=== PATIENT | female | born 1965 | race Caucasian/White ===

== ENCOUNTER 2020-02-20 14:29 | Outpatient (REF) | payer OTHER, SELFPAY ==
[2020-02-20 16:18] LABS: Free T4 (Free Thyroxine) 0.83 ng/dL (0.71-1.85); Vitamin D 25-OH Total 19.6 ng/mL (>30)
== END 2020-02-20 14:30 | disposition home or self-care (01) ==
LOC: HO.LAB 14:29
PROVIDERS: PCP Internal Medicine; Visit Provider Internal Medicine
DX: E04.2 Nontoxic multinodular goiter (principal); E03.9 Hypothyroidism, unspecified; E55.9 Vitamin D deficiency, unspecified
CPT/HCPCS: 36415; 82306; 84439; 84443

== ENCOUNTER 2020-09-22 08:19 | Outpatient (REF) | payer OTHER, SELFPAY | END 2020-09-22 08:20 | disposition home or self-care (01) | LOC: HO.HOSX 08:19 | PROVIDERS: Visit Provider Orthopaedic Surgery | DX: Z13.89 Encounter for screening for other disorder (principal) ==

== ENCOUNTER 2020-10-06 13:52 | Outpatient (REF) | payer OTHER, SELFPAY ==
--- NOTE | ~2020-10-06 | XR_ITS ---
EXAMINATION: XR SHOULDER, RIGHT CLINICAL INFORMATION: Right shoulder pain. COMPARISON: Right shoulder radiographs dated 04/10/2007. TECHNIQUE: AP, Grashey, and axillary views of the right shoulder. FINDINGS: No acute fracture or dislocation. Tiny acromioclavicular and glenohumeral marginal osteophytes. No osseous erosion. No abnormal soft tissue calcification. XR/XR shoulder RT min 2V IMPRESSION: Minimal acromioclavicular and glenohumeral osteoarthritis, new when compared to the prior examination.
== END 2020-10-06 13:53 | disposition home or self-care (01) ==
LOC: HO.HOSX 13:52
PROVIDERS: PCP Internal Medicine; Visit Provider Orthopaedic Surgery
DX: M75.101 Unspecified rotator cuff tear or rupture of right shoulder, not specified as traumatic (principal)
CPT/HCPCS: 20610; 73030; 99202; J1100

== ENCOUNTER 2020-12-03 13:56 | Outpatient (REF) | payer OTHER, SELFPAY ==
--- NOTE | ~2020-12-03 | MM_ITS ---
EXAMINATION: MM SCREENING DIGITAL BREAST TOMOSYNTHESIS, BILATERAL CLINICAL INFORMATION: Screening. Asymptomatic. The lifetime risk of breast cancer based on the Tyrer-Cuzick Model is 8%. COMPARISON: Mammography: 07/25/2018, 07/15/2017, 07/12/2016 TECHNIQUE: Digital breast tomosynthesis is performed in both the craniocaudal and mediolateral oblique views along with computer-aided detection (CAD). Synthesized 2D images are generated from the tomosynthesis. FINDINGS: The breasts are heterogeneously dense, which may obscure small masses (ACR BI-RADS breast composition Category c). There are no significant masses, abnormal calcifications, or other abnormalities. Parenchymal pattern is similar to prior exam. No developing density. There are some scattered punctate and vascular calcifications. Grouped incidental dermal calcifications are again noted overlying 9:00 left breast. MM/MM tomosynthesis screening BI IMPRESSION: No mammographic evidence of malignancy. ASSESSMENT: BI-RADS 2: Benign RECOMMENDATION: Routine annual mammography screening. This patient's information was entered into a reminder system with a target due date for their next mammogram.
== END 2020-12-03 13:57 | disposition home or self-care (01) ==
LOC: HO.MAMMO 13:56
PROVIDERS: PCP Internal Medicine; Visit Provider Internal Medicine
DX: Z12.31 Encounter for screening mammogram for malignant neoplasm of breast (principal)
CPT/HCPCS: 77063; 77067

== ENCOUNTER → 2020-12-22 08:41 | Outpatient (BNVA) | payer OTHER, SELFPAY | PROVIDERS: PCP Internal Medicine; Visit Provider Internal Medicine | DX: E04.2 Nontoxic multinodular goiter (principal); E03.9 Hypothyroidism, unspecified; E55.9 Vitamin D deficiency, unspecified | CPT/HCPCS: Q3014 ==

== ENCOUNTER 2020-12-23 09:12 | Outpatient (REF) | payer OTHER, SELFPAY ==
[2020-12-23 11:48] LABS: Free T4 (Free Thyroxine) 1.06 ng/dL (0.71-1.85); Vitamin D 25-OH Total 19.8 ng/mL (>30)
== END 2020-12-23 09:13 | disposition home or self-care (01) ==
LOC: HO.LAB 09:12
PROVIDERS: PCP Internal Medicine; Visit Provider Internal Medicine
DX: E03.9 Hypothyroidism, unspecified (principal); E04.2 Nontoxic multinodular goiter; E55.9 Vitamin D deficiency, unspecified
CPT/HCPCS: 36415; 82306; 84439; 84443

== ENCOUNTER 2021-02-02 09:53 | Outpatient (REF) | payer OTHER, SELFPAY ==
[2021-02-02 14:17] LABS: CT PCR NOT DETECTED (Not Detect.); NG PCR NOT DETECTED (Not Detect.)
== END 2021-02-02 09:54 | disposition home or self-care (01) ==
LOC: HO.LAB 09:53
PROVIDERS: PCP Internal Medicine; Visit Provider Obstetrics & Gynecology
DX: R10.2 Pelvic and perineal pain (principal); N84.1 Polyp of cervix uteri; N39.0 Urinary tract infection, site not specified; R31.29 Other microscopic hematuria; N95.0 Postmenopausal bleeding
CPT/HCPCS: 57500; 87086; 87491; 87591; 88305; 99212

== ENCOUNTER 2021-02-04 13:57 | Outpatient (REF) | payer OTHER, SELFPAY ==
--- NOTE | ~2021-02-04 | US_ITS ---
EXAMINATION: US THYROID CLINICAL INFORMATION: Nontoxic multinodular goiter. COMPARISON: Ultrasound thyroid 08/09/2019 and 12/16/2017. TECHNIQUE: Linear transducer grayscale and color Doppler examination with attention to the region of the thyroid. FINDINGS: SIZE: Measurements of the solitary left thyroid lobe and nodules are given in sagittal, anteroposterior and transverse dimensions respectively. Right Thyroid Lobe: Surgically absent. Left Thyroid Lobe: 3.9 x 1.7 x 2.3 cm, volume 7.8 mL. Previously 4.3 x 1.9 x 2.2 cm, volume 9.1 mL. Parenchyma: The gland echotexture is heterogeneous. Thyroid vascularity is increased. Isthmus: Surgically absent. Estimated total number of nodules greater than or equal to 1 cm: 2. Education Program Coordinator nodules are described as follows: 1. Location: Left upper. Size: 1.7 x 1.2 x 1.4 cm, volume 1.5 mL. Previously: Not documented on the prior study. Nodule characteristics: Composition: Solid (2). Echogenicity: Isoechoic (1). Shape: Not taller than wide (0). Margins: Smooth (0). Echogenic Foci: None (0). ACR TI-RADS total points: 3 ACR TI-RADS category: 3 2. Location: Left lower pole. Size: 1.5 x 1.3 x 1.4 cm, volume 1.4 mL. Previously: Not documented on the prior study. Nodule characteristics: Composition: Solid/almost completely solid (2). Echogenicity: Isoechoic (1). Shape: Not taller than wide (0). Margins: Ill-defined (0). Echogenic Foci: Macrocalcifications (1). ACR TI-RADS total points: 4 ACR TI-RADS category: 4 NODES: No lymphadenopathy is seen in the tissue surrounding the thyroid gland. US/US thyroid IMPRESSION: 1. Significantly heterogeneous appearance of the thyroid gland. 2. 2 nodules are identified, however evaluation is limited secondary to significant heterogeneity. Recommend continued annual surveillance. ACR TI-RADS RECOMMENDATION REFERENCE: Ultrasound-guided fine-needle aspiration, followup ultrasound, no further follow up. * TR1 (0 point) and TR 2 (2 points): No FNA or follow up * TR3 (3 points): FNA if more than or equal to 2.5 cm in maximum dimension, followup ultrasound in 1, 3 and 5 years if 1.5 to 2.4 cm in maximum dimension. * TR4 (4-6 points): FNA if more than or equal to 1.5 cm in maximum dimension, followup ultrasound in 1, 2, 3 and 5 years if 1 to 1.4 cm in maximum dimension. * TR5 (more than or equal to 7 points): FNA if more than or equal to 1 cm in maximum dimension, followup ultrasound every year for 5 years if 0.5 to 0.9 cm in maximum dimension. * TR3, TR4 or TR5 nodules that are below the size threshold for follow up receive no follow up.
== END 2021-02-04 13:58 | disposition home or self-care (01) ==
LOC: HO.US 13:57
PROVIDERS: Visit Provider Internal Medicine
DX: E04.2 Nontoxic multinodular goiter (principal)
CPT/HCPCS: 76536

== ENCOUNTER 2021-02-18 07:45 | Outpatient (REF) | payer OTHER, SELFPAY ==
[2021-02-18 17:08] LABS: Free T4 (Free Thyroxine) 0.87 ng/dL (0.71-1.85); Vitamin D 25-OH Total 24.9 ng/mL (>30)
== END 2021-02-18 07:46 | disposition home or self-care (01) ==
LOC: HO.LAB 07:45
PROVIDERS: PCP Internal Medicine; Visit Provider Internal Medicine
DX: E03.9 Hypothyroidism, unspecified (principal); E04.2 Nontoxic multinodular goiter; E55.9 Vitamin D deficiency, unspecified
CPT/HCPCS: 36415; 82306; 84439; 84443; Q3014

== ENCOUNTER → 2021-02-19 12:52 | Outpatient (BNVA) | payer OTHER, SELFPAY | PROVIDERS: Visit Provider Obstetrics & Gynecology | DX: N84.1 Polyp of cervix uteri (principal); R31.29 Other microscopic hematuria; N95.0 Postmenopausal bleeding; R10.2 Pelvic and perineal pain | CPT/HCPCS: 99212 ==

== ENCOUNTER 2021-02-23 14:29 | Outpatient (REF) | payer OTHER, SELFPAY ==
--- NOTE | ~2021-02-23 | US_ITS ---
EXAMINATION: US PELVIS CLINICAL INFORMATION: Postmenopausal bleeding COMPARISON: Previous pelvic ultrasound most recent May 2018 TECHNIQUE: Ultrasound of the pelvis is performed using both transabdominal and transvaginal transducers along with Doppler. Transvaginal imaging is performed due to inadequate visualization transabdominally. FINDINGS: The uterus is anteverted and measures 6.9 x 3 x 3.4 cm. No focal uterine lesion is seen. Endometrial thickness is upper normal in size for a postmenopausal patient measuring 0.6 cm. The ovaries are normal-appearing. The right ovary measures 1.8 x 1.3 x 1.3 cm and the left ovary measures 2.1 x 1.3 x 1 cm. There is no fluid in the pelvis. US/US pelvic and transvaginal IMPRESSION: Upper normal thickness endometrium for a postmenopausal patient measuring 0.6 cm. Otherwise unremarkable exam.
== END 2021-02-23 14:30 | disposition home or self-care (01) ==
LOC: HO.US 14:29
PROVIDERS: PCP Internal Medicine; Visit Provider Obstetrics & Gynecology
DX: N95.0 Postmenopausal bleeding (principal)
CPT/HCPCS: 76830; 76856

== ENCOUNTER → 2021-03-09 14:47 | Outpatient (BNVA) | payer OTHER, SELFPAY | PROVIDERS: Visit Provider Obstetrics & Gynecology | DX: N95.0 Postmenopausal bleeding (principal) | CPT/HCPCS: Q3014 ==

== ENCOUNTER 2021-08-04 10:11 | Outpatient (REF) | payer OTHER, SELFPAY ==
--- NOTE | ~2021-08-04 | US_ITS ---
EXAMINATION: US ABDOMEN COMPLETE CLINICAL INFORMATION: Elevated alkaline phosphatase. COMPARISON: CT abdomen and pelvis without contrast every 20 09/26/2017. Ultrasound abdomen complete 06/13/2013. TECHNIQUE: Real-time imaging of the abdominal viscera. FINDINGS: PANCREAS: Normal. ABDOMINAL AORTA: The proximal, mid, and distal segments are normal in caliber. INFERIOR VENA CAVA: Visualized portions are normal. LIVER: The liver is normal in size. The liver contour is normal. Liver echotexture is increased. No focal hepatic lesion. There is no intrahepatic biliary duct dilatation seen. GALLBLADDER: Surgically absent. COMMON BILE DUCT: Normal in caliber measuring 0.4 cm in diameter. RIGHT KIDNEY: There is fullness of the right renal pelvis versus extrarenal pelvis. There are small stones measuring 4 mm in the upper pole and 3 mm in the midpole. No hydronephrosis or focal parenchymal lesions. The kidney measures 9.3 cm in maximum dimension. LEFT KIDNEY: There is a 4 mm stone in the midpole. There is a 7 mm cyst in the lower pole. No hydronephrosis. The kidney measures 9.2 cm in maximum dimension. SPLEEN: Normal. The spleen measures 11.1 cm in maximum dimension. FREE FLUID: None. US/US abdomen complete IMPRESSION: Small bilateral renal stones. Small left renal cyst. Mild fullness of the right renal pelvis versus extrarenal pelvis. Echogenic liver. Differential would include fatty infiltration and hepatocellular disease.
== END 2021-08-04 10:12 | disposition home or self-care (01) ==
LOC: HO.US 10:11
PROVIDERS: PCP Internal Medicine; Visit Provider Internal Medicine
DX: R74.8 Abnormal levels of other serum enzymes (principal)
CPT/HCPCS: 76700

== ENCOUNTER 2021-08-27 09:31 | Outpatient (REF) | payer OTHER, SELFPAY ==
--- NOTE | 2021-08-27 10:22 | PM.OP ---
Brief Operative Note Date of Service: 08/27/21 Pre-op diagnosis: Multinodular Thyroid Procedure: This is doctor Le Sanchez. This is an ultrasound-guided fine-needle aspiration report. Date of Examination: 08/27/2021 Indication: Multinodular Thyroid Porcedure: Procedure was explained to the patient. Alternatives, the risk and benefits were discussed. Written consent was obtained. A time-out was also obtained. After sterile preparation, fine-needle aspiration of a left lower pole 3.5 cm thyroid nodule was performed using direct ultrasound guidance to confirm accurate needle placement. Four aspirations were made using 27 gauge needles. Samples were submitted for cytology. One pass was dedicated for [employer] sequencing applicator sprayer testing. Our attention was then turned to the left upper pole. Fine-needle aspiration of a left upper pole 1.5 cm thyroid nodule was performed using direct ultrasound guidance to confirm accurate needle placement. Four aspirations were made using 27 gauge needles. Samples were submitted for cytology. One pass was dedicated for [employer] Gene sequencing applicator sprayer testing. The patient tolerated the procedure well. Aftercare instructions were provided. Impression: Uncomplicated fine needle aspiration biopsy of a left lower pole 3.5 cm and a left upper pole 1.5 cm thyroid nodule under ultrasound guidance. Of note the L lobe nodule has significant enlarged and we did discuss a left lobectomy today. Surgeon: eL Sanchez, DO Was an Hammersmith Helper used for this Procedure?: No Estimated blood loss (mL): 0
[2021-08-27] MEDS: Lidocaine HCl 1 % MPF 5 ML VIAL SUBCUT (10:44)
[2021-08-27 11:57] LABS: Albumin Level 4.1 g/dL (3.5-5.0); Calcium 9.1 mg/dL (8.4-10.2); Estimated Glomerular Filt Rate 59; Phosphorus 3.3 mg/dL (2.7-4.5)
[2021-08-27 12:17] LABS: Vitamin D 25-OH Total 20.5 ng/mL (>30)
[2021-08-28 11:17] LABS: Calcium (PTHI) 9.3 mg/dL (8.6-10.4); PTHI 60 pg/mL (16-77)
== END 2021-08-27 09:32 | disposition home or self-care (01) ==
LOC: HO.US 09:31
PROVIDERS: Visit Provider Internal Medicine
DX: E04.2 Nontoxic multinodular goiter (principal); E03.9 Hypothyroidism, unspecified; E55.9 Vitamin D deficiency, unspecified
CPT/HCPCS: 10005; 36415; 82040; 82306; 82310; 82565; 83970; 84100; 84439; 84443; 88172; 88173; 88177

== ENCOUNTER 2022-04-05 14:15 | Outpatient (REF) | payer OTHER, SELFPAY ==
[2022-04-05 14:24] LABS: MANUAL DIFF FLAG NO
[2022-04-05 16:02] LABS: Basophils Percent Auto 0.5 % (0-2); Eosinophils Absolute Auto 0.2 X10*3/uL (0.0-0.4); Eosinophils Percent Auto 2.3 % (0-4); Hematocrit 46.7 % (37.0-47.0); Hemoglobin 15.3 g/dl (12.0-16.0); Imm Gran Abs Auto 0.04 X10*3/uL (0.00-0.03); Imm Gran Pct Auto 0.6 % (0.0-0.4); Lymphocytes Absolute Auto 1.9 X10*3/uL (1.2-4.9); Lymphocytes Percent Auto 28.4 % (20-40); Mean Corpuscular HGB Conc 32.8 g/dl (31.0-35.0); Mean Corpuscular Hemoglobin 29.5 pg (27.0-33.0); Mean Platelet Volume 10.3 fL (9.4-12.3); Monocytes Absolute Auto 0.6 X10*3/uL (0.1-1.2); Monocytes Percent Auto 8.6 % (2-11); Neutrophils Absolute Auto 3.9 x10*3/uL (2.0-8.3); Neutrophils Percent Auto 59.6 % (45-73); Platelet Count 227 X10*3/uL (160-400); Red Blood Count 5.19 X10*6/uL (4.20-5.50); Red Cell Distribution Width 13.1 % (11.0-16.0); White Blood Count 6.6 X10*3/uL (4.8-10.8)
[2022-04-05 16:47] LABS: Free T4 (Free Thyroxine) 1.03 ng/dL (0.71-1.85)
[2022-04-05 16:57] LABS: Alanine Aminotransferase 36 U/L (0-31); Albumin Level 4.1 g/dL (3.5-5.0); Alkaline Phosphatase 141 U/L (39-117); Anion Gap 14 (12-20); Aspartate Amino Transferase 24 U/L (5-31); Bilirubin Total 0.4 mg/dL (0.0-1.0); Blood Urea Nitrogen 13 mg/dL (9-16); Calcium 9.4 mg/dL (8.4-10.2); Carbon Dioxide 28 mmol/L (22-29); Chloride 105 mmol/L (96-108); Estimated Glomerular Filt Rate > 60; Ferritin 45 ng/mL (10-250); Glucose Random 90 mg/dL (60-115); Sodium 143 mmol/L (135-145); Thyroid Stimulating Hormone 4.89 uIU/mL (0.32-4.0); Total Protein 6.6 g/dL (6.5-8.0)
== END 2022-04-05 14:16 | disposition home or self-care (01) ==
LOC: HO.LAB 14:15
PROVIDERS: Internal Medicine Medical Oncology; PCP Internal Medicine; Visit Provider Internal Medicine
DX: D50.9 Iron deficiency anemia, unspecified (principal); E03.9 Hypothyroidism, unspecified
CPT/HCPCS: 36415; 80053; 82728; 84439; 84443; 85025

== ENCOUNTER 2022-04-21 20:11 | Emergency (ER) | payer OTHER, SELFPAY ==
--- NOTE | ~2022-04-21 | CT_ITS ---
EXAMINATION: CT CERVICAL SPINE WITHOUT CONTRAST CLINICAL INFORMATION: Fall downstairs. COMPARISON: MR cervical spine 06/30/2017. TECHNIQUE: Contiguous axial imaging was performed of the cervical spine without intravenous administration of contrast. Coronal and sagittal reformats were obtained at the acquisition workstation. This CT examination was performed using dose optimization techniques as appropriate, variously including the following: *Automated exposure control *Adjustment of mA and/or kV according to patient size (this includes techniques or standardized protocols for targeted exams where dose is matched to indication/reason for exam; i.e. extremities or head) *Use of iterative reconstruction technique DLP: 323 mGy-cm FINDINGS: The atlantooccipital and atlantoaxial articulations remain well aligned. Straightening of the normal cervical lordosis. Otherwise, there is anatomic alignment of the vertebral bodies and posterior elements. No evidence of acute fracture or subluxation. Mild multilevel cervical spondylosis. There is no prevertebral soft tissue swelling. Asymmetric enlargement of the left lobe of the thyroid, possibly prior right partial thyroidectomy. The left lobe of the thyroid is heterogeneous with scattered calcifications. Bilateral multilevel prominent cervical lymph nodes measuring up to 0.8 cm in short axis. The lung apices demonstrate no abnormalities. CT/CT cervical spine wo IV con IMPRESSION: 1. No acute cervical spinal fractures or malalignment. 2. Asymmetric enlargement of the left lobe of the thyroid with scattered calcifications. Recommend correlation with an elective targeted ultrasound. 3. Scattered prominent bilateral cervical lymph nodes, nonspecific and possibly reactive.
--- NOTE | ~2022-04-21 | XR_ITS ---
EXAMINATION: XR SHOULDER, LEFT CLINICAL INFORMATION: Left-sided shoulder pain COMPARISON: None available. TECHNIQUE: Two views of the left shoulder. FINDINGS: The bones and soft tissues are normal. No fracture. Glenohumeral and acromioclavicular alignment is anatomic with normal joint space. No abnormal soft tissue calcifications. XR/XR shoulder LT min 2V IMPRESSION: Normal left shoulder.
--- NOTE | ~2022-04-21 | XR_ITS ---
EXAMINATION: XR LUMBOSACRAL SPINE CLINICAL INFORMATION: Midline tenderness to palpation COMPARISON: None available. TECHNIQUE: Three views of the lumbosacral spine. FINDINGS: Mild left convex curvature of the lumbar spine. Vertebral body and disc height is maintained. No significant degenerative changes. No visible spondylolysis or spondylolisthesis. Sacroiliac joints are unremarkable. XR/XR lumbar spine 2-3V IMPRESSION: Mild curvature of the lumbar spine. No acute findings are seen.
--- NOTE | 2022-04-21 20:32 | ED_ITS ---
HPI - Fall General Chief Complaint: Back Pain/Injury <ERICA Vargas - Last Filed: 04/21/22 20:57> Stated Complaint: neck pain from fall <ERICA Vargas - Last Filed: 04/21/22 20:57> Time Seen by Provider: 04/21/22 21:36 <ERICA Vargas - Last Filed: 04/21/22 20:57> Source: patient <Gautam Alcaraz MD - Last Filed: 04/21/22 21:39> Mode of arrival: ambulatory <Gautam Alcaraz MD - Last Filed: 04/21/22 21:39> Limitations: no limitations <ERICA Mulligan - Last Filed: 04/21/22 22:34> History of Present Illness HPI Narrative: This is a 56-year-old female history of iron deficiency anemia hypothyroidism presenting to the emergency department for evaluation of left- sided neck pain, lower back pain status post falling off a small ladder at home. Patient tells me she fell onto her side, she did not hit her head or neck however when she went to get up she moved quickly and since then has been having left-sided neck pain that radiates to around her left shoulder blade. Denies head strike, loss of consciousness. Not on blood thinners. Also reporting lower back pain tells me it is worse with movement better at rest. She also tells me it is worse if she presses on the area. Patient denies IV drug abuse, history of malignancy, numbness, tingling, saddle paresthesias, weakness, changes in ambulation, urinary/bowel incontinence/retention, fevers, chills, chest pain, shortness of breath, headache, vision changes, dizziness. GCS of 15 on arrival. NIH stroke scale 0 <ERCIA Mulligan - Last Filed: 04/21/22 22:34> Related Data Home Medications: Home Medications Medication Instructions Recorded Confirmed acetaminophen 650 mg 650 mg PO Q12H PRN Pain 12/20/19 02/18/21 tablet,extended release loratadine 10 mg tablet 10 mg PO DAILY 12/20/19 02/18/21 mirtazapine 45 mg tablet 45 mg PO DAILY 12/20/19 02/18/21 nortriptyline 50 mg capsule 50 mg PO DAILY 12/20/19 02/18/21 quetiapine 100 mg tablet 100 mg PO DAILY 12/20/19 02/18/21 sumatriptan succinate 100 mg tablet 100 mg PO Q2-4H PRN Headache 12/20/19 02/18/21 sertraline 100 mg tablet 150 mg PO QAM 10/06/20 02/18/21 Previous Rx's Medication Instructions Recorded naproxen 500 mg tablet,delayed 500 mg PO BID PRN for pain #60 tabs 12/22/20 release nitrofurantoin 100 mg PO BID 5 days #10 caps 02/02/21 monohydrate/macrocrystals 100 mg capsule (Macrobid) levothyroxine 50 mcg tablet 50 mcg PO DAILY 30 days #30 tabs 08/27/21 lidocaine 5 % topical patch 1 patch topical DAILY PRN pain #15 04/21/22 ea morphine 15 mg immediate release 15 mg PO Q6H PRN pain 5 days #10 04/21/22 tablet tabs prednisone 20 mg tablet 40 mg PO DAILY 5 days #10 tabs 04/21/22 <ERICA Vargas - Last Filed: 04/21/22 20:57> Allergies/Adverse Reactions: Allergies Allergy/AdvReac Type Severity Reaction Status Date / Time acetaminophen [Vicodin] Allergy Unknown unk Verified 04/21/22 20:36 Penicillins AdvReac Mild HYPERTENSIO Verified 04/21/22 20:36 N hydrocodone [From VICODIN] AdvReac Unknown HIGH BP Verified 04/21/22 20:36 <ERICA Vargas Last Filed: 04/21/22 20:57> Review of Systems Review of Systems: Constitutional : No Weight loss, No Fever, No Chills, ENT/Mouth : No Hearing loss, No Ear Pain, No Nasal Congestion, No Sinus Pain, No Hoarseness, No sore throat, No Rhinorrhea, No Swallowing Difficulty Cardiovascular : No Chest Pain, No SOB Respiratory : No Cough, No Dyspnea Gastrointestinal : No Nausea, No Vomiting, No Diarrhea, No abdominal Pain, No Hematochezia, No Melena Genitourinary : No Dysuria, No Urinary Frequency, No Hematuria, No Urinary Incontinence, Musculoskeletal : positive back pain, + neck pain Skin : No Skin Lesions, No rash Neuro : No Weakness, No Numbness, No Paresthesias, no loss of bowel or bladder incontinence, no saddle anesthesia <ERICA Mulligan - Last Filed: 04/21/22 22:34> Yes all other systems are reviewed and are negative <ERICA Mulligan - Last Filed: 04/21/22 22:34> FORMERLY [facility] Past Medical History Attestation statement: The following information was validated with the patient. <ERICA Mulligan - Last Filed: 04/21/22 22:34> Source: old records reviewed and nursing notes reviewed <ERICA Mulligan - Last Filed: 04/21/22 22:34> Medical History: Medical History Hypothyroidism Multinodular thyroid Vitamin D deficiency <ERICA Vargas - Last Filed: 04/21/22 20:57> Surgical History: Surgical History Hx of appendectomy Hx of cholecystectomy Hx of epicondylectomy Hx of foot surgery Hx of thyroidectomy Tubal ligation status <ERICA Vargas - Last Filed: 04/21/22 20:57> Family History Family History: Family History Father No problems noted. Mother Breast cancer Hypertension <EIRCA Vargas - Last Filed: 04/21/22 20:57> Social History Social History: Social History Alcohol intake: never Patient Tobacco Use Status: Never used Tobacco Advance Directives: No Advance Directives Information Provided: No <ERICA Vargas - Last Filed: 04/21/22 20:57> Physical Exam Vital Signs: Vital Signs: Last Vital Signs Temp 98.2 F 04/21/22 20:49 Pulse 82 04/21/22 20:49 Resp 16 04/21/22 20:49 BP 155/81 H 04/21/22 20:49 Pulse Ox 99 04/21/22 20:49 O2 Del Method 04/21/22 20:49 BMI result Body Mass Index 21.2 <ERICA Vargas - Last Filed: 04/21/22 20:57> Vital Signs: Last Vital Signs Temp 98.2 F 04/21/22 20:49 Pulse 82 04/21/22 20:49 Resp 16 04/21/22 20:49 BP 155/81 H 04/21/22 20:49 Pulse Ox 99 04/21/22 20:49 O2 Del Method 04/21/22 20:49 BMI result Body Mass Index 21.2 <Gautam Alcaraz MD - Last Filed: 04/21/22 21:39> Vital Signs: Last Vital Signs Temp 98.2 F 04/21/22 20:49 Pulse 82 04/21/22 20:49 Resp 16 04/21/22 20:49 BP 155/81 H 04/21/22 20:49 Pulse Ox 99 04/21/22 20:49 O2 Del Method 04/21/22 20:49 BMI result Body Mass Index 21.2 Vital signs stable <ERICA Mulligan - Last Filed: 04/21/22 22:34> Appearance: Alert.? Oriented X3.? No acute distress.? Head: Normocephalic, atraumatic, no step-offs or deformities Eyes: Pupils equal, round and reactive to light.? Extraocular movements intact and pain-free. Neck: Normal inspection.? No midline tenderness to cervical spine. Pain with palpation to left-sided paraspinous muscles in the cervical region down into the left trapezius region. CVS: Normal heart rate and rhythm.? Pulses normal.? Respiratory: No respiratory distress.? Breath sounds normal.? Abdomen: Soft and nontender.? Skin: Skin warm and dry.? Normal skin color.? Normal skin turgor.? Extremities: No lower extremity edema.? No calf ttp. 5/5 strength to bilateral upper and lower extremities Back: No midline tenderness, no C-spine tenderness, full range of motion, no CVA tenderness bilaterally + discomfort with palpation of bilateral lower lumbar paraspinous muscles. I was unable to appreciate any midline tenderness or step- offs or deformities. Neuro: Oriented X 3.? No motor deficit.? No sensory deficit. CN 2-12 intact patient ambulating with steady gait normal coordination. No saddle paresthesias. 2+ patellar reflexes equal bilateral. Normal [id number]-[id number], vlsi-me-bfjm. Negative Romberg and pronator drift. <ERICA Mulligan - Last Filed: 04/21/22 22:34> Course Course Course Narrative: SHARON--56yo F w/PMHx hypothyroid c/o L sided neck pain & low back pain s/p falling down 4-5 stairs last night. Reports assoc neck stiffness. Denies head trauma or LOC. Denies abd pain, N/V, incontinence or retention + lumbar midline tenderness noted and left trapezius/MSK tenderness. No focal deficits. No red flag symptoms Cervical spine CT, lumbar x-ray ordered. Patient will need pain control <ERICA Vargas - Last Filed: 04/21/22 20:57> Reevaluation(s) Reevaluation #1: X-ray of the lumbar spine with mild curvature of the lumbar spine, no acute fractures or dislocations seen. Again based off of my exam I do not suspect fracture, dislocation, compression fracture, cauda equina. No need for further imaging of lumbar region. CT of cervical spine with no acute cervical fractures or malalignment. Asymmetric enlargement of the left lobe of the thyroid with calcifications. Scattered prominent bilateral cervical lymph nodes. Educated patient on finding. She will follow-up with her PCP. Medications will be given for pain control. Will give her a phone number for [facility]. Educated patient on diagnosis and treatment plan, answered all question, patient verbalizes understanding. At this time patient will be discharged home, advised to return with new or worsening symptoms. Educated on worrisome signs and symptoms and when to return. At this time I feel comfortable discharge home. <ERICA Mulligan - Last Filed: 04/21/22 22:34> Time: 21:49 <ERICA Mulligan - Last Filed: 04/21/22 22:34> Reevaluation #2: Normal left shoulder. <ERICA Mulligan - Last Filed: 04/21/22 22:34> Medical Decision Making Medical Decision Making [facility] Narrative: 9 56-year-old female presents status post falling off ladder with complaints of left-sided neck pain and bilateral lower paraspinous tenderness in the lumbar region. Patient's fall cardia stir day. No head strike, loss of consciousness, not on blood thinners. No red flag symptoms for back pain. Physical exam significant for Pain with palpation to left-sided paraspinous muscles in the cervical region down into the left trapezius region. There is also bilateral lumbar paraspinous tenderness however no midline tenderness to lumbar region. No saddle paresthesias. Ambulatory with steady gait. I suspect cervical sprain/strain. Also concerns for lumbar paraspinous spasms. I do not suspect fracture, dislocation, compression fracture, cord compression, epidural abscess, cauda equina. No head strike, headache, vision changes or dizziness no signs of stroke, posterior stroke or intracranial hemorrhage. Patient denies injuries elsewhere, low suspicion for injuries chest, abdomen and pelvis. Plan at this time, imaging. <ERICA Mulligan Last Filed: 04/21/22 22:34> Differential Diagnosis Differential Diagnoses: The differential diagnosis associated with the presentation includes <ERICA Mulligan Last Filed: 04/21/22 22:34> I suspect cervical sprain/strain. Also concerns for lumbar paraspinous spasms. I do not suspect fracture, dislocation, compression fracture, cord compression, epidural abscess, cauda equina. No head strike, headache, vision changes or dizziness no signs of stroke, posterior stroke or intracranial hemorrhage. Patient denies injuries elsewhere, low suspicion for injuries chest, abdomen and pelvis. <ERICA Mulligan Last Filed: 04/21/22 22:34> Admission/Observation Consideration of admission/observation: Escalation of care including admission/observation considered <ERICA Mulligan Last Filed: 04/21/22 22:34> Not indicated <ERICA Mulligan Last Filed: 04/21/22 22:34> Independent Interpretation I performed an independent interpretation of an: Plain X-Ray (XR/XR lumbar spine 2-3V IMPRESSION: Mild curvature of the lumbar spine. No acute findings are seen.) and CT Scan (CT/CT cervical spine wo IV con IMPRESSION: 1. No acute cervical spinal fractures or malalignment. 2. Asymmetric enlargement of the left lobe of the thyroid with scattered calcifications. Recommend correlation with an elective targeted ultrasound. 3. Scattered prominent bilateral cervical lymph no) <ERICA Mulligan Last Filed: 04/21/22 22:34> Radiology Impression Discussion of test interpretation with radiology: I have reviewed the radiologist's reading. <ERICA Mulligan - Last Filed: 04/21/22 22:34> Core Measures AMI core measures followed: Yes <ERICA Mulligan - Last Filed: 04/21/22 22:34> Measure exclusions: not indicated <ERICA Mulligan - Last Filed: 04/21/22 22:34> Critical Care Time Critical Care Time Critical Care Time: No <ERICA Mulligan - Last Filed: 04/21/22 22:34> Discharge Plan Discharge Clinical Impression: Cervical strain, Lumbar paraspinal muscle spasm <ERICA Vargas Last Filed: 04/21/22 20:57> Patient Disposition: Home, Self-Care <ERICA Vargas Last Filed: 04/21/22 20:57> Instructions: Cervical Strain (ED), Muscle Spasm (ED) <ERICA Vargas - Last Filed: 04/21/22 20:57> Additional Instructions: Take your medications as prescribed. If you were prescribed antibiotics today, it is important that you take your medication to their entirety, do not skip any doses, do not finish them early. Follow-up with your primary care provider this week. Return to the emergency department with new or worsening symptoms. Such as fevers, chills, chest pain, shortness of breath, nausea, vomiting, dizziness, headache, vision changes, lethargy In case of emergency call 911 A narcotic has been sent to your pharmacy please take this as prescribed. Do not take more than the prescribed dose. Narcotic medications can cause addiction. Please do not mix them with alcohol. Do not take them while driving or operating machinery. Do not take them with any other narcotics. Do not s hare them with friends or family. They can cause constipation. Take them only for severe pain. You can take ibuprofen for ccsv-sb-kejlcktx pain. Only take narcotic for severe pain [place] ender medicamentos seg?n lo prescrito. Si le recetaron antibi?ticjori delong, es importante que tome davis medicamento en davis totalidad, no se salte ninguna dosis, no los termine antes de tiempo. Seguimiento con davis proveedor de atenci?n primaria esta semana. Regrese al departamento de emergencias con s?ntomas nuevos o que empeoran. Meseret fiebre, escalofr?os, dolor de pecho, dificultad para respirar, n?useas, v?mitos, mareos, dolor de waylon, cambios en la visi?n, letargo En tanner de emergencia llama al 911 [place] enviado un narc?kwaku a davis farmacia, t?contreras seg?n lo prescrito. No tome m?s de la dosis prescrita. Los medicamentos narc?ticos pueden causar adicci?n. Por favor, no los mezcle con alcohol. No los tome mientras conduce u opera maquinaria. No los tome con gino?n otro narc?kwaku. No los comparta con amigos o familiares. Pueden causar estre?imiento. T?melos s?lo para el dolor intenso. Puede ne ibuprofeno para el dolor leve a moderado. Solo tome narc?ticos para el dolor alicia CT/CT cervical spine wo IV con IMPRESSION: 1.? No acute cervical spinal fractures or malalignment. 2.? Asymmetric enlargement of the left lobe of the thyroid with scattered calcifications. Recommend correlation with an elective targeted ultrasound. 3.? Scattered prominent bilateral cervical lymph nodes, nonspecific and possibly reactive. ?XR/XR lumbar spine 2-3V IMPRESSION: Mild curvature of the lumbar spine. No acute findings are seen. <ERICA Vargas - Last Filed: 04/21/22 20:57> Prescriptions: New morphine 15 mg tablet 15 mg PO Q6H PRN (Reason: pain) 5 Days Qty: 10 0RF Rx Instructions: Partial Fill upon patient request. prednisone 20 mg tablet 40 mg PO DAILY 5 Days Qty: 10 0RF lidocaine 5 % adhesive patch,medicated 1 patch topical DAILY PRN (Reason: pain) Qty: 15 0RF Rx Instructions: leave on most painful area for up to 12 hrs No Action naproxen 500 mg tablet,delayed release (DR/EC) 500 mg PO BID PRN (Reason: for pain) Qty: 60 1RF levothyroxine 50 mcg tablet 50 mcg PO DAILY 30 Days Qty: 30 3RF quetiapine 100 mg tablet 100 mg PO DAILY sumatriptan succinate 100 mg tablet 100 mg PO Q2-4H PRN (Reason: Headache) Rx Instructions: do not exceed 2 doses per 24 hrs mirtazapine 45 mg tablet 45 mg PO DAILY nortriptyline 50 mg capsule 50 mg PO DAILY loratadine 10 mg tablet 10 mg PO DAILY acetaminophen 650 mg tablet extended release 650 mg PO Q12H PRN (Reason: Pain) sertraline 100 mg tablet 150 mg PO QAM nitrofurantoin monohyd/m-cryst [Macrobid] 100 mg capsule 100 mg PO BID 5 Days Qty: 10 0RF <ERICA Vargas - Last Filed: 04/21/22 20:57> Referrals: [facility] [Provider Group] - 1 day Giana Isbell MD [Primary Care Provider] - 2 days <ERICA Vargas - Last Filed: 04/21/22 20:57> Interventions: ED Discharge Assessment Last Done: 04/21/22 22:09 <ERICA Vargas - Last Filed: 04/21/22 20:57> Discharge Date/Time: 04/21/22 22:10 <ERICA Vargas - Last Filed: 04/21/22 20:57>
[2022-04-21 20:49] VITALS: BP 155/81; PULSE 82; RESP 16; TEMP 36.8; O2SAT 99; BMI 21.2
== END 2022-04-21 22:10 | disposition home or self-care (01) ==
PROVIDERS: Emergency Provider Emergency Medicine; PCP Internal Medicine
DX: M54.2 Cervicalgia (principal); M54.50 Low back pain, unspecified; M25.512 Pain in left shoulder; Z79.899 Other long term (current) drug therapy
CPT/HCPCS: 72100; 72125; 73030; 99282; 99284

== ENCOUNTER 2022-04-26 14:44 | Outpatient (REF) | payer OTHER, SELFPAY ==
--- NOTE | ~2022-04-26 | US_ITS ---
EXAMINATION: US THYROID CLINICAL INFORMATION: Nontoxic multinodular goiter. COMPARISON: Ultrasound thyroid 02/04/2021. US-guided thyroid biopsy 08/27/2021. TECHNIQUE: Linear transducer grayscale and color Doppler examination with attention to the region of the thyroid. FINDINGS: SIZE: Measurements of the solitary left thyroid lobe and nodules are given in sagittal, anteroposterior and transverse dimensions respectively. Right Thyroid Lobe: Surgically absent. Left Thyroid Lobe: 3.7 x 1.5 x 1.7 cm, volume 4.8 mL. Previously 3.9 x 1.7 x 2.3 cm, volume 7.8 mL. Parenchyma: The gland echotexture is heterogeneous. Thyroid vascularity is increased. Isthmus: 0.7 cm in maximum AP dimension. Previously not measured. Estimated total number of nodules greater than or equal to 1 cm: 2. [employer] nodules are described as follows: 1. Location: Left superior. Size: 1.4 x 0.9 x 1.0 cm, volume 0.6 mL. Previously: 1.7 x 1.2 x 1.4 cm, volume 1.5 mL. Nodule characteristics: Composition: Solid (2). Echogenicity: Hypoechoic (2). Shape: As tall as wide (0). Margins: Smooth (0). Echogenic Foci: None (0). ACR TI-RADS total points: 4 Previous: 3 ACR TI-RADS category: 4 Previous: 3 Significant change in size (>/= 20% in 2 dimensions and minimal increase of 2 mm or 50% or greater increase in volume): No Change in features: Yes Change in ACR TI-RADS risk category: Yes 2. Location: Left inferior. Size: 1.6 x 1.1 x 1.6 cm, volume 1.5 mL. Previously: 1.5 x 1.3 x 1.4 cm, volume 1.4 mL. Nodule characteristics: Composition: Mixed cystic and solid (1). Echogenicity: Isoechoic (1). Shape: Not taller than wide (0). Margins: Smooth (0). Echogenic Foci: Macrocalcifications (1). ACR TI-RADS total points: 3 Previous: 4 ACR TI-RADS category: 3 Previous: 4 Significant change in size (>/= 20% in 2 dimensions and minimal increase of 2 mm or 50% or greater increase in volume): No Change in features: Yes Change in ACR TI-RADS risk category: Yes 3. Location: Isthmus. Size: 0.6 x 0.7 x 0.7 cm, volume 0.2 mL. Previously: Not seen on the previous study. Nodule characteristics: Composition: Solid (2). Echogenicity: Isoechoic (1). Shape: Not taller than wide (0). Margins: Smooth (0). Echogenic Foci: None (0). ACR TI-RADS total points: 3 ACR TI-RADS category: 3 NODES: No lymphadenopathy is seen in the tissue surrounding the thyroid gland. US/US thyroid IMPRESSION: A 1.4 cm TR 4 left superior thyroid nodule is increased in size. Recommend one-year follow-up thyroid ultrasound. A 1.6 TR 3 thyroid nodule is decreased in size, attention on follow-up imaging. A 0.7 cm TR 3 left thyroid nodule is new from prior, and does not meet criteria for follow-up given size less than 1.5 cm.. ACR TI-RADS RECOMMENDATION REFERENCE: Ultrasound-guided fine-needle aspiration, followup ultrasound, no further follow up. * TR1 (0 point) and TR2 (2 points): No FNA or follow up. * TR3 (3 points): FNA if more than or equal to 2.5 cm in maximum dimension, followup ultrasound in 1, 3 and 5 years if 1.5 to 2.4 cm in maximum dimension. * TR4 (4-6 points): FNA if more than or equal to 1.5 cm in maximum dimension, followup ultrasound in 1, 2, 3 and 5 years if 1 to 1.4 cm in maximum dimension. * TR5 (more than or equal to 7 points): FNA if more than or equal to 1 cm in maximum dimension, followup ultrasound every year for 5 years if 0.5 to 0.9 cm in maximum dimension. * TR3, TR4 or TR5 nodules that are below the size threshold for followup receive no follow up.
== END 2022-04-26 14:45 | disposition home or self-care (01) ==
LOC: HO.US 14:44
PROVIDERS: PCP Internal Medicine; Visit Provider Internal Medicine
DX: E04.2 Nontoxic multinodular goiter (principal)
CPT/HCPCS: 76536

== ENCOUNTER 2022-06-30 10:40 | Outpatient (REF) | payer OTHER, SELFPAY ==
[2022-06-30 13:37] LABS: Albumin Level 4.1 g/dL (3.5-5.0); Calcium 9.5 mg/dL (8.4-10.2)
[2022-06-30 13:59] LABS: Free T4 (Free Thyroxine) 0.97 ng/dL (0.71-1.85); Thyroid Stimulating Hormone 2.51 uIU/mL (0.32-4.0); Vitamin D 25-OH Total 25.2 ng/mL (>30)
[2022-07-01 15:44] LABS: Calcium (PTHI) 9.3 mg/dL (8.6-10.4); PTHI 67 pg/mL (16-77)
== END 2022-06-30 10:41 | disposition home or self-care (01) ==
LOC: HO.LAB 10:40
PROVIDERS: PCP Internal Medicine; Visit Provider Internal Medicine
DX: E04.2 Nontoxic multinodular goiter (principal); E03.9 Hypothyroidism, unspecified; E55.9 Vitamin D deficiency, unspecified
CPT/HCPCS: 36415; 82040; 82306; 82310; 83970; 84439; 84443; 99212

== ENCOUNTER 2022-07-17 12:36 | Inpatient (IN) | payer OTHER, SELFPAY ==
--- NOTE | ~2022-07-17 | XR_ITS ---
EXAMINATION: XR CHEST CLINICAL INFORMATION: Shortness of breath COMPARISON: Previous chest x-ray August 2017 TECHNIQUE: 2 views of the chest were obtained. FINDINGS: No significant abnormality is noted involving the heart, lungs, mediastinum, bony thorax or soft tissues. XR/XR chest 2V IMPRESSION: Unremarkable examination.
--- NOTE | ~2022-07-17 | US_ITS ---
EXAMINATION: US ABDOMEN LIMITED CLINICAL INFORMATION: Abnormal liver infarction tests with pain.. COMPARISON: Abdominal ultrasound of 08/04/2021 and selected images of the abdomen and pelvic CT scan of 04/06/2017 TECHNIQUE: Real-time imaging of the right upper quadrant abdominal viscera. The examination is somewhat technically limited by presence of shadowing from the bowel gas. FINDINGS: PANCREAS: Obscured from visualization by overlying bowel gas. LIVER: The liver is normal in size and contour. There is increased echogenicity of the liver parenchyma consistent with steatosis. Evaluation for focal hepatic lesion in the setting of underlying steatosis is limited however no obvious focal liver lesion is noted. No intrahepatic biliary ductal dilatation. GALLBLADDER: Surgically absent. COMMON BILE DUCT: Normal in caliber measuring 0.7 cm in diameter. No filling defect is noted in the visualized common bile duct. RIGHT KIDNEY: Normal. No hydronephrosis. No renal calculi or focal parenchymal lesions. Stable mildly prominent right extrarenal pelvis. The kidney measures 9.8 cm in maximum dimension. FREE FLUID: None. US/US abdomen limited IMPRESSION: Hepatic steatosis. Status post cholecystectomy. No biliary ductal dilatation.
--- NOTE | ~2022-07-17 | MR_ITS ---
EXAMINATION: MR ABDOMEN WITHOUT CONTRAST CLINICAL INFORMATION: Acute hepatitis. Abdominal pain. COMPARISON: Previous ultrasound of the abdomen and CT of the abdomen and pelvis from yesterday TECHNIQUE: MR abdomen is performed without gadolinium contrast. MRCP sequences were performed. FINDINGS: LUNG BASES: The visualized lung bases are unremarkable. LIVER, GALLBLADDER, AND BILIARY TREE: The liver is normal in size and contour. There is mild fatty infiltration of the liver. No focal liver lesion. No intrahepatic biliary duct dilatation. No focal hepatic lesion or biliary ductal dilatation is present. The gallbladder has been removed. No fluid collection in the gallbladder fossa. Intra and extrahepatic bile ducts are normal in caliber with the CBD measuring 4 mm. No common bile duct stone seen. PANCREAS: Unremarkable. SPLEEN: Unremarkable. ADRENAL GLANDS: Unremarkable. KIDNEYS AND URETERS: The kidneys are normal in size and shape. No hydronephrosis. No perinephric stranding. Small 1 cm cyst in the lower pole of the left kidney. No imaging follow-up recommended. GASTROINTESTINAL TRACT: No bowel obstruction. No ascites or fluid collection. ABDOMINAL WALL: No significant hernia is appreciated. LYMPH NODES: No lymphadenopathy. VASCULAR: Unremarkable. OSSEOUS STRUCTURES: Marrow signal normal. MR/MR MRCP IMPRESSION: Mild fatty infiltration of the liver. Normal caliber intrahepatic extrahepatic bile ducts. No common bile duct stone
--- NOTE | ~2022-07-17 | CT_ITS ---
EXAMINATION: CT ABDOMEN AND PELVIS WITHOUT CONTRAST CLINICAL INFORMATION: Elevated LFTs and abdominal pain. COMPARISON: Abdominal ultrasound 07/17/2022. CT abdomen and pelvis . TECHNIQUE: Multidetector volumetric imaging was performed from the superior aspect of the liver through the pubic symphysis. Sagittal and coronal reformatted images were obtained on the technologist's workstation. This CT examination was performed using dose optimization techniques as appropriate, variously including the following: *Automated exposure control *Adjustment of mA and/or kV according to patient size (this includes techniques or standardized protocols for targeted exams where dose is matched to indication/reason for exam; i.e. extremities or head) *Use of iterative reconstruction technique DLP: 461 mGy-cm FINDINGS: LUNG BASES: The visualized lung bases are unremarkable. LIVER, GALLBLADDER, AND BILIARY TREE: Fatty liver. No morphologic cirrhosis. No ductal dilatation. Cholecystectomy. PANCREAS: No discrete mass. No ductal dilatation. No surrounding inflammatory changes. SPLEEN: Unremarkable. ADRENAL GLANDS: No adrenal mass. KIDNEYS AND URETERS: Punctate nonobstructing calculus in the upper right kidney. No discrete renal mass. No hydroureteronephrosis. BLADDER: Unremarkable. GASTROINTESTINAL TRACT: The small bowel is normal in caliber. Mild sigmoid diverticulosis. ABDOMINAL WALL: Small fat-containing umbilical hernia. LYMPH NODES: Normal. VASCULAR: No aortic aneurysm. PELVIC VISCERA: The uterus and adnexa are unremarkable. No suspicious osseous lesions. OSSEOUS STRUCTURES: Unremarkable. CT/CT abdomen pelvis wo IV con IMPRESSION: Fatty liver. No biliary ductal dilatation. Punctate nonobstructing calculus right upper kidney. Mild sigmoid diverticulosis. Fleischner guidelines were followed.
--- NOTE | 2022-07-17 12:38 | ECG_ITS ---
Test Reason : chest pain Blood Pressure : / mmHG Vent. Rate : 083 BPM Atrial Rate : 083 BPM P-R Int : 152 ms QRS Dur : 082 ms QT Int : 382 ms P-R-T Axes : 050 038 056 degrees QTc Int : 448 ms Normal sinus rhythm Normal ECG When compared with ECG of 02-SEP-2017 22:37, No significant change was found Referred By: Generic ED Physician Electronically Signed By:Chucky Hughes
--- NOTE | 2022-07-17 12:57 | ED_ITS ---
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 Yesterday epigastric pain now it has moved into her chest, worse after drinking gingerale. The pain is still bad, upper abdomen and lower chest. Patient states that her gallbladder was removed. Epigastric pain and chest pain Related Data Home Medications Medication Instructions Recorded Confirmed acetaminophen 650 mg 650 mg PO Q12H PRN Pain 12/20/19 06/30/22 tablet,extended release loratadine 10 mg tablet 10 mg PO DAILY 12/20/19 06/30/22 mirtazapine 45 mg tablet 45 mg PO DAILY 12/20/19 06/30/22 nortriptyline 50 mg capsule 50 mg PO DAILY 12/20/19 06/30/22 quetiapine 100 mg tablet 100 mg PO DAILY 12/20/19 06/30/22 sumatriptan succinate 100 mg tablet 100 mg PO Q2-4H PRN Headache 12/20/19 06/30/22 sertraline 100 mg tablet 150 mg PO QAM 10/06/20 06/30/22 levothyroxine 50 mcg tablet 100 mcg PO DAILY 06/30/22 06/30/22 Previous Rx's Medication Instructions Recorded naproxen 500 mg tablet,delayed 500 mg PO BID PRN for pain #60 tabs 12/22/20 release nitrofurantoin 100 mg PO BID 5 days #10 caps 02/02/21 monohydrate/macrocrystals 100 mg capsule (Macrobid) lidocaine 5 % topical patch 1 patch topical DAILY PRN pain #15 04/21/22 ea morphine 15 mg immediate release 15 mg PO Q6H PRN pain 5 days #10 04/21/22 tablet tabs prednisone 20 mg tablet 40 mg PO DAILY 5 days #10 tabs 04/21/22 Allergies Allergy/AdvReac Type Severity Reaction Status Date / Time acetaminophen [Vicodin] Allergy Unknown unk Verified 07/17/22 12:58 Penicillins AdvReac Mild HYPERTENSIO Verified 07/17/22 12:58 N hydrocodone [From VICODIN] AdvReac Unknown HIGH BP Verified 07/17/22 12:58 Review of Systems Review of Systems: Yes all other systems are reviewed and are negative Gastrointestinal: Comments: epigastric pain and chest pain not eating PMFSH Past Medical History Medical History Hypothyroidism Multinodular thyroid Vitamin D deficiency Surgical History Hx of appendectomy Hx of cholecystectomy Hx of epicondylectomy Hx of foot surgery Hx of thyroidectomy Tubal ligation status Family History Family History Father No problems noted. Mother Breast cancer Hypertension Social History Social History Alcohol intake: never Patient Tobacco Use Status: Never used Tobacco Advance Directives: No Advance Directives Information Provided: Yes Physical Exam Vital Signs: Vital Signs: Last Vital Signs Temp 98.5 F 07/17/22 14:44 Pulse 82 07/17/22 14:44 Resp 20 07/17/22 14:44 BP 175/94 H 07/17/22 14:44 Pulse Ox 100 07/17/22 14:44 O2 Del Method Room Air 07/17/22 14:44 BMI result Body Mass Index 28.3 Course Course Course Narrative: RME - 57 yo Estonian speaking female with history of anemia, hypothyroidism who presents to the ER for evaluation of constant 10/10 pain in her lower chest, below her ribs that started yesterday after drinking soda. pain is associated with SOB. worse with palpation. Plan: EKG, labs, CXR Medications Administered Generic Name Dose Route Start Last Admin Trade Name Freq PRN Reason Stop Dose Admin Sodium Chloride 1,000 mls @ 125 mls/hr 07/17/22 15:15 07/17/22 15:23 Ns IVCONT 125 mls/hr .Q8H JACOB Administration Discontinued Medications Generic Name Dose Route Start Last Admin Trade Name Freq PRN Reason Stop Dose Admin Morphine Sulfate 4 mg 07/17/22 15:04 07/17/22 15:33 Morphine Sulfate 4 Mg/Ml Cartridge IVPUSH 07/17/22 15:05 4 mg ONCE ONE Administration Protocol Ondansetron HCl 4 mg 07/17/22 15:04 07/17/22 15:32 Ondansetron Hcl 4 Mg/2 Ml Vial IVPUSH 07/17/22 15:05 4 mg ONCE ONE Administration Pantoprazole Sodium 40 mg 07/17/22 15:04 07/17/22 15:32 Pantoprazole Sodium 40 Mg/10 Ml Vial IVPUSH 07/17/22 15:05 40 mg ONCE ONE Administration Medical Decision Making Differential Diagnosis Differential Diagnoses: The differential diagnosis associated with the presentation includes (bilary colic, chest pain, hepatitis, CBD stone were all considered) Admission/Observation Consideration of admission/observation: Escalation of care including admission/observation considered (In a 57 yo with chest pain and severe epigastric pain admission was considered) Consult Healthcare Provider Management of the patient was discussed with: Hospitalist Lab Data MDM Lab Attestation statement: I reviewed the patient's lab results. 07/17/22 13:15 07/17/22 13:15 Labs: Lab Results 07/17/22 07/17/22 07/17/22 Range/Units 13:15 13:15 13:15 WBC 7.0 (4.8-10.8) X10*3/uL RBC 5.43 (4.20-5.50) X10*6/uL Hgb 16.4 H (12.0-16.0) g/dl Hct 48.9 H (37.0-47.0) % MCV 90.1 (80.0-98.0) fL MCH 30.2 (27.0-33.0) pg MCHC 33.5 (31.0-35.0) g/dl RDW 13.2 (11.0-16.0) % Plt Count 227 (160-400) X10*3/uL MPV 9.4 (9.4-12.3) fL Immature Gran % (Auto) 0.4 (0.0-0.4) % Neut % (Auto) 80.7 H (45-73) % Lymph % (Auto) 11.3 L (20-40) % [place] % (Auto) 7.0 (2-11) % Eos % (Auto) 0.3 (0-4) % Baso % (Auto) 0.3 (0-2) % Lymph # (Auto) 0.8 L (1.2-4.9) X10*3/uL [place] # (Auto) 0.5 (0.1-1.2) X10*3/uL Eos # (Auto) 0.0 (0.0-0.4) X10*3/uL Baso # (Auto) 0.0 (0.0-0.2) X10*3/uL Abs Immat Gran (auto) 0.03 (0.00-0.03) X10*3/uL Absolute Neuts (auto) 5.6 (2.0-8.3) x10*3/uL Absolute Nucleated RBC 0.000 (0.0-0.012) X10*3/uL Nucleated RBC % (auto) 0.0 (0.0-0.2) /100WBC Sodium 143 (135-145) mmol/L Potassium 4.0 (3.3-5.1) mmol/L Chloride 106 (96-108) mmol/L Carbon Dioxide 27 (22-29) mmol/L Anion Gap 14 (12-20) BUN 12 (9-16) mg/dL Creatinine 0.87 (0.5-1.4) mg/dL Estim Creat Clear Calc 60.4 Estimated GFR > 60 Random Glucose 138 H (60-115) mg/dL Calcium 9.6 (8.4-10.2) mg/dL Magnesium 2.0 (1.6-2.6) mg/dL Total Bilirubin 2.7 H (0.0-1.0) mg/dL Direct Bilirubin 1.6 H (0.0-0.5) mg/dL AST 847 H (5-31) U/L ALT 608 H (0-31) U/L Alkaline Phosphatase 220 H (39-117) U/L Troponin I High Sens < 2.7 (<3.5-17.0) ng/L Total Protein 7.2 (6.5-8.0) g/dL Albumin 4.4 (3.5-5.0) g/dL Lipase 37 (8-78) U/L Urine Color Urine Appearance Urine pH (5.0-9.0) Ur Specific [place] (1.005-1.025) Urine Protein (Neg-Trace) mg/dL Urine Glucose (UA) (Negative) mg/dL Urine Ketones (Negative) mg/dL Urine Blood (Negative) Urine Nitrite (Negative) Ur Leukocyte Esterase (Negative) Urine RBC (0-2) /HPF Urine WBC (0-5) /HPF Ur Squamous Epith Cells (0-2) /HPF Urine Bacteria (None Seen) Hyaline Casts (0-2) /LPF 07/17/22 Range/Units 15:34 WBC (4.8-10.8) X10*3/uL RBC (4.20-5.50) X10*6/uL Hgb (12.0-16.0) g/dl Hct (37.0-47.0) % MCV (80.0-98.0) fL MCH (27.0-33.0) pg MCHC (31.0-35.0) g/dl RDW (11.0-16.0) % Plt Count (160-400) X10*3/uL MPV (9.4-12.3) fL Immature Gran % (Auto) (0.0-0.4) % Neut % (Auto) (45-73) % Lymph % (Auto) (20-40) % [place] % (Auto) (2-11) % Eos % (Auto) (0-4) % Baso % (Auto) (0-2) % Lymph # (Auto) (1.2-4.9) X10*3/uL [place] # (Auto) (0.1-1.2) X10*3/uL Eos # (Auto) (0.0-0.4) X10*3/uL Baso # (Auto) (0.0-0.2) X10*3/uL Abs Immat Gran (auto) (0.00-0.03) X10*3/uL Absolute Neuts (auto) (2.0-8.3) x10*3/uL Absolute Nucleated RBC (0.0-0.012) X10*3/uL Nucleated RBC % (auto) (0.0-0.2) /100WBC Sodium (135-145) mmol/L Potassium (3.3-5.1) mmol/L Chloride (96-108) mmol/L Carbon Dioxide (22-29) mmol/L Anion Gap (12-20) BUN (9-16) mg/dL Creatinine (0.5-1.4) mg/dL Estim Creat Clear Calc Estimated GFR Random Glucose (60-115) mg/dL Calcium (8.4-10.2) mg/dL Magnesium (1.6-2.6) mg/dL Total Bilirubin (0.0-1.0) mg/dL Direct Bilirubin (0.0-0.5) mg/dL AST (5-31) U/L ALT (0-31) U/L Alkaline Phosphatase (39-117) U/L Troponin I High Sens (<3.5-17.0) ng/L Total Protein (6.5-8.0) g/dL Albumin (3.5-5.0) g/dL Lipase (8-78) U/L Urine Color Dark Yellow Urine Appearance Clear Urine pH 7.0 (5.0-9.0) Ur Specific [place] 1.015 (1.005-1.025) Urine Protein Negative (Neg-Trace) mg/dL Urine Glucose (UA) Negative (Negative) mg/dL Urine Ketones Negative (Negative) mg/dL Urine Blood Negative (Negative) Urine Nitrite Negative (Negative) Ur Leukocyte Esterase Negative (Negative) Urine RBC 3-5 H (0-2) /HPF Urine WBC 0-5 (0-5) /HPF Ur Squamous Epith Cells 0-2 (0-2) /HPF Urine Bacteria None Seen (None Seen) Hyaline Casts 0-2 (0-2) /LPF Independent Interpretation I performed an independent interpretation of an: EKG (sinus [address] or twave changes) and Plain X-Ray (no infiltrate) Radiology Impression Discussion of test interpretation with radiology: I have reviewed the radiologist's reading. (abdominal US reviewed) Tests considered The following testing was considered but not selected: I considered a CT of the abdomen but patient with a transaminitis and so opted not to get the CT Discharge Plan Discharge Clinical Impression: Hepatitis, Transaminitis Patient Disposition: Admitted As Inpatient
[2022-07-17 12:59] VITALS: BP 147/90; PULSE 94; RESP 18; TEMP 36.6; O2SAT 98; BMI 28.3
[2022-07-17 13:19] LABS: MANUAL DIFF FLAG NO
[2022-07-17 13:20] LABS: Basophils Percent Auto 0.3 % (0-2); Eosinophils Percent Auto 0.3 % (0-4); Hematocrit 48.9 % (37.0-47.0); Hemoglobin 16.4 g/dl (12.0-16.0); Imm Gran Abs Auto 0.03 X10*3/uL (0.00-0.03); Imm Gran Pct Auto 0.4 % (0.0-0.4); Lymphocytes Absolute Auto 0.8 X10*3/uL (1.2-4.9); Lymphocytes Percent Auto 11.3 % (20-40); Mean Corpuscular HGB Conc 33.5 g/dl (31.0-35.0); Mean Corpuscular Hemoglobin 30.2 pg (27.0-33.0); Mean Corpuscular Volume 90.1 fL (80.0-98.0); Mean Platelet Volume 9.4 fL (9.4-12.3); Monocytes Absolute Auto 0.5 X10*3/uL (0.1-1.2); Neutrophils Absolute Auto 5.6 x10*3/uL (2.0-8.3); Neutrophils Percent Auto 80.7 % (45-73); Platelet Count 227 X10*3/uL (160-400); Red Blood Count 5.43 X10*6/uL (4.20-5.50); Red Cell Distribution Width 13.2 % (11.0-16.0)
[2022-07-17 13:36] LABS: Alanine Aminotransferase 608 U/L (0-31); Albumin Level 4.4 g/dL (3.5-5.0); Alkaline Phosphatase 220 U/L (39-117); Anion Gap 14 (12-20); Aspartate Amino Transferase 847 U/L (5-31); Bilirubin Direct 1.6 mg/dL (0.0-0.5); Bilirubin Total 2.7 mg/dL (0.0-1.0); Blood Urea Nitrogen 12 mg/dL (9-16); Calcium 9.6 mg/dL (8.4-10.2); Carbon Dioxide 27 mmol/L (22-29); Chloride 106 mmol/L (96-108); Creatinine Clr Calc Pharmacy 60.4; Estimated Glomerular Filt Rate > 60; Glucose Random 138 mg/dL (60-115); Lipase 37 U/L (8-78); Sodium 143 mmol/L (135-145); Total Protein 7.2 g/dL (6.5-8.0)
[2022-07-17 13:43] LABS: Troponin-I High Sensitivity < 2.7 ng/L (<3.5-17.0)
[2022-07-17 14:44] VITALS: BP 175/94; PULSE 82; RESP 20; TEMP 36.9; O2SAT 100
[2022-07-17] MEDS: 0.9 % Sodium Chloride 1,000 ML 125 ML IVCONT (15:23)
--- NOTE | 2022-07-17 15:23 | PC.NURSE ---
ultrasound at bedside
[2022-07-17] MEDS: ondansetron HCL 4 MG/2 ML VIAL IVPUSH (15:32)
[2022-07-17] MEDS: Pantoprazole Sodium 40 MG/10 ML VIAL IVPUSH (15:32)
[2022-07-17] MEDS: Morphine Sulfate 4 MG/ML CARTRIDGE IVPUSH (15:33)
[2022-07-17 15:41] LABS: Appearance Urine Clear; Color Urine Dark Yellow; Glucose Urine UA Negative (Negative); Leukocyte Esterase Urine Negative (Negative); Nitrite Urine Negative (Negative); Specific Gravity - Urine 1.015 (1.005-1.025); Urine Blood Negative (Negative); Urine Ketones Negative (Negative); Urine Protein Negative (Neg-Trace)
[2022-07-17 15:43] LABS: Bacteria Urine None Seen (None Seen); Hyaline Casts Urine 0-2 /LPF (0-2); Squamous Epithelial Cell Urine 0-2 /HPF (0-2); WBC Urine 0-5 /HPF (0-5)
--- NOTE | 2022-07-17 16:28 | P.HPHOSP_ITS ---
History of Present Illness Date of Service: 07/17/22 Attending physician on admission: Terry Schaeffer Chief Complaint: abd pain/chest pain 57 year old female with history of hypothyroidism, multinodular goiter, and vitamin D deficiency presented to the ED for evaluation of abdominal pain. Re ports symptoms started yesterday in the epigastric area which persists but now radiates into the lower chest, worse after consuming gingerale. The pain also radiates across the upper abdomen, but not to the back. There is nausea but no vomiting. She states she has chronic issues with constipation, last BM unknown. No fevers, chills, diarrhea, melena, hematachezia, urinary issues, sob, lightheadedness, palpitations. She states she has had similar symptoms before, about 4 months ago, but never this severe. Currently pain rated 3/10 after IV morphine, was 3/10. She denies any NSAID use. Does take tylenol but not regularly. No etoh use, cigarette smoking, or illicit drug use. On arrival, patient hypertensive to 175/94, vitals otherwise WNL. No leukocytosis. Renal function and electrolyte levels normal. AST 847, ALT 608, Total bili 2.7, direct bili 1.6, Alk phos 220. Trop undetectable. Lipase 37. UA unremarkable. Hepatitis panel pending. Abd CT negative for any stones or CBD dilitation. She is s/p cholecystectomy. CXR negative. CT abd/pelvis pending. In the ED, treated with IV pantoprazole, 4mg IV morphiine, ondansetron, and 1 L NS. Review of Systems Review of Systems: General: No fevers, malaise, unintentional weight loss HEENT: No blurred vision, diplopia. No sore throat, nasal congestion, rhinorrhea, sinus pain, ear pain Cardiovascular: +chest pain. No palpitations, or leg edema Respiratory: No shortness of breath, wheezing, cough GI: +abd pain, +nausea, +constipation. No vomiting, diarrhea, melena, hematochezia : No dysuria, hematuria, increased urinary frequency, decreased urinary output MSK: No myalgia, back pain Neuro: No headaches, weakness, paresthesias Skin: No rashes or lesions [facility] Medical History Hypothyroidism Multinodular thyroid Vitamin D deficiency Family History Father No problems noted. Mother Breast cancer Hypertension Surgical History Hx of appendectomy Hx of cholecystectomy Hx of epicondylectomy Hx of foot surgery Hx of thyroidectomy Tubal ligation status Social History Alcohol intake: never Patient Tobacco Use Status: Never used Tobacco Advance Directives: No Advance Directives Information Provided: Yes Meds Allergies Allergy/AdvReac Type Severity Reaction Status Date / Time acetaminophen [Vicodin] Allergy Unknown unk Verified 07/17/22 12:58 Penicillins AdvReac Mild HYPERTENSIO Verified 07/17/22 12:58 N hydrocodone [From VICODIN] AdvReac Unknown HIGH BP Verified 07/17/22 12:58 Active Medications: Current Medications Sodium Chloride (Ns) 1,000 mls @ 125 mls/hr IVCONT .Q8H JACOB Last Admin: 07/17/22 15:23 Dose: 125 mls/hr Home Medications Medication Instructions Recorded Confirmed Last Taken Type acetaminophen 650 mg 650 mg PO Q12H PRN Pain 12/20/19 06/30/22 Unknown History tablet,extended release loratadine 10 mg tablet 10 mg PO DAILY 12/20/19 06/30/22 Unknown History mirtazapine 45 mg tablet 45 mg PO DAILY 12/20/19 06/30/22 Unknown History nortriptyline 50 mg capsule 50 mg PO DAILY 12/20/19 06/30/22 Unknown History quetiapine 100 mg tablet 100 mg PO DAILY 12/20/19 06/30/22 Unknown History sumatriptan succinate 100 mg tablet 100 mg PO Q2-4H PRN Headache 12/20/19 06/30/22 Unknown History sertraline 100 mg tablet 150 mg PO QAM 10/06/20 06/30/22 Unknown History levothyroxine 50 mcg tablet 100 mcg PO DAILY 06/30/22 06/30/22 Unknown History Physical Exam Vital Signs and Narrative: Vital Signs: Last Vital Signs Temp 98.5 F 07/17/22 14:44 Pulse 82 07/17/22 14:44 Resp 20 07/17/22 14:44 BP 175/94 H 07/17/22 14:44 Pulse Ox 100 07/17/22 14:44 O2 Del Method Room Air 07/17/22 14:44 BMI result Body Mass Index 28.3 Constitutional - Awake and Alert, No apparent distress, nontoxic appearing Eyes - PERRLA, EOMI Cardiovascular - S1S2, RRR, No edema Respiratory - Normal lung expansion, Normal respiratory effort, No respiratory distress, CTA bilaterally Gastrointestinal - RUQ, epigastric ttp with voluntary guarding, no rebound tenderness. Negative cassidy sign. ND; +BS Extremities - no calf tenderness bilaterally, no swelling Skin - Warm/Dry Neurological - Alert & oriented x3, 5/5 strength BUE and BLE Psychological - Appropriate affect Results Labs 07/17/22 13:15 07/17/22 13:15 Labs: Laboratory Results - last 24 hr 07/17/22 07/17/22 07/17/22 13:15 13:15 13:15 MCV 90.1 MCH 30.2 MCHC 33.5 RDW 13.2 Plt Count 227 MPV 9.4 Immature Gran % (Auto) 0.4 Neut % (Auto) 80.7 H Lymph % (Auto) 11.3 L [place] % (Auto) 7.0 Eos % (Auto) 0.3 Baso % (Auto) 0.3 Lymph # (Auto) 0.8 L [place] # (Auto) 0.5 Eos # (Auto) 0.0 Baso # (Auto) 0.0 Abs Immat Gran (auto) 0.03 Absolute Neuts (auto) 5.6 Absolute Nucleated RBC 0.000 Nucleated RBC % (auto) 0.0 Anion Gap 14 Estim Creat Clear Calc 60.4 Estimated GFR > 60 Random Glucose 138 H Calcium 9.6 Magnesium 2.0 Total Bilirubin 2.7 H Direct Bilirubin 1.6 H AST 847 H ALT 608 H Alkaline Phosphatase 220 H Troponin I High Sens < 2.7 Total Protein 7.2 Albumin 4.4 Lipase 37 Urine Color Urine Appearance Urine pH Ur Specific [place] Urine Protein Urine Glucose (UA) Urine Ketones Urine Blood Urine Nitrite Ur Leukocyte Esterase Urine RBC Urine WBC Ur Squamous Epith Cells Urine Bacteria Hyaline Casts 07/17/22 15:34 MCV MCH MCHC RDW Plt Count MPV Immature Gran % (Auto) Neut % (Auto) Lymph % (Auto) [place] % (Auto) Eos % (Auto) Baso % (Auto) Lymph # (Auto) [place] # (Auto) Eos # (Auto) Baso # (Auto) Abs Immat Gran (auto) Absolute Neuts (auto) Absolute Nucleated RBC Nucleated RBC % (auto) Anion Gap Estim Creat Clear Calc Estimated GFR Random Glucose Calcium Magnesium Total Bilirubin Direct Bilirubin AST ALT Alkaline Phosphatase Troponin I High Sens Total Protein Albumin Lipase Urine Color Dark Yellow Urine Appearance Clear Urine pH 7.0 Ur Specific [place] 1.015 Urine Protein Negative Urine Glucose (UA) Negative Urine Ketones Negative Urine Blood Negative Urine Nitrite Negative Ur Leukocyte Esterase Negative Urine RBC 3-5 H Urine WBC 0-5 Ur Squamous Epith Cells 0-2 Urine Bacteria None Seen Hyaline Casts 0-2 Imaging Radiologist's Impressions: Impressions Chest X-Ray 07/17/22 13:09 IMPRESSION: Unremarkable examination. Abdomen Ultrasound 07/17/22 15:22 IMPRESSION: Hepatic steatosis. Status post cholecystectomy. No biliary ductal dilatation. Assessment and Plan (1) Hepatitis: Status: Acute Plan 57 year old female with history of hypothyroidism, multinodular goiter, and vitamin D deficiency admitted for acute hepatitis. #Acute hepatitis with abdominal pain -etiology unclear at this time. U/S without any stones or biliary obstruction. CT abd/pelvis pending. Hepatitis panel pending. No excessive tylenol use, not taking any hepatotoxins -total bilirubin 2.7, direct bilirubin 1.6, AST 847, ALT 608, alkaline phosphatase 220 (baseline within normal limits) -Urine drug screen, acetaminophen level pending. Denies etoh or illicit drug use -MRCP ordered -ondansetron prn -hydromorphone for severe pain -Clear liquid diet, advance as tolerated -GI consult #Hypothyroidism -pt euthyroid on last labs -continue levothyroxine #Chronic constipation -jacob docusate and miralax #Mood disorder/migraines -continue home meds DVT prophylaxis- lovenox Full code Pt requires inpt stay at least 2 midnights for management of acute hepatitis of unclear etiology requiring further investigation [facility] MRCP and expert consultation and close monitoring of hepatic function. Time Spent With Patient Time: Total time managing care of this patient today ____ minutes. Quality Stroke Does the patient have a stroke diagnosis?: No VTE Prior VTE?: No VTE Risk Level:: Medical - moderate - high VTE Device Contraindication: Treatment Not Indicated VTE Drug Contraindication: N/A - Med Ordered
--- NOTE | 2022-07-17 17:12 | PC.NURSE ---
pt reporting improvement in pain, fluids infusing. awaiting ct scan results
[2022-07-17 18:09] LABS: Amphetamine Screen Urine Not Detected (Not Detect); Barbiturates, Urine Not Detected (Not Detect); Benzodiazepines Screen Urine Not Detected (Not Detect); Cannabinoid Screen Urine Not Detected (Not Detect); Cocaine Screen Urine Not Detected (Not Detect); Fentanyl, urine Not Detected (Not Detect); Opiate Screen Urine Not Detected (Not Detect); Phencyclidine Screen Urine Not Detected (Not Detect)
[2022-07-17 18:09] LABS: Acetaminophen LAB < 17 mcg/mL (<30)
[2022-07-17] MEDS: HYDROmorphone HCl 0.5 MG/0.5 ML SYRINGE 0.25 MG IVPUSH (18:46)
[2022-07-17] MEDS: Enoxaparin Sodium 40 MG/0.4 ML SYRINGE SUBCUT (18:46)
[2022-07-17] MEDS: polyethylene glycoL 3350 17 GM POWD.PACK PO (18:46)
--- NOTE | 2022-07-17 19:49 | PC.NURSE ---
Assumed care of pt. Pt lying on stretcher, endorsing mild pain 3/10 in upper epigastric area. Sts pain is tolerable at this time. REenforced plan of care. LINDENS, HAL.
[2022-07-17 19:50] VITALS: BP 116/56; PULSE 94; RESP 18; O2SAT 98
--- NOTE | 2022-07-17 19:56 | PHA.MEDREC ---
med rec complete, spoke to patient via medical biller. Patient dose of levothyroxine has been increased to 100 mcg, patient has been on both sertraline and venlafaxine, per patient the venlafaxine is to help with hot flashes Pharmacy Consult ? Medication Reconciliation Pharmacy has completed the medication reconciliation.
[2022-07-17] MEDS: Docusate Sodium 100 MG CAPSULE PO (20:28)
--- NOTE | 2022-07-17 21:57 | PC.NURSE ---
Pt being treansferred to Overflow, report to JESSICA Price
--- NOTE | 2022-07-17 23:22 | MHC.EDTECH ---
Pt. transferred back to Overflow room 1 at approximately 22:45 pm. Patient given call renae is resting comfortably.
[2022-07-18] MEDS: 0.9 % Sodium Chloride Flush 3 ML SYRINGE IVFLUSH ×2 (00:45→17:31)
[2022-07-18] MEDS: 0.9 % Sodium Chloride 1,000 ML 125 ML IVCONT ×3 (00:46→19:47)
--- NOTE | 2022-07-18 05:38 | PC.NURSE ---
Assumed care at approximately 2245, patient on phone, reports minimal pain at this time; ambulated to bathroom. NS running see APR. 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
[2022-07-18 05:39] VITALS: BP 130/60; PULSE 85; RESP 16; TEMP 36.8; O2SAT 95
[2022-07-18 06:54] LABS: MANUAL DIFF FLAG NO
[2022-07-18 06:56] LABS: Basophils Percent Auto 0.2 % (0-2); Eosinophils Percent Auto 0.2 % (0-4); Hematocrit 42.2 % (37.0-47.0); Imm Gran Abs Auto 0.03 X10*3/uL (0.00-0.03); Imm Gran Pct Auto 0.5 % (0.0-0.4); Lymphocytes Absolute Auto 1.2 X10*3/uL (1.2-4.9); Mean Corpuscular HGB Conc 33.2 g/dl (31.0-35.0); Mean Corpuscular Hemoglobin 30.1 pg (27.0-33.0); Mean Corpuscular Volume 90.8 fL (80.0-98.0); Mean Platelet Volume 9.5 fL (9.4-12.3); Monocytes Absolute Auto 0.4 X10*3/uL (0.1-1.2); Monocytes Percent Auto 6.8 % (2-11); Neutrophils Absolute Auto 4.5 x10*3/uL (2.0-8.3); Neutrophils Percent Auto 73.3 % (45-73); Platelet Count 187 X10*3/uL (160-400); Red Blood Count 4.65 X10*6/uL (4.20-5.50); Red Cell Distribution Width 13.2 % (11.0-16.0); White Blood Count 6.2 X10*3/uL (4.8-10.8)
[2022-07-18 07:22] LABS: Alanine Aminotransferase 485 U/L (0-31); Albumin Level 3.6 g/dL (3.5-5.0); Alkaline Phosphatase 227 U/L (39-117); Anion Gap 13 (12-20); Aspartate Amino Transferase 360 U/L (5-31); Bilirubin Direct 3.6 mg/dL (0.0-0.5); Blood Urea Nitrogen 7 mg/dL (9-16); Calcium 8.7 mg/dL (8.4-10.2); Carbon Dioxide 26 mmol/L (22-29); Chloride 109 mmol/L (96-108); Creatinine Clr Calc Pharmacy 67.3; Estimated Glomerular Filt Rate > 60; Glucose Random 107 mg/dL (60-115); Potassium 4.2 mmol/L (3.3-5.1); Sodium 144 mmol/L (135-145); Total Protein 5.9 g/dL (6.5-8.0)
[2022-07-18 07:33] VITALS: BP 125/65; PULSE 83; RESP 18; TEMP 36.8; O2SAT 98
[2022-07-18] MEDS: Docusate Sodium 100 MG CAPSULE PO ×2 (10:02→19:46)
[2022-07-18] MEDS: polyethylene glycoL 3350 17 GM POWD.PACK PO (10:03)
[2022-07-18] MEDS: HYDROmorphone HCl 0.5 MG/0.5 ML SYRINGE 0.25 MG IVPUSH (10:05)
--- NOTE | 2022-07-18 10:17 | P.CNGI_ITS ---
History of Present Illness Data of Consult Service Date: 07/18/22 Requesting physician: Terry Schaeffer Primary Care Provider: Giana Isbell MD HPI Reason for consult: abn LFT 57 year old female with history of hypothyroidism, multinodular goiter, cholecystectomy, and vitamin D deficiency who I am seeing for assessment for abn LFT PAtient initially presented with 10/10 epigastric pain, sudden onset, radiating into the back without relieiving or exacerbating factors. Now this is gone and she has an uncomfortable feeling around her mouth and chest area. There is nausea but no vomiting, she has chronic constipation. she had simialr atack few months back. she denies eating any undercooked foods, no sick contacts. No fevers, chills, diarrhea, melena, hematachezia, urinary issues, sob, lightheadedness, palpitations. She denies any NSAID use. Does take tylenol but not regularly. No etoh use, cigarette smoking, or illicit drug use. LABS: AST 847, ALT 608, Total bili 2.7, direct bili 1.6, Alk phos 220. Trop undetectable. Lipase 37. UA unremarkable. Hepatitis panel pending. u tox and acetaminophen level were neg IMAGING: Abd CT negative for any stones or CBD dilitation. US with hepatic steatosis otherwise no CBD stones seen Review of Systems Review of Systems: Constitutional : No Weight loss, No Fever, No Chills ENT/Mouth : No sore throat, No Rhinorrhea Eyes: No Swelling, No Redness Cardiovascular : No SOB, No Edema Respiratory : No Cough, No Sputum, No Wheezing Gastrointestinal : see HPI Genitourinary : NO Dysuria, No Urinary Frequency, No Hematuria, No Urgency Musculoskeletal : No joint pain, No Myalgias, No Joint Swelling Skin : No Skin Lesions, No rash Neuro : No Weakness, No Numbness, No Dizziness, No Headache Psych : No Anxiety/Panic, No Depression Heme/Lymph: No Bruising, No Lymphadenopathy Endocrine : No Polyuria, No Polydipsia All other systems reviewed and are negative. [facility] Past Medical History Medical History Hypothyroidism Multinodular thyroid Vitamin D deficiency Family History Family History Father No problems noted. Mother Breast cancer Hypertension Surgical History Surgical History Hx of appendectomy Hx of cholecystectomy Hx of epicondylectomy Hx of foot surgery Hx of thyroidectomy Tubal ligation status Social History Social History Alcohol intake: never Patient Tobacco Use Status: Never used Tobacco Advance Directives: No Advance Directives Information Provided: Yes Meds Allergies Allergy/AdvReac Type Severity Reaction Status Date / Time acetaminophen [Vicodin] Allergy Unknown unk Verified 07/17/22 12:58 Penicillins AdvReac Mild HYPERTENSIO Verified 07/17/22 12:58 N hydrocodone [From VICODIN] AdvReac Unknown HIGH BP Verified 07/17/22 12:58 Active Medications: Current Medications Docusate Sodium (Docusate Sodium 100 Mg Capsule) 100 mg PO BID [facility] Last Admin: 07/18/22 10:02 Dose: 100 mg Enoxaparin Sodium (Enoxaparin Sodium 40 Mg/0.4 Ml Syringe) 40 mg SUBCUT Q24H [facility] Last Admin: 07/17/22 18:46 Dose: 40 mg Hydromorphone HCl (Hydromorphone Hcl 0.5 Mg/0.5 Ml Syringe) 0.25 mg IVPUSH Q4H PRN; Protocol PRN Reason: Pain, Severe (Pain Scale 7-10) Last Admin: 07/18/22 10:05 Dose: 0.25 mg Sodium Chloride (Ns) 1,000 mls @ 125 mls/hr IVCONT .Q8H [facility] Last Admin: 07/18/22 08:53 Dose: 125 mls/hr Levothyroxine Sodium (Levothyroxine Sodium 100 Mcg Tablet) 100 mcg PO DAILY@0600 [facility] Loratadine (Loratadine 10 Mg Tablet) 10 mg PO DAILY PRN PRN Reason: allergies Nortriptyline HCl (Nortriptyline Hcl 25 Mg Capsule) 100 mg PO BEDTIME [facility] Ondansetron HCl (Ondansetron Hcl 4 Mg/2 Ml Vial) 4 mg IVPUSH Q8H PRN PRN Reason: Nausea and Vomiting Pharmacy Consult (Consult Rx Perform Med Rec) 1 each MISCELLANE ONCE PRN PRN Reason: Consult order Polyethylene Glycol (Polyethylene Glycol 3350 17 Gm Powd.Pack) 17 gm PO DAILY [facility] Last Admin: 07/18/22 10:03 Dose: 17 gm Quetiapine Fumarate (Quetiapine Fumarate 100 Mg Tablet) 100 mg PO BEDTIME [facility] Sertraline HCl (Sertraline Hcl 50 Mg Tablet) 150 mg PO DAILY [facility] Last Admin: 07/18/22 10:02 Dose: Not Given Sodium Chloride (0.9 % Sodium Chloride Flush 3 Ml Syringe) 3 ml IVFLUSH QSHIFT [facility] Last Admin: 07/18/22 08:01 Dose: Not Given Sumatriptan Succinate (Sumatriptan Succinate 100 Mg Tablet) 100 mg PO Q2H PRN PRN Reason: Headache Venlafaxine HCl (Venlafaxine Hcl 25 Mg Tablet) 37.5 mg PO BID [facility] Vitamin D (Cholecalciferol (Vitamin D3) 25 Mcg Tablet) 50 mcg PO DAILY [facility] Home Medications Medication Instructions Recorded Confirmed Last Taken Type acetaminophen 650 mg 650 mg PO Q12H PRN Pain 12/20/19 07/17/22 Unknown History tablet,extended release loratadine 10 mg tablet 10 mg PO DAILY PRN allergies 12/20/19 07/17/22 Unknown History nortriptyline 50 mg capsule 100 mg PO BEDTIME 12/20/19 07/17/22 07/16/22 History quetiapine 100 mg tablet 100 mg PO BEDTIME 12/20/19 07/17/22 07/16/22 History sumatriptan succinate 100 mg tablet 100 mg PO Q2-4H PRN Headache 12/20/19 07/17/22 Unknown History sertraline 100 mg tablet 150 mg PO DAILY 10/06/20 07/17/22 07/16/22 History levothyroxine 50 mcg tablet 100 mcg PO DAILY 06/30/22 07/17/22 07/17/22 History cholecalciferol (vitamin D3) 50 50 mcg PO DAILY 07/17/22 07/17/22 07/16/22 History mcg (2,000 unit) tablet docusate sodium 100 mg capsule 100 mg PO DAILY PRN Constipation 07/17/22 0 07/17/22 Unknown History venlafaxine 37.5 mg tablet 37.5 mg PO BID 07/17/22 07/17/22 07/16/22 History Physical Exam Vital Signs: Vital Signs: Last Vital Signs Temp 98.3 F 07/18/22 07:33 Pulse 83 07/18/22 07:33 Resp 18 07/18/22 07:33 BP 125/65 07/18/22 07:33 Pulse Ox 98 07/18/22 07:33 O2 Del Method Room Air 07/18/22 07:33 BMI result Body Mass Index 28.3 EXAM: GENERAL: The patient is well developed and nontoxic. VITAL SIGNS:see workflow HEENT: Nonicteric sclerae, PERRLA, EOMI. Oropharynx clear. Moist mucous membranes. Conjunctivae appear well perfused. No thyroid mass. CHEST: Chest wall is nontender. HEART: Regular rate and rhythm without murmurs. LUNGS: Clear to auscultation bilaterally. ABDOMEN: Soft, positive bowel sounds, mildly tender epigastrium, no organomegaly.no flank tenderness SKIN: No rash, no excessive bruising, petechiae, or purpura. NEUROLOGIC: Cranial nerves II-XII intact without motor/sensory deficit. Psych: Appearance: grossly normal Results Labs 07/18/22 06:50 07/18/22 06:50 Labs: Short CBC 07/17/22 07/18/22 Range/Units 13:15 06:50 WBC 7.0 6.2 (4.8-10.8) X10*3/uL Hgb 16.4 H 14.0 (12.0-16.0) g/dl Hct 48.9 H 42.2 (37.0-47.0) % Plt Count 227 187 (160-400) X10*3/uL BMP 07/17/22 07/18/22 13:15 06:50 Sodium 143 144 Potassium 4.0 4.2 Chloride 106 109 H Carbon Dioxide 27 26 BUN 12 7 L Creatinine 0.87 0.78 Calcium 9.6 8.7 D Liver Function 07/17/22 07/18/22 Range/Units 13:15 06:50 Total Bilirubin 2.7 H 5.0 H (0.0-1.0) mg/dL Direct Bilirubin 1.6 H 3.6 H (0.0-0.5) mg/dL AST 847 H 360 H (5-31) U/L ALT 608 H 485 H (0-31) U/L Alkaline Phosphatase 220 H 227 H (39-117) U/L Albumin 4.4 3.6 (3.5-5.0) g/dL Urine 07/17/22 Range/Units 15:34 Urine Color Dark Yellow Urine Appearance Clear Urine pH 7.0 (5.0-9.0) Ur Specific [place] 1.015 (1.005-1.025) Urine Protein Negative (Neg-Trace) mg/dL Urine Glucose (UA) Negative (Negative) mg/dL Imaging CT scan - abdomen: My impression: fecal loading of colon, bile duct maybe slightly dilated on coronal view, clips seen Assessment and Plan (1) Transaminitis: Status: Acute Plan 1/ abn LFT, mixed pattern with cholestatic and obstructive pattern, abdominal discomfort, ddx: infectious, retained bile stones, SOD type 1 or 2, autoimmune hepatitis, drug induced liver injury, or budd chiari PLAN: 1/ MRCP 2/ await hep serologies 3/ check MARION< SMA, celiac panel 4/ doppler IVC and portal vein 5/ if any diarrhea then send stools for GI stool panel Time Spent With Patient Time: Total time managing care of this patient today ____ minutes. Procedures Date of Service Date of Service: 07/18/22
[2022-07-18 11:33] VITALS: BP 111/55; PULSE 85; RESP 20; TEMP 36.2; O2SAT 97
--- NOTE | 2022-07-18 12:31 | HO.PM.IMPN ---
Subjective Subjective Date of Service: 07/18/22 Interval History: No acute issues overnight. Comfortable; no complaints of pain Review of Systems Denies chest pain Denies shortness of breath Denies nausea vomiting diarrhea Denies fever chills Physical Exam Vital Signs: Vital Signs: Last Vital Signs Temp 97.2 F 07/18/22 11:33 Pulse 85 07/18/22 11:33 Resp 20 07/18/22 11:33 BP 111/55 L 07/18/22 11:33 Pulse Ox 97 07/18/22 11:33 O2 Del Method Room Air 07/18/22 11:33 BMI result Body Mass Index 28.3 Const: Other: Awake alert no acute distress Resp: Other: Clear to auscultation bilaterally no rales rhonchi or wheezes Cardio: Other: No S4; positive S1-S2; no S3 murmurs rubs or gallops GI: Other: Soft nontender nondistended normoactive bowel sounds Extrem: Other: No edema bilaterally Psych: Appearance: grossly normal Objective Data Active Medications Docusate Sodium (Docusate Sodium 100 Mg Capsule) 100 mg PO BID [facility] Last Admin: 07/18/22 10:02 Dose: 100 mg Documented By: CRISTINO Enoxaparin Sodium (Enoxaparin Sodium 40 Mg/0.4 Ml Syringe) 40 mg SUBCUT Q24H [facility] Last Admin: 07/17/22 18:46 Dose: 40 mg Documented By: CONNER Hydromorphone HCl (Hydromorphone Hcl 0.5 Mg/0.5 Ml Syringe) 0.25 mg IVPUSH Q4H PRN; Protocol PRN Reason: Pain, Severe (Pain Scale 7-10) Last Admin: 07/18/22 10:05 Dose: 0.25 mg Documented By: CRISTINO Sodium Chloride (Ns) 1,000 mls @ 125 mls/hr IVCONT .Q8H [facility] Last Admin: 07/18/22 08:53 Dose: 125 mls/hr Documented By: DOBROB Levothyroxine Sodium (Levothyroxine Sodium 100 Mcg Tablet) 100 mcg PO DAILY@0600 [facility] Loratadine (Loratadine 10 Mg Tablet) 10 mg PO DAILY PRN PRN Reason: allergies Nortriptyline HCl (Nortriptyline Hcl 25 Mg Capsule) 100 mg PO BEDTIME [facility] Ondansetron HCl (Ondansetron Hcl 4 Mg/2 Ml Vial) 4 mg IVPUSH Q8H PRN PRN Reason: Nausea and Vomiting Pharmacy Consult (Consult Rx Perform Med Rec) 1 each MISCELLANE ONCE PRN PRN Reason: Consult order Polyethylene Glycol (Polyethylene Glycol 3350 17 Gm Powd.Pack) 17 gm PO DAILY [facility] Last Admin: 07/18/22 10:03 Dose: 17 gm Documented By: CRISTINO Quetiapine Fumarate (Quetiapine Fumarate 100 Mg Tablet) 100 mg PO BEDTIME [facility] Sertraline HCl (Sertraline Hcl 50 Mg Tablet) 150 mg PO DAILY [facility] Last Admin: 07/18/22 10:02 Dose: Not Given Documented By: CRISTINO Non-Admin Reason: Patient Refused Sodium Chloride (0.9 % Sodium Chloride Flush 3 Ml Syringe) 3 ml IVFLUSH QSHIFT [facility] Last Admin: 07/18/22 08:01 Dose: Not Given Documented By: JUSTYNA Non-Admin Reason: IV Running Sumatriptan Succinate (Sumatriptan Succinate 100 Mg Tablet) 100 mg PO Q2H PRN PRN Reason: Headache Venlafaxine HCl (Venlafaxine Hcl 25 Mg Tablet) 37.5 mg PO BID [facility] Vitamin D (Cholecalciferol (Vitamin D3) 25 Mcg Tablet) 50 mcg PO DAILY [facility] Last Admin: 07/18/22 11:09 Dose: Not Given Documented By: CRISTINO Non-Admin Reason: Given in ED? Labs 07/18/22 06:50 07/18/22 06:50 Labs: Laboratory Results - last 24 hr 07/17/22 07/17/22 07/17/22 13:15 13:15 13:15 MCV 90.1 MCH 30.2 MCHC 33.5 RDW 13.2 Plt Count 227 MPV 9.4 Immature Gran % (Auto) 0.4 Neut % (Auto) 80.7 H Lymph % (Auto) 11.3 L [place] % (Auto) 7.0 Eos % (Auto) 0.3 Baso % (Auto) 0.3 Lymph # (Auto) 0.8 L [place] # (Auto) 0.5 Eos # (Auto) 0.0 Baso # (Auto) 0.0 Abs Immat Gran (auto) 0.03 Absolute Neuts (auto) 5.6 Absolute Nucleated RBC 0.000 Nucleated RBC % (auto) 0.0 Anion Gap 14 Estim Creat Clear Calc 60.4 Estimated GFR > 60 Random Glucose 138 H Calcium 9.6 Magnesium 2.0 Total Bilirubin 2.7 H Direct Bilirubin 1.6 H AST 847 H ALT 608 H Alkaline Phosphatase 220 H Troponin I High Sens < 2.7 Total Protein 7.2 Albumin 4.4 Lipase 37 Urine Color Urine Appearance Urine pH Ur Specific [place] Urine Protein Urine Glucose (UA) Urine Ketones Urine Blood Urine Nitrite Ur Leukocyte Esterase Urine RBC Urine WBC Ur Squamous Epith Cells Urine Bacteria Hyaline Casts Urine Opiates Screen Urine Fentanyl Screen Acetaminophen < 17 Ur Barbiturates Screen Ur Phencyclidine Scrn Ur Amphetamines Screen U Benzodiazepines Scrn Urine Cocaine Screen U Marijuana (THC) Screen 07/17/22 07/17/22 07/18/22 15:34 15:34 06:50 MCV 90.8 MCH 30.1 MCHC 33.2 RDW 13.2 Plt Count 187 MPV 9.5 Immature Gran % (Auto) 0.5 H Neut % (Auto) 73.3 H Lymph % (Auto) 19.0 L [place] % (Auto) 6.8 Eos % (Auto) 0.2 Baso % (Auto) 0.2 Lymph # (Auto) 1.2 [place] # (Auto) 0.4 Eos # (Auto) 0.0 Baso # (Auto) 0.0 Abs Immat Gran (auto) 0.03 Absolute Neuts (auto) 4.5 Absolute Nucleated RBC 0.000 Nucleated RBC % (auto) 0.0 Anion Gap Estim Creat Clear Calc Estimated GFR Random Glucose Calcium Magnesium Total Bilirubin Direct Bilirubin AST ALT Alkaline Phosphatase Troponin I High Sens Total Protein Albumin Lipase Urine Color Dark Yellow Urine Appearance Clear Urine pH 7.0 Ur Specific [place] 1.015 Urine Protein Negative Urine Glucose (UA) Negative Urine Ketones Negative Urine Blood Negative Urine Nitrite Negative Ur Leukocyte Esterase Negative Urine RBC 3-5 H Urine WBC 0-5 Ur Squamous Epith Cells 0-2 Urine Bacteria None Seen Hyaline Casts 0-2 Urine Opiates Screen Not Detected Urine Fentanyl Screen Not Detected Acetaminophen Ur Barbiturates Screen Not Detected Ur Phencyclidine Scrn Not Detected Ur Amphetamines Screen Not Detected U Benzodiazepines Scrn Not Detected Urine Cocaine Screen Not Detected U Marijuana (THC) Screen Not Detected 07/18/22 06:50 MCV MCH MCHC RDW Plt Count MPV Immature Gran % (Auto) Neut % (Auto) Lymph % (Auto) [place] % (Auto) Eos % (Auto) Baso % (Auto) Lymph # (Auto) [place] # (Auto) Eos # (Auto) Baso # (Auto) Abs Immat Gran (auto) Absolute Neuts (auto) Absolute Nucleated RBC Nucleated RBC % (auto) Anion Gap 13 Estim Creat Clear Calc 67.3 Estimated GFR > 60 Random Glucose 107 Calcium 8.7 D Magnesium Total Bilirubin 5.0 H Direct Bilirubin 3.6 H AST 360 H ALT 485 H Alkaline Phosphatase 227 H Troponin I High Sens Total Protein 5.9 L Albumin 3.6 Lipase Urine Color Urine Appearance Urine pH Ur Specific [place] Urine Protein Urine Glucose (UA) Urine Ketones Urine Blood Urine Nitrite Ur Leukocyte Esterase Urine RBC Urine WBC Ur Squamous Epith Cells Urine Bacteria Hyaline Casts Urine Opiates Screen Urine Fentanyl Screen Acetaminophen Ur Barbiturates Screen Ur Phencyclidine Scrn Ur Amphetamines Screen U Benzodiazepines Scrn Urine Cocaine Screen U Marijuana (THC) Screen Assessment and Plan (1) Transaminitis: Status: Acute (2) Hypothyroidism: Status: Acute Plan 57 year old female with history of hypothyroidism, multinodular goiter, and vitamin D deficiency admitted for acute hepatitis. MRCP P/CT abdomen pelvis unremarkable. 1.Acute hepatitis with abdominal pain -will schedule ultrasound of portal vein to rule out thrombosis in a.m. -IgG/MARION added to panel -GI following 2.Hypothyroidism -euthyroid on last labs -continue levothyroxine 3Mood disorder/migraines -continue home meds lovenox Full code Patient requires ongoing hospitalization to complete workup for transaminitis Time Spent With Patient Time: Total time managing care of this patient today ____ minutes. Quality Stroke Does the patient have a stroke diagnosis?: No VTE Prior VTE?: No VTE Risk Level:: Medical - moderate - high VTE Device Contraindication: Treatment Not Indicated VTE Drug Contraindication: N/A - Med Ordered
[2022-07-18 15:05] VITALS: BP 109/60; PULSE 71; RESP 17; TEMP 36.2; O2SAT 95
--- NOTE | 2022-07-18 16:03 | MHC.CM.PN ---
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 COPY REQUESTED PCP: KATIE HALLMAN DELIVERED CURRENT DCP: HOME RESUME RAILRO[employer]CH[employer]ING [employer] [facility]
[2022-07-18] MEDS: Enoxaparin Sodium 40 MG/0.4 ML SYRINGE SUBCUT (17:31)
[2022-07-18 19:29] VITALS: BP 125/63; PULSE 73; RESP 17; TEMP 36.4; O2SAT 100
[2022-07-18] MEDS: Venlafaxine HCL 25 MG TABLET 37.5 MG PO (19:44)
[2022-07-18] MEDS: Nortriptyline HCl 25 MG CAPSULE 100 MG PO (19:45)
[2022-07-18] MEDS: QUEtiapine Fumarate 100 MG TABLET PO (19:46)
[2022-07-18 23:14] VITALS: BP 123/64; PULSE 83; RESP 16; TEMP 36.9; O2SAT 92
[2022-07-19 03:27] VITALS: BP 110/55; PULSE 78; RESP 18; TEMP 36.8; O2SAT 95
[2022-07-19] MEDS: 0.9 % Sodium Chloride 1,000 ML 125 ML IVCONT ×3 (03:58→18:13)
[2022-07-19] MEDS: Levothyroxine Sodium 100 MCG TABLET PO (05:29)
[2022-07-19 07:13] VITALS: BP 129/74; PULSE 74; RESP 20; TEMP 36.3; O2SAT 98
[2022-07-19 08:47] LABS: Alanine Aminotransferase 386 U/L (0-31); Albumin Level 3.6 g/dL (3.5-5.0); Alkaline Phosphatase 247 U/L (39-117); Anion Gap 13 (12-20); Aspartate Amino Transferase 174 U/L (5-31); Bilirubin Total 1.9 mg/dL (0.0-1.0); Blood Urea Nitrogen 6 mg/dL (9-16); Calcium 8.9 mg/dL (8.4-10.2); Carbon Dioxide 28 mmol/L (22-29); Chloride 108 mmol/L (96-108); Creatinine Clr Calc Pharmacy 69.1; Estimated Glomerular Filt Rate > 60; Gamma Glutamyl Transpeptidase 558 U/L (7-33); Glucose Random 107 mg/dL (60-115); Potassium 3.8 mmol/L (3.3-5.1); Sodium 145 mmol/L (135-145)
[2022-07-19 09:04] LABS: HIV AB/AG Nonreactive (Nonreactive); HIV Num 1 0.09 S/CO (0.00-0.99)
[2022-07-19 09:11] LABS: HBS Num1 4.32 mIU/mL (0-7.99); HBc Num1 0.23 S/CO (0.00-0.79); HBsAGNum1 0.47 S/CO (0.00-0.99); Hepatitis A Antibody IgM 0.22 Index (0-0.79); Hepatitis B Core Antibody Nonreactive (Nonreactive); Hepatitis B Surface Antigen Negative (Negative); ~HepC Num1 0.09 S/CO (0.00-0.79); ~Hepatitis A Antibody IgM Nonreactive (Nonreactive); ~Hepatitis B Surface Antibody NONREACTIVE (Nonreactive); ~Hepatitis C Antibody Nonreactive (Nonreactive)
[2022-07-19] MEDS: polyethylene glycoL 3350 17 GM POWD.PACK PO (09:42)
[2022-07-19] MEDS: Cholecalciferol (Vitamin D3) 25 MCG TABLET 50 MCG PO (09:42)
[2022-07-19] MEDS: Docusate Sodium 100 MG CAPSULE PO ×2 (09:42→22:00)
[2022-07-19 10:10] VITALS: BMI 28.3
[2022-07-19 11:07] VITALS: BP 129/78; PULSE 79; RESP 20; TEMP 36.6; O2SAT 99
--- NOTE | 2022-07-19 12:20 | P.PNIM_ITS ---
Subjective Subjective Date of Service: 07/19/22 Interval History: This history was taken in Occ[place] from the patient. No abd pain, nausea or vomiting Diarrhea resolved Review of Systems Review of Systems: Yes all other systems are reviewed and are negative Physical Exam Vital Signs: Vital Signs: Last Vital Signs Temp 97.9 F 07/19/22 11:07 Pulse 79 07/19/22 11:07 Resp 20 07/19/22 11:07 BP 129/78 07/19/22 11:07 Pulse Ox 99 07/19/22 11:07 O2 Del Method Room Air 07/19/22 11:07 BMI result Body Mass Index 28.3 Gen: in no acute distress HEENT: sclera anicteric, moist mucus membranes Neck: supple Lungs: clear to auscultation bilaterally Heart: regular rate and rhythm, no murmurs Abd: soft, non-tender, non-distended Ext: no edema Skin: warm/well-perfused Neuro: alert and oriented x3, no focal findings Psych: appropriate affect Objective Data Active Medications Docusate Sodium (Docusate Sodium 100 Mg Capsule) 100 mg PO BID [facility] Last Admin: 07/19/22 09:42 Dose: 100 mg Documented By: GLORIA Enoxaparin Sodium (Enoxaparin Sodium 40 Mg/0.4 Ml Syringe) 40 mg SUBCUT Q24H [facility] Last Admin: 07/18/22 17:31 Dose: 40 mg Documented By: CRISTINO Hydromorphone HCl (Hydromorphone Hcl 0.5 Mg/0.5 Ml Syringe) 0.25 mg IVPUSH Q4H PRN; Protocol PRN Reason: Pain, Severe (Pain Scale 7-10) Last Admin: 07/18/22 10:05 Dose: 0.25 mg Documented By: CRISTINO Sodium Chloride (Ns) 1,000 mls @ 125 mls/hr IVCONT .Q8H [facility] Last Admin: 07/19/22 11:20 Dose: 125 mls/hr Documented By: BRYCE Levothyroxine Sodium (Levothyroxine Sodium 100 Mcg Tablet) 100 mcg PO DAILY@0600 [facility] Last Admin: 07/19/22 05:29 Dose: 100 mcg Documented By: ARLEY Loratadine (Loratadine 10 Mg Tablet) 10 mg PO DAILY PRN PRN Reason: allergies Nortriptyline HCl (Nortriptyline Hcl 25 Mg Capsule) 100 mg PO BEDTIME [facility] Last Admin: 07/18/22 19:45 Dose: 100 mg Documented By: ARLEY Ondansetron HCl (Ondansetron Hcl 4 Mg/2 Ml Vial) 4 mg IVPUSH Q8H PRN PRN Reason: Nausea and Vomiting Pharmacy Consult (Consult Rx Perform Med Rec) 1 each MISCELLANE ONCE PRN PRN Reason: Consult order Polyethylene Glycol (Polyethylene Glycol 3350 17 Gm Powd.Pack) 17 gm PO DAILY [facility] Last Admin: 07/19/22 09:42 Dose: 17 gm Documented By: GLORIA Quetiapine Fumarate (Quetiapine Fumarate 100 Mg Tablet) 100 mg PO BEDTIME [facility] Last Admin: 07/18/22 19:46 Dose: 100 mg Documented By: ARLEY Sertraline HCl (Sertraline Hcl 50 Mg Tablet) 150 mg PO DAILY [facility] Last Admin: 07/19/22 09:44 Dose: Not Given Documented By: GLORIA Non-Admin Reason: Patient Refused Sodium Chloride (0.9 % Sodium Chloride Flush 3 Ml Syringe) 3 ml IVFLUSH QSHIFT [facility] Last Admin: 07/19/22 09:21 Dose: Not Given Documented By: GLORIA Non-Admin Reason: IV Running Sumatriptan Succinate (Sumatriptan Succinate 100 Mg Tablet) 100 mg PO Q2H PRN PRN Reason: Headache Venlafaxine HCl (Venlafaxine Hcl 25 Mg Tablet) 37.5 mg PO BID [facility] Last Admin: 07/19/22 09:44 Dose: Not Given Documented By: GLORIA Non-Admin Reason: Patient Refused Vitamin D (Cholecalciferol (Vitamin D3) 25 Mcg Tablet) 50 mcg PO DAILY [facility] Last Admin: 07/19/22 09:42 Dose: 50 mcg Documented By: GLORIA Labs 07/18/22 06:50 07/19/22 08:18 Labs: Laboratory Results - last 24 hr 07/17/22 07/19/22 07/19/22 15:14 08:18 08:18 Anion Gap 13 Estim Creat Clear Calc 69.1 Estimated GFR > 60 Random Glucose 107 Calcium 8.9 Total Bilirubin 1.9 H GGT 558 H AST 174 H ALT 386 H Alkaline Phosphatase 247 H Total Protein 6.0 L Albumin 3.6 Hepatitis A IgM Ab Nonreactive Hep Bs Antigen Negative Hep Bs Antibody NONREACTIVE Hep B Core Total Ab Nonreactive Hepatitis C Ab (EIA) Nonreactive HIV 1&2 Ab/P24 Ag 4thGn Nonreactive ITS Impressions Chest X-Ray 07/17/22 13:09 IMPRESSION: Unremarkable examination. Abdomen Ultrasound 07/17/22 15:22 IMPRESSION: Hepatic steatosis. Status post cholecystectomy. No biliary ductal dilatation. Abdomen/Pelvis CT 07/17/22 16:36 IMPRESSION: Fatty liver. No biliary ductal dilatation. Punctate nonobstructing calculus right upper kidney. Mild sigmoid diverticulosis. Fleischner guidelines were followed. Cholangiopancreatography MRI 07/18/22 11:35 IMPRESSION: Mild fatty infiltration of the liver. Normal caliber intrahepatic extrahepatic bile ducts. No common bile duct stone Assessment and Plan (1) Transaminitis: Status: Acute (2) Hypothyroidism: Status: Acute Plan d#3 57yo F with hypothyroidism, multinodular goiter, vitamin D deficiency admitted for acute hepatitis MRCP + CT unremarkable besides fatty liver # acute hepatitis - viral workup negative - serologic workup pending - no portal vein thrombosis on US - GI following - LFTs improving, advance diet # hypothyroidism - LT4 # mood disorder - quetiapine, sertraline, venlafaxine # migraines - nortriptyline, prn sumatriptan # VTE ppx: LMWH # dispo: anticipate eventually home In my clinical judgment, the patient requires continued inpatient hospitalization for the following reasons: hepatic monitoring Time Spent With Patient Time: Total time managing care of this patient today _35___ minutes. Quality Stroke Does the patient have a stroke diagnosis?: No VTE Prior VTE?: No VTE Risk Level:: Medical - moderate - high VTE Device Contraindication: Treatment Not Indicated VTE Drug Contraindication: N/A - Med Ordered
[2022-07-19 15:23] VITALS: BP 111/59; PULSE 75; RESP 20; TEMP 36.1; O2SAT 94
[2022-07-19] MEDS: Enoxaparin Sodium 40 MG/0.4 ML SYRINGE SUBCUT (18:10)
[2022-07-19 18:59] VITALS: BP 134/60; PULSE 86; RESP 20; TEMP 36.6; O2SAT 97
[2022-07-19] MEDS: QUEtiapine Fumarate 100 MG TABLET PO (22:02)
[2022-07-19] MEDS: Nortriptyline HCl 25 MG CAPSULE 100 MG PO (22:02)
[2022-07-19 23:14] VITALS: BP 112/55; PULSE 85; RESP 18; TEMP 36.9; O2SAT 95
[2022-07-20 03:22] VITALS: BP 125/71; PULSE 86; RESP 18; TEMP 37.5; O2SAT 97
[2022-07-20] MEDS: Levothyroxine Sodium 100 MCG TABLET PO (05:54)
[2022-07-20] MEDS: 0.9 % Sodium Chloride 1,000 ML 125 ML IVCONT (05:55)
[2022-07-20 06:02] LABS: Alanine Aminotransferase 259 U/L (0-31); Albumin Level 3.6 g/dL (3.5-5.0); Alkaline Phosphatase 222 U/L (39-117); Anion Gap 13 (12-20); Aspartate Amino Transferase 76 U/L (5-31); Bilirubin Total 1.1 mg/dL (0.0-1.0); Blood Urea Nitrogen 7 mg/dL (9-16); Calcium 8.9 mg/dL (8.4-10.2); Carbon Dioxide 26 mmol/L (22-29); Chloride 108 mmol/L (96-108); Creatinine Clr Calc Pharmacy 66.5; Estimated Glomerular Filt Rate > 60; Glucose Random 93 mg/dL (60-115); Potassium 3.9 mmol/L (3.3-5.1); Sodium 143 mmol/L (135-145); Total Protein 5.9 g/dL (6.5-8.0)
[2022-07-20 07:12] VITALS: BP 134/73; PULSE 81; RESP 20; TEMP 36.2; O2SAT 98
[2022-07-20] MEDS: polyethylene glycoL 3350 17 GM POWD.PACK PO (08:27)
[2022-07-20] MEDS: Docusate Sodium 100 MG CAPSULE PO (08:27)
[2022-07-20] MEDS: Cholecalciferol (Vitamin D3) 25 MCG TABLET 50 MCG PO (08:27)
[2022-07-20] MEDS: Sertraline HCL 50 MG TABLET 150 MG PO (08:27)
--- NOTE | 2022-07-20 09:21 | P.DS_ITS ---
DS: Providers Provider Date of Service: 07/20/22 Date of admission: 07/17/22 17:45 Date of discharge: 07/20/22 Primary care physician: Giana Isbell MD Consults: 07/17/22 17:45 Consult to Gastroenterology Routine Consulting Provider: Jf Howard Reason for consultation: acute hepatitis DS: Diagnosis Discharge Diagnosis (1) Transaminitis: Status: Acute (2) Acute hepatitis: Status: Acute (3) Abdominal pain: Status: Acute DS: Summary Hospital Course Hospital Course: from admission H+P by hospitalist ERICA Lyons, 07/17/22: 57 year old female with history of hypothyroidism, multinodular goiter, and vitamin D deficiency presented to the ED for evaluation of abdominal pain. Reports symptoms started yesterday in the epigastric area which persists but now radiates into the lower chest, worse after consuming gingerale. The pain also radiates across the upper abdomen, but not to the back. There is nausea but no vomiting. She states she has chronic issues with constipation, last BM unknown. No fevers, chills, diarrhea, melena, hematachezia, urinary issues, sob, lightheadedness, palpitations. She states she has had similar symptoms before, about 4 months ago, but never this severe. Currently pain rated 3/10 after IV morphine, was 3/10. She denies any NSAID use. Does take tylenol but not regularly. No etoh use, cigarette smoking, or illicit drug use. On arrival, patient hypertensive to 175/94, vitals otherwise WNL. No leukocytosis. Renal function and electrolyte levels normal. AST 847, ALT 608, Total bili 2.7, direct bili 1.6, Alk phos 220. Trop undetectable. Lipase 37. UA unremarkable. Hepatitis panel pending. Abd CT negative for any stones or CBD dilitation. She is s/p cholecystectomy. CXR negative. CT abd/pelvis pending. In the ED, treated with IV pantoprazole, 4mg IV morphiine, ondansetron, and 1 L NS. 57yo F with hypothyroidism, multinodular goiter, vitamin D deficiency admitted for acute hepatitis. GI consulted. MRCP + CT unremarkable besides fatty liver. Viral workup negative including HAV, HBV, HCV, and HIV. No portal vein thrombosis on US. Serologic workup sent and pending at the time of discharge [see below]. LFTs improved and diet was advanced. Abdominal pain resolved completely. Possibly due to gastroenteritis. Repeat CMP in week then follow up with PCP and GI in 1-2 weeks for results of pending tests. Time Spent with Patient Time attestation: Total time managing care of this patient today __35__ minutes. Discharge coordination time: Greater than 30 minutes Quality: Safe Use of Opioids Does Pt have an Active Cancer Diagnosis on the Problem List?: No Quality: Stroke Does the patient have a stroke diagnosis?: No Physical Exam Vital Signs: Vital Signs: Last Vital Signs Temp 97.2 F 07/20/22 07:12 Pulse 81 07/20/22 07:12 Resp 20 07/20/22 07:12 BP 134/73 07/20/22 07:12 Pulse Ox 98 07/20/22 07:12 O2 Del Method Room Air 07/20/22 07:12 BMI result Body Mass Index 28.3 Gen: in no acute distress HEENT: sclera anicteric, moist mucus membranes Neck: supple Lungs: clear to auscultation bilaterally Heart: regular rate and rhythm, no murmurs Abd: soft, non-tender, non-distended Ext: no edema Skin: warm/well-perfused Neuro: alert and oriented x3, no focal findings Psych: appropriate affect DS: Data Data Completed and Pending Completed studies during hospitalization [Text1]: Laboratory Results WBC 6.2 X10*3/uL (4.8-10.8) 07/18/22 06:50 RBC 4.65 X10*6/uL (4.20-5.50) 07/18/22 06:50 Hgb 14.0 g/dl (12.0-16.0) 07/18/22 06:50 Hct 42.2 % (37.0-47.0) 07/18/22 06:50 MCV 90.8 fL (80.0-98.0) 07/18/22 06:50 MCH 30.1 pg (27.0-33.0) 07/18/22 06:50 MCHC 33.2 g/dl (31.0-35.0) 07/18/22 06:50 RDW 13.2 % (11.0-16.0) 07/18/22 06:50 Plt Count 187 X10*3/uL (160-400) 07/18/22 06:50 MPV 9.5 fL (9.4-12.3) 07/18/22 06:50 Immature Gran % (Auto) 0.5 % (0.0-0.4) H 07/18/22 06:50 Neut % (Auto) 73.3 % (45-73) H 07/18/22 06:50 Lymph % (Auto) 19.0 % (20-40) L 07/18/22 06:50 [place] % (Auto) 6.8 % (2-11) 07/18/22 06:50 Eos % (Auto) 0.2 % (0-4) 07/18/22 06:50 Baso % (Auto) 0.2 % (0-2) 07/18/22 06:50 Lymph # (Auto) 1.2 X10*3/uL (1.2-4.9) 07/18/22 06:50 [place] # (Auto) 0.4 X10*3/uL (0.1-1.2) 07/18/22 06:50 Eos # (Auto) 0.0 X10*3/uL (0.0-0.4) 07/18/22 06:50 Baso # (Auto) 0.0 X10*3/uL (0.0-0.2) 07/18/22 06:50 Abs Immat Gran (auto) 0.03 X10*3/uL (0.00-0.03) 07/18/22 06:50 Absolute Neuts (auto) 4.5 x10*3/uL (2.0-8.3) 07/18/22 06:50 Absolute Nucleated RBC 0.000 X10*3/uL (0.0-0.012) 07/18/22 06:50 Nucleated RBC % (auto) 0.0 /100WBC (0.0-0.2) 07/18/22 06:50 Sodium 143 mmol/L (135-145) 07/20/22 05:17 Potassium 3.9 mmol/L (3.3-5.1) 07/20/22 05:17 Chloride 108 mmol/L (96-108) 07/20/22 05:17 Carbon Dioxide 26 mmol/L (22-29) 07/20/22 05:17 Anion Gap 13 (12-20) 07/20/22 05:17 BUN 7 mg/dL (9-16) L 07/20/22 05:17 Creatinine 0.79 mg/dL (0.5-1.4) 07/20/22 05:17 Estim Creat Clear Calc 66.5 07/20/22 05:17 Estimated GFR > 60 07/20/22 05:17 Random Glucose 93 mg/dL (60-115) 07/20/22 05:17 Calcium 8.9 mg/dL (8.4-10.2) 07/20/22 05:17 Magnesium 2.0 mg/dL (1.6-2.6) 07/17/22 13:15 Total Bilirubin 1.1 mg/dL (0.0-1.0) H 07/20/22 05:17 Direct Bilirubin 3.6 mg/dL (0.0-0.5) H 07/18/22 06:50 GGT 558 U/L (7-33) H 07/19/22 08:18 AST 76 U/L (5-31) H 07/20/22 05:17 ALT 259 U/L (0-31) H 07/20/22 05:17 Alkaline Phosphatase 222 U/L (39-117) H 07/20/22 05:17 Troponin I High Sens < 2.7 ng/L (<3.5-17.0) 07/17/22 13:15 Total Protein 5.9 g/dL (6.5-8.0) L 07/20/22 05:17 Albumin 3.6 g/dL (3.5-5.0) 07/20/22 05:17 Lipase 37 U/L (8-78) 07/17/22 13:15 Urine Color Dark Yellow 07/17/22 15:34 Urine Appearance Clear 07/17/22 15:34 Urine pH 7.0 (5.0-9.0) 07/17/22 15:34 Ur Specific [place] 1.015 (1.005-1.025) 07/17/22 15:34 Urine Protein Negative mg/dL (Neg-Trace) 07/17/22 15:34 Urine Glucose (UA) Negative mg/dL (Negative) 07/17/22 15:34 Urine Ketones Negative mg/dL (Negative) 07/17/22 15:34 Urine Blood Negative (Negative) 07/17/22 15:34 Urine Nitrite Negative (Negative) 07/17/22 15:34 Ur Leukocyte Esterase Negative (Negative) 07/17/22 15:34 Urine RBC 3-5 /HPF (0-2) H 07/17/22 15:34 Urine WBC 0-5 /HPF (0-5) 07/17/22 15:34 Ur Squamous Epith Cells 0-2 /HPF (0-2) 07/17/22 15:34 Urine Bacteria None Seen (None Seen) 07/17/22 15:34 Hyaline Casts 0-2 /LPF (0-2) 07/17/22 15:34 Urine Opiates Screen Not Detected (Not Detect) 07/17/22 15:34 Urine Fentanyl Screen Not Detected (Not Detect) 07/17/22 15:34 Acetaminophen < 17 mcg/mL (<30) 07/17/22 13:15 Ur Barbiturates Screen Not Detected (Not Detect) 07/17/22 15:34 Ur Phencyclidine Scrn Not Detected (Not Detect) 07/17/22 15:34 Ur Amphetamines Screen Not Detected (Not Detect) 07/17/22 15:34 U Benzodiazepines Scrn Not Detected (Not Detect) 07/17/22 15:34 Urine Cocaine Screen Not Detected (Not Detect) 07/17/22 15:34 U Marijuana (THC) Screen Not Detected (Not Detect) 07/17/22 15:34 Hepatitis A IgM Ab Nonreactive (Nonreactive) 07/17/22 15:14 Hep Bs Antigen Negative (Negative) 07/17/22 15:14 Hep Bs Antibody NONREACTIVE (Nonreactive) 07/17/22 15:14 Hep B Core Total Ab Nonreactive (Nonreactive) 07/17/22 15:14 Hepatitis C Ab (EIA) Nonreactive (Nonreactive) 07/17/22 15:14 HIV 1&2 Ab/P24 Ag 4thGn Nonreactive (Nonreactive) 07/19/22 08:18 Impressions Chest X-Ray 07/17/22 13:09 IMPRESSION: Unremarkable examination. Abdomen Ultrasound 07/17/22 15:22 IMPRESSION: Hepatic steatosis. Status post cholecystectomy. No biliary ductal dilatation. Abdomen/Pelvis CT 07/17/22 16:36 IMPRESSION: Fatty liver. No biliary ductal dilatation. Punctate nonobstructing calculus right upper kidney. Mild sigmoid diverticulosis. Fleischner guidelines were followed. Cholangiopancreatography MRI 07/18/22 11:35 IMPRESSION: Mild fatty infiltration of the liver. Normal caliber intrahepatic extrahepatic bile ducts. No common bile duct stone Pending studies at discharge: anti-TTG IgG/IgA MAR[place] ASMA AMA anti-LKM Discharge Plan Discharge Anticipated Discharge Date/Time: 07/20/22 09:16 Patient Disposition: Home, Self-Care Discharge Diagnosis: Elevated liver enzymes Acute hepatitis, resolving Referrals: Giana Isbell MD [Primary Care Provider] - 1 Week Jf Howard MD [Physician] - 2 Weeks Discharge Medications: Continued naproxen 500 mg tablet,delayed release (DR/EC) 500 mg PO BID PRN (Reason: for pain) Qty: 60 1RF venlafaxine 37.5 mg Tablet 37.5 mg PO BID cholecalciferol (vitamin D3) 50 mcg (2,000 unit) Tablet 50 mcg PO DAILY docusate sodium 100 mg Capsule 100 mg PO DAILY PRN (Reason: Constipation) quetiapine 100 mg tablet 100 mg PO BEDTIME sumatriptan succinate 100 mg tablet 100 mg PO Q2-4H PRN (Reason: Headache) Rx Instructions: do not exceed 2 doses per 24 hrs nortriptyline 50 mg capsule 100 mg PO BEDTIME loratadine 10 mg tablet 10 mg PO DAILY PRN (Reason: allergies) acetaminophen 650 mg tablet extended release 650 mg PO Q12H PRN (Reason: Pain) sertraline 100 mg tablet 150 mg PO DAILY levothyroxine 50 mcg tablet 100 mcg PO DAILY Discharge Orders: Discharge Order (Routine); Ordered 07/20/22 Ordered By: Anjana Ortega Diet: Advance to usual diet Activity on Discharge: As tolerated Stand Alone Forms: Patient Portal Discharge page Other Ambulatory Orders: Comprehensive Met. Panel (Routine) Timeframe: 1 Week Facility: [facility] - Location: Laboratory Ordered By: Anjana Ortega Care Plan Goals: Liver health Health Concerns: Elevated liver enzymes Acute hepatitis, resolving Plan of Treatment: Repeat labs [CMP] in 1 week Follow up with Dr Howard in 2 weeks for results of pending liver tests Please follow up with your primary care doctor within 1 week. Return to the hospital if you experience recurrent or worsening symptoms. Assessment: See Discharge Summary.
--- NOTE | 2022-07-20 09:48 | MHC.CM.PN ---
Patient has been medically cleared for dc to home today, self care. Last IMM addressed on 07/18/2022.
[2022-07-21 17:13] LABS: Immunoglobulin A 138 mg/dL (47-310)
[2022-07-21 17:13] LABS: Immunoglobulin G 872 mg/dL (600-1640)
[2022-07-22 09:19] LABS: Transglutaminase Ab IgG <1.0 U/mL; Transglutaminase IgA <1.0 U/mL
[2022-07-23 07:39] LABS: Anti Nuclear Antibody Screen NEGATIVE (NEGATIVE)
[2022-07-25 14:29] LABS: Smooth Muscle Antibody <20 U (<20)
[2022-07-26 14:53] LABS: Liver Kidney Microsomal Ab <=20.0 U (<=20.0)
== END 2022-07-20 11:45 | disposition home or self-care (01) | DRG 392 ==
LOC: HO.ED 16:19 → HO.EDOVER 17:53 → HO.IMC 07-18 05:53
PROVIDERS: Hospitalist; Physician Assistant; Admitting Provider Physician Assistant; Emergency Provider Emergency Medicine; PCP Internal Medicine; Visit Provider Family Medicine
DX: K52.9 Noninfective gastroenteritis and colitis, unspecified (principal); K76.0 Fatty (change of) liver, not elsewhere classified; E03.9 Hypothyroidism, unspecified; F39 Unspecified mood [affective] disorder; G43.909 Migraine, unspecified, not intractable, without status migrainosus; K59.09 Other constipation; Z88.0 Allergy status to penicillin; Z88.5 Allergy status to narcotic agent; Z88.6 Allergy status to analgesic agent; Z79.890 Hormone replacement therapy; Z79.899 Other long term (current) drug therapy
CPT/HCPCS: 36415; 71046; 74176; 74181; 76705; 80048; 80053; 80076; 80143; 80307; 81001; 82784; 82977; 83690; 83735; 84484; 85025; 86015; 86038; 86364; 86376; 86704; 86706; 86709; 86803; 87340; 87389; 93005; 99285; J1170; J1650; J2270; J2405

== ENCOUNTER 2022-08-07 01:53 | Emergency (ER) | payer OTHER, SELFPAY ==
[2022-08-07 02:41] VITALS: BP 146/72; PULSE 68; RESP 18; TEMP 36.1; O2SAT 99; BMI 26.6
--- NOTE | 2022-08-07 05:50 | ED.ANIMALBIT ---
HPI - Animal Bite General Chief Complaint: Animal Bite Stated Complaint: left hand and back of head swelling Time Seen by Provider: 08/07/22 05:20 Source: patient Mode of arrival: ambulatory Limitations: no limitations History of Present Illness HPI narrative: Patient comes to the emergency room complaining of a wasp sting to the dorsum of the left hand and to the scalp. Patient states it is very itchy, has been present for 2 days now. Patient denies any allergic reaction, denies urticaria, denies respiratory difficulty or swelling. Related Data Home Medications Medication Instructions Recorded Confirmed acetaminophen 650 mg 650 mg PO Q12H PRN Pain 12/20/19 07/17/22 tablet,extended release loratadine 10 mg tablet 10 mg PO DAILY PRN allergies 12/20/19 07/17/22 nortriptyline 50 mg capsule 100 mg PO BEDTIME 12/20/19 07/17/22 quetiapine 100 mg tablet 100 mg PO BEDTIME 12/20/19 07/17/22 sumatriptan succinate 100 mg tablet 100 mg PO Q2-4H PRN Headache 12/20/19 07/17/22 sertraline 100 mg tablet 150 mg PO DAILY 10/06/20 07/17/22 levothyroxine 50 mcg tablet 100 mcg PO DAILY 06/30/22 07/17/22 cholecalciferol (vitamin D3) 50 50 mcg PO DAILY 07/17/22 07/17/22 mcg (2,000 unit) tablet docusate sodium 100 mg capsule 100 mg PO DAILY PRN Constipation 07/17/22 07/17/22 venlafaxine 37.5 mg tablet 37.5 mg PO BID 07/17/22 07/17/22 Previous Rx's Medication Instructions Recorded naproxen 500 mg tablet,delayed 500 mg PO BID PRN for pain #60 tabs 12/22/20 release diphenhydramine HCl 25 mg tablet 25 mg PO TID PRN itching #10 tabs 08/07/22 (Benadryl Allergy) hydrocortisone 2.5 % topical cream 1 appl topical TID PRN itching #28 08/07/22 grams Allergies Allergy/AdvReac Type Severity Reaction Status Date / Time acetaminophen [Vicodin] Allergy Unknown unk Verified 07/17/22 12:58 Penicillins AdvReac Mild HYPERTENSIO Verified 07/17/22 12:58 N hydrocodone [From VICODIN] AdvReac Unknown HIGH BP Verified 07/17/22 12:58 Review of Systems Review of Systems: Constitutional : No Weight loss, No Fever, No Chills, No Night Sweats, No Fatigue, No Malaise ENT/Mouth : No Hearing loss, No Ear Pain, No Nasal Congestion, No Sinus Pain, No Hoarseness, No sore throat, No Rhinorrhea, No Swallowing Difficulty Eyes: No Eye Pain, No Swelling, No Redness, No Foreign Body, No Discharge, No Vision Changes Cardiovascular : No Chest Pain, No SOB, No Dyspnea on Exertion, No Orthopnea, No Edema, No Palpitations Respiratory : No Cough, No Sputum, No Wheezing, No Smoke Exposure, No Dyspnea Gastrointestinal : No Nausea, No Vomiting, No Diarrhea, No Constipation, No abdominal Pain, No Hematochezia, No Melena Genitourinary : no irregular bleeding, No Dysuria, No Urinary Frequency, No Hematuria, No Urinary Incontinence, No Urgency, No Flank Pain, No Urinary Flow Changes, No Hesitancy Musculoskeletal : No joint pain, No Myalgias, No Joint Swelling Skin : Complaining of a was put sting to the hand and scalp Neuro : No Weakness, No Numbness, No Paresthesias, No Loss of Consciousness, No Dizziness, No Headache Psych : No Anxiety/Panic, No Depression, No SI/HI/AH/VH, No Social Issues, Heme/Lymph: No Bruising, No Bleeding,No Lymphadenopathy Endocrine : No Polyuria, No Polydipsia, No Temperature Intolerance PMFSH Past Medical History Medical History Hypothyroidism Multinodular thyroid Vitamin D deficiency Surgical History Hx of appendectomy Hx of cholecystectomy Hx of epicondylectomy Hx of foot surgery Hx of thyroidectomy Tubal ligation status Family History Family History Father No problems noted. Mother Breast cancer Hypertension Social History Social History Household Members: Family Household Members Other:: 2 grand kids Housing: House Alcohol intake: never Patient Tobacco Use Status: Never used Tobacco Advance Directives: No Advance Directives Information Provided: Yes service: No Current occupational status: unemployed Physical Exam ED Vital Signs: Vital Signs - 24 hr 08/07/22 02:41 Temperature 97 F Pulse Rate 68 Respiratory Rate 18 Blood Pressure 146/72 H Pulse Oximetry 99 Oxygen Delivery Method Room Air BMI result Body Mass Index 26.6 Const Other: Appearance: Alert. Oriented X3. No acute distress. Eyes: Pupils equal, round and reactive to light. ENT: Pharynx normal. Neck: Normal inspection. Neck supple. No lymph nodes noted. No crepitus CVS: Normal heart rate and rhythm. Pulses normal. Normal S1 and S2 Respiratory: No respiratory distress. Breath sounds normal. No Wheezing. No rales Abdomen: Soft and nontender. No rigidity. No distention. Skin: Skin warm and dry. Erythema to the dorsum of the left hand between the 4th and 5th digits, also erythema to a 1 x 1 cm area to the scalp posteriorly Extremities: No lower extremity edema. No Lacerations. No Rash Neuro: Oriented X 3. No motor deficit. No sensory deficit. Moving all extremities. No slurred speech. CN 2 through 12 grossly intact Psych: calm, cooperative, normal affect Medical Decision Making Medical Decision Making MDM Narrative: -I discussed the physical exam with the patient, no cellulitis, consistent with a bug bite -patient was given a prescription for home. Differential Diagnosis Differential Diagnoses: The differential diagnosis associated with the presentation includes (Was sting, bee sting, insect bite) Discharge Plan Discharge Clinical Impression: Sting, wasp Patient Disposition: Home, Self-Care Instructions: Insect Bite or Sting (ED) Additional Instructions: Please follow-up with your primary care physician tomorrow. If you have any worsening or new symptoms, please return to the emergency room or call 911 Prescriptions: New hydrocortisone 2.5 % cream 1 appl topical TID PRN (Reason: itching) Qty: 28 0RF diphenhydramine HCl [Benadryl Allergy] 25 mg tablet 25 mg PO TID PRN (Reason: itching) Qty: 10 0RF No Action naproxen 500 mg tablet,delayed release (DR/EC) 500 mg PO BID PRN (Reason: for pain) Qty: 60 1RF venlafaxine 37.5 mg Tablet 37.5 mg PO BID cholecalciferol (vitamin D3) 50 mcg (2,000 unit) Tablet 50 mcg PO DAILY docusate sodium 100 mg Capsule 100 mg PO DAILY PRN (Reason: Constipation) quetiapine 100 mg tablet 100 mg PO BEDTIME sumatriptan succinate 100 mg tablet 100 mg PO Q2-4H PRN (Reason: Headache) Rx Instructions: do not exceed 2 doses per 24 hrs nortriptyline 50 mg capsule 100 mg PO BEDTIME loratadine 10 mg tablet 10 mg PO DAILY PRN (Reason: allergies) acetaminophen 650 mg tablet extended release 650 mg PO Q12H PRN (Reason: Pain) sertraline 100 mg tablet 150 mg PO DAILY levothyroxine 50 mcg tablet 100 mcg PO DAILY
== END 2022-08-07 05:57 | disposition home or self-care (01) ==
PROVIDERS: Emergency Provider Emergency Medicine; PCP Internal Medicine
DX: L29.9 Pruritus, unspecified (principal); T63.461A Toxic effect of venom of wasps, accidental (unintentional), initial encounter; Y92.9 Unspecified place or not applicable
CPT/HCPCS: 99282; 99283

== ENCOUNTER 2022-09-08 08:42 | Outpatient (AMB) | payer OTHER, SELFPAY ==
--- NOTE | 2022-09-08 08:52 | MHC.OFFVIS ---
Intake Vital Signs 09/08/22 08:58 Height 5 ft 5 in Weight 145 lb BMI 24.1 BP 109/55 L Blood Pressure Location Lt brachial Position Sitting Pulse 85 Intake Visit Reasons: acute hepatitis Intake Note: Patient new consult for acute hepatitis. Patient cc: abdominal bloating, GERD, and Constipation, denies any other problems with GI. Signal Intelligence/Electronic War[employer] Required: Yes Signal Intelligence/Electronic War[employer] Name: Lou [place] interpeter. Accompanied by: Self / Same As Patient Allergies acetaminophen [Vicodin] Allergy (Unknown, Verified 09/08/22 08:52) unk Penicillins Adverse Reaction (Mild, Verified 09/08/22 08:52) HYPERTENSION hydrocodone [From VICODIN] Adverse Reaction (Unknown, Verified 09/08/22 08:52) HIGH BP Medication List - Last Reconciled 09/08/22 by Anna Zamudio PA-C cholecalciferol (vitamin D3) 50 mcg PO DAILY docusate sodium 100 mg PO DAILY PRN hydrocortisone 2.5% 1 appl topical TID PRN levothyroxine 100 mcg PO DAILY loratadine 10 mg PO DAILY PRN nortriptyline 100 mg PO BEDTIME quetiapine 100 mg PO BEDTIME sertraline 150 mg PO DAILY sumatriptan succinate 100 mg PO Q2-4H PRN venlafaxine 37.5 mg PO BID HPI HPI Comments History of Present Illness Details 57-year-old female seen by Dr. Howard inpatient for acute hepatitis in [id number] presents today she has completed by a traffic sign supervisor, she says she feeling well as completely resolved abdominal pain She was admitted for acute hepatitis- viral serologies were negative levothyroxine had been increased that week to 100mcg - started feeling bad she then reduced back to 50 mcg- but went to ED with abdominal pain at which time she was admitted Ultrasound, CT as well as MRI-GI consult by Dr. Howard Patient states she began to improve, her diet was increased abdominal pain has resolved Currently taking levothyroxine mcg with no issues-followed up with her PCP Appetite is fairly good, she does not eat a lot avoid certain foods intentionally Bowels are normal She has not had jaundice, nausea, vomiting, hematemesis, hematochezia fever or chills Discharge Patient Disposition: Home, Self-Care Discharge Diagnosis: Elevated liver enzymes Acute hepatitis, resolving Referrals: Giana Isbell MD [Primary Care Provider] - 1 Week Jf Howard MD [Physician] - 2 Weeks COUNTS INCLUDE 234 BEDS AT THE [facility] Medical History Hypothyroidism Multinodular thyroid Vitamin D deficiency Surgical History Hx of appendectomy Hx of cholecystectomy Hx of epicondylectomy Hx of foot surgery Hx of thyroidectomy Tubal ligation status Family History Father No problems noted. Mother Breast cancer Hypertension Social History Household Members: Family Household Members Other:: 2 grand kids Housing: House Alcohol intake: never Patient Tobacco Use Status: Never used Tobacco service: No Current occupational status: unemployed Female Reproductive History Menstrual Age of Menarche: 10 Review of Systems Const All systems reviewed & are unremarkable except as noted in HPI and below Denies body aches, Denies chills, Reports fatigue and Denies fever(s) Card Denies chest pain and Denies dyspnea Resp Denies cough and Denies dyspnea GI Denies abdominal pain, Denies hematochezia, Denies change in bowel habits, Denies heartburn, Denies nausea and Denies vomiting Musc Denies arthralgias Skin/Breast Denies change in pigmentation and Denies rash Psych Reports anxiety Endo Reports fatigue Physical Exam Vital Signs: Last Vital Signs Pulse 85 09/08/22 08:58 BP 109/55 L 09/08/22 08:58 BMI result Body Mass Index 24.1 Const General: cooperative, healthy appearing, comfortable and no acute distress Orientation/consciousness: patient oriented x3 Limitations: language barrier Eyes Sclerae: sclerae normal Resp Effort & Inspection: normal respiratory effort and able to speak in complete sentences Auscultation: clear to auscultation bilaterally, no rales, no rhonchi and no wheezes Cardio Rate: regular rate Rhythm: regular rhythm Heart sounds: S1 normal heart sound present and S2 normal heart sound present GI Inspection: Yes normal to inspection Palpation (GI): Soft to palpation and nontender Percussion: Yes normal to percussion Auscultation: normal bowel sounds Skin General skin exam: no rashes or lesions noted and no jaundice Neuro General: patient oriented x3 Extrem General: Yes full ROM Psych Appearance: grossly normal and well kempt Mental Status: mental status grossly normal Speech and movement: Normal speech and movement present and Clear speech present Affect: normal affect Attitude: cooperative Thought process: Normal thought process present Thought content: Normal thought content present Insight: Good insight present (Psych) Judgement: Good judgement present (Psych) Results Reviewed Results Reviewed: MRI- In pt MR/MR MRCP IMPRESSION: Mild fatty infiltration of the liver. Normal caliber intrahepatic extrahepatic bile ducts. No common bile duct stone? CT Inpt CT/CT abdomen pelvis wo IV con IMPRESSION: Fatty liver. No biliary ductal dilatation. ? Punctate nonobstructing calculus right upper kidney. ? Mild sigmoid diverticulosis. ? Fleischner guidelines were followed. US/US abdomen limited IMPRESSION: Hepatic steatosis. ? Status post cholecystectomy. No biliary ductal dilatation. U/S- Inpt Assessment & Plan Assessment & Plan (1) Acute hepatitis: Comment: Reviewed previous labs, ED no, hospitalist's note GI consult note Code(s): B17.9 - Acute viral hepatitis, unspecified Plan: Update lab (2) Transaminitis: Code(s): R74.01 - Elevation of levels of liver transaminase levels Plan: Update lab (3) Abdominal pain: Comment: Resolved Code(s): R10.9 - Unspecified abdominal pain Plan: No GI complaints (4) Hospital discharge follow-up: Comment: She feels well, she has recovered no GI or general complaints other than mild fatigue Code(s): Z09 - Encounter for follow-up examination after completed treatment for conditions other than malignant neoplasm Plan: Advance diet Call with any questions or concerns Orders: Orders Comprehensive Met. Panel 09/08/22 B17.9 - Acute viral hepatitis, unspecified, R74.01 - Elevation of levels of liver transaminase levels Thyroid Stimulating Hormone 09/08/22 B17.9 - Acute viral hepatitis, unspecified, R10.9 - Unspecified abdominal pain, R74.01 - Elevation of levels of liver transaminase levels Patient Instructions: Very pleasant 57-year-old female follows up after hospital admission for acute hepatitis she is accompanied by an [facility] watchguard She will update blood work Advance diet as tolerated Encouraged her to call with questions or concerns-change symptoms eat We will see her back in a couple weeks for progress Coding Level of Care Code New Pt Level 4 (15577) Diagnoses Acute hepatitis B17.9 Transaminitis R74.01 Abdominal pain R10.9 Hospital discharge follow-up Z09 Time Spent (min) 40 Comment Signal Intelligence/Electronic Warfare
[2022-09-08 08:58] VITALS: BP 109/55; PULSE 85; BMI 24.1
== END 2022-09-08 09:20 | disposition home or self-care (01) ==
PROVIDERS: PCP Internal Medicine; Visit Provider Physician Assistant
DX: B17.9 Acute viral hepatitis, unspecified (principal); R74.01 Elevation of levels of liver transaminase levels; R10.9 Unspecified abdominal pain; Z09 Encounter for follow-up examination after completed treatment for conditions other than malignant neoplasm
CPT/HCPCS: 99204

== ENCOUNTER → 2022-09-08 08:42 | Outpatient (BNVA) | payer OTHER, SELFPAY | PROVIDERS: PCP Internal Medicine; Visit Provider Physician Assistant | DX: Z09 Encounter for follow-up examination after completed treatment for conditions other than malignant neoplasm (principal); B17.9 Acute viral hepatitis, unspecified; R74.01 Elevation of levels of liver transaminase levels; R10.9 Unspecified abdominal pain | CPT/HCPCS: 99202 ==

== ENCOUNTER 2022-09-27 07:39 | Outpatient (REF) | payer OTHER, SELFPAY ==
[2022-09-27 08:49] LABS: Alanine Aminotransferase 112 U/L (0-31); Albumin Level 3.9 g/dL (3.5-5.0); Alkaline Phosphatase 166 U/L (39-117); Anion Gap 9 (12-20); Aspartate Amino Transferase 63 U/L (5-31); Bilirubin Total 0.4 mg/dL (0.0-1.0); Blood Urea Nitrogen 15 mg/dL (9-16); Calcium 9.6 mg/dL (8.4-10.2); Carbon Dioxide 29 mmol/L (22-29); Chloride 108 mmol/L (96-108); Estimated Glomerular Filt Rate 58; Glucose Random 101 mg/dL (60-115); Potassium 3.8 mmol/L (3.3-5.1); Sodium 142 mmol/L (135-145)
[2022-09-27 09:07] LABS: Thyroid Stimulating Hormone 3.97 uIU/mL (0.32-4.0)
== END 2022-09-27 07:40 | disposition home or self-care (01) ==
LOC: HO.LAB 07:39
PROVIDERS: PCP Internal Medicine; Visit Provider Physician Assistant
DX: B17.9 Acute viral hepatitis, unspecified (principal); R74.01 Elevation of levels of liver transaminase levels; R10.9 Unspecified abdominal pain; E03.9 Hypothyroidism, unspecified
CPT/HCPCS: 36415; 80053; 84443; 99212

== ENCOUNTER 2022-09-27 07:58 | Outpatient (AMB) | payer OTHER, SELFPAY ==
--- NOTE | 2022-09-27 08:08 | A.OFFVIS_ITS ---
Intake Vital Signs 09/27/22 08:09 Height 5 ft 5 in Weight 138 lb BMI 23.0 BP 113/74 Blood Pressure Location Lt brachial Position Sitting Intake Visit Reasons: Follow up Intake Note: Patient follow up for abdominal pain. Patient cc: abdominal pain on and off, Nauseas, Constipation, acid reflex with burning sensation come and go, and some Dysphagia. Medical Services Coordinator Required: Yes Medical Services Coordinator Name: Rip [id number] Accompanied by: Self / Same As Patient Allergies acetaminophen [Vicodin] Allergy (Unknown, Verified 09/27/22 08:08) unk Penicillins Adverse Reaction (Mild, Verified 09/27/22 08:08) HYPERTENSION hydrocodone [From VICODIN] Adverse Reaction (Unknown, Verified 09/27/22 08:08) HIGH BP Medication List - Last Reconciled 09/27/22 by ERICA Lee-C cholecalciferol (vitamin D3) 50 mcg PO DAILY docusate sodium 100 mg PO DAILY PRN hydrocortisone 2.5% 1 appl topical TID PRN levothyroxine 100 mcg PO DAILY loratadine 10 mg PO DAILY PRN nortriptyline 100 mg PO BEDTIME quetiapine 100 mg PO BEDTIME sertraline 150 mg PO DAILY sumatriptan succinate 100 mg PO Q2-4H PRN venlafaxine 37.5 mg PO BID HPI HPI Comments History of Present Illness Details A 57 y/o F- f/u for lab results after seen for hospital f/u for acute hepatitis-she did blood work this a.m just before appointment-no results available for review She c/o pain upper part of her stomach- intermittent- certain kinds of things, certain food- unable to detail-discomfort comes and goes resolved on its own Acid reflux- seems to come and go unable to identify anything specific, appetite is fairly good Mild fatigue- Her bowels are normal She has no nausea, vomiting, hematemesis, hematochezia no fever or chills-no jaundice recap 09/08/22 Results Reviewed: MRI- In pt MR/MR MRCP IMPRESSION: Mild fatty infiltration of the liver. Normal caliber intrahepatic extrahepatic bile ducts. No common bile duct stone? CT Inpt CT/CT abdomen pelvis wo IV con IMPRESSION: Fatty liver. No biliary ductal dilatation. ? Punctate nonobstructing calculus right upper kidney. ? Mild sigmoid diverticulosis. ? Fleischner guidelines were followed. US/US abdomen limited IMPRESSION: Hepatic steatosis. ? Status post cholecystectomy. No biliary ductal dilatation. U/S- Inpt Assessment & Plan Assessment & Plan (1) Acute hepatitis: ?Comment: Reviewed previous labs, ED no, hospitalist's note GI consult note ?Code(s): B17.9 - Acute viral hepatitis, unspecified ?Plan: Update lab (2) Transaminitis: ?Code(s): R74.01 - Elevation of levels of liver transaminase levels ?Plan: Update lab (3) Abdominal pain: ?Comment: Resolved ?Code(s): R10.9 - Unspecified abdominal pain ?Plan: No GI complaints (4) Hospital discharge follow-up: ?Comment: She feels well, she has recovered no GI or general complaints other than mild fatigue ?Code(s): Z09 - Encounter for follow-up examination after completed treatment for conditions other than malignant neoplasm ?Plan: Advance diet Call with any questions or concerns ? ? ? Orders: Orders Comprehensive Met. Panel 09/08/22 B17.9 - Acute sinai l hepatitis, unspe cified, R74.01 - E levation of levels of liver transami nase levels ? Thyroid Stimulatin g Hormone 09/08/22 B17.9 - Acute sinai l hepatitis, unspe cified, R10.9 - Un specified abdomina l pain, R74.01 - E levation of levels of liver transami nase levels ?Patient Instructions: Very pleasant 57-year-old female follows up after hospital admission for acute hepatitis she is accompanied by an [facility] loss control technician She will update blood work Advance diet as tolerated [facility] Medical History Hypothyroidism Multinodular thyroid Vitamin D deficiency Surgical History Hx of appendectomy Hx of cholecystectomy Hx of epicondylectomy Hx of foot surgery Hx of thyroidectomy Tubal ligation status Family History Father No problems noted. Mother Breast cancer Hypertension Social History Household Members: Family Household Members Other:: 2 grand kids Housing: House Alcohol intake: never Patient Tobacco Use Status: Never used Tobacco service: No Current occupational status: unemployed Female Reproductive History Menstrual Age of Menarche: 10 Review of Systems Const All systems reviewed & are unremarkable except as noted in HPI and below Denies chills, Reports fatigue, Denies fever(s) and Denies poor appetite Card Denies chest pain and Denies dyspnea Resp Denies dyspnea GI Reports abdominal pain, Denies hematochezia, Denies change in bowel habits and Reports heartburn Psych Reports depression, Denies hallucinations, Denies homicidal ideation and Denies suicidal ideation Endo Reports fatigue Physical Exam Vital Signs: Last Vital Signs BP 113/74 09/27/22 08:09 BMI result Body Mass Index 23.0 Const General: cooperative, healthy appearing, comfortable and no acute distress Orientation/consciousness: patient oriented x3 Limitations: language barrier Eyes Sclerae: sclerae normal Resp Effort & Inspection: normal respiratory effort and able to speak in complete sentences Auscultation: clear to auscultation bilaterally Cardio Rate: regular rate Rhythm: regular rhythm Heart sounds: S1 normal heart sound present and S2 normal heart sound present GI Palpation (GI): Soft to palpation, nontender and no guarding Auscultation: normal bowel sounds Skin General skin exam: no rashes or lesions noted and no jaundice Neuro General: patient oriented x3 Extrem General: Yes full ROM Psych Appearance: grossly normal Mental Status: mental status grossly normal Speech and movement: Normal speech and movement present Affect: Labile affect present Attitude: cooperative Thought process: Normal thought process present Thought content: Normal thought content present Insight: Good insight present (Psych) Judgement: Good judgement present (Psych) Assessment & Plan Assessment & Plan (1) Acute hepatitis: Comment: Much improved, no abdominal pain, Again-Reviewed previous labs, ED note, hospitalist's note GI consult note MRCP + CT unremarkable besides fatty liver. Viral workup negative including HAV, HBV, HCV, and HIV. No portal vein thrombosis on US. Abdominal pain resolved completely. Possibly due to gastroenteritis. Code(s): B17.9 - Acute viral hepatitis, unspecified (2) Hospital discharge follow-up: Comment: She feels well, she has recovered no GI or general complaints Acid relfux- Code(s): Z09 - Encounter for follow-up examination after completed treatment for conditions other than malignant neoplasm Plan: Labs pending Medications: New famotidine 20 mg PO DAILY 30 tabs 3RF Patient Instructions: she will await labs- Ill ask SP to call her Reflux precautions- Famotodine F/u 4 wks progress if labs ik- call with any concerns Coding Level of Care Code Est Pt Level 3 (24381) Diagnoses Acute hepatitis B17.9 Hospital discharge follow-up Z09 Time Spent (min) 30 Comment [id number]
[2022-09-27 08:09] VITALS: BP 113/74; BMI 23.0
== END 2022-09-27 08:59 | disposition home or self-care (01) ==
PROVIDERS: PCP Internal Medicine; Visit Provider Physician Assistant
DX: B17.9 Acute viral hepatitis, unspecified (principal); Z09 Encounter for follow-up examination after completed treatment for conditions other than malignant neoplasm
CPT/HCPCS: 99213

== ENCOUNTER 2022-10-07 18:32 | Outpatient (REF) | payer OTHER, SELFPAY | END 2022-10-07 18:33 | disposition home or self-care (01) | LOC: HO.HHCLNP 18:32 | PROVIDERS: Visit Provider Family Medicine | DX: R30.0 Dysuria (principal) | CPT/HCPCS: 87086; 87088; 87147; 87186 ==

== ENCOUNTER 2022-11-08 12:04 | Outpatient (REF) | payer OTHER, SELFPAY ==
[2022-11-08 14:15] LABS: Alanine Aminotransferase 47 U/L (0-31); Albumin Level 3.9 g/dL (3.5-5.0); Alkaline Phosphatase 135 U/L (39-117); Anion Gap 12 (12-20); Aspartate Amino Transferase 35 U/L (5-31); Bilirubin Total 0.4 mg/dL (0.0-1.0); Blood Urea Nitrogen 12 mg/dL (9-16); Calcium 9.1 mg/dL (8.4-10.2); Carbon Dioxide 28 mmol/L (22-29); Chloride 105 mmol/L (96-108); Estimated Glomerular Filt Rate > 60; Glucose Random 127 mg/dL (60-115); Potassium 3.5 mmol/L (3.3-5.1); Sodium 141 mmol/L (135-145); Total Protein 7.3 g/dL (6.5-8.0)
== END 2022-11-08 12:05 | disposition home or self-care (01) ==
LOC: HO.LAB 12:04
PROVIDERS: PCP Internal Medicine; Visit Provider Physician Assistant
DX: R74.01 Elevation of levels of liver transaminase levels (principal); K75.9 Inflammatory liver disease, unspecified
CPT/HCPCS: 36415; 80053; 99212

== ENCOUNTER 2022-11-08 12:04 | Outpatient (AMB) | payer OTHER, SELFPAY ==
--- NOTE | 2022-11-08 12:09 | MHC.OFFVIS ---
Intake Vital Signs 11/08/22 12:10 Height 5 ft Weight 137 lb BMI 26.8 BP 103/51 L Blood Pressure Location Lt brachial Position Sitting Pulse 91 Intake Visit Reasons: 4 week fu Intake Note: Patient follow up for Acute Hepatitis. Patient cc: some swallowing problems on and off. Community Reinvestment Act Officer Required: Yes Community Reinvestment Act Officer Name: Vitor [id number] Accompanied by: Self / Same As Patient Allergies acetaminophen [Vicodin] Allergy (Unknown, Verified 11/08/22 12:08) unk Penicillins Adverse Reaction (Mild, Verified 11/08/22 12:08) HYPERTENSION hydrocodone [From VICODIN] Adverse Reaction (Unknown, Verified 11/08/22 12:08) HIGH BP HPI HPI Comments History of Present Illness Details A 57 y/o female f/u for progress after admission for acute hepatitis- she saw us in september- enzymes trending down Here today-has URI tested neg for covid per her report Appetite not great due to sinus issues- otherwise is fine Bowels normal Colonoscopy 2015 normal No nausea, vomiting, hematemesis, hematochezia fever or chills No jaundice PFSH Medical History Hypothyroidism Multinodular thyroid Vitamin D deficiency Surgical History Tubal ligation status Hx of foot surgery Hx of epicondylectomy Hx of cholecystectomy Hx of thyroidectomy Hx of appendectomy Family History Father No problems noted. Mother Breast cancer Hypertension Social History Household Members: Family Household Members Other:: 2 grand kids Housing: House Alcohol intake: never Patient Tobacco Use Status: Never used Tobacco service: No Current occupational status: unemployed Female Reproductive History Menstrual Age of Menarche: 10 Review of Systems Const All systems reviewed & are unremarkable except as noted in HPI and below ENT Reports hoarseness and Reports nasal discharge Card Denies chest pain Resp Reports cough GI Denies abdominal pain, Denies heartburn, Denies nausea and Denies vomiting Physical Exam Vital Signs: Last Vital Signs Pulse 91 11/08/22 12:10 BP 103/51 L 11/08/22 12:10 BMI result Body Mass Index 26.8 Const General: cooperative, healthy appearing, comfortable and no acute distress Orientation/consciousness: patient oriented x3 Limitations: no limitations Eyes Sclerae: sclerae normal Resp Effort & Inspection: normal respiratory effort and able to speak in complete sentences Auscultation: clear to auscultation bilaterally and no wheezes Cardio Rate: regular rate Rhythm: regular rhythm Heart sounds: S1 normal heart sound present and S2 normal heart sound present GI Palpation (GI): Soft to palpation and nontender Auscultation: normal bowel sounds Skin General skin exam: no rashes or lesions noted Neuro General: patient oriented x3 Extrem General: Yes full ROM Psych Appearance: grossly normal and well kempt Speech and movement: Normal speech and movement present and Clear speech present Affect: normal affect Attitude: cooperative Thought process: Normal thought process present Thought content: Normal thought content present Insight: Good insight present (Psych) Judgement: Good judgement present (Psych) Results Reviewed Results Reviewed: Results Reviewed: MRI- In pt MR/MR MRCP IMPRESSION: Mild fatty infiltration of the liver. Normal caliber intrahepatic extrahepatic bile ducts. No common bile duct stone? CT Inpt CT/CT abdomen pelvis wo IV con IMPRESSION: Fatty liver. No biliary ductal dilatation. ? Punctate nonobstructing calculus right upper kidney. ? Mild sigmoid diverticulosis. ? Fleischner guidelines were followed. US/US abdomen limited IMPRESSION: Hepatic steatosis. ? Status post cholecystectomy. No biliary ductal dilatation. 2016- Colonoscopy- repeat 10 years- Assessment & Plan Assessment & Plan (1) Transaminitis: Comment: trending down Code(s): R74.01 - Elevation of levels of liver transaminase levels Plan: Repeat enzymes Orders: Orders Comprehensive Met. Panel 11/08/22 R74.01 - Elevation of levels of liver transaminase levels Patient Instructions: reviewed labs, course of events repeat enzymes F/u pcp for URI Coding Level of Care Code Est Pt Level 3 (37204) Diagnoses Transaminitis R74.01 Time Spent (min) 30 Comment [id number]
[2022-11-08 12:10] VITALS: BP 103/51; PULSE 91; BMI 26.8
== END 2022-11-08 13:38 | disposition home or self-care (01) ==
PROVIDERS: PCP Internal Medicine; Visit Provider Physician Assistant
DX: R74.01 Elevation of levels of liver transaminase levels (principal)
CPT/HCPCS: 99213

== ENCOUNTER 2022-12-08 13:50 | Outpatient (REF) | payer OTHER, SELFPAY ==
--- NOTE | ~2022-12-08 | MM_ITS ---
EXAMINATION: MM SCREENING DIGITAL BREAST TOMOSYNTHESIS, BILATERAL CLINICAL INFORMATION: Screening. Asymptomatic. COMPARISON: Mammography: This study is compared with prior exams dating back to 2017. TECHNIQUE: Digital breast tomosynthesis is performed in both the craniocaudal and mediolateral oblique views along with computer-aided detection (CAD). Synthesized 2D images are generated from the tomosynthesis. FINDINGS: The breasts are heterogeneously dense, which may obscure small masses (ACR BI-RADS breast composition Category c). There are no significant masses, abnormal calcifications, or other abnormalities. MM/MM tomosynthesis screening BI IMPRESSION: No mammographic evidence of malignancy. ASSESSMENT: BI-RADS BI-RADS 1 - Negative RECOMMENDATION: Routine annual mammography screening. 1 year F/U This examination should not preclude the clinical evaluation of a suspicious palpable abnormality. This patient's information was entered into a reminder system with a target due date for their next mammogram.
== END 2022-12-08 13:51 | disposition home or self-care (01) ==
LOC: HO.MAMMO 13:50
PROVIDERS: PCP Internal Medicine; Visit Provider Internal Medicine
DX: Z12.31 Encounter for screening mammogram for malignant neoplasm of breast (principal)
CPT/HCPCS: 77063; 77067

== ENCOUNTER → 2022-12-08 14:15 | Outpatient (BNV) | payer OTHER, SELFPAY | PROVIDERS: PCP Internal Medicine; Visit Provider Radiology Diagnostic Radiology | DX: Z12.31 Encounter for screening mammogram for malignant neoplasm of breast (principal) | CPT/HCPCS: 77063; 77067 ==

== ENCOUNTER 2022-12-29 14:27 | Outpatient (REF) | payer OTHER, SELFPAY ==
[2022-12-29 18:07] LABS: TSH reflex Free T4 3.25 uIU/mL (0.32-4.0)
== END 2022-12-29 14:28 | disposition home or self-care (01) ==
LOC: CF 14:27
PROVIDERS: Visit Provider Internal Medicine
DX: E03.9 Hypothyroidism, unspecified (principal)
CPT/HCPCS: 36415; 84443

== ENCOUNTER 2023-01-13 06:35 | Inpatient (IN) | payer OTHER, SELFPAY ==
[2023-01-13] VITALS (7 sets, daily range): BP systolic 106–158; BP diastolic 54–88; PULSE 77–83; RESP 17–20; TEMP 36.1–36.7; O2SAT 92–100; BMI 27.9
--- NOTE | ~2023-01-13 | FL_ITS ---
EXAMINATION: XR FLUOROSCOPY WITH IMAGES CLINICAL INFORMATION: ERCP. COMPARISON: None available. TECHNIQUE: Fluoroscopy Supervised By: Dr. Jf Howard. Fluoroscopy Time: 0.9 minutes. Cumulative Dose: 14.9 mGy. DAP: 4.06 Gycm2. Images: 8. FINDINGS: There is no intrahepatic biliary duct dilatation. There may be mild extrahepatic biliary duct dilatation. There is a balloon dilatation of the common bile duct. Final images demonstrate decompression of the biliary system and passage of contrast into the duodenum. FL/FL guidance in OR IMPRESSION: Fluoroscopy guidance for ERCP
--- NOTE | ~2023-01-13 | MR_ITS ---
EXAMINATION: MR ABDOMEN WITHOUT CONTRAST CLINICAL INFORMATION: Abnormal liver function tests. Rule out common bile duct stone COMPARISON: Previous abdominal ultrasound July 2022, MR with MRCP July [address] of the abdomen and pelvis from yesterday TECHNIQUE: MR abdomen is performed without gadolinium contrast. MRCP sequences were also performed. FINDINGS: LUNG BASES: The visualized lung bases are unremarkable. LIVER, GALLBLADDER, AND BILIARY TREE: The liver loses signal on out of phase sequences suggestive of fatty infiltration. No focal liver lesion. The gallbladder has been removed. There is no intra or extrahepatic biliary duct dilatation. The common bile duct measures 6 mm. No common bile duct stone is seen. PANCREAS: Unremarkable. SPLEEN: Unremarkable. ADRENAL GLANDS: Unremarkable. KIDNEYS AND URETERS: The kidneys are normal in size and shape. Small left renal cyst. No imaging follow-up recommended. No hydronephrosis. No perinephric stranding. GASTROINTESTINAL TRACT: No bowel obstruction. No ascites or fluid collection. ABDOMINAL WALL: Small umbilical and supraumbilical hernias containing fat. LYMPH NODES: No lymphadenopathy. VASCULAR: Unremarkable. OSSEOUS STRUCTURES: Marrow signal normal. MR/MR MRCP IMPRESSION: Fatty infiltration of the liver. No intra or extrahepatic biliary duct dilatation or common bile duct filling defect/stone seen.
--- NOTE | ~2023-01-13 | CT_ITS ---
EXAMINATION: CT ABDOMEN AND PELVIS WITH CONTRAST CLINICAL INFORMATION: Upper abdominal pain. Elevated LFTs. COMPARISON: 07/18/2022 and 07/17/2022 TECHNIQUE: Multidetector volumetric images were obtained from the superior aspect of the liver through the pubic symphysis following administration 85 mL of Omnipaque 350 intravenous contrast. Sagittal and coronal reformatted images were obtained on the technologist's workstation. Oral contrast: No This CT examination was performed using dose optimization techniques as appropriate, variously including the following: *Automated exposure control *Adjustment of mA and/or kV according to patient size (this includes techniques or standardized protocols for targeted exams where dose is matched to indication/reason for exam; i.e. extremities or head) *Use of iterative reconstruction technique DLP: 522 mGy-cm FINDINGS: LUNG BASES: The visualized lung bases are unremarkable. LIVER, GALLBLADDER, AND BILIARY TREE: The liver is decreased in attenuation. No focal hepatic lesion. Postcholecystectomy changes of the biliary ductal system. The gallbladder is surgically absent. PANCREAS: Unremarkable. SPLEEN: Unremarkable. ADRENAL GLANDS: Unremarkable. KIDNEYS AND URETERS: The kidneys are symmetric in size and enhancement. 8 mm midpole left renal hypodensity too small to characterize. No hydronephrosis or perinephric stranding. BLADDER: Unremarkable. GASTROINTESTINAL TRACT: Small and large bowel loops are of normal caliber. No small bowel obstruction. ABDOMINAL WALL: Small fat-containing umbilical hernia. LYMPH NODES: Few subcentimeter right lower quadrant mesenteric lymph nodes are nonspecific and unchanged from prior. VASCULAR: Normal caliber abdominal aorta. PELVIC VISCERA: Unremarkable. OSSEOUS STRUCTURES: No destructive bone lesions. CT/CT abdomen pelvis w IV con IMPRESSION: Hepatic steatosis.
[2023-01-13 07:18] LABS: Bacteria Urine None Seen (None Seen); Hyaline Casts Urine 0-2 /LPF (0-2); RBC Urine 0-2 /HPF (0-2); WBC Urine 0-5 /HPF (0-5)
[2023-01-13 07:26] LABS: Appearance Urine Clear; Color Urine Yellow; Glucose Urine UA 100 mg/dL (Negative); Leukocyte Esterase Urine Negative (Negative); Nitrite Urine Negative (Negative); PH 7.5 (5.0-9.0); Urine Blood Negative (Negative); Urine Ketones Negative (Negative); Urine Protein Negative (Neg-Trace)
[2023-01-13 07:29] LABS: Alanine Aminotransferase 420 U/L (0-31); Albumin Level 4.2 g/dL (3.5-5.0); Alkaline Phosphatase 363 U/L (39-117); Anion Gap 11 (12-20); Aspartate Amino Transferase 550 U/L (5-31); Bilirubin Total 1.4 mg/dL (0.0-1.0); Blood Urea Nitrogen 11 mg/dL (9-16); Calcium 9.5 mg/dL (8.4-10.2); Carbon Dioxide 29 mmol/L (22-29); Chloride 106 mmol/L (96-108); Creatinine Clr Calc Pharmacy 53.7; Estimated Glomerular Filt Rate 59; Glucose Random 152 mg/dL (60-115); Lipase 30 U/L (8-78); Potassium 3.9 mmol/L (3.3-5.1); Sodium 142 mmol/L (135-145); Total Protein 7.4 g/dL (6.5-8.0)
--- NOTE | 2023-01-13 07:38 | ED_ITS ---
HPI - Abdominal Pain General Chief Complaint: Abdominal Pain Stated Complaint: Abd pain Time Seen by Provider: 01/13/23 07:37 Source: patient Limitations: language barrier (Urdu speaking only, certified court/medical interpreter used) History of Present Illness HPI narrative: 57-year-old female with a history hypothyroidism, cholecystectomy, thyroidectomy, appendectomy, acute hepatitis 07/2022 (suspected nonspecific viral etiology) which patient LFTs trending down, hepatic steatosis who presents emergency department for evaluation of upper abdominal pain x3 days. Patient states the pain feels similar to the pain that she had in July of 2022 when she had acute hepatitis. She states the pain is a constant, sharp pain which is greater than 10/10. She had associated nausea with no vomiting or diarrhea. She denied fever or chills. She has noted urinary frequency but no dysuria. She did take Tylenol at home for the pain without any relief. Related Data Home Medications Medication Instructions Recorded Confirmed loratadine 10 mg tablet 10 mg PO DAILY PRN allergies 12/20/19 07/17/22 nortriptyline 50 mg capsule 100 mg PO BEDTIME 12/20/19 07/17/22 quetiapine 100 mg tablet 100 mg PO BEDTIME 12/20/19 07/17/22 sumatriptan succinate 100 mg tablet 100 mg PO Q2-4H PRN Headache 12/20/19 07/17/22 sertraline 100 mg tablet 150 mg PO DAILY 10/06/20 07/17/22 levothyroxine 50 mcg tablet 100 mcg PO DAILY 06/30/22 07/17/22 cholecalciferol (vitamin D3) 50 50 mcg PO DAILY 07/17/22 07/17/22 mcg (2,000 unit) tablet docusate sodium 100 mg capsule 100 mg PO DAILY PRN Constipation 07/17/22 07/17/22 venlafaxine 37.5 mg tablet 37.5 mg PO BID 07/17/22 07/17/22 Previous Rx's Medication Instructions Recorded hydrocortisone 2.5 % topical cream 1 appl topical TID PRN itching #28 08/07/22 grams famotidine 20 mg tablet 20 mg PO DAILY #30 tabs 09/27/22 Allergies Allergy/AdvReac Type Severity Reaction Status Date / Time acetaminophen [Vicodin] Allergy Unknown unk Verified 11/08/22 12:08 Penicillins AdvReac Mild HYPERTENSIO Verified 11/08/22 12:08 N hydrocodone [From VICODIN] AdvReac Unknown HIGH BP Verified 11/08/22 12:08 Review of Systems Review of Systems Yes all other systems are reviewed and are negative [facility] Past Medical History [facility] Narrative: Social history: She denies tobacco, alcohol and drug use Medical History Vitamin D deficiency Multinodular thyroid Hypothyroidism Surgical History Tubal ligation status Hx of foot surgery Hx of epicondylectomy Hx of cholecystectomy Hx of thyroidectomy Hx of appendectomy Family History Family History Father No problems noted. Mother Breast cancer Hypertension Social History Social History Household Members: Family Household Members Other:: 2 grand kids Housing: House Alcohol intake: never Patient Tobacco Use Status: Never used Tobacco Smoked in Last 30 Days: No Use of substances other than those prescribed or required for medical reasons: No Advance Directives: No Advance Directives Information Provided: Yes Patient : No service: No Current occupational status: unemployed Physical Exam ED Vital Signs: Vital Signs - 24 hr 01/13/23 06:51 01/13/23 08:07 01/13/23 10:00 Temperature 97.0 F 98.1 F 98.1 F Pulse Rate 83 79 82 Respiratory Rate 20 18 18 Blood Pressure 151/88 H 158/86 H 130/80 Pulse Oximetry 100 100 98 Oxygen Delivery Method Room Air Room Air Room Air BMI result Body Mass Index 27.9 Vital signs did reveal an elevated blood pressure of 151/88 Exam General: Awake, alert in no distress Head: Normocephalic, atraumatic EENT: PERRL, Lids normal, sclera normal, conjunctiva normal, nose normal , ears normal, throat without erythema or exudates Neck: Supple, no adenopathy, no trachea midline or C-spine tenderness Lung: breath sounds symmetric, no wheezing, rales or rhonchi Chest: symmetric movement, nontender Heart: regular rate and rhythm, normal S1, S2 no murmurs or rubs Abdomen: soft, mild diffuse tenderness, moderate epigastric and right upper quadrant tenderness, no rebound, no voluntary or involuntary guarding Back: no vertebral tenderness, no CVAT Extremities: no deformities, moves all extremities symmetrically Neuro: Awake, alert, oriented, normal speech, moves all extremities symmetrically Psych: Pleasant, cooperative Medical Decision Making Medical Decision Making [facility] Narrative: 57-year-old female with a history hypothyroidism, cholecystectomy, thyroidectomy, appendectomy, acute hepatitis 07/2022 (suspected nonspecific viral etiology) which patient LFTs trending down, hepatic steatosis who presents emergency department for evaluation of upper abdominal pain x3 days with associated nausea, no vomiting or diarrhea and urinary frequency. Patient reports that her pain feels similar to the pain that she had when she was diagnosed with acute hepatitis in July of 2022. Vital signs did reveal an elevated blood pressure. Patient has mild to moderate diffuse abdominal tenderness with increased tenderness in the right upper quadrant and epigastric area. Following evaluation was ordered: CBC, CMP, lipase, urinalysis, CT scan of the abdomen pelvis with IV contrast Patient was treated with morphine 4 mg IV and Zofran 4 mg IV for her pain. She was also given normal saline IV x1 L. 08:15 Patient's laboratory evaluation revealed a normal WBC. Patient's AST, ALT, alk- phos and bilirubin are elevated similar to when she was diagnosed with acute hepatitis July 2022. Lipase was normal. I added hepatitis A, B and C profile and direct bilirubin to the patient's labs. 11:44 Patient's pain improved after 2nd dose of morphine 4 mg IV. Patient's abdominal tenderness has resolved Given the elevation in her LFTs especially elevated alk-phos and direct bili, I will discuss further management disposition with the covering seismograph chief. 12:13 I did discuss the patient's presentation with Dr. Snow and she recommended the following: Admit for evaluation of possible biliary stone with MRCP Add Tylenol level, CMV and EBV testing. I did discuss admission over tiger text with the covering hospitalist, Dr. Ortega Differential Diagnosis Differential Diagnoses: The differential diagnosis associated with the presentation includes Differential diagnosis includes was not limited to acute hepatitis, pancreatitis, retained biliary stone, gastritis, viral syndrome, ischemic bowel Admission/Observation Consideration of admission/observation: Escalation of care including admission/observation considered Lab Data [facility] Lab Attestation statement: I reviewed the patient's lab results. My interpretation patient's laboratory evaluation is as follows: CBC was normal. Glucose elevated 152. Bilirubin elevated 1.4. AST ALT and alk-phos were elevated 550, 420 and 363-these are similar to the elevations that she had in July 2022 and her LFTs had been trending down with her last LFTs being on 11/08/2022 with an AST, ALT and alk-phos of 35, 47 and 135. Lipase was normal pain. 01/13/23 07:06 01/13/23 07:06 Labs: Lab Results 01/13/23 01/13/23 01/13/23 Range/Units 07:03 07:06 09:50 WBC 5.2 (4.8-10.8) X10*3/uL RBC 4.93 (4.20-5.50) X10*6/uL Hgb 15.0 (12.0-16.0) g/dl Hct 45.2 (37.0-47.0) % MCV 91.7 (80.0-98.0) fL MCH 30.4 (27.0-33.0) pg MCHC 33.2 (31.0-35.0) g/dl RDW 13.4 (11.0-16.0) % Plt Count 216 (160-400) X10*3/uL MPV 9.9 (9.4-12.3) fL Absolute Nucleated RBC 0.000 (0.0-0.012) X10*3/uL Nucleated RBC % (auto) 0.0 (0.0-0.2) /100WBC Sodium 142 (135-145) mmol/L Potassium 3.9 (3.3-5.1) mmol/L Chloride 106 (96-108) mmol/L Carbon Dioxide 29 (22-29) mmol/L Anion Gap 11 L (12-20) BUN 11 (9-16) mg/dL Creatinine 0.97 (0.5-1.4) mg/dL Estim Creat Clear Calc 53.7 Estimated GFR 59 Random Glucose 152 H (60-115) mg/dL Calcium 9.5 (8.4-10.2) mg/dL Total Bilirubin 1.4 H (0.0-1.0) mg/dL Direct Bilirubin 1.1 H (0.0-0.5) mg/dL AST 550 H (5-31) U/L ALT 420 H (0-31) U/L Alkaline Phosphatase 363 H (39-117) U/L Total Protein 7.4 (6.5-8.0) g/dL Albumin 4.2 (3.5-5.0) g/dL Lipase 30 (8-78) U/L Urine Color Yellow Urine Appearance Clear Urine pH 7.5 (5.0-9.0) Ur Specific [place] 1.020 (1.005-1.025) Urine Protein Negative (Neg-Trace) mg/dL Urine Glucose (UA) 100 H (Negative) mg/dL Urine Ketones Negative (Negative) mg/dL Urine Blood Negative (Negative) Urine Nitrite Negative (Negative) Ur Leukocyte Esterase Negative (Negative) Urine RBC 0-2 (0-2) /HPF Urine WBC 0-5 (0-5) /HPF Ur Squamous Epith Cells 6-10 (0-2) /HPF Urine Bacteria None Seen (None Seen) Hyaline Casts 0-2 (0-2) /LPF Hepatitis A IgM Ab Nonreactive (Nonreactive) Hep Bs Antigen Negative (Negative) Hep Bs Antibody NONREACTIVE (Nonreactive) Hep B Core Total Ab Nonreactive (Nonreactive) Hepatitis C Ab (EIA) Nonreactive (Nonreactive) Radiology Impression Discussion of test interpretation with radiology: I have reviewed the radiologist's reading. Radiologist Impression: EXAMINATION: CT ABDOMEN AND PELVIS WITH CONTRAST CLINICAL INFORMATION: Upper abdominal pain. Elevated LFTs. COMPARISON: 07/18/2022 and 07/17/2022 FINDINGS: LUNG BASES: The visualized lung bases are unremarkable. LIVER, GALLBLADDER, AND BILIARY TREE: The liver is decreased in attenuation. No focal hepatic lesion. Postcholecystectomy changes of the biliary ductal system. The gallbladder is surgically absent. PANCREAS: Unremarkable. SPLEEN: Unremarkable. ADRENAL GLANDS: Unremarkable. KIDNEYS AND URETERS: The kidneys are symmetric in size and enhancement. 8 mm midpole left renal hypodensity too small to characterize. No hydronephrosis or perinephric stranding. BLADDER: Unremarkable. GASTROINTESTINAL TRACT: Small and large bowel loops are of normal caliber. No small bowel obstruction. ABDOMINAL WALL: Small fat-containing umbilical hernia. LYMPH NODES: Few subcentimeter right lower quadrant mesenteric lymph nodes are nonspecific and unchanged from prior. VASCULAR: Normal caliber abdominal aorta. PELVIC VISCERA: Unremarkable. OSSEOUS STRUCTURES: No destructive bone lesions. CT/CT abdomen pelvis w IV con IMPRESSION: Hepatic steatosis. Dictated By: Mariluz Gardner MD Signed By: <Electronically signed by Mariluz Gardner MD in [place]> Medications Administered Discontinued Medications Generic Name Dose Route Start Last Admin Trade Name Freq PRN Reason Stop Dose Admin Sodium Chloride 1,000 mls @ 999 mls/hr 01/13/23 08:02 01/13/23 11:55 Ns IV 01/13/23 09:02 Infused .Q1H1M STA Infusion Iohexol 85 ml 01/13/23 10:04 01/13/23 10:05 Iohexol 350 Mg/Ml 100 Ml Infus..Btl IV 01/13/23 10:05 85 ml ONCE ONE Administration Morphine Sulfate 4 mg 01/13/23 08:02 01/13/23 08:19 Morphine Sulfate 4 Mg/Ml Cartridge IVPUSH 01/13/23 08:03 4 mg ONCE STA Administration Protocol Morphine Sulfate 4 mg 01/13/23 10:25 01/13/23 10:42 Morphine Sulfate 4 Mg/Ml Cartridge IVPUSH 01/13/23 10:26 4 mg ONCE STA Administration Protocol Ondansetron HCl 4 mg 01/13/23 08:02 01/13/23 08:19 Ondansetron Hcl 4 Mg/2 Ml Vial IVPUSH 01/13/23 08:03 4 mg ONCE ONE Administration Discharge Plan Discharge Patient Disposition: Admitted As Inpatient Prescriptions: No Action venlafaxine 37.5 mg Tablet 37.5 mg PO BID cholecalciferol (vitamin D3) 50 mcg (2,000 unit) Tablet 50 mcg PO DAILY docusate sodium 100 mg Capsule 100 mg PO DAILY PRN (Reason: Constipation) hydrocortisone 2.5 % cream 1 appl topical TID PRN (Reason: itching) Qty: 28 0RF quetiapine 100 mg tablet 100 mg PO BEDTIME sumatriptan succinate 100 mg tablet 100 mg PO Q2-4H PRN (Reason: Headache) Rx Instructions: do not exceed 2 doses per 24 hrs nortriptyline 50 mg capsule 100 mg PO BEDTIME loratadine 10 mg tablet 10 mg PO DAILY PRN (Reason: allergies) sertraline 100 mg tablet 150 mg PO DAILY levothyroxine 50 mcg tablet 100 mcg PO DAILY famotidine 20 mg tablet 20 mg PO DAILY Qty: 30 3RF
[2023-01-13 07:43] LABS: Hematocrit 45.2 % (37.0-47.0); Mean Corpuscular HGB Conc 33.2 g/dl (31.0-35.0); Mean Corpuscular Hemoglobin 30.4 pg (27.0-33.0); Mean Corpuscular Volume 91.7 fL (80.0-98.0); Mean Platelet Volume 9.9 fL (9.4-12.3); Platelet Count 216 X10*3/uL (160-400); Red Blood Count 4.93 X10*6/uL (4.20-5.50); Red Cell Distribution Width 13.4 % (11.0-16.0); White Blood Count 5.2 X10*3/uL (4.8-10.8)
[2023-01-13] MEDS: Morphine Sulfate 4 MG/ML CARTRIDGE IVPUSH ×2 (08:19→10:42)
[2023-01-13] MEDS: 0.9 % Sodium Chloride 1,000 ML 999 ML IV (08:19)
[2023-01-13] MEDS: ondansetron HCL 4 MG/2 ML VIAL IVPUSH (08:19)
--- NOTE | 2023-01-13 08:37 | PC.NURSE ---
Pt is a&ox4 coming in for 10/10 upper abd pain that radiates to upper back x3 days. +nausea. Denies Fevers/chills. +bowel sounds. Pt resting in stretcher with call light within reach. +22 right hand.
[2023-01-13 08:43] LABS: Bilirubin Direct 1.1 mg/dL (0.0-0.5)
[2023-01-13] MEDS: iohexoL 350 MG/ML 100 ML INFUS..BTL 85 ML IV (10:05)
[2023-01-13 10:35] LABS: HBS Num1 3.37 mIU/mL (0-7.99); HBc Num1 0.11 S/CO (0.00-0.79); HBsAGNum1 0.25 S/CO (0.00-0.99); Hepatitis A Antibody IgM 0.22 Index (0-0.79); Hepatitis B Core Antibody Nonreactive (Nonreactive); Hepatitis B Surface Antigen Negative (Negative); ~HepC Num1 0.12 S/CO (0.00-0.79); ~Hepatitis A Antibody IgM Nonreactive (Nonreactive); ~Hepatitis B Surface Antibody NONREACTIVE (Nonreactive); ~Hepatitis C Antibody Nonreactive (Nonreactive)
[2023-01-13 12:38] LABS: Acetaminophen LAB < 3 mcg/mL (<30)
--- NOTE | 2023-01-13 13:23 | PHA.MEDREC ---
Pharmacy Consult ? Medication Reconciliation Pharmacy has completed the medication reconciliation. [employer] services used. Unsure of meds on her own but was able to tell me yes or no based on her claim history list. Patient states it has been a few days since she last took meds due to her pain. She also noted she does not like taking the venlafaxine because of how it makes her feel. Provider at bedside
--- NOTE | 2023-01-13 14:20 | PM.IMHP ---
History of Present Illness Date of Service: 01/13/23 Chief Complaint: abdominal pain The patient is a 57 year old female with a PMH of hypothyroidism, multinodular goiter, vit D deficiency, s/p CCK who presents to the ED with a 3 to 4 day history of upper abdominal pain with associated nause and vomting. The patient reports the pain is constant and progressive, crampy in nature. She endorses associated nausea without vomiting. She does endorse constipation. She denies any bleeding. No fevers or chills. No sick contacts. She reports a decreased appetite and an inability to tolerate even water. She denies any cardiopulmonary symptoms. She reports intermittent tylenol use (but none recently). She denies NSAID. No EtOH, tobacco or illicit substance use. In the ED, her work up including blood work and imaging studies revealed: elevated T. Bili 1.4, AST/ALT/Alk Phos - 550/420/363 respectively, lipase 30; CT abd/pelvis showing hepatic steatosis without other acute findings; Her case was d/w gastroenterology and now will be admitted for further work up. Of note -- the patient had a very similar presentation in July 2022. She was evaluated with MRCP which was negative. Her viral hepatitis serologies were negative at that time. Since then, her LFTs have improved dramatically and her most recently labs from November show normal bili with mild AST/ALT/ALP elevation (35/47/135, respectively). Review of Systems Review of Systems: Negative except HPI/interval history. [facility] Medical History Vitamin D deficiency Multinodular thyroid Hypothyroidism Family History Father No problems noted. Mother Breast cancer Hypertension Surgical History Tubal ligation status Hx of foot surgery Hx of epicondylectomy Hx of cholecystectomy Hx of thyroidectomy Hx of appendectomy Social History Household Members: Family Household Members Other:: 2 grand kids Housing: House Alcohol intake: never Patient Tobacco Use Status: Never used Tobacco Smoked in Last 30 Days: No Use of substances other than those prescribed or required for medical reasons: No Advance Directives: No Advance Directives Information Provided: Yes Patient : No service: No Current occupational status: unemployed Meds Allergies Allergy/AdvReac Type Severity Reaction Status Date / Time acetaminophen [Vicodin] Allergy Unknown unk Verified 11/08/22 12:08 Penicillins AdvReac Mild HYPERTENSIO Verified 11/08/22 12:08 N hydrocodone [From VICODIN] AdvReac Unknown HIGH BP Verified 11/08/22 12:08 Active Medications: Current Medications Enoxaparin Sodium (Enoxaparin Sodium 40 Mg/0.4 Ml Syringe) 40 mg SUBCUT Q24H JACOB Morphine Sulfate (Morphine Sulfate 4 Mg/Ml Cartridge) 4 mg IVPUSH Q4H PRN; Protocol PRN Reason: Pain, Severe (Pain Scale 7-10) Sodium Chloride (0.9 % Sodium Chloride Flush 3 Ml Syringe) 3 ml IVFLUSH QSHIFT [facility] Home Medications Medication Instructions Recorded Confirmed Last Taken Type loratadine 10 mg tablet 10 mg PO DAILY PRN allergies 12/20/19 01/13/23 Unknown History nortriptyline 50 mg capsule 100 mg PO BEDTIME 12/20/19 01/13/23 07/16/22 History quetiapine 100 mg tablet 100 mg PO BEDTIME PRN Sleep 12/20/19 01/13/23 07/16/22 History sumatriptan succinate 100 mg tablet 100 mg PO Q2-4H PRN Headache 12/20/19 01/13/23 Unknown History sertraline 100 mg tablet 150 mg PO DAILY 10/06/20 01/13/23 07/16/22 History levothyroxine 50 mcg tablet 100 mcg PO DAILY 06/30/22 01/13/23 07/17/22 History cholecalciferol (vitamin D3) 50 50 mcg PO DAILY 07/17/22 01/13/23 07/16/22 History mcg (2,000 unit) tablet docusate sodium 100 mg capsule 100 mg PO DAILY PRN Constipation 07/17/22 01/13/23 Unknown History acetaminophen 325 mg tablet 650 mg PO Q6H PRN Pain 01/13/23 01/13/23 Unknown History (Tylenol) fluticasone propionate 50 1 - 2 spray intranasal DAILY PRN 01/13/23 01/13/23 Unknown History mcg/actuation nasal Allergic Symptoms spray,suspension naproxen 250 mg tablet 250 mg PO BID PRN Pain 01/13/23 01/13/23 Unknown History Physical Exam Vital Signs and Narrative: Vital Signs: Last Vital Signs Temp 97.9 F 01/13/23 14:00 Pulse 82 01/13/23 14:00 Resp 17 01/13/23 14:00 BP 122/69 01/13/23 14:00 Pulse Ox 97 01/13/23 14:00 O2 Del Method Room Air 01/13/23 14:00 BMI result Body Mass Index 27.9 Const: Other: Constitutional - Awake and Alert, No apparent distress Eyes - PERRLA, EOMI Cardiovascular - S1S2, RRR, No edema Respiratory - Normal lung expansion, Normal respiratory effort, No respiratory distress, CTA bilaterally Gastrointestinal - +TTP RUQ > else where; no rebound or guarding - No CVA tenderness Extremities - no calf tenderness bilaterally, no swelling Musculoskeletal - Normal inspection, normal ROM Skin - Warm/Dry Neurological - Alert & oriented x3, No focal deficit Psychological - Appropriate affect Results Labs 01/13/23 07:06 01/13/23 07:06 Labs: Laboratory Results - last 24 hr 01/13/23 01/13/23 01/13/23 07:03 07:06 09:50 MCV 91.7 MCH 30.4 MCHC 33.2 RDW 13.4 Plt Count 216 MPV 9.9 Absolute Nucleated RBC 0.000 Nucleated RBC % (auto) 0.0 Anion Gap 11 L Estim Creat Clear Calc 53.7 Estimated GFR 59 Random Glucose 152 H Calcium 9.5 Total Bilirubin 1.4 H Direct Bilirubin 1.1 H AST 550 H ALT 420 H Alkaline Phosphatase 363 H Total Protein 7.4 Albumin 4.2 Lipase 30 Urine Color Yellow Urine Appearance Clear Urine pH 7.5 Ur Specific [place] 1.020 Urine Protein Negative Urine Glucose (UA) 100 H Urine Ketones Negative Urine Blood Negative Urine Nitrite Negative Ur Leukocyte Esterase Negative Urine RBC 0-2 Urine WBC 0-5 Ur Squamous Epith Cells 6-10 Urine Bacteria None Seen Hyaline Casts 0-2 Acetaminophen < 3 Hepatitis A IgM Ab Nonreactive Hep Bs Antigen Negative Hep Bs Antibody NONREACTIVE Hep B Core Total Ab Nonreactive Hepatitis C Ab (EIA) Nonreactive Imaging Radiologist's Impressions: Impressions Abdomen/Pelvis CT 01/13/23 09:55 IMPRESSION: Hepatic steatosis. Assessment and Plan (1) Acute hepatitis: Status: Acute Plan 57 yo F with a medical history as listed above and prior admission for acute hepatitis who now presents with a 2-3 day history of abodminal pain. Her work up in the ED has revealed acute hepatitis, without a definitive cause. She will be admitted for further work up. 1. Acute Hepatitis CT imaging negative, but given her LFT pattern, will check MRCP Viral Hep serologies ordered per GI -- to check for EBV and CMV (ordered in the ED) will ask for formal GI evaluation NPO for the time being IV analgesics for pain control maintanence fluids hold hepatotoxic meds 2. hypothyroidism synthroid 3. Mood continue home meds Patient with acute hepatitis and abdominal pain of unclear etiology, which will require further work up with testing and imaging studies + expert consult with gastroenterology + close monitoring + increased risk for progression to hepatic failure. Therefore, admission expected to span 2 midnights and hence will be admitted as inpatient. Quality Stroke Does the patient have a stroke diagnosis?: No VTE Prior VTE?: No VTE Risk Level:: Medical - moderate - high VTE Device Contraindication: N/A - Device Ordered VTE Drug Contraindication: N/A - Med Ordered
[2023-01-13] MEDS: Enoxaparin Sodium 40 MG/0.4 ML SYRINGE SUBCUT (14:55)
--- NOTE | 2023-01-13 15:07 | P.CNGI_ITS ---
History of Present Illness Data of Consult Service Date: 01/13/23 Requesting physician: Loy Perales Primary Care Provider: Giana Isbell MD HPI Reason for consult: Acute hepatitis 57 YF with hypothyroidism, MNG, vit D deficiency, s/p CCK who presents to the ED with a 3 to 4 day history of upper abdominal pain with associated nausea and vomting. The patient reports pain started on 01/09/23 and became worse on 01/12/23. She describes the pain as 10/10 in intensity, is constant and progressive, cramping and radiated to the back. Pt complained of nausea without vomiting. Pt denied constipation or rectal bleeding, fevers or chills. No sick contacts. She reports a decreased appetite and an inability to tolerate even water. Pt denied any cardiopulmonary symptoms. She reports intermittent tylenol use (but none recently). She denies NSAID. No EtOH, tobacco or illicit substance use. In the ED, her work up including blood work and imaging studies revealed: elevated T. Bili 1.4, AST/ALT/Alk Phos - 550/420/363 respectively, lipase 30; 01/13/[address] SCAN SHOWED: LIVER, GALLBLADDER, AND BILIARY TREE: The liver is decreased in attenuation. No focal hepatic lesion. Postcholecystectomy changes of the biliary ductal system. The gallbladder is surgically absent. PANCREAS: Unremarkable. SPLEEN: Unremarkable. Of note -- the patient had a very similar presentation in July 2022. She was evaluated with MRCP which was negative. Her viral hepatitis serologies were negative at that time. Since then, her LFTs have improved dramatically and her most recently labs from November show normal bili with mild AST/ALT/ALP elevation (35/47/135, respectively). Review of Systems 2 Review of Systems: Negative except HPI/interval history. [facility] Past Medical History Medical History Vitamin D deficiency Multinodular thyroid Hypothyroidism Family History Family History Father No problems noted. 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) Alcohol intake: never Patient Tobacco Use Status: Never used Tobacco service: No Current occupational status: unemployed Meds Allergies Allergy/AdvReac Type Severity Reaction Status Date / Time acetaminophen [Vicodin] Allergy Unknown unk Verified 11/08/22 12:08 Penicillins AdvReac Mild HYPERTENSIO Verified 11/08/22 12:08 N hydrocodone [From VICODIN] AdvReac Unknown HIGH BP Verified 11/08/22 12:08 Active Medications: Current Medications Enoxaparin Sodium (Enoxaparin Sodium 40 Mg/0.4 Ml Syringe) 40 mg SUBCUT Q24H JACOB Last Admin: 01/13/23 14:55 Dose: 40 mg Dextrose/Sodium Chloride (D5ns) 1,000 mls @ 80 mls/hr IVCONT .[id number] JACOB Levothyroxine Sodium (Levothyroxine Sodium 100 Mcg Tablet) 100 mcg PO DAILY@0600 [facility] Morphine Sulfate (Morphine Sulfate 4 Mg/Ml Cartridge) 4 mg IVPUSH Q4H PRN; Protocol PRN Reason: Pain, Severe (Pain Scale 7-10) Nortriptyline HCl (Nortriptyline Hcl 25 Mg Capsule) 100 mg PO BEDTIME JACOB Quetiapine Fumarate (Quetiapine Fumarate 100 Mg Tablet) 100 mg PO BEDTIME PRN PRN Reason: Sleep Sertraline HCl (Sertraline Hcl 50 Mg Tablet) 150 mg PO DAILY [facility] Sodium Chloride (0.9 % Sodium Chloride Flush 3 Ml Syringe) 3 ml IVFLUSH QSHIFT [facility] Vitamin D (Cholecalciferol (Vitamin D3) 25 Mcg Tablet) 50 mcg PO DAILY [facility] Home Medications Medication Instructions Recorded Confirmed Last Taken Type loratadine 10 mg tablet 10 mg PO DAILY PRN allergies 12/20/19 01/13/23 Unknown History nortriptyline 50 mg capsule 100 mg PO BEDTIME 12/20/19 01/13/23 07/16/22 History quetiapine 100 mg tablet 100 mg PO BEDTIME PRN Sleep 12/20/19 01/13/23 07/16/22 History sumatriptan succinate 100 mg tablet 100 mg PO Q2-4H PRN Headache 12/20/19 01/13/23 Unknown History sertraline 100 mg tablet 150 mg PO DAILY 10/06/20 01/13/23 07/16/22 History levothyroxine 50 mcg tablet 100 mcg PO DAILY 06/30/22 01/13/23 07/17/22 History cholecalciferol (vitamin D3) 50 50 mcg PO DAILY 07/17/22 01/13/23 07/16/22 History mcg (2,000 unit) tablet docusate sodium 100 mg capsule 100 mg PO DAILY PRN Constipation 07/17/22 01/13/23 Unknown History acetaminophen 325 mg tablet 650 mg PO Q6H PRN Pain 01/13/23 01/13/23 Unknown History (Tylenol) fluticasone propionate 50 1 - 2 spray intranasal DAILY PRN 01/13/23 01/13/23 Unknown History mcg/actuation nasal Allergic Symptoms spray,suspension naproxen 250 mg tablet 250 mg PO BID PRN Pain 01/13/23 01/13/23 Unknown History Physical Exam 2 Vital Signs: Vital Signs: Last Vital Signs Temp 97.9 F 01/13/23 14:00 Pulse 82 01/13/23 14:00 Resp 17 01/13/23 14:00 BP 122/69 01/13/23 14:00 Pulse Ox 97 01/13/23 14:00 O2 Del Method Room Air 01/13/23 14:00 BMI result Body Mass Index 27.9 Const: General: healthy appearing and no acute distress Nutritional Appearance: overweight Orientation/consciousness: patient oriented x3 L imitations: language barrier HEENT: Head: Yes normal to inspection Ears: hearing grossly normal bilaterally Eyes: Sclerae: sclerae normal Pupils: Equal, round and reactive pupils present Neck: Neck: Yes normal visual inspection Chest: Chest palpation & inspection: normal inspection of the chest Resp: Effort & Inspection: normal respiratory effort Auscultation: clear to auscultation bilaterally Cardio: Palpation: normal PMI Rate: regular rate Rhythm: regular rhythm Heart sounds: S1 normal heart sound present, S2 normal heart sound present and no murmurs GI: Palpation (GI): Soft to palpation, nontender and No hepatosplenomegaly present Auscultation: normal bowel sounds Rectal Exam - Female: deferred Skin: General skin exam: no rashes or lesions noted Neuro: General: patient oriented x3, gait normal and moves all extremities Cranial nerves: Yes Equal, round and reactive pupils present Psych: Appearance: grossly normal Mental Status: mental status grossly normal Results Labs 01/13/23 07:06 01/14/23 06:38 Labs: Short CBC 01/13/23 Range/Units 07:06 WBC 5.2 (4.8-10.8) X10*3/uL Hgb 15.0 (12.0-16.0) g/dl Hct 45.2 (37.0-47.0) % Plt Count 216 (160-400) X10*3/uL BMP 01/13/23 07:06 Sodium 142 Potassium 3.9 Chloride 106 Carbon Dioxide 29 BUN 11 Creatinine 0.97 Calcium 9.5 Liver Function 01/13/23 Range/Units 07:06 Total Bilirubin 1.4 H (0.0-1.0) mg/dL Direct Bilirubin 1.1 H (0.0-0.5) mg/dL AST 550 H (5-31) U/L ALT 420 H (0-31) U/L Alkaline Phosphatase 363 H (39-117) U/L Albumin 4.2 (3.5-5.0) g/dL Urine 01/13/23 Range/Units 07:03 Urine Color Yellow Urine Appearance Clear Urine pH 7.5 (5.0-9.0) Ur Specific [place] 1.020 (1.005-1.025) Urine Protein Negative (Neg-Trace) mg/dL Urine Glucose (UA) 100 H (Negative) mg/dL Assessment and Plan (1) Acute hepatitis: Status: Acute (2) Abdominal pain: Status: Acute Plan 57 YF with hypothyroidism, MNG, vit D deficiency, s/p CCK admitted to [facility] on 01/13/23 with upper abdominal pain, nausea and vomting. In the ED, her work up including blood work and imaging studies revealed: elevated T. Bili 1.4, AST/ALT/Alk Phos - 550/420/363 respectively, lipase 30; Hepatitis a B and C serologies were negative. Patient reports resolution of her abdominal pain. Abdominal pain with elevated LFTs is suggestive of biliary pain likely due to CBD stone/sludge or sphincter of Oddi spasm. Of note -- the patient had a very similar presentation in July 2022. She was evaluated with MRCP which was negative. Her viral hepatitis serologies were negative at that time. RECOMMENDATIONS: 1. Agree with IV antiemetics and pain medication prn in case of recurrent pain 2. Check CMV and EBV serologies 3. MRCP to rule out CBD stone/sludge 01/14/23 MRCP SHOWED: Fatty infiltration of the liver. No intra or extrahepatic biliary duct dilatation or common bile duct filling defect/stone seen. If LFTs continue to improve, pt can be discahrged home in the am Pt was discussed with Dr Howard who advised to schedule her for an ERCP as an outpatient. ERCP procedure and potential complications were reviewed with the patient with the help of an [facility] [place] foreign language stenographer. Patient is in agreement to be scheduled for an ERCP. Procedures Date of Service Date of Service: 01/14/23
[2023-01-13] MEDS: Dextrose 5 % and 0.9 % NaCl 1,000 ML 80 ML IVCONT (15:34)
[2023-01-13] MEDS: 0.9 % Sodium Chloride Flush 3 ML SYRINGE IVFLUSH (15:34)
[2023-01-13] MEDS: QUEtiapine Fumarate 100 MG TABLET PO (20:14)
[2023-01-13] MEDS: Nortriptyline HCl 25 MG CAPSULE 100 MG PO (20:14)
[2023-01-14 04:00] VITALS: BP 108/60; PULSE 78; RESP 18; TEMP 36.3; O2SAT 92
[2023-01-14] MEDS: Dextrose 5 % and 0.9 % NaCl 1,000 ML 80 ML IVCONT (05:22)
[2023-01-14] MEDS: Levothyroxine Sodium 100 MCG TABLET PO (05:24)
[2023-01-14 07:56] LABS: Alanine Aminotransferase 385 U/L (0-31); Albumin Level 3.6 g/dL (3.5-5.0); Alkaline Phosphatase 359 U/L (39-117); Anion Gap 11 (12-20); Aspartate Amino Transferase 262 U/L (5-31); Bilirubin Total 1.2 mg/dL (0.0-1.0); Blood Urea Nitrogen 7 mg/dL (9-16); Carbon Dioxide 28 mmol/L (22-29); Chloride 108 mmol/L (96-108); Creatinine Clr Calc Pharmacy 60.6; Estimated Glomerular Filt Rate > 60; Glucose Random 102 mg/dL (60-115); Potassium 3.9 mmol/L (3.3-5.1); Sodium 143 mmol/L (135-145); Total Protein 6.4 g/dL (6.5-8.0)
[2023-01-14 08:00] VITALS: BP 96/62; PULSE 92; RESP 16; TEMP 37.4; O2SAT 93
[2023-01-14 08:31] LABS: Gamma Glutamyl Transpeptidase 1742 U/L (7-33)
--- NOTE | 2023-01-14 08:38 | MHC.CM.PN ---
CM met with Patient at bedside and addressed IMM with her, providing Patient with the original and a copy has been placed on the chart. Patient lives in a house with her Adult Grandson and his 2 children and she uses a cane to assist with mobility. Patient receives 2 hours/day of [employer] services and home/resume said services is the goal. CM has initiated and will follow for dc planning. PCP is Dr. Giana Isbell.
--- NOTE | 2023-01-14 11:06 | P.PNIM_ITS ---
Subjective Subjective Date of Service: 01/14/23 Interval History: This history was taken in Setswana from the patient. Some nausea but abd pain improved LFTs coming down Review of Systems Review of Systems: Yes all other systems are reviewed and are negative Physical Exam 2 Vital Signs: Vital Signs: Last Vital Signs Temp 99.3 F 01/14/23 08:00 Pulse 92 01/14/23 08:00 Resp 16 01/14/23 08:00 BP 96/62 01/14/23 08:00 Pulse Ox 93 01/14/23 08:00 O2 Del Method Room Air 01/14/23 08:00 BMI result Body Mass Index 27.9 Gen: in no acute distress HEENT: sclera anicteric, moist mucus membranes Neck: supple Lungs: clear to auscultation bilaterally Heart: regular rate and rhythm, no murmurs Abd: soft, minimal RUQ tenderness, non-distended Ext: no edema Skin: warm/well-perfused Neuro: alert and oriented x3, no focal findings Psych: appropriate affect Objective Data Active Medications Enoxaparin Sodium (Enoxaparin Sodium 40 Mg/0.4 Ml Syringe) 40 mg SUBCUT Q24H [facility] Last Admin: 01/13/23 14:55 Dose: 40 mg Documented By: MANSOOR Dextrose/Sodium Chloride (D5ns) 1,000 mls @ 80 mls/hr IVCONT .[id number] [facility] Last Infusion: 01/14/23 08:50 Dose: 0 mls/hr Documented By: CINTHIA Levothyroxine Sodium (Levothyroxine Sodium 100 Mcg Tablet) 100 mcg PO DAILY@0600 [facility] Last Admin: 01/14/23 05:24 Dose: 100 mcg Documented By: KRYSTLE Morphine Sulfate (Morphine Sulfate 4 Mg/Ml Cartridge) 4 mg IVPUSH Q4H PRN; Protocol PRN Reason: Pain, Severe (Pain Scale 7-10) Nortriptyline HCl (Nortriptyline Hcl 25 Mg Capsule) 100 mg PO BEDTIME [facility] Last Admin: 01/13/23 20:14 Dose: 100 mg Documented By: ERLINDA Quetiapine Fumarate (Quetiapine Fumarate 100 Mg Tablet) 100 mg PO BEDTIME PRN PRN Reason: Sleep Last Admin: 01/13/23 20:14 Dose: 100 mg Documented By: ERLINDA Sertraline HCl (Sertraline Hcl 50 Mg Tablet) 150 mg PO DAILY [facility] Last Admin: 01/14/23 10:30 Dose: Not Given Documented By: CINTHIA Non-Admin Reason: Patient Refused Sodium Chloride (0.9 % Sodium Chloride Flush 3 Ml Syringe) 3 ml IVFLUSH QSHIFT [facility] Last Admin: 01/14/23 00:56 Dose: Not Given Documented By: KRYSTLE Non-Admin Reason: IV Running Vitamin D (Cholecalciferol (Vitamin D3) 25 Mcg Tablet) 50 mcg PO DAILY [facility] Last Admin: 01/14/23 10:30 Dose: Not Given Documented By: CINTHIA Non-Admin Reason: Patient Refused Labs 01/13/23 07:06 01/14/23 06:38 Labs: Laboratory Results - last 24 hr 01/13/23 01/14/23 09:50 06:38 Hold Purple Top SEE NOTE Anion Gap 11 L Estim Creat Clear Calc 60.6 Estimated GFR > 60 Random Glucose 102 Calcium 9.0 Total Bilirubin 1.2 H GGT 1742 H AST 262 H ALT 385 H Alkaline Phosphatase 359 H Total Protein 6.4 L Albumin 3.6 Acetaminophen < 3 Hepatitis A IgM Ab Nonreactive Hep Bs Antigen Negative Hep Bs Antibody NONREACTIVE Hep B Core Total Ab Nonreactive Hepatitis C Ab (EIA) Nonreactive Impressions Cholangiopancreatography MRI 01/14/23 09:40 IMPRESSION: Fatty infiltration of the liver. No intra or extrahepatic biliary duct dilatation or common bile duct filling defect/stone seen. Assessment and Plan (1) Elevated liver transaminase level: Status: Acute (2) Elevated alkaline phosphatase level: Status: Acute Plan d2 57yo F with hypothyroidism, MNG, vit D def, hx cholecystectomy p/w 3-4d of RUQ pain/N/V, found to have elevated LFTs acute hepatitis, mixed hepatocellular/cholestatic - unclear cause, HBV/HCV serologies negative, MRCP showing only fatty liver disease. EBV/CMV PCR pending. GI consult pending. LFTs improving. Drug- induced liver injury? Quetiapine held. Sertraline and nortriptyline continued. Recheck LFTs in am hypothyroidism - LT4 mood disorder - meds as above VTE ppx - LMWH dispo - eventual home In my clinical judgment, the patient requires continued inpatient hospitalization for the following reasons: acute hepatic injury Total time managing care of this patient today: 35 minutes. Quality Stroke Does the patient have a stroke diagnosis?: No VTE Prior VTE?: No VTE Risk Level:: Medical - moderate - high VTE Device Contraindication: N/A - Device Ordered VTE Drug Contraindication: N/A - Med Ordered
[2023-01-14 11:25] VITALS: BP 109/65; PULSE 71; RESP 16; TEMP 37.2; O2SAT 94
[2023-01-14] MEDS: ondansetron HCL 4 MG/2 ML VIAL IVPUSH (13:29)
[2023-01-14] MEDS: Enoxaparin Sodium 40 MG/0.4 ML SYRINGE SUBCUT (13:29)
[2023-01-14] MEDS: Sennosides/Docusate Sodium TABLET 2 TAB PO ×2 (14:44→19:36)
[2023-01-14] MEDS: polyethylene glycoL 3350 17 GM POWD.PACK PO (14:44)
[2023-01-14 15:48] VITALS: BP 124/65; PULSE 89; RESP 20; TEMP 36.1; O2SAT 98
[2023-01-14] MEDS: Nortriptyline HCl 25 MG CAPSULE 100 MG PO (19:36)
[2023-01-14] MEDS: 0.9 % Sodium Chloride Flush 3 ML SYRINGE IVFLUSH (19:37)
[2023-01-14 19:38] VITALS: BP 119/63; PULSE 80; RESP 16; TEMP 37.3; O2SAT 98
[2023-01-14] MEDS: QUEtiapine Fumarate 100 MG TABLET PO (19:40)
[2023-01-15] VITALS: BP 109/60; PULSE 79; RESP 18; TEMP 37; O2SAT 96
[2023-01-15 03:26] VITALS: BP 119/61; PULSE 71; RESP 18; TEMP 37.2; O2SAT 97
[2023-01-15] MEDS: Levothyroxine Sodium 100 MCG TABLET PO (06:05)
[2023-01-15 07:04] LABS: Alanine Aminotransferase 264 U/L (0-31); Albumin Level 3.6 g/dL (3.5-5.0); Alkaline Phosphatase 324 U/L (39-117); Anion Gap 10 (12-20); Aspartate Amino Transferase 107 U/L (5-31); Bilirubin Total 0.5 mg/dL (0.0-1.0); Blood Urea Nitrogen 16 mg/dL (9-16); Calcium 9.7 mg/dL (8.4-10.2); Carbon Dioxide 28 mmol/L (22-29); Chloride 108 mmol/L (96-108); Creatinine Clr Calc Pharmacy 56.1; Estimated Glomerular Filt Rate > 60; Gamma Glutamyl Transpeptidase 1582 U/L (7-33); Glucose Random 140 mg/dL (60-115); Potassium 3.8 mmol/L (3.3-5.1); Sodium 142 mmol/L (135-145); Total Protein 6.5 g/dL (6.5-8.0)
[2023-01-15 07:09] LABS: INTERNATIONAL NORM RATIO 0.9 (0.9-1.1); Prothrombin Time 10.8 SEC (11.1-13.3)
[2023-01-15 07:11] LABS: Hematocrit 44.1 % (37.0-47.0); Hemoglobin 14.4 g/dl (12.0-16.0); Mean Corpuscular HGB Conc 32.7 g/dl (31.0-35.0); Mean Corpuscular Hemoglobin 30.6 pg (27.0-33.0); Mean Corpuscular Volume 93.8 fL (80.0-98.0); Mean Platelet Volume 10.5 fL (9.4-12.3); Platelet Count 209 X10*3/uL (160-400); Red Cell Distribution Width 13.5 % (11.0-16.0); White Blood Count 4.9 X10*3/uL (4.8-10.8)
[2023-01-15 07:33] VITALS: BP 109/52; PULSE 72; RESP 20; TEMP 36.8; O2SAT 96
[2023-01-15] MEDS: Sennosides/Docusate Sodium TABLET 2 TAB PO ×2 (08:35→19:58)
[2023-01-15] MEDS: polyethylene glycoL 3350 17 GM POWD.PACK PO (08:35)
[2023-01-15] MEDS: Cholecalciferol (Vitamin D3) 25 MCG TABLET 50 MCG PO (08:35)
[2023-01-15] MEDS: 0.9 % Sodium Chloride Flush 3 ML SYRINGE IVFLUSH ×2 (08:36→19:58)
[2023-01-15 10:54] VITALS: BP 141/76; PULSE 84; RESP 20; TEMP 36.7; O2SAT 100
--- NOTE | 2023-01-15 11:02 | PM.DS ---
DS: Providers Provider Date of Service: 01/15/23 Date of admission: 01/13/23 14:09 Primary care physician: Giana Isbell MD Consults: 01/13/23 12:15 Consult to Gastroenterology Stat Consulting Provider: William Snow Reason for consultation: Upper ABD pain, elevated LFTs Has provider been notified: Yes 01/13/23 14:15 Consult to Gastroenterology Routine Consulting Provider: William Snow Reason for consultation: acute hepatitis, prior CCK DS: Diagnosis Discharge Diagnosis (1) Acute hepatitis: Status: Acute (2) Abdominal pain: Status: Acute (3) Sphincter of Oddi spasm: Status: Acute (4) Constipation: Status: Acute DS: Summary Hospital Course Hospital Course: From the history and physical by the admitting hospitalist, Loy Perales MD, 01/13/23: The patient is a 57 year old female with a PMH of hypothyroidism, multinodular goiter, vit D deficiency, s/p CCK who presents to the ED with a 3 to 4 day history of upper abdominal pain with associated nause and vomting. The patient reports the pain is constant and progressive, crampy in nature. She endorses associated nausea without vomiting. She does endorse constipation. She denies any bleeding. No fevers or chills. No sick contacts. She reports a decreased appetite and an inability to tolerate even water. She denies any cardiopulmonary symptoms. She reports intermittent tylenol use (but none recently). She denies NSAID. No EtOH, tobacco or illicit substance use. In the ED, her work up including blood work and imaging studies revealed: elevated T. Bili 1.4, AST/ALT/Alk Phos - 550/420/363 respectively, lipase 30; CT abd/pelvis showing hepatic steatosis without other acute findings; Her case was d/w gastroenterology and now will be admitted for further work up. Of note -- the patient had a very similar presentation in July 2022. She was evaluated with MRCP which was negative. Her viral hepatitis serologies were negative at that time. Since then, her LFTs have improved dramatically and her most recently labs from November show normal bili with mild AST/ALT/ALP elevation (35/47/135, respectively). 57yo F with hypothyroidism, MNG, vit D def, and hx cholecystectomy who presented with 3-4d of RUQ pain/N/V and was found to have elevated LFTs in a mixed hepatocellular/cholestatic pattern. HBV/HCV serologies negative, EBV/CMV PCR pending. MRCP showed only fatty liver disease. GI was consulted. Likely diagnosis given recurrence is Sphincter of Oddi spasm. LFTs improved along with pain and N/V. The patient will follow up with Dr Snow in 1-2 weeks and outpatient ERCP/sphincterotomy. She will repeat LFTs + GGT in 1 week. She was given bowel regimen for constipation. Time Attestation Discharge coordination time: Greater than 30 minutes Quality: Safe Use of Opioids Does Pt have an Active Cancer Diagnosis on the Problem List?: No Quality: Stroke Does the patient have a stroke diagnosis?: No Physical Exam Vital Signs: Vital Signs: Last Vital Signs Temp 98.1 F 01/15/23 10:54 Pulse 84 01/15/23 10:54 Resp 20 01/15/23 10:54 BP 141/76 H 01/15/23 10:54 Pulse Ox 100 01/15/23 10:54 O2 Del Method Room Air 01/15/23 10:54 BMI result Body Mass Index 27.9 Gen: in no acute distress HEENT: sclera anicteric, moist mucus membranes Neck: supple Lungs: clear to auscultation bilaterally Heart: regular rate and rhythm, no murmurs Abd: soft, non-tender, non-distended Ext: no edema Skin: warm/well-perfused Neuro: alert and oriented x3, no focal findings Psych: appropriate affect DS: Data Data Completed and Pending Completed studies during hospitalization [Text1]: Laboratory Results WBC 4.9 X10*3/uL (4.8-10.8) 01/15/23 05:54 RBC 4.70 X10*6/uL (4.20-5.50) 01/15/23 05:54 Hgb 14.4 g/dl (12.0-16.0) 01/15/23 05:54 Hct 44.1 % (37.0-47.0) 01/15/23 05:54 MCV 93.8 fL (80.0-98.0) 01/15/23 05:54 MCH 30.6 pg (27.0-33.0) 01/15/23 05:54 MCHC 32.7 g/dl (31.0-35.0) 01/15/23 05:54 RDW 13.5 % (11.0-16.0) 01/15/23 05:54 Plt Count 209 X10*3/uL (160-400) 01/15/23 05:54 MPV 10.5 fL (9.4-12.3) 01/15/23 05:54 Absolute Nucleated RBC 0.000 X10*3/uL (0.0-0.012) 01/15/23 05:54 Nucleated RBC % (auto) 0.0 /100WBC (0.0-0.2) 01/15/23 05:54 Hold Purple Top SEE NOTE 01/14/23 06:38 PT 10.8 SEC (11.1-13.3) L 01/15/23 05:54 INR 0.9 (0.9-1.1) 01/15/23 05:54 Sodium 142 mmol/L (135-145) 01/15/23 05:54 Potassium 3.8 mmol/L (3.3-5.1) 01/15/23 05:54 Chloride 108 mmol/L (96-108) 01/15/23 05:54 Carbon Dioxide 28 mmol/L (22-29) 01/15/23 05:54 Anion Gap 10 (12-20) L 01/15/23 05:54 BUN 16 mg/dL (9-16) 01/15/23 05:54 Creatinine 0.93 mg/dL (0.5-1.4) 01/15/23 05:54 Estim Creat Clear Calc 56.1 01/15/23 05:54 Estimated GFR > 60 01/15/23 05:54 Random Glucose 140 mg/dL (60-115) H 01/15/23 05:54 Calcium 9.7 mg/dL (8.4-10.2) D 01/15/23 05:54 Total Bilirubin 0.5 mg/dL (0.0-1.0) 01/15/23 05:54 Direct Bilirubin 1.1 mg/dL (0.0-0.5) H 01/13/23 07:06 GGT 1582 U/L (7-33) H 01/15/23 05:54 AST 107 U/L (5-31) H 01/15/23 05:54 ALT 264 U/L (0-31) H 01/15/23 05:54 Alkaline Phosphatase 324 U/L (39-117) H 01/15/23 05:54 Total Protein 6.5 g/dL (6.5-8.0) 01/15/23 05:54 Albumin 3.6 g/dL (3.5-5.0) 01/15/23 05:54 Lipase 30 U/L (8-78) 01/13/23 07:06 Urine Color Yellow 01/13/23 07:03 Urine Appearance Clear 01/13/23 07:03 Urine pH 7.5 (5.0-9.0) 01/13/23 07:03 Ur Specific [place] 1.020 (1.005-1.025) 01/13/23 07:03 Urine Protein Negative mg/dL (Neg-Trace) 01/13/23 07:03 Urine Glucose (UA) 100 mg/dL (Negative) H 01/13/23 07:03 Urine Ketones Negative mg/dL (Negative) 01/13/23 07:03 Urine Blood Negative (Negative) 01/13/23 07:03 Urine Nitrite Negative (Negative) 01/13/23 07:03 Ur Leukocyte Esterase Negative (Negative) 01/13/23 07:03 Urine RBC 0-2 /HPF (0-2) 01/13/23 07:03 Urine WBC 0-5 /HPF (0-5) 01/13/23 07:03 Ur Squamous Epith Cells 6-10 /HPF (0-2) 01/13/23 07:03 Urine Bacteria None Seen (None Seen) 01/13/23 07:03 Hyaline Casts 0-2 /LPF (0-2) 01/13/23 07:03 Acetaminophen < 3 mcg/mL (<30) 01/13/23 09:50 Hepatitis A IgM Ab Nonreactive (Nonreactive) 01/13/23 09:50 Hep Bs Antigen Negative (Negative) 01/13/23 09:50 Hep Bs Antibody NONREACTIVE (Nonreactive) 01/13/23 09:50 Hep B Core Total Ab Nonreactive (Nonreactive) 01/13/23 09:50 Hepatitis C Ab (EIA) Nonreactive (Nonreactive) 01/13/23 09:50 Impressions Abdomen/Pelvis CT 01/13/23 09:55 IMPRESSION: Hepatic steatosis. Cholangiopancreatography MRI 01/14/23 09:40 IMPRESSION: Fatty infiltration of the liver. No intra or extrahepatic biliary duct dilatation or common bile duct filling defect/stone seen. Discharge Plan Discharge Anticipated Discharge Date/Time: 01/15/23 10:45 Patient Disposition: Home, Self-Care Discharge Diagnosis: hepatocellular/cholestatic liver injury likely due to Sphincter of Oddi spasm constipation Referrals: Giana Isbell MD [Primary Care Provider] - 1 Week William Snow MD [Physician] - 2 Weeks Discharge Medications: New sennosides-docusate sodium [Senna Plus] 8.6-50 mg Tablet 2 tab PO BID Qty: 120 0RF polyethylene glycol 3350 17 gram Powder In Packet 17 g PO DAILY Qty: 30 0RF ondansetron 4 mg tablet,disintegrating 4 mg PO Q8H PRN (Reason: nausea and vomiting) Qty: 14 0RF oxycodone 5 mg tablet 5 mg PO Q8H PRN (Reason: severe pain (scale score 7-10)) Qty: 9 0RF Rx Instructions: Partial Fill upon patient request. Continued cholecalciferol (vitamin D3) 50 mcg (2,000 unit) Tablet 50 mcg PO DAILY docusate sodium 100 mg Capsule 100 mg PO DAILY PRN (Reason: Constipation) fluticasone propionate 50 mcg/actuation spray,suspension 1 - 2 spray intranasal DAILY PRN (Reason: Allergic Symptoms) acetaminophen [Tylenol] 325 mg Tablet 650 mg PO Q6H PRN (Reason: Pain) naproxen 250 mg Tablet 250 mg PO BID PRN (Reason: Pain) quetiapine 100 mg tablet 100 mg PO BEDTIME PRN (Reason: Sleep) sumatriptan succinate 100 mg tablet 100 mg PO Q2-4H PRN (Reason: Headache) Rx Instructions: do not exceed 2 doses per 24 hrs nortriptyline 50 mg capsule 100 mg PO BEDTIME loratadine 10 mg tablet 10 mg PO DAILY PRN (Reason: allergies) sertraline 100 mg tablet 150 mg PO DAILY levothyroxine 50 mcg tablet 100 mcg PO DAILY famotidine 20 mg tablet 20 mg PO DAILY Qty: 30 3RF Discharge Orders: Discharge Order (Routine); Ordered 01/15/23 Ordered By: Anjana Ortega Diet: Advance to usual diet Activity on Discharge: As tolerated Stand Alone Forms: Patient Portal Discharge page Other Ambulatory Orders: Gamma Glutamyl Transpeptidase (Routine) Timeframe: 1 Week Facility: [facility] - Location: Laboratory Ordered By: Anjana Ortega Liver Panel (Routine) Timeframe: 1 Week Facility: [facility] - Location: Laboratory Ordered By: Anjana Ortega Care Plan Goals: diagnosis and management of hepatobiliary condition Health Concerns: hepatocellular/cholestatic liver injury likely due to Sphincter of Oddi spasm - repeat labs in 1 week [LFTs, GGT] - see Dr Snow from [facility] Gastroenterology in 2 weeks; to arrange ERCP/sphincterotomy - ondansetron for nausea/vomiting, oxycodone for severe pain - low-fat diet constipation - increase fiber and fluids, take Miralax and docusate/senna Plan of Treatment: as above Assessment: See Discharge Summary.
--- NOTE | 2023-01-15 11:16 | P.PNIM_ITS ---
Subjective Subjective Date of Service: 01/15/23 Interval History: This history was taken in Indonesian from the patient. Pt was going to be discharged but developed severe RUQ pain again so stopped discharge. Review of Systems Review of Systems: Yes all other systems are reviewed and are negative Physical Exam 2 Vital Signs: Vital Signs: Last Vital Signs Temp 98.1 F 01/15/23 10:54 Pulse 84 01/15/23 10:54 Resp 20 01/15/23 10:54 BP 141/76 H 01/15/23 10:54 Pulse Ox 100 01/15/23 10:54 O2 Del Method Room Air 01/15/23 10:54 BMI result Body Mass Index 27.9 Gen: in no acute distress HEENT: sclera anicteric, moist mucus membranes Neck: supple Lungs: clear to auscultation bilaterally Heart: regular rate and rhythm, no murmurs Abd: soft, RUQ tender, non-distended Ext: no edema Skin: warm/well-perfused Neuro: alert and oriented x3, no focal findings Psych: appropriate affect Objective Data Active Medications Enoxaparin Sodium (Enoxaparin Sodium 40 Mg/0.4 Ml Syringe) 40 mg SUBCUT Q24H [facility] Last Admin: 01/14/23 13:29 Dose: 40 mg Documented By: CINTHIA Levothyroxine Sodium (Levothyroxine Sodium 100 Mcg Tablet) 100 mcg PO DAILY@0600 [facility] Last Admin: 01/15/23 06:05 Dose: 100 mcg Documented By: HENRY Morphine Sulfate (Morphine Sulfate 4 Mg/Ml Cartridge) 4 mg IVPUSH Q4H PRN; Protocol PRN Reason: Pain, Severe (Pain Scale 7-10) Nortriptyline HCl (Nortriptyline Hcl 25 Mg Capsule) 100 mg PO BEDTIME [facility] Last Admin: 01/14/23 19:36 Dose: 100 mg Documented By: HENRY Ondansetron HCl (Ondansetron Hcl 4 Mg/2 Ml Vial) 4 mg IVPUSH Q4H PRN PRN Reason: nausea/vomiting Last Admin: 01/14/23 13:29 Dose: 4 mg Documented By: CINTHIA Polyethylene Glycol (Polyethylene Glycol 3350 17 Gm Powd.Pack) 17 gm PO DAILY [facility] Last Admin: 01/15/23 08:35 Dose: 17 gm Documented By: MARTITA Quetiapine Fumarate (Quetiapine Fumarate 100 Mg Tablet) 100 mg PO BEDTIME PRN PRN Reason: Sleep Last Admin: 01/14/23 19:40 Dose: 100 mg Documented By: HENRY Senna/Docusate Sodium (Sennosides/Docusate Sodium Tablet) 2 tab PO BID [facility] Last Admin: 01/15/23 08:35 Dose: 2 tab Documented By: MARTITA Sertraline HCl (Sertraline Hcl 50 Mg Tablet) 150 mg PO DAILY [facility] Last Admin: 01/15/23 08:37 Dose: Not Given Documented By: MARTITA Non-Admin Reason: Patient Refused Sodium Chloride (0.9 % Sodium Chloride Flush 3 Ml Syringe) 3 ml IVFLUSH QSHIFT [facility] Last Admin: 01/15/23 08:36 Dose: 3 ml Documented By: MARTITA Vitamin D (Cholecalciferol (Vitamin D3) 25 Mcg Tablet) 50 mcg PO DAILY [facility] Last Admin: 01/15/23 08:35 Dose: 50 mcg Documented By: MARTITA Labs 01/15/23 05:54 01/15/23 05:54 Labs: Laboratory Results - last 24 hr 01/15/23 05:54 MCV 93.8 MCH 30.6 MCHC 32.7 RDW 13.5 Plt Count 209 MPV 10.5 Absolute Nucleated RBC 0.000 Nucleated RBC % (auto) 0.0 PT 10.8 L INR 0.9 Anion Gap 10 L Estim Creat Clear Calc 56.1 Estimated GFR > 60 Random Glucose 140 H Calcium 9.7 D Total Bilirubin 0.5 GGT 1582 H AST 107 H ALT 264 H Alkaline Phosphatase 324 H Total Protein 6.5 Albumin 3.6 Assessment and Plan (1) Elevated liver transaminase level: Status: Acute (2) Elevated alkaline phosphatase level: Status: Acute Plan d3 57yo F with hypothyroidism, MNG, vit D def, hx cholecystectomy p/w 3-4d of RUQ pain/N/V, found to have elevated LFTs acute hepatitis, mixed hepatocellular/cholestatic - HBV/HCV serologies negative, MRCP showing only fatty liver disease. EBV/CMV PCR pending. 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- will get outpt ERCP/sphinecterotomy. Recheck LFTs/GGT tomorrow and in 1 wk. - ondansetron for nausea/vomiting, morphine/APAP for pain hypothyroidism - LT4 mood disorder - continue home meds VTE ppx - LMWH dispo - eventual home In my clinical judgment, the patient requires continued inpatient hospitalization for the following reasons: acute hepatic injury Total time managing care of this patient today: 35 minutes. Quality Stroke Does the patient have a stroke diagnosis?: No VTE Prior VTE?: No VTE Risk Level:: Medical - moderate - high VTE Device Contraindication: N/A - Device Ordered VTE Drug Contraindication: N/A - Med Ordered
[2023-01-15] MEDS: Morphine Sulfate 4 MG/ML CARTRIDGE IVPUSH (11:19)
[2023-01-15 15:25] VITALS: BP 125/73; PULSE 81; RESP 16; TEMP 36.4; O2SAT 95
[2023-01-15] MEDS: ondansetron HCL 4 MG/2 ML VIAL IVPUSH (15:56)
[2023-01-15] MEDS: Enoxaparin Sodium 40 MG/0.4 ML SYRINGE SUBCUT (15:56)
[2023-01-15 18:43] VITALS: BP 116/59; PULSE 84; RESP 20; TEMP 36.6; O2SAT 97
[2023-01-15] MEDS: QUEtiapine Fumarate 100 MG TABLET PO (19:58)
[2023-01-15] MEDS: Nortriptyline HCl 25 MG CAPSULE 100 MG PO (19:58)
[2023-01-16] VITALS (7 sets, daily range): BP systolic 101–135; BP diastolic 56–70; PULSE 71–89; RESP 16–20; TEMP 36.1–37.1; O2SAT 95–98
[2023-01-16] MEDS: Levothyroxine Sodium 100 MCG TABLET PO (05:35)
[2023-01-16 07:18] LABS: Alanine Aminotransferase 371 U/L (0-31); Albumin Level 3.8 g/dL (3.5-5.0); Alkaline Phosphatase 386 U/L (39-117); Aspartate Amino Transferase 189 U/L (5-31); Bilirubin Direct 0.4 mg/dL (0.0-0.5); Bilirubin Total 0.8 mg/dL (0.0-1.0); Total Protein 6.8 g/dL (6.5-8.0)
[2023-01-16 07:29] LABS: Gamma Glutamyl Transpeptidase 1810 U/L (7-33)
[2023-01-16] MEDS: Cholecalciferol (Vitamin D3) 25 MCG TABLET 50 MCG PO (08:21)
[2023-01-16] MEDS: polyethylene glycoL 3350 17 GM POWD.PACK PO (08:21)
[2023-01-16] MEDS: Sennosides/Docusate Sodium TABLET 2 TAB PO (08:21)
[2023-01-16] MEDS: 0.9 % Sodium Chloride Flush 3 ML SYRINGE IVFLUSH ×2 (08:23→20:35)
[2023-01-16 08:35] LABS: Lipase 20 U/L (8-78)
--- NOTE | 2023-01-16 09:55 | HO.PM.IMPN ---
Subjective Subjective Date of Service: 01/16/23 Interval History: This history was taken in Sinhala from the patient. RUQ pain improved, LFTs worse Review of Systems Review of Systems: Yes all other systems are reviewed and are negative Physical Exam Vital Signs: Vital Signs: Last Vital Signs Temp 97.9 F 01/16/23 07:12 Pulse 71 01/16/23 07:12 Resp 18 01/16/23 07:12 BP 116/58 L 01/16/23 07:12 Pulse Ox 97 01/16/23 07:12 O2 Del Method Room Air 01/16/23 07:12 BMI result Body Mass Index 27.9 Gen: in no acute distress HEENT: sclera anicteric, moist mucus membranes Neck: supple Lungs: clear to auscultation bilaterally Heart: regular rate and rhythm, no murmurs Abd: soft, non-tender, non-distended Ext: no edema Skin: warm/well-perfused Neuro: alert and oriented x3, no focal findings Psych: appropriate affect Objective Data Active Medications Enoxaparin Sodium (Enoxaparin Sodium 40 Mg/0.4 Ml Syringe) 40 mg SUBCUT Q24H REPLACED BY [facility] Last Admin: 01/15/23 15:56 Dose: 40 mg Documented By: MARTITA Levothyroxine Sodium (Levothyroxine Sodium 100 Mcg Tablet) 100 mcg PO DAILY@0600 REPLACED BY [facility] Last Admin: 01/16/23 05:35 Dose: 100 mcg Documented By: RAMY Morphine Sulfate (Morphine Sulfate 4 Mg/Ml Cartridge) 4 mg IVPUSH Q4H PRN; Protocol PRN Reason: Pain, Severe (Pain Scale 7-10) Last Admin: 01/15/23 11:19 Dose: 4 mg Documented By: MARTITA Nortriptyline HCl (Nortriptyline Hcl 25 Mg Capsule) 100 mg PO BEDTIME REPLACED BY [facility] Last Admin: 01/15/23 19:58 Dose: 100 mg Documented By: HENRY Ondansetron HCl (Ondansetron Hcl 4 Mg/2 Ml Vial) 4 mg IVPUSH Q4H PRN PRN Reason: nausea/vomiting Last Admin: 01/15/23 15:56 Dose: 4 mg Documented By: MARTITA Polyethylene Glycol (Polyethylene Glycol 3350 17 Gm Powd.Pack) 17 gm PO DAILY REPLACED BY [facility] Last Admin: 01/16/23 08:21 Dose: 17 gm Documented By: MARTITA Quetiapine Fumarate (Quetiapine Fumarate 100 Mg Tablet) 100 mg PO BEDTIME PRN PRN Reason: Sleep Last Admin: 01/15/23 19:58 Dose: 100 mg Documented By: HENRY Senna/Docusate Sodium (Sennosides/Docusate Sodium Tablet) 2 tab PO BID REPLACED BY [facility] Last Admin: 01/16/23 08:21 Dose: 2 tab Documented By: MARTITA Sertraline HCl (Sertraline Hcl 50 Mg Tablet) 150 mg PO DAILY REPLACED BY [facility] Last Admin: 01/16/23 08:23 Dose: Not Given Documented By: MARTITA Non-Admin Reason: Patient Refused Sodium Chloride (0.9 % Sodium Chloride Flush 3 Ml Syringe) 3 ml IVFLUSH QSHIFT REPLACED BY [facility] Last Admin: 01/16/23 08:23 Dose: 3 ml Documented By: MARTITA Vitamin D (Cholecalciferol (Vitamin D3) 25 Mcg Tablet) 50 mcg PO DAILY REPLACED BY [facility] Last Admin: 01/16/23 08:21 Dose: 50 mcg Documented By: MARTITA Labs 01/15/23 05:54 01/15/23 05:54 Labs: Laboratory Results - last 24 hr 01/16/23 01/16/23 05:22 05:52 Hold Purple Top SEE NOTE Total Bilirubin 0.8 Direct Bilirubin 0.4 GGT 1810 H AST 189 H ALT 371 H Alkaline Phosphatase 386 H Total Protein 6.8 Albumin 3.8 Lipase 20 Assessment and Plan (1) Elevated liver transaminase level: Status: Acute (2) Elevated alkaline phosphatase level: Status: Acute Plan d4 57yo F with hypothyroidism, MNG, vit D def, hx cholecystectomy p/w 3-4d of RUQ pain/N/V, found to have elevated LFTs acute hepatitis, mixed hepatocellular/cholestatic - HBV/HCV serologies negative, MRCP showing only fatty liver disease. EBV/CMV PCR pending. 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. Given symptom recurrence + worsening LFTs keep inpatient to consider ERCP/sphincterotomy while in-house. Recheck LFTs in AM. - ondansetron for nausea/vomiting, morphine/APAP for pain hypothyroidism - LT4 mood disorder - continue home meds VTE ppx - LMWH dispo - eventual home In my clinical judgment, the patient requires continued inpatient hospitalization for the following reasons: hepatitis, inpt ERCP Total time managing care of this patient today: 35 minutes. Quality Stroke Does the patient have a stroke diagnosis?: No VTE Prior VTE?: No VTE Risk Level:: Medical - moderate - high VTE Device Contraindication: N/A - Device Ordered VTE Drug Contraindication: N/A - Med Ordered
[2023-01-16] MEDS: Nortriptyline HCl 25 MG CAPSULE 100 MG PO (20:31)
[2023-01-16] MEDS: QUEtiapine Fumarate 100 MG TABLET PO (20:34)
[2023-01-17 03:37] VITALS: BP 110/51; PULSE 72; RESP 17; TEMP 37; O2SAT 97
[2023-01-17 07:16] VITALS: BP 121/63; PULSE 88; RESP 18; TEMP 37; O2SAT 98
[2023-01-17 07:17] LABS: Alanine Aminotransferase 281 U/L (0-31); Albumin Level 3.7 g/dL (3.5-5.0); Alkaline Phosphatase 346 U/L (39-117); Aspartate Amino Transferase 107 U/L (5-31); Bilirubin Direct 0.3 mg/dL (0.0-0.5); Bilirubin Total 0.6 mg/dL (0.0-1.0); Gamma Glutamyl Transpeptidase 1589 U/L (7-33); Total Protein 6.7 g/dL (6.5-8.0)
[2023-01-17] MEDS: 0.9 % Sodium Chloride Flush 3 ML SYRINGE IVFLUSH ×3 (08:29→21:26)
[2023-01-17] MEDS: polyethylene glycoL 3350 17 GM POWD.PACK PO (08:29)
[2023-01-17] MEDS: Cholecalciferol (Vitamin D3) 25 MCG TABLET 50 MCG PO (08:29)
[2023-01-17] MEDS: Sennosides/Docusate Sodium TABLET 2 TAB PO ×2 (08:29→21:26)
--- NOTE | 2023-01-17 09:53 | HO.PM.IMPN ---
Subjective Subjective Date of Service: 01/17/23 Interval History: This history was taken in Faroese from the patient. N/V improved, abd pain resolved LFTs improving again Review of Systems Review of Systems: Yes all other systems are reviewed and are negative Physical Exam Vital Signs: Vital Signs: Last Vital Signs Temp 98.6 F 01/17/23 07:16 Pulse 88 01/17/23 07:16 Resp 18 01/17/23 07:16 BP 121/63 01/17/23 07:16 Pulse Ox 98 01/17/23 07:16 O2 Del Method Room Air 01/17/23 07:16 BMI result Body Mass Index 27.9 Gen: in no acute distress HEENT: sclera anicteric, moist mucus membranes Neck: supple Lungs: clear to auscultation bilaterally Heart: regular rate and rhythm, no murmurs Abd: soft, mild RUQ tenderness without rebound, non-distended Ext: no edema Skin: warm/well-perfused Neuro: alert and oriented x3, no focal findings Psych: appropriate affect Objective Data Active Medications Enoxaparin Sodium (Enoxaparin Sodium 40 Mg/0.4 Ml Syringe) 40 mg SUBCUT Q24H [facility] Last Admin: 01/16/23 15:31 Dose: Not Given Documented By: MARTITA Non-Admin Reason: Physician Held Med Levothyroxine Sodium (Levothyroxine Sodium 100 Mcg Tablet) 100 mcg PO DAILY@0600 [facility] Last Admin: 01/17/23 05:08 Dose: Not Given Documented By: CARRIE Non-Admin Reason: NPO Morphine Sulfate (Morphine Sulfate 4 Mg/Ml Cartridge) 4 mg IVPUSH Q4H PRN; Protocol PRN Reason: Pain, Severe (Pain Scale 7-10) Last Admin: 01/15/23 11:19 Dose: 4 mg Documented By: MARTITA Nortriptyline HCl (Nortriptyline Hcl 25 Mg Capsule) 100 mg PO BEDTIME [facility] Last Admin: 01/16/23 20:31 Dose: 100 mg Documented By: CARRIE Ondansetron HCl (Ondansetron Hcl 4 Mg/2 Ml Vial) 4 mg IVPUSH Q4H PRN PRN Reason: nausea/vomiting Last Admin: 01/15/23 15:56 Dose: 4 mg Documented By: MARTITA Polyethylene Glycol (Polyethylene Glycol 3350 17 Gm Powd.Pack) 17 gm PO DAILY [facility] Last Admin: 01/17/23 08:29 Dose: 17 gm Documented By: YURIY Quetiapine Fumarate (Quetiapine Fumarate 100 Mg Tablet) 100 mg PO BEDTIME PRN PRN Reason: Sleep Last Admin: 01/16/23 20:34 Dose: 100 mg Documented By: CARRIE Senna/Docusate Sodium (Sennosides/Docusate Sodium Tablet) 2 tab PO BID [facility] Last Admin: 01/17/23 08:29 Dose: 2 tab Documented By: YURIY Sertraline HCl (Sertraline Hcl 50 Mg Tablet) 150 mg PO DAILY [facility] Last Admin: 01/17/23 08:34 Dose: Not Given Documented By: YURIY Non-Admin Reason: Patient Refused Sodium Chloride (0.9 % Sodium Chloride Flush 3 Ml Syringe) 3 ml IVFLUSH QSHIFT [facility] Last Admin: 01/17/23 08:29 Dose: 3 ml Documented By: YURIY Vitamin D (Cholecalciferol (Vitamin D3) 25 Mcg Tablet) 50 mcg PO DAILY [facility] Last Admin: 01/17/23 08:29 Dose: 50 mcg Documented By: YURIY Labs 01/15/23 05:54 01/15/23 05:54 Labs: Laboratory Results - last 24 hr 01/17/23 05:57 Hold Purple Top SEE NOTE Total Bilirubin 0.6 Direct Bilirubin 0.3 GGT 1589 H AST 107 H ALT 281 H Alkaline Phosphatase 346 H Total Protein 6.7 Albumin 3.7 Assessment and Plan (1) Elevated liver transaminase level: Status: Acute (2) Elevated alkaline phosphatase level: Status: Acute Plan d5 57yo F with hypothyroidism, MNG, vit D def, hx cholecystectomy p/w 3-4d of RUQ pain/N/V, found to have elevated LFTs acute hepatitis, mixed hepatocellular/cholestatic - HBV/HCV serologies negative, MRCP showing only fatty liver disease. EBV/CMV PCR pending. 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 - pt was to be discharged home 01/15/23 with plans for outpt ERCP/sphincterotomy but had recurrence of severe pain with worsening LFTs, so plan for inpt ERCP/sphincterotomy with Dr Howard tomorrow; NPO after midnight and hold LMWH - recheck LFTs in AM - ondansetron for nausea/vomiting, morphine/APAP for pain constipation - bowel regimen ] hypothyroidism - LT4 mood disorder - continue home meds VTE ppx - LMWH dispo - eventual home In my clinical judgment, the patient requires continued inpatient hospitalization for the following reasons: hepatitis, inpt ERCP Total time managing care of this patient today: 35 minutes. Quality Stroke Does the patient have a stroke diagnosis?: No VTE Prior VTE?: No VTE Risk Level:: Medical - moderate - high VTE Device Contraindication: N/A - Device Ordered VTE Drug Contraindication: N/A - Med Ordered
--- NOTE | 2023-01-17 10:12 | MHC.CM.PN ---
Patient is not yet medically cleared for dc (inpatient ERCP); home/resume services is the goal and CM will continue to follow.
[2023-01-17 11:29] VITALS: BP 141/71; PULSE 89; RESP 20; TEMP 36.7; O2SAT 99
[2023-01-17 13:49] LABS: CMV DNA PCR Qn Source BLOOD; CMV DNA Qn PCR NOT DETECTED Log IU/mL (NOT DETECTED); CMV DNA Qn Real Time PCR NOT DETECTED (NOT DETECTED)
[2023-01-17 15:07] VITALS: BP 113/56; PULSE 80; RESP 20; TEMP 36.6; O2SAT 95
[2023-01-17] MEDS: Morphine Sulfate 4 MG/ML CARTRIDGE IVPUSH (19:15)
[2023-01-17 20:00] VITALS: BP 113/55; PULSE 98; RESP 18; TEMP 36.4; O2SAT 96
[2023-01-17] MEDS: Nortriptyline HCl 25 MG CAPSULE 100 MG PO (21:26)
[2023-01-17] MEDS: QUEtiapine Fumarate 100 MG TABLET PO (21:29)
[2023-01-17 23:22] VITALS: BP 115/55; PULSE 79; RESP 18; TEMP 36.6; O2SAT 96
[2023-01-18] VITALS (13 sets, daily range): BP systolic 98–133; BP diastolic 53–78; PULSE 60–93; RESP 15–20; TEMP 36.1–36.7; O2SAT 94–100
[2023-01-18 00:19] LABS: EBV Source Whole Blood
[2023-01-18 08:00] LABS: Alanine Aminotransferase 272 U/L (0-31); Albumin Level 3.8 g/dL (3.5-5.0); Alkaline Phosphatase 454 U/L (39-117); Aspartate Amino Transferase 128 U/L (5-31); Bilirubin Direct 0.3 mg/dL (0.0-0.5); Bilirubin Total 0.6 mg/dL (0.0-1.0); Gamma Glutamyl Transpeptidase 1874 U/L (7-33); Total Protein 6.9 g/dL (6.5-8.0)
[2023-01-18] MEDS: Cholecalciferol (Vitamin D3) 25 MCG TABLET 50 MCG PO (08:13)
[2023-01-18] MEDS: 0.9 % Sodium Chloride Flush 3 ML SYRINGE IVFLUSH ×3 (08:14→21:09)
--- NOTE | 2023-01-18 14:53 | MHC.SHP ---
Pre-Procedural Eval Section A Date of Service: 01/18/23 The patient is an INPATIENT: Yes The History & Physical has been completed within 30 days and I have reviewed it.: Yes Section B Chief Complaint: Abdominal Pain Nausea Allergies: Allergies Allergy/AdvReac Type Severity Reaction Status Date / Time acetaminophen [Vicodin] Allergy Unknown unk Verified 11/08/22 12:08 Penicillins AdvReac Mild HYPERTENSIO Verified 11/08/22 12:08 N hydrocodone [From VICODIN] AdvReac Unknown HIGH BP Verified 11/08/22 12:08 Plan Diagnosis/Plan: Unchanged I have reviewed the history and physical and performed a pertinent physical examination on my patient. No changes have occurred unless specified. Abn LFT, abdominal pain, concern for SOD or retained stones, sludge in CBD--plan for ERCP Time Spent With Patient Time: Total time managing care of this patient today ____ minutes.
--- NOTE | 2023-01-18 14:54 | W.PM.OPN ---
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 DESCRIPTION OF PROCEDURE: After informed consent and appropriate sedation, the duodenoscope was inserted into the oropharynx, down the esophagus, and into the stomach. The scope was then advanced through the pylorus to the ampulla. The ampulla appeared stenosed, The tome was angled and the CBD was immediately accessed. Initial cholangiogram revealed a slightly dilated duct with possible filling defects in the mid CBD> A generous sphincterotomy was performed and then an extraction balloon was exchanged over the wire. The balloon was sweeped several times with good biliary flow but no sludge or stone debris was noted. An occlusion cholangiogram was then performed and no filling defects were noted. There was some minor oozing which had ceased by the end of the procedure. The stomach was then decompressed and the endoscope was withdrawn. Mild patchy gastritis was noted on withdrawal. FINDINGS: 1. Suspected sphincter of Oddi dysfunction 2. gastritis RECOMMENDATIONS: 1. NPO except ice chips for next 4-6 hrs then clears as tolerated, can advance diet tomorrow if feels well 2. Trend LFT, might transiently go up before trending down.
--- NOTE | 2023-01-18 15:06 | P.CONAN_ITS ---
HPI - Anesthesia Eval Consult details Narrative: Increased LFT's PMFSH Active Problems Active Problems: All Active Problems (Updated 01/15/23 @ 11:05 by Anjana Ortega MD) Constipation (Acute) Sphincter of Oddi spasm (Acute) Elevated liver transaminase level (Acute) Elevated alkaline phosphatase level (Acute) Biliary colic (Acute) Hospital discharge follow-up (Acute) Abdominal pain (Acute) Acute hepatitis (Acute) Transaminitis (Acute) Hepatitis (Acute) UTI (urinary tract infection) (Acute) Microscopic hematuria (Acute) Endocervical polyp (Acute) Postmenopausal bleeding (Acute) Female pelvic pain (Acute) Iron deficiency anemia (Acute) Painful arc syndrome of right shoulder (Acute) Vitamin D deficiency (Acute) Multinodular thyroid (Acute) Past Medical History Medical History Vitamin D deficiency Multinodular thyroid Hypothyroidism Family History Family History Father No problems noted. 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) Alcohol intake: never Patient Tobacco Use Status: Never used Tobacco service: No Current occupational status: unemployed Meds Allergies Allergy/AdvReac Type Severity Reaction Status Date / Time acetaminophen [Vicodin] Allergy Unknown unk Verified 11/08/22 12:08 Penicillins AdvReac Mild HYPERTENSIO Verified 11/08/22 12:08 N hydrocodone [From VICODIN] AdvReac Unknown HIGH BP Verified 11/08/22 12:08 Active Medications: Current Medications Enoxaparin Sodium (Enoxaparin Sodium 40 Mg/0.4 Ml Syringe) 40 mg SUBCUT Q24H [facility] Last Admin: 01/16/23 15:31 Dose: Not Given Cefazolin Sodium 1 gm/ Sodium (Chloride) 50 mls @ 100 mls/hr IV PREOP ONE Stop: 01/18/23 15:23 Levothyroxine Sodium (Levothyroxine Sodium 100 Mcg Tablet) 100 mcg PO D AILY@0600 [facility] Last Admin: 01/18/23 05:22 Dose: Not Given Nortriptyline HCl (Nortriptyline Hcl 25 Mg Capsule) 100 mg PO BEDTIME [facility] Last Admin: 01/17/23 21:26 Dose: 100 mg Ondansetron HCl (Ondansetron Hcl 4 Mg/2 Ml Vial) 4 mg IVPUSH Q4H PRN PRN Reason: nausea/vomiting Last Admin: 01/15/23 15:56 Dose: 4 mg Polyethylene Glycol (Polyethylene Glycol 3350 17 Gm Powd.Pack) 17 gm PO DAILY [facility] Last Admin: 01/18/23 08:18 Dose: Not Given Quetiapine Fumarate (Quetiapine Fumarate 100 Mg Tablet) 100 mg PO BEDTIME PRN PRN Reason: Sleep Last Admin: 01/17/23 21:29 Dose: 100 mg Senna/Docusate Sodium (Sennosides/Docusate Sodium Tablet) 2 tab PO BID [facility] Last Admin: 01/18/23 08:18 Dose: Not Given Sertraline HCl (Sertraline Hcl 50 Mg Tablet) 150 mg PO DAILY [facility] Last Admin: 01/18/23 08:18 Dose: Not Given Sodium Chloride (0.9 % Sodium Chloride Flush 3 Ml Syringe) 3 ml IVFLUSH QSHIFT [facility] Last Admin: 01/18/23 08:14 Dose: 3 ml Vitamin D (Cholecalciferol (Vitamin D3) 25 Mcg Tablet) 50 mcg PO DAILY [facility] Last Admin: 01/18/23 08:13 Dose: 50 mcg Home Medications Medication Instructions Recorded Confirmed Last Taken Type loratadine 10 mg tablet 10 mg PO DAILY PRN allergies 12/20/19 01/13/23 Unknown History nortriptyline 50 mg capsule 100 mg PO BEDTIME 12/20/19 01/13/23 07/16/22 History quetiapine 100 mg tablet 100 mg PO BEDTIME PRN Sleep 12/20/19 01/13/23 07/16/22 History sumatriptan succinate 100 mg tablet 100 mg PO Q2-4H PRN Headache 12/20/19 01/13/23 Unknown History sertraline 100 mg tablet 150 mg PO DAILY 10/06/20 01/13/23 07/16/22 History levothyroxine 50 mcg tablet 100 mcg PO DAILY 06/30/22 01/13/23 07/17/22 History cholecalciferol (vitamin D3) 50 50 mcg PO DAILY 07/17/22 01/13/23 07/16/22 History mcg (2,000 unit) tablet docusate sodium 100 mg capsule 100 mg PO DAILY PRN Constipation 07/17/22 01/13/23 Unknown History acetaminophen 325 mg tablet 650 mg PO Q6H PRN Pain 01/13/23 01/13/23 Unknown History (Tylenol) fluticasone propionate 50 1 - 2 spray intranasal DAILY PRN 01/13/23 01/13/23 Unknown History mcg/actuation nasal Allergic Symptoms spray,suspension naproxen 250 mg tablet 250 mg PO BID PRN Pain 01/13/23 01/13/23 Unknown History Exam Height,Weight and Vital Signs: Height 5 ft Weight 64.864 kg Last Vital Signs Temp 97.5 F 01/18/23 14:15 Pulse 82 01/18/23 14:15 Resp 15 01/18/23 14:15 BP 133/72 01/18/23 14:15 Pulse Ox 98 01/18/23 14:15 O2 Del Method Room Air 01/18/23 14:15 Pertinent Lab Results Pertinent Lab Results: Laboratory Tests 01/13/23 01/13/23 01/13/23 07:03 07:06 09:50 WBC 5.2 RBC 4.93 Hgb 15.0 Hct 45.2 MCV 91.7 MCH 30.4 MCHC 33.2 RDW 13.4 Plt Count 216 MPV 9.9 Absolute Nucleated RBC 0.000 Nucleated RBC % (auto) 0.0 Hold Purple Top PT INR Sodium 142 Potassium 3.9 Chloride 106 Carbon Dioxide 29 Anion Gap 11 L BUN 11 Creatinine 0.97 Estim Creat Clear Calc 53.7 Estimated GFR 59 Random Glucose 152 H Calcium 9.5 Total Bilirubin 1.4 H Direct Bilirubin 1.1 H GGT AST 550 H ALT 420 H Alkaline Phosphatase 363 H Total Protein 7.4 Albumin 4.2 Lipase 30 Urine Color Yellow Urine Appearance Clear Urine pH 7.5 Ur Specific [place] 1.020 Urine Protein Negative Urine Glucose (UA) 100 H Urine Ketones Negative Urine Blood Negative Urine Nitrite Negative Ur Leukocyte Esterase Negative Urine RBC 0-2 Urine WBC 0-5 Ur Squamous Epith Cells 6-10 Urine Bacteria None Seen Hyaline Casts 0-2 Acetaminophen < 3 CMV Specimen Source CMV Qnt PCR IU/mL CMV Qnt PCR log IU/mL EBV Source EBV DNA (PCR) Hepatitis A IgM Ab Nonreactive Hep Bs Antigen Negative Hep Bs Antibody NONREACTIVE Hep B Core Total Ab Nonreactive Hepatitis C Ab (EIA) Nonreactive 01/13/23 01/14/23 01/15/23 13:36 06:38 05:54 WBC 4.9 RBC 4.70 Hgb 14.4 Hct 44.1 MCV 93.8 MCH 30.6 MCHC 32.7 RDW 13.5 Plt Count 209 MPV 10.5 Absolute Nucleated RBC 0.000 Nucleated RBC % (auto) 0.0 Hold Purple Top SEE NOTE PT 10.8 L INR 0.9 Sodium 143 142 Potassium 3.9 3.8 Chloride 108 108 Carbon Dioxide 28 28 Anion Gap 11 L 10 L BUN 7 L 16 Creatinine 0.86 0.93 Estim Creat Clear Calc 60.6 56.1 Estimated GFR > 60 > 60 Random Glucose 102 140 H Calcium 9.0 9.7 D Total Bilirubin 1.2 H 0.5 Direct Bilirubin GGT 1742 H 1582 H AST 262 H 107 H ALT 385 H 264 H Alkaline Phosphatase 359 H 324 H Total Protein 6.4 L 6.5 Albumin 3.6 3.6 Lipase Urine Color Urine Appearance Urine pH Ur Specific [place] Urine Protein Urine Glucose (UA) Urine Ketones Urine Blood Urine Nitrite Ur Leukocyte Esterase Urine RBC Urine WBC Ur Squamous Epith Cells Urine Bacteria Hyaline Casts Acetaminophen CMV Specimen Source BLOOD CMV Qnt PCR IU/mL NOT DETECTED CMV Qnt PCR log IU/mL NOT DETECTED EBV Source Whole Blood EBV DNA (PCR) DETECTED (Abnormal) Hepatitis A IgM Ab Hep Bs Antigen Hep Bs Antibody Hep B Core Total Ab Hepatitis C Ab (EIA) 01/16/23 01/16/23 01/17/23 05:22 05:52 05:57 WBC RBC Hgb Hct MCV MCH MCHC RDW Plt Count MPV Absolute Nucleated RBC Nucleated RBC % (auto) Hold Purple Top SEE NOTE SEE NOTE PT INR Sodium Potassium Chloride Carbon Dioxide Anion Gap BUN Creatinine Estim Creat Clear Calc Estimated GFR Random Glucose Calcium Total Bilirubin 0.8 0.6 Direct Bilirubin 0.4 0.3 GGT 1810 H 1589 H AST 189 H 107 H ALT 371 H 281 H Alkaline Phosphatase 386 H 346 H Total Protein 6.8 6.7 Albumin 3.8 3.7 Lipase 20 Urine Color Urine Appearance Urine pH Ur Specific [place] Urine Protein Urine Glucose (UA) Urine Ketones Urine Blood Urine Nitrite Ur Leukocyte Esterase Urine RBC Urine WBC Ur Squamous Epith Cells Urine Bacteria Hyaline Casts Acetaminophen CMV Specimen Source CMV Qnt PCR IU/mL CMV Qnt PCR log IU/mL EBV Source EBV DNA (PCR) Hepatitis A IgM Ab Hep Bs Antigen Hep Bs Antibody Hep B Core Total Ab Hepatitis C Ab (EIA) 01/18/23 06:39 WBC RBC Hgb Hct MCV MCH MCHC RDW Plt Count MPV Absolute Nucleated RBC Nucleated RBC % (auto) Hold Purple Top SEE NOTE PT INR Sodium Potassium Chloride Carbon Dioxide Anion Gap BUN Creatinine Estim Creat Clear Calc Estimated GFR Random Glucose Calcium Total Bilirubin 0.6 Direct Bilirubin 0.3 GGT 1874 H AST 128 H ALT 272 H Alkaline Phosphatase 454 H Total Protein 6.9 Albumin 3.8 Lipase Urine Color Urine Appearance Urine pH Ur Specific [place] Urine Protein Urine Glucose (UA) Urine Ketones Urine Blood Urine Nitrite Ur Leukocyte Esterase Urine RBC Urine WBC Ur Squamous Epith Cells Urine Bacteria Hyaline Casts Acetaminophen CMV Specimen Source CMV Qnt PCR IU/mL CMV Qnt PCR log IU/mL EBV Source EBV DNA (PCR) Hepatitis A IgM Ab Hep Bs Antigen Hep Bs Antibody Hep B Core Total Ab Hepatitis C Ab (EIA) Airway Mallampati Class: II TM Dist: >3cm Neck ROM: Full Loose/Missing/Broken Teeth: No Heart: [id number] Lungs: cta b/l Assessment and Plan Assessment Anesthesia Assessment: Anesthesia Plan Discussed and Chart Reviewed Final Anesthetic Review Family History of Problems with Anesthesia: No History of Problems with Anesthesia: No NPO: Yes ASA Class: III Final Preanesthetic Review: No Changes in Pt Med Stat, Meds/Allgs Chart Reviewed, Consent Obtained/Reviewed and Anes Risks/Benef Reviewed Patient Risk: Intermediate Procedure Risk: Intermediate Assessment/Block/Sedation in SS: Assess/Block/Sedation-SS Anesthetic Plan Anesthetic Plan: GA and Agree w/ Assess. and Plan Disposition: Standard PACU
--- NOTE | 2023-01-18 17:07 | HO.PM.IMPN ---
Subjective Subjective Date of Service: 01/18/23 Interval History: elevated Lft's Review of Systems Patient has some mild abdominal discomfort in right upper quadrant area, denies any fever or chills or nausea vomiting. Physical Exam Vital Signs: Vital Signs: Last Vital Signs Temp 97.0 F 01/18/23 16:55 Pulse 91 01/18/23 17:02 Resp 18 01/18/23 17:02 BP 100/66 01/18/23 17:02 Pulse Ox 97 01/18/23 17:02 O2 Del Method Room Air 01/18/23 17:02 O2 Flow Rate 6 01/18/23 16:45 BMI result Body Mass Index 27.9 Gen: in no acute distress HEENT: sclera anicteric, moist mucus membranes Lungs: clear to auscultation bilaterally Heart: regular rate and rhythm, no murmurs Abd: soft, mild RUQ tenderness without rebound, non-distended Ext: no edema Skin: warm/well-perfused Neuro: alert and oriented x3, no focal findings Psych: appropriate affect Objective Data Active Medications Enoxaparin Sodium (Enoxaparin Sodium 40 Mg/0.4 Ml Syringe) 40 mg SUBCUT Q24H [facility] Last Admin: 01/16/23 15:31 Dose: Not Given Documented By: MARTITA Non-Admin Reason: Physician Held Med Levothyroxine Sodium (Levothyroxine Sodium 100 Mcg Tablet) 100 mcg PO DAILY@0600 [facility] Last Admin: 01/18/23 05:22 Dose: Not Given Documented By: NISHANT Non-Admin Reason: NPO Nortriptyline HCl (Nortriptyline Hcl 25 Mg Capsule) 100 mg PO BEDTIME [facility] Last Admin: 01/17/23 21:26 Dose: 100 mg Documented By: NISHANT Ondansetron HCl (Ondansetron Hcl 4 Mg/2 Ml Vial) 4 mg IVPUSH Q4H PRN PRN Reason: nausea/vomiting Last Admin: 01/15/23 15:56 Dose: 4 mg Documented By: MARTITA Polyethylene Glycol (Polyethylene Glycol 3350 17 Gm Powd.Pack) 17 gm PO DAILY [facility] Last Admin: 01/18/23 08:18 Dose: Not Given Documented By: BEENA Non-Admin Reason: NPO Quetiapine Fumarate (Quetiapine Fumarate 100 Mg Tablet) 100 mg PO BEDTIME PRN PRN Reason: Sleep Last Admin: 01/17/23 21:29 Dose: 100 mg Documented By: NISHANT Senna/Docusate Sodium (Sennosides/Docusate Sodium Tablet) 2 tab PO BID [facility] Last Admin: 01/18/23 08:18 Dose: Not Given Documented By: BEENA Non-Admin Reason: Patient Refused Sertraline HCl (Sertraline Hcl 50 Mg Tablet) 150 mg PO DAILY [facility] Last Admin: 01/18/23 08:18 Dose: Not Given Documented By: BEENA Non-Admin Reason: Patient Refused Sodium Chloride (0.9 % Sodium Chloride Flush 3 Ml Syringe) 3 ml IVFLUSH QSHIFT [facility] Last Admin: 01/18/23 08:14 Dose: 3 ml Documented By: BEENA Vitamin D (Cholecalciferol (Vitamin D3) 25 Mcg Tablet) 50 mcg PO DAILY [facility] Last Admin: 01/18/23 08:13 Dose: 50 mcg Documented By: BEENA Labs 01/15/23 05:54 01/15/23 05:54 Labs: Laboratory Results - last 24 hr 01/13/23 01/18/23 13:36 06:39 Hold Purple Top SEE NOTE Total Bilirubin 0.6 Direct Bilirubin 0.3 GGT 1874 H AST 128 H ALT 272 H Alkaline Phosphatase 454 H Total Protein 6.9 Albumin 3.8 EBV Source Whole Blood EBV DNA (PCR) DETECTED (Abnormal) Assessment and Plan (1) Sphincter of Oddi spasm: Status: Acute Plan day 6 57yo F with hypothyroidism, MNG, vit D def, hx cholecystectomy p/w 3-4d of RUQ pain/N/V, found to have elevated LFTs acute hepatitis, mixed hepatocellular/cholestatic - HBV/HCV serologies negative, MRCP showing only fatty liver disease. EBV/CMV PCR pending. 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 - pt was to be discharged home 01/15/23 with plans for outpt ERCP/sphincterotomy but had recurrence of severe pain with worsening LFTs, so plan for inpt ERCP/sphincterotomy with Dr Howard tomorrow; NPO after midnight and hold LMWH LFTs treding up-going for ercp today - ondansetron for nausea/vomiting, morphine/APAP for pain constipation - bowel regimen hypothyroidism - LT4 mood disorder - continue home meds VTE ppx - LMWH dispo - eventual home In my clinical judgment, the patient requires continued inpatient hospitalization for the following reasons: hepatitis, inpt ERCP, monitering for liver enzymes,gI follow up. Quality Stroke Does the patient have a stroke diagnosis?: No VTE Prior VTE?: No VTE Risk Level:: Medical - moderate - high VTE Device Contraindication: N/A - Device Ordered VTE Drug Contraindication: N/A - Med Ordered
[2023-01-18] MEDS: QUEtiapine Fumarate 100 MG TABLET PO (21:08)
[2023-01-18] MEDS: Sennosides/Docusate Sodium TABLET 2 TAB PO (21:08)
[2023-01-18] MEDS: Nortriptyline HCl 25 MG CAPSULE 100 MG PO (21:08)
[2023-01-19 03:08] VITALS: BP 104/59; PULSE 72; RESP 18; TEMP 36.9; O2SAT 97
[2023-01-19] MEDS: Levothyroxine Sodium 100 MCG TABLET PO (05:47)
[2023-01-19 07:03] VITALS: BP 98/58; PULSE 69; RESP 18; TEMP 36.6; O2SAT 97
[2023-01-19 08:26] LABS: Alanine Aminotransferase 227 U/L (0-31); Albumin Level 3.8 g/dL (3.5-5.0); Alkaline Phosphatase 397 U/L (39-117); Anion Gap 12 (12-20); Aspartate Amino Transferase 94 U/L (5-31); Bilirubin Total 0.6 mg/dL (0.0-1.0); Blood Urea Nitrogen 19 mg/dL (9-16); Calcium 9.3 mg/dL (8.4-10.2); Carbon Dioxide 27 mmol/L (22-29); Chloride 105 mmol/L (96-108); Creatinine Clr Calc Pharmacy 61.4; Estimated Glomerular Filt Rate > 60; Glucose Random 111 mg/dL (60-115); Sodium 140 mmol/L (135-145); Total Protein 6.9 g/dL (6.5-8.0)
[2023-01-19] MEDS: Cholecalciferol (Vitamin D3) 25 MCG TABLET 50 MCG PO (09:11)
[2023-01-19] MEDS: Omeprazole 20 MG CAPSULE.DR PO (09:11)
[2023-01-19] MEDS: 0.9 % Sodium Chloride Flush 3 ML SYRINGE IVFLUSH (09:12)
[2023-01-19] MEDS: polyethylene glycoL 3350 17 GM POWD.PACK PO (09:12)
[2023-01-19 10:08] LABS: Gamma Glutamyl Transpeptidase 1655 U/L (7-33)
[2023-01-19 11:21] VITALS: BP 135/80; PULSE 71; RESP 18; TEMP 36.3; O2SAT 98
--- NOTE | 2023-01-19 11:34 | P.DS_ITS ---
DS: Providers Provider Date of Service: 01/19/23 Date of admission: 01/13/23 14:09 Date of discharge: 01/19/23 Primary care physician: Giana Isbell MD Consults: 01/13/23 12:15 Consult to Gastroenterology Stat Consulting Provider: William Snow Reason for consultation: Upper ABD pain, elevated LFTs Has provider been notified: Yes 01/13/23 14:15 Consult to Gastroenterology Routine Consulting Provider: William Snow Reason for consultation: acute hepatitis, prior CCK Attending physician on discharge: Juni Parker Discharging clinician: Juni Parker DS: Diagnosis Discharge Diagnosis (1) Sphincter of Oddi spasm: Status: Acute DS: Summary Hospital Course Hospital Course: From the history and physical by the admitting hospitalist, Loy Perales MD, 01/13/23: The patient is a 57 year old female with a PMH of hypothyroidism, multinodular goiter, vit D deficiency, s/p CCK who presents to the ED with a 3 to 4 day history of upper abdominal pain with associated nause and vomting. The patient reports the pain is constant and progressive, crampy in nature. She endorses associated nausea without vomiting. She does endorse constipation. She denies any bleeding. No fevers or chills. No sick contacts. She reports a decreased appetite and an inability to tolerate even water. She denies any cardiopulmonary symptoms. She reports intermittent tylenol use (but none recently). She denies NSAID. No EtOH, tobacco or illicit substance use. In the ED, her work up including blood work and imaging studies revealed: elevated T. Bili 1.4, AST/ALT/Alk Phos - 550/420/363 respectively, lipase 30; CT abd/pelvis showing hepatic steatosis without other acute findings; Her case was d/w gastroenterology and now will be admitted for further work up. Of note -- the patient had a very similar presentation in July 2022. She was evaluated with MRCP which was negative. Her viral hepatitis serologies were negative at that time. Since then, her LFTs have improved dramatically and her most recently labs from November show normal bili with mild AST/ALT/ALP elevation (35/47/135, respectively). Hospital course: 57yo F with hypothyroidism, MNG, vit D def, and hx cholecystectomy who presented with 3-4d of RUQ pain/N/V and was found to have elevated LFTs in a mixed hepatocellular/cholestatic pattern. seen by GI -added hepatitis serologies and CMV/EBV PCR and MRCP showed only fatty liver disease, EBV(DNA) positive,hepatitis A,B,C serologies negative and also patient had ercp: suspected Sphincter of Oddi spasm and gastritis . LFTs improving , abdominal pain improved as well as [place] and vomiting . The patient will follow up with Dr nSow in 1-2 weeks and outpatient. moniter LFTs + GGT in 1 week. She was given bowel regimen for constipation and also avoid hepatotoxic medications . plan: follow up with Dr Snow in 1-2 weeks and outpatient. moniter LFTs + GGT in 1 week.avoid hepatotoxic medications . Follow-up outpatient with PCP. Above management discussed with the patient detail length she understand and in agreement with the plan, time spent 50 minute. Time Attestation Discharge coordination time: Greater than 30 minutes Quality: Safe Use of Opioids Does Pt have an Active Cancer Diagnosis on the Problem List?: No Quality: Stroke Does the patient have a stroke diagnosis?: No Physical Exam Vital Signs: Vital Signs: Last Vital Signs Temp 97.3 F 01/19/23 11:21 Pulse 71 01/19/23 11:21 Resp 18 01/19/23 11:21 BP 135/80 01/19/23 11:21 Pulse Ox 98 01/19/23 11:21 O2 Del Method Room Air 01/19/23 11:21 O2 Flow Rate 6 01/18/23 16:45 BMI result Body Mass Index 27.9 DS: Data Data Completed and Pending Labs on day of discharge: Laboratory Results - last 24 hr 01/13/23 01/19/23 13:36 06:54 Hold Purple Top SEE NOTE Sodium 140 Potassium 4.0 Chloride 105 Carbon Dioxide 27 Anion Gap 12 BUN 19 H Creatinine 0.85 Estim Creat Clear Calc 61.4 Estimated GFR > 60 Random Glucose 111 Calcium 9.3 Total Bilirubin 0.6 GGT 1655 H AST 94 H ALT 227 H Alkaline Phosphatase 397 H Total Protein 6.9 Albumin 3.8 EBV DNA (PCR) DETECTED (Abnormal) Discharge Plan Discharge Anticipated Discharge Date/Time: 01/15/23 10:45 Patient Disposition: Home, Self-Care Discharge Diagnosis: hepatocellular/cholestatic liver injury likely due to Sphincter of Oddi spasm constipation Referrals: Giana Isbell MD [Primary Care Provider] - 1 Week William Snow MD [Physician] - 2 Weeks Discharge Medications: New sennosides-docusate sodium [Senna Plus] 8.6-50 mg Tablet 2 tab PO BID Qty: 120 0RF polyethylene glycol 3350 17 gram Powder In Packet 17 g PO DAILY Qty: 30 0RF ondansetron 4 mg tablet,disintegrating 4 mg PO Q8H PRN (Reason: nausea and vomiting) Qty: 14 0RF oxycodone 5 mg tablet 5 mg PO Q8H PRN (Reason: severe pain (scale score 7-10)) Qty: 9 0RF Rx Instructions: Partial Fill upon patient request. Continued cholecalciferol (vitamin D3) 50 mcg (2,000 unit) Tablet 50 mcg PO DAILY docusate sodium 100 mg Capsule 100 mg PO DAILY PRN (Reason: Constipation) fluticasone propionate 50 mcg/actuation spray,suspension 1 - 2 spray intranasal DAILY PRN (Reason: Allergic Symptoms) quetiapine 100 mg tablet 100 mg PO BEDTIME PRN (Reason: Sleep) sumatriptan succinate 100 mg tablet 100 mg PO Q2-4H PRN (Reason: Headache) Rx Instructions: do not exceed 2 doses per 24 hrs nortriptyline 50 mg capsule 100 mg PO BEDTIME loratadine 10 mg tablet 10 mg PO DAILY PRN (Reason: allergies) sertraline 100 mg tablet 150 mg PO DAILY levothyroxine 50 mcg tablet 100 mcg PO DAILY famotidine 20 mg tablet 20 mg PO DAILY Qty: 30 3RF Discontinued acetaminophen [Tylenol] 325 mg Tablet 650 mg PO Q6H PRN (Reason: Pain) naproxen 250 mg Tablet 250 mg PO BID PRN (Reason: Pain) Discharge Orders: Discharge Order (Routine); Ordered 01/19/23 Ordered By: Juni Parker Diet: Advance to usual diet Activity on Discharge: As tolerated Stand Alone Forms: Patient Portal Discharge page Other Ambulatory Orders: Gamma Glutamyl Transpeptidase (Routine) Timeframe: 1 Week Facility: [facility] - Location: Laboratory Ordered By: Anjana Ortega Liver Panel (Routine) Timeframe: 1 Week Facility: [facility] - Location: Laboratory Ordered By: Anjana Ortega Care Plan Goals: diagnosis and management of hepatobiliary condition- Moniter Lft's and follow up with GI. avoid hepatotoxic medications. Health Concerns: hepatocellular/cholestatic liver injury likely due to Sphincter of Oddi spasm - repeat labs in 1 week [LFTs, GGT] - see Dr Snow from [facility] in 2 weeks; to arrange ERCP/sphinct erotomy - ondansetron for nausea/vomiting, oxycodone for severe pain - low-fat diet constipation - increase fiber and fluids, take Miralax and docusate/senna Plan of Treatment: as above Assessment: See Discharge Summary. Discharge Date/Time: 01/19/23 13:08
--- NOTE | 2023-01-19 11:46 | MHC.CM.PN ---
Patient has been medically cleared for dc to home today, no skilled services ordered; [facility] will transport home. CM met with Patient at bedside and addressed IMM with her, providing Patient with the original and a copy has been placed on the chart.
--- NOTE | 2023-01-19 12:17 | HO.POSTANES ---
Post Anesthesia Evaluation Post Anesthesia Evaluation Date of Service: 01/19/23 Vital Signs: Vital Signs Temp Pulse Resp BP Pulse Ox O2 Del Method 01/19/23 11:21 97.3 F 71 18 135/80 98 Room Air 01/19/23 07:03 97.8 F 69 18 98/58 L 97 Room Air 01/19/23 03:08 98.4 F 72 18 104/59 L 97 Room Air Anesthesia: General Endotracheal-GETA Mental Status: Awake Pain Control: Satisfactory Nausea/Vomiting: None Hydration: Adequate Anesthesia-Related Issues: No Anes. Related Issues
== END 2023-01-19 13:08 | disposition home or self-care (01) | DRG 446 ==
LOC: HO.ED 12:17 → HO.EDOVER 14:21 → HO.IMC 15:54
PROVIDERS: Family Medicine; Internal Medicine Gastroenterology; Admitting Provider Family Medicine; Emergency Provider Emergency Medicine Emergency Medical Services; PCP Internal Medicine; Visit Provider Internal Medicine
PROC: 0F798ZZ Dilation of Common Bile Duct, Via Natural or Artificial Opening Endoscopic (ICD-10-PCS; CPT 43260; principal; 2023-01-18 15:50)
DX: K83.4 Spasm of sphincter of Oddi (principal); K75.89 Other specified inflammatory liver diseases; K59.00 Constipation, unspecified; F39 Unspecified mood [affective] disorder; K76.0 Fatty (change of) liver, not elsewhere classified; E89.0 Postprocedural hypothyroidism; Z20.822 Contact with and (suspected) exposure to COVID-19; Z79.51 Long term (current) use of inhaled steroids; Z79.890 Hormone replacement therapy; Z79.899 Other long term (current) drug therapy
CPT/HCPCS: 36415; 74177; 74181; 80053; 80076; 80143; 81001; 82248; 82977; 83690; 85027; 85610; 86704; 86706; 86709; 86803; 87340; 87497; 87798; 99285; C1769; J1610; J1650; J2250; J2270; J2405; J2704; J3010; Q9967

== ENCOUNTER → 2023-01-13 14:09 | Outpatient (BNV) | payer OTHER, SELFPAY | PROVIDERS: Admitting Provider Family Medicine; Emergency Provider Emergency Medicine Emergency Medical Services; PCP Internal Medicine; Visit Provider Family Medicine | DX: K83.4 Spasm of sphincter of Oddi (principal) | CPT/HCPCS: 99222; 99231; 99232; 99239 ==

== ENCOUNTER → 2023-01-13 14:09 | Outpatient (BNV) | payer OTHER, SELFPAY | PROVIDERS: Admitting Provider Family Medicine; Emergency Provider Emergency Medicine Emergency Medical Services; PCP Internal Medicine; Visit Provider Internal Medicine Gastroenterology | DX: B17.9 Acute viral hepatitis, unspecified (principal); R10.9 Unspecified abdominal pain | CPT/HCPCS: 99222 ==

== ENCOUNTER → 2023-01-13 14:09 | Outpatient (BNV) | payer OTHER, SELFPAY | PROVIDERS: Admitting Provider Family Medicine; Emergency Provider Emergency Medicine Emergency Medical Services; PCP Internal Medicine; Visit Provider Internal Medicine Gastroenterology | DX: K29.70 Gastritis, unspecified, without bleeding (principal) | CPT/HCPCS: 43277 ==

== ENCOUNTER 2023-02-09 11:15 | Outpatient (AMB) | payer OTHER, SELFPAY ==
--- NOTE | 2023-02-09 11:19 | MHC.OFFVIS ---
Intake Vital Signs 02/09/23 11:22 Height 5 ft Weight 137 lb 9.095 oz BMI 26.9 BP 104/70 Blood Pressure Location Lt brachial Position Sitting Pulse 91 Pulse Source Pulse Oximeter Intake Visit Reasons: F/ Up NTMNG Intake Note: Patient present today for NTMNG follow up visit. 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 Name: [facility] medical staff Information Interpreted: non-clinical & clinical Accompanied by: Self / Same As Patient Allergies acetaminophen [Vicodin] Allergy (Unknown, Verified 02/09/23 11:26) unk Penicillins Adverse Reaction (Mild, Verified 02/09/23 11:26) HYPERTENSION hydrocodone [From VICODIN] Adverse Reaction (Unknown, Verified 02/09/23 11:26) HIGH BP Medication List - Last Reconciled 02/09/23 by Leonardo Padgett MD cholecalciferol (vitamin D3) 50 mcg PO DAILY docusate sodium 100 mg PO DAILY PRN famotidine 20 mg PO DAILY levothyroxine 100 mcg PO DAILY loratadine 10 mg PO DAILY PRN nortriptyline 100 mg PO BEDTIME ondansetron 4 mg PO Q8H PRN polyethylene glycol 3350 17 grams PO DAILY quetiapine 100 mg PO BEDTIME PRN sennosides-docusate sodium 8.6-50 mg (Senna Plus) 2 tabs PO BID sertraline 150 mg PO DAILY sumatriptan succinate 100 mg PO Q2-4H PRN HPI HPI Comments History of Present Illness Details 57 YO F with PMHx multinodular thyroid S/P R lobectomy many years ago who is seen in F/U for a thyroid nodule. She was previously followed by [facility] Ricketts. Patient last saw Dr. Robert on 06/30/2022 ?She had the R lobe of her thyroid removed due to a nodule over 25 years ago. She denies any cancer was present. She has a subcentimeter nodule within the L lobe of the thyroid that she has been followed for. ?She also had TGAB and TPO antibodies positive in October of 2017. ?She has been poorly compliant with F/U. 08/27/2021 she underwent FNA biopsy of her left lower pole 3.5 cm and left upper pole 1.5 cm thyroid nodules, both with benign cytology. Repeat thyroid US reveals no significant change. She does continue to complain of dysphagia. Last labs revealed hypothyroidism. Her levothyroxine was increased to 100 mcg PO daily at that time, but she has not yet repeated labs. ?Thyroid US: ?04/26/2022 Right Thyroid Lobe: Surgically absent. Left Thyroid Lobe: 3.7 x 1.5 x 1.7 cm, volume 4.8 mL. Previously 3.9 x 1.7 x 2.3 cm, volume 7.8 mL. Parenchyma: The gland echotexture is heterogeneous. Thyroid vascularity is increased. Isthmus: 0.7 cm in maximum AP dimension. Previously not measured. Estimated total number of nodules greater than or equal to 1 cm: 2. [employer] Supervisor nodules are described as follows: 1.? Location: Left superior. ?? ? Size: 1.4 x 0.9 x 1.0 cm, volume 0.6 mL. ?? ? Previously: 1.7 x 1.2 x 1.4 cm, volume 1.5 mL. ?? ? Nodule characteristics: ?? ? Composition: Solid (2). ?? ? Echogenicity: Hypoechoic (2). ?? ? Shape: As tall as wide (0). ?? ? Margins: Smooth (0). ?? ? Echogenic Foci: None (0).? ACR TI-RADS total points: 4 Previous: 3 ?? ? ACR TI-RADS category: 4 Previous: 3 ? Significant change in size (>/= 20% in 2 dimensions and minimal increase of 2 mm or 50% or greater increase in volume): No ?? ? Change in features: Yes ?? ? Change in ACR TI-RADS risk category: Yes 2.? Location: Left inferior. ?? ? Size: 1.6 x 1.1 x 1.6 cm, volume 1.5 mL. ?? ? Previously: 1.5 x 1.3 x 1.4 cm, volume 1.4 mL. ?? ? Nodule characteristics: ?? ? Composition: Mixed cystic and solid (1). ?? ? Echogenicity: Isoechoic (1). ?? ? Shape: Not taller than wide (0). ?? ? Margins: Smooth (0). ?? ? Echogenic Foci: Macrocalcifications (1).? ACR TI-RADS total points: 3 Previous: 4 ?? ? ACR TI-RADS category: 3 Previous: 4 ? Significant change in size (>/= 20% in 2 dimensions and minimal increase of 2 mm or 50% or greater increase in volume): No ?? ? Change in features: Yes ?? ? Change in ACR TI-RADS risk category: Yes 3.? Location: Isthmus. ?? ? Size: 0.6 x 0.7 x 0.7 cm, volume 0.2 mL. ?? ? Previously: Not seen on the previous study. ?? ? Nodule characteristics: ?? ? Composition: Solid (2). ?? ? Echogenicity: Isoechoic (1). ?? ? Shape: Not taller than wide (0). ?? ? Margins: Smooth (0). ?? ? Echogenic Foci: None (0).? ACR TI-RADS total points: 3 ?? ? ACR TI-RADS category: 3 NODES: No lymphadenopathy is seen in the tissue surrounding the thyroid gland. ?Labs: Laboratory Tests 04/05/22 04/05/22 14:23 14:23 TSH 4.89 H Free T4 1.03 she was considering completion thyroidectomy as was recommended by Dr. Robert which is scheduled on 02/28/2023 PCP reduced levothyroxine since 08/2021 to 50 ug . Complains of weight loss unintentional PFSH Medical History Vitamin D deficiency Multinodular thyroid Hypothyroidism Surgical History History of carpal tunnel surgery of left wrist Tubal ligation status Hx of foot surgery Hx of epicondylectomy Hx of cholecystectomy Hx of thyroidectomy Hx of appendectomy Family History Father No problems noted. 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 Left lobe was out the presence of any palpable nodules Assessment & Plan Assessment & Plan (1) Multinodular thyroid: Code(s): E04.2 - Nontoxic multinodular goiter Plan: This is a 57-year-old female with a history of multinodular goiter status post right lobectomy with hypothyroidism. She also has left-sided thyroid nodule with 08/27/2021 she underwent FNA biopsy of her left lower pole 3.5 cm and left upper pole 1.5 cm thyroid nodules, both with benign cytology. She is scheduled for completion thyroidectomy. She appears to be clinically biochemically euthyroid. Plan is to proceed with completion thyroidectomy. Patient will follow-up afterwards. Told patient to follow-up with primary care provider regarding weight loss Coding Level of Care Code Est Pt Level 3 (81567) Diagnoses Multinodular thyroid E04.2
[2023-02-09 11:22] VITALS: BP 104/70; PULSE 91; BMI 26.9
== END 2023-02-09 11:47 | disposition home or self-care (01) ==
PROVIDERS: PCP Internal Medicine; Visit Provider Internal Medicine Endocrinology, Diabetes & Metabolism
DX: E04.2 Nontoxic multinodular goiter (principal)
CPT/HCPCS: 99213

== ENCOUNTER → 2023-02-09 11:15 | Outpatient (BNVA) | payer OTHER, SELFPAY | PROVIDERS: Visit Provider Internal Medicine Endocrinology, Diabetes & Metabolism | DX: E04.2 Nontoxic multinodular goiter (principal) | CPT/HCPCS: 99212 ==

== ENCOUNTER 2023-02-17 11:50 | Outpatient (REF) | payer OTHER, SELFPAY ==
[2023-02-17 12:59] LABS: MANUAL DIFF FLAG NO
[2023-02-17 13:13] LABS: Basophils Absolute Auto 0.1 X10*3/uL (0.0-0.2); Basophils Percent Auto 0.8 % (0-2); Eosinophils Absolute Auto 0.1 X10*3/uL (0.0-0.4); Eosinophils Percent Auto 2.1 % (0-4); Hemoglobin 14.5 g/dl (12.0-16.0); Imm Gran Abs Auto 0.07 X10*3/uL (0.00-0.03); Imm Gran Pct Auto 1.1 % (0.0-0.4); Lymphocytes Absolute Auto 1.7 X10*3/uL (1.2-4.9); Lymphocytes Percent Auto 27.7 % (20-40); Mean Corpuscular Hemoglobin 30.4 pg (27.0-33.0); Mean Corpuscular Volume 92.2 fL (80.0-98.0); Mean Platelet Volume 9.6 fL (9.4-12.3); Monocytes Absolute Auto 0.6 X10*3/uL (0.1-1.2); Neutrophils Absolute Auto 3.7 x10*3/uL (2.0-8.3); Neutrophils Percent Auto 59.3 % (45-73); Platelet Count 212 X10*3/uL (160-400); Red Blood Count 4.77 X10*6/uL (4.20-5.50); Red Cell Distribution Width 13.5 % (11.0-16.0); White Blood Count 6.2 X10*3/uL (4.8-10.8)
[2023-02-17 13:17] LABS: Amylase 51 U/L (28-100)
[2023-02-17 13:26] LABS: Alanine Aminotransferase 28 U/L (0-31); Albumin Level 3.9 g/dL (3.5-5.0); Alkaline Phosphatase 154 U/L (39-117); Aspartate Amino Transferase 21 U/L (5-31); Bilirubin Direct 0.1 mg/dL (0.0-0.5); Bilirubin Total 0.3 mg/dL (0.0-1.0); Gamma Glutamyl Transpeptidase 190 U/L (7-33); Lipase 18 U/L (8-78); Total Protein 6.9 g/dL (6.5-8.0)
== END 2023-02-17 11:51 | disposition home or self-care (01) ==
LOC: HO.HHCL 11:50
PROVIDERS: Referring Provider Family Medicine; Visit Provider Internal Medicine
DX: R74.01 Elevation of levels of liver transaminase levels (principal); R74.8 Abnormal levels of other serum enzymes; R10.12 Left upper quadrant pain
CPT/HCPCS: 36415; 80076; 82150; 82977; 83690; 85025

== ENCOUNTER 2023-02-23 15:05 | Outpatient (REF) | payer OTHER, SELFPAY ==
--- NOTE | ~2023-02-23 | XR_ITS ---
EXAMINATION: XR ABDOMEN KUB CLINICAL INDICATION: Left upper quadrant abdominal pain COMPARISON: None available. TECHNIQUE: Supine views of the abdomen. FINDINGS: The bowel gas pattern is normal with no evidence of ileus or obstruction. There is a large amount of stool within the ascending, transverse and descending colon suggestive of constipation. Several calcifications in the pelvis likely represent phleboliths.. The bones are unremarkable. Surgical clips in the right upper quadrant are consistent with prior cholecystectomy. XR/XR KUB IMPRESSION: 1. No evidence of obstruction. 2. Findings suggestive of constipation.
== END 2023-02-23 15:06 | disposition home or self-care (01) ==
LOC: HO.XRAY 15:05
PROVIDERS: PCP Internal Medicine; Visit Provider Internal Medicine
DX: R10.12 Left upper quadrant pain (principal)
CPT/HCPCS: 74018

== ENCOUNTER 2023-03-21 09:07 | Outpatient (REF) | payer OTHER, SELFPAY ==
--- NOTE | ~2023-03-21 | US_ITS ---
EXAMINATION: US ABDOMEN COMPLETE CLINICAL INFORMATION: Elevated alkaline level. COMPARISON: X-ray abdomen KUB 02/23/2023. MR abdomen without contrast 01/14/2023. CT abdomen and pelvis 01/13/2023. Ultrasound abdomen limited 07/17/2022. Ultrasound abdomen complete 08/04/2021. TECHNIQUE: Real-time imaging of the abdominal viscera. Limited visualization due to bowel gas. FINDINGS: PANCREAS: Limited visualization of pancreatic tail and head. Imaged portion of pancreatic body is unremarkable. ABDOMINAL AORTA: Limited visualization. INFERIOR VENA CAVA: Visualized portions are normal. LIVER: Hepatomegaly, 17.0 cm. Increased hepatic parenchymal heterogeneity and echogenicity could be associated with hepatocellular disease/hepatic steatosis and substantially limits visualization. Correlation with liver function tests and clinical exam recommended to determine further management. GALLBLADDER: Surgically absent. COMMON BILE DUCT: Normal in caliber measuring 0.9 cm in diameter. RIGHT KIDNEY: Limited visualization. No renal calculi. Mildly dilated right renal pelvis versus extrarenal pelvis redemonstrated. The kidney measures 9.6 cm in maximum dimension. LEFT KIDNEY: Left lower pole 1.0 cm cyst redemonstrated. There is no indication for follow-up imaging. No hydronephrosis or renal calculi. The kidney measures 9.2 cm in maximum dimension. SPLEEN: Normal. The spleen measures 10.3 cm in maximum dimension. FREE FLUID: None. US/US abdomen complete IMPRESSION: 1. Hepatomegaly, 17.0 cm. Increased hepatic parenchymal heterogeneity and echogenicity could be associated with hepatocellular disease/hepatic steatosis and substantially limits visualization. Correlation with liver function tests and clinical exam recommended to determine further management. 2. Gallbladder surgically absent. 3. Mildly dilated right renal pelvis versus extrarenal pelvis redemonstrated. No renal calculi.
== END 2023-03-21 09:08 | disposition home or self-care (01) ==
LOC: HO.US 09:07
PROVIDERS: PCP Internal Medicine; Visit Provider Internal Medicine
DX: R74.8 Abnormal levels of other serum enzymes (principal)
CPT/HCPCS: 76700

== ENCOUNTER 2023-04-25 04:23 | Emergency (ER) | payer OTHER, SELFPAY ==
--- NOTE | ~2023-04-25 | XR_ITS ---
EXAMINATION: XR CHEST CLINICAL INFORMATION: Pain. COMPARISON: 07/17/2022. TECHNIQUE: Frontal view of the chest was obtained. FINDINGS: The lung volumes are low. The cardiomediastinal silhouette is within normal limits for level of inspiration. There is lower lung field increased markings. There is no focal lung consolidation or pleural effusion. The bony structures and soft tissues are unremarkable. XR/XR chest 1V IMPRESSION: Low lung volumes. No focal lung consolidation. Lower lung field increased markings likely represent bronchovascular crowding secondary to low lung volumes.
[2023-04-25 04:26] VITALS: RESP 16; TEMP 36.6; O2SAT 94; BMI 27.1
--- NOTE | 2023-04-25 04:26 | ECG_ITS ---
Test Reason : CP Blood Pressure : / mmHG Vent. Rate : 077 BPM Atrial Rate : 077 BPM P-R Int : 128 ms QRS Dur : 082 ms QT Int : 384 ms P-R-T Axes : 009 028 036 degrees QTc Int : 434 ms Normal sinus rhythm Nonspecific ST and T wave abnormality Borderline ECG When compared with ECG of 17-JUL-2022 12:48, No significant change was found Referred By: Generic ED Physician Electronically Signed By:SATINDER NEWSOME
[2023-04-25 04:39] LABS: Basophils Percent Auto 0.5 % (0-2); Eosinophils Absolute Auto 0.2 X10*3/uL (0.0-0.4); Eosinophils Percent Auto 1.9 % (0-4); Hematocrit 41.9 % (37.0-47.0); Hemoglobin 14.4 g/dl (12.0-16.0); Imm Gran Abs Auto 0.05 X10*3/uL (0.00-0.03); Imm Gran Pct Auto 0.6 % (0.0-0.4); Lymphocytes Absolute Auto 2.3 X10*3/uL (1.2-4.9); Lymphocytes Percent Auto 27.4 % (20-40); MANUAL DIFF FLAG NO; Mean Corpuscular HGB Conc 34.4 g/dl (31.0-35.0); Mean Corpuscular Hemoglobin 30.8 pg (27.0-33.0); Mean Corpuscular Volume 89.7 fL (80.0-98.0); Mean Platelet Volume 9.1 fL (9.4-12.3); Monocytes Absolute Auto 0.6 X10*3/uL (0.1-1.2); Monocytes Percent Auto 7.4 % (2-11); Neutrophils Absolute Auto 5.2 x10*3/uL (2.0-8.3); Neutrophils Percent Auto 62.2 % (45-73); Platelet Count 213 X10*3/uL (160-400); Red Blood Count 4.67 X10*6/uL (4.20-5.50); Red Cell Distribution Width 13.6 % (11.0-16.0); White Blood Count 8.4 X10*3/uL (4.8-10.8)
--- NOTE | 2023-04-25 04:50 | ED_ITS ---
HPI - Chest Pain General Chief Complaint: Chest Pain Stated Complaint: chest pain Time Seen by Provider: 04/25/23 04:44 Source: patient Mode of arrival: ambulatory Limitations: no limitations History of Present Illness HPI narrative: Emergency room complaining of left-sided chest pain that started approximately 2 hours ago. Patient states that if she moves certain ways or if she touches the left side of her chest with pressure it hurts. Denies shortness of breath, no nausea vomiting diarrhea. Patient states that she has chronic abdominal discomfort, patient states that she is known to have elevated liver enzymes and also hepatomegaly. Patient sees a insurance special agent. Related Data Home Medications Medication Instructions Recorded Confirmed loratadine 10 mg tablet 10 mg PO DAILY PRN allergies 12/20/19 01/13/23 nortriptyline 50 mg capsule 100 mg PO BEDTIME 12/20/19 01/13/23 quetiapine 100 mg tablet 100 mg PO BEDTIME PRN Sleep 12/20/19 01/13/23 sumatriptan succinate 100 mg tablet 100 mg PO Q2-4H PRN Headache 12/20/19 01/13/23 sertraline 100 mg tablet 150 mg PO DAILY 10/06/20 01/13/23 levothyroxine 50 mcg tablet 100 mcg PO DAILY 06/30/22 01/13/23 cholecalciferol (vitamin D3) 50 50 mcg PO DAILY 07/17/22 01/13/23 mcg (2,000 unit) tablet docusate sodium 100 mg capsule 100 mg PO DAILY PRN Constipation 07/17/22 01/13/23 Previous Rx's Medication Instructions Recorded famotidine 20 mg tablet 20 mg PO DAILY #30 tabs 09/27/22 ondansetron 4 mg disintegrating 4 mg PO Q8H PRN nausea and 01/15/23 tablet vomiting #14 tabs polyethylene glycol 3350 17 gram 17 g PO DAILY #30 ea 01/15/23 oral powder packet sennosides 8.6 mg-docusate sodium 2 tab PO BID #120 tabs 01/15/23 50 mg tablet (Senna Plus) tramadol 50 mg tablet 50 mg PO BID PRN pain #6 tabs 04/25/23 Allergies Allergy/AdvReac Type Severity Reaction Status Date / Time acetaminophen [Vicodin] Allergy Unknown unk Verified 04/25/23 04:37 Penicillins AdvReac Mild HYPERTENSIO Verified 04/25/23 04:37 N hydrocodone [From VICODIN] AdvReac Unknown HIGH BP Verified 04/25/23 04:37 Review of Systems 2 Review of Systems: Constitutional : No Weight loss, No Fever, No Chills, No Night Sweats, No Fatigue, No Malaise ENT/Mouth : No Hearing loss, No Ear Pain, No Nasal Congestion, No Sinus Pain, No Hoarseness, No sore throat, No Rhinorrhea, No Swallowing Difficulty Eyes: No Eye Pain, No Swelling, No Redness, No Foreign Body, No Discharge, No Vision Changes Cardiovascular : Complaining of 2 hours of chest pain, No SOB, No Dyspnea on Exertion, No Orthopnea, No Edema, No Palpitations Respiratory : No Cough, No Sputum, No Wheezing, No Smoke Exposure, No Dyspnea Gastrointestinal : No Nausea, No Vomiting, No Diarrhea, No Constipation, No abdominal Pain, No Hematochezia, No Melena Genitourinary : no irregular bleeding, No Dysuria, No Urinary Frequency, No Hematuria, No Urinary Incontinence, No Urgency, No Flank Pain, No Urinary Flow Changes, No Hesitancy Musculoskeletal : No joint pain, No Myalgias, No Joint Swelling Skin : No Skin Lesions, No rash Neuro : No Weakness, No Numbness, No Paresthesias, No Loss of Consciousness, No Dizziness, No Headache Psych : No Anxiety/Panic, No Depression, No SI/HI/AH/VH, No Social Issues, Heme/Lymph: No Bruising, No Bleeding,No Lymphadenopathy Endocrine : No Polyuria, No Polydipsia, No Temperature Intolerance [facility] Past Medical History Medical History Vitamin D deficiency Multinodular thyroid Hypothyroidism Surgical History History of carpal tunnel surgery of left wrist Tubal ligation status Hx of foot surgery Hx of epicondylectomy Hx of cholecystectomy Hx of thyroidectomy Hx of appendectomy Family History Family History Father No problems noted. 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 Oriented X3. No acute distress. Eyes: Pupils equal, round and reactive to light. ENT: Pharynx normal. Neck: Normal inspection. Neck supple. No lymph nodes noted. No crepitus CVS: Normal heart rate and rhythm. Pulses normal. Normal S1 and S2 reproducible pain to palpation. Patient very tender with mild palpation over the left side of the chest. Respiratory: No respiratory distress. Breath sounds normal. No Wheezing. No rales Abdomen: Soft and nontender. No rigidity. No distention. Skin: Skin warm and dry. Normal skin color. Normal skin turgor. Extremities: No lower extremity edema. No Lacerations. No Rash Neuro: Oriented X 3. No motor deficit. No sensory deficit. Moving all extremities. No slurred speech. CN 2 through 12 grossly intact Psych: calm, cooperative, normal affect Course Course Course Narrative: -when the patient's labs and imaging and chest x-ray pending. -given patient's physical exam, patient likely has musculoskeletal pain Medical Decision Making Medical Decision Making [facility] Narrative: -my interpretation of EKG: Sinus rhythm, heart rate 77, no ST segment depression or elevation, no T-wave inversion, QTC 434 -troponin x2 negative Differential Diagnosis Differential Diagnoses: The differential diagnosis associated with the presentation includes (ACS, musculoskeletal chest pain, anxiety) Admission/Observation Consideration of admission/observation: Escalation of care including admission/observation considered (Given patient's symptoms, Ericson considered) Lab Data [facility] Lab Attestation statement: I reviewed the patient's lab results. 04/25/23 04:35 04/25/23 04:35 Labs: Lab Results 04/25/23 04/25/23 Range/Units 04:35 05:52 WBC 8.4 (4.8-10.8) X10*3/uL RBC 4.67 (4.20-5.50) X10*6/uL Hgb 14.4 (12.0-16.0) g/dl Hct 41.9 (37.0-47.0) % MCV 89.7 (80.0-98.0) fL MCH 30.8 (27.0-33.0) pg MCHC 34.4 (31.0-35.0) g/dl RDW 13.6 (11.0-16.0) % Plt Count 213 (160-400) X10*3/uL MPV 9.1 L (9.4-12.3) fL Immature Gran % (Auto) 0.6 H (0.0-0.4) % Neut % (Auto) 62.2 (45-73) % Lymph % (Auto) 27.4 (20-40) % Mcpherson % (Auto) 7.4 (2-11) % Eos % (Auto) 1.9 (0-4) % Baso % (Auto) 0.5 (0-2) % Lymph # (Auto) 2.3 (1.2-4.9) X10*3/uL Mcpherson # (Auto) 0.6 (0.1-1.2) X10*3/uL Eos # (Auto) 0.2 (0.0-0.4) X10*3/uL Baso # (Auto) 0.0 (0.0-0.2) X10*3/uL Abs Immat Gran (auto) 0.05 H (0.00-0.03) X10*3/uL Absolute Neuts (auto) 5.2 (2.0-8.3) x10*3/uL Absolute Nucleated RBC 0.000 (0.0-0.012) X10*3/uL Nucleated RBC % (auto) 0.0 (0.0-0.2) /100WBC Sodium 141 (135-145) mmol/L Potassium 3.7 (3.3-5.1) mmol/L Chloride 108 (96-108) mmol/L Carbon Dioxide 24 (22-29) mmol/L Anion Gap 13 (12-20) BUN 16 (9-16) mg/dL Creatinine 1.00 (0.5-1.4) mg/dL Estim Creat Clear Calc 57.9 Estimated GFR 57 Random Glucose 128 H (60-115) mg/dL Calcium 8.7 D (8.4-10.2) mg/dL Total Bilirubin 0.2 (0.0-1.0) mg/dL Direct Bilirubin < 0.2 (0.0-0.5) mg/dL AST 23 (5-31) U/L ALT 27 (0-31) U/L Alkaline Phosphatase 156 H (39-117) U/L Troponin I High Sens < 2.7 < 2.7 (<3.5-17.0) ng/L Total Protein 7.4 (6.5-8.0) g/dL Albumin 4.2 (3.5-5.0) g/dL Lipase 32 (8-78) U/L Independent Interpretation I performed an independent interpretation of an: EKG and Plain X-Ray (My interpretation of chest x-ray: No infiltrates, no fracture rib) Radiology Impression Discussion of test interpretation with radiology: I have reviewed the radiologist's reading. Radiologist Impression: The lung volumes are low. The cardiomediastinal silhouette is within normal limits for level of inspiration. There is lower lung field increased markings. There is no focal lung consolidation or pleural effusion. The bony structures and soft tissues are unremarkable. XR/XR chest 1V IMPRESSION: Low lung volumes. No focal lung consolidation. Lower lung field increased markings likely represent bronchovascular crowding secondary to low lung volumes. Critical Care Time Critical Care Time Critical Care Time: Yes Total Critical Care Time: 30 Attestation: I have personally provided critical care time. Time includes review of lab data, radiology results, discussion with consultants, and monitoring for potential decompensation. Intervention performed as documented. Discharge Plan Discharge Clinical Impression: Atypical chest pain Patient Disposition: Home, Self-Care Instructions: Chest Pain (ED), Chest Wall Pain (ED) Additional Instructions: Please follow-up with your primary care physician tomorrow. If you have any worsening or new symptoms, please return to the emergency room or call 911 Prescriptions: New tramadol 50 mg tablet 50 mg PO BID PRN (Reason: pain) Qty: 6 0RF No Action cholecalciferol (vitamin D3) 50 mcg (2,000 unit) Tablet 50 mcg PO DAILY docusate sodium 100 mg Capsule 100 mg PO DAILY PRN (Reason: Constipation) sennosides-docusate sodium [Senna Plus] 8.6-50 mg Tablet 2 tab PO BID Qty: 120 0RF polyethylene glycol 3350 17 gram Powder In Packet 17 g PO DAILY Qty: 30 0RF ondansetron 4 mg tablet,disintegrating 4 mg PO Q8H PRN (Reason: nausea and vomiting) Qty: 14 0RF quetiapine 100 mg tablet 100 mg PO BEDTIME PRN (Reason: Sleep) sumatriptan succinate 100 mg tablet 100 mg PO Q2-4H PRN (Reason: Headache) Rx Instructions: do not exceed 2 doses per 24 hrs nortriptyline 50 mg capsule 100 mg PO BEDTIME loratadine 10 mg tablet 10 mg PO DAILY PRN (Reason: allergies) sertraline 100 mg tablet 150 mg PO DAILY levothyroxine 50 mcg tablet 100 mcg PO DAILY famotidine 20 mg tablet 20 mg PO DAILY Qty: 30 3RF
[2023-04-25 05:02] LABS: Alanine Aminotransferase 27 U/L (0-31); Albumin Level 4.2 g/dL (3.5-5.0); Alkaline Phosphatase 156 U/L (39-117); Anion Gap 13 (12-20); Aspartate Amino Transferase 23 U/L (5-31); Bilirubin Direct < 0.2 mg/dL (0.0-0.5); Bilirubin Total 0.2 mg/dL (0.0-1.0); Blood Urea Nitrogen 16 mg/dL (9-16); Calcium 8.7 mg/dL (8.4-10.2); Carbon Dioxide 24 mmol/L (22-29); Chloride 108 mmol/L (96-108); Creatinine Clr Calc Pharmacy 57.9; Estimated Glomerular Filt Rate 57; Glucose Random 128 mg/dL (60-115); Lipase 32 U/L (8-78); Potassium 3.7 mmol/L (3.3-5.1); Sodium 141 mmol/L (135-145); Total Protein 7.4 g/dL (6.5-8.0)
[2023-04-25 05:08] LABS: Troponin-I High Sensitivity < 2.7 ng/L (<3.5-17.0)
[2023-04-25 05:53] VITALS: BP 145/81; PULSE 76; RESP 20; TEMP 36.7; O2SAT 98
--- NOTE | 2023-04-25 05:53 | MHC.EDTECH ---
Labs obtained and sent to lab,hourly rounds and vitals completed. Patient ambulated to the bathroom with a steady gait.
[2023-04-25 06:23] LABS: Troponin-I High Sensitivity < 2.7 ng/L (<3.5-17.0)
[2023-04-25 06:55] VITALS: BP 140/87; PULSE 71; RESP 15; TEMP 36.6; O2SAT 96
== END 2023-04-25 07:12 | disposition home or self-care (01) ==
PROVIDERS: Emergency Provider Emergency Medicine; PCP Internal Medicine
DX: R07.89 Other chest pain (principal)
CPT/HCPCS: 36415; 71045; 80048; 80076; 83690; 84484; 85025; 93005; 99284

== ENCOUNTER → 2023-04-25 04:26 | Outpatient (BNV) | payer OTHER, SELFPAY | PROVIDERS: Emergency Provider Emergency Medicine; PCP Internal Medicine; Visit Provider Internal Medicine | DX: R07.9 Chest pain, unspecified (principal) | CPT/HCPCS: 93010 ==

== ENCOUNTER 2023-05-05 10:35 | Outpatient (REF) | payer OTHER, SELFPAY ==
[2023-05-05 15:34] LABS: TSH reflex Free T4 57.71 uIU/mL (0.32-4.0)
[2023-05-05 16:15] LABS: Free T4 (Free Thyroxine) 0.47 ng/dL (0.71-1.85)
== END 2023-05-05 10:36 | disposition home or self-care (01) ==
LOC: HO.CHCLDS 10:35
PROVIDERS: Visit Provider Internal Medicine
DX: R53.83 Other fatigue (principal)
CPT/HCPCS: 36415; 84439; 84443

== ENCOUNTER 2023-05-12 11:33 | Outpatient (AMB) | payer OTHER, SELFPAY ==
--- NOTE | 2023-05-12 11:36 | A.OFFVIS_ITS ---
Intake Vital Signs 05/12/23 11:38 Height 5 ft 3 in Weight 147 lb 11.355 oz BMI 26.2 BP 134/80 Blood Pressure Location Lt brachial Position Sitting Pulse 86 Intake Visit Reasons: colo results Intake Note: Tory presents in the office as a follow up colonoscopy. CC: here for results - gets pains in her stomach. Constipation at times. Allergies acetaminophen [Vicodin] Allergy (Unknown, Verified 05/12/23 11:39) unk Penicillins Adverse Reaction (Mild, Verified 05/12/23 11:39) HYPERTENSION hydrocodone [From VICODIN] Adverse Reaction (Unknown, Verified 05/12/23 11:39) HIGH BP Medication List - Last Reconciled 05/12/23 by Anna Zamudio PA-C capsaicin 0.025% 1 appl topical BID cholecalciferol (vitamin D3) (Vitamin D3) 50 mcg PO DAILY docusate sodium 100 mg PO DAILY PRN famotidine 20 mg PO DAILY fluticasone propionate 50 mcg/actuation sprays intranasal levothyroxine 100 mcg PO DAILY loratadine 10 mg PO DAILY PRN nortriptyline 100 mg PO BEDTIME ondansetron 4 mg PO Q8H PRN polyethylene glycol 3350 17 grams PO DAILY quetiapine 100 mg PO BEDTIME PRN sertraline 150 mg PO DAILY sumatriptan succinate 100 mg PO Q2-4H PRN tramadol 50 mg PO BID PRN venlafaxine 37.5 mg PO BID HPI HPI Comments History of Present Illness Details A57 y/o female= does not know why she is here - 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 Dayron holman for thyroid- ERCP 01/2023- [place] FINDINGS: 1. Suspected sphincter of Oddi dysfuncti on 2. gastritis RECOMMENDATIONS: 1. NPO except ice chips for next 4-6 hrs then clears as tolerated, can advance diet tomorrow if feels well 2. Trend LFT, might transiently go up be fore trending down. [facility] Medical History (Updated 05/16/23 @ 12:46 by Anna Zamudio PA-C) Vitamin D deficiency Multinodular thyroid Hypothyroidism Surgical History (Updated 05/12/23 @ 11:40 by ORLANDO Gaitan) Hx of colonoscopy History of esophagogastroduodenoscopy (EGD) History of carpal tunnel surgery of left wrist Tubal ligation status Hx of foot surgery Hx of epicondylectomy Hx of cholecystectomy Hx of thyroidectomy Hx of appendectomy Family History Father No problems noted. 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) Alcohol intake: never Patient Tobacco Use Status: Never used Tobacco service: No Current occupational status: unemployed Female Reproductive History Menstrual Age of Menarche: 10 Review of Systems Const All systems reviewed & are unremarkable except as noted in HPI and below Card Denies chest pain and Denies dyspnea Resp Denies dyspnea GI Reports abdominal pain (Postprandial intermittent) and Reports nausea Physical Exam Vital Signs: Last Vital Signs Pulse 86 05/12/23 11:38 BP 134/80 05/12/23 11:38 BMI result Body Mass Index 26.2 Const General: cooperative Orientation/consciousness: patient oriented x3 Limitations: language barrier Eyes Sclerae: sclerae normal Resp Effort & Inspection: normal respiratory effort and able to speak in complete sentences Auscultation: clear to auscultation bilaterally Cardio Rate: regular rate Rhythm: regular rhythm Heart sounds: S1 normal heart sound present and S2 normal heart sound present GI Palpation (GI): Soft to palpation and nontender Auscultation: normal bowel sounds Skin General skin exam: no rashes or lesions noted Neuro General: patient oriented x3 Extrem General: Yes full ROM Psych Mental Status: mental status grossly normal Speech and movement: Clear speech present Affect: Labile affect present Attitude: cooperative Thought process: Normal thought process present Thought content: Normal thought content present Assessment & Plan Assessment & Plan (1) Sphincter of Oddi dysfunction: Comment: Most likely cause SOD-symptoms vague Code(s): K83.4 - Spasm of sphincter of Oddi Plan: Review plan of care Medications: New pantoprazole 20 mg PO QAM PRN 30 tabs 6RF acid reflux 30 days Patient Instructions: Reviewed procedure report, pathology recommendation She agrees symptoms somewhat vague she will monitor She will keep food diary Avoid etoh, spicy food, eat small prtions , more frequently-lowfat diet- high fiber - good wt/chol control Agrees to notify us with any worsening sx - ED-if concerning Encouraged to call with any questions or concerns Coding Level of Care Code Est Pt Level 3 (34591) Diagnoses Sphincter of Oddi dysfunction K83.4 Time Spent (min) 30 Comment # [id number] disconnected after 2 min #[id number]
[2023-05-12 11:38] VITALS: BP 134/80; PULSE 86; BMI 26.2
== END 2023-05-12 13:23 | disposition home or self-care (01) ==
PROVIDERS: PCP Internal Medicine; Visit Provider Physician Assistant
DX: K83.4 Spasm of sphincter of Oddi (principal)
CPT/HCPCS: 99213

== ENCOUNTER → 2023-05-12 11:33 | Outpatient (BNVA) | payer OTHER, SELFPAY | PROVIDERS: PCP Internal Medicine; Visit Provider Physician Assistant | DX: K83.4 Spasm of sphincter of Oddi (principal) | CPT/HCPCS: 99212 ==

== ENCOUNTER 2023-06-07 10:54 | Outpatient (AMB) | payer OTHER, SELFPAY ==
--- NOTE | 2023-06-07 11:28 | MHC.OFFVIS ---
Vital Signs 06/07/23 11:30 Height 5 ft 3 in Weight 148 lb 2.41 oz BMI 26.2 BP 130/84 Blood Pressure Location Lt brachial Position Sitting Pulse 82 Pulse Source Pulse Oximeter Intake Visit Reasons: f/u post-surgical hypothyroidism Intake Note: Patient presents today for post-surgical hypothyroidism follow up. Group Insurance Specialist Required: Yes Group Insurance Specialist Language: Belgian Information Interpreted: non-clinical & clinical Accompanied by: Self / Same As Patient Allergies acetaminophen [Vicodin] Allergy (Unknown, Verified 06/07/23 11:31) unk Penicillins Adverse Reaction (Mild, Verified 06/07/23 11:31) HYPERTENSION hydrocodone [From VICODIN] Adverse Reaction (Unknown, Verified 06/07/23 11:31) HIGH BP Medication List - Last Reconciled 06/07/23 by Leonardo Padgett MD capsaicin 0.025% 1 appl topical BID cholecalciferol (vitamin D3) (Vitamin D3) 50 mcg PO DAILY docusate sodium 100 mg PO DAILY PRN famotidine 20 mg PO DAILY fluticasone propionate 50 mcg/actuation sprays intranasal levothyroxine 100 mcg PO DAILY loratadine 10 mg PO DAILY PRN nortriptyline 100 mg PO BEDTIME ondansetron 4 mg PO Q8H PRN pantoprazole 20 mg PO QAM PRN 30 days polyethylene glycol 3350 17 grams PO DAILY quetiapine 100 mg PO BEDTIME PRN sertraline 150 mg PO DAILY sumatriptan succinate 100 mg PO Q2-4H PRN tramadol 50 mg PO BID PRN venlafaxine 37.5 mg PO BID HPI Comments Details: 57 YO F with PMHx multinodular thyroid S/P R lobectomy many years ago who is seen in F/U for a thyroid nodule. She was previously followed by Ros Ricketts. ?She had the R lobe of her thyroid removed due to a nodule over 25 years ago. She denies any cancer was present. She has a subcentimeter nodule within the L lobe of the thyroid that she has been followed for. ?She also had TGAB and TPO antibodies positive in October of 2017. ?She has been poorly compliant with F/U. 08/27/2021 she underwent FNA biopsy of her left lower pole 3.5 cm and left upper pole 1.5 cm thyroid nodules, both with benign cytology. Repeat thyroid US reveals no significant change. She does continue to complain of dysphagia. Last labs revealed hypothyroidism. Her levothyroxine was increased to 100 mcg PO daily at that time, but she has not yet repeated labs. ?Thyroid US: ?04/26/2022 Right Thyroid Lobe: Surgically absent. Left Thyroid Lobe: 3.7 x 1.5 x 1.7 cm, volume 4.8 mL. Previously 3.9 x 1.7 x 2.3 cm, volume 7.8 mL. Parenchyma: The gland echotexture is heterogeneous. Thyroid vascularity is increased. Isthmus: 0.7 cm in maximum AP dimension. Previously not measured. Estimated total number of nodules greater than or equal to 1 cm: 2. 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 Location: Left superior. ?? ? Size: 1.4 x 0.9 x 1.0 cm, volume 0.6 mL. ?? ? Previously: 1.7 x 1.2 x 1.4 cm, volume 1.5 mL. ?? ? Nodule characteristics: ?? ? Composition: Solid (2). ?? ? Echogenicity: Hypoechoic (2). ?? ? Shape: As tall as wide (0). ?? ? Margins: Smooth (0). ?? ? Echogenic Foci: None (0).? ACR TI-RADS total points: 4 Previous: 3 ?? ? ACR TI-RADS category: 4 Previous: 3 ? Significant change in size (>/= 20% in 2 dimensions and minimal increase of 2 mm or 50% or greater increase in volume): No ?? ? Change in features: Yes ?? ? Change in ACR TI-RADS risk category: Yes 2.? Location: Left inferior. ?? ? Size: 1.6 x 1.1 x 1.6 cm, volume 1.5 mL. ?? ? Previously: 1.5 x 1.3 x 1.4 cm, volume 1.4 mL. ?? ? Nodule characteristics: ?? ? Composition: Mixed cystic and solid (1). ?? ? Echogenicity: Isoechoic (1). ?? ? Shape: Not taller than wide (0). ?? ? Margins: Smooth (0). ?? ? Echogenic Foci: Macrocalcifications (1).? ACR TI-RADS total points: 3 Previous: 4 ?? ? ACR TI-RADS category: 3 Previous: 4 ? Significant change in size (>/= 20% in 2 dimensions and minimal increase of 2 mm or 50% or greater increase in volume): No ?? ? Change in features: Yes ?? ? Change in ACR TI-RADS risk category: Yes 3.? Location: Isthmus. ?? ? Size: 0.6 x 0.7 x 0.7 cm, volume 0.2 mL. ?? ? Previously: Not seen on the previous study. ?? ? Nodule characteristics: ?? ? Composition: Solid (2). ?? ? Echogenicity: Isoechoic (1). ?? ? Shape: Not taller than wide (0). ?? ? Margins: Smooth (0). ?? ? Echogenic Foci: None (0).? ACR TI-RADS total points: 3 ?? ? ACR TI-RADS category: 3 NODES: No lymphadenopathy is seen in the tissue surrounding the thyroid gland. ?Labs: Laboratory Tests 04/05/22 04/05/22 14:23 14:23 TSH 4.89 H Free T4 1.03 S/P completion thyroidectomy 03/03/23 with benign pathology. On levothyroxine 100 ug PFSH Medical History (Updated 06/07/23 @ 11:54 by Leonardo Padgett MD) Hypothyroidism Vitamin D deficiency Multinodular thyroid Surgical History (Updated 05/30/23 @ 09:36 by ORLANDO Alonzo) History of lobectomy of thyroid Hx of colonoscopy History of esophagogastroduodenoscopy (EGD) History of carpal tunnel surgery of left wrist Tubal ligation status Hx of foot surgery Hx of epicondylectomy Hx of cholecystectomy Hx of thyroidectomy Hx of appendectomy Family History Father No problems noted. 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) Alcohol intake: never Patient Tobacco Use Status: Never used Tobacco service: No Current occupational status: unemployed Female Reproductive History Menstrual Age of Menarche: 10 Physical Exam Vital Signs: Last Vital Signs Pulse 82 06/07/23 11:30 BP 130/84 06/07/23 11:30 BMI result Body Mass Index 26.2 Const Other: Healing scar status post completion thyroidectomy Assessment & Plan Assessment & Plan (1) Hypothyroidism: Code(s): E03.9 - Hypothyroidism, unspecified Category: Medical Qualifiers: Hypothyroidism type: unspecified Qualified Code(s): E03.9 - Hypothyroidism, unspecified Plan This 58-year-old female with a history of post-operative hypothyroidism status post completion thyroidectomy was supposed to be taking 100 mcg levothyroxine but was taking 75ug prescribed by primary care provider. She is clinically and biochemically hypothyroid Plan is to increase levothyroxine to 100 mcg and recheck TSH and free T4 in 6 weeks time Orders: Orders Thyroid Stimulating Hormone 6 Weeks E03.9 - Hypothyroidism, unspecified Free T4 (Free Thyroxine) 6 Weeks E03.9 - Hypothyroidism, unspecified Medications: New levothyroxine 100 mcg PO DAILY 30 tabs 5RF Coding Level of Care Code Est Pt Level 3 (84770) Diagnoses Hypothyroidism, unspecified type E03.9 Hypothyroidism type: unspecified
[2023-06-07 11:30] VITALS: BP 130/84; PULSE 82; BMI 26.2
== END 2023-06-07 11:58 | disposition home or self-care (01) ==
PROVIDERS: PCP Internal Medicine; Visit Provider Internal Medicine Endocrinology, Diabetes & Metabolism
DX: E03.9 Hypothyroidism, unspecified (principal)
CPT/HCPCS: 99213

== ENCOUNTER → 2023-06-07 10:54 | Outpatient (BNVA) | payer OTHER, SELFPAY | PROVIDERS: PCP Internal Medicine; Visit Provider Internal Medicine Endocrinology, Diabetes & Metabolism | DX: E03.9 Hypothyroidism, unspecified (principal) | CPT/HCPCS: 99212 ==

== ENCOUNTER 2023-10-06 14:48 | Outpatient (REF) | payer OTHER, SELFPAY ==
[2023-10-06 16:08] LABS: Free T4 (Free Thyroxine) 1.01 ng/dL (0.71-1.85); Thyroid Stimulating Hormone 4.54 uIU/mL (0.32-4.0)
== END 2023-10-06 14:49 | disposition home or self-care (01) ==
LOC: HO.LAB 14:48
PROVIDERS: PCP Internal Medicine; Visit Provider Internal Medicine Endocrinology, Diabetes & Metabolism
DX: E03.9 Hypothyroidism, unspecified (principal)
CPT/HCPCS: 36415; 84439; 84443

== ENCOUNTER 2023-10-11 10:15 | Outpatient (AMB) | payer OTHER, SELFPAY ==
[2023-10-11 10:18] VITALS: BP 114/80; PULSE 72; BMI 26.1
--- NOTE | 2023-10-11 10:18 | A.OFFVIS_ITS ---
Vital Signs 3 10/11/23 10:18 Height 5 ft 3 in Weight 147 lb 4.301 oz BMI 26.1 BP 114/80 Blood Pressure Location Lt brachial Position Sitting Pulse 72 Pulse Source Pulse Oximeter Intake Visit Reasons: f/u post-surgical hypothyroidism Intake Note: Patient present today for post-surgical hypothyroidism follow up visit. Christian Counselor Required: Yes Christian Counselor Language: Rail Car Loader Services: Christian Counselor Present Christian Counselor Name: [id number] Del Castillo Information Interpreted: non-clinical & clinical Accompanied by: Self / Same As Patient Allergies acetaminophen [Vicodin] Allergy (Unknown, Verified 10/11/23 10:22) unk Penicillins Adverse Reaction (Mild, Verified 10/11/23 10:22) HYPERTENSION hydrocodone [From VICODIN] Adverse Reaction (Unknown, Verified 10/11/23 10:22) HIGH BP Medication List - Last Reconciled 10/11/23 by Cherelle Valentine MD capsaicin 0.025% 1 appl topical BID cholecalciferol (vitamin D3) (Vitamin D3) 50 mcg PO DAILY docusate sodium 100 mg PO DAILY PRN famotidine 20 mg PO DAILY fluticasone propionate 50 mcg/actuation sprays intranasal levothyroxine 100 mcg PO DAILY loratadine 10 mg PO DAILY PRN nortriptyline 100 mg PO BEDTIME ondansetron 4 mg PO Q8H PRN pantoprazole 20 mg PO QAM PRN 30 days polyethylene glycol 3350 17 grams PO DAILY quetiapine 100 mg PO BEDTIME PRN sertraline 150 mg PO DAILY sumatriptan succinate 100 mg PO Q2-4H PRN tramadol 50 mg PO BID PRN venlafaxine 37.5 mg PO BID HPI Comments Details: 58-year-old female coming in today for follow up of post surgical hypothyroidism. She was previously seeing Dr. Padgett, last visit was May 2023. Prior to that she was seeing Dr. Robert. HPI from prior visit She has a history of right thyroid lobectomy many years ago due to multinodular thyroid, about 25 years ago per the chart, with benign pathology per patient. Subsequently in October 2017 she was found to have thyroglobulin and TPO antibodies. She was lost to follow up in the middle for some time. Subsequently she was found to have left sided nodules in her thyroid. She underwent FNA biopsy of the left lower pole (documented as 3.5 cm in the chart but 1.7 cm on US) left-sided nodule and the left upper pole 1.5 cm nodule in August 2021 with benign cytology. Most recent ultrasound from April 2022, showed stable size of the nodules. She was continuing to have progressively worsening dysphagia on hence was referred to Dr. Nilsa Perdue for completion thyroidectomy, status post completion thyroidectomy in February 2023. Pathology was benign, I reviewed these results. She reports swallowing improved after the surgery. She is currently on levothyroxine 100 mcg daily. Taking it appropriately. Says she will a dose once a week or once in 2 weeks. Most recent blood work from 10/06/2023 showed elevated TSH of 4.54, free T4 normal of 1.01. Endorses constipation. Denies palpitations, tremors. Denies heat or cold intolerance. Does endorse some tiredness. Weight is stable. Denies hair or skin changes. Patient denies any history of childhood neck radiation. Denies having ever used lithium, amiodarone or biotin supplements. Patient denies any family history of thyroid cancer or thyroid disease. Review of systems Constitutional: no fevers, chills HEENT: no changes in vision Cardiac: No chest pain, discomfort or palpitations. Pulmonary: No SOB GI:No abdominal pain, no nausea or vomiting, no anorexia, no blood in stool : no burning micturition, dysuria or increase in urinary frequency Neurologic: No dizziness, no weakness in extremities MSK: no back pain or joint stiffness Physical exam General: sitting comfortably in no acute distress HEENT: normocephalic/atraumatic, EOM intact, moist oral mucosa Neck: supple, symmetrical, well healed scar Cardiac: normal heart sounds Pulm: normal breath sounds B/L, no added breath sounds Abd: not distended, no tenderness Extremities: no edema, no signs of myxedema Neuro: AAO x3, Speech: normal, no facial droop, moving all 4 extremities [facility] Medical History (Updated 10/11/23 @ 10:29 by Cherelle Valentine MD) Type 2 diabetes mellitus Hypothyroidism Vitamin D deficiency Multinodular thyroid Surgical History History of lobectomy of thyroid Hx of colonoscopy History of esophagogastroduodenoscopy (EGD) History of carpal tunnel surgery of left wrist Tubal ligation status Hx of foot surgery Hx of epicondylectomy Hx of cholecystectomy Hx of thyroidectomy Hx of appendectomy Family History Father No problems noted. 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 COMPARISON: Ultrasound thyroid 02/04/2021. US-guided thyroid biopsy 08/27/2021. TECHNIQUE: Linear transducer grayscale and color Doppler examination with attention to the region of the thyroid. FINDINGS: SIZE: Measurements of the solitary left thyroid lobe and nodules are given in sagittal, anteroposterior and transverse dimensions respectively. Right Thyroid Lobe: Surgically absent. Left Thyroid Lobe: 3.7 x 1.5 x 1.7 cm, volume 4.8 mL. Previously 3.9 x 1.7 x 2.3 cm, volume 7.8 mL. Parenchyma: The gland echotexture is heterogeneous. Thyroid vascularity is increased. Isthmus: 0.7 cm in maximum AP dimension. Previously not measured. Estimated total number of nodules greater than or equal to 1 cm: 2. Domestic Housekeeper nodules are described as follows: 1. Location: Left superior. Size: 1.4 x 0.9 x 1.0 cm, volume 0.6 mL. Previously: 1.7 x 1.2 x 1.4 cm, volume 1.5 mL. Nodule characteristics: Composition: Solid (2). Echogenicity: Hypoechoic (2). Shape: As tall as wide (0). Margins: Smooth (0). Echogenic Foci: None (0). ACR TI-RADS total points: 4 Previous: 3 ACR TI-RADS category: 4 Previous: 3 Significant change in size (>/= 20% in 2 dimensions and minimal increase of 2 mm or 50% or greater increase in volume): No Change in features: Yes Change in ACR TI-RADS risk category: Yes 2. Location: Left inferior. Size: 1.6 x 1.1 x 1.6 cm, volume 1.5 mL. Previously: 1.5 x 1.3 x 1.4 cm, volume 1.4 mL. Nodule characteristics: Composition: Mixed cystic and solid (1). Echogenicity: Isoechoic (1). Shape: Not taller than wide (0). Margins: Smooth (0). Echogenic Foci: Macrocalcifications (1). ACR TI-RADS total points: 3 Previous: 4 ACR TI-RADS category: 3 Previous: 4 Significant change in size (>/= 20% in 2 dimensions and minimal increase of 2 mm or 50% or greater increase in volume): No Change in features: Yes Change in ACR TI-RADS risk category: Yes 3. Location: Isthmus. Size: 0.6 x 0.7 x 0.7 cm, volume 0.2 mL. Previously: Not seen on the previous study. Nodule characteristics: Composition: Solid (2). Echogenicity: Isoechoic (1). Shape: Not taller than wide (0). Margins: Smooth (0). Echogenic Foci: None (0). ACR TI-RADS total points: 3 ACR TI-RADS category: 3 NODES: No lymphadenopathy is seen in the tissue surrounding the thyroid gland. US/US thyroid IMPRESSION: A 1.4 cm TR 4 left superior thyroid nodule is increased in size. Recommend one-year follow-up thyroid ultrasound. A 1.6 TR 3 thyroid nodule is decreased in size, attention on follow-up imaging. A 0.7 cm TR 3 left thyroid nodule is new from prior, and does not meet criteria for follow-up given size less than 1.5 cm.. ACR TI-RADS RECOMMENDATION REFERENCE: Ultrasound-guided fine-needle aspiration, followup ultrasound, no further follow up. * TR1 (0 point) and TR2 (2 points): No FNA or follow up. * TR3 (3 points): FNA if more than or equal to 2.5 cm in maximum dimension, followup ultrasound in 1, 3 and 5 years if 1.5 to 2.4 cm in maximum dimension. * TR4 (4-6 points): FNA if more than or equal to 1.5 cm in maximum dimension, followup ultrasound in 1, 2, 3 and 5 years if 1 to 1.4 cm in maximum dimension. * TR5 (more than or equal to 7 points): FNA if more than or equal to 1 cm in maximum dimension, followup ultrasound every year for 5 years if 0.5 to 0.9 cm in maximum dimension. * TR3, TR4 or TR5 nodules that are below the size threshold for followup receive no follow up. Assessment & Plan Assessment & Plan (1) Hypothyroidism: Code(s): E03.9 - Hypothyroidism, unspecified Category: Medical Qualifiers: Hypothyroidism type: postoperative Qualified Code(s): E89.0 - Postprocedural hypothyroidism Plan: Patient with history of multinodular goiter status post right lobectomy about 25 years ago, with left-sided thyroid lobe nodules resulting in dysphagia, status post completion thyroidectomy in February [address] Nilsa Perdue for worsening compressive symptoms, with benign pathology, now on levothyroxine 100 mcg daily. She does have some symptoms of hypothyroidism including constipation, worsening tiredness. Labs from 10/06/2023 showed elevated TSH of 4.54, especially given her symptoms, we will increase the dose of levothyroxine to 112 mcg daily. We will plan to repeat labs in 6 weeks. Plan: -increase levothyroxine to 112 mcg daily -ordered TSH and free T4 to be done in 6 weeks , we will have the office reach out with the results with any need for further adjustment for levothyroxine dose -follow up in 6 months Plan I spent 30 minutes in reviewing the record, seeing the patient and documenting in the medical record. Orders: Orders 2 Thyroid Stimulating Hormone 6 Weeks E89.0 - Postprocedural hypothyroidism Free T4 (Free Thyroxine) 6 Weeks E89.0 - Postprocedural hypothyroidism Medications: New 2 levothyroxine Take 1 tablet daily on empty stomach 112 mcg PO DAILY 30 caps 7RF Discontinued 2 levothyroxine Discontinued Reason: Doctor's Order 100 mcg PO DAILY 30 tabs 5RF Patient Instructions: increase levothyroxine to 112 mcg daily , new prescription sent Repeat blood work in 6 weeks Follow up in 6 months call the office 2-3 weeks before your appointment to ask for new lab ordered as well aumentar levotiroxina a 112 mcg diarios, se envi? nueva receta Repetir an?lisis de george en 6 semanas. Seguimiento en 6 meses. Llame al consultorio 2 o 3 semanas antes de davis priscilla para solicitar que tambi?n soliciten un nuevo laboratorio Coding Level of Care Code Est Pt Level 4 (85787) Diagnoses Postoperative hypothyroidism E89.0 Hypothyroidism type: postoperative Time Spent (min) 30
== END 2023-10-11 10:51 | disposition home or self-care (01) ==
PROVIDERS: PCP Internal Medicine; Visit Provider Student in an Organized Health Care Education/Training Program
DX: E89.0 Postprocedural hypothyroidism (principal)
CPT/HCPCS: 99214

== ENCOUNTER → 2023-10-11 10:15 | Outpatient (BNVA) | payer OTHER, SELFPAY | PROVIDERS: PCP Internal Medicine; Visit Provider Student in an Organized Health Care Education/Training Program | DX: E89.0 Postprocedural hypothyroidism (principal) | CPT/HCPCS: 99212 ==

== ENCOUNTER 2023-10-20 10:39 | Outpatient (REF) | payer OTHER, SELFPAY ==
[2023-10-20 14:33] LABS: Estimated Average Glucose 128 mg/dL; Hemoglobin A1c % 6.1 % (<6.0)
[2023-10-20 14:40] LABS: Glucose Random 107 mg/dL (60-115)
== END 2023-10-20 10:40 | disposition home or self-care (01) ==
LOC: HO.CHCLDS 10:39
PROVIDERS: Visit Provider Emergency Medicine
DX: Z13.1 Encounter for screening for diabetes mellitus (principal); H60.501 Unspecified acute noninfective otitis externa, right ear
CPT/HCPCS: 36415; 82947; 83036

== ENCOUNTER 2023-10-25 14:23 | Outpatient (REF) | payer OTHER, SELFPAY ==
[2023-10-27 17:28] LABS: HPV mRNA E6/E7 Not Detected (Not Detected)
== END 2023-10-25 14:24 | disposition home or self-care (01) ==
LOC: HO.CHCLNP 14:23
PROVIDERS: Visit Provider Family Medicine
DX: Z01.419 Encounter for gynecological examination (general) (routine) without abnormal findings (principal)
CPT/HCPCS: 36415; 87624; 88175

== ENCOUNTER 2023-11-08 15:23 | Outpatient (REF) | payer OTHER, SELFPAY ==
--- NOTE | ~2023-11-08 | XR_ITS ---
EXAMINATION: XR HIP, LEFT CLINICAL INFORMATION: [Left hip pain, 5 months, status post fall COMPARISON: None available. TECHNIQUE: Two views of the left hip. FINDINGS: No fracture. Alignment is anatomic. Hip joint space is maintained. Soft tissues are unremarkable. Visualized portion of the pelvis appears intact. XR/XR hip LT min 2V IMPRESSION: No radiographic evidence of acute osseous abnormality. Electronically signed by: Louie Sorenson MD 11/08/2023 05:03 PM EDT
== END 2023-11-08 15:24 | disposition home or self-care (01) ==
LOC: HO.HHCX 15:23
PROVIDERS: Visit Provider Registered Nurse
DX: M25.552 Pain in left hip (principal)
CPT/HCPCS: 73502

== ENCOUNTER → 2023-12-19 08:38 | Outpatient (REF) | payer OTHER, SELFPAY ==
--- NOTE | 2023-12-19 08:41 | CA_ITS ---
Transthoracic Echocardiogram Patient (Last, First, Middle): Tory Bush, Gender: Female Date of : 1965 Age: 58 Procedure Date: 12/19/2023 Procedure Type: Transthoracic Echocardiogram Location: OP Height: 152.4 cm Weight: 61.24 kg BSA: 1.58 m2 Heart Rate: bpm BP: 122 / 78 mmHg Criminal Legal Assistant: GARCÍA Referring MD: Giana Isbell MD Symptoms: R06.02 SOB Study Quality: Adequate ECG Rhythm: Sinus Conclusions: - The left ventricular systolic function is normal. The calculated ejection fraction is 61% by biplane method. - Possible basal anteroseptal hypokinesis. - No obvious valvular pathology seen on this study. Findings Left Ventricle Normal left ventricular cavity size. There is normal left ventricular wall thickness. The left ventricular systolic function is normal. The calculated ejection fraction is 61% by biplane method. Diastolic function is normal for age. Possible basal anteroseptal hypokinesis. Right Ventricle Normal right ventricular cavity size and systolic function. Atria Both atria are normal in size. Aortic Valve There is a normal trileaflet aortic valve. There is no aortic valve stenosis. There is no aortic valve regurgitation. Mitral Valve The mitral valve appears normal. There is no mitral valve regurgitation. There is no mitral valve stenosis. Pulmonic Valve The pulmonic valve is likely normal. Tricuspid Valve There is trace tricuspid valve regurgitation. There is no evidence of pulmonary hypertension. Great Vessels The asc aorta and aortic arch are normal in size. Venous The inferior vena cava is normal in size and collapses greater than 50% with inspiration. Pericardium/Pleural There is no evidence of pericardial effusion. Prior Study Comparison No prior study available for comparison. Recommendations, Care & Conclusions No obvious valvular pathology seen on this study. Measurements 2D Linear Measurements IVSd: 0.86 0.6-0.9/0.6-1.0 cm LVIDd: 4.21 3.9-5.3/4.2-5.9 cm LVIDd Index: 2.66 2.4-3.2/2.2-3.1 cm/m2 LVIDs: 2.40 2.0-3.6 cm LVPWd: 0.91 0.7-1.1 cm LA Diam: 2.70 2.7-3.8/3.0-4.0 cm LAIDs Index: 1.71 1.5-2.3 cm/m2 LV Mass: 145.13 67-162/88-224 g LV Mass Index: 91.86 43-95/49-115 g/m2 LVOT Diam: 1.80 3.0+(-)1.3 cm 2D Systolic Function EF 4C: 56.80 >55% EF 2C: 65.10 >55% EF BiP: 60.70 >55% Mitral Valve MV Pk E: 0.62 MV PK A: 0.97 MV Decel Time: 173.00 E/A: 0.60 E'Lateral: 7.83 E'Medial: 5.22 E/E' Med: 11.90 E/E' Lat: 7.90 PHT: 51.00 MVA PHT: 4.31 Decel Ziebach: 3.59 Aortic Valve AoV Pk Josh: 1.51 AoV Mn Josh: 1.01 AoV VTI: 0.31 AoV Pk Grad: 9.00 Aov Mn Grad: 5.00 ALBERT Cont.VTI: 1.83 LVOT LVOT Pk Josh: 1.21 LVOT Mn Josh: 0.73 LVOT VTI: 0.23 LVOT Pk Grad: 6.00 LVOT Mn Grad: 2.00 LVOT Diam: 1.80 LVOT Area: 2.54 Diastolic Function MV Pk E: 0.62 MV Pk A: 0.97 E/A: 0.60 E'Medial: 5.22 E/E' Med: 11.90 E' Laterial: 7.83 E/E' Lat: 7.90 Right Ventricle TAPSE (mm): 20.70 TVS' Josh: 11.00 Tricuspid Valve TR Pk Josh: 1.86 TR Pk Grad: 14.00 RA Press: 3.00 RVSP: 17.00 Great Vessels Aorta Sinus of Valsalva: 2.92 2.0-3.[address] Ridge: 1.60 1.7-3.4 cm Ao Asc: 2.50 2.1-3.4 cm Ao Arch: 2.10 Updated in Other Vendor System with Status of Final Emmanuel Keys MD electronically signed on 12/19/2023 4:04:03 PM with status of Final
== END ==
LOC: HO.CARD 08:38
PROVIDERS: PCP Internal Medicine; Visit Provider Internal Medicine
DX: R06.02 Shortness of breath (principal)
CPT/HCPCS: 93306

== ENCOUNTER → 2023-12-19 08:41 | Outpatient (BNV) | payer OTHER, SELFPAY | PROVIDERS: PCP Internal Medicine; Visit Provider Internal Medicine | DX: R06.02 Shortness of breath (principal); I51.89 Other ill-defined heart diseases | CPT/HCPCS: 93306 ==

== ENCOUNTER 2024-01-04 12:19 | Outpatient (REF) | payer OTHER, SELFPAY ==
--- NOTE | ~2024-01-04 | MM_ITS ---
EXAMINATION: MM DIAGNOSTIC DIGITAL BREAST TOMOSYNTHESIS, BILATERAL CLINICAL INFORMATION: Right breast palpable lump. family history of breast cancer including the patient's mother. COMPARISON: Mammography: Comparison is made with relevant prior exams. TECHNIQUE: Digital breast mammography with tomosynthesis is performed in both the craniocaudal and mediolateral oblique views along with computer-aided detection (CAD). Limited right breast ultrasound. FINDINGS: The breasts are heterogeneously dense, which may obscure small masses (ACR BI-RADS breast composition Category c). Left: There are no significant masses, abnormal calcifications, or other abnormalities. Right: There is a focal asymmetry in the central outer breast posterior depth with associated pleomorphic calcifications which correlates to the patient's palpable lump indicated by the BB marker. No other suspicious abnormal findings. Targeted color Doppler ultrasound scanning in the area of the patient's palpable lump and irregular focal asymmetry with irregular calcifications demonstrates a solid irregular mass at 9:00 8 cm from the nipple measuring 16 x 20 x 11 mm with associated internal calcifications. Results are discussed with the patient at time of visit. MM/MM tomosynthesis diagnostic BI IMPRESSION: Left: Negative. Right: Solid irregular mass at 9:00 on ultrasound. Recommend histology with ultrasound-guided core needle biopsy at this time. The findings and recommendations were discussed with the patient the procedure will be scheduled. ASSESSMENT: BI-RADS BI-RADS 4 - Suspicious finding RECOMMENDATION: 1 year F/U (accession [id number]), Biopsy recommended (accession [id number]) This patient's information was entered into a reminder system with a target due date for their next mammogram. Electronically signed by: Carissa Raza DO 01/04/2024 01:35 PM LILI
== END 2024-01-04 12:20 | disposition home or self-care (01) ==
LOC: HO.MAMMO 12:19
PROVIDERS: PCP Family Medicine; Visit Provider Family Medicine
DX: N63.15 Unspecified lump in the right breast, overlapping quadrants (principal)
CPT/HCPCS: 76642; 77062; 77066

== ENCOUNTER → 2024-01-04 12:30 | Outpatient (BNV) | payer OTHER, SELFPAY | PROVIDERS: PCP Family Medicine; Visit Provider Internal Medicine | DX: N63.15 Unspecified lump in the right breast, overlapping quadrants (principal) | CPT/HCPCS: 76642; 77066; G0279 ==

== ENCOUNTER 2024-01-10 08:34 | Outpatient (AMB) | payer OTHER, SELFPAY ==
[2024-01-10 08:35] VITALS: BP 122/66; PULSE 99; BMI 25.9
--- NOTE | 2024-01-10 08:35 | A.OFFVIS_ITS ---
Vital Signs 3 01/10/24 08:35 Height 5 ft 3 in Weight 146 lb BMI 25.9 BP 122/66 Blood Pressure Location Rt brachial Position Standing Pulse 99 Intake Visit Reasons: (R) breast US Bx 9:00 mass Intake Note: This patient presents for Ultrasound guided biopsy consult for right breast 0900 o'clock mass. Pt c/o; reports mass right breast. Continuous Process Coffee Roaster Required: Yes Continuous Process Coffee Roaster Language: Pump Servicer Name: Swathi Information Interpreted: non-clinical & clinical Accompanied by: Sister Allergies acetaminophen [Vicodin] Allergy (Unknown, Verified 01/10/24 08:43) unk Penicillins Adverse Reaction (Mild, Verified 01/10/24 08:43) HYPERTENSION hydrocodone [From VICODIN] Adverse Reaction (Unknown, Verified 01/10/24 08:43) HIGH BP Medication List - Last Reconciled 01/10/24 by Pardeep Marcos MD capsaicin 0.025% 1 appl topical BID cholecalciferol (vitamin D3) (Vitamin D3) 50 mcg PO DAILY docusate sodium 100 mg PO DAILY PRN famotidine 20 mg PO DAILY fluticasone propionate 50 mcg/actuation sprays intranasal levothyroxine 112 mcg PO DAILY loratadine 10 mg PO DAILY PRN nortriptyline 100 mg PO BEDTIME ondansetron 4 mg PO Q8H PRN pantoprazole 20 mg PO QAM PRN polyethylene glycol 3350 17 grams PO DAILY quetiapine 100 mg PO BEDTIME PRN sertraline 150 mg PO DAILY sumatriptan succinate 100 mg PO Q2-4H PRN tramadol 50 mg PO BID PRN venlafaxine 37.5 mg PO BID HPI Comments Details: 58-year-old female patient presenting with a palpable breast mass in the right breast in the 9 o'clock position noted on self examination 2 months ago. Since this time the lump has increased in size but is not associated with any skin change or pain. She denies a previous history of breast problems or breast surgery. She has a strong family history of breast cancer including her mother who developed breast cancer at the age of 52. She subsequently succumbed to the disease of the age of 57. She also has a sister with ovarian cancer. Neither she nor her family have undergone genetic testing. She is 3 para 2 and breastfed both her children. Workup with mammogram and ultrasound revealed a suspicious density measuring 16 x 20 by 11 mm with calcifications felt to be suspicious for malignancy. She is scheduled for an ultrasound-guided core [facility] Medical History Type 2 diabetes mellitus Hypothyroidism Vitamin D deficiency Multinodular thyroid Surgical History History of lobectomy of thyroid Hx of colonoscopy History of esophagogastroduodenoscopy (EGD) History of carpal tunnel surgery of left wrist Tubal ligation status Hx of foot surgery Hx of epicondylectomy Hx of cholecystectomy Hx of thyroidectomy Hx of appendectomy Family History Father No problems noted. 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) Alcohol intake: never Patient Tobacco Use Status: Never used Tobacco service: No Current occupational status: unemployed Female Reproductive History Menstrual Age of Menarche: 15 Total pregnancies: 3 Number of Living Children: 2 Review of Systems Const All systems reviewed & are unremarkable except as noted in HPI and below Denies chills, Denies fever(s), Denies headache(s), Denies poor appetite and Denies weakness ENT Denies headache(s) Card Denies chest pain, Denies irregular heart rhythm, Denies palpitations and Denies dyspnea Resp Denies cough, Denies excessive phlegm production and Denies dyspnea GI Denies abdominal pain, Denies bloating, Denies change in bowel habits, Denies constipation, Denies heartburn, Denies diarrhea, Denies nausea and Denies vomiting Denies urinary frequency Musc Denies back pain, Denies muscle weakness and Denies numbness Skin/Breast Denies changing lesions and Denies unusual bruising Neuro Denies headache(s), Denies numbness, Denies paresthesias and Denies weakness Psych Denies anxiety and Denies depression Endo Denies palpitations Bulmaro/Lymph Denies lymphadenopathy Physical Exam Vital Signs: Last Vital Signs Pulse 99 01/10/24 08:35 BP 122/66 01/10/24 08:35 BMI result Body Mass Index 25.9 Const General: cooperative and no acute distress Nutritional Appearance: well nourished Orientation/consciousness: patient oriented x3 Limitations: no limitations HEENT Head: Yes normocephalic and Yes atraumatic Ears: hearing grossly normal bilaterally Chest Other: Right breast: Palpable mass in the 9 o'clock position approximately 8 cm from the nipple measuring at least 2 cm in diameter with no overlying skin changes and no fixation to the chest wall. No palpable lymph nodes noted in the right axilla. No nipple discharge and no other palpable mass appreciated. Left breast: No skin change, nipple discharge, palpable mass or enlarged lymph nodes appreciated. Chest/axillae images: 2 1. Palpable mass 09:00 o'clock right breast Resp Effort & Inspection: normal respiratory effort, no audible wheezes, no cough and no respiratory distress Cardio Jugular venous distension: no JVD GI Inspection: Yes normal to inspection Skin Other: Warm, dry, no rash Neuro General: patient oriented x3 Extrem General: Yes no clubbing, cyanosis or edema Assessment & Plan Assessment & Plan (1) Breast mass, right: Code(s): N63.10 - Unspecified lump in the right breast, unspecified quadrant Category: Medical Qualifiers: Breast mass location: upper outer quadrant Qualified Code(s): N63.11 - Unspecified lump in the right breast, upper outer quadrant (2) Family history of breast cancer in first degree relative: Code(s): Z80.3 - Family history of malignant neoplasm of breast Category: Medical Plan 58-year-old female patient with a 2 month history of a palpable mass in the right breast at the 9 o'clock position, 8 cm from the nipple measuring approximately 2 cm in diameter. Findings are suspicious for malignancy on examination as well as on mammogram/ultrasound. She is scheduled for an ultrasound-guided core biopsy at the [facility] on 01/18/2024. We discussed genetic testing given her strong family history of breast cancer and she is agreeable to this. This will be performed today. I also suggested obtaining a MRI of the breast because of the large size of the lesion. She expressed understanding and agrees with the plan. She will return 1 week following the biopsy to review the results and discuss treatment options. Orders: Orders 2 US breast ndl core biopsy RT Today N63.10 - Unspecified lump in the right breast, unspecified quadrant, R92.8 - Other abnormal and inconclusive findings on diagnostic imaging of breast, Z80.3 - Family history of malignant neoplasm of breast MR breast BI wo/w con Today N63.10 - Unspecified lump in the right breast, unspecified quadrant, Z80.3 - Family history of malignant neoplasm of breast Coding Level of Care Code New Pt Level 4 (73200) Diagnoses Mass of upper outer quadrant of right breast N63.11 Breast mass location: upper outer quadrant Family history of breast cancer in first degree relative Z80.3
== END 2024-01-10 09:05 | disposition home or self-care (01) ==
PROVIDERS: PCP Internal Medicine; Visit Provider Surgery
DX: N63.11 Unspecified lump in the right breast, upper outer quadrant (principal); Z80.3 Family history of malignant neoplasm of breast
CPT/HCPCS: 99204

== ENCOUNTER → 2024-01-10 08:34 | Outpatient (BNVA) | payer OTHER, SELFPAY | PROVIDERS: PCP Internal Medicine; Visit Provider Surgery | DX: N63.11 Unspecified lump in the right breast, upper outer quadrant (principal); R92.8 Other abnormal and inconclusive findings on diagnostic imaging of breast; Z80.3 Family history of malignant neoplasm of breast | CPT/HCPCS: 99202 ==

== ENCOUNTER 2024-01-18 07:28 | Outpatient (REF) | payer OTHER, SELFPAY ==
--- NOTE | ~2024-01-18 | MM_ITS ---
PROCEDURE: ULTRASOUND-GUIDED RIGHT BREAST BIOPSY CLINICAL INFORMATION: Irregular right breast solid mass. COMPARISON: Comparison is made with available prior examinations. TECHNIQUE: The details of the procedure, as well as the risks, benefits, and alternatives to the procedure were explained to the patient in detail and all of her questions were answered, after which, written informed consent was obtained. PROCEDURE: Prior to the procedure, sonography revealed a solid irregular mass at 9:00 8 cm from the nipple in the right breast. A time-out was performed, the lesion intended for biopsy was targeted and the skin of the right breast was then prepped and draped in the usual sterile fashion. Using sonographic guidance, sterile technique, and 1% lidocaine without epinephrine for local anesthesia, a total of 4 cores were obtained through the targeted area with a 14-gauge biopsy device. At the completion of tissue sampling, a single butterfly clip was deposited at the biopsy site. An appropriate sample was obtained. The postprocedure 2-view digital mammogram reveals satisfactory positioning of the biopsy clip. The patient tolerated the procedure well and, after assuring adequate hemostasis, was discharged in good condition after reviewing postbiopsy breast care instructions. Final pathology results are pending. MM/MM tomosynthesis diagnostic RT IMPRESSION: 1. Uncomplicated sonographically-guided core biopsy of the right breast. The 2-view digital postprocedure mammogram reveals satisfactory positioning of the biopsy clip. 2. Final pathology results are pending. A separate report with final recommendations will be issued once these results are made available. Electronically signed by: Carissa Raza DO 01/18/2024 09:37 AM [facility]
[2024-01-18] MEDS: Sodium Bicarbonate 8.4% 50 MEQ/50 ML VIAL SUBCUT (08:40)
[2024-01-18] MEDS: Lidocaine HCl 1 % 20 ML VIAL 18 ML SUBCUT (08:41)
== END 2024-01-18 07:29 | disposition home or self-care (01) ==
LOC: HO.MAMMO 07:28
PROVIDERS: Absent Provider Family Medicine; PCP Internal Medicine; Visit Provider Surgery
DX: C50.811 Malignant neoplasm of overlapping sites of right female breast (principal); Z17.0 Estrogen receptor positive status [ER+]; Z17.21 Progesterone receptor positive status; N63.10 Unspecified lump in the right breast, unspecified quadrant; R92.8 Other abnormal and inconclusive findings on diagnostic imaging of breast; Z80.3 Family history of malignant neoplasm of breast
CPT/HCPCS: 19083; 77061; 77065; 88305; 88342; 88360; A4648; C1894; J2003

== ENCOUNTER → 2024-01-18 08:00 | Outpatient (BNV) | payer OTHER, SELFPAY | PROVIDERS: Absent Provider Family Medicine; PCP Internal Medicine; Visit Provider Internal Medicine | DX: N63.15 Unspecified lump in the right breast, overlapping quadrants (principal) | CPT/HCPCS: 19083; 77065 ==

== ENCOUNTER 2024-01-20 10:29 | Outpatient (AMB) | payer OTHER, SELFPAY ==
--- NOTE | 2024-01-20 10:34 | A.OFFVIS_ITS ---
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 States her pain started after she fell at home about 5 months ago. States she fell down the stairs injuring her left hip. No groin pain. Pain is localized on her lateral aspect of hip an is constant. Pain is worsen from sit to stand, better when she is laying. Hx of hyperthyroid. Allergies acetaminophen [Vicodin] Allergy (Unknown, Verified 01/10/24 08:43) unk Penicillins Adverse Reaction (Mild, Verified 01/10/24 08:43) HYPERTENSION hydrocodone [From VICODIN] Adverse Reaction (Unknown, Verified 01/10/24 08:43) HIGH BP HPI Comments Details: Left hip pain after a fall. Fell down on left side, and bruised that area. Past medical history of diabetes and breast mass. Left hip x-ray essentially normal. Points to lateral hip left, not going to the groin. No numbness on the foot/leg. Denies back pain. Has been prescribed tramadol. Patient avoid too many medications due to issue with liver. [facility] Medical History Type 2 diabetes mellitus Hypothyroidism Vitamin D deficiency Multinodular thyroid Surgical History History of lobectomy of thyroid Hx of colonoscopy History of esophagogastroduodenoscopy (EGD) History of carpal tunnel surgery of left wrist Tubal ligation status Hx of foot surgery Hx of epicondylectomy Hx of cholecystectomy Hx of thyroidectomy Hx of appendectomy Family History Father No problems noted. 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 Patient was appropriately conversant and oriented. Good historian. MSK: No specific abnormalities found on inspection of the spine and all extremities. No pain with palpation over the lumbar area. Nontender SI joint. Tender on left GT. Slightly tender along ITB. Lumbar ROM was full. Bilateral hip, knee and ankle ROM WNL. No ligamentous laxity or crepitance. No increased effusion. Slump sit negative. FABERE test negative. Strength is 5/5 in all muscle groups tested. No increased tone noted. Neurological: Neurologic examination of the upper and lower extremities was nonfocal with intact sensation, muscle stretch reflexes and without focal motor deficits . Babinski was down going bilaterally. Clonus was negative. Gait is non-antalgic without loss of balance. Results Reviewed Results Reviewed: I independently reviewed the results of the following: Unremarkable left hip x-ray. Ordering Physician: Yvette Lisa Date of Service: 11/08/23 Procedure(s): XR hip LT min 2V Accession Number(s): [id number] cc: Yvette Lisa~ EXAMINATION: XR HIP, LEFT CLINICAL INFORMATION: [Left hip pain, 5 months, status post fall COMPARISON: None available. TECHNIQUE: Two views of the left hip. FINDINGS: No fracture. Alignment is anatomic. Hip joint space is maintained. Soft tissues are unremarkable. Visualized portion of the pelvis appears intact. XR/XR hip LT min 2V IMPRESSION: No radiographic evidence of acute osseous abnormality. I reviewed records from the following: PCP Assessment & Plan Assessment & Plan (1) Trochanteric bursitis, left hip: Code(s): M70.62 - Trochanteric bursitis, left hip Category: Medical (2) Iliotibial band syndrome, left leg: Code(s): M76.32 - Iliotibial band syndrome, left leg Category: Medical Plan Suspect left trochanteric bursitis and ITB syndrome after fall. No signs of DJD on left hip on x-ray. Would recommend topical anti-inflammatories such as diclofenac. Prescription sent and instructions given. Patient has already been referred to PT by primary care. Recommended to continue with that. Re- evaluate in 4-6 weeks, if not better may consider trochanteric injection. Assessment and plan discussed with patient, and patient was agreeable. All questions were answered thoroughly. Joy Lira MD, KHANH Board Certified, [place] [employer] and Rehabilitation (ABPMR) Board Certified, [place] Board [employer] Electrodiagnostic [employer] (ABEM) Medications: New diclofenac sodium 1% apply to left hip area, up to 4 times a day as needed 4 grams topical QID 100 grams 0RF Coding Level of Care Code New Pt Level 4 (11804) Diagnoses Trochanteric bursitis, left hip M70.62 Iliotibial band syndrome, left leg M76.32
[2024-01-20 10:35] VITALS: BMI 25.9
== END 2024-01-20 10:55 | disposition home or self-care (01) ==
PROVIDERS: PCP Internal Medicine; Visit Provider Physical Medicine & Rehabilitation
DX: M70.62 Trochanteric bursitis, left hip (principal); M76.32 Iliotibial band syndrome, left leg
CPT/HCPCS: 99203

== ENCOUNTER → 2024-01-20 10:29 | Outpatient (BNVA) | payer OTHER, SELFPAY | PROVIDERS: PCP Internal Medicine; Visit Provider Physical Medicine & Rehabilitation | DX: M70.62 Trochanteric bursitis, left hip (principal); M76.32 Iliotibial band syndrome, left leg | CPT/HCPCS: 99202 ==

== ENCOUNTER 2024-01-24 10:02 | Outpatient (AMB) | payer OTHER, SELFPAY ==
--- NOTE | 2024-01-24 10:11 | A.OFFVIS_ITS ---
Vital Signs 01/24/24 10:22 Height 5 ft 3 in Weight 146 lb 7 oz BMI 25.9 BP 132/72 Blood Pressure Location Lt brachial Position Sitting Pulse 102 H Intake Visit Reasons: breast biopsy results Intake Note: Patient is seen in office for ultrasound guided biopsy results, following right breast 9 o'clock mass. Pt c/o: denies any concerns at the time of visit, here for results Hog Driver Required: Yes Hog Driver Language: Business Intelligence Etl Developer Services: Hog Driver Present Hog Driver Name: Dee PERRY Information Interpreted: non-clinical & clinical Garment Parts Cutter Hand: Garment Parts Cutter Hand Present Accompanied by: Self / Same As Patient Allergies acetaminophen [Vicodin] Allergy (Unknown, Verified 01/24/24 10:23) unk Penicillins Adverse Reaction (Mild, Verified 01/24/24 10:23) HYPERTENSION hydrocodone [From VICODIN] Adverse Reaction (Unknown, Verified 01/24/24 10:23) HIGH BP Medication List - Last Reconciled 01/24/24 by Pardeep Marcos MD capsaicin 0.025% 1 appl topical BID cholecalciferol (vitamin D3) (Vitamin D3) 50 mcg PO DAILY diclofenac sodium 1% 4 grams topical QID docusate sodium 100 mg PO DAILY PRN famotidine 20 mg PO DAILY fluticasone propionate 50 mcg/actuation sprays intranasal levothyroxine 112 mcg PO DAILY loratadine 10 mg PO DAILY PRN nortriptyline 100 mg PO BEDTIME ondansetron 4 mg PO Q8H PRN pantoprazole 20 mg PO QAM PRN polyethylene glycol 3350 17 grams PO DAILY quetiapine 100 mg PO BEDTIME PRN sertraline 150 mg PO DAILY sumatriptan succinate 100 mg PO Q2-4H PRN tramadol 50 mg PO BID PRN venlafaxine 37.5 mg PO BID HPI Comments Details: 58-year-old female patient presenting with a palpable breast mass in the right breast in the 9 o'clock position noted on self examination 2 months ago. Since this time the lump has increased in size but is not associated with any skin change or pain. She denies a previous history of breast problems or breast surgery. She has a strong family history of breast cancer including her mother who developed breast cancer at the age of 52. She subsequently succumbed to the disease of the age of 57. She also has a sister with ovarian cancer. Neither she nor her family have undergone genetic testing. She is 3 para 2 and breastfed both her children. Workup with mammogram and ultrasound revealed a suspicious density measuring 16 x 20 by 11 mm with calcifications felt to be davis spicious for malignancy. She underwent an ultrasound-guided core biopsy on 01/18/2024 at the [facility]. Subsequent pathology revealed invasive ductal carcinoma, MS NH grade 3, estrogen receptor positive, progesterone receptor positive, HER2 Janki receptor positive, proliferation index Ki-67 30% (high). She returns today to review the pathology results. [facility] Medical History Invasive ductal carcinoma of right breast Type 2 diabetes mellitus Hypothyroidism Vitamin D deficiency Multinodular thyroid Surgical History History of lobectomy of thyroid Hx of colonoscopy History of esophagogastroduodenoscopy (EGD) History of carpal tunnel surgery of left wrist Tubal ligation status Hx of foot surgery Hx of epicondylectomy Hx of cholecystectomy Hx of thyroidectomy Hx of appendectomy Family History Father No problems noted. 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 Female Reproductive History Menstrual Age of Menarche: 15 Review of Systems Const All systems reviewed & are unremarkable except as noted in HPI and below Denies chills, Denies fever(s), Denies headache(s), Denies poor appetite and Denies weakness ENT Denies headache(s) Card Denies chest pain, Denies irregular heart rhythm, Denies palpitations and Denies dyspnea Resp Denies cough, Denies excessive phlegm production and Denies dyspnea GI Denies abdominal pain, Denies bloating, Denies change in bowel habits, Denies constipation, Denies heartburn, Denies diarrhea, Denies nausea and Denies vomiting Denies urinary frequency Musc Denies back pain, Denies muscle weakness and Denies numbness Skin/Breast Denies changing lesions and Denies unusual bruising Neuro Denies headache(s), Denies numbness, Denies paresthesias and Denies weakness Psych Denies anxiety and Denies depression Endo Denies palpitations Bulmaro/Lymph Denies lymphadenopathy Physical Exam Vital Signs: Last Vital Signs Pulse 102 H 01/24/24 10:22 BP 132/72 01/24/24 10:22 BMI result Body Mass Index 25.9 Const General: cooperative and no acute distress Nutritional Appearance: well nourished Orientation/consciousness: patient oriented x3 Limitations: no limitations HEENT Head: Yes normocephalic and Yes atraumatic Ears: hearing grossly normal bilaterally Chest Other: Right breast: Palpable mass in the 9 o'clock position approximately 8 cm from the nipple measuring at least 2 cm in diameter with no overlying skin changes and no fixation to the chest wall. No palpable lymph nodes noted in the right axilla. No nipple discharge and no other palpable mass appreciated. Left breast: No skin change, nipple discharge, palpable mass or enlarged lymph nodes appreciated. Resp Effort & Inspection: normal respiratory effort, no audible wheezes, no cough and no respiratory distress Cardio Jugular venous distension: no JVD GI Inspection: Yes normal to inspection Skin Other: Warm, dry, no rash Neuro General: patient oriented x3 Extrem General: Yes no clubbing, cyanosis or edema Assessment & Plan Assessment & Plan (1) Invasive ductal carcinoma of right breast: Code(s): C50.911 - Malignant neoplasm of unspecified site of right female breast Category: Medical Plan 58-year-old female patient with a palpable mass in the right breast status post ultrasound-guided core biopsy on 01/18/2024. Pathology revealed invasive ductal carcinoma, grade 3, positive for estrogen/progesterone and HER2 Janki and with a high Ki-67 proliferation index. Pathology results were discussed in detail with the patient and her questions answered to her apparent satisfaction. I recommended evaluation by Medical Oncology prior to surgical treatment for possible neoadjuvant chemotherapy. She expressed understanding and agrees with the plan. Follow-up will be based on oncology evaluation. Orders: Referrals Hematology & Oncology Referral C50.911 - Malignant neoplasm of unspecified site of right female breast Coding Level of Care Code Est Pt Level 3 (51094) Diagnoses Invasive ductal carcinoma of right breast C50.911
[2024-01-24 10:22] VITALS: BP 132/72; PULSE 102; BMI 25.9
== END 2024-01-24 10:47 | disposition home or self-care (01) ==
PROVIDERS: PCP Internal Medicine; Visit Provider Surgery
DX: C50.911 Malignant neoplasm of unspecified site of right female breast (principal)
CPT/HCPCS: 99213

== ENCOUNTER → 2024-01-24 10:02 | Outpatient (BNVA) | payer OTHER, SELFPAY | PROVIDERS: PCP Internal Medicine; Visit Provider Surgery | DX: C50.811 Malignant neoplasm of overlapping sites of right female breast (principal) | CPT/HCPCS: 99212 ==

== ENCOUNTER → 2024-01-25 13:34 | Outpatient (BNV) | payer OTHER, SELFPAY | PROVIDERS: PCP Internal Medicine; Referring Provider Surgery; Visit Provider Internal Medicine | DX: C50.412 Malignant neoplasm of upper-outer quadrant of left female breast (principal); Z80.3 Family history of malignant neoplasm of breast; Z80.41 Family history of malignant neoplasm of ovary | CPT/HCPCS: 99205; G2211 ==

== ENCOUNTER → 2024-02-06 09:33 | Outpatient (BNV) | payer OTHER, SELFPAY | PROVIDERS: Absent Provider Student in an Organized Health Care Education/Training Program; PCP Internal Medicine; Visit Provider Internal Medicine | DX: D05.11 Intraductal carcinoma in situ of right breast (principal) | CPT/HCPCS: 77049 ==

== ENCOUNTER 2024-02-06 09:34 | Outpatient (REF) | payer OTHER, SELFPAY ==
--- NOTE | ~2024-02-06 | MR_ITS ---
EXAMINATION: MR BREAST WITHOUT AND WITH CONTRAST, BILATERAL CLINICAL INFORMATION: Recently diagnosed biopsy-proven right breast invasive ductal carcinoma December 2023. Patient is under the care of oncology and breast surgeon for excision and further treatment. COMPARISON: Mammography and ultrasound January 18, 2024, January 04, 2024. Mammography December 08, 2022 TECHNIQUE: Imaging of the breast was performed using T1, T2 and fat saturated techniques. Dynamic multiphase imaging was also performed after the administration of intravenous gadolinium contrast agent. Computer generated 3-D reconstruction was utilized by the radiologist in the interpretation of this examination. FINDINGS: There is heterogeneous fibroglandular breast tissue with moderate background enhancement with scattered enhancing foci. LEFT BREAST: Within the lower outer breast anterior depth series 1032 image 86/126 there is an oval enhancing mass/area with nonenhancing internal septations measuring 9 mm anterior to posterior by 4 mm transverse by 5 mm superior to inferior. No other suspicious enhancing masses or areas of nonmass enhancement. No internal mammary or axillary adenopathy. RIGHT BREAST: Within the central outer breast far posterior depth at 9:00 8 cm from nipple there is a solid irregular mass measuring 48 mm anterior to posterior by 26 mm transverse by 27 mm superior to inferior there is internal susceptibility artifact from marker clip this is the site of pathology proven recent biopsy of invasive ductal carcinoma. Series 1032 image 79/126. Upper outer quadrant intramammary normal-appearing lymph node series 1032 image 64/126. No other suspicious enhancing masses or areas of nonmass enhancement. No internal mammary adenopathy or axillary adenopathy. Limited views of the chest and abdomen are unremarkable. MR/MR breast BI wo/w con IMPRESSION: Right: Biopsy-proven malignancy in the central outer right breast measuring up to 48 mm patient is under the care of a breast surgeon and oncology for excision and further management. Left: Oval enhancing mass/area in the lower outer left breast anterior depth measuring up to 9 mm. Second Look MRI directed ultrasound was performed January 18, 2024 and demonstrated only ectatic ducts and normal tissue. No sonographic correlate was seen. 6 month follow-up MRI is recommended for further evaluation of stability. ASSESSMENT: LEFT BREAST: BI-RADS 3 probably benign. Recommend 6 month follow-up MRI for further evaluation of stability. RIGHT BREAST: BI-RADS 6 biopsy proven known malignancy. The patient is under the care of a breast surgeon and oncology for excision and further management. RECOMMENDATIONS: Recommend 6 month follow-up MRI for further evaluation of stability left breast enhancing area. Recommend clinical follow-up for excision and management of known biopsy-proven right breast cancer. Electronically signed by: Carissa Raza DO 02/10/2024 03:36 PM EST
[2024-02-06] MEDS: gadobutroL 7.5 ML VIAL 6 ML IVPUSH (10:28)
[2024-02-06 11:53] LABS: TSH reflex Free T4 10.06 uIU/mL (0.32-4.0)
[2024-02-06 11:54] LABS: Free T4 (Free Thyroxine) 0.68 ng/dL (0.71-1.85)
== END 2024-02-06 09:35 | disposition home or self-care (01) ==
LOC: HO.MRI 09:34
PROVIDERS: Absent Provider Student in an Organized Health Care Education/Training Program; PCP Internal Medicine; Visit Provider Surgery
DX: N63.10 Unspecified lump in the right breast, unspecified quadrant (principal); E89.0 Postprocedural hypothyroidism; Z80.3 Family history of malignant neoplasm of breast
CPT/HCPCS: 36415; 77049; 84439; 84443; A9585

== ENCOUNTER 2024-02-10 11:39 | Outpatient (REF) | payer OTHER, SELFPAY ==
--- NOTE | ~2024-02-10 | US_ITS ---
EXAMINATION: US DIAGNOSTIC ULTRASOUND BREAST, LEFT CLINICAL INFORMATION: Biopsy-proven right breast invasive ductal carcinoma. Recent MRI demonstrated a 9 mm enhancing mass in the lower outer left breast anterior depth. Second Look MRI directed ultrasound is recommended for further evaluation. COMPARISON: Comparison is made with relevant prior imaging. TECHNIQUE: Ultrasound of the breast is performed with real-time hugo scale imaging and color Doppler. FINDINGS: Targeted color Doppler ultrasound scanning in the retroareolar region lower central breast at 6:00 and lower outer quadrant demonstrates multiple ectatic ducts. There is no suspicious sonographic abnormality. There is no sonographic correlate for the 9 mm enhancing oval mass seen on MRI. Results are provided to the patient at time of visit by the technologist. US/US breast LT limited mamm only IMPRESSION: Multiple ectatic ducts without sonographic abnormality. No MRI correlate seen sonographically. Recommend 6 month follow-up MRI for further evaluation of stability. Recommend excision and further management with breast surgeon and oncology for known right breast malignancy. ASSESSMENT: BI-RADS 2: Benign RECOMMENDATION: Recommend clinical management and follow-up for known right breast biopsy-proven malignancy. Recommend 6 month follow-up MRI for further evaluation of stability left breast enhancing mass. This patient's information was entered into a reminder system with a target due date for their next mammogram. Electronically signed by: Carissa Raza DO 02/10/2024 03:39 PM [facility]
== END 2024-02-10 11:40 | disposition home or self-care (01) ==
LOC: HO.MAMMO 11:39
PROVIDERS: PCP Internal Medicine; Visit Provider Internal Medicine
DX: C50.911 Malignant neoplasm of unspecified site of right female breast (principal)
CPT/HCPCS: 76642

== ENCOUNTER → 2024-02-10 12:15 | Outpatient (BNV) | payer OTHER, SELFPAY | PROVIDERS: PCP Internal Medicine; Visit Provider Internal Medicine | DX: C50.512 Malignant neoplasm of lower-outer quadrant of left female breast (principal) | CPT/HCPCS: 76642 ==

== ENCOUNTER 2024-02-15 13:40 | Outpatient (REF) | payer OTHER, SELFPAY ==
[2024-02-15 14:05] LABS: MANUAL DIFF FLAG NO
[2024-02-15 14:13] LABS: Basophils Percent Auto 0.6 % (0-2); Eosinophils Absolute Auto 0.1 X10*3/uL (0.0-0.4); Eosinophils Percent Auto 1.7 % (0-4); Hematocrit 43.6 % (37.0-47.0); Hemoglobin 14.7 g/dl (12.0-16.0); Imm Gran Abs Auto 0.01 X10*3/uL (0.00-0.03); Imm Gran Pct Auto 0.2 % (0.0-0.4); Lymphocytes Absolute Auto 1.7 X10*3/uL (1.2-4.9); Lymphocytes Percent Auto 31.5 % (20-40); Mean Corpuscular HGB Conc 33.7 g/dl (31.0-35.0); Mean Corpuscular Hemoglobin 30.2 pg (27.0-33.0); Mean Corpuscular Volume 89.5 fL (80.0-98.0); Mean Platelet Volume 9.5 fL (9.4-12.3); Monocytes Absolute Auto 0.5 X10*3/uL (0.1-1.2); Neutrophils Absolute Auto 3.1 x10*3/uL (2.0-8.3); Platelet Count 221 X10*3/uL (160-400); Red Blood Count 4.87 X10*6/uL (4.20-5.50); Red Cell Distribution Width 13.5 % (11.0-16.0); White Blood Count 5.3 X10*3/uL (4.8-10.8)
[2024-02-15 14:27] LABS: Alanine Aminotransferase 33 U/L (0-31); Albumin Level 4.2 g/dL (3.5-5.0); Alkaline Phosphatase 122 U/L (39-117); Anion Gap 12 (12-20); Aspartate Amino Transferase 36 U/L (5-31); Bilirubin Total 0.4 mg/dL (0.0-1.0); Blood Urea Nitrogen 14 mg/dL (9-16); Calcium 8.9 mg/dL (8.4-10.2); Carbon Dioxide 28 mmol/L (22-29); Chloride 109 mmol/L (96-108); Estimated Glomerular Filt Rate > 60; Glucose Random 94 mg/dL (60-115); Magnesium 2.2 mg/dL (1.6-2.6); Potassium 4.2 mmol/L (3.3-5.1); Sodium 145 mmol/L (135-145); Total Protein 7.1 g/dL (6.5-8.0)
== END 2024-02-15 13:41 | disposition home or self-care (01) ==
LOC: HO.LAB 13:40
PROVIDERS: PCP Internal Medicine; Visit Provider Internal Medicine
DX: C50.911 Malignant neoplasm of unspecified site of right female breast (principal)
CPT/HCPCS: 36415; 80053; 83735; 85025

== ENCOUNTER → 2024-02-16 06:06 | Day surgery (SDC) | payer OTHER, SELFPAY ==
[2024-02-16] VITALS (14 sets, daily range): BP systolic 112–132; BP diastolic 62–72; PULSE 83–96; RESP 15–20; TEMP 36.1–36.2; O2SAT 95–99; BMI 27.3
--- NOTE | ~2024-02-16 | IR_ITS ---
CLINICAL HISTORY: Right breast cancer. The patient presents to interventional radiology for placement of a port for chemotherapy. PROCEDURES: 1. Real-time ultrasound-guided access into the left internal jugular vein after documentation of selected vessel patency, and permanent image storing in the patient records. 2. Placement of a 6.6 Chinese single-lumen power port. CLINICIAN: Fortino Muniz PA-C MEDICATIONS: - Versed 1.5 mg, Fentanyl 75 mcg, Lidocaine 1% 10 mL SQ -Antibiotics: Ancef 2g -For additional details, please see nursing flowsheet. Complications: None. Estimated blood loss: <5 ml Specimens: None. Contrast: None. Fluoroscopy time: 1.5 min MODERATE SEDATION TIME: 40 min PROCEDURE NOTE: The procedure, risks, benefits, and alternatives were carefully explained to the patient and written informed consent was obtained. The patient was placed supine on the fluoroscopy table. A timeout was performed. The left neck and chest was prepped and draped in usual sterile fashion. Maximum barrier technique was utilized. Local anesthesia was administered to the access site with 1% lidocaine. Under ultrasound guidance, the left internal jugular vein was accessed with a 5 fr micropuncture set. A 0.035 in wire was advanced into the IVC. A peel-away sheath was advanced over the wire and into the SVC, and the wire was removed. Next, subcutaneous lidocaine was administered to the chest. The port pocket was created after the skin incision, utilizing blunt dissection. Using blunt dissection, a subcutaneous tunnel was created that connects from the port pocket to the venotomy site. Through the peel-away sheath, the 6.6 Chinese port catheter was placed. The catheter position was verified with fluoroscopy to be at the superior vena cava/right atrial junction. The port was connected to the catheter and was placed in the pocket. The venotomy site was closed with a 3-0 Vicryl subcutaneous suture. The port incision site was closed with interrupted 3-0 Vicryl subcutaneous sutures and surgical glue. Prior to closing the skin, 1 g of Ancef solution was placed in the pocket. The port was tested, flushed, and packed with heparin per routine protocol. The patient tolerated the procedure well. The patient was stable after the procedure and was transferred to the PACU. The procedure was performed under moderate sedation and with a dedicated nurse with continuous monitoring of vital signs. A permanent image of the ultrasound the neck and fluoroscopic image of the chest was saved and sent to PACS. FINDINGS: 1. Patent left internal jugular vein 2. Placement of a 6.6 Chinese single lumen power port. 3. Port flushes and aspirates very well with a 10 mL syringe. No pneumothorax. IR/IR cvc insert tunnel w prt/spine surgeon IMPRESSION: Placement of a 6.6 Chinese single-lumen power port. PLAN: - The patient will be discharged home when stable by sedation protocol. - Port may be used immediately. This procedure was performed by Fortino Muniz PA-C, and directly supervised by Dr. Pan Electronically signed by: Jose R Pan MD 02/24/2024 02:18 PM [facility]
[2024-02-16 07:11] LABS: Glucose, Whole Blood 142 mg/dL (60-115)
[2024-02-16] MEDS: ceFAZolin Sodium/Dextrose,Iso 2 GM/50 ML PIGGYBACK IV (08:02)
--- NOTE | 2024-02-16 08:03 | MHC.SHP ---
Pre-Procedural Eval Section A - 24 Hr Update-Section A only Date of Service: 02/16/24 Section B - Complete if H&P > 30 days Chief Complaint: MALIGNANT NEOPLASM OF RT BREAST Details of Present Illness: 58 y/o female with right breast cancer and poor iv access Relevant Family History (Specify if Yes): Yes Relevant Social History: None Present Medications: see Short Stay Collaborative assessment Medical History: Significant History History of Previous Operations: Relevant previous surgery/procedure and date(s) Allergies: Allergies Allergy/AdvReac Type Severity Reaction Status Date / Time acetaminophen [Vicodin] Allergy Unknown unk Verified 01/24/24 10:23 Penicillins AdvReac Mild HYPERTENSIO Verified 01/24/24 10:23 N hydrocodone [From VICODIN] AdvReac Unknown HIGH BP Verified 01/24/24 10:23 Review of Systems Sugical H&P ROS: Negative: Constitution, Cardiovascular and Respiratory Exam Surgical H&P Exam: Normal: Heart, Normal: Lungs, Normal: Skin and Normal: Neurological Exam Comment: 58 y/o female with right breast cancer and poor iv access -Left Port Plan I have reviewed the history and physical and performed a pertinent physical examination on my patient. No changes have occurred unless specified. Time Spent With Patient Time: Total time managing care of this patient today ____ minutes.
[2024-02-16] MEDS: Acetaminophen 1,000 MG/100 ML PIGGYBACK 400 MG IV (08:33)
[2024-02-16] MEDS: fentaNYL citrate/PF 100 MCG/2 ML VIAL 50 MCG IVPUSH (08:35)
[2024-02-16] MEDS: Midazolam HCl 5 MG/ML VIAL 1 MG IVPUSH (08:35)
--- NOTE | 2024-02-16 09:28 | PM.PROC ---
Brief Operative Note Date of procedure: 02/16/24 Pre-op diagnosis: Right breast cancer Post-op diagnosis: same Procedure: Port placement Left IJ SL slim power port placed using US an FL. Tip at cavoatrial junction. Ok for use.
== END | disposition home or self-care (01) ==
PROVIDERS: Physician Assistant Surgical; PCP Internal Medicine; Visit Provider Internal Medicine
DX: Z45.2 Encounter for adjustment and management of vascular access device (principal); C50.911 Malignant neoplasm of unspecified site of right female breast; Z17.0 Estrogen receptor positive status [ER+]; Z17.21 Progesterone receptor positive status; Z17.31 Human epidermal growth factor receptor 2 positive status; Z80.3 Family history of malignant neoplasm of breast; Z80.0 Family history of malignant neoplasm of digestive organs; E11.9 Type 2 diabetes mellitus without complications; Z79.899 Other long term (current) drug therapy; Z88.5 Allergy status to narcotic agent; Z98.890 Other specified postprocedural states; Z56.0 Unemployment, unspecified
CPT/HCPCS: 36561; 76937; 82947; 99152; 99153; J0690; J1642; J1644; J2003; J2250; J2310; J3010

== ENCOUNTER → 2024-02-16 06:06 | Outpatient (BNV) | payer OTHER, SELFPAY | PROVIDERS: PCP Internal Medicine; Visit Provider Physician Assistant Surgical | DX: C50.911 Malignant neoplasm of unspecified site of right female breast (principal) | CPT/HCPCS: 36561; 76937; 77001; 99152 ==

== ENCOUNTER 2024-02-22 11:14 | Outpatient (REF) | payer OTHER, SELFPAY ==
--- NOTE | ~2024-02-22 | MR_ITS ---
EXAMINATION: MR GUIDED VACUUM-ASSISTED CORE BIOPSY BREAST, LEFT MM DIGITAL MAMMOGRAPHY POST BIOPSY, LEFT CLINICAL INFORMATION: Recently diagnosed right breast cancer. Enhancing mass in the left breast on prior MRI for which biopsy was recommended.. COMPARISON: Comparison is made with available prior examinations. TECHNIQUE/PROCEDURE: Informed consent was obtained from the patient after discussion of the benefits, risks, and alternatives to biopsy today. Patient appeared to understand. Gave opportunity for questions. Patient signed consent form. Biopsy is performed under MRI guidance using breast surface coil. Imaging is performed without and with use of gadolinium contrast. [employer] introducer localization system is used with grid. LESION: Left retroareolar lower outer breast anterior depth.. LOCAL ANESTHESIA: 6 mL 1% lidocaine; 4 mL 1% lidocaine with epinephrine. NEEDLE: [employer] 9-gauge vacuum assisted core biopsy device. APPROACH: Lateral. CORES: 8. CLIP: cylinder shaped. POSTPROCEDURE UNILATERAL DIGITAL MAMMOGRAM: Mammography is performed using digital mammography in CC and ML views. There are scattered areas of fibroglandular density (ACR BI-RADS breast composition Category b). The clip marker is in position. No gross hematoma. The patient tolerated the procedure well. No immediate complications. Home instructions reviewed with the patient. Final pathology results are pending. MR/MR guided breast biopsy LT IMPRESSION: 1. Status post MRI guided vacuum-assisted core biopsy left breast with clip placement. 2. Final pathology results pending. An addendum report will be issued. Electronically signed by: Carissa Raza DO 02/23/2024 09:47 AM LILI
--- NOTE | ~2024-02-22 | MM_ITS ---
EXAMINATION: MR GUIDED VACUUM-ASSISTED CORE BIOPSY BREAST, LEFT MM DIGITAL MAMMOGRAPHY POST BIOPSY, LEFT CLINICAL INFORMATION: Recently diagnosed right breast cancer. Enhancing mass in the left breast on prior MRI for which biopsy was recommended.. COMPARISON: Comparison is made with available prior examinations. TECHNIQUE/PROCEDURE: Informed consent was obtained from the patient after discussion of the benefits, risks, and alternatives to biopsy today. Patient appeared to understand. Gave opportunity for questions. Patient signed consent form. Biopsy is performed under MRI guidance using breast surface coil. Imaging is performed without and with use of gadolinium contrast. [employer] introducer localization system is used with grid. LESION: Left retroareolar lower outer breast anterior depth.. LOCAL ANESTHESIA: 6 mL 1% lidocaine; 4 mL 1% lidocaine with epinephrine. NEEDLE: [employer] 9-gauge vacuum assisted core biopsy device. APPROACH: Lateral. CORES: 8. CLIP: cylinder shaped. POSTPROCEDURE UNILATERAL DIGITAL MAMMOGRAM: Mammography is performed using digital mammography in CC and ML views. There are scattered areas of fibroglandular density (ACR BI-RADS breast composition Category b). The clip marker is in position. No gross hematoma. The patient tolerated the procedure well. No immediate complications. Home instructions reviewed with the patient. Final pathology results are pending. MM/MM tomosynthesis diagnostic LT IMPRESSION: 1. Status post MRI guided vacuum-assisted core biopsy left breast with clip placement. 2. Final pathology results pending. An addendum report will be issued. Electronically signed by: Carissa Raza DO 02/23/2024 09:47 AM LILI
[2024-02-22] MEDS: gadobutroL 7.5 ML VIAL IVPUSH (13:40)
[2024-02-22] MEDS: Lidocaine HCl 1 % MPF 30 ML VIAL SUBCUT (13:42)
[2024-02-22] MEDS: Lidocaine HCl 1%/Epi 1:100,000 10 ML VIAL SUBCUT (13:43)
== END 2024-02-22 11:15 | disposition home or self-care (01) ==
LOC: HO.MRI 11:14
PROVIDERS: PCP Internal Medicine; Visit Provider Internal Medicine
DX: N63.25 Unspecified lump in the left breast, overlapping quadrants (principal); Z85.3 Personal history of malignant neoplasm of breast
CPT/HCPCS: 19085; 77061; 77065; 88305; A4648; A9585; J2003; J2004

== ENCOUNTER → 2024-02-22 11:14 | Outpatient (BNV) | payer OTHER, SELFPAY | PROVIDERS: PCP Internal Medicine; Visit Provider Internal Medicine | DX: N63.20 Unspecified lump in the left breast, unspecified quadrant (principal); C50.911 Malignant neoplasm of unspecified site of right female breast | CPT/HCPCS: 19085; 77065 ==

== ENCOUNTER 2024-03-13 13:55 | Inpatient (IN) | payer OTHER, SELFPAY ==
[2024-03-13] VITALS (9 sets, daily range): BP systolic 85–120; BP diastolic 45–68; PULSE 89–112; RESP 16–26; TEMP 36.8–36.9; O2SAT 96–99; BMI 23.0
--- NOTE | ~2024-03-13 | CT_ITS ---
EXAMINATION: CT ANGIOGRAM CHEST CLINICAL INFORMATION: Chest pain and dyspnea tachycardia. Elevated d-dimer. COMPARISON: 09/03/2017. TECHNIQUE: Multiple axial images were obtained through the chest after the administration of 50 mL of Omnipaque 350 intravenous contrast. Extensive vascular post-processing including two-dimensional and three-dimensional reformatted images were created and reviewed on an independent workstation. This CT examination was performed using dose optimization techniques as appropriate, variously including the following: *Automated exposure control *Adjustment of mA and/or kV according to patient size (this includes techniques or standardized protocols for targeted exams where dose is matched to indication/reason for exam; i.e. extremities or head) *Use of iterative reconstruction technique FINDINGS: Left chest port in place, tip extending into the cavoatrial junction. LUNGS: -Lungs are clear bilaterally. No consolidations or abnormal groundglass opacities. -Mild mosaic attenuation of the left lower lobe lobes present, most likely secondary to mild air trapping. -There is endobronchial mucous plugging and small airway thickening in the left lower lobe suggestive of possible focal bronchopneumonia. There are associated left lower lobe groundglass changes. -No pleural effusion or pneumothorax. -Central airways are patent. PLEURA: There is no pleural effusion. No pleural mass or thickening. MEDIASTINUM: -Heart size is normal. No right heart strain. No pericardial effusion. -Thyroid is diminutive. -No adenopathy in the mediastinum or hilum. -Mildly patulous esophagus present with a small type I hiatus hernia. VASCULAR: -There is no pulmonary embolus. -The main pulmonary artery is normal in size. -There is no evidence of contrast reflux into the IVC. -The aorta is normal in caliber and course. No evidence of acute aortic syndrome. AXILLA/CHEST WALL: -No lymphadenopathy. UPPER ABDOMEN: -Cholecystectomy. OSSEOUS STRUCTURES: -No suspicious lytic or blastic bone lesions. CT/CT angio chest PE protocol IMPRESSION: 1. No evidence of pulmonary embolus. Normal caliber pulmonary arteries. 2. No evidence of acute aortic syndrome. 3. Small airway thickening, endobronchial mucous plugging, and subtle groundglass changes left lower lobe suspicious for a subtle bronchopneumonia. Associated mild air trapping. Lungs otherwise clear. 4. No lymphadenopathy. 5. Small type I hiatus hernia. 6. Left chest port in good position. Electronically signed by: Ant Cole MD 03/13/2024 05:00 PM EST RP
--- NOTE | ~2024-03-13 | XR_ITS ---
EXAMINATION: XR CHEST 1 VIEW HISTORY: cp/sob COMPARISON: Comparison is made with the prior examination dated 04/25/2023. FINDINGS: A single AP portable view of the chest performed at 3:22 PM is submitted. A left-sided port is noted with its tip in the right atrium. The lungs are expanded and clear. There is no pleural effusion, pneumothorax, or pulmonary vascular congestion. The heart is normal in size. The bones are intact. XR/XR chest 1V IMPRESSION: No acute cardiopulmonary abnormality. Electronically signed by: Leonardo Larose MD 03/13/2024 03:49 PM EST
--- NOTE | 2024-03-13 13:58 | ECG_ITS ---
Test Reason : CP Blood Pressure : */* mmHG Vent. Rate : 103 BPM Atrial Rate : 103 BPM P-R Int : 132 ms QRS Dur : 76 ms QT Int : 326 ms P-R-T Axes : 24 44 44 degrees QTcB Int : 427 ms Sinus tachycardia Nonspecific T wave abnormality Abnormal ECG When compared with ECG of 25-Apr-2023 04:49, No significant change was found Referred By: Generic ED Physician Electronically Signed By: Chucky Hughes
[2024-03-13] MEDS: 0.9 % Sodium Chloride 1,000 ML 999 ML IV ×2 (14:54→15:59)
--- NOTE | 2024-03-13 15:00 | ED_ITS ---
HPI - Chest Pain General Chief Complaint: Chest Pain Stated Complaint: Chest pain Time Seen by Provider: 03/13/24 14:08 Source: patient, family, RN notes reviewed and old records reviewed Mode of arrival: wheelchair History of Present Illness ED Provider: Kristi Bazan PA-C HPI narrative: 58-year-old female with a past medical history of anemia, GERD, hypothyroid, DM, invasive ductal carcinoma of the right breast currently on chemotherapy followed by Dr. Badillo presenting to the ED s/p rapid response called in oncology suite [facility] due to patient having hypotension and chest pain. Patient went to Oncology office today due to right lower lid swelling and discomfort. Reports blurry vision and right eye tearing. Reports chest pain which is new, and dizziness. Reports acute on chronic SOB, worsening. Admits to chronic nausea since initiating chemo, generalized fatigue/weakness and LE edema since initiating chemo. Denies abdominal pain, vomiting, fever Related Data Home Medications ?Medication ?Instructions ?Recorded ?Confirmed loratadine 10 mg tablet 10 mg PO DAILY PRN allergies 12/20/19 03/13/24 nortriptyline 50 mg capsule 100 mg PO BEDTIME 12/20/19 03/13/24 quetiapine 100 mg tablet 100 mg PO BEDTIME PRN Sleep 12/20/19 03/13/24 sumatriptan succinate 100 mg tablet 100 mg PO Q2-4H PRN Headache 12/20/19 03/13/24 sertraline 100 mg tablet 150 mg PO DAILY 10/06/20 03/13/24 docusate sodium 100 mg capsule 100 mg PO DAILY PRN Constipation 07/17/22 03/13/24 capsaicin 0.025 % topical cream 1 appl topical BID 05/12/23 03/13/24 cholecalciferol (vitamin D3) 50 50 mcg PO DAILY 05/12/23 03/13/24 mcg (2,000 unit) capsule (Vitamin D3) fluticasone propionate 50 50 spray intranasal DAILY 05/12/23 03/13/24 mcg/actuation nasal spray,suspension venlafaxine 37.5 mg tablet 37.5 mg PO BID 05/12/23 03/13/24 Previous Rx's ?Medication ?Instructions ?Recorded famotidine 20 mg tablet 20 mg PO DAILY #30 tabs 09/27/22 ondansetron 4 mg disintegrating 4 mg PO Q8H PRN nausea and 01/15/23 tablet vomiting #14 tabs tramadol 50 mg tablet 50 mg PO BID PRN pain #6 tabs 04/25/23 pantoprazole 20 mg tablet,delayed 20 mg PO QAM PRN for heartburn #30 12/26/23 release tabs diclofenac sodium 1 % topical gel 4 g topical QID #100 grams 01/20/24 Synthroid 112 mcg tablet 112 mcg PO DAILY #30 tabs 02/03/24 (levothyroxine) dexamethasone 2 mg tablet 2 mg PO BID #30 tabs 02/10/24 ondansetron 8 mg disintegrating 8 mg PO Q8H PRN Nausea And 02/10/24 tablet Vomiting #30 tabs Magic Mouthwash 10 ml PO TID #240 mL 03/08/24 Diphen/Nystat/Antacid 1:1:1 240 mL suspension polyethylene glycol 3350 17 gram 17 g PO DAILY #30 ea 03/08/24 oral powder packet nystatin-triamcinolone 100,000 1 appl topical TID #120 grams 03/09/24 unit/g-0.1 % topical cream erythromycin 5 mg/gram (0.5 %) eye 0.5 inch ophthalmic (eye) TID #60 03/13/24 ointment grams Allergies Allergy/AdvReac Type Severity Reaction Status Date / Time acetaminophen [Vicodin] Allergy Unknown unk Verified 03/13/24 14:09 Penicillins AdvReac Mild HYPERTENSIO Verified 03/13/24 14:09 N hydrocodone [From VICODIN] AdvReac Unknown HIGH BP Verified 03/13/24 14:09 Review of Systems 2 Review of Systems: Yes all other systems are reviewed and are negative Constitutional: Constitutional: Reports as per HPI Neurologic: Denies Abnormal speech present [facility] Past Medical History Attestation statement: The following information was validated with the patient. Source: old records reviewed Medical History Anemia GERD (gastroesophageal reflux disease) Fatty liver Invasive ductal carcinoma of right breast Type 2 diabetes mellitus Vitamin D deficiency Multinodular thyroid Hypothyroidism Surgical History History of lobectomy of thyroid Hx of colonoscopy History of esophagogastroduodenoscopy (EGD) History of carpal tunnel surgery of left wrist Tubal ligation status Hx of foot surgery Hx of epicondylectomy Hx of cholecystectomy Hx of thyroidectomy Hx of appendectomy Family History Family History Father No problems noted. 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) Alcohol intake: never Patient Tobacco Use Status: Never used Tobacco Smoked in Last 30 Days: No Use of substances other than those prescribed or required for medical reasons: No Advance Directives: No Advance Directives Information Provided: Yes Do you have a plan to hurt others: No Plan service: No Current occupational status: unemployed 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 Gender identity: Female Physical Exam 2 Vital Signs: Vital Signs: Last Vital Signs Temp 98.4 F 03/13/24 19:17 Pulse 89 03/13/24 19:17 Resp 17 03/13/24 19:17 BP 103/56 L 03/13/24 19:17 Pulse Ox 98 03/13/24 19:17 O2 Del Method Room Air 03/13/24 19:17 BMI result Body Mass Index 23.0 Const: General: cooperative, no acute distress and ill appearing chronically Orientation/consciousness: patient oriented x3 Limitations: no limitations HEENT: Head: Yes normal to inspection and Yes atraumatic Ears: hearing grossly normal bilaterally General nose exam: Normal external nose present Face and sinus: Yes normal facial exam Throat: Yes posterior oropharynx normal Eyes: Other: Right eye with lower lid erythema and crusting with appreciable hordeolum. EOMs intact without entrapment or pain. No conjunctival injection. General: appearance normal, both eyes and all related structures C onjunctivae: conjunctivae normal Pupils: Equal, round and reactive pupils present EOM: EOMs intact bilaterally Neck: Neck: Yes normal visual inspection and Yes no meningeal signs Resp: Effort & Inspection: normal respiratory effort and no respiratory distress Auscultation: clear to auscultation bilaterally, no crackles and no wheezes Cardio: Rate: regular rate Heart sounds: S1 normal heart sound present and S2 normal heart sound present GI: Inspection: Yes normal to inspection Palpation (GI): Soft to palpation, nontender, no guarding and not rigid : General: Yes no CVA tenderness Back/Spine/Pelvis: Back: no CVA tenderness Skin: Rashes: no rashes Wounds: no wounds Neuro: General: patient oriented x3, tone normal, moves all extremities, no meningeal signs, no focal motor deficits and CN's II-XI intact bilaterally C ranial nerves: Yes CN's II-XII intact bilaterally, Yes Equal, round and reactive pupils present and Yes Bilaterally intact EOM present Cognition (Neuro): n ormal cognition Speech: No Abnormal speech present Gait exam (Neuro): N ormal gait present Motor exam (neuro): 5/5 motor strength present throughout Extrem: General: Yes normal to inspection Course Course Course Narrative: -1546--no leukocytosis. H/H stable. D-dimer elevated > will obtain CTA to rule out PE -initial troponin 6.2 > will obtain repeat -Viral studies negative >1548--BP soft. Additional IVF ordered. -1630--ED care transferred to ERICA Serrano pending repeat troponin, CXR, CTA to rule out PE, and anticipated admission Reevaluation(s) Reevaluation #1: Patient received in sign-out at change of shift pending CT angiography report, repeat troponin. The patient's troponin has remained flat and negative. CT angiography shows no evidence of PE but does show bronchopneumonia. Given that the patient is receiving active chemotherapy, her last course was 5 days ago I ordered cefepime for coverage of pneumonia. We will discuss with the hospitalist for admission. Most recent blood pressure is 95/47. The patient meets sepsis criteria given that she has a suspected infection with pneumonia, 3 different abnormal vital signs. However she does not meet severe sepsis as she would not have to systolic blood pressures less than 90 and she had a lactate of 1.0. She did receive IV fluids, 2 L as an IV bolus from the previous provider. This was over 30 cc per kg as her weight is 58.9 kg and would be less than 1800 cc. Time: 18:35 Medications Administered Discontinued Medications Generic Name Dose Route Start Last Admin Trade Name Freq PRN Reason Stop Dose Admin Sodium Chloride 1,000 mls @ 999 mls/hr 03/13/24 14:45 03/13/24 18:17 Ns IV 03/13/24 15:45 Infused .Q1H1M JACOB Infusion Sodium Chloride 1,000 mls @ 999 mls/hr 03/13/24 15:45 03/13/24 18:17 Ns IV 03/13/24 16:45 Infused .Q1H1M JACOB Infusion Cefepime HCl 2 gm in 50 mls @ 100 mls/hr 03/13/24 18:21 03/13/24 18:50 Maxipime IV 03/13/24 18:50 100 mls/hr ONCE ONE Administration Iohexol 100 ml 03/13/24 16:27 03/13/24 16:27 Iohexol 350 Mg/Ml 100 Ml Infus..Btl IV 03/13/24 16:28 65 ml ONCE ONE Administration Meclizine HCl 25 mg 03/13/24 15:04 03/13/24 15:59 Meclizine Hcl 25 Mg Tablet PO 03/13/24 15:05 25 mg ONCE ONE Administration Medical Decision Making Medical Decision Making MDM Narrative: 58-year-old female with a past medical history of anemia, GERD, hypothyroid, DM, invasive ductal carcinoma of the right breast currently on chemotherapy followed by Dr. Badillo presenting to the ED s/p rapid response called in oncology suite [facility] due to patient having hypotension and chest pain. On exam tachycardic, tachypneic, nontoxic appearing, physical exam as noted above. Right lower eyelid erythema/hordeolum and crusting appreciated. States she was prescribed eye ointment and antibiotics by Oncology. Concern for acute ACS vs PE vs chemo reaction vs viral illness vs metabolic abnormalities. Rule out infectious etiology. Low suspicion for severe sepsis at this time. Lower suspicion for CVA/TIA or ICH. No evidence of preseptal or septal cellulitis Plan: EKG, labs, UA, CXR, viral testing, IVF, meclizine, re-evaluate Please refer to course for remaining clinical decision making, interpretation of labs/imaging results, and discussions with consultants and/or family members. Differential Diagnosis Differential Diagnoses: The differential diagnosis associated with the presentation includes As above Admission/Observation Consideration of admission/observation: Escalation of care including admission/observation considered Consult Healthcare Provider Management of the patient was discussed with: Research Physicist (Oncology) Lab Data [facility] Lab Attestation statement: I reviewed the patient's lab results. 03/13/24 14:52 03/13/24 14:52 Labs: Lab Results 03/13/24 03/13/24 03/13/24 Range/Units 14:52 16:05 18:39 WBC 7.5 (4.8-10.8) X10*3/uL RBC 4.75 (4.20-5.50) X10*6/uL Hgb 14.2 (12.0-16.0) g/dl Hct 41.9 (37.0-47.0) % MCV 88.2 (80.0-98.0) fL MCH 29.9 (27.0-33.0) pg MCHC 33.9 (31.0-35.0) g/dl RDW 14.5 (11.0-16.0) % Plt Count 148 L D (160-400) X10*3/uL MPV 9.7 (9.4-12.3) fL Immature Gran % (Auto) Cancelled Neut % (Auto) Cancelled Lymph % (Auto) Cancelled Ada % (Auto) Cancelled Eos % (Auto) Cancelled Baso % (Auto) Cancelled Lymph # (Auto) Cancelled Ada # (Auto) Cancelled Eos # (Auto) Cancelled Baso # (Auto) Cancelled Abs Immat Gran (auto) Cancelled Absolute Neuts (auto) Cancelled Absolute Nucleated RBC 0.000 (0.0-0.012) X10*3/uL Nucleated RBC % (auto) 0.0 (0.0-0.2) /100WBC Neutrophils % (Manual) 70 (45-73) % Band Neutrophils % 2 L (3-5) % Lymphocytes % (Manual) 26 (20-40) % Monocytes % (Manual) 1 L (2-11) % Eosinophils % (Manual) 1 (0-4) % Abs Neuts (Manual) 5.4 (2.0-8.3) X10*3/uL Lymphocytes # (Manual) 2.0 (1.2-4.9) X10*3/uL Monocytes # (Manual) 0.1 (0.1-1.2) X10*3/uL Eosinophils # (Manual) 0.1 (0.0-0.4) X10*3/uL Toxic Granulation PRESENT Toxic Vacuolation PRESENT Dohle Bodies PRESENT Platelet Estimate NORMAL (NORMAL) Plt Morphology Comment NORMAL RBC Morphology NORMAL PT 11.1 (10.9-12.4) SEC INR 1.0 (0.9-1.1) D-Dimer High Sensitivty 349 NG/ML Sodium 140 (135-145) mmol/L Potassium 4.0 (3.3-5.1) mmol/L Chloride 109 H (96-108) mmol/L Carbon Dioxide 22 (22-29) mmol/L Anion Gap 13 (12-20) BUN 20 H (9-16) mg/dL Creatinine 0.93 (0.5-1.4) mg/dL Estim Creat Clear Calc 54.5 Estimated GFR > 60 Random Glucose 123 H (60-115) mg/dL Lactic Acid 1.0 (0.5-2.0) mmol/L Calcium 9.0 (8.4-10.2) mg/dL Magnesium 1.9 (1.6-2.6) mg/dL Total Bilirubin 0.5 (0.0-1.0) mg/dL Direct Bilirubin 0.1 (0.0-0.5) mg/dL AST 33 H (5-31) U/L ALT 38 H (0-31) U/L Alkaline Phosphatase 161 H (39-117) U/L Troponin I High Sens 6.2 D 5.8 (<3.5-17.0) ng/L B-Natriuretic Peptide < 10 (<100) pg/mL Total Protein 6.7 (6.5-8.0) g/dL Albumin 3.7 (3.5-5.0) g/dL Influenza Type A (PCR) NEGATIVE (Negative) Influenza Type B (PCR) NEGATIVE (Negative) RSV RNA Qual (PCR) NEGATIVE (Negative) SARS-CoV-2 RNA (RT-PCR) NEGATIVE (Negative) Independent Interpretation I performed an independent interpretation of an: EKG (My interpretation EKG sinus tachycardia rate of 103. DC interval 132. QTC 427. No STEMI. ) and Plain X-Ray Radiology Impression Discussion of test interpretation with radiology: I have reviewed the radiologist's reading. Independent Historian Clinical information obtained from an independent historian. History obtained from or confirmed by: Spouse External Record Review External record reviewed: Inpatient record, Office record, Outpatient record, Prior outpatient labs, Prior outpatient radiology, Primary care record and Outside ED record Tests considered The following testing was considered but not selected: As above Prescription Management I considered prescription management with: Other Chronic Conditions Patient?s care impacted by: Cancer and Other Social Determinants Patient?s care significantly limited by Social Determinants of Health including: Inadequate housing, Low income, Problems related to primary support group and Other Social Determinant of Health Critical Care Time Critical Care Time Critical Care Time: Yes Total Critical Care Time: 45 Attestation: I have personally provided critical care time exclusive of time spent on separately billable procedures. Time includes review of lab data, radiology results, discussion with consultants, and monitoring for potential decompensation. Intervention performed as documented. Discharge Plan Discharge Clinical Impression: Hypotension, Pneumonia Patient Disposition: Admitted As Inpatient Print Language: Icelandic
[2024-03-13 15:02] LABS: Hematocrit 41.9 % (37.0-47.0); Hemoglobin 14.2 g/dl (12.0-16.0); Mean Corpuscular HGB Conc 33.9 g/dl (31.0-35.0); Mean Corpuscular Hemoglobin 29.9 pg (27.0-33.0); Mean Corpuscular Volume 88.2 fL (80.0-98.0); Mean Platelet Volume 9.7 fL (9.4-12.3); Platelet Count 148 X10*3/uL (160-400); Red Blood Count 4.75 X10*6/uL (4.20-5.50); Red Cell Distribution Width 14.5 % (11.0-16.0)
[2024-03-13 15:09] LABS: WBC ABN SCTR FOR CBC 1; White Blood Count 7.5 X10*3/uL (4.8-10.8)
[2024-03-13 15:13] LABS: Prothrombin Time 11.1 SEC (10.9-12.4)
[2024-03-13 15:15] LABS: D Dimer High Sensitivity 349 NG/ML
[2024-03-13 15:25] LABS: Band Neutrophils Percent 2 % (3-5); Eosinophils Absolute Manual 0.1 X10*3/uL (0.0-0.4); Eosinophils Percent Manual 1 % (0-4); Lymphocytes Percent Manual 26 % (20-40); Monocytes Absolute Manual 0.1 X10*3/uL (0.1-1.2); Monocytes Percent Manual 1 % (2-11); Neutrophils Absolute Manual 5.4 X10*3/uL (2.0-8.3); Neutrophils Percent Manual 70 % (45-73)
[2024-03-13 15:26] LABS: B Type Natriuretic Peptide < 10 pg/mL (<100)
[2024-03-13 15:27] LABS: Dohle Bodies PRESENT; Platelet Estimate NORMAL (NORMAL); Platelet Morphology Comment NORMAL; RBC Morphology NORMAL; Toxic Granulation PRESENT; Toxic Vacuolation PRESENT; Troponin-I High Sensitivity 6.2 ng/L (<3.5-17.0)
[2024-03-13 15:39] LABS: Influenza A PCR NEGATIVE (Negative); Influenza B PCR NEGATIVE (Negative); Resp Syncy Virus RNA Qual PCR NEGATIVE (Negative); SARS COV2 PCR INHOUSE NEGATIVE (Negative)
[2024-03-13 15:42] LABS: Alanine Aminotransferase 38 U/L (0-31); Albumin Level 3.7 g/dL (3.5-5.0); Anion Gap 13 (12-20); Aspartate Amino Transferase 33 U/L (5-31); Bilirubin Direct 0.1 mg/dL (0.0-0.5); Bilirubin Total 0.5 mg/dL (0.0-1.0); Blood Urea Nitrogen 20 mg/dL (9-16); Carbon Dioxide 22 mmol/L (22-29); Chloride 109 mmol/L (96-108); Creatinine Clr Calc Pharmacy 54.5; Estimated Glomerular Filt Rate > 60; Glucose Random 123 mg/dL (60-115); Magnesium 1.9 mg/dL (1.6-2.6); Sodium 140 mmol/L (135-145); Total Protein 6.7 g/dL (6.5-8.0)
--- OUTSIDE RECORDS SUMMARY | 2024-03-13 15:46 | XMS_ITS | Clinical Summary ---
Author Organization [email or web address] Address [address] [place] [address] Care Team Providers Care Production Expert Name Role Phone Giana Isbell MD Primary Care Provider Allergies Active Allergy Reactions Criticality Noted Date Comments Acetaminophen Unknown 07/17/2022 Hydrocodone Other,Hives 12/13/2011 Other reaction(s): Altered Heart Rate Outside Source Comment: Other reaction(s): Altered Heart Rate Hydrocodone-Acetaminophe n 10/25/2023 Penicillin G Rash Low 04/12/2022 Penicillins Rash,Unknown,Hives Low 02/19/2010 Medications docusate sodium (Colace) 100 MG capsuleIndications :Other constipation TAKE 1 CAPSULE BY MOUTH AT BEDTIME NEEDED 30 capsule 5 3 Active lidocaine (Lidoderm) 5 % patchIndications:N david pain Remove & discard patch within 12 hours or as directed by MD. 30 patch 3 3 Active nortriptyline (Pamelor) 50 MG capsule Take 100 mg by mouth in the morning. 3 Active QUEtiapine (SEROquel) 100 MG tablet Take 100 mg by mouth if needed at bedtime. 3 Active sertraline (Zoloft) 100 MG tablet TAKE 1 AND 1/2 TABLETS BY MOUTH EVERY MORNING 3 Active SUMAtriptan (Imitrex) 100 MG tabletIndications: Migraine without aura and without status migrainosus, not intractable TAKE 1 TABLET BY MOUTH AT ONSET OF MIGRAINE. MAY REPEAT ONCE AFTER 2 HOURS IF NEEDED. DO NOT EXCEED 2 TABLETS IN 24 HOURS 8 tablet 5 3 Active Stool Softener/Laxative 50-8.6 MG tablet Take 2 tablets by mouth 2 times daily. 3 Active famotidine (Pepcid) 20 MG tabletIndications: Epigastric pain Take 1 tablet (20 mg) by mouth 2 times daily. 60 tablet 11 4 025 Active Ketotifen Fumarate (Zaditor) 0.035 % solution Administer 1 drop into affected eye(s) if needed in the morning and at bedtime (itching). 10 mL 4 Active venlafaxine (Effexor) 37.5 MG tabletIndications: Depressive disorder TAKE 1 TABLET BY MOUTH TWICE DAILY 60 tablet 5 4 Active pantoprazole (ProtoNix) 20 MG EC tablet TAKE 1 TABLET BY MOUTH EVERY MORNING NEEDED FOR HEARTBURN 4 Active fluticasone (Flonase) 50 MCG/ACT nasal sprayIndications:S easonal allergies INSTILL 1-2 SPRAYS IN EACH NOSTRIL ONCE DAILY NEEDED 16 g 5 4 Active D3 Super Strength 50 MCG (2000 UT) capsuleIndications :Vitamin D deficiency TAKE 1 CAPSULE BY MOUTH EVERY DAY 30 capsule 5 4 Active tiZANidine (Zanaflex) 2 MG tabletIndications: Muscle tension pain Take 1-2 tablets (2-4 mg) by mouth if needed at bedtime for muscle spasms. 30 tablet 4 025 Active capsaicin (Zostrix) 0.025 % creamIndications:C hronic pain of left knee APPLY 1 GRAM TOPICALLY TO AFFECTED AREA(S) TWICE DAILY 60 g 3 4 Active Elastic Bandages & Supports (Knee Support) miscIndications:Le ft hip pain H/o knee instability. 2 each 4 Active ibuprofen 600 MG tablet Take 1 tablet (600 mg) by mouth every 6 (six) hours if needed for mild pain for up to 20 doses. 20 tablet 4 Active chlorhexidine (Peridex) 0.12 % solution Swish 15 mL morning and night for 1 minute. Spit, do not swallow. Do not eat or drink for 30 minutes following use. 473 mL 4 Active hydrocortisone 0.5 % cream APPLY 1 GRAM TOPICALLY TO AFFECTED AREA(S) TWICE DAILY DIRECTED 56.8 g 1 4 Active Levoxyl 112 MCG tabletIndications: Acquired hypothyroidism Take 1 tablet (112 mcg) by mouth before breakfast. 30 tablet 3 4 Active Active Problems Problem Noted Date Diagnosed Date Ductal carcinoma of breast 02/22/2024 Closed fracture of tooth 12/16/2023 Pre-diabetes 12/06/2023 Fractured dental latter day without loss of mat erial 12/06/2023 Transaminitis 10/25/2023 Painful arc syndrome of right shoulder Multinodular thyroid 10/25/2023 Microscopic hematuria 10/25/2023 Iron deficiency anemia 10/25/2023 Female pelvic pain 10/25/2023 Endocervical polyp 10/25/2023 Hepatitis 10/25/2023 Acute hepatitis 10/25/2023 Abdominal pain 10/25/2023 Mass overlapping multiple quadrants of right evelyn ast 10/25/2023 Assessment & Plan (10/25/2023 10:59 AM EDT): R sided mass 2.5 cm x 2.0 cm @ 9 o'clock, following CRICO needs diagnostic mammo and breast US, [place] [facility] [place]ical cancer screening 10/25/2023 Assessment & Plan (10/25/2023 11:08 AM EDT): 58 y.o. here for cervical cancer screening. Will continue monitoring following ASCCP guidelines. Hordeolum externum left lower eyelid 08/02/2023 Assessment & Plan (08/02/2023 1:58 PM EDT): -apply warm compress multiple times per day -instill 1-2 gtts ketotifen BID prn itching -wash eyelids with baby shampoo -avoid make-up and eye liners -monitor and RTC with increase size, visual changes, eye drainage Otitis externa of left ear 10/07/2022 Cyst of ovary 03/31/2022 Depressive disorder 03/31/2022 Hypertension 03/31/2022 Menorrhagia with irregular cycle 03/31/2022 Acquired hypothyroidism 03/31/2022 Dysphagia 12/21/2017 Pain in wrist 10/03/2017 Recurrent major depression 06/15/2017 Asthenia 03/18/2017 Contact dermatitis 10/12/2016 Arthritis 11/28/2015 Generalized anxiety disorder 07/21/2015 Migraine 07/21/2015 Resolved Problems Problem Noted Date Diagnosed Date Resolved Date Dysuria 10/07/2022 10/25/2023 Assessment & Plan (10/13/2022 8:59 AM EDT): Will send out UCx, given patient symptomatic will send antibiotics. F/up Cx Irregular menstrual cycle 03/31/2022 Neck pain 12/21/2017 11/03/2023 Acute cystitis 12/16/2016 11/03/2023 Encounters Date Type Department Care Team Description 03/13/2024 Orders Only GENERIC EXTERNAL DATA DEPARTMENT Provider, Generic External Data 02/24/2024 Telephone [facility] [address] [place] [phone] Lou Gonzalez MD 02/23/2024 Telephone [facility] [employer] [facility] [address], [place] [phone] Giana Isbell MD 02/22/2024 3:30 PM EST Office Visit [facility] [address], [place] [phone] Giana Isbell MD Functional urinary incontinence (Primary Dx); Infiltrating ductal carcinoma of right breast ([facility]) 02/22/2024 Orders Only [facility] External Provider, [facility] 02/22/2024 Travel 02/21/2024 Telephone [facility] [address] [place] [address] Giana Isbell MD Chart Prep 02/17/2024 Orders Only [facility] [address], [place] [phone] Kathi Rollins MD 02/16/2024 Telephone [facility] [address], [place] [phone] Giana Isbell MD Transition Of Care (Tcm) 02/16/2024 Orders Only GENERIC EXTERNAL DATA DEPARTMENT Provider, Generic External Data 02/15/2024 Orders Only GENERIC EXTERNAL DATA DEPARTMENT Provider, Generic External Data 02/10/2024 Orders Only [facility] External Provider, [facility] 02/10/2024 Telephone [facility] [address] [place] [address] Nicole Paz, RN Results 02/06/2024 Orders Only [facility] [address] [place] [address] Giana Isbell MD Acquired hypothyroidism (Primary Dx) 02/06/2024 Orders Only GENERIC EXTERNAL DATA DEPARTMENT Provider, Generic External Data 02/02/2024 Refill [facility] [address] [place] [phone] Giana Isbell MD 01/18/2024 Orders Only GENERIC EXTERNAL DATA DEPARTMENT Provider, Generic External Data 12/20/2023 Telephone [facility] [address] [place] [address] Giana Isbell MD Results 12/19/2023 Orders Only [facility] [address] [place] [address] Giana Isbell MD SOB (shortness of breath) (Primary Dx) 12/16/2023 10:30 AM EST Office Visit [facility] [address] [place] [address] Elliott Johnson DDS Fractured dental latter day without loss of material (Primary Dx); Closed fracture of tooth, initial encounter from Last 3 Months Immunizations Name Administration Dates Next Due Hep B, adult 08/09/2007,04/06/2007,03/07/2007 Christelle SARS-CoV-2 Vaccination 04/30/2020 TD (adult), 2 Lf tetanus tox oid, preservative free, adsorbed 09/23/2006 Tdap 09/21/2021 Family History Medical History Relation Name Comments Coronary artery disease Maternal Grandmother Breast cancer Mother Diabetes Sister Ovarian cancer Sister Relation Name Status Comments Maternal Grandmother Mother Sister Social History Tobacco Use Types Packs/Day Years Used Date Smoking Tobacco: Never Passive Smoke Exposure: Never Smokeless Tobacco: Never Tobacco Cessation:Counseling Given: Not Answered Depression Answer Date Recorded Patient Health Questionnaire-9 Score 7 07/29/2022 Housing Stability Answer Date Recorded What is your housing situation today? I have rob alexander 11/22/[address] you li ve. Do you have problems with any of the following? None of the above 11/22/2022 Food Insecurity Answer Date Recorded Within the past 12 months, y ou worried that your food would run out before you got money to buy more: Never True 11/22/2022 Within the past 12 months,th e food you bought just didn't last and you didn't have enough money to get more: Never True Transportation Answer Date Recorded In the past 12 months, has l ack of transportation kept you from medical appts, meetings, work or from getting things needed for daily living? No 11/22/2022 Utilities Answer Date Recorded In the past 12 months, has t he electric, gas, oil or water company threatened to shut off services in your home? No 11/22/2022 Depression Answer Date Recorded Patient Health Questionnaire-2 Score 4 07/29/2022 Comments Unknown Sex and Gender Information Value Date Recorded Sex Assigned at Female 12/07/2021 10:16 AM EDT Legal Sex Female 10:16 AM EDT Gender Identity Female 12/07/2021 10:16 AM EDT Sexual Orientation Straight 12/07/2021 10 :16 AM EDT Last Filed Vital Signs Vital Sign Reading Time Taken Comments Blood Pressure 117/73 02/22/2024 3:26 PM EST Pulse 76 02/22/2024 3:26 PM EST Temperature 36.6 ??C (97.9 ??F) 02/22/2024 3:26 PM ES T Respiratory Rate 20 02/22/2024 3:26 PM EST Oxygen Saturation 94% 02/22/2024 3:26 PM EST Inhaled Oxygen Concentration - - Weight 63 kg (139 lb) 02/22/2024 3:26 PM EST Height 152.4 cm (5') 02/22/2024 3:26 PM EST Body Mass Index 27.15 02/22/2024 3:26 PM EST Plan of Treatment Upcoming Encounters Date Type Department Care Team (Late st Contact Info) Description 06/11/2024 9:00 AM EDT Office Visit [facility] [address] [place] [address], [place] [address] Dawna Pro, OD [address] [place] [address] Health Maintenance Due Date Last Done Comments CT Colonography 1965 FIT DNA/Cologuard 1965 FIT 1965 FOBT 1965 HIV Screening 1965 Sigmoidoscopy 1965 Alcohol/Substance Use Screening 1977 Hepatitis A Vaccines (1 of 2 - Risk 2-dose series) 1984 Pneumococcal Vaccine: 50+ Years (1 of 1 - PCV) 06/02/2015 Zoster Vaccines (1 of 2) 06/02/2015 Dental Oral Exam 06/05/2022 12/04/2021, 09/2020, 08/28/2013 Dental Prophylaxis 06/05/2022 12/04/2021, 1 , 02/16/2019, Additional history exists Dental X-Ray: Bitewings 12/05/2022 12/05/19 22, 01/05/2021, 11/13/2020, Additional history exists SDOH Screening 07/21/2023 07/20/2022 Depression Screening 07/30/2023 07/29/2022, 07/30/19 23 COVID-19 Vaccine ( season) 2023 11/30/2021, 08/24/2021, 02/03/2021, Additional history exists Influenza Vaccine (#1) 2024 Postp oned from 10/09/2023 (Patient Refused) Diabetes: Hemoglobin A1C 12/05/2024 024, 10/20/2023, 08/27/2021, Additional history exists Tobacco Screening 02/21/2025 02/22/2024 Colonoscopy 12/01/2025 12/02/2015 Colorectal Cancer Screening 12/01/2025 Lipid Panel 08/04/2026 08/04/2021, 12/08, 10/31/2020 Dental X-Ray: Full Mouth 12/06/2026 12/06/2023, 1008/2020 Cervical Cancer Screening 10/24/2028 HPV/Cotest 10/24/2028 10/25/2023 Pap Smear 10/24/2028 10/25/2023 DTaP/Tdap/Td Vaccines (2 - Td or Tdap) 09/22/2031 09/21/2021, 09/23/2006 RSV Patients and Patients Aged 60 years or older (1 - 1-dose 75+ series) 2040 Hepatitis B Vaccines Completed 08/09/2007, 04/06/2007, 03/07/2007 Hepatitis C Screening Completed 01/13/2023 , 08/04/2021, 12/24/2020 HIB Vaccines Aged Out No longer eligi ble based on patient's age to complete this topic HPV Vaccines Aged Out No longer eligi ble based on patient's age to complete this topic IPV Vaccines Aged Out No longer eligi ble based on patient's age to complete this topic Meningococcal Vaccine Aged Out No christine roxanne eligible based on patient's age to complete this topic RSV under 20 months Aged Out No longe r eligible based on patient's age to complete this topic Rotavirus Vaccines Aged Out No longer eligible based on patient's age to complete this topic Procedures Procedure Name Priority Date/Time Associated Diagnosis Comments MAGNESIUM Routine 03/13/2024 2:52 PM EST BASIC METABOLIC PANEL Routine 03/13/2024 2:52 PM EST HEPATIC FUNCTION PANEL Routine 2:52 PM EST HIGH SENSITIVITY TROPONIN I Routine 03/13/2024 2:52 PM EST B TYPE NATRIURETIC PEPTIDE (BNP) Routine 03/13/2024 2:52 PM EST D DIMER HIGH SENSITIVITY Routine 03/13/2024 2:52 PM EST PROTHROMBIN TIME-INR Routine 03/13/2024 2:52 PM EST COMPLETE BLOOD COUNT MAN DIF Routine 03/13/2024 2:52 PM EST CBC WITH AUTO DIFFERENTIAL Routine 03/13/2024 2:52 PM EST SARS COV2/INFLUENZA A/B AND RSV RNA QL NAAT Routine 03/13/2024 2:52 PM EST POCT URINALYSIS DIPSTICK Routine 02/22/2024 4:33 PM EST Functional urinary incontinence BI MAMMOGRAM DIAGNOSTIC TOMOSYNTHESIS LEFT Routine 02/22/2024 12:55 PM EST HEMATOXYLIN AND EOSIN STAIN Routine 02/22/2024 12:27 PM EST BI MR GUIDED BREAST BIOPSY LEFT Routine 02/22/2024 11:14 AM EST IR CVC INSERT TUNNEL W PRT/WHARF TALLY CLERK Routine 02/16/2024 7:46 AM EST GLUCOSE, WHOLE BLOOD Routine 02/16/2024 7:06 AM EST MAGNESIUM Routine 02/15/2024 2:03 PM EST COMPREHENSIVE METABOLIC PANEL Routine 02/15/2024 2:03 PM EST CBC WITH AUTO DIFFERENTIAL Routine 02/15/2024 2:03 PM EST BI US BREAST LIMITED LEFT Routine 02/10/2024 12:15 PM EST T4, FREE Routine 02/06/2024 10:45 AM EST TSH W/REFLEX TO FT4 Routine 02/06/2024 1 0:45 AM EST Acquired hypothyroidism BI MR BREAST W AND WO CONTRAST BILATERAL Routine 02/06/2024 9:33 AM EST SURGICAL PATHOLOGY Routine 01/18/2024 9: 43 AM EST HEMATOXYLIN AND EOSIN STAIN Routine 01/18/2024 8:20 AM EST US BREAST NDL CORE BIOPSY RT Routine 01/18/2024 8:00 AM EST BI MAMMOGRAM DIAGNOSTIC TOMOSYNTHESIS RIGHT Routine 01/18/2024 8:00 AM EST BI US BREAST LIMITED RIGHT Routine 01/04/2024 1:00 PM EST BI MAMMOGRAM DIAGNOSTIC TOMOSYNTHESIS BILATERAL Routine 01/04/2024 12:30 PM EST 17 INTRAORAL - PERIAPICAL FIRST RADIOGRAPHIC IMAGE Routine 12/16/2023 10:30 AM EST ADJUNCTIVE GENERAL SERVICES - PROFESSIONAL VISITS - CASE PRESENTATION, SUBSEQUENT TO DETAILED AND EXTENSIVE TREATMENT PLANNING Routine 12/16/2023 10:30 AM EST 17 EXTRACTION, ERUPTED TOOTH REQUIRING REMOVAL OF BONE AND/OR SECTIONING OF TOOTH, AND INCLUDING ELEVATION OF MUCOPERIOSTEAL FLAP IF INDICATED Routine 12/16/2023 10:30 AM EST PANORAMIC RADIOGRAPHIC IMAGE Routine 12/06/2023 1:00 PM EDT POCT GLYCATED HEMOGLOBIN, TOTAL Routine 12/06/2023 11:41 AM EDT Pre-diabetes THINPREP IMAGING PAP AND HPV MRNA E6/E7 Routine 10/25/2023 12:00 AM EDT HEPATITIS PANEL, GENERAL Routine 01/13/2023 9:50 AM EST PROPHYLAXIS - ADULT Routine 12/04/2021 1 2:00 AM EDT BITEWINGS - 4 RADIOGRAPHIC IMAGES Routine 12/04/2021 12:00 AM EDT PERIODIC ORAL EVALUATION - ESTABLISHED PATIENT Routine 12/04/2021 12:00 AM EDT LIPID PANEL, STANDARD Routine 08/04/2021 9:06 AM EDT HM COLONOSCOPY Routine 12/02/2015 from Last 3 Months or Most Recently Relevant to Health Maintenance Results * D Dimer High Sensitivity (03/13/2024 2:52 PM EST) D Dimer High Sensitivity 349 NG/ML [facility] Comment:D-DIMER HS REFERENCE RANGENote: Our assay reports D-Dimer Units (D- DU).The cut-off value for venous thromboembolic (VTE) disease is230 ng/mL. This value has a very high negative predictivevalue when the patient has a low to moderate clinicalprobability of VTE.The upper limit of normal is 243 ng/mL. 03/13/2024 2:52 PM EST 03/13/2024 3:00 PM EST Generic External Data Provider LAB BLOOD ORDERAB LES Final Result Performing Organization Address [facility] de Phone Number [facility] [address] [place] [phone] * High Sensitivity Troponin I (03/13/2024 2:52 PM EST) Pathologist [facility] TROPONIN I HIGH SENSITIVITY 6.2 <3.5 - 17.0 ng/L [facility] Comment:The Dinh high sens itivity Troponin-I results should beused in conjunction with other diagnostic information suchas ECG, clinical observations and information, and patientsymptoms to aid in the diagnosis of AK. 03/13/2024 2:52 PM EST 03/13/2024 3:00 PM EST [employer] External Data Provider LAB BLOOD ORDERAB LES Final Result Performing Organization Address [facility] Phone Number [facility] [address] [place] [phone] * (ABNORMAL) Complete Blood Count Manual Diff (03/13/2024 2:52 PM EST) White Blood Count 7.5 4.8 - 10.8 X10*3/uL [facility] Red Blood Count 4.75 4.20 - 5.50 X10*6/uL [facility] Hemoglobin 14.2 12.0 - 16.0 g/dl [facility] Hematocrit 41.9 37.0 - 47.0 % [facility] Mean Corpuscular Volume 88.2 80.0 - 98.0 fL [facility] Mean Corpuscular Hemoglobin 29.9 27.0 - 33.0 pg [facility] Mean Corpuscular HGB Conc 33.9 31.0 - 35.0 g/dl [facility] Red Cell Distribution Width 14.5 11.0 - 16.0 % [facility] Platelet Count 148(L) 160 - 400 X10*3/uL [facility] Mean Platelet Volume 9.7 9.4 - 12.3 fL [facility] NRBC Pct Auto 0.0 0.0 - 0.2 /100WBC [facility] NRBC Abs Auto 0.000 0.0 - 0.012 X10*3/uL [facility] Neutrophils % Manual 70 45 - 73 % [facility] Band Neutrophils Percent 2(L) 3 - 5 % [facility] Lymphocytes Percent Manual 26 20 - 40 % [facility] Monocytes Percent Manual 1(L) 2 - 11 % [facility] EOSINOPHILS % MANUAL 1 0 - 4 % [facility] NEUTROPHILS ABSOLUTE MANUAL 5.4 2.0 - 8.3 X10*3/uL [facility] LYMPHOCYTES ABSOLUTE MANUAL 2.0 1.2 - 4.9 X10*3/uL [facility] MONOCYTES ABSOLUTE MANUAL 0.1 0.1 - 1.2 X10*3/uL [facility] EOSINOPHILS ABSOLUTE MANUAL 0.1 0.0 - 0.4 X10*3/uL [facility] Platelet Estimate NORMAL NORMAL [facility] Platelet Morphology Comment NORMAL [facility] RBC Morphology NORMAL [facility] Toxic Granulation PRESENT [facility] Toxic Vacuolation [facility]ENT [facility] Dohle Bodies PRESENT [facility] 03/13/2024 2:52 PM EST 03/13/2024 3:00 PM EST us Generic External Data Provider LAB BLOOD ORDERAB LES Final Result [facility] [address] [place] [phone] * SARS-CoV-2 RNA, Influenza A/B, and RSV RNA, Ql NAAT (03/13/2024 2:52 PM EST) Influenza A PCR NEGATIVE Negative [facility] Influenza B PCR NEGATIVE Negative [facility] Resp Syncy Virus RNA Qual PCR NEGATIVE Negative [facility] SARS COV2 PCR NEGATIVE Negative [facility] Comment:All test results mus t be correlated with clinical findings.Negative results do not preclude SARS-CoV2, influenza Avirus, influenza B virus and/or RSV infectionand should not be used as the sole basis for treatment orother patient management decisions. Negative results must becombined with clinical observations, patient history, andepidemiological information.This test has not been evaluated for monitoring treatment ofinfection.This test has been authorized by the FDA under an EmergencyUse Authorization (EUA) for use by authorized laboratories.Testing performed on the [employer] GeneXpert utilizingreal-time RT-PCR.All SARS CoV2 and positive influenza A/B results arereported to [facility]. 03/13/2024 2:52 PM EST 03/13/2024 3:00 PM EST Generic External Data Provider LAB MICROBIOLOGY - GENERAL ORDERABLES Final Result [facility] [address] [place] [address] [phone] * (ABNORMAL) CBC auto differential (03/13/2024 2:52 PM EST) Only the most recent of2 resultswithin the time period is included. White Blood Count 7.5 4.8 - 10.8 X10*3/uL [facility] Red Blood Count 4.75 4.20 - 5.50 X10*6/uL [facility] Hemoglobin 14.2 12.0 - 16.0 g/dl [facility] Hematocrit 41.9 37.0 - 47.0 % [facility] Mean Corpuscular Volume 88.2 80.0 - 98.0 fL [facility] Mean Corpuscular Hemoglobin 29.9 27.0 - 33.0 pg [facility] Mean Corpuscular HGB Conc 33.9 31.0 - 35.0 g/dl [facility] Red Cell Distribution Width 14.5 11.0 - 16.0 % [facility] Platelet Count 148(L) 160 - 400 X10*3/uL [facility] Mean Platelet Volume 9.7 9.4 - 12.3 fL [facility] Neutrophils Percent Auto 76.3(H) 45 - 73 % [facility] Imm Gran Pct Auto 0.3 0.0 - 0.4 % [facility] Lymphocytes Percent Auto 17.8(L) 20 - 40 % [facility] Monocytes Percent Auto 3.3 2 - 11 % [facility] Eosinophils Percent Auto 1.9 0 - 4 % [facility] Basophils Percent Auto 0.4 0 - 2 % [facility] NRBC Pct Auto 0.0 0.0 - 0.2 /100WBC [facility] Neutrophils Absolute Auto 5.8 2.0 - 8.3 x10*3/uL [facility] Imm Gran Abs Auto 0.02 0.00 - 0.03 X10*3/uL [facility] Lymphocytes Absolute Auto 1.3 1.2 - 4.9 X10*3/uL [facility] Monocytes Absolute Auto 0.3 0.1 - 1.2 X10*3/uL [facility] Eosinophils Absolute Auto 0.1 0.0 - 0.4 X10*3/uL [facility] Basophils Absolute Auto 0.0 0.0 - 0.2 X10*3/uL [facility] NRBC Abs Auto 0.000 0.0 - 0.012 X10*3/uL [facility] 03/13/2024 2:52 PM EST 03/13/2024 3:00 PM EST us Generic External Data Provider LAB BLOOD ORDERAB LES Edited Result - Final [facility] [address] [place] [phone] * Prothrombin Time-INR (03/13/2024 2:52 PM EST) Prothrombin Time 11.1 10.9 - 12.4 SEC [facility] INTERNATIONAL NORM RATIO 1.0 0.9 - 1.1 [facility] Comment:INTERNATIONAL NORMAL IZED RATIO (INR) REFERENCE RANGES Reference RangeFor patients not on anticoagulant therapy: 0.9 - 1.1INR ranges for oral anticoagulanttherapy:For prevention and treatment of venous thrombosis and pulmonary embolism: 2.0 - 3.0For acute myocardial infarction with aspirin therapy: 2.0 - 3.0For acute myocardial infarction without aspirin therapy: 3.0 - 4.0For patients with mechanical prosthetic heart valves: 2.5 - 3.5 03/13/2024 2:52 PM EST 03/13/2024 3:00 PM EST Generic External Data Provider LAB BLOOD ORDERAB LES Final Result Performing Organization Address [facility] de Phone Number [facility] [address] [place] [phone] * B Type Natriuretic Peptide (BNP) (03/13/2024 2:52 PM EST) Pathologist [facility] B Type Natriuretic Peptide <10 <100 pg/mL [facility] Comment:For those patients w ho are being treated with Natrecor(nesiritide, recombinant BNP), BNP testing should beperformed at least two hours post treatment in order toensure that only endogenous levels of BNP are detected. 03/13/2024 2:52 PM EST 03/13/2024 3:00 PM EST [employer] External Data Provider LAB BLOOD ORDERAB LES Final Result Performing Organization Address [facility] de Phone Number [facility] [address] [place] [phone] * (ABNORMAL) POCT Urinalysis (02/22/2024 4:33 PM EST) Color, UA Dark Kylie Clarity, UA Hazy Glucose, UA 2+ 125++ Bilirubin, UA Few 15 Ketones, UA Positive Spec Grav, UA 1.030 Blood, UA Positive(A) Negative, None Detected pH, UA 6.0 Protein, UA 1+ 70+ Urobilinogen, UA 0.2 Leukocytes, UA Negative Negative, Rare, Trace Nitrite, UA Negative Negative, None Detected Appearance, UA other QC Media Lot # [id number] Lot# Expiration Date ,120 Urine 02/22/2024 4:33 PM EST us Giana Isbell MD POINT OF CARE TEST ENTER/ED IT ORDERABLES Final Result * BI Mammogram Diagnostic Tomosynthesis Left (02/22/2024 12:55 PM EST) Anatomical Region Laterality Modality Breast Left Mammography 02/22/2024 12:5 5 PM EST Narrative 02/23/2024 9:49 AM EST ? [facility] ?[address] ?[place] [address] ? Mammography Report ? Signed with Addenda ? Patient: Tory Bush ?MR#: [id number] ?? [id number] ? : 1965 ?Acct:[id number] ? Age/Sex: 58 / F ?ADM Date: /15/25 ? Loc: HO.MRI ? Attending Dr: Rhona Badillo MD ? Ordering Physician: Rhona Badillo MD ?Results: 1Negati ?? ve ? Date of Service: 02/21/ ?Follow Up: 1 Year From Orig ?? inal Mammogram ? Procedure(s): MM tomosynthesis diagnostic LT ?? Accession Number(s): [id number] ? cc: Giana Isbell MD; Rhona Badillo MD ?ADDENDUM ? ADDENDUM #1 ? ADDENDUM: ?? Left breast MRI core needle biopsy: Small intraductal papilloma ?? formation. No atypia or malignancy identified. ? Intraductal papilloma is high risk and concordant. Recommend breast ?? surgical consultation for possible excision and further management. ? Results and recommendations communicated to Dr. Schreiber patients breast ?? surgeon and Dr Badillo. ? Electronically signed by: ??Carissa Raza DO ??03/02/2024 04:34 PM EST ? Addendum Dictated By: ?Craissa Raza, DO ? Addendum Signed By: ? <Electronically signed by Carissa Raza, DO in OV> ? 03/02/24 1634 ?? Addendum Cosigned By: ? DD/ ? TD/TT: 02/22/24 ? EXAMINATION: ?? MR GUIDED VACUUM-ASSISTED CORE BIOPSY BREAST, LEFT ?? MM DIGITAL MAMMOGRAPHY POST BIOPSY, LEFT ? CLINICAL INFORMATION: ?? Recently diagnosed right breast cancer. Enhancing mass in the left ?? breast on prior MRI for which biopsy was recommended.. ? COMPARISON: ?? Comparison is made with available prior examinations. ? TECHNIQUE/PROCEDURE: ?? Informed consent was obtained from the patient after discussion of the ?? benefits, risks, and alternatives to biopsy today. Patient appeared to ?? understand. Gave opportunity for questions. Patient signed consent form. ? Biopsy is performed under MRI guidance using breast surface coil. ? Imaging is performed without and with use of gadolinium contrast. Atec ?? introducer localization system is used with grid. ? LESION: ?? Left retroareolar lower outer breast anterior depth.. ? LOCAL ANESTHESIA: ?? 6 mL 1% lidocaine; ??4 mL 1% lidocaine with epinephrine. ? NEEDLE: ?? Suros Atec 9-gauge vacuum assisted core biopsy device. ? APPROACH: ?? Lateral. ? CORES: ?? 8. ? CLIP: ?? cylinder shaped. ? POSTPROCEDURE UNILATERAL DIGITAL MAMMOGRAM: ?? Mammography is performed using digital mammography in CC and ML views. ?? There are scattered areas of fibroglandular density (ACR BI-RADS breast ?? composition Category b). The clip marker is in position. No gross ?? hematoma. ? The patient tolerated the procedure well. No immediate complications. ?? Home instructions reviewed with the patient. Final pathology results ?? are pending. ? MM/MM tomosynthesis diagnostic LT ?? IMPRESSION: ?? 1. Status post MRI guided vacuum-assisted core biopsy left breast with ?? clip placement. ?? 2. Final pathology results pending. An addendum report will be issued. ? Electronically signed by: ??Carissa Raza DO ??02/23/2024 09:47 AM EST ? Dictated By: ?Carissa Raza DO ? Signed By: ?<Electronically signed by Carissa Raza DO in OV> ? 02/23/24 0947 ? DD/ 1255 ? TD/TT: 02/22/24 1305 ? Cytotechnologist/Histotechnologist: ? Procedure Note Donmichelle, Image - 03/02/2024 [place] [address] Mammography Report Signed with Fani Patient: Pat Bush#: [id number] : 1965Acct:[id number] Age/Sex: 58 / FADM Date: 02/22/24 Loc: .MRI Attending Dr: Rhona Badillo MD Ordering Physician: Rhona Badillo MDResults: 1Negati ve Date of Service: 02/22/24Follow Up: 1 Year From [facility] ina Mammogram Procedure(s): MM tomosynthesis diagnostic LT Accession Number(s): [id number] cc: Giana Isbell MD; Rhona Badillo MD ADDENDUM ADDENDUM #1 ADDENDUM: Left breast MRI core needle biopsy: Small intraductal papilloma formation. No atypia or malignancy identified. Intraductal papilloma is high risk and concordant. Recommend breast surgical consultation for possible excision and further management. Results and recommendations communicated to Dr. Schreiber patients breast surgeon and Dr Badillo. Electronically signed by: Carissa Raza DO 03/02/2024 04:34 PM EST RP Addendum Dictated By: Carissa Raza DO Addendum Signed By: <Electronically signed by DO Shira in OV> 03/02/24 1634 Addendum Cosigned By: DD/ TD/TT: 02/22/24 EXAMINATION: MR GUIDED VACUUM-ASSISTED CORE BIOPSY BREAST, LEFT MM DIGITAL MAMMOGRAPHY POST BIOPSY, LEFT CLINICAL INFORMATION: Recently diagnosed right breast cancer. Enhancing mass in the left breast on prior MRI for which biopsy was recommended.. COMPARISON: Comparison is made with available prior examinations. TECHNIQUE/PROCEDURE: Informed consent was obtained from the patient after discussion of the benefits, risks, and alternatives to biopsy today. Patient appeared to understand. Gave opportunity for questions. Patient signed consent form. Biopsy is performed under MRI guidance using breast surface coil. Imaging is performed without and with use of gadolinium contrast. [employer] introducer localization system is used with grid. LESION: Left retroareolar lower outer breast anterior depth.. LOCAL ANESTHESIA: 6 mL 1% lidocaine; 4 mL 1% lidocaine with epinephrine. NEEDLE: [employer] 9-gauge vacuum assisted core biopsy device. APPROACH: Lateral. CORES: 8. CLIP: cylinder shaped. POSTPROCEDURE UNILATERAL DIGITAL MAMMOGRAM: Mammography is performed using digital mammography in CC and ML views. There are scattered areas of fibroglandular density (ACR BI-RADS breast composition Category b). The clip marker is in position. No gross hematoma. The patient tolerated the procedure well. No immediate complications. Home instructions reviewed with the patient. Final pathology results are pending. MM/MM tomosynthesis diagnostic LT IMPRESSION: 1. Status post MRI guided vacuum-assisted core biopsy left breast with clip placement. 2. Final pathology results pending. An addendum report will be issued. Electronically signed by: Carissa Raza DO 02/23/2024 09:47 AM EST RP Dictated By: Carissa Raza DO Signed By: <Electronically signed by Carissa Raza DO in OV> 02/23/24 0947 DD/ 125 TD/TT: 02/22/24 130 Cytotechnologist/Histotechnologist: us [facility] External Provider IMG BI PROCEDURES Edited Result - Final * Hematoxylin and Eosin Stain (02/22/2024 12:27 PM EST) Only the most recent of2 resultswithin the time period is included. 02/22/2024 12:2 7 PM EST 02/22/2024 1:32 PM EST [facility] - 02/24/2024 2:51 PM EST ----- ------- Name: Tory Bush ?Age/Sex: 58/F ? : 1965 Unit#: [id number] ?? Attend Dr: Rhona Badillo MD ?Re02/22/24 ?Status: DEP REF ? Location: HO.MRI ?Disch: ? ----- ------- SPEC : [id number] ?RECD: 02/22/24-1331 ? STATUS: ??SOUT ? REQ NUM: [id number] ? TEQUILA: 02/22/24-1227 ? SUBM DR: Carissa Raza DO ? ENTERED: ??02/22/241 ?SP TYPE: Surgical ? OTHR DR: Giana Isbell MD ?Rhona Badillo MD ORDERED: ??HE Stain/2, Gross Micro L4 ? COMMENTS: As per the specimen requisition slip the specimen is ?collected at 1227 and placed in formalin at 1240. ? Diagnosis ?? Breast, left lesion, biopsy: ??Benign breast tissue with fibrocystic changes, apocrine ?? metaplasia and small intraductal papilloma formation; no atypia or malignancy identified. ?Clinical History Left breast lesion ?Microscopic Description Microscopic sections reviewed. ? Material Received ?? Left breast MRI guided biopsy ? Gross Description Received in formalin labeled ?left breast tissue? are multiple irregular and cylindrical portions of washburn-white and peterson-yellow lobular fibrofatty breast tissue ranging from 0.3- 3.0 cm in greatest dimension and aggregating 3.0 x 2.5 x 0.45 cm, submitted in toto in cassettes A1 and A2. ??CEDS This case was reviewed intradepartmentally. Copies To: ?? Giana Isbell MD ?? [facility] ?? [address] ?? [place] [address] ?? [phone] ?? Rhona Badillo MD ?? [facility] [place] [address] ?? [place] [address] ?? [phone] ? CONTINUED ON NEXT PAGE ----- ------- Name: Tory Bush ?Age/Sex: 58/F ? : 1965 Unit#: [id number] ?? Attend Dr: Rhona Badillo MD ?Re02/22/24 ?Status: DEP REF ? Location: HO.MRI ?Disch: ? ----- ------- SPEC : [id number] ?RECD: 02/22/24-2 ? STATUS: ??SOUT ? REQ NUM: [id number] ? TEQUILA: 02/22/24-1227 ? SUBM DR: Carissa Raza DO ? ENTERED: ??02/22/24-1341 ?SP TYPE: Surgical ? OTHR DR: Giana Isbell MD ?Rhona Badillo MD ORDERED: ??HE Stain/2, Gross Micro L4 ? COMMENTS: As per the specimen requisition slip the specimen is ?collected at 1227 and placed in formalin at 1240. Copies To: ??(Continued) ?? Carissa Raza DO ?? [address] ?? [place] [address] ?? [phone] ----- ------- Signed (signature on file) Osman Ríos MD 02/24/24 8254 ? ----- ------- ? END OF REPORT ? us Generic External Data Provider LAB BLOOD ORDERAB LES Final Result [facility] [address] [place] [address] [phone] * BI MR Guided Breast Biopsy Left (02/22/2024 11:14 AM EST) Anatomical Region Laterality Modality Breast Left Magnetic Resonan ce 02/22/2024 11:1 4 AM EST Narrative 02/23/2024 9:50 AM EST ? [facility] ?[address] ?[place] [address] ? Magnetic Resonance Report ? Signed with Addenda ? Patient: Tory Bush ?MR#: [id number] ?? [id number] ? : 1965 ?Acct:[id number] ? Age/Sex: 58 / F ?ADM Date: 02/22/24 ? Loc: HO.MRI ? Attending Dr: Rhona Badillo MD ? Ordering Physician: Rhona Badillo MD ?? Date of Service: 02/22/24 ?? Procedure(s): MR guided breast biopsy LT ?? Accession Number(s): [id number] ? cc: Giana Isbell MD; Rhona Badillo MD ?ADDENDUM ? ADDENDUM #1 ? ADDENDUM: ?? Left breast MRI core needle biopsy: Small intraductal papilloma ?? formation. No atypia or malignancy identified. ? Intraductal papilloma is high risk and concordant. Recommend breast ?? surgical consultation for possible excision and further management. ? Results and recommendations communicated to Dr. Schreiber patients breast ?? surgeon and Dr Badillo. ? Electronically signed by: ??Carissa Raza DO ??03/02/2024 04:34 PM EST ?? RP ? Addendum Dictated By: ?Carissa Raza, DO ? Addendum Signed By: ? <Electronically signed by Carissa Raza, DO in OV> ? 03/02/24 1634 ?? Addendum Cosigned By: ? DD/ ? TD/TT: 02/22/24 ? EXAMINATION: ?? MR GUIDED VACUUM-ASSISTED CORE BIOPSY BREAST, LEFT ?? MM DIGITAL MAMMOGRAPHY POST BIOPSY, LEFT ? CLINICAL INFORMATION: ?? Recently diagnosed right breast cancer. Enhancing mass in the left ?? breast on prior MRI for which biopsy was recommended.. ? COMPARISON: ?? Comparison is made with available prior examinations. ? TECHNIQUE/PROCEDURE: ?? Informed consent was obtained from the patient after discussion of the ?? benefits, risks, and alternatives to biopsy today. Patient appeared to ?? understand. Gave opportunity for questions. Patient signed consent form. ? Biopsy is performed under MRI guidance using breast surface coil. ? Imaging is performed without and with use of gadolinium contrast. Atec ?? introducer localization system is used with grid. ? LESION: ?? Left retroareolar lower outer breast anterior depth.. ? LOCAL ANESTHESIA: ?? 6 mL 1% lidocaine; ??4 mL 1% lidocaine with epinephrine. ? NEEDLE: ?? Suros Atec 9-gauge vacuum assisted core biopsy device. ? APPROACH: ?? Lateral. ? CORES: ?? 8. ? CLIP: ?? cylinder shaped. ? POSTPROCEDURE UNILATERAL DIGITAL MAMMOGRAM: ?? Mammography is performed using digital mammography in CC and ML views. ?? There are scattered areas of fibroglandular density (ACR BI-RADS breast ?? composition Category b). The clip marker is in position. No gross ?? hematoma. ? The patient tolerated the procedure well. No immediate complications. ?? Home instructions reviewed with the patient. Final pathology results ?? are pending. ? MR/MR guided breast biopsy LT ?? IMPRESSION: ?? 1. Status post MRI guided vacuum-assisted core biopsy left breast with ?? clip placement. ?? 2. Final pathology results pending. An addendum report will be issued. ? Electronically signed by: ??Carissa Raza DO ??02/23/2024 09:47 AM EST ?? RP ? Dictated By: ?Carissa Raza DO ? Signed By: ?<Electronically signed by Carissa Raza, DO in OV> ? 02/23/24 0947 ? DD/ 1114 ? TD/TT: 02/22/24 1230 ? Cytotechnologist/Histotechnologist: ? Procedure Note Donotuseinterpreter, Image - 03/02/[address] [address] Magnetic Resonance Report Signed with Addcordell Patient: Pat Bush#: [id number] : 1965Acct:[id number] Age/Sex: 58 / FADM Date: 02/22/24 Loc: HO.MRI Attending Dr: Rhona Badillo MD Ordering Physician: Rhona Badillo MD Date of Service: 02/22/24 Procedure(s): MR guided breast biopsy LT Accession Number(s): [id number] cc: Giana Isbell MD; Rhona Badillo MD ADDENDUM ADDENDUM #1 ADDENDUM: Left breast MRI core needle biopsy: Small intraductal papilloma formation. No atypia or malignancy identified. Intraductal papilloma is high risk and concordant. Recommend breast surgical consultation for possible excision and further management. Results and recommendations communicated to Dr. Schreiber patients breast surgeon and Dr Badillo. Electronically signed by: Carissa Raza DO 03/02/2024 04:34 PM EST Addendum Dictated By: Carissa Raza DO Addendum Signed By: <Electronically signed by DO Shira in OV> 03/02/24 1634 Addendum Cosigned By: DD/ TD/TT: 02/22/24 EXAMINATION: MR GUIDED VACUUM-ASSISTED CORE BIOPSY BREAST, LEFT MM DIGITAL MAMMOGRAPHY POST BIOPSY, LEFT CLINICAL INFORMATION: Recently diagnosed right breast cancer. Enhancing mass in the left breast on prior MRI for which biopsy was recommended.. COMPARISON: Comparison is made with available prior examinations. TECHNIQUE/PROCEDURE: Informed consent was obtained from the patient after discussion of the benefits, risks, and alternatives to biopsy today. Patient appeared to understand. Gave opportunity for questions. Patient signed consent form. Biopsy is performed under MRI guidance using breast surface coil. Imaging is performed without and with use of gadolinium contrast. [facility] introducer localization system is used with grid. LESION: Left retroareolar lower outer breast anterior depth.. LOCAL ANESTHESIA: 6 mL 1% lidocaine; 4 mL 1% lidocaine with epinephrine. NEEDLE: [employer] 9-gauge vacuum assisted core biopsy device. APPROACH: Lateral. CORES: 8. CLIP: cylinder shaped. POSTPROCEDURE UNILATERAL DIGITAL MAMMOGRAM: Mammography is performed using digital mammography in CC and ML views. There are scattered areas of fibroglandular density (ACR BI-RADS breast composition Category b). The clip marker is in position. No gross hematoma. The patient tolerated the procedure well. No immediate complications. Home instructions reviewed with the patient. Final pathology results are pending. MR/MR guided breast biopsy LT IMPRESSION: 1. Status post MRI guided vacuum-assisted core biopsy left breast with clip placement. 2. Final pathology results pending. An addendum report will be issued. Electronically signed by: Carissa Raza DO 02/23/2024 09:47 AM EST Dictated By: Carissa Raza DO Signed By: <Electronically signed by Carissa Raza DO in OV> 02/23/24 0947 DD/ 1114 TD/TT: 02/22/24 1230 Cytotechnologist/Histotechnologist: [facility] External Provider IMG MRI PROCEDURES Edited Result - Final * IR cvc insert tunnel w prt/cathead worker (02/16/2024 7:46 AM EST) Anatomical Region Laterality Modality X-Ray Angiograph y 02/16/2024 7:46 AM EST Narrative 02/24/2024 2:22 PM EST ? [facility] ?[address] ?[place] [address] ?Interventional Radiology Rpt ? Signed ? Patient: Tory Bush ?MR#: [id number] ?? [id number] ? : 1965 ?Acct:[id number] ? Age/Sex: 58 / F ?ADM Date: 01/09/25 ? Loc: HO.SSS ? Attending Dr: Rhona Badillo MD ? Ordering Physician: Rhona Badillo MD ?? Date of Service: 02/16/24 ?? Procedure(s): IR cvc insert tunnel w prt/cathead worker ?? Accession Number(s): [id number] ? cc: Giana Isbell MD; Rhona Badillo MD ? CLINICAL HISTORY: ?? Right breast cancer. The patient presents to interventional radiology ?? for placement of a port for chemotherapy. ? PROCEDURES: ?? 1. Real-time ultrasound-guided access into the left internal jugular ?? vein after documentation of selected vessel patency, and permanent ?? image storing in the patient records. ?? 2. Placement of a 6.6 Italian single-lumen power port. ? CLINICIAN: ?? Fortino Muniz PA-C ? MEDICATIONS: ?? - Versed 1.5 mg, Fentanyl 75 mcg, Lidocaine 1% 10 mL SQ ?? -Antibiotics: Ancef 2g ?? -For additional details, please see nursing flowsheet. ? Complications: None. ?? Estimated blood loss: <5 ml ?? Specimens: None. ?? Contrast: None. ? Fluoroscopy time: 1.5 min ?? MODERATE SEDATION TIME: 40 min ? PROCEDURE NOTE: ?? The procedure, risks, benefits, and alternatives were carefully ?? explained to the patient and written informed consent was obtained. The ?? patient was placed supine on the fluoroscopy table. A timeout was ?? performed. The left neck and chest was prepped and draped in usual ?? sterile fashion. Maximum barrier technique was utilized. ? Local anesthesia was administered to the access site with 1% lidocaine. ?? Under ultrasound guidance, the left internal jugular vein was accessed ?? with a 5 fr micropuncture set. ??A 0.035 in wire was advanced into the ?? IVC. A peel-away sheath was advanced over the wire and into the SVC, ?? and the wire was removed. Next, subcutaneous lidocaine was administered ?? to the chest. The port pocket was created after the skin incision, ?? utilizing blunt dissection. Using blunt dissection, a subcutaneous ?? tunnel was created that connects from the port pocket to the venotomy ?? site. Through the peel-away sheath, the 6.6 Italian port catheter was ?? placed. The catheter position was verified with fluoroscopy to be at ?? the superior vena cava/right atrial junction. The port was connected to ?? the catheter and was placed in the pocket. The venotomy site was closed ?? with a 3-0 Vicryl subcutaneous suture. The port incision site was ?? closed with interrupted 3-0 Vicryl subcutaneous sutures and surgical ?? glue. Prior to closing the skin, 1 g of Ancef solution was placed in ?? the pocket. ??The port was tested, flushed, and packed with heparin per ?? routine protocol. The patient tolerated the procedure well. ? The patient was stable after the procedure and was transferred to the ?? PACU. ? The procedure was performed under moderate sedation and with a ?? dedicated nurse with continuous monitoring of vital signs. ? A permanent image of the ultrasound the neck and fluoroscopic image of ?? the chest was saved and sent to PACS. ? FINDINGS: ?? 1. Patent left internal jugular vein ?? 2. Placement of a 6.6 Italian single lumen power port. ?? 3. Port flushes and aspirates very well with a 10 mL syringe. No ?? pneumothorax. ? IR/IR cvc insert tunnel w prt/cathead worker ?? IMPRESSION: ?? Placement of a 6.6 Italian single-lumen power port. ? PLAN: ?? - The patient will be discharged home when stable by sedation protocol. ?? - Port may be used immediately. ? This procedure was performed by Fortino Muniz PA-C, and directly ?? supervised by Dr. Pan ? Electronically signed by: ??Jose R Pan MD ??02/24/2024 02:18 PM EST RP ? Dictated By: ?Fortino Muniz ? Signed By: ?<Electronically signed by Fortino Muniz in OV> ? 02/24/24 1418 ?<Electronically signed by Jose R Pan MD in OV> ? 02/24/24 1421 ? DD/ 0746 ? TD/TT: 02/16/24 0934 ? Cytotechnologist/Histotechnologist: ? Procedure Note Eliud Chambers - 02/24/[address] [address] Interventional Radiology Rpt Signed Patient: Sammy BushBertha#: [id number] : 1965Acct:[id number] Age/Sex: 58 / FADM Date: 02/16/24 Loc: HO.SSS Attending Dr: Rhona Badillo MD Ordering Physician: Rhona Badillo MD Date of Service: 02/16/24 Procedure(s): IR cvc insert tunnel w prt/cathead worker Accession Number(s): [id number] cc: Giana Isbell MD; Rhona Badillo MD CLINICAL HISTORY: Right breast cancer. The patient presents to interventional radiology for placement of a port for chemotherapy. PROCEDURES: 1. Real-time ultrasound-guided access into the left internal jugular vein after documentation of selected vessel patency, and permanent image storing in the patient records. 2. Placement of a 6.6 Italian single-lumen power port. CLINICIAN: Fortino Muniz PA-C MEDICATIONS: - Versed 1.5 mg, Fentanyl 75 mcg, Lidocaine 1% 10 mL SQ -Antibiotics: Ancef 2g -For additional details, please see nursing flowsheet. Complications: None. Estimated blood loss: <5 ml Specimens: None. Contrast: None. Fluoroscopy time: 1.5 min MODERATE SEDATION TIME: 40 min PROCEDURE NOTE: The procedure, risks, benefits, and alternatives were carefully explained to the patient and written informed consent was obtained. The patient was placed supine on the fluoroscopy table. A timeout was performed. The left neck and chest was prepped and draped in usual sterile fashion. Maximum barrier technique was utilized. Local anesthesia was administered to the access site with 1% lidocaine. Under ultrasound guidance, the left internal jugular vein was accessed with a 5 fr micropuncture set. A 0.035 in wire was advanced into the IVC. A peel-away sheath was advanced over the wire and into the SVC, and the wire was removed. Next, subcutaneous lidocaine was administered to the chest. The port pocket was created after the skin incision, utilizing blunt dissection. Using blunt dissection, a subcutaneous tunnel was created that connects from the port pocket to the venotomy site. Through the peel-away sheath, the 6.6 Italian port catheter was placed. The catheter position was verified with fluoroscopy to be at the superior vena cava/right atrial junction. The port was connected to the catheter and was placed in the pocket. The venotomy site was closed with a 3-0 Vicryl subcutaneous suture. The port incision site was closed with interrupted 3-0 Vicryl subcutaneous sutures and surgical glue. Prior to closing the skin, 1 g of Ancef solution was placed in the pocket. The port was tested, flushed, and packed with heparin per routine protocol. The patient tolerated the procedure well. The patient was stable after the procedure and was transferred to the PACU. The procedure was performed under moderate sedation and with a dedicated nurse with continuous monitoring of vital signs. A permanent image of the ultrasound the neck and fluoroscopic image of the chest was saved and sent to PACS. FINDINGS: 1. Patent left internal jugular vein 2. Placement of a 6.6 Italian single lumen power port. 3. Port flushes and aspirates very well with a 10 mL syringe. No pneumothorax. IR/IR cvc insert tunnel w prt/cathead worker IMPRESSION: Placement of a 6.6 Italian single-lumen power port. PLAN: - The patient will be discharged home when stable by sedation protocol. - Port may be used immediately. This procedure was performed by Fortino Muniz PA-C, and directly supervised by Dr. Pan Electronically signed by: Jose R Pan MD 02/24/2024 02:18 PM EST Dictated By: Fortino Muniz Signed By: <Electronically signed by Fortino Muniz in OV> 02/24/24 1418 <Electronically signed by Jose R aPn MD in OV> 02/24/24 1421 DD/ 0746 TD/TT: 02/16/24 0934 Cytotechnologist/Histotechnologist: [facility] External Provider IMG IR PROCEDURES Edited Result - Final * (ABNORMAL) Glucose, Whole Blood (02/16/2024 7:06 AM EST) Glucose, Whole Blood 142(H) 60 - 115 mg/dL [facility] Comment:METER #: [id number] 02/16/2024 7:06 AM EST 02/16/2024 7:11 AM EST Generic External Data Provider LAB BLOOD ORDERAB LES Final Result [facility] [address] [place] [phone] * Magnesium (02/15/2024 2:03 PM EST) Magnesium 2.2 1.6 - 2.6 mg/dL [facility] 02/15/2024 2:03 PM EST 02/15/2024 2:03 PM EST us Generic External Data Provider LAB BLOOD ORDERAB LES Final Result [facility] [address] [place] [address] [phone] * (ABNORMAL) Comprehensive Metabolic Panel (02/15/2024 2:03 PM EST) Path[place] [facility] Sodium 145 135 - 145 mmol/L [facility] Potassium 4.2 3.3 - 5.1 mmol/L [facility] Chloride 109(H) 96 - 108 mmol/L [facility] Carbon Dioxide 28 22 - 29 mmol/L [facility] Anion Gap 12 12 - 20 [facility] Urea Nitrogen (BUN) 14 9 - 16 mg/dL [facility] Creatinine, Serum 0.89 0.5 - 1.4 mg/dL [facility] Estimated Glomerular Filt Rate >60 [facility] Comment:Chronic Kidney Disea se: Estimated GFR < 60 mL/min/[id number] Kidney Disease: Estimated GFR < 15 mL/min/1.73m2 Glucose 94 60 - 115 mg/dL [facility] Calcium 8.9 8.4 - 10.2 mg/dL [facility] Bilirubin, Total 0.4 0.0 - 1.0 mg/dL [facility] Aspartate Amino Transferase 36(H) 5 - 31 U/L [facility] Alanine Aminotransferase 33(H) 0 - 31 U/L [facility] Total Protein 7.1 6.5 - 8.0 g/dL [facility] Albumin Level 4.2 3.5 - 5.0 g/dL [facility] Alkaline Phosphatase 122(H) 39 - 117 U/L [facility] 02/15/2024 2:03 PM EST 02/15/2024 2:03 PM EST us Generic External Data Provider LAB BLOOD ORDERAB LES Final Result [facility] [address] [facility] [place] [address] [phone] * BI US Breast Limited Left (02/10/2024 12:15 PM EST) Anatomical Region Laterality Modality Breast Left Ultrasound 02/10/2024 12:1 5 PM EST Narrative 02/10/2024 3:42 PM EST ? [facility] [place] ? [address] ?[place] [address] ? Ultrasound Report ? Signed ? Patient: Tory Bush ?MR#: [id number] ?? [id number] ? : 1965 ?Acct:[id number] ? Age/Sex: 58 / F ?ADM Date: 02/10/24 ? Loc: HO.MAMMO ? Attending Dr: Rhona Badillo MD ? Ordering Physician: Rhona Badillo MD ?? Date of Service: 02/10/24 ?? Procedure(s): US breast LT limited mamm only ?? Accession Number(s): [id number] ? cc: Giana Isbell MD; Rhona Badillo MD ? EXAMINATION: ?? US DIAGNOSTIC ULTRASOUND BREAST, LEFT ? CLINICAL INFORMATION: ? Biopsy-proven right breast invasive ductal carcinoma. ?? Recent MRI demonstrated a 9 mm enhancing mass in the lower outer left ?? breast anterior depth. Second Look MRI directed ultrasound is ?? recommended for further evaluation. ? COMPARISON: ?? Comparison is made with relevant prior imaging. ? TECHNIQUE: ?? Ultrasound of the breast is performed with real-time hugo scale imaging ?? and color Doppler. ? FINDINGS: ?? Targeted color Doppler ultrasound scanning in the retroareolar region ?? lower central breast at 6:00 and lower outer quadrant demonstrates ?? multiple ectatic ducts. There is no suspicious sonographic abnormality. ?? There is no sonographic correlate for the 9 mm enhancing oval mass seen ?? on MRI. ? Results are provided to the patient at time of visit by the ?? technologist. ? US/US breast LT limited mamm only ?? IMPRESSION: ?? Multiple ectatic ducts without sonographic abnormality. No MRI ?? correlate seen sonographically. ?? Recommend 6 month follow-up MRI for further evaluation of stability. ? Recommend excision and further management with breast surgeon and ?? oncology for known right breast malignancy. ? ASSESSMENT: ? BI-RADS 2: Benign ? RECOMMENDATION: ?? Recommend clinical management and follow-up for known right breast ?? biopsy-proven malignancy. ? Recommend 6 month follow-up MRI for further evaluation of stability ?? left breast enhancing mass. ? This patient's information was entered into a reminder system with a ?? target due date for their next mammogram. ? Electronically signed by: ??Carissa Raza DO ??02/10/2024 03:39 PM EST ?? RP ? Dictated By: ?Carissa Raza DO ? Signed By: ?<Electronically signed by Carissa Raza DO in OV> ? 02/10/24 1539 ? DD/ 1215 ? TD/TT: 02/10/24 1231 ? Cytotechnologist/Histotechnologist: ? Procedure Note Donmichelle, Image - 02/10/2024 [place] [facility] [address] [place] [address] Ultrasound Report Signed Patient: Pta Bush#: [id number] : 1965Acct:[id number] Age/Sex: 58 / FADM Date: 02/10/24 Loc: HO.MAMMO Attending Dr: Rhona Badillo MD Ordering Physician: Rhona Badillo MD Date of Service: 02/10/24 Procedure(s): US breast LT limited mamm only Accession Number(s): [id number] cc: Giana Isbell MD; Rhona Badillo MD EXAMINATION: US DIAGNOSTIC ULTRASOUND BREAST, LEFT CLINICAL INFORMATION: Biopsy-proven right breast invasive ductal carcinoma. Recent MRI demonstrated a 9 mm enhancing mass in the lower outer left breast anterior depth. Second Look MRI directed ultrasound is recommended for further evaluation. COMPARISON: Comparison is made with relevant prior imaging. TECHNIQUE: Ultrasound of the breast is performed with real-time hugo scale imaging and color Doppler. FINDINGS: Targeted color Doppler ultrasound scanning in the retroareolar region lower central breast at 6:00 and lower outer quadrant demonstrates multiple ectatic ducts. There is no suspicious sonographic abnormality. There is no sonographic correlate for the 9 mm enhancing oval mass seen on MRI. Results are provided to the patient at time of visit by the technologist. US/US breast LT limited mamm only IMPRESSION: Multiple ectatic ducts without sonographic abnormality. No MRI correlate seen sonographically. Recommend 6 month follow-up MRI for further evaluation of stability. Recommend excision and further management with breast surgeon and oncology for known right breast malignancy. ASSESSMENT: BI-RADS 2: Benign RECOMMENDATION: Recommend clinical management and follow-up for known right breast biopsy-proven malignancy. Recommend 6 month follow-up MRI for further evaluation of stability left breast enhancing mass. This patient's information was entered into a reminder system with a target due date for their next mammogram. Electronically signed by: Carissa Raza DO 02/10/2024 03:39 PM EST Dictated By: Carissa Raza DO Signed By: <Electronically signed by Carissa Raza DO in OV> 02/10/24 1539 DD/ 1215 TD/TT: 02/10/24 1231 Cytotechnologist/Histotechnologist: [facility] External Provider IMG US PROCEDURES Edited Result - Final * (ABNORMAL) TSH W/Reflex to FT4 (02/06/2024 10:45 AM EST) TSH reflex Free T4 10.06(H) 0.32 - 4.0 uIU/mL [facility] Blood Venous blood specimen / Unknown 02/06/2024 10:45 AM EST 02/06/2024 10:45 AM EST Giana Isbell MD LAB BLOOD ORDERABLES Final Result [facility] [address] [place] [phone] * (ABNORMAL) T4, Free (02/06/2024 10:45 AM EST) Free T4 (Free Thyroxine) 0.68(L) 0.71 - 1.85 ng/dL [facility] 02/06/2024 10:4 5 AM EST 02/06/2024 10:45 AM EST us Generic External Data Provider LAB BLOOD ORDERAB LES Final Result [facility] [address] [place] [address] [phone] * BI MR Breast w and w/o Contrast Bilateral (02/06/2024 9:33 AM EST) Anatomical Region Laterality Modality Breast Bilateral Magnetic Resonan ce 02/06/2024 9:33 AM EST Narrative 02/10/2024 3:39 PM EST ? [facility] ?[address] ?[place] [address] ? Magnetic Resonance Report ? Signed with Addenda ? Patient: Tory Bush ?MR#: [id number] ?? [id number] ? : 1965 ?Acct:[id number] ? Age/Sex: 58 / F ?ADM Date: 02/06/24 ? Loc: HO.MRI ? Attending Dr: Pardeep Marcos MD ? Ordering Physician: Pardeep Marcos MD ?? Date of Service: 02/06/24 ?? Procedure(s): MR breast BI wo/w con ?? Accession Number(s): [id number] ? cc: Giana Isbell MD; Pardeep Marcos MD ?ADDENDUM ? ADDENDUM #1 ? IMPRESSION: ?? Right: ?? Biopsy-proven malignancy in the central outer right breast measuring up ?? to 48 mm patient is under the care of a breast surgeon and oncology for ?? excision and further management. ? Left: ?? Oval enhancing mass/area in the lower outer left breast anterior depth ?? measuring up to 9 mm. Second Look MRI directed ultrasound was performed ?? January 18, 2024 and demonstrated only ectatic ducts and normal ?? tissue. No sonographic correlate was seen. ? ASSESSMENT: ?? LEFT BREAST: BI-RADS 4 suspicious biopsy recommended. Recommend MRI ?? biopsy for confirmation. ? RIGHT BREAST: BI-RADS 6 biopsy proven known malignancy. The patient is ?? under the care of a breast surgeon and oncology for excision and ?? further management. ? RECOMMENDATIONS: ?? Recommend MRI biopsy left breast enhancing mass for confirmation. ?? Recommend clinical follow-up for excision and management of known ?? biopsy-proven right breast cancer. ? These findings and recommendations were discussed with the patient's ?? breast surgeon and oncology team. ? Electronically signed by: ??Carissa Raza DO ??02/13/2024 10:35 AM EST ? Addendum Dictated By: ?Carissa Raza, DO ? Addendum Signed By: ? <Electronically signed by Carissa Raza, DO in OV> ? 01/06/25 1035 ?? Addendum Cosigned By: ? DD/ ? TD/TT: 02/06/24 ? EXAMINATION: ?? MR BREAST WITHOUT AND WITH CONTRAST, BILATERAL ? CLINICAL INFORMATION: ?? Recently diagnosed biopsy-proven right breast invasive ductal carcinoma ?? December 2023. Patient is under the care of oncology and breast surgeon ?? for excision and further treatment. ? COMPARISON: ?? Mammography and ultrasound January 18, 2024, January 04, 2024. ?? Mammography December 08, 2022 ? TECHNIQUE: ?? Imaging of the breast was performed using T1, T2 and fat saturated ?? techniques. Dynamic multiphase imaging was also performed after the ?? administration of intravenous gadolinium contrast agent. Computer ?? generated 3-D reconstruction was utilized by the radiologist in the ?? interpretation of this examination. ? FINDINGS: ?? There is heterogeneous fibroglandular breast tissue with moderate ?? background enhancement with scattered enhancing foci. ? LEFT BREAST: ?? Within the lower outer breast anterior depth series 1032 image 86/126 ?? there is an oval enhancing mass/area with nonenhancing internal ?? septations measuring 9 mm anterior to posterior by 4 mm transverse by 5 ?? mm superior to inferior. ?? No other suspicious enhancing masses or areas of nonmass enhancement. ?? No internal mammary or axillary adenopathy. ? RIGHT BREAST: ?? Within the central outer breast far posterior depth at 9:00 8 cm from ?? nipple there is a solid irregular mass measuring 48 mm anterior to ?? posterior by 26 mm transverse by 27 mm superior to inferior there is ?? internal susceptibility artifact from marker clip this is the site of ?? pathology proven recent biopsy of invasive ductal carcinoma. Series ?? 1032 image 79/126. ?? Upper outer quadrant intramammary normal-appearing lymph node series ?? 1032 image 64/126. ?? No other suspicious enhancing masses or areas of nonmass enhancement. ?? No internal mammary adenopathy or axillary adenopathy. ? Limited views of the chest and abdomen are unremarkable. ? MR/MR breast BI wo/w con ?? IMPRESSION: ?? Right: ?? Biopsy-proven malignancy in the central outer right breast measuring up ?? to 48 mm patient is under the care of a breast surgeon and oncology for ?? excision and further management. ? Left: ?? Oval enhancing mass/area in the lower outer left breast anterior depth ?? measuring up to 9 mm. Second Look MRI directed ultrasound was performed ?? January 18, 2024 and demonstrated only ectatic ducts and normal ?? tissue. No sonographic correlate was seen. ?? 6 month follow-up MRI is recommended for further evaluation of ?? stability. ? ASSESSMENT: ?? LEFT BREAST: BI-RADS 3 probably benign. Recommend 6 month follow-up MRI ?? for further evaluation of stability. ? RIGHT BREAST: BI-RADS 6 biopsy proven known malignancy. The patient is ?? under the care of a breast surgeon and oncology for excision and ?? further management. ? RECOMMENDATIONS: ?? Recommend 6 month follow-up MRI for further evaluation of stability ?? left breast enhancing area. ?? Recommend clinical follow-up for excision and management of known ?? biopsy-proven right breast cancer. ? Electronically signed by: ??Carissa Raza DO ??02/10/2024 03:36 PM EST ?? RP ? Dictated By: ?Carissa Raza DO ? Signed By: ?<Electronically signed by Carissa Raza, DO in OV> ? 02/10/24 1536 ? DD/ 0933 ? TD/TT: 02/06/24 1016 ? Cytotechnologist/Histotechnologist: ? Procedure Note Eliud Chambers - 02/13/[address] [place] [address] Magnetic Resonance Report Signed with Addenda Patient: Pat Bush#: [id number] : 1965Acct:[id number] Age/Sex: 58 / FADM Date: 02/06/24 Loc: HO.MRI Attending Dr: Pardeep Marcos MD Ordering Physician: Pardeep Marcos MD Date of Service: 02/06/24 Procedure(s): MR breast BI wo/w con Accession Number(s): [id number] cc: Giana Isbell MD; Pardeep Marcos MD ADDENDUM ADDENDUM #1 IMPRESSION: Right: Biopsy-proven malignancy in the central outer right breast measuring up to 48 mm patient is under the care of a breast surgeon and oncology for excision and further management. Left: Oval enhancing mass/area in the lower outer left breast anterior depth measuring up to 9 mm. Second Look MRI directed ultrasound was performed January 18, 2024 and demonstrated only ectatic ducts and normal tissue. No sonographic correlate was seen. ASSESSMENT: LEFT BREAST: BI-RADS 4 suspicious biopsy recommended. Recommend MRI biopsy for confirmation. RIGHT BREAST: BI-RADS 6 biopsy proven known malignancy. The patient is under the care of a breast surgeon and oncology for excision and further management. RECOMMENDATIONS: Recommend MRI biopsy left breast enhancing mass for confirmation. Recommend clinical follow-up for excision and management of known biopsy-proven right breast cancer. These findings and recommendations were discussed with the patient's breast surgeon and oncology team. Electronically signed by: Carissa Raza DO 02/13/2024 10:35 AM EST Addendum Dictated By: Carissa Raza DO Addendum Signed By: <Electronically signed by DO Shira in OV> 02/13/24 1035 Addendum Cosigned By: DD/ TD/TT: 02/06/24 EXAMINATION: MR BREAST WITHOUT AND WITH CONTRAST, BILATERAL CLINICAL INFORMATION: Recently diagnosed biopsy-proven right breast invasive ductal carcinoma December 2023. Patient is under the care of oncology and breast surgeon for excision and further treatment. COMPARISON: Mammography and ultrasound January 18, 2024, January 04, 2024. Mammography December 08, 2022 TECHNIQUE: Imaging of the breast was performed using T1, T2 and fat saturated techniques. Dynamic multiphase imaging was also performed after the administration of intravenous gadolinium contrast agent. Computer generated 3-D reconstruction was utilized by the radiologist in the interpretation of this examination. FINDINGS: There is heterogeneous fibroglandular breast tissue with moderate background enhancement with scattered enhancing foci. LEFT BREAST: Within the lower outer breast anterior depth series 1032 image 86/126 there is an oval enhancing mass/area with nonenhancing internal septations measuring 9 mm anterior to posterior by 4 mm transverse by 5 mm superior to inferior. No other suspicious enhancing masses or areas of nonmass enhancement. No internal mammary or axillary adenopathy. RIGHT BREAST: Within the central outer breast far posterior depth at 9:00 8 cm from nipple there is a solid irregular mass measuring 48 mm anterior to posterior by 26 mm transverse by 27 mm superior to inferior there is internal susceptibility artifact from marker clip this is the site of pathology proven recent biopsy of invasive ductal carcinoma. Series 1032 image 79/126. Upper outer quadrant intramammary normal-appearing lymph node series 1032 image 64/126. No other suspicious enhancing masses or areas of nonmass enhancement. No internal mammary adenopathy or axillary adenopathy. Limited views of the chest and abdomen are unremarkable. MR/MR breast BI wo/w con IMPRESSION: Right: Biopsy-proven malignancy in the central outer right breast measuring up to 48 mm patient is under the care of a breast surgeon and oncology for excision and further management. Left: Oval enhancing mass/area in the lower outer left breast anterior depth measuring up to 9 mm. Second Look MRI directed ultrasound was performed January 18, 2024 and demonstrated only ectatic ducts and normal tissue. No sonographic correlate was seen. 6 month follow-up MRI is recommended for further evaluation of stability. ASSESSMENT: LEFT BREAST: BI-RADS 3 probably benign. Recommend 6 month follow-up MRI for further evaluation of stability. RIGHT BREAST: BI-RADS 6 biopsy proven known malignancy. The patient is under the care of a breast surgeon and oncology for excision and further management. RECOMMENDATIONS: Recommend 6 month follow-up MRI for further evaluation of stability left breast enhancing area. Recommend clinical follow-up for excision and management of known biopsy-proven right breast cancer. Electronically signed by: Carissa Raza DO 02/10/2024 03:36 PM EST RP Dictated By: Carissa Raza DO Signed By: <Electronically signed by Carissa Raza DO in OV> 02/10/24 1536 DD/ 0933 TD/TT: 02/06/24 1016 Cytotechnologist/Histotechnologist: [facility] External Provider IMG MRI PROCEDURES Edited Result - Final * Surgical Pathology (01/18/2024 9:43 AM EST) us Historical Provider MD LAB PATHOLOGY ORDERABLES Final Result * US BREAST NDL CORE BIOPSY RT (01/18/2024 8:00 AM EST) Anatomical Region Laterality Modality Abdomen Ultrasound 01/18/2024 8:00 AM EST Narrative 01/18/2024 9:40 AM EST ? [facility] ? [address] ?[place] [address] ? Ultrasound Report ? Signed with Addenda ? Patient: Tory Bush ?MR#: [id number] ?? [id number] ? : 1965 ?Acct:[id number] ? Age/Sex: 58 / F ?ADM Date: 01/18/24 ? Loc: HO.MAMMO ? Attending Dr: Pardeep Marcos MD ? Ordering Physician: Pardeep Marcos MD ?? Date of Service: 01/18/24 ?? Procedure(s): US breast ndl core biopsy RT ?? Accession Number(s): [id number] ? cc: Giana Isbell MD; Pardeep Marcos MD ?ADDENDUM ? ADDENDUM #1 ? ADDENDUM: ?? Right breast biopsy at 9:00 results invasive ductal carcinoma. ?? Results are malignant and concordant. ?? Recommend breast surgical consultation for excision and further ?? management. The patient is under the care of a breast surgeon for ?? further management. ? OVERALL ASSESSMENT: ?? BI-RADS 6 - Known biopsy proven malignancy ? RECOMMENDATION: ?? Surgical Consult ? Electronically signed by: ??Carissa Raza DO ??01/25/2024 08:54 AM EST ?? RP ? Addendum Dictated By: ?Carissa Raza, DO ? Addendum Signed By: ? <Electronically signed by Carissa Raza, DO in OV> ? 01/25/24 0854 ?? Addendum Cosigned By: ? DD/ /01/800 ? TD/TT: 01/18/2412/31/834 ? PROCEDURE: ?? ULTRASOUND-GUIDED RIGHT BREAST BIOPSY ? CLINICAL INFORMATION: ?? Irregular right breast solid mass. ? COMPARISON: ?? Comparison is made with available prior examinations. ? TECHNIQUE: ?? The details of the procedure, as well as the risks, benefits, and ?? alternatives to the procedure were explained to the patient in detail ?? and all of her questions were answered, after which, written informed ?? consent was obtained. ? PROCEDURE: ?? Prior to the procedure, sonography revealed a solid irregular mass at ?? 9:00 8 cm from the nipple in the right breast. A time-out was ?? performed, the lesion intended for biopsy was targeted and the skin of ?? the right breast was then prepped and draped in the usual sterile ?? fashion. ? Using sonographic guidance, sterile technique, and 1% lidocaine without ?? epinephrine for local anesthesia, a total of 4 cores were obtained ?? through the targeted area with a 14-gauge biopsy device. At the ?? completion of tissue sampling, a single butterfly clip was deposited at ?? the biopsy site. ? An appropriate sample was obtained. ? The postprocedure 2-view digital mammogram reveals satisfactory ?? positioning of the biopsy clip. ? The patient tolerated the procedure well and, after assuring adequate ?? hemostasis, was discharged in good condition after reviewing postbiopsy ?? breast care instructions. Final pathology results are pending. ? US/US breast ndl core biopsy RT ?? IMPRESSION: ?? 1. Uncomplicated sonographically-guided core biopsy of the right ?? breast. The 2-view digital postprocedure mammogram reveals satisfactory ?? positioning of the biopsy clip. ?? 2. Final pathology results are pending. A separate report with final ?? recommendations will be issued once these results are made available. ? Electronically signed by: ??Carissa Raza DO ??01/18/2024 09:37 AM EST ?? RP ? Dictated By: ?Carissa Raza DO ? Signed By: ?<Electronically signed by Carissa Raza, DO in OV> ? 01/18/24 0937 ? DD/ 0800 ? TD/TT: 01/18/24 0835 ? Cytotechnologist/Histotechnologist: ? Procedure Note Trish Image - 01/25/2024 [place] [facility] [address] [place] [address] Ultrasound Report Signed with Addenda Patient: Pat Bush#: [id number] : 1965Acct:[id number] Age/Sex: 58 / FADM Date: 01/18/24 Loc: HO.MAMMO Attending Dr: Pardeep Marcos MD Ordering Physician: Pardeep Marcos MD Date of Service: 01/18/24 Procedure(s): US breast ndl core biopsy RT Accession Number(s): [id number] cc: Giana Isbell MD; Pardeep Marcos MD ADDENDUM ADDENDUM #1 ADDENDUM: Right breast biopsy at 9:00 results invasive ductal carcinoma. Results are malignant and concordant. Recommend breast surgical consultation for excision and further management. The patient is under the care of a breast surgeon for further management. OVERALL ASSESSMENT: BI-RADS 6 - Known biopsy proven malignancy RECOMMENDATION: Surgical Consult Electronically signed by: Carissa Raza DO 01/25/2024 08:54 AM EST Addendum Dictated By: Carissa Raza DO Addendum Signed By: <Electronically signed by DO Shira in OV> 01/25/24 0854 Addendum Cosigned By: DD/ /01/800 TD/TT: 01/18/2412/31/834 PROCEDURE: ULTRASOUND-GUIDED RIGHT BREAST BIOPSY CLINICAL INFORMATION: Irregular right breast solid mass. COMPARISON: Comparison is made with available prior examinations. TECHNIQUE: The details of the procedure, as well as the risks, benefits, and alternatives to the procedure were explained to the patient in detail and all of her questions were answered, after which, written informed consent was obtained. PROCEDURE: Prior to the procedure, sonography revealed a solid irregular mass at 9:00 8 cm from the nipple in the right breast. A time-out was performed, the lesion intended for biopsy was targeted and the skin of the right breast was then prepped and draped in the usual sterile fashion. Using sonographic guidance, sterile technique, and 1% lidocaine without epinephrine for local anesthesia, a total of 4 cores were obtained through the targeted area with a 14-gauge biopsy device. At the completion of tissue sampling, a single butterfly clip was deposited at the biopsy site. An appropriate sample was obtained. The postprocedure 2-view digital mammogram reveals satisfactory positioning of the biopsy clip. The patient tolerated the procedure well and, after assuring adequate hemostasis, was discharged in good condition after reviewing postbiopsy breast care instructions. Final pathology results are pending. US/US breast ndl core biopsy RT IMPRESSION: 1. Uncomplicated sonographically-guided core biopsy of the right breast. The 2-view digital postprocedure mammogram reveals satisfactory positioning of the biopsy clip. 2. Final pathology results are pending. A separate report with final recommendations will be issued once these results are made available. Electronically signed by: Carissa Raza DO 01/18/2024 09:37 AM EST Dictated By: Carissa Raza DO Signed By: <Electronically signed by Carissa Raza DO in OV> 01/18/2437 DD/ 0800 TD/TT: 01/18/24 0835 Cytotechnologist/Histotechnologist: [facility] External Provider IMG US PROCEDURES Edited Result - Final * BI Mammogram Diagnostic Tomosynthesis Right (01/18/2024 8:00 AM EST) Anatomical Region Laterality Modality Breast Right Mammography 01/18/2024 8:00 AM EST Narrative 01/18/2024 9:40 AM EST ? [facility] ? [address] ?[place] [address] ? Mammography Report ? Signed with Addenda ? Patient: Tory Bush ?MR#: [id number] ?? [id number] ? : 1965 ?Acct:[id number] ? Age/Sex: 58 / F ?ADM Date: 12/11/24 ? Loc: HO.MAMMO ? Attending Dr: Pardeep Marcos MD ? Ordering Physician: Pardeep Marcos MD ?Results: ? Date of Service: 01/18/24 ?Follow Up: ? Procedure(s): MM tomosynthesis diagnostic RT ?? Accession Number(s): [id number] ? cc: Giana Isbell MD; Pardeep Marcos MD ?ADDENDUM ? ADDENDUM #1 ? ADDENDUM: ?? Right breast biopsy at 9:00 results invasive ductal carcinoma. ?? Results are malignant and concordant. ?? Recommend breast surgical consultation for excision and further ?? management. The patient is under the care of a breast surgeon for ?? further management. ? OVERALL ASSESSMENT: ?? BI-RADS 6 - Known biopsy proven malignancy ? RECOMMENDATION: ?? Surgical Consult ? Electronically signed by: ??Carissa Raza DO ??01/25/2024 08:54 AM EST ?? RP ? Addendum Dictated By: ?Carissa Raza, DO ? Addendum Signed By: ? <Electronically signed by Carissa Raza, DO in OV> ? 01/25/24 0854 ?? Addendum Cosigned By: ? DD/ /01/800 ? TD/TT: 01/18/2412/31/834 ? PROCEDURE: ?? ULTRASOUND-GUIDED RIGHT BREAST BIOPSY ? CLINICAL INFORMATION: ?? Irregular right breast solid mass. ? COMPARISON: ?? Comparison is made with available prior examinations. ? TECHNIQUE: ?? The details of the procedure, as well as the risks, benefits, and ?? alternatives to the procedure were explained to the patient in detail ?? and all of her questions were answered, after which, written informed ?? consent was obtained. ? PROCEDURE: ?? Prior to the procedure, sonography revealed a solid irregular mass at ?? 9:00 8 cm from the nipple in the right breast. A time-out was ?? performed, the lesion intended for biopsy was targeted and the skin of ?? the right breast was then prepped and draped in the usual sterile ?? fashion. ? Using sonographic guidance, sterile technique, and 1% lidocaine without ?? epinephrine for local anesthesia, a total of 4 cores were obtained ?? through the targeted area with a 14-gauge biopsy device. At the ?? completion of tissue sampling, a single butterfly clip was deposited at ?? the biopsy site. ? An appropriate sample was obtained. ? The postprocedure 2-view digital mammogram reveals satisfactory ?? positioning of the biopsy clip. ? The patient tolerated the procedure well and, after assuring adequate ?? hemostasis, was discharged in good condition after reviewing postbiopsy ?? breast care instructions. Final pathology results are pending. ? MM/MM tomosynthesis diagnostic RT ?? IMPRESSION: ?? 1. Uncomplicated sonographically-guided core biopsy of the right ?? breast. The 2-view digital postprocedure mammogram reveals satisfactory ?? positioning of the biopsy clip. ?? 2. Final pathology results are pending. A separate report with final ?? recommendations will be issued once these results are made available. ? Electronically signed by: ??Carissa Raza DO ??01/18/2024 09:37 AM EST ?? RP ? Dictated By: ?Carissa Raza DO ? Signed By: ?<Electronically signed by Carissa Raza DO in OV> ? 01/18/24 0937 ? DD/ 0800 ? TD/TT: 01/18/24 0835 ? Cytotechnologist/Histotechnologist: ? Procedure Note Trish, Image - 01/25/2024 [facility] [address] [place] [address] Dr. [place], [place] [address] Mammography Report Signed with Fani Patient: aPt uBsh#: [id number] : 1965Acct:[id number] Age/Sex: 58 / FADM Date: 01/18/24 Loc: HO.MAMMO Attending Dr: Pardeep Marcos MD Ordering Physician: Pardeep Marcos MDResults: Date of Service: 01/18/24Follow Up: Procedure(s): MM tomosynthesis diagnostic RT Accession Number(s): [id number] cc: Giana Isbell MD; Pardeep Marcos MD ADDENDUM ADDENDUM #1 ADDENDUM: Right breast biopsy at 9:00 results invasive ductal carcinoma. Results are malignant and concordant. Recommend breast surgical consultation for excision and further management. The patient is under the care of a breast surgeon for further management. OVERALL ASSESSMENT: BI-RADS 6 - Known biopsy proven malignancy RECOMMENDATION: Surgical Consult Electronically signed by: Carissa Raza DO 01/25/2024 08:54 AM EST RP Addendum Dictated By: Carissa Raza DO Addendum Signed By: <Electronically signed by DO Shira in OV> 01/25/24 0854 Addendum Cosigned By: DD/ /01/800 TD/TT: 01/18/2412/31/834 PROCEDURE: ULTRASOUND-GUIDED RIGHT BREAST BIOPSY CLINICAL INFORMATION: Irregular right breast solid mass. COMPARISON: Comparison is made with available prior examinations. TECHNIQUE: The details of the procedure, as well as the risks, benefits, and alternatives to the procedure were explained to the patient in detail and all of her questions were answered, after which, written informed consent was obtained. PROCEDURE: Prior to the procedure, sonography revealed a solid irregular mass at 9:00 8 cm from the nipple in the right breast. A time-out was performed, the lesion intended for biopsy was targeted and the skin of the right breast was then prepped and draped in the usual sterile fashion. Using sonographic guidance, sterile technique, and 1% lidocaine without epinephrine for local anesthesia, a total of 4 cores were obtained through the targeted area with a 14-gauge biopsy device. At the completion of tissue sampling, a single butterfly clip was deposited at the biopsy site. An appropriate sample was obtained. The postprocedure 2-view digital mammogram reveals satisfactory positioning of the biopsy clip. The patient tolerated the procedure well and, after assuring adequate hemostasis, was discharged in good condition after reviewing postbiopsy breast care instructions. Final pathology results are pending. MM/MM tomosynthesis diagnostic RT IMPRESSION: 1. Uncomplicated sonographically-guided core biopsy of the right breast. The 2-view digital postprocedure mammogram reveals satisfactory positioning of the biopsy clip. 2. Final pathology results are pending. A separate report with final recommendations will be issued once these results are made available. Electronically signed by: Carissa Raza DO 01/18/2024 09:37 AM EST RP Dictated By: Carissa Raza DO Signed By: <Electronically signed by Carissa Raza DO in OV> 01/18/24936 DD/ 9 TD/TT: 01/18/24834 Cytotechnologist/Histotechnologist: [facility] External Provider IMG BI PROCEDURES Edited Result - Final * BI US Breast Limited Right (01/04/2024 1:00 PM EST) Anatomical Region Laterality Modality Breast Right Ultrasound 01/04/2024 1:00 PM EST Narrative 01/04/2024 1:38 PM EST ? [facility] ? [address] ?[place] [address] ? Ultrasound Report ? Signed ? Patient: Tory Bush ?MR#: [id number] ?? [id number] ? : 1965 ?Acct:[id number] ? Age/Sex: 58 / F ?ADM Date: 01/04/24 ? Loc: HO.MAMMO ? Attending Dr: Lou Gonzalez MD ? Ordering Physician: Lou Gonzalez MD ?? Date of Service: 01/04/24 ?? Procedure(s): US breast RT limited mamm only ?? Accession Number(s): [id number] ? cc: Lou Gonzalez MD ? EXAMINATION: ?? MM DIAGNOSTIC DIGITAL BREAST TOMOSYNTHESIS, BILATERAL ? CLINICAL INFORMATION: ? Right breast palpable lump. ??family history of breast cancer including ?? the patient's mother. ? COMPARISON: ?? Mammography: Comparison is made with relevant prior exams. ? TECHNIQUE: ?? Digital breast mammography with tomosynthesis is performed in both the ?? craniocaudal and mediolateral oblique views along with computer-aided ?? detection (CAD). ? Limited right breast ultrasound. ? FINDINGS: ?? The breasts are heterogeneously dense, which may obscure small masses ?? (ACR BI-RADS breast composition Category c). ?? Left: ?? There are no significant masses, abnormal calcifications, or other ?? abnormalities. ? Right: ?? There is a focal asymmetry in the central outer breast posterior depth ?? with associated pleomorphic calcifications which correlates to the ?? patient's palpable lump indicated by the BB marker. ?? No other suspicious abnormal findings. ? Targeted color Doppler ultrasound scanning in the area of the patient's ?? palpable lump and irregular focal asymmetry with irregular ?? calcifications demonstrates a solid irregular mass at 9:00 8 cm from ?? the nipple measuring 16 x 20 x 11 mm with associated internal ?? calcifications. ? Results are discussed with the patient at time of visit. ? US/US breast RT limited mamm only ?? IMPRESSION: ?? Left: Negative. ? Right: Solid irregular mass at 9:00 on ultrasound. Recommend histology ?? with ultrasound-guided core needle biopsy at this time. The findings ?? and recommendations were discussed with the patient the procedure will ?? be scheduled. ? ASSESSMENT: ? BI-RADS BI-RADS 4 - Suspicious finding ? RECOMMENDATION: ?? 1 year F/U (accession [id number]), Biopsy recommended (accession ?? [id number]) ? This patient's information was entered into a reminder system with a ?? target due date for their next mammogram. ? Electronically signed by: ??Carissa Raza DO ??01/04/2024 01:35 PM EST ?? RP ? Dictated By: ?Carissa Raza DO ? Signed By: ?<Electronically signed by Carissa Raza, DO in OV> ? 01/04/24 1335 ? DD/ 1300 ? TD/TT: 01/04/24 1315 ? Cytotechnologist/Histotechnologist: ? Procedure Note Trish, Image - 01/08/2024 [facility] [address] [place] [address] [place] [address] Ultrasound Report Signed Patient: Pat Bush#: [id number] : 1965Acct:[id number] Age/Sex: 58 / FADM Date: 01/04/24 Loc: HO.MAMMO Attending Dr: Lou Gonzalez MD Ordering Physician: Lou Gonzalez MD Date of Service: 01/04/24 Procedure(s): US breast RT limited mamm only Accession Number(s): [id number] cc: Lou Gonzalez MD EXAMINATION: MM DIAGNOSTIC DIGITAL BREAST TOMOSYNTHESIS, BILATERAL CLINICAL INFORMATION: Right breast palpable lump. family history of breast cancer including the patient's mother. COMPARISON: Mammography: Comparison is made with relevant prior exams. TECHNIQUE: Digital breast mammography with tomosynthesis is performed in both the craniocaudal and mediolateral oblique views along with computer-aided detection (CAD). Limited right breast ultrasound. FINDINGS: The breasts are heterogeneously dense, which may obscure small masses (ACR BI-RADS breast composition Category c). Left: There are no significant masses, abnormal calcifications, or other abnormalities. Right: There is a focal asymmetry in the central outer breast posterior depth with associated pleomorphic calcifications which correlates to the patient's palpable lump indicated by the BB marker. No other suspicious abnormal findings. Targeted color Doppler ultrasound scanning in the area of the patient's palpable lump and irregular focal asymmetry with irregular calcifications demonstrates a solid irregular mass at 9:00 8 cm from the nipple measuring 16 x 20 x 11 mm with associated internal calcifications. Results are discussed with the patient at time of visit. US/US breast RT limited mamm only IMPRESSION: Left: Negative. Right: Solid irregular mass at 9:00 on ultrasound. Recommend histology with ultrasound-guided core needle biopsy at this time. The findings and recommendations were discussed with the patient the procedure will be scheduled. ASSESSMENT: BI-RADS BI-RADS 4 - Suspicious finding RECOMMENDATION: 1 year F/U (accession [id number]), Biopsy recommended (accession [id number]) This patient's information was entered into a reminder system with a target due date for their next mammogram. Electronically signed by: Carissa Raza DO 01/04/2024 01:35 PM EST RP Dictated By: Carissa Raza DO Signed By: <Electronically signed by Carissa Raza DO in OV> 01/04/24 1335 DD/ 1300 TD/TT: 01/04/24 1315 Cytotechnologist/Histotechnologist: us Lou Gonzalez MD IMG US PROCEDURES Edited Resu lt - Final * BI Mammogram Diagnostic Tomosynthesis Bilateral (01/04/2024 12:30 PM EST) Anatomical Region Laterality Modality Breast Bilateral Mammography 01/04/2024 12:3 0 PM EST Narrative 01/04/2024 1:38 PM EST ? [facility] ? [address] ?[place] [address] ? Mammography Report ? Signed ? Patient: Tory Bush ?MR#: [id number] ?? [id number] ? : 1965 ?Acct:[id number] ? Age/Sex: 58 / F ?ADM Date: //24 ? Loc: HO.MAMMO ? Attending Dr: Lou Gonzalez MD ? Ordering Physician: Lou Gonzalez MD ?Results: 4Susp ?? icious Finding ? Date of Service: 01/03/24 ?Follow Up: 1 Year From Orig ?? inal Mammogram ? Procedure(s): MM tomosynthesis diagnostic BI ?? Accession Number(s): [id number] ? cc: Lou Gonzalez MD ? EXAMINATION: ?? MM DIAGNOSTIC DIGITAL BREAST TOMOSYNTHESIS, BILATERAL ? CLINICAL INFORMATION: ? Right breast palpable lump. ??family history of breast cancer including ?? the patient's mother. ? COMPARISON: ?? Mammography: Comparison is made with relevant prior exams. ? TECHNIQUE: ?? Digital breast mammography with tomosynthesis is performed in both the ?? craniocaudal and mediolateral oblique views along with computer-aided ?? detection (CAD). ? Limited right breast ultrasound. ? FINDINGS: ?? The breasts are heterogeneously dense, which may obscure small masses ?? (ACR BI-RADS breast composition Category c). ?? Left: ?? There are no significant masses, abnormal calcifications, or other ?? abnormalities. ? Right: ?? There is a focal asymmetry in the central outer breast posterior depth ?? with associated pleomorphic calcifications which correlates to the ?? patient's palpable lump indicated by the BB marker. ?? No other suspicious abnormal findings. ? Targeted color Doppler ultrasound scanning in the area of the patient's ?? palpable lump and irregular focal asymmetry with irregular ?? calcifications demonstrates a solid irregular mass at 9:00 8 cm from ?? the nipple measuring 16 x 20 x 11 mm with associated internal ?? calcifications. ? Results are discussed with the patient at time of visit. ? MM/MM tomosynthesis diagnostic BI ?? IMPRESSION: ?? Left: Negative. ? Right: Solid irregular mass at 9:00 on ultrasound. Recommend histology ?? with ultrasound-guided core needle biopsy at this time. The findings ?? and recommendations were discussed with the patient the procedure will ?? be scheduled. ? ASSESSMENT: ? BI-RADS BI-RADS 4 - Suspicious finding ? RECOMMENDATION: ?? 1 year F/U (accession [id number]), Biopsy recommended (accession ?? [id number]) ? This patient's information was entered into a reminder system with a ?? target due date for their next mammogram. ? Electronically signed by: ??Carissa Raza DO ??01/04/2024 01:35 PM EST ? Dictated By: ?Carissa Raza DO ? Signed By: ?<Electronically signed by Carissa Raza, DO in OV> ? 01/04/24 1335 ? DD/ 1230 ? TD/TT: 01/04/24 1249 ? Cytotechnologist/Histotechnologist: ? Procedure Note Donotuseinterpreter, Image - 01/04/2024 [facility] [address] [place] [address] Mammography Report Signed Patient: Pat Bush#: [id number] : 1965Acct:[id number] Age/Sex: 58 / FADM Date: 01/04/24 Loc: HO.MAMMO Attending Dr: Lou Gonzalez MD Ordering Physician: Lou Gonzalez MDResults: 4Susp icious Finding Date of Service: 01/04/24Follow Up: 1 Year From Orig ina Mammogram Procedure(s): MM tomosynthesis diagnostic BI Accession Number(s): [id number] cc: Lou Gonzalez MD EXAMINATION: MM DIAGNOSTIC DIGITAL BREAST TOMOSYNTHESIS, BILATERAL CLINICAL INFORMATION: Right breast palpable lump. family history of breast cancer including the patient's mother. COMPARISON: Mammography: Comparison is made with relevant prior exams. TECHNIQUE: Digital breast mammography with tomosynthesis is performed in both the craniocaudal and mediolateral oblique views along with computer-aided detection (CAD). Limited right breast ultrasound. FINDINGS: The breasts are heterogeneously dense, which may obscure small masses (ACR BI-RADS breast composition Category c). Left: There are no significant masses, abnormal calcifications, or other abnormalities. Right: There is a focal asymmetry in the central outer breast posterior depth with associated pleomorphic calcifications which correlates to the patient's palpable lump indicated by the BB marker. No other suspicious abnormal findings. Targeted color Doppler ultrasound scanning in the area of the patient's palpable lump and irregular focal asymmetry with irregular calcifications demonstrates a solid irregular mass at 9:00 8 cm from the nipple measuring 16 x 20 x 11 mm with associated internal calcifications. Results are discussed with the patient at time of visit. MM/MM tomosynthesis diagnostic BI IMPRESSION: Left: Negative. Right: Solid irregular mass at 9:00 on ultrasound. Recommend histology with ultrasound-guided core needle biopsy at this time. The findings and recommendations were discussed with the patient the procedure will be scheduled. ASSESSMENT: BI-RADS BI-RADS 4 - Suspicious finding RECOMMENDATION: 1 year F/U (accession [id number]), Biopsy recommended (accession [id number]) This patient's information was entered into a reminder system with a target due date for their next mammogram. Electronically signed by: Carissa Raza DO 01/04/2024 01:35 PM [facility] Dictated By: Carissa Raza DO Signed By: <Electronically signed by Carissa Raza DO in OV> 01/04/24 1335 DD/ 1230 TD/TT: 01/04/24 1249 Cytotechnologist/Histotechnologist: Lou Gonzalez MD IMG BI PROCEDURES Edited Resu lt - Final * (ABNORMAL) POCT HGB A1C (12/06/2023 11:41 AM EDT) Hemoglobin A1C 6.2(A) 4.0 - 6.0 % QC Media Lot # [id number] Lot# Expiration Date Blood 12/06/2023 11:4 1 AM EDT Giana Isbell MD POINT OF CARE TEST ENTER/ED IT ORDERABLES Final Result * [facility] Pap and HPV mRNA E6/E7 (10/25/2023 12:00 AM EDT) HPV nRNA E6/E7 Not Detected Not Detected [facility] Comment:Methodology: Transcr iption-Mediated AmplificationThis assay detects E6/E7 viral messenger RNA (mRNA) from 14high-risk HPV types (16,18,31,33,35,39,45,51,52,56,58,59,66,68).Cervical sources are required for HPV testing.If a vaginal source from a patient who has had atotal hysterectomy with removal of cervix wassubmitted, please contact the testing laboratoryfor alternative testing options.For additional information, please refer tohttp://education.[employer]/faq/YBL295x7(This link if provided for information/educational purposes only.)THIS TEST WAS PERFORMED AT:[facility] [address] [id number] FISCHER MD SOURCE: SEE NOTE [facility] Comment:None given Report Status: [facility] Clinical Information: SEE NOTE [facility] Comment:None given LMP: SEE NOTE [facility] Comment:NONE GIVEN Prev. PAP: SEE NOTE [facility] Comment:NONE GIVEN Prev. BX: SEE NOTE [facility] Comment:NONE GIVEN Statement Of Adequacy: SEE NOTE [facility] Comment:Satisfactory for tiffany luation.Endocervical/transformation zone componentpresent. General Categorization: [facility] Interpretation/Result: SEE NOTE [facility] Comment:Cytology Results: Ne gative for intraepitheliallesion or malignancy. Cytology Comment SEE NOTE [facility] Comment:This Pap test has be en evaluated with computerassisted technology. Video Game Repair Technician: SEE NOTE [facility] Comment:YP, CT(ASCP)CT scree gino location: [address] [address] Review Video Game Repair Technician: [facility] Pathologist [facility] PAP Infection [facility] See Note SEE NOTE [facility] Comment:EXPLANATORY NOTE:The Pap is a screening test for cervical cancer. It isnot a diagnostic test and is subject to false negativeand false positive results. It is most reliable when asatisfactory sample, regularly obtained, is submittedwith relevant clinical findings and history, and whenthe Pap result is evaluated along with historic andcurrent clinical information. 10/25/2023 10/25/2023 Narrative [facility] - 11/01/2023 12:30 PM EDT SEE SCANNED RESULTS IN EMR us Lou Gonzalez MD LAB PATHOLOGY ORDERABLES Ashlyn l Result [facility] [address] [place] [address] [phone] * Hepatitis Panel, General (01/13/2023 9:50 AM EST) Hepatitis A IgM Nonreactive Nonreactive [facility] Comment:IgM antibodies to RUELAS V not detected; does not exclude earlyacute or recovered HAV infection. ~Hepatitis B Surface Antibody NONREACTIVE Nonreactive [facility] Comment:Nonreactive: < 8.00 mIU/mL Hepatitis B Core Antibody Nonreactive Nonreactive [facility] Hepatitis C Antibody Nonreactive Nonreactive [facility] Comment:Antibodies to HCV no t detected; does not exclude early acuteHCV infection. Hepatitis B Surface Ag Negative Negative [facility] 01/13/2023 9:50 AM EST 01/13/2023 9:52 AM EST us Generic External Data Provider LAB BLOOD ORDERAB LES Final Result [facility] [address] [place] [phone] * (ABNORMAL) LIPID PANEL, STANDARD (08/04/2021 9:06 AM EDT) Chol/HDLC Ratio 4.9 <5.0 (calc) [facility] Cholesterol, Total 236(H) <200 mg/dL [facility] HDL Cholesterol 48(L) > OR = 50 mg/dL [facility] LDL Cholesterol 155(H) mg/dL (calc) [facility] Comment: Reference range: <100 ?? Desirable range <100 mg/dL for primary prevention; ?? <70 mg/dL for patients with CHD or diabetic patients ?? with > or = 2 CHD risk factors. ?? LDL-C is now calculated using the Esteban-Randall ?? calculation, which is a validated novel method providing ?? better accuracy than the Friedewald equation in the ?? estimation of LDL-C. ?? Esteban SS et al. NIC. 2013;310(19): 0112-2625 ?? (http://education.[employer]/faq/OZO994) Non-HDL Cholesterol 188(H) <130 mg/dL (calc) [facility] Comment: For patients with diabetes plus 1 major ASCVD risk ?? factor, treating to a non-HDL-C goal of <100 mg/dL ?? (LDL-C of <70 mg/dL) is considered a therapeutic ?? option. Triglycerides 189(H) <150 mg/dL [facility] 08/04/2021 9:06 AM EDT Giana Isbell MD LAB BLOOD ORDERABLES Final Result [facility] [address] * Colonoscopy (12/02/2015) Colonoscopy Normal Normal Narrative Lily Sanchez - 12/02/2015 Recommended 10 year follow up Historical Provider HEALTH MAINTENANCE Final Result from Last 3 Months or Most Recently Relevant to Health Maintenance Insurance - [facility] Care Teams Production Expert Relationship Specialty Start Date End Date Giana Isbell MD [address] [place] [address] PCP - General Internal Medicine 09/07/18
--- OUTSIDE RECORDS SUMMARY | 2024-03-13 15:46 | XMS_ITS | Encounter Summary ---
Author Organization [employer] Address [address] [place] [address] 7 [place] [address] Care Team Providers Care Tunnel Kiln Firer Name Role Phone Giana Isbell MD Primary Care Provider Reason for Referral * Imaging (Urgent) - Closed Specialty Diagnoses / Procedures Referred By Ervin chávez Referred To Contact Radiology Diagnoses Elevated alkaline phosphatase level Procedures US Abdomen Complete Giana Isbell MD [address] [place] [address] Phone: tel: fax: [address] Phone: tel: fax: Referral ID Status Reason Start Date Expiration Date Visits Re quested Visits Authorized [id number] Closed 02/17/2023 02/17/2024 1 1 Encounter Details Date Type Department Care Team (Late st Contact Info) Description 02/17/2023 Orders Only [facility] MED & PEDS [address] [place], [place] [phone] Giana Isbell MD [address] [place], [place] [phone] Elevated alkaline phosphatase level (Primary Dx); Left upper quadrant abdominal pain Social History Tobacco Use Types Packs/Day Years Used Date Smoking Tobacco: Never Smokeless Tobacco: Never Depression Answer Date Recorded Patient Health Questionnaire-9 Score 7 07/29/2022 Housing Stability Answer Date Recorded What is your housing situation today? I have robmary jo alexander 11/22/[address] you [...] Orientation Straight 12/07/2021 10 :16 AM EDT documented as of this encounter Plan of Treatment Upcoming Encounters Date Type Department Care Team (Late st Contact Info) Description 06/11/2024 9:00 AM EDT Office Visit [facility] OPTOMETRY [address] [place] [address] Morteza, Dawna, OD [address] [place] [address] documented as of this encounter Procedures Procedure Name Priority Date/Time Associated Diagnosis Comments US ABDOMEN COMPLETE Urgent 03/21/2023 9 :29 AM EST Elevated alkaline phosphatase level documented in this encounter Results * US Abdomen Complete (03/21/2023 9:29 AM EST) Anatomical Region Laterality Modality Abdomen Ultrasound 03/21/2023 9:29 AM EST Narrative 03/22/2023 9:16 AM EST ? [facility] ?[address] ?[place] [address] ? Ultrasound Report ? Signed ? Patient: Tamia Sánchez,Tory ?MR#: [id number] ? : 1965 ?Acct:[id number] ? Age/Sex: 57 / F ?ADM Date: 03/21/23 ? Loc: HO.US ? Attending Dr: Giana Isbell MD ? Ordering Physician: Giana Isbell MD ?? Date of Service: 03/21/23 ?? Procedure(s): US abdomen complete ?? Accession Number(s): [id number] ? cc: Giana Isbell MD ? EXAMINATION: ?? US ABDOMEN COMPLETE ? CLINICAL INFORMATION: ?? Elevated alkaline level. ? COMPARISON: ?? X-ray abdomen KUB 02/23/2023. MR abdomen without contrast 01/14/2023. ?? CT abdomen and pelvis 01/13/2023. Ultrasound abdomen limited ?? 07/17/2022. Ultrasound abdomen complete 08/04/2021. ? TECHNIQUE: ?? Real-time imaging of the abdominal viscera. Limited visualization due ?? to bowel gas. ? FINDINGS: ? PANCREAS: Limited visualization of pancreatic tail and head. Imaged ?? portion of pancreatic body is unremarkable. ? ABDOMINAL AORTA: Limited visualization. ? INFERIOR VENA CAVA: Visualized portions are normal. ? LIVER: Hepatomegaly, 17.0 cm. Increased hepatic parenchymal ?? heterogeneity and echogenicity could be associated with hepatocellular ?? disease/hepatic steatosis and substantially limits visualization. ?? Correlation with liver function tests and clinical exam recommended to ?? determine further management. ? GALLBLADDER: Surgically absent. ? COMMON BILE DUCT: Normal in caliber measuring 0.9 cm in diameter. ? RIGHT KIDNEY: Limited visualization. No renal calculi. Mildly dilated ?? right renal pelvis versus extrarenal pelvis redemonstrated. The kidney ?? measures 9.6 cm in maximum dimension. ? LEFT KIDNEY: Left lower pole 1.0 cm cyst redemonstrated. There is no ?? indication for follow-up imaging. No hydronephrosis or renal calculi. ?? The kidney measures 9.2 cm in maximum dimension. ? SPLEEN: Normal. The spleen measures 10.3 cm in maximum dimension. ? FREE FLUID: None. ? US/US abdomen complete ?? IMPRESSION: ? 1. Hepatomegaly, 17.0 cm. Increased hepatic parenchymal heterogeneity ?? and echogenicity could be associated with hepatocellular ?? disease/hepatic steatosis and substantially limits visualization. ?? Correlation with liver function tests and clinical exam recommended to ?? determine further management. ? 2. Gallbladder surgically absent. ? 3. Mildly dilated right renal pelvis versus extrarenal pelvis ?? redemonstrated. No renal calculi. ? Dictated By: ?Denise Ambrosio MD ? Signed By: ?<Electronically signed by Denise Ambrosio MD in OV> ? 03/22/23911 ? DD/ 0929 ? TD/TT: ? Edge Cutting Machine Operator: ? Procedure Note Trish, Image - 03/22/2023 [place] [id number] Ultrasound Report Signed Patient: Pat Bush#: [id number] : 1965Acct:[id number] Age/Sex: 57 / FADM Date: 03/21/23 Loc: HO.US Attending Dr: Giana Isbell MD Ordering Physician: Giana Isbell MD Date of Service: 03/21/23 Procedure(s): US abdomen complete Accession Number(s): [id number] cc: Giana Isbell MD EXAMINATION: US ABDOMEN COMPLETE CLINICAL INFORMATION: Elevated alkaline level. COMPARISON: X-ray abdomen KUB 02/23/2023. MR abdomen without contrast 01/14/2023. CT abdomen and pelvis 01/13/2023. Ultrasound abdomen limited 07/17/2022. Ultrasound abdomen complete 08/04/2021. TECHNIQUE: Real-time imaging of the abdominal viscera. Limited visualization due to bowel gas. FINDINGS: PANCREAS: Limited visualization of pancreatic tail and head. Imaged portion of pancreatic body is unremarkable. ABDOMINAL AORTA: Limited visualization. INFERIOR VENA CAVA: Visualized portions are normal. LIVER: Hepatomegaly, 17.0 cm. Increased hepatic parenchymal heterogeneity and echogenicity could be associated with hepatocellular disease/hepatic steatosis and substantially limits visualization. Correlation with liver function tests and clinical exam recommended to determine further management. GALLBLADDER: Surgically absent. COMMON BILE DUCT: Normal in caliber measuring 0.9 cm in diameter. RIGHT KIDNEY: Limited visualization. No renal calculi. Mildly dilated right renal pelvis versus extrarenal pelvis redemonstrated. The kidney measures 9.6 cm in maximum dimension. LEFT KIDNEY: Left lower pole 1.0 cm cyst redemonstrated. There is no indication for follow-up imaging. No hydronephrosis or renal calculi. The kidney measures 9.2 cm in maximum dimension. SPLEEN: Normal. The spleen measures 10.3 cm in maximum dimension. FREE FLUID: None. US/US abdomen complete IMPRESSION: 1. Hepatomegaly, 17.0 cm. Increased hepatic parenchymal heterogeneity and echogenicity could be associated with hepatocellular disease/hepatic steatosis and substantially limits visualization. Correlation with liver function tests and clinical exam recommended to determine further management. 2. Gallbladder surgically absent. 3. Mildly dilated right renal pelvis versus extrarenal pelvis redemonstrated. No renal calculi. Dictated By: Denise Ambrosio MD Signed By: <Electronically signed by Denise Ambrosio MD in OV> 03/22/23 09 DD/ 8 TD/TT: Edge Cutting Machine Operator: us Giana Isbell MD IMG US PROCEDURES Final Res ult documented in this encounter Visit Diagnoses Diagnosis Elevated alkaline phosphatase level- Primary Left upper quadrant abdominal pain documented in this encounter Additional Health Concerns Assessment Noted Time PHQ-9 Depression Total Score: 7 07/30/19 23 10:13 AM EDT documented as of this encounter Care Teams Tunnel Kiln Firer Relationship Specialty Start Date End Date Giana Isbell MD [address] [place] [phone] PCP - General Internal Medicine 09/07/18 documented as of this encounter
--- OUTSIDE RECORDS SUMMARY | 2024-03-13 15:46 | XMS_ITS | Encounter Summary ---
Author Organization [employer] Address [address] [facility] 7t [place] [address] Care Team Providers Care Solar Electric/Photovoltaic Installer Name Role Phone Giana Isbell MD Primary Care Provider [phone] Encounter Details Date Type Department Care Team ([facility] Contact Info) Description 03/13/2024 Orders Only GENERIC EXTERNAL DATA DEPARTMENT Provider, Generic External Data Social History Tobacco Use Types Packs/Day Years Used Date Smoking Tobacco: Never Passive Smoke Exposure: Never Smokeless Tobacco: Never Depression Answer Date [...] Office Visit [facility] OPTOMETRY [address] [place] [address] Morteza, Dawna, OD [address] [place] [address] Pending Results Name Type Priority Associated Diagnoses Date /Time Hepatic Function Panel Lab Routine 2:52 PM EST Basic Metabolic Panel Lab Routine 05/2024 2:52 PM EST Magnesium Lab Routine 03/13/2024 2:5 2 PM EST documented as of this encounter Procedures Procedure Name Priority Date/Time Associated Diagnosis Comments D DIMER HIGH SENSITIVITY Routine 03/13/2024 2:52 PM EST HIGH SENSITIVITY TROPONIN I Routine 03/13/2024 2:52 PM EST COMPLETE BLOOD COUNT MAN DIF Routine 03/13/2024 2:52 PM EST SARS COV2/INFLUENZA A/B AND RSV RNA QL NAAT Routine 03/13/2024 2:52 PM EST CBC WITH AUTO DIFFERENTIAL Routine 03/13/2024 2:52 PM EST PROTHROMBIN TIME-INR Routine 03/13/2024 2:52 PM EST B TYPE NATRIURETIC PEPTIDE (BNP) Routine 03/13/2024 2:52 PM EST MAGNESIUM Routine 03/13/2024 2:52 PM EST HEPATIC FUNCTION PANEL Routine 03/13/2024 2:52 PM EST BASIC METABOLIC PANEL Routine 03/13/2024 2:52 PM EST documented in this encounter Results * SARS-CoV-2 RNA, Influenza A/B, and RSV RNA, Ql NAAT (03/13/2024 2:52 PM EST) Influenza A PCR NEGATIVE Negative [facility] Influenza B PCR NEGATIVE Negative [facility] Resp Syncy Virus RNA Qual PCR NEGATIVE Negative [facility] SARS COV2 PCR NEGATIVE Negative [facility] Comment:All test results mus t [...] use by authorized laboratories.Testing performed on the iversity GeneXpert utilizingreal-time RT-PCR.All SARS CoV2 and positive influenza A/B results arereported to [facility]. 03/13/2024 2:52 PM EST 03/13/2024 3:00 PM EST Generic External Data Provider LAB MICROBIOLOGY - GENERAL ORDERABLES Final Result Performing Organization Address [facility]/ZIP Co de Phone Number [facility] [address] [place] [phone] * High Sensitivity Troponin I (03/13/2024 2:52 PM EST) Pathologist [facility] TROPONIN I HIGH SENSITIVITY 6.2 <3.5 - 17.0 ng/L [facility] Comment:The Dinh high sens itivity Troponin-I results should beused in conjunction with other diagnostic information suchas ECG, clinical observations and information, and patientsymptoms to aid in the diagnosis of NE. 03/13/2024 2:52 PM EST 03/13/2024 3:00 PM EST Generic External Data Provider LAB BLOOD ORDERAB LES Final Result Performing Organization Address [facility]/ZIP Co de Phone Number [facility] [address] [place] [phone] * B Type Natriuretic Peptide (BNP) (03/13/2024 2:52 PM EST) [facility] B Type Natriuretic Peptide <10 <100 pg/mL [facility] Comment:For those patients w ho are being treated with Natrecor(nesiritide, recombinant BNP), BNP testing should beperformed at least two hours post treatment in order toensure that only endogenous levels of BNP are detected. 03/13/2024 2:52 PM EST 03/13/2024 3:00 PM EST [employer] External Data Provider LAB BLOOD ORDERAB LES Final Result Performing Organization Address [facility] de Phone Number [facility] [address] [place] [phone] * D Dimer High Sensitivity (03/13/2024 2:52 PM EST) [facility] D Dimer High Sensitivity 349 NG/ML [facility] Comment:D-DIMER HS REFERENCE RANGENote: Our assay reports D-Dimer Units (D- DU).The cut-off value for venous thromboembolic (VTE) disease is230 ng/mL. This value has a very high negative predictivevalue when the patient has a low to moderate clinicalprobability of VTE.The upper limit of normal is 243 ng/mL. 03/13/2024 2:52 PM EST 03/13/2024 3:00 PM EST [employer] External Data Provider LAB BLOOD ORDERAB LES Final Result Performing Organization Address [facility] Co de Phone Number [facility] [address] [place] [phone] * Prothrombin Time-INR (03/13/2024 2:52 PM EST) [facility] Prothrombin Time 11.1 10.9 - 12.4 SEC [facility] INTERNATIONAL NORM RATIO 1.0 0.9 - 1.1 [facility] Comment:INTERNATIONAL NORMAL IZED RATIO (INR) REFERENCE [...] Provider LAB BLOOD ORDERAB LES Final Result [facility] [address] [place] [address] [phone] * (ABNORMAL) Complete Blood Count Manual Diff (03/13/2024 2:52 PM EST) White Blood Count 7.5 4.8 - 10.8 X10*3/uL [facility] Red Blood Count 4.75 4.20 - 5.50 X10*6/uL [facility] Hemoglobin 14.2 12.0 - 16.0 g/dl [facility] Hematocrit 41.9 37.0 - 47.0 % [facility] Mean Corpuscular Volume 88.2 80.0 - 98.0 fL [facility] Mean Corpuscular Hemoglobin 29.9 27.0 - 33.0 pg [facility] Mean Corpuscular HGB Conc 33.9 31.0 - 35.0 g/dl [facility] Red Cell Distribution Width 14.5 11.0 - 16.0 % [facility] Platelet Count 148(L) 160 - 400 X10*3/uL [facility] Mean Platelet Volume 9.7 9.4 - 12.3 fL [facility] NRBC Pct Auto 0.0 0.0 - 0.2 /100WBC [facility] NRBC Abs Auto 0.000 0.0 - 0.012 X10*3/uL [facility] Neutrophils % Manual 70 45 - 73 % [facility] Band Neutrophils Percent 2(L) 3 - 5 % [facility] Lymphocytes Percent Manual 26 20 - 40 % [facility] Monocytes Percent Manual 1(L) 2 - 11 % [facility] EOSINOPHILS % MANUAL 1 0 - 4 % [facility] NEUTROPHILS ABSOLUTE MANUAL 5.4 2.0 - 8.3 X10*3/uL [facility] LYMPHOCYTES ABSOLUTE MANUAL 2.0 1.2 - 4.9 X10*3/uL [facility] MONOCYTES ABSOLUTE MANUAL 0.1 0.1 - 1.2 X10*3/uL [facility] EOSINOPHILS ABSOLUTE MANUAL 0.1 0.0 - 0.4 X10*3/uL [facility] Platelet Estimate NORMAL [facility] Platelet Morphology Comment NORMAL [facility] RBC Morphology [facility] Toxic Granulation [facility] Toxic Vacuolation [facility] Dohle Bodies PRESENT [facility] 03/13/2024 2:52 PM EST 03/13/2024 3:00 PM EST us Generic External Data Provider LAB BLOOD ORDERAB LES Final Result Performing Organization Address City/State/[facility] Co de Phone Number [facility] [address] [place] [phone] * (ABNORMAL) CBC auto differential (03/13/2024 2:52 PM EST) White Blood Count 7.5 4.8 - 10.8 X10*3/uL [facility] Red Blood Count 4.75 4.20 - 5.50 X10*6/uL [facility] Hemoglobin 14.2 12.0 - 16.0 g/dl [facility] Hematocrit 41.9 37.0 - 47.0 % [facility] Mean Corpuscular Volume 88.2 80.0 - 98.0 fL [facility] Mean Corpuscular Hemoglobin 29.9 27.0 - 33.0 pg [facility] Mean Corpuscular HGB Conc 33.9 31.0 - 35.0 g/dl [facility] Red Cell Distribution Width 14.5 11.0 - 16.0 % [facility] Platelet Count 148(L) 160 - 400 X10*3/uL [facility] Mean Platelet Volume 9.7 9.4 - 12.3 fL [facility] Neutrophils Percent Auto 76.3(H) 45 - 73 % [facility] Imm Gran Pct Auto 0.3 0.0 - 0.4 % [facility] Lymphocytes Percent Auto 17.8(L) 20 - 40 % [facility] Monocytes Percent Auto 3.3 2 - 11 % [facility] Eosinophils Percent Auto 1.9 0 - 4 % [facility] Basophils Percent Auto 0.4 0 - 2 % [facility] NRBC Pct Auto 0.0 0.0 - 0.2 /100WBC [facility] Neutrophils Absolute Auto 5.8 2.0 - 8.3 x10*3/uL [facility] Imm Gran Abs Auto 0.02 0.00 - 0.03 X10*3/uL [facility] Lymphocytes Absolute Auto 1.3 1.2 - 4.9 X10*3/uL [facility] Monocytes Absolute Auto 0.3 0.1 - 1.2 X10*3/uL [facility] Eosinophils Absolute Auto 0.1 0.0 - 0.4 X10*3/uL [facility] Basophils Absolute Auto 0.0 0.0 - 0.2 X10*3/uL [facility] NRBC Abs Auto 0.000 0.0 - 0.012 X10*3/uL [facility] 03/13/2024 2:52 PM EST 03/13/2024 3:00 PM EST us Generic External Data Provider LAB BLOOD ORDERAB LES Edited Result - Final [facility] [address] [place] [phone] documented in this encounter Visit Diagnoses Not on filedocumented in this encounter Additional Health Concerns Assessment Noted Time PHQ-9 Depression Total Score: 7 07/30/19 23 10:13 AM EDT documented as of this encounter Care Teams Solar Electric/Photovoltaic Installer Relationship Specialty Start Date End Date Giana Isbell MD [address] [place] [phone] PCP - General Internal Medicine 09/07/18 documented as of this encounter
--- OUTSIDE RECORDS SUMMARY | 2024-03-13 15:46 | XMS_ITS | Encounter Summary ---
Author Organization [employer] Address [address] [facility] [address] [place] [address] Care Team Providers Care Seam Feller Name Role Phone Giana Isbell MD Primary Care Provider [phone] Encounter Details Date Type Department Care Team ([facility] st Contact Info) Description 04/05/2023 Telephone [facility] [address] [place] [address] Giana Isbell MD [address] [place] [address] Social History Tobacco Use Types Packs/Day Years [...] Description 06/11/2024 9:00 AM EDT Office Visit [facility] OPT[facility] [address] [place] [address] Morteza, Dawna, OD [address] [place] [address] documented as of this encounter Visit Diagnoses Not on filedocumented in this encounter Additional Health Concerns Assessment Noted Time PHQ-9 Depression Total Score: 7 07/30/19 23 10:13 AM EDT documented as of this encounter Care Teams Seam Feller Relationship Specialty Start Date End Date Giana Isbell MD [address] [place] [phone] PCP - General Internal Medicine 09/07/18 documented as of this encounter
--- OUTSIDE RECORDS SUMMARY | 2024-03-13 15:46 | XMS_ITS | Encounter Summary ---
Author Organization [employer] Address [address] [facility] [address] [place] [address] Care Team Providers Care Manager Nursing Name Role Phone Giana Isbell MD Primary Care Provider [phone] Encounter Details Date Type Department Care Team ([facility] Contact Info) Description 02/17/2024 Orders Only [facility] Management [address] [place] [address] Provider, MD Kathi Social History Tobacco Use Types Packs/Day Years [...] Description 06/11/2024 9:00 AM EDT Office Visit [facility] OPTOMETRY [address] [place] [address] Morteza, Dawna, OD [address] [place] [address] documented as of this encounter Procedures Procedure Name Priority Date/Time Associated Diagnosis Comments SURGICAL PATHOLOGY Routine 01/18/2024 9:43 AM EST documented in this encounter Results * Surgical Pathology (01/18/2024 9:43 AM EST) Historical Provider LAB PATHOLOGY ORDERABLES Final Result documented in this encounter Visit Diagnoses Not on filedocumented in this encounter Additional Health Concerns Assessment Noted Time PHQ-9 Depression Total Score: 7 07/30/19 23 10:13 AM EDT documented as of this encounter Care Teams Manager Nursing Relationship Specialty Start Date End Date Giana Isbell MD [address] [place] [phone] PCP - General Internal Medicine 09/07/18 documented as of this encounter
--- OUTSIDE RECORDS SUMMARY | 2024-03-13 15:46 | XMS_ITS | Encounter Summary ---
Author Organization [employer] Address [address] [facility] [address] [place] [address] Care Team Providers Care Quantitative Consultant Name Role Phone Giana Isbell MD Primary Care Provider [phone] Encounter Details Date Type Department Care Team (Latest Contact Info) Description 02/15/2018 Abstract [facility] Dental, Provider, DDS Social History Tobacco Use Types Packs/Day Years Used Date Smoking Tobacco: Never Assessed Comments Unknown Sex and Gender Information Value [...] Description 06/11/2024 9:00 AM EDT Office Visit [facility] OPTOMETRY [address] [place] [address] Dawna Pro, OD [address] [place] [address] documented as of this encounter Visit Diagnoses Not on filedocumented in this encounter Care Teams Quantitative Consultant Relationship Specialty Start Date End Date Giana Isbell MD [address] [place] [address] PCP - General Internal Medicine 09/07/18 documented as of this encounter
--- OUTSIDE RECORDS SUMMARY | 2024-03-13 15:46 | XMS_ITS | Encounter Summary ---
Author Organization [employer] Address [address] [facility] [address] [place] [address] Care Team Providers Care Feed Adviser Name Role Phone Giana Isbell MD Primary Care Provider [phone] Encounter Details Date Type Department Care Team ([facility] Contact Info) Description 02/23/2024 Telephone [employer] Information Management [address] [place] [address] Giana Isbell MD [address] [place] [address] Social History Tobacco Use Types Packs/Day Years [...] AM EDT documented as of this encounter Miscellaneous Notes * Telephone Encounter - Nel May - 02/23/2024 10:27 AM EST TC Spoke to patients that the RMV form is 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 material handlers at [facility] documented in this encounter Plan of Treatment Upcoming Encounters Date Type Department Care Team (Late st Contact Info) Description 06/11/2024 9:00 AM EDT Office Visit [facility] OPTOMETRY [address] [place] [address] Morteza, Dawna, OD [address] [place] [address] documented as of this encounter Visit Diagnoses Not on filedocumented in this encounter Additional Health Concerns Assessment Noted Time PHQ-9 Depression Total Score: 7 07/30/19 23 10:13 AM EDT documented as of this encounter Care Teams Feed Adviser Relationship Specialty Start Date End Date Giana Isbell MD [address] [place] [address] PCP - General Internal Medicine 09/07/18 documented as of this encounter
--- OUTSIDE RECORDS SUMMARY | 2024-03-13 15:46 | XMS_ITS | Encounter Summary ---
Author Organization [employer] Address [address] [facility] 7[facility] [place] [address] Care Team Providers Care Mba Intern Name Role Phone Giana Isbell MD Primary Care Provider [phone] Reason for Referral * Consultation (Routine) - Authorized Specialty Diagnoses / Procedures Referred By Contharman t Referred To Contact Cardiology Diagnoses SOB (shortness of breath) Giana Isbell MD [address] [place] [address] Phone: tel: fax: Kavon Berumen MD [address] [facility] Floor 1 [place] [address] Phone: tel: fax: Referral ID Status Reason Start Date Expiration Date Visits Requested Visits Authorized [id number] Authorized Specialty Services Required 12/18/2024 1 1 Encounter Details Date Type Department Care Team (Late st Contact Info) Description 12/19/2023 Orders Only [facility] CHC MED & PEDS [address] [place] [address] Giana Isbell MD [address] [place] [address] SOB (shortness of breath) (Primary Dx) Social History Tobacco Use Types Packs/Day Years [...] Description 06/11/2024 9:00 AM EDT Office Visit [facility] OPTOMETRY [address] [place] [address] Morteza, Dawna, OD [address] [place] [address] Scheduled Referrals Name Type Priority Associated Diagnoses Order Schedule Referral to Cardiology Outpatient Referral Routine SOB (shortness of breath) Expected: 12/19/2023 (Approximate), Expires: 12/18/2024 documented as of this encounter Procedures Procedure Name Priority Date/Time Associated Diagnosis Comments US BREAST NDL CORE BIOPSY RT Routine 01/18/2024 8:00 AM EST BI MAMMOGRAM DIAGNOSTIC TOMOSYNTHESIS RIGHT Routine 01/18/2024 8:00 AM EST documented in this encounter Results * US BREAST NDL CORE BIOPSY RT (01/18/2024 8:00 AM EST) Anatomical Region Laterality Modality Abdomen Ultrasound 01/18/2024 8:00 AM EST Narrative 01/18/2024 9:40 AM EST ? [facility] ? [address] ?[place] [address] ? Ultrasound Report ? Signed with Addenda ? Patient: Tamia SánchezTory ?MR#: [id number] ?? [id number] ? : 1965 ?Acct:[id number] ? Age/Sex: 58 / F ?ADM Date: 01/18/24 ? Loc: HO.MAMMO ? Attending Dr: Pardeep Marcos MD ? Ordering Physician: Pardeep Marcos MD ?? Date of Service: 01/18/24 ?? Procedure(s): US breast ndl core biopsy RT ?? Accession Number(s): [id number] ? cc: Giana Isbell MD; Pardeep Marcos [...] instructions. Final pathology results are pending. ? / breast ndl core biopsy RT ?? IMPRESSION: [...] ??Carissa Raza DO ??01/18/2024 09:37 AM EST ? Dictated By: ?Carissa Raza DO ? Signed By: ?<Electronically signed by Carissa Raza, DO in OV> ? 01/18/24 0937 ? DD/ 0800 ? TD/TT: 01/18/24 0835 ? Traffic Police Officer: ? Procedure Note Trish, Image - 01/25/2024 [facility] [address] [place] [address] Dr. [place], [place] [address] Ultrasound Report Signed with Fani Patient: Joshua BushZina#: [id number] : 1965Acct:[id number] Age/Sex: 58 / FADM Date: 01/18/24 Loc: J CARLOS.LETI Attending Dr: Pardeep Marcos MD Ordering Physician: Pardeep Marcos MD Date of Service: 01/18/24 Procedure(s): US breast ndl core biopsy RT Accession Number(s): [id number] cc: Giana Isbell MD; Pardeep Marcos MD [...] Carissa Raza DO in OV> 01/18/249[address] DD/ 08 TD/TT: 01/18/24 0835 Traffic Police Officer: [facility] External Provider IMG US PROCEDURES Edited Result - Final * BI Mammogram Diagnostic Tomosynthesis Right (01/18/2024 8:00 AM EST) Anatomical Region Laterality Modality Breast Right Mammography 01/18/2024 8:00 AM EST Narrative 01/18/2024 9:40 AM EST ? [facility] ? [address] ?[place] [address] ? Mammography Report ? Signed with Addenda ? Patient: Tory Bush ?MR#: [id number] ?? [id number] ? : 1965 ?Acct:[id number] ? Age/Sex: 58 / F ?ADM Date: 12/11/24 ? Loc: HO.MAMMO ? Attending Dr: Pardeep Marcos MD ? Ordering Physician: Pardeep Marcos MD ?Results: ? Date of Service: 01/18/24 ?Follow Up: ? Procedure(s): MM tomosynthesis diagnostic RT ?? Accession Number(s): [id number] ? cc: Giana Isbell MD; Pardeep Marcos [...] ??Carissa Raza DO ??01/18/2024 09:37 AM EST ? Dictated By: ?Carissa Raza DO ? Signed By: ?<Electronically signed by Carissa Raza, DO in OV> ? 01/18/24 0937 ? DD/ 0800 ? TD/TT: 01/18/24 0835 ? Traffic Police Officer: ? Procedure Note Trish, Image - 01/25/2024 [facility] [address] [place] [address] Mammography Report Signed with Fani Patient: Pat Bush#: [id number] : 1965Acct:[id number] Age/Sex: 58 / FADM Date: 01/18/24 Loc: JOEO Attending Dr: Pardeep Marcos MD Ordering Physician: Pardeep Marcosesults: Date of Service: 01/18/24Follow Up: Procedure(s): MM tomosynthesis diagnostic RT Accession Number(s): [id number] cc: Giana Isbell MD; Pardeep Marcos MD [...] signed by Carissa Raza DO in OV> 01/18/24 0937 DD/ 0800 TD/TT: 01/18/24 0835 Traffic Police Officer: [facility] External Provider IMG BI PROCEDURES Edited Result - Final documented in this encounter Visit Diagnoses Diagnosis SOB (shortness of breath)- Primary Shortness of breath documented in this encounter Additional Health Concerns Assessment Noted Time PHQ-9 Depression Total Score: 7 07/30/19 23 10:13 AM EDT documented as of this encounter Care Teams Mba Intern Relationship Specialty Start Date End Date Giana Isbell MD [address] [place] [address] PCP - General Internal Medicine 09/07/18 documented as of this encounter
--- OUTSIDE RECORDS SUMMARY | 2024-03-13 15:46 | XMS_ITS | Encounter Summary ---
Author Organization [employer] Address 75 [facility] 7t [place] [address] Care Team Providers Care Sales And Support Center Agent Name Role Phone Giana Isbell MD Primary Care Provider [phone] Reason for Visit * Reason Onset Date Comments Nurse Triage 03/01/2023 Encounter Details Date Type Department Care Team ([facility] Contact Info) Description 03/01/2023 Telephone [facility] MEDICINE [address] [place] [address] Giana Isbell MD [address] [place] [address] Nurse Triage Social History Tobacco Use Types Packs/Day Years [...] encounter Miscellaneous Notes * Telephone Encounter - Amaris Freedman RN - 03/01/2023 12:46 PM EST Triage call with [employer] [place] [id number] Pt reports having surgery and not having any pain medication. Pt had a partial left thyroidectomy 02/28/23 @ [facility] and oxycodone 5mg po was ordered . Prescription was sent to [facility] pharmacy. Pt was not aware of that and will call pharmacy to obtain this pain medication. Pt will call again if further questions. Protocol Used: Medication Question Call (Adult) Protocol-Based Disposition: Home Care Positive Triage Question: * Caller has medicine question only, adult not sick, and triager answers question * All higher-acuity triage questions were negative Care Advice Discussed: * Reasons To Call Back - You have any more questions - You become worse * Telephone Encounter - Sander Everett - 03/01/2023 11:21 AM EST Tc from patient requesting pain medication due to surgery in glands stated was not given any medication to help with pain documented in this encounter Plan of Treatment Upcoming Encounters Date Type Department Care Team (Late st Contact Info) Description 06/11/2024 9:00 AM EDT Office Visit [facility] OPTOMETRY [address] [place], [place] [phone] Dawna Pro, OD [address] [place] [address] documented as of this encounter Visit Diagnoses Not on filedocumented in this encounter Additional Health Concerns Assessment Noted Time PHQ-9 Depression Total Score: 7 07/30/19 23 10:13 AM EDT documented as of this encounter Care Teams Sales And Support Center Agent Relationship Specialty Start Date End Date Giana Isbell MD [address] [place] [address] PCP - General Internal Medicine 09/07/18 documented as of this encounter
--- OUTSIDE RECORDS SUMMARY | 2024-03-13 15:46 | XMS_ITS | Encounter Summary ---
Author Organization [employer] Address 75 [facility] 7t [place] [address] Care Team Providers Care Curriculum Counselor Name Role Phone Giana Isbell MD Primary Care Provider [phone] Reason for Visit * Reason Comments Follow-up Encounter Details Date Type Department [facility] Description 02/22/2024 3:30 PM EST Office Visit [facility] MED & PEDS [address] [place] [address] Giana Isbell MD [address] [place] [address] Functional urinary incontinence (Primary Dx); Infiltrating ductal carcinoma of right breast (CMS/HCC) Social History Tobacco Use Types Packs/Day Years [...] AM EDT documented as of this encounter Last Filed Vital Signs Vital Sign Reading [...] Mass Index 27.15 02/22/2024 3:26 PM EST documented in this encounter Progress Notes * Giana Isbell MD - 02/22/2024 3:30 PM EST Subjective Patient ID: Tory Cantrell is a 58 y.o. female who presents for Follow-up. HPI Here for follow-up. History of right breast cancer diagnosed in January 2024. Patient presented herself with a palpable lump that she noticed herself for several months. Had an ultrasound-guided core biopsy on January 18, 2024 which revealed an invasive ductal carcinoma, LPS be grade 3, ER positive, SD positive H ER 2 positive 3+. Had a recent MRI prior to receivingchemotherapy. A transthoracic echocardiogram done in January 05, 2024 was normal with an ejection fraction of 61%. Mediport was already placed and patient has started chemotherapy. First dose received February 15. Ms Tory Cantrell is here requesting a commode, standard size rollator and pull- ups because she feels dizzy especially after her treatment and does not have enough time to go to the bathroom to urinate. She reports leakage of urine. Patient Active Problem List Diagnosis Asthenia Cyst of ovary Depressive disorder Dysphagia Generalized anxiety disorder Hypertension Menorrhagia with irregular cycle Migraine Acquired hypothyroidism Recurrent major depression (CMS/HCC) Otitis externa of left ear Hordeolum externum left lower eyelid Transaminitis Painful arc syndrome of right shoulder Pain in wrist Multinodular thyroid Microscopic hematuria Iron deficiency anemia Female pelvic pain Endocervical polyp Contact dermatitis Hepatitis Arthritis Acute hepatitis Abdominal pain Mass overlapping multiple quadrants of right breast Cervical cancer screening Pre-diabetes Fractured dental tenriism without loss of material Closed fracture of tooth Current Outpatient Medications on File Prior to Visit Medication Sig Dispense Refill capsaicin (Zostrix) 0.025 % cream APPLY 1 GRAM TOPICALLY TO AFFECTED AREA(S) TWICE DAILY 60 g 3 chlorhexidine (Peridex) 0.12 % solution Swish 15 mL morning and night for 1 minute. Spit, do not swallow. Do not eat or drink for 30 minutes following use. 473 mL 0 D3 Super Strength 50 MCG (2000 UT) capsule TAKE 1 CAPSULE BY MOUTH EVERY DAY 30 capsule 5 docusate sodium (Colace) 100 MG capsule TAKE 1 CAPSULE BY MOUTH AT BEDTIME NEEDED 30 capsule 5 Elastic Bandages & Supports (Knee Support) [facility] H/o knee instability. 2 each 0 famotidine (Pepcid) 20 MG tablet Take 1 tablet (20 mg) by mouth 2 times daily. 60 tablet 11 fluticasone (Flonase) 50 MCG/ACT nasal spray INSTILL 1-2 SPRAYS IN EACH NOSTRIL ONCE DAILY NEEDED 16 g 5 hydrocortisone 0.5 % cream APPLY 1 GRAM TOPICALLY TO AFFECTED AREA(S) TWICE DAILY DIRECTED 56.8 g 1 ibuprofen 600 MG tablet Take 1 tablet (600 mg) by mouth every 6 (six) hours if needed for mild painfor up to 20 doses. 20 tablet 0 Ketotifen Fumarate (Zaditor) 0.035 % solution Administer 1 drop into affected eye(s) if needed in the morning and at bedtime (itching). 10 mL 0 Levoxyl 112 MCG tablet Take 1 tablet (112 mcg) by mouth before breakfast. 30 tablet 3 lidocaine (Lidoderm) 5 % patch Remove & discard patch within 12 hours or as directed by . 30 patch 3 nortriptyline (Pamelor) 50 MG capsule Take 100 mg by mouth in the morning. pantoprazole (ProtoNix) 20 MG EC tablet TAKE 1 TABLET BY MOUTH EVERY MORNING NEEDED FOR HEARTBURN QUEtiapine (SEROquel) 100 MG tablet Take 100 mg by mouth if needed at bedtime. sertraline (Zoloft) 100 MG tablet TAKE 1 AND 1/2 TABLETS BY MOUTH EVERY MORNING Stool Softener/Laxative 50-8.6 MG tablet Take 2 tablets by mouth 2 times daily. SUMAtriptan (Imitrex) 100 MG tablet TAKE 1 TABLET BY MOUTH AT ONSET OF MIGRAINE. MAY REPEAT ONCE AFTER 2 HOURS IF NEEDED. DO NOT EXCEED 2 TABLETS IN 24 HOURS 8 tablet 5 tiZANidine (Zanaflex) 2 MG tablet Take 1-2 tablets (2-4 mg) by mouth if needed at bedtime for muscle spasms. 30 tablet 0 venlafaxine (Effexor) 37.5 MG tablet TAKE 1 TABLET BY MOUTH TWICE DAILY 60 tablet 5 No current facility-administered medications on file prior to visit. Allergies Allergen Reactions Acetaminophen Unknown Hydrocodone Other and Hives Other reaction(s): Altered Heart Rate Outside Source Comment: Other reaction(s): Altered Heart Rate Hydrocodone-Acetaminophen Penicillin G Rash Penicillins Rash, Unknown and Hives Review of Systems Constitutional: Positive for activity change, appetite change and fatigue. Negative for diaphoresisand fever. Respiratory: Negative for shortness of breath. Gastrointestinal: Positive for nausea. Objective BP 117/73 (BP Location: Left arm, Patient Position: Sitting, BP Cuff Size: Adult long) Pulse 76 Temp 97.9 ??F (36.6 ??C) (Oral) Resp 20 Ht 5' (1.524 m) Wt 139 lb (63 kg) SpO2 94% BMI 27.15 kg/m?? Physical Exam Constitutional: General: She is not in acute distress. Appearance: Normal appearance. She is not ill-appearing, toxic-appearing or diaphoretic. Cardiovascular: Rate and Rhythm: Normal rate. Pulses: Normal pulses. Skin: Comments: Port in place on the left anterior chest. NO redness/swelling. Neurological: Mental Status: She is alert. Assessment/Plan Diagnoses and all orders for this visit: Functional urinary incontinence Comments: Ua ordered pt will be contacted w/ results. The commode, Rollator, Pull ups will be prescribed. Infiltrating ductal carcinoma of right breast (CMS/HCC) Comments: Follow up w/ oncology as scheduled. Ms Tory Cantrell was very emotional during the encounter. Emotional support provided. Aware to contact the office if further help is needed in that regard. documented in this encounter Plan of Treatment Upcoming Encounters Date Type Department Care Team (Late st Contact Info) Description 06/11/2024 9:00 AM EDT Office Visit [facility] OPTOMETRY [address] [place], [place] [address] Morteza, Dawna, OD [address] [place] [address] documented as of this encounter Procedures Procedure Name Priority Date/Time Associated Diagnosis Comments POCT URINALYSIS DIPSTICK Routine 02/22/2024 4:33 PM EST Functional urinary incontinence documented in this encounter Results * (ABNORMAL) POCT Urinalysis (02/22/2024 4:33 PM [...] Media Lot # [id number] Lot# Expiration Date , Urine 02/22/2024 4:33 PM EST us Giana Isbell MD POINT OF CARE TEST ENTER/ED IT ORDERABLES Final Result documented in this encounter Visit Diagnoses Diagnosis Functional urinary incontinence- Primary Infiltrating ductal carcinoma of right breast (CMS/HCC) documented in this encounter Additional Health Concerns Assessment Noted Time PHQ-9 Depression Total Score: 7 07/29/ 23 10:13 AM EDT documented as of this encounter Care Teams Curriculum Counselor Relationship Specialty Start Date End Date Giana Isbell MD [address] [place] [address] PCP - General Internal Medicine 09/07/18 documented as of this encounter
--- OUTSIDE RECORDS SUMMARY | 2024-03-13 15:46 | XMS_ITS | Encounter Summary ---
Author Organization [employer] Address [address] [facility] [address] 7t [place] [address] Care Team Providers Care Biomass Power Plant Manager Name Role Phone Giana Isbell MD Primary Care Provider [phone] Encounter Details Date Type Department Care Team ([facility] st Contact Info) Description 05/06/[address] [facility] CHC MED & PEDS [address] [place] [address] Giana Isbell MD [address] [place] [address] Acquired hypothyroidism (Primary Dx) Social History Tobacco Use Types [...] Description 06/11/2024 9:00 AM EDT Office Visit [facility] OPTOMETRY [address] [place], [place] [phone] Morteza, Dawna, OD [address] [place] [address] documented as of this encounter Procedures Procedure Name Priority Date/Time Associated Diagnosis Comments TSH W/REFLEX TO FT4 Routine 02/06/2024 10:45 AM EST Acquired hypothyroidism documented in this encounter Results * (ABNORMAL) TSH W/Reflex to FT4 (02/06/2024 10:45 AM EST) TSH reflex Free T4 10.06(H) 0.32 - 4.0 uIU/mL [facility] Blood Venous blood specimen / Unknown 02/06/2024 10:45 AM EST 02/06/2024 10:45 AM EST Giana Isbell MD LAB BLOOD ORDERABLES Final Result [facility] [address] [place] [address] [phone] documented in this encounter Visit Diagnoses Diagnosis Acquired hypothyroidism- Primary Unspecified hypothyroidism documented in this encounter Additional Health Concerns Assessment Noted Time PHQ-9 Depression Total Score: 7 07/30/19 23 10:13 AM EDT documented as of this encounter Care Teams Biomass Power Plant Manager Relationship Specialty Start Date End Date Giana Isbell MD [address] [place] [address] PCP - General Internal Medicine 09/07/18 documented as of this encounter
--- OUTSIDE RECORDS SUMMARY | 2024-03-13 15:46 | XMS_ITS | Encounter Summary ---
Author Organization [employer] Address 75 [facility] 7t [place] [address] Care Team Providers Care Associate Application Developer Name Role Phone Giana Isbell MD Primary Care Provider [phone] Reason for Visit * Reason Comments Med Refill Encounter Details Date Type Department Care Team ([facility] Contact Info) Description 03/31/2022 Refill [facility] CHC MED & PEDS [address] [place] [address] Giana Isbell MD [address] [place] [address] Acquired hypothyroidism (Primary Dx); Other constipation; Depressive disorder; Seasonal allergies; Migraine without aura and without status migrainosus, not intractable Social History Tobacco Use Types Packs/Day Years [...] Upcoming Encounters Date Type Department Care Team ([facility] Contact Info) Description 06/11/2024 9:00 AM EDT Office Visit [facility] OPTOMETRY [address] [place], [place] [phone] Morteza, Dawna, OD [address] [place] [address] documented as of this encounter Visit Diagnoses Diagnosis Acquired hypothyroidism- Primary Unspecified hypothyroidism Other constipation Depressive disorder Depressive disorder, not elsewhere classified Seasonal allergies Allergic rhinitis, cause unspecified Migraine without aura and without status migrainosus, not intractable documented in this encounter Care Teams Associate Application Developer Relationship Specialty Start Date End Date Giana Isbell MD [address] [place] [address] PCP - General Internal Medicine 09/07/18 documented as of this encounter
--- OUTSIDE RECORDS SUMMARY | 2024-03-13 15:46 | XMS_ITS | Encounter Summary ---
Author Organization [employer] Address 75 [facility] 7t [place] [address] Care Team Providers Care Die Try Out Worker Stamping Name Role Phone Giana Isbell MD Primary Care Provider [phone] Reason for Visit * Reason Onset Date Comments Transition Of Care (Tcm) 02/16/2024 Encounter Details Date Type Department Care Team ([facility] Contact Info) Description 02/16/2024 Telephone [facility] CHC MED & PEDS [address] [place] [address] Giana Isbell MD [address] [place] [address] Transition Of Care (Tcm) Social History Tobacco Use Types Packs/Day Years [...] encounter Miscellaneous Notes * Telephone Encounter - Mary Davis MA - 02/16/2024 11:57 AM EST Pt got dx with breast CA, stating Chemo tomorrow. Wants more hours for [employer]; also a Rx for diapers and under pads because they may need it. Moved appt from 03/05 to 02/[address] Isbell to go over this. Also informed to call their [employer] agency and request an evaluation to increase hours services. Agreed with plan. documented in this encounter Plan of Treatment Upcoming Encounters Date Type Department Care Team (Late st Contact Info) Description 06/11/2024 9:00 AM EDT Office Visit [facility] OPTOMETRY [address] [place] [address] Morteza, Dawna, OD [address] [place] [address] documented as of this encounter Visit Diagnoses Not on filedocumented in this encounter Additional Health Concerns Assessment Noted Time PHQ-9 Depression Total Score: 7 07/30/19 23 10:13 AM EDT documented as of this encounter Care Teams Die Try Out Worker Stamping Relationship Specialty Start Date End Date Giana Isbell MD [address] [place] [address] PCP - General Internal Medicine 09/07/18 documented as of this encounter
--- OUTSIDE RECORDS SUMMARY | 2024-03-13 15:46 | XMS_ITS | Encounter Summary ---
Author Organization [employer] Address 75 [facility] 7t [place] [address] Care Team Providers Care Laborer Wrecking And Salvaging Name Role Phone Giana Isbell MD Primary Care Provider [phone] Reason for Visit * Reason Onset Date Comments Triage 06/03/2022 Encounter Details Date Type Department Care Team ([facility] Contact Info) Description 06/03/2022 Telephone [facility] MEDICINE [address] [place] [address] Giana Isbell MD [address] [place] [address] Triage Social History Tobacco Use Types Packs/Day Years Used Date Smoking Tobacco: Never Assessed Depression Answer Date Recorded Patient Health Questionnaire-9 [...] Orientation Straight 12/07/2021 10 :16 AM EDT COVID-19 Exposure Response Date Recorded In the last 10 days, have yo u been in contact with someone who was confirmed or suspected to have Coronavirus/COVID-19? No / Unsure 07/29/2022 9:47 AM EDT documented as of this encounter Miscellaneous Notes * Telephone Encounter - Elle Anderson - 06/03/2022 1:19 PM EDT Symptom: Hip Pain - Not From Injury Outcome: Schedule an urgent appointment (within 1 hour) or talk to a nurse or provider soon Reason: Severe pain now The caller accepted this outcome Please contact at [phone] Kyrgyz documented in this encounter Plan of Treatment Upcoming Encounters Date Type Department Care Team (Late st Contact Info) Description 06/11/2024 9:00 AM EDT Office Visit [facility] OPTOMETRY [address] [place] [address] MortezaDawna priest, OD [address] [facility] [place] [address] documented as of this encounter Visit Diagnoses Not on filedocumented in this encounter Care Teams Laborer Wrecking And Salvaging Relationship Specialty Start Date End Date Giana Isbell MD [address] [place] [address] PCP - General Internal Medicine 09/07/18 documented as of this encounter
--- OUTSIDE RECORDS SUMMARY | 2024-03-13 15:46 | XMS_ITS | Encounter Summary ---
Author Organization [employer] Address 75 [facility] 7t [place] [address] Care Team Providers Care Public Address Systems Mechanic Name Role Phone Giana Isbell MD Primary Care Provider [phone] Reason for Visit * Reason Onset Date Comments Nurse Triage 08/02/2023 Encounter Details Date Type Department Care Team ([facility] Contact Info) Description 08/02/2023 Telephone [facility] CHC MED & PEDS [address] [place] [address] Giana Isbell MD [address] [place] [address] Nurse Triage Social History Tobacco Use Types [...] Telephone Encounter - Amaris Freedman RN - 08/02/2023 10:38 AM EDT Triage call with [employer] Bench [employer]er [employer] ID [id number] Pt reports a small lump in the corner of lower left eye lid. Pt reports it is red, itchy, painful. This doesn't effect vision and Pt has never had this before. Pt has had this for more than a week and it is increasing in size. No available apts ion [facility] . Pt is advised to come to [facility] to be seen by provider and Pt agrees. Hours given open till 8pm today. Insurance is verified as active. Protocol Used: Eye Pain and Other Symptoms (Adult) Protocol-Based Disposition: See in Office or Video Visit Today Video visit not offered Positive Triage Questions: * Eye pain present > 24 hours * Patient wants to be seen * All higher-acuity triage questions were negative Care Advice Discussed: * Reassurance and Education - Mild Eye Pain * Reasons To Call Back - Pain increases - Pain lasts over 24 hours - Pus or yellow/green discharge occurs - Blurred vision occurs - You become worse * Telephone Encounter - Phoebe Cantrell - 08/02/2023 10:18 AM EDT Symptom: Skin Lump eye lid area Outcome: Schedule an appointment to be seen within 3 days Reason: Caller denied all higher acuity questions The caller accepted this outcome documented in this encounter Plan of Treatment Upcoming Encounters Date Type Department Care Team (Late st Contact Info) Description 06/11/2024 9:00 AM EDT Office Visit [facility] OPTOMETRY [address] [place] [address] MortezaDawna priest, OD [address] [place] [address] documented as of this encounter Visit Diagnoses Not on filedocumented in this encounter Additional Health Concerns Assessment Noted Time PHQ-9 Depression Total Score: 7 07/30/19 23 10:13 AM EDT documented as of this encounter Care Teams Public Address Systems Mechanic Relationship Specialty Start Date End Date Giana Isbell MD [address] [place] [address] PCP - General Internal Medicine 09/07/18 documented as of this encounter
--- OUTSIDE RECORDS SUMMARY | 2024-03-13 15:46 | XMS_ITS | Encounter Summary ---
Author Organization [employer] Address 75 [facility] 7t [place] [address] Care Team Providers Care Pin Chaser Name Role Phone Giana Isbell MD Primary Care Provider [phone] Reason for Visit * Reason Onset Date Comments Chart Prep 02/21/2024 Encounter Details Date Type Department Care Team ([facility] Contact Info) Description 02/21/2024 Telephone [facility] CHC MED & PEDS [address] [place] [address] Giana Isbell MD [address] [place] [address] Chart Prep Social History Tobacco Use Types Packs/Day Years [...] encounter Miscellaneous Notes * Telephone Encounter - Caitie Morales [place] - 02/21/2024 1:59 PM EST Chart Prep Labs: done Images: done Vaccines due: yes Referrals: pending appt Screenings: STI screening Overdue care gaps: Sbirt, SDOH, PHQ-9 documented in this encounter Plan of Treatment Upcoming Encounters Date Type Department Care Team (Late st Contact Info) Description 06/11/2024 9:00 AM EDT Office Visit [facility] OPTOMETRY [address] [place] [address] Morteza, Dawna, OD [address] [place] [address] documented as of this encounter Visit Diagnoses Not on filedocumented in this encounter Additional Health Concerns Assessment Noted Time PHQ-9 Depression Total Score: 7 07/30/19 23 10:13 AM EDT documented as of this encounter Care Teams Pin Chaser Relationship Specialty Start Date End Date Giana Isbell MD [address] [place] [address] PCP - General Internal Medicine 09/07/18 documented as of this encounter
--- OUTSIDE RECORDS SUMMARY | 2024-03-13 15:46 | XMS_ITS | Encounter Summary ---
Author Organization [employer] Address [address] [facility] [address] 7t [place] [address] Care Team Providers Care Machine Chocolate Molder Name Role Phone Giana Isbell MD Primary Care Provider [phone] Encounter Details Date Type Department Care Team ([facility] st Contact Info) Description 02/06/2024 Orders Only [facility] CHC MED & PEDS [address] [place] [address] Giana Isbell MD [address] [place] [address] Acquired hypothyroidism (Primary Dx) Social History Tobacco [...] Description 06/11/2024 9:00 AM EDT Office Visit [facility] OPTOMETRY [address] [place] [address] Morteza, Dawna, OD [address] [place] [address] Scheduled Orders Name Type Priority Associated Diagnoses Orde r Schedule TSH W/Reflex to FT4 Lab Routine Acquired hypothyroidism Expected: 02/06/2024 (Approximate), Expires: 02/05/2025 documented as of this encounter Procedures Procedure Name Priority Date/Time Associated Diagnosis Comments BI MR BREAST W AND WO CONTRAST BILATERAL Routine 02/06/2024 9:33 AM EST documented in this encounter Results * BI MR Breast w and w/o Contrast Bilateral (02/06/2024 9:33 AM EST) Anatomical Region Laterality Modality Breast Bilateral Magnetic Resonan ce 02/06/2024 9:33 AM EST Narrative 02/10/2024 3:39 PM EST ? [facility] ?[address] ?[place] [address] ? Magnetic Resonance Report ? Signed with Addenda ? Patient: Tamia Sánchez,Tory ?MR#: [id number] ?? [id number] ? : 1965 ?Acct:[id number] ? Age/Sex: 58 / F ?ADM Date: 12/30/24 ? Loc: HO.MRI ? Attending Dr: Pardeep Marcos MD ? Ordering Physician: Pardeep Marcos MD ?? Date of Service: 02/06/24 ?? Procedure(s): MR breast BI wo/w con ?? Accession Number(s): [id number] ? cc: Giana Isbell MD; Pardeep Marcos [...] Signed By: ? <Electronically signed by Carissa Raaz, DO in OV> ? 02/13/24 1035 ?? Addendum Cosigned By: ? DD/ [...] by Carissa Raza, DO in OV> ? 02/10/241535 ? DD/ ? TD/TT: 02/06/24 1016 ? Radar Air Traffic Controller: ? Procedure Note Donotuseinterpreter, Image - 02/13/[address] [address] Magnetic Resonance Report Signed with Fani Patient: Pat Bush#: [id number] : 1965Acct:[id number] Age/Sex: 58 / FADM Date: 02/06/24 Loc: HO.MRI Attending Dr: Pardeep Marcos MD Ordering Physician: Pardeep Marcos MD Date of Service: 02/06/24 Procedure(s): MR breast BI wo/w con Accession Number(s): [id number] cc: Giana Isbell MD; Pardeep Marcos MD [...] by: Carissa Raza DO 02/10/2024 03:36 PM [facility] Dictated By: Carissa Raza DO Signed By: <Electronically signed by Carissa Raza DO in OV> 02/10/24 1536 DD/ 0933 TD/TT: 02/06/24 1016 Radar Air Traffic Controller: [facility] External Provider IMG MRI PROCEDURES Edited Result - Final documented in this encounter Visit Diagnoses Diagnosis Acquired hypothyroidism- Primary Unspecified hypothyroidism documented in this encounter Additional Health Concerns Assessment Noted Time PHQ-9 Depression Total Score: 7 07/30/19 23 10:13 AM EDT documented as of this encounter Care Teams Machine Chocolate Molder Relationship Specialty Start Date End Date Giana Isbell MD [address] [place] [address] PCP - General Internal Medicine 09/07/18 documented as of this encounter
--- OUTSIDE RECORDS SUMMARY | 2024-03-13 15:46 | XMS_ITS | Encounter Summary ---
Author Organization [employer] Address 75 [facility] 7t [place] [address] Care Team Providers Care Appliquer Zigzag Name Role Phone Giana Isbell MD Primary Care Provider [phone] Encounter Details Date Type Department Care Team (Latest Contact Info) Description 11/13/2020 Abstract [facility] CONVERSIONS Dental, Provider, DDS Social History [...] Description 06/11/2024 9:00 AM EDT Office Visit [facility] OPTOMETRY [address] [place] [address] Dawna Pro, OD [address] [place] [address] documented as of this encounter Visit Diagnoses Not on filedocumented in this encounter Care Teams Appliquer Zigzag Relationship Specialty Start Date End Date Giana Isbell MD [address] [place] [address] PCP - General Internal Medicine 09/07/18 documented as of this encounter
--- OUTSIDE RECORDS SUMMARY | 2024-03-13 15:46 | XMS_ITS | Encounter Summary ---
Author Organization [employer] Address 75 [facility] 7t [place] [address] Care Team Providers Care Regional Account Director Name Role Phone Giana Isbell MD Primary Care Provider [phone] Encounter Details Date Type Department Care Team ([facility] Contact Info) Description 02/22/2024 Orders Only [facility] External Provider, [facility] Social History Tobacco Use Types Packs/Day Years [...] Description 06/11/2024 9:00 AM EDT Office Visit [facility] OPTOMETRY [address] [place] [address] Morteza, Dawna, OD [address] [place] [address] documented as of this encounter Procedures Procedure Name Priority Date/Time Associated Diagnosis Comments BI MAMMOGRAM DIAGNOSTIC TOMOSYNTHESIS LEFT Routine 02/22/2024 12:55 PM EST HEMATOXYLIN AND EOSIN STAIN Routine 02/22/2024 12:27 PM EST BI MR GUIDED BREAST BIOPSY LEFT Routine 02/22/2024 11:14 AM EST documented in this encounter Results * BI Mammogram Diagnostic Tomosynthesis Left (02/22/2024 12:55 PM EST) Anatomical Region Laterality Modality Breast Left Mammography 02/22/2024 12:5 5 PM EST Narrative 02/23/2024 9:49 AM EST ? [facility] ?[address] ?[place] [address] ? Mammography Report ? Signed with Addenda ? Patient: Tamia Sánchez,Tory ?MR#: [id number] ?? [id number] ? : 1965 ?Acct:[id number] ? Age/Sex: 58 / F ?ADM Date: 01/15/25 ? Loc: HO.MRI ? Attending Dr: Rhona Badillo MD ? Ordering Physician: Rhona Badillo MD ?Results: 1Negati ?? ve ? Date of Service: 02/22/24 ?Follow Up: 1 Year From Orig ?? inal Mammogram ? Procedure(s): MM tomosynthesis diagnostic LT ?? Accession Number(s): [id number] ? cc: Giana Isbell MD; Rhona Badillo [...] 1% lidocaine with epinephrine. ? NEEDLE: ?? Fluxc 9-gauge vacuum assisted core biopsy device. ? [...] will be issued. ? Electronically signed by: ??Carsisa Raza DO ??02/23/2024 09:47 AM EST ? Dictated By: ?Carissa Raza DO ? Signed By: ?<Electronically signed by Carissa Raza, DO in OV> ? 02/23/24 0947 ? DD/ 1255 ? TD/TT: 02/22/24 1305 ? Antenna Installer: ? Procedure Note Trish, Image - 03/02/[address] [address] Mammography Report Signed with Fani Patient: Pat Bush#: [id number] : 1965Acct:[id number] Age/Sex: 58 / FADM Date: 02/22/24 Loc: HO.MRI Attending Dr: Rhona Badillo MD Ordering Physician: Rhona Badilloesults: 1Negati ve Date of Service: 02/22/24Follow Up: 1 Year From Orig inal Mammogram Procedure(s): MM tomosynthesis diagnostic LT Accession Number(s): [id number] cc: Giana Isbell MD; Rhona Badillo MD [...] without and with use of gadolinium contrast. AteEasel introducer localization system is used with grid. LESION: Left retroareolar lower outer breast anterior depth.. LOCAL ANESTHESIA: 6 mL 1% lidocaine; 4 mL 1% lidocaine with epinephrine. NEEDLE: [employer] 9-gauge vacuum assisted core biopsy device. APPROACH: [...] Raza DO in OV> 02/23/24 0947 DD/ 1255 TD/TT: 02/22/24 1305 Antenna Installer: [facility] External Provider IMG BI PROCEDURES Edited Result - Final * Hematoxylin and Eosin Stain (02/22/2024 12:27 PM EST) 02/22/2024 12:2 7 PM EST 02/22/2024 1:32 PM EST [facility] - 02/24/2024 2:51 PM EST ----- ------- Name: Tory Bush ?Age/Sex: 58/F ? : 1965 Unit#: [id number] ?? Attend Dr: Rhona Badillo MD ?Re02/22/24 ?Status: DEP REF ? Location: HO.MRI ?Disch: ? ----- ------- SPEC : [id number] ?RECD: 02/22/24 ? STATUS: ??SOUT ? REQ NUM: [id number] ? TEQUILA: 02/22/24-7 ? SUBM DR: Carissa Raza DO ? ENTERED: ??02/22/24 ?SP TYPE: Surgical ? OTHR DR: Giana [...] Copies To: ?? Giana Isbell MD ?? [facility] ?? [address] ?? [place] [address] ?? [phone] ?? Rhona Badillo MD ?? [facility] ?? [address] ?? [place] [address] ?? [phone] ? CONTINUED ON NEXT PAGE ----- ------- Name: Tory Bush ?Age/Sex: 58/F ? : 1965 Unit#: [id number] ?? Attend Dr: Rhona Badillo MD ?Re02/22/24 ?Status: DEP REF ? Location: HO.MRI ?Disch: ? ----- ------- SPEC : [id number] ?RECD: 02/22/24 ? STATUS: ??SOUT ? REQ NUM: [id number] ? TEQUILA: 02/22/24 ? SUBM DR: Carissa Raza DO ? ENTERED: ??02/22/24 ?SP TYPE: Surgical ? OTHR DR: Giana Isbell MD ?Rhona Badillo MD ORDERED: ??HE Stain/2, Gross Micro L4 ? COMMENTS: As per the specimen requisition slip the specimen is ?collected at 1227 and placed in formalin at 1240. Copies To: ??(Continued) ?? Carissa Raza DO ?? [address] ?? [place] [address] ?? [phone] ----- ------- Signed (signature on file) Osman Ríos MD 02/24/24 1451 ? ----- ------- ? END OF REPORT ? us Generic External Data Provider LAB BLOOD ORDERAB LES Final Result [facility] [address] [place] [address] [phone] * BI MR Guided Breast Biopsy Left (02/22/2024 11:14 AM EST) Anatomical Region Laterality Modality Breast Left Magnetic Resonan ce 02/22/2024 11:1 4 AM EST Narrative 02/23/2024 9:50 AM EST ? [facility] ?[address] ?[place] [address] ? Magnetic Resonance Report ? Signed with Addenda ? Patient: Tamia Princess,Tory ?MR#: [id number] ?? [id number] ? : 1965 ?Acct:[id number] ? Age/Sex: 58 / F ?ADM Date: 01/15/25 ? Loc: HO.MRI ? Attending Dr: Rhona Badillo MD ? Ordering Physician: Rhona Badillo MD ?? Date of Service: 02/22/24 ?? Procedure(s): MR guided breast biopsy LT ?? Accession Number(s): [id number] ? cc: Giana Isbell MD; Rhona Badillo [...] 04:34 PM EST ? Addendum Dictated By: ?Carissa Raza, [...] DD/ 1114 ? TD/TT: 02/22/24 1230 ? Antenna Installer: ? Procedure Note Donotshirleneinterpreter, Image - 03/02/2024 [place] [address] Magnetic Resonance Report Signed with Fani Patient: Pat Bush#: [id number] : 1965Acct:[id number] Age/Sex: 58 / FADM Date: 02/22/24 Loc: HO.MRI Attending Dr: Rhona Badillo MD Ordering Physician: Rhona Badillo MD Date of Service: 02/22/24 Procedure(s): MR guided breast biopsy LT Accession Number(s): [id number] cc: Giana Isbell MD; Rhona Badillo MD [...] without and with use of gadolinium contrast. Birdback introducer localization system is used with grid. LESION: Left retroareolar lower outer breast anterior depth.. LOCAL ANESTHESIA: 6 mL 1% lidocaine; 4 mL 1% lidocaine with epinephrine. NEEDLE: [employer] 9-gauge vacuum assisted core biopsy device. APPROACH: [...] by: Carissa Raza DO 02/23/2024 09:47 AM [facility] Dictated By: Carissa Raza DO Signed By: <Electronically signed by Carissa Raza DO in OV> 02/23/24 0947 DD/ 1114 TD/TT: 02/22/24 1230 Antenna Installer: [facility] External Provider IMG MRI PROCEDURES Edited Result - Final documented in this encounter Visit Diagnoses Not on filedocumented in this encounter Additional Health Concerns Assessment Noted Time PHQ-9 Depression Total Score: 7 07/30/19 23 10:13 AM EDT documented as of this encounter Care Teams Regional Account Director Relationship Specialty Start Date End Date Giana Isbell MD [address] [place] [address] PCP - General Internal Medicine 09/07/18 documented as of this encounter
--- OUTSIDE RECORDS SUMMARY | 2024-03-13 15:46 | XMS_ITS | Encounter Summary ---
Author Organization [employer] Address 75 [facility] 7t [place] [address] Care Team Providers Care Alternative Energy Engineer Name Role Phone Giana Isbell MD Primary Care Provider [phone] Reason for Visit * Reason Onset Date Comments Hospital Follow-up 07/22/2022 Encounter Details Date Type Department Care Team ([facility] Contact Info) Description 07/22/2022 Telephone [facility] MEDICINE [address] [place] [address] Giana Isbell MD [address] [place] [address] Hospital Follow-up Social History Tobacco Use Types Packs/Day Years [...] t he electric, gas, oil or water [employer] threatened to shut off services in your [...] encounter Miscellaneous Notes * Telephone Encounter - Hang Boyd RN - 07/22/2022 2:59 PM EDT FYI: Call placed to pt. Agrees to HDF on 07/29/22 @10:00am with PCP. * Telephone Encounter - Elle Anderson - 07/22/2022 2:47 PM EDT Tc from pt requesting to r/s HDF appt scheduled for 07/22/22 @ 2:45pm with PCP. Please contact at [phone] Somali documented in this encounter Plan of Treatment Upcoming Encounters Date Type Department Care Team (Late st Contact Info) Description 06/11/2024 9:00 AM EDT Office Visit [facility] OPTOMETRY [address] [place] [address] Dawna Pro, OD [address] [place] [address] documented as of this encounter Visit Diagnoses Not on filedocumented in this encounter Care Teams Alternative Energy Engineer Relationship Specialty Start Date End Date Giana Isbell MD [address] [place] [address] PCP - General Internal Medicine 09/07/18 documented as of this encounter
--- OUTSIDE RECORDS SUMMARY | 2024-03-13 15:46 | XMS_ITS | Encounter Summary ---
Author Organization [employer] Address [address] [facility] 7t [place] [address] Care Team Providers Care Project Administrative Assistant Name Role Phone Giana Isbell MD Primary Care Provider [phone] Encounter Details Date Type Department Care Team (Latest Contact Info) Description 02/22/2024 Travel Social History Tobacco Use Types Packs/Day Years [...] 9:00 AM EDT Office Visit [facility] OPTOMETRY [address] [place] [address] Morteza, Dawna, OD [address] [place] [address] documented as of this encounter Visit Diagnoses Not on filedocumented in this encounter Additional Health Concerns Assessment Noted Time PHQ-9 Depression Total Score: 7 07/30/19 23 10:13 AM EDT documented as of this encounter Care Teams Project Administrative Assistant Relationship Specialty Start Date End Date Giana Isbell MD [address] [place] [address] PCP - General Internal Medicine 09/07/18 documented as of this encounter
--- OUTSIDE RECORDS SUMMARY | 2024-03-13 15:46 | XMS_ITS | Encounter Summary ---
Author Organization [employer] Address 75 [facility] 7t [place] [address] Care Team Providers Care Information Security Systems Instructor Name Role Phone Giana Isbell MD Primary Care Provider [phone] Encounter Details Date Type Department Care Team (Latest Contact Info) Description 12/04/2021 Abstract [facility] CONVERSIONS Dental, Provider, DDS Social History Tobacco [...] Description 06/11/2024 9:00 AM EDT Office Visit [facility] OPTOMETRY [address] [place] [address] Dawna Pro, OD [address] [place] [address] documented as of this encounter Visit Diagnoses Not on filedocumented in this encounter Care Teams Information Security Systems Instructor Relationship Specialty Start Date End Date Giana Isbell MD [address] [place] [address] PCP - General Internal Medicine 09/07/18 documented as of this encounter
--- OUTSIDE RECORDS SUMMARY | 2024-03-13 15:46 | XMS_ITS | Encounter Summary ---
Author Organization [employer] Address 75 [facility] 7t [place] [address] Care Team Providers Care Hand Packer/Packager Name Role Phone Giana Isbell MD Primary Care Provider [phone] Encounter Details Date Type Department Care Team (Latest Contact Info) Description 02/16/2019 Abstract [facility] CONVERSIONS Dental, Provider, DDS Social History [...] Description 06/11/2024 9:00 AM EDT Office Visit [facility] OPTOMETRY [address] [place] [address] Dawna Pro, OD [address] [place] [address] documented as of this encounter Visit Diagnoses Not on filedocumented in this encounter Care Teams Hand Packer/Packager Relationship Specialty Start Date End Date Giana Isbell MD [address] [place] [address] PCP - General Internal Medicine 09/07/18 documented as of this encounter
--- OUTSIDE RECORDS SUMMARY | 2024-03-13 15:46 | XMS_ITS | Encounter Summary ---
Author Organization [employer] Address [address] [place] [address] Care Team Providers Care Vice President Quality Name Role Phone Giana Isbell MD Primary Care Provider [phone] Encounter Details Date Type Department Care Team ([facility] Contact Info) Description 02/24/2024 Telephone [facility] CHC MED & PEDS [address] [place] [address] Lou Gonzalez MD [address] [place] [address] Social History Tobacco Use Types Packs/Day Years [...] Description 06/11/2024 9:00 AM EDT Office Visit [facility] OPTOMETRY [address] [place] [address] Morteza, Dawna, OD [address] [place] [address] documented as of this encounter Visit Diagnoses Not on filedocumented in this encounter Additional Health Concerns Assessment Noted Time PHQ-9 Depression Total Score: 7 07/30/19 23 10:13 AM EDT documented as of this encounter Care Teams Vice President Quality Relationship Specialty Start Date End Date Giana Isbell MD [address] [place] [address] PCP - General Internal Medicine 09/07/18 documented as of this encounter
--- OUTSIDE RECORDS SUMMARY | 2024-03-13 15:46 | XMS_ITS | Encounter Summary ---
Author Organization [employer] Address 75 [facility] [address]t [place] [address] Care Team Providers Care Pipe Coremaker Name Role Phone Giana Isbell MD Primary Care Provider [phone] Reason for Visit * Reason Onset Date Comments Hospital Follow-up 07/20/2022 Encounter Details Date Type Department Care Team ([facility] Contact Info) Description 07/20/[address] [facility] CHC MED & PEDS [address] [place] [address] Giana Isbell MD [address] [place] [address] Hospital Follow-up Social History Tobacco Use Types Packs/Day Years Used Date Smoking Tobacco: Never Smokeless Tobacco: Never Comments Unknown Sex and Gender Information Value Date Recorded Sex Assigned at Female 12/07/2021 10:16 AM EDT Legal Sex Female 10:16 AM EDT Gender Identity Female 12/07/2021 10:16 AM EDT Sexual Orientation Straight 12/07/2021 10 :16 AM EDT documented as of this encounter Miscellaneous Notes * Telephone Encounter - Michaela Sands - 07/20/2022 2:19 PM EDT Tc from pt requesting a HDF appt. Pt was admitted at [facility] on 07/17/22 and discharged on 07/20/22 due to abdominal pain. documented in this encounter Plan of Treatment Upcoming Encounters Date Type Department Care Team ([facility] Contact Info) Description 06/11/2024 9:00 AM EDT Office Visit [facility] OPTOMETRY [address] [place] [address] Dawna Pro, OD [address] [place] [address] documented as of this encounter Visit Diagnoses Not on filedocumented in this encounter Care Teams Pipe Coremaker Relationship Specialty Start Date End Date Giana Isbell MD [address] [place] [address] PCP - General Internal Medicine 09/07/18 documented as of this encounter
--- OUTSIDE RECORDS SUMMARY | 2024-03-13 15:47 | XMS_ITS | Encounter Summary ---
Author Organization [employer] Address [address] [facility] [address] [place] [address] Care Team Providers Care Copy Supervisor Name Role Phone Giana Isbell MD Primary Care Provider [phone] Encounter Details Date Type Department Care Team ([facility] Contact Info) Description 02/16/2024 Orders Only GENERIC EXTERNAL DATA DEPARTMENT [...] Description 06/11/2024 9:00 AM EDT Office Visit [facility] [address] [place] [address] Morteza, Dawna, OD [address] [place] [address] documented as of this encounter Procedures Procedure Name Priority Date/Time Associated Diagnosis Comments IR CVC INSERT TUNNEL W PRT/DOMINATRIX Routine 02/16/2024 7:46 AM EST GLUCOSE, WHOLE BLOOD Routine 02/16/2024 7:06 AM EST documented in this encounter Results * IR cvc insert tunnel w prt/legger press operator (02/16/2024 7:46 AM EST) Anatomical Region Laterality Modality X-Ray Angiograph y 02/16/2024 7:46 AM EST Narrative 02/24/2024 2:22 PM EST ? [facility] ?[address] ?[place] [id number] ?Interventional Radiology Rpt ? Signed ? Patient: Tory Bush ?MR#: [id number] ?? [id number] ? : 1965 ?Acct:[id number] ? Age/Sex: 58 / F ?ADM Date: 02/16/24 ? Loc: HO.SSS ? Attending Dr: Rhona Badillo MD ? Ordering Physician: Rhona Badillo MD ?? Date of Service: 02/16/24 ?? Procedure(s): IR cvc insert tunnel w prt/legger press operator ?? Accession Number(s): [id number] ? cc: Giana Isbell MD; Rhona Badillo [...] records. ?? 2. Placement of a 6.6 Nigerien single-lumen power port. ? CLINICIAN: ?? Fortino [...] site. Through the peel-away sheath, the 6.6 Nigerien port catheter was ?? placed. The catheter [...] vein ?? 2. Placement of a 6.6 Nigerien single lumen power port. ?? 3. Port flushes and aspirates very well with a 10 mL syringe. No ?? pneumothorax. ? IR/IR cvc insert tunnel w prt/legger press operator ?? IMPRESSION: ?? Placement of a 6.6 Nigerien single-lumen power port. ? PLAN: ?? - [...] DD/ 0746 ? TD/TT: 02/16/24 0934 ? Tool Carrier: ? Procedure Note Donmichelle, Image - 02/24/2024 [place] [id number] Interventional Radiology Rpt Signed Patient: Pat Bush#: [id number] : 1965Acct:[id number] Age/Sex: 58 / FADM Date: 02/16/24 Loc: HO.SSS Attending Dr: Rhona Badillo MD Ordering Physician: Rhona Badillo MD Date of Service: 02/16/24 Procedure(s): IR cvc insert tunnel w prt/legger press operator Accession Number(s): [id number] cc: Giana Isbell MD; Rhona Badillo MD CLINICAL HISTORY: Right breast cancer. The patient presents to interventional radiology for placement of a port for chemotherapy. PROCEDURES: 1. Real-time ultrasound-guided access into the left internal jugular vein after documentation of selected vessel patency, and permanent image storing in the patient records. 2. Placement of a 6.6 Nigerien single-lumen power port. CLINICIAN: Fortino Muniz PA-C [...] site. Through the peel-away sheath, the 6.6 Nigerien port catheter was placed. The catheter position [...] jugular vein 2. Placement of a 6.6 Nigerien single lumen power port. 3. Port flushes and aspirates very well with a 10 mL syringe. No pneumothorax. IR/IR cvc insert tunnel w prt/legger press operator IMPRESSION: Placement of a 6.6 Nigerien single-lumen power port. PLAN: - The patient will be discharged home when stable by sedation protocol. - Port may be used immediately. This procedure was performed by Fortino Muniz PA-C, and directly supervised by Dr. Pan Electronically signed by: Jose R Pan MD 02/24/2024 02:18 PM EST RP Dictated By: Fortino Muniz Signed By: <Electronically signed by Fortino Muniz in OV> 02/24/24 1418 <Electronically signed by Jose R Pan MD in OV> 02/24/24 1421 DD/ 0746 TD/TT: 02/16/24 0934 Tool Carrier: [facility] External Provider IMG IR PROCEDURES Edited Result - Final * (ABNORMAL) Glucose, Whole Blood (02/16/2024 7:06 AM EST) Glucose, Whole Blood 142(H) 60 - 115 mg/dL [facility] Comment:METER #: [id number] 02/16/2024 7:06 AM EST 02/16/2024 7:11 AM EST Generic External Data Provider LAB BLOOD ORDERAB LES Final Result [facility] [address] [place] [phone] documented in this encounter Visit Diagnoses Not on filedocumented in this encounter Additional Health Concerns Assessment Noted Time PHQ-9 Depression Total Score: 7 07/30/19 23 10:13 AM EDT documented as of this encounter Care Teams Copy Supervisor Relationship Specialty Start Date End Date Giana Isbell MD [address], [place] [phone] PCP - General Internal Medicine 09/07/18 documented as of this encounter
--- OUTSIDE RECORDS SUMMARY | 2024-03-13 15:47 | XMS_ITS | Encounter Summary ---
Author Organization [employer] Address [address] [facility] [address] [place] [address] Care Team Providers Care Census Enumerator Name Role Phone Giana Isbell MD Primary Care Provider [phone] Encounter Details Date Type Department Care Team ([facility] Contact Info) Description 02/15/2024 Orders Only GENERIC EXTERNAL DATA DEPARTMENT [...] Description 06/11/2024 9:00 AM EDT Office Visit [facility] [address] [place] [address] Morteza, Dawna, OD [address] [place] [address] documented as of this encounter Procedures Procedure Name Priority Date/Time Associated Diagnosis Comments CBC WITH AUTO DIFFERENTIAL Routine 02/15/2024 2:03 PM EST MAGNESIUM Routine 02/15/2024 2:03 PM EST COMPREHENSIVE METABOLIC PANEL Routine 02/15/2024 2:03 PM EST documented in this encounter Results * Magnesium (02/15/2024 2:03 PM EST) Magnesium 2.2 1.6 - 2.6 mg/dL [facility] 02/15/2024 2:03 PM EST 02/15/2024 2:03 PM EST us Generic External Data Provider LAB BLOOD ORDERAB LES Final Result [facility] [address] [place] [address] [phone] * (ABNORMAL) Comprehensive Metabolic Panel (02/15/2024 2:03 PM EST) Sodium 145 135 - 145 mmol/L [facility] Potassium 4.2 3.3 - 5.1 mmol/L [facility] Chloride 109(H) 96 - 108 mmol/L [facility] Carbon Dioxide 28 22 - 29 mmol/L [facility] Anion Gap 12 12 - 20 [facility] Urea Nitrogen (BUN) 14 9 - 16 mg/dL [facility] Creatinine, Serum 0.89 0.5 - 1.4 mg/dL [facility] Estimated Glomerular Filt Rate >60 [facility] Comment:Chronic Kidney Disea se: Estimated GFR < 60 mL/min/1.11c5Reptyc Kidney Disease: Estimated GFR < 15 mL/min/1.73m2 Glucose 94 60 - 115 mg/dL [facility] Calcium 8.9 8.4 - 10.2 mg/dL [facility] Bilirubin, Total 0.4 0.0 - 1.0 mg/dL [facility] Aspartate Amino Transferase 36(H) 5 - 31 U/L [facility] Alanine Aminotransferase 33(H) 0 - 31 U/L [facility] Total Protein 7.1 6.5 - 8.0 g/dL [facility] Albumin Level 4.2 3.5 - 5.0 g/dL [facility] Alkaline Phosphatase 122(H) 39 - 117 U/L [facility] 02/15/2024 2:03 PM EST 02/15/2024 2:03 PM EST us Generic External Data Provider LAB BLOOD ORDERAB LES Final Result [facility] [address] [place] [phone] * CBC auto differential (02/15/2024 2:03 PM EST) White Blood Count 5.3 4.8 - 10.8 X10*3/uL [facility] Red Blood Count 4.87 4.20 - 5.50 X10*6/uL [facility] Hemoglobin 14.7 12.0 - 16.0 g/dl [facility] Hematocrit 43.6 37.0 - 47.0 % [facility] Mean Corpuscular Volume 89.5 80.0 - 98.0 fL [facility] Mean Corpuscular Hemoglobin 30.2 27.0 - 33.0 pg [facility] Mean Corpuscular HGB Conc 33.7 31.0 - 35.0 g/dl [facility] Red Cell Distribution Width 13.5 11.0 - 16.0 % [facility] Platelet Count 221 160 - 400 X10*3/uL [facility] Mean Platelet Volume 9.5 9.4 - 12.3 fL [facility] Neutrophils Percent Auto 57.0 45 - 73 % [facility] Imm Gran Pct Auto 0.2 0.0 - 0.4 % [facility] Lymphocytes Percent Auto 31.5 20 - 40 % [facility] Monocytes Percent Auto 9.0 2 - 11 % [facility] Eosinophils Percent Auto 1.7 0 - 4 % [facility] Basophils Percent Auto 0.6 0 - 2 % [facility] NRBC Pct Auto 0.0 0.0 - 0.2 /100WBC [facility] Neutrophils Absolute Auto 3.1 2.0 - 8.3 x10*3/uL [facility] Imm Gran Abs Auto 0.01 0.00 - 0.03 X10*3/uL [facility] Lymphocytes Absolute Auto 1.7 1.2 - 4.9 X10*3/uL [facility] Monocytes Absolute Auto 0.5 0.1 - 1.2 X10*3/uL [facility] Eosinophils Absolute Auto 0.1 0.0 - 0.4 X10*3/uL [facility] Basophils Absolute Auto 0.0 0.0 - 0.2 X10*3/uL [facility] NRBC Abs Auto 0.000 0.0 - 0.012 X10*3/uL [facility] 02/15/2024 2:03 PM EST 02/15/2024 2:03 PM EST us Generic External Data Provider LAB BLOOD ORDERAB LES Final Result [facility] [address] [place] [address] [phone] documented in this encounter Visit Diagnoses Not on filedocumented in this encounter Additional Health Concerns Assessment Noted Time PHQ-9 Depression Total Score: 7 07/30/19 23 10:13 AM EDT documented as of this encounter Care Teams Census Enumerator Relationship Specialty Start Date End Date Giana Isbell MD [address] [place] [id number] PCP - General Internal Medicine 09/07/18 documented as of this encounter
[2024-03-13] MEDS: Meclizine HCl 25 MG TABLET PO (15:59)
[2024-03-13 16:06] LABS: Alkaline Phosphatase 161 U/L (39-117)
[2024-03-13] MEDS: iohexoL 350 MG/ML 100 ML INFUS..BTL IV (16:27)
[2024-03-13 16:39] LABS: Troponin-I High Sensitivity 5.8 ng/L (<3.5-17.0)
[2024-03-13] MEDS: cefEPime HCl/D5W 2 GM/50 ML PIGGYBACK IV (18:50)
--- NOTE | 2024-03-13 21:40 | PHA.MEDREC ---
Pharmacy Consult ? Medication Reconciliation Pharmacy has completed the medication reconciliation. Spoke to patient and family at bedside to confirm medication list. Patient said she is not taking flonase nasal spray, loratadine, miralax, sertraline, tramadol nor venlafaxine. She has chemotherapy on every 2 weeks (last chemo was on 03/08/24)and takes {dexamethasone on tuesday, chemo on , dexamethasone on tuesday and tuesday}. She was adamant that she is still using the erythromycin eye ointment, she swishes and swallows the magic mouthwash once to twice a day prn. She said she can take the generic levothyroxine. She cannot confirm the dose of ondansetron. Last dose of medications was yesterday, except she did take levothyroxine today 03/13/24.
--- NOTE | 2024-03-13 22:19 | PM.IMHP ---
History of Present Illness Date of Service: 03/13/24 Attending physician on admission: Kei Chavez Chief Complaint: SOB, fatigue Patient is a 58-year-old female with a past medical invasive ductal right breast cancer current P undergoing chemotherapy with Dr. Badillo, last chemotherapy session was 4 days ago, anemia, GERD, hypothyroid, who presented to the ED today after rapid response was called during her oncology appointment due to chest pain, shortness of breath and fatigue. She reports a dry cough for few days as well as chronic nausea and diarrhea. No fever, chills, vomiting. She denies a headache, runny nose or congestion. Also denies any lower extremity edema. Chest pain has resolved. Review of Systems Constitutional: Constitutional: Denies body ache(s), Denies chills, Denies fatigue, Denies fever(s) and Denies headache(s) Eyes: Eyes: Denies change in vision and Denies photophobia Comments: Swelling right upper eyelid ENT: Denies headache(s), Denies nasal congestion, Denies nasal discharge, Denies neck pain and Denies sore throat Cardiovascular: Cardiovascular: Denies chest pain, Denies rapid heart rate, Denies lightheadedness and Reports dyspnea on exertion Respiratory: Respiratory: Denies chest congestion, Reports cough, Reports dyspnea on exertion and Denies wheezing Gastrointestinal: Gastrointestinal: Denies constipation, Reports diarrhea, Reports nausea and Denies vomiting Genitourinary: Genitourinary: Denies hematuria, Denies dysuria and Denies urinary urgency Musculoskeletal: Musculoskeletal: Denies myalgias and Denies neck pain Integumentary/Breasts: Skin/Breast: Denies rash Neurologic: Denies confusion and Denies headache(s) Psychiatric: Psychiatric: Denies confusion Endocrine: Endocrine: Denies fatigue Hematologic/Lymphatic: Hematologic/Lymphatic: Denies easy bleeding and Denies easy bruising Allergic/Immunologic: Allergic/Immunologic: Denies wheezing [facility] Medical History Anemia GERD (gastroesophageal reflux disease) Fatty liver Invasive ductal carcinoma of right breast Type 2 diabetes mellitus Vitamin D deficiency Multinodular thyroid Hypothyroidism Functional capacity: independent ambulation Family History Father No problems noted. Mother Colon cancer Breast cancer Hypertension Sister Colon cancer Other Stomach cancer Surgical History History of lobectomy of thyroid Hx of colonoscopy History of esophagogastroduodenoscopy (EGD) History of carpal tunnel surgery of left wrist Tubal ligation status Hx of foot surgery Hx of epicondylectomy Hx of cholecystectomy Hx of thyroidectomy Hx of appendectomy Social History Household Members: Family Household Members Other:: 2 grand kids Housing: House Do you presently have visiting nurse or other home services: Yes (site leasing agent) Alcohol intake: never Patient Tobacco Use Status: Never used Tobacco Smoked in Last 30 Days: No Use of substances other than those prescribed or required for medical reasons: No Advance Directives: No Advance Directives Information Provided: Yes Do you have a plan to hurt others: No Plan service: No Current occupational status: unemployed 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 Gender identity: Female Narrative: No smoking, alcohol or drug use Meds Allergies Allergy/AdvReac Type Severity Reaction Status Date / Time acetaminophen [Vicodin] Allergy Unknown unk Verified 03/13/24 14:09 Penicillins AdvReac Mild HYPERTENSIO Verified 03/13/24 14:09 N hydrocodone [From VICODIN] AdvReac Unknown HIGH BP Verified 03/13/24 14:09 Active Medications: Current Medications Benzonatate (Benzonatate 100 Mg Capsule) 100 mg PO TID PRN PRN Reason: Cough Calcium Carbonate (Calcium Carbonate 750 Mg Tab.Chew) 750 mg PO Q4H PRN PRN Reason: Heartburn Enoxaparin Sodium (Enoxaparin Sodium 40 Mg/0.4 Ml Syringe) 40 mg SUBCUT Q24H JACOB Cefepime HCl (Maxipime) 2 gm in 50 mls @ 100 mls/hr IV Q8H JACOB Azithromycin 500 mg/ Sodium (Chloride) 250 mls @ 125 mls/hr IV Q24H JACOB Lactated Ringer's (Lr) 1,000 mls @ 80 mls/hr IVCONT .[id number] JACOB Magnesium Hydroxide (Milk Of Magnesia 30 Ml Oral.Susp) 30 ml PO DAILY PRN PRN Reason: Constipation Melatonin (Melatonin 3 Mg Tablet) 6 mg PO BEDTIME PRN PRN Reason: Insomnia Ondansetron HCl (Ondansetron Hcl 4 Mg/2 Ml Vial) 4 mg IVPUSH Q8H PRN PRN Reason: Nausea and Vomiting Polyethylene Glycol (Polyethylene Glycol 3350 17 Gm Powd.Pack) 17 gm PO DAILY PRN PRN Reason: Constipation Sodium Chloride (0.9 % Sodium Chloride Flush 3 Ml Syringe) 3 [facility] ?Medication ?Instructions ?Recorded ?Confirmed ?Last Taken ?Type nortriptyline 50 mg capsule 100 mg PO BEDTIME 12/20/19 03/13/24 03/12/24 History quetiapine 100 mg tablet 100 mg PO BEDTIME PRN Sleep 12/20/19 03/13/24 03/12/24 History sumatriptan succinate 100 mg tablet 50 mg PO DAILY PRN Headache 12/20/19 03/13/24 Unknown History docusate sodium 100 mg capsule 100 mg PO DAILY PRN Constipation 07/17/22 03/13/24 03/12/24 History capsaicin 0.025 % topical cream 1 appl topical BEDTIME 05/12/23 03/13/24 03/12/24 History cholecalciferol (vitamin D3) 50 50 mcg PO DAILY 05/12/23 03/13/24 03/12/24 History mcg (2,000 unit) capsule (Vitamin D3) Magic Mouthwash 10 ml PO BID PRN Mouth Pain 03/13/24 03/13/24 Unknown History Diphen/Nystat/Antacid 1:1:1 240 mL suspension diclofenac sodium 1 % topical gel 4 g topical DAILY PRN Pain 03/13/24 03/13/24 03/12/24 History nystatin-triamcinolone 100,000 1 appl topical DAILY 03/13/24 03/13/24 03/12/24 History unit/g-0.1 % topical cream Physical Exam Vital Signs and Narrative: Vital Signs: Last Vital Signs Temp 98.2 F 03/13/24 21:52 Pulse 95 03/13/24 21:52 Resp 16 03/13/24 21:52 BP 103/57 L 03/13/24 21:52 Pulse Ox 98 03/13/24 21:52 O2 Del Method Room Air 03/13/24 21:52 BMI result Body Mass Index 23.0 General: AOx3, no acute distress Resp: diminished throughout, no wheezing or rhonchi CVS: S1, S2, tachycardic, normal rhythm GI: +BS, NT, no distention Skin: Warm, dry Neuro: Cranial nerves II-XII grossly intact bilaterally. Motor grossly intact bilaterally Extremities: No LE edema Psych: Appropriate affect Const: General: No confusion Orientation/consciousness: No confusion Eyes: Direct Ophthalmoscopy: No photophobia Neuro: General: No confusion Results Labs 03/13/24 14:52 03/13/24 14:52 Labs: Laboratory Results - last 24 hr 03/13/24 03/13/24 03/13/24 14:52 16:05 18:39 MCV 88.2 MCH 29.9 MCHC 33.9 RDW 14.5 Plt Count 148 L D MPV 9.7 Immature Gran % (Auto) Cancelled Neut % (Auto) Cancelled Lymph % (Auto) Cancelled Floyd % (Auto) Cancelled Eos % (Auto) Cancelled Baso % (Auto) Cancelled Lymph # (Auto) Cancelled Floyd # (Auto) Cancelled Eos # (Auto) Cancelled Baso # (Auto) Cancelled Abs Immat Gran (auto) Cancelled Absolute Neuts (auto) Cancelled Absolute Nucleated RBC 0.000 Nucleated RBC % (auto) 0.0 Neutrophils % (Manual) 70 Band Neutrophils % 2 L Lymphocytes % (Manual) 26 Monocytes % (Manual) 1 L Eosinophils % (Manual) 1 Abs Neuts (Manual) 5.4 Lymphocytes # (Manual) 2.0 Monocytes # (Manual) 0.1 Eosinophils # (Manual) 0.1 Toxic Granulation PRESENT Toxic Vacuolation PRESENT Dohle Bodies PRESENT Platelet Estimate NORMAL Plt Morphology Comment NORMAL RBC Morphology NORMAL PT 11.1 INR 1.0 D-Dimer High Sensitivty 349 Anion Gap 13 Estim Creat Clear Calc 54.5 Estimated GFR > 60 Random Glucose 123 H Lactic Acid 1.0 Calcium 9.0 Magnesium 1.9 Total Bilirubin 0.5 Direct Bilirubin 0.1 AST 33 H ALT 38 H Alkaline Phosphatase 161 H Troponin I High Sens 6.2 D 5.8 B-Natriuretic Peptide < 10 Total Protein 6.7 Albumin 3.7 Influenza Type A (PCR) NEGATIVE Influenza Type B (PCR) NEGATIVE RSV RNA Qual (PCR) NEGATIVE SARS-CoV-2 RNA (RT-PCR) NEGATIVE Imaging Radiologist's Impressions: Impressions Chest X-Ray 03/13/24 14:39 IMPRESSION: No acute cardiopulmonary abnormality. Electronically signed by: Leonardo Larose MD 03/13/2024 03:49 PM EST RP Chest CTA 03/13/24 16:24 IMPRESSION: 1. No evidence of pulmonary embolus. Normal caliber pulmonary arteries. 2. No evidence of acute aortic syndrome. 3. Small airway thickening, endobronchial mucous plugging, and subtle groundglass changes left lower lobe suspicious for a subtle bronchopneumonia. Associated mild air trapping. Lungs otherwise clear. 4. No lymphadenopathy. 5. Small type I hiatus hernia. 6. Left chest port in good position. Electronically signed by: Ant Cole MD 03/13/2024 05:00 PM EST RP Assessment and Plan (1) Sepsis: Status: Acute (2) Bronchopneumonia: Status: Acute Plan Patient is a 58-year-old female with a past medical invasive ductal right breast cancer currently undergoing chemotherapy with Dr. Badillo, last chemotherapy session was 4 days ago, anemia, GERD, hypothyroid, who presented to the ED today after rapid response was called during her oncology appointment due to chest pain, shortness of breath and fatigue. Sepsis secondary to bronchopneumonia - WBC 7.5, tachycardic and tachypneic, lactic acid normal, blood cultures x2 pending, not severe sepsis - chest x-ray normal - CTA with bronchopneumonia, no pulmonary embolus - COVID/flu/RSV negative - blood pressures soft, given 2 L NS in ED, continue LR 80 mL/HR - given cefepime in ED, continue and add azithromycin - follow CBC and BMP Breast cancer - followed by Dr. Badillo Anemia - H&H normal GERD - continue home meds Hypothyroid - continue home meds Med reconciliation now complete upon admission Patient would like intubation but no CPR, DNR VTE prophylaxis: Lovenox Patient with sepsis secondary to bronchopneumonia requiring admission for at least 2 midnights stay for IV antibiotics. Quality Stroke Does the patient have a stroke diagnosis?: No VTE Prior VTE?: No VTE Risk Level:: Medical - moderate - high VTE Device Contraindication: Treatment Not Indicated VTE Drug Contraindication: N/A - Med Ordered
[2024-03-13] MEDS: Enoxaparin Sodium 40 MG/0.4 ML SYRINGE SUBCUT (22:51)
[2024-03-13] MEDS: Azithromycin 500 MG in 0.9 % Sodium Chloride 250 ML 125 MG IV (22:51)
[2024-03-13] MEDS: Lactated Ringers 1,000 ML 80 ML IVCONT (22:51)
[2024-03-14] VITALS (9 sets, daily range): BP systolic 87–119; BP diastolic 45–65; PULSE 83–100; RESP 14–21; TEMP 36.7–37.3; O2SAT 92–99; BMI 24.4; BMI 24.3
[2024-03-14] MEDS: SUMAtriptan succinate 50 MG TABLET PO (00:50)
[2024-03-14] MEDS: Melatonin 3 MG TABLET 6 MG PO (00:50)
[2024-03-14] MEDS: cefEPime HCl/D5W 2 GM/50 ML PIGGYBACK IV ×3 (02:52→20:33)
[2024-03-14 04:57] LABS: Hematocrit 36.1 % (37.0-47.0); Hemoglobin 11.9 g/dl (12.0-16.0); Mean Corpuscular Volume 90.9 fL (80.0-98.0); Mean Platelet Volume 10.3 fL (9.4-12.3); Platelet Count 140 X10*3/uL (160-400); Red Blood Count 3.97 X10*6/uL (4.20-5.50); Red Cell Distribution Width 14.6 % (11.0-16.0); WBC ABN SCTR FOR CBC 1
[2024-03-14 04:58] LABS: White Blood Count 6.1 X10*3/uL (4.8-10.8)
[2024-03-14 05:13] LABS: Anion Gap 10 (12-20); Blood Urea Nitrogen 11 mg/dL (9-16); Calcium 8.4 mg/dL (8.4-10.2); Carbon Dioxide 22 mmol/L (22-29); Chloride 112 mmol/L (96-108); Creatinine Clr Calc Pharmacy 68.5; Estimated Glomerular Filt Rate > 60; Glucose Random 109 mg/dL (60-115); Potassium 4.3 mmol/L (3.3-5.1); Sodium 140 mmol/L (135-145)
[2024-03-14 05:18] LABS: Band Neutrophils Percent 3 % (3-5); Lymphocytes Absolute Manual 0.7 X10*3/uL (1.2-4.9); Lymphocytes Percent Manual 12 % (20-40); Monocytes Absolute Manual 0.4 X10*3/uL (0.1-1.2); Monocytes Percent Manual 7 % (2-11); Neutrophils Absolute Manual 4.9 X10*3/uL (2.0-8.3); Neutrophils Percent Manual 78 % (45-73)
[2024-03-14 05:22] LABS: Dohle Bodies PRESENT; Platelet Estimate NORMAL (NORMAL); Platelet Morphology Comment NORMAL; RBC Morphology NORMAL; Toxic Granulation PRESENT
[2024-03-14] MEDS: Levothyroxine Sodium 112 MCG TABLET PO (06:52)
[2024-03-14] MEDS: ondansetron HCL 4 MG/2 ML VIAL IVPUSH (09:25)
[2024-03-14] MEDS: Cholecalciferol (Vitamin D3) 25 MCG TABLET 50 MCG PO (09:25)
[2024-03-14] MEDS: Famotidine 20 MG TABLET PO (09:26)
--- NOTE | 2024-03-14 09:50 | MHC.CM.PN ---
IMM 03/14/24, EMR REVIEWED, PT ADMTTED W/SEPSIS/PNA, CM MET W/PT VIA TRANSPORTATION PLANNER, PT REPORTS SHE LIVES W/S.O. DIANE WHO IS PT'S COLLEGE SPECIALIST AND PT'S GSON, PT HAS A CANE/WALKER/BEDSIDE COMMODE AND SHOWER CHAIR FOR DME, [facility] CM AND [employer] COLLEGE SPECIALIST 20HRS/WK, PT'S GOAL FOR DC IS HOME. PT VERIFIES PCP ON FILE, [facility] FOR ONCOLOGY FOR BREAST CA, PT WAS AT APPT AND SENT TO ED D/T CHEST PAIN. AND HAS BEEN EDUCATED ON AND COMPLETED A HCP NAMING HHER SISTER SHAHANA GUPTA [phone] HER [facility] AND HER SON NETO CHURCH [phone] HER ALTERNATE, COPY UPLOADED TO [facility] AND PLACED IN CHART.
[2024-03-14] MEDS: Erythromycin Base 0.5% Oph Oin 1 GM TUBE 1 CM EYE-BOTH ×2 (11:54→17:17)
[2024-03-14] MEDS: Lactated Ringers 1,000 ML 80 ML IVCONT (17:12)
--- NOTE | 2024-03-14 17:34 | HO.PM.IMPN ---
Subjective Subjective Date of Service: 03/14/24 Interval History: sepsis sec to pneumonia Review of Systems sob seems somewhat improving denies any chest pain or fevers Physical Exam Vital Signs: Vital Signs: Last Vital Signs Temp 98.0 F 03/14/24 15:15 Pulse 97 03/14/24 15:15 Resp 21 H 03/14/24 15:15 BP 100/60 03/14/24 17:10 Pulse Ox 99 03/14/24 15:15 O2 Del Method Room Air 03/14/24 15:15 BMI result Body Mass Index 24.3 General: AOx3, no acute distress Resp: diminished throughout, no wheezing or rhonchi CVS: S1, S2, normal rhythm GI: +BS, NT, no distention Skin: Warm, dry Neuro: Cranial nerves II-XII grossly intact bilaterally. Motor grossly intact bilaterally Extremities: No LE edema Psych: Appropriate affect Objective Data Active Medications Benzonatate (Benzonatate 100 Mg Capsule) 100 mg PO TID PRN PRN Reason: Cough Calcium Carbonate (Calcium Carbonate 750 Mg Tab.Chew) 750 mg PO Q4H PRN PRN Reason: Heartburn Docusate Sodium (Docusate Sodium 100 Mg Capsule) 100 mg PO DAILY PRN PRN Reason: Constipation Enoxaparin Sodium (Enoxaparin Sodium 40 Mg/0.4 Ml Syringe) 40 mg SUBCUT Q24H [facility] Last Admin: 03/13/24 22:51 Dose: 40 mg Documented By: DIMITRY Erythromycin (Erythromycin Base 0.5% Oph Oin 1 Gm Tube) 1 cm EYE-BOTH TID [facility] Last Admin: 03/14/24 17:17 Dose: 1 cm Documented By: LELAND Famotidine (Famotidine 20 Mg Tablet) 20 mg PO DAILY [facility] Last Admin: 03/14/24 09:26 Dose: 20 mg Documented By: LELAND Cefepime HCl (Maxipime) 2 gm in 50 mls @ 100 mls/hr IV Q8H [facility] Last Infusion: 03/14/24 12:20 Dose: Infused Documented By: LELAND Azithromycin 500 mg/ Sodium (Chloride) 250 mls @ 125 mls/hr IV Q24H [facility] Last Infusion: 03/14/24 01:53 Dose: Infused Documented By: VIKTORIYA Lactated Ringer's (Lr) 1,000 mls @ 80 mls/hr IVCONT .[id number] [facility] Last Admin: 03/14/24 17:12 Dose: 80 mls/hr Documented By: LELAND Levothyroxine Sodium (Levothyroxine Sodium 112 Mcg Tablet) 112 mcg PO DAILY@0600 [facility] Last Admin: 03/14/24 06:52 Dose: 112 mcg Documented By: VIKTORIYA Lidocaine/Diphenhydr/Alum/Mg/Simeth (Mag&Al/Sim/Diphenhyd/Lidocaine 10 Ml Oral.Susp) 10 ml PO BID PRN PRN Reason: Mouth Pain Magnesium Hydroxide (Milk Of Magnesia 30 Ml Oral.Susp) 30 ml PO DAILY PRN PRN Reason: Constipation Melatonin (Melatonin 3 Mg Tablet) 6 mg PO BEDTIME PRN PRN Reason: Insomnia Last Admin: 03/14/24 00:50 Dose: 6 mg Documented By: GOPI Nortriptyline HCl (Nortriptyline Hcl 25 Mg Capsule) 100 mg PO BEDTIME [facility] Nystatin/Triamcinolone Acetonide (Nystatin/Triamcinolone Cream 15 Gm Tube) 1 appl TOPICAL DAILY [facility]; Protocol Last Admin: 03/14/24 10:08 Dose: Not Given Documented By: LELAND Non-Admin Reason: Medication Discontinued Omeprazole (Omeprazole 20 Mg Capsule.Dr) 20 mg PO DAILY PRN PRN Reason: for heartburn Ondansetron HCl (Ondansetron Hcl 4 Mg/2 Ml Vial) 4 mg IVPUSH Q8H PRN PRN Reason: Nausea and Vomiting Last Admin: 03/14/24 09:25 Dose: 4 mg Documented By: LELAND Polyethylene Glycol (Polyethylene Glycol 3350 17 Gm Powd.Pack) 17 gm PO DAILY PRN PRN Reason: Constipation Quetiapine Fumarate (Quetiapine Fumarate 100 Mg Tablet) 100 mg PO BEDTIME PRN PRN Reason: Sleep Sodium Chloride (0.9 % Sodium Chloride Flush 3 Ml Syringe) 3 ml IVFLUSH QSHIFT [facility] Last Admin: 03/14/24 17:05 Dose: Not Given Documented By: LELAND Non-Admin Reason: IV Running Sumatriptan Succinate (Sumatriptan Succinate 50 Mg Tablet) 50 mg PO DAILY PRN PRN Reason: Headache Last Admin: 03/14/24 00:50 Dose: 50 mg Documented By: GOPI Vitamin D (Cholecalciferol (Vitamin D3) 25 Mcg Tablet) 50 mcg PO DAILY [facility] Last Admin: 03/14/24 09:25 Dose: 50 mcg Documented By: LELAND Labs 03/14/24 04:19 03/14/24 04:19 Labs: Laboratory Results - last 24 hr 03/13/24 03/14/24 18:39 04:19 MCV 90.9 MCH 30.0 MCHC 33.0 RDW 14.6 Plt Count 140 L MPV 10.3 Immature Gran % (Auto) Cancelled Neut % (Auto) Cancelled Lymph % (Auto) Cancelled Holmes % (Auto) Cancelled Eos % (Auto) Cancelled Baso % (Auto) Cancelled Lymph # (Auto) Cancelled Holmes # (Auto) Cancelled Eos # (Auto) Cancelled Baso # (Auto) Cancelled Abs Immat Gran (auto) Cancelled Absolute Neuts (auto) Cancelled Absolute Nucleated RBC 0.000 Nucleated RBC % (auto) 0.0 Neutrophils % (Manual) 78 H Band Neutrophils % 3 Lymphocytes % (Manual) 12 L Monocytes % (Manual) 7 Abs Neuts (Manual) 4.9 Lymphocytes # (Manual) 0.7 L Monocytes # (Manual) 0.4 Toxic Granulation PRESENT Dohle Bodies PRESENT Platelet Estimate NORMAL Plt Morphology Comment NORMAL RBC Morphology NORMAL Anion Gap 10 L Estim Creat Clear Calc 68.5 Estimated GFR > 60 Random Glucose 109 Lactic Acid 1.0 Calcium 8.4 D Assessment and Plan (1) Bronchopneumonia: Status: Acute (2) Sepsis: Status: Acute Assessment and Plan: 58-year-old female with a past medical invasive ductal right breast cancer currently undergoing chemotherapy with Dr. Badillo, last chemotherapy session was 4 days ago, anemia, GERD, hypothyroid, who presented to the ED today after rapid response was called during her oncology appointment due to chest pain, shortness of breath and fatigue. Sepsis secondary to bronchopneumonia WBC 7.5, tachycardic improving , tachypneic, lactic acid normal, blood cultures x2 pending, not severe sepsis bp reading x1 low (mechine reading) when checked mannually bp seems fine 100/60 and also patient says she run bp lower side at baseline (so low bp reading was erronous) chest x-ray normal, CTA with bronchopneumonia, no pulmonary embolus COVID/flu/RSV negative plan: continue cefepime and add azithromycin follow CBC and BMP Breast cancer - followed by Dr. Badillo Anemia - H&H normal GERD - continue home meds Hypothyroid - continue home meds Med reconciliation now complete upon admission Patient would like intubation but no CPR, DNR VTE prophylaxis: Lovenox Patient with sepsis secondary to bronchopneumonia stay for IV antibiotics. Quality Stroke Does the patient have a stroke diagnosis?: No VTE Prior VTE?: No VTE Risk Level:: Medical - moderate - high VTE Device Contraindication: Treatment Not Indicated VTE Drug Contraindication: N/A - Med Ordered
[2024-03-14] MEDS: Azithromycin 500 MG in 0.9 % Sodium Chloride 250 ML 125 MG IV (20:32)
[2024-03-14] MEDS: Benzonatate 100 MG CAPSULE PO (20:35)
[2024-03-14] MEDS: Enoxaparin Sodium 40 MG/0.4 ML SYRINGE SUBCUT (20:36)
[2024-03-14] MEDS: Nortriptyline HCl 25 MG CAPSULE 100 MG PO (20:37)
[2024-03-14] MEDS: 0.9 % Sodium Chloride Flush 3 ML SYRINGE IVFLUSH (20:38)
[2024-03-15 04:00] VITALS: BP 97/51; PULSE 98; RESP 16; TEMP 37.1; O2SAT 98
[2024-03-15] MEDS: Levothyroxine Sodium 112 MCG TABLET PO (05:40)
[2024-03-15 07:06] VITALS: BP 100/55; PULSE 100; RESP 18; TEMP 36.9; O2SAT 94
[2024-03-15 07:32] LABS: Anion Gap 7 (12-20); Blood Urea Nitrogen 8 mg/dL (9-16); Calcium 8.8 mg/dL (8.4-10.2); Carbon Dioxide 24 mmol/L (22-29); Chloride 109 mmol/L (96-108); Creatinine Clr Calc Pharmacy 69.4; Estimated Glomerular Filt Rate > 60; Glucose Random 119 mg/dL (60-115); Sodium 136 mmol/L (135-145)
[2024-03-15] MEDS: Lactated Ringers 1,000 ML 80 ML IVCONT (09:01)
[2024-03-15] MEDS: Cholecalciferol (Vitamin D3) 25 MCG TABLET 50 MCG PO (09:02)
[2024-03-15] MEDS: Nystatin/Triamcinolone Cream 15 GM TUBE 1 APPL TOPICAL (09:02)
[2024-03-15] MEDS: Famotidine 20 MG TABLET PO (09:02)
[2024-03-15] MEDS: Erythromycin Base 0.5% Oph Oin 1 GM TUBE 1 CM EYE-BOTH ×3 (09:03→21:51)
[2024-03-15] MEDS: 0.9 % Sodium Chloride Flush 3 ML SYRINGE IVFLUSH ×2 (09:03→16:21)
[2024-03-15] MEDS: cefEPime HCl/D5W 2 GM/50 ML PIGGYBACK IV ×2 (11:31→18:27)
[2024-03-15 15:30] VITALS: BP 104/59; PULSE 102; RESP 18; TEMP 36.7; O2SAT 94
--- NOTE | 2024-03-15 18:12 | HO.PM.IMPN ---
Subjective Subjective Date of Service: 03/15/24 Interval History: pneumonia Review of Systems sob seems improving has cough Physical Exam Vital Signs: Vital Signs: Last Vital Signs Temp 98.0 F 03/15/24 15:30 Pulse 102 H 03/15/24 15:30 Resp 18 03/15/24 15:30 BP 104/59 L 03/15/24 15:30 Pulse Ox 94 03/15/24 15:30 O2 Del Method Room Air 03/15/24 15:30 BMI result Body Mass Index 24.3 General: AOx3, no acute distress Resp: diminished , no wheezing or rhonchi CVS: S1, S2, normal rhythm GI: +BS, NT, no distention Skin: Warm, dry Neuro: Cranial nerves II-XII grossly intact bilaterally. Motor grossly intact bilaterally Extremities: No LE edema Objective Data Active Medications Benzonatate (Benzonatate 100 Mg Capsule) 100 mg PO TID PRN PRN Reason: Cough Last Admin: 03/14/24 20:35 Dose: 100 mg Documented By: GONZALEZ Calcium Carbonate (Calcium Carbonate 750 Mg Tab.Chew) 750 mg PO Q4H PRN PRN Reason: Heartburn Docusate Sodium (Docusate Sodium 100 Mg Capsule) 100 mg PO DAILY PRN PRN Reason: Constipation Enoxaparin Sodium (Enoxaparin Sodium 40 Mg/0.4 Ml Syringe) 40 mg SUBCUT Q24H [facility] Last Admin: 03/14/24 20:36 Dose: 40 mg Documented By: GONZALEZ Erythromycin (Erythromycin Base 0.5% Oph Oin 1 Gm Tube) 1 cm EYE-BOTH TID [facility] Last Admin: 03/15/24 16:21 Dose: 1 cm Documented By: AZRA Famotidine (Famotidine 20 Mg Tablet) 20 mg PO DAILY [facility] Last Admin: 03/15/24 09:02 Dose: 20 mg Documented By: AZRA Cefepime HCl (Maxipime) 2 gm in 50 mls @ 100 mls/hr IV Q8H [facility] Last Infusion: 03/15/24 12:38 Dose: Infused Documented By: AZRA Azithromycin 500 mg/ Sodium (Chloride) 250 mls @ 125 mls/hr IV Q24H [facility] Last Infusion: 03/14/24 22:32 Dose: Infused Documented By: GONZALEZ Levothyroxine Sodium (Levothyroxine Sodium 112 Mcg Tablet) 112 mcg PO DAILY@0600 [facility] Last Admin: 03/15/24 05:40 Dose: 112 mcg Documented By: GONZALEZ Lidocaine/Diphenhydr/Alum/Mg/Simeth (Mag&Al/Sim/Diphenhyd/Lidocaine 10 Ml Oral.Susp) 10 ml PO BID PRN PRN Reason: Mouth Pain Magnesium Hydroxide (Milk Of Magnesia 30 Ml Oral.Susp) 30 ml PO DAILY PRN PRN Reason: Constipation Melatonin (Melatonin 3 Mg Tablet) 6 mg PO BEDTIME PRN PRN Reason: Insomnia Last Admin: 03/14/24 00:50 Dose: 6 mg Documented By: GOPI Nortriptyline HCl (Nortriptyline Hcl 25 Mg Capsule) 100 mg PO BEDTIME [facility] Last Admin: 03/14/24 20:37 Dose: 100 mg Documented By: GONZALEZ Nystatin/Triamcinolone Acetonide (Nystatin/Triamcinolone Cream 15 Gm Tube) 1 appl TOPICAL DAILY [facility]; Protocol Last Admin: 03/15/24 09:02 Dose: 1 appl Documented By: AZRA Omeprazole (Omeprazole 20 Mg Capsule.Dr) 20 mg PO DAILY PRN PRN Reason: for heartburn Ondansetron HCl (Ondansetron Hcl 4 Mg/2 Ml Vial) 4 mg IVPUSH Q8H PRN PRN Reason: Nausea and Vomiting Last Admin: 03/14/24 09:25 Dose: 4 mg Documented By: LELAND Polyethylene Glycol (Polyethylene Glycol 3350 17 Gm Powd.Pack) 17 gm PO DAILY PRN PRN Reason: Constipation Quetiapine Fumarate (Quetiapine Fumarate 100 Mg Tablet) 100 mg PO BEDTIME PRN PRN Reason: Sleep Sodium Chloride (0.9 % Sodium Chloride Flush 3 Ml Syringe) 3 ml IVFLUSH QSHIFT [facility] Last Admin: 03/15/24 16:21 Dose: 3 ml Documented By: AZRA Sumatriptan Succinate (Sumatriptan Succinate 50 Mg Tablet) 50 mg PO DAILY PRN PRN Reason: Headache Last Admin: 03/14/24 00:50 Dose: 50 mg Documented By: GOPI Vitamin D (Cholecalciferol (Vitamin D3) 25 Mcg Tablet) 50 mcg PO DAILY [facility] Last Admin: 03/15/24 09:02 Dose: 50 mcg Documented By: AZRA Labs 03/14/24 04:19 03/15/24 06:47 Labs: Laboratory Results - last 24 hr 03/14/24 03/15/24 04:19 06:47 Smear Path Review Anion Gap 7 L Estim Creat Clear Calc 69.4 Estimated GFR > 60 Random Glucose 119 H Calcium 8.8 Microbiology Microbiology Results: Microbiology 03/13/24 16:00 Blood Culture - Preliminary Blood - Subclavian No growth after 48 hours. 03/13/24 16:05 Blood Culture - Preliminary Blood - Subclavian No growth after 48 hours. Assessment and Plan (1) Bronchopneumonia: Status: Acute (2) Sepsis: Status: Acute Assessment and Plan: 58-year-old female with a past medical invasive ductal right breast cancer currently undergoing chemotherapy with Dr. Badillo, last chemotherapy session was 4 days ago, anemia, GERD, hypothyroid, who presented to the ED today after rapid response was called during her oncology appointment due to chest pain, shortness of breath and fatigue. Sepsis secondary to bronchopneumonia WBC 7.5, tachycardic improving , tachypneic, lactic acid normal, blood cultures x2 pending, not severe sepsis bp reading x1 low (mechine reading) when checked mannually bp seems fine 100/60 and also patient says she run bp lower side at baseline (so low bp reading was erronous) chest x-ray normal, CTA with bronchopneumonia, no pulmonary embolus COVID/flu/RSV negative plan: continue cefepime and add azithromycin follow CBC and BMP Breast cancer - followed by Dr. Badillo Anemia - H&H normal GERD - continue home meds Hypothyroid - continue home meds Med reconciliation now complete upon admission Patient would like intubation but no CPR, DNR VTE prophylaxis: Lovenox Patient with sepsis secondary to bronchopneumonia stay for IV antibiotics. Quality Stroke Does the patient have a stroke diagnosis?: No VTE Prior VTE?: No VTE Risk Level:: Medical - moderate - high VTE Device Contraindication: Treatment Not Indicated VTE Drug Contraindication: N/A - Med Ordered
[2024-03-15 20:00] VITALS: BP 101/57; PULSE 109; RESP 18; TEMP 37.3; O2SAT 96
[2024-03-15] MEDS: Azithromycin 500 MG in 0.9 % Sodium Chloride 250 ML 125 MG IV (21:51)
[2024-03-15] MEDS: Enoxaparin Sodium 40 MG/0.4 ML SYRINGE SUBCUT (21:51)
[2024-03-15] MEDS: Nortriptyline HCl 25 MG CAPSULE 100 MG PO (21:51)
[2024-03-15] MEDS: Melatonin 3 MG TABLET 6 MG PO (22:53)
[2024-03-15] MEDS: Mag&Al/Sim/Diphenhyd/Lidocaine 10 ML ORAL.SUSP PO (22:53)
[2024-03-15 23:19] VITALS: BP 101/57; PULSE 114; RESP 20; TEMP 37.4; O2SAT 97
[2024-03-16] VITALS (7 sets, daily range): BP systolic 85–100; BP diastolic 48–57; PULSE 96–113; RESP 18–20; TEMP 36.8–37.7; O2SAT 93–95
[2024-03-16] MEDS: 0.9 % Sodium Chloride Flush 3 ML SYRINGE IVFLUSH ×2 (04:08→09:35)
[2024-03-16] MEDS: cefEPime HCl/D5W 2 GM/50 ML PIGGYBACK IV ×2 (04:08→12:25)
[2024-03-16] MEDS: 0.9 % Sodium Chloride 1,000 ML 999 ML IV (04:44)
[2024-03-16] MEDS: Levothyroxine Sodium 112 MCG TABLET PO (06:19)
[2024-03-16 07:44] LABS: Anion Gap 9 (12-20); Blood Urea Nitrogen 6 mg/dL (9-16); Calcium 8.2 mg/dL (8.4-10.2); Carbon Dioxide 21 mmol/L (22-29); Chloride 110 mmol/L (96-108); Creatinine Clr Calc Pharmacy 65.9; Estimated Glomerular Filt Rate > 60; Glucose Random 117 mg/dL (60-115); Potassium 3.9 mmol/L (3.3-5.1); Sodium 136 mmol/L (135-145)
[2024-03-16] MEDS: Cholecalciferol (Vitamin D3) 25 MCG TABLET 50 MCG PO (09:35)
[2024-03-16] MEDS: Erythromycin Base 0.5% Oph Oin 1 GM TUBE 1 CM EYE-BOTH (09:35)
[2024-03-16] MEDS: Famotidine 20 MG TABLET PO (09:35)
[2024-03-16 11:24] LABS: Thyroid Stimulating Hormone 17.14 uIU/mL (0.32-4.0)
[2024-03-16] MEDS: Mag&Al/Sim/Diphenhyd/Lidocaine 10 ML ORAL.SUSP PO (12:25)
[2024-03-16 13:22] LABS: Free T4 (Free Thyroxine) 0.88 ng/dL (0.71-1.85)
--- NOTE | 2024-03-16 13:27 | P.DS_ITS ---
DS: Providers Provider Date of Service: 03/16/24 Date of admission: 03/13/24 22:14 Date of discharge: 03/16/24 Primary care physician: Giana Isbell MD Attending physician on discharge: Juni Parker Discharging clinician: Juni Parker DS: Diagnosis Discharge Diagnosis (1) Bronchopneumonia: Status: Acute (2) Sepsis: Status: Acute DS: Summary Hospital Course Hospital Course: HPI: 58-year-old female with a past medical invasive ductal right breast cancer current P undergoing chemotherapy with Dr. Badillo, last chemotherapy session was 4 days ago, anemia, GERD, hypothyroid, who presented to the ED today after rapid response was called during her oncology appointment due to chest pain, shortness of breath and fatigue. She reports a dry cough for few days as well as chronic nausea and diarrhea. No fever, chills, vomiting. She denies a headache, runny nose or congestion. Also denies any lower extremity edema. Chest pain has resolved. Hospital course: 58-year-old female with a past medical invasive ductal right breast cancer currently undergoing chemotherapy with Dr. Badillo, last chemotherapy session was 4 days ago, anemia, GERD, hypothyroid, who presented to the ED today after rapid response was called during her oncology appointment due to chest pain, shortness of breath and fatigue: Workup with CTA negative for pulmonary embolism, showed possible pneumonia: Patient was admitted Sepsis secondary to bronchopneumonia: Started on IV antibiotics, blood cultures sent, patient also had borderline blood pressure for which she received fluids. With above management patient seems to be improved significantly-denies any respiratory symptoms, blood culture negative, no fever,sepsis resolved: Patient is switched to p.o. antibiotics upon discharge. Patient with history of hypothyroidism: On thyroid replacement, her TSH is in the 17 range,but free t4 normal, likely not taking her medication. Advised to be compliant with her Synthroid. Check TSH and free T4 out patiently with PCP. In addition patient says she runs borderline blood pressure softer side at baseline. Seems asymptomatic. Her CTA negative, echo ef:61%. Asymptomatic. plan: Complete Ceftin 500 mg p.o. b.i.dx7 days .azithromycin 500 mg qd x3 daily. Please repeat chest imaging in 3-4 weeks to see resolution pneumonia, follow-up outpatient with PCP and Oncology Dr. Badillo's office. Check TSH and free T4 out patiently with PCP. Assessment plan coordination time spent 40 minute. Above management discussed with the patient and her family at bedside with the help of beauty operator apprentice, they understand and agree with above management. Time Attestation Total time managing care of this patient today: 40 mintues. Discharge Coordination Time (in mins): 40 min Quality: Safe Use of Opioids Does Pt have an Active Cancer Diagnosis on the Problem List?: No Quality: Stroke Does the patient have a stroke diagnosis?: No Physical Exam Vital Signs: Vital Signs: Last Vital Signs Temp 98.2 F 03/16/24 07:55 Pulse 113 H 03/16/24 10:15 Resp 20 03/16/24 07:55 BP 99/57 L 03/16/24 10:15 Pulse Ox 95 03/16/24 07:55 O2 Del Method Room Air 03/16/24 07:55 BMI result Body Mass Index 24.3 General: AOx3, no acute distress Resp: air entry improved/fair , no rales or wheezing CVS: S1, S2, normal rhythm GI: +BS, NT, no distention Skin: Warm, dry Neuro: Cranial nerves II-XII grossly intact bilaterally. Motor grossly intact bilaterally Extremities: No LE edema Psych: Appropriate affect DS: Data Data Completed and Pending Completed studies during hospitalization [Text1]: Procedures Dilation of Common Bile Duct, Via Natural or Artificial Opening Endoscopic (01/13/23) Labs on day of discharge: Laboratory Results - last 24 hr 03/16/24 07:00 Sodium 136 Potassium 3.9 Chloride 110 H Carbon Dioxide 21 L Anion Gap 9 L BUN 6 L Creatinine 0.77 Estim Creat Clear Calc 65.9 Estimated GFR > 60 Random Glucose 117 H Calcium 8.2 L D TSH 17.14 H Free T4 0.88 Preliminary micro results at discharge 03/13/24 16:00 Blood Culture - Preliminary Blood - Subclavian No growth after 48 hours. 03/13/24 16:05 Blood Culture - Preliminary Blood - Subclavian No growth after 48 hours. Imaging Chest x-ray: Radiologist's impression: ITS Impressions Chest X-Ray 03/13/24 14:39 IMPRESSION: No acute cardiopulmonary abnormality. Electronically signed by: Leonardo Larose MD 03/13/2024 03:49 PM [facility] [place], [place] Chest CTA 03/13/24 16:24 IMPRESSION: 1. No evidence of pulmonary embolus. Normal caliber pulmonary arteries. 2. No evidence of acute aortic syndrome. 3. Small airway thickening, endobronchial mucous plugging, and subtle groundglass changes left lower lobe suspicious for a subtle bronchopneumonia. Associated mild air trapping. Lungs otherwise clear. 4. No lymphadenopathy. 5. Small type I hiatus hernia. 6. Left chest port in good position. Electronically signed by: Ant Cole MD 03/13/2024 05:00 PM [facility] [place] [place] Discharge Plan Discharge Anticipated Discharge Date/Time: 03/16/24 13:00 Patient Disposition: Home, Self-Care Discharge Diagnosis: pneumonia Referrals: Giana Isbell MD [Primary Care Provider] - 1 Week Discharge Medications: New cefuroxime axetil 500 mg Tablet 500 mg PO Q12H Qty: 14 0RF azithromycin 500 mg Tablet 500 mg PO Q24H Qty: 3 0RF Continued pantoprazole 20 mg tablet,delayed release (DR/EC) 20 mg PO QAM PRN (Reason: for heartburn) Qty: 30 6RF levothyroxine [Synthroid] 112 mcg tablet 112 mcg PO DAILY Qty: 30 5RF Rx Instructions: PATIENT SAID SHE IS OK WITH TAKING GENERIC docusate sodium 100 mg Capsule 100 mg PO DAILY PRN (Reason: Constipation) ondansetron 8 mg Tablet,Disintegrating 8 mg PO Q8H PRN (Reason: Nausea And Vomiting) Qty: 30 3RF dexamethasone 2 mg Tablet 2 mg PO BID Qty: 30 2RF Rx Instructions: Start night before chemotherapy and take for 2 days after chemotherapy, last chemotherapy ([id number]) was on 03/08/24 erythromycin 5 mg/gram (0.5 %) Ointment 0.5 inch OPHTHALMIC (EYE) TID Qty: 60 0RF ondansetron 4 mg tablet,disintegrating 4 mg PO Q8H PRN (Reason: nausea and vomiting) Qty: 14 0RF nystatin-triamcinolone 100,000-0.1 unit/g-% cream 1 appl TOPICAL DAILY diclofenac sodium 1 % gel 4 g topical DAILY PRN (Reason: Pain) Rx Instructions: apply to left hip area, up to 4 times a day as needed Magic Mouthwash Diphen/Nystat/Antacid 1:1:1 240 mL suspension 10 ml PO BID PRN (Reason: Mouth Pain) Rx Instructions: nystatin 100,000 unit/mL oral suspension 80 mL; diphenhydramine 12.5 mg/5 mL oral liquid 80 mL; aluminum-mag hydroxide-simethicone 400 mg-400 mg-40 mg/5 mL oral susp 80 mL; Per 240 mL quetiapine 100 mg tablet 100 mg PO BEDTIME PRN (Reason: Sleep) sumatriptan succinate 100 mg tablet 50 mg PO DAILY PRN (Reason: Headache) Rx Instructions: do not exceed 2 doses per 24 hrs nortriptyline 50 mg capsule 100 mg PO BEDTIME famotidine 20 mg tablet 20 mg PO DAILY Qty: 30 3RF cholecalciferol (vitamin D3) [Vitamin D3] 50 mcg (2,000 unit) capsule 50 mcg PO DAILY capsaicin 0.025 % cream 1 appl topical BEDTIME Discharge Orders: Discharge Order (Routine); Ordered 03/16/24 Ordered By: Juni Parker Diet: Advance to usual diet Activity on Discharge: As tolerated Stand Alone Forms: Patient Portal Discharge page Print Language: Kyrgyz Other Ambulatory Orders: TSH reflex Free T4 (Routine) Timeframe: 1 Week Facility: [facility] - Location: Laboratory Ordered By: Juni Parker Care Plan Goals: 58-year-old female with a past medical invasive ductal right breast cancer currently undergoing chemotherapy with Dr. Badillo, last chemotherapy session was 4 days ago, anemia, GERD, hypothyroid, who presented to the ED today after rapid response was called during her oncology appointment due to chest pain, shortness of breath and fatigue: Workup with CTA negative for pulmonary embolism, showed possible pneumonia: Patient was admitted Sepsis secondary to bronchopneumonia: Started on IV antibiotics, blood cultures sent, patient also had borderline blood pressure for which she received fluids. With above management patient seems to be improved significantly-denies any respiratory symptoms, blood culture negative, no fever,sepsis resolved: Patient is switched to p.o. antibiotics upon discharge. Patient with history of hypothyroidism: On thyroid replacement, her TSH is in the 17 range,but free t4 normal, likely not taking her medication. Advised to be compliant with her Synthroid. Check TSH and free T4 out patiently with PCP. In addition patient says she runs borderline blood pressure softer side at baseline. Seems asymptomatic. Her CTA negative, echo ef:61%. Asymptomatic. plan: Complete Ceftin 500 mg p.o. b.i.dx7 days .azithromycin 500 mg qd x3 daily. Please repeat chest imaging in 3-4 weeks to see resolution pneumonia, follow-up outpatient with PCP and Oncology Dr. Badillo's office. Check TSH and free T4 out patiently with PCP. Health Concerns: As above. Plan of Treatment: Complete Ceftin 500 mg p.o. b.i.dx7 days .azithromycin 500 mg qd x3 daily. Please repeat chest imaging in 3-4 weeks to see resolution pneumonia, follow-up outpatient with PCP and Oncology Dr. Badillo's office. Check TSH and free T4 out patiently with PCP. Assessment: As above. Patient Instructions: Pneumonia (DC)
--- NOTE | 2024-03-16 14:08 | MHC.CM.PN ---
Pt is medically cleared for discharge home self-care, pts family to transport her home.
[2024-03-16] MEDS: cefuroxime axetiL 500 MG TABLET PO (14:26)
[2024-03-16] MEDS: Azithromycin 500 MG TABLET PO (14:26)
== END 2024-03-16 16:00 | disposition home or self-care (01) | DRG 871 ==
LOC: HO.ED 18:36 → HO.EDOVER 22:23 → HO.IMC 03-14 07:20
PROVIDERS: Physician Assistant; Admitting Provider Physician Assistant; Emergency Provider Emergency Medicine; PCP Internal Medicine; Visit Provider Internal Medicine
DX: A41.9 Sepsis, unspecified organism (principal); J18.0 Bronchopneumonia, unspecified organism; C50.911 Malignant neoplasm of unspecified site of right female breast; E89.0 Postprocedural hypothyroidism; D63.0 Anemia in neoplastic disease; K21.9 Gastro-esophageal reflux disease without esophagitis; Z20.822 Contact with and (suspected) exposure to COVID-19; Z91.148 Patient's other noncompliance with medication regimen for other reason; Z79.890 Hormone replacement therapy; Z79.899 Other long term (current) drug therapy
CPT/HCPCS: 0241U; 36415; 71045; 71275; 80048; 80076; 83605; 83735; 83880; 84439; 84443; 84484; 85007; 85027; 85379; 85610; 87040; 93005; 99285; J0456; J0692; J1650; J2405; J7120; Q9967

== ENCOUNTER → 2024-03-13 14:39 | Outpatient (BNV) | payer OTHER, SELFPAY | PROVIDERS: Emergency Provider Emergency Medicine; PCP Internal Medicine; Visit Provider Radiology Diagnostic Radiology | DX: R07.9 Chest pain, unspecified (principal); R06.02 Shortness of breath; J18.0 Bronchopneumonia, unspecified organism | CPT/HCPCS: 71045; 71275 ==

== ENCOUNTER → 2024-03-13 22:14 | Outpatient (BNV) | payer OTHER, SELFPAY | PROVIDERS: Admitting Provider Physician Assistant; Emergency Provider Emergency Medicine; PCP Internal Medicine; Visit Provider Physician Assistant | DX: A41.9 Sepsis, unspecified organism (principal); J18.0 Bronchopneumonia, unspecified organism | CPT/HCPCS: 99223; 99231; 99232; 99239 ==

== ENCOUNTER 2024-03-27 14:56 | Outpatient (AMB) | payer OTHER, SELFPAY ==
--- NOTE | 2024-03-27 14:59 | A.OFFVIS_ITS ---
Vital Signs 03/27/24 15:08 Height 5 ft Weight 130 lb BMI 25.4 Intake Visit Reasons: genetic testing results *Here* Intake Note: Patient is seen in office for genetic testing results. Pt c/o: here for results Data Processing Supervisor Required: Yes Data Processing Supervisor Language: Hand Cigar Making Supervisor Services: Data Processing Supervisor Present Data Processing Supervisor Name: Dee PERRY Information Interpreted: non-clinical & clinical Accompanied by: Family/Other Allergies acetaminophen [Vicodin] Allergy (Unknown, Verified 03/27/24 15:01) unk Penicillins Adverse Reaction (Mild, Verified 03/27/24 15:01) HYPERTENSION hydrocodone [From VICODIN] Adverse Reaction (Unknown, Verified 03/27/24 15:01) HIGH BP HPI Comments Details: 58-year-old female patient presenting with a palpable breast mass in the right breast in the 9 o'clock position noted on self examination 2 months ago. Since this time the lump has increased in size but is not associated with any skin change or pain. She denies a previous history of breast problems or breast surgery. She has a strong family history of breast cancer including her mother who developed breast cancer at the age of 52. She subsequently succumbed to the disease of the age of 57. She also has a sister with ovarian cancer. Neither she nor her family have undergone genetic testing. She is 3 para 2 and breastfed both her children. Workup with mammogram and ultrasound revealed a suspicious density measuring 16 x 20 by 11 mm with calcifications felt to be suspicious for malignancy. She underwent an ultrasound-guided core biopsy on at the [facility]. Subsequent pathology revealed invasive ductal carcinoma, MS CT grade 3, estrogen receptor positive, progesterone receptor positive, HER2 Janki receptor positive, proliferation index Ki-67 30% (high). She was seen by Dr. Badillo and has started neoadjuvant chemotherapy. She will be receiving her 3rd cycle later this week. After the 3rd cycles she will be restaged to determine if she needs 6 more cycles. She returns today to review genetic testing performed on 01/10/2024. The testing revealed no clinically significant mutations. A variant of uncertain significance was identified in the MSH2 gene. A copy of the report was provided to the patient. [facility] Medical History Anemia GERD (gastroesophageal reflux disease) Fatty liver Invasive ductal carcinoma of right breast Type 2 diabetes mellitus Vitamin D deficiency Multinodular thyroid Hypothyroidism Surgical History History of lobectomy of thyroid Hx of colonoscopy History of esophagogastroduodenoscopy (EGD) History of carpal tunnel surgery of left wrist Tubal ligation status Hx of foot surgery Hx of epicondylectomy Hx of cholecystectomy Hx of thyroidectomy Hx of appendectomy Family History Father No problems noted. 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 Pathology revealed invasive ductal carcinoma, grade 3, positive for estrogen/progesterone and HER2 Janki and with a high Ki-67 proliferation index. Patient is currently undergoing neoadjuvant chemotherapy and will be restaged soon. She will follow-up after completion of the neoadjuvant treatment to discuss surgical options. She is welcome to return sooner for any new concerns. Coding Level of Care Code Est Pt Level 3 (64421) Diagnoses Invasive ductal carcinoma of right breast C50.911
[2024-03-27 15:08] VITALS: BMI 25.4
--- OUTSIDE RECORDS SUMMARY | 2024-03-27 15:55 | XMS_ITS | Encounter Summary ---
Author Organization [employer] Address [address] [facility] 7t [place] [address] Care Team Providers Care Operational Risk Consultant Name Role Phone Giana Isbell MD Primary Care Provider [phone] Reason for Visit * Reason Onset Date Comments Hospital Follow-up 07/20/2022 Encounter Details Date Type Department Care Team ([facility] Contact Info) Description 07/20/2022 Telephone [facility] CHC MED & PEDS [address] [place] [address] Giana Isbell MD [address] [place] [address] Hospital Follow-up Social History Tobacco Use Types [...] a HDF appt. Pt was admitted at [facility] on 07/17/22 and discharged on 07/20/22 due to abdominal pain. documented in this encounter Plan of Treatment Upcoming Encounters Date Type Department Care Team ([facility] Contact Info) Description 03/28/2024 9:15 AM EST Office Visit [facility] CHC MED & PEDS [address] [place] [address] Giana Isbell MD 505 [place] [address] 06/11/2024 9:00 AM EDT Office Visit [facility] OPTOMETRY [address] [place] [address] Dawna Pro, OD [address] [place] [address] documented as of this encounter Visit Diagnoses Not on filedocumented in this encounter Care Teams Operational Risk Consultant Relationship Specialty Start Date End Date Giana Isbell MD [address] [place] [address] PCP - General Internal Medicine 09/07/18 documented as of this encounter
--- OUTSIDE RECORDS SUMMARY | 2024-03-27 15:55 | XMS_ITS | Encounter Summary ---
Author Organization [employer] Address [address] [facility] 7t [place] [address] Care Team Providers Care Orthotic/Prosthetic Clinician Name Role Phone Giana Isbell MD Primary Care Provider [phone] Encounter Details Date Type Department Care Team (Latest Contact Info) Description 12/04/2021 [address] [facility] CONVERSIONS Dental, Provider, DDS Social [...] Care Team (Late st Contact Info) Description 03/28/2024 9:15 AM EST Office Visit [facility] CHC MED & PEDS [address] [place] [address] Giana Isbell MD 505 [place] [address] 06/11/2024 9:00 AM EDT Office Visit [facility] OPTOMETRY [address] [place] [address] Dawna Pro, OD [address] [place] [address] documented as of this encounter Visit Diagnoses Not on filedocumented in this encounter Care Teams Orthotic/Prosthetic Clinician Relationship Specialty Start Date End Date Giana Isbell MD [address] [place] [address] PCP - General Internal Medicine 09/07/18 documented as of this encounter
--- OUTSIDE RECORDS SUMMARY | 2024-03-27 15:55 | XMS_ITS | Encounter Summary ---
Author Organization [employer] Address [address] [facility] 7t [place] [address] Care Team Providers Care Safety Engineer Pressure Vessels Name Role Phone Giana Isbell MD Primary Care Provider [phone] Reason for Visit * Reason Onset Date Comments Nurse Triage 08/02/2023 Encounter Details Date Type Department Care Team ([facility] Contact Info) Description 08/02/2023 Telephone [facility] CHC MED & PEDS [address] [place] [address] Giana Isbell MD [address] [place] [address] Nurse Triage Social History Tobacco Use Types [...] 08/02/2023 10:38 AM EDT Triage call with [employer] [place] [id number] Pt reports a small lump in the corner of lower left eye lid. Pt reports it is red, itchy, painful. This doesn't effect vision and Pt has never had this before. Pt has had this for more than a week and it is increasing in size. No available apts [facility] . Pt is advised to come to [facility] to be seen by provider and Pt [...] Description 03/28/2024 9:15 AM EST Office Visit [facility] CHC MED & PEDS [address] [place] [address] Giana Isbell MD 505 [place], [place] [id number] 06/11/2024 9:00 AM EDT Office Visit [facility] OPTOMETRY [address] [place], [place] [address] Dawna Pro, OD [address] [place] [address] documented as of this encounter Visit Diagnoses Not on filedocumented in this encounter Additional Health Concerns Assessment Noted Time PHQ-9 Depression Total Score: 7 07/30/19 23 10:13 AM EDT documented as of this encounter Care Teams Safety Engineer Pressure Vessels Relationship Specialty Start Date End Date Giana Isbell MD [address] [place] [address] PCP - General Internal Medicine 09/07/18 documented as of this encounter
--- OUTSIDE RECORDS SUMMARY | 2024-03-27 15:55 | XMS_ITS | Encounter Summary ---
Author Organization [employer] Address [address] [facility] 7t [place] [address] Care Team Providers Care Furniture Restorer Name Role Phone Giana Isbell MD Primary Care Provider [phone] Reason for Visit * Reason Onset Date Comments Hospital Follow-up 03/19/2024 Encounter Details Date Type Department Care Team ([facility] Contact Info) Description 03/19/2024 Telephone [facility] MEDICINE [address] [place] [address] Giana Isbell MD [address] [place] [address] Hospital Follow-up Social History Tobacco Use Types Packs/Day Years Used Date Smoking Tobacco: Never Passive Smoke Exposure: Never Smokeless Tobacco: Never Depression Answer Date Recorded Patient Health Questionnaire-9 Score 7 07/29/2022 Housing Stability Answer Date Recorded What is your housing situation today? I have rob alexander 03/20/[address] you li ve. Do you have problems with any of the following? None of the above 03/20/2024 Food Insecurity Answer Date Recorded Within the past 12 months, y ou worried that your food would run out before you got money to buy more: Never True 03/20/2024 Within the past 12 months,th e food you bought just didn't last and you didn't have enough money to get more: Never True 12/2024 Transportation Answer Date Recorded In the past 12 months, has l ack of transportation kept you from medical appts, meetings, work or from getting things needed for daily living? No 03/20/2024 Utilities Answer Date Recorded In the past 12 months, has t he electric, gas, oil or water company threatened to shut off services in your home? No 03/20/2024 Depression Answer Date Recorded Patient Health Questionnaire-2 Score 4 07/29/2022 Internet Access Answer Date Recorded Internet Access Q1 Yes 03/20/2024 Internet Access Q2 Not on file 03/20/2024 Comments Unknown Sex and Gender Information Value Date Recorded Sex Assigned at Female 12/07/2021 10:16 AM EDT Legal Sex Female 10:16 AM EDT Gender Identity Female 12/07/2021 10:16 AM EDT Sexual Orientation Straight 12/07/2021 10 :16 AM EDT documented as of this encounter Miscellaneous Notes * Telephone Encounter - Lars Phillips - 03/19/2024 1:58 PM EST Tc from pt requesting a HDF appt. Hospital: [facility] Date of admission: 03/13/24 Discharge date: 03/16/24 Diagnosed: Pneumonia *Send message to [place] Clinical Care Coordinators Contact Pt FURNITURE SHAMPOOER at [phone] documented in this encounter Plan of Treatment Upcoming Encounters Date Type Department Care Team (Late st Contact Info) Description 03/28/2024 9:15 AM EST Office Visit [facility] CHC MED & PEDS [address] [place] [address] Giana Isbell MD [address] [place] [address] 06/11/2024 9:00 AM EDT Office Visit [facility] OPTOMETRY [address] [place] [address] Morteza, Dawna, OD [address] [place] [address] documented as of this encounter Visit Diagnoses Not on filedocumented in this encounter Additional Health Concerns Assessment Noted Time PHQ-9 Depression Total Score: 7 07/30/19 23 10:13 AM EDT documented as of this encounter Care Teams Furniture Restorer Relationship Specialty Start Date End Date Giana Isbell MD [address] [place] [address] PCP - General Internal Medicine 09/07/18 documented as of this encounter
--- OUTSIDE RECORDS SUMMARY | 2024-03-27 15:55 | XMS_ITS | Encounter Summary ---
Author Organization [employer] Address [address] [facility] [address] 7[address] [place] [address] Care Team Providers Care Licensed Customs Broker Name Role Phone Giana Isbell MD Primary Care Provider [phone] Encounter Details Date Type Department Care Team ([facility] st Contact Info) Description 02/06/2024 Orders Only [facility] CHC MED & PEDS [address] [place] [address] Giana Isbell MD [address] [place] [address] Acquired hypothyroidism (Primary Dx) Social History Tobacco [...] Description 03/28/2024 9:15 AM EST Office Visit [facility] CHC MED & PEDS [address] [place] [address] Giana Isbell MD [address] [place] [address] 06/11/2024 9:00 AM EDT Office Visit [facility] OPTOMETRY [address] [place] [address] Morteza, Dawna, OD [address] [place] [address] Scheduled Orders Name Type Priority Associated Diagnoses [...] EST Narrative 02/10/2024 3:39 PM EST ? [facility] ?[address] ?[place] [address] ? Magnetic Resonance Report ? Signed with Addenda ? Patient: Tamia Sánchez,Tory ?MR#: [id number] ?? [id number] ? : 1965 ?Acct:[id number] ? Age/Sex: 58 / F ?ADM Date: 12/30/24 ? Loc: HO.MRI ? Attending Dr: Pardeep Marcos MD ? Ordering Physician: Pardeep Marcos MD ?? Date of Service: 02/06/24 ?? Procedure(s): MR breast BI wo/w con ?? Accession Number(s): [id number] ? cc: Giana Isbell MD; Pardeep Marcos [...] ??Carissa Raza DO ??02/13/2024 10:35 AM EST ?? RP ? Addendum Dictated By: ?Carissa Raza, DO ? Addendum Signed By: ? <Electronically signed by Carissa Raza, DO in OV> ? 02/13/245 ?? Addendum Cosigned By: ? DD/ ? [...] ??Carissa Raza DO ??02/10/2024 03:36 PM EST ? Dictated By: ?Carissa Raza DO ? Signed By: ?<Electronically signed by Carissa Raza, DO in OV> ? 02/10/24 1536 ? DD/ 0933 ? TD/TT: 02/06/24 1016 ? Classification Clerk: ? Procedure Note Donmichelle, Image - 02/13/2024 [place] [address] Magnetic Resonance Report Signed with Addenda Patient: Pat Bush#: [id number] : 1965Acct:[id number] Age/Sex: 58 / FADM Date: 02/06/24 Loc: HO.MRI Attending Dr: Pardeep Marcos MD Ordering Physician: Pardeep Marcos MD Date of Service: 02/06/24 Procedure(s): MR breast BI wo/w con Accession Number(s): [id number] cc: Giana Isbell MD; Pardeep Marcos MD [...] <Electronically signed by DO Shira in OV> 02/13/241034 Addendum Cosigned By: DD/ TD/TT: 02/06/24 EXAMINATION: [...] by: Carissa Raza DO 02/10/2024 03:36 PM [facility] Dictated By: Carissa Raza DO Signed By: <Electronically signed by Carissa Raza DO in OV> 02/10/24 1536 DD/ 0933 TD/TT: 02/06/24 1016 Classification Clerk: [facility] External Provider IMG MRI PROCEDURES Edited Result - Final documented in this encounter Visit Diagnoses Diagnosis Acquired hypothyroidism- Primary Unspecified hypothyroidism documented in this encounter Additional Health Concerns Assessment Noted Time PHQ-9 Depression Total Score: 7 07/30/19 23 10:13 AM EDT documented as of this encounter Care Teams Licensed Customs Broker Relationship Specialty Start Date End Date Giana Isbell MD [address] [place] [address] PCP - General Internal Medicine 09/07/18 documented as of this encounter
--- OUTSIDE RECORDS SUMMARY | 2024-03-27 15:55 | XMS_ITS | Encounter Summary ---
Author Organization [employer] Address [address] [facility] 7t [place] [address] Care Team Providers Care Conductor Freight Name Role Phone Giana Isbell MD Primary Care Provider [phone] Reason for Visit * Reason Onset Date Comments Hospital Follow-up 07/22/2022 Encounter Details Date Type Department Care Team ([facility] Contact Info) Description 07/22/2022 Telephone [facility] MEDICINE [address] [place] [address] Giana Isbell MD [address] [place] [address] Hospital Follow-up Social History Tobacco Use Types [...] t he electric, gas, oil or water [employer] threatened to shut off services in your [...] @ 2:45pm with PCP. Please contact at [phone] Albanian documented in this encounter Plan of Treatment Upcoming Encounters Date Type Department Care Team (Late st Contact Info) Description 03/28/2024 9:15 AM EST Office Visit [facility] CHC MED & PEDS [address] [place] [address] Giana Isbell MD [address] [place] [address] 06/11/2024 9:00 AM EDT Office Visit [facility] OPTOMETRY [address] [place] [address] Dawna Pro, OD [address] [place] [address] documented as of this encounter Visit Diagnoses Not on filedocumented in this encounter Care Teams Conductor Freight Relationship Specialty Start Date End Date Giana Isbell MD 505 [place] [address] PCP - General Internal Medicine 09/07/18 documented as of this encounter
--- OUTSIDE RECORDS SUMMARY | 2024-03-27 15:55 | XMS_ITS | Encounter Summary ---
Author Organization [employer] Address [address] [facility] [address] [address] [place] [address] Care Team Providers Care Gas Burner Operator Name Role Phone Giana Isbell MD Primary Care Provider [phone] Encounter Details Date Type Department Care Team ([facility] st Contact Info) Description 04/05/2023 Telephone [facility] MEDICINE [address] [place] [address] Giana Isbell MD [address] [place] [address] Social History Tobacco Use Types Packs/Day Years [...] Description 03/28/2024 9:15 AM EST Office Visit [facility] CHC MED & PEDS [address] [place] [address] Giana Isbell MD [address] [place] [address] 06/11/2024 9:00 AM EDT Office Visit [facility] OPTOMETRY [address] [place] [address] Morteza, Dawna, OD [address] [place] [address] documented as of this encounter Visit Diagnoses Not on filedocumented in this encounter Additional Health Concerns Assessment Noted Time PHQ-9 Depression Total Score: 7 07/30/19 23 10:13 AM EDT documented as of this encounter Care Teams Gas Burner Operator Relationship Specialty Start Date End Date Giana Isbell MD [address] [place] [address] PCP - General Internal Medicine 09/07/18 documented as of this encounter
--- OUTSIDE RECORDS SUMMARY | 2024-03-27 15:55 | XMS_ITS | Encounter Summary ---
Author Organization [employer] Address [address] [facility] [address]t [place] [address] Care Team Providers Care Rn Disease Management Name Role Phone Giana Isbell MD Primary Care Provider [phone] Encounter Details Date Type Department Care Team (Latest Contact Info) Description 02/15/2018 Abstract [facility] CONVERSIONS Dental, Provider, DDS Social [...] Description 03/28/2024 9:15 AM EST Office Visit [facility] CHC MED & PEDS [address] [place] [address] Giana Isbell MD [address] [place] [address] 06/11/2024 9:00 AM EDT Office Visit [facility] OPTOMETRY [address] [place] [address] Dawna Pro, OD [address] [place] [address] documented as of this encounter Visit Diagnoses Not on filedocumented in this encounter Care Teams Rn Disease Management Relationship Specialty Start Date End Date Giana Isbell MD [address] [place] [address] PCP - General Internal Medicine 09/07/18 documented as of this encounter
--- OUTSIDE RECORDS SUMMARY | 2024-03-27 15:55 | XMS_ITS | Encounter Summary ---
Author Organization [employer] Address [address] [facility] [address] [place] [address] Care Team Providers Care Corporate Quality Engineer Name Role Phone Giana Isbell MD Primary Care Provider [phone] Reason for Visit * Reason Onset Date Comments Nurse Triage 03/01/2023 Encounter Details Date Type Department Care Team ([facility] Contact Info) Description 03/01/2023 Telephone [facility] MEDICINE [address] [place] [address] Giana Isbell MD [address] [place] [address] Nurse Triage Social History Tobacco Use Types [...] 03/01/2023 12:46 PM EST Triage call with [employer] Radial Arm Saw Operator [place] [id number] Pt reports having surgery and not having any pain medication. Pt had a partial left thyroidectomy 02/28/23 @ [facility] and oxycodone 5mg po was ordered . Prescription was sent to [facility] pharmacy. Pt was not aware of that [...] 9:15 AM EST Office Visit [facility] CHC MED & PEDS [address] [place], [place] [phone] Giana Isbell MD [address] [place] [address] 06/11/2024 9:00 AM EDT Office Visit [facility] OPTOMETRY [address] [place] [address] Morteza, Dawna, OD [address] [place] [address] documented as of this encounter Visit Diagnoses Not on filedocumented in this encounter Additional Health Concerns Assessment Noted Time PHQ-9 Depression Total Score: 7 07/30/19 23 10:13 AM EDT documented as of this encounter Care Teams Corporate Quality Engineer Relationship Specialty Start Date End Date Giana Isbell MD [address] [place] [address] PCP - General Internal Medicine 09/07/18 documented as of this encounter
--- OUTSIDE RECORDS SUMMARY | 2024-03-27 15:55 | XMS_ITS | Encounter Summary ---
Author Organization [employer] Address [address] [place] [address] 7 [place] [address] Care Team Providers Care Medication Coordinator Name Role Phone Giana Isbell MD Primary Care Provider Reason for Referral * Imaging (Urgent) - Closed Specialty Diagnoses / Procedures Referred By Ervin chávez Referred To Contact Radiology Diagnoses Elevated alkaline phosphatase level Procedures US Abdomen Complete Giana Isbell MD [address] [place] [address] Phone: tel: fax: [address] Phone: tel: fax: Referral ID Status Reason Start Date Expiration Date Visits Re quested Visits Authorized [id number] Closed 02/17/2023 02/17/2024 1 1 Encounter Details Date Type Department Care Team (Late st Contact Info) Description 02/17/2023 Orders Only [facility] [address] [place], [place] [phone] Giana Isbell MD [address] [place], [place] [phone] Elevated alkaline phosphatase level (Primary Dx); Left [...] Description 03/28/2024 9:15 AM EST Office Visit [facility] [address] [place] [address] Giana Isbell MD [address] [place] [address] 06/11/2024 9:00 AM EDT Office Visit [facility] OPTOMETRY [address] [place] [address] Dawna Pro, OD [address] [place] [address] documented as of this encounter Procedures Procedure Name Priority Date/Time Associated Diagnosis Comments US ABDOMEN COMPLETE Urgent 03/21/2023 9 :29 AM EST Elevated alkaline phosphatase level documented in this encounter Results * US Abdomen Complete (03/21/2023 9:29 AM EST) Anatomical Region Laterality Modality Abdomen Ultrasound 03/21/2023 9:29 AM EST Narrative 03/22/2023 9:16 AM EST ? [facility] ?[address] ?[place] [address] ? Ultrasound Report ? Signed ? Patient: Tory Bush ?MR#: [id number] ?? [id number] ? : 1965 ?Acct:[id number] ? Age/Sex: 57 / F ?ADM Date: 03/21/23 ? Loc: HO.US ? Attending Dr: Giana Isbell MD ? Ordering Physician: Giana Isbell MD ?? Date of Service: 03/21/23 ?? Procedure(s): US abdomen complete ?? Accession Number(s): [id number] ? cc: Giana Isbell MD ? EXAMINATION: [...] 03/22/23911 ? DD/ 0929 ? TD/TT: ? Unstacker: ? Procedure Note Trish, Image - 03/22/2023 [place] [address] Ultrasound Report Signed Patient: Pat Bush#: [id number] : 1965Acct:[id number] Age/Sex: 57 / FADM Date: 03/21/23 Loc: HO.US Attending Dr: Giana Isbell MD Ordering Physician: Giana Isbell MD Date of Service: 03/21/23 Procedure(s): US abdomen complete Accession Number(s): [id number] cc: Giana Isbell MD EXAMINATION: US ABDOMEN [...] signed by Denise Ambrosio MD in OV> 03/22/23911 DD/ 8 TD/TT: Unstacker: us Giana Isbell MD IMG US PROCEDURES Final Res ult documented in this encounter Visit Diagnoses Diagnosis Elevated alkaline phosphatase level- Primary Left upper quadrant abdominal pain documented in this encounter Additional Health Concerns Assessment Noted Time PHQ-9 Depression Total Score: 7 07/30/19 23 10:13 AM EDT documented as of this encounter Care Teams Medication Coordinator Relationship Specialty Start Date End Date Giana Isbell MD [address] [place] [address] PCP - General Internal Medicine 09/07/18 documented as of this encounter
--- OUTSIDE RECORDS SUMMARY | 2024-03-27 15:55 | XMS_ITS | Encounter Summary ---
Author Organization [employer] Address [address] [facility] 7t [place] [address] Care Team Providers Care Letter Sorting Machine Operator Name Role Phone Giana Isbell MD Primary Care Provider [phone] Encounter Details Date Type Department Care Team (Latest Contact Info) Description 02/16/2019 Abstract [facility] CONVERSION[facility] Dental, Provider, DDS Social History [...] Description 03/28/2024 9:15 AM EST Office Visit [facility] MED [facility] PEDS [address] [place] [address] Giana Isbell MD [address] [place] [address] 06/11/2024 9:00 AM EDT Office Visit [facility] OPTOMETRY [address] [place] [address] Dawna Pro, OD [address] [place] [address] documented as of this encounter Visit Diagnoses Not on filedocumented in this encounter Care Teams Letter Sorting Machine Operator Relationship Specialty Start Date End Date Giana Isbell MD [address] [place] [address] PCP - General Internal Medicine 09/07/18 documented as of this encounter
--- OUTSIDE RECORDS SUMMARY | 2024-03-27 15:55 | XMS_ITS | Data Portability ---
Author Organization [employer] Address [address] [place] [address] Care Team Providers Care Transmission Technician Name Role Phone [facility] Referring Provider [facility] Referring Provider Assessment Encounter Date Assessment Date Assessment LastModified by Organization Details LastModified Time 10/02/2021 10/02/2021 I have reviewed and agree with the Assessment and Plan as documented by the Beveling And Edging Machine Operator. I provided real -time medical direction via phone for this encounter, and was available for additional phone based assistance as needed. Patient given the opportunity to ask questions. [email or web address] Not available 10/02/2021 19:13:58 04/13/2023 04/13/2023 Ms. Tory Cantrell is a 57yoF who is seen today for further evaluation of right eye irritation. Ms. Cantrell reports three days of right eye itching and watering. She denies any fevers but reports that her left eye is starting to also itch and she has some minimal right ear discomfort. Otherwise has been feeling well. VSS. Beveling And Edging Machine Operator site uploads picture of minimally injected and tearing right eye. Exam is c/w viral conjunctivitis . Recommended ongoing OTC therapies and cool compress/hand hygeine. Red flags to be reviewed by band instrument repairer. Not available 04/13/2023 10:45:55 Plan of Treatment Reminders Order Date Submit Date Provider Last Modified By Organization Details Last Modified Time Details Appointments None recorded. Lab None recorded. Referral None recorded. Procedures None recorded. Surgeries None recorded. Imaging None recorded. Medication Orders ketorolac 30 mg/mL (1 mL) injection solution 2021 022 [email or web address] Not available 17:32:17 Patient TargetsNo targets recorded. Patient InstructionsNo instructions recorded. Reason for Referral None Reported. Medical Equipment None Reported. Allergies Allergen ID Allergen Name Allergen Category Reaction Reaction Severity Criticality Documentation Date Start Date Code Code System Note Provider Name and Address Organization Details Recorded Time 8333 acetamino phen medicatio n Not available Not available Not available 12/06/2023 161 RxNorm Not Available [employer] [facility] [employer] 03:43:36 889 Product containin g penicilli n (product) medicatio n Not available Not available Not available 10/02/2021 77299 8001 SNOMED Not Available [employer] [facility] 03:43:36 890 hydrocodo ne Not available Not available Not available Not available 10/02/2021 5489 RxNorm Cynthia Maguire MD [address] [facility],[address], [place], [address] , [facility] [employer] 18:39:23 Medications Name Sig Start Date Stop Date Status Note LastModified by Organization Details LastModified Time celecoxib 200 mg capsule TAKE 1 CAPSULE BY MOUTH TWICE DAILY FOR MODERATE PAIN active Not Available Not Available No t Available ibuprofen 800 mg tablet TAKE 1 TABLET BY MOUTH TWICE DAILY AFTER MEALS active Not Available Not Available No t Available sumatriptan 100 mg tablet TAKE 1 TABLET BY MOUTH AT ONSET OF MIGRAINE. MAY REPEAT ONCE AFTER 2 HOURS IF NEEDED. DO NOT EXCEED 2 TABLETS IN 24 HOURS active Not Available Not Available No t Available meloxicam 15 mg tablet TAKE 1 TABLET BY MOUTH EVERY DAY active Not Available Not Available No t Available prednisone 20 mg tablet TAKE 2 TABLETS BY MOUTH ONCE DAILY FOR 5 DAYS active Not Available Not Available No t Available sertraline 100 mg tablet TAKE 1 AND 1/2 TABLETS BY MOUTH DAILY active Not Available Not Available No t Available metronidazole 500 mg tablet TAKE 1 TABLET BY MOUTH EVERY TWELVE HOURS active Not Available Not Available No t Available quetiapine 100 mg tablet TAKE 1 TABLET BY MOUTH DAILY AT BEDTIME NEEDED active Not Available Not Available No t Available ketorolac 30 mg/mL (1 mL) injection solution 15 mg x 1 for pain 2021 active Not Available Not Available Not Avai lable levothyroxine 50 mcg tablet TAKE 1 TABLET BY MOUTH EVERY DAY active Not Available Not Available No t Available venlafaxine 37.5 mg tablet TAKE 1 TABLET BY MOUTH TWICE DAILY active Not Available Not Available No t Available Banophen 25 mg tablet TAKE 1 TABLET BY MOUTH THREE TIMES A DAY NEEDED FOR ITCHING active Not Available Not Available No t Available docusate sodium 100 mg capsule TAKE 1 CAPSULE BY MOUTH AT BEDTIME NEEDED active Not Available Not Available No t Available hydrocortison e 2.5 % topical cream USE 1 APPL TOPICALLY 3 TIMES A DAY NEEDED FOR ITCHING active Not Available Not Available No t Available morphine 15 mg immediate release tablet TAKE 1 TABLET BY MOUTH EVERY 6 HOURS NEEDED FOR PAIN active Not Available Not Available No t Available fluticasone propionate 50 mcg/actuation nasal spray,suspens ion USE 1-2 SPRAYS IN EACH NOSTRIL EVERY DAY NEEDED active Not Available Not Available No t Available doxycycline hyclate 100 mg tablet TAKE 1 AND 1/2 TABLETS BY MOUTH TWICE DAILY active Not Available Not Available No t Available nortriptyline 50 mg capsule TAKE 2 CAPSULES BY MOUTH EVERY DAY active Not Available Not Available No t Available diclofenac 1 % topical gel APPLY 2 GRAMS TOPICALLY TO AFFECTED AREA(S) THREE TIMES DAILY active Not Available Not Available No t Available Vitamin D3 50 mcg (2,000 unit) capsule TAKE 1 CAPSULE BY MOUTH EVERY DAY active Not Available Not Available No t Available Vitals Date Recorded Oxygen saturation Oxygen saturation in Arterial blood by Pulse oximetry Heart rate Respiratory rate Body weight Body temperature Systolic blood pressure Diastolic blood pressure Provider Name and Address Organization Details Last Updated DateTime 4 98 % 98 % 88 /min 18 /min 34373.8 8 g 97.6 [degF] 124 mm[Hg] 76 mm[Hg] Not Available [facility] [employer] 10:39:50 Date Recorded Body temperature Heart rate Oxygen saturation Oxygen saturation in Arterial blood by Pulse oximetry Respiratory rate Oxygen saturation Oxygen saturation in Arterial blood by Pulse oximetry Body temperature Heart rate Respiratory rate Systolic blood pressure Diastolic blood pressure Systolic blood pressure Diastolic blood pressure Provider Name and Address Organization Details Last Updated DateTime 2 98.5 [degF] 72 /min 98 % 98 % 12 /min 98 % 98 % 98.5 [degF] 72 /min 12 /min 120 mm[Hg] 70 mm[Hg] 120 mm[Hg] 70 mm[Hg] Not Available [facility] [employer] [facility] 17:37:54 Date Recorded Body weight Provider Name an d Address Organization Details Last Updated DateTime 10/02/2021 733[address].01 g Shravan Mallory [address] [place] [address],[address], [place], [address], [facility] [employer] [facility] 10/02/2021 18:45:32 Social History None recorded. Functional Status None recorded. Mental Status None recorded. Family History Nothing Reported. Medical History No medical history recorded. Gynecological HistoryNo gynecological history recorded. Obstetrics History GPAL:G 0 P 0 0 0 0 Past Encounters Encounter ID Performer Location Encounter Start Date Encounter Closed Date Diagnosis/Indication Diagnosis SNOMED-CT Code Diagnosis ICD10 Code Diagnosis Note [id number] Cynthia Maguire MD [facility] - [address] [address] 10/02/2021 16:58:56 10/21/2021 11:37:50 Pain in right heel 1443402207 311794 M79.671 possible plantar fasciitis- vs talar tendonitis advised to elevate/ apply ice wrapped in a towel- apply for 15- 20 min q 3-4 H w/a. Avoid WB- needs to see ortho- may need injection- to keep appt w/ ortho next Tue. will cover w/ ketorolac for tonight/ Advised may have Tylenol 650 mg q 6 h prn pain as well- continue Naprosyn in am Delilah Hope MD [facility] - [address] [phone] 04/13/2023 10:39:45 04/14/2023 09:54:22 Viral conjunctivitis 38373598 B30.9 Health Concerns Section Related Observation LastModified by Organization Detai ls LastModified Time None Recorded Concern Status LastModified by Organization Details LastModified Time None Recorded Advance Directives Directive None Recorded Payers Encounter Date Sequence Insurance Name Policy Number Policy Pastor Covered Member ID Pastor Member ID Guarantor Name 10/02/2021 1 [facility] [place] - DOS PRIOR TO 2022 - DUAL ELIGIBLE (MEDICARE REPLACEMENT/ADV ANTAGE - HMO) Tory Cantrell [id number] Tory Cantrell 04/13/2023 1 [facility] [place] - DOS ON OR AFTER 2022 - DUAL ELIGIBLE - [employer] AND ONE CARE (MEDICARE REPLACEMENT/ADV ANTAGE - HMO) Tory Cantrell [id number] Tory Cantrell Notes Date Note Type Note Provider Name and Address Organization Details Recorded Time 10/02/2021 text/html HPI: History of Migraines. Arthritis and heel spur on left side. Allergic to Hydrocodone Bitartrate .................. .................. .................. .................. .................. .................. .................. ............... CRC Nursing Assessment: Comments: CRC RN did not require any additional information to process this visit. .................. .................. .................. .................. .................. .................. .................. ............... Beveling And Edging Machine Operator Note: Eval for right heel pain. pt stated she has had right heel pain for about 1 month, getting worse lately. Pt states she has appointment with ortho on Tuesday- pt has HX of tendon surgeries and chronic pain. pt states pain is bottom of heel, with discomfort generalized around ankle. no other new pain. pt denied fever/chills, denied sob/cp. [facility] recommended ice, elevate and we gave 15mg toradol for temp relief of pain. pt to follow up with pcp .................. .................. .................. .................. .................. .................. .................. ............... Disposition: FulfilledSEGMD: As above- hx chronic pain- On Naprosyn 500 mg q AM- denies hx CKD- not on anticoagulants- denies numbness/ tingling- worse w/ palpation/ ambulation/ WB Cynthia Maguire MD [address] [place] [address],[address], [place], [address], [employer] 10/03/2021 17:32:32 04/13/2023 text/html HPI: HX Depression,migrain es. Three day history of eye irritation redness with drainage. No fever.slight ear discomfort. .................. .................. .................. .................. .................. .................. .................. ............... CRC Nurse Triage Notes (Yvetet Guerra): Comments: HPI reviewed. No further information reviewed to process visit. .................. .................. .................. .................. .................. .................. .................. ............... Beveling And Edging Machine Operator Note From Devan Brown: Pt co irrigation and itching in right eye now starting in left, symptoms for 3 days. Pt denies fever NVD cough headaches. Baseline vitals assessed. Eye assessment, eye slight watering mild redness. Left eye slightly watery no redness. C contacted and advised OTC visine ointment. Pt advised to monitor symptoms and if worsening or not better in 7-10 days to contact pcp. Pt education on signs indicating the ER. Beveling And Edging Machine Operator Allergies: Acetaminophen, Penicillin .................. .................. .................. .................. .................. .................. .................. ............... Disposition: Fulfilled Delilah Hope MD [address] [facility],[address], [place], [address], [employer] 04/13/2023 16:03:59 OBGyn Episode No OBEpisode recorded.
--- OUTSIDE RECORDS SUMMARY | 2024-03-27 15:55 | XMS_ITS | Encounter Summary ---
Author Organization [employer] Address [address] [facility] [address]t [place] [address] Care Team Providers Care Adhesive Primer Name Role Phone Giana Isbell MD Primary Care Provider [phone] Encounter Details Date Type Department Care Team ([facility] st Contact Info) Description 05/06/2023 Orders Only [facility] MED & PEDS [address] [place] [address] Giana Isbell MD 505 [place] [address] Acquired hypothyroidism (Primary Dx) Social History Tobacco [...] Description 03/28/2024 9:15 AM EST Office Visit [facility] MED & PEDS [address] [place] [address] Giana Isbell MD [address] [place] [address] 06/11/2024 9:00 AM EDT Office Visit [facility] OPTOMETRY [address] [place] [address] MortezaDawna, OD [address] [place] [address] documented as of this encounter Procedures Procedure Name Priority Date/Time Associated Diagnosis Comments TSH W/REFLEX TO FT4 Routine 02/06/2024 10:45 AM EST Acquired hypothyroidism documented in this encounter Results * (ABNORMAL) TSH W/Reflex to FT4 (02/06/2024 10:45 AM EST) TSH reflex Free T4 10.06(H) 0.32 - 4.0 uIU/mL [facility] Blood Venous blood specimen / Unknown 02/06/2024 10:45 AM EST 02/06/2024 10:45 AM EST Giana Isbell MD LAB BLOOD ORDERABLES Final Result [facility] [address] [place] [address] [phone] documented in this encounter Visit Diagnoses Diagnosis Acquired hypothyroidism- Primary Unspecified hypothyroidism documented in this encounter Additional Health Concerns Assessment Noted Time PHQ-9 Depression Total Score: 7 07/30/19 23 10:13 AM EDT documented as of this encounter Care Teams Adhesive Primer Relationship Specialty Start Date End Date Giana Isbell MD [address] [place] [address] PCP - General Internal Medicine 09/07/18 documented as of this encounter
--- OUTSIDE RECORDS SUMMARY | 2024-03-27 15:55 | XMS_ITS | Encounter Summary ---
Author Organization [employer] Address [address] [facility] [address] [place] [address] Care Team Providers Care Wine And Spirits Clerk Name Role Phone Giana Isbell MD Primary Care Provider [phone] Reason for Visit * Reason Onset Date Comments Triage 06/03/2022 Encounter Details Date Type Department Care Team ([facility] Contact Info) Description 06/03/2022 Telephone [facility] [address] [place] [address] Giana Isbell MD [address] [place] [address] Triage Social History Tobacco Use Types Packs/Day [...] caller accepted this outcome Please contact at [phone] Guyanese documented in this encounter Plan of Treatment Upcoming Encounters Date Type Department Care Team (Late st Contact Info) Description 03/28/2024 9:15 AM EST Office Visit [facility] MED [facility] PEDS [address] [place] [address] Giana Isbell MD [address] [place] [address] 06/11/2024 9:00 AM EDT Office Visit [facility] OPTOMETRY [address] [place] [address] Dawna Pro, OD [address] [place] [address] documented as of this encounter Visit Diagnoses Not on filedocumented in this encounter Care Teams Wine And Spirits Clerk Relationship Specialty Start Date End Date Giana Isbell MD [address] [place] [address] PCP - General Internal Medicine 09/07/18 documented as of this encounter
--- OUTSIDE RECORDS SUMMARY | 2024-03-27 15:55 | XMS_ITS | Encounter Summary ---
Author Organization [employer] Address [address] [facility] [address]t [place] [address] Care Team Providers Care Bioinformatics Engineer Name Role Phone Giana Isbell MD Primary Care Provider [phone] Reason for Visit * Reason Comments Transition Of Care (Tcm) HDF scheduled a nd SDOH screening negative and Tobacco screening negative Encounter Details Date Type Department Care Team (Late st Contact Info) Description 03/20/[address] [facility] MEDICINE [address] [place] [address] Giana Isbell MD [address] [place] [address] Transition Of Care (Tcm) (HDF scheduled and SDOH screening negative and Tobacco screening negative) Social History Tobacco Use Types Packs/Day Years [...] as of this encounter Miscellaneous Notes * Significant Event - Elle Anderson - 03/20/2024 8:37 AM EST 03/20/24 0836 [facility] Type of Visit Hospital Admission Date of Admission/Visit 03/13/24 Date of Discharge 03/16/24 [facility] Diagnosis Pneumonia Disposition Discharged Home Follow-Up Actions Follow-Up Needed Provider appointment Follow-Up Outcome Spoke to Patient;Booked Appointment Initial Contact Date 03/20/24 IWONA Cheney placed second outbound call to patient for HDF outreach. Patient's name and were confirmed. Patient educated on the importance of follow up with provider following inpatient admission. Patient offered an HDF appt. Patient is agreeable to an appointment and has been scheduled for 03/28/2024 at 9:15am with Dr. Isbell. Insurance verified prior to scheduling. Patient also notified that a [facility] pharmacist will be reaching out to them via telephone prior to their scheduled appointment in order to review their medications in preparation for their appointment. Patient advised to bring to appointment a photo id and insurance card. Patient provided with education on contacting the Health Center with any questions or concerns prior to the scheduled appointment. Patient educated on extended clinic hours on Mondays and Wednesdays, and Walk-In Urgent Care Located in [place] [facility]. Patient provided with after-hours line for [facility], , which offer night time triage ser vice and option to transfer to computer applications developer provider if needed. CC scanned discharge summary into patient's chart. Biggest concern for appointment at this time is no concerns. Appropriate screenings completed in anticipation of appointment. documented in this encounter Plan of Treatment Upcoming Encounters Date Type Department Care Team (Late st Contact Info) Description 03/28/2024 9:15 AM EST Office Visit [facility] CH[facility] MED & PEDS [address] [place] [address] Giana Isbell MD [address] [place], [place] [phone] 06/11/2024 9:00 AM EDT Office Visit [facility] OPTOMETRY [address] [place] [address] Morteza, Dawna, OD [address] [place] [address] documented as of this encounter Visit Diagnoses Not on filedocumented in this encounter Additional Health Concerns Assessment Noted Time PHQ-9 Depression Total Score: 7 07/30/19 23 10:13 AM EDT documented as of this encounter Care Teams Bioinformatics Engineer Relationship Specialty Start Date End Date Giana Isbell MD [address] [place] [address] PCP - General Internal Medicine 09/07/18 documented as of this encounter
--- OUTSIDE RECORDS SUMMARY | 2024-03-27 15:55 | XMS_ITS | Encounter Summary ---
Author Organization [employer] Address [address] [place] [address] 7[address] [place] [address] Care Team Providers Care Booster Plant Operator Name Role Phone Giana Isbell MD Primary Care Provider [phone] Reason for Visit * Reason Comments Med Refill Encounter Details Date Type Department Care Team ([facility] Contact Info) Description 03/31/2022 Refill [facility] MED & PEDS [address] [place] [address] Giana Isbell MD [address] [place] [address] Acquired hypothyroidism (Primary Dx); Other constipation; Depressive [...] Upcoming Encounters Date Type Department Care Team ([facility] Contact Info) Description 03/28/2024 9:15 AM EST Office Visit [facility] MED & PEDS [address] [place] [address] Giana Isbell MD [address] [place] [address] 06/11/2024 9:00 AM EDT Office Visit [facility] OPTOMETRY [address] [place] [address] Morteza, Dawna, OD [address] [place] [address] documented as of this encounter Visit Diagnoses Diagnosis Acquired hypothyroidism- Primary Unspecified hypothyroidism Other constipation Depressive disorder Depressive disorder, not elsewhere classified Seasonal allergies Allergic rhinitis, cause unspecified Migraine without aura and without status migrainosus, not intractable documented in this encounter Care Teams Booster Plant Operator Relationship Specialty Start Date End Date Giana Isbell MD [address] [place] [address] PCP - General Internal Medicine 09/07/18 documented as of this encounter
--- OUTSIDE RECORDS SUMMARY | 2024-03-27 15:55 | XMS_ITS | Encounter Summary ---
Author Organization [employer] Address [address] [facility] [place] [address] Care Team Providers Care Neuro Psych Sales Specialist Name Role Phone Giana Isbell MD Primary Care Provider [phone] Reason for Referral * Consultation (Routine) - Authorized Specialty Diagnoses / Procedures Referred By Contharman t Referred To Contact Cardiology Diagnoses SOB (shortness of breath) Giana Isbell MD [address] [place] [address] Phone: tel: fax: Kavon Berumen MD [address] [facility] Floor [address] [place] [address] Phone: tel: fax: Referral ID Status Reason Start Date Expiration Date Visits Requested Visits Authorized [id number] Authorized Specialty Services Required 12/18/2024 1 1 Encounter Details Date Type Department Care Team (Late st Contact Info) Description 12/19/2023 Orders Only [facility] CH[facility] MED & PEDS [address] [place] [address] Giana Isbell MD [address] [place] [address] SOB (shortness of breath) (Primary Dx) Social [...] 9:15 AM EST Office Visit [facility] CHC MED & PEDS [address] [place] [address] Giana Isbell MD [address] [place] [address] 06/11/2024 9:00 AM EDT Office Visit [facility] OPTOMETRY [address] [place], [place] [id number] Dawna Pro, OD [address] [facility] [address] Scheduled Referrals Name Type Priority Associated Diagnoses [...] EST Narrative 01/18/2024 9:40 AM EST ? [facility] [place] ? [address] ?[place] [address] ? Ultrasound Report ? Signed with Addenda ? Patient: Tory Bush ?MR#: [id number] ?? [id number] ? : 1965 ?Acct:[id number] ? Age/Sex: 58 / F ?ADM Date: 01/18/24 ? Loc: HO.MAMMO ? Attending Dr: Pardeep Marcos MD ? Ordering Physician: Pardeep Marcos MD ?? Date of Service: 01/18/24 ?? Procedure(s): US breast ndl core biopsy RT ?? Accession Number(s): [id number] ? cc: Giana Isbell MD; Pardeep Marcos [...] DD/ 0800 ? TD/TT: 01/18/24 0835 ? Filling Operator: ? Procedure Note Trish, Image - 01/25/2024 [facility] [address] [place] [address] Ultrasound Report Signed with Addenda Patient: Pat Bush#: [id number] : 1965Acct:[id number] Age/Sex: 58 / FADM Date: 01/18/24 Loc: HO.MAMMO Attending Dr: Pardeep Marcos MD Ordering Physician: Pardeep Marcos MD Date of Service: 01/18/24 Procedure(s): US breast ndl core biopsy RT Accession Number(s): [id number] cc: Giana Isbell MD; Pardeep Marcos MD [...] OV> 01/18/2437 DD/ 0800 TD/TT: 01/18/24 0835 Filling Operator: [facility] External Provider IMG US PROCEDURES Edited Result - Final * BI Mammogram Diagnostic Tomosynthesis Right (01/18/2024 8:00 AM EST) Anatomical Region Laterality Modality Breast Right Mammography 01/18/2024 8:00 AM EST Narrative 01/18/2024 9:40 AM EST ? [facility] ? [address] ?[place] [address] ? Mammography Report ? Signed with Addenda ? Patient: Tamia SánchezTory ?MR#: [id number] ?? [id number] ? : 1965 ?Acct:[id number] ? Age/Sex: 58 / F ?ADM Date: 12/11/24 ? Loc: HO.MAMMO ? Attending Dr: Pardeep Marcos MD ? Ordering Physician: Pardeep Marcos MD ?Results: ? Date of Service: 01/18/24 ?Follow Up: ? Procedure(s): MM tomosynthesis diagnostic RT ?? Accession Number(s): [id number] ? cc: Giana Isbell MD; Pardeep Marcos [...] ??Carissa Raza DO ??01/25/2024 08:54 AM EST ? Addendum Dictated By: ?Carissa [...] DD/ 0800 ? TD/TT: 01/18/24 0835 ? Filling Operator: ? Procedure Note Trish, Image - 01/25/2024 [facility] [address] [place] [address] Mammography Report Signed with Fani Patient: Pat Bush#: [id number] : 1965Acct:[id number] Age/Sex: 58 / FADM Date: 01/18/24 Loc: [facility] Attending Dr: Pardeep Marcos MD Ordering Physician: Pardeep Marcosults: Date of Service: 01/18/24Follow Up: Procedure(s): MM tomosynthesis diagnostic RT Accession Number(s): [id number] cc: Giana Isbell MD; Pardeep Marcos MD [...] <Electronically signed by DO Shira in OV> 01/25/2454 Addendum Cosigned By: DD/ /01/800 TD/TT: 01/18/2412/31/834 [...] Carissa Raza DO in OV> 01/18/2437 DD/ 9 TD/TT: 01/18/24 0835 Filling Operator: [facility] External Provider IMG BI PROCEDURES Edited Result - Final documented in this encounter Visit Diagnoses Diagnosis SOB (shortness of breath)- Primary Shortness of breath documented in this encounter Additional Health Concerns Assessment Noted Time PHQ-9 Depression Total Score: 7 07/30/19 23 10:13 AM EDT documented as of this encounter Care Teams Neuro Psych Sales Specialist Relationship Specialty Start Date End Date Giana Isbell MD [address] [place] [address] PCP - General Internal Medicine 09/07/18 documented as of this encounter
--- OUTSIDE RECORDS SUMMARY | 2024-03-27 15:55 | XMS_ITS | Encounter Summary ---
Author Organization [employer] Address [address] [facility] 7 [place] [address] Care Team Providers Care Coding Coordinator Name Role Phone Giana Isbell MD Primary Care Provider [phone] Reason for Visit * Reason Comments Transition Of Care (Tcm) HDF unscheduled LVM Encounter Details Date Type Department Care Team ([facility] st Contact Info) Description 03/19/2024 Patient Outreach [facility] MEDICINE [address] [place] [address] Giana Isbell MD [address] [place] [address] Transition Of Care (Tcm) (HDF unscheduled LVM ) Social History Tobacco Use Types Packs/Day Years [...] * Significant Event - Elle Anderson - 03/19/2024 2:25 PM EST 03/19/24 1421 Hospital Discharges and Admission for PCM Type of Visit Hospital Admission Date of Admission/Visit 03/13/24 Date of Discharge 03/16/24 Facility [facility] Diagnosis pneumonia Disposition Discharged Home Follow-Up Actions Follow-Up Needed Provider appointment Follow-Up Outcome Left Voicemail Initial Contact Date 03/19/24 CC Elle Marroquin placed outbound call to patient for HDF outreach. CC placing call to offer patient with an HDF appointment with provider. No answer at this time. Patient's name and were not confirmed. CC left detailed message educating patient on importance of following up with provider following an inpatient admission. Provided contact information requesting a call back in order to schedule theHDF appointment. Patient educated via voicemail on extended clinic hours on Mondays and Wednesdays,and Walk-In Urgent Care Located in [facility]. Patient provided with after-hours line for [facility], , which offer night time triage service and option to transfer to alliance consultant provider if needed. CC scanned discharge summary into patient's chart. CC will place additional outreach call within2-5 business days. documented in this encounter Plan of Treatment Upcoming Encounters Date Type Department Care Team (Late st Contact Info) Description 03/28/2024 9:15 AM EST Office Visit [facility] CHC MED & PEDS [address] [place], [place] [phone] Giana Isbell MD [address] [place] [address] 06/11/2024 9:00 AM EDT Office Visit [facility] OPTOMETRY [address] [place], [place] [phone] Dawna Pro, OD [address] [place] [address] documented as of this encounter Visit Diagnoses Not on filedocumented in this encounter Additional Health Concerns Assessment Noted Time PHQ-9 Depression Total Score: 7 07/30/19 23 10:13 AM EDT documented as of this encounter Care Teams Coding Coordinator Relationship Specialty Start Date End Date Giana Isbell MD [address] [place] [address] PCP - General Internal Medicine 09/07/18 documented as of this encounter
--- OUTSIDE RECORDS SUMMARY | 2024-03-27 15:55 | XMS_ITS | Encounter Summary ---
Author Organization [employer] Address [address] [facility] 7t [place] [address] Care Team Providers Care Special Procedure Technologist Name Role Phone Giana Isbell MD Primary Care Provider [phone] Encounter Details Date Type Department Care Team (Latest Contact Info) Description 11/13/2020 Abstract [facility] CONVERSIONS Dental, Provider, DDS Social History [...] Description 03/28/2024 9:15 AM EST Office Visit [facility] CHC MED & PEDS [address] [place] [address] Giana Isbell MD [address] [place] [address] 06/11/2024 9:00 AM EDT Office Visit [facility] OPTOMETRY [address] [place] [address] Dawna Pro, OD [address] [place] [address] documented as of this encounter Visit Diagnoses Not on filedocumented in this encounter Care Teams Special Procedure Technologist Relationship Specialty Start Date End Date Giana Isbell MD [address] [place] [address] PCP - General Internal Medicine 09/07/18 documented as of this encounter
--- OUTSIDE RECORDS SUMMARY | 2024-03-27 15:56 | XMS_ITS | Encounter Summary ---
Author Organization [employer] Address [address] [facility] [address] [place] [address] Care Team Providers Care Strip Presser Name Role Phone Giana Isbell MD Primary Care Provider [phone] Encounter Details Date Type Department Care Team ([facility] Contact Info) Description 03/13/2024 Orders Only GENERIC [...] 03/28/2024 9:15 AM EST Office Visit [facility] [address] [place], [place] [phone] Giana Isbell MD [address] [place], [place] [phone] 06/11/2024 9:00 AM EDT Office Visit [facility] [address] [place] [address] MortezaDawna priest, OD [address] [place] [address] documented as of this encounter Procedures Procedure Name Priority Date/Time Associated Diagnosis Comments LACTIC ACID Routine 03/13/2024 6:39 PM EST CTA CHEST PE PROTOCAL Routine 03/13/2024 4:24 PM EST HIGH SENSITIVITY TROPONIN I Routine 03/13/2024 4:05 PM EST D DIMER HIGH SENSITIVITY Routine [...] METABOLIC PANEL Routine 03/13/2024 2:52 PM EST XR CHEST 1 VIEW Routine 03/13/2024 2:39 PM EST documented in this encounter Results * Lactic Acid (03/13/2024 6:39 PM EST) Lactic Acid 1.0 0.5 - 2.0 mmol/L [facility] 03/13/2024 6:39 PM EST 03/13/2024 6:41 PM EST us Generic External Data Provider LAB BLOOD ORDERAB LES Final Result Performing Organization Address City/State/[facility] Co de Phone Number [facility] [address] [place] [address] [phone] * CTA Chest PE Protocal (03/13/2024 4:24 PM EST) Anatomical Region Laterality Modality Body, Chest Computed Tomogra phy 03/13/2024 4:24 PM EST Narrative 03/13/2024 5:03 PM EST ? [facility] ?[address] ?[place] [address] ? CT Scan Report ? Signed ? Patient: Tamia Sánchez,Tory ?MR#: [id number] ?? [id number] ? : 1965 ?Acct:[id number] ? Age/Sex: 58 / F ?ADM Date: 02/04/25 ? Loc: HO.ED ? Attending Dr: ? Ordering Physician: Kristi Bazan ?? Date of Service: 03/13/24 ?? Procedure(s): CT angio chest PE protocol ?? Accession Number(s): [id number] ? cc: Giana Isbell MD; Kristi Bazan ? Report Number: ?? [id number]: Total DLP = ??202.00 mGy-cm ?? EXAMINATION: ?? CT ANGIOGRAM CHEST ? CLINICAL INFORMATION: ?? Chest pain and dyspnea tachycardia. Elevated d-dimer. ? COMPARISON: ?? 09/03/2017. ? TECHNIQUE: ?? Multiple axial images were obtained through the chest after the ?? administration of 50 mL of Omnipaque 350 intravenous contrast. ?? Extensive vascular post-processing including two-dimensional and ?? three-dimensional reformatted images were created and reviewed on an ?? independent workstation. ? This CT examination was performed using dose optimization techniques as ?? appropriate, variously including the following: ?? *Automated exposure control ?? *Adjustment of mA and/or kV according to patient size (this includes ?? techniques or standardized protocols for targeted exams where dose is ?? matched to indication/reason for exam; i.e. extremities or head) ?? *Use of iterative reconstruction technique ? FINDINGS: ?? Left chest port in place, tip extending into the cavoatrial junction. ? LUNGS: ?? -Lungs are clear bilaterally. No consolidations or abnormal groundglass ?? opacities. ?? -Mild mosaic attenuation of the left lower lobe lobes present, most ?? likely secondary to mild air trapping. ?? -There is endobronchial mucous plugging and small airway thickening in ?? the left lower lobe suggestive of possible focal bronchopneumonia. ? There are associated left lower lobe groundglass changes. ?? -No pleural effusion or pneumothorax. ?? -Central airways are patent. ? PLEURA: There is no pleural effusion. No pleural mass or thickening. ? MEDIASTINUM: ?? -Heart size is normal. No right heart strain. No pericardial effusion. ?? -Thyroid is diminutive. ?? -No adenopathy in the mediastinum or hilum. ?? -Mildly patulous esophagus present with a small type I hiatus hernia. ? VASCULAR: ?? -There is no pulmonary embolus. ?? -The main pulmonary artery is normal in size. ?? -There is no evidence of contrast reflux into the IVC. ?? -The aorta is normal in caliber and course. No evidence of acute aortic ?? syndrome. ? AXILLA/CHEST WALL: ?? -No lymphadenopathy. ? UPPER ABDOMEN: ?? -Cholecystectomy. ? OSSEOUS STRUCTURES: ?? -No suspicious lytic or blastic bone lesions. ? CT/CT angio chest PE protocol ?? IMPRESSION: ?? 1. No evidence of pulmonary embolus. Normal caliber pulmonary arteries. ?? 2. No evidence of acute aortic syndrome. ?? 3. Small airway thickening, endobronchial mucous plugging, and subtle ?? groundglass changes left lower lobe suspicious for a subtle ?? bronchopneumonia. Associated mild air trapping. Lungs otherwise clear. ?? 4. No lymphadenopathy. ?? 5. Small type I hiatus hernia. ?? 6. Left chest port in good position. ? Electronically signed by: ??Ant Cole MD ??03/13/2024 05:00 PM EST RP ? Dictated By: ?Ant Cole MD ? Signed By: ?<Electronically signed by Ant Cole MD in OV> ?03/13/24 1700 ? DD/ 1624 ? TD/TT: 03/13/24 1642 ? Customer Account Manager: ? Procedure Note Trish, Image - 03/13/[address] [place] [address] [address] Scan Report Signed Patient: Pat Bush#: [id number] : 1965Acct:[id number] Age/Sex: 58 / FADM Date: 03/13/24 Loc: HO.ED Attending Dr: Ordering Physician: Kristi Bazan Date of Service: 03/13/24 Procedure(s): CT angio chest PE protocol Accession Number(s): [id number] cc: Giana Isbell MD; Kristi Bazan Report Number: [id number]: Total DLP = 202.00 mGy-cm EXAMINATION: CT ANGIOGRAM CHEST CLINICAL INFORMATION: Chest pain and dyspnea tachycardia. Elevated d-dimer. COMPARISON: 09/03/2017. TECHNIQUE: Multiple axial images were obtained through the chest after the administration of 50 mL of Omnipaque 350 intravenous contrast. Extensive vascular post-processing including two-dimensional and three-dimensional reformatted images were created and reviewed on an independent workstation. This CT examination was performed using dose optimization techniques as appropriate, variously including the following: *Automated exposure control *Adjustment of mA and/or kV according to patient size (this includes techniques or standardized protocols for targeted exams where dose is matched to indication/reason for exam; i.e. extremities or head) *Use of iterative reconstruction technique FINDINGS: Left chest port in place, tip extending into the cavoatrial junction. LUNGS: -Lungs are clear bilaterally. No consolidations or abnormal groundglass opacities. -Mild mosaic attenuation of the left lower lobe lobes present, most likely secondary to mild air trapping. -There is endobronchial mucous plugging and small airway thickening in the left lower lobe suggestive of possible focal bronchopneumonia. There are associated left lower lobe groundglass changes. -No pleural effusion or pneumothorax. -Central airways are patent. PLEURA: There is no pleural effusion. No pleural mass or thickening. MEDIASTINUM: -Heart size is normal. No right heart strain. No pericardial effusion. -Thyroid is diminutive. -No adenopathy in the mediastinum or hilum. -Mildly patulous esophagus present with a small type I hiatus hernia. VASCULAR: -There is no pulmonary embolus. -The main pulmonary artery is normal in size. -There is no evidence of contrast reflux into the IVC. -The aorta is normal in caliber and course. No evidence of acute aortic syndrome. AXILLA/CHEST WALL: -No lymphadenopathy. UPPER ABDOMEN: -Cholecystectomy. OSSEOUS STRUCTURES: -No suspicious lytic or blastic bone lesions. CT/CT angio chest PE protocol IMPRESSION: 1. No evidence of pulmonary embolus. Normal caliber pulmonary arteries. 2. No evidence of acute aortic syndrome. 3. Small airway thickening, endobronchial mucous plugging, and subtle groundglass changes left lower lobe suspicious for a subtle bronchopneumonia. Associated mild air trapping. Lungs otherwise clear. 4. No lymphadenopathy. 5. Small type I hiatus hernia. 6. Left chest port in good position. Electronically signed by: Ant Cole MD 03/13/2024 05:00 PM [facility] Dictated By: Ant Cole MD Signed By: <Electronically signed by Ant Cole MD in OV> 03/13/24 1700 DD/ 1624 TD/TT: 03/13/24 1642 Customer Account Manager: [facility] External Provider IMG CT PROCEDURES Final Result * High Sensitivity Troponin I (03/13/2024 4:05 PM EST) [facility] TROPONIN I HIGH SENSITIVITY 5.8 <3.5 - 17.0 ng/L [facility] Comment:The Dinh high sens itivity Troponin-I results should beused in conjunction with other diagnostic information suchas ECG, clinical observations and information, and patientsymptoms to aid in the diagnosis of NE. 03/13/2024 4:05 PM EST 03/13/2024 4:09 PM EST Generic External Data Provider LAB BLOOD ORDERAB LES Final Result Performing Organization Address [facility] de Phone Number [facility] [address] [place] [phone] * Magnesium (03/13/2024 2:52 PM EST) [facility] Magnesium 1.9 1.6 - 2.6 mg/dL [facility] 03/13/2024 2:52 PM EST 03/13/2024 3:00 PM EST Generic External Data Provider LAB BLOOD ORDERAB LES Final Result Performing Organization Address [facility] de Phone Number [facility] [address] [place] [phone] * (ABNORMAL) Basic Metabolic Panel (03/13/2024 2:52 PM EST) [facility] Sodium 140 135 - 145 mmol/L [facility] Potassium 4.0 3.3 - 5.1 mmol/L [facility] Comment:Slight Hemolysis.Int erpret result with caution. Chloride 109(H) 96 - 108 mmol/L [facility] Carbon Dioxide 22 22 - 29 mmol/L [facility] Anion Gap 13 12 - 20 [facility] Urea Nitrogen (BUN) 20(H) 9 - 16 mg/dL [facility] Creatinine, Serum 0.93 0.5 - 1.4 mg/dL [facility] Creatinine Clr Calc Pharmacy 54.5 [facility] Comment:Provided height and weight: 160.02 cm,58.967 kg.eGFR (calculated from the MDRD study equation) and eCrCl(calculated from the Cockcroft-Gault equation) are based ondifferent parameters and may not yield comparable results.If eCrCl result is absurd, please check patient'sheight/weight. Estimated Glomerular Filt Rate >60 [facility] Comment:Chronic Kidney Disea se: Estimated GFR < 60 mL/min/1.14g7Mznzit Kidney Disease: Estimated GFR < 15 mL/min/1.73m2 Glucose 123(H) 60 - 115 mg/dL [facility] Calcium 9.0 8.4 - 10.2 mg/dL [facility] 03/13/2024 2:52 PM EST 03/13/2024 3:00 PM EST us Generic External Data Provider LAB BLOOD ORDERAB LES Final Result [facility] [address] [place] [phone] * (ABNORMAL) Hepatic Function Panel (03/13/2024 2:52 PM EST) Bilirubin, Total 0.5 0.0 - 1.0 mg/dL [facility] Bilirubin, Direct 0.1 0.0 - 0.5 mg/dL [facility] Aspartate Amino Transferase 33(H) 5 - 31 U/L [facility] Comment:Slight Hemolysis.Int erpret result with caution. Alanine Aminotransferase 38(H) 0 - 31 U/L [facility] Total Protein 6.7 6.5 - 8.0 g/dL [facility] Albumin Level 3.7 3.5 - 5.0 g/dL [facility] Alkaline Phosphatase 161(H) 39 - 117 U/L [facility] 03/13/2024 2:52 PM EST 03/13/2024 3:00 PM EST Generic External Data Provider LAB BLOOD ORDERAB LES Final Result Performing Organization Address [facility] Co de Phone Number [facility] [address] [place] [phone] * SARS-CoV-2 RNA, Influenza A/B, and RSV RNA, Ql NAAT (03/13/2024 2:52 PM EST) [facility] Influenza A PCR NEGATIVE Negative [facility] Influenza B PCR NEGATIVE Negative [facility] Resp Syncy Virus RNA Qual PCR NEGATIVE Negative [facility] SARS COV2 PCR NEGATIVE Negative [facility] Comment:All test results mus t be [...] use by authorized laboratories.Testing performed on the [employer] GeneXpert utilizingreal-time RT-PCR.All SARS CoV2 and positive influenza A/B results arereported to [facility]. 03/13/2024 2:52 PM EST 03/13/2024 3:00 PM EST Generic External Data Provider LAB MICROBIOLOGY - GENERAL ORDERABLES Final Result Performing Organization Address [facility] Co de Phone Number [facility] [address] [place] [phone] * High Sensitivity Troponin I (03/13/2024 2:52 PM EST) [facility] TROPONIN I HIGH SENSITIVITY 6.2 <3.5 - 17.0 ng/L [facility] Comment:The Dinh high sens itivity Troponin-I results should beused in conjunction with other diagnostic information suchas ECG, clinical observations and information, and patientsymptoms to aid in the diagnosis of NE. 03/13/2024 2:52 PM EST 03/13/2024 3:00 PM EST Generic External Data Provider LAB BLOOD ORDERAB LES Final Result Performing Organization Address [facility] Phone Number [facility] [address] [place] [phone] * B Type Natriuretic Peptide (BNP) (03/13/2024 2:52 PM EST) [facility] B Type Natriuretic Peptide <10 <100 pg/mL [facility] Comment:For those patients w ho are being treated with Natrecor(nesiritide, recombinant BNP), BNP testing should beperformed at least two hours post treatment in order toensure that only endogenous levels of BNP are detected. 03/13/2024 2:52 PM EST 03/13/2024 3:00 PM EST Generic External Data Provider LAB BLOOD ORDERAB LES Final Result Performing Organization Address [facility] [address] [place] [phone] * D Dimer High Sensitivity (03/13/2024 2:52 PM EST) [facility] D Dimer High Sensitivity 349 NG/ML [facility] Comment:D-DIMER HS REFERENCE RANGENote: Our [...] ORDERAB LES Final Result Performing Organization Address [facility] Co de Phone Number [facility] [address] [place] [phone] * Prothrombin Time-INR (03/13/2024 2:52 PM EST) [facility] Prothrombin Time 11.1 10.9 - 12.4 SEC [facility] INTERNATIONAL NORM RATIO 1.0 0.9 - 1.1 [facility] Comment:INTERNATIONAL NORMAL IZED RATIO (INR) [...] 2:52 PM EST 03/13/2024 3:00 PM EST [employer] External Data Provider LAB BLOOD ORDERAB LES Final Result Performing Organization Address [facility] de Phone Number [facility] [address] [place] [phone] * (ABNORMAL) Complete Blood Count Manual Diff (03/13/2024 2:52 PM EST) [facility] White Blood Count 7.5 4.8 - 10.8 X10*3/uL [facility] Red Blood Count 4.75 4.20 - 5.50 X10*6/uL [facility] Hemoglobin 14.2 12.0 - 16.0 g/dl [facility] Hematocrit 41.9 37.0 - 47.0 % [facility] Mean Corpuscular Volume 88.2 80.0 - 98.0 fL [facility] Mean Corpuscular Hemoglobin 29.9 27.0 - 33.0 pg [facility] Mean Corpuscular HGB Conc 33.9 31.0 - 35.0 g/dl [facility] Red Cell Distribution Width 14.5 11.0 - 16.0 % [facility] Platelet Count 148(L) 160 - 400 X10*3/uL [facility] Mean Platelet Volume 9.7 9.4 - 12.3 fL [facility] NRBC Pct Auto 0.0 0.0 - 0.2 /100WBC [facility] NRBC Abs Auto 0.000 0.0 - 0.012 X10*3/uL [facility] Neutrophils % Manual 70 45 - 73 % [facility] Band Neutrophils Percent 2(L) 3 - 5 % [facility] Lymphocytes Percent Manual 26 20 - 40 % [facility] Monocytes Percent Manual 1(L) 2 - 11 % [facility] EOSINOPHILS % MANUAL 1 0 - 4 % [facility] NEUTROPHILS ABSOLUTE MANUAL 5.4 2.0 - 8.3 X10*3/uL [facility] LYMPHOCYTES ABSOLUTE MANUAL 2.0 1.2 - 4.9 X10*3/uL [facility] MONOCYTES ABSOLUTE MANUAL 0.1 0.1 - 1.2 X10*3/uL [facility] EOSINOPHILS ABSOLUTE MANUAL 0.1 0.0 - 0.4 X10*3/uL [facility] Platelet Estimate NORMAL [facility] Platelet Morphology Comment NORMAL [facility] RBC Morphology [facility] Toxic Granulation [facility] Toxic Vacuolation [facility] Dohle Bodies PRESENT [facility] 03/13/2024 2:52 PM EST 03/13/2024 3:00 PM EST us Generic External Data Provider LAB BLOOD ORDERAB LES Final Result [facility] [address] [place] [phone] * (ABNORMAL) CBC auto differential (03/13/2024 2:52 PM EST) White Blood Count 7.5 4.8 - 10.8 X10*3/uL [facility] Red Blood Count 4.75 4.20 - 5.50 X10*6/uL [facility] Hemoglobin 14.2 12.0 - 16.0 g/dl [facility] Hematocrit 41.9 37.0 - 47.0 % [facility] Mean Corpuscular Volume 88.2 80.0 - 98.0 fL [facility] Mean Corpuscular Hemoglobin 29.9 27.0 - 33.0 pg [facility] Mean Corpuscular HGB Conc 33.9 31.0 - 35.0 g/dl [facility] Red Cell Distribution Width 14.5 11.0 - 16.0 % [facility] Platelet Count 148(L) 160 - 400 X10*3/uL [facility] Mean Platelet Volume 9.7 9.4 - 12.3 fL [facility] Neutrophils Percent Auto 76.3(H) 45 - 73 % [facility] Imm Gran Pct Auto 0.3 0.0 - 0.4 % [facility] Lymphocytes Percent Auto 17.8(L) 20 - 40 % [facility] Monocytes Percent Auto 3.3 2 - 11 % [facility] Eosinophils Percent Auto 1.9 0 - 4 % [facility] Basophils Percent Auto 0.4 0 - 2 % [facility] NRBC Pct Auto 0.0 0.0 - 0.2 /100WBC [facility] Neutrophils Absolute Auto 5.8 2.0 - 8.3 x10*3/uL [facility] Imm Gran Abs Auto 0.02 0.00 - 0.03 X10*3/uL [facility] Lymphocytes Absolute Auto 1.3 1.2 - 4.9 X10*3/uL [facility] Monocytes Absolute Auto 0.3 0.1 - 1.2 X10*3/uL [facility] Eosinophils Absolute Auto 0.1 0.0 - 0.4 X10*3/uL [facility] Basophils Absolute Auto 0.0 0.0 - 0.2 X10*3/uL [facility] NRBC Abs Auto 0.000 0.0 - 0.012 X10*3/uL [facility] 03/13/2024 2:52 PM EST 03/13/2024 3:00 PM EST us Generic External Data Provider LAB BLOOD ORDERAB LES Edited Result - Final [facility] [address] [place] [phone] * XR Chest 1 View (03/13/2024 2:39 PM EST) Anatomical Region Laterality Modality Chest Radiographic Laura ging 03/13/2024 2:39 PM EST Narrative 03/13/2024 3:51 PM EST ? [facility] ?[address] ?[place] [address] ?XRay Report ? Signed ? Patient: Tory Bush ?MR#: [id number] ?? [id number] ? : 1965 ?Acct:[id number] ? Age/Sex: 58 / F ?ADM Date: 03/13/24 ? Loc: HO.ED ? Attending Dr: ? Ordering Physician: Kristi Bazan ?? Date of Service: 03/13/24 ?? Procedure(s): XR chest 1V ?? Accession Number(s): [id number] ? cc: Giana Isbell MD; Kristi Bazan ? EXAMINATION: ??XR CHEST 1 VIEW ? HISTORY: cp/sob ? COMPARISON: Comparison is made with the prior examination dated ?? 04/25/2023. ? FINDINGS: ??A single AP portable view of the chest performed at 3:22 PM ?? is submitted. A left-sided port is noted with its tip in the right ?? atrium. The lungs are expanded and clear. ??There is no pleural ?? effusion, pneumothorax, or pulmonary vascular congestion. ??The heart is ?? normal in size. ??The bones are intact. ? XR/XR chest 1V ?? IMPRESSION: ?? No acute cardiopulmonary abnormality. ? Electronically signed by: ??Leonardo Larose MD ??03/13/2024 03:49 PM EST ?? RP ? Dictated By: ?Leonardo Larose MD ? Signed By: ?<Electronically signed by Leonardo Larose MD in OV> ?03/13/24 1549 ? DD/ 1439 ? TD/TT: 03/13/24 1525 ? Customer Account Manager: ? Procedure Note Donotuseinterpreter, Image - 03/13/[address] [address] XRay Report Signed Patient: Pat Bush#: [id number] : 1965Acct:[id number] Age/Sex: 58 / FADM Date: 03/13/24 Loc: HO.ED Attending Dr: Ordering Physician: Kristi Bazan Date of Service: 03/13/24 Procedure(s): XR chest 1V Accession Number(s): [id number] cc: Giana Isbell MD; Kristi Bazan EXAMINATION: XR CHEST 1 VIEW HISTORY: cp/sob COMPARISON: Comparison is made with the prior examination dated 04/25/2023. FINDINGS: A single AP portable view of the chest performed at 3:22 PM is submitted. A left-sided port is noted with its tip in the right atrium. The lungs are expanded and clear. There is no pleural effusion, pneumothorax, or pulmonary vascular congestion. The heart is normal in size. The bones are intact. XR/XR chest 1V IMPRESSION: No acute cardiopulmonary abnormality. Electronically signed by: Leonardo Larose MD 03/13/2024 03:49 PM EST Dictated By: Leonardo Larose MD Signed By: <Electronically signed by Leonardo Larose MD in OV> 03/13/24 1549 DD/ 1439 TD/TT: 03/13/24 1525 Customer Account Manager: [facility] External Provider IMG XR PROCEDURES Final Result documented in this encounter Visit Diagnoses Not on filedocumented in this encounter Additional Health Concerns Assessment Noted Time PHQ-9 Depression Total Score: 7 07/30/19 23 10:13 AM EDT documented as of this encounter Care Teams Strip Presser Relationship Specialty Start Date End Date Giana Isbell MD [address] [place] [phone] PCP - General Internal Medicine 09/07/18 documented as of this encounter
--- OUTSIDE RECORDS SUMMARY | 2024-03-27 15:56 | XMS_ITS | Encounter Summary ---
Author Organization [employer] Address [address] [facility] [address] [place] [address] Care Team Providers Care Wallpaperer Name Role Phone Giana Isbell MD Primary Care Provider [phone] Encounter Details Date Type Department Care Team ([facility] Contact Info) Description 02/17/2024 Orders Only [facility] [address] [place] [address] Provider, MD Kathi Social History Tobacco Use [...] Description 03/28/2024 9:15 AM EST Office Visit [facility] [address] [place] [address] Giana Isbell MD [address] [place] [address] 06/11/2024 9:00 AM EDT Office Visit [facility] [address] [place] [address] Morteza, Dawna, OD [address] [place] [address] documented as of this encounter Procedures Procedure Name Priority Date/Time Associated Diagnosis Comments SURGICAL PATHOLOGY Routine 01/18/2024 9:43 AM EST documented in this encounter Results * Surgical Pathology (01/18/2024 9:43 AM EST) us Historical Provider LAB PATHOLOGY ORDERABLES Final Result documented in this encounter Visit Diagnoses Not on filedocumented in this encounter Additional Health Concerns Assessment Noted Time PHQ-9 Depression Total Score: 7 07/30/19 23 10:13 AM EDT documented as of this encounter Care Teams Wallpaperer Relationship Specialty Start Date End Date Giana Isbell MD [address] [place] [address] PCP - General Internal Medicine 09/07/18 documented as of this encounter
--- OUTSIDE RECORDS SUMMARY | 2024-03-27 15:56 | XMS_ITS | Clinical Summary ---
Author Organization [employer] Address [address] [facility] [address] [place] [address] Care Team Providers Care Vitreo Retinal Surgeon Name Role Phone Giana Isbell MD Primary Care Provider Allergies Active Allergy Reactions Criticality Noted Date Comments Acetaminophen Unknown 07/17/2022 Hydrocodone Other,Hives 12/13/2011 Other reaction(s): Altered Heart Rate Outside Source Comment: Other reaction(s): Altered Heart Rate Hydrocodone-Acetaminophe n 10/25/2023 Penicillin G Rash Low 04/12/2022 Penicillins Rash,Unknown,Hives Low 02/19/2010 Medications docusate sodium (Colace) 100 MG capsuleIndication s:Other constipation TAKE 1 CAPSULE BY MOUTH AT BEDTIME NEEDED 30 capsule 5 023 Active nortriptyline (Pamelor) 50 MG capsule Take 100 mg by mouth in the morning. 023 Active QUEtiapine (SEROquel) 100 MG tablet Take 100 mg by mouth if needed at bedtime. 023 Active sertraline (Zoloft) 100 MG tablet TAKE 1 AND 1/2 TABLETS BY MOUTH EVERY MORNING 023 Active famotidine (Pepcid) 20 MG tabletIndications :Epigastric pain Take 1 tablet (20 mg) by mouth 2 times daily. 60 tablet 11 024 2024 Active Ketotifen Fumarate (Zaditor) 0.035 % solution Administer 1 drop into affected eye(s) if needed in the morning and at bedtime (itching). 10 mL 024 Active venlafaxine (Effexor) 37.5 MG tabletIndications :Depressive disorder TAKE 1 TABLET BY MOUTH TWICE DAILY 60 tablet 5 024 Active pantoprazole (ProtoNix) 20 MG EC tablet TAKE 1 TABLET BY MOUTH EVERY MORNING NEEDED FOR HEARTBURN Active fluticasone (Flonase) 50 MCG/ACT nasal sprayIndications: Seasonal allergies INSTILL 1-2 SPRAYS IN EACH NOSTRIL ONCE DAILY NEEDED 16 g 5 024 Active D3 Super Strength 50 MCG (2000 UT) capsuleIndication s:Vitamin D deficiency TAKE 1 CAPSULE BY MOUTH EVERY DAY 30 capsule 5 024 Active capsaicin (Zostrix) 0.025 % creamIndications: Chronic pain of left knee APPLY 1 GRAM TOPICALLY TO AFFECTED AREA(S) TWICE DAILY 60 g 3 024 Active Elastic Bandages & Supports (Knee Support) miscIndications:L eft hip pain H/o knee instability. 2 each 024 Active chlorhexidine (Peridex) 0.12 % solution Swish 15 mL morning and night for 1 minute. Spit, do not swallow. Do not eat or drink for 30 minutes following use. 473 mL 024 Active hydrocortisone 0.5 % cream APPLY 1 GRAM TOPICALLY TO AFFECTED AREA(S) TWICE DAILY DIRECTED 56.8 g 1 Active Levoxyl 112 MCG tabletIndications :Acquired hypothyroidism Take 1 tablet (112 mcg) by mouth before breakfast. 30 tablet 3 024 Active dexAMETHasone (Decadron) 2 MG tablet TAKE 1 TABLET BY MOUTH TWICE DAILY START NIGHT BEFORE CHEMOTHERAPY AND 2 DAYS AFTER Active Diclofenac Sodium 1 % gel Apply 4 g topically if needed in the morning, at noon, in the evening, and at bedtime. Left hip 024 Active nystatin-triamcin olone (Mycolog II) cream APPLY TO THE AFFECTED AREA(S) TOPICALLY THREE TIMES DAILY Active ondansetron ODT (Zofran-ODT) 8 MG disintegrating tablet Take 1 tablet by mouth every 8 (eight) hours if needed for vomiting or nausea. Active polyethylene glycol, PEG, 3350 (Miralax) 17 g packet Take 17 g by mouth Once per day. Active SUMAtriptan (Imitrex) 50 MG tablet Take 1 tablet by mouth if needed each day for migraine. Active Albuterol-Budeson trell (Airsupra) 90-80 MCG/ACT aerosol Inhale 3 Inhalations Once per day. Active calcium carbonate (Os-Norberto) 1250 (500 Ca) MG chewable tablet Chew 1 tablet if needed each day for heartburn. Active lidocaine (Lidoderm) 5 % patchIndications: Neck pain Remove & discard patch within 12 hours or as directed by MD. 30 patch 3 023 2024 Discontinued(M ed list cleanup (will not trigger notification to Pharmacy)) SUMAtriptan (Imitrex) 100 MG tabletIndications :Migraine without aura and without status migrainosus, not intractable TAKE 1 TABLET BY MOUTH AT ONSET OF MIGRAINE. MAY REPEAT ONCE AFTER 2 HOURS IF NEEDED. DO NOT EXCEED 2 TABLETS IN 24 HOURS 8 tablet 5 023 2024 Discontinued(M ed list cleanup (will not trigger notification to Pharmacy)) Stool Softener/Laxative 50-8.6 MG tablet Take 2 tablets by mouth 2 times daily. 023 2024 Discontinued(M ed list cleanup (will not trigger notification to Pharmacy)) tiZANidine (Zanaflex) 2 MG tabletIndications :Muscle tension pain Take 1-2 tablets (2-4 mg) by mouth if needed at bedtime for muscle spasms. 30 tablet 024 2024 Discontinued(M ed list cleanup (will not trigger notification to Pharmacy)) ibuprofen 600 MG tablet Take 1 tablet (600 mg) by mouth every 6 (six) hours if needed for mild pain for up to 20 doses. 20 tablet 024 2024 Discontinued(M ed list cleanup (will not trigger notification to Pharmacy)) cefuroxime (Ceftin) 500 MG tablet Take 1 tablet by mouth 2 times daily. 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 Closed fracture of tooth 12/16/2023 Pre-diabetes 12/06/2023 Fractured dental jewish without loss of mat erial 12/06/2023 Transaminitis [...] diagnostic mammo and breast US, send to [facility] Cervical cancer screening 10/25/2023 Assessment & Plan [...] Encounters Date Type Department Care Team Description 03/20/2024 Patient Outreach [facility] MEDICINE [address] [place] [phone] Giana Isbell MD Transition Of Care (Tcm) (HDF scheduled and SDOH screening negative and Tobacco screening negative) 03/19/2024 Patient Outreach [address] [phone] Giana Isbell MD Transition Of Care (Tcm) (HDF unscheduled LVM ) 03/19/[address] [address] Giana Isbell MD Hospital Follow-up 03/13/2024 Orders Only GENERIC EXTERNAL DATA DEPARTMENT Provider, Generic External Data 02/24/2024 Telephone [facility] MED & PEDS [address] [place], [place] [phone] Lou Gonzalez MD 02/23/2024 Telephone [facility] [address] [place] [address] [phone] Giana Isbell MD 02/22/2024 3:30 PM EST Office Visit [facility] MED & PEDS [address] [place], [place] [phone] Giana Isbell MD Functional urinary incontinence (Primary Dx); Infiltrating ductal carcinoma of right breast (CMS/HCC) 02/22/2024 Orders Only [facility] External Provider, [facility] 02/22/2024 Travel 02/21/2024 Telephone [facility] MED & PEDS [address] [place] [address] Giana Isbell MD Chart Prep 02/17/2024 Orders Only [facility] [address] [place] [phone] ProviderKathi MD 02/16/2024 Telephone [facility] MED & PEDS [address] [place] [address] Giana Isbell MD Transition Of Care (Tcm) 02/16/2024 Orders Only GENERIC EXTERNAL DATA DEPARTMENT Provider, Generic External Data 02/15/2024 Orders Only GENERIC EXTERNAL DATA DEPARTMENT Provider, Generic External Data 02/10/2024 Orders Only [facility] External Provider, [facility] 02/10/2024 Telephone [facility] MED & PEDS [address] [place] [address] Nicole Paz, RN Results 02/06/2024 Orders Only [facility] MED & PEDS [address] [facility] [address] Giana Isbell MD Acquired hypothyroidism (Primary Dx) 02/06/2024 Orders Only GENERIC EXTERNAL DATA DEPARTMENT Provider, Generic External Data 02/02/2024 Refill [facility] MED & PEDS [address] [facility] [place] [address] Giana Isbell MD 01/18/2024 Orders Only GENERIC EXTERNAL DATA DEPARTMENT Provider, Generic External Data from Last 3 Months Immunizations Name Administration [...] Description 03/28/2024 9:15 AM EST Office Visit [facility] PEDS [address] [place], [place] [phone] Giana Isbell MD [address] [place] [address] 06/11/2024 9:00 AM EDT Office Visit [facility] OPTOMETRY [address] [place] [address] Dawna Pro, OD [address] [place] [address] Health Maintenance Due Date Last Done Comments [...] 12/05/19 22, 01/05/2021, 11/13/2020, Additional history exists Depression Screening 07/30/2023 07/29/2022, 07/30/19 23 COVID-19 Vaccine ( season) 2023 11/30/2021, 08/24/2021, 02/03/2021, Additional history exists Influenza Vaccine (#1) 2024 Postp oned from 10/09/2023 (Patient Refused) Diabetes: Hemoglobin A1C 12/05/2024 024, 10/20/2023, 08/27/2021, Additional history exists Tobacco Screening 02/21/2025 02/22/2024 SDOH Screening 03/20/2025 03/20/2024 Colonoscopy 12/01/2025 12/02/2015 Colorectal Cancer Screening 12/01/2025 Lipid Panel 08/04/2026 08/04/2021, 12/08, 10/31/2020 Dental X-Ray: Full Mouth 12/06/2026 12/06/2023, 08/2020 Cervical Cancer Screening 10/24/2028 HPV/Cotest 10/24/2028 10/25/2023 [...] TROPONIN I Routine 03/13/2024 4:05 PM EST MAGNESIUM Routine 03/13/2024 2:52 PM EST BASIC METABOLIC PANEL Routine 03/13/2024 2:52 PM EST HEPATIC FUNCTION PANEL Routine 03/13/2024 2:52 PM EST HIGH SENSITIVITY [...] QL NAAT Routine 03/13/2024 2:52 PM EST XR CHEST 1 VIEW Routine 03/13/2024 2:39 PM EST POCT URINALYSIS DIPSTICK Routine 02/22/2024 4:33 PM EST Functional urinary incontinence BI MAMMOGRAM DIAGNOSTIC TOMOSYNTHESIS LEFT Routine 02/22/2024 12:55 PM EST HEMATOXYLIN AND EOSIN STAIN Routine 02/22/2024 12:27 PM EST BI MR GUIDED BREAST BIOPSY LEFT Routine 02/22/2024 11:14 AM EST IR CVC INSERT TUNNEL W PRT/UPLANDS DIVISION DIRECTOR Routine 02/16/2024 7:46 AM EST GLUCOSE, WHOLE [...] TOMOSYNTHESIS BILATERAL Routine 01/04/2024 12:30 PM EST PANORAMIC RADIOGRAPHIC IMAGE Routine 12/06/2023 1:00 [...] Recently Relevant to Health Maintenance Results * Lactic Acid (03/13/2024 6:39 PM EST) Lactic Acid 1.0 0.5 - 2.0 mmol/L [facility] 03/13/2024 6:39 PM EST 03/13/2024 6:41 PM EST us Generic External Data Provider LAB BLOOD ORDERAB LES Final Result Performing Organization Address [facility]/State/ZIP Co de Phone Number [facility] [address] [facility] [place] [phone] * CTA Chest PE Protocal (03/13/2024 4:24 PM EST) Anatomical Region Laterality Modality Body, Chest Computed Tomogra phy 03/13/2024 4:24 PM EST Narrative 03/13/2024 5:03 PM EST ? [facility] ?[address] ?[place] [address] ? CT Scan Report ? Signed ? Patient: Tamia SánchezTory ?MR#: [id number] ?? [id number] ? : 1965 ?Acct:[id number] ? Age/Sex: 58 / F ?ADM Date: 03/13/24 ? Loc: HO.ED ? Attending Dr: ? Ordering Physician: Kristi Bazan ?? Date of Service: 03/13/24 ?? Procedure(s): CT angio chest PE protocol ?? Accession Number(s): [id number] ? cc: Giana Isbell MD; Kristi Bazan ? Report Number: ?? [id number]: Total DLP = ??202.00 mGy-cm ?? EXAMINATION: [...] DD/ 1624 ? TD/TT: 03/13/24 1642 ? Paperhanger: ? Procedure Note Donotuseinterpreter, Image - 03/13/[address] [address] [place] Scan Report Signed Patient: Pat Bush#: [id number] : 1965Acct:[id number] Age/Sex: 58 / FADM Date: 03/13/24 Loc: HO.ED Attending Dr: Ordering Physician: Kristi Bazan Date of Service: 03/13/24 Procedure(s): CT angio chest PE protocol Accession Number(s): [id number] cc: Giana Isbell MD; Kristi Bazan Report Number: [id number]: Total DLP = 202.00 mGy-cm EXAMINATION: CT [...] by: Ant Cole MD 03/13/2024 05:00 PM EST Dictated By: Ant Cole MD Signed By: <Electronically signed by Ant Cole MD in OV> 03/13/24 1700 DD/ 1624 TD/TT: 03/13/24 1642 Paperhanger: [facility] External Provider IMG CT PROCEDURES Final Result * High Sensitivity Troponin I (03/13/2024 4:05 PM EST) Only the most recent of2 resultswithin the time period is included. TROPONIN I HIGH SENSITIVITY 5.8 <3.5 - 17.0 ng/L [facility] Comment:The Dinh high sens itivity Troponin-I results should beused in conjunction with other diagnostic information suchas ECG, clinical observations and information, and patientsymptoms to aid in the diagnosis of ND. 03/13/2024 4:05 PM EST 03/13/2024 4:09 PM EST Generic External Data Provider LAB BLOOD ORDERAB LES Final Result Performing Organization Address [facility] Co de Phone Number [facility] [address] [place] [phone] * D Dimer High Sensitivity (03/13/2024 2:52 PM EST) Pathologist [facility] D Dimer High Sensitivity 349 NG/ML [facility] Comment:D-DIMER HS REFERENCE RANGENote: Our assay reports D-Dimer Units (D- DU).The cut-off value for venous thromboembolic (VTE) disease is230 ng/mL. This value has a very high negative predictivevalue when the patient has a low to moderate clinicalprobability of VTE.The upper limit of normal is 243 ng/mL. 03/13/2024 2:52 PM EST 03/13/2024 3:00 PM EST [employer] External Data Provider LAB BLOOD ORDERAB LES Final Result Performing Organization Address [facility]/ZIP Co de Phone Number [facility] [address] [place] [phone] * (ABNORMAL) Complete Blood Count Manual Diff (03/13/2024 2:52 PM EST) Pathologist [facility] White Blood Count 7.5 4.8 - 10.8 X10*3/uL [facility] Red Blood Count 4.75 4.20 - 5.50 X10*6/uL [facility] Hemoglobin 14.2 12.0 - 16.0 g/dl [facility] Hematocrit 41.9 37.0 - 47.0 % [facility] Mean Corpuscular Volume 88.2 80.0 - 98.0 fL [facility] Mean Corpuscular Hemoglobin 29.9 27.0 - 33.0 pg [facility] Mean Corpuscular HGB Conc 33.9 31.0 - 35.0 g/dl [facility] Red Cell Distribution Width 14.5 11.0 - 16.0 % [facility] Platelet Count 148(L) 160 - 400 X10*3/uL [facility] Mean Platelet Volume 9.7 9.4 - 12.3 fL [facility] NRBC Pct Auto 0.0 0.0 - 0.2 /100WBC [facility] NRBC Abs Auto 0.000 0.0 - 0.012 X10*3/uL [facility] Neutrophils % Manual 70 45 - 73 % [facility] Band Neutrophils Percent 2(L) 3 - 5 % [facility] Lymphocytes Percent Manual 26 20 - 40 % [facility] Monocytes Percent Manual 1(L) 2 - 11 % [facility] EOSINOPHILS % MANUAL 1 0 - 4 % [facility] NEUTROPHILS ABSOLUTE MANUAL 5.4 2.0 - 8.3 X10*3/uL [facility] LYMPHOCYTES ABSOLUTE MANUAL 2.0 1.2 - 4.9 X10*3/uL [facility] MONOCYTES ABSOLUTE MANUAL 0.1 0.1 - 1.2 X10*3/uL [facility] EOSINOPHILS ABSOLUTE MANUAL 0.1 0.0 - 0.4 X10*3/uL [facility] Platelet Estimate NORMAL [facility] Platelet Morphology Comment NORMAL [facility] RBC Morphology NORMAL [facility] Toxic Granulation [facility] Toxic Vacuolation [facility] Dohle Bodies PRESENT [facility] 03/13/2024 2:52 PM EST 03/13/2024 3:00 PM EST us Generic External Data Provider LAB BLOOD ORDERAB LES Final Result [facility] [address] [place] [phone] [phone] * SARS-CoV-2 RNA, Influenza A/B, and RSV RNA, Ql NAAT (03/13/2024 2:52 PM EST) Influenza A PCR NEGATIVE Negative [facility] Influenza B PCR NEGATIVE Negative [facility] Resp Syncy Virus RNA Qual PCR NEGATIVE Negative [facility] SARS COV2 PCR NEGATIVE Negative [facility] Comment:All test results mus t [...] use by authorized laboratories.Testing performed on the [employer] GeneXpert utilizingreal-time RT-PCR.All SARS CoV2 and positive influenza A/B results arereported to [facility]. 03/13/2024 2:52 PM EST 03/13/2024 3:00 PM EST us Generic External Data Provider LAB MICROBIOLOGY - GENERAL ORDERABLES Final Result [facility] [address] [place] [phone] * (ABNORMAL) CBC auto differential (03/13/2024 2:52 PM EST) Only the most recent of2 resultswithin the time period is included. White Blood Count 7.5 4.8 - 10.8 X10*3/uL [facility] Red Blood Count 4.75 4.20 - 5.50 X10*6/uL [facility] Hemoglobin 14.2 12.0 - 16.0 g/dl [facility] Hematocrit 41.9 37.0 - 47.0 % [facility] Mean Corpuscular Volume 88.2 80.0 - 98.0 fL [facility] Mean Corpuscular Hemoglobin 29.9 27.0 - 33.0 pg [facility] Mean Corpuscular HGB Conc 33.9 31.0 - 35.0 g/dl [facility] Red Cell Distribution Width 14.5 11.0 - 16.0 % [facility] Platelet Count 148(L) 160 - 400 X10*3/uL [facility] Mean Platelet Volume 9.7 9.4 - 12.3 fL [facility] Neutrophils Percent Auto 76.3(H) 45 - 73 % [facility] Imm Gran Pct Auto 0.3 0.0 - 0.4 % [facility] Lymphocytes Percent Auto 17.8(L) 20 - 40 % [facility] Monocytes Percent Auto 3.3 2 - 11 % [facility] Eosinophils Percent Auto 1.9 0 - 4 % [facility] Basophils Percent Auto 0.4 0 - 2 % [facility] NRBC Pct Auto 0.0 0.0 - 0.2 /100WBC [facility] Neutrophils Absolute Auto 5.8 2.0 - 8.3 x10*3/uL [facility] Imm Gran Abs Auto 0.02 0.00 - 0.03 X10*3/uL [facility] Lymphocytes Absolute Auto 1.3 1.2 - 4.9 X10*3/uL [facility] Monocytes Absolute Auto 0.3 0.1 - 1.2 X10*3/uL [facility] Eosinophils Absolute Auto 0.1 0.0 - 0.4 X10*3/uL [facility] Basophils Absolute Auto 0.0 0.0 - 0.2 X10*3/uL [facility] NRBC Abs Auto 0.000 0.0 - 0.012 X10*3/uL [facility] 03/13/2024 2:52 PM EST 03/13/2024 3:00 PM EST us Generic External Data Provider LAB BLOOD ORDERAB LES Edited Result - Final [facility] [address] [place] [phone] * Prothrombin Time-INR (03/13/2024 2:52 PM EST) Prothrombin Time 11.1 10.9 - 12.4 SEC [facility] INTERNATIONAL NORM RATIO 1.0 0.9 - 1.1 [facility] Comment:INTERNATIONAL NORMAL IZED RATIO (INR) REFERENCE [...] ORDERAB LES Final Result Performing Organization Address [facility] de Phone Number [facility] [address] [place] [phone] * B Type Natriuretic Peptide (BNP) (03/13/2024 2:52 PM EST) B Type Natriuretic Peptide <10 <100 pg/mL [facility] Comment:For those patients w ho are being treated with Natrecor(nesiritide, recombinant BNP), BNP testing should beperformed at least two hours post treatment in order toensure that only endogenous levels of BNP are detected. 03/13/2024 2:52 PM EST 03/13/2024 3:00 PM EST Generic External Data Provider LAB BLOOD ORDERAB LES Final Result Performing Organization Address [facility] de Phone Number [facility] [address] [place] [phone] * Magnesium (03/13/2024 2:52 PM EST) Only the most recent of2 resultswithin the time period is included. Magnesium 1.9 1.6 - 2.6 mg/dL [facility] 03/13/2024 2:52 PM EST 03/13/2024 3:00 PM EST us Generic External Data Provider LAB BLOOD ORDERAB LES Final Result Performing Organization Address [facility] Co de Phone Number [facility] [address] [place] [phone] * (ABNORMAL) Hepatic Function Panel (03/13/2024 2:52 PM EST) Bilirubin, Total 0.5 0.0 - 1.0 mg/dL [facility] Bilirubin, Direct 0.1 0.0 - 0.5 mg/dL [facility] Aspartate Amino Transferase 33(H) 5 - 31 U/L [facility] Comment:Slight Hemolysis.Int erpret result with caution. Alanine Aminotransferase 38(H) 0 - 31 U/L [facility] Total Protein 6.7 6.5 - 8.0 g/dL [facility] Albumin Level 3.7 3.5 - 5.0 g/dL [facility] Alkaline Phosphatase 161(H) 39 - 117 U/L [facility] 03/13/2024 2:52 PM EST 03/13/2024 3:00 PM EST us Generic External Data Provider LAB BLOOD ORDERAB LES Final Result Performing Organization Address [facility] de Phone Number [facility] [address] [place] [phone] * (ABNORMAL) Basic Metabolic Panel (03/13/2024 2:52 PM EST) Sodium 140 135 - 145 mmol/L [facility] Potassium 4.0 3.3 - 5.1 mmol/L [facility] Comment:Slight Hemolysis.Int erpret result with caution. Chloride 109(H) 96 - 108 mmol/L [facility] Carbon Dioxide 22 22 - 29 mmol/L [facility] Anion Gap 13 12 - 20 [facility] Urea Nitrogen (BUN) 20(H) 9 - 16 mg/dL [facility] Creatinine, Serum 0.93 0.5 - 1.4 mg/dL [facility] Creatinine Clr Calc Pharmacy 54.5 [facility] Comment:Provided height and weight: 160.02 cm,58.967 kg.eGFR (calculated from the MDRD study equation) and eCrCl(calculated from the Cockcroft-Gault equation) are based ondifferent parameters and may not yield comparable results.If eCrCl result is absurd, please check patient'sheight/weight. Estimated Glomerular Filt Rate >60 [facility] Comment:Chronic Kidney Disea se: Estimated GFR < 60 mL/min/[id number] Kidney Disease: Estimated GFR < 15 mL/min/1.73m2 Glucose 123(H) 60 - 115 mg/dL [facility] Calcium 9.0 8.4 - 10.2 mg/dL [facility] 03/13/2024 2:52 PM EST 03/13/2024 3:00 PM EST us Generic External Data Provider LAB BLOOD ORDERAB LES Final Result [facility] [address] [place] [phone] * XR Chest 1 View (03/13/2024 2:39 PM EST) Anatomical Region Laterality Modality Chest Radiographic Laura ging 03/13/2024 2:3 9 PM EST Narrative 03/13/2024 3:51 PM EST ? [facility] ?[address] ?[place] [address] ?XRay Report ? Signed ? Patient: Tory Bush ?MR#: [id number] ?? [id number] ? : 1965 ?Acct:[id number] ? Age/Sex: 58 / F ?ADM Date: 02/04/25 ? Loc: HO.ED ? Attending Dr: ? Ordering Physician: Kristi Bazan ?? Date of Service: 03/13/24 ?? Procedure(s): XR chest 1V ?? Accession Number(s): [id number] ? cc: Giana Isbell MD; Kristi Bazan [...] ??Leonardo Larose MD ??03/13/2024 03:49 PM EST ? Dictated By: ?Leonardo Larose MD ? Signed By: ?<Electronically signed by Leonardo Larose MD in OV> ?03/13/24 1549 ? DD/ 1439 ? TD/TT: 03/13/24 1525 ? Paperhanger: ? Procedure Note Trish, Image - 03/13/2024 [place] [address] XRay Report Signed Patient: Pat Bush#: [id number] : 1965Acct:[id number] Age/Sex: 58 / FADM Date: 03/13/24 Loc: HO.ED Attending Dr: Ordering Physician: Kristi Bazan Date of Service: 03/13/24 Procedure(s): XR chest 1V Accession Number(s): [id number] cc: Giana Isbell MD; Kristi Bazan EXAMINATION: [...] Leonardo Larose MD 03/13/2024 03:49 PM EST RP Dictated By: Leonardo Larose MD Signed By: <Electronically signed by Leonardo Larose MD in OV> 03/13/24 1549 DD/ 1439 TD/TT: 03/13/24 1525 Paperhanger: [facility] External Provider IMG XR PROCEDURES Final Result * (ABNORMAL) POCT Urinalysis (02/22/2024 4:33 PM [...] Media Lot # [id number] Lot# Expiration Date 3,025 Urine 02/22/2024 4:33 PM EST Giana Isbell MD POINT OF CARE TEST ENTER/ED IT ORDERABLES Final Result * BI Mammogram Diagnostic Tomosynthesis Left (02/22/2024 12:55 PM EST) Anatomical Region Laterality Modality Breast Left Mammography 02/22/2024 12:5 5 PM EST Narrative 02/23/2024 9:49 AM EST ? [facility] ?[address] ?[place] [address] ? Mammography Report ? Signed with Addenda ? Patient: Tamia Sánchez,Tory ?MR#: [id number] ?? [id number] ? : 1965 ?Acct:[id number] ? Age/Sex: 58 / F ?ADM Date: 01/15/25 ? Loc: HO.MRI ? Attending Dr: Rhona Badillo MD ? Ordering Physician: Rhona Badillo MD ?Results: 1Negati ?? ve ? Date of Service: 02/22/24 ?Follow Up: 1 Year From Orig ?? inal Mammogram ? Procedure(s): MM tomosynthesis diagnostic LT ?? Accession Number(s): [id number] ? cc: Giana Isbell MD; Rhona Badillo [...] 1% lidocaine with epinephrine. ? NEEDLE: ?? Sipera Systemsc 9-gauge vacuum assisted core biopsy device. ? [...] DD/ 1255 ? TD/TT: 02/22/24 1305 ? Paperhanger: ? Procedure Note Eliud Chambers - 03/02/2024 [address] [place] [address] Mammography Report Signed with Addenda Patient: Pat Bush#: [id number] : 1965Acct:[id number] Age/Sex: 58 / FADM Date: 02/22/24 Loc: HO.MRI Attending Dr: Rhona Badillo MD Ordering Physician: Rhona Badillo MDResults: 1Negati ve Date of Service: 02/22/24Follow Up: 1 Year From Orig ina Mammogram Procedure(s): MM tomosynthesis diagnostic LT Accession Number(s): [id number] cc: Giana Isbell MD; Rhona Badillo MD [...] without and with use of gadolinium contrast. AquarisPLUS Int introducer localization system is used with grid. LESION: Left retroareolar lower outer breast anterior depth.. LOCAL ANESTHESIA: 6 mL 1% lidocaine; 4 mL 1% lidocaine with epinephrine. NEEDLE: IPLocks 9-gauge vacuum assisted core biopsy device. APPROACH: [...] 02/23/24 0947 DD/ 1255 TD/TT: 02/22/24 1305 Paperhanger: [facility] External Provider IMG BI PROCEDURES Edited Result - Final * Hematoxylin and Eosin Stain (02/22/2024 12:27 PM EST) Only the most recent of2 resultswithin the time period is included. 02/22/2024 12:2 7 PM EST 02/22/2024 1:32 PM EST [facility] - 02/24/2024 2:51 PM EST ----- ------- Name: Tory Bush ?Age/Sex: 58/F ? : 1965 Unit#: [id number] ?? Attend Dr: Rhona Badillo MD ?Re02/22/24 ?Status: DEP REF ? Location: HO.MRI ?Disch: ? ----- ------- SPEC : [id number] ?RECD: 02/22/24-1331 ? STATUS: ??SOUT ? REQ NUM: [id number] ? TEQUILA: 02/22/24-1227 ? SUBM DR: Carissa [...] Copies To: ?? Giana Isbell MD ?? [facility] ?? [address] ?? [place] [address] ?? [phone] ?? Rhona Badillo MD ?? [facility] ?? [address] ?? [place] [address] ?? [phone] ? CONTINUED ON NEXT PAGE ----- ------- Name: Tory Bush ?Age/Sex: 58/F ? : 1965 Unit#: [id number] ?? Attend Dr: Rhona Badillo MD ?Re02/22/24 ?Status: DEP REF ? Location: HO.MRI ?Disch: ? ----- ------- SPEC : [id number] ?RECD: 02/22/24-1331 ? STATUS: ??SOUT ? REQ NUM: [id number] ? TEQUILA: 02/22/24-7 ? SUBM DR: Carissa Raza DO ? ENTERED: ??02/22/24-1 ?SP TYPE: Surgical ? OTHR DR: Giana Isbell MD ?Rhona Badillo MD ORDERED: ??HE Stain/2, Gross Micro L4 ? COMMENTS: As per the specimen requisition slip the specimen is ?collected at 1227 and placed in formalin at 1240. Copies To: ??(Continued) ?? Carissa Raza DO ?? [address] ?? [place] [address] ?? [phone] ----- ------- Signed (signature on file) Osman Ríos MD 02/24/24 1451 ? ----- ------- ? END OF REPORT ? us Generic External Data Provider LAB BLOOD ORDERAB LES Final Result [facility] [address] [place] [address] [phone] * BI MR Guided Breast Biopsy Left (02/22/2024 11:14 AM EST) Anatomical Region Laterality Modality Breast Left Magnetic Resonan ce 02/22/2024 11:1 4 AM EST Narrative 02/23/2024 9:50 AM EST ? [facility] ?[address] ?[place] [address] ? Magnetic Resonance Report ? Signed with Addenda ? Patient: Tamia Sánchez,Tory ?MR#: [id number] ?? [id number] ? : 1965 ?Acct:[id number] ? Age/Sex: 58 / F ?ADM Date: 01/15/25 ? Loc: HO.MRI ? Attending Dr: Rhona Badillo MD ? Ordering Physician: Rhona Badillo MD ?? Date of Service: 02/22/24 ?? Procedure(s): MR guided breast biopsy LT ?? Accession Number(s): [id number] ? cc: Giana Isbell MD; Rhona Badillo [...] 1% lidocaine with epinephrine. ? NEEDLE: ?? SurCompuPayc 9-gauge vacuum assisted core biopsy device. ? [...] DD/ 1114 ? TD/TT: 02/22/24 1230 ? Paperhanger: ? Procedure Note Trish, Eliud - 03/02/2024 [address] [address] Magnetic Resonance Report Signed with Fani Patient: Pat Bush#: [id number] : 1965Acct:[id number] Age/Sex: 58 / FADM Date: 02/22/24 Loc: .MRI Attending Dr: Rhona Badillo MD Ordering Physician: Rhona Badillo MD Date of Service: 02/22/24 Procedure(s): MR guided breast biopsy LT Accession Number(s): [id number] cc: Giana Isbell MD; Rhona Badillo MD ADDENDUM ADDENDUM #1 ADDENDUM: Left breast MRI core needle biopsy: Small intraductal papilloma formation. No atypia or malignancy identified. Intraductal papilloma is high risk and concordant. Recommend breast surgical consultation for possible excision and further management. Results and recommendations communicated to Dr. Schreiber patients breast surgeon and Dr Baidllo. Electronically signed by: Carissa Raza DO 03/02/2024 [...] without and with use of gadolinium contrast. AquarisPLUS Int introducer localization system is used with grid. LESION: Left retroareolar lower outer breast anterior depth.. LOCAL ANESTHESIA: 6 mL 1% lidocaine; 4 mL 1% lidocaine with epinephrine. NEEDLE: Sipera Systemsc 9-gauge vacuum assisted core biopsy device. APPROACH: [...] Raza DO in OV> 02/23/24 0947 DD/ 111 TD/TT: 02/22/24 1230 Paperhanger: us [facility] External Provider IMG MRI PROCEDURES Edited Result - Final * IR cvc insert tunnel w prt/yarn sorter (02/16/2024 7:46 AM EST) Anatomical Region Laterality Modality X-Ray Angiograph y 02/16/2024 7:46 AM EST Narrative 02/24/2024 2:22 PM EST ? [facility] ?[address] ?[place] [address] ?Interventional Radiology Rpt ? Signed ? Patient: Tamia Coyneca,Tory ?MR#: [id number] ?? [id number] ? : 1965 ?Acct:[id number] ? Age/Sex: 58 / F ?ADM Date: 02/16/24 ? Loc: HO.SSS ? Attending Dr: Rhona Badillo MD ? Ordering Physician: Rhona Badillo MD ?? Date of Service: 02/16/24 ?? Procedure(s): IR cvc insert tunnel w prt/yarn sorter ?? Accession Number(s): [id number] ? cc: Giana Isbell MD; Rhona Badillo [...] records. ?? 2. Placement of a 6.6 Kuwaiti single-lumen power port. ? CLINICIAN: ?? Fortino [...] site. Through the peel-away sheath, the 6.6 Kuwaiti port catheter was ?? placed. The catheter [...] vein ?? 2. Placement of a 6.6 Kuwaiti single lumen power port. ?? 3. Port flushes and aspirates very well with a 10 mL syringe. No ?? pneumothorax. ? IR/IR cvc insert tunnel w prt/yarn sorter ?? IMPRESSION: ?? Placement of a 6.6 Kuwaiti single-lumen power port. ? PLAN: ?? - The patient will be discharged home when stable by sedation protocol. ?? - Port may be used immediately. ? This procedure was performed by Fortino Muniz PA-C, and directly ?? supervised by Dr. Pan ? Electronically signed by: ??Jose R Pan MD ??02/24/2024 02:18 PM EST RP ? Dictated By: ?Flavio,Fortino MALDONADO ? Signed By: ?<Electronically signed by Fortino Muniz in OV> ? 02/24/24 1418 ?<Electronically signed by Jose R Pan MD in OV> ? 02/24/24 1421 ? DD/ 0746 ? TD/TT: 02/16/24 0934 ? Paperhanger: ? Procedure Note Donhernanter, Image - 02/24/2024 [address] [address] Interventional Radiology Rpt Signed Patient: Pat Bush#: [id number] : 1965Acct:[id number] Age/Sex: 58 / FADM Date: 02/16/24 Loc: HO.[facility] Attending Dr: Rhona Badillo MD Ordering Physician: Rhona Badillo MD Date of Service: 02/16/24 Procedure(s): IR cvc insert tunnel w prt/yarn sorter Accession Number(s): [id number] cc: Giana Isbell MD; Rhona Badillo MD CLINICAL HISTORY: Right breast cancer. The patient presents to interventional radiology for placement of a port for chemotherapy. PROCEDURES: 1. Real-time ultrasound-guided access into the left internal jugular vein after documentation of selected vessel patency, and permanent image storing in the patient records. 2. Placement of a 6.6 Kuwaiti single-lumen power port. CLINICIAN: Fortino Muniz PA-C [...] site. Through the peel-away sheath, the 6.6 Kuwaiti port catheter was placed. The catheter position [...] jugular vein 2. Placement of a 6.6 Kuwaiti single lumen power port. 3. Port flushes and aspirates very well with a 10 mL syringe. No pneumothorax. IR/IR cvc insert tunnel w prt/yarn sorter IMPRESSION: Placement of a 6.6 Kuwaiti single-lumen power port. PLAN: - The patient will be discharged home when stable by sedation protocol. - Port may be used immediately. This procedure was performed by Fortino Muniz PA-C, and directly supervised by Dr. Pan Electronically signed by: Jose R Pan MD 02/24/2024 02:18 PM [facility] Dictated By: Fortino Muniz Signed By: <Electronically signed by Fortino Muniz in OV> 02/24/24 1418 <Electronically signed by Jose R Pan MD in OV> 02/24/24 1421 DD/ 0746 TD/TT: 02/16/24 0934 Paperhanger: us [facility] External Provider IMG IR PROCEDURES Edited Result - Final * (ABNORMAL) Glucose, Whole Blood (02/16/2024 7:06 AM EST) Glucose, Whole Blood 142(H) 60 - 115 mg/dL [facility] Comment:METER #: [id number] 02/16/2024 7:06 AM EST 02/16/2024 7:11 AM EST Generic External Data Provider LAB BLOOD ORDERAB LES Final Result [facility] [address] [place] [phone] * (ABNORMAL) Comprehensive Metabolic Panel (02/15/2024 2:03 PM EST) Sodium 145 135 - 145 mmol/L [facility] Potassium 4.2 3.3 - 5.1 mmol/L [facility] Chloride 109(H) 96 - 108 mmol/L [facility] Carbon Dioxide 28 22 - 29 mmol/L [facility] Anion Gap 12 12 - 20 [facility] Urea Nitrogen (BUN) 14 9 - 16 mg/dL [facility] Creatinine, Serum 0.89 0.5 - 1.4 mg/dL [facility] Estimated Glomerular Filt Rate >60 [facility] Comment:Chronic Kidney Disea se: Estimated GFR < 60 mL/min/1.38w4Kvycpc Kidney Disease: Estimated GFR < 15 mL/min/1.73m2 Glucose 94 60 - 115 mg/dL [facility] Calcium 8.9 8.4 - 10.2 mg/dL [facility] Bilirubin, Total 0.4 0.0 - 1.0 mg/dL [facility] Aspartate Amino Transferase 36(H) 5 - 31 U/L [facility] Alanine Aminotransferase 33(H) 0 - 31 U/L [facility] Total Protein 7.1 6.5 - 8.0 g/dL [facility] Albumin Level 4.2 3.5 - 5.0 g/dL [facility] Alkaline Phosphatase 122(H) 39 - 117 U/L [facility] 02/15/2024 2:03 PM EST 02/15/2024 2:03 PM EST us Generic External Data Provider LAB BLOOD ORDERAB LES Final Result [facility] [address] [place] [address] [phone] * BI US Breast Limited Left (02/10/2024 12:15 PM EST) Anatomical Region Laterality Modality Breast Left Ultrasound 02/10/2024 12:1 5 PM EST Narrative 02/10/2024 3:42 PM EST ? [facility] [place] ? [address] ?[place] [address] ? Ultrasound Report ? Signed ? Patient: Tory Bush ?MR#: [id number] ?? [id number] ? : 1965 ?Acct:[id number] ? Age/Sex: 58 / F ?ADM Date: 02/10/24 ? Loc: HO.MAMMO ? Attending Dr: Rhona Badillo MD ? Ordering Physician: Rhona Badillo MD ?? Date of Service: 02/10/24 ?? Procedure(s): US breast LT limited mamm only ?? Accession Number(s): [id number] ? cc: Giana Isbell MD; Rhona Badillo [...] their next mammogram. ? Electronically signed by: ??Carisas Raza DO ??02/10/2024 03:39 PM EST ? Dictated By: ?Carissa Raza DO ? Signed By: ?<Electronically signed by Carissa Tyminski, DO in OV> ? 02/10/24 1539 ? DD/ 1215 ? TD/TT: 02/10/24 1231 ? Paperhanger: ? Procedure Note Trish, Image - 02/10/2024 [place] [facility] [address] [place] [address] [place] [address] Ultrasound Report Signed Patient: Pat Bush#: [id number] : 1965Acct:[id number] Age/Sex: 58 / FADM Date: 02/10/24 Loc: HO.MAMMO Attending Dr: Rhona Badillo MD Ordering Physician: Rhona Badillo MD Date of Service: 02/10/24 Procedure(s): US breast LT limited mamm only Accession Number(s): [id number] cc: Giana Isbell MD; Rhona Badillo MD [...] 02/10/24 1539 DD/ 1215 TD/TT: 02/10/24 1231 Paperhanger: us [facility] External Provider IMG US PROCEDURES Edited Result - Final * (ABNORMAL) TSH W/Reflex to FT4 (02/06/2024 10:45 AM EST) TSH reflex Free T4 10.06(H) 0.32 - 4.0 uIU/mL [facility] Blood Venous blood specimen / Unknown 02/06/2024 10:45 AM EST 02/06/2024 10:45 AM EST us Giana Isbell MD LAB BLOOD ORDERABLES Final Result Performing Organization Address [facility] de Phone Number [facility] [address] [place] [address] [phone] * (ABNORMAL) T4, Free (02/06/2024 10:45 AM EST) Free T4 (Free Thyroxine) 0.68(L) 0.71 - 1.85 ng/dL [facility] 02/06/2024 10:4 5 AM EST 02/06/2024 10:45 AM EST us Generic External Data Provider LAB BLOOD ORDERAB LES Final Result Performing Organization Address [facility] Phone Number [facility] [address] [place] [address] [phone] * BI MR Breast w and w/o Contrast Bilateral (02/06/2024 9:33 AM EST) Anatomical Region Laterality Modality Breast Bilateral Magnetic Resonan ce 02/06/2024 9:33 AM EST Narrative 02/10/2024 3:39 PM EST ? [facility] ?[address] ?[place] [address] ? Magnetic Resonance Report ? Signed with Addenda ? Patient: Tory Bush ?MR#: [id number] ?? [id number] ? : 1965 ?Acct:[id number] ? Age/Sex: 58 / F ?ADM Date: 02/05/24 ? Loc: HO.MRI ? Attending Dr: Pardeep Marcos MD ? Ordering Physician: Pardeep Marcos MD ?? Date of Service: 02/06/24 ?? Procedure(s): MR breast BI wo/w con ?? Accession Number(s): [id number] ? cc: Giana Isbell MD; Pardeep Marcos [...] by Carissa Raza, DO in OV> ? 02/13/24 1035 ?? [...] DD/ 0933 ? TD/TT: 02/06/24 1016 ? Paperhanger: ? Procedure Note Donotshirleneinterpreter, Image - 02/13/[address] [address] Magnetic Resonance Report Signed with Fani Patient: Pat Bush#: [id number] : 1965Acct:[id number] Age/Sex: 58 / FADM Date: 02/06/24 Loc: HO.MRI Attending Dr: Pardeep Marcos MD Ordering Physician: Pardeep Marcos MD Date of Service: 02/06/24 Procedure(s): MR breast BI wo/w con Accession Number(s): [id number] cc: Giana Isbell MD; Pardeep Marcos MD [...] Carissa Raza DO 02/10/2024 03:36 PM EST Dictated By: Carissa Raza DO Signed By: <Electronically signed by Carissa Raza DO in OV> 02/10/24 1536 DD/ 0933 TD/TT: 02/06/24 1016 Paperhanger: [facility] External Provider IMG MRI PROCEDURES Edited Result - Final * Surgical Pathology (01/18/2024 9:43 AM EST) Historical Provider MD LAB PATHOLOGY ORDERABLES Final Result * US BREAST NDL CORE BIOPSY RT (01/18/2024 8:00 AM EST) Anatomical Region Laterality Modality Abdomen Ultrasound 01/18/2024 8:00 AM EST Narrative 01/18/2024 9:40 AM EST ? [facility] [place] ? [address] ?[place] [address] ? Ultrasound Report ? Signed with Addenda ? Patient: Tory Bush ?MR#: [id number] ?? [id number] ? : 1965 ?Acct:[id number] ? Age/Sex: 58 / F ?ADM Date: 01/18/24 ? Loc: HO.MAMMO ? Attending Dr: Pardeep Marcos MD ? Ordering Physician: Pardeep Marcos MD ?? Date of Service: 01/18/24 ?? Procedure(s): US breast ndl core biopsy RT ?? Accession Number(s): [id number] ? cc: Giana Isbell MD; Pardeep Marcos [...] DD/ 0800 ? TD/TT: 01/18/24 0835 ? Paperhanger: ? Procedure Note Donotshirleneinterpreter, Image - 01/25/2024 [place] [facility] [address] [place] [address] Ultrasound Report Signed with Addenda Patient: Pat Bush#: [id number] : 1965Acct:[id number] Age/Sex: 58 / FADM Date: 01/18/24 Loc: HO.MAMMO Attending Dr: Pardeep Marcos MD Ordering Physician: Pardeep Marcos MD Date of Service: 01/18/24 Procedure(s): US breast ndl core biopsy RT Accession Number(s): [id number] cc: Giana Isbell MD; Pardeep Marcos MD [...] <Electronically signed by DO Shira in OV> 01/25/24853 Addendum Cosigned By: DD/ /01/800 TD/TT: 01/18/2412/31/834 [...] OV> 01/18/2437 DD/ 9 TD/TT: 01/18/24 0835 Paperhanger: [facility] External Provider IMG US PROCEDURES Edited Result - Final * BI Mammogram Diagnostic Tomosynthesis Right (01/18/2024 8:00 AM EST) Anatomical Region Laterality Modality Breast Right Mammography 01/18/2024 8:00 AM EST Narrative 01/18/2024 9:40 AM EST ? [facility] ? [address] ?[place] [address] ? Mammography Report ? Signed with Addenda ? Patient: Tamia Sánchez,Tory ?MR#: [id number] ?? [id number] ? : 1965 ?Acct:[id number] ? Age/Sex: 58 / F ?ADM Date: 01/18/24 ? Loc: HO.MAMMO ? Attending Dr: Pardeep Marcos MD ? Ordering Physician: Pardeep Marcos MD ?Results: ? Date of Service: 01/18/24 ?Follow Up: ? Procedure(s): MM tomosynthesis diagnostic RT ?? Accession Number(s): [id number] ? cc: Giana Isbell MD; Pardeep Marcos [...] DD/ 0800 ? TD/TT: 01/18/24 0835 ? Paperhanger: ? Procedure Note Trish, Image - 01/25/2024 [place] [facility] [place] [address] Mammography Report Signed with Addenda Patient: Pat Bush#: [id number] : 1965Acct:[id number] Age/Sex: 58 / FADM Date: 01/18/24 Loc: HO.MAMMO Attending Dr: Pardeep Marcos MD Ordering Physician: Pardeep Marcosesults: Date of Service: 01/18/24Follow Up: Procedure(s): MM tomosynthesis diagnostic RT Accession Number(s): [id number] cc: Giana Isbell MD; Pardeep Marcos MD [...] by: Carissa Raza DO 01/25/2024 08:54 AM [facility] Addendum Dictated By: Carissa Raza DO Addendum [...] 01/18/24 0937 DD/ 0800 TD/TT: 01/18/24 0835 Paperhanger: [facility] External Provider IMG BI PROCEDURES Edited Result - Final * BI US Breast Limited Right (01/04/2024 1:00 PM EST) Anatomical Region Laterality Modality Breast Right Ultrasound 01/04/2024 1:00 PM EST Narrative 01/04/2024 1:38 PM EST ? [facility] [place] ? [address] ?[place] [address] ? Ultrasound Report ? Signed ? Patient: Tamia Sánchez,Tory ?MR#: [id number] ?? [id number] ? : 1965 ?Acct:[id number] ? Age/Sex: 58 / F ?ADM Date: 11/27/24 ? Loc: HO.MAMMO ? Attending Dr: Lou Gonzalez MD ? Ordering Physician: Lou Gonzalez MD ?? Date of Service: 01/04/24 ?? Procedure(s): US breast RT limited mamm only ?? Accession Number(s): [id number] ? cc: Lou Gonzalez MD ? EXAMINATION: [...] ? RECOMMENDATION: ?? 1 year F/U (accession [id number]), Biopsy recommended (accession ?? [id number]) ? This patient's information was entered into a reminder system with a ?? target due date for their next mammogram. ? Electronically signed by: ??Carissa Raza DO ??01/04/2024 01:35 PM EST ?? RP ? Dictated By: ?Carissa Raza DO ? Signed By: ?<Electronically signed by Carissa Raza, DO in OV> ? 01/04/24 1335 ? DD/ 1300 ? TD/TT: 01/04/24 1315 ? Paperhanger: ? Procedure Note Donotshirleneinterpreter, Image - 01/08/2024 [facility] [place] [address] Ultrasound Report Signed Patient: Pat Bush#: [id number] : 1965Acct:[id number] Age/Sex: 58 / FADM Date: 01/04/24 Loc: HO.MAMMO Attending Dr: Lou Gonzalez MD Ordering Physician: Lou Gonzalez MD Date of Service: 01/04/24 Procedure(s): US breast RT limited mamm only Accession Number(s): [id number] cc: Lou Gonzalez MD EXAMINATION: MM DIAGNOSTIC [...] Suspicious finding RECOMMENDATION: 1 year F/U (accession [id number]), Biopsy recommended (accession [id number]) This patient's information was entered into a reminder system with a target due date for their next mammogram. Electronically signed by: Carissa Raza DO 01/04/2024 01:35 PM EST Dictated By: Carissa Raza DO Signed By: <Electronically signed by Carissa Raza DO in OV> 01/04/24 1335 DD/ 1300 TD/TT: 01/04/24 1315 Paperhanger: us Lou Gonzalez MD [facility] PROCEDURES Edited Resu lt - Final * BI Mammogram Diagnostic Tomosynthesis Bilateral (01/04/2024 12:30 PM EST) Anatomical Region Laterality Modality Breast Bilateral Mammography 01/04/2024 12:3 0 PM EST Narrative 01/04/2024 1:38 PM EST ? [facility] [place] ? [address] ?[place] [address] ? Mammography Report ? Signed ? Patient: Tamia SánchezTory kennedy ?MR#: [id number] ?? [id number] ? : 1965 ?Acct:[id number] ? Age/Sex: 58 / F ?ADM Date: 11/27/24 ? Loc: HO.MAMMO ? Attending Dr: Lou Gonzalez MD ? Ordering Physician: Lou Gonzalez MD ?Results: 4Susp ?? icious Finding ? Date of Service: 01/04/24 ?Follow Up: 1 Year From Orig ?? inal Mammogram ? Procedure(s): MM tomosynthesis diagnostic BI ?? Accession Number(s): [id number] ? cc: Lou Gonzalez MD ? EXAMINATION: [...] ? RECOMMENDATION: ?? 1 year F/U (accession [id number]), Biopsy recommended (accession ?? [id number]) ? This patient's information was entered into a reminder system with a ?? target due date for their next mammogram. ? Electronically signed by: ??Carissa Raza DO ??01/04/2024 01:35 PM EST ? Dictated By: ?Carissa Raza DO ? Signed By: ?<Electronically signed by Carissa Raza, DO in OV> ? 01/04/24 1335 ? DD/ 1230 ? TD/TT: 01/04/24 1249 ? Paperhanger: ? Procedure Note Donhernanter, Image - [facility] [address] [place] [address] Mammography Report Signed Patient: Pat Bush#: [id number] : 1965Acct:[id number] Age/Sex: 58 / FADM Date: 01/04/24 Loc: HO.MAMMO Attending Dr: Lou Gonazlez MD Ordering Physician: Lou Gonzalez MDResults: 4Susp icious Finding Date of Service: 01/04/24Follow Up: 1 Year From Orig inal Mammogram Procedure(s): MM tomosynthesis diagnostic BI Accession Number(s): [id number] cc: Lou Gonzalez MD EXAMINATION: MM DIAGNOSTIC [...] Suspicious finding RECOMMENDATION: 1 year F/U (accession [id number]), Biopsy recommended (accession [id number]) This patient's information was entered into a reminder system with a target due date for their next mammogram. Electronically signed by: Carissa Raza DO 01/04/2024 01:35 PM [facility] Dictated By: Carissa Raza DO Signed By: <Electronically signed by Carissa Raza DO in OV> 01/04/24 1335 DD/ 1230 TD/TT: 01/04/24 1249 Paperhanger: us Lou Gonzalez MD IMG BI PROCEDURES Edited Resu lt - Final * (ABNORMAL) POCT HGB A1C (12/06/2023 11:41 AM EDT) Hemoglobin A1C 6.2(A) 4.0 - 6.0 % QC Media Lot # [id number] Lot# Expiration Date Blood 12/06/2023 11:4 1 AM EDT us Giana Isbell MD POINT OF CARE TEST ENTER/ED IT ORDERABLES Final Result * ThinPrep Imaging Pap and HPV mRNA E6/E7 (10/25/2023 12:00 AM EDT) HPV nRNA E6/E7 Not Detected Not Detected [facility] Comment:Methodology: Transcr iption-Mediated AmplificationThis assay detects E6/E7 viral messenger RNA (mRNA) from 14high-risk HPV types (16,18,31,33,35,39,45,51,52,56,58,59,66,68).Cervical sources are required for HPV testing.If a vaginal source from a patient who has had atotal hysterectomy with removal of cervix wassubmitted, please contact the testing laboratoryfor alternative testing options.For additional information, please refer [email or web address]/faq/WPJ869e0(This link if provided for information/educational purposes only.)THIS TEST WAS PERFORMED AT:[employer] [address] [address]ULAPPLES FISCHER MD SOURCE: SEE NOTE [facility] Comment:None given Report Status: [facility] Clinical Information: SEE NOTE [facility] Comment:None given LMP: SEE NOTE [facility] Comment:NONE GIVEN Prev. PAP: SEE NOTE [facility] Comment:NONE GIVEN Prev. BX: SEE NOTE [facility] Comment:NONE GIVEN Statement Of Adequacy: SEE NOTE [facility] Comment:Satisfactory for tiffany luation.Endocervical/transformation zone componentpresent. General Categorization: [facility] Interpretation/Result: SEE NOTE [facility] Comment:Cytology Results: Ne gative for intraepitheliallesion or malignancy. Cytology Comment SEE NOTE [facility] Comment:This Pap test has be en evaluated with computerassisted technology. Professor Of Archaeology: SEE NOTE [facility] Comment:YP, CT(ASCP)CT joshuae gino location: [address] [address] Review Professor Of Archaeology: [facility] Pathologist [facility] PAP Infection [facility] See Note SEE [facility] Comment:EXPLANATORY NOTE:The Pap is a screening test for cervical cancer. It isnot a diagnostic test and is subject to false negativeand false positive results. It is most reliable when asatisfactory sample, regularly obtained, is submittedwith relevant clinical findings and history, and whenthe Pap result is evaluated along with historic andcurrent clinical information. 10/25/2023 10/25/2023 Narrative [facility] - 11/01/2023 12:30 PM EDT SEE SCANNED RESULTS IN EMR Lou Gonzalez MD LAB PATHOLOGY ORDERABLES Ashlyn l Result Performing Organization Address [facility] de Phone Number [facility] [address] [place] [address] [phone] * Hepatitis Panel, General (01/13/2023 9:50 AM EST) [facility] Hepatitis A IgM Nonreactive Nonreactive [facility] Comment:IgM antibodies to RUELAS V not detected; does not exclude earlyacute or recovered HAV infection. ~Hepatitis B Surface Antibody NONREACTIVE Nonreactive [facility] Comment:Nonreactive: < 8.00 mIU/mL Hepatitis B Core Antibody Nonreactive Nonreactive [facility] Hepatitis C Antibody Nonreactive Nonreactive [facility] Comment:Antibodies to HCV no t detected; does not exclude early acuteHCV infection. Hepatitis B Surface Ag Negative Negative [facility] 01/13/2023 9:50 AM EST 01/13/2023 9:52 AM EST us Generic External Data Provider LAB BLOOD ORDERAB LES Final Result Performing Organization Address [facility] de Phone Number [facility] [address] [place] [address] [phone] * (ABNORMAL) LIPID PANEL, STANDARD (08/04/2021 9:06 AM EDT) Pathologist [facility] Chol/HDLC Ratio 4.9 <5.0 (calc) [facility] ?? LDL-C is now calculated using the Donna ?? calculation, which is a validated novel method providing ?? better accuracy than the Friedewald equation in the ?? estimation of LDL-C. ?? Esteban JACOBS et al. NIC. 2013;310(19): 3802-2315 ?? (http://[employer]/faq/SJX280) Non-HDL Cholesterol 188(H) <130 mg/dL (calc) [facility] Comment: For patients with diabetes plus 1 major ASCVD risk ?? factor, treating to a non-HDL-C goal of <100 mg/dL ?? (LDL-C of <70 mg/dL) is considered a therapeutic ?? option. Triglycerides 189(H) <150 mg/dL [facility] 08/04/2021 9:06 AM EDT Giana Isbell MD LAB BLOOD ORDERABLES Final Result [facility] [address] * Colonoscopy (12/02/2015) Colonoscopy Normal Normal Narrative Lily Sanchez - 12/02/2015 Recommended 10 year follow up Historical Provider HEALTH MAINTENANCE Final Result from Last 3 Months or Most Recently Relevant to Health Maintenance [place] [address] [place] [phone] - [facility] Care Teams Vitreo Retinal Surgeon Relationship Specialty Start Date End Date Giana Isbell MD [address] [place] [address] PCP - General Internal Medicine 09/07/18
== END 2024-03-27 15:35 | disposition home or self-care (01) ==
PROVIDERS: PCP Internal Medicine; Visit Provider Surgery
DX: C50.911 Malignant neoplasm of unspecified site of right female breast (principal)
CPT/HCPCS: 99213

== ENCOUNTER → 2024-03-27 14:56 | Outpatient (BNVA) | payer OTHER, SELFPAY | PROVIDERS: PCP Internal Medicine; Visit Provider Surgery | DX: C50.811 Malignant neoplasm of overlapping sites of right female breast (principal) | CPT/HCPCS: 99212 ==

== ENCOUNTER 2024-04-09 10:46 | Outpatient (AMB) | payer OTHER, SELFPAY ==
[2024-04-09 11:05] VITALS: BP 90/52; PULSE 105; BMI 26.4
--- NOTE | 2024-04-09 11:05 | A.OFFVIS_ITS ---
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 anteroseptal hypokine Interventional Physician Required: Yes Interventional Physician Services: Interventional Physician Present Interventional Physician Name: Wei [id number] Accompanied by: Spouse Allergies acetaminophen [Vicodin] Allergy (Unknown, Verified 03/27/24 15:01) unk Penicillins Adverse Reaction (Mild, Verified 03/27/24 15:01) HYPERTENSION hydrocodone [From VICODIN] Adverse Reaction (Unknown, Verified 03/27/24 15:01) HIGH BP Medication List - Last Reconciled 04/09/24 by Emmanuel Keys MD albuterol-budesonide 90-80 mcg/actuation 2 inhalations inhalation TID PRN azithromycin 500 mg PO Q24H capsaicin 0.025% 1 appl topical BEDTIME cholecalciferol (vitamin D3) (Vitamin D3) 50 mcg PO DAILY dexamethasone 2 mg PO BID diclofenac sodium 1% 4 grams topical DAILY PRN docusate sodium 100 mg PO DAILY PRN erythromycin 0.5 inches ophthalmic (eye) TID famotidine 20 mg PO DAILY Magic Mouthwash Diphen/Nystat/Antacid 1:1:1 10 mL PO BID PRN nortriptyline 100 mg PO BEDTIME nystatin-triamcinolone 100,000-0.1 unit/g-% 1 appl topical DAILY ondansetron 4 mg PO Q8H PRN ondansetron 8 mg PO Q8H PRN pantoprazole 20 mg PO QAM PRN quetiapine 100 mg PO BEDTIME PRN sumatriptan succinate 50 mg PO DAILY PRN Synthroid (levothyroxine) 112 mcg PO DAILY NS HPI Comments Details: Tory is here for consultation regarding an abnormal echocardiogram. Echocardiogram from December of 2023 shows LVEF of 61%. Possible basal anteroseptal hypokinesis. Hence she is referred here. Patient herself does not have any known cardiac issues. No coronary disease or myocardial infarction or cardiomyopathy or in fact any other cardiac concerns. She states that she gets chest pains somewhat randomly. Can happen with or without exertion. She is also on treatment for breast cancer. Currently on chemotherapy according to her. [facility] Medical History Anemia GERD (gastroesophageal reflux disease) Fatty liver Invasive ductal carcinoma of right breast Type 2 diabetes mellitus Vitamin D deficiency Multinodular thyroid Hypothyroidism Surgical History History of lobectomy of thyroid Hx of colonoscopy History of esophagogastroduodenoscopy (EGD) History of carpal tunnel surgery of left wrist Tubal ligation status Hx of foot surgery Hx of epicondylectomy Hx of cholecystectomy Hx of thyroidectomy Hx of appendectomy Family History Father No problems noted. 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 Gender identity: Female Female Reproductive History Menstrual Age of Menarche: 15 Review of Systems Const Denies chills, Denies daytime sleepiness, Denies fatigue, Denies fever(s), Denies poor appetite, Denies snoring, Denies stops breathing during sleep, Denies weakness, Denies weight gain and Denies weight loss Eyes Denies loss of vision ENT Denies dizziness and Denies hearing loss Card Reports chest pain, Denies irregular heart rhythm, Denies claudication, Denies leg edema, Denies lightheadedness, Denies palpitations, Reports dyspnea on exertion and Denies orthopnea Resp Denies cough, Denies excessive phlegm production, Reports dyspnea on exertion, Denies snoring and Denies wheezing GI Denies abdominal pain, Denies hematochezia, Denies change in bowel habits, Denies nausea and Denies vomiting Denies urinary frequency and Denies dysuria Musc Denies arthralgias, Denies muscle weakness, Denies numbness and Denies other Skin/Breast Denies nail changes and Denies rash Neuro Denies Abnormal speech present, Denies dizziness, Denies loss of vision, Denies memory loss, Denies numbness and Denies weakness Psych Denies depression and Denies memory loss Endo Denies fatigue and Denies palpitations Bulmaro/Lymph Denies easy bruising Aller/Immun Denies wheezing Physical Exam Vital Signs: Last Vital Signs Pulse 105 H 04/09/24 11:05 BP 90/52 L 04/09/24 11:05 BMI result Body Mass Index 26.4 Const General: comfortable and no acute distress Orientation/consciousness: patient oriented x3 HEENT Other: Unremarkable Head: Yes normal to inspection Neck Neck: Yes normal visual inspection Chest Chest palpation & inspection: normal inspection of the chest Resp Auscultation: clear to auscultation bilaterally Cardio Palpation: normal PMI Heart sounds: S1 normal heart sound present, S2 normal heart sound present, no gallops, no murmurs and no rubs GI Palpation (GI): Soft to palpation Back/Spine/Pelvis Other: unremarkable Skin General skin exam: no rashes or lesions noted Neuro General: patient oriented x3 Speech: No Abnormal speech present Extrem General: Yes normal to inspection Psych Mental Status: mental status grossly normal Assessment & Plan Assessment & Plan (1) Precordial chest pain: Code(s): R07.2 - Precordial pain Category: Medical (2) Regional wall motion abnormality of heart: Code(s): R93.1 - Abnormal findings on diagnostic imaging of heart and coronary circulation Category: Medical (3) Chemotherapy follow-up examination: Code(s): Z09 - Encounter for follow-up examination after completed treatment for conditions other than malignant neoplasm Category: Medical Plan Recent EKG with underlying sinus tachycardia at 103/Min; nonspecific ST-T changes; normal LA and corrected QT. Echocardiogram from 12/2023-LVEF 61%. Possible basal anteroseptal hypokinesis. Otherwise unremarkable. Unclear if it is a true finding or an artifactual finding. Available high sensitivity troponins are all within range. Cardiac BNP is also in normal range. She is describing chest pains but not classical for angina. Any case, she is on chemotherapy, we will perform an exercise stress perfusion imaging study to assess for ischemia. Repeat echocardiogram to reassess wall motion. Follow-up after the above. Discussed using resident care associate. Discussed with family who came for appointment. Orders: Orders CA Echo Limited Today Z09 - Encounter for follow-up examination after completed treatment for conditions other than malignant neoplasm NM cardiolite stress test Today R07.2 - Precordial pain CA stress test Today R07.2 - Precordial pain Coding Level of Care Code New Pt Level 4 (87656) Complex EM visit Add On G2211 Diagnoses Precordial chest pain R07.2 Regional wall motion abnormality of heart R93.1 Chemotherapy follow-up examination Z09
--- OUTSIDE RECORDS SUMMARY | 2024-04-09 12:41 | XMS_ITS | Data Portability ---
Author Organization [employer] Address [address] [place] [id number] Care Team Providers Care Cd Reactor Operator Name Role Phone [facility] Referring Provider [facility] Referring Provider Assessment Encounter Date Assessment Date Assessment LastModified by Organization Details LastModified Time 10/02/2021 10/02/2021 I have reviewed and agree with the Assessment and Plan as documented by the Manager Utilities. I provided real -time medical direction via phone for this encounter, and was available for additional phone based assistance as needed. Patient given the opportunity to ask questions. [email or web address] Not available 10/02/2021 19:13:58 04/13/2023 04/13/2023 Ms. Tory Cantrell is a 57yoF who is seen today for further evaluation of right eye irritation. Ms. Cantrell reports three days of right eye itching and watering. She denies any fevers but reports that her left eye is starting to also itch and she has some minimal right ear discomfort. Otherwise has been feeling well. VSS. Manager Utilities site uploads picture of minimally injected and tearing right eye. Exam is c/w viral conjunctivitis . Recommended ongoing OTC therapies and cool compress/hand hygeine. Red flags to be reviewed by kelp cutter. Not available 04/13/2023 10:45:55 Plan of Treatment [...] Not available Not available Not available 10/02/2021 [id number] SNOMED Not Available [employer] 03:43:36 890 hydrocodo ne Not available Not available Not available Not available 10/02/2021 5489 RxNorm Cynthia Maguire MD [address] [facility],[address], [place], [address] , [facility] [employer] 18:39:23 Medications Name Sig Start Date Stop [...] % 98 % 88 /min 18 /min 74561.8 8 g 97.6 [degF] 124 mm[Hg] 76 mm[Hg] Not Available [employer] 4 10:39:50 Date Recorded Body temperature Heart [...] mm[Hg] 120 mm[Hg] 70 mm[Hg] Not Available [employer] 2 17:37:54 Date Recorded Body weight Provider Name an d Address Organization Details Last Updated DateTime 10/02/2021 54440.01 g Shravan Mallory [address] [place] [address],[address], [place], [address], [facility] [employer] [facility] 10/02/2021 18:45:32 Social History None recorded. Functional Status None recorded. Mental Status None recorded. Family History Nothing Reported. Medical History No medical history recorded. Gynecological HistoryNo gynecological history recorded. Obstetrics History GPAL:G 0 P 0 0 0 0 Past Encounters Encounter ID Performer Location Encounter Start Date Encounter Closed Date Diagnosis/Indication Diagnosis SNOMED-CT Code Diagnosis ICD10 Code Diagnosis Note [id number] Cynthia Maguire MD [facility] - [address] [phone] 10/02/2021 16:58:56 10/21/2021 11:37:50 Pain in right heel 8053590488 242957 M79.671 possible plantar fasciitis- vs talar tendonitis [...] continue Naprosyn in am Delilah Hope MD [facility] - [address] [phone] 04/13/2023 10:39:45 04/14/2023 09:54:22 Viral conjunctivitis 12852824 B30.9 Health Concerns Section Related Observation LastModified by Organization Detai ls LastModified Time None Recorded Concern Status LastModified by Organization Details LastModified Time None Recorded Advance Directives Directive None Recorded Payers Encounter Date Sequence Insurance Name Policy Number Policy Pastor Covered Member ID Pastor Member ID Guarantor Name 10/02/2021 1 [facility] [employer] - DOS PRIOR TO 2022 - DUAL ELIGIBLE (MEDICARE REPLACEMENT/ADV ANTAGE - HMO) Tory Cantrell [id number] Tory Cantrlel 04/13/2023 1 [facility] [employer] - DOS ON OR AFTER 2022 - DUAL ELIGIBLE - ALF OPTIONS AND ONE CARE (MEDICARE REPLACEMENT/ADV ANTAGE - HMO) Tory Cantrell [id number] Tory Cantrell Notes Date Note Type Note [...] .................. .................. .................. .................. .................. .................. ............... Manager Utilities Note: Eval for right heel pain. pt stated she has had right heel pain for about 1 month, getting worse lately. Pt states she has appointment with ortho on Tuesday- pt has HX of tendon surgeries and chronic pain. pt states pain is bottom of heel, with discomfort generalized around ankle. no other new pain. pt denied fever/chills, denied sob/cp. [facility] recommended ice, elevate and we gave 15mg toradol for temp relief of pain. pt to follow up with pcp .................. .................. .................. .................. .................. .................. .................. ............... Disposition: FulfilledSEGMD: As above- hx chronic pain- On Naprosyn 500 mg q AM- denies hx CKD- not on anticoagulants- denies numbness/ tingling- worse w/ palpation/ ambulation/ WB Cynthia Maguire MD [address] [place] [address],[address], [place], [address], [employer] 10/03/2021 17:32:32 04/13/2023 text/html HPI: HX Depression,migrain es. Three day history of eye irritation redness with drainage. No fever.slight ear discomfort. .................. .................. .................. .................. .................. .................. .................. ............... CRC Nurse Triage Notes (Yvette Guerra): Comments: HPI reviewed. No further information reviewed to process visit. .................. .................. .................. .................. .................. .................. .................. ............... Manager Utilities Note From Devan Brown: Pt co irrigation [...] Pt education on signs indicating the ER. [employer] Allergies: Acetaminophen, Penicillin .................. .................. .................. .................. .................. .................. .................. ............... Disposition: Fulfilled Delilah Hope MD [address] [facility],[address], [place], [address], [employer] 04/13/2023 16:03:59 OBGyn Episode No OBEpisode recorded.
--- OUTSIDE RECORDS SUMMARY | 2024-04-09 12:41 | XMS_ITS | Encounter Summary ---
Author Organization [employer] Address [address] [place] [address] Care Team Providers Care Lead Care Manager Name Role Phone Giana Isbell MD Primary Care Provider [phone] Encounter Details Date Type Department Care Team (Latest Contact Info) Description 03/28/2024 Travel Social History Tobacco Use Types Packs/Day Years Used Date Smoking Tobacco: Never Passive Smoke Exposure: Never Smokeless Tobacco: Never Depression Answer Date Recorded Patient Health Questionnaire-9 Score 24 03/28/2024 Patient Health Questionnaire-9 Score 24 03/28/2024 Last PHQ-9: Questionnaire Data Not on file 0 03/28/2024 Housing Stability Answer Date Recorded What is [...] Answer Date Recorded Patient Health Questionnaire-2 Score 5 03/28/2024 Internet Access Answer Date Recorded Internet Access [...] 06/11/2024 9:00 AM EDT Office Visit [facility] OPTOMETRY [address] [place] [address] Morteza, Dawna, OD [address] [place] [address] 06/26/2024 1:30 PM EDT Office Visit [facility] CHC MED & PEDS [address] [place] [address] Giana Isbell MD [address] [place] [address] documented as of this encounter Visit Diagnoses Not on filedocumented in this encounter Additional Health Concerns Assessment Noted Time PHQ-9 Depression Total Score: 24 03/28/ 025 9:26 AM EST documented as of this encounter Care Teams Lead Care Manager Relationship Specialty Start Date End Date Giana Isbell MD [address] [place] [address] PCP - General Internal Medicine 09/07/18 documented as of this encounter
--- OUTSIDE RECORDS SUMMARY | 2024-04-09 12:41 | XMS_ITS | Encounter Summary ---
Author Organization [employer] Address [address] [facility] [address] [place] [address] Care Team Providers Care Supplier Engineer Name Role Phone Giana Isbell MD Primary Care Provider [phone] Encounter Details Date Type Department Care Team (Latest Contact Info) Description 02/16/2019 Abstract [facility] CONVERSIONS Dental, Provider, DDS Social History Tobacco [...] [facility] OPT[facility] [address] [place] [address] Dawna Pro, OD [address] [place] [address] 06/26/2024 1:30 PM EDT Office Visit [facility] CHC MED & PEDS [address] [place] [address] Giana Isbell MD [address] [place] [address] documented as of this encounter Visit Diagnoses Not on filedocumented in this encounter Care Teams Supplier Engineer Relationship Specialty Start Date End Date Giana Isbell MD [address] [place] [address] PCP - General Internal Medicine 09/07/18 documented as of this encounter
--- OUTSIDE RECORDS SUMMARY | 2024-04-09 12:41 | XMS_ITS | Encounter Summary ---
Author Organization [employer] Address [address] [facility] [address] [place] [address] Care Team Providers Care Tile Finisher Name Role Phone Giana Isbell MD Primary Care Provider [phone] Reason for Visit * Reason Comments Transition Of Care (Tcm) HDF unscheduled LVM Encounter Details Date Type Department Care Team ([facility] st Contact Info) Description 03/19/2024 Patient Outreach [facility] MEDICINE [address] [place] [address] Giana Isbell MD [address] [place] [address] Transition Of Care (Tcm) (HDF unscheduled LVM [...] Admission/Visit 03/13/24 Date of Discharge 03/16/24 Facility [facility] Diagnosis pneumonia Disposition Discharged Home Follow-Up Actions [...] and Wednesdays,and Walk-In Urgent Care Located in [facility]. Patient provided with after-hours line for [facility], , which offer night time triage service and option to transfer to personnel security assistant provider if needed. CC scanned discharge summary into patient's chart. CC will place additional outreach call within2-5 business days. documented in this encounter Plan of Treatment Upcoming Encounters Date Type Department Care Team (Late st Contact Info) Description 06/11/2024 9:00 AM EDT Office Visit [facility] OPTOMETRY [address] [place], [place] [phone] Dawna Pro, OD [address] [place] [address] 06/26/2024 1:30 PM EDT Office Visit [facility] CHC MED & PEDS [address] [place] [address] Giana Isbell MD [address] [place] [address] documented as of this encounter Visit Diagnoses Not on filedocumented in this encounter Additional Health Concerns Assessment Noted Time PHQ-9 Depression Total Score: 7 07/30/19 23 10:13 AM EDT documented as of this encounter Care Teams Tile Finisher Relationship Specialty Start Date End Date Giana Isbell MD [address] [place] [address] PCP - General Internal Medicine 09/07/18 documented as of this encounter
--- OUTSIDE RECORDS SUMMARY | 2024-04-09 12:41 | XMS_ITS | Encounter Summary ---
Author Organization [employer] Address [address] [facility] [address] [place] [address] Care Team Providers Care Fly Raiser Lockstitch Name Role Phone Giana Isbell MD Primary Care Provider [phone] Encounter Details Date Type Department Care Team ([facility] st Contact Info) Description 04/05/[address] [facility] MEDICINE [address] [place] [address] Giana Isbell MD [address] [place] [address] Social History Tobacco Use Types Packs/Day Years [...] Description 06/11/2024 9:00 AM EDT Office Visit [facility] OPTOMETRY [address] [place] [address] Morteza, Dawna, OD [address] [place] [address] 06/26/2024 1:30 PM EDT Office Visit [facility] CHC MED & PEDS [address] [place] [address] Giana Isbell MD [address] [place] [address] documented as of this encounter Visit Diagnoses Not on filedocumented in this encounter Additional Health Concerns Assessment Noted Time PHQ-9 Depression Total Score: 7 07/30/19 23 10:13 AM EDT documented as of this encounter Care Teams Fly Raiser Lockstitch Relationship Specialty Start Date End Date Giana Isbell MD [address] [place] [address] PCP - General Internal Medicine 09/07/18 documented as of this encounter
--- OUTSIDE RECORDS SUMMARY | 2024-04-09 12:41 | XMS_ITS | Encounter Summary ---
Author Organization [employer] Address [address] [facility] 7t [place] [address] Care Team Providers Care Continuous Pillowcase Cutter Name Role Phone Giana Isbell MD Primary Care Provider [phone] Reason for Visit * Reason Onset Date Comments Hospital Follow-up 07/20/2022 Encounter Details Date Type Department Care Team ([facility] Contact Info) Description 07/20/2022 Telephone [facility] MED & PEDS [address] [place] [address] Giana Isbell MD [address] [place] [address] Hospital Follow-up Social History Tobacco Use Types [...] a HDF appt. Pt was admitted at [facility] on 07/17/22 and discharged on 07/20/22 due to abdominal pain. documented in this encounter Plan of Treatment Upcoming Encounters Date Type Department Care Team ([facility] Contact Info) Description 06/11/2024 9:00 AM EDT Office Visit [facility] OPT[facility] [address] [place] [address] Dawna Pro, OD [address] [place] [address] 06/26/2024 1:30 PM EDT Office Visit [facility] MED [facility] PEDS [address] [place] [address] Giana Isbell MD 505 [place] [address] documented as of this encounter Visit Diagnoses Not on filedocumented in this encounter Care Teams Continuous Pillowcase Cutter Relationship Specialty Start Date End Date Giana Isbell MD [address] [place] [address] PCP - General Internal Medicine 09/07/18 documented as of this encounter
--- OUTSIDE RECORDS SUMMARY | 2024-04-09 12:41 | XMS_ITS | Encounter Summary ---
Author Organization [employer] Address [address] [facility] 7t [place] [address] Care Team Providers Care Assurance Manager Insurance Name Role Phone Giana Isbell MD Primary Care Provider [phone] Encounter Details Date Type Department Care Team (Latest Contact Info) Description 12/04/2021 Abstract [facility] Dental, Provider, DDS Social [...] Office Visit [facility] [address] [place] [address] Dawna Pro, OD [address] [place] [address] 06/26/2024 1:30 PM EDT Office Visit [facility] [address] [place] [address] Giana Isbell MD 505 [place] [address] documented as of this encounter Visit Diagnoses Not on filedocumented in this encounter Care Teams Assurance Manager Insurance Relationship Specialty Start Date End Date Giana Isbell MD 505 [place] [address] PCP - General Internal Medicine 09/07/18 documented as of this encounter
--- OUTSIDE RECORDS SUMMARY | 2024-04-09 12:41 | XMS_ITS | Encounter Summary ---
Author Organization [employer] Address 75 [facility] 7t [place] [address] Care Team Providers Care Commercial Stripper Name Role Phone Giana Isbell MD Primary Care Provider [phone] Reason for Visit * Reason Onset Date Comments Medication Question 04/02/2024 Encounter Details Date Type Department Care Team ([facility] Contact Info) Description 04/02/2024 Telephone [facility] MEDICINE [address] [place] [address] Giana Isbell MD [address] [place] [address] Medication Question Social History Tobacco Use Types Packs/Day Years [...] encounter Miscellaneous Notes * Telephone Encounter - Safia Guerra RN - 04/03/2024 9:57 AM EST Tc to pt via s id: [id number] to let them know per PCP Ms. Tory Cantrell can take the protonix at night, 3 hours after dinner with an empty stomach. No answer, lvm to return call and ask to speak to [facility] nurses. * Telephone Encounter - Annalee Polanco RN - 04/02/2024 2:19 PM EST TC to pt using [employer]. Pt stated that they have stomach pain within 1 hour after taking levothyroxine that is prescribed. Pt states taking medication first thing in the morning and waits 1 hour before having food. Pt states that stomach pain was not present on different dose of medication discussed. Pt states that pain subsides when taking Tums. Please note pt is actively receiving chemotherapy. Routing to provider for review and recommendation. * Telephone Encounter - Lars Phillips - 04/02/2024 1:21 PM EST Tc from pt stating hat PCP changed her Thyroid medication and the Ones that she is taking now are making her stomach hurt. She was wondering if she would be able to go back to the Original medicationthat she had. Contact Pt at [phone] documented in this encounter Plan of Treatment Upcoming Encounters Date Type Department Care Team (Late st Contact Info) Description 06/11/2024 9:00 AM EDT Office Visit [facility] OPTOMETRY [address] [place], [place] [phone] MortezaDawna priest, OD [address] [place] [address] 06/26/2024 1:30 PM EDT Office Visit [facility] CHC MED & PEDS [address] [place], [place] [phone] Giana Isbell MD [address] [place], [place] [phone] documented as of this encounter Visit Diagnoses Not on filedocumented in this encounter Additional Health Concerns Assessment Noted Time PHQ-9 Depression Total Score: 24 025 9:26 AM EST documented as of this encounter Care Teams Commercial Stripper Relationship Specialty Start Date End Date Giana Isbell MD [address] [place], [place] [phone] PCP - General Internal Medicine 09/07/18 documented as of this encounter
--- OUTSIDE RECORDS SUMMARY | 2024-04-09 12:41 | XMS_ITS | Encounter Summary ---
Author Organization [employer] Address [address] [place] [address] 7 [place] [address] Care Team Providers Care Medical Laboratory Technologist Name Role Phone Giana Isbell MD Primary Care Provider [phone] Reason for Referral * Imaging (Urgent) - Closed Specialty Diagnoses / Procedures Referred By Ervin chávez Referred To Contact Radiology Diagnoses Elevated alkaline phosphatase level Procedures US Abdomen Complete Giana Isbell MD [address] [place] [address] Phone: tel: fax: [address] Phone: tel: fax: Referral ID Status Reason Start Date Expiration Date Visits Re quested Visits Authorized [id number] Closed 02/17/2023 02/17/2024 1 1 Encounter Details Date Type Department Care Team (Late st Contact Info) Description 02/17/2023 Orders Only [facility] CHC MED & PEDS [address] [place], [place] [phone] Giana Isbell MD [address] [place], [place] [phone] Elevated alkaline phosphatase level (Primary Dx); Left [...] 9:00 AM EDT Office Visit [facility] OPTOMETRY [address] [place] [address] Morteza, Dawna, OD [address] [place] [address] 06/26/2024 1:30 PM EDT Office Visit [facility] CHC MED & PEDS [address] [place], [place] [phone] Giana Isbell MD [address] [place], [place] [phone] documented as of this encounter Procedures Procedure Name Priority Date/Time Associated Diagnosis Comments US ABDOMEN COMPLETE Urgent 03/21/2023 9 :29 AM EST Elevated alkaline phosphatase level documented in this encounter Results * US Abdomen Complete (03/21/2023 9:29 AM EST) Anatomical Region Laterality Modality Abdomen Ultrasound 03/21/2023 9:29 AM EST Narrative 03/22/2023 9:16 AM EST ? [facility] ?[address] ?[place] [address] ? Ultrasound Report ? Signed ? Patient: Tory Bush ?MR#: [id number] ?? [id number] ? : 1965 ?Acct:[id number] ? Age/Sex: 57 / F ?ADM Date: 03/21/23 ? Loc: HO.US ? Attending Dr: Giana Isbell MD ? Ordering Physician: Giana Isbell MD ?? Date of Service: 03/21/23 ?? Procedure(s): US abdomen complete ?? Accession Number(s): [id number] ? cc: Giana Isbell MD ? EXAMINATION: [...] 03/22/23911 ? DD/ 0929 ? TD/TT: ? Reconciliation Accountant: ? Procedure Note Trish, Image - 03/22/2023 [place] [address] Ultrasound Report Signed Patient: Pat Bush#: [id number] : 1965Acct:[id number] Age/Sex: 57 / FADM Date: 03/21/23 Loc: HO.US Attending Dr: Giana Isbell MD Ordering Physician: Giana Isbell MD Date of Service: 03/21/23 Procedure(s): US abdomen complete Accession Number(s): [id number] cc: Giana Isbell MD EXAMINATION: US ABDOMEN [...] MD in OV> 03/22/23911 DD/ 8 TD/TT: Reconciliation Accountant: us Giana Isbell MD IMG US PROCEDURES Final Res ult documented in this encounter Visit Diagnoses Diagnosis Elevated alkaline phosphatase level- Primary Left upper quadrant abdominal pain documented in this encounter Additional Health Concerns Assessment Noted Time PHQ-9 Depression Total Score: 7 07/30/19 23 10:13 AM EDT documented as of this encounter Care Teams Medical Laboratory Technologist Relationship Specialty Start Date End Date Giana Isbell MD [address] [place] [address] PCP - General Internal Medicine 09/07/18 documented as of this encounter
--- OUTSIDE RECORDS SUMMARY | 2024-04-09 12:41 | XMS_ITS | Encounter Summary ---
Author Organization [employer] Address 75 [facility] 7t [place] [address] Care Team Providers Care Import Export Manager Name Role Phone Giana Isbell MD Primary Care Provider [phone] Reason for Visit * Reason Onset Date Comments Nurse Triage 03/01/2023 Encounter Details Date Type Department Care Team ([facility] Contact Info) Description 03/01/2023 Telephone [facility] MEDICINE [address] [place] [address] Giana Isbell MD 505 [place] [address] Nurse Triage Social History Tobacco Use Types [...] 03/01/2023 12:46 PM EST Triage call with [employer] [place] [id number] Pt reports having surgery and not having any pain medication. Pt had a partial left thyroidectomy 02/28/23 @ [facility] and oxycodone 5mg po was ordered . Prescription was sent to [facility] pharmacy. Pt was not aware [...] Description 06/11/2024 9:00 AM EDT Office Visit [facility] OPTOMETRY [address] [place] [address] Dawna Pro, OD [address] [place] [address] 06/26/2024 1:30 PM EDT Office Visit [facility] CHC MED & PEDS [address] [place] [address] Giana Isbell MD [address] [place] [address] documented as of this encounter Visit Diagnoses Not on filedocumented in this encounter Additional Health Concerns Assessment Noted Time PHQ-9 Depression Total Score: 7 07/30/19 23 10:13 AM EDT documented as of this encounter Care Teams Import Export Manager Relationship Specialty Start Date End Date Giana Isbell MD [address] [place] [address] PCP - General Internal Medicine 09/07/18 documented as of this encounter
--- OUTSIDE RECORDS SUMMARY | 2024-04-09 12:41 | XMS_ITS | Encounter Summary ---
Author Organization [employer] Address [address] [facility] 7t [place] [address] Care Team Providers Care Manager Community Relations Name Role Phone Giana Isbell MD Primary Care Provider [phone] Reason for Visit * Reason Comments Med Refill Encounter Details Date Type Department Care Team ([facility] Contact Info) Description 03/31/2022 Refill [facility] CHC MED & PEDS [address] [place], [place] [phone] Giana Isbell MD [address] [place] [address] Acquired hypothyroidism (Primary Dx); Other constipation; Depressive [...] Upcoming Encounters Date Type Department Care Team ([facility] Contact Info) Description 06/11/2024 9:00 AM EDT Office Visit [facility] OPTOMETRY [address] [place], [place] [phone] Morteza, Dawna, OD [address] [place] [address] 06/26/2024 1:30 PM EDT Office Visit [facility] CHC MED & PEDS [address] [place] [address] Giana Isbell MD [address] [place] [address] documented as of this encounter Visit Diagnoses Diagnosis Acquired hypothyroidism- Primary Unspecified hypothyroidism Other constipation Depressive disorder Depressive disorder, not elsewhere classified Seasonal allergies Allergic rhinitis, cause unspecified Migraine without aura and without status migrainosus, not intractable documented in this encounter Care Teams Manager Community Relations Relationship Specialty Start Date End Date Giana Isbell MD [address] [place] [address] PCP - General Internal Medicine 09/07/18 documented as of this encounter
--- OUTSIDE RECORDS SUMMARY | 2024-04-09 12:41 | XMS_ITS | Encounter Summary ---
Author Organization [employer] Address 75 [facility] 7t [place] [address] Care Team Providers Care Wind Project Manager Name Role Phone Giana Isbell MD Primary Care Provider [phone] Reason for Visit * Reason Onset Date Comments Hospital Follow-up 03/19/2024 Encounter Details Date Type Department Care Team ([facility] Contact Info) Description 03/19/2024 Telephone [facility] MEDICINE [address] [place] [address] Giana Isbell MD [address] [place] [address] Hospital Follow-up Social History Tobacco Use Types [...] from pt requesting a HDF appt. [place] [facility] Date of admission: 03/13/24 Discharge date: 03/16/24 Diagnosed: Pneumonia *Send message to [facility] Coordinators Contact Pt MEDICAL DIRECTOR at [phone] documented in this encounter Plan of Treatment Upcoming Encounters Date Type Department Care Team (Late st Contact Info) Description 06/11/2024 9:00 AM EDT Office Visit [facility] OPTOMETRY [address] [place] [address] Morteza, Dawna, OD [address] [place] [address] 06/26/2024 1:30 PM EDT Office Visit [facility] CHC MED & PEDS [address] [place] [address] Giana Isbell MD [address] [place] [address] documented as of this encounter Visit Diagnoses Not on filedocumented in this encounter Additional Health Concerns Assessment Noted Time PHQ-9 Depression Total Score: 7 07/30/19 23 10:13 AM EDT documented as of this encounter Care Teams Wind Project Manager Relationship Specialty Start Date End Date Giana Isbell MD [address] [place] [address] PCP - General Internal Medicine 09/07/18 documented as of this encounter
--- OUTSIDE RECORDS SUMMARY | 2024-04-09 12:41 | XMS_ITS | Encounter Summary ---
Author Organization [employer] Address [address] [facility] 7t [place] [address] Care Team Providers Care Sterile Processing Technologist Name Role Phone Giana Isbell MD Primary Care Provider [phone] Reason for Visit * Reason Comments Transition Of Care (Tcm) HDF scheduled a nd SDOH screening negative and Tobacco screening negative Encounter Details Date Type Department Care Team (Late st Contact Info) Description 03/20/2024 Patient Outreach [facility] MEDICINE [address] [place] [address] Giana Isbell MD [address] [place] [address] Transition Of Care (Tcm) (HDF scheduled and [...] 03/20/24 0836 Hospital Discharg[facility] Type of Visit Hospital Admission Date of Admission/Visit 03/13/24 Date of Discharge 03/16/24 [facility] Diagnosis Pneumonia Disposition Discharged Home Follow-Up Actions [...] to scheduling. Patient also notified that a [facility] pharmacist will be reaching out to [...] Wednesdays, and Walk-In Urgent Care Located in [facility]. Patient provided with after-hours line for [facility], , which offer night time triage ser vice and option to transfer to continuous conveyor screen drier provider if needed. CC scanned discharge summary into patient's chart. Biggest concern for appointment at this time is no concerns. Appropriate screenings completed in anticipation of appointment. documented in this encounter Plan of Treatment Upcoming Encounters Date Type Department Care Team (Late st Contact Info) Description 06/11/2024 9:00 AM EDT Office Visit [facility] OPTOMETRY [address] [place], [place] [phone] MortezaKeon, OD [address] [place] [address] 06/26/2024 1:30 PM EDT Office Visit [facility] CHC MED & PEDS [address] [place] [address] Giana Isbell MD [address] [place] [address] documented as of this encounter Visit Diagnoses Not on filedocumented in this encounter Additional Health Concerns Assessment Noted Time PHQ-9 Depression Total Score: 7 07/30/19 23 10:13 AM EDT documented as of this encounter Care Teams Sterile Processing Technologist Relationship Specialty Start Date End Date Giana Isbell MD [address] [place] [address] PCP - General Internal Medicine 09/07/18 documented as of this encounter
--- OUTSIDE RECORDS SUMMARY | 2024-04-09 12:41 | XMS_ITS | Encounter Summary ---
Author Organization [employer] Address [address] [facility] [address] [place] [address] Care Team Providers Care Air Brake Mechanic Name Role Phone Giana Isbell MD Primary Care Provider [phone] Encounter Details Date Type Department Care Team ([facility] st Contact Info) Description 02/06/2024 Orders Only [facility] CHC MED & PEDS [address] [place] [address] Giana Isbell MD 505 [place] [address] Acquired hypothyroidism (Primary Dx) Social History Tobacco [...] Description 06/11/2024 9:00 AM EDT Office Visit [facility] OPTOMETRY [address] [place] [address] Morteza, Megan, OD [address] [place] [address] 06/26/2024 1:30 PM EDT Office Visit [facility] CHC MED & PEDS [address] [place], [place] [phone] Giana Isbell MD [address] [place], [place] [phone] Scheduled Orders Name Type Priority Associated Diagnoses [...] EST Narrative 02/10/2024 3:39 PM EST ? [facility] ?[address] ?[place] [address] ? Magnetic Resonance Report ? Signed with Addenda ? Patient: Tamia Sánchez,Tory ?MR#: [id number] ?? [id number] ? : 1965 ?Acct:[id number] ? Age/Sex: 58 / F ?ADM Date: 12/30/24 ? Loc: HO.MRI ? Attending Dr: Pardeep Marcos MD ? Ordering Physician: Pardeep Marcos MD ?? Date of Service: 02/06/24 ?? Procedure(s): MR breast BI wo/w con ?? Accession Number(s): [id number] ? cc: Giana Isbell MD; Pardeep Marcos [...] DD/ 0933 ? TD/TT: 02/06/24 1016 ? Telephone Order Clerk Room Service: ? Procedure Note Donhernanter, Image - 02/13/2024 [place] [address] Magnetic Resonance Report Signed with Addenda Patient: Pat Bush#: [id number] : 1965Acct:[id number] Age/Sex: 58 / FADM Date: 02/06/24 Loc: HO.MRI Attending Dr: Pardeep Marcos MD Ordering Physician: Pardeep Marcos MD Date of Service: 02/06/24 Procedure(s): MR breast BI wo/w con Accession Number(s): [id number] cc: Giana Isbell MD; Pardeep Marcos MD [...] signed by DO Shira in OV> 02/13/24 103 Addendum Cosigned By: DD/ TD/TT: 02/06/24 EXAMINATION: [...] by: Carissa Raza DO 02/10/2024 03:36 PM [facility] Dictated By: Carissa Raza DO Signed By: <Electronically signed by Carissa Raza DO in OV> 02/10/24 1536 DD/ 0933 TD/TT: 02/06/24 1016 Telephone Order Clerk Room Service: [facility] External Provider IMG MRI PROCEDURES Edited Result - Final documented in this encounter Visit Diagnoses Diagnosis Acquired hypothyroidism- Primary Unspecified hypothyroidism documented in this encounter Additional Health Concerns Assessment Noted Time PHQ-9 Depression Total Score: 7 07/30/19 23 10:13 AM EDT documented as of this encounter Care Teams Air Brake Mechanic Relationship Specialty Start Date End Date Giana Isbell MD [address] [place] [address] PCP - General Internal Medicine 09/07/18 documented as of this encounter
--- OUTSIDE RECORDS SUMMARY | 2024-04-09 12:41 | XMS_ITS | Encounter Summary ---
Author Organization [employer] Address [address] [facility] 7t [place] [address] Care Team Providers Care Stippler Name Role Phone Giana Isbell MD Primary Care Provider [phone] Reason for Visit * Reason Comments Hospital discharge follow-up Encounter Details Date Type Department Care Team ([facility] Contact Info) Description 03/28/2024 9:15 AM EST Office Visit [facility] MED & PEDS [address] [place] [address] Giana Isbell MD [address] [place] [address] Acute cough (Primary Dx); Acquired hypothyroidism; SOB (shortness of breath); Bronchopneumonia Social History Tobacco Use Types Packs/Day Years [...] Sign Reading Time Taken Comments Blood Pressure 105/66 03/28/2024 9:16 AM EST Pulse 88 03/28/2024 9:16 AM EST Temperature 36.7 ??C (98.1 ??F) 03/28/2024 9:16 AM ES T Respiratory Rate 20 03/28/2024 9:16 AM EST Oxygen Saturation 99% 03/28/2024 9:16 AM EST Inhaled Oxygen Concentration - - Weight 63.9 kg (140 lb 12.8 oz) 03/28/2024 9:16 AM EST Height 152.4 cm (5') 03/28/2024 9:16 AM EST Body Mass Index 27.5 03/28/2024 9:16 AM EST documented in this encounter Progress Notes * Giana Isbell MD - 03/28/2024 9:15 AM EST Subjective Patient ID: Tory Cantrell is a 58 y.o. female who presents for Hospital discharge follow-up. HPI Patient is here for hospital discharge follow-up. She has a history of right breast cancer diagnosed in January 2024. While she was at an appointment at her oncologist office she was complaining of chest pain/SOB/fatigue on March 13, 2024. Transferred to the emergency department. Initial workup ruled out pulmonaryembolism. CT angio showed some left lower lobe mucous plugging and mild airway thickening in the left lower lobe suggestive of bronchopneumonia. Her blood culture was negative. Incidental finding of TSH level of 17. Discharge on cefuroxime 500 mg 2 times a day for 7 days and azithromycin 500 mg daily for 3 days. Since discharge on March 16 2024 patient has still been experiencing shortness of breath. Denies any fever. Still have a cough mostly at night. Has been using her albuterol pump without significantimprovement. It was recommended to repeat the TSH and repeat the chest x-ray to assess resolution of the pneumonia. Patient Active Problem List Diagnosis Asthenia Cyst [...] breast Cervical cancer screening Pre-diabetes Fractured dental moravian without loss of material Closed fracture of tooth Ductal carcinoma of breast (CMS/HCC) Current Outpatient Medications on File Prior to Visit Medication Sig Dispense Refill Albuterol-Budesonide (Airsupra) 90-80 MCG/ACT aerosol Inhale 3 Inhalations Once per day. calcium carbonate (Os-Norberto) 1250 (500 Ca) MG chewable tablet Chew 1 tablet if needed each day for heartburn. capsaicin (Zostrix) 0.025 % cream APPLY 1 GRAM TOPICALLY TO AFFECTED AREA(S) TWICE DAILY 60 g 3 [] cefuroxime (Ceftin) 500 MG tablet Take 1 tablet by mouth 2 times daily. chlorhexidine (Peridex) 0.12 % solution Swish 15 mL morning and night for 1 minute. Spit, do not swallow. Do not eat or drink for 30 minutes following use. 473 mL 0 D3 Super Strength 50 MCG (2000 UT) capsule TAKE 1 CAPSULE BY MOUTH EVERY DAY 30 capsule 5 dexAMETHasone (Decadron) 2 MG tablet TAKE 1 TABLET BY MOUTH TWICE DAILY START NIGHT BEFORE CHEMOTHERAPY AND 2 DAYS AFTER Diclofenac Sodium 1 % gel Apply 4 g topically if needed in the morning, at noon, in the evening, and at bedtime. Left hip docusate sodium (Colace) 100 MG capsule TAKE 1 CAPSULE BY MOUTH AT BEDTIME NEEDED 30 capsule 5 Elastic Bandages & Supports (Knee Support) [facility] H/o knee instability. 2 each 0 famotidine (Pepcid) 20 MG tablet Take 1 tablet (20 mg) by mouth 2 times daily. 60 tablet 11 fluticasone (Flonase) 50 MCG/ACT nasal spray INSTILL 1-2 SPRAYS IN EACH NOSTRIL ONCE DAILY NEEDED 16 g 5 hydrocortisone 0.5 % cream APPLY 1 GRAM TOPICALLY TO AFFECTED AREA(S) TWICE DAILY DIRECTED 56.8 g 1 Ketotifen Fumarate (Zaditor) 0.035 % solution Administer 1 drop into affected eye(s) if needed in the morning and at bedtime (itching). 10 mL 0 nortriptyline (Pamelor) 50 MG capsule Take 100 mg by mouth in the morning. nystatin-triamcinolone (Mycolog II) cream APPLY TO THE AFFECTED AREA(S) TOPICALLY THREE TIMES DAILY ondansetron ODT (Zofran-ODT) 8 MG disintegrating tablet Take 1 tablet by mouth every 8 (eight) hours if needed for vomiting or nausea. pantoprazole (ProtoNix) 20 MG EC tablet TAKE 1 TABLET BY MOUTH EVERY MORNING NEEDED FOR HEARTBURN polyethylene glycol, PEG, 3350 (Miralax) 17 g packet Take 17 g by mouth Once per day. QUEtiapine (SEROquel) 100 MG tablet Take 100 mg by mouth if needed at bedtime. sertraline (Zoloft) 100 MG tablet TAKE 1 AND 1/2 TABLETS BY MOUTH EVERY MORNING SUMAtriptan (Imitrex) 50 MG tablet Take 1 tablet by mouth if needed each day for migraine. venlafaxine (Effexor) 37.5 MG tablet TAKE 1 TABLET BY MOUTH TWICE DAILY 60 tablet 5 [DISCONTINUED] Levoxyl 112 MCG tablet Take 1 tablet (112 mcg) by mouth before breakfast. 30 tablet 3 No current facility-administered medications on file prior to visit. Allergies Allergen Reactions Acetaminophen Unknown Hydrocodone Other and Hives Other reaction(s): Altered Heart Rate Outside Source Comment: Other reaction(s): Altered Heart Rate Hydrocodone-Acetaminophen Penicillin G Rash Penicillins Rash, Unknown and Hives Review of Systems Constitutional: Positive for fatigue. Respiratory: Positive for cough, chest tightness and shortness of breath. Cardiovascular: Negative for leg swelling. Gastrointestinal: Negative for anal bleeding and blood in stool. Genitourinary: Negative for frequency and genital sores. Objective BP 105/66 (BP Location: Right arm, Patient Position: Sitting, BP Cuff Size: Adult) Pulse 88 Temp 98.1 ??F (36.7 ??C) (Oral) Resp 20 Ht 5' (1.524 m) Wt 140 lb 12.8 oz (63.9 kg) SpO2 99% BMI 27.50 kg/m?? Physical Exam Constitutional: General: She is not in acute distress. Appearance: Normal appearance. She is not ill-appearing, toxic-appearing or diaphoretic. Cardiovascular: Rate and Rhythm: Normal rate. Pulmonary: Effort: Pulmonary effort is normal. No respiratory distress. Breath sounds: No wheezing. Neurological: General: No focal deficit present. Mental Status: She is alert. Psychiatric: Mood and Affect: Mood normal. Assessment/Plan Diagnoses and all orders for this visit: Acute cough Comments: Treatment completed Symptomatic treatment recommended for now Checks x-ray ordered. Patient will be contacted with results. Orders: - XR Chest 2 Views; Future - benzonatate (Tessalon Perles) 100 MG capsule; Take 1 capsule (100 mg) by mouth if needed in the morning, at noon, and at bedtime for cough for up to 7 days. Do not crush or chew. Acquired hypothyroidism Comments: Patient claims compliance to her medication Repeat TSH prior to the endocrinology visit Levothyroxine dose increased to 125 mcg daily fasting Orders: - TSH W/Reflex to FT4; Future - benzonatate (Tessalon Perles) 100 MG capsule; Take 1 capsule (100 mg) by mouth if needed in the morning, at noon, and at bedtime for cough for up to 7 days. Do not crush or chew. - levothyroxine (Synthroid) 125 MCG tablet; Take 1 tablet (125 mcg) by mouth before breakfast. SOB (shortness of breath) Comments: Albuterol nebulizer every 6 hours as needed Contact the office if no improvement in the next week or so. Orders: - albuterol (2.5 MG/3ML) 0.083% nebulizer solution; Take 3 mL (2.5 mg) by nebulization every 6 (six) hours if needed for wheezing. Bronchopneumonia Comments: Repeat x-ray of the chest Patient will be contacted with results Orders: - albuterol (2.5 MG/3ML) 0.083% nebulizer solution; Take 3 mL (2.5 mg) by nebulization every 6 (six) hours if needed for wheezing. documented in this encounter Plan of Treatment Upcoming Encounters Date Type Department Care Team (Late st Contact Info) Description 06/11/2024 9:00 AM EDT Office Visit [facility] OPTOMETRY [address] [place], [place] [phone] Morteza, Dawna, OD [address] [place] [address] 06/26/2024 1:30 PM EDT Office Visit [facility] MED & PEDS [address] [place], [place] [phone] Giana Isbell MD [address] [place], [place] [phone] Scheduled Orders Name Type Priority Associated Diagnoses Orde r Schedule TSH W/Reflex to FT4 Lab Routine Acquired hypothyroidism Expected: 03/28/2024 (Approximate), Expires: 03/28/2025 XR Chest 2 Views Imaging Routine Acute cough Expected: 03/28/2024, Expires: 03/28/2025 documented as of this encounter Visit Diagnoses Diagnosis Acute cough- Primary Acquired hypothyroidism Unspecified hypothyroidism SOB (shortness of breath) Shortness of breath Bronchopneumonia Bronchopneumonia, organism unspecified documented in this encounter Additional Health Concerns Assessment Noted Time PHQ-9 Depression Total Score: 24 025 9:26 AM EST documented as of this encounter Care Teams Stippler Relationship Specialty Start Date End Date Giana Isbell MD [address] [place], [place] [phone] PCP - General Internal Medicine 09/07/18 documented as of this encounter
--- OUTSIDE RECORDS SUMMARY | 2024-04-09 12:41 | XMS_ITS | Encounter Summary ---
Author Organization [employer] Address [address] [facility] 7t [place] [address] Care Team Providers Care Paramedic Rn Name Role Phone Giana Isbell MD Primary Care Provider [phone] Encounter Details Date Type Department Care Team (Latest Contact Info) Description 11/13/2020 Abstract [facility] CONVERSIONS Dental, Provider, DDS Social [...] EDT Office Visit [facility] OPTOMETRY [address] [place] [address] Dawna Pro, OD [address] [place] [address] 06/26/2024 1:30 PM EDT Office Visit [facility] CHC MED & PEDS [address] [place] [address] Giana Isbell MD [address] [place] [address] documented as of this encounter Visit Diagnoses Not on filedocumented in this encounter Care Teams Paramedic Rn Relationship Specialty Start Date End Date Giana Isbell MD [address] [place] [address] PCP - General Internal Medicine 09/07/18 documented as of this encounter
--- OUTSIDE RECORDS SUMMARY | 2024-04-09 12:42 | XMS_ITS | Encounter Summary ---
Author Organization [employer] Address [address] [facility] 7t [place] [address] Care Team Providers Care Party Plan Demonstrator Name Role Phone Giana Isbell MD Primary Care Provider [phone] Encounter Details Date Type Department Care Team (Latest Contact Info) Description 02/15/2018 Abstract [facility] CONVERSIONS Dental, Provider, DDS Social History [...] Office Visit [facility] OPTOMETRY [address] [place] [address] Dawna Pro, OD [address] [place] [address] 06/26/2024 1:30 PM EDT Office Visit [facility] CH[facility] MED & PEDS [address] [place] [address] Giana Isbell MD [address] [place] [address] documented as of this encounter Visit Diagnoses Not on filedocumented in this encounter Care Teams Party Plan Demonstrator Relationship Specialty Start Date End Date Giana Isbell MD [address] [place] [address] PCP - General Internal Medicine 09/07/18 documented as of this encounter
--- OUTSIDE RECORDS SUMMARY | 2024-04-09 12:42 | XMS_ITS | Encounter Summary ---
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 Name Role Phone Giana Isbell MD Primary Care Provider [phone] Reason for Referral * Consultation (Routine) - Authorized Specialty Diagnoses / Procedures Referred By Contharman t Referred To Contact Cardiology Diagnoses SOB (shortness of breath) Giana Isbell MD [address] [place] [address] Phone: tel: fax: Kavon Berumen MD [address] [facility] Floor [address] [place] [address] Phone: tel: fax: Referral ID Status Reason Start Date Expiration Date Visits Requested Visits Authorized [id number] Authorized Specialty Services Required 12/18/2024 1 1 Encounter Details Date Type Department Care Team (Late st Contact Info) Description 12/19/2023 Orders Only [facility] CH[facility] MED & PEDS [address] [place] [address] Giana Isbell MD [address] [place] [address] SOB (shortness of breath) (Primary Dx) Social [...] Description 06/11/2024 9:00 AM EDT Office Visit [facility] OPTOMETRY [address] [place] [address] Dawna Pro, OD [address] [place] [address] 06/26/2024 1:30 PM EDT Office Visit [facility] CH[facility] MED & PEDS [address] [place], [place] [phone] Giana Isbell MD [address] [place], [place] [phone] Scheduled Referrals Name Type Priority Associated Diagnoses [...] EST Narrative 01/18/2024 9:40 AM EST ? [facility] [place] ? [address] ?[place] [address] ? Ultrasound Report ? Signed with Addenda ? Patient: Tory Bush ?MR#: [id number] ?? [id number] ? : 1965 ?Acct:[id number] ? Age/Sex: 58 / F ?ADM Date: 01/18/24 ? Loc: HO.MAMMO ? Attending Dr: Pardeep Marcos MD ? Ordering Physician: Pardeep Marcos MD ?? Date of Service: 01/18/24 ?? Procedure(s): US breast ndl core biopsy RT ?? Accession Number(s): [id number] ? cc: Giana Isbell MD; Pardeep Marcos [...] by Carissa Raza, DO in OV> ? 01/25/2454 ?? Addendum Cosigned By: ? DD/ /01/800 [...] DD/ 0800 ? TD/TT: 01/18/24 0835 ? [employer]: ? Procedure Note Trish, Image - 01/25/2024 Isaías [facility] [address] [place], [place] [address] Ultrasound Report Signed with Addenda Patient: Pat Bush#: [id number] : 1965Acct:[id number] Age/Sex: 58 / FADM Date: 01/18/24 Loc: HO.MAMMO Attending Dr: Pardeep Marcos MD Ordering Physician: Pardeep Marcos MD Date of Service: 01/18/24 Procedure(s): US breast ndl core biopsy RT Accession Number(s): [id number] cc: Giana Isbell MD; Pardeep Marcos MD [...] OV> 01/18/2437 DD/ 0800 TD/TT: 01/18/24 0835 [employer]: [facility] External Provider IMG US PROCEDURES Edited Result - Final * BI Mammogram Diagnostic Tomosynthesis Right (01/18/2024 8:00 AM EST) Anatomical Region Laterality Modality Breast Right Mammography 01/18/2024 8:00 AM EST Narrative 01/18/2024 9:40 AM EST ? [facility] [place] ? [address] ?[place] [address] ? Mammography Report ? Signed with Addenda ? Patient: Tamia Sánchez,Tory ?MR#: [id number] ?? [id number] ? : 1965 ?Acct:[id number] ? Age/Sex: 58 / F ?ADM Date: 12/11/24 ? Loc: HO.MAMMO ? Attending Dr: Pardeep Marcos MD ? Ordering Physician: Pardeep Marcos MD ?Results: ? Date of Service: 01/18/24 ?Follow Up: ? Procedure(s): MM tomosynthesis diagnostic RT ?? Accession Number(s): [id number] ? cc: Giana Isbell MD; Pardeep Marcos [...] DD/ 0800 ? TD/TT: 01/18/24 0835 ? [employer]: ? Procedure Note Barbter, Image - 01/25/2024 [facility] [address] [place] [address] Mammography Report Signed with Fani Patient: Pat Bush#: [id number] : 1965Acct:[id number] Age/Sex: 58 / FADM Date: 01/18/24 Loc: ADELITA Attending Dr: Pardeep Marcos MD Ordering Physician: Pardeep Marcosults: Date of Service: 01/18/24Follow Up: Procedure(s): MM tomosynthesis diagnostic RT Accession Number(s): [id number] cc: Giana Isbell MD; Pardeep Marcos MD [...] OV> 01/18/2437 DD/ 9 TD/TT: 01/18/24 0835 [employer]: [facility] External Provider IMG BI PROCEDURES Edited Result - Final documented in this encounter Visit Diagnoses Diagnosis SOB (shortness of breath)- Primary Shortness of breath documented in this encounter Additional Health Concerns Assessment Noted Time PHQ-9 Depression Total Score: 7 07/30/19 23 10:13 AM EDT documented as of this encounter Care Teams Clay Processing Labourer Relationship Specialty Start Date End Date Giana Isbell MD [address] [place] [address] PCP - General Internal Medicine 09/07/18 documented as of this encounter
--- OUTSIDE RECORDS SUMMARY | 2024-04-09 12:42 | XMS_ITS | Encounter Summary ---
Author Organization [employer] Address [address] [facility] 7[address] [place] [address] Care Team Providers Care Talent Acquisition Program Manager Name Role Phone Giana Isbell MD Primary Care Provider [phone] Encounter Details Date Type Department Care Team ([facility] st Contact Info) Description 05/06/2023 Orders Only [facility] CHC MED & PEDS [address] [place] [address] Giana Isbell MD [address] [place] [address] Acquired hypothyroidism (Primary Dx) Social History Tobacco [...] Description 06/11/2024 9:00 AM EDT Office Visit [facility] OPTOMETRY [address] [place], [place] [phone] Morteza, Dawna, OD [address] [place] [address] 06/26/2024 1:30 PM EDT Office Visit [facility] CHC MED & PEDS [address] [place], [place] [phone] Giana Isbell MD [address] [place] [address] documented as of this encounter Procedures Procedure Name Priority Date/Time Associated Diagnosis Comments TSH W/REFLEX TO FT4 Routine 02/06/2024 10:45 AM EST Acquired hypothyroidism documented in this encounter Results * (ABNORMAL) TSH W/Reflex to FT4 (02/06/2024 10:45 AM EST) TSH reflex Free T4 10.06(H) 0.32 - 4.0 uIU/mL [facility] Blood Venous blood specimen / Unknown 02/06/2024 10:45 AM EST 02/06/2024 10:45 AM EST Giana Isbell MD LAB BLOOD ORDERABLES Final Result [facility] [address] [place] [address] [phone] documented in this encounter Visit Diagnoses Diagnosis Acquired hypothyroidism- Primary Unspecified hypothyroidism documented in this encounter Additional Health Concerns Assessment Noted Time PHQ-9 Depression Total Score: 7 07/30/19 23 10:13 AM EDT documented as of this encounter Care Teams Talent Acquisition Program Manager Relationship Specialty Start Date End Date Giana Isbell MD [address] [place] [address] PCP - General Internal Medicine 09/07/18 documented as of this encounter
--- OUTSIDE RECORDS SUMMARY | 2024-04-09 12:42 | XMS_ITS | Clinical Summary ---
Author Organization [employer] Address [address] [facility] 7[address] [place] [address] Care Team Providers Care Counselor Dormitory Name Role Phone Giana Isbell MD Primary [...] AREA(S) TWICE DAILY DIRECTED 56.8 g 1 024 Active dexAMETHasone (Decadron) 2 MG tablet TAKE 1 TABLET BY MOUTH TWICE DAILY START NIGHT BEFORE CHEMOTHERAPY AND 2 DAYS AFTER Active Diclofenac Sodium 1 % gel Apply 4 g topically if needed in the morning, at noon, in the evening, and at bedtime. Left hip Active nystatin-triamcin olone (Mycolog II) cream APPLY [...] if needed each day for heartburn. Active levothyroxine (Synthroid) 125 MCG tabletIndications :Acquired hypothyroidism Take 1 tablet (125 mcg) by mouth before breakfast. 30 tablet 025 2025 Active albuterol (2.5 MG/3ML) 0.083% nebulizer solutionIndicatio ns:SOB (shortness of breath),Bronchopn eumonia Take 3 mL (2.5 mg) by nebulization every 6 (six) hours if needed for wheezing. 75 mL 2025 Active lidocaine (Lidoderm) 5 % patchIndications: Neck [...] cleanup (will not trigger notification to Pharmacy)) Levoxyl 112 MCG tabletIndications :Acquired hypothyroidism Take 1 tablet (112 mcg) by mouth before breakfast. 30 tablet 3 024 2024 Discontinued(T herapy completed) cefuroxime (Ceftin) 500 MG tablet Take 1 tablet by mouth 2 times daily. 025 2024 benzonatate (Tessalon Perles) 100 MG capsuleIndication s:Acute cough,Acquired hypothyroidism Take 1 capsule (100 mg) by mouth if needed in the morning, at noon, and at bedtime for cough for up to 7 days. Do not crush or chew. 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 Closed fracture of tooth 12/16/2023 Pre-diabetes 12/06/2023 Fractured dental nondenominational without loss of mat erial 12/06/2023 Transaminitis [...] diagnostic mammo and breast US, send to [facility] Cervical cancer screening 10/25/2023 Assessment & Plan [...] Encounters Date Type Department Care Team Description 04/02/2024 Telephone [facility] [address] [place] [address] [phone] Giana Isbell MD Medication Question 03/28/2024 9:15 AM EST Office Visit [facility] [address] [place], [place] [phone] Giana Isbell MD Acute cough (Primary Dx); Acquired hypothyroidism; SOB (shortness of breath); Bronchopneumonia 03/28/2024 Travel 03/20/2024 Patient Outreach [facility] [address] [place], [place] [phone] Giana Isbell MD Transition Of Care (Tcm) (HDF scheduled and SDOH screening negative and Tobacco screening negative) 03/19/2024 Patient Outreach [facility] [address] [place] [address] Giana Isbell MD Transition Of Care (Tcm) (HDF unscheduled LVM ) 03/19/2024 Telephone [facility] [address] [place] [address] Giana Isbell MD Hospital Follow-up 03/13/2024 Orders Only GENERIC EXTERNAL DATA DEPARTMENT Provider, Generic External Data 02/24/2024 Telephone [facility] [address] [place] [address] Lou Gonzalez MD 02/23/2024 Telephone [facility] [address] [place], [place] [phone] Giana Isbell MD 02/22/2024 3:30 PM EST Office Visit [facility] [address] [place], [place] [phone] Giana Isbell MD Functional urinary incontinence (Primary Dx); Infiltrating ductal carcinoma of right breast (CMS/HCC) 02/22/2024 Orders Only [facility] External Provider, [facility] 02/22/2024 Travel 02/21/2024 Telephone [facility] [address] [place], [place] [phone] Giana Isbell MD Chart Prep 02/17/2024 Orders Only [facility] Information [address] [phone] Kathi Rollins MD 02/16/2024 Telephone [facility] [address] [place], [place] [phone] Giana Isbell MD Transition Of Care (Tcm) 02/16/2024 Orders Only GENERIC EXTERNAL DATA DEPARTMENT Provider, Generic External Data 02/15/2024 Orders Only GENERIC EXTERNAL DATA DEPARTMENT Provider, Generic External Data 02/10/2024 Orders Only [facility] External Provider, [facility] 02/10/2024 Telephone [facility] [address] [place], [place] [phone] Nicole Paz, RN Results 02/06/2024 Orders Only [facility] [address] [place] [address] Giana Isbell MD Acquired hypothyroidism (Primary Dx) 02/06/2024 Orders Only GENERIC EXTERNAL DATA DEPARTMENT Provider, Generic External Data 02/02/2024 Refill [facility] [address] [place] [address] Giana Isbell MD 01/18/2024 Orders Only GENERIC [...] Mass Index 27.5 03/28/2024 9:16 AM EST Plan of Treatment Upcoming Encounters Date Type Department Care Team (Late st Contact Info) Description 06/11/2024 9:00 AM EDT Office Visit [facility] [address] [place] [address] Morteza, Dawna, OD [address] [place] [address] 06/26/2024 1:30 PM EDT Office Visit [facility] [address] [place] [address] Giana Isbell MD [address] [place] [address] Health Maintenance Due Date Last Done Comments CT Colonography 1965 FIT DNA/Cologuard 1965 FIT 1965 FOBT 1965 HIV Screening 1965 Sigmoidoscopy 1965 Hepatitis A Vaccines (1 of 2 - Risk 2-dose series) 1984 Pneumococcal Vaccine: 50+ Years (1 of 1 - PCV) 06/02/2015 Zoster Vaccines (1 of 2) 06/02/2015 Dental Oral Exam 06/05/2022 12/04/2021, 09/2020, 08/28/2013 Dental Prophylaxis 06/05/2022 12/04/2021, 1 , 02/16/2019, Additional history exists Dental X-Ray: Bitewings 12/05/2022 12/05/19 22, 01/05/2021, 11/13/2020, Additional history exists COVID-19 Vaccine ( season) 2023 11/30/2021, 08/24/2021, 02/03/2021, Additional history exists Influenza Vaccine (#1) 2024 Postp oned from 10/09/2023 (Patient Refused) Depression Monitoring (PHQ-9) 09/25/2024 03/28/2024, 03/28/2024 Diabetes: Hemoglobin A1C 12/05/2024 024, 10/20/2023, 08/27/2021, Additional history exists Tobacco Screening 02/21/2025 02/22/2024 SDOH Screening 03/20/2025 03/20/2024 Alcohol/Substance Use Screening 03/28/2025 03/28/2024 Depression Screening 03/28/2025 03/28/2024, 03/28/19 25 Colonoscopy 12/01/2025 12/02/2015 Colorectal Cancer Screening 12/01/2025 [...] AM EST IR CVC INSERT TUNNEL W PRT/TIEING MACHINE OPERATOR Routine 02/16/2024 7:46 AM EST GLUCOSE, WHOLE [...] TOMOSYNTHESIS RIGHT Routine 01/18/2024 8:00 AM EST PANORAMIC RADIOGRAPHIC IMAGE Routine 12/06/2023 [...] Lactic Acid 1.0 0.5 - 2.0 mmol/L [facility] 03/13/2024 6:39 PM EST 03/13/2024 6:41 PM EST us Generic External Data Provider LAB BLOOD ORDERAB LES Final Result [facility] [address] [place] [phone] * CTA Chest PE Protocal (03/13/2024 4:24 PM EST) Anatomical Region Laterality Modality Body, Chest Computed Tomogra phy 03/13/2024 4:24 PM EST Narrative 03/13/2024 5:03 PM EST ? [facility] ?[address] ?[place] [address] ? CT Scan Report ? Signed ? Patient: Tamia Sánchez,Tory ?MR#: [id number] ?? [id number] ? : 1965 ?Acct:[id number] ? Age/Sex: 58 / F ?ADM Date: 03/13/24 ? Loc: HO.ED ? Attending Dr: ? Ordering Physician: Kristi Bazan ?? Date of Service: 03/13/24 ?? Procedure(s): CT angio chest PE protocol ?? Accession Number(s): [id number] ? cc: Giana Isbell MD; Kristi Bazan ? Report Number: ?? [id number]: Total DLP = ??202.00 mGy-cm ?? EXAMINATION: [...] DD/ 1624 ? TD/TT: 03/13/24 1642 ? Senior Electrical Controls Engineer: ? Procedure Note Eliud Chambers - 03/13/[address] [address] [address] Scan Report Signed Patient: Joshua BushZina#: [id number] : 1965Acct:[id number] Age/Sex: 58 / FADM Date: 03/13/24 Loc: HO.ED Attending Dr: Ordering Physician: Kristi Bazan Date of Service: 03/13/24 Procedure(s): CT angio chest PE protocol Accession Number(s): [id number] cc: Giana Isbell MD; Kristi Bazan Report Number: [id number]: Total DLP = 202.00 mGy-cm EXAMINATION: CT [...] 03/13/24 1700 DD/ 1624 TD/TT: 03/13/24 1642 Senior Electrical Controls Engineer: [employer] External Provider IMG CT PROCEDURES Final Result * High Sensitivity Troponin I (03/13/2024 4:05 PM EST) Only the most recent of2 resultswithin the time period is included. [facility] TROPONIN I HIGH SENSITIVITY 5.8 <3.5 - 17.0 ng/L [facility] Comment:The Dinh high sens itivity Troponin-I results should beused in conjunction with other diagnostic information suchas ECG, clinical observations and information, and patientsymptoms to aid in the diagnosis of MN. 03/13/2024 4:05 PM EST 03/13/2024 4:09 PM EST Generic External Data Provider LAB BLOOD ORDERAB LES Final Result [facility] [address] [place] [phone] * D Dimer High Sensitivity (03/13/2024 2:52 PM EST) [facility] D Dimer High Sensitivity 349 NG/ML [facility] Comment:D-DIMER HS REFERENCE RANGENote: Our [...] Provider LAB BLOOD ORDERAB LES Final Result [facility] [address] [place] [phone] * (ABNORMAL) Complete Blood Count Manual Diff (03/13/2024 2:52 PM EST) White Blood Count 7.5 4.8 - 10.8 X10*3/uL [facility] Red Blood Count 4.75 4.20 - 5.50 X10*6/uL [facility] Hemoglobin 14.2 12.0 - 16.0 g/dl [facility] Hematocrit 41.9 37.0 - 47.0 % [facility] Mean Corpuscular Volume 88.2 80.0 - 98.0 fL [facility] Mean Corpuscular Hemoglobin 29.9 27.0 - 33.0 pg [facility] Mean Corpuscular HGB Conc 33.9 31.0 - 35.0 g/dl [facility] Red Cell Distribution Width 14.5 11.0 - 16.0 % [facility] Platelet Count 148(L) 160 - 400 X10*3/uL [facility] Mean Platelet Volume 9.7 9.4 - 12.3 fL [facility] NRBC Pct Auto 0.0 0.0 - 0.2 /100WBC [facility] NRBC Abs Auto 0.000 0.0 - 0.012 X10*3/uL [facility] Neutrophils % Manual 70 45 - 73 % [facility] Band Neutrophils Percent 2(L) 3 - 5 % [facility] Lymphocytes Percent Manual 26 20 - 40 % [facility] Monocytes Percent Manual 1(L) 2 - 11 % [facility] EOSINOPHILS % MANUAL 1 0 - 4 % [facility] NEUTROPHILS ABSOLUTE MANUAL 5.4 2.0 - 8.3 X10*3/uL [facility] LYMPHOCYTES ABSOLUTE MANUAL 2.0 1.2 - 4.9 X10*3/uL [facility] MONOCYTES ABSOLUTE MANUAL 0.1 0.1 - 1.2 X10*3/uL [facility] EOSINOPHILS ABSOLUTE MANUAL 0.1 0.0 - 0.4 X10*3/uL [facility] Platelet Estimate NORMAL NORMAL [facility] Platelet Morphology Comment NORMAL [facility] RBC Morphology NORMAL [facility] Toxic Granulation PRESENT [facility] Toxic Vacuolation PRESENT [facility] Dohle Bodies PRESENT [facility] 03/13/2024 2:52 PM EST 03/13/2024 3:00 PM EST us Generic External Data Provider LAB BLOOD ORDERAB LES Final Result [facility] [address] [place] [phone] * SARS-CoV-2 RNA, Influenza A/B, and RSV RNA, Ql NAAT (03/13/2024 2:52 PM EST) Influenza A PCR NEGATIVE Negative [facility] Influenza B PCR NEGATIVE Negative [facility] Resp Syncy Virus RNA Qual PCR NEGATIVE Negative [facility] SARS COV2 PCR NEGATIVE Negative [facility] Comment:All test results mus t [...] use by authorized laboratories.Testing performed on the [employer]Xpert utilizingreal-time RT-PCR.All SARS CoV2 and positive influenza A/B results arereported to [facility]. 03/13/2024 2:52 PM EST 03/13/2024 3:00 PM EST us Generic External Data Provider LAB MICROBIOLOGY - GENERAL ORDERABLES Final Result [facility] [address] [place] [address] [phone] * (ABNORMAL) CBC auto differential (03/13/2024 2:52 PM EST) Only the most recent of2 resultswithin the time period is included. White Blood Count 7.5 4.8 - 10.8 X10*3/uL [facility] Red Blood Count 4.75 4.20 - 5.50 X10*6/uL [facility] Hemoglobin 14.2 12.0 - 16.0 g/dl [facility] Hematocrit 41.9 37.0 - 47.0 % [facility] Mean Corpuscular Volume 88.2 80.0 - 98.0 fL [facility] Mean Corpuscular Hemoglobin 29.9 27.0 - 33.0 pg [facility] Mean Corpuscular HGB Conc 33.9 31.0 - 35.0 g/dl [facility] Red Cell Distribution Width 14.5 11.0 - 16.0 % [facility] Platelet Count 148(L) 160 - 400 X10*3/uL [facility] Mean Platelet Volume 9.7 9.4 - 12.3 fL [facility] Neutrophils Percent Auto 76.3(H) 45 - 73 % [facility] Imm Gran Pct Auto 0.3 0.0 - 0.4 % [facility] Lymphocytes Percent Auto 17.8(L) 20 - 40 % [facility] Monocytes Percent Auto 3.3 2 - 11 % [facility] Eosinophils Percent Auto 1.9 0 - 4 % [facility] Basophils Percent Auto 0.4 0 - 2 % [facility] NRBC Pct Auto 0.0 0.0 - 0.2 /100WBC [facility] Neutrophils Absolute Auto 5.8 2.0 - 8.3 x10*3/uL [facility] Imm Gran Abs Auto 0.02 0.00 - 0.03 X10*3/uL [facility] Lymphocytes Absolute Auto 1.3 1.2 - 4.9 X10*3/uL [facility] Monocytes Absolute Auto 0.3 0.1 - 1.2 X10*3/uL [facility] Eosinophils Absolute Auto 0.1 0.0 - 0.4 X10*3/uL [facility] Basophils Absolute Auto 0.0 0.0 - 0.2 X10*3/uL [facility] NRBC Abs Auto 0.000 0.0 - 0.012 X10*3/uL [facility] 03/13/2024 2:52 PM EST 03/13/2024 3:00 PM EST us Generic External Data Provider LAB BLOOD ORDERAB LES Edited Result - Final [facility] [address] [place] [address] [phone] * Prothrombin Time-INR (03/13/2024 2:52 PM EST) Prothrombin Time 11.1 10.9 - 12.4 SEC [facility] INTERNATIONAL NORM RATIO 1.0 0.9 - 1.1 [facility] Comment:INTERNATIONAL NORMAL IZED RATIO (INR) [...] ORDERAB LES Final Result Performing Organization Address [facility] de Phone Number [facility] [address] [place] [phone] * B Type Natriuretic Peptide (BNP) (03/13/2024 2:52 PM EST) [facility] B Type Natriuretic Peptide <10 <100 pg/mL [facility] Comment:For those patients w ho are being treated with Natrecor(nesiritide, recombinant BNP), BNP testing should beperformed at least two hours post treatment in order toensure that only endogenous levels of BNP are detected. 03/13/2024 2:52 PM EST 03/13/2024 3:00 PM EST Generic External Data Provider LAB BLOOD ORDERAB LES Final Result Performing Organization Address [facility] Phone Number [facility] [address] [place] [phone] * Magnesium (03/13/2024 2:52 PM EST) Only the most recent of2 resultswithin the time period is included. [facility] Magnesium 1.9 1.6 - 2.6 mg/dL [facility] 03/13/2024 2:52 PM EST 03/13/2024 3:00 PM EST Generic External Data Provider LAB BLOOD ORDERAB LES Final Result Performing Organization Address [facility] de Phone Number [facility] [address] [place] [phone] * (ABNORMAL) Hepatic Function Panel (03/13/2024 2:52 PM EST) [facility] Bilirubin, Total 0.5 0.0 - 1.0 mg/dL [facility] Bilirubin, Direct 0.1 0.0 - 0.5 mg/dL [facility] Aspartate Amino Transferase 33(H) 5 - 31 U/L [facility] Comment:Slight Hemolysis.Int erpret result with caution. Alanine Aminotransferase 38(H) 0 - 31 U/L [facility] Total Protein 6.7 6.5 - 8.0 g/dL [facility] Albumin Level 3.7 3.5 - 5.0 g/dL [facility] Alkaline Phosphatase 161(H) 39 - 117 U/L [facility] 03/13/2024 2:52 PM EST 03/13/2024 3:00 PM EST us Generic External Data Provider LAB BLOOD ORDERAB LES Final Result [facility] [address] [place] [phone] * (ABNORMAL) Basic Metabolic Panel (03/13/2024 2:52 PM EST) Sodium 140 135 - 145 mmol/L [facility] Potassium 4.0 3.3 - 5.1 mmol/L [facility] Comment:Slight Hemolysis.Int erpret result with caution. Chloride 109(H) 96 - 108 mmol/L [facility] Carbon Dioxide 22 22 - 29 mmol/L [facility] Anion Gap 13 12 - 20 [facility] Urea Nitrogen (BUN) 20(H) 9 - 16 mg/dL [facility] Creatinine, Serum 0.93 0.5 - 1.4 mg/dL [facility] Creatinine Clr Calc Pharmacy 54.5 [facility] Comment:Provided height and weight: 160.02 cm,58.967 kg.eGFR (calculated from the MDRD study equation) and eCrCl(calculated from the Cockcroft-Gault equation) are based ondifferent parameters and may not yield comparable results.If eCrCl result is absurd, please check patient'sheight/weight. Estimated Glomerular Filt Rate >60 [facility] Comment:Chronic Kidney Disea se: Estimated GFR < 60 mL/min/1.62o4Xfixww Kidney Disease: Estimated GFR < 15 mL/min/1.73m2 Glucose 123(H) 60 - 115 mg/dL [facility] Calcium 9.0 8.4 - 10.2 mg/dL [facility] 03/13/2024 2:52 PM EST 03/13/2024 3:00 PM EST us Generic External Data Provider LAB BLOOD ORDERAB LES Final Result [facility] [address] [place] [address] [phone] * XR Chest 1 View (03/13/2024 2:39 PM EST) Anatomical Region Laterality Modality Chest Radiographic Laura ging 03/13/2024 2:39 PM EST Narrative 03/13/2024 3:51 PM EST ? [facility] ?[address] ?[place] [address] ?XRay Report ? Signed ? Patient: Tory Bush ?MR#: [id number] ?? [id number] ? : 1965 ?Acct:[id number] ? Age/Sex: 58 / F ?ADM Date: 03/13/24 ? Loc: HO.ED ? Attending Dr: ? Ordering Physician: Kristi Bazan ?? Date of Service: 03/13/24 ?? Procedure(s): XR chest 1V ?? Accession Number(s): [id number] ? cc: Giana Isbell MD; Kristi Bazan [...] DD/ 1439 ? TD/TT: 03/13/24 1525 ? Senior Electrical Controls Engineer: ? Procedure Note Donotuseinterpreter, Image - 03/13/[address] [address] XRay Report Signed Patient: Pat Bush#: [id number] : 1965Acct:[id number] Age/Sex: 58 / FADM Date: 03/13/24 Loc: HO.ED Attending Dr: Ordering Physician: Kristi Bazan Date of Service: 03/13/24 Procedure(s): XR chest 1V Accession Number(s): [id number] cc: Giana Isbell MD; Kristi Bazan EXAMINATION: [...] 03/13/24 1549 DD/ 1439 TD/TT: 03/13/24 1525 Senior Electrical Controls Engineer: [employer] External Provider IMG XR PROCEDURES Final Result [...] Media Lot # [id number] Lot# Expiration Date 3,416 Urine 02/22/2024 4:33 PM EST us Giana Isbell MD POINT OF CARE TEST ENTER/ED IT ORDERABLES Final Result * BI Mammogram Diagnostic Tomosynthesis Left (02/22/2024 12:55 PM EST) Anatomical Region Laterality Modality Breast Left Mammography 02/22/2024 12:5 5 PM EST Narrative 02/23/2024 9:49 AM EST ? [facility] ?[address] ?[place] [address] ? Mammography Report ? Signed with Addenda ? Patient: Tory Bush ?MR#: [id number] ?? [id number] ? : 1965 ?Acct:[id number] ? Age/Sex: 58 / F ?ADM Date: 01/15/25 ? Loc: HO.MRI ? Attending Dr: Rhona Badillo MD ? Ordering Physician: Rhona Badillo MD ?Results: 1Negati ?? ve ? Date of Service: 01/15/25 ?Follow Up: 1 Year From Orig ?? inal Mammogram ? Procedure(s): MM tomosynthesis diagnostic LT ?? Accession Number(s): [id number] ? cc: Giana Isbell MD; Rhona Badillo [...] Signed By: ?<Electronically signed by Carissa Raza, in OV> ? 02/23/24 0947 ? DD/ 1255 ? TD/TT: 02/22/24 1305 ? Senior Electrical Controls Engineer: ? Procedure Note Donmichelle, Image - 03/02/[address] [address] Mammography Report Signed with Fani Patient: Pat Bush#: [id number] : 1965Acct:[id number] Age/Sex: 58 / FADM Date: 02/22/24 Loc: HO.MRI Attending Dr: Rhona Badillo MD Ordering Physician: Rhona Badillo MDResults: 1Negati ve Date of Service: 02/22/24Follow Up: 1 Year From Orig inal Mammogram Procedure(s): MM tomosynthesis diagnostic LT Accession Number(s): [id number] cc: Giana Isbell MD; Rhona Badillo MD [...] without and with use of gadolinium contrast. Kyte introducer localization system is used with grid. LESION: Left retroareolar lower outer breast anterior depth.. LOCAL ANESTHESIA: 6 mL 1% lidocaine; 4 mL 1% lidocaine with epinephrine. NEEDLE: [employer] 9-gauge vacuum assisted core biopsy device. APPROACH: [...] 02/23/24 0947 DD/ 1255 TD/TT: 02/22/24 1305 Senior Electrical Controls Engineer: [employer] External Provider IMG BI PROCEDURES Edited Result - Final * Hematoxylin and Eosin Stain (02/22/2024 12:27 PM EST) Only the most recent of2 resultswithin the time period is included. 02/22/2024 12:2 7 PM EST 02/22/2024 1:32 PM EST [facility] - 02/24/2024 2:51 PM EST ----- ------- Name: Tory Bush ?Age/Sex: 58/F ? : 1965 Unit#: [id number] ?? Attend Dr: Rhona Badillo MD ?Re02/22/24 ?Status: DEP REF ? Location: HO.MRI ?Disch: ? ----- ------- SPEC : [id number] ?RECD: 02/22/24 ? STATUS: ??SOUT ? REQ NUM: [id number] ? TEQUILA: 02/22/247 ? SUBM DR: Carissa Raza DO ? [...] Copies To: ?? Giana Isbell MD ?? [facility] ?? [address] ?? [place] [address] ?? [phone] ?? Rhona Badillo MD ?? [facility] Oncology/Hematology ?? [address] ?? [place] [address] ?? [phone] ? CONTINUED ON NEXT PAGE ----- ------- Name: Tory Bush ?Age/Sex: 58/F ? : 1965 Unit#: [id number] ?? Attend Dr: Rhona Badillo MD ?Re02/22/24 ?Status: DEP REF ? Location: HO.MRI ?Disch: ? ----- ------- SPEC : [id number] ?RECD: 02/22/24-2 ? STATUS: ??SOUT ? REQ NUM: [id number] ? TEQUILA: 02/22/24-1227 ? SUBM DR: Carissa Raza DO ? ENTERED: ??02/22/24-1 ?SP TYPE: Surgical ? OTHR DR: Giana Isbell MD ?Rhona Badillo MD ORDERED: ??HE Stain/2, Gross Micro L4 ? COMMENTS: As per the specimen requisition slip the specimen is ?collected at 1227 and placed in formalin at 1240. Copies To: ??(Continued) ?? Carissa Raza DO ?? [address] [facility] ?? [place] [address] ?? [phone] ----- ------- Signed (signature on file) Osman Ríos MD 02/24/24 6593 ? ----- ------- ? END OF REPORT ? us Generic External Data Provider LAB BLOOD ORDERAB LES Final Result [facility] [address] [facility] [place] [address] [phone] * BI MR Guided Breast Biopsy Left (02/22/2024 11:14 AM EST) Anatomical Region Laterality Modality Breast Left Magnetic Resonan ce 02/22/2024 11:1 4 AM EST Narrative 02/23/2024 9:50 AM EST ? [facility] ?[address] [facility] ?[place] [address] ? Magnetic Resonance Report ? Signed with Addenda ? Patient: Tory Bush ?MR#: [id number] ?? [id number] ? : 1965 ?Acct:[id number] ? Age/Sex: 58 / F ?ADM Date: 02/22/24 ? Loc: HO.MRI ? Attending Dr: Rhona Badillo MD ? Ordering Physician: Rhona Badillo MD ?? Date of Service: 02/22/24 ?? Procedure(s): MR guided breast biopsy LT ?? Accession Number(s): [id number] ? cc: Giana Isbell MD; Rhona Badillo [...] DD/ 1114 ? TD/TT: 02/22/24 1230 ? Senior Electrical Controls Engineer: ? Procedure Note Donhernanter, Image - 03/02/2024 [place] [address] Magnetic Resonance Report Signed with Addenda Patient: Pat Bush#: [id number] : 1965Acct:[id number] Age/Sex: 58 / FADM Date: 02/22/24 Loc: HO.MRI Attending Dr: Rhona Badillo MD Ordering Physician: Rhona Badillo MD Date of Service: 02/22/24 Procedure(s): MR guided breast biopsy LT Accession Number(s): [id number] cc: Giana Isbell MD; Rhona Badillo MD [...] without and with use of gadolinium contrast. [employer] introducer localization system is used with grid. LESION: Left retroareolar lower outer breast anterior depth.. LOCAL ANESTHESIA: 6 mL 1% lidocaine; 4 mL 1% lidocaine with epinephrine. NEEDLE: [employer] 9-gauge vacuum assisted core biopsy device. APPROACH: [...] 02/23/24 0947 DD/ 1114 TD/TT: 02/22/24 1230 Senior Electrical Controls Engineer: [employer] External Provider IMG MRI PROCEDURES Edited Result - Final * IR cvc insert tunnel w prt/rail project engineer (02/16/2024 7:46 AM EST) Anatomical Region Laterality Modality X-Ray Angiograph y 02/16/2024 7:46 AM EST Narrative 02/24/2024 2:22 PM EST ? [facility] ?[address] ?[place] [address] ?Interventional Radiology Rpt ? Signed ? Patient: Tamia Sánchez,Tory ?MR#: [id number] ?? [id number] ? : 1965 ?Acct:[id number] ? Age/Sex: 58 / F ?ADM Date: 02/16/24 ? Loc: HO.SSS ? Attending Dr: Rhona Badillo MD ? Ordering Physician: Rhona Badillo MD ?? Date of Service: 02/16/24 ?? Procedure(s): IR cvc insert tunnel w prt/rail project engineer ?? Accession Number(s): [id number] ? cc: Giana Isbell MD; Rhona Badillo [...] records. ?? 2. Placement of a 6.6 Maltese single-lumen power port. ? CLINICIAN: ?? Fortino [...] site. Through the peel-away sheath, the 6.6 Maltese port catheter was ?? placed. The catheter [...] vein ?? 2. Placement of a 6.6 Maltese single lumen power port. ?? 3. Port flushes and aspirates very well with a 10 mL syringe. No ?? pneumothorax. ? IR/IR cvc insert tunnel w prt/rail project engineer ?? IMPRESSION: ?? Placement of a 6.6 Maltese single-lumen power port. ? PLAN: ?? - [...] DD/ 0746 ? TD/TT: 02/16/24 0934 ? Senior Electrical Controls Engineer: ? Procedure Note Trish, Image - 02/24/[address] [place] [address] Interventional Radiology Rpt Signed Patient: Pat Bush#: [id number] : 1965Acct:[id number] Age/Sex: 58 / FADM Date: 02/16/24 Loc: .SSS Attending Dr: Rhona Badillo MD Ordering Physician: Rhona Badillo MD Date of Service: 02/16/24 Procedure(s): IR cvc insert tunnel w prt/rail project engineer Accession Number(s): [id number] cc: Giana Isbell MD; Rhona Badillo MD CLINICAL HISTORY: Right breast cancer. The patient presents to interventional radiology for placement of a port for chemotherapy. PROCEDURES: 1. Real-time ultrasound-guided access into the left internal jugular vein after documentation of selected vessel patency, and permanent image storing in the patient records. 2. Placement of a 6.6 Maltese single-lumen power port. CLINICIAN: Fortino Muniz PA-C [...] site. Through the peel-away sheath, the 6.6 Maltese port catheter was placed. The catheter position [...] jugular vein 2. Placement of a 6.6 Maltese single lumen power port. 3. Port flushes and aspirates very well with a 10 mL syringe. No pneumothorax. IR/IR cvc insert tunnel w prt/rail project engineer IMPRESSION: Placement of a 6.6 Maltese single-lumen power port. PLAN: - The patient [...] 02/24/24 1421 DD/ 0746 TD/TT: 02/16/24 0934 Senior Electrical Controls Engineer: us [facility] External Provider IMG IR PROCEDURES Edited Result - Final * (ABNORMAL) Glucose, Whole Blood (02/16/2024 7:06 AM EST) Glucose, Whole Blood 142(H) 60 - 115 mg/dL [facility] Comment:METER #: [id number] 02/16/2024 7:06 AM EST 02/16/2024 7:11 AM EST us Generic External Data Provider LAB BLOOD ORDERAB LES Final Result Performing Organization Address City/[facility]/ZIP Co de Phone Number [facility] [address] [place] [address] [phone] * (ABNORMAL) Comprehensive Metabolic Panel (02/15/2024 2:03 PM EST) Sodium 145 135 - 145 mmol/L [facility] Potassium 4.2 3.3 - 5.1 mmol/L [facility] Chloride 109(H) 96 - 108 mmol/L [facility] Carbon Dioxide 28 22 - 29 mmol/L [facility] Anion Gap 12 12 - 20 [facility] Urea Nitrogen (BUN) 14 9 - 16 mg/dL [facility] Creatinine, Serum 0.89 0.5 - 1.4 mg/dL [facility] Estimated Glomerular Filt Rate >60 [facility] Comment:Chronic Kidney Disea se: Estimated GFR < 60 mL/min/1.99t1Forpig Kidney Disease: Estimated GFR < 15 mL/min/1.73m2 Glucose 94 60 - 115 mg/dL [facility] Calcium 8.9 8.4 - 10.2 mg/dL [facility] Bilirubin, Total 0.4 0.0 - 1.0 mg/dL [facility] Aspartate Amino Transferase 36(H) 5 - 31 U/L [facility] Alanine Aminotransferase 33(H) 0 - 31 U/L [facility] Total Protein 7.1 6.5 - 8.0 g/dL [facility] Albumin Level 4.2 3.5 - 5.0 g/dL [facility] Alkaline Phosphatase 122(H) 39 - 117 U/L [facility] 02/15/2024 2:03 PM EST 02/15/2024 2:03 PM EST us Generic External Data Provider LAB BLOOD ORDERAB LES Final Result Performing Organization Address City/[facility]/ZIP Co de Phone Number [facility] [address] [place] [address] [phone] * BI US Breast Limited Left (02/10/2024 12:15 PM EST) Anatomical Region Laterality Modality Breast Left Ultrasound 02/10/2024 12:1 5 PM EST Narrative 02/10/2024 3:42 PM EST ? [facility] ? [address] ?[place] [address] ? Ultrasound Report ? Signed ? Patient: Tamia Tory Sánchez ?MR#: [id number] ?? [id number] ? : 1965 ?Acct:[id number] ? Age/Sex: 58 / F ?ADM Date: 02/10/24 ? Loc: HO.MAMMO ? Attending Dr: Rhona Badillo MD ? Ordering Physician: Rhona Badillo MD ?? Date of Service: 02/10/24 ?? Procedure(s): US breast LT limited mamm only ?? Accession Number(s): [id number] ? cc: Giana Isbell MD; Rhona Badillo [...] ??Carissa Raza DO ??02/10/2024 03:39 PM EST ? Dictated By: ?Carissa Raza DO ? Signed By: ?<Electronically signed by Carissa Raza, DO in OV> ? 02/10/24 1539 ? DD/ 1215 ? TD/TT: 02/10/24 1231 ? Senior Electrical Controls Engineer: ? Procedure Note Dondanutanitoter, Image - [facility] [address] [place] [address] Ultrasound Report Signed Patient: Pat Bush#: [id number] : 1965Acct:[id number] Age/Sex: 58 / FADM Date: 02/10/24 Loc: HO.MAMMO Attending Dr: Rhona Badillo MD Ordering Physician: Rhona Badillo MD Date of Service: 02/10/24 Procedure(s): US breast LT limited mamm only Accession Number(s): [id number] cc: Giana Isbell MD; Rhona Badillo MD [...] 02/10/24 1539 DD/ 1215 TD/TT: 02/10/24 1231 Senior Electrical Controls Engineer: [employer] External Provider IMG US PROCEDURES Edited Result - Final * (ABNORMAL) TSH W/Reflex to FT4 (02/06/2024 10:45 AM EST) TSH reflex Free T4 10.06(H) 0.32 - 4.0 uIU/mL [facility] Blood Venous blood specimen / Unknown 02/06/2024 10:45 AM EST 02/06/2024 10:45 AM EST Giana Isbell MD LAB BLOOD ORDERABLES Final Result [facility] [address] [place] [phone] * (ABNORMAL) T4, Free (02/06/2024 10:45 AM EST) Free T4 (Free Thyroxine) 0.68(L) 0.71 - 1.85 ng/dL [facility] 02/06/2024 10:4 5 AM EST 02/06/2024 10:45 AM EST us Generic External Data Provider LAB BLOOD ORDERAB LES Final Result [facility] [address] [place] [address] [phone] * BI MR Breast w and w/o Contrast Bilateral (02/06/2024 9:33 AM EST) Anatomical Region Laterality Modality Breast Bilateral Magnetic Resonan ce 02/06/2024 9:33 AM EST Narrative 02/10/2024 3:39 PM EST ? [facility] ?[address] ?[place] [address] ? Magnetic Resonance Report ? Signed with Addenda ? Patient: Tory Bush ?MR#: [id number] ?? [id number] ? : 1965 ?Acct:[id number] ? Age/Sex: 58 / F ?ADM Date: 02/06/24 ? Loc: HO.MRI ? Attending Dr: Pardeep Marcos MD ? Ordering Physician: Pardeep Marcos MD ?? Date of Service: 02/06/24 ?? Procedure(s): MR breast BI wo/w con ?? Accession Number(s): [id number] ? cc: Giana Isbell MD; Pardeep Marcos [...] DD/ 0933 ? TD/TT: 02/06/24 1016 ? Senior Electrical Controls Engineer: ? Procedure Note Trish, Image - 02/13/[address] [address] Magnetic Resonance Report Signed with Fani Patient: Pat Bush#: [id number] : 1965Acct:[id number] Age/Sex: 58 / FADM Date: 02/06/24 Loc: HO.MRI Attending Dr: Pardeep Marcos MD Ordering Physician: Pardeep Marcos MD Date of Service: 02/06/24 Procedure(s): MR breast BI wo/w con Accession Number(s): [id number] cc: Giana Isbell MD; Pardeep Marcos MD [...] 02/10/24 1536 DD/ 0933 TD/TT: 02/06/24 1016 Senior Electrical Controls Engineer: [employer] External Provider IMG MRI PROCEDURES Edited Result - Final * Surgical Pathology (01/18/2024 9:43 AM EST) us Historical Provider MD LAB PATHOLOGY ORDERABLES Final Result * US BREAST NDL CORE BIOPSY RT (01/18/2024 8:00 AM EST) Anatomical Region Laterality Modality Abdomen Ultrasound 01/18/2024 8:00 AM EST Narrative 01/18/2024 9:40 AM EST ? [facility] [place] ? [address] [place] [address] ? Ultrasound Report ? Signed with Addenda ? Patient: Tasha Bushtza ?MR#: [id number] ?? [id number] ? : 1965 ?Acct:[id number] ? Age/Sex: 58 / F ?ADM Date: 01/18/24 ? Loc: HO.MAMMO ? Attending Dr: Pardeep Marcos MD ? Ordering Physician: Pardeep Marcos MD ?? Date of Service: 01/18/24 ?? Procedure(s): US breast ndl core biopsy RT ?? Accession Number(s): [id number] ? cc: Giana Isbell MD; Pardeep Marcos [...] DD/ 0800 ? TD/TT: 01/18/24 0835 ? Senior Electrical Controls Engineer: ? Procedure Note Eliud Chambers - 01/25/2024 [facility] [address] [place], [place] [address] Ultrasound Report Signed with Addenda Patient: Tasha BushKhang#: [id number] : 1965Acct:[id number] Age/Sex: 58 / FADM Date: 01/18/24 Loc: HO.MAMMO Attending Dr: Pardeep Marcos MD Ordering Physician: Pardeep Mracos MD Date of Service: 01/18/24 Procedure(s): US breast ndl core biopsy RT Accession Number(s): [id number] cc: Giana Isbell MD; Pardeep Marcos MD [...] OV> 01/18/2437 DD/ 0800 TD/TT: 01/18/24 0835 Senior Electrical Controls Engineer: [employer] External Provider IMG US PROCEDURES Edited Result - Final * BI Mammogram Diagnostic Tomosynthesis Right (01/18/2024 8:00 AM EST) Anatomical Region Laterality Modality Breast Right Mammography 01/18/2024 8:00 AM EST Narrative 01/18/2024 9:40 AM EST ? [facility] [place] ? [address] ?[place] [address] ? Mammography Report ? Signed with Addenda ? Patient: Tory Bush ?MR#: [id number] ?? [id number] ? : 1965 ?Acct:[id number] ? Age/Sex: 58 / F ?ADM Date: 12/11/24 ? Loc: HO.MAMMO ? Attending Dr: Pardeep Marcos MD ? Ordering Physician: Pardeep Marcos MD ?Results: ? Date of Service: 01/18/24 ?Follow Up: ? Procedure(s): MM tomosynthesis diagnostic RT ?? Accession Number(s): [id number] ? cc: Giana Isbell MD; Pardeep Marcos [...] DD/ 0800 ? TD/TT: 01/18/24 0835 ? Senior Electrical Controls Engineer: ? Procedure Note Trish, Image - 01/25/2024 [place] [facility] [address] [place] [address] Mammography Report Signed with Fani Patient: Pat Bush#: [id number] : 1965Acct:[id number] Age/Sex: 58 / FADM Date: 01/18/24 Loc: ADELITA Attending Dr: Pardeep Marcos MD Ordering Physician: Pardeep Marcosults: Date of Service: 01/18/24Follow Up: Procedure(s): MM tomosynthesis diagnostic RT Accession Number(s): [id number] cc: Giana Isbell MD; Pardeep Marcos MD [...] OV> 01/18/2437 DD/ 0800 TD/TT: 01/18/24 0835 Senior Electrical Controls Engineer: [employer] External Provider IMG BI PROCEDURES Edited Result - Final * (ABNORMAL) POCT HGB A1C (12/06/2023 11:41 AM EDT) Hemoglobin A1C 6.2(A) 4.0 - 6.0 % QC Media Lot # [id number] Lot# Expiration Date Blood 12/06/2023 11:4 1 AM EDT Giana Isbell MD POINT OF CARE TEST ENTER/ED IT ORDERABLES Final Result * ThinPrep Imaging Pap and HPV mRNA E6/E7 (10/25/2023 12:00 AM EDT) HPV nRNA E6/E7 Not Detected Not Detected [facility] Comment:Methodology: Transcr iption-Mediated AmplificationThis assay detects E6/E7 viral messenger RNA (mRNA) from 14high-risk HPV types (16,18,31,33,35,39,45,51,52,56,58,59,66,68).Cervical sources are required for HPV testing.If a vaginal source from a patient who has had atotal hysterectomy with removal of cervix wassubmitted, please contact the testing laboratoryfor alternative testing options.For additional information, please refer tohttp://education.[employer]/faq/KCX263d5(This link if provided for information/educational purposes only.)THIS TEST WAS PERFORMED AT:[facility])[address] [place] [phone] FISCHER MD SOURCE: SEE NOTE [facility] Comment:None given Report Status: TNP [facility] Clinical Information: SEE NOTE [facility] Comment:None given LMP: SEE NOTE [facility] Comment:NONE GIVEN Prev. PAP: SEE NOTE [facility] Comment:NONE GIVEN Prev. BX: SEE NOTE [facility] Comment:NONE GIVEN Statement Of Adequacy: SEE NOTE [facility] Comment:Satisfactory for tiffany luation.Endocervical/transformation zone componentpresent. General Categorization: [facility] Interpretation/Result: SEE NOTE [facility] Comment:Cytology Results: Ne gative for intraepitheliallesion or malignancy. Cytology Comment SEE NOTE [facility] Comment:This Pap test has be en evaluated with computerassisted technology. Health Sciences Dean: SEE NOTE [facility] Comment:YP, CT(ASCP)CT joshuae gino location: [place] [address] Review Health Sciences Dean: [facility] Pathologist [facility] PAP Infection [facility] See Note SEE NOTE [facility] Comment:EXPLANATORY NOTE:The Pap is a screening test for cervical cancer. It isnot a diagnostic test and is subject to false negativeand false positive results. It is most reliable when asatisfactory sample, regularly obtained, is submittedwith relevant clinical findings and history, and whenthe Pap result is evaluated along with historic andcurrent clinical information. 10/25/2023 10/25/2023 Narrative [facility] - 11/01/2023 12:30 PM EDT SEE SCANNED RESULTS IN EMR us Lou Gonzalez MD LAB PATHOLOGY ORDERABLES Ashlyn l Result [facility] [address] [place] [phone] * Hepatitis Panel, General (01/13/2023 9:50 AM EST) Hepatitis A IgM Nonreactive Nonreactive [facility] Comment:IgM antibodies to RUELAS V not detected; does not exclude earlyacute or recovered HAV infection. ~Hepatitis B Surface Antibody NONREACTIVE Nonreactive [facility] Comment:Nonreactive: < 8.00 mIU/mL Hepatitis B Core Antibody Nonreactive Nonreactive [facility] Hepatitis C Antibody Nonreactive Nonreactive [facility] Comment:Antibodies to HCV no t detected; does not exclude early acuteHCV infection. Hepatitis B Surface Ag Negative Negative [facility] 01/13/2023 9:50 AM EST 01/13/2023 9:52 AM EST us Generic External Data Provider LAB BLOOD ORDERAB LES Final Result [facility] [address] [place] [phone] * (ABNORMAL) LIPID PANEL, STANDARD (08/04/2021 [...] ?? Esteban JACOBS et al. NIC. 2013;310(19): 6906-8701 ?? (http://education.[employer]/faq/BZE059) Non-HDL Cholesterol 188(H) <130 mg/dL (calc) [facility] Comment: For patients with diabetes plus 1 major ASCVD risk ?? factor, treating to a non-HDL-C goal of <100 mg/dL ?? (LDL-C of <70 mg/dL) is considered a therapeutic ?? option. Triglycerides 189(H) <150 mg/dL [facility] 08/04/2021 9:06 AM EDT Giana Isbell MD LAB BLOOD ORDERABLES Final Result [facility] [address] * Hm Colonoscopy (12/02/2015) Colonoscopy Normal Normal Narrative Lily Sanchez - 12/02/2015 Recommended 10 year follow up Historical Provider HEALTH MAINTENANCE Final Result from Last 3 Months or Most Recently Relevant to Health Maintenance Insurance - [facility] - [facility] Care Teams Counselor Dormitory Relationship Specialty Start Date End Date Giana Isbell MD [address] [place] [address] PCP - General Internal Medicine 09/07/18
--- OUTSIDE RECORDS SUMMARY | 2024-04-09 12:42 | XMS_ITS | Encounter Summary ---
Author Organization [employer] Address [address] [place] [address] Care Team Providers Care Motor Equipment Captain Name Role Phone Giana Isbell MD Primary Care Provider [phone] Encounter Details Date Type Department Care Team ([facility] Contact Info) Description 02/17/2024 Orders Only [facility] [address] [place] [address] Provider, MD Kathi Social History Tobacco Use [...] Description 06/11/2024 9:00 AM EDT Office Visit [facility] OPT[facility] [address] [place] [address] MortezaDawna, OD [address] [place] [address] 06/26/2024 1:30 PM EDT Office Visit [facility] PED[facility] [address], [place] [phone] Giana Isbell MD [address] [place], [place] [phone] documented as of this encounter Procedures Procedure [...] documented as of this encounter Care Teams Motor Equipment Captain Relationship Specialty Start Date End Date Giana Isbell MD [address] [place] [address] PCP - General Internal Medicine 09/07/18 documented as of this encounter
--- OUTSIDE RECORDS SUMMARY | 2024-04-09 12:42 | XMS_ITS | Encounter Summary ---
Author Organization [employer] Address [address] [facility] 7t [place] [address] Care Team Providers Care Mask Designer Name Role Phone Giana Isbell MD Primary Care Provider [phone] Encounter Details Date Type Department Care Team [...] Description 06/11/2024 9:00 AM EDT Office Visit [facility] OPTOMETRY [address] [place] [address] Dawna Pro, OD [address] [place] [address] 06/26/2024 1:30 PM EDT Office Visit [facility] CHC MED & PEDS [address] [place], [place] [phone] Giana Isblel MD [address] [place], [place] [phone] documented as of this encounter Procedures Procedure [...] Lactic Acid 1.0 0.5 - 2.0 mmol/L [facility] 03/13/2024 6:39 PM EST 03/13/2024 6:41 PM EST us Generic External Data Provider LAB BLOOD ORDERAB LES Final Result Performing Organization Address [facility]/State/[facility] Co de Phone Number [facility] [address] [place] [address] [phone] * CTA Chest PE Protocal (03/13/2024 4:24 PM EST) Anatomical Region Laterality Modality Body, Chest Computed Tomogra phy 03/13/2024 4:24 PM EST Narrative 03/13/2024 5:03 PM EST ? [facility] ?[address] ?[place] [address] ? CT Scan Report ? Signed ? Patient: Tamia Sánchez,Tory ?MR#: [id number] ?? [id number] ? : 1965 ?Acct:[id number] ? Age/Sex: 58 / F ?ADM Date: 02/04/25 ? Loc: HO.ED ? Attending Dr: ? Ordering Physician: Kristi Bazan ?? Date of Service: 03/13/24 ?? Procedure(s): CT angio chest PE protocol ?? Accession Number(s): [id number] ? cc: Giana Isbell MD; Kristi Bazan ? Report Number: ?? [id number]: Total DLP = ??202.00 mGy-cm ?? EXAMINATION: [...] DD/ 1624 ? TD/TT: 03/13/24 1642 ? Expediter: ? Procedure Note Trish, Image - 03/13/[address] [place] [address] [address] Scan Report Signed Patient: Pat Bush#: [id number] : 1965Acct:[id number] Age/Sex: 58 / FADM Date: 03/13/24 Loc: HO.ED Attending Dr: Ordering Physician: Kristi Bazan Date of Service: 03/13/24 Procedure(s): CT angio chest PE protocol Accession Number(s): [id number] cc: Giana Isbell MD; Kristi Bazan Report Number: [id number]: Total DLP = 202.00 mGy-cm EXAMINATION: CT [...] by: Ant Cole MD 03/13/2024 05:00 PM [facility] Dictated By: Ant Cole MD Signed By: <Electronically signed by Ant Cole MD in OV> 03/13/24 1700 DD/ 1624 TD/TT: 03/13/24 1642 Expediter: [facility] External Provider IMG CT PROCEDURES Final Result * High Sensitivity Troponin I (03/13/2024 4:05 PM EST) [facility] TROPONIN I HIGH SENSITIVITY 5.8 <3.5 - 17.0 ng/L [facility] Comment:The Dinh high sens itivity Troponin-I results should beused in conjunction with other diagnostic information suchas ECG, clinical observations and information, and patientsymptoms to aid in the diagnosis of CO. 03/13/2024 4:05 PM EST 03/13/2024 4:09 PM EST Generic External Data Provider LAB BLOOD ORDERAB LES Final Result Performing Organization Address [facility] Co de Phone Number [facility] [address] [place] [phone] * Magnesium (03/13/2024 2:52 PM EST) [facility] Magnesium 1.9 1.6 - 2.6 mg/dL [facility] 03/13/2024 2:52 PM EST 03/13/2024 3:00 PM EST Generic External Data Provider LAB BLOOD ORDERAB LES Final Result Performing Organization Address [facility]/[place] de Phone Number [facility] [address] [place] [phone] * (ABNORMAL) Basic Metabolic Panel (03/13/2024 2:52 PM EST) [facility] Sodium 140 135 - 145 mmol/L [facility] Potassium 4.0 3.3 - 5.1 mmol/L [facility] Comment:Slight Hemolysis.Int erpret result with caution. Chloride 109(H) 96 - 108 mmol/L [facility] Carbon Dioxide 22 22 - 29 mmol/L [facility] Anion Gap 13 12 - 20 [facility] Urea Nitrogen (BUN) 20(H) 9 - 16 mg/dL [facility] Creatinine, Serum 0.93 0.5 - 1.4 mg/dL [facility] Creatinine Clr Calc Pharmacy 54.5 [facility] Comment:Provided height and weight: 160.02 cm,58.967 kg.eGFR (calculated from the MDRD study equation) and eCrCl(calculated from the Cockcroft-Gault equation) are based ondifferent parameters and may not yield comparable results.If eCrCl result is absurd, please check patient'sheight/weight. Estimated Glomerular Filt Rate >60 [facility] Comment:Chronic Kidney Disea se: Estimated GFR < 60 mL/min/1.49x3Xhnsho Kidney Disease: Estimated GFR < 15 mL/min/1.73m2 Glucose 123(H) 60 - 115 mg/dL [facility] Calcium 9.0 8.4 - 10.2 mg/dL [facility] 03/13/2024 2:52 PM EST 03/13/2024 3:00 PM EST us Generic External Data Provider LAB BLOOD ORDERAB LES Final Result [facility] [address] [place] [phone] * (ABNORMAL) Hepatic Function Panel (03/13/2024 2:52 PM EST) Bilirubin, Total 0.5 0.0 - 1.0 mg/dL [facility] Bilirubin, Direct 0.1 0.0 - 0.5 mg/dL [facility] Aspartate Amino Transferase 33(H) 5 - 31 U/L [facility] Comment:Slight Hemolysis.Int erpret result with caution. Alanine Aminotransferase 38(H) 0 - 31 U/L [facility] Total Protein 6.7 6.5 - 8.0 g/dL [facility] Albumin Level 3.7 3.5 - 5.0 g/dL [facility] Alkaline Phosphatase 161(H) 39 - 117 U/L [facility] 03/13/2024 2:52 PM EST 03/13/2024 3:00 PM EST Generic External Data Provider LAB BLOOD ORDERAB LES Final Result Performing Organization Address [facility] Co de Phone Number [facility] [address] [place] [phone] * SARS-CoV-2 RNA, Influenza A/B, and RSV RNA, Ql NAAT (03/13/2024 2:52 PM EST) [facility] Influenza A PCR NEGATIVE Negative [facility] Influenza B PCR NEGATIVE Negative [facility] Resp Syncy Virus RNA Qual PCR NEGATIVE Negative [facility] SARS COV2 PCR NEGATIVE Negative [facility] Comment:All test results mus t [...] use by authorized laboratories.Testing performed on the [employer] GeneXpert utilizingreal-time RT-PCR.All SARS CoV2 and positive influenza A/B results arereported to [facility]. 03/13/2024 2:52 PM EST 03/13/2024 3:00 PM EST Generic External Data Provider LAB MICROBIOLOGY - GENERAL ORDERABLES Final Result Performing Organization Address [facility]/ZIP Co de Phone Number [facility] [address] [place] [phone] * High Sensitivity Troponin I (03/13/2024 2:52 PM EST) [facility] TROPONIN I HIGH SENSITIVITY 6.2 <3.5 - 17.0 ng/L [facility] Comment:The Dinh high sens itivity Troponin-I results should beused in conjunction with other diagnostic information suchas ECG, clinical observations and information, and patientsymptoms to aid in the diagnosis of CO. 03/13/2024 2:52 PM EST 03/13/2024 3:00 PM EST Generic External Data Provider LAB BLOOD ORDERAB LES Final Result Performing Organization Address [facility] Phone Number [facility] [address] [place] [phone] * B Type Natriuretic Peptide (BNP) (03/13/2024 2:52 PM EST) [facility] B Type Natriuretic Peptide <10 <100 pg/mL [facility] Comment:For those patients w ho are being treated with Natrecor(nesiritide, recombinant BNP), BNP testing should beperformed at least two hours post treatment in order toensure that only endogenous levels of BNP are detected. 03/13/2024 2:52 PM EST 03/13/2024 3:00 PM EST Generic External Data Provider LAB BLOOD ORDERAB LES Final Result Performing Organization Address [facility] [address] [place] [phone] * D Dimer High Sensitivity (03/13/2024 2:52 PM EST) [facility] D Dimer High Sensitivity 349 NG/ML [facility] Comment:D-DIMER HS REFERENCE RANGENote: Our [...] ORDERAB LES Final Result Performing Organization Address [facility] Co de Phone Number [facility] [address] [place] [phone] * Prothrombin Time-INR (03/13/2024 2:52 PM EST) [facility] Prothrombin Time 11.1 10.9 - 12.4 SEC [facility] INTERNATIONAL NORM RATIO 1.0 0.9 - 1.1 [facility] Comment:INTERNATIONAL NORMAL IZED RATIO (INR) [...] 2:52 PM EST 03/13/2024 3:00 PM EST [employer] External Data Provider LAB BLOOD ORDERAB LES Final Result Performing Organization Address [facility]/[place] de Phone Number [facility] [address] [place] [phone] * (ABNORMAL) Complete Blood Count Manual Diff (03/13/2024 2:52 PM EST) [facility] White Blood Count 7.5 4.8 - 10.8 X10*3/uL [facility] Red Blood Count 4.75 4.20 - 5.50 X10*6/uL [facility] Hemoglobin 14.2 12.0 - 16.0 g/dl [facility] Hematocrit 41.9 37.0 - 47.0 % [facility] Mean Corpuscular Volume 88.2 80.0 - 98.0 fL [facility] Mean Corpuscular Hemoglobin 29.9 27.0 - 33.0 pg [facility] Mean Corpuscular HGB Conc 33.9 31.0 - 35.0 g/dl [facility] Red Cell Distribution Width 14.5 11.0 - 16.0 % [facility] Platelet Count 148(L) 160 - 400 X10*3/uL [facility] Mean Platelet Volume 9.7 9.4 - 12.3 fL [facility] NRBC Pct Auto 0.0 0.0 - 0.2 /100WBC [facility] NRBC Abs Auto 0.000 0.0 - 0.012 X10*3/uL [facility] Neutrophils % Manual 70 45 - 73 % [facility] Band Neutrophils Percent 2(L) 3 - 5 % [facility] Lymphocytes Percent Manual 26 20 - 40 % [facility] Monocytes Percent Manual 1(L) 2 - 11 % [facility] EOSINOPHILS % MANUAL 1 0 - 4 % [facility] NEUTROPHILS ABSOLUTE MANUAL 5.4 2.0 - 8.3 X10*3/uL [facility] LYMPHOCYTES ABSOLUTE MANUAL 2.0 1.2 - 4.9 X10*3/uL [facility] MONOCYTES ABSOLUTE MANUAL 0.1 0.1 - 1.2 X10*3/uL [facility] EOSINOPHILS ABSOLUTE MANUAL 0.1 0.0 - 0.4 X10*3/uL [facility] Platelet Estimate NORMAL NORMAL [facility] Platelet Morphology Comment NORMAL [facility] RBC Morphology NORMAL [facility] Toxic Granulation PRESENT [facility] Toxic Vacuolation PRESENT [facility] Dohle Bodies PRESENT [facility] 03/13/2024 2:52 PM EST 03/13/2024 3:00 PM EST us Generic External Data Provider LAB BLOOD ORDERAB LES Final Result [facility] [address] [place] [phone] * (ABNORMAL) CBC auto differential (03/13/2024 2:52 PM EST) White Blood Count 7.5 4.8 - 10.8 X10*3/uL [facility] Red Blood Count 4.75 4.20 - 5.50 X10*6/uL [facility] Hemoglobin 14.2 12.0 - 16.0 g/dl [facility] Hematocrit 41.9 37.0 - 47.0 % [facility] Mean Corpuscular Volume 88.2 80.0 - 98.0 fL [facility] Mean Corpuscular Hemoglobin 29.9 27.0 - 33.0 pg [facility] Mean Corpuscular HGB Conc 33.9 31.0 - 35.0 g/dl [facility] Red Cell Distribution Width 14.5 11.0 - 16.0 % [facility] Platelet Count 148(L) 160 - 400 X10*3/uL [facility] Mean Platelet Volume 9.7 9.4 - 12.3 fL [facility] Neutrophils Percent Auto 76.3(H) 45 - 73 % [facility] Imm Gran Pct Auto 0.3 0.0 - 0.4 % [facility] Lymphocytes Percent Auto 17.8(L) 20 - 40 % [facility] Monocytes Percent Auto 3.3 2 - 11 % [facility] Eosinophils Percent Auto 1.9 0 - 4 % [facility] Basophils Percent Auto 0.4 0 - 2 % [facility] NRBC Pct Auto 0.0 0.0 - 0.2 /100WBC [facility] Neutrophils Absolute Auto 5.8 2.0 - 8.3 x10*3/uL [facility] Imm Gran Abs Auto 0.02 0.00 - 0.03 X10*3/uL [facility] Lymphocytes Absolute Auto 1.3 1.2 - 4.9 X10*3/uL [facility] Monocytes Absolute Auto 0.3 0.1 - 1.2 X10*3/uL [facility] Eosinophils Absolute Auto 0.1 0.0 - 0.4 X10*3/uL [facility] Basophils Absolute Auto 0.0 0.0 - 0.2 X10*3/uL [facility] NRBC Abs Auto 0.000 0.0 - 0.012 X10*3/uL [facility] 03/13/2024 2:52 PM EST 03/13/2024 3:00 PM EST us Generic External Data Provider LAB BLOOD ORDERAB LES Edited Result - Final [facility] [address] [place] [phone] * XR Chest 1 View (03/13/2024 2:39 PM EST) Anatomical Region Laterality Modality Chest Radiographic Laura ging 03/13/2024 2:39 PM EST Narrative 03/13/2024 3:51 PM EST ? [facility] ?[address] ?[place] [address] ?XRay Report ? Signed ? Patient: Tory Bush ?MR#: [id number] ?? [id number] ? : 1965 ?Acct:[id number] ? Age/Sex: 58 / F ?ADM Date: 03/13/24 ? Loc: HO.ED ? Attending Dr: ? Ordering Physician: Kristi Bazan ?? Date of Service: 03/13/24 ?? Procedure(s): XR chest 1V ?? Accession Number(s): [id number] ? cc: Giana Isbell MD; Kristi Bazan [...] DD/ 1439 ? TD/TT: 03/13/24 1525 ? Expediter: ? Procedure Note Donotuseinterpreter, Image - 03/13/[address] [address] XRay Report Signed Patient: Pat Bush#: [id number] : 1965Acct:[id number] Age/Sex: 58 / FADM Date: 03/13/24 Loc: HO.ED Attending Dr: Ordering Physician: Kristi Bazan Date of Service: 03/13/24 Procedure(s): XR chest 1V Accession Number(s): [id number] cc: Giana Isbell MD; Kristi Bazan EXAMINATION: [...] 03/13/24 1549 DD/ 1439 TD/TT: 03/13/24 1525 Expediter: [facility] External Provider IMG XR PROCEDURES Final Result documented in this encounter Visit Diagnoses Not on filedocumented in this encounter Additional Health Concerns Assessment Noted Time PHQ-9 Depression Total Score: 7 07/30/19 23 10:13 AM EDT documented as of this encounter Care Teams Mask Designer Relationship Specialty Start Date End Date Giana Isbell MD [address] [place] [phone] PCP - General Internal Medicine 09/07/18 documented as of this encounter
--- OUTSIDE RECORDS SUMMARY | 2024-04-09 12:42 | XMS_ITS | Encounter Summary ---
Author Organization [employer] Address [address] [facility] [address] [place] [address] Care Team Providers Care Auto Camp Attendant Name Role Phone Giana Isbell MD Primary Care Provider [phone] Reason for Visit * Reason Onset Date Comments Nurse Triage 08/02/2023 Encounter Details Date Type Department Care Team ([facility] Contact Info) Description 08/02/2023 Telephone [facility] CHC MED & PEDS [address] [place] [address] Giana Isbell MD [address] [place] [address] Nurse Triage Social History Tobacco Use Types [...] 08/02/2023 10:38 AM EDT Triage call with [employer] [place] ID [id number] Pt reports a small lump in the corner of lower left eye lid. Pt reports it is red, itchy, painful. This doesn't effect vision and Pt has never had this before. Pt has had this for more than a week and it is increasing in size. No available apts ion [facility] . Pt is advised to come to [facility] to be seen by provider and Pt [...] 9:00 AM EDT Office Visit [facility] OPTOMETRY [address] [place] [address] Dawna Pro, OD [address] [place] [address] 06/26/2024 1:30 PM EDT Office Visit [facility] CHC MED & PEDS [address] [place] [address] Giana Isbell MD [address] [place] [address] documented as of this encounter Visit Diagnoses Not on filedocumented in this encounter Additional Health Concerns Assessment Noted Time PHQ-9 Depression Total Score: 7 07/30/19 23 10:13 AM EDT documented as of this encounter Care Teams Auto Camp Attendant Relationship Specialty Start Date End Date Giana Isbell MD [address] [place] [address] PCP - General Internal Medicine 09/07/18 documented as of this encounter
== END 2024-04-09 12:37 | disposition home or self-care (01) ==
PROVIDERS: PCP Internal Medicine; Visit Provider Internal Medicine
DX: R07.2 Precordial pain (principal); R93.1 Abnormal findings on diagnostic imaging of heart and coronary circulation; Z09 Encounter for follow-up examination after completed treatment for conditions other than malignant neoplasm
CPT/HCPCS: 99214; G2211

== ENCOUNTER → 2024-04-09 10:46 | Outpatient (BNVA) | payer OTHER, SELFPAY | PROVIDERS: PCP Internal Medicine; Visit Provider Internal Medicine ==

== ENCOUNTER 2024-04-09 12:07 | Outpatient (REF) | payer OTHER, SELFPAY ==
--- NOTE | ~2024-04-09 | US_ITS ---
EXAMINATION: US DIAGNOSTIC ULTRASOUND BREAST, RIGHT CLINICAL INFORMATION: History of recently diagnosed right breast invasive ductal carcinoma ultrasound for response to treatment.. COMPARISON: Comparison is made with relevant prior imaging. TECHNIQUE: Ultrasound of the breast is performed with real-time hugo scale imaging and color Doppler. FINDINGS: Targeted color Doppler ultrasound scanning from 7-11 o'clock was performed. The marker clip from the previously biopsied mass at 9:00 8 cm from the nipple is seen with minimal surrounding hypoechoic area no definite masses seen. Largest diameter of the hypoechoic area is 19 mm x 2 mm however no mass is seen and this could all represent to surrounding ectatic ducts edema and normal tissue. Results are discussed with the patient at time of visit. US/US breast RT limited mamm only IMPRESSION: Interval decreased size without definite mass seen in the area of previously biopsied invasive ductal carcinoma 9:00 8 cm from the nipple. Only the marker clip is seen with minimal hypoechoic surrounding area. ASSESSMENT: BI-RADS 6: Known Biopsy-Proven Malignancy RECOMMENDATION: Recommend patient follows up with breast surgery and oncology for further management. This patient's information was entered into a reminder system with a target due date for their next mammogram. Electronically signed by: Carissa Raza DO 04/09/2024 01:05 PM LILI
--- OUTSIDE RECORDS SUMMARY | 2024-04-09 14:14 | XMS_ITS | Encounter Summary ---
Author Organization [employer] Address [address] [facility] [address] [place] [address] Care Team Providers Care Solutions Analyst Name Role Phone Giana Isbell MD Primary Care Provider [phone] Encounter Details Date Type Department Care Team ([facility] st Contact Info) Description 04/05/2023 Telephone [facility] MEDICINE [address] [place] [address] iGana Isbell MD [address] [place] [address] Social History Tobacco Use Types Packs/Day Years [...] Description 06/11/2024 9:00 AM EDT Office Visit [facility] OPTOMETRY [address] [place] [address] Morteza, Dawna, OD [address] [place] [address] 06/26/2024 1:30 PM EDT Office Visit [facility] CHC MED & PEDS [address] [place] [address] Giana Isbell MD [address] [place] [address] documented as of this encounter Visit Diagnoses Not on filedocumented in this encounter Additional Health Concerns Assessment Noted Time PHQ-9 Depression Total Score: 7 07/30/19 23 10:13 AM EDT documented as of this encounter Care Teams Solutions Analyst Relationship Specialty Start Date End Date Giana Isbell MD [address] [place] [address] PCP - General Internal Medicine 09/07/18 documented as of this encounter
--- OUTSIDE RECORDS SUMMARY | 2024-04-09 14:14 | XMS_ITS | Encounter Summary ---
Author Organization [employer] Address [address] [facility] 7[address] [place] [address] Care Team Providers Care Filter Press Operator Name Role Phone Giana Isbell MD Primary Care Provider [phone] Reason for Visit * Reason Onset Date Comments Hospital Follow-up 03/19/2024 Encounter Details Date Type Department Care Team ([facility] Contact Info) Description 03/19/2024 Telephone [facility] MEDICINE [address] [place] [address] Giana Isbell MD [address] [place] [address] Hospital Follow-up Social History Tobacco Use Types [...] pt requesting a HDF appt. Hospital: [facility] Date of admission: 03/13/24 Discharge date: 03/16/24 Diagnosed: Pneumonia *Send message to [place] Clinical Care Coordinators Contact Pt CMM INSPECTOR at [phone] documented in this encounter Plan of Treatment Upcoming Encounters Date Type Department Care Team (Late st Contact Info) Description 06/11/2024 9:00 AM EDT Office Visit [facility] OPTOMETRY [address] [place] [address] Morteza, Dawna, OD [address] [place] [address] 06/26/2024 1:30 PM EDT Office Visit [facility] CHC MED & PEDS [address] [place] [address] Giana Isbell MD [address] [place] [address] documented as of this encounter Visit Diagnoses Not on filedocumented in this encounter Additional Health Concerns Assessment Noted Time PHQ-9 Depression Total Score: 7 07/30/19 23 10:13 AM EDT documented as of this encounter Care Teams Filter Press Operator Relationship Specialty Start Date End Date Giana Isbell MD [address] [place] [address] PCP - General Internal Medicine 09/07/18 documented as of this encounter
--- OUTSIDE RECORDS SUMMARY | 2024-04-09 14:14 | XMS_ITS | Encounter Summary ---
Author Organization [employer] Address [address] [facility] [address] [place] [address] Care Team Providers Care Textile Broker Name Role Phone Giana Isbell MD Primary Care Provider [phone] Reason for Visit * Reason Onset Date Comments Medication Question 04/02/2024 Encounter Details Date Type Department Care Team ([facility] Contact Info) Description 04/02/2024 Telephone [facility] MEDICINE [address] [place] [address] Giana Isbell MD [address] [place] [address] Medication Question Social History Tobacco Use Types [...] Tc to pt via s id: [phone] to let them know per PCP Ms. Tory Cantrell can take the protonix at night, 3 hours after dinner with an empty stomach. No answer, lvm to return call and ask to speak to [facility] nurses. * Telephone Encounter - Annalee Polanco RN - 04/02/2024 2:19 PM EST TC to pt using green building design specialist services. Pt stated that they have stomach [...] Original medicationthat she had. Contact Pt at [phone] documented in this encounter Plan of Treatment Upcoming Encounters Date Type Department Care Team (Late st Contact Info) Description 06/11/2024 9:00 AM EDT Office Visit [facility] OPTOMETRY [address] [place], [place] [phone] MortezaDawna priest, OD [address] [place] [address] 06/26/2024 1:30 PM EDT Office Visit [facility] CHC MED & PEDS [address] [place], [place] [phone] Giana Isbell MD [address] [place], [place] [phone] documented as of this encounter Visit Diagnoses Not on filedocumented in this encounter Additional Health Concerns Assessment Noted Time PHQ-9 Depression Total Score: 24 025 9:26 AM EST documented as of this encounter Care Teams Textile Broker Relationship Specialty Start Date End Date Giana Isbell MD [address] [place], [place] [phone] PCP - General Internal Medicine 09/07/18 documented as of this encounter
--- OUTSIDE RECORDS SUMMARY | 2024-04-09 14:14 | XMS_ITS | Encounter Summary ---
Author Organization [employer] Address [address] [facility] [address] [place] [address] Care Team Providers Care Dedicated Owner Operator Name Role Phone Giana Isbell MD Primary Care Provider [phone] Reason for Referral * Consultation (Routine) - Authorized Specialty Diagnoses / Procedures Referred By Contharman t Referred To Contact Cardiology Diagnoses SOB (shortness of breath) Giana Isbell MD [address] [place] [address] Phone: tel: fax: Kavon Berumen MD [address] [facility] [address] [place] [address] Phone: tel: fax: Referral ID Status Reason Start Date Expiration Date Visits Requested Visits Authorized [id number] Authorized Specialty Services Required 12/18/2024 1 1 Encounter Details Date Type Department Care Team (Late st Contact Info) Description 12/19/2023 Orders Only [facility] CHC MED & PEDS [address] [place] [address] Giana Isbell MD [address] [place] [address] SOB (shortness of breath) (Primary Dx) Social [...] [facility] OPTOMETRY [address] [place] [address] Dawna Pro, OD [address] [place] [address] 06/26/2024 1:30 PM EDT Office Visit [facility] CHC MED & PEDS [address] [place], [place] [phone] Giana Isbell MD [address] [place], [place] [phone] Scheduled Referrals Name Type Priority Associated Diagnoses [...] EST Narrative 01/18/2024 9:40 AM EST ? [facility] ? [address] ?[place] [address] ? Ultrasound Report ? Signed with Addenda ? Patient: Tory Bush ?MR#: [id number] ?? [id number] ? : 1965 ?Acct:[id number] ? Age/Sex: 58 / F ?ADM Date: 01/18/24 ? Loc: HO.MAMMO ? Attending Dr: Pardeep Marcos MD ? Ordering Physician: Pardeep Marcos MD ?? Date of Service: 01/18/24 ?? Procedure(s): US breast ndl core biopsy RT ?? Accession Number(s): [id number] ? cc: Giana Isbell MD; Pardeep Marcos [...] DD/ 0800 ? TD/TT: 01/18/24 0835 ? Correctional Officer Lieutenant: ? Procedure Note Trish, Image - 01/25/2024 Isa[facility] [address] [place], [place] [address] Ultrasound Report Signed with Addenda Patient: Pat Bush#: [id number] : 1965Acct:[id number] Age/Sex: 58 / FADM Date: 01/18/24 Loc: HO.MAMMO Attending Dr: Pardeep Marcos MD Ordering Physician: Pardeep Marcos MD Date of Service: 01/18/24 Procedure(s): US breast ndl core biopsy RT Accession Number(s): [id number] cc: Giana Isbell MD; Pardeep Marcos MD [...] OV> 01/18/2437 DD/ 0800 TD/TT: 01/18/24 0835 Correctional Officer Lieutenant: [facility] External Provider IMG US PROCEDURES Edited Result - Final * BI Mammogram Diagnostic Tomosynthesis Right (01/18/2024 8:00 AM EST) Anatomical Region Laterality Modality Breast Right Mammography 01/18/2024 8:00 AM EST Narrative 01/18/2024 9:40 AM EST ? [facility] ? [address] ?[place] [address] ? Mammography Report ? Signed with Addenda ? Patient: Tamia Sánchez,Tory ?MR#: [id number] ?? [id number] ? : 1965 ?Acct:[id number] ? Age/Sex: 58 / F ?ADM Date: 12/11/24 ? Loc: HO.MAMMO ? Attending Dr: Pardeep Marcos MD ? Ordering Physician: Pardeep Marcos MD ?Results: ? Date of Service: 01/18/24 ?Follow Up: ? Procedure(s): MM tomosynthesis diagnostic RT ?? Accession Number(s): [id number] ? cc: Giana Isbell MD; Pardeep Marcos [...] DD/ 0800 ? TD/TT: 01/18/24 0835 ? Correctional Officer Lieutenant: ? Procedure Note Barbter, Image - 01/25/2024 [facility] [address] [place] [address] Mammography Report Signed with Fani Patient: Pat Bush#: [id number] : 1965Acct:[id number] Age/Sex: 58 / FADM Date: 01/18/24 Loc: ADELITA Attending Dr: Pardeep Marcos MD Ordering Physician: Pardeep Marcosults: Date of Service: 01/18/24Follow Up: Procedure(s): MM tomosynthesis diagnostic RT Accession Number(s): [id number] cc: Giana Isbell MD; Pardeep Marcos MD [...] OV> 01/18/2437 DD/ 9 TD/TT: 01/18/24 0835 Correctional Officer Lieutenant: [facility] External Provider IMG BI PROCEDURES Edited Result - Final documented in this encounter Visit Diagnoses Diagnosis SOB (shortness of breath)- Primary Shortness of breath documented in this encounter Additional Health Concerns Assessment Noted Time PHQ-9 Depression Total Score: 7 07/30/19 23 10:13 AM EDT documented as of this encounter Care Teams Dedicated Owner Operator Relationship Specialty Start Date End Date Giana Isbell MD [address] [place] [address] PCP - General Internal Medicine 09/07/18 documented as of this encounter
--- OUTSIDE RECORDS SUMMARY | 2024-04-09 14:14 | XMS_ITS | Encounter Summary ---
Author Organization [employer] Address [address] [facility] [address] [place] [address] Care Team Providers Care Bellows Filler Name Role Phone Giana Isbell MD Primary Care Provider [phone] Encounter Details Date Type Department Care Team ([facility] Contact Info) Description 03/13/2024 Orders Only GENERIC [...] Office Visit [facility] OPTOMETRY [address] [place] [address] MortezaDawna priest, OD [address] [place] [address] 06/26/2024 1:30 PM EDT Office Visit [facility] CHC MED & PEDS [address] [place], [place] [phone] Giana Isbell MD [address] [place], [place] [phone] documented as of this encounter Procedures Procedure Name Priority Date/Time Associated Diagnosis Comments BI US BREAST LIMITED RIGHT Routine 04/09/2024 12:30 PM EST LACTIC ACID Routine 03/13/2024 6:39 PM EST [...] documented in this encounter Results * BI US Breast Limited Right (04/09/2024 12:30 PM EST) Anatomical Region Laterality Modality Breast Right Ultrasound 04/09/2024 12:3 0 PM EST Narrative 04/09/2024 1:08 PM EST ? [facility] [place] ? [address] ?[place] [address] ? Ultrasound Report ? Signed ? Patient: Tory Bush ?MR#: [id number] ?? [id number] ? : 1965 ?Acct:[id number] ? Age/Sex: 58 / F ?ADM Date: 04/09/24 ? Loc: HO.MAMMO ? Attending Dr: Rhona Badillo MD ? Ordering Physician: Rhona Badillo MD ?? Date of Service: 04/09/24 ?? Procedure(s): US breast RT limited mamm only ?? Accession Number(s): [id number] ? cc: Giana Isbell MD; Rhona Badillo MD ? EXAMINATION: ?? US DIAGNOSTIC ULTRASOUND BREAST, RIGHT ? CLINICAL INFORMATION: ? History of recently diagnosed right breast invasive ductal carcinoma ?? ultrasound for response to treatment.. ? COMPARISON: ?? Comparison is made with relevant prior imaging. ? TECHNIQUE: ?? Ultrasound of the breast is performed with real-time hugo scale imaging ?? and color Doppler. ? FINDINGS: ?? Targeted color Doppler ultrasound scanning from 7-11 o'clock was ?? performed. The marker clip from the previously biopsied mass at 9:00 8 ?? cm from the nipple is seen with minimal surrounding hypoechoic area no ?? definite masses seen. Largest diameter of the hypoechoic area is 19 mm ?? x 2 mm however no mass is seen and this could all represent to ?? surrounding ectatic ducts edema and normal tissue. ? Results are discussed with the patient at time of visit. ? US/US breast RT limited mamm only ?? IMPRESSION: ?? Interval decreased size without definite mass seen in the area of ?? previously biopsied invasive ductal carcinoma 9:00 8 cm from the ?? nipple. Only the marker clip is seen with minimal hypoechoic ?? surrounding area. ? ASSESSMENT: ? BI-RADS 6: Known Biopsy-Proven Malignancy ? RECOMMENDATION: ?? Recommend patient follows up with breast surgery and oncology for ?? further management. ? This patient's information was entered into a reminder system with a ?? target due date for their next mammogram. ? Electronically signed by: ??Carissa Raza DO ??04/09/2024 01:05 PM EST ? Dictated By: ?Carissa Raza DO ? Signed By: ?<Electronically signed by Carissa Raza, DO in OV> ? 04/09/24 1305 ? DD/ 1230 ? TD/TT: 04/09/24 1241 ? Network Programmer: ? Procedure Note Trish, Eliud - 04/09/2024 [place] [facility] [address] [place] [address] Ultrasound Report Signed Patient: Pat Bush#: [id number] : 1965Acct:[id number] Age/Sex: 58 / FADM Date: 04/09/24 Loc: HO.MAMMO Attending Dr: Rhona Badillo MD Ordering Physician: Rhona Badillo MD Date of Service: 04/09/24 Procedure(s): US breast RT limited mamm only Accession Number(s): [id number] cc: Giana Isbell MD; Rhona Badillo MD EXAMINATION: US DIAGNOSTIC ULTRASOUND BREAST, RIGHT CLINICAL INFORMATION: History of recently diagnosed right breast invasive ductal carcinoma ultrasound for response to treatment.. COMPARISON: Comparison is made with relevant prior imaging. TECHNIQUE: Ultrasound of the breast is performed with real-time hugo scale imaging and color Doppler. FINDINGS: Targeted color Doppler ultrasound scanning from 7-11 o'clock was performed. The marker clip from the previously biopsied mass at 9:00 8 cm from the nipple is seen with minimal surrounding hypoechoic area no definite masses seen. Largest diameter of the hypoechoic area is 19 mm x 2 mm however no mass is seen and this could all represent to surrounding ectatic ducts edema and normal tissue. Results are discussed with the patient at time of visit. US/US breast RT limited mamm only IMPRESSION: Interval decreased size without definite mass seen in the area of previously biopsied invasive ductal carcinoma 9:00 8 cm from the nipple. Only the marker clip is seen with minimal hypoechoic surrounding area. ASSESSMENT: BI-RADS 6: Known Biopsy-Proven Malignancy RECOMMENDATION: Recommend patient follows up with breast surgery and oncology for further management. This patient's information was entered into a reminder system with a target due date for their next mammogram. Electronically signed by: Carissa Raza DO 04/09/2024 01:05 PM EST Dictated By: Carissa Raza DO Signed By: <Electronically signed by Carissa Raza DO in OV> 04/09/24 1305 DD/ 1230 TD/TT: 04/09/24 1241 Network Programmer: us [facility] External Provider IMG US PROCEDURES Final Result * Lactic Acid (03/13/2024 6:39 PM EST) Lactic Acid 1.0 0.5 - 2.0 mmol/L [facility] 03/13/2024 6:39 PM EST 03/13/2024 6:41 PM EST us Generic External Data Provider LAB BLOOD ORDERAB LES Final Result [facility] [address] [place] [phone] * CTA Chest PE Protocal (03/13/2024 4:24 PM EST) Anatomical Region Laterality Modality Body, Chest Computed Tomogra phy 03/13/2024 4:24 PM EST Narrative 03/13/2024 5:03 PM EST ? [facility] ?[address] ?[place] [address] ? CT Scan Report ? Signed ? Patient: Tamia SánchezTory ?MR#: [id number] ?? [id number] ? : 1965 ?Acct:[id number] ? Age/Sex: 58 / F ?ADM Date: 03/13/24 ? Loc: HO.ED ? Attending Dr: ? Ordering Physician: Kristi Bazan ?? Date of Service: 03/13/24 ?? Procedure(s): CT angio chest PE protocol ?? Accession Number(s): [id number] ? cc: Giana Isbell MD; Kristi Bazan ? Report Number: ?? [id number]: Total DLP = ??202.00 mGy-cm ?? EXAMINATION: [...] MD in OV> ?03/13/24 1700 ? DD/ ? TD/TT: 03/13/24 1642 ? Network Programmer: ? Procedure Note Eliud Chambers - 03/13/[address] [place] [address] CT Scan Report Signed Patient: Pat Bush#: [id number] : 1965Acct:[id number] Age/Sex: 58 / FADM Date: 03/13/24 Loc: HO.ED Attending Dr: Ordering Physician: Kristi Bazan Date of Service: 03/13/24 Procedure(s): CT angio chest PE protocol Accession Number(s): [id number] cc: Giana Isbell MD; Kristi Bazan Report Number: [id number]: Total DLP = 202.00 mGy-cm EXAMINATION: CT [...] 03/13/24 1700 DD/ 1624 TD/TT: 03/13/24 1642 Network Programmer: [facility] External Provider IMG CT PROCEDURES Final Result * High Sensitivity Troponin I (03/13/2024 4:05 PM EST) [facility] [address] TROPONIN I HIGH SENSITIVITY 5.8 <3.5 - 17.0 ng/L [facility] Comment:The Dinh high sens itivity Troponin-I results should beused in conjunction with other diagnostic information suchas ECG, clinical observations and information, and patientsymptoms to aid in the diagnosis of DE. 03/13/2024 4:05 PM EST 03/13/2024 4:09 PM EST Generic External Data Provider LAB BLOOD ORDERAB LES Final Result [facility] [address] [place] [phone] * Magnesium (03/13/2024 2:52 PM EST) [facility] [address] Magnesium 1.9 1.6 - 2.6 mg/dL [facility] 03/13/2024 2:52 PM EST 03/13/2024 3:00 PM EST us Generic External Data Provider LAB BLOOD ORDERAB LES Final Result Performing Organization Address City/[facility] [address]/ZIP Co de Phone Number [facility] [address] [place] [phone] * (ABNORMAL) Basic Metabolic Panel (03/13/2024 2:52 PM EST) Sodium 140 135 - 145 mmol/L [facility] Potassium 4.0 3.3 - 5.1 mmol/L [facility] Comment:Slight Hemolysis.Int erpret result with caution. Chloride 109(H) 96 - 108 mmol/L [facility] Carbon Dioxide 22 22 - 29 mmol/L [facility] Anion Gap 13 12 - 20 [facility] Urea Nitrogen (BUN) 20(H) 9 - 16 mg/dL [facility] Creatinine, Serum 0.93 0.5 - 1.4 mg/dL [facility] Creatinine Clr Calc Pharmacy 54.5 [facility] Comment:Provided height and weight: 160.02 cm,58.967 kg.eGFR (calculated from the MDRD study equation) and eCrCl(calculated from the Cockcroft-Gault equation) are based ondifferent parameters and may not yield comparable results.If eCrCl result is absurd, please check patient'sheight/weight. Estimated Glomerular Filt Rate >60 [facility] Comment:Chronic Kidney Disea se: Estimated GFR < 60 mL/min/[id number] Kidney Disease: Estimated GFR < 15 mL/min/1.73m2 Glucose 123(H) 60 - 115 mg/dL [facility] Calcium 9.0 8.4 - 10.2 mg/dL [facility] 03/13/2024 2:52 PM EST 03/13/2024 3:00 PM EST us Generic External Data Provider LAB BLOOD ORDERAB LES Final Result Performing Organization Address City/State/[facility] de Phone Number [facility] [address] [place] [phone] * (ABNORMAL) Hepatic Function Panel (03/13/2024 2:52 PM EST) Bilirubin, Total 0.5 0.0 - 1.0 mg/dL [facility] Bilirubin, Direct 0.1 0.0 - 0.5 mg/dL [facility] Aspartate Amino Transferase 33(H) 5 - 31 U/L [facility] Comment:Slight Hemolysis.Int erpret result with caution. Alanine Aminotransferase 38(H) 0 - 31 U/L [facility] Total Protein 6.7 6.5 - 8.0 g/dL [facility] Albumin Level 3.7 3.5 - 5.0 g/dL [facility] Alkaline Phosphatase 161(H) 39 - 117 U/L [facility] 03/13/2024 2:52 PM EST 03/13/2024 3:00 PM EST Generic External Data Provider LAB BLOOD ORDERAB LES Final Result Performing Organization Address [facility] [address]/[facility] de Phone Number [facility] [address] [place] [phone] * SARS-CoV-2 RNA, Influenza A/B, and RSV RNA, Ql NAAT (03/13/2024 2:52 PM EST) Pathologist [facility] Influenza A PCR NEGATIVE Negative [facility] Influenza B PCR NEGATIVE Negative [facility] Resp Syncy Virus RNA Qual PCR NEGATIVE Negative [facility] SARS COV2 PCR NEGATIVE Negative [facility] Comment:All test results mus [...] use by authorized laboratories.Testing performed on the [employer] GeneXpert utilizingreal-time RT-PCR.All SARS CoV2 and positive influenza A/B results arereported to [facility]. 03/13/2024 2:52 PM EST 03/13/2024 3:00 PM EST [facility] External Data Provider LAB MICROBIOLOGY - GENERAL ORDERABLES Final Result Performing Organization Address [facility] de Phone Number [facility] [address] [place] [phone] * High Sensitivity Troponin I (03/13/2024 2:52 PM EST) [facility] [address] TROPONIN I HIGH SENSITIVITY 6.2 <3.5 - 17.0 ng/L [facility] Comment:The Dinh high sens itivity Troponin-I results should beused in conjunction with other diagnostic information suchas ECG, clinical observations and information, and patientsymptoms to aid in the diagnosis of DE. 03/13/2024 2:52 PM EST 03/13/2024 3:00 PM EST [facility] External Data Provider LAB BLOOD ORDERAB LES Final Result Performing Organization Address [facility] Phone Number [facility] [address] [place] [phone] * B Type Natriuretic Peptide (BNP) (03/13/2024 2:52 PM EST) Pathologist [facility] B Type Natriuretic Peptide <10 <100 pg/mL [facility] Comment:For those patients w ho are being treated with Natrecor(nesiritide, recombinant BNP), BNP testing should beperformed at least two hours post treatment in order toensure that only endogenous levels of BNP are detected. 03/13/2024 2:52 PM EST 03/13/2024 3:00 PM EST [facility] External Data Provider LAB BLOOD ORDERAB LES Final Result Performing Organization Address [facility] de Phone Number [facility] [address] [place] [phone] * D Dimer High Sensitivity (03/13/2024 2:52 PM EST) [facility] [address] [facility] D Dimer High Sensitivity 349 NG/ML [facility] Comment:D-DIMER HS REFERENCE RANGENote: Our assay reports D-Dimer Units (D- DU).The cut-off value for venous thromboembolic (VTE) disease is230 ng/mL. This value has a very high negative predictivevalue when the patient has a low to moderate clinicalprobability of VTE.The upper limit of normal is 243 ng/mL. 03/13/2024 2:52 PM EST 03/13/2024 3:00 PM EST [employer] External Data Provider LAB BLOOD ORDERAB LES Final Result Performing Organization Address [facility] Phone Number [facility] [address] [place] [phone] * Prothrombin Time-INR (03/13/2024 2:52 PM EST) [facility] Prothrombin Time 11.1 10.9 - 12.4 SEC [facility] INTERNATIONAL NORM RATIO 1.0 0.9 - 1.1 [facility] Comment:INTERNATIONAL NORMAL IZED RATIO (INR) [...] ORDERAB LES Final Result Performing Organization Address [facility] de Phone Number [facility] [address] [place] [phone] * (ABNORMAL) Complete Blood Count Manual Diff (03/13/2024 2:52 PM EST) White Blood Count 7.5 4.8 - 10.8 X10*3/uL [facility] Red Blood Count 4.75 4.20 - 5.50 X10*6/uL [facility] Hemoglobin 14.2 12.0 - 16.0 g/dl [facility] Hematocrit 41.9 37.0 - 47.0 % [facility] Mean Corpuscular Volume 88.2 80.0 - 98.0 fL [facility] Mean Corpuscular Hemoglobin 29.9 27.0 - 33.0 pg [facility] Mean Corpuscular HGB Conc 33.9 31.0 - 35.0 g/dl [facility] Red Cell Distribution Width 14.5 11.0 - 16.0 % [facility] Platelet Count 148(L) 160 - 400 X10*3/uL [facility] Mean Platelet Volume 9.7 9.4 - 12.3 fL [facility] NRBC Pct Auto 0.0 0.0 - 0.2 /100WBC [facility] NRBC Abs Auto 0.000 0.0 - 0.012 X10*3/uL [facility] Neutrophils % Manual 70 45 - 73 % [facility] Band Neutrophils Percent 2(L) 3 - 5 % [facility] Lymphocytes Percent Manual 26 20 - 40 % [facility] Monocytes Percent Manual 1(L) 2 - 11 % [facility] EOSINOPHILS % MANUAL 1 0 - 4 % [facility] NEUTROPHILS ABSOLUTE MANUAL 5.4 2.0 - 8.3 X10*3/uL [facility] LYMPHOCYTES ABSOLUTE MANUAL 2.0 1.2 - 4.9 X10*3/uL [facility] MONOCYTES ABSOLUTE MANUAL 0.1 0.1 - 1.2 X10*3/uL [facility] EOSINOPHILS ABSOLUTE MANUAL 0.1 0.0 - 0.4 X10*3/uL [facility] Platelet Estimate NORMAL NORMAL [facility] Platelet Morphology Comment NORMAL [facility] RBC Morphology NORMAL [facility] Toxic Granulation PRESENT [facility] Toxic Vacuolation [facility] Dohle Bodies PRESENT [facility] 03/13/2024 2:52 PM EST 03/13/2024 3:00 PM EST us Generic External Data Provider LAB BLOOD ORDERAB LES Final Result [facility] [address] [place], [place] [phone] * (ABNORMAL) CBC auto differential (03/13/2024 2:52 PM EST) White Blood Count 7.5 4.8 - 10.8 X10*3/uL [facility] Red Blood Count 4.75 4.20 - 5.50 X10*6/uL [facility] Hemoglobin 14.2 12.0 - 16.0 g/dl [facility] Hematocrit 41.9 37.0 - 47.0 % [facility] Mean Corpuscular Volume 88.2 80.0 - 98.0 fL [facility] Mean Corpuscular Hemoglobin 29.9 27.0 - 33.0 pg [facility] Mean Corpuscular HGB Conc 33.9 31.0 - 35.0 g/dl [facility] Red Cell Distribution Width 14.5 11.0 - 16.0 % [facility] Platelet Count 148(L) 160 - 400 X10*3/uL [facility] Mean Platelet Volume 9.7 9.4 - 12.3 fL [facility] Neutrophils Percent Auto 76.3(H) 45 - 73 % [facility] Imm Gran Pct Auto 0.3 0.0 - 0.4 % [facility] Lymphocytes Percent Auto 17.8(L) 20 - 40 % [facility] Monocytes Percent Auto 3.3 2 - 11 % [facility] Eosinophils Percent Auto 1.9 0 - 4 % [facility] Basophils Percent Auto 0.4 0 - 2 % [facility] NRBC Pct Auto 0.0 0.0 - 0.2 /100WBC [facility] Neutrophils Absolute Auto 5.8 2.0 - 8.3 x10*3/uL [facility] Imm Gran Abs Auto 0.02 0.00 - 0.03 X10*3/uL [facility] Lymphocytes Absolute Auto 1.3 1.2 - 4.9 X10*3/uL [facility] Monocytes Absolute Auto 0.3 0.1 - 1.2 X10*3/uL [facility] Eosinophils Absolute Auto 0.1 0.0 - 0.4 X10*3/uL [facility] Basophils Absolute Auto 0.0 0.0 - 0.2 X10*3/uL [facility] NRBC Abs Auto 0.000 0.0 - 0.012 X10*3/uL [facility] 03/13/2024 2:52 PM EST 03/13/2024 3:00 PM EST us Generic External Data Provider LAB BLOOD ORDERAB LES Edited Result - Final Performing Organization Address City/State/[facility] Co de Phone Number [facility] [address] [place] [phone] * XR Chest 1 View (03/13/2024 2:39 PM EST) Anatomical Region Laterality Modality Chest Radiographic Laura ging 03/13/2024 2:39 PM EST Narrative 03/13/2024 3:51 PM EST ? [facility] ?[address] ?[place] [address] ?XRay Report ? Signed ? Patient: Tamia Sánchez,Tory ?MR#: [id number] ?? [id number] ? : 1965 ?Acct:[id number] ? Age/Sex: 58 / F ?ADM Date: 02/04/25 ? Loc: HO.ED ? Attending Dr: ? Ordering Physician: Kristi Bazan ?? Date of Service: 03/13/24 ?? Procedure(s): XR chest 1V ?? Accession Number(s): [id number] ? cc: Giana Isbell MD; Kristi Bazan [...] DD/ 1439 ? TD/TT: 03/13/24 1525 ? Network Programmer: ? Procedure Note Trish, Image - 03/13/2024 [place] [address] XRay Report Signed Patient: Pat Bush#: [id number] : 1965Acct:[id number] Age/Sex: 58 / FADM Date: 03/13/24 Loc: HO.ED Attending Dr: Ordering Physician: Kristi Bazan Date of Service: 03/13/24 Procedure(s): XR chest 1V Accession Number(s): [id number] cc: Giana Isbell MD; Kristi Bazan EXAMINATION: [...] 03/13/24 1549 DD/ 1439 TD/TT: 03/13/24 1525 Network Programmer: [facility] External Provider IMG XR PROCEDURES Final Result documented in this encounter Visit Diagnoses Not on filedocumented in this encounter Additional Health Concerns Assessment Noted Time PHQ-9 Depression Total Score: 7 07/30/19 23 10:13 AM EDT documented as of this encounter Care Teams Bellows Filler Relationship Specialty Start Date End Date Giana Isbell MD [address] [place] [phone] PCP - General Internal Medicine 09/07/18 documented as of this encounter
--- OUTSIDE RECORDS SUMMARY | 2024-04-09 14:14 | XMS_ITS | Encounter Summary ---
Author Organization [employer] Address [address] [facility] [address] [place] [address] Care Team Providers Care Actuarial Director Name Role Phone Giana Isbell MD Primary Care Provider [phone] Encounter Details Date Type Department Care Team (Latest Contact Info) Description 02/16/2019 Abstract [facility] CONVERSIONS Dental, Provider, DDS Social History [...] Description 06/11/2024 9:00 AM EDT Office Visit [facility] OPTOMETRY [address] [place] [address] Dawna Pro, OD [address] [place] [address] 06/26/2024 1:30 PM EDT Office Visit [facility] CHC MED & PEDS [address] [place] [address] Giana Isbell MD [address] [place] [address] documented as of this encounter Visit Diagnoses Not on filedocumented in this encounter Care Teams Actuarial Director Relationship Specialty Start Date End Date Giana Isbell MD [address] [place] [phone] PCP - General Internal Medicine 09/07/18 documented as of this encounter
--- OUTSIDE RECORDS SUMMARY | 2024-04-09 14:14 | XMS_ITS | Encounter Summary ---
Author Organization [employer] Address [address] [facility] 7t [place] [address] Care Team Providers Care Photovoltaic Fabrication Technician Name Role Phone Giana Isbell MD Primary Care Provider [phone] Encounter Details Date Type Department Care Team (Latest Contact Info) Description 12/04/2021 Abstract [facility] CONVERSIONS Dental, Provider, DDS Social History [...] 9:00 AM EDT Office Visit [facility] OPTOMETRY [address] [place] [address] Dawna Pro, OD [address] [place] [address] 06/26/2024 1:30 PM EDT Office Visit [facility] CHC MED & PEDS [address] [place] [address] Giana Isbell MD [address] [place] [address] documented as of this encounter Visit Diagnoses Not on filedocumented in this encounter Care Teams Photovoltaic Fabrication Technician Relationship Specialty Start Date End Date Giana Isbell MD [address] [place] [address] PCP - General Internal Medicine 09/07/18 documented as of this encounter
--- OUTSIDE RECORDS SUMMARY | 2024-04-09 14:14 | XMS_ITS | Encounter Summary ---
Author Organization [employer] Address [address] [facility] [address] [place] [address] Care Team Providers Care Vault Worker Name Role Phone Giana Isbell MD Primary Care Provider [phone] Reason for Visit * Reason Comments Transition Of Care (Tcm) HDF scheduled a nd SDOH screening negative and Tobacco screening negative Encounter Details Date Type Department Care Team (Late st Contact Info) Description 03/20/2024 Patient Outreach [facility] MEDICINE [address] [place] [address] Giana Isbell MD [address] [place] [address] Transition Of Care (Tcm) (HDF scheduled and [...] 03/20/24 0836 Hospital Discharges and Admission for [facility] Type of Visit Hospital Admission Date of Admission/Visit 03/13/24 Date of Discharge 03/16/24 [facility] Diagnosis Pneumonia Disposition Discharged Home Follow-Up [...] scheduling. Patient also notified that a [facility] pharmacist will be reaching out [...] Center. Patient provided with after-hours line for [facility], , which offer night time triage ser vice and option to transfer to second time worker provider if needed. CC scanned discharge summary into patient's chart. Biggest concern for appointment at this time is no concerns. Appropriate screenings completed in anticipation of appointment. documented in this encounter Plan of Treatment Upcoming Encounters Date Type Department Care Team (Late st Contact Info) Description 06/11/2024 9:00 AM EDT Office Visit [facility] OPTOMETRY [address] [place], [place] [phone] MortezaKeon, OD [address] [place] [address] 06/26/2024 1:30 PM EDT Office Visit [facility] CHC MED & PEDS [address] [place] [address] Giana Isbell MD [address] [place] [address] documented as of this encounter Visit Diagnoses Not on filedocumented in this encounter Additional Health Concerns Assessment Noted Time PHQ-9 Depression Total Score: 7 07/30/19 23 10:13 AM EDT documented as of this encounter Care Teams Vault Worker Relationship Specialty Start Date End Date Giana Isbell MD [address] [place] [address] PCP - General Internal Medicine 09/07/18 documented as of this encounter
--- OUTSIDE RECORDS SUMMARY | 2024-04-09 14:14 | XMS_ITS | Encounter Summary ---
Author Organization [employer] Address [address] [facility] [address] [place] [address] Care Team Providers Care Apparel Patternmaker Name Role Phone Giana Isbell MD Primary Care Provider [phone] Encounter Details Date Type Department Care Team (Latest Contact Info) Description 02/15/2018 Abstract [facility] CONVERSIONS Dental, Provider, DDS [...] 06/11/2024 9:00 AM EDT Office Visit [facility] OPTOMETRY [address] [place] [address] Dawna Pro, OD [address] [place] [address] 06/26/2024 1:30 PM EDT Office Visit [facility] CHC MED & PEDS [address] [place] [address] Giana Isbell MD [address] [place] [address] documented as of this encounter Visit Diagnoses Not on filedocumented in this encounter Care Teams Apparel Patternmaker Relationship Specialty Start Date End Date Giana Isbell MD [address] [place] [address] PCP - General Internal Medicine 09/07/18 documented as of this encounter
--- OUTSIDE RECORDS SUMMARY | 2024-04-09 14:14 | XMS_ITS | Encounter Summary ---
Author Organization [employer] Address [address] [facility] [address] [place] [address] Care Team Providers Care Propagator Name Role Phone Giana Isbell MD Primary Care Provider [phone] Reason for Visit * Reason Comments Hospital discharge follow-up Encounter Details Date Type Department Care Team ([facility] Contact Info) Description 03/28/2024 9:15 AM EST Office Visit [facility] CHC MED & PEDS [address] [place] [address] Giana Isbell MD [address] [place] [address] Acute cough (Primary Dx); Acquired hypothyroidism; SOB [...] breast Cervical cancer screening Pre-diabetes Fractured dental scientologist without loss of material Closed fracture of [...] 5 Elastic Bandages & Supports (Knee Support) [facility] H/o knee instability. 2 each 0 famotidine [...] Visit [facility] OPTOMETRY [address] [place], [place] [phone] Morteza, Dawna, OD [address] [place] [address] 06/26/2024 1:30 PM EDT Office Visit [facility] CHC MED & PEDS [address] [place], [place] [phone] Giana Isbell MD [address] [place], [place] [phone] Scheduled Orders Name Type Priority Associated Diagnoses [...] documented as of this encounter Care Teams Propagator Relationship Specialty Start Date End Date Giana Isbell MD [address] [place], [place] [phone] PCP - General Internal Medicine 09/07/18 documented as of this encounter
--- OUTSIDE RECORDS SUMMARY | 2024-04-09 14:14 | XMS_ITS | Encounter Summary ---
Author Organization [employer] Address [address] [facility] [address] [place] [address] Care Team Providers Care Stone Rubber Name Role Phone Giana Isbell MD Primary Care Provider [phone] Reason for Visit * Reason Onset Date Comments Nurse Triage 03/01/2023 Encounter Details Date Type Department Care Team ([facility] Contact Info) Description 03/01/2023 Telephone [facility] MEDICINE [address] [place] [address] Giana Isbell MD [address] [place] [address] Nurse Triage Social History Tobacco Use Types [...] 03/01/2023 12:46 PM EST Triage call with [employer] Crew Chief ID [id number] Pt reports having surgery and not having any pain medication. Pt had a partial left thyroidectomy 02/28/23 @ [facility] and oxycodone 5mg po was ordered . Prescription was sent to [facility] pharmacy. Pt was not aware of [...] 06/11/2024 9:00 AM EDT Office Visit [facility] OPTOMETRY [address] [place] [address] Dawna Pro, OD [address] [place] [address] 06/26/2024 1:30 PM EDT Office Visit [facility] CHC MED & PEDS [address] [place] [address] Giana Isbell MD [address] [place] [address] documented as of this encounter Visit Diagnoses Not on filedocumented in this encounter Additional Health Concerns Assessment Noted Time PHQ-9 Depression Total Score: 7 07/30/19 23 10:13 AM EDT documented as of this encounter Care Teams Stone Rubber Relationship Specialty Start Date End Date Giana Isbell MD [address] [place] [address] PCP - General Internal Medicine 09/07/18 documented as of this encounter
--- OUTSIDE RECORDS SUMMARY | 2024-04-09 14:14 | XMS_ITS | Encounter Summary ---
Author Organization [employer] Address [address] [facility] [address] [place] [address] Care Team Providers Care Closed Circuit Screen Watcher Name Role Phone Giana Isbell MD Primary Care Provider [phone] Encounter Details Date Type Department Care Team (Latest Contact Info) Description 11/13/2020 Abstract [facility] CONVERSIONS Dental, Provider, DDS Social History [...] [facility] OPTOMETRY [address] [place] [address] Dawna Pro, OD [address] [place] [address] 06/26/2024 1:30 PM EDT Office Visit [facility] CHC MED & PEDS [address] [place] [address] Giana Isbell MD [address] [place] [address] documented as of this encounter Visit Diagnoses Not on filedocumented in this encounter Care Teams Closed Circuit Screen Watcher Relationship Specialty Start Date End Date Giana Isbell MD [address] [place] [address] PCP - General Internal Medicine 09/07/18 documented as of this encounter
--- OUTSIDE RECORDS SUMMARY | 2024-04-09 14:14 | XMS_ITS | Clinical Summary ---
Author Organization [employer] Address [address] [place] [address] Care Team Providers Care Infection Control Nurse Name Role Phone Giana Isbell MD Primary [...] of tooth 12/16/2023 Pre-diabetes 12/06/2023 Fractured dental yazidi without loss of mat erial 12/06/2023 Transaminitis [...] diagnostic mammo and breast US, send to [facility] Cervical cancer screening 10/25/2023 Assessment & Plan [...] Type Department Care Team Description 04/02/2024 Telephone [facility] [address] [place] [address] [phone] Giana Isbell MD Medication Question 03/28/2024 9:15 AM EST Office Visit [facility] [address], [place] [phone] Giana Isbell MD Acute cough (Primary Dx); Acquired hypothyroidism; SOB (shortness of breath); Bronchopneumonia 03/28/2024 Travel 03/20/2024 Patient Outreach [facility] [address] [place], [place] [phone] Giana Isbell MD Transition Of Care (Tcm) (HDF scheduled and SDOH screening negative and Tobacco screening negative) 03/19/2024 Patient Outreach [facility] [address] [place] [address] Giana Isbell MD Transition Of Care (Tcm) (HDF unscheduled LVM ) 03/19/2024 Telephone [facility] [address] [place] [address] Giana Isbell MD Hospital Follow-up 03/13/2024 Orders Only GENERIC EXTERNAL DATA DEPARTMENT Provider, Generic External Data 02/24/2024 Telephone [facility] [address] [place] [address] Lou Gonzalez MD 02/23/2024 Telephone [facility] [address] [place], [place] [phone] Giana Isbell MD 02/22/2024 3:30 PM EST Office Visit [facility] [address], [place] [phone] Giana Isbell MD Functional urinary incontinence (Primary Dx); Infiltrating ductal carcinoma of right breast (CMS/HCC) 02/22/2024 Orders Only [facility] External Provider, [facility] 02/22/2024 Travel 02/21/2024 Telephone [facility] [address], [place] [phone] Giana Isbell MD Chart Prep 02/17/2024 Orders Only [facility] Information [address] [phone] Kathi Rollins MD 02/16/2024 Telephone [facility] [address], [place] [phone] Giana Isbell MD Transition Of Care (Tcm) 02/16/2024 Orders Only GENERIC EXTERNAL DATA DEPARTMENT Provider, Generic External Data 02/15/2024 Orders Only GENERIC EXTERNAL DATA DEPARTMENT Provider, Generic External Data 02/10/2024 Orders Only [facility] External Provider, [facility] 02/10/2024 Telephone [facility] [address], [place] [phone] Nicole Paz, RN Results 02/06/2024 Orders Only [facility] [address] [place] [address] Giana Isbell MD Acquired hypothyroidism (Primary Dx) 02/06/2024 Orders Only GENERIC EXTERNAL DATA DEPARTMENT Provider, Generic External Data 02/02/2024 Refill [facility] [address] [place] [address] Giana Isbell MD 01/18/2024 Orders Only GENERIC [...] Description 06/11/2024 9:00 AM EDT Office Visit [facility] [address] [place] [address] Morteza, Dawna, OD [address] [place] [address] 06/26/2024 1:30 PM EDT Office Visit [facility] [address] [place] [address] Giana Isbell MD [address] [place] [address] Health Maintenance Due Date Last Done Comments [...] AM EST IR CVC INSERT TUNNEL W PRT/TRAVEL REGISTERED NURSE NICU Routine 02/16/2024 7:46 AM EST GLUCOSE, WHOLE [...] Recently Relevant to Health Maintenance Results * BI US Breast Limited Right (04/09/2024 12:30 PM EST) Anatomical Region Laterality Modality Breast Right Ultrasound 04/09/2024 12:3 0 PM EST Narrative 04/09/2024 1:08 PM EST ? [facility] ? [address] ?[place] [address] ? Ultrasound Report ? Signed ? Patient: Tamia Sánchez,Tory ?MR#: [id number] ?? [id number] ? : 1965 ?Acct:[id number] ? Age/Sex: 58 / F ?ADM Date: 03/03/25 ? Loc: HO.MAMMO ? Attending Dr: Rhona Badillo MD ? Ordering Physician: Rhona Badillo MD ?? Date of Service: 04/09/24 ?? Procedure(s): US breast RT limited mamm only ?? Accession Number(s): [id number] ? cc: Giana Isbell MD; Rhona Badillo [...] DD/ 1230 ? TD/TT: 04/09/24 1241 ? [employer] Reconnaissance Vehicle Crewman: ? Procedure Note Trish, Image - 04/09/2024 Isa[place] [facility] [address] [place] [address] Ultrasound Report Signed Patient: Pat Bush#: [id number] : 1965Acct:[id number] Age/Sex: 58 / FADM Date: 04/09/24 Loc: HO.MAMMO Attending Dr: Rhona Badillo MD Ordering Physician: Rhona Badillo MD Date of Service: 04/09/24 Procedure(s): US breast RT limited mamm only Accession Number(s): [id number] cc: Giana Isbell MD; Rhona Badillo MD [...] 04/09/24 1305 DD/ 1230 TD/TT: 04/09/24 1241 [employer] Crewman: us [facility] External Provider IMG US PROCEDURES Final Result * Lactic Acid (03/13/2024 6:39 PM EST) Lactic Acid 1.0 0.5 - 2.0 mmol/L [facility] 03/13/2024 6:39 PM EST 03/13/2024 6:41 PM EST us Generic External Data Provider LAB BLOOD ORDERAB LES Final Result [facility] [address] [place] [address] [phone] * CTA Chest PE Protocal (03/13/2024 4:24 PM EST) Anatomical Region Laterality Modality Body, Chest Computed Tomogra phy 03/13/2024 4:24 PM EST Narrative 03/13/2024 5:03 PM EST ? [facility] ?[address] ?[place] [address] ? [place] Scan Report ? Signed ? Patient: Tory Bush ?MR#: [id number] ?? [id number] ? : 1965 ?Acct:[id number] ? Age/Sex: 58 / F ?ADM Date: 03/13/24 ? Loc: HO.ED ? Attending Dr: ? Ordering Physician: Kristi Bazan ?? Date of Service: 03/13/24 ?? Procedure(s): CT angio chest PE protocol ?? Accession Number(s): [id number] ? cc: Giana Isbell MD; Kristi Bazan ? Report Number: ?? [id number]: Total DLP = ??202.00 mGy-cm ?? EXAMINATION: [...] DD/ 1624 ? TD/TT: 03/13/24 1642 ? Arm[employer] Reconnaissance Vehicle Crewman: ? Procedure Note Donotshirleneinterpreter, Image - 03/13/[address] [address] [place] Scan Report Signed Patient: Pat Bush#: [id number] : 1965Acct:[id number] Age/Sex: 58 / FADM Date: 03/13/24 Loc: HO.ED Attending Dr: Ordering Physician: Kristi Bazan Date of Service: 03/13/24 Procedure(s): CT angio chest PE protocol Accession Number(s): [id number] cc: Giana Isbell MD; Kristi Bazan Report Number: [id number]: Total DLP = 202.00 mGy-cm EXAMINATION: CT [...] MD 03/13/2024 05:00 PM EST Dictated By: nAt Cole MD Signed By: <Electronically signed by Ant Cole MD in OV> 03/13/24 1700 DD/ 1624 TD/TT: 03/13/24 1642 [employer] Reconnaissance Vehicle Crewman: [facility] External Provider IMG CT PROCEDURES Final Result * High Sensitivity Troponin I (03/13/2024 4:05 PM EST) Only the most recent of2 resultswithin the time period is included. TROPONIN I HIGH SENSITIVITY 5.8 <3.5 - 17.0 ng/L [facility] Comment:The Dinh high sens itivity Troponin-I results should beused in conjunction with other diagnostic information suchas ECG, clinical observations and information, and patientsymptoms to aid in the diagnosis of SC. 03/13/2024 4:05 PM EST 03/13/2024 4:09 PM EST Generic External Data Provider LAB BLOOD ORDERAB LES Final Result Performing Organization Address [facility] de Phone Number [facility] [address] [place] [phone] * D Dimer High Sensitivity (03/13/2024 2:52 PM EST) [facility] D Dimer High Sensitivity 349 NG/ML [facility] Comment:D-DIMER HS REFERENCE RANGENote: Our [...] ORDERAB LES Final Result Performing Organization Address [facility] Number [facility] [address] [place] [phone] * (ABNORMAL) Complete Blood Count Manual Diff (03/13/2024 2:52 PM EST) [facility] White Blood Count 7.5 4.8 - 10.8 X10*3/uL [facility] Red Blood Count 4.75 4.20 - 5.50 X10*6/uL [facility] Hemoglobin 14.2 12.0 - 16.0 g/dl [facility] Hematocrit 41.9 37.0 - 47.0 % [facility] Mean Corpuscular Volume 88.2 80.0 - 98.0 fL [facility] Mean Corpuscular Hemoglobin 29.9 27.0 - 33.0 pg [facility] Mean Corpuscular HGB Conc 33.9 31.0 - 35.0 g/dl [facility] Red Cell Distribution Width 14.5 11.0 - 16.0 % [facility] Platelet Count 148(L) 160 - 400 X10*3/uL [facility] Mean Platelet Volume 9.7 9.4 - 12.3 fL [facility] NRBC Pct Auto 0.0 0.0 - 0.2 /100WBC [facility] NRBC Abs Auto 0.000 0.0 - 0.012 X10*3/uL [facility] Neutrophils % Manual 70 45 - 73 % [facility] Band Neutrophils Percent 2(L) 3 - 5 % [facility] Lymphocytes Percent Manual 26 20 - 40 % [facility] Monocytes Percent Manual 1(L) 2 - 11 % [facility] EOSINOPHILS % MANUAL 1 0 - 4 % [facility] NEUTROPHILS ABSOLUTE MANUAL 5.4 2.0 - 8.3 X10*3/uL [facility] LYMPHOCYTES ABSOLUTE MANUAL 2.0 1.2 - 4.9 X10*3/uL [facility] MONOCYTES ABSOLUTE MANUAL 0.1 0.1 - 1.2 X10*3/uL [facility] EOSINOPHILS ABSOLUTE MANUAL 0.1 0.0 - 0.4 X10*3/uL [facility] Platelet Estimate NORMAL NORMAL [facility] Platelet Morphology Comment NORMAL [facility] RBC Morphology [facility] Toxic Granulation [facility]ENT [facility] Toxic Vacuolation [facility] Dohle Bodies PRESENT [facility] 03/13/2024 2:52 PM EST 03/13/2024 3:00 PM EST us Generic External Data Provider LAB BLOOD ORDERAB LES Final Result [facility] [address] [place] [address] [phone] * SARS-CoV-2 RNA, Influenza A/B, and RSV RNA, Ql NAAT (03/13/2024 2:52 PM EST) [facility] Influenza A PCR NEGATIVE Negative [facility] Influenza B PCR NEGATIVE Negative [facility] Resp Syncy Virus RNA Qual PCR NEGATIVE Negative [facility] SARS COV2 PCR NEGATIVE Negative [facility] Comment:All test results mus t [...] use by authorized laboratories.Testing performed on the [employer] GeneXpert utilizingreal-time RT-PCR.All SARS CoV2 and positive influenza A/B results arereported to [facility]. 03/13/2024 2:52 PM EST 03/13/2024 3:00 PM EST us Generic External Data Provider LAB MICROBIOLOGY - GENERAL ORDERABLES Final Result [facility] [address] [place] [phone] * (ABNORMAL) CBC auto differential (03/13/2024 2:52 PM EST) Only the most recent of2 resultswithin the time period is included. [facility] White Blood Count 7.5 4.8 - 10.8 X10*3/uL [facility] Red Blood Count 4.75 4.20 - 5.50 X10*6/uL [facility] Hemoglobin 14.2 12.0 - 16.0 g/dl [facility] Hematocrit 41.9 37.0 - 47.0 % [facility] Mean Corpuscular Volume 88.2 80.0 - 98.0 fL [facility] Mean Corpuscular Hemoglobin 29.9 27.0 - 33.0 pg [facility] Mean Corpuscular HGB Conc 33.9 31.0 - 35.0 g/dl [facility] Red Cell Distribution Width 14.5 11.0 - 16.0 % [facility] Platelet Count 148(L) 160 - 400 X10*3/uL [facility] Mean Platelet Volume 9.7 9.4 - 12.3 fL [facility] Neutrophils Percent Auto 76.3(H) 45 - 73 % [facility] Imm Gran Pct Auto 0.3 0.0 - 0.4 % [facility] Lymphocytes Percent Auto 17.8(L) 20 - 40 % [facility] Monocytes Percent Auto 3.3 2 - 11 % [facility] Eosinophils Percent Auto 1.9 0 - 4 % [facility] Basophils Percent Auto 0.4 0 - 2 % [facility] NRBC Pct Auto 0.0 0.0 - 0.2 /100WBC [facility] Neutrophils Absolute Auto 5.8 2.0 - 8.3 x10*3/uL [facility] Imm Gran Abs Auto 0.02 0.00 - 0.03 X10*3/uL [facility] Lymphocytes Absolute Auto 1.3 1.2 - 4.9 X10*3/uL [facility] Monocytes Absolute Auto 0.3 0.1 - 1.2 X10*3/uL [facility] Eosinophils Absolute Auto 0.1 0.0 - 0.4 X10*3/uL [facility] Basophils Absolute Auto 0.0 0.0 - 0.2 X10*3/uL [facility] NRBC Abs Auto 0.000 0.0 - 0.012 X10*3/uL [facility] 03/13/2024 2:52 PM EST 03/13/2024 3:00 PM EST us Generic External Data Provider LAB BLOOD ORDERAB LES Edited Result - Final [facility] [address] [place] [address] [phone] * Prothrombin Time-INR (03/13/2024 2:52 PM EST) [facility] Prothrombin Time 11.1 10.9 - 12.4 SEC [facility] INTERNATIONAL NORM RATIO 1.0 0.9 - 1.1 [facility] Comment:INTERNATIONAL NORMAL IZED RATIO (INR) [...] ORDERAB LES Final Result Performing Organization Address [facility] Co de Phone Number [facility] [address] [place] [phone] * B Type Natriuretic Peptide (BNP) (03/13/2024 2:52 PM EST) [facility] B Type Natriuretic Peptide <10 <100 pg/mL [facility] Comment:For those patients w ho are being treated with Natrecor(nesiritide, recombinant BNP), BNP testing should beperformed at least two hours post treatment in order toensure that only endogenous levels of BNP are detected. 03/13/2024 2:52 PM EST 03/13/2024 3:00 PM EST us Generic External Data Provider LAB BLOOD ORDERAB LES Final Result Performing Organization Address [facility] Co de Phone Number [facility] [address] [place] [phone] * Magnesium (03/13/2024 2:52 PM EST) Only the most recent of2 resultswithin the time period is included. Magnesium 1.9 1.6 - 2.6 mg/dL [facility] 03/13/2024 2:52 PM EST 03/13/2024 3:00 PM EST Generic External Data Provider LAB BLOOD ORDERAB LES Final Result Performing Organization Address [facility] Phone Number [facility] [address] [place] [phone] * (ABNORMAL) Hepatic Function Panel (03/13/2024 2:52 PM EST) Pathologist [facility] Bilirubin, Total 0.5 0.0 - 1.0 mg/dL [facility] Bilirubin, Direct 0.1 0.0 - 0.5 mg/dL [facility] Aspartate Amino Transferase 33(H) 5 - 31 U/L [facility] Comment:Slight Hemolysis.Int erpret result with caution. Alanine Aminotransferase 38(H) 0 - 31 U/L [facility] Total Protein 6.7 6.5 - 8.0 g/dL [facility] Albumin Level 3.7 3.5 - 5.0 g/dL [facility] Alkaline Phosphatase 161(H) 39 - 117 U/L [facility] 03/13/2024 2:52 PM EST 03/13/2024 3:00 PM EST Generic External Data Provider LAB BLOOD ORDERAB LES Final Result Performing Organization Address [facility] de Phone Number [facility] [address] [place] [phone] * (ABNORMAL) Basic Metabolic Panel (03/13/2024 2:52 PM EST) Pathologist [facility] Sodium 140 135 - 145 mmol/L [facility] Potassium 4.0 3.3 - 5.1 mmol/L [facility] Comment:Slight Hemolysis.Int erpret result with caution. Chloride 109(H) 96 - 108 mmol/L [facility] Carbon Dioxide 22 22 - 29 mmol/L [facility] Anion Gap 13 12 - 20 [facility] Urea Nitrogen (BUN) 20(H) 9 - 16 mg/dL [facility] Creatinine, Serum 0.93 0.5 - 1.4 mg/dL [facility] Creatinine Clr Calc Pharmacy 54.5 [facility] Comment:Provided height and weight: 160.02 cm,58.967 kg.eGFR (calculated from the MDRD study equation) and eCrCl(calculated from the Cockcroft-Gault equation) are based ondifferent parameters and may not yield comparable results.If eCrCl result is absurd, please check patient'sheight/weight. Estimated Glomerular Filt Rate >60 [facility] Comment:Chronic Kidney Disea se: Estimated GFR < 60 mL/min/1.93x4Gpptmm Kidney Disease: Estimated GFR < 15 mL/min/1.73m2 Glucose 123(H) 60 - 115 mg/dL [facility] Calcium 9.0 8.4 - 10.2 mg/dL [facility] 03/13/2024 2:52 PM EST 03/13/2024 3:00 PM EST us Generic External Data Provider LAB BLOOD ORDERAB LES Final Result Performing Organization Address City/State/[facility] Co de Phone Number [facility] [address] [place] [address] [phone] * XR Chest 1 View (03/13/2024 2:39 PM EST) Anatomical Region Laterality Modality Chest Radiographic Laura ging 03/13/2024 2:39 PM EST Narrative 03/13/2024 3:51 PM EST ? [facility] ?[address] [place] [address] ?[place] [address] ?XRay Report ? Signed ? Patient: Atmia Sánchez,Tory ?MR#: [id number] ?? [id number] ? : 1965 ?Acct:[id number] ? Age/Sex: 58 / F ?ADM Date: 02/04/25 ? Loc: HO.ED ? Attending Dr: ? Ordering Physician: Kristi Bazan ?? Date of Service: 03/13/24 ?? Procedure(s): XR chest 1V ?? Accession Number(s): [id number] ? cc: Giana Isbell MD; Kristi Bazan [...] DD/ 1439 ? TD/TT: 03/13/24 1525 ? Armor Reconnaissance Vehicle Crewman: ? Procedure Note Trish, Image - 03/13/2024 [place] [address] XRay Report Signed Patient: Pat Bush#: [id number] : 1965Acct:[id number] Age/Sex: 58 / FADM Date: 03/13/24 Loc: HO.ED Attending Dr: Ordering Physician: Kristi Bazan Date of Service: 03/13/24 Procedure(s): XR chest 1V Accession Number(s): [id number] cc: Giana Isbell MD; Kristi Bazan EXAMINATION: [...] 03/13/24 1549 DD/ 1439 TD/TT: 03/13/24 1525 Armor Reconnaissance Vehicle Crewman: [facility] External Provider IMG XR PROCEDURES Final [...] Media Lot # [id number] Lot# Expiration Date [id number] Urine 02/22/2024 4:33 PM EST Giana Isbell MD POINT OF CARE TEST ENTER/ED IT ORDERABLES Final Result * BI Mammogram Diagnostic Tomosynthesis Left (02/22/2024 12:55 PM EST) Anatomical Region Laterality Modality Breast Left Mammography 02/22/2024 12:5 5 PM EST Narrative 02/23/2024 9:49 AM EST ? [facility] ?[address] ?[place] [address] ? Mammography Report ? Signed with Addenda ? Patient: Tamia Sánchez,Tory ?MR#: [id number] ?? [id number] ? : 1965 ?Acct:[id number] ? Age/Sex: 58 / F ?ADM Date: 01/15/25 ? Loc: HO.MRI ? Attending Dr: Rhona Badillo MD ? Ordering Physician: Rhona Badillo MD ?Results: 1Negati ?? ve ? Date of Service: 02/22/24 ?Follow Up: 1 Year From Orig ?? inal Mammogram ? Procedure(s): MM tomosynthesis diagnostic LT ?? Accession Number(s): [id number] ? cc: Giana Isbell MD; Rhona Badillo [...] 1% lidocaine with epinephrine. ? NEEDLE: ?? DGTS Atec 9-gauge vacuum assisted core biopsy device. [...] DD/ 1255 ? TD/TT: 02/22/24 1305 ? Armor Reconnaissance Vehicle Crewman: ? Procedure Note Trish, Image - 03/02/2024 [place] [address] [place] [address] Mammography Report Signed with Addcordell Patient: Pat Bush#: [id number] : 1965Acct:[id number] Age/Sex: 58 / FADM Date: 02/22/24 Loc: HO.MRI Attending Dr: Rhona Badillo MD Ordering Physician: Rhona Badilloesults: 1Negati ve Date of Service: 02/22/24Follow Up: 1 Year From [facility] Mammogram Procedure(s): MM tomosynthesis diagnostic LT Accession Number(s): [id number] cc: Giana Isbell MD; Rhona Badillo MD [...] without and with use of gadolinium contrast. [facility] introducer localization system is used with grid. LESION: Left retroareolar lower outer breast anterior depth.. LOCAL ANESTHESIA: 6 mL 1% lidocaine; 4 mL 1% lidocaine with epinephrine. NEEDLE: [employer] 9-gauge vacuum assisted core biopsy device. APPROACH: [...] 02/23/24 0947 DD/ 1255 TD/TT: 02/22/24 1305 Armor Reconnaissance Vehicle Crewman: [facility] External Provider IMG BI PROCEDURES Edited Result - Final * Hematoxylin and Eosin Stain (02/22/2024 12:27 PM EST) Only the most recent of2 resultswithin the time period is included. 02/22/2024 12:2 7 PM EST 02/22/2024 1:32 PM EST [facility] - 02/24/2024 2:51 PM EST ----- ------- Name: Tory Bush ?Age/Sex: 58/F ? : 1965 Unit#: [id number] ?? Attend Dr: Rhona Badillo MD ?Re02/22/24 ?Status: DEP REF ? Location: HO.MRI ?Disch: ? ----- ------- SPEC : [id number] ?RECD: 02/22/24-1331 ? STATUS: ??SOUT ? REQ NUM: [id number] ? TEQUILA: 02/22/24-1227 ? SUBM DR: Carissa [...] Copies To: ?? Giana Isbell MD ?? [facility] ?? [address] ?? [place] [address] ?? [phone] ?? Rhona Badillo MD ?? [facility] Oncology/Hematology ?? [address] [facility] ?? [place] [address] ?? [phone] ? CONTINUED ON NEXT PAGE ----- ------- Name: Tory Bush ?Age/Sex: 58/F ? : 1965 Unit#: [id number] ?? Attend Dr: Rhona Badillo MD ?Re02/22/24 ?Status: DEP REF ? Location: HO.MRI ?Disch: ? ----- ------- SPEC : [id number] ?RECD: 02/22/24-2 ? STATUS: ??SOUT ? REQ NUM: [id number] ? TEQUILA: 02/22/24-1227 ? SUBM DR: Carissa Raza DO ? ENTERED: ??02/22/24-1 ?SP TYPE: Surgical ? OTHR DR: Giana Isbell MD ?Rhona Badillo MD ORDERED: ??HE Stain/2, Gross Micro L4 ? COMMENTS: As per the specimen requisition slip the specimen is ?collected at 1227 and placed in formalin at 1240. Copies To: ??(Continued) ?? Carissa Raza DO ?? [address] [facility] ?? [place] [address] ?? [phone] ----- ------- Signed (signature on file) Osman Ríos MD 02/24/24 1451 ? ----- ------- ? END OF REPORT ? us Generic External Data Provider LAB BLOOD ORDERAB LES Final Result [facility] [address] [facility] [place] [address] [phone] * BI MR Guided Breast Biopsy Left (02/22/2024 11:14 AM EST) Anatomical Region Laterality Modality Breast Left Magnetic Resonan ce 02/22/2024 11:1 4 AM EST Narrative 02/23/2024 9:50 AM EST ? [facility] ?[address] ?[place] [address] ? Magnetic Resonance Report ? Signed with Addenda ? Patient: Tamia Sánchez,Tory ?MR#: [id number] ?? [id number] ? : 1965 ?Acct:[id number] ? Age/Sex: 58 / F ?ADM Date: 02/22/24 ? Loc: HO.MRI ? Attending Dr: Rhona Badillo MD ? Ordering Physician: Rhona Badillo MD ?? Date of Service: 02/22/24 ?? Procedure(s): MR guided breast biopsy LT ?? Accession Number(s): [id number] ? cc: Giana Isbell MD; Rhona Badillo [...] Raza DO ??02/23/2024 09:47 AM EST ?? Workstation: [id number] ? Dictated By: ?Carissa Raza DO ? Signed By: ?<Electronically signed by Carissa Raza, in OV> ? 02/23/24 0947 ? DD/ 1114 ? TD/TT: 02/22/24 1230 ? Arm[employer] Reconnaissance Vehicle Crewman: ? Procedure Note Donmichelle, Image - 03/02/2024 [place] [address] Magnetic Resonance Report Signed with Addenda Patient: Pat Bush#: [id number] : 1965Acct:[id number] Age/Sex: 58 / FADM Date: 02/22/24 Loc: HO.MRI Attending Dr: Rhona Badillo MD Ordering Physician: Rhona Badillo MD Date of Service: 02/22/24 Procedure(s): MR guided breast biopsy LT Accession Number(s): [id number] cc: Giana Isbell MD; Rhona Badillo MD [...] without and with use of gadolinium contrast. [employer] introducer localization system is used with grid. LESION: Left retroareolar lower outer breast anterior depth.. LOCAL ANESTHESIA: 6 mL 1% lidocaine; 4 mL 1% lidocaine with epinephrine. NEEDLE: The [employer] 9-gauge vacuum assisted core biopsy device. APPROACH: [...] 02/23/24 0947 DD/ 1114 TD/TT: 02/22/24 1230 Arm[employer] Reconnaissance Vehicle Crewman: [facility] External Provider IMG MRI PROCEDURES Edited Result - Final * IR cvc insert tunnel w prt/remotely operated vehicle (02/16/2024 7:46 AM EST) Anatomical Region Laterality Modality X-Ray Angiograph y 02/16/2024 7:46 AM EST Narrative 02/24/2024 2:22 PM EST ? [facility] ?[address] ?[place] [address] ?Interventional Radiology Rpt ? Signed ? Patient: Tamia Tory Sánchez ?MR#: [id number] ?? [id number] ? : 1965 ?Acct:[id number] ? Age/Sex: 58 / F ?ADM Date: 02/16/24 ? Loc: HO.SSS ? Attending Dr: Rhona Badillo MD ? Ordering Physician: Rhona Badillo MD ?? Date of Service: 02/16/24 ?? Procedure(s): IR cvc insert tunnel w prt/remotely operated vehicle ?? Accession Number(s): [id number] ? cc: Giana Isbell MD; Rhona Badillo [...] records. ?? 2. Placement of a 6.6 Bermudian single-lumen power port. ? CLINICIAN: ?? Fortino [...] site. Through the peel-away sheath, the 6.6 Bermudian port catheter was ?? placed. The catheter [...] vein ?? 2. Placement of a 6.6 Bermudian single lumen power port. ?? 3. Port flushes and aspirates very well with a 10 mL syringe. No ?? pneumothorax. ? IR/IR cvc insert tunnel w prt/remotely operated vehicle ?? IMPRESSION: ?? Placement of a 6.6 Bermudian single-lumen power port. ? PLAN: ?? - [...] DD/ 0746 ? TD/TT: 02/16/24 0934 ? Armor Reconnaissance Vehicle Crewman: ? Procedure Note Donhernanter, Image - 02/24/2024 [place] [address] Interventional Radiology Rpt Signed Patient: Pat Bush#: [id number] : 1965Acct:[id number] Age/Sex: 58 / FADM Date: 02/16/24 Loc: HO.SSS Attending Dr: Rhona Badillo MD Ordering Physician: Rhona Badillo MD Date of Service: 02/16/24 Procedure(s): IR cvc insert tunnel w prt/remotely operated vehicle Accession Number(s): [id number] cc: Giana Isbell MD; Rhona Badillo MD CLINICAL HISTORY: Right breast cancer. The patient presents to interventional radiology for placement of a port for chemotherapy. PROCEDURES: 1. Real-time ultrasound-guided access into the left internal jugular vein after documentation of selected vessel patency, and permanent image storing in the patient records. 2. Placement of a 6.6 Bermudian single-lumen power port. CLINICIAN: Fortino Muniz PA-C [...] site. Through the peel-away sheath, the 6.6 Bermudian port catheter was placed. The catheter position [...] jugular vein 2. Placement of a 6.6 Bermudian single lumen power port. 3. Port flushes and aspirates very well with a 10 mL syringe. No pneumothorax. IR/IR cvc insert tunnel w prt/remotely operated vehicle IMPRESSION: Placement of a 6.6 Bermudian single-lumen power port. PLAN: - The patient will be discharged home when stable by sedation protocol. - Port may be used immediately. This procedure was performed by Fortino Muniz PA-C, and directly supervised by Dr. Pan Electronically signed by: Jose R Pan MD 02/24/2024 02:18 PM [facility] Dictated By: Fortino Muniz Signed By: <Electronically signed by Fortino Muniz in OV> 02/24/24 1418 <Electronically signed by Jose R Pan MD in OV> 02/24/24 1421 DD/ 0746 TD/TT: 02/16/24 0934 Armor Reconnaissance Vehicle Crewman: us [facility] External Provider IMG IR PROCEDURES Edited Result - Final * (ABNORMAL) Glucose, Whole Blood (02/16/2024 7:06 AM EST) Glucose, Whole Blood 142(H) 60 - 115 mg/dL [facility] Comment:METER #: [id number] 02/16/2024 7:06 AM EST 02/16/2024 7:11 AM EST Generic External Data Provider LAB BLOOD ORDERAB LES Final Result Performing Organization Address City/State/[facility] Co de Phone Number [facility] [address] [place] [phone] * (ABNORMAL) Comprehensive Metabolic Panel (02/15/2024 2:03 PM EST) Sodium 145 135 - 145 mmol/L [facility] Potassium 4.2 3.3 - 5.1 mmol/L [facility] Chloride 109(H) 96 - 108 mmol/L [facility] Carbon Dioxide 28 22 - 29 mmol/L [facility] Anion Gap 12 12 - 20 [facility] Urea Nitrogen (BUN) 14 9 - 16 mg/dL [facility] Creatinine, Serum 0.89 0.5 - 1.4 mg/dL [facility] Estimated Glomerular Filt Rate >60 [facility] Comment:Chronic Kidney Disea se: Estimated GFR < 60 mL/min/1.37s3Jofcvx Kidney Disease: Estimated GFR < 15 mL/min/1.73m2 Glucose 94 60 - 115 mg/dL [facility] Calcium 8.9 8.4 - 10.2 mg/dL [facility] Bilirubin, Total 0.4 0.0 - 1.0 mg/dL [facility] Aspartate Amino Transferase 36(H) 5 - 31 U/L [facility] Alanine Aminotransferase 33(H) 0 - 31 U/L [facility] Total Protein 7.1 6.5 - 8.0 g/dL [facility] Albumin Level 4.2 3.5 - 5.0 g/dL [facility] Alkaline Phosphatase 122(H) 39 - 117 U/L [facility] 02/15/2024 2:03 PM EST 02/15/2024 2:03 PM EST us Generic External Data Provider LAB BLOOD ORDERAB LES Final Result Performing Organization Address City/State/[facility] Co de Phone Number [facility] [address] [place] [phone] * BI US Breast Limited Left (02/10/2024 12:15 PM EST) Anatomical Region Laterality Modality Breast Left Ultrasound 02/10/2024 12:1 5 PM EST Narrative 02/10/2024 3:42 PM EST ? [facility] [place] ? [address] ?[place] [address] ? Ultrasound Report ? Signed ? Patient: Tory Bush ?MR#: [id number] ?? [id number] ? : 1965 ?Acct:[id number] ? Age/Sex: 58 / F ?ADM Date: 02/10/24 ? Loc: HO.MAMMO ? Attending Dr: Rhona Badillo MD ? Ordering Physician: Rhona Badillo MD ?? Date of Service: 02/10/24 ?? Procedure(s): US breast LT limited mamm only ?? Accession Number(s): [id number] ? cc: Giana Isbell MD; Rhona Badillo [...] DD/ 1215 ? TD/TT: 02/10/24 1231 ? Armor Reconnaissance Vehicle Crewman: ? Procedure Note Trish, Image - 02/10/2024 [place] [facility] [address] [place], [place] [address] Ultrasound Report Signed Patient: Sammy BushBertha#: [id number] : 1965Acct:[id number] Age/Sex: 58 / FADM Date: 02/10/24 Loc: ADELITA Attending Dr: Rhona Badillo MD Ordering Physician: Rhona Badillo MD Date of Service: 02/10/24 Procedure(s): US breast LT limited mamm only Accession Number(s): [id number] cc: Giana Isbell MD; Rhona Badillo MD [...] 02/10/24 1539 DD/ 1215 TD/TT: 02/10/24 1231 Armor Reconnaissance Vehicle Crewman: us [facility] External Provider IMG US PROCEDURES Edited Result - Final * (ABNORMAL) TSH W/Reflex to FT4 (02/06/2024 10:45 AM EST) TSH reflex Free T4 10.06(H) 0.32 - 4.0 uIU/mL [facility] Blood Venous blood specimen / Unknown 02/06/2024 10:45 AM EST 02/06/2024 10:45 AM EST us Giana Isbell MD LAB BLOOD ORDERABLES Final Result Performing Organization Address [facility] Co de Phone Number [facility] [address] [place] [address] [phone] * (ABNORMAL) T4, Free (02/06/2024 10:45 AM EST) Free T4 (Free Thyroxine) 0.68(L) 0.71 - 1.85 ng/dL [facility] 02/06/2024 10:4 5 AM EST 02/06/2024 10:45 AM EST us Generic External Data Provider LAB BLOOD ORDERAB LES Final Result Performing Organization Address [facility] de Phone Number [facility] [address] [place] [address] [phone] * BI MR Breast w and w/o Contrast Bilateral (02/06/2024 9:33 AM EST) Anatomical Region Laterality Modality Breast Bilateral Magnetic Resonan ce 02/06/2024 9:33 AM EST Narrative 02/10/2024 3:39 PM EST ? [facility] ?[address] ?[place] [address] ? Magnetic Resonance Report ? Signed with Addenda ? Patient: Tamia Sánchez,Tory ?MR#: [id number] ?? [id number] ? : 1965 ?Acct:[id number] ? Age/Sex: 58 / F ?ADM Date: 12/30/24 ? Loc: HO.MRI ? Attending Dr: Pardeep Marcos MD ? Ordering Physician: Pardeep Marcos MD ?? Date of Service: 02/06/24 ?? Procedure(s): MR breast BI wo/w con ?? Accession Number(s): [id number] ? cc: Giana Isbell MD; Pardeep Marcos [...] by Carissa Raza, DO in OV> ? 02/10/246 ? DD/ 0933 ? TD/TT: 02/06/24 1016 ? Armor Reconnaissance Vehicle Crewman: ? Procedure Note Donhernanter, Image - 02/13/2024 [place] [address] Magnetic Resonance Report Signed with Addenda Patient: Pat Bush#: [id number] : 1965Acct:[id number] Age/Sex: 58 / FADM Date: 02/06/24 Loc: HO.MRI Attending Dr: Pardeep Marcos MD Ordering Physician: Pardeep Marcos MD Date of Service: 02/06/24 Procedure(s): MR breast BI wo/w con Accession Number(s): [id number] cc: Giana Isbell MD; Pardeep Marcos MD [...] 02/10/24 1536 DD/ 0933 TD/TT: 02/06/24 1016 Armor Reconnaissance Vehicle Crewman: [facility] External Provider IMG MRI PROCEDURES Edited Result - Final * Surgical Pathology (01/18/2024 9:43 AM EST) Historical Provider LAB PATHOLOGY ORDERABLES Final Result * BREAST NDL CORE BIOPSY RT (01/18/2024 8:00 AM EST) Anatomical Region Laterality Modality Abdomen Ultrasound 01/18/2024 8:00 AM EST Narrative 01/18/2024 9:40 AM EST ? [facility] [place] ? [address] ?[place] [address] ? Ultrasound Report ? Signed with Addenda ? Patient: Tamia Sánchez,Tory ?MR#: [id number] ?? [id number] ? : 1965 ?Acct:[id number] ? Age/Sex: 58 / F ?ADM Date: 12/11/24 ? Loc: HO.MAMMO ? Attending Dr: Pardeep Marcos MD ? Ordering Physician: Pardeep Marcos MD ?? Date of Service: 01/18/24 ?? Procedure(s): US breast ndl core biopsy RT ?? Accession Number(s): [id number] ? cc: Giana Isbell MD; Pardeep Marcos [...] 01/18/24 0937 ? DD/ 0800 ? TD/TT: 01/18/248[address] ? Armor Reconnaissance Vehicle Crewman: ? Procedure Note Trish, Eliud - 01/25/2024 [place] [facility] [address] [place], [place] [address] Ultrasound Report Signed with Fani Patient: Pat Bush#: [id number] : 1965Acct:[id number] Age/Sex: 58 / FADM Date: 01/18/24 Loc: H[place] Attending Dr: Pardeep Marcos MD Ordering Physician: Pardeep Marcos MD Date of Service: 01/18/24 Procedure(s): US breast ndl core biopsy RT Accession Number(s): [id number] cc: Giana Isbell MD; Pardeep Marcos MD [...] OV> 01/18/2437 DD/ 0800 TD/TT: 01/18/24 0835 Armor Reconnaissance Vehicle Crewman: [facility] External Provider IMG US PROCEDURES Edited Result - Final * BI Mammogram Diagnostic Tomosynthesis Right (01/18/2024 8:00 AM EST) Anatomical Region Laterality Modality Breast Right Mammography 01/18/2024 8:00 AM EST Narrative 01/18/2024 9:40 AM EST ? [facility] ? [address] ?[place] [address] ? Mammography Report ? Signed with Addenda ? Patient: Tamia Sánchez,Tory ?MR#: [id number] ?? [id number] ? : 1965 ?Acct:[id number] ? Age/Sex: 58 / F ?ADM Date: 01/18/24 ? Loc: HO.MAMMO ? Attending Dr: Pardeep Marcos MD ? Ordering Physician: Pardeep Marcos MD ?Results: ? Date of Service: 01/18/24 ?Follow Up: ? Procedure(s): MM tomosynthesis diagnostic RT ?? Accession Number(s): [id number] ? cc: Giana Isbell MD; Pardeep Marcos [...] are made available. ? Electronically signed by: ??Carissaelenita Grahamninfa DO ??01/18/2024 09:37 AM EST ?? RP ? Dictated By: ?Carissa Raza DO ? Signed By: ?<Electronically signed by Carissa Raza, DO in OV> ? 01/18/24 0937 ? DD/ 0800 ? TD/TT: 01/18/24 0835 ? Armor Reconnaissance Vehicle Crewman: ? Procedure Note Donotuseinterpreter, Image - 01/25/2024 [place] [facility] [address] [place], [place] [address] Mammography Report Signed with Addenda Patient: Pat Bush#: [id number] : 1965Acct:[id number] Age/Sex: 58 / FADM Date: 01/18/24 Loc: HO.MAMMO Attending Dr: Pardeep Marcos MD Ordering Physician: Pardeep Marcos MDResults: Date of Service: 01/18/24Follow Up: Procedure(s): MM tomosynthesis diagnostic RT Accession Number(s): [id number] cc: Giana Isbell MD; Pardeep Marcos MD [...] by: Carissa Raza DO 01/18/2024 09:37 AM [facility] Dictated By: Carissa Raza DO Signed By: <Electronically signed by Carissa Raza DO in OV> 01/18/24 0937 DD/ 0800 TD/TT: 01/18/24 0835 Armor Reconnaissance Vehicle Crewman: [facility] External Provider IMG BI PROCEDURES Edited [...] HPV nRNA E6/E7 Not Detected Not Detected [facility] Comment:Methodology: Transcr iption-Mediated AmplificationThis assay detects E6/E7 viral messenger RNA (mRNA) from 14high-risk HPV types (16,18,31,33,35,39,45,51,52,56,58,59,66,68).Cervical sources are required for HPV testing.If a vaginal source from a patient who has had atotal hysterectomy with removal of cervix wassubmitted, please contact the testing laboratoryfor alternative testing options.For additional information, please refer tohttp://education.[employer]/faq/JOJ543g2(This link if provided for information/educational purposes only.)THIS TEST WAS PERFORMED AT:[facility] [address] [phone] FISCHER MD SOURCE: SEE NOTE [facility] Comment:None given Report Status: [facility] Clinical Information: SEE NOTE [facility] Comment:None given LMP: SEE NOTE [facility] Comment:NONE GIVEN Prev. PAP: SEE NOTE [facility] Comment:NONE GIVEN Prev. BX: SEE NOTE [facility] Comment:NONE GIVEN Statement Of Adequacy: SEE NOTE [facility] Comment:Satisfactory for tiffany luation.Endocervical/transformation zone componentpresent. General Categorization: [facility] Interpretation/Result: SEE NOTE [facility] Comment:Cytology Results: Ne gative for intraepitheliallesion or malignancy. Cytology Comment SEE NOTE [facility] Comment:This Pap test has be en evaluated with computerassisted technology. Weapons Designer: SEE NOTE [facility] Comment:YP, CT(ASCP)CT aniya christian location: [address] [address] Review Weapons Designer: [facility] Pathologist [facility] PAP Infection [facility] See Note SEE [facility] Comment:EXPLANATORY NOTE:The Pap is a screening test for cervical cancer. It isnot a diagnostic test and is subject to false negativeand false positive results. It is most reliable when asatisfactory sample, regularly obtained, is submittedwith relevant clinical findings and history, and whenthe Pap result is evaluated along with historic andcurrent clinical information. 10/25/2023 10/25/2023 Narrative [facility] - 11/01/2023 12:30 PM EDT SEE SCANNED RESULTS IN EMR Lou Gonzalez MD LAB PATHOLOGY ORDERABLES Ashlyn l Result Performing Organization Address [facility] Co de Phone Number [facility] [address] [place] [phone] * Hepatitis Panel, General (01/13/2023 9:50 AM EST) Hepatitis A IgM Nonreactive Nonreactive [facility] Comment:IgM antibodies to RUELAS V not detected; does not exclude earlyacute or recovered HAV infection. ~Hepatitis B Surface Antibody NONREACTIVE Nonreactive [facility] Comment:Nonreactive: < 8.00 mIU/mL Hepatitis B Core Antibody Nonreactive Nonreactive [facility] Hepatitis C Antibody Nonreactive Nonreactive [facility] Comment:Antibodies to HCV no t detected; does not exclude early acuteHCV infection. Hepatitis B Surface Ag Negative Negative [facility] 01/13/2023 9:50 AM EST 01/13/2023 9:52 AM EST Generic External Data Provider LAB BLOOD ORDERAB LES Final Result Performing Organization Address [facility] Co de Phone Number [facility] [address] [place] [phone] * (ABNORMAL) LIPID PANEL, STANDARD (08/04/2021 [...] ?? Esteban JACOBS et al. NIC. 2013;310(19): 9012-1427 ?? (http://[employer]/faq/TXH419) Non-HDL Cholesterol 188(H) <130 mg/dL (calc) [facility] Comment: For patients with diabetes plus 1 major ASCVD risk ?? factor, treating to a non-HDL-C goal of <100 mg/dL ?? (LDL-C of <70 mg/dL) is considered a therapeutic ?? option. Triglycerides 189(H) <150 mg/dL [facility] 08/04/2021 9:06 AM EDT Giana Isbell MD LAB BLOOD ORDERABLES Final Result [facility] [address] * Hm Colonoscopy (12/02/2015) Colonoscopy Normal Normal Narrative Lily Sanchez - 12/02/2015 Recommended 10 year follow up Historical Provider HEALTH MAINTENANCE Final Result from Last 3 Months or Most Recently Relevant to Health Maintenance Insurance [address] [address] - [facility] [employer] Care Teams Infection Control Nurse Relationship Specialty Start Date End Date Giana Isbell MD [address] [place] [address] PCP - General Internal Medicine 09/07/18
--- OUTSIDE RECORDS SUMMARY | 2024-04-09 14:14 | XMS_ITS | Encounter Summary ---
Author Organization [employer] Address [address] [facility] [address]t [place] [address] Care Team Providers Care Combination Machine Tender Name Role Phone Giana Isbell MD Primary Care Provider [phone] Reason for Visit * Reason Comments Transition Of Care (Tcm) HDF unscheduled LVM Encounter Details Date Type Department Care Team ([facility] st Contact Info) Description 03/19/2024 Patient Outreach [facility] MEDICINE [address] [place] [address] Giana Isbell MD [address] [place] [address] Transition Of Care (Tcm) (HDF unscheduled LVM [...] Admission/Visit 03/13/24 Date of Discharge 03/16/24 Facility [facility] Diagnosis pneumonia Disposition Discharged Home Follow-Up [...] and Wednesdays,and Walk-In Urgent Care Located in [facility]. Patient provided with after-hours line for [facility], , which offer night time triage service and option to transfer to electronic integrated systems mechanic provider if needed. CC scanned discharge summary into patient's chart. CC will place additional outreach call within2-5 business days. documented in this encounter Plan of Treatment Upcoming Encounters Date Type Department Care Team (Late st Contact Info) Description 06/11/2024 9:00 AM EDT Office Visit [facility] OPTOMETRY [address] [place], [place] [phone] Dawna Pro, OD [address] [place] [address] 06/26/2024 1:30 PM EDT Office Visit [facility] CHC MED & PEDS [address] [place] [address] Giana Isbell MD [address] [place] [address] documented as of this encounter Visit Diagnoses Not on filedocumented in this encounter Additional Health Concerns Assessment Noted Time PHQ-9 Depression Total Score: 7 07/30/19 23 10:13 AM EDT documented as of this encounter Care Teams Combination Machine Tender Relationship Specialty Start Date End Date Giana Isbell MD [address] [place] [address] PCP - General Internal Medicine 09/07/18 documented as of this encounter
--- OUTSIDE RECORDS SUMMARY | 2024-04-09 14:14 | XMS_ITS | Encounter Summary ---
Author Organization [employer] Address [address] [facility] [address] [place] [address] Care Team Providers Care Wet Process [place] Head Assistant Name Role Phone Giana Isbell MD Primary Care Provider [phone] Reason for Visit * Reason Onset Date Comments Nurse Triage 08/02/2023 Encounter Details Date Type Department Care Team ([facility] Contact Info) Description 08/02/2023 Telephone [facility] CHC MED & PEDS [address] [place] [address] Giana Isbell MD [address] [place] [address] Nurse Triage Social History Tobacco Use Types [...] 08/02/2023 10:38 AM EDT Triage call with [employer] [place] [id number] Pt reports a small lump in the corner of lower left eye lid. Pt reports it is red, itchy, painful. This doesn't effect vision and Pt has never had this before. Pt has had this for more than a week and it is increasing in size. No available apts ion [facility] . Pt is advised to come to [facility] to be seen by provider and Pt [...] Description 06/11/2024 9:00 AM EDT Office Visit [facility] OPTOMETRY [address] [place] [address] Dawna Pro, OD [address] [place] [address] 06/26/2024 1:30 PM EDT Office Visit [facility] CHC MED & PEDS [address] [place] [address] Giana Isbell MD [address] [place] [address] documented as of this encounter Visit Diagnoses Not on filedocumented in this encounter Additional Health Concerns Assessment Noted Time PHQ-9 Depression Total Score: 7 07/30/19 23 10:13 AM EDT documented as of this encounter Care Teams Wet Process Miller Head Assistant Relationship Specialty Start Date End Date Giana Isbell MD [address] [place] [address] PCP - General Internal Medicine 09/07/18 documented as of this encounter
--- OUTSIDE RECORDS SUMMARY | 2024-04-09 14:14 | XMS_ITS | Encounter Summary ---
Author Organization [employer] Address [address] [facility] [address] [place] [address] Care Team Providers Care Legal Records Manager Name Role Phone Giana Isbell MD Primary Care Provider [phone] Encounter Details Date Type Department Care Team ([facility] Contact Info) Description 02/17/2024 Orders Only [facility] [address] [place] [address] Provider, MD Kathi Social History Tobacco Use [...] 9:00 AM EDT Office Visit [facility] OPTOMETRY [address] [place] [address] MortezaDawna, OD [address] [place] [address] 06/26/2024 1:30 PM EDT Office Visit [facility] CHC MED & PEDS [address] [place], [place] [phone] Giana Isbell MD [address] [place], [place] [phone] documented as of this encounter Procedures Procedure [...] documented as of this encounter Care Teams Legal Records Manager Relationship Specialty Start Date End Date Giana Isbell MD [address] [place] [address] PCP - General Internal Medicine 09/07/18 documented as of this encounter
--- OUTSIDE RECORDS SUMMARY | 2024-04-09 14:14 | XMS_ITS | Encounter Summary ---
Author Organization [employer] Address [address] [place] [address] Care Team Providers Care Sr. Manager Name Role Phone Giana Isbell MD Primary Care Provider [phone] Encounter Details Date Type Department Care Team [...] Description 06/11/2024 9:00 AM EDT Office Visit [facility] OPTOMETRY [address] [place] [address] Morteza, Dawna, OD [address] [place] [address] 06/26/2024 1:30 PM EDT Office Visit [facility] CHC MED & PEDS [address] [place] [address] Giana Isbell MD [address] [place] [address] documented as of this encounter Visit Diagnoses Not on filedocumented in this encounter Additional Health Concerns Assessment Noted Time PHQ-9 Depression Total Score: 24 03/28/ 025 9:26 AM EST documented as of this encounter Care Teams Sr. Manager Relationship Specialty Start Date End Date Giana Isbell MD [address] [place] [address] PCP - General Internal Medicine 09/07/18 documented as of this encounter
--- OUTSIDE RECORDS SUMMARY | 2024-04-09 14:14 | XMS_ITS | Encounter Summary ---
Author Organization [employer] Address [address] [facility] 7t [place] [address] Care Team Providers Care Conference Planner Name Role Phone Giana Isbell MD Primary Care Provider [phone] Encounter Details Date Type Department Care Team ([facility] st Contact Info) Description 05/06/2023 Orders Only [facility] CHC MED & PEDS [address] [place] [address] Giana Isbell MD 505 [place] [address] Acquired hypothyroidism (Primary Dx) Social History Tobacco [...] 06/11/2024 9:00 AM EDT Office Visit [facility] OPTOMETRY [address] [place], [place] [phone] Morteza, Dawna, OD [address] [place] [address] 06/26/2024 1:30 PM EDT Office Visit [facility] CHC MED & PEDS [address] [place], [place] [phone] Giana Isbell MD 505 [place] [address] documented as of this encounter Procedures Procedure Name Priority Date/Time Associated Diagnosis Comments TSH W/REFLEX TO FT4 Routine 02/06/2024 10:45 AM EST Acquired hypothyroidism documented in this encounter Results * (ABNORMAL) TSH W/Reflex to FT4 (02/06/2024 10:45 AM EST) TSH reflex Free T4 10.06(H) 0.32 - 4.0 uIU/mL [facility] Blood Venous blood specimen / Unknown 02/06/2024 10:45 AM EST 02/06/2024 10:45 AM EST Giana Isbell MD LAB BLOOD ORDERABLES Final Result [facility] [address] [place] [address] [phone] documented in this encounter Visit Diagnoses Diagnosis Acquired hypothyroidism- Primary Unspecified hypothyroidism documented in this encounter Additional Health Concerns Assessment Noted Time PHQ-9 Depression Total Score: 7 07/30/19 23 10:13 AM EDT documented as of this encounter Care Teams Conference Planner Relationship Specialty Start Date End Date Giana Isbell MD [address] [place] [address] PCP - General Internal Medicine 09/07/18 documented as of this encounter
--- OUTSIDE RECORDS SUMMARY | 2024-04-09 14:14 | XMS_ITS | Encounter Summary ---
Author Organization [employer] Address [address] [facility] [address] 7t [place] [address] Care Team Providers Care Certified Meeting Professional Name Role Phone Giana Isbell MD Primary Care Provider [phone] Encounter Details Date Type Department Care Team ([facility] st Contact Info) Description 02/06/2024 Orders Only [facility] CHC MED & PEDS [address] [place] [address] Giana Isbell MD [address] [place] [address] Acquired hypothyroidism (Primary Dx) Social History Tobacco [...] 06/11/2024 9:00 AM EDT Office Visit [facility] OPTOMETRY [address] [place] [address] Morteza, Megan, OD [address] [place] [address] 06/26/2024 1:30 PM EDT Office Visit [facility] CHC MED & PEDS [address] [place], [place] [phone] Giana Isbell MD 505 [place], [place] [phone] Scheduled Orders Name Type Priority Associated Diagnoses [...] EST Narrative 02/10/2024 3:39 PM EST ? [facility] ?[address] ?[place] [address] ? Magnetic Resonance Report ? Signed with Addenda ? Patient: Tamia Sánchez,Tory ?MR#: [id number] ?? [id number] ? : 1965 ?Acct:[id number] ? Age/Sex: 58 / F ?ADM Date: 12/30/24 ? Loc: HO.MRI ? Attending Dr: Pardeep Marcos MD ? Ordering Physician: Pardeep Marcos MD ?? Date of Service: 02/06/24 ?? Procedure(s): MR breast BI wo/w con ?? Accession Number(s): [id number] ? cc: Giana Isbell MD; Pardeep Marcos [...] DD/ 0933 ? TD/TT: 02/06/24 1016 ? Pattern Data Operator: ? Procedure Note Donhernanter, Image - 02/13/2024 [place] [address] Magnetic Resonance Report Signed with Addenda Patient: Pat Bush#: [id number] : 1965Acct:[id number] Age/Sex: 58 / FADM Date: 02/06/24 Loc: HO.MRI Attending Dr: Pardeep Marcos MD Ordering Physician: Pardeep Marcos MD Date of Service: 02/06/24 Procedure(s): MR breast BI wo/w con Accession Number(s): [id number] cc: Giana Isbell MD; Pardeep Marcos MD [...] 02/10/2024 03:36 PM [facility] Dictated By: Carissa Raza DO Signed By: <Electronically signed by Carissa Raza DO in OV> 02/10/24 1536 DD/ 0933 TD/TT: 02/06/24 1016 Pattern Data Operator: [facility] External Provider IMG MRI PROCEDURES Edited Result - Final documented in this encounter Visit Diagnoses Diagnosis Acquired hypothyroidism- Primary Unspecified hypothyroidism documented in this encounter Additional Health Concerns Assessment Noted Time PHQ-9 Depression Total Score: 7 07/30/19 23 10:13 AM EDT documented as of this encounter Care Teams Certified Meeting Professional Relationship Specialty Start Date End Date Giana Isbell MD [address] [place] [address] PCP - General Internal Medicine 09/07/18 documented as of this encounter
--- OUTSIDE RECORDS SUMMARY | 2024-04-09 14:14 | XMS_ITS | Encounter Summary ---
Author Organization [employer] Address [address] [place] [address] 7 [place] [address] Care Team Providers Care Pest Control Specialist Name Role Phone Giana Isbell MD Primary Care Provider [phone] Reason for Referral * Imaging (Urgent) - Closed Specialty Diagnoses / Procedures Referred By Ervin chávez Referred To Contact Radiology Diagnoses Elevated alkaline phosphatase level Procedures US Abdomen Complete Giana Isbell MD [address] [place] [address] Phone: tel: fax: [address] Phone: tel: fax: Referral ID Status Reason Start Date Expiration Date Visits Re quested Visits Authorized [id number] Closed 02/17/2023 02/17/2024 1 1 Encounter Details Date Type Department Care Team (Late st Contact Info) Description 02/17/2023 Orders Only [facility] CHC MED & PEDS [address] [place], [place] [phone] Giana Isbell MD [address] [place], [place] [phone] Elevated alkaline phosphatase level (Primary Dx); Left [...] Visit [facility] OPTOMETRY [address] [place] [address] Morteza, Dawna, OD [address] [place] [address] 06/26/2024 1:30 PM EDT Office Visit [facility] CHC MED & PEDS [address] [place], [place] [phone] Giana Isbell MD [address] [place], [place] [phone] documented as of this encounter Procedures Procedure Name Priority Date/Time Associated Diagnosis Comments US ABDOMEN COMPLETE Urgent 03/21/2023 9 :29 AM EST Elevated alkaline phosphatase level documented in this encounter Results * US Abdomen Complete (03/21/2023 9:29 AM EST) Anatomical Region Laterality Modality Abdomen Ultrasound 03/21/2023 9:29 AM EST Narrative 03/22/2023 9:16 AM EST ? [facility] ?[address] ?[place] [address] ? Ultrasound Report ? Signed ? Patient: Tory Bush ?MR#: [id number] ?? [id number] ? : 1965 ?Acct:[id number] ? Age/Sex: 57 / F ?ADM Date: 03/21/23 ? Loc: HO.US ? Attending Dr: Giana Isbell MD ? Ordering Physician: Giana Isbell MD ?? Date of Service: 03/21/23 ?? Procedure(s): US abdomen complete ?? Accession Number(s): [id number] ? cc: Giana Isbell MD ? EXAMINATION: [...] 03/22/23911 ? DD/ 0929 ? TD/TT: ? Hot Dog Vendor: ? Procedure Note Trish, Image - 03/22/2023 [place] [address] Ultrasound Report Signed Patient: Pat Bush#: [id number] : 1965Acct:[id number] Age/Sex: 57 / FADM Date: 03/21/23 Loc: HO.US Attending Dr: Giana Isbell MD Ordering Physician: Giana Isbell MD Date of Service: 03/21/23 Procedure(s): US abdomen complete Accession Number(s): [id number] cc: Giana Isbell MD EXAMINATION: US ABDOMEN [...] MD in OV> 03/22/23911 DD/ 8 TD/TT: Hot Dog Vendor: us Giana Isbell MD IMG US PROCEDURES Final Res ult documented in this encounter Visit Diagnoses Diagnosis Elevated alkaline phosphatase level- Primary Left upper quadrant abdominal pain documented in this encounter Additional Health Concerns Assessment Noted Time PHQ-9 Depression Total Score: 7 07/30/19 23 10:13 AM EDT documented as of this encounter Care Teams Pest Control Specialist Relationship Specialty Start Date End Date Giana Isbell MD [address] [place] [address] PCP - General Internal Medicine 09/07/18 documented as of this encounter
--- OUTSIDE RECORDS SUMMARY | 2024-04-09 14:14 | XMS_ITS | Encounter Summary ---
Author Organization [employer] Address 75 [facility] 7t [place] [address] Care Team Providers Care General Production Worker Name Role Phone Giana Isbell MD Primary Care Provider [phone] Reason for Visit * Reason Onset Date Comments Hospital Follow-up 07/20/2022 Encounter Details Date Type Department Care Team ([facility] Contact Info) Description 07/20/2022 Telephone [facility] CHC MED & PEDS [address] [place] [address] Giana Isbell MD [address] [place] [address] Hospital Follow-up Social History Tobacco Use Types [...] Upcoming Encounters Date Type Department Care Team ([facility] Contact Info) Description 06/11/2024 9:00 AM EDT Office Visit [facility] OPTOMETRY [address] [place] [address] Dawna Pro, OD [address] [place] [address] 06/26/2024 1:30 PM EDT Office Visit [facility] CHC MED & PEDS [address] [place] [address] Giana Isbell MD 505 [place] [address] documented as of this encounter Visit Diagnoses Not on filedocumented in this encounter Care Teams General Production Worker Relationship Specialty Start Date End Date Giana Isbell MD [address] [place] [address] PCP - General Internal Medicine 09/07/18 documented as of this encounter
--- OUTSIDE RECORDS SUMMARY | 2024-04-09 14:14 | XMS_ITS | Encounter Summary ---
Author Organization [employer] Address 75 [facility] 7t [place] [address] Care Team Providers Care Anthropology Instructor Name Role Phone Giana Isbell MD Primary Care Provider [phone] Reason for Visit * Reason Comments Med Refill Encounter Details Date Type Department Care Team ([facility] Contact Info) Description 03/31/2022 Refill [facility] CHC MED & PEDS 505 [place], [place] [phone] Giana Isbell MD 505 [place] [address] Acquired hypothyroidism (Primary Dx); Other constipation; Depressive [...] Upcoming Encounters Date Type Department Care Team ([facility] Contact Info) Description 06/11/2024 9:00 AM EDT Office Visit [facility] OPTOMETRY [address] [place], [place] [phone] Morteza, Dawna, OD [address] [place] [address] 06/26/2024 1:30 PM EDT Office Visit [facility] CHC MED & PEDS [address] [place] [address] Giana Isbell MD [address] [place] [address] documented as of this encounter Visit Diagnoses Diagnosis Acquired hypothyroidism- Primary Unspecified hypothyroidism Other constipation Depressive disorder Depressive disorder, not elsewhere classified Seasonal allergies Allergic rhinitis, cause unspecified Migraine without aura and without status migrainosus, not intractable documented in this encounter Care Teams Anthropology Instructor Relationship Specialty Start Date End Date Giana Isbell MD 505 [place] [address] PCP - General Internal Medicine 09/07/18 documented as of this encounter
== END 2024-04-09 12:08 | disposition home or self-care (01) ==
LOC: HO.MAMMO 12:07
PROVIDERS: PCP Internal Medicine; Visit Provider Internal Medicine
DX: N63.10 Unspecified lump in the right breast, unspecified quadrant (principal); C50.911 Malignant neoplasm of unspecified site of right female breast; E89.0 Postprocedural hypothyroidism; R07.2 Precordial pain; R93.1 Abnormal findings on diagnostic imaging of heart and coronary circulation; Z09 Encounter for follow-up examination after completed treatment for conditions other than malignant neoplasm
CPT/HCPCS: 76642; 99212

== ENCOUNTER → 2024-04-09 12:30 | Outpatient (BNV) | payer OTHER, SELFPAY | PROVIDERS: PCP Internal Medicine; Visit Provider Internal Medicine | DX: C50.911 Malignant neoplasm of unspecified site of right female breast (principal) | CPT/HCPCS: 76642 ==

== ENCOUNTER 2024-04-09 12:53 | Outpatient (AMB) | payer OTHER, SELFPAY ==
[2024-04-09 12:57] VITALS: BP 90/70; PULSE 108; O2SAT 92; BMI 26.7
--- NOTE | 2024-04-09 12:57 | MHC.OFFVIS ---
Vital Signs 04/09/24 12:57 Height 5 ft Weight 136 lb 10.986 oz BMI 26.7 BP 90/70 Blood Pressure Location Lt brachial Position Sitting Pulse 108 H Pulse Source Pulse Oximeter Pulse Oximetry (%) 92 Oxygen Delivery Method Room Air Intake Visit Reasons: f/u Hypothyroidism Intake Note: Patient present today for post-surgical hypothyroidism follow up visit. Manager Skilled Required: Yes Manager Skilled Language: Bundle Packer Services: Manager Skilled Present Manager Skilled Name: Kel [id number] Information Interpreted: non-clinical & clinical Accompanied by: Brother Allergies acetaminophen [Vicodin] Allergy (Unknown, Verified 04/09/24 13:01) unk Penicillins Adverse Reaction (Mild, Verified 04/09/24 13:01) HYPERTENSION hydrocodone [From VICODIN] Adverse Reaction (Unknown, Verified 04/09/24 13:01) HIGH BP HPI Comments Details: 58-year-old female coming in today for follow up of post surgical hypothyroidism. Here with brother today Mr Agn HPI from prior visit She has a history of right thyroid lobectomy many years ago due to multinodular thyroid, about 25 years ago per the chart, with benign pathology per patient. Subsequently in October 2017 she was found to have thyroglobulin and TPO antibodies. She was lost to follow up in the middle for some time. Subsequently she was found to have left sided nodules in her thyroid. She underwent FNA biopsy of the left lower pole (documented as 3.5 cm in the chart but 1.7 cm on US) left-sided nodule and the left upper pole 1.5 cm nodule in August 2021 with benign cytology. Most recent ultrasound from April 2022, showed stable size of the nodules. She was continuing to have progressively worsening dysphagia on hence was referred to Dr. Nilsa Perdue for completion thyroidectomy, status post completion thyroidectomy in February 2023. Pathology was benign, I reviewed these results. She reports swallowing improved after the surgery. Most recent blood work from 10/06/2023 showed elevated TSH of 4.54, free T4 normal of 1.01. Last visit October 2023 dose of levothyroxine increased from 100-112 mcg daily. Endorses constipation. Denies palpitations, tremors. Denies heat or cold intolerance. Does endorse some tiredness. Weight is stable. Denies hair or skin changes. Patient denies any history of childhood neck radiation. Denies having ever used lithium, amiodarone or biotin supplements. Patient denies any family history of thyroid cancer or thyroid disease. Interval history Diagnosed with a right invasive ductal breast carcinoma January 2024. Currently on chemotherapy. Patient describes a lot of stomach discomfort a few minutes after taking levothyroxine. She says this did not happen when she used to be on the brand name previously. She has not been taking her medication consistently because of this. Labs 02/23/2024 showed TSH of 11.89, subsequently she had normal TSH on 03/08/2024 at 2.36. Most recent labs on 03/16/2024 showed TSH of 17.14 with free T4 of 0.88. She tells me that her primary care physician increased her dose of levothyroxine to 125 from 112 mcg daily. This was done about 2 weeks ago sometime in mid March. At this time I feel she might have not been taking it consistently resulting in the increased TSH rather than because of ineffective dose. Physical exam General: sitting comfortably in no acute distress HEENT: normocephalic/atraumatic, Neck: supple, symmetrical, well healed scar Cardiac: normal heart sounds, tachycardic Pulm: normal breath sounds B/L, no added breath sounds Abd: not distended, no tenderness Extremities: no edema, no signs of myxedema Neuro: AAO x3, Speech: normal, no facial droop, moving all 4 extremities Laboratory Tests 05/05/23 10/06/23 10:37 14:55 TSH 57.71 H 4.54 H Free T4 0.47 L 1.01 Laboratory Tests 02/06/24 02/23/24 03/08/24 10:45 15:00 09:45 TSH 10.06 H 11.89 H 2.36 Free T4 0.68 L 03/16/24 07:00 TSH 17.14 H Free T4 0.88 US THYROID 04/29 CLINICAL INFORMATION: Nontoxic multinodular goiter. COMPARISON: Ultrasound thyroid 02/04/2021. US-guided thyroid biopsy 08/27/2021. TECHNIQUE: Linear transducer grayscale and color Doppler examination with attention to the region of the thyroid. FINDINGS: SIZE: Measurements of the solitary left thyroid lobe and nodules are given in sagittal, anteroposterior and transverse dimensions respectively. Right Thyroid Lobe: Surgically absent. Left Thyroid Lobe: 3.7 x 1.5 x 1.7 cm, volume 4.8 mL. Previously 3.9 x 1.7 x 2.3 cm, volume 7.8 mL. Parenchyma: The gland echotexture is heterogeneous. Thyroid vascularity is increased. Isthmus: 0.7 cm in maximum AP dimension. Previously not measured. Estimated total number of nodules greater than or equal to 1 cm: 2. Library Cataloging Technician nodules are described as follows: 1. Location: Left superior. Size: 1.4 x 0.9 x 1.0 cm, volume 0.6 mL. Previously: 1.7 x 1.2 x 1.4 cm, volume 1.5 mL. Nodule characteristics: Composition: Solid (2). Echogenicity: Hypoechoic (2). Shape: As tall as wide (0). Margins: Smooth (0). Echogenic Foci: None (0). ACR TI-RADS total points: 4 Previous: 3 ACR TI-RADS category: 4 Previous: 3 Significant change in size (>/= 20% in 2 dimensions and minimal increase of 2 mm or 50% or greater increase in volume): No Change in features: Yes Change in ACR TI-RADS risk category: Yes 2. Location: Left inferior. Size: 1.6 x 1.1 x 1.6 cm, volume 1.5 mL. Previously: 1.5 x 1.3 x 1.4 cm, volume 1.4 mL. Nodule characteristics: Composition: Mixed cystic and solid (1). Echogenicity: Isoechoic (1). Shape: Not taller than wide (0). Margins: Smooth (0). Echogenic Foci: Macrocalcifications (1). ACR TI-RADS total points: 3 Previous: 4 ACR TI-RADS category: 3 Previous: 4 Significant change in size (>/= 20% in 2 dimensions and minimal increase of 2 mm or 50% or greater increase in volume): No Change in features: Yes Change in ACR TI-RADS risk category: Yes 3. Location: Isthmus. Size: 0.6 x 0.7 x 0.7 cm, volume 0.2 mL. Previously: Not seen on the previous study. Nodule characteristics: Composition: Solid (2). Echogenicity: Isoechoic (1). Shape: Not taller than wide (0). Margins: Smooth (0). Echogenic Foci: None (0). ACR TI-RADS total points: 3 ACR TI-RADS category: 3 NODES: No lymphadenopathy is seen in the tissue surrounding the thyroid gland. US/US thyroid IMPRESSION: A 1.4 cm TR 4 left superior thyroid nodule is increased in size. Recommend one-year follow-up thyroid ultrasound. A 1.6 TR 3 thyroid nodule is decreased in size, attention on follow-up imaging. A 0.7 cm TR 3 left thyroid nodule is new from prior, and does not meet criteria for follow-up given size less than 1.5 cm.. [facility] Medical History Anemia GERD (gastroesophageal reflux disease) Fatty liver Invasive ductal carcinoma of right breast Type 2 diabetes mellitus Vitamin D deficiency Multinodular thyroid Hypothyroidism Surgical History History of lobectomy of thyroid Hx of colonoscopy History of esophagogastroduodenoscopy (EGD) History of carpal tunnel surgery of left wrist Tubal ligation status Hx of foot surgery Hx of epicondylectomy Hx of cholecystectomy Hx of thyroidectomy Hx of appendectomy Family History Father No problems noted. 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 Gender identity: Female Female Reproductive History Menstrual Age of Menarche: 15 Physical Exam Vital Signs: Last Vital Signs Pulse 108 H 04/09/24 12:57 BP 90/70 04/09/24 12:57 Pulse Ox 92 04/09/24 12:57 Oxygen Delivery Method Room Air 04/09/24 12:57 BMI result Body Mass Index 26.7 Assessment & Plan Assessment & Plan (1) Hypothyroidism: Code(s): E03.9 - Hypothyroidism, unspecified Category: Medical Qualifiers: Hypothyroidism type: postoperative Qualified Code(s): E89.0 - Postprocedural hypothyroidism Plan: Patient with history of multinodular goiter status post right lobectomy about 25 years ago, with left-sided thyroid lobe nodules resulting in dysphagia, status post completion thyroidectomy in February [address] Nilsa Perdue for worsening compressive symptoms, with benign pathology, now on levothyroxine 100 mcg daily. She does have some symptoms of hypothyroidism including worsening tiredness. However she is also on chemotherapy for right invasive ductal breast cancer diagnosed in January 2024. Labs 02/23/2024 showed TSH of 11.89, subsequently she had normal TSH on 03/08/2024 at 2.36. Most recent labs on 03/16/2024 showed TSH of 17.14 with free T4 of 0.88. She tells me that her primary care physician increased her dose of levothyroxine to 125 from 112 mcg daily. This was done about 2 weeks ago sometime in mid March. At this time I feel she might have not been taking it consistently resulting in the increased TSH rather than because of ineffective dose. I will prescribe her brand-name Synthroid. Plan: -change to brand name Synthroid 125 mcg daily -till brand-name gets approved, she can try taking the generic with breakfast to see if it is better tolerate it. -ordered TSH and free T4 to be done in 6 weeks , -follow up in 7 weeks Plan I spent 30 minutes in reviewing the record, seeing the patient and documenting in the medical record. Orders: Orders Thyroid Stimulating Hormone Today E89.0 - Postprocedural hypothyroidism Free T4 (Free Thyroxine) Today E89.0 - Postprocedural hypothyroidism Medications: New Synthroid (levothyroxine) BRAND NAME ONLY SHASHANK no substitution allowed, patient unable to tolerate generic and having stomach discomfort 125 mcg PO DAILY 30 tabs 5RF NS Discontinued Synthroid (levothyroxine) PATIENT SAID SHE IS OK WITH TAKING GENERIC Discontinued Reason: Patient Completed Course 112 mcg PO DAILY 30 tabs 5RF NS Patient Instructions: Take synthroid 125 mcg daily, the brand name might take a week or so to get approved, please try to take generic in the meantime, you can try taking it with breakfast to see if you tolerate it better Otherwise once you have the brand name synthroid, take it shahida thing in the morning on an empty stomach and wait at least 40 mins to an hour before eating breakfast Do blood work in 6 weeks after you have consisitently been taking the medicine Follow up in 7 weeks [place] Synthroid 125 mcg por d?a. La jose m registrada puede tardar janene semana aproximadamente en ser aprobada. Mientras tanto, intente ne el gen?rico. Puede intentar tomarlo con el desayuno para lela si lo tolera mejor. De lo contrario, janene vez que tenga Synthroid de jose m registrada, t?contreras a primera hora de la ma?zahida con el est?tate vac?o y espere al menos 40 minutos a janene hora antes de desayunar. Realice an?lisis de george en 6 semanas despu?s de luis alfredo estado tomando el medicamento de manera aixa. Realice un seguimiento en 7 semanas. Coding Level of Care Code Est Pt Level 4 (58109) Diagnoses Postoperative hypothyroidism E89.0 Hypothyroidism type: postoperative Time Spent (min) 30
--- OUTSIDE RECORDS SUMMARY | 2024-04-09 15:04 | XMS_ITS | Encounter Summary ---
Author Organization [employer] Address 75 [facility] 7t [place] [address] Care Team Providers Care Warehouse Operations Associate Name Role Phone Giana Isbell MD Primary Care Provider [phone] Reason for Visit * Reason Comments Transition Of Care (Tcm) HDF scheduled a nd SDOH screening negative and Tobacco screening negative Encounter Details Date Type Department Care Team (Late st Contact Info) Description 03/20/2024 Patient Outreach [facility] MEDICINE [address] [place] [address] Giana Isbell MD [address] [place] [address] Transition Of Care (Tcm) (HDF scheduled and [...] 03/20/24 0836 Hospital [facility] Type of Visit Hospital Admission Date of Admission/Visit 03/13/24 Date of Discharge 03/16/24 [facility] Diagnosis Pneumonia Disposition Discharged Home [...] to scheduling. Patient also notified that a [facility] pharmacist will be reaching [...] Wednesdays, and Walk-In Urgent Care Located in [facility] Emergency Department. Patient provided with after-hours line for [facility], , which offer night time triage ser vice and option to transfer to manager community relations provider if needed. CC scanned discharge summary into patient's chart. Biggest concern for appointment at this time is no concerns. Appropriate screenings completed in anticipation of appointment. documented in this encounter Plan of Treatment Upcoming Encounters Date Type Department Care Team (Late st Contact Info) Description 06/11/2024 9:00 AM EDT Office Visit [facility] OPTOMETRY [address] [place], [place] [phone] MortezaKeon, OD [address] [place] [address] 06/26/2024 1:30 PM EDT Office Visit [facility] CHC MED & PEDS [address] [place] [address] Giana Isbell MD 505 [place] [address] documented as of this encounter Visit Diagnoses Not on filedocumented in this encounter Additional Health Concerns Assessment Noted Time PHQ-9 Depression Total Score: 7 07/30/19 23 10:13 AM EDT documented as of this encounter Care Teams Warehouse Operations Associate Relationship Specialty Start Date End Date Giana Isbell MD 505 [place] [address] PCP - General Internal Medicine 09/07/18 documented as of this encounter
--- OUTSIDE RECORDS SUMMARY | 2024-04-09 15:04 | XMS_ITS | Encounter Summary ---
Author Organization [employer] Address 75 [facility] 7t [place] [address] Care Team Providers Care Retail Account Specialist Name Role Phone Giana Isbell MD Primary Care Provider [phone] Reason for Visit * Reason Comments Hospital discharge follow-up Encounter Details Date Type Department Care Team ([facility] Contact Info) Description 03/28/2024 9:15 AM EST Office Visit [facility] CHC MED & PEDS [address] [place] [address] Giana Isbell MD 505 [place] [address] Acute cough (Primary Dx); Acquired hypothyroidism; SOB [...] breast Cervical cancer screening Pre-diabetes Fractured dental caodaism without loss of material Closed fracture of [...] 5 Elastic Bandages & Supports (Knee Support) [facility] H/o knee instability. 2 each 0 famotidine [...] Visit [facility] OPTOMETRY [address] [place], [place] [phone] Morteza, Dawna, OD [address] [place] [address] 06/26/2024 1:30 PM EDT Office Visit [facility] CHC MED & PEDS [address] [place], [place] [phone] Giana Isbell MD 505 [place], [place] [phone] Scheduled Orders Name Type Priority Associated Diagnoses [...] documented as of this encounter Care Teams Retail Account Specialist Relationship Specialty Start Date End Date Giana Isbell MD [address] [place], [place] [phone] PCP - General Internal Medicine 09/07/18 documented as of this encounter
--- OUTSIDE RECORDS SUMMARY | 2024-04-09 15:04 | XMS_ITS | Encounter Summary ---
Author Organization [employer] Address 75 [facility] 7t [place] [address] Care Team Providers Care Sand Control Worker Name Role Phone Giana Isbell MD Primary Care Provider [phone] Reason for Visit * Reason Onset Date Comments Medication Question 04/02/2024 Encounter Details Date Type Department Care Team ([facility] Contact Info) Description 04/02/2024 Telephone [facility] MEDICINE [address] [place] [address] Giana Isbell MD 505 [place] [address] Medication Question Social History Tobacco Use Types [...] Tc to pt via s id: [id number] to let them know per PCP Ms. Tory Cantrell can take the protonix at night, 3 hours after dinner with an empty stomach. No answer, lvm to return call and ask to speak to [facility] nurses. * Telephone Encounter - Annalee Polanco RN - 04/02/2024 2:19 PM EST TC to pt using software engineer mobile services. Pt stated that they have stomach [...] Original medicationthat she had. Contact Pt at [phone] documented in this encounter Plan of Treatment Upcoming Encounters Date Type Department Care Team (Late st Contact Info) Description 06/11/2024 9:00 AM EDT Office Visit [facility] OPTOMETRY [address] [place], [place] [phone] MortezaDawna priest, OD [address] [place] [address] 06/26/2024 1:30 PM EDT Office Visit [facility] CHC MED & PEDS [address] [place], [place] [phone] Giana Isbell MD [address] [place], [place] [phone] documented as of this encounter Visit Diagnoses Not on filedocumented in this encounter Additional Health Concerns Assessment Noted Time PHQ-9 Depression Total Score: 24 025 9:26 AM EST documented as of this encounter Care Teams Sand Control Worker Relationship Specialty Start Date End Date Giana Isbell MD [address] [place], [place] [phone] PCP - General Internal Medicine 09/07/18 documented as of this encounter
--- OUTSIDE RECORDS SUMMARY | 2024-04-09 15:04 | XMS_ITS | Encounter Summary ---
Author Organization [employer] Address [address] [place] [address] 7 [place] [address] Care Team Providers Care Union Organizer Name Role Phone Giana Isbell MD Primary Care Provider [phone] Reason for Referral * Imaging (Urgent) - Closed Specialty Diagnoses / Procedures Referred By Ervin chávez Referred To Contact Radiology Diagnoses Elevated alkaline phosphatase level Procedures US Abdomen Complete Giana Isbell MD 505 [place] [address] Phone: tel: fax: [address] Phone: tel: fax: Referral ID Status Reason Start Date Expiration Date Visits Re quested Visits Authorized [id number] Closed 02/17/2023 02/17/2024 1 1 Encounter Details Date Type Department Care Team (Late st Contact Info) Description 02/17/2023 Orders Only [facility] CHC MED & PEDS [address] [place], [place] [phone] iGana Isbell MD [address] [place], [place] [phone] Elevated alkaline phosphatase level (Primary Dx); Left [...] Office Visit [facility] OPTOMETRY [address] [place] [address] Morteza, Dawna, OD [address] [place] [address] 06/26/2024 1:30 PM EDT Office Visit [facility] CHC MED & PEDS [address] [place], [place] [phone] Giana Isbell MD [address] [place], [place] [phone] documented as of this encounter Procedures Procedure Name Priority Date/Time Associated Diagnosis Comments US ABDOMEN COMPLETE Urgent 03/21/2023 9 :29 AM EST Elevated alkaline phosphatase level documented in this encounter Results * US Abdomen Complete (03/21/2023 9:29 AM EST) Anatomical Region Laterality Modality Abdomen Ultrasound 03/21/2023 9:29 AM EST Narrative 03/22/2023 9:16 AM EST ? [facility] ?[address] ?[place] [address] ? Ultrasound Report ? Signed ? Patient: Tory Bush ?MR#: [id number] ?? [id number] ? : 1965 ?Acct:[id number] ? Age/Sex: 57 / F ?ADM Date: 03/21/23 ? Loc: HO.US ? Attending Dr: Giana Isbell MD ? Ordering Physician: Giana Isbell MD ?? Date of Service: 03/21/23 ?? Procedure(s): US abdomen complete ?? Accession Number(s): [id number] ? cc: Giana Isbell MD ? EXAMINATION: [...] 03/22/23911 ? DD/ 0929 ? TD/TT: ? Field Sales Trainer: ? Procedure Note Trish, Image - 03/22/2023 [place] [address] Ultrasound Report Signed Patient: Pat Bush#: [id number] : 1965Acct:[id number] Age/Sex: 57 / FADM Date: 03/21/23 Loc: HO.US Attending Dr: Giana Isbell MD Ordering Physician: Giana Isbell MD Date of Service: 03/21/23 Procedure(s): US abdomen complete Accession Number(s): [id number] cc: Giana Isbell MD EXAMINATION: US ABDOMEN [...] MD in OV> 03/22/23911 DD/ 8 TD/TT: Field Sales Trainer: us Giana Isbell MD IMG US PROCEDURES Final Res ult documented in this encounter Visit Diagnoses Diagnosis Elevated alkaline phosphatase level- Primary Left upper quadrant abdominal pain documented in this encounter Additional Health Concerns Assessment Noted Time PHQ-9 Depression Total Score: 7 07/30/19 23 10:13 AM EDT documented as of this encounter Care Teams Union Organizer Relationship Specialty Start Date End Date Giana Isbell MD [address] [place] [address] PCP - General Internal Medicine 09/07/18 documented as of this encounter
--- OUTSIDE RECORDS SUMMARY | 2024-04-09 15:04 | XMS_ITS | Encounter Summary ---
Author Organization [employer] Address 75 [facility] 7t [place] [address] Care Team Providers Care Stage Technician Name Role Phone Giana Isbell MD Primary Care Provider [phone] Reason for Visit * Reason Comments Med Refill Encounter Details Date Type Department Care Team ([facility] Contact Info) Description 03/31/2022 Refill [facility] CHC MED & PEDS [address] [place], [place] [phone] Giana Isbell MD [address] [place] [address] Acquired hypothyroidism (Primary Dx); Other constipation; Depressive [...] Upcoming Encounters Date Type Department Care Team ([facility] Contact Info) Description 06/11/2024 9:00 AM EDT Office Visit [facility] OPTOMETRY [address] [place], [place] [phone] Morteza, Dawna, OD [address] [place] [address] 06/26/2024 1:30 PM EDT Office Visit [facility] CHC MED & PEDS [address] [place] [address] Giana Isbell MD [address] [place] [address] documented as of this encounter Visit Diagnoses Diagnosis Acquired hypothyroidism- Primary Unspecified hypothyroidism Other constipation Depressive disorder Depressive disorder, not elsewhere classified Seasonal allergies Allergic rhinitis, cause unspecified Migraine without aura and without status migrainosus, not intractable documented in this encounter Care Teams Stage Technician Relationship Specialty Start Date End Date Giana Isbell MD [address] [place] [address] PCP - General Internal Medicine 09/07/18 documented as of this encounter
--- OUTSIDE RECORDS SUMMARY | 2024-04-09 15:04 | XMS_ITS | Encounter Summary ---
Author Organization [employer] Address 75 [facility] 7t [place] [address] Care Team Providers Care Supervisor Pigment Making Name Role Phone Giana Isbell MD Primary Care Provider [phone] Encounter Details Date Type Department Care Team (Latest Contact Info) Description 02/15/2018 Abstract [facility] CONVERSIONS Dental, Provider, DDS Social [...] 9:00 AM EDT Office Visit [facility] OPTOMETRY [address] [place] [address] Dawna Pro, OD [address] [place] [address] 06/26/2024 1:30 PM EDT Office Visit [facility] CHC MED & PEDS [address] [place] [address] Giana Isbell MD 505 [place] [address] documented as of this encounter Visit Diagnoses Not on filedocumented in this encounter Care Teams Supervisor Pigment Making Relationship Specialty Start Date End Date Giana Isbell MD [address] [place] [address] PCP - General Internal Medicine 09/07/18 documented as of this encounter
--- OUTSIDE RECORDS SUMMARY | 2024-04-09 15:04 | XMS_ITS | Encounter Summary ---
Author Organization [employer] Address [address] 7[address] [place] [address] Care Team Providers Care Business English Instructor Name Role Phone Giana Isbell MD Primary Care Provider [phone] Encounter Details Date Type Department Care Team [...] Description 06/11/2024 9:00 AM EDT Office Visit [facility] OPTOMETRY [address] [place] [address] Morteza, Dawna, OD [address] [place] [address] 06/26/2024 1:30 PM EDT Office Visit [facility] CHC MED & PEDS [address] [place] [address] Giana Isbell MD [address] [place] [address] documented as of this encounter Visit Diagnoses Not on filedocumented in this encounter Additional Health Concerns Assessment Noted Time PHQ-9 Depression Total Score: 24 03/28/ 025 9:26 AM EST documented as of this encounter Care Teams Business English Instructor Relationship Specialty Start Date End Date Giana Isbell MD [address] [place] [address] PCP - General Internal Medicine 09/07/18 documented as of this encounter
--- OUTSIDE RECORDS SUMMARY | 2024-04-09 15:04 | XMS_ITS | Encounter Summary ---
Author Organization [employer] Address [address] [facility] [facility] [address] 7[address] [place] [address] Care Team Providers Care Drafter Structural Name Role Phone Giana Isbell MD Primary Care Provider [phone] Encounter Details Date Type Department Care Team ([facility] st Contact Info) Description 04/05/[address] [facility] MEDICINE [address] [place] [address] Giana Isbell MD [address] [place] [address] Social History Tobacco Use Types Packs/Day Years [...] AM EDT Office Visit [facility] OPTOMETRY [address] [place] [address] Morteza, Dawna, OD [address] [place] [address] 06/26/2024 1:30 PM EDT Office Visit [facility] CHC MED & PEDS [address] [place] [address] Giana Isbell MD [address] [place] [address] documented as of this encounter Visit Diagnoses Not on filedocumented in this encounter Additional Health Concerns Assessment Noted Time PHQ-9 Depression Total Score: 7 07/30/19 23 10:13 AM EDT documented as of this encounter Care Teams Drafter Structural Relationship Specialty Start Date End Date Giana Isbell MD [address] [place] [address] PCP - General Internal Medicine 09/07/18 documented as of this encounter
--- OUTSIDE RECORDS SUMMARY | 2024-04-09 15:04 | XMS_ITS | Encounter Summary ---
Author Organization [employer] Address [address] [facility] 7t [place] [address] Care Team Providers Care Overage Shortage And Damage Clerk Name Role Phone Giana Isbell MD Primary Care Provider [phone] Encounter Details Date Type Department Care Team (Latest Contact Info) Description 11/13/2020 Abstract [facility] CONVERSIONS Dental, Provider, DDS Social History Tobacco [...] 06/11/2024 9:00 AM EDT Office Visit [facility] OPTOMETRY [address] [place] [address] Dawna Pro, OD [address] [place] [address] 06/26/2024 1:30 PM EDT Office Visit [facility] CHC MED & PEDS [address] [place] [address] Giana Isbell MD 505 [place] [address] documented as of this encounter Visit Diagnoses Not on filedocumented in this encounter Care Teams Overage Shortage And Damage Clerk Relationship Specialty Start Date End Date Giana Isbell MD [address] [place] [address] PCP - General Internal Medicine 09/07/18 documented as of this encounter
--- OUTSIDE RECORDS SUMMARY | 2024-04-09 15:04 | XMS_ITS | Encounter Summary ---
Author Organization [employer] Address [address] [facility] [address] [facility] [address] [place] [address] Care Team Providers Care Core Maker Name Role Phone Giana Isbell MD Primary Care Provider [phone] Encounter Details Date Type Department Care Team ([facility] st Contact Info) Description 02/06/2024 Orders Only [facility] CHC MED & PEDS [address] [place] [address] Giana Isbell MD 505 [place] [address] Acquired hypothyroidism (Primary Dx) Social History Tobacco [...] Description 06/11/2024 9:00 AM EDT Office Visit [facility] OPTOMETRY [address] [place] [address] Morteza, Megan, OD [address] [place] [address] 06/26/2024 1:30 PM EDT Office Visit [facility] CHC MED & PEDS [address] [place], [place] [phone] Giana Isbell MD 505 [place], [place] [phone] Scheduled Orders Name Type Priority Associated Diagnoses [...] EST Narrative 02/10/2024 3:39 PM EST ? [facility] ?[address] ?[place] [address] ? Magnetic Resonance Report ? Signed with Addenda ? Patient: Tamia Sánchez,Tory ?MR#: [id number] ?? [id number] ? : 1965 ?Acct:[id number] ? Age/Sex: 58 / F ?ADM Date: 12/30/24 ? Loc: HO.MRI ? Attending Dr: Pardeep Marcos MD ? Ordering Physician: Pardeep Marcos MD ?? Date of Service: 02/06/24 ?? Procedure(s): MR breast BI wo/w con ?? Accession Number(s): [id number] ? cc: Giana Isbell MD; Pardeep Marcos [...] DD/ 0933 ? TD/TT: 02/06/24 1016 ? Hot Top Liner Helper: ? Procedure Note Donhernanter, Image - 02/13/2024 [place] [address] Magnetic Resonance Report Signed with Addenda Patient: Pat Bush#: [id number] : 1965Acct:[id number] Age/Sex: 58 / FADM Date: 02/06/24 Loc: HO.MRI Attending Dr: Pardeep Marcos MD Ordering Physician: Pardeep Marcos MD Date of Service: 02/06/24 Procedure(s): MR breast BI wo/w con Accession Number(s): [id number] cc: Giana Isbell MD; Pardeep Marcos MD [...] by: Carissa Raza DO 02/10/2024 03:36 PM [facility] Dictated By: Carissa Raza DO Signed By: <Electronically signed by Carissa Raza DO in OV> 02/10/24 1536 DD/ 0933 TD/TT: 02/06/24 1016 Hot Top Liner Helper: [facility] External Provider IMG MRI PROCEDURES Edited Result - Final documented in this encounter Visit Diagnoses Diagnosis Acquired hypothyroidism- Primary Unspecified hypothyroidism documented in this encounter Additional Health Concerns Assessment Noted Time PHQ-9 Depression Total Score: 7 07/30/19 23 10:13 AM EDT documented as of this encounter Care Teams Core Maker Relationship Specialty Start Date End Date Giana Isbell MD [address] [place] [address] PCP - General Internal Medicine 09/07/18 documented as of this encounter
--- OUTSIDE RECORDS SUMMARY | 2024-04-09 15:04 | XMS_ITS | Encounter Summary ---
Author Organization [employer] Address [address] [facility] 7t [place] [address] Care Team Providers Care Business And Financial Counsel Name Role Phone Giana Isbell MD Primary Care Provider [phone] Reason for Visit * Reason Onset Date Comments Nurse Triage 03/01/2023 Encounter Details Date Type Department Care Team ([facility] Contact Info) Description 03/01/2023 Telephone [facility] MEDICINE [address] [place] [address] Giana Isbell MD 505 [place] [address] Nurse Triage Social History Tobacco Use Types [...] 03/01/2023 12:46 PM EST Triage call with [employer] [place] Consultant [place] [id number] Pt reports having surgery and not having any pain medication. Pt had a partial left thyroide[place] 02/28/23 @ [facility] and oxycodone 5mg po was ordered . Prescription was sent to [facility] pharmacy. Pt was not aware of [...] EDT Office Visit [facility] OPTOMETRY [address] [place] [address] Dawna Pro, OD [address] [place] [address] 06/26/2024 1:30 PM EDT Office Visit [facility] CHC MED & PEDS [address] [place] [address] Giana Isbell MD 505 [place] [address] documented as of this encounter Visit Diagnoses Not on filedocumented in this encounter Additional Health Concerns Assessment Noted Time PHQ-9 Depression Total Score: 7 07/30/19 23 10:13 AM EDT documented as of this encounter Care Teams Business And Financial Counsel Relationship Specialty Start Date End Date Giana Isbell MD 505 [place] [address] PCP - General Internal Medicine 09/07/18 documented as of this encounter
--- OUTSIDE RECORDS SUMMARY | 2024-04-09 15:04 | XMS_ITS | Encounter Summary ---
Author Organization [employer] Address [address] [facility] 7t [place] [address] Care Team Providers Care Broom Worker Name Role Phone Giana Isbell MD Primary Care Provider [phone] Encounter Details Date Type Department Care Team (Latest Contact Info) Description 02/16/2019 Abstract [facility] CONVERSIONS Dental, Provider, DDS Social History [...] 06/11/2024 9:00 AM EDT Office Visit [facility] OPTOMETRY [address] [place] [address] Dawna Pro, OD [address] [place] [address] 06/26/2024 1:30 PM EDT Office Visit [facility] CHC MED & PEDS [address] [place] [address] Giana Ibsell MD 505 [place] [address] documented as of this encounter Visit Diagnoses Not on filedocumented in this encounter Care Teams Broom Worker Relationship Specialty Start Date End Date Giana Isbell MD [address] [place] [address] PCP - General Internal Medicine 09/07/18 documented as of this encounter
--- OUTSIDE RECORDS SUMMARY | 2024-04-09 15:04 | XMS_ITS | Encounter Summary ---
Author Organization [employer] Address [address] [facility] 7t [place] [address] Care Team Providers Care Fiber Optics Technician Name Role Phone Giana Isbell MD Primary Care Provider [phone] Reason for Visit * Reason Comments Transition Of Care (Tcm) HDF unscheduled LVM Encounter Details Date Type Department Care Team ([facility] st Contact Info) Description 03/19/2024 Patient Outreach [facility] MEDICINE [address] [place] [address] Giana Isbell MD [address] [place] [address] Transition Of Care (Tcm) (HDF unscheduled LVM [...] Admission/Visit 03/13/24 Date of Discharge 03/16/24 Facility [facility] Diagnosis pneumonia Disposition Discharged Home Follow-Up [...] and Wednesdays,and Walk-In Urgent Care Located in [facility]. Patient provided with after-hours line for [facility], , which offer night time triage service and option to transfer to regional sales associate provider if needed. CC scanned discharge summary into patient's chart. CC will place additional outreach call within2-5 business days. documented in this encounter Plan of Treatment Upcoming Encounters Date Type Department Care Team (Late st Contact Info) Description 06/11/2024 9:00 AM EDT Office Visit [facility] OPTOMETRY [address] [place], [place] [address] Dawna Pro, OD [address] [place] [address] 06/26/2024 1:30 PM EDT Office Visit [facility] CHC MED & PEDS [address] [place] [address] Giana Isbell MD [address] [place] [address] documented as of this encounter Visit Diagnoses Not on filedocumented in this encounter Additional Health Concerns Assessment Noted Time PHQ-9 Depression Total Score: 7 07/30/19 23 10:13 AM EDT documented as of this encounter Care Teams Fiber Optics Technician Relationship Specialty Start Date End Date Giana Isbell MD [address] [place] [address] PCP - General Internal Medicine 09/07/18 documented as of this encounter
--- OUTSIDE RECORDS SUMMARY | 2024-04-09 15:04 | XMS_ITS | Encounter Summary ---
Author Organization [employer] Address [address] [facility] 7t [place] [address] Care Team Providers Care Manager Call Center Name Role Phone Giana Isbell MD Primary Care Provider [phone] Reason for Visit * Reason Onset Date Comments Hospital Follow-up 07/20/2022 Encounter Details Date Type Department Care Team ([facility] Contact Info) Description 07/20/2022 Telephone [facility] CHC MED & PEDS [address] [place] [address] Giana Isbell MD [address] [place] [address] Hospital Follow-up Social History Tobacco Use Types [...] a HDF appt. Pt was admitted at [facility] on 07/17/22 and discharged on 07/20/22 due to abdominal pain. documented in this encounter Plan of Treatment Upcoming Encounters Date Type Department Care Team ([facility] Contact Info) Description 06/11/2024 9:00 AM EDT Office Visit [facility] OPTOMETRY [address] [place] [address] Dawna Pro, OD [address] [place] [address] 06/26/2024 1:30 PM EDT Office Visit [facility] CHC MED & PEDS [address] [place] [address] Giana Isbell MD [address] [place] [address] documented as of this encounter Visit Diagnoses Not on filedocumented in this encounter Care Teams Manager Call Center Relationship Specialty Start Date End Date Giana Isbell MD [address] [place] [address] PCP - General Internal Medicine 09/07/18 documented as of this encounter
--- OUTSIDE RECORDS SUMMARY | 2024-04-09 15:04 | XMS_ITS | Encounter Summary ---
Author Organization [employer] Address [address] [facility] 7t [place] [address] Care Team Providers Care Barrow Worker Name Role Phone Giana Isbell MD Primary Care Provider [phone] Encounter Details Date Type Department Care Team (Latest Contact Info) Description 12/04/2021 Abstract [facility] CONVERSIONS Dental, Provider, DDS Social History [...] Description 06/11/2024 9:00 AM EDT Office Visit [facility] OPTOMETRY [address] [place] [address] Dawna Pro, OD [address] [place] [address] 06/26/2024 1:30 PM EDT Office Visit [facility] CHC MED & PEDS [address] [place] [address] Giana Isbell MD 505 [place] [address] documented as of this encounter Visit Diagnoses Not on filedocumented in this encounter Care Teams Barrow Worker Relationship Specialty Start Date End Date Giana Isbell MD [address] [place] [address] PCP - General Internal Medicine 09/07/18 documented as of this encounter
--- OUTSIDE RECORDS SUMMARY | 2024-04-09 15:04 | XMS_ITS | Encounter Summary ---
Author Organization [employer] Address [address] [facility] [address]t [place] [address] Care Team Providers Care Archeologist Classical Name Role Phone Giana Isbell MD Primary Care Provider [phone] Reason for Visit * Reason Onset Date Comments Hospital Follow-up 03/19/2024 Encounter Details Date Type Department Care Team ([facility] Contact Info) Description 03/19/2024 Telephone [facility] MEDICINE [address] [place] [address] Giana Isbell MD [address] [place] [address] Hospital Follow-up Social History Tobacco Use Types [...] from pt requesting a HDF appt. [place] [facility] Date of admission: 03/13/24 Discharge date: 03/16/24 Diagnosed: Pneumonia *Send message to [place] Clinical Care Coordinators Contact Pt CONTROLS OPERATOR MOLDED GOODS at [phone] documented in this encounter Plan of Treatment Upcoming Encounters Date Type Department Care Team (Late st Contact Info) Description 06/11/2024 9:00 AM EDT Office Visit [facility] OPTOMETRY [address] [place] [address] Morteza, Dawna, OD [address] [place] [address] 06/26/2024 1:30 PM EDT Office Visit [facility] CHC MED & PEDS [address] [place] [address] Giana Isbell MD [address] [place] [address] documented as of this encounter Visit Diagnoses Not on filedocumented in this encounter Additional Health Concerns Assessment Noted Time PHQ-9 Depression Total Score: 7 07/30/19 23 10:13 AM EDT documented as of this encounter Care Teams Archeologist Classical Relationship Specialty Start Date End Date Giana Isbell MD [address] [place] [address] PCP - General Internal Medicine 09/07/18 documented as of this encounter
--- OUTSIDE RECORDS SUMMARY | 2024-04-09 15:05 | XMS_ITS | Encounter Summary ---
Author Organization [employer] Address [address] [facility] 7t [place] [address] Care Team Providers Care Spotlight Operator Name Role Phone Giana Isbell MD Primary Care Provider [phone] Reason for Visit * Reason Onset Date Comments Nurse Triage 08/02/2023 Encounter Details Date Type Department Care Team ([facility] Contact Info) Description 08/02/2023 Telephone [facility] CHC MED & PEDS [address] [place] [address] Giana Isbell MD [address] [place] [address] Nurse Triage Social History Tobacco Use Types [...] 08/02/2023 10:38 AM EDT Triage call with [employer] Super[employer] [place] [id number] Pt reports a small lump in the corner of lower left eye lid. Pt reports it is red, itchy, painful. This doesn't effect vision and Pt has never had this before. Pt has had this for more than a week and it is increasing in size. No available apts ion [facility] . Pt is advised to come to [facility] to be seen by provider and [...] Visit [facility] OPTOMETRY [address] [place] [address] Dawna Pro, OD [address] [place] [address] 06/26/2024 1:30 PM EDT Office Visit [facility] CHC MED & PEDS [address] [place] [address] Giana Isbell MD [address] [place] [address] documented as of this encounter Visit Diagnoses Not on filedocumented in this encounter Additional Health Concerns Assessment Noted Time PHQ-9 Depression Total Score: 7 07/30/19 23 10:13 AM EDT documented as of this encounter Care Teams Spotlight Operator Relationship Specialty Start Date End Date Giana Isbell MD [address] [place] [address] PCP - General Internal Medicine 09/07/18 documented as of this encounter
--- OUTSIDE RECORDS SUMMARY | 2024-04-09 15:05 | XMS_ITS | Encounter Summary ---
Author Organization [employer] Address [address] [facility] 7[address] [place] [address] Care Team Providers Care Hard Candy Batch Mixer Name Role Phone Giana Isbell MD Primary Care Provider [phone] Encounter Details Date Type Department Care Team ([facility] Contact Info) Description 03/13/2024 Orders Only GENERIC [...] 06/11/2024 9:00 AM EDT Office Visit [facility] [address] [place] [address] MortezaDawna priest, OD [address] [place] [address] 06/26/2024 1:30 PM EDT Office Visit [facility] [address] [place], [place] [phone] Giana Isbell MD [address] [place], [place] [phone] documented as of this encounter Procedures Procedure [...] EST Narrative 04/09/2024 1:08 PM EST ? [facility] [place] ? [address] ?[place] [address] ? Ultrasound Report ? Signed ? Patient: Tory Bsuh ?MR#: [id number] ?? [id number] ? : 1965 ?Acct:[id number] ? Age/Sex: 58 / F ?ADM Date: 04/09/24 ? Loc: HO.MAMMO ? Attending Dr: Rhona Badillo MD ? Ordering Physician: Rhona Badillo MD ?? Date of Service: 04/09/24 ?? Procedure(s): US breast RT limited mamm only ?? Accession Number(s): [id number] ? cc: Giana Isbell MD; Rhona Badillo [...] DD/ 1230 ? TD/TT: 04/09/24 1241 ? Production Control Expediter: ? Procedure Note Trish, Eliud - 04/09/2024 [place] [facility] [address] [place] [address] Ultrasound Report Signed Patient: Pat Bush#: [id number] : 1965Acct:[id number] Age/Sex: 58 / FADM Date: 04/09/24 Loc: HO.MAMMO Attending Dr: Rhona Badillo MD Ordering Physician: Rhona Badillo MD Date of Service: 04/09/24 Procedure(s): US breast RT limited mamm only Accession Number(s): [id number] cc: Giana Isbell MD; Rhona Badillo MD [...] 04/09/24 1305 DD/ 1230 TD/TT: 04/09/24 1241 Production Control Expediter: us [facility] External Provider IMG US PROCEDURES Final Result * Lactic Acid (03/13/2024 6:39 PM EST) Lactic Acid 1.0 0.5 - 2.0 mmol/L [facility] 03/13/2024 6:39 PM EST 03/13/2024 6:41 PM EST us Generic External Data Provider LAB BLOOD ORDERAB LES Final Result [facility] [address] [place] [address] [phone] * CTA Chest PE Protocal (03/13/2024 4:24 PM EST) Anatomical Region Laterality Modality Body, Chest Computed Tomogra phy 03/13/2024 4:24 PM EST Narrative 03/13/2024 5:03 PM EST ? [facility] ?[address] ?[place] [address] ? [place] Scan Report ? Signed ? Patient: Tamia SánchezTory ?MR#: [id number] ?? [id number] ? : 1965 ?Acct:[id number] ? Age/Sex: 58 / F ?ADM Date: 03/13/24 ? Loc: HO.ED ? Attending Dr: ? Ordering Physician: Kristi Bazan ?? Date of Service: 03/13/24 ?? Procedure(s): CT angio chest PE protocol ?? Accession Number(s): [id number] ? cc: Giana Isbell MD; Kristi Bazan ? Report Number: ?? [id number]: Total DLP = ??202.00 mGy-cm ?? EXAMINATION: [...] ? DD/ ? TD/TT: 03/13/24 1642 ? Production Control Expediter: ? Procedure Note Eliud Chambers - 03/13/[address] [place] [address] CT Scan Report Signed Patient: Pat Bush#: [id number] : 1965Acct:[id number] Age/Sex: 58 / FADM Date: 03/13/24 Loc: HO.ED Attending Dr: Ordering Physician: Kristi Bazan Date of Service: 03/13/24 Procedure(s): CT angio chest PE protocol Accession Number(s): [id number] cc: Giana Isbell MD; Kristi Bazan Report Number: [id number]: Total DLP = 202.00 mGy-cm EXAMINATION: CT [...] 03/13/24 1700 DD/ 1624 TD/TT: 03/13/24 1642 Production Control Expediter: [facility] External Provider IMG CT PROCEDURES Final Result * High Sensitivity Troponin I (03/13/2024 4:05 PM EST) [facility] TROPONIN I HIGH SENSITIVITY 5.8 <3.5 - 17.0 ng/L [facility] Comment:The Dinh high sens itivity Troponin-I results should beused in conjunction with other diagnostic information suchas ECG, clinical observations and information, and patientsymptoms to aid in the diagnosis of NV. 03/13/2024 4:05 PM EST 03/13/2024 4:09 PM EST Generic External Data Provider LAB BLOOD ORDERAB LES Final Result [facility] [address] [place] [address] [phone] * Magnesium (03/13/2024 2:52 PM EST) [facility] Magnesium 1.9 1.6 - 2.6 mg/dL [facility] 03/13/2024 2:52 PM EST 03/13/2024 3:00 PM EST us Generic External Data Provider LAB BLOOD ORDERAB LES Final Result Performing Organization Address City/[facility]/ZIP Co de Phone Number [facility] [address] [place] [phone] * (ABNORMAL) Basic Metabolic Panel (03/13/2024 2:52 PM EST) Sodium 140 135 - 145 mmol/L [facility] Potassium 4.0 3.3 - 5.1 mmol/L [facility] Comment:Slight Hemolysis.Int erpret result with caution. Chloride 109(H) 96 - 108 mmol/L [facility] Carbon Dioxide 22 22 - 29 mmol/L [facility] Anion Gap 13 12 - 20 [facility] Urea Nitrogen (BUN) 20(H) 9 - 16 mg/dL [facility] Creatinine, Serum 0.93 0.5 - 1.4 mg/dL [facility] Creatinine Clr Calc Pharmacy 54.5 [facility] Comment:Provided height and weight: 160.02 cm,58.967 kg.eGFR (calculated from the MDRD study equation) and eCrCl(calculated from the Cockcroft-Gault equation) are based ondifferent parameters and may not yield comparable results.If eCrCl result is absurd, please check patient'sheight/weight. Estimated Glomerular Filt Rate >60 [facility] Comment:Chronic Kidney Disea se: Estimated GFR < 60 mL/min/1.69f0Tggeoo Kidney Disease: Estimated GFR < 15 mL/min/1.73m2 Glucose 123(H) 60 - 115 mg/dL [facility] Calcium 9.0 8.4 - 10.2 mg/dL [facility] 03/13/2024 2:52 PM EST 03/13/2024 3:00 PM EST us Generic External Data Provider LAB BLOOD ORDERAB LES Final Result Performing Organization Address City/State/[facility] de Phone Number [facility] [address] [place] [phone] * (ABNORMAL) Hepatic Function Panel (03/13/2024 2:52 PM EST) Bilirubin, Total 0.5 0.0 - 1.0 mg/dL [facility] Bilirubin, Direct 0.1 0.0 - 0.5 mg/dL [facility] Aspartate Amino Transferase 33(H) 5 - 31 U/L [facility] Comment:Slight Hemolysis.Int erpret result with caution. Alanine Aminotransferase 38(H) 0 - 31 U/L [facility] Total Protein 6.7 6.5 - 8.0 g/dL [facility] Albumin Level 3.7 3.5 - 5.0 g/dL [facility] Alkaline Phosphatase 161(H) 39 - 117 U/L [facility] 03/13/2024 2:52 PM EST 03/13/2024 3:00 PM EST Generic External Data Provider LAB BLOOD ORDERAB LES Final Result Performing Organization Address [facility] de Phone Number [facility] [address] [place] [phone] * SARS-CoV-2 RNA, Influenza A/B, and RSV RNA, Ql NAAT (03/13/2024 2:52 PM EST) Pathologist [facility] Influenza A PCR NEGATIVE Negative [facility] Influenza B PCR NEGATIVE Negative [facility] Resp Syncy Virus RNA Qual PCR NEGATIVE Negative [facility] SARS COV2 PCR NEGATIVE Negative [facility] Comment:All test results mus t [...] use by authorized laboratories.Testing performed on the [employer] GeneXpert utilizingreal-time RT-PCR.All SARS CoV2 and positive influenza A/B results arereported to [facility]. 03/13/2024 2:52 PM EST 03/13/2024 3:00 PM EST [facility] External Data Provider LAB MICROBIOLOGY - GENERAL ORDERABLES Final Result Performing Organization Address [facility] de Phone Number [facility] [address] [place] [phone] * High Sensitivity Troponin I (03/13/2024 2:52 PM EST) [facility] TROPONIN I HIGH SENSITIVITY 6.2 <3.5 - 17.0 ng/L [facility] Comment:The Dinh high sens itivity Troponin-I results should beused in conjunction with other diagnostic information suchas ECG, clinical observations and information, and patientsymptoms to aid in the diagnosis of NV. 03/13/2024 2:52 PM EST 03/13/2024 3:00 PM EST [facility] External Data Provider LAB BLOOD ORDERAB LES Final Result Performing Organization Address [facility] Phone Number [facility] [address] [place] [phone] * B Type Natriuretic Peptide (BNP) (03/13/2024 2:52 PM EST) Pathologist [facility] B Type Natriuretic Peptide <10 <100 pg/mL [facility] Comment:For those patients w ho are being treated with Natrecor(nesiritide, recombinant BNP), BNP testing should beperformed at least two hours post treatment in order toensure that only endogenous levels of BNP are detected. 03/13/2024 2:52 PM EST 03/13/2024 3:00 PM EST [facility] External Data Provider LAB BLOOD ORDERAB LES Final Result Performing Organization Address [facility] de Phone Number [facility] [address] [place] [phone] * D Dimer High Sensitivity (03/13/2024 2:52 PM EST) [facility] D Dimer High Sensitivity 349 NG/ML [facility] Comment:D-DIMER HS REFERENCE RANGENote: Our assay reports D-Dimer Units (D- DU).The cut-off value for venous thromboembolic (VTE) disease is230 ng/mL. This value has a very high negative predictivevalue when the patient has a low to moderate clinicalprobability of VTE.The upper limit of normal is 243 ng/mL. 03/13/2024 2:52 PM EST 03/13/2024 3:00 PM EST [employer] External Data Provider LAB BLOOD ORDERAB LES Final Result Performing Organization Address [facility] Phone Number [facility] [address] [place] [address] [phone] * Prothrombin Time-INR (03/13/2024 2:52 PM EST) [facility] Prothrombin Time 11.1 10.9 - 12.4 SEC [facility] INTERNATIONAL NORM RATIO 1.0 0.9 - 1.1 [facility] Comment:INTERNATIONAL NORMAL IZED RATIO (INR) [...] ORDERAB LES Final Result Performing Organization Address [facility] de Phone Number [facility] [address] [place] [phone] * (ABNORMAL) Complete Blood Count Manual Diff (03/13/2024 2:52 PM EST) White Blood Count 7.5 4.8 - 10.8 X10*3/uL [facility] Red Blood Count 4.75 4.20 - 5.50 X10*6/uL [facility] Hemoglobin 14.2 12.0 - 16.0 g/dl [facility] Hematocrit 41.9 37.0 - 47.0 % [facility] Mean Corpuscular Volume 88.2 80.0 - 98.0 fL [facility] Mean Corpuscular Hemoglobin 29.9 27.0 - 33.0 pg [facility] Mean Corpuscular HGB Conc 33.9 31.0 - 35.0 g/dl [facility] Red Cell Distribution Width 14.5 11.0 - 16.0 % [facility] Platelet Count 148(L) 160 - 400 X10*3/uL [facility] Mean Platelet Volume 9.7 9.4 - 12.3 fL [facility] NRBC Pct Auto 0.0 0.0 - 0.2 /100WBC [facility] NRBC Abs Auto 0.000 0.0 - 0.012 X10*3/uL [facility] Neutrophils % Manual 70 45 - 73 % [facility] Band Neutrophils Percent 2(L) 3 - 5 % [facility] Lymphocytes Percent Manual 26 20 - 40 % [facility] Monocytes Percent Manual 1(L) 2 - 11 % [facility] EOSINOPHILS % MANUAL 1 0 - 4 % [facility] NEUTROPHILS ABSOLUTE MANUAL 5.4 2.0 - 8.3 X10*3/uL [facility] LYMPHOCYTES ABSOLUTE MANUAL 2.0 1.2 - 4.9 X10*3/uL [facility] MONOCYTES ABSOLUTE MANUAL 0.1 0.1 - 1.2 X10*3/uL [facility] EOSINOPHILS ABSOLUTE MANUAL 0.1 0.0 - 0.4 X10*3/uL [facility] Platelet Estimate NORMAL NORMAL [facility] Platelet Morphology Comment NORMAL [facility] RBC Morphology NORMAL [facility] Toxic Granulation PRESENT [facility] Toxic Vacuolation [facility] Dohle Bodies PRESENT [facility] 03/13/2024 2:52 PM EST 03/13/2024 3:00 PM EST us Generic External Data Provider LAB BLOOD ORDERAB LES Final Result [facility] [address] [place], [place] [phone] * (ABNORMAL) CBC auto differential (03/13/2024 2:52 PM EST) White Blood Count 7.5 4.8 - 10.8 X10*3/uL [facility] Red Blood Count 4.75 4.20 - 5.50 X10*6/uL [facility] Hemoglobin 14.2 12.0 - 16.0 g/dl [facility] Hematocrit 41.9 37.0 - 47.0 % [facility] Mean Corpuscular Volume 88.2 80.0 - 98.0 fL [facility] Mean Corpuscular Hemoglobin 29.9 27.0 - 33.0 pg [facility] Mean Corpuscular HGB Conc 33.9 31.0 - 35.0 g/dl [facility] Red Cell Distribution Width 14.5 11.0 - 16.0 % [facility] Platelet Count 148(L) 160 - 400 X10*3/uL [facility] Mean Platelet Volume 9.7 9.4 - 12.3 fL [facility] Neutrophils Percent Auto 76.3(H) 45 - 73 % [facility] Imm Gran Pct Auto 0.3 0.0 - 0.4 % [facility] Lymphocytes Percent Auto 17.8(L) 20 - 40 % [facility] Monocytes Percent Auto 3.3 2 - 11 % [facility] Eosinophils Percent Auto 1.9 0 - 4 % [facility] Basophils Percent Auto 0.4 0 - 2 % [facility] NRBC Pct Auto 0.0 0.0 - 0.2 /100WBC [facility] Neutrophils Absolute Auto 5.8 2.0 - 8.3 x10*3/uL [facility] Imm Gran Abs Auto 0.02 0.00 - 0.03 X10*3/uL [facility] Lymphocytes Absolute Auto 1.3 1.2 - 4.9 X10*3/uL [facility] Monocytes Absolute Auto 0.3 0.1 - 1.2 X10*3/uL [facility] Eosinophils Absolute Auto 0.1 0.0 - 0.4 X10*3/uL [facility] Basophils Absolute Auto 0.0 0.0 - 0.2 X10*3/uL [facility] NRBC Abs Auto 0.000 0.0 - 0.012 X10*3/uL [facility] 03/13/2024 2:52 PM EST 03/13/2024 3:00 PM EST us Generic External Data Provider LAB BLOOD ORDERAB LES Edited Result - Final Performing Organization Address City/State/[facility] Co de Phone Number [facility] [address] [place] [phone] * XR Chest 1 View (03/13/2024 2:39 PM EST) Anatomical Region Laterality Modality Chest Radiographic Laura ging 03/13/2024 2:39 PM EST Narrative 03/13/2024 3:51 PM EST ? [facility] ?[address] ?[place] [address] ?XRay Report ? Signed ? Patient: Tamia Sánchez,Tory ?MR#: [id number] ?? [id number] ? : 1965 ?Acct:[id number] ? Age/Sex: 58 / F ?ADM Date: 02/04/25 ? Loc: HO.ED ? Attending Dr: ? Ordering Physician: Kristi Bazan ?? Date of Service: 03/13/24 ?? Procedure(s): XR chest 1V ?? Accession Number(s): [id number] ? cc: Giana Isbell MD; Kristi Bazan [...] DD/ 1439 ? TD/TT: 03/13/24 1525 ? Production Control Expediter: ? Procedure Note Trish, Image - 03/13/2024 [place] [address] XRay Report Signed Patient: Pat Bush#: [id number] : 1965Acct:[id number] Age/Sex: 58 / FADM Date: 03/13/24 Loc: HO.ED Attending Dr: Ordering Physician: Kristi Bazan Date of Service: 03/13/24 Procedure(s): XR chest 1V Accession Number(s): [id number] cc: Giana Isbell MD; Kristi Bazan EXAMINATION: [...] 03/13/24 1549 DD/ 1439 TD/TT: 03/13/24 1525 Production Control Expediter: [facility] External Provider IMG XR PROCEDURES Final Result documented in this encounter Visit Diagnoses Not on filedocumented in this encounter Additional Health Concerns Assessment Noted Time PHQ-9 Depression Total Score: 7 07/30/19 23 10:13 AM EDT documented as of this encounter Care Teams Hard Candy Batch Mixer Relationship Specialty Start Date End Date Giana Isbell MD [address] [place] [phone] PCP - General Internal Medicine 09/07/18 documented as of this encounter
--- OUTSIDE RECORDS SUMMARY | 2024-04-09 15:05 | XMS_ITS | Clinical Summary ---
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 12/06/2023 Transaminitis [...] Type Department Care Team Description 04/02/2024 Telephone [facility] [address] [place] [address] [phone] Giana Isbell MD Medication Question 03/28/2024 9:15 AM EST Office Visit [facility] [address], [place] [phone] Giana Isbell MD Acute cough (Primary Dx); Acquired hypothyroidism; SOB (shortness of breath); Bronchopneumonia 03/28/2024 Travel 03/20/2024 Patient Outreach [facility] [address] [place], [place] [phone] Giana Isbell MD Transition Of Care (Tcm) (HDF scheduled and SDOH screening negative and Tobacco screening negative) 03/19/2024 Patient Outreach [facility] [address] [place] [address] Giana Isbell MD Transition Of Care (Tcm) (HDF unscheduled LVM ) 03/19/2024 Telephone [facility] [address] [place] [address] Giana Isbell MD Hospital Follow-up 03/13/2024 Orders Only GENERIC EXTERNAL DATA DEPARTMENT Provider, Generic External Data 02/24/2024 Telephone [facility] [address] [place] [address] Lou Gonzalez MD 02/23/2024 Telephone [facility] [address] [place], [place] [phone] Giana Isbell MD 02/22/2024 3:30 PM EST Office Visit [facility] [address], [place] [phone] Giana Isbell MD Functional urinary incontinence (Primary Dx); Infiltrating ductal carcinoma of right breast (CMS/HCC) 02/22/2024 Orders Only [facility] External Provider, [facility] 02/22/2024 Travel 02/21/2024 Telephone [facility] [address], [place] [phone] Giana Isbell MD Chart Prep 02/17/2024 Orders Only [facility] Information [address] [phone] Kathi Rollins MD 02/16/2024 Telephone [facility] [address], [place] [phone] Giana Isbell MD Transition Of Care (Tcm) 02/16/2024 Orders Only GENERIC EXTERNAL DATA DEPARTMENT Provider, Generic External Data 02/15/2024 Orders Only GENERIC EXTERNAL DATA DEPARTMENT Provider, Generic External Data 02/10/2024 Orders Only [facility] External Provider, [facility] 02/10/2024 Telephone [facility] [address], [place] [phone] Nicole Paz, RN Results 02/06/2024 Orders Only [facility] [address] [place] [address] Giana Isbell MD Acquired hypothyroidism (Primary Dx) 02/06/2024 Orders Only GENERIC EXTERNAL DATA DEPARTMENT Provider, Generic External Data 02/02/2024 Refill [facility] [address] [place] [address] Giana Isbell MD 01/18/2024 Orders Only GENERIC [...] 9:00 AM EDT Office Visit [facility] [address] [place] [address] Morteza, Dawna, OD [address] [place] [address] 06/26/2024 1:30 PM EDT Office Visit [facility] [address] [place] [address] Giana Isbell MD [address] [place] [address] Health Maintenance Due Date Last Done Comments [...] AM EST IR CVC INSERT TUNNEL W PRT/MAITRE D Routine 02/16/2024 7:46 AM EST GLUCOSE, WHOLE [...] EST Narrative 04/09/2024 1:08 PM EST ? [facility] ? [address] ?[place] [address] ? Ultrasound Report ? Signed ? Patient: Tamia Sánchez,Tory ?MR#: [id number] ?? [id number] ? : 1965 ?Acct:[id number] ? Age/Sex: 58 / F ?ADM Date: 03/03/25 ? Loc: HO.MAMMO ? Attending Dr: Rhona Badillo MD ? Ordering Physician: Rhona Badillo MD ?? Date of Service: 04/09/24 ?? Procedure(s): US breast RT limited mamm only ?? Accession Number(s): [id number] ? cc: Giana Isbell MD; Rhona Badillo [...] DD/ 1230 ? TD/TT: 04/09/24 1241 ? [employer] Custodian: ? Procedure Note Trish, Image - 04/09/2024 Isa[facility] [address] [place] [address] Ultrasound Report Signed Patient: Pat Bush#: [id number] : 1965Acct:[id number] Age/Sex: 58 / FADM Date: 04/09/24 Loc: HO.MAMMO Attending Dr: Rhona Badillo MD Ordering Physician: Rhona Badillo MD Date of Service: 04/09/24 Procedure(s): US breast RT limited mamm only Accession Number(s): [id number] cc: Giana Isbell MD; Rhona Badillo MD [...] 04/09/24 1305 DD/ 1230 TD/TT: 04/09/24 1241 [employer] Custodian: us [facility] External Provider IMG US PROCEDURES Final Result * Lactic Acid (03/13/2024 6:39 PM EST) Lactic Acid 1.0 0.5 - 2.0 mmol/L [facility] 03/13/2024 6:39 PM EST 03/13/2024 6:41 PM EST us Generic External Data Provider LAB BLOOD ORDERAB LES Final Result [facility] [address] [place] [address] [phone] * CTA Chest PE Protocal (03/13/2024 4:24 PM EST) Anatomical Region Laterality Modality Body, Chest Computed Tomogra phy 03/13/2024 4:24 PM EST Narrative 03/13/2024 5:03 PM EST ? [facility] ?[address] ?[place] [address] ? CT Scan Report ? Signed ? Patient: Tory Bush ?MR#: [id number] ?? [id number] ? : 1965 ?Acct:[id number] ? Age/Sex: 58 / F ?ADM Date: 03/13/24 ? Loc: HO.ED ? Attending Dr: ? Ordering Physician: Kristi Bazan ?? Date of Service: 03/13/24 ?? Procedure(s): CT angio chest PE protocol ?? Accession Number(s): [id number] ? cc: Giana Isbell MD; Kristi Bazan ? Report Number: ?? [id number]: Total DLP = ??202.00 mGy-cm ?? EXAMINATION: [...] DD/ 1624 ? TD/TT: 03/13/24 1642 ? [employer] Custodian: ? Procedure Note Donotshirleneinterpreter, Image - 03/13/[address] [address] [address] Scan Report Signed Patient: Pat Bush#: [id number] : 1965Acct:[id number] Age/Sex: 58 / FADM Date: 03/13/24 Loc: HO.ED Attending Dr: Ordering Physician: Kristi Bazan Date of Service: 03/13/24 Procedure(s): CT angio chest PE protocol Accession Number(s): [id number] cc: Giana Isbell MD; Kristi Bazan Report Number: [id number]: Total DLP = 202.00 mGy-cm EXAMINATION: CT [...] 03/13/24 1700 DD/ 1624 TD/TT: 03/13/24 1642 [employer] Custodian: [facility] External Provider IMG CT PROCEDURES Final Result * High Sensitivity Troponin I (03/13/2024 4:05 PM EST) Only the most recent of2 resultswithin the time period is included. TROPONIN I HIGH SENSITIVITY 5.8 <3.5 - 17.0 ng/L [facility] Comment:The Dinh high sens itivity Troponin-I results should beused in conjunction with other diagnostic information suchas ECG, clinical observations and information, and patientsymptoms to aid in the diagnosis of [place]. 03/13/2024 4:05 PM EST 03/13/2024 4:09 PM EST Generic External Data Provider LAB BLOOD ORDERAB LES Final Result Performing Organization Address [facility] de Phone Number [facility] [address] [place] [phone] * D Dimer High Sensitivity (03/13/2024 2:52 PM EST) [facility] D Dimer High Sensitivity 349 NG/ML [facility] Comment:D-DIMER HS REFERENCE RANGENote: Our [...] ORDERAB LES Final Result Performing Organization Address [facility] Number [facility] [address] [place] [phone] * (ABNORMAL) Complete Blood Count Manual Diff (03/13/2024 2:52 PM EST) [facility] White Blood Count 7.5 4.8 - 10.8 X10*3/uL [facility] Red Blood Count 4.75 4.20 - 5.50 X10*6/uL [facility] Hemoglobin 14.2 12.0 - 16.0 g/dl [facility] Hematocrit 41.9 37.0 - 47.0 % [facility] Mean Corpuscular Volume 88.2 80.0 - 98.0 fL [facility] Mean Corpuscular Hemoglobin 29.9 27.0 - 33.0 pg [facility] Mean Corpuscular HGB Conc 33.9 31.0 - 35.0 g/dl [facility] Red Cell Distribution Width 14.5 11.0 - 16.0 % [facility] Platelet Count 148(L) 160 - 400 X10*3/uL [facility] Mean Platelet Volume 9.7 9.4 - 12.3 fL [facility] NRBC Pct Auto 0.0 0.0 - 0.2 /100WBC [facility] NRBC Abs Auto 0.000 0.0 - 0.012 X10*3/uL [facility] Neutrophils % Manual 70 45 - 73 % [facility] Band Neutrophils Percent 2(L) 3 - 5 % [facility] Lymphocytes Percent Manual 26 20 - 40 % [facility] Monocytes Percent Manual 1(L) 2 - 11 % [facility] EOSINOPHILS % MANUAL 1 0 - 4 % [facility] NEUTROPHILS ABSOLUTE MANUAL 5.4 2.0 - 8.3 X10*3/uL [facility] LYMPHOCYTES ABSOLUTE MANUAL 2.0 1.2 - 4.9 X10*3/uL [facility] MONOCYTES ABSOLUTE MANUAL 0.1 0.1 - 1.2 X10*3/uL [facility] EOSINOPHILS ABSOLUTE MANUAL 0.1 0.0 - 0.4 X10*3/uL [facility] Platelet Estimate NORMAL NORMAL [facility] Platelet Morphology Comment NORMAL [facility] RBC Morphology NORMAL [facility] Toxic Granulation PRESENT [facility] Toxic Vacuolation PRESENT [facility] Dohle Bodies PRESENT [facility] 03/13/2024 2:52 PM EST 03/13/2024 3:00 PM EST us Generic External Data Provider LAB BLOOD ORDERAB LES Final Result [facility] [address] [place] [phone] * SARS-CoV-2 RNA, Influenza A/B, and RSV RNA, Ql NAAT (03/13/2024 2:52 PM EST) [facility] Influenza A PCR NEGATIVE Negative [facility] Influenza B PCR NEGATIVE Negative [facility] Resp Syncy Virus RNA Qual PCR NEGATIVE Negative [facility] SARS COV2 PCR NEGATIVE Negative [facility] Comment:All test results mus t [...] use by authorized laboratories.Testing performed on the [employer] GeneXpert utilizingreal-time RT-PCR.All SARS CoV2 and positive influenza A/B results arereported to [facility]. 03/13/2024 2:52 PM EST 03/13/2024 3:00 PM EST us Generic External Data Provider LAB MICROBIOLOGY - GENERAL ORDERABLES Final Result [facility] [address] [place] [phone] * (ABNORMAL) CBC auto differential (03/13/2024 2:52 PM EST) Only the most recent of2 resultswithin the time period is included. [facility] White Blood Count 7.5 4.8 - 10.8 X10*3/uL [facility] Red Blood Count 4.75 4.20 - 5.50 X10*6/uL [facility] Hemoglobin 14.2 12.0 - 16.0 g/dl [facility] Hematocrit 41.9 37.0 - 47.0 % [facility] Mean Corpuscular Volume 88.2 80.0 - 98.0 fL [facility] Mean Corpuscular Hemoglobin 29.9 27.0 - 33.0 pg [facility] Mean Corpuscular HGB Conc 33.9 31.0 - 35.0 g/dl [facility] Red Cell Distribution Width 14.5 11.0 - 16.0 % [facility] Platelet Count 148(L) 160 - 400 X10*3/uL [facility] Mean Platelet Volume 9.7 9.4 - 12.3 fL [facility] Neutrophils Percent Auto 76.3(H) 45 - 73 % [facility] Imm Gran Pct Auto 0.3 0.0 - 0.4 % [facility] Lymphocytes Percent Auto 17.8(L) 20 - 40 % [facility] Monocytes Percent Auto 3.3 2 - 11 % [facility] Eosinophils Percent Auto 1.9 0 - 4 % [facility] Basophils Percent Auto 0.4 0 - 2 % [facility] NRBC Pct Auto 0.0 0.0 - 0.2 /100WBC [facility] Neutrophils Absolute Auto 5.8 2.0 - 8.3 x10*3/uL [facility] Imm Gran Abs Auto 0.02 0.00 - 0.03 X10*3/uL [facility] Lymphocytes Absolute Auto 1.3 1.2 - 4.9 X10*3/uL [facility] Monocytes Absolute Auto 0.3 0.1 - 1.2 X10*3/uL [facility] Eosinophils Absolute Auto 0.1 0.0 - 0.4 X10*3/uL [facility] Basophils Absolute Auto 0.0 0.0 - 0.2 X10*3/uL [facility] NRBC Abs Auto 0.000 0.0 - 0.012 X10*3/uL [facility] 03/13/2024 2:52 PM EST 03/13/2024 3:00 PM EST us Generic External Data Provider LAB BLOOD ORDERAB LES Edited Result - Final [facility] [address] [place] [phone] [phone] * Prothrombin Time-INR (03/13/2024 2:52 PM EST) [facility] Prothrombin Time 11.1 10.9 - 12.4 SEC [facility] INTERNATIONAL NORM RATIO 1.0 0.9 - 1.1 [facility] Comment:INTERNATIONAL NORMAL IZED RATIO (INR) [...] ORDERAB LES Final Result Performing Organization Address [facility] Co de Phone Number [facility] [address] [place] [phone] * B Type Natriuretic Peptide (BNP) (03/13/2024 2:52 PM EST) [facility] B Type Natriuretic Peptide <10 <100 pg/mL [facility] Comment:For those patients w ho are being treated with Natrecor(nesiritide, recombinant BNP), BNP testing should beperformed at least two hours post treatment in order toensure that only endogenous levels of BNP are detected. 03/13/2024 2:52 PM EST 03/13/2024 3:00 PM EST us Generic External Data Provider LAB BLOOD ORDERAB LES Final Result Performing Organization Address [facility] Co de Phone Number [facility] [address] [place] [phone] * Magnesium (03/13/2024 2:52 PM EST) Only the most recent of2 resultswithin the time period is included. Magnesium 1.9 1.6 - 2.6 mg/dL [facility] 03/13/2024 2:52 PM EST 03/13/2024 3:00 PM EST Generic External Data Provider LAB BLOOD ORDERAB LES Final Result Performing Organization Address [facility] Phone Number [facility] [address] [place] [phone] * (ABNORMAL) Hepatic Function Panel (03/13/2024 2:52 PM EST) Pathologist [facility] Bilirubin, Total 0.5 0.0 - 1.0 mg/dL [facility] Bilirubin, Direct 0.1 0.0 - 0.5 mg/dL [facility] Aspartate Amino Transferase 33(H) 5 - 31 U/L [facility] Comment:Slight Hemolysis.Int erpret result with caution. Alanine Aminotransferase 38(H) 0 - 31 U/L [facility] Total Protein 6.7 6.5 - 8.0 g/dL [facility] Albumin Level 3.7 3.5 - 5.0 g/dL [facility] Alkaline Phosphatase 161(H) 39 - 117 U/L [facility] 03/13/2024 2:52 PM EST 03/13/2024 3:00 PM EST Generic External Data Provider LAB BLOOD ORDERAB LES Final Result Performing Organization Address [facility] de Phone Number [facility] [address] [place] [phone] * (ABNORMAL) Basic Metabolic Panel (03/13/2024 2:52 PM EST) Pathologist [facility] Sodium 140 135 - 145 mmol/L [facility] Potassium 4.0 3.3 - 5.1 mmol/L [facility] Comment:Slight Hemolysis.Int erpret result with caution. Chloride 109(H) 96 - 108 mmol/L [facility] Carbon Dioxide 22 22 - 29 mmol/L [facility] Anion Gap 13 12 - 20 [facility] Urea Nitrogen (BUN) 20(H) 9 - 16 mg/dL [facility] Creatinine, Serum 0.93 0.5 - 1.4 mg/dL [facility] Creatinine Clr Calc Pharmacy 54.5 [facility] Comment:Provided height and weight: 160.02 cm,58.967 kg.eGFR (calculated from the MDRD study equation) and eCrCl(calculated from the Cockcroft-Gault equation) are based ondifferent parameters and may not yield comparable results.If eCrCl result is absurd, please check patient'sheight/weight. Estimated Glomerular Filt Rate >60 [facility] Comment:Chronic Kidney Disea se: Estimated GFR < 60 mL/min/1.17h5Oysiiw Kidney Disease: Estimated GFR < 15 mL/min/1.73m2 Glucose 123(H) 60 - 115 mg/dL [facility] Calcium 9.0 8.4 - 10.2 mg/dL [facility] 03/13/2024 2:52 PM EST 03/13/2024 3:00 PM EST us Generic External Data Provider LAB BLOOD ORDERAB LES Final Result Performing Organization Address City/State/[facility] Co de Phone Number [facility] [address] [place] [phone] * XR Chest 1 View (03/13/2024 2:39 PM EST) Anatomical Region Laterality Modality Chest Radiographic Laura ging 03/13/2024 2:39 PM EST Narrative 03/13/2024 3:51 PM EST ? [facility] ?[address] [place] [address] ?[place] [address] ?XRay Report ? Signed ? Patient: Tamia Sánchez,Tory ?MR#: [id number] ?? [id number] ? : 1965 ?Acct:[id number] ? Age/Sex: 58 / F ?ADM Date: 02/04/25 ? Loc: HO.ED ? Attending Dr: ? Ordering Physician: Kristi Bazan ?? Date of Service: 03/13/24 ?? Procedure(s): XR chest 1V ?? Accession Number(s): [id number] ? cc: Giana Isbell MD; Kristi Bazan [...] DD/ 1439 ? TD/TT: 03/13/24 1525 ? [employer] Custodian: ? Procedure Note Trish, Image - 03/13/2024 [place] [address] XRay Report Signed Patient: Pat Bush#: [id number] : 1965Acct:[id number] Age/Sex: 58 / FADM Date: 03/13/24 Loc: HO.ED Attending Dr: Ordering Physician: Kristi Bazan Date of Service: 03/13/24 Procedure(s): XR chest 1V Accession Number(s): [id number] cc: Giana Isbell MD; Kristi Bazan EXAMINATION: [...] 03/13/24 1549 DD/ 1439 TD/TT: 03/13/24 1525 [employer] Custodian: [facility] External Provider IMG XR PROCEDURES Final Result * (ABNORMAL) POCT Urinalysis (02/22/2024 4:33 PM EST) Color, UA Dark Kyile Clarity, UA Hazy Glucose, UA 2+ 125++ [...] EST Narrative 02/23/2024 9:49 AM EST ? [facility] ?[address] ?[place] [address] ? Mammography Report ? Signed with Addenda ? Patient: Tamia Sánchez,Tory ?MR#: [id number] ?? [id number] ? : 1965 ?Acct:[id number] ? Age/Sex: 58 / F ?ADM Date: 01/15/25 ? Loc: HO.MRI ? Attending Dr: Rhona Badillo MD ? Ordering Physician: Rhona Badillo MD ?Results: 1Negati ?? ve ? Date of Service: 02/22/24 ?Follow Up: 1 Year From Orig ?? inal Mammogram ? Procedure(s): MM tomosynthesis diagnostic LT ?? Accession Number(s): [id number] ? cc: Giana Isbell MD; Rhona Badillo [...] 1% lidocaine with epinephrine. ? NEEDLE: ?? Smaile[employer] Atec 9-gauge vacuum assisted core biopsy device. [...] DD/ 1255 ? TD/TT: 02/22/24 1305 ? [employer] Custodian: ? Procedure Note Trish, Image - 03/02/2024 [place] [address] [place] [address] Mammography Report Signed with Addcordell Patient: Pat Bush#: [id number] : 1965Acct:[id number] Age/Sex: 58 / FADM Date: 02/22/24 Loc: HO.MRI Attending Dr: Rhona Badillo MD Ordering Physician: Rhona Badilloesults: 1Negati ve Date of Service: 02/22/24Follow Up: 1 Year From [facility] Mammogram Procedure(s): MM tomosynthesis diagnostic LT Accession Number(s): [id number] cc: Giana Isbell MD; Rhona Badillo MD [...] without and with use of gadolinium contrast. Banner introducer localization system is used with grid. LESION: Left retroareolar lower outer breast anterior depth.. LOCAL ANESTHESIA: 6 mL 1% lidocaine; 4 mL 1% lidocaine with epinephrine. NEEDLE: [employer] 9-gauge vacuum assisted core biopsy device. APPROACH: [...] 02/23/24 0947 DD/ 1255 TD/TT: 02/22/24 1305 [employer] Custodian: [facility] External Provider IMG BI PROCEDURES Edited Result - Final * Hematoxylin and Eosin Stain (02/22/2024 12:27 PM EST) Only the most recent of2 resultswithin the time period is included. 02/22/2024 12:2 7 PM EST 02/22/2024 1:32 PM EST [facility] - 02/24/2024 2:51 PM EST ----- ------- Name: Tory Bush ?Age/Sex: 58/F ? : 1965 Unit#: [id number] ?? Attend Dr: Rhona Badillo MD ?Re02/22/24 ?Status: DEP REF ? Location: HO.MRI ?Disch: ? ----- ------- SPEC : [id number] ?RECD: 02/22/24-1331 ? STATUS: ??SOUT ? REQ NUM: [id number] ? TEQUILA: 02/22/24-1227 ? SUBM DR: Carissa [...] Copies To: ?? Giana Isbell MD ?? [facility] ?? [address] ?? [place] [address] ?? [phone] ?? Rhona Badillo MD ?? [facility] Oncology/Hematology ?? [address] [facility] ?? [place] [address] ?? [phone] ? CONTINUED ON NEXT PAGE ----- ------- Name: Tory Bush ?Age/Sex: 58/F ? : 1965 Unit#: [id number] ?? Attend Dr: Rhona Badillo MD ?Re02/22/24 ?Status: DEP REF ? Location: HO.MRI ?Disch: ? ----- ------- SPEC : [id number] ?RECD: 02/22/24-2 ? STATUS: ??SOUT ? REQ NUM: [id number] ? TEQUILA: 02/22/24-1227 ? SUBM DR: Carissa Raza DO ? ENTERED: ??02/22/24-1 ?SP TYPE: Surgical ? OTHR DR: Giana Isbell MD ?Rhona Badillo MD ORDERED: ??HE Stain/2, Gross Micro L4 ? COMMENTS: As per the specimen requisition slip the specimen is ?collected at 1227 and placed in formalin at 1240. Copies To: ??(Continued) ?? Carissa Raza DO ?? [address] [facility] ?? [place] [address] ?? [phone] ----- ------- Signed (signature on file) Osman Ríos MD 02/24/24 1451 ? ----- ------- ? END OF REPORT ? us Generic External Data Provider LAB BLOOD ORDERAB LES Final Result [facility] [address] [facility] [place] [address] [phone] * BI MR Guided Breast Biopsy Left (02/22/2024 11:14 AM EST) Anatomical Region Laterality Modality Breast Left Magnetic Resonan ce 02/22/2024 11:1 4 AM EST Narrative 02/23/2024 9:50 AM EST ? [place] [facility] ?[address] ?[place] [address] ? Magnetic Resonance Report ? Signed with Addenda ? Patient: Tamia Sánchez,Tory ?MR#: [id number] ?? [id number] ? : 1965 ?Acct:[id number] ? Age/Sex: 58 / F ?ADM Date: 02/22/24 ? Loc: HO.MRI ? Attending Dr: Rhona Badillo MD ? Ordering Physician: Rhona Badillo MD ?? Date of Service: 02/22/24 ?? Procedure(s): MR guided breast biopsy LT ?? Accession Number(s): [id number] ? cc: Giana Isbell MD; Rhona Badillo [...] DO ??02/23/2024 09:47 AM EST ?? Workstation: [id number] [id number] ? Dictated By: ?Carissa Raza DO ? Signed By: ?<Electronically signed by Carissa Raza, in OV> ? 02/23/24 0947 ? DD/ 1114 ? TD/TT: 02/22/24 1230 ? [employer] Custodian: ? Procedure Note Donmichelle, Image - 03/02/2024 [place] [address] Magnetic Resonance Report Signed with Addenda Patient: Pat Bush#: [id number] : 1965Acct:[id number] Age/Sex: 58 / FADM Date: 02/22/24 Loc: HO.MRI Attending Dr: Rhona Badillo MD Ordering Physician: Rhona Badillo MD Date of Service: 02/22/24 Procedure(s): MR guided breast biopsy LT Accession Number(s): [id number] cc: Giana Isbell MD; Rhona Badillo MD [...] without and with use of gadolinium contrast. Buz introducer localization system is used with grid. LESION: Left retroareolar lower outer breast anterior depth.. LOCAL ANESTHESIA: 6 mL 1% lidocaine; 4 mL 1% lidocaine with epinephrine. NEEDLE: [employer] 9-gauge vacuum assisted core biopsy device. APPROACH: [...] 02/23/24 0947 DD/ 1114 TD/TT: 02/22/24 1230 [employer] Custodian: [facility] External Provider IMG MRI PROCEDURES Edited Result - Final * IR cvc insert tunnel w prt/relationship executive (02/16/2024 7:46 AM EST) Anatomical Region Laterality Modality X-Ray Angiograph y 02/16/2024 7:46 AM EST Narrative 02/24/2024 2:22 PM EST ? [facility] ?[address] ?[place] [address] ?Interventional Radiology Rpt ? Signed ? Patient: Tamia Tory Sánchez ?MR#: [id number] ?? [id number] ? : 1965 ?Acct:[id number] ? Age/Sex: 58 / F ?ADM Date: 02/16/24 ? Loc: HO.SSS ? Attending Dr: Rhona Badillo MD ? Ordering Physician: Rhona Badillo MD ?? Date of Service: 02/16/24 ?? Procedure(s): IR cvc insert tunnel w prt/relationship executive ?? Accession Number(s): [id number] ? cc: Giana Isbell MD; Rhona Badillo [...] records. ?? 2. Placement of a 6.6 Montserratian single-lumen power port. ? CLINICIAN: ?? Fortino [...] site. Through the peel-away sheath, the 6.6 Montserratian port catheter was ?? placed. The catheter [...] vein ?? 2. Placement of a 6.6 Montserratian single lumen power port. ?? 3. Port flushes and aspirates very well with a 10 mL syringe. No ?? pneumothorax. ? IR/IR cvc insert tunnel w prt/relationship executive ?? IMPRESSION: ?? Placement of a 6.6 Montserratian single-lumen power port. ? PLAN: ?? - [...] DD/ 0746 ? TD/TT: 02/16/24 0934 ? [employer] Vault Custodian: ? Procedure Note Donhernanter, Image - 02/24/2024 [place] [address] Interventional Radiology Rpt Signed Patient: Pat Bush#: [id number] : 1965Acct:[id number] Age/Sex: 58 / FADM Date: 02/16/24 Loc: HO.SSS Attending Dr: Rhona Badlilo MD Ordering Physician: Rhona Badillo MD Date of Service: 02/16/24 Procedure(s): IR cvc insert tunnel w prt/relationship executive Accession Number(s): [id number] cc: Giana Isbell MD; Rhona Badillo MD CLINICAL HISTORY: Right breast cancer. The patient presents to interventional radiology for placement of a port for chemotherapy. PROCEDURES: 1. Real-time ultrasound-guided access into the left internal jugular vein after documentation of selected vessel patency, and permanent image storing in the patient records. 2. Placement of a 6.6 Montserratian single-lumen power port. CLINICIAN: Fortino Muniz PA-C [...] site. Through the peel-away sheath, the 6.6 Montserratian port catheter was placed. The catheter position [...] jugular vein 2. Placement of a 6.6 Montserratian single lumen power port. 3. Port flushes and aspirates very well with a 10 mL syringe. No pneumothorax. IR/IR cvc insert tunnel w prt/relationship executive IMPRESSION: Placement of a 6.6 Montserratian single-lumen power port. PLAN: - The patient will be discharged home when stable by sedation protocol. - Port may be used immediately. This procedure was performed by Fortino Muniz PA-C, and directly supervised by Dr. Pan Electronically signed by: Jose R Pan MD 02/24/2024 02:18 PM [facility] [place] Dictated By: Fortino Muniz Signed By: <Electronically signed by Fortino Muniz in OV> 02/24/24 1418 <Electronically signed by Jose R Pan MD in OV> 02/24/24 1421 DD/ 0746 TD/TT: 02/16/24 0934 [employer]ault Custodian: us [facility] External Provider IMG IR PROCEDURES Edited Result - Final * (ABNORMAL) Glucose, Whole Blood (02/16/2024 7:06 AM EST) Glucose, Whole Blood 142(H) 60 - 115 mg/dL [facility] Comment:METER #: [id number] 02/16/2024 7:06 AM EST 02/16/2024 7:11 AM EST Generic External Data Provider LAB BLOOD ORDERAB LES Final Result Performing Organization Address City/State/[facility] Co de Phone Number [facility] [address] [place] [phone] * (ABNORMAL) Comprehensive Metabolic Panel (02/15/2024 2:03 PM EST) Sodium 145 135 - 145 mmol/L [facility] Potassium 4.2 3.3 - 5.1 mmol/L [facility] Chloride 109(H) 96 - 108 mmol/L [facility] Carbon Dioxide 28 22 - 29 mmol/L [facility] Anion Gap 12 12 - 20 [facility] Urea Nitrogen (BUN) 14 9 - 16 mg/dL [facility] Creatinine, Serum 0.89 0.5 - 1.4 mg/dL [facility] Estimated Glomerular Filt Rate >60 [facility] Comment:Chronic Kidney Disea se: Estimated GFR < 60 mL/min/1.00a8Yjmsuk Kidney Disease: Estimated GFR < 15 mL/min/1.73m2 Glucose 94 60 - 115 mg/dL [facility] Calcium 8.9 8.4 - 10.2 mg/dL [facility] Bilirubin, Total 0.4 0.0 - 1.0 mg/dL [facility] Aspartate Amino Transferase 36(H) 5 - 31 U/L [facility] Alanine Aminotransferase 33(H) 0 - 31 U/L [facility] Total Protein 7.1 6.5 - 8.0 g/dL [facility] Albumin Level 4.2 3.5 - 5.0 g/dL [facility] Alkaline Phosphatase 122(H) 39 - 117 U/L [facility] 02/15/2024 2:03 PM EST 02/15/2024 2:03 PM EST us Generic External Data Provider LAB BLOOD ORDERAB LES Final Result Performing Organization Address City/State/[facility] Co de Phone Number [facility] [address] [place] [address] [phone] * BI US Breast Limited Left (02/10/2024 12:15 PM EST) Anatomical Region Laterality Modality Breast Left Ultrasound 02/10/2024 12:1 5 PM EST Narrative 02/10/2024 3:42 PM EST ? [facility] ? [address] ?[place] [address] ? Ultrasound Report ? Signed ? Patient: Tory Bush ?MR#: [id number] ?? [id number] ? : 1965 ?Acct:[id number] ? Age/Sex: 58 / F ?ADM Date: 02/10/24 ? Loc: HO.MAMMO ? Attending Dr: Rhona Badillo MD ? Ordering Physician: Rhona Badillo MD ?? Date of Service: 02/10/24 ?? Procedure(s): US breast LT limited mamm only ?? Accession Number(s): [id number] ? cc: Giana Isbell MD; Rhona Badillo [...] DD/ 1215 ? TD/TT: 02/10/24 1231 ? [employer] Vault Custodian: ? Procedure Note Trish, Image - 02/10/2024 [place] [facility] [address] [place], [place] [address] Ultrasound Report Signed Patient: Sammy BushBertha#: [id number] : 1965Acct:[id number] Age/Sex: 58 / FADM Date: 02/10/24 Loc: ADELITA Attending Dr: Rhona Badillo MD Ordering Physician: Rhona Badillo MD Date of Service: 02/10/24 Procedure(s): US breast LT limited mamm only Accession Number(s): [id number] cc: Giana Isbell MD; Rhona Badillo MD [...] 02/10/24 1539 DD/ 1215 TD/TT: 02/10/24 1231 [employer]ault Custodian: us [facility] External Provider IMG US PROCEDURES Edited Result - Final * (ABNORMAL) TSH W/Reflex to FT4 (02/06/2024 10:45 AM EST) TSH reflex Free T4 10.06(H) 0.32 - 4.0 uIU/mL [facility] Blood Venous blood specimen / Unknown 02/06/2024 10:45 AM EST 02/06/2024 10:45 AM EST us Giana Isbell MD LAB BLOOD ORDERABLES Final Result Performing Organization Address [facility] Co de Phone Number [facility] [address] [place] [address] [phone] * (ABNORMAL) T4, Free (02/06/2024 10:45 AM EST) Free T4 (Free Thyroxine) 0.68(L) 0.71 - 1.85 ng/dL [facility] 02/06/2024 10:4 5 AM EST 02/06/2024 10:45 AM EST us Generic External Data Provider LAB BLOOD ORDERAB LES Final Result Performing Organization Address [facility] de Phone Number [facility] [address] [place] [address] [phone] * BI MR Breast w and w/o Contrast Bilateral (02/06/2024 9:33 AM EST) Anatomical Region Laterality Modality Breast Bilateral Magnetic Resonan ce 02/06/2024 9:33 AM EST Narrative 02/10/2024 3:39 PM EST ? [facility] ?[address] ?[place] [address] ? Magnetic Resonance Report ? Signed with Addenda ? Patient: Tamia Sánchez,Tory ?MR#: [id number] ?? [id number] ? : 1965 ?Acct:[id number] ? Age/Sex: 58 / F ?ADM Date: 12/30/24 ? Loc: HO.MRI ? Attending Dr: Paredep Marcos MD ? Ordering Physician: Pardeep Marcos MD ?? Date of Service: 02/06/24 ?? Procedure(s): MR breast BI wo/w con ?? Accession Number(s): [id number] ? cc: Giana Isbell MD; Pardeep Marcos [...] DD/ 0933 ? TD/TT: 02/06/24 1016 ? [employer] Vault Custodian: ? Procedure Note Donhernanter, Image - 02/13/2024 [place] [address] Magnetic Resonance Report Signed with Addenda Patient: Pat Bush#: [id number] : 1965Acct:[id number] Age/Sex: 58 / FADM Date: 02/06/24 Loc: HO.MRI Attending Dr: Pardeep Marcos MD Ordering Physician: Pardeep Marcos MD Date of Service: 02/06/24 Procedure(s): MR breast BI wo/w con Accession Number(s): [id number] cc: Giana Isbell MD; Pardeep Marcos MD [...] 02/10/24 1536 DD/ 0933 TD/TT: 02/06/24 1016 [employer] Vault Custodian: [facility] External Provider IMG MRI PROCEDURES Edited Result - Final * Surgical Pathology (01/18/2024 9:43 AM EST) Historical Provider LAB PATHOLOGY ORDERABLES Final Result * BREAST NDL CORE BIOPSY RT (01/18/2024 8:00 AM EST) Anatomical Region Laterality Modality Abdomen Ultrasound 01/18/2024 8:00 AM EST Narrative 01/18/2024 9:40 AM EST ? [facility] ? [address] ?[place] [address] ? Ultrasound Report ? Signed with Addenda ? Patient: Tamia Sánchez,Tory ?MR#: [id number] ?? [id number] ? : 1965 ?Acct:[id number] ? Age/Sex: 58 / F ?ADM Date: 12/11/24 ? Loc: HO.MAMMO ? Attending Dr: Pardeep Marcos MD ? Ordering Physician: Pardeep Marcos MD ?? Date of Service: 01/18/24 ?? Procedure(s): US breast ndl core biopsy RT ?? Accession Number(s): [id number] ? cc: Giana Isbell MD; Pardeep Marcos [...] ??01/18/2024 09:37 AM EST ? Dictated By: ?Carsisa Raza DO ? Signed By: ?<Electronically signed by Carissa Raza, DO in OV> ? 01/18/24 0937 ? DD/ 0800 ? TD/TT: 01/18/248[address] ? Trust Vault Custodian: ? Procedure Note Trish, Eliud - 01/25/2024 [place] [facility] [address] [place], [place] [address] Ultrasound Report Signed with Fani Patient: Pat Bush#: [id number] : 1965Acct:[id number] Age/Sex: 58 / FADM Date: 01/18/24 Loc: HONEYDA Attending Dr: Padreep Marcos MD Ordering Physician: Pardeep Marcos MD Date of Service: 01/18/24 Procedure(s): US breast ndl core biopsy RT Accession Number(s): [id number] cc: Giana Isbell MD; Pardeep Marcos MD [...] OV> 01/18/2437 DD/ 0800 TD/TT: 01/18/24 0835 Trust Vault Custodian: [facility] External Provider IMG US PROCEDURES Edited Result - Final * BI Mammogram Diagnostic Tomosynthesis Right (01/18/2024 8:00 AM EST) Anatomical Region Laterality Modality Breast Right Mammography 01/18/2024 8:00 AM EST Narrative 01/18/2024 9:40 AM EST ? [facility] ? [address] ?[place] [address] ? Mammography Report ? Signed with Addenda ? Patient: Tamia Sánchez,Tory ?MR#: [id number] ?? [id number] ? : 1965 ?Acct:[id number] ? Age/Sex: 58 / F ?ADM Date: 01/18/24 ? Loc: HO.MAMMO ? Attending Dr: Pardeep Marcos MD ? Ordering Physician: Pardeep Marcos MD ?Results: ? Date of Service: 01/18/24 ?Follow Up: ? Procedure(s): MM tomosynthesis diagnostic RT ?? Accession Number(s): [id number] ? cc: Giana Isbell MD; Pardeep Marcos [...] DD/ 0800 ? TD/TT: 01/18/24 0835 ? Trust Vault Custodian: ? Procedure Note Donotuseinterpreter, Image - 01/25/2024 [place] [facility] [address] [place], [place] [address] Mammography Report Signed with Addenda Patient: Pat Bush#: [id number] : 1965Acct:[id number] Age/Sex: 58 / FADM Date: 01/18/24 Loc: HO.MAMMO Attending Dr: Pardeep Marcos MD Ordering Physician: Pardeep Marcos MDResults: Date of Service: 01/18/24Follow Up: Procedure(s): MM tomosynthesis diagnostic RT Accession Number(s): [id number] cc: Giana Isbell MD; Pardeep Marcos MD [...] by: Carissa Raza DO 01/18/2024 09:37 AM [facility] [place] Dictated By: Carissa Raza DO Signed By: <Electronically signed by Carissa Raza DO in OV> 01/18/24 0937 DD/ 0800 TD/TT: 01/18/24 0835 Trust Vault Custodian: [facility] External Provider IMG BI PROCEDURES Edited [...] HPV nRNA E6/E7 Not Detected Not Detected [facility] Comment:Methodology: Transcr iption-Mediated AmplificationThis assay detects E6/E7 viral messenger RNA (mRNA) from 14high-risk HPV types (16,18,31,33,35,39,45,51,52,56,58,59,66,68).Cervical sources are required for HPV testing.If a vaginal source from a patient who has had atotal hysterectomy with removal of cervix wassubmitted, please contact the testing laboratoryfor alternative testing options.For additional information, please refer tohttp://education.Easy Pairings/faq/TYV378q9(This link if provided for information/educational purposes only.)THIS TEST WAS PERFORMED AT:[facility] [address] [phone] FISCHER MD SOURCE: SEE NOTE [facility] Comment:None given Report Status: [facility] Clinical Information: SEE NOTE [facility] Comment:None given LMP: SEE NOTE [facility] Comment:NONE GIVEN Prev. PAP: SEE NOTE [facility] Comment:NONE GIVEN Prev. BX: SEE NOTE [facility] Comment:NONE GIVEN Statement Of Adequacy: SEE NOTE [facility] Comment:Satisfactory for tiffany luation.Endocervical/transformation zone componentpresent. General Categorization: [facility] Interpretation/Result: SEE NOTE [facility] Comment:Cytology Results: Ne gative for intraepitheliallesion or malignancy. Cytology Comment SEE NOTE [facility] Comment:This Pap test has be en evaluated with computerassisted technology. Farm Butcher: SEE NOTE [facility] Comment:YP, CT(ASCP)CT aniya christian location: [address] [address] Review Farm Butcher: [facility] Pathologist [facility] PAP Infection [facility] See Note [facility] Comment:EXPLANATORY NOTE:The Pap is a screening test for cervical cancer. It isnot a diagnostic test and is subject to false negativeand false positive results. It is most reliable when asatisfactory sample, regularly obtained, is submittedwith relevant clinical findings and history, and whenthe Pap result is evaluated along with historic andcurrent clinical information. 10/25/2023 10/25/2023 Narrative [facility] - 11/01/2023 12:30 PM EDT SEE SCANNED RESULTS IN EMR Lou Gonzalez MD LAB PATHOLOGY ORDERABLES Ashlyn l Result Performing Organization Address [facility] Co de Phone Number [facility] [address] [place] [phone] * Hepatitis Panel, General (01/13/2023 9:50 AM EST) Hepatitis A IgM Nonreactive Nonreactive [facility] Comment:IgM antibodies to RUELAS V not detected; does not exclude earlyacute or recovered HAV infection. ~Hepatitis B Surface Antibody NONREACTIVE Nonreactive [facility] Comment:Nonreactive: < 8.00 mIU/mL Hepatitis B Core Antibody Nonreactive Nonreactive [facility] Hepatitis C Antibody Nonreactive Nonreactive [facility] Comment:Antibodies to HCV no t detected; does not exclude early acuteHCV infection. Hepatitis B Surface Ag Negative Negative [facility] 01/13/2023 9:50 AM EST 01/13/2023 9:52 AM EST Generic External Data Provider LAB BLOOD ORDERAB LES Final Result Performing Organization Address [facility] Co de Phone Number [facility] [address] [place] [phone] * (ABNORMAL) LIPID PANEL, STANDARD (08/04/2021 [...] ?? Esteban JACOBS et al. NIC. 2013;310(19): 5760-3128 ?? (http://BlueCat Networks.Sevenpop/faq/IWA587) Non-HDL Cholesterol 188(H) <130 mg/dL (calc) [facility] Comment: For patients with diabetes plus 1 major ASCVD risk ?? factor, treating to a non-HDL-C goal of <100 mg/dL ?? (LDL-C of <70 mg/dL) is considered a therapeutic ?? option. Triglycerides 189(H) <150 mg/dL [facility] 08/04/2021 9:06 AM EDT Giana Isbell MD LAB BLOOD ORDERABLES Final Result [facility] [address] * Hm Colonoscopy (12/02/2015) Colonoscopy Normal Normal Narrative Lily Sanchez - 12/02/2015 Recommended 10 year follow up Historical Provider HEALTH MAINTENANCE Final Result from Last 3 Months or Most Recently Relevant to Health Maintenance [place] [address] [address] [place] [address] - [facility] Care Teams Systems Specialist Relationship Specialty Start Date End Date Giana Isbell MD [address] [place] [address] PCP - General Internal Medicine 09/07/18
--- OUTSIDE RECORDS SUMMARY | 2024-04-09 15:05 | XMS_ITS | Encounter Summary ---
Author Organization [employer] Address [address] [facility] [address] [address] Care Team Providers Care Buckram Sewer Name Role Phone Giana Isbell MD Primary Care Provider [phone] Reason for Referral * Consultation (Routine) - Authorized Specialty Diagnoses / Procedures Referred By Contharman t Referred To Contact Cardiology Diagnoses SOB (shortness of breath) Giana Isbell MD [address] [place] [address] Phone: tel: fax: Kavon Berumen MD [address] [facility] Floor [address] [place] [address] Phone: tel: fax: Referral ID Status Reason Start Date Expiration Date Visits Requested Visits Authorized [id number] Authorized Specialty Services Required 12/18/2024 1 1 Encounter Details Date Type Department Care Team (Late st Contact Info) Description 12/19/2023 Orders Only [facility] CHC MED & PEDS [address] [place] [address] Giana Isbell MD [address] [place] [address] SOB (shortness of breath) (Primary Dx) Social [...] Description 06/11/2024 9:00 AM EDT Office Visit [facility] OPTOMETRY [address] [place] [address] Dawna Pro, OD [address] [place] [address] 06/26/2024 1:30 PM EDT Office Visit [facility] CHC MED & PEDS [address] [place], [place] [phone] Giana Isbell MD [address], [place] [phone] Scheduled Referrals Name Type Priority Associated Diagnoses [...] EST Narrative 01/18/2024 9:40 AM EST ? [facility] ? [address] ?[place] [address] ? Ultrasound Report ? Signed with Addenda ? Patient: Tory Bush ?MR#: [id number] ?? [id number] ? : 1965 ?Acct:[id number] ? Age/Sex: 58 / F ?ADM Date: 01/18/24 ? Loc: HO.MAMMO ? Attending Dr: Pardeep Marcos MD ? Ordering Physician: Pardeep Marcos MD ?? Date of Service: 01/18/24 ?? Procedure(s): US breast ndl core biopsy RT ?? Accession Number(s): [id number] ? cc: Giana Isbell MD; Pardeep Marcos [...] DD/ 0800 ? TD/TT: 01/18/24 0835 ? Perinatal Tech: ? Procedure Note Trish, Image - 01/25/2024 [place] [facility] [address] [place], [place] [address] Ultrasound Report Signed with Addenda Patient: Pat Bush#: [id number] : 1965Acct:[id number] Age/Sex: 58 / FADM Date: 01/18/24 Loc: HO.MAMMO Attending Dr: Pardeep Marcos MD Ordering Physician: Pardeep Marcos MD Date of Service: 01/18/24 Procedure(s): US breast ndl core biopsy RT Accession Number(s): [id number] cc: Giana Isbell MD; Pardeep Marcos MD [...] OV> 01/18/2437 DD/ 0800 TD/TT: 01/18/24 0835 Perinatal Tech: [facility] External Provider IMG US PROCEDURES Edited Result - Final * BI Mammogram Diagnostic Tomosynthesis Right (01/18/2024 8:00 AM EST) Anatomical Region Laterality Modality Breast Right Mammography 01/18/2024 8:00 AM EST Narrative 01/18/2024 9:40 AM EST ? [facility] ? [address] ?[place] [address] ? Mammography Report ? Signed with Addenda ? Patient: Tamia Sánchez,Tory ?MR#: [id number] ?? [id number] ? : 1965 ?Acct:[id number] ? Age/Sex: 58 / F ?ADM Date: 12/11/24 ? Loc: HO.MAMMO ? Attending Dr: Pardeep Marcos MD ? Ordering Physician: Pardeep Marcos MD ?Results: ? Date of Service: 01/18/24 ?Follow Up: ? Procedure(s): MM tomosynthesis diagnostic RT ?? Accession Number(s): [id number] ? cc: Giana Isbell MD; Pardeep Marcos [...] DD/ 0800 ? TD/TT: 01/18/24 0835 ? Perinatal Tech: ? Procedure Note Barbter, Image - 01/25/2024 [facility] [address] [place] [address] Mammography Report Signed with Fani Patient: Pat Bush#: [id number] : 1965Acct:[id number] Age/Sex: 58 / FADM Date: 01/18/24 Loc: ADELITA Attending Dr: Pardeep Marcos MD Ordering Physician: Pardeep Marcosults: Date of Service: 01/18/24Follow Up: Procedure(s): MM tomosynthesis diagnostic RT Accession Number(s): [id number] cc: Giana Isbell MD; Pardeep Marcos MD [...] OV> 01/18/2437 DD/ 9 TD/TT: 01/18/24 0835 Perinatal Tech: [facility] External Provider IMG BI PROCEDURES Edited Result - Final documented in this encounter Visit Diagnoses Diagnosis SOB (shortness of breath)- Primary Shortness of breath documented in this encounter Additional Health Concerns Assessment Noted Time PHQ-9 Depression Total Score: 7 07/30/19 23 10:13 AM EDT documented as of this encounter Care Teams Buckram Sewer Relationship Specialty Start Date End Date Giana Isbell MD [address] [place] [phone] PCP - General Internal Medicine 09/07/18 documented as of this encounter
--- OUTSIDE RECORDS SUMMARY | 2024-04-09 15:05 | XMS_ITS | Encounter Summary ---
Author Organization [employer] Address [address] [facility] 7t [place] [address] Care Team Providers Care Automobile Salesman Name Role Phone Giana Isbell MD Primary Care Provider [phone] Encounter Details Date Type Department Care Team ([facility] st Contact Info) Description 05/06/[address] [facility] CHC MED & PEDS [address] [place] [address] Giana Isbell MD [address] [place] [address] Acquired hypothyroidism (Primary Dx) Social History Tobacco [...] [facility] [address] [place], [place] [phone] Morteza, Dawna, OD [address] [place] [address] 06/26/2024 1:30 PM EDT Office Visit [facility] CHC MED & PEDS [address] [place], [place] [phone] Giana Isbell MD [address] [place] [address] documented as of this encounter Procedures Procedure Name Priority Date/Time Associated Diagnosis Comments TSH W/REFLEX TO FT4 Routine 02/06/2024 10:45 AM EST Acquired hypothyroidism documented in this encounter Results * (ABNORMAL) TSH W/Reflex to FT4 (02/06/2024 10:45 AM EST) TSH reflex Free T4 10.06(H) 0.32 - 4.0 uIU/mL [facility] Blood Venous blood specimen / Unknown 02/06/2024 10:45 AM EST 02/06/2024 10:45 AM EST Giana Isbell MD LAB BLOOD ORDERABLES Final Result [facility] [address] [place] [phone] [phone] documented in this encounter Visit Diagnoses Diagnosis Acquired hypothyroidism- Primary Unspecified hypothyroidism documented in this encounter Additional Health Concerns Assessment Noted Time PHQ-9 Depression Total Score: 7 07/30/19 23 10:13 AM EDT documented as of this encounter Care Teams Automobile Salesman Relationship Specialty Start Date End Date Giana Isbell MD [address] [place] [address] PCP - General Internal Medicine 09/07/18 documented as of this encounter
--- OUTSIDE RECORDS SUMMARY | 2024-04-09 15:05 | XMS_ITS | Encounter Summary ---
Author Organization [employer] Address [address] [facility] 7t [place] [address] Care Team Providers Care Ground Crew Lines Person Name Role Phone Giana Isbell MD Primary Care Provider [phone] Encounter Details Date Type Department Care Team ([facility] Contact Info) Description 02/17/2024 Orders Only [facility] [address] [place] [address] Provider, MD Kathi Social History Tobacco Use [...] Description 06/11/2024 9:00 AM EDT Office Visit [facility] OPTOMETRY [address] [place] [address] MortezaDawna, OD [address] [place] [address] 06/26/2024 1:30 PM EDT Office Visit [facility] CHC MED & PEDS [address] [place], [place] [phone] Giana Isbell MD [address] [place], [place] [phone] documented as of this encounter Procedures Procedure [...] documented as of this encounter Care Teams Ground Crew Lines Person Relationship Specialty Start Date End Date Giana Isbell MD [address] [place] [address] PCP - General Internal Medicine 09/07/18 documented as of this encounter
== END 2024-04-09 13:46 | disposition home or self-care (01) ==
PROVIDERS: PCP Internal Medicine; Visit Provider Student in an Organized Health Care Education/Training Program
DX: E89.0 Postprocedural hypothyroidism (principal)
CPT/HCPCS: 99214

== ENCOUNTER 2024-04-19 08:20 | Outpatient (REF) | payer OTHER, SELFPAY ==
--- NOTE | ~2024-04-19 | XR_ITS ---
EXAMINATION: XR CHEST CLINICAL INFORMATION: cough. H/o pneumonia COMPARISON: CT angiogram chest 03/13/2024. Chest radiograph 04/25/2023. TECHNIQUE: 2 views of the chest were obtained. FINDINGS: Left-sided chest port in place with tip extending into the cavoatrial junction. This is well positioned. The cardiac, hilar, and mediastinal contours are normal. The lungs are clear bilaterally. There is no pneumothorax or pleural effusion. There is no focal osseous or soft tissue abnormality. Cholecystectomy clips present. XR/XR chest 2V IMPRESSION: 1. Well-positioned left chest port. 2. No active pulmonary disease. Electronically signed by: Ant Cole MD 04/19/2024 09:45 AM EDT
--- OUTSIDE RECORDS SUMMARY | 2024-04-19 08:44 | XMS_ITS | Encounter Summary ---
Author Organization [employer] Address [address] 7t [place] [address] Care Team Providers Care Cross Country/Track And Field Coach Name Role Phone Giana Isbell MD Primary Care Provider [phone] Encounter Details Date Type Department Care Team [...] Care Team (Late st Contact Info) Description 06/26/2024 1:30 PM EDT Office Visit [facility] MED & PEDS [address] [place] [address] Giana Isbell MD [address] [place] [address] documented as of this encounter Visit Diagnoses Not on filedocumented in this encounter Additional Health Concerns Assessment Noted Time PHQ-9 Depression Total Score: 24 025 9:26 AM EST documented as of this encounter Care Teams Cross Country/Track And Field Coach Relationship Specialty Start Date End Date Giana Isbell MD [address] [place] [address] PCP - General Internal Medicine 09/07/18 documented as of this encounter
--- OUTSIDE RECORDS SUMMARY | 2024-04-19 08:44 | XMS_ITS | Encounter Summary ---
Author Organization [employer] Address [address] [facility] 7t [place] [address] Care Team Providers Care Wire Coater Name Role Phone Giana Isbell MD Primary Care Provider [phone] Reason for Visit * Reason Onset Date Comments Medication Question 04/02/2024 Encounter Details Date Type Department Care Team ([facility] Contact Info) Description 04/02/2024 Telephone [facility] MEDICINE [address] [place] [address] Giana Isbell MD [address] [place] [address] Medication Question Social History Tobacco Use Types [...] Tc to pt via s id: [id number] to let them know per PCP Ms. Tory Cantrell can take the protonix at night, 3 hours after dinner with an empty stomach. No answer, lvm to return call and ask to speak to [facility] nurses. * Telephone Encounter - Annalee Polanco RN - 04/02/2024 2:19 PM EST TC to pt using city route driver services. Pt stated that they have stomach [...] Original medicationthat she had. Contact Pt at [phone] documented in this encounter Plan of Treatment Upcoming Encounters Date Type Department Care Team ([facility] st Contact Info) Description 06/26/2024 1:30 PM EDT Office Visit [facility] MED & PEDS [address] [place] [address] Giana Isbell MD [address] [place] [address] documented as of this encounter Visit Diagnoses Not on filedocumented in this encounter Additional Health Concerns Assessment Noted Time PHQ-9 Depression Total Score: 24 025 9:26 AM EST documented as of this encounter Care Teams Wire Coater Relationship Specialty Start Date End Date Giana Isbell MD [address] [place] [address] PCP - General Internal Medicine 09/07/18 documented as of this encounter
--- OUTSIDE RECORDS SUMMARY | 2024-04-19 08:44 | XMS_ITS | Encounter Summary ---
Author Organization [employer] Address [address] [facility] 7t [place] [address] Care Team Providers Care Rn Pediatric Icu Name Role Phone Giana Isbell MD Primary Care Provider [phone] Reason for Visit * Reason Onset Date Comments Hospital Follow-up 07/20/2022 Encounter Details Date Type Department Care Team ([facility] Contact Info) Description 07/20/2022 Telephone [facility] CH[facility] MED & PEDS [address] [place] [address] Giana Isbell MD [address] [place] [address] Hospital Follow-up Social History Tobacco Use Types [...] Upcoming Encounters Date Type Department Care Team ([facility] Contact Info) Description 06/26/2024 1:30 PM EDT Office Visit [facility] CHC MED & PEDS [address] [place] [address] Giana Isbell MD [address] [place] [address] documented as of this encounter Visit Diagnoses Not on filedocumented in this encounter Care Teams Rn Pediatric Icu Relationship Specialty Start Date End Date Giana Isbell MD [address] [place] [address] PCP - General Internal Medicine 09/07/18 documented as of this encounter
--- OUTSIDE RECORDS SUMMARY | 2024-04-19 08:44 | XMS_ITS | Encounter Summary ---
Author Organization [employer] Address [address] [facility] 7t [place] [address] Care Team Providers Care Store Product Demonstrator Name Role Phone Giana Isbell MD Primary Care Provider [phone] Reason for Visit * Reason Comments Hospital discharge follow-up Encounter Details Date Type Department Care Team ([facility] Contact Info) Description 03/28/2024 9:15 AM EST Office Visit [facility] CHC MED & PEDS [address] [place] [address] Giana Isbell MD 505 [place] [address] Acute cough (Primary Dx); Acquired hypothyroidism; SOB [...] breast Cervical cancer screening Pre-diabetes Fractured dental yazidism without loss of material Closed fracture of [...] 5 Elastic Bandages & Supports (Knee Support) [facility] H/o knee instability. 2 each 0 famotidine [...] Description 06/26/2024 1:30 PM EDT Office Visit [facility] MED & PEDS [address] [place] [address] Giana Isbell MD [address] [place] [address] Scheduled Orders Name Type Priority Associated Diagnoses [...] documented as of this encounter Care Teams Store Product Demonstrator Relationship Specialty Start Date End Date Giana Isbell MD [address] [place] [address] PCP - General Internal Medicine 09/07/18 documented as of this encounter
--- OUTSIDE RECORDS SUMMARY | 2024-04-19 08:44 | XMS_ITS | Data Portability ---
Author Organization [employer] Address [address] [place] [address] Care Team Providers Care Rn Resource Nurse Name Role Phone [facility] Referring Provider [facility] Referring Provider [phone] Assessment Encounter Date Assessment Date Assessment LastModified by Organization Details LastModified Time 10/02/2021 10/02/2021 I have reviewed and agree with the Assessment and Plan as documented by the Casting Finisher. I provided real -time medical direction via phone for this encounter, and was available for additional phone based assistance as needed. Patient given the opportunity to ask questions. [email or web address] Not available 10/02/2021 19:13:58 04/13/2023 04/13/2023 Ms. Tory Cantrell is a 57yoF who is seen today for further evaluation of right eye irritation. Ms. Cantrell reports three days of right eye itching and watering. She denies any fevers but reports that her left eye is starting to also itch and she has some minimal right ear discomfort. Otherwise has been feeling well. VSS. Casting Finisher site uploads picture of minimally injected and tearing right eye. Exam is c/w viral conjunctivitis . Recommended ongoing OTC therapies and cool compress/hand hygeine. Red flags to be reviewed by ecd. Not available 04/13/2023 10:45:55 Plan of Treatment [...] Not available Not available Not available 10/02/2021 52019 8001 SNOMED Not Available [employer] - production 03:43:36 890 hydrocodo ne Not available Not available Not available Not available 10/02/2021 5489 RxNorm Cynthia Maguire MD [address] [facility],[address], [place], [address] , [facility] [employer] 18:39:23 Medications Name Sig Start Date Stop [...] % 98 % 88 /min 18 /min 75312.8 8 g 97.6 [degF] 124 mm[Hg] 76 mm[Hg] Not Available [employer] tuul 4 10:39:50 Date Recorded Body temperature Heart [...] mm[Hg] 120 mm[Hg] 70 mm[Hg] Not Available [employer] tuul 2 17:37:54 Date Recorded Body weight Provider Name an d Address Organization Details Last Updated DateTime 10/02/2021 66516.01 g Shravan Mallory [address] [place] [address],[address], [place], [address], [facility] [employer] [facility] 10/02/2021 18:45:32 Social History None recorded. Functional Status None recorded. Mental Status None recorded. Family History Nothing Reported. Medical History No medical history recorded. Gynecological HistoryNo gynecological history recorded. Obstetrics History GPAL:G 0 P 0 0 0 0 Past Encounters Encounter ID Performer Location Encounter Start Date Encounter Closed Date Diagnosis/Indication Diagnosis SNOMED-CT Code Diagnosis ICD10 Code Diagnosis Note [id number] Cynthia Maguire MD [facility] - [address] [address] 10/02/2021 16:58:56 10/21/2021 11:37:50 Pain in right heel 0998370020 922292 M79.671 possible plantar fasciitis- vs talar tendonitis [...] continue Naprosyn in am Delilah Hope MD [facility] - [address] [id number] 04/13/2023 10:39:45 04/14/2023 09:54:22 Viral conjunctivitis 29382867 B30.9 Health Concerns Section Related Observation LastModified by Organization Detai ls LastModified Time None Recorded Concern Status LastModified by Organization Details LastModified Time None Recorded Advance Directives Directive None Recorded Payers Encounter Date Sequence Insurance Name Policy Number Policy Pastor Covered Member ID Pastor Member ID Guarantor Name 10/02/2021 1 [facility] [employer] - DOS PRIOR TO 2022 - DUAL ELIGIBLE (MEDICARE REPLACEMENT/ADV ANTAGE - HMO) Tory Cantrell [id number] Tory Cantrell 04/13/2023 1 [facility] [employer] - DOS ON OR AFTER 2022 - DUAL ELIGIBLE - HALF-WAY OPTIONS AND ONE CARE (MEDICARE REPLACEMENT/ADV ANTAGE - HMO) Tory Cantrell [id number] Tory Cantrell Notes Date Note Type Note [...] .................. .................. .................. .................. .................. .................. ............... Casting Finisher Note: Eval for right heel pain. pt stated she has had right heel pain for about 1 month, getting worse lately. Pt states she has appointment with ortho on Tuesday- pt has HX of tendon surgeries and chronic pain. pt states pain is bottom of heel, with discomfort generalized around ankle. no other new pain. pt denied fever/chills, denied sob/cp. [facility] recommended ice, elevate and we gave 15mg toradol for temp relief of pain. pt to follow up with pcp .................. .................. .................. .................. .................. .................. .................. ............... Disposition: FulfilledSEGMD: As above- hx chronic pain- On Naprosyn 500 mg q AM- denies hx CKD- not on anticoagulants- denies numbness/ tingling- worse w/ palpation/ ambulation/ WB Cynthia Maguire MD [address] [place] [address],[address], [place], [address], [employer] 10/03/2021 17:32:32 04/13/2023 text/html HPI: HX Depression,migrain es. Three day history of eye irritation redness with drainage. No fever.slight ear discomfort. .................. .................. .................. .................. .................. .................. .................. ............... [facility] Nurse Triage Notes (Yvette Guerra): Comments: HPI reviewed. No further information reviewed to process visit. .................. .................. .................. .................. .................. .................. .................. ............... Casting Finisher Note From Devan Brown: Pt co irrigation [...] Pt education on signs indicating the ER. Casting Finisher Allergies: Acetaminophen, Penicillin .................. .................. .................. .................. .................. .................. .................. ............... Disposition: Fulfilled Delilah Hope MD [address] [facility],[address], [place], [address], [employer] 04/13/2023 16:03:59 OBGyn Episode No OBEpisode recorded.
--- OUTSIDE RECORDS SUMMARY | 2024-04-19 08:44 | XMS_ITS | Encounter Summary ---
Author Organization [employer] Address [address] [facility] 7t [place] [address] Care Team Providers Care Supervisor Fishing Name Role Phone Giana Isbell MD Primary Care Provider [phone] Encounter Details Date Type Department Care Team (Latest Contact Info) Description 11/13/2020 Abstract [facility] CONVERSIONS Dental, Provider, DDS Social History [...] Description 06/26/2024 1:30 PM EDT Office Visit [facility] CHC MED & PEDS [address] [place] [address] Giana Isbell MD [address] [place] [address] documented as of this encounter Visit Diagnoses Not on filedocumented in this encounter Care Teams Supervisor Fishing Relationship Specialty Start Date End Date Giana Isbell MD [address] [place] [address] PCP - General Internal Medicine 09/07/18 documented as of this encounter
--- OUTSIDE RECORDS SUMMARY | 2024-04-19 08:44 | XMS_ITS | Encounter Summary ---
Author Organization [employer] Address [address] 7[address] [place] [address] Care Team Providers Care Dredge Operator Name Role Phone Giana Isbell MD Primary Care Provider [phone] Encounter Details Date Type Department Care Team ([facility] st Contact Info) Description 02/06/2024 Orders Only [facility] CHC MED & PEDS [address] [place] [address] Giana Isbell MD 505 [place] [address] Acquired hypothyroidism (Primary Dx) Social History Tobacco [...] Upcoming Encounters Date Type Department Care Team ([facility] st Contact Info) Description 06/26/2024 1:30 PM EDT Office Visit [facility] CHC MED & PEDS [address] [place] [address] Giana Isbell MD [address] [place], [place] [phone] Scheduled Orders Name Type Priority Associated Diagnoses [...] EST Narrative 02/10/2024 3:39 PM EST ? [facility] ?[address] ?[place] [address] ? Magnetic Resonance Report ? Signed with Addenda ? Patient: Tory Bush ?MR#: [id number] ?? [id number] ? : 1965 ?Acct:[id number] ? Age/Sex: 58 / F ?ADM Date: 12/30/24 ? Loc: HO.MRI ? Attending Dr: Pardeep Marcos MD ? Ordering Physician: Pardeep Marcos MD ?? Date of Service: 02/06/24 ?? Procedure(s): MR breast BI wo/w con ?? Accession Number(s): [id number] ? cc: Giana Isbell MD; Pardeep Marcos [...] in OV> ? 02/10/24 1536 ? DD/ ? TD/TT: 02/06/24 1016 ? Slip Bridge Operator: ? Procedure Note Donmichelle, Image - 02/13/[address] [address] Magnetic Resonance Report Signed with Fani Patient: Pat Bush#: [id number] : 1965Acct:[id number] Age/Sex: 58 / FADM Date: 02/06/24 Loc: HO.MRI Attending Dr: Pardeep Marcos MD Ordering Physician: Pardeep Marcos MD Date of Service: 02/06/24 Procedure(s): MR breast BI wo/w con Accession Number(s): [id number] cc: Giana Isbell MD; Pardeep Marcos MD [...] 02/10/24 1536 DD/ 0933 TD/TT: 02/06/24 1016 Slip Bridge Operator: [facility] External Provider IMG MRI PROCEDURES Edited Result - Final documented in this encounter Visit Diagnoses Diagnosis Acquired hypothyroidism- Primary Unspecified hypothyroidism documented in this encounter Additional Health Concerns Assessment Noted Time PHQ-9 Depression Total Score: 7 07/30/19 23 10:13 AM EDT documented as of this encounter Care Teams Dredge Operator Relationship Specialty Start Date End Date Giana Isbell MD [address] [place] [address] PCP - General Internal Medicine 09/07/18 documented as of this encounter
--- OUTSIDE RECORDS SUMMARY | 2024-04-19 08:44 | XMS_ITS | Encounter Summary ---
Author Organization [employer] Address [address] [facility] 7t [place] [address] Care Team Providers Care Fusing Furnace Loader Name Role Phone Giana Isbell MD Primary Care Provider [phone] Encounter Details Date Type Department Care Team (Late st Contact Info) Description 04/12/2024 Orders Only [facility] MEDICINE [address] [place] [address] Giana Isbell MD [address] [place] [address] Bronchopneumonia (Primary Dx) Social History Tobacco Use Types [...] Upcoming Encounters Date Type Department Care Team ([facility] st Contact Info) Description 06/26/2024 1:30 PM EDT Office Visit [facility] MED & PEDS [address] [place] [address] Giana Isbell MD [address] [place] [address] Scheduled Orders Name Type Priority Associated Diagnoses Orde r Schedule XR Chest 2 Views Imaging Routine Bronchopneumonia Expected: 04/12/2024, Expires: 04/12/2025 documented as of this encounter Visit Diagnoses Diagnosis Bronchopneumonia- Primary Bronchopneumonia, organism unspecified documented in this encounter Additional Health Concerns Assessment Noted Time PHQ-9 Depression Total Score: 24 025 9:26 AM EST documented as of this encounter Care Teams Fusing Furnace Loader Relationship Specialty Start Date End Date Giana Isbell MD [address] [place] [address] PCP - General Internal Medicine 09/07/18 documented as of this encounter
--- OUTSIDE RECORDS SUMMARY | 2024-04-19 08:45 | XMS_ITS | Encounter Summary ---
Author Organization [employer] Address [address] [facility] 7t [place] [address] Care Team Providers Care Freight Car Loader Name Role Phone Giana Isbell MD Primary Care Provider [phone] Encounter Details Date Type Department Care Team (Latest Contact Info) Description 12/04/2021 Abstract [facility] CONVERSIONS Dental, Provider, DDS Social History [...] Description 06/26/2024 1:30 PM EDT Office Visit [facility] CHC MED & PEDS [address] [place] [address] Giana Isbell MD 505 [place] [address] documented as of this encounter Visit Diagnoses Not on filedocumented in this encounter Care Teams Freight Car Loader Relationship Specialty Start Date End Date Giana Isbell MD [address] [place] [address] PCP - General Internal Medicine 09/07/18 documented as of this encounter
--- OUTSIDE RECORDS SUMMARY | 2024-04-19 08:45 | XMS_ITS | Encounter Summary ---
Author Organization [employer] Address [address] [place] [address] [address] [place] [address] Care Team Providers Care Business Systems Analyst Name Role Phone Giana Isbell MD Primary Care Provider Reason for Referral * Imaging (Urgent) - Closed Specialty Diagnoses / Procedures Referred By Ervin chávez Referred To Contact Radiology Diagnoses Elevated alkaline phosphatase level Procedures US Abdomen Complete Giana Isbell MD [address] [place] [address] Phone: tel: fax: [address] Phone: tel: fax: Referral ID Status Reason Start Date Expiration Date Visits Re quested Visits Authorized [id number] Closed 02/17/2023 02/17/2024 1 1 Encounter Details Date Type Department Care Team (Late st Contact Info) Description 02/17/2023 Orders Only [facility] CHC MED & PEDS [address] [place], [place] [phone] Giana Isbell MD [address] [place], [place] [phone] Elevated alkaline phosphatase level (Primary Dx); Left [...] Encounters Date Type Department Care Team ([facility] st Contact Info) Description 06/26/2024 1:30 PM EDT Office Visit [facility] MED & PEDS [address] [place] [address] Giana Isbell MD [address] [place] [address] documented as of this encounter Procedures Procedure Name Priority Date/Time Associated Diagnosis Comments US ABDOMEN COMPLETE Urgent 03/21/2023 9 :29 AM EST Elevated alkaline phosphatase level documented in this encounter Results * US Abdomen Complete (03/21/2023 9:29 AM EST) Anatomical Region Laterality Modality Abdomen Ultrasound 03/21/2023 9:29 AM EST Narrative 03/22/2023 9:16 AM EST ? [place] [facility] ?[address] ?[place] [address] ? Ultrasound Report ? Signed ? Patient: Tamia Sánchez,Tory ?MR#: [id number] ?? [id number] ? : 1965 ?Acct:[id number] ? Age/Sex: 57 / F ?ADM Date: 03/21/23 ? Loc: HO.US ? Attending Dr: Giana Isbell MD ? Ordering Physician: Giana Isbell MD ?? Date of Service: 03/21/23 ?? Procedure(s): US abdomen complete ?? Accession Number(s): [id number] ? cc: Giana Isbell MD ? EXAMINATION: [...] 03/22/239[address] ? DD/ 0929 ? TD/TT: ? Global Category Manager: ? Procedure Note Trish, Image - 03/22/2023 [place] [address] Ultrasound Report Signed Patient: Pat Bush#: [id number] : 1965Acct:[id number] Age/Sex: 57 / FADM Date: 03/21/23 Loc: HO.US Attending Dr: Giana Isbell MD Ordering Physician: Giana Isbell MD Date of Service: 03/21/23 Procedure(s): US abdomen complete Accession Number(s): [id number] cc: Giana Isbell MD EXAMINATION: US ABDOMEN [...] MD in OV> 03/22/23911 DD/ 8 TD/TT: Global Category Manager: us Giana Isbell MD IMG US PROCEDURES Final Res ult documented in this encounter Visit Diagnoses Diagnosis Elevated alkaline phosphatase level- Primary Left upper quadrant abdominal pain documented in this encounter Additional Health Concerns Assessment Noted Time PHQ-9 Depression Total Score: 7 07/30/19 23 10:13 AM EDT documented as of this encounter Care Teams Business Systems Analyst Relationship Specialty Start Date End Date Giana Isbell MD [address] [place] [address] PCP - General Internal Medicine 09/07/18 documented as of this encounter
--- OUTSIDE RECORDS SUMMARY | 2024-04-19 08:45 | XMS_ITS | Encounter Summary ---
Author Organization [employer] Address [address] [facility] 7t [place] [address] Care Team Providers Care Recreation Engineer Name Role Phone Giana Isbell MD Primary Care Provider [phone] Reason for Visit * Reason Onset Date Comments Nurse Triage 08/02/2023 Encounter Details Date Type Department Care Team ([facility] Contact Info) Description 08/02/2023 Telephone [facility] CHC MED & PEDS [address] [place] [address] Giana Isbell MD [address] [place] [address] Nurse Triage Social History Tobacco Use Types [...] 08/02/2023 10:38 AM EDT Triage call with [employer] [id number] Pt reports a small lump in the corner of lower left eye lid. Pt reports it is red, itchy, painful. This doesn't effect vision and Pt has never had this before. Pt has had this for more than a week and it is increasing in size. No available apts ion [facility] . Pt is advised to come to [facility] to be seen by provider and Pt [...] Description 06/26/2024 1:30 PM EDT Office Visit [facility] CHC MED & PEDS [address] [place] [address] Giana Isbell MD [address] [place] [address] documented as of this encounter Visit Diagnoses Not on filedocumented in this encounter Additional Health Concerns Assessment Noted Time PHQ-9 Depression Total Score: 7 07/30/19 23 10:13 AM EDT documented as of this encounter Care Teams Recreation Engineer Relationship Specialty Start Date End Date Giana Isbell MD [address] [place] [address] PCP - General Internal Medicine 09/07/18 documented as of this encounter
--- OUTSIDE RECORDS SUMMARY | 2024-04-19 08:45 | XMS_ITS | Encounter Summary ---
Author Organization [employer] Address [address] [facility] 7t [place] [address] Care Team Providers Care Skid Wrapper Name Role Phone Giana Isbell MD Primary Care Provider [phone] Reason for Visit * Reason Comments Transition Of Care (Tcm) HDF scheduled a nd SDOH screening negative and Tobacco screening negative Encounter Details Date Type Department Care Team (Late st Contact Info) Description 03/20/2024 Patient Outreach [facility] [address] [place] [address] Giana Isbell MD [address] [place] [address] Transition Of Care (Tcm) (HDF scheduled and [...] 03/20/24 0836 Hospital Discharges and [facility] Type of Visit Hospital Admission Date of Admission/Visit 03/13/24 Date of Discharge 03/16/24 [facility] Diagnosis Pneumonia Disposition Discharged Home Follow-Up [...] to scheduling. Patient also notified that a [facility] pharmac[facility] will be reaching out [...] Wednesdays, and Walk-In Urgent Care Located in [facility]. Patient provided with after-hours line for [facility], , which offer night time triage ser vice and option to transfer to orthodontic laboratory technician provider if needed. CC scanned discharge summary into patient's chart. Biggest concern for appointment at this time is no concerns. Appropriate screenings completed in anticipation of appointment. documented in this encounter Plan of Treatment Upcoming Encounters Date Type Department Care Team ([facility] st Contact Info) Description 06/26/2024 1:30 PM EDT Office Visit [facility] & PEDS [address] [place] [address] Giana Isbell MD [address] [place] [address] documented as of this encounter Visit Diagnoses Not on filedocumented in this encounter Additional Health Concerns Assessment Noted Time PHQ-9 Depression Total Score: 7 07/30/19 23 10:13 AM EDT documented as of this encounter Care Teams Skid Wrapper Relationship Specialty Start Date End Date Giana Isbell MD [address] [place] [address] PCP - General Internal Medicine 09/07/18 documented as of this encounter
--- OUTSIDE RECORDS SUMMARY | 2024-04-19 08:45 | XMS_ITS | Encounter Summary ---
Author Organization [employer] Address [address] [facility] 7t [place] [address] Care Team Providers Care Ship Propeller Finisher Name Role Phone Giana Isbell MD Primary Care Provider [phone] Encounter Details Date Type Department Care Team ([facility] st Contact Info) Description 05/06/2023 Orders Only [facility] [address] [place] [address] Giana Isbell MD [address] [place] [address] Acquired hypothyroidism (Primary Dx) Social History Tobacco [...] Description 06/26/2024 1:30 PM EDT Office Visit [facility] MED [facility] PEDS [address] [place] [address] Giana Isbell MD [address] [place], [place] [phone] documented as of this encounter Procedures Procedure Name Priority Date/Time Associated Diagnosis Comments TSH W/REFLEX TO FT4 Routine 02/06/2024 10:45 AM EST Acquired hypothyroidism documented in this encounter Results * (ABNORMAL) TSH W/Reflex to FT4 (02/06/2024 10:45 AM EST) TSH reflex Free T4 10.06(H) 0.32 - 4.0 uIU/mL [facility] Blood Venous blood specimen / Unknown 02/06/2024 10:45 AM EST 02/06/2024 10:45 AM EST Giana Isbell MD LAB BLOOD ORDERABLES Final Result [facility] [address] [place] [address] [phone] documented in this encounter Visit Diagnoses Diagnosis Acquired hypothyroidism- Primary Unspecified hypothyroidism documented in this encounter Additional Health Concerns Assessment Noted Time PHQ-9 Depression Total Score: 7 07/30/19 23 10:13 AM EDT documented as of this encounter Care Teams Ship Propeller Finisher Relationship Specialty Start Date End Date Giana Isbell MD [address] [place] [address] PCP - General Internal Medicine 09/07/18 documented as of this encounter
--- OUTSIDE RECORDS SUMMARY | 2024-04-19 08:45 | XMS_ITS | Encounter Summary ---
Author Organization [employer] Address [address] [facility] [address] [place] [address] Care Team Providers Care Staff Nuclear Medicine Technologist Name Role Phone Giana Isbell MD Primary Care Provider [phone] Reason for Referral * Consultation (Routine) - Authorized Specialty Diagnoses / Procedures Referred By Contharman t Referred To Contact Cardiology Diagnoses SOB (shortness of breath) Giana Isbell MD [address] [place] [address] Phone: tel: fax: Kavon Berumen MD [address] [facility] Floor 1 [place] [address] Phone: tel: fax: Referral ID Status Reason Start Date Expiration Date Visits Requested Visits Authorized [id number] Authorized Specialty Services Required 12/18/2024 1 1 Encounter Details Date Type Department Care Team (Late st Contact Info) Description 12/19/2023 Orders Only [facility] MED & PEDS [address] [place] [address] Giana Isbell MD [address] [place] [address] SOB (shortness of breath) (Primary Dx) Social [...] [facility] [address] [place] [address] Giana Isbell MD [address] [place] [address] Scheduled Referrals Name Type Priority Associated Diagnoses [...] EST Narrative 01/18/2024 9:40 AM EST ? [facility] ? [address] ?[place] [address] ? Ultrasound Report ? Signed with Addenda ? Patient: Tamia SánchezTory ?MR#: [id number] ?? [id number] ? : 1965 ?Acct:[id number] ? Age/Sex: 58 / F ?ADM Date: 01/18/24 ? Loc: HO.MAMMO ? Attending Dr: Pardeep Marcos MD ? Ordering Physician: Pardeep Marcos MD ?? Date of Service: 01/18/24 ?? Procedure(s): US breast ndl core biopsy RT ?? Accession Number(s): [id number] ? cc: Giana Isbell MD; Pardeep Marcos [...] ?? RP ? Addendum Dictated By: ?Carissa Grahamninfa, DO ? Addendum Signed By: ? <Electronically [...] DD/ 0800 ? TD/TT: 01/18/24 0835 ? Car Whacker: ? Procedure Note Barbter, Image - 01/25/2024 [facility] [address] [place] [address] [place] [address] Ultrasound Report Signed with Fani Patient: Pat Bush#: [id number] : 1965Acct:[id number] Age/Sex: 58 / FADM Date: 01/18/24 Loc: ADELITA Attending Dr: Pardeep Marcos MD Ordering Physician: Pardeep Marcos MD Date of Service: 01/18/24 Procedure(s): US breast ndl core biopsy RT Accession Number(s): [id number] cc: Giana Isbell MD; Pardeep Marcos MD [...] Carissa Raza DO in OV> 01/18/2437 DD/ 08 TD/TT: 01/18/24 0835 Car Whacker: [facility] External Provider IMG US PROCEDURES Edited Result - Final * BI Mammogram Diagnostic Tomosynthesis Right (01/18/2024 8:00 AM EST) Anatomical Region Laterality Modality Breast Right Mammography 01/18/2024 8:00 AM EST Narrative 01/18/2024 9:40 AM EST ? [facility] [employer] ? [address] ?[place] [address] ? Mammography Report ? Signed with Addenda ? Patient: Tory Bush ?MR#: [id number] ?? [id number] ? : 1965 ?Acct:[id number] ? Age/Sex: 58 / F ?ADM Date: 12/11/24 ? Loc: HO.MAMMO ? Attending Dr: Pardeep Marcos MD ? Ordering Physician: Pardeep Marcos MD ?Results: ? Date of Service: 01/18/24 ?Follow Up: ? Procedure(s): MM tomosynthesis diagnostic RT ?? Accession Number(s): [id number] ? cc: Giana Isbell MD; Pardeep Marcos [...] DD/ 0800 ? TD/TT: 01/18/24 0835 ? Car Whacker: ? Procedure Note Donhernanter, Image - 01/25/2024 [facility] [address] [place] [address] Mammography Report Signed with Fani Patient: Pat Bush#: [id number] : 1965Acct:[id number] Age/Sex: 58 / FADM Date: 01/18/24 Loc: ADELITA Attending Dr: Pardeep Marcos MD Ordering Physician: Pardeep Marcosesults: Date of Service: 01/18/24Follow Up: Procedure(s): MM tomosynthesis diagnostic RT Accession Number(s): [id number] cc: Giana Isbell MD; Pardeep Marcos MD [...] OV> 01/18/2437 DD/ 0800 TD/TT: 01/18/24 0835 Car Whacker: [facility] External Provider IMG BI PROCEDURES Edited Result - Final documented in this encounter Visit Diagnoses Diagnosis SOB (shortness of breath)- Primary Shortness of breath documented in this encounter Additional Health Concerns Assessment Noted Time PHQ-9 Depression Total Score: 7 07/30/19 23 10:13 AM EDT documented as of this encounter Care Teams Staff Nuclear Medicine Technologist Relationship Specialty Start Date End Date Giana Isbell MD [address] [place] [address] PCP - General Internal Medicine 09/07/18 documented as of this encounter
--- OUTSIDE RECORDS SUMMARY | 2024-04-19 08:45 | XMS_ITS | Encounter Summary ---
Author Organization [employer] Address [address] [place] [address] 7 [place] [address] Care Team Providers Care Mastic Floor Layer Name Role Phone Giana Isbell MD Primary Care Provider [phone] Reason for Visit * Reason Comments Med Refill Encounter Details Date Type Department Care Team ([facility] Contact Info) Description 03/31/2022 Refill [facility] [address] [place] [address] Giana Isbell MD [address] [place] [address] Acquired hypothyroidism (Primary Dx); Other constipation; Depressive [...] Upcoming Encounters Date Type Department Care Team ([facility] Contact Info) Description 06/26/2024 1:30 PM EDT Office Visit [facility] [address] [place] [address] Giana Isbell MD [address] [place] [address] documented as of this encounter Visit Diagnoses Diagnosis Acquired hypothyroidism- Primary Unspecified hypothyroidism Other constipation Depressive disorder Depressive disorder, not elsewhere classified Seasonal allergies Allergic rhinitis, cause unspecified Migraine without aura and without status migrainosus, not intractable documented in this encounter Care Teams Mastic Floor Layer Relationship Specialty Start Date End Date Giana Isbell MD [address] [place] [address] PCP - General Internal Medicine 09/07/18 documented as of this encounter
--- OUTSIDE RECORDS SUMMARY | 2024-04-19 08:45 | XMS_ITS | Encounter Summary ---
Author Organization [employer] Address [address] 7t [place] [address] Care Team Providers Care Processing Technologist Name Role Phone Giana Isbell MD Primary Care Provider [phone] Encounter Details Date Type Department Care Team ([facility] st Contact Info) Description 04/05/2023 Telephone [facility] MED[facility]INE [address] [place] [address] Giana Isbell MD [address] [place] [address] Social History Tobacco Use Types Packs/Day Years [...] Description 06/26/2024 1:30 PM EDT Office Visit [facility] MED [facility] PEDS [address] [place] [address] Giana Isbell MD [address] [place] [address] documented as of this encounter Visit Diagnoses Not on filedocumented in this encounter Additional Health Concerns Assessment Noted Time PHQ-9 Depression Total Score: 7 07/30/19 23 10:13 AM EDT documented as of this encounter Care Teams Processing Technologist Relationship Specialty Start Date End Date Giana Isbell MD [address] [place] [address] PCP - General Internal Medicine 09/07/18 documented as of this encounter
--- OUTSIDE RECORDS SUMMARY | 2024-04-19 08:45 | XMS_ITS | Encounter Summary ---
Author Organization [employer] Address [address] [facility] 7t [place] [address] Care Team Providers Care Insurance Clerk Name Role Phone Giana Isbell MD Primary Care Provider [phone] Reason for Visit * Reason Onset Date Comments Nurse Triage 03/01/2023 Encounter Details Date Type Department Care Team ([facility] Contact Info) Description 03/01/2023 Telephone [facility] MEDICINE [address] [place] [address] Giana Isbell MD [address] [place] [address] Nurse Triage Social History Tobacco Use Types [...] 03/01/2023 12:46 PM EST Triage call with [employer] Developer Programmer ID [id number] Pt reports having surgery and not having any pain medication. Pt had a partial left thyroide[place] 02/28/23 [place] [facility] and oxycodone 5mg po was ordered . Prescription was sent to [facility] pharmacy. Pt was not aware of [...] Description 06/26/2024 1:30 PM EDT Office Visit [facility] MED & PEDS [address] [place], [place] [phone] Giana Isbell MD [address] [place] [address] documented as of this encounter Visit Diagnoses Not on filedocumented in this encounter Additional Health Concerns Assessment Noted Time PHQ-9 Depression Total Score: 7 07/30/19 23 10:13 AM EDT documented as of this encounter Care Teams Insurance Clerk Relationship Specialty Start Date End Date Giana Isbell MD [address] [place] [address] PCP - General Internal Medicine 09/07/18 documented as of this encounter
--- OUTSIDE RECORDS SUMMARY | 2024-04-19 08:45 | XMS_ITS | Encounter Summary ---
Author Organization [employer] Address [address] [place] [address] 7t [place] [address] Care Team Providers Care Detacker Name Role Phone Giana Isbell MD Primary Care Provider [phone] Encounter Details Date Type Department Care Team (Latest Contact Info) Description 02/15/2018 Abstract [facility] Dental, Provider, DDS Social History Tobacco [...] Description 06/26/2024 1:30 PM EDT Office Visit [facility] [address] [place] [address] Giana Isbell MD [address] [place] [address] documented as of this encounter Visit Diagnoses Not on filedocumented in this encounter Care Teams Detacker Relationship Specialty Start Date End Date Giana Isbell MD [address] [place] [address] PCP - General Internal Medicine 09/07/18 documented as of this encounter
--- OUTSIDE RECORDS SUMMARY | 2024-04-19 08:45 | XMS_ITS | Encounter Summary ---
Author Organization [employer] Address [address] [place] [address] 7t [place] [address] Care Team Providers Care Assistant Floor Covering Printer Name Role Phone Giana Isbell MD Primary Care Provider [phone] Encounter Details Date Type Department Care Team (Latest Contact Info) Description 02/16/2019 Abstract [facility] Dental, Provider, DDS Social History [...] Description 06/26/2024 1:30 PM EDT Office Visit [facility] MED & PEDS [address] [place] [address] Giana Isbell MD [address] [place] [address] documented as of this encounter Visit Diagnoses Not on filedocumented in this encounter Care Teams Assistant Floor Covering Printer Relationship Specialty Start Date End Date Giana Isbell MD [address] [place] [address] PCP - General Internal Medicine 09/07/18 documented as of this encounter
--- OUTSIDE RECORDS SUMMARY | 2024-04-19 08:46 | XMS_ITS | Encounter Summary ---
Author Organization [employer] Address [address] [facility] 7t [place] [address] Care Team Providers Care Secretary Book Keeper Name Role Phone Giana Isbell MD Primary Care Provider [phone] Encounter Details Date Type Department Care Team ([facility] st Contact Info) Description 04/17/2024 2:30 PM EDT Office Visit [facility] [address] [place], [place] [phone] Dee Reynolds, OD [address] [place] [address] Dry eyes, bilateral (Primary Dx); Regular astigmatism, bilateral Social History Tobacco Use Types Packs/Day Years [...] AM EDT documented as of this encounter Progress Notes * Dee Reynolds, OD - 04/17/2024 2:30 PM EDT Eye Care Progress Note Patient ID: Tory Cantrell is a 58 y.o. female. HPI Patient complains of excessive tearing both eyes (OU). Patient also endorses occasional burning both eyes (OU). Patient does not use any drops. Patient reports blurry vision at distance both eyes (OU). Patient used to have distance glasses that she lost awhile ago. Last edited by Dee Reynolds, OD on 04/17/2024 4:37 PM. Current Outpatient Medications Medication Sig Dispense Refill albuterol (2.5 MG/3ML) 0.083% nebulizer solution Take 3 mL (2.5 mg) by nebulization every 6 (six) hours if needed for wheezing. 75 mL 11 Albuterol-Budesonide (Airsupra) 90-80 MCG/ACT aerosol Inhale 3 Inhalations Once per day. calcium carbonate (Os-Norberto) 1250 (500 Ca) MG chewable tablet Chew 1 tablet if needed each day for heartburn. capsaicin (Zostrix) 0.025 % cream APPLY TO THE AFFECTED AREA(S) 1 GRAM TWICE DAILY 60 g 3 chlorhexidine (Peridex) [...] NIGHT BEFORE CHEMOTHERAPY AND 2 DAYS AFTER dextran 70-hypromellose (artificial tears) 0.1-0.3 % ophthalmic solution Administer 1 drop into both eyes if needed in the morning, at noon, and at bedtime for dry eyes. 30 mL 3 Diclofenac Sodium 1 % gel Apply 4 g topically if needed in the morning, at noon, in the evening, and at bedtime. Left hip docusate sodium (Colace) 100 MG capsule TAKE 1 CAPSULE BY MOUTH AT BEDTIME NEEDED 30 capsule 5 Elastic Bandages & Supports (Knee Support) [facility] H/o knee instability. 2 each 0 famotidine [...] and at bedtime (itching). 10 mL 0 levothyroxine (Synthroid) 125 MCG tablet Take 1 tablet (125 mcg) by mouth before breakfast. 30 tablet 11 nortriptyline (Pamelor) 50 MG capsule Take 100 [...] 60 tablet 5 No current facility-administered medications for this visit. Past Medical History: Diagnosis Date Acquired hypothyroidism Bilateral carpal tunnel syndrome Generalized anxiety disorder Major depression Proptosis Past Surgical History: Procedure Laterality Date APPENDECTOMY BI MR GUIDED BREAST BIOPSY LEFT Left 03/02/2024 BI MR GUIDED BREAST BIOPSY LEFT LATERAL COLLATERAL LIGAMENT REPAIR, ELBOW Right POLYPECTOMY cervical polyp THYROIDECTOMY, PARTIAL Right Carisa's Thyroiditis TUBAL LIGATION Bilateral WRIST SURGERY Left Carpel tunnel release Family History Problem Relation Name Age of Onset Breast cancer Mother Ovarian cancer Sister 30 Diabetes Sister Diabetic retinopathy Coronary artery disease Maternal Grandmother Tobacco Use: Low Risk (04/17/2024) Tobacco Smoking Tobacco Use: Never Smokeless Tobacco Use: Never Passive Exposure: Never Allergies Allergen Reactions Acetaminophen Unknown Hydrocodone Other and Hives Other reaction(s): Altered Heart Rate Outside Source Comment: Other reaction(s): Altered Heart Rate Hydrocodone-Acetaminophen Penicillin G Rash Penicillins Rash, Unknown and Hives ROS Positive for: Eyes Negative for: Constitutional, Gastrointestinal, Neurological, Skin, Genitourinary, Musculoskeletal,HENT, Endocrine, Cardiovascular, Respiratory, Psychiatric, Allergic/Imm, Heme/Lymph Last edited by Dee Reynolds OD on 04/17/2024 2:36 PM. Base Eye Exam Visual Acuity (Snellen - Linear) Right Left Both Dist sc 20/40 20/50 Near sc 20/25 Tonometry (iCare , 2:43 PM) Right Left Pressure 10 10 Pupils Pupils APD Right PERRL None Left PERRL None Visual Sellers (Counting fingers) Left Right Full Full Extraocular Movement Right Left Full Full Neuro/Psych Oriented x3: Yes Mood/Affect: Normal Dilation Both eyes: 1.0% Mydriacyl @ 2:43 PM Slit Lamp and Fundus Exam External Exam Right Left External Normal Normal Slit Lamp Exam Right Left Lids/Lashes MGD with lid margin scalloping, lower lid laxity, patent punctum MGD with lid margin scalloping, lower lid laxity, patent punctum Conjunctiva/Sclera White and quiet White and quiet Cornea TBUT: 2 seconds TBUT: 2 seconds Anterior Chamber Deep and quiet, angles open Deep and quiet, angles open Iris Flat, round Flat, round Lens Clear Clear Fundus Exam Right Left Vitreous Clear Clear Disc [place] and healthy [place] and healthy C/D Ratio Vertical 0.35 0.35 C/D Ratio Horizontal 0.35 0.35 Macula Flat, even pigmentation Flat, even pigmentation Vessels AV 2/3, normal course and caliber AV 2/3, normal course and caliber Periphery No holes/tears/detachments 360 No holes/tears/detachments 360 Refraction Manifest Refraction (Subjective) Sphere Cylinder [place] Dist [place] Add Right +0.00 -1.75 100 20/20 +2.25 Left +0.00 -1.50 090 20/20 +2.25 Final Rx Sphere Cylinder [place] Add Right Eden -1.75 100 +2.25 Left [place] -1.50 090 +2.25 Expiration Date: 04/17/2025 Assessment and Plan Diagnoses and all orders for this visit: 1. Dry eyes, bilateral - Discussed mechanism of tearing as a symptom of dry eye - Recommended use of artificial tears 2-4x/day both eyes (OU), Rx sent to pharmacy - dextran 70-hypromellose (artificial tears) 0.1-0.3 % ophthalmic solution; Administer 1 drop into both eyes if needed in the morning, at noon, and at bedtime for dry eyes. 2. Regular astigmatism, bilateral - Dispensed updated spec Rx RTC in 1 year for comprehensive eye exam or soon as needed Dee Reynolds, OD 04/17/2024, 4:37 PM Molded Grid And Parts Inspector Source: __ None _x_ Bilingual Staff __ Qualified Staff Inventory And Pricing Associate __ Telephone Molded Grid And Parts Inspector; ID# __ Molded Grid And Parts Inspector brought by patient (family member, friend, ESCROW MANAGER, etc) __ In person dumping machine operator __ Ipad Molded Grid And Parts Inspector; ID#: Language Spoken During Exam: Pashto documented in this encounter Plan of Treatment Upcoming Encounters Date Type Department Care Team ([facility] st Contact Info) Description 06/26/2024 1:30 PM EDT Office Visit [facility] MED & PEDS [address] [place], [place] [phone] Giana Isbell MD [address] [place], [place] [phone] documented as of this encounter Visit Diagnoses Diagnosis Dry eyes, bilateral- Primary Regular astigmatism, bilateral documented in this encounter Additional Health Concerns Assessment Noted Time PHQ-9 Depression Total Score: 24 025 9:26 AM EST documented as of this encounter Care Teams Secretary Book Keeper Relationship Specialty Start Date End Date Giana Isbell MD [address] [place] [address] PCP - General Internal Medicine 09/07/18 documented as of this encounter
--- OUTSIDE RECORDS SUMMARY | 2024-04-19 08:46 | XMS_ITS | Encounter Summary ---
Author Organization [employer] Address [address] [facility] 7t [place] [address] Care Team Providers Care Preparation Room Manager Name Role Phone Giana Isbell MD Primary Care Provider [phone] Encounter Details Date Type Department Care Team ([facility] Contact Info) Description 02/17/2024 Orders Only [facility] [address] [place] [address] Provider, MD Kathi Social History Tobacco Use [...] Description 06/26/2024 1:30 PM EDT Office Visit [facility] MED & PEDS [address] [place] [address] Giana Isbell MD [address] [place] [address] documented as of this encounter Procedures Procedure [...] documented as of this encounter Care Teams Preparation Room Manager Relationship Specialty Start Date End Date Giana Isbell MD [address] [place] [address] PCP - General Internal Medicine 09/07/18 documented as of this encounter
--- OUTSIDE RECORDS SUMMARY | 2024-04-19 08:46 | XMS_ITS | Encounter Summary ---
Author Organization [employer] Address [address] [facility] [facility] [address] [facility] [address] 7t [place] [address] Care Team Providers Care Environmental Communications Specialist Name Role Phone Giana Isbell MD Primary Care Provider [phone] Encounter Details Date Type Department Care Team (Latest Contact Info) Description 04/17/2024 Travel Social History Tobacco Use Types Packs/Day [...] Description 06/26/2024 1:30 PM EDT Office Visit [facility] MED & PEDS [address] [place] [address] Giana Isbell MD 505 [place] [address] documented as of this encounter Visit Diagnoses Not on filedocumented in this encounter Additional Health Concerns Assessment Noted Time PHQ-9 Depression Total Score: 24 025 9:26 AM EST documented as of this encounter Care Teams Environmental Communications Specialist Relationship Specialty Start Date End Date Giana Isbell MD [address] [place] [address] PCP - General Internal Medicine 09/07/18 documented as of this encounter
--- OUTSIDE RECORDS SUMMARY | 2024-04-19 08:46 | XMS_ITS | Clinical Summary ---
Author Organization [employer] Address [address] [facility] [address] [place] [address] Care Team Providers Care Nuclear Weapons Custodian Name Role Phone Giana Isbell MD Primary [...] at bedtime (itching). 10 mL 024 Active pantoprazole (ProtoNix) 20 MG EC tablet TAKE 1 TABLET BY MOUTH EVERY MORNING NEEDED FOR HEARTBURN Active fluticasone (Flonase) 50 MCG/ACT nasal sprayIndications: Seasonal allergies INSTILL 1-2 SPRAYS IN EACH NOSTRIL ONCE DAILY NEEDED 16 g 5 024 Active D3 Super Strength 50 MCG (1999 UT) capsuleIndication s:Vitamin D deficiency TAKE 1 CAPSULE BY MOUTH EVERY DAY 30 capsule 5 Active Elastic Bandages & Supports (Knee Support) miscIndications:L eft hip pain H/o knee instability. 2 each Active chlorhexidine (Peridex) 0.12 % solution Swish 15 mL morning and night for 1 minute. Spit, do not swallow. Do not eat or drink for 30 minutes following use. 473 mL Active dexAMETHasone (Decadron) 2 MG tablet TAKE [...] by mouth before breakfast. 30 tablet 11 025 2025 Active albuterol (2.5 MG/3ML) 0.083% nebulizer solutionIndicatio ns:SOB (shortness of breath),Bronchopn eumonia Take 3 mL (2.5 mg) by nebulization every 6 (six) hours if needed for wheezing. 75 mL 025 2025 Active capsaicin (Zostrix) 0.025 % creamIndications: Chronic pain of left knee APPLY TO THE AFFECTED AREA(S) 1 GRAM TWICE DAILY 60 g 3 Active hydrocortisone 0.5 % cream APPLY 1 GRAM TOPICALLY TO AFFECTED AREA(S) TWICE DAILY DIRECTED 56.8 g 1 Active venlafaxine (Effexor) 37.5 MG tabletIndications :Depressive disorder TAKE 1 TABLET BY MOUTH TWICE DAILY 60 tablet 5 Active dextran 70-hypromellose (artificial tears) 0.1-0.3 % ophthalmic solutionIndicatio ns:Dry eyes, bilateral Administer 1 drop into both eyes if needed in the morning, at noon, and at bedtime for dry eyes. 30 mL 025 2025 Active lidocaine (Lidoderm) 5 % patchIndications: [...] cleanup (will not trigger notification to Pharmacy)) venlafaxine (Effexor) 37.5 MG tabletIndications :Depressive disorder TAKE 1 TABLET BY MOUTH TWICE DAILY 60 tablet 5 024 2024 Discontinued tiZANidine (Zanaflex) 2 MG tabletIndications :Muscle tension pain Take 1-2 tablets (2-4 mg) by mouth if needed at bedtime for muscle spasms. 30 tablet 024 2024 Discontinued(M ed list cleanup (will not trigger notification to Pharmacy)) capsaicin (Zostrix) 0.025 % creamIndications: Chronic pain of left knee APPLY 1 GRAM TOPICALLY TO AFFECTED AREA(S) TWICE DAILY 60 g 3 024 2024 Discontinued ibuprofen 600 MG tablet Take 1 tablet (600 mg) by mouth every 6 (six) hours if needed for mild pain for up to 20 doses. 20 tablet 024 2024 Discontinued(M ed list cleanup (will not trigger notification to Pharmacy)) hydrocortisone 0.5 % cream APPLY 1 GRAM TOPICALLY TO AFFECTED AREA(S) TWICE DAILY DIRECTED 56.8 g 1 024 2024 Discontinued Levoxyl 112 MCG tabletIndications :Acquired hypothyroidism Take [...] of tooth 12/16/2023 Pre-diabetes 12/06/2023 Fractured dental sikhism without loss of mat erial 12/06/2023 Transaminitis [...] diagnostic mammo and breast US, send to [facility] Cervical cancer screening 10/25/2023 Assessment & Plan (10/25/2023 11:08 AM EDT): 58 y.o. here for cervical cancer screening. Will continue monitoring following ASCCP guidelines. Otitis externa of left ear 10/07/2022 Cyst of ovary 03/31/2022 Depressive disorder 03/31/2022 Hypertension 03/31/2022 Menorrhagia with irregular cycle 03/31/2022 Acquired hypothyroidism 03/31/2022 Dysphagia 12/21/2017 Pain in wrist 10/03/2017 Recurrent major depression 06/15/2017 Asthenia 03/18/2017 Contact dermatitis 10/12/2016 Arthritis 11/28/2015 Generalized anxiety disorder 07/21/2015 Migraine 07/21/2015 Resolved Problems Problem Noted Date Diagnosed Date Resolved Date Hordeolum externum left lower eyelid 08/02/2023 04/17/2024 Assessment & Plan (08/02/2023 1:58 PM EDT): -apply warm compress multiple times per day -instill 1-2 gtts ketotifen BID prn itching -wash eyelids with baby shampoo -avoid make-up and eye liners -monitor and RTC with increase size, visual changes, eye drainage Dysuria 10/07/2022 10/25/2023 Assessment & Plan (10/13/2022 8:59 AM EDT): Will send out UCx, given patient symptomatic will send antibiotics. F/up Cx Irregular menstrual cycle 03/31/2022 Neck pain 12/21/2017 11/03/2023 Acute cystitis 12/16/2016 11/03/2023 Encounters Date Type Department Care Team Description 04/17/2024 2:30 PM EDT Office Visit [facility] [address] [place] [address], [place] [address] TarDee fournier, OD Dry eyes, bilateral (Primary Dx); Regular astigmatism, bilateral 04/17/2024 Travel 04/15/2024 Refill [facility] [address] [place] [address] Giana Isbell MD Chronic pain of left knee; Depressive disorder 04/12/2024 Orders Only [facility] [address] [place] [phone] Giana Isbell MD Bronchopneumonia (Primary Dx) 04/02/[address] [address] Giana Isbell MD Medication Question 03/28/2024 9:15 AM EST Office Visit [facility] [address] [place], [place] [phone] Giana Isbell MD Acute cough (Primary Dx); Acquired hypothyroidism; SOB (shortness of breath); Bronchopneumonia 03/28/2024 Travel 03/20/2024 Patient Outreach [address] [address] Giana Isbell MD Transition Of Care (Tcm) (HDF scheduled and SDOH screening negative and Tobacco screening negative) 03/19/2024 Patient Outreach [address] [address] Giana Isbell MD Transition Of Care (Tcm) (HDF unscheduled LVM ) 03/19/[address] [phone] Giana Isbell MD Hospital Follow-up 03/13/2024 Orders Only GENERIC EXTERNAL DATA DEPARTMENT Provider, Generic External Data 02/24/2024 Telephone [facility] [address] [place], [place] [phone] Lou Gonzalez MD 02/23/2024 [facility] Health Information Management [address] [place] [phone] Giana Isbell MD 02/22/2024 3:30 PM EST Office Visit [facility] [address] [place] [address] Giana Isbell MD Functional urinary incontinence (Primary Dx); Infiltrating ductal carcinoma of right breast (CMS/HCC) 02/22/2024 Orders Only [facility] External Provider, [facility] 02/22/2024 Travel 02/21/2024 Telephone [facility] [address] [place] [address] Giana Isbell MD Chart Prep 02/17/2024 Orders Only [place] [facility] [address] [place], [place] [phone] ProviderKathi MD 02/16/2024 Telephone [facility] [address] [place] [address] Giana Isbell MD Transition Of Care (Tcm) 02/16/2024 Orders Only GENERIC EXTERNAL DATA DEPARTMENT Provider, Generic External Data 02/15/2024 Orders Only GENERIC EXTERNAL DATA DEPARTMENT Provider, Generic External Data 02/10/2024 Orders Only [facility] External Provider, [facility] 02/10/2024 Telephone [facility] [address] [place] [address] Nicole Paz, RN Results 02/06/2024 Orders Only [facility] [address] [place] [address] Giana Isbell MD Acquired hypothyroidism (Primary Dx) 02/06/2024 Orders Only GENERIC EXTERNAL DATA DEPARTMENT Provider, Generic External Data 02/02/2024 Refill [facility] [address] [place] [address] Giana Isbell MD from Last 3 Months Immunizations Name Administration Dates Next Due Hep B, adult 08/09/2007,04/06/2007,03/07/2007 Christelle SARS-CoV-2 Vaccination 04/30/2020 TD (adult), 2 Lf tetanus tox oid, preservative free, adsorbed 09/23/2006 Tdap 09/21/2021 Family History Medical History Relation Name Comments Coronary artery disease Maternal Grandmother Breast cancer Mother Diabetes Sister Diabetic retino catalina Ovarian cancer Sister Relation Name Status Comments [...] situation today? I have robmary jo alexander 03/20/[address] you [...] Description 06/26/2024 1:30 PM EDT Office Visit [facility] [address] [place] [address] Giana Isbell MD [address] [place], [place] [phone] Health Maintenance Due Date Last Done Comments [...] 12/05/2024 024, 10/20/2023, 08/27/2021, Additional history exists SDOH Screening 03/20/2025 03/20/2024 Alcohol/Substance Use Screening 03/28/2025 03/28/2024 Depression Screening 03/28/2025 03/28/2024, 03/28/19 Mammogram 04/09/2025 04/09/2024, 02/07, 02/10/2024, Additional history exists Tobacco Screening 04/17/2025 04/17/2024 Colonoscopy 12/01/2025 12/02/2015 Colorectal Cancer Screening 12/01/2025 [...] AM EST IR CVC INSERT TUNNEL W PRT/HEARING AID ASSISTANT Routine 02/16/2024 7:46 AM EST GLUCOSE, WHOLE [...] CONTRAST BILATERAL Routine 02/06/2024 9:33 AM EST PANORAMIC RADIOGRAPHIC IMAGE Routine 12/06/2023 [...] EST Narrative 04/09/2024 1:08 PM EST ? [facility] ? [address] ?[place] [address] ? Ultrasound Report ? Signed ? Patient: Tamia Tory Sánchez ?MR#: [id number] ?? [id number] ? : 1965 ?Acct:[id number] ? Age/Sex: 58 / F ?ADM Date: 04/09/24 ? Loc: HO.MAMMO ? Attending Dr: Rhona Badillo MD ? Ordering Physician: Rhona Badillo MD ?? Date of Service: 04/09/24 ?? Procedure(s): US breast RT limited mamm only ?? Accession Number(s): [id number] ? cc: Giana Isbell MD; Rhona Badillo [...] ??Carissa Raza DO ??04/09/2024 01:05 PM EST ?? RP ? Dictated By: ?Carissa Raza DO ? Signed By: ?<Electronically signed by Carissa Raza DO in OV> ? 04/09/24 1305 ? DD/ 1230 ? TD/TT: 04/09/24 1241 ? Photographic Plate Maker: ? Procedure Note Donotuseinterpreter, Image - 04/09/[facility] [address] [place], [place] [address] Ultrasound Report Signed Patient: Pat Bush#: [id number] : 1965Acct:[id number] Age/Sex: 58 / FADM Date: 04/09/24 Loc: HO.MAMMO Attending Dr: Rhona Badillo MD Ordering Physician: Rhona Badillo MD Date of Service: 04/09/24 Procedure(s): US breast RT limited mamm only Accession Number(s): [id number] cc: Giana Isbell MD; Rhona Badillo MD [...] Carissa Raza DO 04/09/2024 01:05 PM EST RP Dictated By: Carissa Raza DO Signed By: <Electronically signed by Carissa Raza DO in OV> 04/09/24 1305 DD/ 1230 TD/TT: 04/09/24 1241 Photographic Plate Maker: [facility] External Provider IMG US PROCEDURES Final Result * Lactic Acid (03/13/2024 6:39 PM EST) Lactic Acid 1.0 0.5 - 2.0 mmol/L [facility] 03/13/2024 6:39 PM EST 03/13/2024 6:41 PM EST Generic External Data Provider LAB BLOOD ORDERAB LES Final Result [facility] [address] [place] [phone] * CTA Chest PE Protocal (03/13/2024 4:24 PM EST) Anatomical Region Laterality Modality Body, Chest Computed Tomogra phy 03/13/2024 4:24 PM EST Narrative 03/13/2024 5:03 PM EST ? [facility] ?[address] [place] [address] ?[place] [address] ? CT Scan Report ? Signed ? Patient: Tamia Sánchez,Tory ?MR#: [id number] ?? [id number] ? : 1965 ?Acct:[id number] ? Age/Sex: 58 / F ?ADM Date: 02/04/25 ? Loc: HO.ED ? Attending Dr: ? Ordering Physician: Kristi Bazan ?? Date of Service: 03/13/24 ?? Procedure(s): CT angio chest PE protocol ?? Accession Number(s): [id number] ? cc: Giana Isbell MD; Kristi Bazan ? Report Number: ?? [id number]: Total DLP = ??202.00 mGy-cm ?? EXAMINATION: [...] DD/ 1624 ? TD/TT: 03/13/24 1642 ? Photographic Plate Maker: ? Procedure Note Trish, Image - 03/13/[address] [place] [address] [address] Scan Report Signed Patient: Pat Bush#: [id number] : 1965Acct:[id number] Age/Sex: 58 / FADM Date: 03/13/24 Loc: HO.ED Attending Dr: Ordering Physician: Kristi Bazan Date of Service: 03/13/24 Procedure(s): CT angio chest PE protocol Accession Number(s): [id number] cc: Giana Isbell MD; Kristi Bazan Report Number: [id number]: Total DLP = 202.00 mGy-cm EXAMINATION: CT [...] 03/13/24 1700 DD/ 1624 TD/TT: 03/13/24 1642 Photographic Plate Maker: [facility] External Provider IMG CT PROCEDURES Final Result * High Sensitivity Troponin I (03/13/2024 4:05 PM EST) Only the most recent of2 resultswithin the time period is included. [facility] TROPONIN I HIGH SENSITIVITY 5.8 <3.5 - 17.0 ng/L [facility] Comment:The Dinh high sens itivity Troponin-I results should beused in conjunction with other diagnostic information suchas ECG, clinical observations and information, and patientsymptoms to aid in the diagnosis of AK. 03/13/2024 4:05 PM EST 03/13/2024 4:09 PM EST Generic External Data Provider LAB BLOOD ORDERAB LES Final Result Performing Organization Address City/State/[facility] Co de Phone Number [facility] [address] [place] [phone] * D Dimer High Sensitivity (03/13/2024 2:52 PM EST) [facility] D Dimer High Sensitivity 349 NG/ML [facility] Comment:D-DIMER HS REFERENCE RANGENote: Our [...] Provider LAB BLOOD ORDERAB LES Final Result [facility] [address] [place], [place] [phone] * (ABNORMAL) Complete Blood Count Manual Diff (03/13/2024 2:52 PM EST) White Blood Count 7.5 4.8 - 10.8 X10*3/uL [facility] Red Blood Count 4.75 4.20 - 5.50 X10*6/uL [facility] Hemoglobin 14.2 12.0 - 16.0 g/dl [facility] Hematocrit 41.9 37.0 - 47.0 % [facility] Mean Corpuscular Volume 88.2 80.0 - 98.0 fL [facility] Mean Corpuscular Hemoglobin 29.9 27.0 - 33.0 pg [facility] Mean Corpuscular HGB Conc 33.9 31.0 - 35.0 g/dl [facility] Red Cell Distribution Width 14.5 11.0 - 16.0 % [facility] Platelet Count 148(L) 160 - 400 X10*3/uL [facility] Mean Platelet Volume 9.7 9.4 - 12.3 fL [facility] NRBC Pct Auto 0.0 0.0 - 0.2 /100WBC [facility] NRBC Abs Auto 0.000 0.0 - 0.012 X10*3/uL [facility] Neutrophils % Manual 70 45 - 73 % [facility] Band Neutrophils Percent 2(L) 3 - 5 % [facility] Lymphocytes Percent Manual 26 20 - 40 % [facility] Monocytes Percent Manual 1(L) 2 - 11 % [facility] EOSINOPHILS % MANUAL 1 0 - 4 % [facility] NEUTROPHILS ABSOLUTE MANUAL 5.4 2.0 - 8.3 X10*3/uL [facility] LYMPHOCYTES ABSOLUTE MANUAL 2.0 1.2 - 4.9 X10*3/uL [facility] MONOCYTES ABSOLUTE MANUAL 0.1 0.1 - 1.2 X10*3/uL [facility] EOSINOPHILS ABSOLUTE MANUAL 0.1 0.0 - 0.4 X10*3/uL [facility] Platelet Estimate NORMAL NORMAL [facility] Platelet Morphology Comment NORMAL [facility] RBC Morphology NORMAL [facility] Toxic Granulation PRESENT [facility] Toxic Vacuolation PRESENT [facility] Dohle Bodies PRESENT [facility] 03/13/2024 2:52 PM EST 03/13/2024 3:00 PM EST us Generic External Data Provider LAB BLOOD ORDERAB LES Final Result Performing Organization Address [facility]/ZIP Co de Phone Number [facility] [address] [place] [address] [phone] * SARS-CoV-2 RNA, Influenza A/B, and RSV RNA, Ql NAAT (03/13/2024 2:52 PM EST) Influenza A PCR NEGATIVE Negative [facility] Influenza B PCR NEGATIVE Negative [facility] Resp Syncy Virus RNA Qual PCR NEGATIVE Negative [facility] SARS COV2 PCR NEGATIVE Negative [facility] Comment:All test results mus t be [...] use by authorized laboratories.Testing performed on the [employer] GeneXpert utilizingreal-time RT-PCR.All SARS CoV2 and positive influenza A/B results arereported to [facility]. 03/13/2024 2:52 PM EST 03/13/2024 3:00 PM EST us Generic External Data Provider LAB MICROBIOLOGY - GENERAL ORDERABLES Final Result Performing Organization Address City/[facility]/ZIP Co de Phone Number [facility] [address] [place] [address] [phone] * (ABNORMAL) CBC auto differential (03/13/2024 2:52 PM EST) Only the most recent of2 resultswithin the time period is included. White Blood Count 7.5 4.8 - 10.8 X10*3/uL [facility] Red Blood Count 4.75 4.20 - 5.50 X10*6/uL [facility] Hemoglobin 14.2 12.0 - 16.0 g/dl [facility] Hematocrit 41.9 37.0 - 47.0 % [facility] Mean Corpuscular Volume 88.2 80.0 - 98.0 fL [facility] Mean Corpuscular Hemoglobin 29.9 27.0 - 33.0 pg [facility] Mean Corpuscular HGB Conc 33.9 31.0 - 35.0 g/dl [facility] Red Cell Distribution Width 14.5 11.0 - 16.0 % [facility] Platelet Count 148(L) 160 - 400 X10*3/uL [facility] Mean Platelet Volume 9.7 9.4 - 12.3 fL [facility] Neutrophils Percent Auto 76.3(H) 45 - 73 % [facility] Imm Gran Pct Auto 0.3 0.0 - 0.4 % [facility] Lymphocytes Percent Auto 17.8(L) 20 - 40 % [facility] Monocytes Percent Auto 3.3 2 - 11 % [facility] Eosinophils Percent Auto 1.9 0 - 4 % [facility] Basophils Percent Auto 0.4 0 - 2 % [facility] NRBC Pct Auto 0.0 0.0 - 0.2 /100WBC [facility] Neutrophils Absolute Auto 5.8 2.0 - 8.3 x10*3/uL [facility] Imm Gran Abs Auto 0.02 0.00 - 0.03 X10*3/uL [facility] Lymphocytes Absolute Auto 1.3 1.2 - 4.9 X10*3/uL [facility] Monocytes Absolute Auto 0.3 0.1 - 1.2 X10*3/uL [facility] Eosinophils Absolute Auto 0.1 0.0 - 0.4 X10*3/uL [facility] Basophils Absolute Auto 0.0 0.0 - 0.2 X10*3/uL [facility] NRBC Abs Auto 0.000 0.0 - 0.012 X10*3/uL [facility] 03/13/2024 2:52 PM EST 03/13/2024 3:00 PM EST Generic External Data Provider LAB BLOOD ORDERAB LES Edited Result - Final Performing Organization Address [facility] Co de Phone Number [facility] [address] [place] [phone] * Prothrombin Time-INR (03/13/2024 2:52 PM EST) Pathologist [facility] Prothrombin Time 11.1 10.9 - 12.4 SEC [facility] INTERNATIONAL NORM RATIO 1.0 0.9 - 1.1 [facility] Comment:INTERNATIONAL NORMAL IZED RATIO (INR) [...] ORDERAB LES Final Result Performing Organization Address [facility] Phone Number [facility] [address] [place] [phone] * B Type Natriuretic Peptide (BNP) (03/13/2024 2:52 PM EST) Pathologist [facility] B Type Natriuretic Peptide <10 <100 pg/mL [facility] Comment:For those patients w ho are being treated with Natrecor(nesiritide, recombinant BNP), BNP testing should beperformed at least two hours post treatment in order toensure that only endogenous levels of BNP are detected. 03/13/2024 2:52 PM EST 03/13/2024 3:00 PM EST Generic External Data Provider LAB BLOOD ORDERAB LES Final Result Performing Organization Address City/[facility]/ZIP Co de Phone Number [facility] [address] [place] [phone] * Magnesium (03/13/2024 2:52 PM EST) Only the most recent of2 resultswithin the time period is included. [facility] Magnesium 1.9 1.6 - 2.6 mg/dL [facility] 03/13/2024 2:52 PM EST 03/13/2024 3:00 PM EST Generic External Data Provider LAB BLOOD ORDERAB LES Final Result Performing Organization Address [facility] Co de Phone Number [facility] [address] [place] [phone] * (ABNORMAL) Hepatic Function Panel (03/13/2024 2:52 PM EST) [facility] Bilirubin, Total 0.5 0.0 - 1.0 mg/dL [facility] Bilirubin, Direct 0.1 0.0 - 0.5 mg/dL [facility] Aspartate Amino Transferase 33(H) 5 - 31 U/L [facility] Comment:Slight Hemolysis.Int erpret result with caution. Alanine Aminotransferase 38(H) 0 - 31 U/L [facility] Total Protein 6.7 6.5 - 8.0 g/dL [facility] Albumin Level 3.7 3.5 - 5.0 g/dL [facility] Alkaline Phosphatase 161(H) 39 - 117 U/L [facility] 03/13/2024 2:52 PM EST 03/13/2024 3:00 PM EST us Generic External Data Provider LAB BLOOD ORDERAB LES Final Result [facility] [address] [place] [phone] [phone] * (ABNORMAL) Basic Metabolic Panel (03/13/2024 2:52 PM EST) Sodium 140 135 - 145 mmol/L [facility] Potassium 4.0 3.3 - 5.1 mmol/L [facility] Comment:Slight Hemolysis.Int erpret result with caution. Chloride 109(H) 96 - 108 mmol/L [facility] Carbon Dioxide 22 22 - 29 mmol/L [facility] Anion Gap 13 12 - 20 [facility] Urea Nitrogen (BUN) 20(H) 9 - 16 mg/dL [facility] Creatinine, Serum 0.93 0.5 - 1.4 mg/dL [facility] Creatinine Clr Calc Pharmacy 54.5 [facility] Comment:Provided height and weight: 160.02 cm,58.967 kg.eGFR (calculated from the MDRD study equation) and eCrCl(calculated from the Cockcroft-Gault equation) are based ondifferent parameters and may not yield comparable results.If eCrCl result is absurd, please check patient'sheight/weight. Estimated Glomerular Filt Rate >60 [facility] Comment:Chronic Kidney Disea se: Estimated GFR < 60 mL/min/[id number] Kidney Disease: Estimated GFR < 15 mL/min/1.73m2 Glucose 123(H) 60 - 115 mg/dL [facility] Calcium 9.0 8.4 - 10.2 mg/dL [facility] 03/13/2024 2:52 PM EST 03/13/2024 3:00 PM EST us Generic External Data Provider LAB BLOOD ORDERAB LES Final Result [facility] [address] [place] [address] [phone] * XR Chest 1 View (03/13/2024 2:39 PM EST) Anatomical Region Laterality Modality Chest Radiographic Laura ging 03/13/2024 2:39 PM EST Narrative 03/13/2024 3:51 PM EST ? [facility] ?[address] ?[place] [address] ?XRay Report ? Signed ? Patient: Tory Bush ?MR#: [id number] ?? [id number] ? : 1965 ?Acct:[id number] ? Age/Sex: 58 / F ?ADM Date: 03/13/24 ? Loc: HO.ED ? Attending Dr: ? Ordering Physician: Kristi Bazan ?? Date of Service: 03/13/24 ?? Procedure(s): XR chest 1V ?? Accession Number(s): [id number] ? cc: Giana Isbell MD; Krsiti Bazan ? EXAMINATION: ??XR CHEST 1 VIEW [...] DD/ 1439 ? TD/TT: 03/13/24 1525 ? Photographic Plate Maker: ? Procedure Note Trish, Image - 03/13/[address] [address] XRay Report Signed Patient: Pat Bush#: [id number] : 1965Acct:[id number] Age/Sex: 58 / FADM Date: 03/13/24 Loc: HO.ED Attending Dr: Ordering Physician: Kristi Bazan Date of Service: 03/13/24 Procedure(s): XR chest 1V Accession Number(s): [id number] cc: Giana Isbell MD; Kristi Bazan EXAMINATION: [...] 03/13/24 1549 DD/ 1439 TD/TT: 03/13/24 1525 Photographic Plate Maker: [facility] External Provider IMG XR PROCEDURES Final Result [...] Media Lot # [id number] Lot# Expiration Date [id number] Urine 02/22/2024 4:33 PM EST us Giana Isbell MD POINT OF CARE TEST ENTER/ED IT ORDERABLES Final Result * BI Mammogram Diagnostic Tomosynthesis Left (02/22/2024 12:55 PM EST) Anatomical Region Laterality Modality Breast Left Mammography 02/22/2024 12:5 5 PM EST Narrative 02/23/2024 9:49 AM EST ? [facility] ?[address] ?[place] [address] ? Mammography Report ? Signed with Addenda ? Patient: Tamia CoyneTory kennedy ?MR#: [id number] ?? [id number] ? : 1965 ?Acct:[id number] ? Age/Sex: 58 / F ?ADM Date: 02/22/24 ? Loc: HO.MRI ? Attending Dr: Rhona Badillo MD ? Ordering Physician: Rhona Badillo MD ?Results: 1Negati ?? ve ? Date of Service: 02/22/24 ?Follow Up: 1 Year From Orig ?? inal Mammogram ? Procedure(s): MM tomosynthesis diagnostic LT ?? Accession Number(s): [id number] ? cc: Giana Isbell MD; Rhona Badillo [...] 1% lidocaine with epinephrine. ? NEEDLE: ?? [employer] 9-gauge vacuum assisted core biopsy device. ? [...] DD/ 1255 ? TD/TT: 02/22/24 1305 ? Photographic Plate Maker: ? Procedure Note Dondanutashirlenecarloster, Image - 03/02/2024 [place] [address] Mammography Report Signed with Fani Patient: Pat Bush#: [id number] : 1965Acct:[id number] Age/Sex: 58 / FADM Date: 02/22/24 Loc: HO.MRI Attending Dr: Rhona Badillo MD Ordering Physician: Rhona Badilloesults: 1Negati ve Date of Service: 02/22/24Follow Up: 1 Year From [facility] ina Mammogram Procedure(s): MM tomosynthesis diagnostic LT Accession Number(s): [id number] cc: Giana Isbell MD; Rhona Badillo MD [...] without and with use of gadolinium contrast. [employer] Medical introducer localization system is used with grid. LESION: Left retroareolar lower outer breast anterior depth.. LOCAL ANESTHESIA: 6 mL 1% lidocaine; 4 mL 1% lidocaine with epinephrine. NEEDLE: [employer] 9-gauge vacuum assisted core biopsy device. APPROACH: [...] Raza DO in OV> 02/23/24 0947 DD/ 54 TD/TT: 02/22/241304 Photographic Plate Maker: [facility] External Provider IMG BI PROCEDURES Edited Result - Final * Hematoxylin and Eosin Stain (02/22/2024 12:27 PM EST) 02/22/2024 12:2 7 PM EST 02/22/2024 1:32 PM EST [facility] - 02/24/2024 2:51 PM EST ----- ------- Name: Tory Bush ?Age/Sex: 58/F ? : 1965 Unit#: [id number] ?? Attend Dr: Rhona Badillo MD ?Re02/22/24 ?Status: DEP REF ? Location: HO.MRI ?Disch: ? ----- ------- SPEC : [id number] ?RECD: 02/22/24-1331 ? STATUS: ??SOUT ? REQ NUM: [id number] ? TEQUILA: 02/22/24-1227 ? SUBM DR: Carissa Raza DO ? ENTERED: ??02/22/244 ?SP TYPE: Surgical ? OTHR DR: Giana [...] Copies To: ?? Giana Isbell MD ?? [facility] ?? [address] ?? [place] [address] ?? [phone] ?? Rhona Badillo MD ?? [facility] Oncology/Hematology ?? [address] ?? [place] [address] ?? [phone] ? CONTINUED ON NEXT PAGE ----- ------- Name: Tory Bush ?Age/Sex: 58/F ? : 1965 Unit#: [id number] ?? Attend Dr: Rhona Badillo MD ?Re02/22/24 ?Status: DEP REF ? Location: HO.MRI ?Disch: ? ----- ------- SPEC : [id number] ?RECD: 02/22/24-1331 ? STATUS: ??SOUT ? REQ NUM: [id number] ? TEQUILA: 02/22/24-1227 ? SUBM DR: Carissa Raza DO ? ENTERED: ??02/22/24-1341 ?SP TYPE: Surgical ? OTHR DR: Giana Isbell MD ?Rhona Badillo MD ORDERED: ??HE Stain/2, Gross Micro L4 ? COMMENTS: As per the specimen requisition slip the specimen is ?collected at 1227 and placed in formalin at 1240. Copies To: ??(Continued) ?? Carissa Raza DO ?? [address] [facility] ?? [place] [address] ?? [phone] ----- ------- Signed (signature on file) Osman Ríos MD 02/24/24 3383 ? ----- ------- ? END OF REPORT ? us Generic External Data Provider LAB BLOOD ORDERAB LES Final Result Performing Organization Address [facility]/State/ZIP Co de Phone Number [facility] [address] [place] [address] [phone] * BI MR Guided Breast Biopsy Left (02/22/2024 11:14 AM EST) Anatomical Region Laterality Modality Breast Left Magnetic Resonan ce 02/22/2024 11:1 4 AM EST Narrative 02/23/2024 9:50 AM EST ? [facility] ?[address] ?[place] [address] ? Magnetic Resonance Report ? Signed with Addenda ? Patient: Tamia Sánchez,Troy ?MR#: [id number] ?? [id number] ? : 1965 ?Acct:[id number] ? Age/Sex: 58 / F ?ADM Date: 02/22/24 ? Loc: HO.MRI ? Attending Dr: Rhona Badillo MD ? Ordering Physician: Rhona Badillo MD ?? Date of Service: 02/22/24 ?? Procedure(s): MR guided breast biopsy LT ?? Accession Number(s): [id number] ? cc: Giana Isbell MD; Rhona Badillo [...] 1% lidocaine with epinephrine. ? NEEDLE: ?? [employer] 9-gauge vacuum assisted core biopsy device. ? [...] DD/ 1114 ? TD/TT: 02/22/24 1230 ? Photographic Plate Maker: ? Procedure Note Trish, Eliud - 03/02/[address] [place] [address] Magnetic Resonance Report Signed with Addenda Patient: Pat Bush#: [id number] : 1965Acct:[id number] Age/Sex: 58 / FADM Date: 02/22/24 Loc: HO.MRI Attending Dr: Rhona Badillo MD Ordering Physician: Rhona Badillo MD Date of Service: 02/22/24 Procedure(s): MR guided breast biopsy LT Accession Number(s): [id number] cc: Giana Isbell MD; Rhona Badillo MD [...] without and with use of gadolinium contrast. [employer] Medical introducer localization system is used with grid. LESION: Left retroareolar lower outer breast anterior depth.. LOCAL ANESTHESIA: 6 mL 1% lidocaine; 4 mL 1% lidocaine with epinephrine. NEEDLE: [employer] 9-gauge vacuum assisted core biopsy device. APPROACH: [...] 02/23/24 0947 DD/ 1114 TD/TT: 02/22/24 1230 Photographic Plate Maker: [facility] External Provider IMG MRI PROCEDURES Edited Result - Final * IR cvc insert tunnel w prt/pipe and boiler covers supervisor (02/16/2024 7:46 AM EST) Anatomical Region Laterality Modality X-Ray Angiograph y 02/16/2024 7:46 AM EST Narrative 02/24/2024 2:22 PM EST ? [facility] ?[address] ?[place] [address] ?Interventional Radiology Rpt ? Signed ? Patient: Atmia Sánchez,Tory ?MR#: [id number] ?? [id number] ? : 1965 ?Acct:[id number] ? Age/Sex: 58 / F ?ADM Date: 02/15/ ? Loc: HO.SSS ? Attending Dr: Rhona Badillo MD ? Ordering Physician: Rhona Badillo MD ?? Date of Service: 02/16/24 ?? Procedure(s): IR cvc insert tunnel w prt/pipe and boiler covers supervisor ?? Accession Number(s): [id number] ? cc: Giana Isbell MD; Rhona Badillo [...] records. ?? 2. Placement of a 6.6 Gabonese single-lumen power port. ? CLINICIAN: ?? Fortino [...] site. Through the peel-away sheath, the 6.6 Gabonese port catheter was ?? placed. The catheter [...] vein ?? 2. Placement of a 6.6 Gabonese single lumen power port. ?? 3. Port flushes and aspirates very well with a 10 mL syringe. No ?? pneumothorax. ? IR/IR cvc insert tunnel w prt/pipe and boiler covers supervisor ?? IMPRESSION: ?? Placement of a 6.6 Gabonese single-lumen power port. ? PLAN: ?? - [...] DD/ 0746 ? TD/TT: 02/16/24 0934 ? Photographic Plate Maker: ? Procedure Note Trish, Eliud - 02/24/[address] [address] Interventional Radiology Rpt Signed Patient: Pat Bush#: [id number] : 1965Acct:[id number] Age/Sex: 58 / FADM Date: 02/16/24 Loc: HO.SSS Attending Dr: Rhona Badillo MD Ordering Physician: Rhona Badillo MD Date of Service: 02/16/24 Procedure(s): IR cvc insert tunnel w prt/pipe and boiler covers supervisor Accession Number(s): [id number] cc: Giana Isbell MD; Rhona Badillo MD CLINICAL HISTORY: Right breast cancer. The patient presents to interventional radiology for placement of a port for chemotherapy. PROCEDURES: 1. Real-time ultrasound-guided access into the left internal jugular vein after documentation of selected vessel patency, and permanent image storing in the patient records. 2. Placement of a 6.6 Gabonese single-lumen power port. CLINICIAN: Fortino Muniz PA-C [...] site. Through the peel-away sheath, the 6.6 Gabonese port catheter was placed. The catheter position [...] jugular vein 2. Placement of a 6.6 Gabonese single lumen power port. 3. Port flushes and aspirates very well with a 10 mL syringe. No pneumothorax. IR/IR cvc insert tunnel w prt/pipe and boiler covers supervisor IMPRESSION: Placement of a 6.6 Gabonese single-lumen power port. PLAN: - The patient [...] 02/24/24 1421 DD/ 0746 TD/TT: 02/16/24 0934 Photographic Plate Maker: [facility] External Provider IMG IR PROCEDURES Edited Result - Final * (ABNORMAL) Glucose, Whole Blood (02/16/2024 7:06 AM EST) Pathologist [facility] Glucose, Whole Blood 142(H) 60 - 115 mg/dL [facility] Comment:METER #: [id number] 02/16/2024 7:06 AM EST 02/16/2024 7:11 AM EST Generic External Data Provider LAB BLOOD ORDERAB LES Final Result [facility] [address] [place] [phone] * (ABNORMAL) Comprehensive Metabolic Panel (02/15/2024 2:03 PM EST) Pathologist [facility] Sodium 145 135 - 145 mmol/L [facility] Potassium 4.2 3.3 - 5.1 mmol/L [facility] Chloride 109(H) 96 - 108 mmol/L [facility] Carbon Dioxide 28 22 - 29 mmol/L [facility] Anion Gap 12 12 - 20 [facility] Urea Nitrogen (BUN) 14 9 - 16 mg/dL [facility] Creatinine, Serum 0.89 0.5 - 1.4 mg/dL [facility] Estimated Glomerular Filt Rate >60 [facility] Comment:Chronic Kidney Disea se: Estimated GFR < 60 mL/min/1.04n5Bvbpqx Kidney Disease: Estimated GFR < 15 mL/min/1.73m2 Glucose 94 60 - 115 mg/dL [facility] Calcium 8.9 8.4 - 10.2 mg/dL [facility] Bilirubin, Total 0.4 0.0 - 1.0 mg/dL [facility] Aspartate Amino Transferase 36(H) 5 - 31 U/L [facility] Alanine Aminotransferase 33(H) 0 - 31 U/L [facility] Total Protein 7.1 6.5 - 8.0 g/dL [facility] Albumin Level 4.2 3.5 - 5.0 g/dL [facility] Alkaline Phosphatase 122(H) 39 - 117 U/L [facility] 02/15/2024 2:03 PM EST 02/15/2024 2:03 PM EST us Generic External Data Provider LAB BLOOD ORDERAB LES Final Result Performing Organization Address City/State/[facility] Co de Phone Number [facility] [address] [place] [address] [phone] * BI US Breast Limited Left (02/10/2024 12:15 PM EST) Anatomical Region Laterality Modality Breast Left Ultrasound 02/10/2024 12:1 5 PM EST Narrative 02/10/2024 3:42 PM EST ? [place] [facility] ? [address] ?[place] [address] ? Ultrasound Report ? Signed ? Patient: Tamia Sánchez,Tory ?MR#: [id number] ?? [id number] ? : 1965 ?Acct:[id number] ? Age/Sex: 58 / F ?ADM Date: 02/10/24 ? Loc: HO.MAMMO ? Attending Dr: Rhona Badillo MD ? Ordering Physician: Rhona Badillo MD ?? Date of Service: 02/10/24 ?? Procedure(s): US breast LT limited mamm only ?? Accession Number(s): [id number] ? cc: Giana Isbell MD; Rhona Badillo [...] DD/ 1215 ? TD/TT: 02/10/24 1231 ? Photographic Plate Maker: ? Procedure Note Donotuseinterpreter, Image - 02/10/20[facility] [address] [place] [address] Ultrasound Report Signed Patient: Pat Bush#: [id number] : 1965Acct:[id number] Age/Sex: 58 / FADM Date: 02/10/24 Loc: HO.MAMMO Attending Dr: Rhona Badillo MD Ordering Physician: Rhona Badillo MD Date of Service: 02/10/24 Procedure(s): US breast LT limited mamm only Accession Number(s): [id number] cc: Giana Isbell MD; Rhona Badillo MD [...] 02/10/24 1539 DD/ 1215 TD/TT: 02/10/24 1231 Photographic Plate Maker: [facility] External Provider IMG US PROCEDURES Edited Result - Final * (ABNORMAL) TSH W/Reflex to FT4 (02/06/2024 10:45 AM EST) TSH reflex Free T4 10.06(H) 0.32 - 4.0 uIU/mL [facility] Blood Venous blood specimen / Unknown 02/06/2024 10:45 AM EST 02/06/2024 10:45 AM EST Giana Isbell MD LAB BLOOD ORDERABLES Final Result Performing Organization Address City/[facility]/ZIP Co de Phone Number [facility] [address] [place] [phone] * (ABNORMAL) T4, Free (02/06/2024 10:45 AM EST) Free T4 (Free Thyroxine) 0.68(L) 0.71 - 1.85 ng/dL [facility] 02/06/2024 10:4 5 AM EST 02/06/2024 10:45 AM EST Generic External Data Provider LAB BLOOD ORDERAB LES Final Result Performing Organization Address [facility]/ZIP Co de Phone Number [facility] [address] [place] [phone] * BI MR Breast w and w/o Contrast Bilateral (02/06/2024 9:33 AM EST) Anatomical Region Laterality Modality Breast Bilateral Magnetic Resonan ce 02/06/2024 9:33 AM EST Narrative 02/10/2024 3:39 PM EST ? [facility] ?[address] ?[place] [address] ? Magnetic Resonance Report ? Signed with Addenda ? Patient: Tamia Morrisjica,Tory ?MR#: [id number] ?? [id number] ? : 1965 ?Acct:[id number] ? Age/Sex: 58 / F ?ADM Date: 02/06/24 ? Loc: HO.MRI ? Attending Dr: Pardeep Marcos MD ? Ordering Physician: Pardeep Marcos MD ?? Date of Service: 02/06/24 ?? Procedure(s): MR breast BI wo/w con ?? Accession Number(s): [id number] ? cc: Giana Isbell MD; Pardeep Marcos [...] 02/13/24 1035 ?? Addendum Cosigned By: ? DD/DT: 02/05 ? TD/TT: 02/05 ? EXAMINATION: ?? MR BREAST WITHOUT AND [...] DD/ 0933 ? TD/TT: 02/06/24 1016 ? Photographic Plate Maker: ? Procedure Note Donmichelle, Image - 02/13/2024 [place] [address] Magnetic Resonance Report Signed with Ramonenda Patient: Pat Bush#: [id number] : 1965Acct:[id number] Age/Sex: 58 / FADM Date: 02/06/24 Loc: HO.MRI Attending Dr: Pardeep Marcos MD Ordering Physician: Pardeep Marcos MD Date of Service: 02/06/24 Procedure(s): MR breast BI wo/w con Accession Number(s): [id number] cc: Giana Isbell MD; Pardeep Marcos MD [...] 02/10/24 1536 DD/ 0933 TD/TT: 02/06/24 1016 Photographic Plate Maker: [facility] External Provider IMG MRI PROCEDURES Edited Result - Final * (ABNORMAL) [...] HPV nRNA E6/E7 Not Detected Not Detected [facility] Comment:Methodology: Transcr iption-Mediated AmplificationThis assay detects E6/E7 viral messenger RNA (mRNA) from 14high-risk HPV types (16,18,31,33,35,39,45,51,52,56,58,59,66,68).Cervical sources are required for HPV testing.If a vaginal source from a patient who has had atotal hysterectomy with removal of cervix wassubmitted, please contact the testing laboratoryfor alternative testing options.For additional information, please refer tohttp://education.[employer]/faq/GCX095j2(This link if provided for information/educational purposes only.)THIS TEST WAS PERFORMED AT:[employer] [address] [phone] FISCHER MD SOURCE: SEE NOTE [facility] Comment:None given Report Status: [facility] Clinical Information: SEE NOTE [facility] Comment:None given LMP: SEE NOTE [facility] Comment:NONE GIVEN Prev. PAP: SEE NOTE [facility] Comment:NONE GIVEN Prev. BX: SEE NOTE [facility] Comment:NONE GIVEN Statement Of Adequacy: SEE NOTE [facility] Comment:Satisfactory for tiffany luation.Endocervical/transformation zone componentpresent. General Categorization: [facility] Interpretation/Result: SEE NOTE [facility] Comment:Cytology Results: Ne gative for intraepitheliallesion or malignancy. Cytology Comment SEE NOTE [facility] Comment:This Pap test has be en evaluated with computerassisted technology. Agricultural Pilot: SEE NOTE [facility] Comment:YP, CT(ASCP)CT scree gino location: [place] [address] Review Agricultural Pilot: [facility] Pathologist TNP [facility] PAP [facility]fection [facility] See Note SEE NOTE [facility] Comment:EXPLANATORY NOTE:The Pap is a screening test for cervical cancer. It isnot a diagnostic test and is subject to false negativeand false positive results. It is most reliable when asatisfactory sample, regularly obtained, is submittedwith relevant clinical findings and history, and whenthe Pap result is evaluated along with historic andcurrent clinical information. 10/25/2023 10/25/2023 Narrative [facility] - 11/01/2023 12:30 PM EDT SEE SCANNED RESULTS IN EMR us Lou Gonzalez MD LAB PATHOLOGY ORDERABLES Ashlyn l Result Performing Organization Address [facility] de Phone Number [facility] [address] [place] [phone] * Hepatitis Panel, General (01/13/2023 9:50 AM EST) Hepatitis A IgM Nonreactive Nonreactive [facility] Comment:IgM antibodies to RUELAS V not detected; does not exclude earlyacute or recovered HAV infection. ~Hepatitis B Surface Antibody NONREACTIVE Nonreactive [facility] Comment:Nonreactive: < 8.00 mIU/mL Hepatitis B Core Antibody Nonreactive Nonreactive [facility] Hepatitis C Antibody Nonreactive Nonreactive [facility] Comment:Antibodies to HCV no t detected; does not exclude early acuteHCV infection. Hepatitis B Surface Ag Negative Negative [facility] 01/13/2023 9:50 AM EST 01/13/2023 9:52 AM EST us Generic External Data Provider LAB BLOOD ORDERAB LES Final Result Performing Organization Address [facility] Co de Phone Number [facility] [address] [place] [phone] * (ABNORMAL) LIPID PANEL, STANDARD (08/04/2021 [...] ?? Esteban JACOBS et al. NIC. 2013;310(19): 3983-4242 ?? (http://education.[employer]/faq/WPC594) Non-HDL Cholesterol 188(H) <130 mg/dL (calc) [facility] Comment: For patients with diabetes plus 1 major ASCVD risk ?? factor, treating to a non-HDL-C goal of <100 mg/dL ?? (LDL-C of <70 mg/dL) is considered a therapeutic ?? option. Triglycerides 189(H) <150 mg/dL [facility] 08/04/2021 9:06 AM EDT Giana Isbell MD LAB BLOOD ORDERABLES Final Result [facility] [address] * Hm Colonoscopy (12/02/2015) Colonoscopy Normal Normal Narrative Lily Sanchez - 12/02/2015 Recommended 10 year follow up Historical Provider HEALTH MAINTENANCE Final Result from Last 3 Months or Most Recently Relevant to Health Maintenance Insurance [employer] - [facility] Care Teams Nuclear Weapons Custodian Relationship Specialty Start Date End Date Giana Isbell MD [address] [place] [address] PCP - General Internal Medicine 09/07/18
--- OUTSIDE RECORDS SUMMARY | 2024-04-19 08:46 | XMS_ITS | Encounter Summary ---
Author Organization [employer] Address [address] [facility] 7t [place] [address] Care Team Providers Care Funding Specialist Name Role Phone Giana Isbell MD Primary Care Provider [phone] Reason for Visit * Reason Comments Med Refill Encounter Details Date Type Department Care Team ([facility] Contact Info) Description 04/15/2024 Refill [facility] [address] [place] [address] Giana Isbell MD [address] [place] [address] Chronic pain of left knee; Depressive disorder Social History Tobacco Use Types Packs/Day Years [...] [facility] [address] [place] [address] Giana Isbell MD [address] [place] [address] documented as of this encounter Visit Diagnoses Diagnosis Chronic pain of left knee Depressive disorder Depressive disorder, not elsewhere classified documented in this encounter Additional Health Concerns Assessment Noted Time PHQ-9 Depression Total Score: 24 025 9:26 AM EST documented as of this encounter Care Teams Funding Specialist Relationship Specialty Start Date End Date Giana Isbell MD [address] [place] [address] PCP - General Internal Medicine 09/07/18 documented as of this encounter
== END 2024-04-19 08:21 | disposition home or self-care (01) ==
LOC: HO.LAB 08:20
PROVIDERS: PCP Internal Medicine; Visit Provider Internal Medicine
DX: J18.0 Bronchopneumonia, unspecified organism (principal); Z97.8 Presence of other specified devices
CPT/HCPCS: 71046

== ENCOUNTER → 2024-04-19 08:28 | Outpatient (BNV) | payer OTHER, SELFPAY | PROVIDERS: PCP Internal Medicine; Visit Provider Radiology Diagnostic Radiology | DX: R05.9 Cough, unspecified (principal) | CPT/HCPCS: 71046 ==

== ENCOUNTER 2024-05-09 07:46 | Outpatient (AMB) | payer OTHER, SELFPAY ==
--- OUTSIDE RECORDS SUMMARY | 2024-05-09 07:49 | XMS_ITS | Encounter Summary ---
Author Organization [employer] Address [address] [facility] [address]t [place] [address] Care Team Providers Care Front Desk Manager Name Role Phone Giana Isbell MD Primary Care Provider [phone] Reason for Visit * Reason Onset Date Comments Nurse Triage 08/02/2023 Encounter Details Date Type Department Care Team ([facility] Contact Info) Description 08/02/2023 Telephone [facility] MED & PEDS [address] [place] [address] Giana Isbell MD [address] [place] [address] Nurse Triage Social History Tobacco Use Types [...] 08/02/2023 10:38 AM EDT Triage call with [employer] Counselor [place] [id number] Pt reports a small lump in the corner of lower left eye lid. Pt reports it is red, itchy, painful. This doesn't effect vision and Pt has never had this before. Pt has had this for more than a week and it is increasing in size. No available apts ion [facility] . Pt is advised to come to [facility] to be seen by provider and Pt [...] Description 06/26/2024 1:30 PM EDT Office Visit [facility] PED[facility] [address] [place] [address] Giana Isbell MD [address] [place] [address] documented as of this encounter Visit Diagnoses Not on filedocumented in this encounter Additional Health Concerns Assessment Noted Time PHQ-9 Depression Total Score: 7 07/30/19 23 10:13 AM EDT documented as of this encounter Care Teams Front Desk Manager Relationship Specialty Start Date End Date Giana Isbell MD [address] [place] [address] PCP - General Internal Medicine 09/07/18 documented as of this encounter
--- OUTSIDE RECORDS SUMMARY | 2024-05-09 07:49 | XMS_ITS | Encounter Summary ---
Author Organization [employer] Address [address] [place] [address] 7t [place] [address] Care Team Providers Care Battalion Fire Chief Name Role Phone Giana Isbell MD Primary Care Provider [phone] Encounter Details Date Type Department Care Team (Latest Contact Info) Description 12/04/2021 Abstract [facility] CONVERSIONS Dental, Provider, DDS Social [...] Description 06/26/2024 1:30 PM EDT Office Visit [facility] [address] [place] [address] Giana Isbell MD [address] [place] [address] documented as of this encounter Visit Diagnoses Not on filedocumented in this encounter Care Teams Battalion Fire Chief Relationship Specialty Start Date End Date Giana Isbell MD [address] [place] [address] PCP - General Internal Medicine 09/07/18 documented as of this encounter
--- OUTSIDE RECORDS SUMMARY | 2024-05-09 07:49 | XMS_ITS | Encounter Summary ---
Author Organization [employer] Address [address] [place] [address] 7 [place] [address] Care Team Providers Care Research Chef Name Role Phone Giana Isbell MD Primary Care Provider [phone] Reason for Visit * Reason Comments Med Refill Encounter Details Date Type Department Care Team ([facility] Contact Info) Description 03/31/2022 Refill [facility] & PEDS [address] [place] [address] Giana Isbell MD [address] [place] [address] Acquired hypothyroidism (Primary Dx); Other constipation; Depressive [...] Upcoming Encounters Date Type Department Care Team ([facility] Contact Info) Description 06/26/2024 1:30 PM EDT Office Visit [facility] MED & PEDS [address] [place] [address] Giana Isbell MD [address] [place] [address] documented as of this encounter Visit Diagnoses Diagnosis Acquired hypothyroidism- Primary Unspecified hypothyroidism Other constipation Depressive disorder Depressive disorder, not elsewhere classified Seasonal allergies Allergic rhinitis, cause unspecified Migraine without aura and without status migrainosus, not intractable documented in this encounter Care Teams Research Chef Relationship Specialty Start Date End Date Giana Isbell MD [address] [place] [address] PCP - General Internal Medicine 09/07/18 documented as of this encounter
--- OUTSIDE RECORDS SUMMARY | 2024-05-09 07:49 | XMS_ITS | Encounter Summary ---
Author Organization [email or web address] Address [address] [place] [address] 7t [place] [address] Care Team Providers Care Storage Manager Name Role Phone Giana Isbell MD Primary Care Provider [phone] Encounter Details Date Type Department Care Team (Latest Contact Info) Description 02/16/2019 Abstract [facility] CONVERSIONS Dental, Provider, DDS Social History Tobacco [...] Description 06/26/2024 1:30 PM EDT Office Visit [facility] MED & PEDS [address] [place] [address] Giana Isbell MD 505 [place] [address] documented as of this encounter Visit Diagnoses Not on filedocumented in this encounter Care Teams Storage Manager Relationship Specialty Start Date End Date Giana Isbell MD 505 [place] [address] PCP - General Internal Medicine 09/07/18 documented as of this encounter
--- OUTSIDE RECORDS SUMMARY | 2024-05-09 07:49 | XMS_ITS | Encounter Summary ---
Author Organization [employer] Address [address] 7t [place] [address] Care Team Providers Care Journeyman Painter Name Role Phone Giana Isbell MD Primary Care Provider [phone] Encounter Details Date Type Department Care Team (Late st Contact Info) Description 04/12/2024 Orders Only [facility] MEDICINE [address] [place] [address] Giana Isbell MD [address] [place] [address] Bronchopneumonia (Primary Dx) Social History Tobacco Use [...] Department Care Team ([facility] Contact Info) Description 06/26/2024 1:30 PM EDT Office Visit [facility] MED & PEDS 505 [place] [address] Giana Isbell MD [address] [place], [place] [phone] documented as of this encounter Procedures Procedure Name Priority Date/Time Associated Diagnosis Comments XR CHEST 2 VIEWS Routine 04/19/2024 8:35 AM EDT Bronchopneumonia documented in this encounter Results * XR Chest 2 Views (04/19/2024 8:35 AM EDT) Anatomical Region Laterality Modality Chest Radiographic Laura ging 04/19/2024 8:35 AM EDT Narrative 04/19/2024 9:48 AM EDT ? [facility] ?[address] ?[place] [address] ?XRay Report ? Signed ? Patient: Tory Bush ?MR#: [id number] ?? [id number] ? : 1965 ?Acct:[id number] ? Age/Sex: 58 / F ?ADM Date: 03/13/25 ? Loc: HO.LAB ? Attending Dr: Giana Isbell MD ? Ordering Physician: Giana Isbell MD ?? Date of Service: 04/19/24 ?? Procedure(s): XR chest 2V ?? Accession Number(s): [id number] ? cc: Giana Isbell MD ? EXAMINATION: ?? XR CHEST ? CLINICAL INFORMATION: ?? cough. H/o pneumonia ? COMPARISON: ?? CT angiogram chest 03/13/2024. ?? Chest radiograph 04/25/2023. ? TECHNIQUE: ?? 2 views of the chest were obtained. ? FINDINGS: ?? Left-sided chest port in place with tip extending into the cavoatrial ?? junction. This is well positioned. ? The cardiac, hilar, and mediastinal contours are normal. ? The lungs are clear bilaterally. There is no pneumothorax or pleural ?? effusion. ? There is no focal osseous or soft tissue abnormality. Cholecystectomy ?? clips present. ? XR/XR chest 2V ?? IMPRESSION: ?? 1. Well-positioned left chest port. ?? 2. No active pulmonary disease. ? Electronically signed by: ??Ant Cole MD ??04/19/2024 09:45 AM EDT RP ? Dictated By: ?Ant Cole MD ? Signed By: ?<Electronically signed by Ant Cole MD in OV> ?04/19/24 0945 ? DD/ 0835 ? TD/TT: 04/19/24 0845 ? Msw: ? Procedure Note Barbdonato, Image - 04/19/2024 [place] [address] XRay Report Signed Patient: Pat Bush#: [id number] : 1965Acct:[id number] Age/Sex: 58 / FADM Date: 04/19/24 Loc: HO.LAB Attending Dr: Giana Isbell MD Ordering Physician: Giana Isbell MD Date of Service: 04/19/24 Procedure(s): XR chest 2V Accession Number(s): [id number] cc: Giana Isbell MD EXAMINATION: XR CHEST CLINICAL INFORMATION: cough. H/o pneumonia COMPARISON: CT angiogram chest 03/13/2024. Chest radiograph 04/25/2023. TECHNIQUE: 2 views of the chest were obtained. FINDINGS: Left-sided chest port in place with tip extending into the cavoatrial junction. This is well positioned. The cardiac, hilar, and mediastinal contours are normal. The lungs are clear bilaterally. There is no pneumothorax or pleural effusion. There is no focal osseous or soft tissue abnormality. Cholecystectomy clips present. XR/XR chest 2V IMPRESSION: 1. Well-positioned left chest port. 2. No active pulmonary disease. Electronically signed by: Ant Cole MD 04/19/2024 09:45 AM EDT Dictated By: Ant Cole MD Signed By: <Electronically signed by Ant Cole MD in OV> 04/19/24 0945 DD/ TD/TT: 04/19/24 0845 Msw: Giana Isbell MD IMG XR PROCEDURES Edited Re sult - Final documented in this encounter Visit Diagnoses Diagnosis Bronchopneumonia- Primary Bronchopneumonia, organism unspecified documented in this encounter Additional Health Concerns Assessment Noted Time PHQ-9 Depression Total Score: 24 025 9:26 AM EST documented as of this encounter Care Teams Journeyman Painter Relationship Specialty Start Date End Date Giana Isbell MD [address] [place] [address] PCP - General Internal Medicine 09/07/18 documented as of this encounter
--- OUTSIDE RECORDS SUMMARY | 2024-05-09 07:49 | XMS_ITS | Encounter Summary ---
Author Organization [employer] Address [address] [facility] 7t [place] [address] Care Team Providers Care Polysomnography Technician Name Role Phone Giana Isbell MD Primary Care Provider [phone] Reason for Visit * Reason Onset Date Comments Hospital Follow-up 07/20/2022 Encounter Details Date Type Department Care Team ([facility] Contact Info) Description 07/20/2022 Telephone [facility] CHC MED & PEDS [address] [place] [address] Giana Isbell MD 505 [place] [address] Hospital Follow-up Social History Tobacco Use Types [...] a HDF appt. Pt was admitted at [facility] on 07/17/22 and discharged on 07/20/22 due to abdominal pain. documented in this encounter Plan of Treatment Upcoming Encounters Date Type Department Care Team ([facility] Contact Info) Description 06/26/2024 1:30 PM EDT Office Visit [facility] CH[facility] MED & PEDS [address] [place] [address] Giana Isbell MD [address] [place] [address] documented as of this encounter Visit Diagnoses Not on filedocumented in this encounter Care Teams Polysomnography Technician Relationship Specialty Start Date End Date Giana Isbell MD 505 [place] [address] PCP - General Internal Medicine 09/07/18 documented as of this encounter
--- OUTSIDE RECORDS SUMMARY | 2024-05-09 07:49 | XMS_ITS | Encounter Summary ---
Author Organization [employer] Address [address] 7t [place] [address] Care Team Providers Care Pediatric Physician Name Role Phone Giana Isbell MD Primary Care Provider [phone] Encounter Details Date Type Department Care Team ([facility] Contact Info) Description 02/06/2024 Orders Only [facility] CHC MED & PEDS [address] [place] [address] Giana Isbell MD 505 [place] [address] Acquired hypothyroidism (Primary Dx) Social History Tobacco [...] Upcoming Encounters Date Type Department Care Team ([facility] Contact Info) Description 06/26/2024 1:30 PM EDT Office Visit [facility] CHC MED & PEDS [address] [place] [address] Giana Isbell MD [address] [place], [place] [phone] Scheduled Orders Name Type Priority Associated Diagnoses [...] EST Narrative 02/10/2024 3:39 PM EST ? [facility] ?[address] ?[place] [address] ? Magnetic Resonance Report ? Signed with Addenda ? Patient: Tory Bush ?MR#: [id number] ?? [id number] ? : 1965 ?Acct:[id number] ? Age/Sex: 58 / F ?ADM Date: 12/30/24 ? Loc: HO.MRI ? Attending Dr: Pardeep Marcos MD ? Ordering Physician: Pardeep Marcos MD ?? Date of Service: 02/06/24 ?? Procedure(s): MR breast BI wo/w con ?? Accession Number(s): [id number] ? cc: Giana Isbell MD; Pardeep Marcos [...] ? DD/ ? TD/TT: 02/06/24 1016 ? Quarantine Officer: ? Procedure Note Donmichelle, Image - 02/13/[address] [address] Magnetic Resonance Report Signed with Fani Patient: Pat Bush#: [id number] : 1965Acct:[id number] Age/Sex: 58 / FADM Date: 02/06/24 Loc: HO.MRI Attending Dr: Pardeep Marcos MD Ordering Physician: Pardeep Marcos MD Date of Service: 02/06/24 Procedure(s): MR breast BI wo/w con Accession Number(s): [id number] cc: Giana Isbell MD; Pardeep Marcos MD [...] 02/10/24 1536 DD/ 0933 TD/TT: 02/06/24 1016 Quarantine Officer: [facility] External Provider IMG MRI PROCEDURES Edited Result - Final documented in this encounter Visit Diagnoses Diagnosis Acquired hypothyroidism- Primary Unspecified hypothyroidism documented in this encounter Additional Health Concerns Assessment Noted Time PHQ-9 Depression Total Score: 7 07/30/19 23 10:13 AM EDT documented as of this encounter Care Teams Pediatric Physician Relationship Specialty Start Date End Date Giana Isbell MD [address] [place] [address] PCP - General Internal Medicine 09/07/18 documented as of this encounter
--- OUTSIDE RECORDS SUMMARY | 2024-05-09 07:49 | XMS_ITS | Data Portability ---
Author Organization [employer] Address [address] [place] [id number] Care Team Providers Care Global Sales Director Name Role Phone [facility] Referring Provider [facility] Referring Provider Assessment Encounter Date Assessment Date Assessment LastModified by Organization Details LastModified Time 10/02/2021 10/02/2021 I have reviewed and agree with the Assessment and Plan as documented by the Spool Cleaner Hand. I provided real -time medical direction via phone for this encounter, and was available for additional phone based assistance as needed. Patient given the opportunity to ask questions. [email or web address] Not available 10/02/2021 19:13:58 04/13/2023 04/13/2023 Ms. Tory Cantrell is a 57yoF who is seen today for further evaluation of right eye irritation. Ms. Cantrell reports three days of right eye itching and watering. She denies any fevers but reports that her left eye is starting to also itch and she has some minimal right ear discomfort. Otherwise has been feeling well. VSS. Spool Cleaner Hand site uploads picture of minimally injected and tearing right eye. Exam is c/w viral conjunctivitis . Recommended ongoing OTC therapies and cool compress/hand hygeine. Red flags to be reviewed by rubber engraver. Not available 04/13/2023 10:45:55 Plan of Treatment [...] Not available Not available Not available 10/02/2021 11302 8001 SNOMED Not Available [employer] - production 03:43:36 890 hydrocodo ne Not available Not available Not available Not available 10/02/2021 5489 RxNorm Cynthia Maguire MD [address] [facility],[address], [place], [address] , [facility] [employer] 18:39:23 Medications Name Sig Start Date Stop [...] % 98 % 88 /min 18 /min 85678.8 8 g 97.6 [degF] 124 mm[Hg] 76 mm[Hg] Not Available [employer] 4 10:39:50 Date Recorded Body temperature Heart [...] mm[Hg] 120 mm[Hg] 70 mm[Hg] Not Available [employer] 2 17:37:54 Date Recorded Body weight Provider Name an d Address Organization Details Last Updated DateTime 10/02/2021 58502.01 g Shravan Mallory [address] [place] [address],[address], [place], [address], [facility] [employer] [facility] 10/02/2021 18:45:32 Social History None recorded. Functional Status None recorded. Mental Status None recorded. Family History Nothing Reported. Medical History No medical history recorded. Gynecological HistoryNo gynecological history recorded. Obstetrics History GPAL:G 0 P 0 0 0 0 Past Encounters Encounter ID Performer Location Encounter Start Date Encounter Closed Date Diagnosis/Indication Diagnosis SNOMED-CT Code Diagnosis ICD10 Code Diagnosis Note [id number] Cynthia Maguire MD [facility] - [address] [phone] 10/02/2021 16:58:56 10/21/2021 11:37:50 Pain in right heel 2820394686 522193 M79.671 possible plantar fasciitis- vs talar tendonitis [...] continue Naprosyn in am Delilah Hope MD [facility] - [address] [phone] 04/13/2023 10:39:45 04/14/2023 09:54:22 Viral conjunctivitis 07303971 B30.9 Health Concerns Section Related Observation LastModified by Organization Detai ls LastModified Time None Recorded Concern Status LastModified by Organization Details LastModified Time None Recorded Advance Directives Directive None Recorded Payers Encounter Date Sequence Insurance Name Policy Number Policy Pastor Covered Member ID Pastor Member ID Guarantor Name 10/02/2021 1 [facility] SocialRep - DOS PRIOR TO 2022 - DUAL ELIGIBLE (MEDICARE REPLACEMENT/ADV ANTAGE - HMO) Tory Cantrell [id number] Tory Cantrell 04/13/2023 1 [facility] [employer] - DOS ON OR AFTER 2022 - DUAL ELIGIBLE - [employer] OPTIONS AND ONE CARE (MEDICARE REPLACEMENT/ADV ANTAGE - HMO) Tory Cantrell [id number] Tory Cantrell Notes Date Note Type Note [...] .................. .................. .................. .................. .................. .................. ............... Spool Cleaner Hand Note: Eval for right heel pain. pt stated she has had right heel pain for about 1 month, getting worse lately. Pt states she has appointment with ortho on Tuesday- pt has HX of tendon surgeries and chronic pain. pt states pain is bottom of heel, with discomfort generalized around ankle. no other new pain. pt denied fever/chills, denied sob/cp. [facility] recommended ice, elevate and we gave 15mg toradol for temp relief of pain. pt to follow up with pcp .................. .................. .................. .................. .................. .................. .................. ............... Disposition: FulfilledSEGMD: As above- hx chronic pain- On Naprosyn 500 mg q AM- denies hx CKD- not on anticoagulants- denies numbness/ tingling- worse w/ palpation/ ambulation/ WB Cynthia Maguire MD [address] [place] [address],[address], [place], [address], [employer] 10/03/2021 17:32:32 04/13/2023 text/html HPI: HX Depression,migrain es. Three day history of eye irritation redness with drainage. No fever.slight ear discomfort. .................. .................. .................. .................. .................. .................. .................. ............... [facility] Nurse Triage Notes (Yvette Guerra): Comments: HPI reviewed. No further information reviewed to process visit. .................. .................. .................. .................. .................. .................. .................. ............... Spool Cleaner Hand Note From Devan Brown: Pt co irrigation [...] Pt education on signs indicating the ER. Spool Cleaner Hand Allergies: Acetaminophen, Penicillin .................. .................. .................. .................. .................. .................. .................. ............... Disposition: Fulfilled Delilah Hope MD [address] [facility],[address], [place], [address], [employer] 04/13/2023 16:03:59 OBGyn Episode No OBEpisode recorded.
--- OUTSIDE RECORDS SUMMARY | 2024-05-09 07:49 | XMS_ITS | Encounter Summary ---
Author Organization [employer] Address [address] [facility] 7t [place] [address] Care Team Providers Care Insights Analyst Name Role Phone Giana Isbell MD Primary Care Provider [phone] Reason for Visit * Reason Onset Date Comments Nurse Triage 03/01/2023 Encounter Details Date Type Department [facility] Team ([facility] Description 03/01/2023 Telephone [facility] MEDICINE [address] [place] [address] Giana Isbell MD [address] [place] [address] Nurse Triage Social History Tobacco Use Types [...] 03/01/2023 12:46 PM EST Triage call with [employer] Electrical Person [place] [id number] Pt reports having surgery and not having any pain medication. Pt had a partial left thyroidectomy 02/28/23 @ [facility] and oxycodone 5mg po was ordered . [...] Description 06/26/2024 1:30 PM EDT Office Visit [facility] MED & PEDS [address] [place], [place] [phone] Giana Isbell MD 505 [place] [address] documented as of this encounter Visit Diagnoses Not on filedocumented in this encounter Additional Health Concerns Assessment Noted Time PHQ-9 Depression Total Score: 7 07/30/19 23 10:13 AM EDT documented as of this encounter Care Teams Insights Analyst Relationship Specialty Start Date End Date Giana Isbell MD [address] [place] [address] PCP - General Internal Medicine 09/07/18 documented as of this encounter
--- OUTSIDE RECORDS SUMMARY | 2024-05-09 07:49 | XMS_ITS | Encounter Summary ---
Author Organization [employer] Address [address] 7t [place] [address] Care Team Providers Care Hosiery Knitter Name Role Phone Giana Isbell MD Primary Care Provider [phone] Encounter Details Date Type Department Care Team ([facility] st Contact Info) Description 04/05/2023 Telephone [facility] MEDICINE [address] [place] [address] Giana Isbell MD 505 [place] [address] Social History Tobacco Use Types Packs/Day Years [...] Description 06/26/2024 1:30 PM EDT Office Visit [facility] MED & PEDS [address] [place] [address] Giana Isbell MD [address] [place] [address] documented as of this encounter Visit Diagnoses Not on filedocumented in this encounter Additional Health Concerns Assessment Noted Time PHQ-9 Depression Total Score: 7 07/30/19 23 10:13 AM EDT documented as of this encounter Care Teams Hosiery Knitter Relationship Specialty Start Date End Date Giana Isbell MD [address] [place] [address] PCP - General Internal Medicine 09/07/18 documented as of this encounter
--- OUTSIDE RECORDS SUMMARY | 2024-05-09 07:49 | XMS_ITS | Encounter Summary ---
Author Organization [employer] Address [address] [place] [address] 7 [place] [address] Care Team Providers Care Ethnology Teacher Name Role Phone Giana Isbell MD Primary Care Provider Reason for Referral * Imaging (Urgent) - Closed Specialty Diagnoses / Procedures Referred By Ervin chávez Referred To Contact Radiology Diagnoses Elevated alkaline phosphatase level Procedures US Abdomen Complete Giana Isbell MD [address] [place] [address] Phone: tel: fax: [address] Phone: tel: fax: Referral ID Status Reason Start Date Expiration Date Visits Re quested Visits Authorized [id number] Closed 02/17/2023 02/17/2024 1 1 Encounter Details Date Type Department Care Team (Late st Contact Info) Description 02/17/[address] [facility] CHC MED & PEDS [address] [place], [place] [phone] Giana Isbell MD [address] [place], [place] [phone] Elevated alkaline phosphatase level (Primary Dx); Left [...] Upcoming Encounters Date Type Department Care Team ([facility] st Contact Info) Description 06/26/2024 1:30 PM EDT Office Visit [facility] MED & PEDS [address] [place] [address] Giana Isbell MD [address] [place] [address] documented as of this encounter Procedures Procedure Name Priority Date/Time Associated Diagnosis Comments US ABDOMEN COMPLETE Urgent 03/21/2023 9 :29 AM EST Elevated alkaline phosphatase level documented in this encounter Results * US Abdomen Complete (03/21/2023 9:29 AM EST) Anatomical Region Laterality Modality Abdomen Ultrasound 03/21/2023 9:29 AM EST Narrative 03/22/2023 9:16 AM EST ? [facility] ?[address] ?[place] [address] ? Ultrasound Report ? Signed ? Patient: Tamia Sánchez,Tory ?MR#: [id number] ?? [id number] ? : 1965 ?Acct:[id number] ? Age/Sex: 57 / F ?ADM Date: 03/21/23 ? Loc: HO.US ? Attending Dr: Giana Isbell MD ? Ordering Physician: Giana Isbell MD ?? Date of Service: 03/21/23 ?? Procedure(s): US abdomen complete ?? Accession Number(s): [id number] ? cc: Giana Isbell MD ? EXAMINATION: [...] 03/22/[address] ? DD/ 0929 ? TD/TT: ? Ice Guard Inspector: ? Procedure Note Trish, Image - 03/22/2023 [place] [address] Ultrasound Report Signed Patient: Pat Bush#: [id number] : 1965Acct:[id number] Age/Sex: 57 / FADM Date: 03/21/23 Loc: HO.US Attending Dr: Giana Isbell MD Ordering Physician: Giana Isbell MD Date of Service: 03/21/23 Procedure(s): US abdomen complete Accession Number(s): [id number] cc: Giana Isbell MD EXAMINATION: US ABDOMEN [...] MD in OV> 03/22/[address]11 DD/ 8 TD/TT: Ice Guard Inspector: us Giana Isbell MD IMG US PROCEDURES Final Res ult documented in this encounter Visit Diagnoses Diagnosis Elevated alkaline phosphatase level- Primary Left upper quadrant abdominal pain documented in this encounter Additional Health Concerns Assessment Noted Time PHQ-9 Depression Total Score: 7 07/30/19 23 10:13 AM EDT documented as of this encounter Care Teams Ethnology Teacher Relationship Specialty Start Date End Date Giana Isbell MD [address] [place] [address] PCP - General Internal Medicine 09/07/18 documented as of this encounter
--- OUTSIDE RECORDS SUMMARY | 2024-05-09 07:49 | XMS_ITS | Encounter Summary ---
Author Organization [employer] Address [address] [place] [address] 7t [place] [address] Care Team Providers Care Heating And Air Conditioning Mechanic Name Role Phone Giana Isbell MD Primary Care Provider [phone] Encounter Details Date Type Department Care Team (Latest Contact Info) Description 02/15/2018 Abstract [facility] CONVERSIONS Dental, Provider, DDS Social History [...] 1:30 PM EDT Office Visit [facility] CHC MED & PEDS [address] [place] [address] Giana Isbell MD [address] [place] [address] documented as of this encounter Visit Diagnoses Not on filedocumented in this encounter Care Teams Heating And Air Conditioning Mechanic Relationship Specialty Start Date End Date Giana Isbell MD [address] [place] [address] PCP - General Internal Medicine 09/07/18 documented as of this encounter
--- OUTSIDE RECORDS SUMMARY | 2024-05-09 07:49 | XMS_ITS | Encounter Summary ---
Author Organization [employer] Address [address] [place] [address] [address] [place] [address] Care Team Providers Care Translator Interpreter Name Role Phone Giana Isbell MD Primary Care Provider [phone] Encounter Details Date Type Department Care Team (Latest Contact Info) Description 11/13/2020 Abstract [facility] CONVERSIONS Dental, Provider, DDS Social History [...] Description 06/26/2024 1:30 PM EDT Office Visit [facility] [address] [place] [address] Giana Isbell MD [address] [place] [address] documented as of this encounter Visit Diagnoses Not on filedocumented in this encounter Care Teams Translator Interpreter Relationship Specialty Start Date End Date Giana Isbell MD [address] [place] [address] PCP - General Internal Medicine 09/07/18 documented as of this encounter
--- OUTSIDE RECORDS SUMMARY | 2024-05-09 07:50 | XMS_ITS | Encounter Summary ---
Author Organization [employer] Address [address] [facility] 7t [place] [address] Care Team Providers Care Roving Teller Name Role Phone Giana Isbell MD Primary Care Provider [phone] Encounter Details Date Type Department Care Team ([facility] st Contact Info) Description 05/06/2023 Orders Only [facility] [address] [place] [address] Giana Isbell MD [address] [place] [address] Acquired hypothyroidism (Primary Dx) Social History Tobacco [...] Description 06/26/2024 1:30 PM EDT Office Visit [facility] MED [facility]ED[facility] [address] [place] [address] Giana Isbell MD [address] [place], [place] [phone] documented as of this encounter Procedures Procedure Name Priority Date/Time Associated Diagnosis Comments TSH W/REFLEX TO FT4 Routine 02/06/2024 10:45 AM EST Acquired hypothyroidism documented in this encounter Results * (ABNORMAL) TSH W/Reflex to FT4 (02/06/2024 10:45 AM EST) TSH reflex Free T4 10.06(H) 0.32 - 4.0 uIU/mL [facility] Blood Venous blood specimen / Unknown 02/06/2024 10:45 AM EST 02/06/2024 10:45 AM EST Giana Isbell MD LAB BLOOD ORDERABLES Final Result [facility] [address] [place] [address] [phone] documented in this encounter Visit Diagnoses Diagnosis Acquired hypothyroidism- Primary Unspecified hypothyroidism documented in this encounter Additional Health Concerns Assessment Noted Time PHQ-9 Depression Total Score: 7 07/30/19 23 10:13 AM EDT documented as of this encounter Care Teams Roving Teller Relationship Specialty Start Date End Date Giana Isbell MD [address] [place] [address] PCP - General Internal Medicine 09/07/18 documented as of this encounter
--- OUTSIDE RECORDS SUMMARY | 2024-05-09 07:50 | XMS_ITS | Encounter Summary ---
Author Organization [employer] Address [address] [facility] [address] [place] [address] Care Team Providers Care Residential Finish Carpenter Name Role Phone Giana Isbell MD Primary Care Provider [phone] Reason for Referral * Consultation (Routine) - Authorized Specialty Diagnoses / Procedures Referred By Contharman t Referred To Contact Cardiology Diagnoses SOB (shortness of breath) Giana Isbell MD [address] [place] [address] Phone: tel: fax: Kavon Berumen MD [address] [facility] Floor [address] [place] [address] Phone: tel: fax: Referral ID Status Reason Start Date Expiration Date Visits Requested Visits Authorized [id number] Authorized Specialty Services Required 12/18/2024 1 1 Encounter Details Date Type Department Care Team (Late st Contact Info) Description 12/19/2023 Orders Only [facility] [address] [place] [address] Giana Isbell MD [address] [place], [place] [phone] SOB (shortness of breath) (Primary Dx) Social [...] Description 06/26/2024 1:30 PM EDT Office Visit [facility] MED [facility] PEDS [address] [place] [address] Giana Isbell MD [address] [place] [address] Scheduled Referrals Name Type Priority Associated Diagnoses [...] EST Narrative 01/18/2024 9:40 AM EST ? [facility] ? [address] ?[place] [address] ? Ultrasound Report ? Signed with Addenda ? Patient: Tamia SánchezTory ?MR#: [id number] ? : 1965 ?Acct:[id number] ? Age/Sex: 58 / F ?ADM Date: 01/18/24 ? Loc: HO.MAMMO ? Attending Dr: Pardeep Marcos MD ? Ordering Physician: Pardeep Marcos MD ?? Date of Service: 01/18/24 ?? Procedure(s): US breast ndl core biopsy RT ?? Accession Number(s): [id number] ? cc: Giana Isbell MD; Pardeep Marcos [...] Surgical Consult ? Electronically signed by: ??Carissa Rzaa DO ??01/25/2024 08:54 AM EST ?? RP ? Addendum Dictated By: ?Carissa Grahamninfa, DO ? Addendum Signed By: ? <Electronically signed by Carissa Rzaa, DO in OV> ? 01/25/24 0854 ?? [...] DD/ 0800 ? TD/TT: 01/18/24 0835 ? Umbrella Cutter: ? Procedure Note Barbter, Image - 01/25/2024 [facility] [address] [place] [address] [place] [address] Ultrasound Report Signed with Fani Patient: Pat Bush#: [id number] : 1965Acct:[id number] Age/Sex: 58 / FADM Date: 01/18/24 Loc: ADELITA Attending Dr: Pardeep Marcos MD Ordering Physician: Pardeep Marcos MD Date of Service: 01/18/24 Procedure(s): US breast ndl core biopsy RT Accession Number(s): [id number] cc: Giana Isbell MD; Pardeep Marcos MD [...] OV> 01/18/2437 DD/ 08 TD/TT: 01/18/24 0835 Umbrella Cutter: [employer] External Provider IMG US PROCEDURES Edited Result - Final * BI Mammogram Diagnostic Tomosynthesis Right (01/18/2024 8:00 AM EST) Anatomical Region Laterality Modality Breast Right Mammography 01/18/2024 8:00 AM EST Narrative 01/18/2024 9:40 AM EST ? [facility] [place] ? [address] ?[place] [address] ? Mammography Report ? Signed with Addenda ? Patient: Tory Bush ?MR#: [id number] ?? [id number] ? : 1965 ?Acct:[id number] ? Age/Sex: 58 / F ?ADM Date: 12/11/24 ? Loc: HO.MAMMO ? Attending Dr: Pardeep Marcos MD ? Ordering Physician: Pardeep Marcos MD ?Results: ? Date of Service: 01/18/24 ?Follow Up: ? Procedure(s): MM tomosynthesis diagnostic RT ?? Accession Number(s): [id number] ? cc: Giana Isbell MD; Pardeep Marcos [...] DD/ 0800 ? TD/TT: 01/18/24 0835 ? Umbrella Cutter: ? Procedure Note Donhernanter, Image - 01/25/2024 [facility] [address] [place] [address] Mammography Report Signed with Fani Patient: Pat Bush#: [id number] : 1965Acct:[id number] Age/Sex: 58 / FADM Date: 01/18/24 Loc: ADELITA Attending Dr: Pardeep Marcos MD Ordering Physician: Pardeep Marcosesults: Date of Service: 01/18/24Follow Up: Procedure(s): MM tomosynthesis diagnostic RT Accession Number(s): [id number] cc: Giana Isbell MD; Pardeep Macros MD ADDENDUM ADDENDUM #1 ADDENDUM: Right breast [...] OV> 01/18/2437 DD/ 0800 TD/TT: 01/18/24 0835 Umbrella Cutter: [employer] External Provider IMG BI PROCEDURES Edited Result - Final documented in this encounter Visit Diagnoses Diagnosis SOB (shortness of breath)- Primary Shortness of breath documented in this encounter Additional Health Concerns Assessment Noted Time PHQ-9 Depression Total Score: 7 07/30/19 23 10:13 AM EDT documented as of this encounter Care Teams Residential Finish Carpenter Relationship Specialty Start Date End Date Giana Isbell MD [address] [place] [address] PCP - General Internal Medicine 09/07/18 documented as of this encounter
--- OUTSIDE RECORDS SUMMARY | 2024-05-09 07:50 | XMS_ITS | Clinical Summary ---
Author Organization [employer] Address [address] [place] [address] Care Team Providers Care Lodging Facilities Manager Name Role Phone Giana Isbell MD [...] 2 times daily. 60 tablet 11 024 Active Ketotifen Fumarate (Zaditor) 0.035 % solution Administer 1 drop into affected eye(s) if needed in the morning and at bedtime (itching). 10 mL 024 Active pantoprazole (ProtoNix) 20 MG EC tablet TAKE 1 TABLET BY MOUTH EVERY MORNING NEEDED FOR HEARTBURN 08/26/2 024 Active fluticasone (Flonase) 50 MCG/ACT nasal sprayIndications: [...] if needed for wheezing. 75 mL 11 025 2025 Active capsaicin (Zostrix) 0.025 % [...] bedtime for dry eyes. 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 OPTOMETRY [address] [place] [address] Tarirlanda, Dee, OD Dry eyes, bilateral (Primary Dx); Regular astigmatism, bilateral 04/17/2024 Travel 04/15/2024 Refill [facility] MED & PEDS [address] [place] [address] Giana Isbell MD Chronic pain of left knee; Depressive disorder 04/12/2024 Orders Only [facility] MEDICINE [address] [place] [address] Giana Isbell MD Bronchopneumonia (Primary Dx) 04/02/[address] [address] Giana Isbell MD Medication Question 03/28/2024 9:15 AM EST Office Visit [facility] MED & PEDS [address], [place] [phone] Giana Isbell MD Acute cough (Primary Dx); Acquired hypothyroidism; SOB (shortness of breath); Bronchopneumonia 03/28/2024 Travel 03/20/2024 Patient Outreach [facility] MEDICINE [address] [place] [phone] Giana Isbell MD Transition Of Care (Tcm) (HDF scheduled and SDOH screening negative and Tobacco screening negative) 03/19/2024 Patient Outreach [facility] MEDICINE [address] [place] [phone] Giana Isbell MD Transition Of Care (Tcm) (HDF unscheduled LVM ) 03/19/[address] [facility] MEDICINE [address] [place] [address] [phone] Giana Isbell MD Hospital Follow-up 03/13/2024 Orders Only GENERIC EXTERNAL DATA DEPARTMENT Provider, Generic External Data 02/24/2024 Telephone [facility] MED & PEDS [address], [place] [phone] Lou Gonzalez MD 02/23/2024 [facility] Health Information Management [address] [place], [place] [phone] Giana Isbell MD 02/22/2024 3:30 PM EST Office Visit [facility] MED & PEDS [address] [place] [address] Giana Isbell MD Functional urinary incontinence (Primary Dx); Infiltrating ductal carcinoma of right breast ([facility]/HCC) 02/22/2024 Orders Only [facility] External Provider, [facility] 02/22/2024 Travel 02/21/2024 Telephone [facility] MED & PEDS [address], [place] [phone] Giana Isbell MD Chart Prep 02/17/2024 Orders Only [facility] Information Management [address], [place] [phone] ProviderKathi MD 02/16/2024 Telephone [facility] MED & PEDS [address], [place] [phone] Giana Isbell MD Transition Of Care (Tcm) 02/16/2024 Orders Only GENERIC EXTERNAL DATA DEPARTMENT Provider, Generic External Data 02/15/2024 Orders Only GENERIC EXTERNAL DATA DEPARTMENT Provider, Generic External Data 02/10/2024 Orders Only [facility] External Provider, [facility] 02/10/2024 Telephone [facility] MED & PEDS [address], [place] [phone] Nicole Paz, JESSICA Results from Last 3 Months Immunizations Name Administration [...] Upcoming Encounters Date Type Department Care Team ([facility] st Contact Info) Description 06/26/2024 1:30 PM EDT Office Visit [facility] MED & PEDS [address] [place] [address] Giana Isbell MD [address] [place] [address] Health Maintenance Due Date Last Done Comments [...] 03/28/2024 Depression Screening 03/28/2025 03/28/2024, 03/28/19 25 Mammogram 04/09/2025 04/09/2024, 02/07, 02/10/2024, Additional history exists Tobacco Screening 04/17/2025 04/17/2024 Colonoscopy 12/01/2025 12/02/2015 Colorectal Cancer Screening 12/01/2025 Lipid Panel 08/04/2026 08/04/2021, 12/08, 10/31/2020 Dental X-Ray: Full Mouth 12/06/2026 12/06/2023, 10/0 08/2020 Cervical Cancer Screening 10/24/2028 HPV/Cotest 10/24/2028 [...] VIEWS Routine 04/19/2024 8:35 AM EDT Bronchopneumonia BI US BREAST LIMITED RIGHT Routine 04/09/2024 [...] AM EST IR CVC INSERT TUNNEL W PRT/BALL SHAGGER Routine 02/16/2024 7:46 AM EST GLUCOSE, WHOLE BLOOD Routine 02/16/2024 7:06 AM EST MAGNESIUM Routine 02/15/2024 2:03 PM EST COMPREHENSIVE METABOLIC PANEL Routine 02/15/2024 2:03 PM EST CBC WITH AUTO DIFFERENTIAL Routine 02/15/2024 2:03 PM EST BI US BREAST LIMITED LEFT Routine 02/10/2024 12:15 PM EST PANORAMIC RADIOGRAPHIC IMAGE Routine 12/06/2023 [...] Recently Relevant to Health Maintenance Results * XR Chest 2 Views (04/19/2024 8:35 AM EDT) Anatomical Region Laterality Modality Chest Radiographic Laura ging 04/19/2024 8:35 AM EDT Narrative 04/19/2024 9:48 AM EDT ? [facility] ?[address] ?[place] [address] ?XRay Report ? Signed ? Patient: Tamia Sánchez,Tory ?MR#: [id number] ?? [id number] ? : 1965 ?Acct:[id number] ? Age/Sex: 58 / F ?ADM Date: 03/13/25 ? Loc: HO.LAB ? Attending Dr: Giana Isbell MD ? Ordering Physician: Giana Isbell MD ?? Date of Service: 04/19/24 ?? Procedure(s): XR chest 2V ?? Accession Number(s): [id number] ? cc: Giana Isbell MD ? EXAMINATION: [...] DD/ 0835 ? TD/TT: 04/19/24 0845 ? Army Manager: ? Procedure Note Trish, Image - 04/19/[address] [address] XRay Report Signed Patient: Pat Bush#: [id number] : 1965Acct:[id number] Age/Sex: 58 / FADM Date: 04/19/24 Loc: HO.LAB Attending Dr: Giana Isbell MD Ordering Physician: Giana Isbell MD Date of Service: 04/19/24 Procedure(s): XR chest 2V Accession Number(s): [id number] cc: Giana Isbell MD EXAMINATION: XR CHEST [...] Cole MD in OV> 04/19/24 0945 DD/ 0835 TD/TT: 04/19/24 0845 Army Manager: Giana Isbell MD IMG XR PROCEDURES Edited Re sult - Final * BI US Breast Limited Right (04/09/2024 12:30 PM EST) Anatomical Region Laterality Modality Breast Right Ultrasound 04/09/2024 12:3 0 PM EST Narrative 04/09/2024 1:08 PM EST ? [facility] [place] ? [address] ?[place] [address] ? Ultrasound Report ? Signed ? Patient: Tamia Sánchez,Tory ?MR#: [id number] ?? [id number] ? : 1965 ?Acct:[id number] ? Age/Sex: 58 / F ?ADM Date: 03/03/25 ? Loc: HO.MAMMO ? Attending Dr: Rhona Badillo MD ? Ordering Physician: Rhona Badillo MD ?? Date of Service: 04/09/24 ?? Procedure(s): US breast RT limited mamm only ?? Accession Number(s): [id number] ? cc: Giana Isbell MD; Rhona Badillo [...] DD/ 1230 ? TD/TT: 04/09/24 1241 ? Army Manager: ? Procedure Note Eliud Chambers - 04/09/2024 [facility] [address] [place] [address] Ultrasound Report Signed Patient: Pat Bush#: [id number] : 1965Acct:[id number] Age/Sex: 58 / FADM Date: 04/09/24 Loc: HO.MAMMO Attending Dr: Rhona Badillo MD Ordering Physician: Rhona Badillo MD Date of Service: 04/09/24 Procedure(s): US breast RT limited mamm only Accession Number(s): [id number] cc: Giana Isbell MD; Rhona Badillo MD [...] 04/09/24 1305 DD/ 1230 TD/TT: 04/09/24 1241 Army Manager: us [facility] External Provider IMG US PROCEDURES Final Result * Lactic Acid (03/13/2024 6:39 PM EST) Lactic Acid 1.0 0.5 - 2.0 mmol/L [facility] 03/13/2024 6:39 PM EST 03/13/2024 6:41 PM EST us Generic External Data Provider LAB BLOOD ORDERAB LES Final Result [facility] [address] [facility] [place] [address] [phone] * CTA Chest PE Protocal (03/13/2024 4:24 PM EST) Anatomical Region Laterality Modality Body, Chest Computed Tomogra phy 03/13/2024 4:24 PM EST Narrative 03/13/2024 5:03 PM EST ? [facility] ?[address] ?[place] [address] ? CT Scan Report ? Signed ? Patient: Tory Bush ?MR#: [id number] ?? [id number] ? : 1965 ?Acct:[id number] ? Age/Sex: 58 / F ?ADM Date: 03/13/24 ? Loc: HO.ED ? Attending Dr: ? Ordering Physician: Kristi Bazan ?? Date of Service: 03/13/24 ?? Procedure(s): CT angio chest PE protocol ?? Accession Number(s): [id number] ? cc: Giana Isbell MD; Kristi Bazan ? Report Number: ?? [id number]: Total DLP = ??202.00 mGy-cm ?? EXAMINATION: [...] DD/ 1624 ? TD/TT: 03/13/24 1642 ? Army Manager: ? Procedure Note Donotuseinterpreter, Image - 03/13/[address] [address] [address] Scan Report Signed Patient: Pat Bush#: [id number] : 1965Acct:[id number] Age/Sex: 58 / FADM Date: 03/13/24 Loc: HO.ED Attending Dr: Ordering Physician: Kristi Bazan Date of Service: 03/13/24 Procedure(s): CT angio chest PE protocol Accession Number(s): [id number] cc: Giana Isbell MD; Kristi Bazan Report Number: [id number]: Total DLP = 202.00 mGy-cm EXAMINATION: CT [...] 03/13/24 1700 DD/ 1624 TD/TT: 03/13/24 1642 Army Manager: [facility] External Provider IMG CT PROCEDURES Final Result * High Sensitivity Troponin I (03/13/2024 4:05 PM EST) Only the most recent of2 resultswithin the time period is included. TROPONIN I HIGH SENSITIVITY 5.8 <3.5 - 17.0 ng/L [facility] Comment:The Dinh high sens itivity Troponin-I results should beused in conjunction with other diagnostic information suchas ECG, clinical observations and information, and patientsymptoms to aid in the diagnosis of RI. 03/13/2024 4:05 PM EST 03/13/2024 4:09 PM EST Generic External Data Provider LAB BLOOD ORDERAB LES Final Result Performing Organization Address [facility] Co de Phone Number [facility] [address] [place] [phone] * D Dimer High Sensitivity (03/13/2024 2:52 PM EST) Pathologist [facility] D Dimer High Sensitivity 349 NG/ML [facility] Comment:D-DIMER HS REFERENCE RANGENote: Our [...] ORDERAB LES Final Result Performing Organization Address [facility] Co de Phone Number [facility] [address] [place] [phone] * (ABNORMAL) Complete Blood Count Manual Diff (03/13/2024 2:52 PM EST) Pathologist [facility] White Blood Count 7.5 4.8 - 10.8 X10*3/uL [facility] Red Blood Count 4.75 4.20 - 5.50 X10*6/uL [facility] Hemoglobin 14.2 12.0 - 16.0 g/dl [facility] Hematocrit 41.9 37.0 - 47.0 % [facility] Mean Corpuscular Volume 88.2 80.0 - 98.0 fL [facility] Mean Corpuscular Hemoglobin 29.9 27.0 - 33.0 pg [facility] Mean Corpuscular HGB Conc 33.9 31.0 - 35.0 g/dl [facility] Red Cell Distribution Width 14.5 11.0 - 16.0 % [facility] Platelet Count 148(L) 160 - 400 X10*3/uL [facility] Mean Platelet Volume 9.7 9.4 - 12.3 fL [facility] NRBC Pct Auto 0.0 0.0 - 0.2 /100WBC [facility] NRBC Abs Auto 0.000 0.0 - 0.012 X10*3/uL [facility] Neutrophils % Manual 70 45 - 73 % [facility] Band Neutrophils Percent 2(L) 3 - 5 % [facility] Lymphocytes Percent Manual 26 20 - 40 % [facility] Monocytes Percent Manual 1(L) 2 - 11 % [facility] EOSINOPHILS % MANUAL 1 0 - 4 % [facility] NEUTROPHILS ABSOLUTE MANUAL 5.4 2.0 - 8.3 X10*3/uL [facility] LYMPHOCYTES ABSOLUTE MANUAL 2.0 1.2 - 4.9 X10*3/uL [facility] MONOCYTES ABSOLUTE MANUAL 0.1 0.1 - 1.2 X10*3/uL [facility] EOSINOPHILS ABSOLUTE MANUAL 0.1 0.0 - 0.4 X10*3/uL [facility] Platelet Estimate NORMAL [facility] Platelet Morphology Comment NORMAL [facility] RBC Morphology NORMAL [facility] Toxic Granulation [facility] Toxic Vacuolation [facility] Dohle Bodies PRESENT [facility] 03/13/2024 2:52 PM EST 03/13/2024 3:00 PM EST us Generic External Data Provider LAB BLOOD ORDERAB LES Final Result [facility] [address] [place] [address] [phone] * SARS-CoV-2 RNA, Influenza A/B, and RSV RNA, Ql NAAT (03/13/2024 2:52 PM EST) [facility] Influenza A PCR NEGATIVE Negative [facility] Influenza B PCR NEGATIVE Negative [facility] Resp Syncy Virus RNA Qual PCR NEGATIVE Negative [facility] SARS COV2 PCR NEGATIVE Negative [facility] Comment:All test results mus t [...] use by authorized laboratories.Testing performed on the [employer] GeneXpert utilizingreal-time RT-PCR.All SARS CoV2 and positive influenza A/B results arereported to [facility]. 03/13/2024 2:52 PM EST 03/13/2024 3:00 PM EST us Generic External Data Provider LAB MICROBIOLOGY - GENERAL ORDERABLES Final Result [facility] [address] [place] [phone] * (ABNORMAL) CBC auto differential (03/13/2024 2:52 PM EST) Only the most recent of2 resultswithin the time period is included. [facility] White Blood Count 7.5 4.8 - 10.8 X10*3/uL [facility] Red Blood Count 4.75 4.20 - 5.50 X10*6/uL [facility] Hemoglobin 14.2 12.0 - 16.0 g/dl [facility] Hematocrit 41.9 37.0 - 47.0 % [facility] Mean Corpuscular Volume 88.2 80.0 - 98.0 fL [facility] Mean Corpuscular Hemoglobin 29.9 27.0 - 33.0 pg [facility] Mean Corpuscular HGB Conc 33.9 31.0 - 35.0 g/dl [facility] Red Cell Distribution Width 14.5 11.0 - 16.0 % [facility] Platelet Count 148(L) 160 - 400 X10*3/uL [facility] Mean Platelet Volume 9.7 9.4 - 12.3 fL [facility] Neutrophils Percent Auto 76.3(H) 45 - 73 % [facility] Imm Gran Pct Auto 0.3 0.0 - 0.4 % [facility] Lymphocytes Percent Auto 17.8(L) 20 - 40 % [facility] Monocytes Percent Auto 3.3 2 - 11 % [facility] Eosinophils Percent Auto 1.9 0 - 4 % [facility] Basophils Percent Auto 0.4 0 - 2 % [facility] NRBC Pct Auto 0.0 0.0 - 0.2 /100WBC [facility] Neutrophils Absolute Auto 5.8 2.0 - 8.3 x10*3/uL [facility] Imm Gran Abs Auto 0.02 0.00 - 0.03 X10*3/uL [facility] Lymphocytes Absolute Auto 1.3 1.2 - 4.9 X10*3/uL [facility] Monocytes Absolute Auto 0.3 0.1 - 1.2 X10*3/uL [facility] Eosinophils Absolute Auto 0.1 0.0 - 0.4 X10*3/uL [facility] Basophils Absolute Auto 0.0 0.0 - 0.2 X10*3/uL [facility] NRBC Abs Auto 0.000 0.0 - 0.012 X10*3/uL [facility] 03/13/2024 2:52 PM EST 03/13/2024 3:00 PM EST us Generic External Data Provider LAB BLOOD ORDERAB LES Edited Result - Final [facility] [address] [place] [address] [phone] * Prothrombin Time-INR (03/13/2024 2:52 PM EST) Pathologist [facility] Prothrombin Time 11.1 10.9 - 12.4 SEC [facility] INTERNATIONAL NORM RATIO 1.0 0.9 - 1.1 [facility] Comment:INTERNATIONAL NORMAL IZED RATIO (INR) [...] ORDERAB LES Final Result Performing Organization Address [facility] Co de Phone Number [facility] [address] [place] [phone] * B Type Natriuretic Peptide (BNP) (03/13/2024 2:52 PM EST) [facility] B Type Natriuretic Peptide <10 <100 pg/mL [facility] Comment:For those patients w ho are being treated with Natrecor(nesiritide, recombinant BNP), BNP testing should beperformed at least two hours post treatment in order toensure that only endogenous levels of BNP are detected. 03/13/2024 2:52 PM EST 03/13/2024 3:00 PM EST Generic External Data Provider LAB BLOOD ORDERAB LES Final Result Performing Organization Address [facility] Co de Phone Number [facility] [address] [place] [phone] * Magnesium (03/13/2024 2:52 PM EST) Only the most recent of2 resultswithin the time period is included. [facility] Magnesium 1.9 1.6 - 2.6 mg/dL [facility] 03/13/2024 2:52 PM EST 03/13/2024 3:00 PM EST Generic External Data Provider LAB BLOOD ORDERAB LES Final Result Performing Organization Address [facility] de Phone Number [facility] [address] [place] [phone] * (ABNORMAL) Hepatic Function Panel (03/13/2024 2:52 PM EST) Bilirubin, Total 0.5 0.0 - 1.0 mg/dL [facility] Bilirubin, Direct 0.1 0.0 - 0.5 mg/dL [facility] Aspartate Amino Transferase 33(H) 5 - 31 U/L [facility] Comment:Slight Hemolysis.Int erpret result with caution. Alanine Aminotransferase 38(H) 0 - 31 U/L [facility] Total Protein 6.7 6.5 - 8.0 g/dL [facility] Albumin Level 3.7 3.5 - 5.0 g/dL [facility] Alkaline Phosphatase 161(H) 39 - 117 U/L [facility] 03/13/2024 2:52 PM EST 03/13/2024 3:00 PM EST Generic External Data Provider LAB BLOOD ORDERAB LES Final Result Performing Organization Address [facility] de Phone Number [facility] [address] [place] [phone] * (ABNORMAL) Basic Metabolic Panel (03/13/2024 2:52 PM EST) Sodium 140 135 - 145 mmol/L [facility] Potassium 4.0 3.3 - 5.1 mmol/L [facility] Comment:Slight Hemolysis.Int erpret result with caution. Chloride 109(H) 96 - 108 mmol/L [facility] Carbon Dioxide 22 22 - 29 mmol/L [facility] Anion Gap 13 12 - 20 [facility] Urea Nitrogen (BUN) 20(H) 9 - 16 mg/dL [facility] Creatinine, Serum 0.93 0.5 - 1.4 mg/dL [facility] Creatinine Clr Calc Pharmacy 54.5 [facility] Comment:Provided height and weight: 160.02 cm,58.967 kg.eGFR (calculated from the MDRD study equation) and eCrCl(calculated from the Cockcroft-Gault equation) are based ondifferent parameters and may not yield comparable results.If eCrCl result is absurd, please check patient'sheight/weight. Estimated Glomerular Filt Rate >60 [facility] Comment:Chronic Kidney Disea se: Estimated GFR < 60 mL/min/[id number] Kidney Disease: Estimated GFR < 15 mL/min/1.73m2 Glucose 123(H) 60 - 115 mg/dL [facility] Calcium 9.0 8.4 - 10.2 mg/dL [facility] 03/13/2024 2:52 PM EST 03/13/2024 3:00 PM EST us Generic External Data Provider LAB BLOOD ORDERAB LES Final Result Performing Organization Address City/State/[facility] Co de Phone Number [facility] [address] [place] [phone] * XR Chest 1 View (03/13/2024 2:39 PM EST) Anatomical Region Laterality Modality Chest Radiographic Laura ging 03/13/2024 2:39 PM EST Narrative 03/13/2024 3:51 PM EST ? [facility] ?[address] [place] [address]. ?[place] [address] ?XRay Report ? Signed ? Patient: Tamia Sánchez,Tory ?MR#: [id number] ?? [id number] ? : 1965 ?Acct:[id number] ? Age/Sex: 58 / F ?ADM Date: 02/04/25 ? Loc: HO.ED ? Attending Dr: ? Ordering Physician: Kristi Bazan ?? Date of Service: 03/13/24 ?? Procedure(s): XR chest 1V ?? Accession Number(s): [id number] ? cc: Giana Isbell MD; Kristi Bazan [...] DD/ 1439 ? TD/TT: 03/13/24 1525 ? Army Manager: ? Procedure Note Trish, Image - 03/13/2024 [place] [address] XRay Report Signed Patient: Pat Bush#: [id number] : 1965Acct:[id number] Age/Sex: 58 / FADM Date: 03/13/24 Loc: HO.ED Attending Dr: Ordering Physician: Kristi Bazan Date of Service: 03/13/24 Procedure(s): XR chest 1V Accession Number(s): [id number] cc: Giana Isbell MD; Kristi Bazan EXAMINATION: [...] 03/13/24 1549 DD/ 1439 TD/TT: 03/13/24 1525 Army Manager: [facility] External Provider IMG XR PROCEDURES Final [...] EST Narrative 02/23/2024 9:49 AM EST ? [facility] ?[address] ?[place] [address] ? Mammography Report ? Signed with Addenda ? Patient: Tamia Sánchez,Tory ?MR#: [id number] ?? [id number] ? : 1965 ?Acct:[id number] ? Age/Sex: 58 / F ?ADM Date: 01/15/25 ? Loc: HO.MRI ? Attending Dr: Rhona Badillo MD ? Ordering Physician: Rhona Badillo MD ?Results: 1Negati ?? ve ? Date of Service: 02/22/24 ?Follow Up: 1 Year From Orig ?? inal Mammogram ? Procedure(s): MM tomosynthesis diagnostic LT ?? Accession Number(s): [id number] ? cc: Giana Isbell MD; Rhona Badillo [...] 1% lidocaine with epinephrine. ? NEEDLE: ?? Enlikenc 9-gauge vacuum assisted core biopsy device. ? [...] DD/ 1255 ? TD/TT: 02/22/24 1305 ? Army Manager: ? Procedure Note Trish, Image - 03/02/2024 [place] [address] [place] [address] Mammography Report Signed with Addenda Patient: Pat Bush#: [id number] : 1965Acct:[id number] Age/Sex: 58 / FADM Date: 02/22/24 Loc: HO.MRI Attending Dr: Rhona Badillo MD Ordering Physician: Rhona Badillo MDResults: 1Negati ve Date of Service: 02/22/24Follow Up: 1 Year From Orig inal Mammogram Procedure(s): MM tomosynthesis diagnostic LT Accession Number(s): [id number] cc: Giana Isbell MD; Rhona Badillo MD [...] without and with use of gadolinium contrast. [employer] introducer localization system is used with grid. LESION: Left retroareolar lower outer breast anterior depth.. LOCAL ANESTHESIA: 6 mL 1% lidocaine; 4 mL 1% lidocaine with epinephrine. NEEDLE: WaveRx 9-gauge vacuum assisted core biopsy device. APPROACH: [...] 02/23/24 0947 DD/ 1255 TD/TT: 02/22/24 1305 Army Manager: [facility] External Provider IMG BI PROCEDURES Edited Result - Final * Hematoxylin and Eosin Stain (02/22/2024 12:27 PM EST) 02/22/2024 12:2 7 PM EST 02/22/2024 1:32 PM EST [facility] - 02/24/2024 2:51 PM EST ----- ------- Name: Tory Bush ?Age/Sex: 58/F ? : 1965 Unit#: [id number] ?? Attend Dr: Rhona Badillo MD ?Re02/22/24 ?Status: DEP REF ? Location: HO.MRI ?Disch: ? ----- ------- SPEC : [id number] ?RECD: 02/22/24-1331 ? STATUS: ??SOUT ? REQ NUM: [id number] ? TEQUILA: 02/22/24-1227 ? SUBM DR: Carissa [...] Copies To: ?? Giana Isbell MD ?? [facility] ?? [address] ?? [place] [address] ?? [phone] ?? Rhona Badillo MD ?? [facility] ?? [address] [facility] ?? [place] [address] ?? [phone] ? CONTINUED ON NEXT PAGE ----- ------- Name: Tory Bush ?Age/Sex: 58/F ? : 1965 Unit#: [id number] ?? Attend Dr: Rhona Badillo MD ?Re02/22/24 ?Status: DEP REF ? Location: HO.MRI ?Disch: ? ----- ------- SPEC : [id number] ?RECD: 02/22/24-1331 ? STATUS: ??SOUT ? REQ NUM: [id number] ? TEQUILA: 02/22/24-7 ? SUBM DR: Carissa Raza DO ? ENTERED: ??02/22/24-1 ?SP TYPE: Surgical ? OTHR DR: Giaan Isbell MD ?Rhona Badillo MD ORDERED: ??HE Stain/2, Gross Micro L4 ? COMMENTS: As per the specimen requisition slip the specimen is ?collected at 1227 and placed in formalin at 1240. Copies To: ??(Continued) ?? Carissa Raza DO ?? [address] [facility] [address] ?? [place] [address] ?? [phone] ----- ------- Signed (signature on file) Osman Ríos MD 02/24/24 1451 ? ----- ------- ? END OF REPORT ? us Generic External Data Provider LAB BLOOD ORDERAB LES Final Result [facility] [address] [facility] [place] [address] [phone] * BI MR Guided Breast Biopsy Left (02/22/2024 11:14 AM EST) Anatomical Region Laterality Modality Breast Left Magnetic Resonan ce 02/22/2024 11:1 4 AM EST Narrative 02/23/2024 9:50 AM EST ? [facility] ?[address] ?[place] [address] ? Magnetic Resonance Report ? Signed with Addenda ? Patient: Tamia Sánchez,Tory ?MR#: [id number] ?? [id number] ? : 1965 ?Acct:[id number] ? Age/Sex: 58 / F ?ADM Date: 01/15/25 ? Loc: HO.MRI ? Attending Dr: Rhona Badillo MD ? Ordering Physician: Rhona Badillo MD ?? Date of Service: 02/22/24 ?? Procedure(s): MR guided breast biopsy LT ?? Accession Number(s): [id number] ? cc: Giana Isbell MD; Rhona Badillo [...] 1% lidocaine with epinephrine. ? NEEDLE: ?? SurAbound Logicc 9-gauge vacuum assisted core biopsy device. ? [...] DD/ 1114 ? TD/TT: 02/22/24 1230 ? Army Manager: ? Procedure Note Trish, Eliud - 03/02/2024 [place] [address] Magnetic Resonance Report Signed with Fani Patient: Pat Bush#: [id number] : 1965Acct:[id number] Age/Sex: 58 / FADM Date: 02/22/24 Loc: .MRI Attending Dr: Rhona Badillo MD Ordering Physician: Rhona Baidllo MD Date of Service: 02/22/24 Procedure(s): MR guided breast biopsy LT Accession Number(s): [id number] cc: Giana Isbell MD; Rhona Badillo MD [...] without and with use of gadolinium contrast. [employer] introducer localization system is used with grid. LESION: Left retroareolar lower outer breast anterior depth.. LOCAL ANESTHESIA: 6 mL 1% lidocaine; 4 mL 1% lidocaine with epinephrine. NEEDLE: Enlikenc 9-gauge vacuum assisted core biopsy device. APPROACH: [...] 02/23/24 0947 DD/ 111 TD/TT: 02/22/24 1230 Army Manager: us [facility] External Provider IMG MRI PROCEDURES Edited Result - Final * IR cvc insert tunnel w prt/morale officer (02/16/2024 7:46 AM EST) Anatomical Region Laterality Modality X-Ray Angiograph y 02/16/2024 7:46 AM EST Narrative 02/24/2024 2:22 PM EST ? [facility] ?[address] ?[place] [address] ?Interventional Radiology Rpt ? Signed ? Patient: Tamia Coyneca,Tory ?MR#: [id number] ?? [id number] ? : 1965 ?Acct:[id number] ? Age/Sex: 58 / F ?ADM Date: 02/16/24 ? Loc: HO.SSS ? Attending Dr: Rhona Badillo MD ? Ordering Physician: Rhona Badillo MD ?? Date of Service: 02/16/24 ?? Procedure(s): IR cvc insert tunnel w prt/morale officer ?? Accession Number(s): [id number] ? cc: Giana Isbell MD; Rhona Badillo [...] records. ?? 2. Placement of a 6.6 Singaporean single-lumen power port. ? CLINICIAN: ?? Fortino [...] site. Through the peel-away sheath, the 6.6 Singaporean port catheter was ?? placed. The catheter [...] vein ?? 2. Placement of a 6.6 Singaporean single lumen power port. ?? 3. Port flushes and aspirates very well with a 10 mL syringe. No ?? pneumothorax. ? IR/IR cvc insert tunnel w prt/morale officer ?? IMPRESSION: ?? Placement of a 6.6 Singaporean single-lumen power port. ? PLAN: ?? - [...] DD/ 0746 ? TD/TT: 02/16/24 0934 ? Army Manager: ? Procedure Note Donhernanter, Image - 02/24/2024 [place] [address] Interventional Radiology Rpt Signed Patient: Pat Bush#: [id number] : 1965Acct:[id number] Age/Sex: 58 / FADM Date: 02/16/24 Loc: HO.[facility] Attending Dr: Rhona Badillo MD Ordering Physician: Rhona Badillo MD Date of Service: 02/16/24 Procedure(s): IR cvc insert tunnel w prt/morale officer Accession Number(s): [id number] cc: Giana Isbell MD; Rhona Badillo MD CLINICAL HISTORY: Right breast cancer. The patient presents to interventional radiology for placement of a port for chemotherapy. PROCEDURES: 1. Real-time ultrasound-guided access into the left internal jugular vein after documentation of selected vessel patency, and permanent image storing in the patient records. 2. Placement of a 6.6 Singaporean single-lumen power port. CLINICIAN: Fortino Muniz PA-C [...] site. Through the peel-away sheath, the 6.6 Singaporean port catheter was placed. The catheter position [...] jugular vein 2. Placement of a 6.6 Singaporean single lumen power port. 3. Port flushes and aspirates very well with a 10 mL syringe. No pneumothorax. IR/IR cvc insert tunnel w prt/morale officer IMPRESSION: Placement of a 6.6 Singaporean single-lumen power port. PLAN: - The patient will be discharged home when stable by sedation protocol. - Port may be used immediately. This procedure was performed by Fortino Muniz PA-C, and directly supervised by Dr. Pan Electronically signed by: Jose R Pan MD 02/24/2024 02:18 PM [facility] Dictated By: Fortino Muniz Signed By: <Electronically signed by Fortino Muniz in OV> 02/24/24 1418 <Electronically signed by Jose R Pan MD in OV> 02/24/24 1421 DD/ 0746 TD/TT: 02/16/24 0934 Army Manager: us [facility] External Provider IMG IR PROCEDURES Edited Result - Final * (ABNORMAL) Glucose, Whole Blood (02/16/2024 7:06 AM EST) Glucose, Whole Blood 142(H) 60 - 115 mg/dL [facility] Comment:METER #: [id number] 02/16/2024 7:06 AM EST 02/16/2024 7:11 AM EST Generic External Data Provider LAB BLOOD ORDERAB LES Final Result [facility] [address] [place] [phone] * (ABNORMAL) Comprehensive Metabolic Panel (02/15/2024 2:03 PM EST) Sodium 145 135 - 145 mmol/L [facility] Potassium 4.2 3.3 - 5.1 mmol/L [facility] Chloride 109(H) 96 - 108 mmol/L [facility] Carbon Dioxide 28 22 - 29 mmol/L [facility] Anion Gap 12 12 - 20 [facility] Urea Nitrogen (BUN) 14 9 - 16 mg/dL [facility] Creatinine, Serum 0.89 0.5 - 1.4 mg/dL [facility] Estimated Glomerular Filt Rate >60 [facility] Comment:Chronic Kidney Disea se: Estimated GFR < 60 mL/min/1.73l0Zreloh Kidney Disease: Estimated GFR < 15 mL/min/1.73m2 Glucose 94 60 - 115 mg/dL [facility] Calcium 8.9 8.4 - 10.2 mg/dL [facility] Bilirubin, Total 0.4 0.0 - 1.0 mg/dL [facility] Aspartate Amino Transferase 36(H) 5 - 31 U/L [facility] Alanine Aminotransferase 33(H) 0 - 31 U/L [facility] Total Protein 7.1 6.5 - 8.0 g/dL [facility] Albumin Level 4.2 3.5 - 5.0 g/dL [facility] Alkaline Phosphatase 122(H) 39 - 117 U/L [facility] 02/15/2024 2:03 PM EST 02/15/2024 2:03 PM EST us Generic External Data Provider LAB BLOOD ORDERAB LES Final Result [facility] [address] [place] [phone] * BI US Breast Limited Left (02/10/2024 12:15 PM EST) Anatomical Region Laterality Modality Breast Left Ultrasound 02/10/2024 12:1 5 PM EST Narrative 02/10/2024 3:42 PM EST ? [facility] [place] ? [address] ?[place] [address] ? Ultrasound Report ? Signed ? Patient: Tory Bush ?MR#: [id number] ?? [id number] ? : 1965 ?Acct:[id number] ? Age/Sex: 58 / F ?ADM Date: 02/10/24 ? Loc: HO.MAMMO ? Attending Dr: Rhona Badillo MD ? Ordering Physician: Rhona Badillo MD ?? Date of Service: 02/10/24 ?? Procedure(s): US breast LT limited mamm only ?? Accession Number(s): [id number] ? cc: Giana Isbell MD; Rhona Badillo [...] DD/ 1215 ? TD/TT: 02/10/24 1231 ? Army Manager: ? Procedure Note Trish, Image - 02/10/2024 [facility] [address] [place] [address] [place] [address] Ultrasound Report Signed Patient: Pat Bush#: [id number] : 1965Acct:[id number] Age/Sex: 58 / FADM Date: 02/10/24 Loc: HO.MAMMO Attending Dr: Rhona Badillo MD Ordering Physician: Rhona Badillo MD Date of Service: 02/10/24 Procedure(s): US breast LT limited mamm only Accession Number(s): [id number] cc: Giana Isbell MD; Rhona Badillo MD [...] by: Carissa Raza DO 02/10/2024 03:39 PM [facility] Dictated By: Carissa Raza DO Signed By: <Electronically signed by Carissa Raza DO in OV> 02/10/24 1539 DD/ 1215 TD/TT: 02/10/24 1231 Army Manager: us [facility] External Provider IMG US PROCEDURES Edited [...] HPV nRNA E6/E7 Not Detected Not Detected [facility] Comment:Methodology: Transcr iption-Mediated AmplificationThis assay detects E6/E7 viral messenger RNA (mRNA) from 14high-risk HPV types (16,18,31,33,35,39,45,51,52,56,58,59,66,68).Cervical sources are required for HPV testing.If a vaginal source from a patient who has had atotal hysterectomy with removal of cervix wassubmitted, please contact the testing laboratoryfor alternative testing options.For additional information, please refer tohttp://education.[employer]/faq/WJZ742w3(This link if provided for information/educational purposes only.)THIS TEST WAS PERFORMED AT:[facility] [facility] [address] [phone] FISCHER MD SOURCE: SEE NOTE [facility] Comment:None given Report Status: [facility] Clinical Information: SEE NOTE [facility] Comment:None given LMP: SEE NOTE [facility] Comment:NONE GIVEN Prev. PAP: SEE NOTE [facility] Comment:NONE GIVEN Prev. BX: SEE NOTE [facility] Comment:NONE GIVEN Statement Of Adequacy: SEE NOTE [facility] Comment:Satisfactory for tiffany luation.Endocervical/transformation zone componentpresent. General Categorization: [facility] Interpretation/Result: SEE NOTE [facility] Comment:Cytology Results: Ne gative for intraepitheliallesion or malignancy. Cytology Comment SEE NOTE [facility] Comment:This Pap test has be en evaluated with computerassisted technology. High School Band Director: SEE NOTE [facility] Comment:YP, CT(ASCP)CT scree gino location: [place] [address] Review [employer] Band Director: [facility] Pathologist TNP [facility] PAP Infection [facility] See Note SEE NOTE [facility] Comment:EXPLANATORY NOTE:The Pap is a screening test for cervical cancer. It isnot a diagnostic test and is subject to false negativeand false positive results. It is most reliable when asatisfactory sample, regularly obtained, is submittedwith relevant clinical findings and history, and whenthe Pap result is evaluated along with historic andcurrent clinical information. 10/25/2023 10/25/2023 Narrative [facility] - 11/01/2023 12:30 PM EDT SEE SCANNED RESULTS IN EMR us Lou Gonzalez MD LAB PATHOLOGY ORDERABLES Ashlyn l Result Performing Organization Address [facility] de Phone Number [facility] [address] [place] [phone] * Hepatitis Panel, General (01/13/2023 9:50 AM EST) Hepatitis A IgM Nonreactive Nonreactive [facility] Comment:IgM antibodies to RUELAS V not detected; does not exclude earlyacute or recovered HAV infection. ~Hepatitis B Surface Antibody NONREACTIVE Nonreactive [facility] Comment:Nonreactive: < 8.00 mIU/mL Hepatitis B Core Antibody Nonreactive Nonreactive [facility] Hepatitis C Antibody Nonreactive Nonreactive [facility] Comment:Antibodies to HCV no t detected; does not exclude early acuteHCV infection. Hepatitis B Surface Ag Negative Negative [facility] 01/13/2023 9:50 AM EST 01/13/2023 9:52 AM EST us Generic External Data Provider LAB BLOOD ORDERAB LES Final Result Performing Organization Address [facility] Co de Phone Number [facility] [address] [place] [phone] * (ABNORMAL) LIPID PANEL, STANDARD (08/04/2021 [...] of LDL-C. ?? Esteban SS et al. NCI. 2013;310(19): 8975-8068 ?? (http://education.PolicyStat/faq/OEV924) Non-HDL Cholesterol 188(H) <130 mg/dL (calc) [facility] Comment: For patients with diabetes plus 1 major ASCVD risk ?? factor, treating to a non-HDL-C goal of <100 mg/dL ?? (LDL-C of <70 mg/dL) is considered a therapeutic ?? option. Triglycerides 189(H) <150 mg/dL [facility] 08/04/2021 9:06 AM EDT Giana Isbell MD LAB BLOOD ORDERABLES Final Result [facility] [address] * Hm Colonoscopy (12/02/2015) Colonoscopy Normal Normal Narrative Lily Sanchez - 12/02/2015 Recommended 10 year follow up Historical Provider HEALTH MAINTENANCE Final Result from Last 3 Months or Most Recently Relevant to Health Maintenance [place] [address] [place] [address] - [facility] Care Teams Lodging Facilities Manager Relationship Specialty Start Date End Date Giana Isbell MD [address] [place] [address] PCP - General Internal Medicine 09/07/18
--- OUTSIDE RECORDS SUMMARY | 2024-05-09 07:50 | XMS_ITS | Encounter Summary ---
Author Organization [employer] Address [address] [facility] [address] [place] [address] Care Team Providers Care Pre Billing Specialist Name Role Phone Giana Isbell MD Primary Care Provider [phone] Encounter Details Date Type Department Care Team ([facility] Contact Info) Description 02/17/2024 Orders Only [facility] [address] [place] [address] Provider, MD Kathi Social History Tobacco Use [...] Description 06/26/2024 1:30 PM EDT Office Visit [facility] [address] [place] [address] Giana Isbell MD [address] [place] [address] documented as of this encounter Procedures Procedure [...] documented as of this encounter Care Teams Pre Billing Specialist Relationship Specialty Start Date End Date Giana Isbell MD [address] [place] [address] PCP - General Internal Medicine 09/07/18 documented as of this encounter
--- NOTE | 2024-05-09 08:06 | A.OFFVIS_ITS ---
Vital Signs 05/09/24 08:19 Height 5 ft Weight 142 lb BMI 27.7 BP 98/54 L Blood Pressure Location Rt brachial Position Sitting Pulse 94 Pulse Source Pulse Oximeter Pulse Oximetry (%) 100 Oxygen Delivery Method Room Air Intake Visit Reasons: Abd pain, transaminitis, hepatitis mgmt. pt Intake Note: ESTABLISHED PATIENT for abd pain mgmt, transaminitis and hepatitis hx. LEONILA w/ NALINI 05/2023 Chief Complaint; C/O epigastric pain and reflux despite current treatment. Pt denies any additional concerns at this time and verified medications upon being shown active med list. Chemical Treatment Plant Technician Required: Yes Chemical Treatment Plant Technician Services: Chemical Treatment Plant Technician Present Chemical Treatment Plant Technician Name: [facility] + Priti [id number] Information Interpreted: clinical only Accompanied by: Self / Same As Patient Allergies acetaminophen [Vicodin] Allergy (Unknown, Verified 05/09/24 08:06) unk Penicillins Adverse Reaction (Mild, Verified 05/09/24 08:06) HYPERTENSION hydrocodone [From VICODIN] Adverse Reaction (Unknown, Verified 05/09/24 08:06) HIGH BP HPI HPI Abd pain, transaminitis, hepatitis mgmt. NALINI pt: Details: LAST VISIT WITH SOFIA ZAMUDIO PA: 05/12/2023 Reviewed procedure report, pathology recommendation She agrees symptoms somewhat vague she will monitor She will keep food diary Avoid etoh, spicy food, eat small prtions , more frequently-lowfat diet- high fiber - good wt/chol control Agrees to notify us with any worsening sx - ED-if concerning Encouraged to call with any questions or concerns TODAY'S VISIT Patient is here today for follow-up. Patient previously seen by Cleve Zamudio. Last visit in May 2023. Patient was diagnosed with breast cancer and started chemotherapy in February of 2024. Patient reports occasional nausea, specially after her chemotherapy treatment. Patient is using Zofran. Patient reports no appetite for few days after the treatment. Patient occasionally is using famotidine for pantoprazole. Patient does not want to use it on a daily basis as she is taking too many medications. Her symptoms are only if she eats something that does not agrees with her, however recently patient has been trying to avoid dietary triggers and that helps. Patient is moving her bowels well, however sometimes she is constipated. Uses stool softener and MiraLax if needed. Denies any melena, hematochezia, unintentional weight loss or ribbon like stools. Reports occasional dyspepsia without dysphagia or odynophagia [facility] Medical History Anemia GERD (gastroesophageal reflux disease) Fatty liver Invasive ductal carcinoma of right breast Type 2 diabetes mellitus Vitamin D deficiency Multinodular thyroid Hypothyroidism Surgical History History of lobectomy of thyroid Hx of colonoscopy History of esophagogastroduodenoscopy (EGD) History of carpal tunnel surgery of left wrist Tubal ligation status Hx of foot surgery Hx of epicondylectomy Hx of cholecystectomy Hx of thyroidectomy Hx of appendectomy Family History Father No problems noted. 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 Gender identity: Female Female Reproductive History Menstrual Age of Menarche: 15 Review of Systems Const Denies weight gain and Denies weight loss ENT Reports no additional complaints, Denies dysphagia and Denies odynophagia Card Reports no additional complaints Resp Reports no additional complaints GI Denies abdominal pain, Denies belching, Denies melena, Denies bloating, Denies change in bowel habits, Denies dysphagia, Denies excessive flatus, Denies dyspepsia, Denies heartburn, Denies diarrhea, Denies loose stools, Denies nausea, Denies odynophagia and Denies vomiting Musc Reports no additional complaints Neuro Reports no additional complaints Psych Reports no additional complaints Endo Reports no additional complaints Physical Exam Vital Signs: Last Vital Signs Pulse 94 05/09/24 08:19 BP 98/54 L 05/09/24 08:19 Pulse Ox 100 05/09/24 08:19 Oxygen Delivery Method Room Air 05/09/24 08:19 BMI result Body Mass Index 27.7 Const General: healthy appearing, no acute distress and well developed Nutritional Appearance: well nourished Orientation/consciousness: patient oriented x3 Resp Effort & Inspection: normal respiratory effort, able to speak in complete sentences, no tracheal deviation and symmetric chest movement Auscultation: clear to auscultation bilaterally Cardio Rate: regular rate GI Inspection: Yes normal to inspection and No distended Palpation (GI): Soft to palpation, not firm, nontender and No hepatosplenomegaly present Auscultation: normal bowel sounds General: Yes no CVA tenderness Back/Spine/Pelvis Back: no CVA tenderness Skin General skin exam: elasticity normal, turgor normal and dry skin Neuro General: patient oriented x3 Psych Appearance: grossly normal Mental Status: mental status grossly normal Assessment & Plan Assessment & Plan (1) Sphincter of Oddi dysfunction: Comment: Most likely cause SOD-symptoms vague Code(s): K83.4 - Spasm of sphincter of Oddi Category: Medical (2) Constipation: Code(s): K59.00 - Constipation, unspecified Category: Medical Qualifiers: Constipation type: slow transit constipation Qualified Code(s): K59.01 - Slow transit constipation (3) Sphincter of Oddi spasm: Code(s): K83.4 - Spasm of sphincter of Oddi Category: Medical (4) Elevated liver transaminase level: Code(s): R74.01 - Elevation of levels of liver transaminase levels Category: Medical (5) GERD (gastroesophageal reflux disease): Code(s): K21.9 - Gastro-esophageal reflux disease without esophagitis Qualifiers: Esophagitis presence: esophagitis presence not specified Qualified Code(s): K21.9 - Gastro-esophageal reflux disease without esophagitis (6) Postprandial epigastric pain: Code(s): R10.13 - Epigastric pain (7) Nausea: Code(s): R11.0 - Nausea Plan Patient will try to continue to avoid dietary triggers. Avoid late night snacking. Patient was encouraged to drink protein shakes if that helps. Use MiraLax and docusate sodium to help her move her bowels. Increase fluid intake and activity to promote better bowel motility. Low FODMAP diet discussed with patient. List of food recommended as well as list of food to avoid given to patient. Follow-up in 2-3 months, sooner on as needed basis. Patient is agreeable to this plan and verbalizes understanding of instructions. She was given the opportunity to ask questions and all questions answered. Thank you for allowing me to participate in the care Coding Level of Care Code Est Pt Level 4 (37677) Complex EM visit Add On G2211 Diagnoses Sphincter of Oddi dysfunction K83.4 Slow transit constipation K59.01 Constipation type: slow transit constipation Sphincter of Oddi spasm K83.4 Elevated liver transaminase level R74.01 Gastroesophageal reflux disease, unspecified whether esophagitis present K21.9 Esophagitis presence: esophagitis presence not specified Postprandial epigastric pain R10.13 Nausea R11.0 Time Spent (min) 40 Comment 25 minutes spent with patient and additional 15 minutes spent reviewing her records
[2024-05-09 08:19] VITALS: BP 98/54; PULSE 94; O2SAT 100; BMI 27.7
== END 2024-05-09 08:31 | disposition home or self-care (01) ==
LOC: HO.HGI 07:47
PROVIDERS: PCP Internal Medicine; Visit Provider Nurse Practitioner Family
DX: K83.4 Spasm of sphincter of Oddi (principal); K59.01 Slow transit constipation; R74.01 Elevation of levels of liver transaminase levels; K21.9 Gastro-esophageal reflux disease without esophagitis; R10.13 Epigastric pain; R11.0 Nausea
CPT/HCPCS: 99214; G2211

== ENCOUNTER → 2024-05-09 07:46 | Outpatient (BNVA) | payer OTHER, SELFPAY | PROVIDERS: PCP Internal Medicine; Visit Provider Nurse Practitioner Family | DX: R10.13 Epigastric pain (principal); K21.9 Gastro-esophageal reflux disease without esophagitis; K83.4 Spasm of sphincter of Oddi; K59.01 Slow transit constipation; R74.01 Elevation of levels of liver transaminase levels; R11.0 Nausea | CPT/HCPCS: 99212 ==

== ENCOUNTER 2024-05-17 15:46 | Emergency (ER) | payer OTHER, SELFPAY ==
--- NOTE | 2024-05-17 | ECG_ITS ---
Test Reason : CHEST PAIN Blood Pressure : */* mmHG Vent. Rate : 98 BPM Atrial Rate : 98 BPM P-R Int : 120 ms QRS Dur : 76 ms QT Int : 348 ms P-R-T Axes : 46 52 65 degrees QTcB Int : 444 ms Normal sinus rhythm Nonspecific ST and T wave abnormality Abnormal ECG When compared with ECG of 13-Mar-2024 14:11, No significant change was found Referred By: Generic ED Physician Electronically Signed By: Chucky Hughes
--- NOTE | ~2024-05-17 | XR_ITS ---
CLINICAL HISTORY: sob, chest pain 1 view chest x-ray Comparison: CR/AL/SR - XR CHEST 2V - 04/19/24 08:49 EDT Findings: No consolidation, pleural effusion or pneumothorax. Heart size is accentuated by portable technique. No CHF. No acute fracture. Left georgie catheter tip is near the atriocaval junction. There is a surgical clip in the right upper quadrant. IMPRESSION: No acute cardiopulmonary process. This document has been electronically signed by: Vanna Pleayo DO on 05/17/2024 17:45:28
--- NOTE | ~2024-05-17 | CT_ITS ---
CLINICAL HISTORY: cp CT ANGIOGRAPHY CHEST WITH CONTRAST. 3D POSTPROCESSING. Comparison: CT/SR - CT ANGIO CHEST PE PROTOCOL - 03/13/24 16:24 EST Findings: The heart size is normal. RV/LV ratio is normal. No thoracic aortic aneurysm or dissection. No pulmonary artery filling defects. The thyroid gland is not well-visualized. No lymphadenopathy. Bilateral lower lobe and lingular atelectatic changes. No consolidation, pleural effusion or pneumothorax. Cholecystectomy. The bones are intact. The distal tip of the left georgie catheter appears to be near the atriocaval junction. IMPRESSION: 1. No pulmonary emboli. This document has been electronically signed by: Vanna Pelayo DO on 05/17/2024 19:45:54
[2024-05-17 15:50] VITALS: BP 116/65; PULSE 99; RESP 18; TEMP 36.8; O2SAT 100; BMI 23.4
[2024-05-17 16:44] VITALS: BP 115/74; PULSE 97; RESP 14; O2SAT 98
[2024-05-17 16:55] LABS: Hematocrit 32.8 % (37.0-47.0); Hemoglobin 11.4 g/dl (12.0-16.0); Mean Corpuscular HGB Conc 34.8 g/dl (31.0-35.0); Mean Corpuscular Hemoglobin 33.9 pg (27.0-33.0); Mean Corpuscular Volume 97.6 fL (80.0-98.0); Mean Platelet Volume 10.3 fL (9.4-12.3); Red Blood Count 3.36 X10*6/uL (4.20-5.50); Red Cell Distribution Width 18.7 % (11.0-16.0)
[2024-05-17 16:58] LABS: Platelet Count 85 X10*3/uL (160-400); WBC ABN SCTR FOR CBC 1; White Blood Count 4.1 X10*3/uL (4.8-10.8)
--- NOTE | 2024-05-17 17:03 | PC.NURSE ---
presents from hematology/oncology w/ right sided breast cancer. follows w/ dr. jackson. at routine visit when pt c/o ROSE, weakness, chills, diarrhea x tuesday. denies hx asthma/copd/CHF. most recent chemotherapy x 05/10. pt placed on 2L via NC via hematology/oncology. upon ED arrival - pointer helper utilized. a&ox4. vss and up to date. nsr on the shelter monitor. pt currently remains on 2L via NC for supplemental O2 for chief complaint of SOB. pt not hypoxic via hem/onc CUSHION MAKER. 20gIV placed in the left AC per pt request as she did not want power port accessed at this time. labs obtained/sent to lab. ekg obtained/sent to lab. pt waiting to have chest xray completed at this time. family bedside for support. plan of care ongoing. call renae placed within reach.
[2024-05-17 17:07] LABS: Alanine Aminotransferase 76 U/L (0-31); Albumin Level 3.8 g/dL (3.5-5.0); Alkaline Phosphatase 127 U/L (39-117); Anion Gap 13 (12-20); Aspartate Amino Transferase 40 U/L (5-31); Bilirubin Total 0.4 mg/dL (0.0-1.0); Blood Urea Nitrogen 13 mg/dL (9-16); Calcium 9.1 mg/dL (8.4-10.2); Carbon Dioxide 24 mmol/L (22-29); Chloride 110 mmol/L (96-108); Creatinine Clr Calc Pharmacy 53.6; Estimated Glomerular Filt Rate > 60; Glucose Random 111 mg/dL (60-115); Magnesium 1.6 mg/dL (1.6-2.6); Potassium 4.1 mmol/L (3.3-5.1); Sodium 143 mmol/L (135-145)
[2024-05-17 17:12] LABS: B Type Natriuretic Peptide < 10 pg/mL (<100)
[2024-05-17 17:18] LABS: Troponin-I High Sensitivity < 2.7 ng/L (<3.5-17.0)
[2024-05-17 17:28] LABS: Influenza A PCR NEGATIVE (Negative); Influenza B PCR NEGATIVE (Negative); Resp Syncy Virus RNA Qual PCR NEGATIVE (Negative); SARS COV2 PCR INHOUSE NEGATIVE (Negative)
[2024-05-17 17:40] LABS: Band Neutrophils Percent 6 % (3-5); Lymphocytes Absolute Manual 1.1 X10*3/uL (1.2-4.9); Lymphocytes Percent Manual 27 % (20-40); Monocytes Absolute Manual 0.3 X10*3/uL (0.1-1.2); Monocytes Percent Manual 8 % (2-11); Neutrophils Absolute Manual 2.7 X10*3/uL (2.0-8.3); Neutrophils Percent Manual 59 % (45-73)
[2024-05-17 17:42] LABS: Platelet Estimate DECREASED (NORMAL); Platelet Morphology Comment NORMAL; RBC Morphology NOTED; Tear Drop Cells 1+ (0-2) /OIF
--- OUTSIDE RECORDS SUMMARY | 2024-05-17 18:03 | XMS_ITS | Encounter Summary ---
Author Organization [employer] Address [address] [facility] [address] [place] [address] Care Team Providers Care Redrawer Name Role Phone Giana Isbell MD Primary Care Provider [phone] Encounter Details Date Type Department Care Team (Late st Contact Info) Description 04/12/2024 Orders Only [facility] MEDICINE [address] [place] [address] Giana Isbell MD [address] [place] [address] Bronchopneumonia (Primary Dx) Social History Tobacco Use [...] Upcoming Encounters Date Type Department Care Team ([facility] Contact Info) Description 06/26/2024 1:30 PM EDT Office Visit [facility] MED & PEDS [address] [place] [address] Giana Isbell MD [address] [place], [place] [phone] documented as of this encounter Procedures Procedure Name Priority Date/Time Associated Diagnosis Comments XR CHEST 2 VIEWS Routine 04/19/2024 8:35 AM EDT Bronchopneumonia documented in this encounter Results * XR Chest 2 Views (04/19/2024 8:35 AM EDT) Anatomical Region Laterality Modality Chest Radiographic Laura ging 04/19/2024 8:35 AM EDT Narrative 04/19/2024 9:48 AM EDT ? [facility] ?[address] ?[place] [address] ?XRay Report ? Signed ? Patient: Tory Bush ?MR#: [id number] ?? [id number] ? : 1965 ?Acct:[id number] ? Age/Sex: 58 / F ?ADM Date: 03/13/25 ? Loc: HO.LAB ? Attending Dr: Giana Isbell MD ? Ordering Physician: Giana Isbell MD ?? Date of Service: 04/19/24 ?? Procedure(s): XR chest 2V ?? Accession Number(s): [id number] ? cc: Giana Isbell MD ? EXAMINATION: [...] DD/ 0835 ? TD/TT: 04/19/24 0845 ? [employer] Mixing Plant Superintendent: ? Procedure Note Barbdonato, Image - 04/19/2024 [place] [address] XRay Report Signed Patient: Pat Bush#: [id number] : 1965Acct:[id number] Age/Sex: 58 / FADM Date: 04/19/24 Loc: HO.LAB Attending Dr: Giana Isbell MD Ordering Physician: Giana Isbell MD Date of Service: 04/19/24 Procedure(s): XR chest 2V Accession Number(s): [id number] cc: Giana Isbell MD EXAMINATION: XR CHEST [...] OV> 04/19/24 0945 DD/ TD/TT: 04/19/24 0845 [employer] Superintendent: Giana Isbell MD IMG XR PROCEDURES Edited Re sult - Final documented in this encounter Visit Diagnoses Diagnosis Bronchopneumonia- Primary Bronchopneumonia, organism unspecified documented in this encounter Additional Health Concerns Assessment Noted Time PHQ-9 Depression Total Score: 24 025 9:26 AM EST documented as of this encounter Care Teams Redrawer Relationship Specialty Start Date End Date Giana Isbell MD [address] [place] [phone] PCP - General Internal Medicine 09/07/18 documented as of this encounter
--- OUTSIDE RECORDS SUMMARY | 2024-05-17 18:03 | XMS_ITS | Encounter Summary ---
Author Organization [employer] Address [address] [place] [address] Care Team Providers Care Spar Machine Operator Helper Name Role Phone Giana Isbell MD Primary Care Provider [phone] Encounter Details Date Type Department Care Team ([facility] st Contact Info) Description 02/06/2024 Orders Only [facility] MED & PEDS [address] [place] [address] Giana Isbell MD [address] [place] [address] Acquired hypothyroidism (Primary Dx) Social History Tobacco [...] Upcoming Encounters Date Type Department Care Team ([facility] st Contact Info) Description 06/26/2024 1:30 PM EDT Office Visit [facility] MED & PEDS [address] [place] [address] Giana Isbell MD [address] [place], [place] [phone] Scheduled Orders Name Type Priority Associated Diagnoses [...] EST Narrative 02/10/2024 3:39 PM EST ? [facility] ?[address] ?[place] [address] ? Magnetic Resonance Report ? Signed with Addenda ? Patient: Tory Bush ?MR#: [id number] ?? [id number] ? : 1965 ?Acct:[id number] ? Age/Sex: 58 / F ?ADM Date: 12/30/24 ? Loc: HO.MRI ? Attending Dr: Pardeep Marcos MD ? Ordering Physician: Pardeep Marcos MD ?? Date of Service: 02/06/24 ?? Procedure(s): MR breast BI wo/w con ?? Accession Number(s): [id number] ? cc: Giana Isbell MD; Pardeep Marcos [...] ? DD/ ? TD/TT: 02/06/24 1016 ? Laboratory Tech: ? Procedure Note Donmichelle, Image - 02/13/[address] [address] Magnetic Resonance Report Signed with Fani Patient: Pat Bush#: [id number] : 1965Acct:[id number] Age/Sex: 58 / FADM Date: 02/06/24 Loc: HO.MRI Attending Dr: Pardeep Marcos MD Ordering Physician: Pardeep Marcos MD Date of Service: 02/06/24 Procedure(s): MR breast BI wo/w con Accession Number(s): [id number] cc: Giana Isbell MD; Pardeep Marcos MD [...] 02/10/24 1536 DD/ 0933 TD/TT: 02/06/24 1016 Laboratory Tech: [facility] External Provider IMG MRI PROCEDURES Edited Result - Final documented in this encounter Visit Diagnoses Diagnosis Acquired hypothyroidism- Primary Unspecified hypothyroidism documented in this encounter Additional Health Concerns Assessment Noted Time PHQ-9 Depression Total Score: 7 07/30/19 23 10:13 AM EDT documented as of this encounter Care Teams Spar Machine Operator Helper Relationship Specialty Start Date End Date Giana Isbell MD [address] [place] [address] PCP - General Internal Medicine 09/07/18 documented as of this encounter
--- OUTSIDE RECORDS SUMMARY | 2024-05-17 18:03 | XMS_ITS | Data Portability ---
Author Organization [employer] Address [address] [place] [phone] Care Team Providers Care Knock Out Hand Name Role Phone [facility] Referring Provider [facility] Referring Provider [phone] Assessment Encounter Date Assessment Date Assessment LastModified by Organization Details LastModified Time 10/02/2021 10/02/2021 I have reviewed and agree with the Assessment and Plan as documented by the Endoscopy Rn. I provided real -time medical direction via phone for this encounter, and was available for additional phone based assistance as needed. Patient given the opportunity to ask questions. [email or web address] Not available 10/02/2021 19:13:58 04/13/2023 04/13/2023 Ms. Tory Cantrell is a 57yoF who is seen today for further evaluation of right eye irritation. Ms. Cantrell reports three days of right eye itching and watering. She denies any fevers but reports that her left eye is starting to also itch and she has some minimal right ear discomfort. Otherwise has been feeling well. VSS. Endoscopy Rn site uploads picture of minimally injected and tearing right eye. Exam is c/w viral conjunctivitis . Recommended ongoing OTC therapies and cool compress/hand hygeine. Red flags to be reviewed by painter ski edge. Not available 04/13/2023 10:45:55 Plan of Treatment [...] Not available Not available Not available 10/02/2021 85182 8001 SNOMED Not Available [employer] - [employer] 03:43:36 890 hydrocodo ne Not available Not available Not available Not available 10/02/2021 5489 RxNorm Cynthia Maguire MD [address] [facility],[address], [place], [phone] , [facility] [employer] 18:39:23 Medications Name Sig Start Date Stop [...] % 98 % 88 /min 18 /min 37584.8 8 g 97.6 [degF] 124 mm[Hg] 76 mm[Hg] Not Available [facility] [employer] 4 10:39:50 Date Recorded Body temperature Heart [...] mm[Hg] 120 mm[Hg] 70 mm[Hg] Not Available [facility] 2 17:37:54 Date Recorded Body weight Provider Name an d Address Organization Details Last Updated DateTime 10/02/2021 36758.01 g Shravan Mallory [address] [place] [address],[address], [place], [phone], [facility] [employer] [facility] 10/02/2021 18:45:32 Social History None [...] Code Diagnosis Note 3564 Cynthia Maguire MD [facility] - [address] [phone] 10/02/2021 16:58:56 10/21/2021 11:37:50 Pain in right heel 2913738191 050675 M79.671 possible plantar fasciitis- vs talar tendonitis [...] continue Naprosyn in am Delilah Hope MD [facility] - [address] [phone] 04/13/2023 10:39:45 04/14/2023 09:54:22 Viral conjunctivitis 60186152 B30.9 Health Concerns Section Related Observation LastModified by Organization Detai ls LastModified Time None Recorded Concern Status LastModified by Organization Details LastModified Time None Recorded Advance Directives Directive None Recorded Payers Encounter Date Sequence Insurance Name Policy Number Policy Pastor Covered Member ID Pastor Member ID Guarantor Name 10/02/2021 1 [facility] shopa - DOS PRIOR TO 2022 - DUAL ELIGIBLE (MEDICARE REPLACEMENT/ADV ANTAGE - HMO) Tory Cantrell [id number] Tory Cantrell 04/13/2023 1 [facility] shopa - DOS ON OR AFTER 2022 - DUAL ELIGIBLE - SHELTER OPTIONS AND ONE CARE (MEDICARE REPLACEMENT/ADV ANTAGE - HMO) Tory Cantrell [id number] Tory Cantrell Notes Date Note Type Note [...] .................. .................. .................. .................. .................. .................. ............... Endoscopy Rn Note: Eval for right heel pain. pt stated she has had right heel pain for about 1 month, getting worse lately. Pt states she has appointment with ortho on Tuesday- pt has HX of tendon surgeries and chronic pain. pt states pain is bottom of heel, with discomfort generalized around ankle. no other new pain. pt denied fever/chills, denied sob/cp. [facility] recommended ice, elevate and we gave 15mg toradol for temp relief of pain. pt to follow up with pcp .................. .................. .................. .................. .................. .................. .................. ............... Disposition: FulfilledSEGMD: As above- hx chronic pain- On Naprosyn 500 mg q AM- denies hx CKD- not on anticoagulants- denies numbness/ tingling- worse w/ palpation/ ambulation/ WB Cynthia Maguire MD [address] [place] [address],[address], [place], [phone], [employer] 10/03/2021 17:32:32 04/13/2023 text/html HPI: HX Depression,migrain es. Three day history of eye irritation redness with drainage. No fever.slight ear discomfort. .................. .................. .................. .................. .................. .................. .................. ............... CRC Nurse Triage Notes (Yvette Guerra): Comments: HPI reviewed. No further information reviewed to process visit. .................. .................. .................. .................. .................. .................. .................. ............... Endoscopy Rn Note From Devan Brown: Pt co irrigation [...] Pt education on signs indicating the ER. Endoscopy Rn Allergies: Acetaminophen, Penicillin .................. .................. .................. .................. .................. .................. .................. ............... Disposition: Fulfilled Delilah Hope MD [address] [facility],[address], [place], [address], [employer] 04/13/2023 16:03:59 OBGyn Episode No OBEpisode recorded.
--- OUTSIDE RECORDS SUMMARY | 2024-05-17 18:04 | XMS_ITS | Encounter Summary ---
Author Organization [employer] Address [address] [facility] 7[address] [place] [address] Care Team Providers Care Financial Secretary Name Role Phone Giana Isbell MD Primary Care Provider [phone] Encounter Details Date Type Department Care Team (Latest Contact Info) Description 12/04/2021 Abstract [facility] CONVERSIONS Dental, Provider, DDS Social [...] 1:30 PM EDT Office Visit [facility] CHC MED & PEDS [address] [place] [address] Giana Isbell MD [address] [place] [address] documented as of this encounter Visit Diagnoses Not on filedocumented in this encounter Care Teams Financial Secretary Relationship Specialty Start Date End Date Giana Isbell MD [address] [place] [address] PCP - General Internal Medicine 09/07/18 documented as of this encounter
--- OUTSIDE RECORDS SUMMARY | 2024-05-17 18:04 | XMS_ITS | Encounter Summary ---
Author Organization [employer] Address [address] [facility] 7[address] [place] [address] Care Team Providers Care Refining Machine Operator Name Role Phone Giana Isbell MD Primary Care Provider [phone] Encounter Details Date Type Department Care Team ([facility] Contact Info) Description 05/17/2024 Orders Only GENERIC EXTERNAL DATA DEPARTMENT Provider, [...] Upcoming Encounters Date Type Department Care Team ([facility] st Contact Info) Description 06/26/2024 1:30 PM EDT Office Visit [facility] CHC MED & PEDS [address] [place], [place] [phone] Giana Isbell MD [address] [place], [place] [phone] documented as of this encounter Procedures Procedure Name Priority Date/Time Associated Diagnosis Comments XR CHEST 1 VIEW Routine 05/17/2024 5:45 PM EDT HOLD LT BLUE - POSSIBLE COAG Routine 05/17/2024 4:44 PM EDT HIGH SENSITIVITY TROPONIN I Routine 05/17/2024 4:43 PM EDT COMPLETE BLOOD COUNT MAN DIF Routine 05/17/2024 4:43 PM EDT SARS COV2/INFLUENZA A/B AND RSV RNA QL NAAT Routine 05/17/2024 4:43 PM EDT B TYPE NATRIURETIC PEPTIDE (BNP) Routine 05/17/2024 4:43 PM EDT MAGNESIUM Routine 05/17/2024 4:43 PM EDT COMPREHENSIVE METABOLIC PANEL Routine 05/17/2024 4:43 PM EDT documented in this encounter Results * XR Chest 1 View (05/17/2024 5:45 PM EDT) Anatomical Region Laterality Modality Chest Radiographic Laura ging 05/17/2024 5:45 PM EDT Narrative 05/17/2024 5:46 PM EDT ? [facility] ?[address] ?[place] [address] ?XRay Report ? Signed ? Patient: Tamia Sánchez,Tory ?MR#: [id number] ?? [id number] ? : 1965 ?Acct:[id number] ? Age/Sex: 58 / F ?ADM Date: 05/17/24 ? Loc: HO.ED ? Attending Dr: ? Ordering Physician: Adriana Robb MD ?? Date of Service: 05/17/24 ?? Procedure(s): XR chest 1V ?? Accession Number(s): [id number] ? cc: Giana Isbell MD; Adriana Robb MD ? CLINICAL HISTORY: sob, chest pain ? 1 view chest x-ray ? Comparison: CR/WA/SR - XR CHEST 2V - 04/19/24 08:49 EDT ? Findings: ?? No consolidation, pleural effusion or pneumothorax. ?? Heart size is accentuated by portable technique. No CHF. ?? No acute fracture. ? Left georgie catheter tip is near the atriocaval junction. ?? There is a surgical clip in the right upper quadrant. ? IMPRESSION: ?? No acute cardiopulmonary process. ? This document has been electronically signed by: Vanna Pelayo, DO on ?? 05/17/2024 17:45:28 ? Dictated By: ?Vanna Pelayo MD ? Signed By: ?<Electronically signed by Vanna Pelayo MD in OV> ?05/17/24 1746 ? DD/ 1745 ? TD/TT: 05/17/24 1745 ? Fare Register Repairer: ? Procedure Note Trish, Image - 05/17/[address] [address] XRay Report Signed Patient: Pat Bush#: [id number] : 1965Acct:[id number] Age/Sex: 58 / FADM Date: 05/17/24 Loc: HO.ED Attending Dr: Ordering Physician: Adriana Robb MD Date of Service: 05/17/24 Procedure(s): XR chest 1V Accession Number(s): [id number] cc: Giana Isbell MD; Adriana Robb MD CLINICAL HISTORY: sob, chest pain 1 view chest x-ray Comparison: CR/WA/SR - XR CHEST 2V - 04/19/24 08:49 EDT Findings: No consolidation, pleural effusion or pneumothorax. Heart size is accentuated by portable technique. No CHF. No acute fracture. Left georgie catheter tip is near the atriocaval junction. There is a surgical clip in the right upper quadrant. IMPRESSION: No acute cardiopulmonary process. This document has been electronically signed by: Vanna Pelayo DO on 05/17/2024 17:45:28 Dictated By: Vanna Pelayo MD Signed By: <Electronically signed by Vanna Pelayo MD in OV> 05/17/241745 DD/ 44 TD/TT: 05/17/241744 Fare Register Repairer: [facility] External Provider IMG XR PROCEDURES Final Result * HOLD LT BLUE - POSSIBLE COAG (05/17/2024 4:44 PM EDT) Hold Lt Blue - Possible Coag SEE NOTE [facility] Comment:Specimen will be hel d untested for 4 hours. Call Hematologyif testing is desired. 05/17/2024 4:44 PM EDT 05/17/2024 4:47 PM EDT Generic External Data Provider LAB BLOOD ORDERAB LES Final Result [facility] [address] [place] [phone] * SARS-CoV-2 RNA, Influenza A/B, and RSV RNA, Ql NAAT (05/17/2024 4:43 PM EDT) Influenza A PCR NEGATIVE Negative [facility] Influenza B PCR NEGATIVE Negative [facility] Resp Syncy Virus RNA Qual PCR NEGATIVE Negative [facility] SARS COV2 PCR NEGATIVE Negative [facility] Comment:All test results mus t be [...] use by authorized laboratories.Testing performed on the [employer] GeneXpert utilizingreal-time RT-PCR.All SARS CoV2 and positive influenza A/B results arereported to [facility]. 05/17/2024 4:43 PM EDT 05/17/2024 4:46 PM EDT Generic External Data Provider LAB MICROBIOLOGY - GENERAL ORDERABLES Final Result Performing Organization Address [facility] Co de Phone Number [facility] [address] [place] [phone] * High Sensitivity Troponin I (05/17/2024 4:43 PM EDT) [facility] TROPONIN I HIGH SENSITIVITY <2.7 <3.5 - 17.0 ng/L [facility] Comment:The Dinh high sens itivity Troponin-I results should beused in conjunction with other diagnostic information suchas ECG, clinical observations and information, and patientsymptoms to aid in the diagnosis of MO. 05/17/2024 4:43 PM EDT 05/17/2024 4:46 PM EDT Generic External Data Provider LAB BLOOD ORDERAB LES Final Result Performing Organization Address [facility] Co de Phone Number [facility] [address] [place] [phone] * B Type Natriuretic Peptide (BNP) (05/17/2024 4:43 PM EDT) [facility] B Type Natriuretic Peptide <10 <100 pg/mL [facility] 05/17/2024 4:43 PM EDT 05/17/2024 4:46 PM EDT Generic External Data Provider LAB BLOOD ORDERAB LES Final Result Performing Organization Address [facility]/ZIP Co de Phone Number [facility] [address] [place] [phone] * Magnesium (05/17/2024 4:43 PM EDT) Magnesium 1.6 1.6 - 2.6 mg/dL [facility] 05/17/2024 4:43 PM EDT 05/17/2024 4:46 PM EDT Generic External Data Provider LAB BLOOD ORDERAB LES Final Result Performing Organization Address [facility] de Phone Number [facility] [address] [place] [phone] * (ABNORMAL) Comprehensive Metabolic Panel (05/17/2024 4:43 PM EDT) Sodium 143 135 - 145 mmol/L [facility] Potassium 4.1 3.3 - 5.1 mmol/L [facility] Chloride 110(H) 96 - 108 mmol/L [facility] Carbon Dioxide 24 22 - 29 mmol/L [facility] Anion Gap 13 12 - 20 [facility] Urea Nitrogen (BUN) 13 9 - 16 mg/dL [facility] Creatinine, Serum 0.82 0.5 - 1.4 mg/dL [facility] Creatinine Clr Calc Pharmacy 53.6 [facility] Comment:Provided height and weight: 152.4 cm,54.431 kg.eGFR (calculated from the MDRD study equation) and eCrCl(calculated from the Cockcroft-Gault equation) are based ondifferent parameters and may not yield comparable results.If eCrCl result is absurd, please check patient'sheight/weight. Estimated Glomerular Filt Rate >60 [facility] Comment:Chronic Kidney Disea se: Estimated GFR < 60 mL/min/1.58i9Xblgci Kidney Disease: Estimated GFR < 15 mL/min/1.73m2 Glucose 111 60 - 115 mg/dL [facility] Calcium 9.1 8.4 - 10.2 mg/dL [facility] Bilirubin, Total 0.4 0.0 - 1.0 mg/dL [facility] Aspartate Amino Transferase 40(H) 5 - 31 U/L [facility] Alanine Aminotransferase 76(H) 0 - 31 U/L [facility] Total Protein 6.0(L) 6.5 - 8.0 g/dL [facility] Albumin Level 3.8 3.5 - 5.0 g/dL [facility] Alkaline Phosphatase 127(H) 39 - 117 U/L [facility] 05/17/2024 4:43 PM EDT 05/17/2024 4:46 PM EDT us Generic External Data Provider LAB BLOOD ORDERAB LES Final Result [facility] [address] [place] [phone] * (ABNORMAL) Complete Blood Count Manual Diff (05/17/2024 4:43 PM EDT) White Blood Count 4.1(L) 4.8 - 10.8 X10*3/uL [facility] Red Blood Count 3.36(L) 4.20 - 5.50 X10*6/uL [facility] Hemoglobin 11.4(L) 12.0 - 16.0 g/dl [facility] Hematocrit 32.8(L) 37.0 - 47.0 % [facility] Mean Corpuscular Volume 97.6 80.0 - 98.0 fL [facility] Mean Corpuscular Hemoglobin 33.9(H) 27.0 - 33.0 pg [facility] Mean Corpuscular HGB Conc 34.8 31.0 - 35.0 g/dl [facility] Red Cell Distribution Width 18.7(H) 11.0 - 16.0 % [facility] Platelet Count 85(L) 160 - 400 X10*3/uL [facility] Mean Platelet Volume 10.3 9.4 - 12.3 fL [facility] NRBC Pct Auto 0.0 0.0 - 0.2 /100WBC [facility] NRBC Abs Auto 0.000 0.0 - 0.012 X10*3/uL [facility] Neutrophils % Manual 59 45 - 73 % [facility] Band Neutrophils Percent 6(H) 3 - 5 % [facility] Lymphocytes Percent Manual 27 20 - 40 % [facility] Monocytes Percent Manual 8 2 - 11 % [facility] NEUTROPHILS ABSOLUTE MANUAL 2.7 2.0 - 8.3 X10*3/uL [facility] LYMPHOCYTES ABSOLUTE MANUAL 1.1(L) 1.2 - 4.9 X10*3/uL [facility] MONOCYTES ABSOLUTE MANUAL 0.3 0.1 - 1.2 X10*3/uL [facility] Platelet Estimate DECREASED NORMAL [facility] Platelet Morphology Comment NORMAL [facility] RBC Morphology NOTED [facility] Tear Drop Cells 1+ (0-2) /OIF [facility] 05/17/2024 4:43 PM EDT 05/17/2024 4:46 PM EDT us Generic External Data Provider LAB BLOOD ORDERAB LES Final Result [facility] [address] [place] [phone] documented in this encounter Visit Diagnoses Not on filedocumented in this encounter Additional Health Concerns Assessment Noted Time PHQ-9 Depression Total Score: 24 025 9:26 AM EST documented as of this encounter Care Teams Refining Machine Operator Relationship Specialty Start Date End Date Giana Isbell MD [address] [place] [phone] PCP - General Internal Medicine 09/07/18 documented as of this encounter
--- OUTSIDE RECORDS SUMMARY | 2024-05-17 18:04 | XMS_ITS | Encounter Summary ---
Author Organization [employer] Address [address] [place] [address] 7 [place] [address] Care Team Providers Care Client Care Consultant Name Role Phone Giana Isbell MD Primary Care Provider [phone] Reason for Visit * Reason Comments Med Refill Encounter Details Date Type Department Care Team ([facility] Contact Info) Description 03/31/2022 Refill [facility] [address] [place] [address] Giana Isbell MD [address] [place] [address] Acquired hypothyroidism (Primary Dx); Other constipation; Depressive [...] Team ([facility] Contact Info) Description 06/26/2024 1:30 PM EDT Office Visit [facility] [address] [place] [address] Giana Isbell MD [address] [place] [address] documented as of this encounter Visit Diagnoses Diagnosis Acquired hypothyroidism- Primary Unspecified hypothyroidism Other constipation Depressive disorder Depressive disorder, not elsewhere classified Seasonal allergies Allergic rhinitis, cause unspecified Migraine without aura and without status migrainosus, not intractable documented in this encounter Care Teams Client Care Consultant Relationship Specialty Start Date End Date Giana Isbell MD [address] [place] [id number] PCP - General Internal Medicine 09/07/18 documented as of this encounter
--- OUTSIDE RECORDS SUMMARY | 2024-05-17 18:04 | XMS_ITS | Encounter Summary ---
Author Organization [employer] Address [address] [facility] 7t [place] [address] Care Team Providers Care Electric Utility Lineworker Name Role Phone Giana Isbell MD Primary Care Provider [phone] Encounter Details Date Type Department Care Team (Latest Contact Info) Description 11/13/2020 Abstract [facility] CONVERSIONS Dental, Provider, DDS Social History [...] [facility] [address] [place] [address] Giana Isbell MD [address] [place] [address] documented as of this encounter Visit Diagnoses Not on filedocumented in this encounter Care Teams Electric Utility Lineworker Relationship Specialty Start Date End Date Giana Isbell MD [address] [place] [address] PCP - General Internal Medicine 09/07/18 documented as of this encounter
--- OUTSIDE RECORDS SUMMARY | 2024-05-17 18:04 | XMS_ITS | Encounter Summary ---
Author Organization [employer] Address [address] [facility] 7t [place] [address] Care Team Providers Care General Operations Manager Name Role Phone Giana Isbell MD Primary Care Provider [phone] Encounter Details Date Type Department Care Team ([facility] Contact Info) Description 02/17/2024 Orders Only [facility] [address] [place] [address] Provider, MD Kathi Social History Tobacco Use [...] Description 06/26/2024 1:30 PM EDT Office Visit [facility] [address] [place] [address] Giana Isbell MD [address] [place] [address] documented as of this encounter Procedures Procedure [...] documented as of this encounter Care Teams General Operations Manager Relationship Specialty Start Date End Date Giana Isbell MD [address] [place] [address] PCP - General Internal Medicine 09/07/18 documented as of this encounter
--- OUTSIDE RECORDS SUMMARY | 2024-05-17 18:04 | XMS_ITS | Encounter Summary ---
Author Organization [employer] Address [address] [facility] 7t [place] [address] Care Team Providers Care Maritime Guard Name Role Phone Giana Isbell MD Primary Care Provider [phone] Encounter Details Date Type Department Care Team ([facility] st Contact Info) Description 05/06/2023 Orders Only [facility] [address] [place] [address] Giana Isbell MD [address] [place] [address] Acquired hypothyroidism (Primary Dx) Social History Tobacco [...] Description 06/26/2024 1:30 PM EDT Office Visit [facility] [address] [place] [address] Giana Isbell MD [address] [place], [place] [phone] documented as of this encounter Procedures Procedure Name Priority Date/Time Associated Diagnosis Comments TSH W/REFLEX TO FT4 Routine 02/06/2024 10:45 AM EST Acquired hypothyroidism documented in this encounter Results * (ABNORMAL) TSH W/Reflex to FT4 (02/06/2024 10:45 AM EST) TSH reflex Free T4 10.06(H) 0.32 - 4.0 uIU/mL [facility] Blood Venous blood specimen / Unknown 02/06/2024 10:45 AM EST 02/06/2024 10:45 AM EST Giana Isbell MD LAB BLOOD ORDERABLES Final Result [facility] [address] [place] [address] [phone] documented in this encounter Visit Diagnoses Diagnosis Acquired hypothyroidism- Primary Unspecified hypothyroidism documented in this encounter Additional Health Concerns Assessment Noted Time PHQ-9 Depression Total Score: 7 07/30/19 23 10:13 AM EDT documented as of this encounter Care Teams Maritime Guard Relationship Specialty Start Date End Date Giana Isbell MD [address] [place] [address] PCP - General Internal Medicine 09/07/18 documented as of this encounter
--- OUTSIDE RECORDS SUMMARY | 2024-05-17 18:04 | XMS_ITS | Encounter Summary ---
Author Organization [employer] Address [address] [place] [address] 7 [place] [address] Care Team Providers Care Final Cleaner Name Role Phone Giana Isbell MD Primary Care Provider [phone] Reason for Referral * Imaging (Urgent) - Closed Specialty Diagnoses / Procedures Referred By Ervin chávez Referred To Contact Radiology Diagnoses Elevated alkaline phosphatase level Procedures US Abdomen Complete Giana Isbell MD [address] [place] [address] Phone: tel: fax: [address] Phone: tel: fax: Referral ID Status Reason Start Date Expiration Date Visits Re quested Visits Authorized [id number] Closed 02/17/2023 02/17/2024 1 1 Encounter Details Date Type Department Care Team (Late st Contact Info) Description 02/17/2023 Orders Only [facility] [address] [place], [place] [phone] Giana Isbell MD [address] [place], [place] [phone] Elevated alkaline phosphatase level (Primary Dx); Left [...] Upcoming Encounters Date Type Department Care Team ([facility] st Contact Info) Description 06/26/2024 1:30 PM EDT Office Visit [facility] [address] [place] [address] Giana Isbell MD [address] [place] [address] documented as of this encounter Procedures Procedure Name Priority Date/Time Associated Diagnosis Comments US ABDOMEN COMPLETE Urgent 03/21/2023 9 :29 AM EST Elevated alkaline phosphatase level documented in this encounter Results * US Abdomen Complete (03/21/2023 9:29 AM EST) Anatomical Region Laterality Modality Abdomen Ultrasound 03/21/2023 9:29 AM EST Narrative 03/22/2023 9:16 AM EST ? [facility] [facility] ?[address] ?[place] [address] ? Ultrasound Report ? Signed ? Patient: Tamia Sánchez,Tory ?MR#: [id number] ?? [id number] ? : 1965 ?Acct:[id number] ? Age/Sex: 57 / F ?ADM Date: 03/21/23 ? Loc: HO.US ? Attending Dr: Giana Isbell MD ? Ordering Physician: Giana Isbell MD ?? Date of Service: 03/21/23 ?? Procedure(s): US abdomen complete ?? Accession Number(s): [id number] ? cc: Giana Isbell MD ? EXAMINATION: [...] 03/22/23911 ? DD/ 0929 ? TD/TT: ? [employer]: ? Procedure Note Trish, Image - 03/22/2023 [place] [address] Ultrasound Report Signed Patient: Pat Bush#: [id number] : 1965Acct:[id number] Age/Sex: 57 / FADM Date: 03/21/23 Loc: HO.US Attending Dr: Giana Isbell MD Ordering Physician: Giana Isbell MD Date of Service: 03/21/23 Procedure(s): US abdomen complete Accession Number(s): [id number] cc: Giana Isbell MD EXAMINATION: US ABDOMEN [...] MD in OV> 03/22/23911 DD/ 8 TD/TT: [employer]: us Giana Isbell MD IMG US PROCEDURES Final Res ult documented in this encounter Visit Diagnoses Diagnosis Elevated alkaline phosphatase level- Primary Left upper quadrant abdominal pain documented in this encounter Additional Health Concerns Assessment Noted Time PHQ-9 Depression Total Score: 7 07/30/19 23 10:13 AM EDT documented as of this encounter Care Teams Final Cleaner Relationship Specialty Start Date End Date Giana Isbell MD [address] [place] [address] PCP - General Internal Medicine 09/07/18 documented as of this encounter
--- OUTSIDE RECORDS SUMMARY | 2024-05-17 18:04 | XMS_ITS | Clinical Summary ---
Author Organization [facility] [employer] Address [address] [facility] [address] [place] [address] Care Team Providers Care Slat Pickler Name Role Phone Giana Isbell MD Primary Care Provider [phone] Allergies Active Allergy Reactions Criticality Noted Date Comments Acetaminophen Unknown 07/17/2022 Hydrocodone Other,Hives 12/13/2011 Other reaction(s): Altered Heart Rate Outside Source Comment: Other reaction(s): Altered Heart Rate Hydrocodone-Acetaminophe n 10/25/2023 Penicillin G Rash Low 04/12/2022 Penicillins Rash,Unknown,Hives Low 02/19/2010 Medications docusate sodium (Colace) 100 MG capsuleIndications :Other constipation TAKE 1 CAPSULE BY MOUTH AT BEDTIME NEEDED 30 capsule 5 03/31/19 23 Active nortriptyline (Pamelor) 50 MG capsule Take 100 mg by mouth in the morning. 04/01/19 23 Active QUEtiapine (SEROquel) 100 MG tablet Take 100 mg by mouth if needed at bedtime. 05/29/19 23 Active sertraline (Zoloft) 100 MG tablet TAKE 1 AND 1/2 TABLETS BY MOUTH EVERY MORNING 05/29/19 23 Active famotidine (Pepcid) 20 MG tabletIndications: Epigastric pain Take 1 tablet (20 mg) by mouth 2 times daily. 60 tablet 11 05/05/19 24 Active Ketotifen Fumarate (Zaditor) 0.035 % solution Administer 1 drop into affected eye(s) if needed in the morning and at bedtime (itching). 10 mL 08/02/19 24 Active pantoprazole (ProtoNix) 20 MG EC tablet TAKE 1 TABLET BY MOUTH EVERY MORNING NEEDED FOR HEARTBURN 10/03/19 24 Active fluticasone (Flonase) 50 MCG/ACT nasal sprayIndications:S easonal allergies INSTILL 1-2 SPRAYS IN EACH NOSTRIL ONCE DAILY NEEDED 16 g 5 10/26/19 24 Active D3 Super Strength 50 MCG (1999 UT) capsuleIndications :Vitamin D deficiency TAKE 1 CAPSULE BY MOUTH EVERY DAY 30 capsule 5 10/26/19 24 Active Elastic Bandages & Supports (Knee Support) miscIndications:Le ft hip pain H/o knee instability. 2 each 12/06/19 24 Active chlorhexidine (Peridex) 0.12 % solution Swish 15 mL morning and night for 1 minute. Spit, do not swallow. Do not eat or drink for 30 minutes following use. 473 mL 12/07/19 24 Active dexAMETHasone (Decadron) 2 MG tablet TAKE 1 TABLET BY MOUTH TWICE DAILY START NIGHT BEFORE CHEMOTHERAPY AND 2 DAYS AFTER 03/02/19 25 Active Diclofenac Sodium 1 % gel Apply 4 g topically if needed in the morning, at noon, in the evening, and at bedtime. Left hip 01/27/20 24 Active nystatin-triamcino lone (Mycolog II) cream APPLY TO THE AFFECTED AREA(S) TOPICALLY THREE TIMES DAILY 03/09/19 25 Active ondansetron ODT (Zofran-ODT) 8 MG disintegrating tablet Take 1 tablet by mouth every 8 (eight) hours if needed for vomiting or nausea. 03/02/19 25 Active polyethylene glycol, PEG, 3350 (Miralax) 17 g packet Take 17 g by mouth Once per day. 03/08/19 25 Active SUMAtriptan (Imitrex) 50 MG tablet Take 1 tablet by mouth if needed each day for migraine. 02/15/19 25 Active Albuterol-Budesoni de (Airsupra) 90-80 MCG/ACT aerosol Inhale 3 Inhalations Once per day. Active calcium carbonate (Os-Norberto) 1250 (500 Ca) MG chewable tablet Chew 1 tablet if needed each day for heartburn. Active levothyroxine (Synthroid) 125 MCG tabletIndications: Acquired hypothyroidism Take 1 tablet (125 mcg) by mouth before breakfast. 30 tablet 11 03/28/19 25 026 Active albuterol (2.5 MG/3ML) 0.083% nebulizer solutionIndication s:SOB (shortness of breath),Bronchopne umonia Take 3 mL (2.5 mg) by nebulization every 6 (six) hours if needed for wheezing. 75 mL 03/28/19 25 026 Active capsaicin (Zostrix) 0.025 % creamIndications:C hronic pain of left knee APPLY TO THE AFFECTED AREA(S) 1 GRAM TWICE DAILY 60 g 04/18/19 25 Active hydrocortisone 0.5 % cream APPLY 1 GRAM TOPICALLY TO AFFECTED AREA(S) TWICE DAILY DIRECTED 56.8 g 04/18/19 25 Active venlafaxine (Effexor) 37.5 MG tabletIndications: Depressive disorder TAKE 1 TABLET BY MOUTH TWICE DAILY 60 tablet 5 04/18/19 25 Active dextran 70-hypromellose (artificial tears) 0.1-0.3 % ophthalmic solutionIndication s:Dry eyes, bilateral Administer 1 drop into both eyes if needed in the morning, at noon, and at bedtime for dry eyes. 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 Closed fracture of tooth 12/16/2023 Pre-diabetes 12/06/2023 Fractured dental religious without loss of mat erial 12/06/2023 Transaminitis [...] diagnostic mammo and breast US, [place] [facility] [place]ervical cancer screening 10/25/2023 Assessment & Plan [...] Encounters Date Type Department Care Team Description 05/17/2024 Orders Only GENERIC EXTERNAL DATA DEPARTMENT Provider, Generic External Data 04/17/2024 2:30 PM EDT Office Visit [facility] OPTOMETRY [address] [place], [place] [phone] Tarka, Dee, OD Dry eyes, bilateral (Primary Dx); Regular astigmatism, bilateral 04/17/2024 Travel 04/15/2024 Refill [facility] [address] [place], [place] [phone] Giana Isbell MD Chronic pain of left knee; Depressive disorder 04/12/2024 Orders Only [facility] MEDICINE [address] [place] [phone] Giana Isbell MD Bronchopneumonia (Primary Dx) 04/02/[address] [address] Giana Isbell MD Medication Question 03/28/2024 9:15 AM EST Office Visit [facility] [address] [place] [address] Giana Isbell MD Acute cough (Primary Dx); Acquired hypothyroidism; SOB (shortness of breath); Bronchopneumonia 03/28/2024 Travel 03/20/2024 Patient Outreach [address] [address] Giana Isbell MD Transition Of Care (Tcm) (HDF scheduled and SDOH screening negative and Tobacco screening negative) 03/19/2024 Patient Outreach [address] [address] Giana Isbell MD Transition Of Care (Tcm) (HDF unscheduled LVM ) 03/19/[address] [address] Giana Isbell MD Hospital Follow-up 03/13/2024 Orders Only GENERIC EXTERNAL DATA DEPARTMENT Provider, Generic External Data 02/24/2024 Telephone [facility] [address] [place] [address] Lou Gonzalez MD 02/23/2024 Telephone [facility] [address] [place] [phone] Giana Isbell MD 02/22/2024 3:30 PM EST Office Visit [facility] [address] [place] [address] Giana Isbell MD Functional urinary incontinence (Primary Dx); Infiltrating ductal carcinoma of right breast ([facility]) 02/22/2024 Orders Only [facility] External Provider, [facility] 02/22/2024 Travel 02/21/2024 Telephone [facility] [address] [place] [address] Giana Isbell MD Chart Prep 02/17/2024 Orders Only [facility] Information Management [address] [place], [place] [phone] ProviderKathi MD from Last 3 Months Immunizations Name [...] Office Visit [facility] [address] [place], [place] [phone] Giana Isbell MD [address] [place] [address] Health Maintenance Due Date Last Done Comments [...] oned from 10/09/2023 (Patient Refused) Depression Monitoring 09/25/2024 03/28/2024, 025 Diabetes: Hemoglobin A1C 12/05/2024 024, 10/20/2023, 08/27/2021, [...] TROPONIN I Routine 05/17/2024 4:43 PM EDT B TYPE NATRIURETIC PEPTIDE (BNP) Routine 05/17/2024 4:43 PM EDT MAGNESIUM Routine 05/17/2024 4:43 PM EDT COMPREHENSIVE METABOLIC PANEL Routine 05/17/2024 4:43 PM EDT COMPLETE BLOOD COUNT MAN DIF Routine 05/17/2024 4:43 PM EDT SARS COV2/INFLUENZA A/B AND RSV RNA QL NAAT Routine 05/17/2024 4:43 PM EDT XR CHEST 2 VIEWS Routine 04/19/2024 8:35 [...] BIOPSY LEFT Routine 02/22/2024 11:14 AM EST PANORAMIC RADIOGRAPHIC IMAGE Routine 12/06/2023 [...] to Health Maintenance Results * XR Chest 1 View (05/17/2024 5:45 PM EDT) Only the most recent of2 resultswithin the time period is included. Anatomical Region Laterality Modality Chest Radiographic Laura ging 05/17/2024 5:45 PM EDT Narrative 05/17/2024 5:46 PM EDT ? [facility] ?[address] ?[place] [address] ?XRay Report ? Signed ? Patient: Tory Bush ?MR#: [id number] ?? [id number] ? : 1965 ?Acct:[id number] ? Age/Sex: 58 / F ?ADM Date: 05/17/24 ? Loc: HO.ED ? Attending Dr: ? Ordering Physician: Adriana Robb MD ?? Date of Service: 05/17/24 ?? Procedure(s): XR chest 1V ?? Accession Number(s): [id number] ? cc: Giana Isbell MD; Adriana Robb MD ? CLINICAL HISTORY: sob, chest pain ? 1 view chest x-ray ? Comparison: CR/TN/SR - XR CHEST 2V - 04/19/24 08:49 [...] signed by Vanna Pelayo MD in OV> ?05/17/241745 ? DD/ 44 ? TD/TT: 05/17/241744 ? Store Leader: ? Procedure Note Donotshirleneinterpreter, Image - 05/17/[address] [address] XRay Report Signed Patient: Pat Bush#: [id number] : 1965Acct:[id number] Age/Sex: 58 / FADM Date: 05/17/24 Loc: .ED Attending Dr: Ordering Physician: Adriana Robb MD Date of Service: 05/17/24 Procedure(s): XR chest 1V Accession Number(s): [id number] cc: Giana Isbell MD; Adriana Robb MD CLINICAL HISTORY: sob, chest pain 1 view chest x-ray Comparison: CR/TN/SR - XR CHEST 2V - 04/19/24 08:49 [...] in OV> 05/17/241745 DD/ 44 TD/TT: 05/17/241744 Store Leader: us [facility] External Provider IMG XR PROCEDURES Final Result * HOLD LT BLUE - POSSIBLE COAG (05/17/2024 4:44 PM EDT) Pathologist [facility] Hold Lt Blue - Possible Coag SEE NOTE [facility] Comment:Specimen will be hel d untested for 4 hours. Call Hematologyif testing is desired. 05/17/2024 4:44 PM EDT 05/17/2024 4:47 PM EDT Generic External Data Provider LAB BLOOD ORDERAB LES Final Result Performing Organization Address [facility] de Phone Number [facility] [address] [place] [phone] * High Sensitivity Troponin I (05/17/2024 4:43 PM EDT) Only the most recent of3 resultswithin the time period is included. [facility] TROPONIN I HIGH SENSITIVITY <2.7 <3.5 - 17.0 ng/L [facility] Comment:The Dinh high sens itivity Troponin-I results should beused in conjunction with other diagnostic information suchas ECG, clinical observations and information, and patientsymptoms to aid in the diagnosis of PA. 05/17/2024 4:43 PM EDT 05/17/2024 4:46 PM EDT [employer] External Data Provider LAB BLOOD ORDERAB LES Final Result Performing Organization Address [facility] de Phone Number [facility] [address] [place] [phone] * (ABNORMAL) Complete Blood Count Manual Diff (05/17/2024 4:43 PM EDT) Only the most recent of2 resultswithin the time period is included. [facility] White Blood Count 4.1(L) 4.8 - 10.8 X10*3/uL [facility] Red Blood Count 3.36(L) 4.20 - 5.50 X10*6/uL [facility] Hemoglobin 11.4(L) 12.0 - 16.0 g/dl [facility] Hematocrit 32.8(L) 37.0 - 47.0 % [facility] Mean Corpuscular Volume 97.6 80.0 - 98.0 fL [facility] Mean Corpuscular Hemoglobin 33.9(H) 27.0 - 33.0 pg [facility] Mean Corpuscular HGB Conc 34.8 31.0 - 35.0 g/dl [facility] Red Cell Distribution Width 18.7(H) 11.0 - 16.0 % [facility] Platelet Count 85(L) 160 - 400 X10*3/uL [facility] Mean Platelet Volume 10.3 9.4 - 12.3 fL [facility] NRBC Pct Auto 0.0 0.0 - 0.2 /100WBC [facility] NRBC Abs Auto 0.000 0.0 - 0.012 X10*3/uL [facility] Neutrophils % Manual 59 45 - 73 % [facility] Band Neutrophils Percent 6(H) 3 - 5 % [facility] Lymphocytes Percent Manual 27 20 - 40 % [facility] Monocytes Percent Manual 8 2 - 11 % [facility] NEUTROPHILS ABSOLUTE MANUAL 2.7 2.0 - 8.3 X10*3/uL [facility] LYMPHOCYTES ABSOLUTE MANUAL 1.1(L) 1.2 - 4.9 X10*3/uL [facility] MONOCYTES ABSOLUTE MANUAL 0.3 0.1 - 1.2 X10*3/uL [facility] Platelet Estimate DECREASED NORMAL [facility] Platelet Morphology Comment NORMAL [facility] RBC Morphology NOTED [facility] Tear Drop Cells 1+ (0-2) /OIF [facility] 05/17/2024 4:43 PM EDT 05/17/2024 4:46 PM EDT us Generic External Data Provider LAB BLOOD ORDERAB LES Final Result [facility] [address] [place] [phone] * SARS-CoV-2 RNA, Influenza A/B, and RSV RNA, Ql NAAT (05/17/2024 4:43 PM EDT) Only the most recent of2 resultswithin the time period is included. Influenza A PCR NEGATIVE Negative [facility] Influenza B PCR NEGATIVE Negative [facility] Resp Syncy Virus RNA Qual PCR NEGATIVE Negative [facility] SARS COV2 PCR NEGATIVE Negative [facility] Comment:All test results mus t be [...] use by authorized laboratories.Testing performed on the [employer] GeneXpert utilizingreal-time RT-PCR.All SARS CoV2 and positive influenza A/B results arereported to [facility]. 05/17/2024 4:43 PM EDT 05/17/2024 4:46 PM EDT Generic External Data Provider LAB MICROBIOLOGY - GENERAL ORDERABLES Final Result Performing Organization Address [facility] Co de Phone Number [facility] [address] [place] [phone] * B Type Natriuretic Peptide (BNP) (05/17/2024 4:43 PM EDT) Only the most recent of2 resultswithin the time period is included. Pathologist [facility] B Type Natriuretic Peptide <10 <100 pg/mL [facility] 05/17/2024 4:43 PM EDT 05/17/2024 4:46 PM EDT Generic External Data Provider LAB BLOOD ORDERAB LES Final Result Performing Organization Address [facility]/ZIP Co de Phone Number [facility] [address] [place] [phone] * Magnesium (05/17/2024 4:43 PM EDT) Only the most recent of2 resultswithin the time period is included. Magnesium 1.6 1.6 - 2.6 mg/dL [facility] 05/17/2024 4:43 PM EDT 05/17/2024 4:46 PM EDT us Generic External Data Provider LAB BLOOD ORDERAB LES Final Result [facility] [address] [place] [phone] * (ABNORMAL) Comprehensive Metabolic Panel (05/17/2024 4:43 PM EDT) Sodium 143 135 - 145 mmol/L [facility] Potassium 4.1 3.3 - 5.1 mmol/L [facility] Chloride 110(H) 96 - 108 mmol/L [facility] Carbon Dioxide 24 22 - 29 mmol/L [facility] Anion Gap 13 12 - 20 [facility] Urea Nitrogen (BUN) 13 9 - 16 mg/dL [facility] Creatinine, Serum 0.82 0.5 - 1.4 mg/dL [facility] Creatinine Clr Calc Pharmacy 53.6 [facility] Comment:Provided height and weight: 152.4 cm,54.431 kg.eGFR (calculated from the MDRD study equation) and eCrCl(calculated from the Cockcroft-Gault equation) are based ondifferent parameters and may not yield comparable results.If eCrCl result is absurd, please check patient'sheight/weight. Estimated Glomerular Filt Rate >60 [facility] Comment:Chronic Kidney Disea se: Estimated GFR < 60 mL/min/1.05w1Zmtvxb Kidney Disease: Estimated GFR < 15 mL/min/1.73m2 Glucose 111 60 - 115 mg/dL [facility] Calcium 9.1 8.4 - 10.2 mg/dL [facility] Bilirubin, Total 0.4 0.0 - 1.0 mg/dL [facility] Aspartate Amino Transferase 40(H) 5 - 31 U/L [facility] Alanine Aminotransferase 76(H) 0 - 31 U/L [facility] Total Protein 6.0(L) 6.5 - 8.0 g/dL [facility] Albumin Level 3.8 3.5 - 5.0 g/dL [facility] Alkaline Phosphatase 127(H) 39 - 117 U/L [facility] 05/17/2024 4:43 PM EDT 05/17/2024 4:46 PM EDT us Generic External Data Provider LAB BLOOD ORDERAB LES Final Result Performing Organization Address [facility]/State/ZIP Co de Phone Number [facility] [address] [place] [phone] * XR Chest 2 Views (04/19/2024 8:35 AM EDT) Anatomical Region Laterality Modality Chest Radiographic Laura ging 04/19/2024 8:35 AM EDT Narrative 04/19/2024 9:48 AM EDT ? [facility] ?[address] ?[place] [address] ?XRay Report ? Signed ? Patient: Tamia CoynecaTory ?MR#: [id number] ?? [id number] ? : 1965 ?Acct:[id number] ? Age/Sex: 58 / F ?ADM Date: 04/19/ ? Loc: HO.LAB ? Attending Dr: Giana Isbell MD ? Ordering Physician: Giana Isbell MD ?? Date of Service: 04/19/24 ?? Procedure(s): XR chest 2V ?? Accession Number(s): [id number] ? cc: Giana Isbell MD ? EXAMINATION: [...] DD/ 0835 ? TD/TT: 04/19/24 0845 ? Store Leader: ? Procedure Note Trish, Image - 04/19/[address] [address] XRay Report Signed Patient: Pat Bush#: [id number] : 1965Acct:[id number] Age/Sex: 58 / FADM Date: 04/19/24 Loc: HO.LAB Attending Dr: Giana Isbell MD Ordering Physician: Giana Isbell MD Date of Service: 04/19/24 Procedure(s): XR chest 2V Accession Number(s): [id number] cc: Giana Isbell MD EXAMINATION: XR CHEST [...] Ant Cole MD 04/19/2024 09:45 AM EDT RP Dictated By: Ant Cole MD Signed By: <Electronically signed by Ant Cole MD in OV> 04/19/24 0945 DD/ TD/TT: 04/19/2445 Store Leader: us Giana Isbell MD IMG XR PROCEDURES Edited Re sult - Final * BI US Breast Limited Right (04/09/2024 12:30 PM EST) Anatomical Region Laterality Modality Breast Right Ultrasound 04/09/2024 12:3 0 PM EST Narrative 04/09/2024 1:08 PM EST ? [facility] [place] ? [address] ?[place] [address] ? Ultrasound Report ? Signed ? Patient: Tory Bush ?MR#: [id number] ?? [id number] ? : 1965 ?Acct:[id number] ? Age/Sex: 58 / F ?ADM Date: 04/09/24 ? Loc: HO.MAMMO ? Attending Dr: Rhona Badillo MD ? Ordering Physician: Rhona Badillo MD ?? Date of Service: 04/09/24 ?? Procedure(s): US breast RT limited mamm only ?? Accession Number(s): [id number] ? cc: Giana Isbell MD; Rhona Badillo [...] signed by Carissa Raza, in OV> ? 04/09/24 1305 ? DD/ 1230 ? TD/TT: 04/09/24 1241 ? Store Leader: ? Procedure Note Trish, Image - 04/09/2024 [facility] [address] [place] [address] Ultrasound Report Signed Patient: Pat Bush#: [id number] : 1965Acct:[id number] Age/Sex: 58 / FADM Date: 04/09/24 Loc: HO.MAMMO Attending Dr: Rhona Badillo MD Ordering Physician: Rhona Badillo MD Date of Service: 04/09/24 Procedure(s): US breast RT limited mamm only Accession Number(s): [id number] cc: Giana Isbell MD; Rhona Badillo MD [...] 04/09/24 1305 DD/ 1230 TD/TT: 04/09/24 1241 Store Leader: [facility] External Provider IMG US PROCEDURES Final Result * Lactic Acid (03/13/2024 6:39 PM EST) Lactic Acid 1.0 0.5 - 2.0 mmol/L [facility] 03/13/2024 6:39 PM EST 03/13/2024 6:41 PM EST Generic External Data Provider LAB BLOOD ORDERAB LES Final Result [facility] [address] [place] [phone] * CTA Chest PE Protocal (03/13/2024 4:24 PM EST) Anatomical Region Laterality Modality Body, Chest Computed Tomogra phy 03/13/2024 4:24 PM EST Narrative 03/13/2024 5:03 PM EST ? [facility] ?[address] ?[place] [address] ? CT Scan Report ? Signed ? Patient: Tamia Sánchez,Tory ?MR#: [id number] ?? [id number] ? : 1965 ?Acct:[id number] ? Age/Sex: 58 / F ?ADM Date: 03/13/24 ? Loc: HO.ED ? Attending Dr: ? Ordering Physician: Kristi Bazan ?? Date of Service: 03/13/24 ?? Procedure(s): CT angio chest PE protocol ?? Accession Number(s): [id number] ? cc: Giana Isbell MD; Kristi Bazan ? Report Number: ?? [id number]: Total DLP = ??202.00 mGy-cm ?? EXAMINATION: [...] DD/ 1624 ? TD/TT: 03/13/24 1642 ? Store Leader: ? Procedure Note Eliud Chambers - 03/13/[address] [address] [address] Scan Report Signed Patient: Pat Bush#: [id number] : 1965Acct:[id number] Age/Sex: 58 / FADM Date: 03/13/24 Loc: HO.ED Attending Dr: Ordering Physician: Kristi Bazan Date of Service: 03/13/24 Procedure(s): CT angio chest PE protocol Accession Number(s): [id number] cc: Giana Isbell MD; Kristi Bazan Report Number: [id number]: Total DLP = 202.00 mGy-cm EXAMINATION: CT [...] 03/13/24 1700 DD/ 1624 TD/TT: 03/13/24 1642 Store Leader: [facility] External Provider IMG CT PROCEDURES Final Result * D Dimer High Sensitivity (03/13/2024 2:52 PM EST) [facility] D Dimer High Sensitivity 349 NG/ML [facility] Comment:D-DIMER HS REFERENCE RANGENote: Our [...] Provider LAB BLOOD ORDERAB LES Final Result [facility] [address] [place] [phone] * (ABNORMAL) CBC auto differential (03/13/2024 2:52 PM EST) White Blood Count 7.5 4.8 - 10.8 X10*3/uL [facility] Red Blood Count 4.75 4.20 - 5.50 X10*6/uL [facility] Hemoglobin 14.2 12.0 - 16.0 g/dl [facility] Hematocrit 41.9 37.0 - 47.0 % [facility] Mean Corpuscular Volume 88.2 80.0 - 98.0 fL [facility] Mean Corpuscular Hemoglobin 29.9 27.0 - 33.0 pg [facility] Mean Corpuscular HGB Conc 33.9 31.0 - 35.0 g/dl [facility] Red Cell Distribution Width 14.5 11.0 - 16.0 % [facility] Platelet Count 148(L) 160 - 400 X10*3/uL [facility] Mean Platelet Volume 9.7 9.4 - 12.3 fL [facility] Neutrophils Percent Auto 76.3(H) 45 - 73 % [facility] Imm Gran Pct Auto 0.3 0.0 - 0.4 % [facility] Lymphocytes Percent Auto 17.8(L) 20 - 40 % [facility] Monocytes Percent Auto 3.3 2 - 11 % [facility] Eosinophils Percent Auto 1.9 0 - 4 % [facility] Basophils Percent Auto 0.4 0 - 2 % [facility] NRBC Pct Auto 0.0 0.0 - 0.2 /100WBC [facility] Neutrophils Absolute Auto 5.8 2.0 - 8.3 x10*3/uL [facility] Imm Gran Abs Auto 0.02 0.00 - 0.03 X10*3/uL [facility] Lymphocytes Absolute Auto 1.3 1.2 - 4.9 X10*3/uL [facility] Monocytes Absolute Auto 0.3 0.1 - 1.2 X10*3/uL [facility] Eosinophils Absolute Auto 0.1 0.0 - 0.4 X10*3/uL [facility] Basophils Absolute Auto 0.0 0.0 - 0.2 X10*3/uL [facility] NRBC Abs Auto 0.000 0.0 - 0.012 X10*3/uL [facility] 03/13/2024 2:52 PM EST 03/13/2024 3:00 PM EST Generic External Data Provider LAB BLOOD ORDERAB LES Edited Result - Final Performing Organization Address [facility] de Phone Number [facility] [address] [place] [phone] * Prothrombin Time-INR (03/13/2024 2:52 PM EST) Prothrombin Time 11.1 10.9 - 12.4 SEC [facility] INTERNATIONAL NORM RATIO 1.0 0.9 - 1.1 [facility] Comment:INTERNATIONAL NORMAL IZED RATIO (INR) [...] ORDERAB LES Final Result Performing Organization Address [facility] de Phone Number [facility] [address] [place] [phone] * (ABNORMAL) Hepatic Function Panel (03/13/2024 2:52 PM EST) Bilirubin, Total 0.5 0.0 - 1.0 mg/dL [facility] Bilirubin, Direct 0.1 0.0 - 0.5 mg/dL [facility] Aspartate Amino Transferase 33(H) 5 - 31 U/L [facility] Comment:Slight Hemolysis.Int erpret result with caution. Alanine Aminotransferase 38(H) 0 - 31 U/L [facility] Total Protein 6.7 6.5 - 8.0 g/dL [facility] Albumin Level 3.7 3.5 - 5.0 g/dL [facility] Alkaline Phosphatase 161(H) 39 - 117 U/L [facility] 03/13/2024 2:52 PM EST 03/13/2024 3:00 PM EST us Generic External Data Provider LAB BLOOD ORDERAB LES Final Result [facility] [address] [place] [address] [phone] * (ABNORMAL) Basic Metabolic Panel (03/13/2024 2:52 PM EST) Sodium 140 135 - 145 mmol/L [facility] Potassium 4.0 3.3 - 5.1 mmol/L [facility] Comment:Slight Hemolysis.Int erpret result with caution. Chloride 109(H) 96 - 108 mmol/L [facility] Carbon Dioxide 22 22 - 29 mmol/L [facility] Anion Gap 13 12 - 20 [facility] Urea Nitrogen (BUN) 20(H) 9 - 16 mg/dL [facility] Creatinine, Serum 0.93 0.5 - 1.4 mg/dL [facility] Creatinine [facility] Comment:Provided height and weight: 160.02 cm,58.967 kg.eGFR (calculated from the MDRD study equation) and eCrCl(calculated from the Cockcroft-Gault equation) are based ondifferent parameters and may not yield comparable results.If eCrCl result is absurd, please check patient'sheight/weight. Estimated Glomerular Filt Rate >60 [facility] Comment:Chronic Kidney Disea se: Estimated GFR < 60 mL/min/1.02t3Uyggjw Kidney Disease: Estimated GFR < 15 mL/min/1.73m2 Glucose 123(H) 60 - 115 mg/dL [facility] Calcium 9.0 8.4 - 10.2 mg/dL [facility] 03/13/2024 2:52 PM EST 03/13/2024 3:00 PM EST us Generic External Data Provider LAB BLOOD ORDERAB LES Final Result [facility] [address] [place] [phone] * (ABNORMAL) POCT Urinalysis (02/22/2024 4:33 [...] Media Lot # [id number] Lot# Expiration Date [id number] Urine 02/22/2024 4:33 PM EST Giana Isbell MD POINT OF CARE TEST ENTER/ED IT ORDERABLES Final Result * BI Mammogram Diagnostic Tomosynthesis Left (02/22/2024 12:55 PM EST) Anatomical Region Laterality Modality Breast Left Mammography 02/22/2024 12:5 5 PM EST Narrative 02/23/2024 9:49 AM EST ? [facility] ?[address] ?[place] [address] ? Mammography Report ? Signed with Addenda ? Patient: Tory Bush ?MR#: [id number] ?? [id number] ? : 1965 ?Acct:[id number] ? Age/Sex: 58 / F ?ADM Date: 01/15/25 ? Loc: HO.MRI ? Attending Dr: Rhona Badillo MD ? Ordering Physician: Rhona Badillo MD ?Results: 1Negati ?? ve ? Date of Service: 02/22/24 ?Follow Up: 1 Year From Orig ?? inal Mammogram ? Procedure(s): MM tomosynthesis diagnostic LT ?? Accession Number(s): [id number] ? cc: Giana Isbell MD; Rhona Badillo [...] 1% lidocaine with epinephrine. ? NEEDLE: ?? Parking[employer] 9-gauge vacuum assisted core biopsy device. ? [...] DO ??02/23/2024 09:47 AM EST ?? Workstation: [place] [id number] ? Dictated By: ?Carissa Raza DO ? Signed By: ?<Electronically signed by Carissa Raza, DO in OV> ? 02/23/24 0947 ? DD/ 1255 ? TD/TT: 02/22/24 1305 ? Store Leader: ? Procedure Note Trish, Image - 03/02/[address] [address] Mammography Report Signed with Addenda Patient: Tasha BushKhang#: [id number] : 1965Acct:[id number] Age/Sex: 58 / FADM Date: 02/22/24 Loc: HO.MRI Attending Dr: Rhona Badillo MD Ordering Physician: Rhona Badillo MDResults: 1Negati ve Date of Service: 02/22/24Follow Up: 1 Year From Orig inal Mammogram Procedure(s): MM tomosynthesis diagnostic LT Accession Number(s): [id number] cc: Giana Isbell MD; Rhona Badillo MD [...] without and with use of gadolinium contrast. WoowUp introducer localization system is used with grid. LESION: Left retroareolar lower outer breast anterior depth.. LOCAL ANESTHESIA: 6 mL 1% lidocaine; 4 mL 1% lidocaine with epinephrine. NEEDLE: Cardia 9-gauge vacuum assisted core biopsy device. APPROACH: [...] 02/23/24 0947 DD/ 1255 TD/TT: 02/22/24 1305 Store Leader: [facility] External Provider IMG BI PROCEDURES Edited Result - Final * Hematoxylin and Eosin Stain (02/22/2024 12:27 PM EST) 02/22/2024 12:2 7 PM EST 02/22/2024 1:32 PM EST [facility] - 02/24/2024 2:51 PM EST ----- ------- Name: Tory Bush ?Age/Sex: 58/F ? : 1965 Unit#: [id number] ?? Attend Dr: Rhona Badillo MD ?Re02/22/24 ?Status: DEP REF ? Location: HO.MRI ?Disch: ? ----- ------- SPEC : [id number] ?RECD: 02/22/24 ? STATUS: ??SOUT ? REQ NUM: [id number] ? TEQUILA: 02/22/24-1227 ? SUBM DR: Carissa [...] Copies To: ?? Giana Isbell MD ?? [facility] ?? [address] ?? [place] [address] ?? [phone] ?? Rhona Badillo MD ?? [facility] ?? [address] [facility] ?? [place] [address] ?? [phone] ? CONTINUED ON NEXT PAGE ----- ------- Name: Tory Bush ?Age/Sex: 58/F ? : 1965 Unit#: [id number] ?? Attend Dr: Rhona Badillo MD ?Re02/22/24 ?Status: DEP REF ? Location: HO.MRI ?Disch: ? ----- ------- SPEC : [id number] ?RECD: 02/22/24 ? STATUS: ??SOUT ? REQ NUM: [id number] ? TEQUILA: 02/22/24-1226 ? SUBM DR: Carissa Raza DO ? ENTERED: ??02/22/24 ?SP TYPE: Surgical ? OTHR DR: Giana Isbell MD ?Rhona Badillo MD ORDERED: ??HE Stain/2, Gross Micro L4 ? COMMENTS: As per the specimen requisition slip the specimen is ?collected at 1227 and placed in formalin at 1240. Copies To: ??(Continued) ?? Carissa Raza DO ?? [address] ?? [place] [address] ?? [phone] ----- ------- Signed (signature on file) Osman Ríos MD 02/24/24 1451 ? ----- ------- ? END OF REPORT ? us Generic External Data Provider LAB BLOOD ORDERAB LES Final Result [facility] [address] [place] [phone] * BI MR Guided Breast Biopsy Left (02/22/2024 11:14 AM EST) Anatomical Region Laterality Modality Breast Left Magnetic Resonan ce 02/22/2024 11:1 4 AM EST Narrative 02/23/2024 9:50 AM EST ? [facility] ?[address] ?[place] [address] ? Magnetic Resonance Report ? Signed with Addenda ? Patient: Tamia Sánchez,Tory ?MR#: [id number] ?? [id number] ? : 1965 ?Acct:[id number] ? Age/Sex: 58 / F ?ADM Date: 01/15/25 ? Loc: HO.MRI ? Attending Dr: Rhona Badillo MD ? Ordering Physician: Rhona Badillo MD ?? Date of Service: 02/22/24 ?? Procedure(s): MR guided breast biopsy LT ?? Accession Number(s): [id number] ? cc: Giana Isbell MD; Rhona Badillo [...] DD/ 1114 ? TD/TT: 02/22/24 1230 ? Store Leader: ? Procedure Note Donotshirleneinterpreter, Image - 03/02/2024 [place] [address] Magnetic Resonance Report Signed with Fani Patient: Pat Bush#: [id number] : 1965Acct:[id number] Age/Sex: 58 / FADM Date: 02/22/24 Loc: .MRI Attending Dr: Rhona Badillo MD Ordering Physician: Rhona Badillo MD Date of Service: 02/22/24 Procedure(s): MR guided breast biopsy LT Accession Number(s): [id number] cc: Giana Isbell MD; Rhona Badillo MD [...] without and with use of gadolinium contrast. WoowUp introducer localization system is used with grid. LESION: Left retroareolar lower outer breast anterior depth.. LOCAL ANESTHESIA: 6 mL 1% lidocaine; 4 mL 1% lidocaine with epinephrine. NEEDLE: Cardia 9-gauge vacuum assisted core biopsy device. APPROACH: [...] by: Carissa Raza DO 02/23/2024 09:47 AM [facility] Dictated By: Carissa Raza DO Signed By: <Electronically signed by Carissa Raza DO in OV> 02/23/24 0947 DD/ 13 TD/TT: 02/22/24 1230 Store Leader: [facility] External Provider IMG MRI PROCEDURES [...] HPV nRNA E6/E7 Not Detected Not Detected [facility] Comment:Methodology: Transcr iption-Mediated AmplificationThis assay detects E6/E7 viral messenger RNA (mRNA) from 14high-risk HPV types (16,18,31,33,35,39,45,51,52,56,58,59,66,68).Cervical sources are required for HPV testing.If a vaginal source from a patient who has had atotal hysterectomy with removal of cervix wassubmitted, please contact the testing laboratoryfor alternative testing options.For additional information, please refer tohttp://education.INFOGRAPHIQS/faq/NYC746n4(This link if provided for information/educational purposes only.)THIS TEST WAS PERFORMED AT:[employer] [place] [phone] FISCHER MD SOURCE: SEE NOTE [facility] Comment:None given Report Status: [facility] Clinical Information: SEE NOTE [facility] Comment:None given LMP: SEE NOTE [facility] Comment:NONE GIVEN Prev. PAP: SEE NOTE [facility] Comment:NONE GIVEN Prev. BX: SEE NOTE [facility] Comment:NONE GIVEN Statement Of Adequacy: SEE NOTE [facility] Comment:Satisfactory for tiffany luation.Endocervical/transformation zone componentpresent. General Categorization: [facility] Interpretation/Result: SEE NOTE [facility] Comment:Cytology Results: Ne gative for intraepitheliallesion or malignancy. Cytology Comment SEE NOTE [facility] Comment:This Pap test has be en evaluated with computerassisted technology. Business Law Teacher: SEE NOTE [facility] Comment:YP, CT(ASCP)CT joshuae gino location: [address] [address] Review Business Law Teacher: [facility] Pathologist [facility] PAP Infection [facility] See Note SEE NOTE [facility] Comment:EXPLANATORY NOTE:The Pap is a screening test for cervical cancer. It isnot a diagnostic test and is subject to false negativeand false positive results. It is most reliable when asatisfactory sample, regularly obtained, is submittedwith relevant clinical findings and history, and whenthe Pap result is evaluated along with historic andcurrent clinical information. 10/25/2023 10/25/2023 Narrative [facility] - 11/01/2023 12:30 PM EDT SEE SCANNED RESULTS IN EMR us Lou Gonzalez MD LAB PATHOLOGY ORDERABLES Ashlyn orlando Result [facility] [address] [place] [address] [phone] * Hepatitis Panel, General (01/13/2023 9:50 AM EST) Hepatitis A IgM Nonreactive Nonreactive [facility] Comment:IgM antibodies to RUELAS V not detected; does not exclude earlyacute or recovered HAV infection. ~Hepatitis B Surface Antibody NONREACTIVE Nonreactive [facility] Comment:Nonreactive: < 8.00 mIU/mL Hepatitis B Core Antibody Nonreactive Nonreactive [facility] Hepatitis C Antibody Nonreactive Nonreactive [facility] Comment:Antibodies to HCV no t detected; does not exclude early acuteHCV infection. Hepatitis B Surface Ag Negative Negative [facility] 01/13/2023 9:50 AM EST 01/13/2023 9:52 AM EST us Generic External Data Provider LAB BLOOD ORDERAB LES Final Result [facility] [address] [place] [address] [phone] * (ABNORMAL) LIPID PANEL, STANDARD (08/04/2021 [...] ?? Esteban JACOBS et al. NIC. 2013;310(19): 5705-2536 ?? (http://education.OpSource.Viralica/faq/EQL219) Non-HDL Cholesterol 188(H) <130 mg/dL (calc) [facility] Comment: For patients with diabetes plus 1 major ASCVD risk ?? factor, treating to a non-HDL-C goal of <100 mg/dL ?? (LDL-C of <70 mg/dL) is considered a therapeutic ?? option. Triglycerides 189(H) <150 mg/dL [facility] 08/04/2021 9:06 AM EDT Giana Isbell MD LAB BLOOD ORDERABLES Final Result [facility] [address] [place] [address], * Colonoscopy (12/02/2015) Colonoscopy Normal Normal Narrative Lily Sanchez - 12/02/2015 Recommended 10 year follow up Historical Provider HEALTH MAINTENANCE Final Result from Last 3 Months or Most Recently Relevant to Health Maintenance Insurance D[facility]AL - [facility] Care Teams Slat Pickler Relationship Specialty Start Date End Date Giana Isbell MD [address] [place] [phone] (Work) PCP - General Internal Medicine 09/07/18
--- OUTSIDE RECORDS SUMMARY | 2024-05-17 18:04 | XMS_ITS | Encounter Summary ---
Author Organization [employer] Address [address] [facility] 7t [place] [address] Care Team Providers Care Inclusion Special Educator Name Role Phone Giana Isbell MD Primary Care Provider [phone] Reason for Visit * Reason Onset Date Comments Nurse Triage 03/01/2023 Encounter Details Date Type Department Care Team ([facility] [address] [facility] Contact Info) Description 03/01/2023 Telephone [facility] MEDICINE [address] [place] [address] Giana Isbell MD [address] [place] [address] Nurse Triage Social History Tobacco Use Types [...] 03/01/2023 12:46 PM EST Triage call with [employer] Professor Of Journalism [place] [id number] Pt reports having surgery and not having any pain medication. Pt had a partial left thyroidectomy 02/28/23 @ [facility] and oxycodone 5mg po was ordered . Prescription was sent to [facility] pharmacy. Pt was not aware of [...] Description 06/26/2024 1:30 PM EDT Office Visit [facility] CHC MED & PEDS [address] [place], [place] [phone] Giana Isbell MD [address] [place] [address] documented as of this encounter Visit Diagnoses Not on filedocumented in this encounter Additional Health Concerns Assessment Noted Time PHQ-9 Depression Total Score: 7 07/30/19 23 10:13 AM EDT documented as of this encounter Care Teams Inclusion Special Educator Relationship Specialty Start Date End Date Giana Isbell MD [address] [place] [address] PCP - General Internal Medicine 09/07/18 documented as of this encounter
--- OUTSIDE RECORDS SUMMARY | 2024-05-17 18:04 | XMS_ITS | Encounter Summary ---
Author Organization [employer] Address [address] [facility] 7t [place] [address] Care Team Providers Care Desk Clerk Name Role Phone Giana Isbell MD Primary Care Provider [phone] Reason for Visit * Reason Onset Date Comments Hospital Follow-up 07/20/2022 Encounter Details Date Type Department Care Team ([facility] Contact Info) Description 07/20/2022 Telephone [facility] CHC MED & PEDS [address] [place] [address] Giana Isbell MD [address] [place] [address] Hospital Follow-up Social History Tobacco Use Types [...] a HDF appt. Pt was admitted at [facility] on 07/17/22 and discharged on 07/20/22 due to abdominal pain. documented in this encounter Plan of Treatment Upcoming Encounters Date Type Department Care Team ([facility] Contact Info) Description 06/26/2024 1:30 PM EDT Office Visit [facility] MED & PEDS [address] [place] [address] Giana Isbell MD [address] [place] [address] documented as of this encounter Visit Diagnoses Not on filedocumented in this encounter Care Teams Desk Clerk Relationship Specialty Start Date End Date Giana Isbell MD [address] [place] [address] PCP - General Internal Medicine 09/07/18 documented as of this encounter
--- OUTSIDE RECORDS SUMMARY | 2024-05-17 18:04 | XMS_ITS | Encounter Summary ---
Author Organization [employer] Address [address] [facility] 7t [place] [address] Care Team Providers Care Livestock Farm Workers Name Role Phone Giana Isbell MD Primary Care Provider [phone] Reason for Visit * Reason Onset Date Comments Nurse Triage 08/02/2023 Encounter Details Date Type Department Care Team ([facility] Contact Info) Description 08/02/2023 Telephone [facility] CHC MED & PEDS [address] [place] [address] Giana Isbell MD [address] [place] [address] Nurse Triage Social History Tobacco Use Types [...] 08/02/2023 10:38 AM EDT Triage call with [employer] Me Third Helper [place] [id number] Pt reports a small lump in the corner of lower left eye lid. Pt reports it is red, itchy, painful. This doesn't effect vision and Pt has never had this before. Pt has had this for more than a week and it is increasing in size. No available apts ion [facility] . Pt is advised to come to [facility] to be seen by provider and [...] Description 06/26/2024 1:30 PM EDT Office Visit [facility] CHC MED & PEDS [address] [place] [address] Giana Isbell MD [address] [place] [address] documented as of this encounter Visit Diagnoses Not on filedocumented in this encounter Additional Health Concerns Assessment Noted Time PHQ-9 Depression Total Score: 7 07/30/19 23 10:13 AM EDT documented as of this encounter Care Teams Livestock Farm Workers Relationship Specialty Start Date End Date Giana Isbell MD [address] [place] [address] PCP - General Internal Medicine 09/07/18 documented as of this encounter
--- OUTSIDE RECORDS SUMMARY | 2024-05-17 18:04 | XMS_ITS | Encounter Summary ---
Author Organization [employer] Address [address] [place] [address] 7t [place] [address] Care Team Providers Care Outside Cutter Hand Name Role Phone Giana Isbell MD Primary Care Provider [phone] Encounter Details Date Type Department Care Team (Latest Contact Info) Description 02/16/2019 Abstract [facility] CONVERSIONS Dental, Provider, DDS [...] [facility] MED [facility] PEDS [address] [place] [address] Giana Isbell MD [address] [place] [address] documented as of this encounter Visit Diagnoses Not on filedocumented in this encounter Care Teams Outside Cutter Hand Relationship Specialty Start Date End Date Giana Isbell MD [address] [place] [address] PCP - General Internal Medicine 09/07/18 documented as of this encounter
--- OUTSIDE RECORDS SUMMARY | 2024-05-17 18:04 | XMS_ITS | Encounter Summary ---
Author Organization [employer] Address [address] [place] [address] 7t [place] [address] Care Team Providers Care Lining Machine Tender Name Role Phone Giana Isbell MD Primary Care Provider [phone] Encounter Details Date Type Department Care Team (Latest Contact Info) Description 02/15/2018 Abstract [facility] CONVERSIONS Dental, Provider, DDS Social History [facility] [address] [place] [address] Giana Isbell MD [address] [place] [address] documented as of this encounter Visit Diagnoses Not on filedocumented in this encounter Care Teams Lining Machine Tender Relationship Specialty Start Date End Date Giana Isbell MD [address] [place] [address] PCP - General Internal Medicine 09/07/18 documented as of this encounter
--- OUTSIDE RECORDS SUMMARY | 2024-05-17 18:04 | XMS_ITS | Encounter Summary ---
Author Organization [employer] Address [address] [facility] [address] [place] [address] Care Team Providers Care Tail Ripper Name Role Phone Giana Isbell MD Primary Care Provider Reason for Referral * Consultation (Routine) - Closed Specialty Diagnoses / Procedures Referred By Contac t Referred To Contact Cardiology Diagnoses SOB (shortness of breath) Giana Isbell MD [address] [place] [address] Phone: tel: fax: Kavon Berumen MD [address] [facility] [address] [place] [address] Phone: tel: fax: Referral ID Status Reason Start Date Expiration Date V isits Requested Visits Authorized [id number] Closed Specialty Services Required 12/19/2023 12/18/2024 1 1 Encounter Details Date Type Department Care Team (Late st Contact Info) Description 12/19/2023 Orders Only [facility] CHC MED & PEDS [address] [place] [address] Giana Isbell MD [address] [place], [place] [phone] SOB (shortness of breath) (Primary Dx) Social [...] Description 06/26/2024 1:30 PM EDT Office Visit [facility] CHC MED & PEDS [address] [place] [address] Giana Isbell MD [address] [place] [address] Scheduled Referrals Name Type Priority Associated Diagnoses [...] EST Narrative 01/18/2024 9:40 AM EST ? [facility] ? [address] ?[place] [address] ? Ultrasound Report ? Signed with Addenda ? Patient: Tamia SánchezTory ?MR#: [id number] ?? [id number] ? : 1965 ?Acct:[id number] ? Age/Sex: 58 / F ?ADM Date: 01/18/24 ? Loc: HO.MAMMO ? Attending Dr: Pardeep Marcos MD ? Ordering Physician: Pardeep Marcos MD ?? Date of Service: 01/18/24 ?? Procedure(s): US breast ndl core biopsy RT ?? Accession Number(s): [id number] ? cc: Giana Isbell MD; Pardeep Marcos [...] made available. ? Electronically signed by: ??Carissa aRza DO ??01/18/2024 09:37 AM EST ? Dictated By: ?Carissa Raza DO ? Signed By: ?<Electronically signed by Carissa Raza, DO in OV> ? 01/18/24 0937 ? DD/ 0800 ? TD/TT: 01/18/24 0835 ? Mica Spreader: ? Procedure Note Barbter, Image - 01/25/2024 Isa[facility] [address] [place] [address] Dr. [place], [place] [address] Ultrasound Report Signed with Fani Patient: Joshua BushZina#: [id number] : 1965Acct:[id number] Age/Sex: 58 / FADM Date: 01/18/24 Loc: ADELITA Attending Dr: Pardeep Marcos MD Ordering Physician: Pardeep Marcos MD Date of Service: 01/18/24 Procedure(s): US breast ndl core biopsy RT Accession Number(s): [id number] cc: Giana Isbell MD; Pardeep Marcos MD [...] OV> 01/18/2437 DD/ 0800 TD/TT: 01/18/24 0835 Mica Spreader: [facility] External Provider IMG US PROCEDURES Edited Result - Final * BI Mammogram Diagnostic Tomosynthesis Right (01/18/2024 8:00 AM EST) Anatomical Region Laterality Modality Breast Right Mammography 01/18/2024 8:00 AM EST Narrative 01/18/2024 9:40 AM EST ? [facility] ? [address] ?[place] [address] ? Mammography Report ? Signed with Addenda ? Patient: Tamia Sánchez,Tory ?MR#: [id number] ?? [id number] ? : 1965 ?Acct:[id number] ? Age/Sex: 58 / F ?ADM Date: 12/11/24 ? Loc: HO.MAMMO ? Attending Dr: Pardeep Marcos MD ? Ordering Physician: Pardeep Marcos MD ?Results: ? Date of Service: 01/18/24 ?Follow Up: ? Procedure(s): MM tomosynthesis diagnostic RT ?? Accession Number(s): [id number] ? cc: Giana Isbell MD; Pardeep Marcos [...] signed by Carissa Raza, in OV> ? 01/18/24 0937 ? DD/ 0800 ? TD/TT: 01/18/24 0835 ? Mica Spreader: ? Procedure Note Donmichelle, Image - 01/25/2024 Isaías [facility] [address] [place] [address] Mammography Report Signed with Fani Patient: Pat Bush#: [id number] : 1965Acct:[id number] Age/Sex: 58 / FADM Date: 01/18/24 Loc: ADELITA Attending Dr: Pardeep Marcos MD Ordering Physician: Pardeep Marcosesults: Date of Service: 01/18/24Follow Up: Procedure(s): MM tomosynthesis diagnostic RT Accession Number(s): [id number] cc: Giana Isbell MD; Pardeep Marcos MD [...] OV> 01/18/2437 DD/ 0800 TD/TT: 01/18/24 0835 Mica Spreader: [facility] External Provider IMG BI PROCEDURES Edited Result - Final documented in this encounter Visit Diagnoses Diagnosis SOB (shortness of breath)- Primary Shortness of breath documented in this encounter Additional Health Concerns Assessment Noted Time PHQ-9 Depression Total Score: 7 07/30/19 23 10:13 AM EDT documented as of this encounter Care Teams Tail Ripper Relationship Specialty Start Date End Date Giana Isbell MD [address] [place] [address] PCP - General Internal Medicine 09/07/18 documented as of this encounter
--- OUTSIDE RECORDS SUMMARY | 2024-05-17 18:04 | XMS_ITS | Encounter Summary ---
Author Organization [employer] Address [address] [facility] [address] 7[address] [place] [address] Care Team Providers Care Tso Name Role Phone Giana Isbell MD Primary Care Provider [phone] Encounter Details Date Type Department Care Team ([facility] st Contact Info) Description 04/05/2023 Telephone [facility] MEDICINE [address] [place] [address] Giana Isbell MD [address] [place] [address] Social History Tobacco Use Types Packs/Day Years [...] [facility] MED [facility] PED[facility] [address] [place] [address] Giana Isbell MD [address] [place] [address] documented as of this encounter Visit Diagnoses Not on filedocumented in this encounter Additional Health Concerns Assessment Noted Time PHQ-9 Depression Total Score: 7 07/30/19 23 10:13 AM EDT documented as of this encounter Care Teams Tso Relationship Specialty Start Date End Date Giana Isbell MD [address] [place] [address] PCP - General Internal Medicine 09/07/18 documented as of this encounter
--- NOTE | 2024-05-17 18:57 | ED_ITS ---
HPI - Chest Pain General Chief Complaint: Chest Pain Stated Complaint: chest pressure Time Seen by Provider: 05/17/24 17:30 History of Present Illness HPI narrative: 58 years old with a history of breast cancer currently undergoing chemotherapy presents today with having chest pain. The chest pain is over the left chest it is worse with deep breath. Patient status post chemotherapy on May 11. Feels generalized malaise also having some diarrhea. Patient from home. There is no new leg swelling. There is no travel history. Patient denies any history of diabetes, hypertension, high cholesterol, smoking, mi. never had a stress test done in the past. The chest pain is described as a tightness that is worse with deep breath. No fever no chills no coughing Related Data Home Medications ?Medication ?Instructions ?Recorded ?Confirmed nortriptyline 50 mg capsule 100 mg PO BEDTIME 12/20/19 04/09/24 quetiapine 100 mg tablet 100 mg PO BEDTIME PRN Sleep 12/20/19 04/09/24 docusate sodium 100 mg capsule 100 mg PO DAILY PRN Constipation 07/17/22 04/09/24 capsaicin 0.025 % topical cream 1 appl topical BEDTIME 05/12/23 04/09/24 cholecalciferol (vitamin D3) 50 50 mcg PO DAILY 05/12/23 04/09/24 mcg (2,000 unit) capsule (Vitamin D3) Magic Mouthwash 10 ml PO BID PRN Mouth Pain 03/13/24 04/09/24 Diphen/Nystat/Antacid 1:1:1 240 mL suspension diclofenac sodium 1 % topical gel 4 g topical DAILY PRN Pain 03/13/24 04/09/24 nystatin-triamcinolone 100,000 1 appl topical DAILY 03/13/24 04/09/24 unit/g-0.1 % topical cream albuterol sulfate 2.5 mg/3 mL mg inhalation Q8H PRN 05/09/24 (0.083 %) solution for nebulization fluticasone propionate 50 spray intranasal 05/09/24 mcg/actuation nasal spray,suspension hydrocortisone 0.5 % topical cream appl topical BID 05/09/24 sertraline 100 mg tablet mg PO 05/09/24 sumatriptan succinate 50 mg tablet mg PO 05/09/24 venlafaxine 37.5 mg tablet 37.5 mg PO BID 05/09/24 Previous Rx's ?Medication ?Instructions ?Recorded famotidine 20 mg tablet 20 mg PO DAILY #30 tabs 09/27/22 pantoprazole 20 mg tablet,delayed 20 mg PO QAM PRN for heartburn #30 12/26/23 release tabs erythromycin 5 mg/gram (0.5 %) eye 0.5 inch ophthalmic (eye) TID #60 03/13/24 ointment grams albuterol 90 mcg-budesonide 80 2 inh inhalation TID PRN cough/sob 03/20/24 mcg/actuation HFA aerosol inhaler #10 grams dexamethasone 2 mg tablet 2 mg PO BID #30 tabs 04/03/24 ondansetron 8 mg disintegrating 8 mg PO Q8H PRN Nausea And 04/16/24 tablet Vomiting #30 tabs levothyroxine 137 mcg tablet 137 mcg PO DAILY #30 tabs 05/11/24 Allergies Allergy/AdvReac Type Severity Reaction Status Date / Time acetaminophen [Vicodin] Allergy Unknown unk Verified 05/17/24 15:52 Penicillins AdvReac Mild HYPERTENSIO Verified 05/17/24 15:52 N hydrocodone [From VICODIN] AdvReac Unknown HIGH BP Verified 05/17/24 15:52 Review of Systems 2 Review of Systems: no fever no chest chest pain Yes all other systems are reviewed and are negative [facility] Past Medical History Attestation statement: The following information was validated with the patient. Medical History Anemia GERD (gastroesophageal reflux disease) Fatty liver Invasive ductal carcinoma of right breast Type 2 diabetes mellitus Vitamin D deficiency Multinodular thyroid Hypothyroidism Surgical History History of lobectomy of thyroid Hx of colonoscopy History of esophagogastroduodenoscopy (EGD) History of carpal tunnel surgery of left wrist Tubal ligation status Hx of foot surgery Hx of epicondylectomy Hx of cholecystectomy Hx of thyroidectomy Hx of appendectomy Family History Family History Father No problems noted. Mother Colon cancer Breast cancer Hypertension Sister Colon cancer Other Stomach cancer Social History Social History Household Members: Family Household Members Other:: 2 grand kids Housing: Homeless Do you presently have visiting nurse or other home services: No Alcohol intake: never Comment: helping patient to bathroom and ensuring her safety Patient Tobacco Use Status: Never used Tobacco Smoked in Last 30 Days: No Use of substances other than those prescribed or required for medical reasons: No Advance Directives: Yes Advance Directives on File: Yes Advance Directives Date on File: 03/19/24 Do you have a plan to hurt others: No Plan Patient : No service: No Current occupational status: unemployed 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 Oriented X3. No acute distress. Eyes: Pupils equal, round and reactive to light. ENT: Pharynx normal. Neck: Normal inspection. Neck supple. No lymph nodes noted. No crepitus CVS: Normal heart rate and rhythm. Pulses normal. Normal S1 and S2 Respiratory: No respiratory distress. Breath sounds normal. No Wheezing. No rales Abdomen: Soft and nontender. No rigidity. No distention. good BS x4 Skin: Skin warm and dry. Normal skin color. Normal skin turgor. Extremities: No lower extremity edema. Neurovascular intact to all extremities. No Lacerations. No Rash Neuro: Oriented X 3. No motor deficit. No sensory deficit. Moving all extermities. No slurred speech Medications Administered Discontinued Medications Generic Name Dose Route Start Last Admin Trade Name Freq PRN Reason Stop Dose Admin Iohexol 100 ml 05/17/24 19:05 05/17/24 19:06 Iohexol 350 Mg/Ml 100 Ml Infus..Btl IV 05/17/24 19:06 65 ml ONCE ONE Administration Medical Decision Making Medical Decision Making [facility] Narrative: My interpretation of her EKG showed a sinus rhythm heart rate is 100 OH QRS QTC normal no acute ST segment elevation there is diffuse T-wave flattening noted. Patient's chest pain atypical for ACS. First set of cardiac enzymes are negative. History not consistent. She is 58 years old have no significant cardiac risk factor. Patient does have a history of possible PE. Patient has history of breast cancer now has chest pain that is worse with deep breath. A CTA was ordered. patient's troponin was negative. History not consistent with ACS. My interpretation of patient's EKG showed a sinus rhythm heart rate was 100 OH QRS QTC normal no acute ST segment elevation there is diffuse T-wave flattening noted. Differential Diagnosis Differential Diagnoses: The differential diagnosis associated with the presentation includes Pulmonary emboli, ACS, congestive heart failure, pleural effusion, pneumonia Admission/Observation Consideration of admission/observation: Escalation of care including admission/observation considered Lab Data MDM Lab Attestation statement: I reviewed the patient's lab results. 05/17/24 16:43 05/17/24 16:43 Labs: Lab Results 05/17/24 05/17/24 Range/Units 16:43 16:44 WBC 4.1 L (4.8-10.8) X10*3/uL RBC 3.36 L (4.20-5.50) X10*6/uL Hgb 11.4 L (12.0-16.0) g/dl Hct 32.8 L (37.0-47.0) % MCV 97.6 (80.0-98.0) fL MCH 33.9 H (27.0-33.0) pg MCHC 34.8 (31.0-35.0) g/dl RDW 18.7 H (11.0-16.0) % Plt Count 85 L (160-400) X10*3/uL MPV 10.3 (9.4-12.3) fL Immature Gran % (Auto) Cancelled Neut % (Auto) Cancelled Lymph % (Auto) Cancelled Waldo % (Auto) Cancelled Eos % (Auto) Cancelled Baso % (Auto) Cancelled Lymph # (Auto) Cancelled Waldo # (Auto) Cancelled Eos # (Auto) Cancelled Baso # (Auto) Cancelled Abs Immat Gran (auto) Cancelled Absolute Neuts (auto) Cancelled Absolute Nucleated RBC 0.000 (0.0-0.012) X10*3/uL Nucleated RBC % (auto) 0.0 (0.0-0.2) /100WBC Neutrophils % (Manual) 59 (45-73) % Band Neutrophils % 6 H (3-5) % Lymphocytes % (Manual) 27 (20-40) % Monocytes % (Manual) 8 (2-11) % Abs Neuts (Manual) 2.7 (2.0-8.3) X10*3/uL Lymphocytes # (Manual) 1.1 L (1.2-4.9) X10*3/uL Monocytes # (Manual) 0.3 (0.1-1.2) X10*3/uL Platelet Estimate DECREASED (NORMAL) Plt Morphology Comment NORMAL RBC Morphology NOTED Tear Drop Cells 1+ (0-2) /OIF Hold Blue Top SEE NOTE Sodium 143 (135-145) mmol/L Potassium 4.1 (3.3-5.1) mmol/L Chloride 110 H (96-108) mmol/L Carbon Dioxide 24 (22-29) mmol/L Anion Gap 13 (12-20) BUN 13 (9-16) mg/dL Creatinine 0.82 (0.5-1.4) mg/dL Estim Creat Clear Calc 53.6 Estimated GFR > 60 Random Glucose 111 (60-115) mg/dL Calcium 9.1 (8.4-10.2) mg/dL Magnesium 1.6 (1.6-2.6) mg/dL Total Bilirubin 0.4 (0.0-1.0) mg/dL AST 40 H (5-31) U/L ALT 76 H (0-31) U/L Alkaline Phosphatase 127 H (39-117) U/L Troponin I High Sens < 2.7 D (<3.5-17.0) ng/L B-Natriuretic Peptide < 10 (<100) pg/mL Total Protein 6.0 L (6.5-8.0) g/dL Albumin 3.8 (3.5-5.0) g/dL Influenza Type A (PCR) NEGATIVE (Negative) Influenza Type B (PCR) NEGATIVE (Negative) RSV RNA Qual (PCR) NEGATIVE (Negative) SARS-CoV-2 RNA (RT-PCR) NEGATIVE (Negative) Independent Interpretation I performed an independent interpretation of an: CT Scan ( CTA of the lung grossly showed no effusion no pneumonia no large clots) Radiology Impression Discussion of test interpretation with radiology: I have reviewed the radiologist's reading. External Record Review External record reviewed: Inpatient record Social Determinants Patient?s care significantly limited by Social Determinants of Health including: Problems related to primary support group and Other Social Determinant of Health Discharge Plan Discharge Clinical Impression: Dehydration, Chest pain Patient Disposition: Home, Self-Care Instructions: Dehydration (ED), Chest Pain (DC) Prescriptions: No Action pantoprazole 20 mg tablet,delayed release (DR/EC) 20 mg PO QAM PRN (Reason: for heartburn) Qty: 30 6RF ondansetron 8 mg Tablet,Disintegrating 8 mg PO Q8H PRN (Reason: Nausea And Vomiting) Qty: 30 3RF levothyroxine 137 mcg tablet 137 mcg PO DAILY Qty: 30 6RF docusate sodium 100 mg Capsule 100 mg PO DAILY PRN (Reason: Constipation) erythromycin 5 mg/gram (0.5 %) Ointment 0.5 inch OPHTHALMIC (EYE) TID Qty: 60 0RF albuterol-budesonide 90-80 mcg/actuation Hfa Aerosol Inhaler 2 inh INHALATION TID PRN (Reason: cough/sob) Qty: 10 0RF dexamethasone 2 mg Tablet 2 mg PO BID Qty: 30 2RF Rx Instructions: Start night before chemotherapy and take for 2 days after chemotherapy, last chemotherapy ([id number]) was on 03/08/24 nystatin-triamcinolone 100,000-0.1 unit/g-% cream 1 appl TOPICAL DAILY diclofenac sodium 1 % gel 4 g topical DAILY PRN (Reason: Pain) Rx Instructions: apply to left hip area, up to 4 times a day as needed Magic Mouthwash Diphen/Nystat/Antacid 1:1:1 240 mL suspension 10 ml PO BID PRN (Reason: Mouth Pain) Rx Instructions: nystatin 100,000 unit/mL oral suspension 80 mL; diphenhydramine 12.5 mg/5 mL oral liquid 80 mL; aluminum-mag hydroxide-simethicone 400 mg-400 mg-40 mg/5 mL oral susp 80 mL; Per 240 mL quetiapine 100 mg tablet 100 mg PO BEDTIME PRN (Reason: Sleep) nortriptyline 50 mg capsule 100 mg PO BEDTIME famotidine 20 mg tablet 20 mg PO DAILY Qty: 30 3RF cholecalciferol (vitamin D3) [Vitamin D3] 50 mcg (2,000 unit) capsule 50 mcg PO DAILY capsaicin 0.025 % cream 1 appl topical BEDTIME fluticasone propionate 50 mcg/actuation spray,suspension intranasal venlafaxine 37.5 mg tablet 37.5 mg PO BID albuterol sulfate 2.5 mg /3 mL (0.083 %) solution for nebulization inhalation Q8H PRN hydrocortisone 0.5 % cream topical BID sumatriptan succinate 50 mg tablet PO sertraline 100 mg tablet PO Referrals: Giana Isbell MD [Primary Care Provider] - ( please hydrate. Close follow-up with your doctor on an outpatient basis.) Print Language: Slovenian
[2024-05-17] MEDS: iohexoL 350 MG/ML 100 ML INFUS..BTL IV (19:06)
[2024-05-17 19:16] VITALS: BP 105/52; PULSE 87; RESP 16; TEMP 36.7; O2SAT 100
[2024-05-17 21:14] VITALS: BP 105/52; PULSE 87; RESP 16; TEMP 36.7; O2SAT 100
== END 2024-05-17 21:15 | disposition home or self-care (01) ==
PROVIDERS: Emergency Provider Emergency Medicine Emergency Medical Services; PCP Internal Medicine
DX: R07.89 Other chest pain (principal); E86.0 Dehydration; R06.02 Shortness of breath; Z79.899 Other long term (current) drug therapy; Z03.818 Encounter for observation for suspected exposure to other biological agents ruled out
CPT/HCPCS: 0241U; 71045; 71275; 80053; 83735; 83880; 84484; 85007; 85027; 93005; 99284; 99285; Q9967

== ENCOUNTER → 2024-05-17 15:51 | Outpatient (BNV) | payer OTHER, SELFPAY | PROVIDERS: Emergency Provider Emergency Medicine Emergency Medical Services; PCP Internal Medicine; Visit Provider Internal Medicine Cardiovascular Disease | DX: R07.9 Chest pain, unspecified (principal); R94.31 Abnormal electrocardiogram [ECG] [EKG] | CPT/HCPCS: 93010 ==

== ENCOUNTER → 2024-05-17 17:10 | Outpatient (BNV) | payer OTHER, SELFPAY | PROVIDERS: Emergency Provider Emergency Medicine Emergency Medical Services; PCP Internal Medicine; Visit Provider Radiology Diagnostic Radiology | DX: R07.9 Chest pain, unspecified (principal); R06.02 Shortness of breath | CPT/HCPCS: 71045; 71275 ==

== ENCOUNTER → 2024-06-22 14:44 | Outpatient (REF) | payer OTHER, SELFPAY ==
--- OUTSIDE RECORDS SUMMARY | 2024-06-22 14:46 | XMS_ITS | Encounter Summary ---
Author Organization [employer] Address [address] 7[address] [place] [address] Care Team Providers Care Head Field Hockey Coach Name Role Phone Giana Isbell MD Primary Care Provider [phone] Encounter Details Date Type Department Care Team (Latest Contact Info) Description 02/16/2019 Abstract [facility] CONVERSIONS Dental, Provider, DDS Social History Tobacco [...] Description 06/26/2024 1:30 PM EDT Office Visit [facility] MED & PEDS [address] [place] [address] Giana Isbell MD [address] [place] [address] documented as of this encounter Visit Diagnoses Not on filedocumented in this encounter Care Teams Head Field Hockey Coach Relationship Specialty Start Date End Date Giana Isbell MD [address] [place] [address] PCP - General Internal Medicine 09/07/18 documented as of this encounter
--- OUTSIDE RECORDS SUMMARY | 2024-06-22 14:46 | XMS_ITS | Encounter Summary ---
Author Organization [employer] Address [address] [facility] [address] [place] [address] Care Team Providers Care Blower Feeder Dyed Raw Stock Name Role Phone Giana Isbell MD Primary Care Provider [phone] Encounter Details Date Type Department Care Team ([facility] st Contact Info) Description 05/06/2023 Orders Only [facility] CH[facility] MED & PEDS [address] [place] [address] Giana Isbell MD [address] [place] [address] Acquired hypothyroidism (Primary Dx) Social History Tobacco [...] 1:30 PM EDT Office Visit [facility] MED & PEDS [address] [place] [address] Giana Isbell MD [address] [place] [address] documented as of this encounter Procedures Procedure Name Priority Date/Time Associated Diagnosis Comments TSH W/REFLEX TO FT4 Routine 02/06/2024 10:45 AM EST Acquired hypothyroidism documented in this encounter Results * (ABNORMAL) TSH W/Reflex to FT4 (02/06/2024 10:45 AM EST) TSH reflex Free T4 10.06(H) 0.32 - 4.0 uIU/mL [facility] Blood Venous blood specimen / Unknown 02/06/2024 10:45 AM EST 02/06/2024 10:45 AM EST Giana Isbell MD LAB BLOOD ORDERABLES Final Result [facility] [address] [place] [address] [phone] documented in this encounter Visit Diagnoses Diagnosis Acquired hypothyroidism- Primary Unspecified hypothyroidism documented in this encounter Additional Health Concerns Assessment Noted Time PHQ-9 Depression Total Score: 7 07/30/19 23 10:13 AM EDT documented as of this encounter Care Teams Blower Feeder Dyed Raw Stock Relationship Specialty Start Date End Date Giana Isbell MD [address] [place] [address] PCP - General Internal Medicine 09/07/18 documented as of this encounter
--- OUTSIDE RECORDS SUMMARY | 2024-06-22 14:46 | XMS_ITS | Encounter Summary ---
Author Organization [employer] Address [address] [facility] [address] [place] [address] Care Team Providers Care Clinic Nurse Name Role Phone Giana Isbell MD Primary Care Provider [phone] Encounter Details Date Type Department Care Team ([facility] st Contact Info) Description 02/06/2024 Orders Only [facility] CHC MED & PEDS [address] [place] [address] Giana Isbell MD [address] [place] [address] Acquired hypothyroidism (Primary Dx) Social History Tobacco [...] Upcoming Encounters Date Type Department Care Team ([facility] st Contact Info) Description 06/26/2024 1:30 PM EDT Office Visit [facility] CHC MED & PEDS [address] [place] [address] Giana Isbell MD [address] [place] [address] Scheduled Orders Name Type Priority Associated Diagnoses [...] EST Narrative 02/10/2024 3:39 PM EST ? [facility] ?[address] ?[place] [address] ? Magnetic Resonance Report ? Signed with Addenda ? Patient: Tory Bush ?MR#: [id number] ? : 1965 ?Acct:[id number] ? Age/Sex: 58 / F ?ADM Date: 12/30/24 ? Loc: HO.MRI ? Attending Dr: Pardeep Marcos MD ? Ordering Physician: Pardeep Marcos MD ?? Date of Service: 02/06/24 ?? Procedure(s): MR breast BI wo/w con ?? Accession Number(s): [id number] ? cc: Giana Isbell MD; Pardeep Marcos [...] DO in OV> ? 02/10/246 ? DD/ ? TD/TT: 02/06/24 1016 ? Care Aid: ? Procedure Note Donmichelle, Eliud - 02/13/[address] [address] Magnetic Resonance Report Signed with Fani Patient: Pat Bush#: [id number] : 1965Acct:[id number] Age/Sex: 58 / FADM Date: 02/06/24 Loc: HO.MRI Attending Dr: Pardeep Marcos MD Ordering Physician: Pardeep Marcos MD Date of Service: 02/06/24 Procedure(s): MR breast BI wo/w con Accession Number(s): [id number] cc: Giana Isbell MD; Pardeep Marcos MD [...] 02/10/24 1536 DD/ 0933 TD/TT: 02/06/24 1016 Care Aid: [facility] External Provider IMG MRI PROCEDURES Edited Result - Final documented in this encounter Visit Diagnoses Diagnosis Acquired hypothyroidism- Primary Unspecified hypothyroidism documented in this encounter Additional Health Concerns Assessment Noted Time PHQ-9 Depression Total Score: 7 07/30/19 23 10:13 AM EDT documented as of this encounter Care Teams Clinic Nurse Relationship Specialty Start Date End Date Giana Isbell MD [address] [place] [address] PCP - General Internal Medicine 09/07/18 documented as of this encounter
--- OUTSIDE RECORDS SUMMARY | 2024-06-22 14:46 | XMS_ITS | Encounter Summary ---
Author Organization [employer] Address [address] [facility] 7[address] [place] [address] Care Team Providers Care Instrumentation Supervisor Name Role Phone Giana Isbell MD Primary Care Provider [phone] Reason for Visit * Reason Onset Date Comments Hospital Follow-up 07/20/2022 Encounter Details Date Type Department Care Team ([facility] Contact Info) Description 07/20/2022 Telephone [facility] CHC MED & PEDS [address] [place] [address] Giana Isbell MD [address] [place] [address] Hospital Follow-up Social History Tobacco Use Types [...] a HDF appt. Pt was admitted at [facility] on 07/17/22 and discharged on 07/20/22 due to abdominal pain. documented in this encounter Plan of Treatment Upcoming Encounters Date Type Department Care Team ([facility] Contact Info) Description 06/26/2024 1:30 PM EDT Office Visit [facility] CHC MED & PEDS [address] [place] [address] Giana Isbell MD [address] [place] [address] documented as of this encounter Visit Diagnoses Not on filedocumented in this encounter Care Teams Instrumentation Supervisor Relationship Specialty Start Date End Date Giana Isbell MD [address] [place] [address] PCP - General Internal Medicine 09/07/18 documented as of this encounter
--- OUTSIDE RECORDS SUMMARY | 2024-06-22 14:46 | XMS_ITS | Encounter Summary ---
Author Organization [employer] Address [address] [facility] [address] [place] [address] Care Team Providers Care Dielectric Machine Operator Name Role Phone Giana Isbell MD Primary Care Provider [phone] Encounter Details Date Type Department Care Team (Latest Contact Info) Description 11/13/2020 Abstract [facility] CONVERSIONS Dental, Provider, DDS [facility] [address] [place] [address] Giana Isbell MD [address] [place] [address] documented as of this encounter Visit Diagnoses Not on filedocumented in this encounter Care Teams Dielectric Machine Operator Relationship Specialty Start Date End Date Giana Isbell MD [address] [place] [address] PCP - General Internal Medicine 09/07/18 documented as of this encounter
--- OUTSIDE RECORDS SUMMARY | 2024-06-22 14:46 | XMS_ITS | Encounter Summary ---
Author Organization [employer] Address [address] [facility] [address] [place] [address] Care Team Providers Care Security Threat Analyst Name Role Phone Giana Isbell MD Primary Care Provider [phone] Encounter Details Date Type Department Care Team ([facility] st Contact Info) Description 04/05/2023 Telephone [facility] MEDICINE [address] [place] [address] Giana Isbell MD [address] [place] [address] Social History Tobacco Use Types Packs/Day Years [...] Description 06/26/2024 1:30 PM EDT Office Visit [facility] CHC MED & PEDS [address] [place] [address] Giana Isbell MD [address] [place] [address] documented as of this encounter Visit Diagnoses Not on filedocumented in this encounter Additional Health Concerns Assessment Noted Time PHQ-9 Depression Total Score: 7 07/30/19 23 10:13 AM EDT documented as of this encounter Care Teams Security Threat Analyst Relationship Specialty Start Date End Date Giana Isbell MD [address] [place] [address] PCP - General Internal Medicine 09/07/18 documented as of this encounter
--- OUTSIDE RECORDS SUMMARY | 2024-06-22 14:46 | XMS_ITS | Data Portability ---
Author Organization [employer] [place] [place] [employer] Address [address] [place] [id number] Care Team Providers Care Competitive Intelligence Analyst Name Role Phone [facility] Referring Provider [facility] Referring Provider [phone] Assessment Encounter Date Assessment Date Assessment LastModified by Organization Details LastModified Time 10/02/2021 10/02/2021 I have reviewed and agree with the Assessment and Plan as documented by the Python Developer. I provided real -time medical direction via phone for this encounter, and was available for additional phone based assistance as needed. Patient given the opportunity to ask questions. [email or web address] Not available 10/02/2021 19:13:58 04/13/2023 04/13/2023 Ms. Tory Cantrell is a 57yoF who is seen today for further evaluation of right eye irritation. Ms. Cantrell reports three days of right eye itching and watering. She denies any fevers but reports that her left eye is starting to also itch and she has some minimal right ear discomfort. Otherwise has been feeling well. VSS. Python Developer site uploads picture of minimally injected and tearing right eye. Exam is c/w viral conjunctivitis . Recommended ongoing OTC therapies and cool compress/hand hygeine. Red flags to be reviewed by interior horticulturist. Not available 04/13/2023 10:45:55 Plan of Treatment [...] Not available Not available Not available 10/02/2021 [id number] SNOMED Not Available [employer] - production 03:43:36 890 hydrocodo ne Not available Not available Not available Not available 10/02/2021 5489 RxNorm Cynthia Maguire MD [address] [facility],[address], [place], [address] , [facility] [employer] 18:39:23 Medications Name Sig Start Date Stop [...] % 98 % 88 /min 18 /min 69486.8 8 g 97.6 [degF] 124 mm[Hg] 76 mm[Hg] Not Available [facility] [employer] 4 10:39:50 Date Recorded Body temperature Heart [...] mm[Hg] 120 mm[Hg] 70 mm[Hg] Not Available [employer] [employer] 2 17:37:54 Date Recorded Body weight Provider Name an d Address Organization Details Last Updated DateTime 10/02/2021 81446.01 g Shravan Mallory [address] [place] [address],[address], [place], [address], [facility] 10/02/2021 18:45:32 Social History None [...] Code Diagnosis Note 3564 Cynthia Maguire MD [facility] - [address] [address] 10/02/2021 16:58:56 10/21/2021 11:37:50 Pain in right heel 5989623616 753090 M79.671 possible plantar fasciitis- vs talar tendonitis [...] continue Naprosyn in am Delilah Hope MD [facility] - [address] [address] 04/13/2023 10:39:45 04/14/2023 09:54:22 Viral conjunctivitis 75288198 B30.9 Health Concerns Section Related Observation LastModified by Organization Detai ls LastModified Time None Recorded Concern Status LastModified by Organization Details LastModified Time None Recorded Advance Directives Directive None Recorded Payers Insurance Date Sequence Insurance Name Policy Number Policy Pastor Covered Member ID Pastor Member ID Guarantor Name 04/03/2023 1 [facility] [employer] - DOS PRIOR TO 2022 - DUAL ELIGIBLE (MEDICARE REPLACEMENT/ADV ANTAGE - HMO) Tory Cantrell [id number] Tory Cantrell 04/14/2023 1 [facility] [employer] - DOS ON OR AFTER 2022 - DUAL ELIGIBLE - HALF-WAY OPTIONS AND ONE CARE (MEDICARE REPLACEMENT/ADV ANTAGE - HMO) Tory Cantrell [id number] Tory Cantrell Notes Date Note Type Note [...] .................. .................. .................. .................. .................. .................. ............... Python Developer Note: Eval for right heel pain. pt stated she has had right heel pain for about 1 month, getting worse lately. Pt states she has appointment with ortho on Tuesday- pt has HX of tendon surgeries and chronic pain. pt states pain is bottom of heel, with discomfort generalized around ankle. no other new pain. pt denied fever/chills, denied sob/cp. [facility] [place], elevate and we gave 15mg toradol for temp relief of pain. pt to follow up with pcp .................. .................. .................. .................. .................. .................. .................. ............... Disposition: FulfilledSEGMD: As above- hx chronic pain- On Naprosyn 500 mg q AM- denies hx CKD- not on anticoagulants- denies numbness/ tingling- worse w/ palpation/ ambulation/ WB Cynthia Maguire MD [address] [place] [address],[address], [place], [address], [employer] - [employer] 10/03/2021 17:32:32 04/13/2023 text/html HPI: HX Depression,migrain es. Three day history of eye irritation redness with drainage. No fever.slight ear discomfort. .................. .................. .................. .................. .................. .................. .................. ............... [facility] Nurse Triage Notes (Yvette Guerra): Comments: HPI reviewed. No further information reviewed to process visit. .................. .................. .................. .................. .................. .................. .................. ............... Python Developer Note From Devan Brown: Pt co irrigation [...] Pt education on signs indicating the ER. Python Developer Allergies: Acetaminophen, Penicillin .................. .................. .................. .................. .................. .................. .................. ............... Disposition: Fulfilled Delilah Hope MD [address] [facility],[address], [place], [address], [employer] 04/13/2023 16:03:59 OBGyn Episode No OBEpisode recorded.
--- OUTSIDE RECORDS SUMMARY | 2024-06-22 14:46 | XMS_ITS | Encounter Summary ---
Author Organization [employer] Address [address] [facility] [address] [address] Care Team Providers Care Counter Checker Name Role Phone Giana Isbell MD Primary Care Provider [phone] Reason for Visit * Reason Onset Date Comments Nurse Triage 03/01/2023 Encounter Details Date Type Department Care Team ([facility] st Contact Info) Description 03/01/2023 Telephone [facility] MEDICINE [address] [place] [address] Giana Isbell MD [address] [place] [address] Nurse Triage Social History Tobacco Use Types [...] 03/01/2023 12:46 PM EST Triage call with [employer] [id number] Pt reports having surgery and not having any pain medication. [place] [facility] [place] 5mg po was ordered . Prescription was sent to [facility] pharmacy. Pt was not aware of [...] Description 06/26/2024 1:30 PM EDT Office Visit [facility] MED & PEDS [address] [place], [place] [phone] Giana Isbell MD [address] [place] [address] documented as of this encounter Visit Diagnoses Not on filedocumented in this encounter Additional Health Concerns Assessment Noted Time PHQ-9 Depression Total Score: 7 07/30/19 23 10:13 AM EDT documented as of this encounter Care Teams Counter Checker Relationship Specialty Start Date End Date Giana Isbell MD [address] [place] [address] PCP - General Internal Medicine 09/07/18 documented as of this encounter
--- OUTSIDE RECORDS SUMMARY | 2024-06-22 14:46 | XMS_ITS | Encounter Summary ---
Author Organization [employer] Address [address] [facility] 7[address] [place] [address] Care Team Providers Care Third Grade Teacher Name Role Phone Giana Isbell MD Primary Care Provider [phone] Reason for Referral * Imaging (Urgent) - Closed Specialty Diagnoses / Procedures Referred By Contharman t Referred To Contact Radiology Diagnoses Elevated alkaline phosphatase level Procedures US Abdomen Complete Giana Isbell MD [address] [place] [address] Phone: tel: fax: [address] Phone: tel: fax: Referral ID Status Reason Start Date Expiration Date Visits Re quested Visits Authorized [id number] Closed 02/17/2023 02/17/2024 1 1 Encounter Details Date Type Department Care Team (Late st Contact Info) Description 02/17/2023 Orders Only [facility] CH[facility] MED & PEDS [address] [place], [place] [phone] Giana Isbell MD [address] [place], [place] [phone] Elevated alkaline phosphatase level (Primary Dx); Left upper quadrant abdominal pain Social History Tobacco Use Types Packs/Day Years Used Date Smoking Tobacco: Never Smokeless Tobacco: Never Depression Answer Date Recorded Patient Health Questionnaire-9 Score 7 07/29/2022 Housing Stability Answer Date Recorded What is your housing situation today? I have rob sing 11/22/[address] you li [...] Upcoming Encounters Date Type Department Care Team ([facility] st Contact Info) Description 06/26/2024 1:30 PM EDT Office Visit [facility] MED & PEDS [address] [place] [address] Giana Isbell MD [address] [place] [address] documented as of this encounter Procedures Procedure Name Priority Date/Time Associated Diagnosis Comments US ABDOMEN COMPLETE Urgent 03/21/2023 9 :29 AM EST Elevated alkaline phosphatase level documented in this encounter Results * US Abdomen Complete (03/21/2023 9:29 AM EST) Anatomical Region Laterality Modality Abdomen Ultrasound 03/21/2023 9:29 AM EST Narrative 03/22/2023 9:16 AM EST ? [facility] ?[address] ?[place] [address] ? Ultrasound Report ? Signed ? Patient: Tamia Sánchez,Tory ?MR#: [id number] ?? [id number] ? : 1965 ?Acct:[id number] ? Age/Sex: 57 / F ?ADM Date: 03/21/23 ? Loc: HO.US ? Attending Dr: Giana Isbell MD ? Ordering Physician: Giana Isbell MD ?? Date of Service: 03/21/23 ?? Procedure(s): US abdomen complete ?? Accession Number(s): [id number] ? cc: Giana Isbell MD ? EXAMINATION: [...] 03/22/239[address] ? DD/ 0929 ? TD/TT: ? Esthetic Dermatologist: ? Procedure Note Donhernanter, Image - 03/22/2023 [place] [address] Ultrasound Report Signed Patient: Pat Bush#: [id number] : 1965Acct:[id number] Age/Sex: 57 / FADM Date: 03/21/23 Loc: HO.US Attending Dr: Giana Isbell MD Ordering Physician: Giana Isbell MD Date of Service: 03/21/23 Procedure(s): US abdomen complete Accession Number(s): [id number] cc: Giana Isbell MD EXAMINATION: US ABDOMEN [...] in OV> 03/22/23 09 DD/ 8 TD/TT: Esthetic Dermatologist: us Giana Isbell MD IMG US PROCEDURES Final Res ult documented in this encounter Visit Diagnoses Diagnosis Elevated alkaline phosphatase level- Primary Left upper quadrant abdominal pain documented in this encounter Additional Health Concerns Assessment Noted Time PHQ-9 Depression Total Score: 7 07/30/19 23 10:13 AM EDT documented as of this encounter Care Teams Third Grade Teacher Relationship Specialty Start Date End Date Giana Isbell MD [address] [place] [address] PCP - General Internal Medicine 09/07/18 documented as of this encounter
--- OUTSIDE RECORDS SUMMARY | 2024-06-22 14:46 | XMS_ITS | Encounter Summary ---
Author Organization [employer] Address [address] [facility] [address] [place] [address] Care Team Providers Care Room Service Associate Name Role Phone Giana Isbell MD Primary Care Provider [phone] Encounter Details Date Type Department Care Team (Latest Contact Info) Description 02/15/2018 Abstract [facility] Dental, Provider, DDS Social History Tobacco [...] 1:30 PM EDT Office Visit [facility] MED & PEDS [address] [place] [address] Giana Isbell MD [address] [place] [address] documented as of this encounter Visit Diagnoses Not on filedocumented in this encounter Care Teams Room Service Associate Relationship Specialty Start Date End Date Giana Isbell MD [address] [place] [address] PCP - General Internal Medicine 09/07/18 documented as of this encounter
--- OUTSIDE RECORDS SUMMARY | 2024-06-22 14:46 | XMS_ITS | Encounter Summary ---
Author Organization [employer] Address [address] [facility] [address] [place] [address] Care Team Providers Care Painter Touch Up Name Role Phone Giana Isbell MD Primary Care Provider [phone] Encounter Details Date Type Department Care Team ([facility] Contact Info) Description 02/17/2024 Orders Only [facility] [address] [place] [address] Provider, MD Kathi Social History Tobacco Use [...] 1:30 PM EDT Office Visit [facility] MED & PEDS [address] [place] [address] Giana Isbell MD [address] [place] [address] documented as of this encounter Procedures Procedure [...] documented as of this encounter Care Teams Painter Touch Up Relationship Specialty Start Date End Date Giana Isbell MD [address] [place] [address] PCP - General Internal Medicine 09/07/18 documented as of this encounter
--- OUTSIDE RECORDS SUMMARY | 2024-06-22 14:46 | XMS_ITS | Encounter Summary ---
Author Organization [employer] Address [address] [facility] [address] [place] [address] Care Team Providers Care Geospatial Specialist Name Role Phone Giana Isbell MD Primary Care Provider [phone] Encounter Details Date Type Department Care Team ([facility] st Contact Info) Description 04/12/2024 Orders Only [facility] MEDICINE [address] [place] [address] Giana Isbell MD [address] [place] [address] Bronchopneumonia (Primary Dx) Social History Tobacco Use [...] Upcoming Encounters Date Type Department Care Team ([facility] st Contact Info) Description 06/26/2024 1:30 PM EDT Office Visit [facility] MED & PEDS [address] [place] [address] Giana Isbell MD [address] [place] [address] documented as of this encounter Procedures Procedure Name Priority Date/Time Associated Diagnosis Comments XR CHEST 2 VIEWS Routine 04/19/2024 8:35 AM EDT Bronchopneumonia documented in this encounter Results * XR Chest 2 Views (04/19/2024 8:35 AM EDT) Anatomical Region Laterality Modality Chest Radiographic Laura ging 04/19/2024 8:35 AM EDT Narrative 04/19/2024 9:48 AM EDT ? [facility] ?[address] ?[place] [address] ?XRay Report ? Signed ? Patient: Tamia Sánchez,Tory ?MR#: [id number] ?? [id number] ? : 1965 ?Acct:[id number] ? Age/Sex: 58 / F ?ADM Date: 03/13/25 ? Loc: HO.LAB ? Attending Dr: Giana Isbell MD ? Ordering Physician: Giana Isbell MD ?? Date of Service: 04/19/24 ?? Procedure(s): XR chest 2V ?? Accession Number(s): [id number] ? cc: Giana Isbell MD ? EXAMINATION: [...] DD/ 0835 ? TD/TT: 04/19/24 0845 ? Plumber'S Assistant: ? Procedure Note Barbter, Image - 04/19/2024 [place] [address] XRay Report Signed Patient: Pat Bush#: [id number] : 1965Acct:[id number] Age/Sex: 58 / FADM Date: 04/19/24 Loc: HO.LAB Attending Dr: Giana Isbell MD Ordering Physician: Giana Isbell MD Date of Service: 04/19/24 Procedure(s): XR chest 2V Accession Number(s): [id number] cc: Giana Isbell MD EXAMINATION: XR CHEST [...] MD in OV> 04/19/24 0945 DD/ TD/TT: 04/19/24844 Plumber'S Assistant: Giana Isbell MD IMG XR PROCEDURES Edited Re sult - Final documented in this encounter Visit Diagnoses Diagnosis Bronchopneumonia- Primary Bronchopneumonia, organism unspecified documented in this encounter Additional Health Concerns Assessment Noted Time PHQ-9 Depression Total Score: 24 025 9:26 AM EST documented as of this encounter Care Teams Geospatial Specialist Relationship Specialty Start Date End Date Giana Isbell MD [address] [place] [address] PCP - General Internal Medicine 09/07/18 documented as of this encounter
--- OUTSIDE RECORDS SUMMARY | 2024-06-22 14:46 | XMS_ITS | Clinical Summary ---
Author Organization [employer] Address [address] [facility] [address] [place] [address] Care Team Providers Care Business Excellence Manager Name Role Phone Giana Isbell MD Primary Care Provider [phone] Allergies Active Allergy Reactions Criticality Noted Date Comments Acetaminophen Unknown 07/17/2022 Hydrocodone Other,Hives 12/13/2011 Other reaction(s): Altered Heart Rate Outside Source Comment: Other reaction(s): Altered Heart Rate Hydrocodone-Acetaminophe n 10/25/2023 Penicillin G Rash Low 04/12/2022 Penicillins Rash,Unknown,Hives Low 02/19/2010 Medications * This document contains information received from the source organization and may not represent a complete record from that organization. docusate sodium (Colace) 100 MG capsuleIndications :Other [...] 24 Active D3 Super Strength 50 MCG (2000 [...] if needed for wheezing. 75 mL 03/28/19 026 Active capsaicin (Zostrix) 0.025 % creamIndications:C hronic pain of left knee APPLY TO THE AFFECTED AREA(S) 1 GRAM TWICE DAILY 60 g 3 04/18/19 25 Active hydrocortisone 0.5 % cream APPLY 1 GRAM TOPICALLY TO AFFECTED AREA(S) TWICE DAILY DIRECTED 56.8 g 1 04/18/19 25 Active venlafaxine (Effexor) 37.5 MG tabletIndications: Depressive disorder TAKE 1 TABLET BY MOUTH TWICE DAILY 60 tablet 5 04/18/19 25 Active dextran 70-hypromellose (artificial tears) 0.1-0.3 % ophthalmic solutionIndication s:Dry eyes, bilateral Administer 1 drop into both eyes if needed in the morning, at noon, and at bedtime for dry eyes. 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 Date Type Department Care Team Description 05/17/2024 Orders Only GENERIC EXTERNAL DATA DEPARTMENT Provider, Generic External Data 04/17/2024 2:30 PM EDT Office Visit [facility] OPTOMETRY [address] [place] [address] Tarka, Dee, OD Dry eyes, bilateral (Primary Dx); Regular astigmatism, bilateral 04/17/2024 Travel 04/15/2024 Refill [facility] MED & PEDS [address] [place] [address] Giana Isbell MD Chronic pain of left knee; Depressive disorder 04/12/2024 Orders Only [facility] MEDICINE [address] [place] [address] Giana Isbell MD Bronchopneumonia (Primary Dx) 04/02/2024 Telephone [facility] MEDICINE [address] [place] [address] Giana Isbell MD Medication Question 03/28/2024 9:15 AM EST Office Visit [facility] PEDS [address] [place] [address] Giana Isbell MD Acute cough (Primary Dx); Acquired hypothyroidism; SOB (shortness of breath); Bronchopneumonia 03/28/2024 Travel from Last 3 Months Immunizations Immunization Administration Dates Next Due Hep B, adult [...] 06/26/2024 1:30 PM EDT Office Visit [facility] MED [facility] PEDS [address] [place] [address] Giana Isbell MD [address] [place] [address] Health Maintenance Due Date Last Done Comments [...] patient's age to complete this topic Meningococcal B Vaccine Aged Out No l onger eligible based on patient's age to complete [...] Procedure Name Priority Date/Time Associated Diagnosis Comments CTA CHEST PE PROTOCAL Routine 05/17/2024 7:45 PM EDT XR CHEST 1 VIEW Routine 05/17/2024 5:45 [...] LIMITED RIGHT Routine 04/09/2024 12:30 PM EST PANORAMIC RADIOGRAPHIC IMAGE Routine [...] Recently Relevant to Health Maintenance Results * CTA Chest PE Protocal (05/17/2024 7:45 PM EDT) Anatomical Region Laterality Modality Body, Chest Computed Tomogra phy 05/17/2024 7:45 PM EDT Narrative 05/17/2024 7:47 PM EDT ? [facility] ?[address] ?[place] [address] ? CT Scan Report ? Signed ? Patient: Tamia Sánchez,Tory ?MR#: [id number] ?? [id number] ? : 1965 ?Acct:[id number] ? Age/Sex: 58 / F ?ADM Date: 04/10/25 ? Loc: HO.ED ? Attending Dr: ? Ordering Physician: Adriana Robb MD ?? Date of Service: 05/17/24 ?? Procedure(s): CT angio chest PE protocol ?? Accession Number(s): [id number] ? cc: Giana Isbell MD; Adriana Robb MD ? Report Number: ?? [id number]: Total DLP = ??249.00 mGy-cm ? CLINICAL HISTORY: cp ? CT ANGIOGRAPHY CHEST WITH CONTRAST. 3D POSTPROCESSING. ? Comparison: CT/SR - CT ANGIO CHEST PE PROTOCOL - 03/13/24 16:24 EST ? Findings: ?? The heart size is normal. RV/LV ratio is normal. ?? No thoracic aortic aneurysm or dissection. ?? No pulmonary artery filling defects. ?? The thyroid gland is not well-visualized. ?? No lymphadenopathy. ? Bilateral lower lobe and lingular atelectatic changes. ?? No consolidation, pleural effusion or pneumothorax. ? Cholecystectomy. ?? The bones are intact. ? The distal tip of the left georgie catheter appears to be near the ?? atriocaval junction. ? IMPRESSION: ?? 1. No pulmonary emboli. ? This document has been electronically signed by: Vanna Pelayo, on ?? 05/17/2024 19:45:54 ? Dictated By: ?Vanna Pelayo MD ? Signed By: ?<Electronically signed by Vanna Pelayo MD in OV> ?05/17/241945 ? DD/ 44 ? TD/TT: 05/17/241944 ? Health Data Analyst: ? Procedure Note Eliud Chambers - 05/17/[address] [place] [address] [address] Scan Report Signed Patient: Pat Bush#: [id number] : 1965Acct:[id number] Age/Sex: 58 / FADM Date: 05/17/24 Loc: HO.ED Attending Dr: Ordering Physician: Adriana Robb MD Date of Service: 05/17/24 Procedure(s): CT angio chest PE protocol Accession Number(s): [id number] cc: Giana Isbell MD; Adriana Robb MD Report Number: [id number]: Total DLP = 249.00 mGy-cm CLINICAL HISTORY: cp CT ANGIOGRAPHY CHEST WITH CONTRAST. 3D POSTPROCESSING. Comparison: CT/SR - CT ANGIO CHEST PE PROTOCOL - 03/13/24 16:24 EST Findings: The heart size is normal. RV/LV ratio is normal. No thoracic aortic aneurysm or dissection. No pulmonary artery filling defects. The thyroid gland is not well-visualized. No lymphadenopathy. Bilateral lower lobe and lingular atelectatic changes. No consolidation, pleural effusion or pneumothorax. Cholecystectomy. The bones are intact. The distal tip of the left georgie catheter appears to be near the atriocaval junction. IMPRESSION: 1. No pulmonary emboli. This document has been electronically signed by: Vanna Pelayo DO on 05/17/2024 19:45:54 Dictated By: Vanna Pelayo MD Signed By: <Electronically signed by Vanna Pelayo MD in OV> 05/17/241945 DD/ 44 TD/TT: 05/17/241944 Health Data Analyst: [employer] External Provider IMG CT PROCEDURES Edited Result - Final * XR Chest 1 View (05/17/2024 5:45 PM EDT) Anatomical Region Laterality Modality Chest Radiographic Laura ging 05/17/2024 5:45 PM EDT Narrative 05/17/2024 5:46 PM EDT ? [facility] ?[address] ?[place] [address] ?XRay Report ? Signed ? Patient: Tory Bush ?MR#: [id number] ?? [id number] ? : 1965 ?Acct:[id number] ? Age/Sex: 58 / F ?ADM Date: 04/10/25 ? Loc: HO.ED ? Attending Dr: ? Ordering Physician: Adriana Robb MD ?? Date of Service: 05/17/24 ?? Procedure(s): XR chest 1V ?? Accession Number(s): [id number] ? cc: Giana Isbell MD; Adriana Robb MD ? CLINICAL HISTORY: sob, chest pain ? 1 view chest x-ray ? Comparison: CR/ND/SR - XR CHEST 2V - 04/19/24 08:49 [...] MD in OV> ?05/17/24 1746 ? DD/ 44 ? TD/TT: 05/17/241744 ? Health Data Analyst: ? Procedure Note Romariosho, Image - 05/17/[address] [address] XRay Report Signed Patient: Pat Bush#: [id number] : 1965Acct:[id number] Age/Sex: 58 / FADM Date: 05/17/24 Loc: HO.ED Attending Dr: Ordering Physician: Adriana Robb MD Date of Service: 05/17/24 Procedure(s): XR chest 1V Accession Number(s): [id number] cc: Giana Isbell MD; Adriana Robb MD CLINICAL HISTORY: sob, chest pain 1 view chest x-ray Comparison: CR/ND/SR - XR CHEST 2V - 04/19/24 08:49 [...] MD in OV> 05/17/241745 DD/ 44 TD/TT: 05/17/24 1745 Health Data Analyst: [employer] External Provider IMG XR PROCEDURES Final Result * HOLD LT BLUE - POSSIBLE COAG (05/17/2024 4:44 PM EDT) Pathologist [facility] Hold Lt Blue - Possible Coag SEE NOTE [facility] Comment:Specimen will be hel d untested for 4 hours. Call Hematologyif testing is desired. 05/17/2024 4:44 PM EDT 05/17/2024 4:47 PM EDT Generic External Data Provider LAB BLOOD ORDERAB LES Final Result Performing Organization Address [facility] [[email or web address]] Co de Phone Number [facility] [address] [place] [phone] * High Sensitivity Troponin I (05/17/2024 4:43 PM EDT) [facility] TROPONIN I HIGH SENSITIVITY <2.7 <3.5 - 17.0 ng/L [facility] Comment:The Dinh high sens itivity Troponin-I results should beused in conjunction with other diagnostic information suchas ECG, clinical observations and information, and patientsymptoms to aid in the diagnosis of GA. 05/17/2024 4:43 PM EDT 05/17/2024 4:46 PM EDT Generic External Data Provider LAB BLOOD ORDERAB LES Final Result Performing Organization Address [facility] [[email or web address]] Co de Phone Number [facility] [address] [place] [phone] * (ABNORMAL) Complete Blood Count Manual Diff (05/17/2024 4:43 PM EDT) [facility] White Blood Count 4.1(L) 4.8 - 10.8 X10*3/uL [facility] Red Blood Count 3.36(L) 4.20 - 5.50 X10*6/uL [facility] Hemoglobin 11.4(L) 12.0 - 16.0 g/dl [facility] Hematocrit 32.8(L) 37.0 - 47.0 % [facility] Mean Corpuscular Volume 97.6 80.0 - 98.0 fL [facility] Mean Corpuscular Hemoglobin 33.9(H) 27.0 - 33.0 pg [facility] Mean Corpuscular HGB Conc 34.8 31.0 - 35.0 g/dl [facility] Red Cell Distribution Width 18.7(H) 11.0 - 16.0 % [facility] Platelet Count 85(L) 160 - 400 X10*3/uL [facility] Mean Platelet Volume 10.3 9.4 - 12.3 fL [facility] NRBC Pct Auto 0.0 0.0 - 0.2 /100WBC [facility] NRBC Abs Auto 0.000 0.0 - 0.012 X10*3/uL [facility] Neutrophils % Manual 59 45 - 73 % [facility] Band Neutrophils Percent 6(H) 3 - 5 % [facility] Lymphocytes Percent Manual 27 20 - 40 % [facility] Monocytes Percent Manual 8 2 - 11 % [facility] NEUTROPHILS ABSOLUTE MANUAL 2.7 2.0 - 8.3 X10*3/uL [facility] LYMPHOCYTES ABSOLUTE MANUAL 1.1(L) 1.2 - 4.9 X10*3/uL [facility] MONOCYTES ABSOLUTE MANUAL 0.3 0.1 - 1.2 X10*3/uL [facility] Platelet Estimate DECREASED NORMAL [facility] Platelet Morphology Comment NORMAL [facility] RBC Morphology NOTED [facility] Tear Drop Cells 1+ (0-2) /OIF [facility] 05/17/2024 4:43 PM EDT 05/17/2024 4:46 PM EDT us Generic External Data Provider LAB BLOOD ORDERAB LES Final Result [facility] [address] [place] [address] [phone] * SARS-CoV-2 RNA, Influenza A/B, and RSV RNA, Ql NAAT (05/17/2024 4:43 PM EDT) Pathologist [facility] Influenza A PCR NEGATIVE Negative [facility] Influenza B PCR NEGATIVE Negative [facility] Resp Syncy Virus RNA Qual PCR NEGATIVE Negative [facility] SARS COV2 PCR NEGATIVE Negative [facility] Comment:All test results mus t be [...] use by authorized laboratories.Testing performed on the [employer] GeneXpert utilizingreal-time RT-PCR.All SARS CoV2 and positive influenza A/B results arereported to [facility]. 05/17/2024 4:43 PM EDT 05/17/2024 4:46 PM EDT Generic External Data Provider LAB MICROBIOLOGY - GENERAL ORDERABLES Final Result Performing Organization Address [facility]/ZIP Co de Phone Number [facility] [address] [place] [phone] * B Type Natriuretic Peptide (BNP) (05/17/2024 4:43 PM EDT) Pathologist [facility] B Type Natriuretic Peptide <10 <100 pg/mL [facility] 05/17/2024 4:43 PM EDT 05/17/2024 4:46 PM EDT Generic External Data Provider LAB BLOOD ORDERAB LES Final Result Performing Organization Address [facility]/ZIP Co de Phone Number [facility] [address] [place] [phone] * Magnesium (05/17/2024 4:43 PM EDT) Magnesium 1.6 1.6 - 2.6 mg/dL [facility] 05/17/2024 4:43 PM EDT 05/17/2024 4:46 PM EDT us Generic External Data Provider LAB BLOOD ORDERAB LES Final Result [facility] [address] [place] [address] [phone] * (ABNORMAL) Comprehensive Metabolic Panel (05/17/2024 4:43 PM EDT) Sodium 143 135 - 145 mmol/L [facility] Potassium 4.1 3.3 - 5.1 mmol/L [facility] Chloride 110(H) 96 - 108 mmol/L [facility] Carbon Dioxide 24 22 - 29 mmol/L [facility] Anion Gap 13 12 - 20 [facility] Urea Nitrogen (BUN) 13 9 - 16 mg/dL [facility] Creatinine, Serum 0.82 0.5 - 1.4 mg/dL [facility] Creatinine Clr Calc Pharmacy 53.6 [facility] Comment:Provided height and weight: 152.4 cm,54.431 kg.eGFR (calculated from the MDRD study equation) and eCrCl(calculated from the Cockcroft-Gault equation) are based ondifferent parameters and may not yield comparable results.If eCrCl result is absurd, please check patient'sheight/weight. Estimated Glomerular Filt Rate >60 [facility] Comment:Chronic Kidney Disea se: Estimated GFR < 60 mL/min/1.82m1Pfibih Kidney Disease: Estimated GFR < 15 mL/min/1.73m2 Glucose 111 60 - 115 mg/dL [facility] Calcium 9.1 8.4 - 10.2 mg/dL [facility] Bilirubin, Total 0.4 0.0 - 1.0 mg/dL [facility] Aspartate Amino Transferase 40(H) 5 - 31 U/L [facility] Alanine Aminotransferase 76(H) 0 - 31 U/L [facility] Total Protein 6.0(L) 6.5 - 8.0 g/dL [facility] Albumin Level 3.8 3.5 - 5.0 g/dL [facility] Alkaline Phosphatase 127(H) 39 - 117 U/L [facility] 05/17/2024 4:43 PM EDT 05/17/2024 4:46 PM EDT us Generic External Data Provider LAB BLOOD ORDERAB LES Final Result [facility] [address] [place] [address] [phone] * XR Chest 2 Views (04/19/2024 8:35 AM EDT) Anatomical Region Laterality Modality Chest Radiographic Laura ging 04/19/2024 8:35 AM EDT Narrative 04/19/2024 9:48 AM EDT ? [facility] ?[address] ?[place] [address] ?XRay Report ? Signed ? Patient: Tory Bush ?MR#: [id number] ?? [id number] ? : 1965 ?Acct:[id number] ? Age/Sex: 58 / F ?ADM Date: 04/19/24 ? Loc: HO.LAB ? Attending Dr: Giana Isbell MD ? Ordering Physician: Giana Isbell MD ?? Date of Service: 04/19/24 ?? Procedure(s): XR chest 2V ?? Accession Number(s): [id number] ? cc: Giana Isbell MD ? EXAMINATION: [...] DD/ 0835 ? TD/TT: 04/19/24 0845 ? Health Data Analyst: ? Procedure Note Donhernanter, Image - 04/19/2024 [place] [address] XRay Report Signed Patient: Pat Bush#: [id number] : 1965Acct:[id number] Age/Sex: 58 / FADM Date: 04/19/24 Loc: HO.LAB Attending Dr: Giana Isbell MD Ordering Physician: Giana Isbell MD Date of Service: 04/19/24 Procedure(s): XR chest 2V Accession Number(s): [id number] cc: Giana Isbell MD EXAMINATION: XR CHEST [...] in OV> 04/19/24 0945 DD/ TD/TT: 04/19/24844 Health Data Analyst: us Giana Isbell MD IMG XR PROCEDURES Edited Re sult - Final * BI US Breast Limited Right (04/09/2024 12:30 PM EST) Anatomical Region Laterality Modality Breast Right Ultrasound 04/09/2024 12:3 0 PM EST Narrative 04/09/2024 1:08 PM EST ? [facility] ? [address] ?[place] [address] ? Ultrasound Report ? Signed ? Patient: Tory Bush ?MR#: [id number] ?? [id number] ? : 1965 ?Acct:[id number] ? Age/Sex: 58 / F ?ADM Date: 04/09/24 ? Loc: HO.MAMMO ? Attending Dr: Rhona Badillo MD ? Ordering Physician: Rhona Badillo MD ?? Date of Service: 04/09/24 ?? Procedure(s): US breast RT limited mamm only ?? Accession Number(s): [id number] ? cc: Giana Isbell MD; Rhona Badillo [...] DD/ 1230 ? TD/TT: 04/09/24 1241 ? Health Data Analyst: ? Procedure Note Donvalentineinterpreter, Image - 04/09/2024 [place] [facility] [address] [place], [place] [address] Ultrasound Report Signed Patient: Pat Bush#: [id number] : 1965Acct:[id number] Age/Sex: 58 / FADM Date: 04/09/24 Loc: HO.MAMMO Attending Dr: Rhona Badillo MD Ordering Physician: Rhona Badillo MD Date of Service: 04/09/24 Procedure(s): US breast RT limited mamm only Accession Number(s): [id number] cc: Giana Isbell MD; Rhona Badillo MD [...] by: Carissa Raza DO 04/09/2024 01:05 PM [facility] Dictated By: Carissa Raza DO Signed By: <Electronically signed by Carissa Raza DO in OV> 04/09/24 1305 DD/ 1230 TD/TT: 04/09/24 1241 Health Data Analyst: us [facility] External Provider IMG US PROCEDURES Final Result * (ABNORMAL) POCT HGB A1C (12/06/2023 11:41 AM EDT) Pathologist [facility] Hemoglobin A1C 6.2(A) 4.0 - 6.0 % QC Media Lot # [id number] Lot# Expiration Date Blood 12/06/2023 11:4 1 AM EDT Giana Isbell MD POINT OF CARE TEST ENTER/ED IT ORDERABLES Final Result * ThinPrep Imaging Pap and HPV mRNA E6/E7 (10/25/2023 12:00 AM EDT) Pathologist [facility] HPV nRNA E6/E7 Not Detected Not Detected [facility] Comment:Methodology: Transcr iption-Mediated AmplificationThis assay detects E6/E7 viral messenger RNA (mRNA) from 14high-risk HPV types (16,18,31,33,35,39,45,51,52,56,58,59,66,68).Cervical sources are required for HPV testing.If a vaginal source from a patient who has had atotal hysterectomy with removal of cervix wassubmitted, please contact the testing laboratoryfor alternative testing options.For additional information, please refer tohttp://education.MySQL/faq/MQK303b7(This link if provided for information/educational purposes only.)THIS TEST WAS PERFORMED AT:[facility] [address] [phone] FISCHER MD SOURCE: SEE NOTE [facility] Comment:None given Report Status: [facility] Clinical Information: SEE NOTE [facility] Comment:None given LMP: SEE NOTE [facility] Comment:NONE GIVEN Prev. PAP: SEE NOTE [facility] Comment:NONE GIVEN Prev. BX: SEE NOTE [facility] Comment:NONE GIVEN Statement Of Adequacy: SEE NOTE [facility] Comment:Satisfactory for tiffany luation.Endocervical/transformation zone componentpresent. General Categorization: [facility] Interpretation/Result: SEE NOTE [facility] Comment:Cytology Results: Ne gative for intraepitheliallesion or malignancy. Cytology Comment SEE NOTE [facility] Comment:This Pap test has be en evaluated with computerassisted technology. Weapons Specialist: SEE NOTE [facility] Comment:YP, CT(ASCP)CT scree gino location: [address] [address] Review Weapons Specialist: [facility] Pathologist [facility] PAP Infection [facility] See Note SEE [facility] Comment:EXPLANATORY NOTE:The Pap is a screening test for cervical cancer. It isnot a diagnostic test and is subject to false negativeand false positive results. It is most reliable when asatisfactory sample, regularly obtained, is submittedwith relevant clinical findings and history, and whenthe Pap result is evaluated along with historic andcurrent clinical information. 10/25/2023 10/25/2023 Narrative [facility] - 11/01/2023 12:30 PM EDT SEE SCANNED RESULTS IN EMR Lou Gonzalez MD LAB PATHOLOGY ORDERABLES Ashlyn l Result Performing Organization Address [facility] [[email or web address]] Co de Phone Number [facility] [address] [place] [address] [phone] * Hepatitis Panel, General (01/13/2023 9:50 AM EST) Pathologist [facility] Hepatitis A IgM Nonreactive Nonreactive [facility] Comment:IgM antibodies to RUELAS V not detected; does not exclude earlyacute or recovered HAV infection. ~Hepatitis B Surface Antibody NONREACTIVE Nonreactive [facility] Comment:Nonreactive: < 8.00 mIU/mL Hepatitis B Core Antibody Nonreactive Nonreactive [facility] Hepatitis C Antibody Nonreactive Nonreactive [facility] Comment:Antibodies to HCV no t detected; does not exclude early acuteHCV infection. Hepatitis B Surface Ag Negative Negative [facility] 01/13/2023 9:50 AM EST 01/13/2023 9:52 AM EST us Generic External Data Provider LAB BLOOD ORDERAB LES Final Result Performing Organization Address [facility] [[email or web address]] Co de Phone Number [facility] [address] [place] [address] [phone] * (ABNORMAL) LIPID PANEL, STANDARD (08/04/2021 [...] ?? Esteban JACOBS et al. NIC. 2013;310(19): 6732-6346 ?? (http://education.[employer]/faq/ESA841) Non-HDL Cholesterol 188(H) <130 mg/dL (calc) [facility] Comment: For patients with diabetes plus 1 major ASCVD risk ?? factor, treating to a non-HDL-C goal of <100 mg/dL ?? (LDL-C of <70 mg/dL) is considered a therapeutic ?? option. Triglycerides 189(H) <150 mg/dL [facility] 08/04/2021 9:06 AM EDT Giana Isbell MD LAB BLOOD ORDERABLES Final Result Performing Organization Address City/State/[facility] [[email or web address]] Co de Phone Number [facility] [address] * Colonoscopy (12/02/2015) Colonoscopy Normal Normal Narrative Lily Sanchez - 12/02/2015 Recommended 10 year follow up Historical Provider HEALTH MAINTENANCE Final Result from Last 3 Months or Most Recently Relevant to Health Maintenance Insurance [facility] ONE CARE < 65 [place] [id number] DENTAL - [facility] [employer] Care Teams Business Excellence Manager Relationship Specialty Start Date End Date Giana Isbell MD [address] [place] [address] PCP - General Internal Medicine 09/07/18
--- OUTSIDE RECORDS SUMMARY | 2024-06-22 14:46 | XMS_ITS | Encounter Summary ---
Author Organization [employer] Address [address] [facility] 7t [place] [address] Care Team Providers Care Casting Carrier Name Role Phone Giana Isbell MD Primary Care Provider [phone] Reason for Visit * Reason Onset Date Comments Nurse Triage 08/02/2023 Encounter Details Date Type Department Care Team ([facility] Contact Info) Description 08/02/2023 Telephone [facility] CHC MED & PEDS [address] [place] [address] Giana Isbell MD [address] [place] [address] Nurse Triage Social History Tobacco Use Types [...] t he electric, gas, oil or water [employer] threatened to shut off services in your [...] 08/02/2023 10:38 AM EDT Triage call with [employer] Structural Repair Mechanic [place] [id number] Pt reports a small lump in the corner of lower left eye lid. Pt reports it is red, itchy, painful. This doesn't effect vision and Pt has never had this before. Pt has had this for more than a week and it is increasing in size. No available apts ion [facility] . Pt is advised to come to [facility] to be seen by provider and [...] Description 06/26/2024 1:30 PM EDT Office Visit [facility] MED & PEDS [address] [place] [address] Giana Isbell MD [address] [place] [address] documented as of this encounter Visit Diagnoses Not on filedocumented in this encounter Additional Health Concerns Assessment Noted Time PHQ-9 Depression Total Score: 7 07/30/19 23 10:13 AM EDT documented as of this encounter Care Teams Casting Carrier Relationship Specialty Start Date End Date Giana Isbell MD [address] [place] [address] PCP - General Internal Medicine 09/07/18 documented as of this encounter
--- OUTSIDE RECORDS SUMMARY | 2024-06-22 14:46 | XMS_ITS | Encounter Summary ---
Author Organization [employer] Address [address] [place] [address] 7t [place] [address] Care Team Providers Care Sales Communications Manager Name Role Phone Giana Isbell MD Primary Care Provider [phone] Reason for Visit * Reason Comments Med Refill Encounter Details Date Type Department Care Team ([facility] Contact Info) Description 03/31/2022 Refill [facility] MED & PEDS [address] [place] [address] Giana Isbell MD [address] [place] [address] Acquired hypothyroidism (Primary Dx); Other constipation; Depressive [...] [facility] [address] Contact Info) Description 06/26/2024 1:30 PM EDT Office Visit [facility] MED & PEDS [address] [place] [address] Giana Isbell MD [address] [place] [address] documented as of this encounter Visit Diagnoses Diagnosis Acquired hypothyroidism- Primary Unspecified hypothyroidism Other constipation Depressive disorder Depressive disorder, not elsewhere classified Seasonal allergies Allergic rhinitis, cause unspecified Migraine without aura and without status migrainosus, not intractable documented in this encounter Care Teams Sales Communications Manager Relationship Specialty Start Date End Date Giana Isbell MD [address] [place] [address] PCP - General Internal Medicine 09/07/18 documented as of this encounter
--- OUTSIDE RECORDS SUMMARY | 2024-06-22 14:46 | XMS_ITS | Encounter Summary ---
Author Organization [employer] Address [address] [facility] 7t [place] [address] Care Team Providers Care Director Of Restaurant Name Role Phone Giana Isbell MD Primary Care Provider [phone] Encounter Details Date Type Department Care Team (Latest Contact Info) Description 12/04/2021 Abstract [facility] CONVERSIONS [...] [facility] CHC MED & PEDS [address] [place] [address] Giana Isbell MD [address] [place] [address] documented as of this encounter Visit Diagnoses Not on filedocumented in this encounter Care Teams Director Of Restaurant Relationship Specialty Start Date End Date Giana Isbell MD [address] [place] [address] PCP - General Internal Medicine 09/07/18 documented as of this encounter
--- OUTSIDE RECORDS SUMMARY | 2024-06-22 14:46 | XMS_ITS | Encounter Summary ---
Author Organization [employer] Address [address] [facility] [place] [address] Care Team Providers Care Supervisor Shrimp Pond Name Role Phone Giana Isbell MD Primary Care Provider [phone] Reason for Referral * Consultation (Routine) - Closed Specialty Diagnoses / Procedures Referred By Contac t Referred To Contact Cardiology Diagnoses SOB (shortness of breath) Giana Isbell MD [address] [place] [address] Phone: tel: fax: Kavon Berumen MD [address] [facility] Floor 1 [place] [address] Phone: tel: fax: Referral ID Status Reason Start Date Expiration Date V isits Requested Visits Authorized [id number] Closed Specialty Services Required 12/19/2023 12/18/2024 1 1 Encounter Details Date Type Department Care Team (Late st Contact Info) Description 12/19/2023 Orders Only [facility] CHC MED & PEDS [address] [place] [address] Giana Isbell MD [address] [place], [place] [id number] SOB (shortness of breath) (Primary Dx) Social [...] [facility] [address] [place] [address] Giana Isbell MD [address] [place] [address] Scheduled Referrals Name Type Priority Associated Diagnoses [...] EST Narrative 01/18/2024 9:40 AM EST ? [facility] ? [address] ?[place] [address] ? Ultrasound Report ? Signed with Addenda ? Patient: Tamia SánchezTory ?MR#: [id number] ?? [id number] ? : 1965 ?Acct:[id number] ? Age/Sex: 58 / F ?ADM Date: 01/18/24 ? Loc: HO.MAMMO ? Attending Dr: Pardeep Marcos MD ? Ordering Physician: Pardeep Marcos MD ?? Date of Service: 01/18/24 ?? Procedure(s): US breast ndl core biopsy RT ?? Accession Number(s): [id number] ? cc: Giana Isbell MD; Pardeep Marcos [...] DD/ 0800 ? TD/TT: 01/18/24 0835 ? Hoop Punch And Coiler Operator Helper: ? Procedure Note Barbter, Image - 01/25/2024 [facility] [address] [place] [address] [place] [address] Ultrasound Report Signed with Fani Patient: Pat Bush#: [id number] : 1965Acct:[id number] Age/Sex: 58 / FADM Date: 01/18/24 Loc: ADELITA Attending Dr: Pardeep Marcos MD Ordering Physician: Pardeep Marcos MD Date of Service: 01/18/24 Procedure(s): US breast ndl core biopsy RT Accession Number(s): [id number] cc: Giana Isbell MD; Pardeep Marcos MD [...] OV> 01/18/2437 DD/ 08 TD/TT: 01/18/24 0835 Hoop Punch And Coiler Operator Helper: [facility] External Provider IMG US PROCEDURES Edited Result - Final * BI Mammogram Diagnostic Tomosynthesis Right (01/18/2024 8:00 AM EST) Anatomical Region Laterality Modality Breast Right Mammography 01/18/2024 8:00 AM EST Narrative 01/18/2024 9:40 AM EST ? [facility] ? [address] ?[place] [address] ? Mammography Report ? Signed with Addenda ? Patient: Tory Bush ?MR#: [id number] ?? [id number] ? : 1965 ?Acct:[id number] ? Age/Sex: 58 / F ?ADM Date: 12/11/24 ? Loc: HO.MAMMO ? Attending Dr: Pardeep Marcos MD ? Ordering Physician: Pardeep Marcos MD ?Results: ? Date of Service: 01/18/24 ?Follow Up: ? Procedure(s): MM tomosynthesis diagnostic RT ?? Accession Number(s): [id number] ? cc: Giana Isbell MD; Pardeep Marcos [...] DD/ 0800 ? TD/TT: 01/18/24 0835 ? Hoop Punch And Coiler Operator Helper: ? Procedure Note Donhernanter, Image - 01/25/2024 [facility] [address] [place] [address] Mammography Report Signed with Fani Patient: Pat Bush#: [id number] : 1965Acct:[id number] Age/Sex: 58 / FADM Date: 01/18/24 Loc: ADELITA Attending Dr: Pardeep Marcos MD Ordering Physician: Pardeep Marcosesults: Date of Service: 01/18/24Follow Up: Procedure(s): MM tomosynthesis diagnostic RT Accession Number(s): [id number] cc: Giana Isbell MD; Pardeep Marcos MD [...] OV> 01/18/2437 DD/ 0800 TD/TT: 01/18/24 0835 Hoop Punch And Coiler Operator Helper: [facility] External Provider IMG BI PROCEDURES Edited Result - Final documented in this encounter Visit Diagnoses Diagnosis SOB (shortness of breath)- Primary Shortness of breath documented in this encounter Additional Health Concerns Assessment Noted Time PHQ-9 Depression Total Score: 7 07/30/19 23 10:13 AM EDT documented as of this encounter Care Teams Supervisor Shrimp Pond Relationship Specialty Start Date End Date Giana Isbell MD [address] [place] [address] PCP - General Internal Medicine 09/07/18 documented as of this encounter
--- NOTE | 2024-06-22 14:48 | CA_ITS ---
Transthoracic Echocardiogram Limited Patient (Last, First, Middle): Tory Bush, Gender: Female Date of : 1965 Age: 59 Procedure Date: 06/22/2024 Procedure Type: Transthoracic Echocardiogram Limited Location: OP Height: 152.4 cm Weight: 54.43 kg BSA: 1.50 m2 Heart Rate: bpm BP: 122 / 70 mmHg Service Cleaner: Referring MD: Emmanuel Keys MD Pigment Presser: Kavon Berumen MD Symptoms: Z09 - Encounter for follow-up examination after completed treatment for ... Study Quality: Good ECG Rhythm: Sinus Conclusions: - Normal LV ejection fraction of 60-65% with impaired relaxation filling pattern Findings Left Ventricle Normal left ventricular size, thickness, and systolic function. The visually estimated ejection fraction is between 60-65%. Spectral Doppler is indicative of an impaired relaxation filling pattern. Prior Study Comparison No significant change compared to prior study. Measurements 2D Linear Measurements IVSd: 0.85 0.6-0.9/0.6-1.0 cm LVIDd: 4.40 3.9-5.3/4.2-5.9 cm LVIDd Index: 2.93 2.4-3.2/2.2-3.1 cm/m2 LVIDs: 2.60 2.0-3.6 cm LVPWd: 0.81 0.7-1.1 cm LV Mass: 142.86 67-162/88-224 g LV Mass Index: 95.24 43-95/49-115 g/m2 2D Systolic Function EF 4C: 66.10 >55% EF 2C: 54.10 >55% EF BiP: 61.10 >55% Mitral Valve MV Pk E: 0.87 MV PK A: 0.95 MV Decel Time: 189.00 E/A: 0.90 E'Lateral: 10.40 E'Medial: 9.57 E/E' Med: 9.10 E/E' Lat: 8.40 PHT: 55.00 MVA PHT: 4.[address] [place]: 4.62 Diastolic Function MV Pk E: 0.87 MV Pk A: 0.95 E/A: 0.90 E'Medial: 9.57 E/E' Med: 9.10 E' Laterial: 10.40 E/E' Lat: 8.40 Right Ventricle TAPSE (mm): 24.00 TVS' Josh: 13.00 Updated in Other Vendor System with Status of Final Kavon Berumen MD electronically signed on 06/23/2024 11:41:55 AM with status of Final
== END ==
LOC: HO.CARD 14:44
PROVIDERS: PCP Internal Medicine; Referring Provider Internal Medicine; Visit Provider Internal Medicine
DX: Z85.9 Personal history of malignant neoplasm, unspecified (principal)
CPT/HCPCS: 93308

== ENCOUNTER → 2024-06-22 14:48 | Outpatient (BNV) | payer OTHER, SELFPAY | PROVIDERS: PCP Internal Medicine; Referring Provider Internal Medicine; Visit Provider Internal Medicine Cardiovascular Disease | DX: Z09 Encounter for follow-up examination after completed treatment for conditions other than malignant neoplasm (principal) | CPT/HCPCS: 93308; 93321 ==

== ENCOUNTER → 2024-07-06 09:49 | Outpatient (REF) | payer OTHER, SELFPAY ==
--- NOTE | ~2024-07-06 | NM_ITS ---
Lexiscan Myocardial perfusion study Indication: Coronary artery disease Technique: The patient was brought in for a Lexiscan perfusion study on 07/06/2024 and was injected 0.4 mg of Lexiscan intravenously. Within a minute of this injection 25 mCi of sestamibi was given intravenously. Images were obtained using the SPECT gamma camera interlaced with the gating device. Images were obtained in supine position. Resting perfusion study was performed on 07/09/2024. Patient was administered 25 mCi of sestamibi intravenously at rest. Images were then obtained in supine position. Total DLP 71 mGy-cm. Images were processed with the software and compared side to side in short axis, horizontal long axis and vertical long axis views. Findings: Raw aquisition reviewed. The stress perfusion study showed no significant perfusion abnormality. Both uncorrected as well as CT attenuation corrected images were reviewed. The gated study shows normal LV systolic function with calculated LVEF of 65%. LV cavity is normal in size. The gated study shows normal wall thickening and contraction of segments. Resting study shows no significant perfusion abnormality stress that diminished tracer uptake in the mid to distal part of anterior wall. It persists with CT attenuation correction. Could be artifactual finding as it is not visualized during stress. Gating at rest reveals normal wall motion with ejection fraction at 73%. The findings are consistent with no clear reversible or fixed perfusion defects. NM/NM cardiolite stress test Impression: 1. Myocardial perfusion imaging study shows no clear evidence of ischemia or infarction. 2. Gated LVEF is 65% during stress. 73% during rest. 3. Transient ischemic dilatation not present. EKG component of the test reported separately. Electronically signed by: Emmanuel Keys MD 07/10/2024 11:18 AM EDT
--- NOTE | 2024-07-06 09:58 | CA_ITS ---
Acquisition Time: 2024-07-06 09:57:33 Total Exercise Time: 00:00:32 Test Indications: ABN ECHO CP Medications: SEE H&P Protocol: PHILIP Max HR: 100 BPM 62% of Pred: 161 BPM Max BP: 114/62 mmHG Max Work Load: 1.9 METS Exercise stress test with exercise 32 secs of Philip Protocol, requesting to stop due to leg pain, chest tightness worse at 7, and feeling tired. Test switched to Lexiscan. Pharmacological stress test with Lexiscan while pt swings her legs, with reports of 3/10 constant baseline chest tightness, dizziness, without any arrythmias, with normotensive response to injection. Nondiagnostic EKG for ischemia. In recovery, pt treated with IVP Aminophylline 75 mg to reverse Lexiscan after which pt feeling back to baseline. Nuclear images pending. Test reviewed with Dr. Berumen. Referred By: Emmanuel Keys Electronically Signed By: Alejandro Vanessa
--- OUTSIDE RECORDS SUMMARY | 2024-07-06 10:14 | XMS_ITS | Encounter Summary ---
Author Organization [employer] Address [address] [facility] 7t [place] [address] Care Team Providers Care Tire Repairer Name Role Phone Giana Isbell MD Primary Care Provider [phone] Encounter Details Date Type Department Care Team ([facility] st Contact Info) Description 04/12/2024 Orders Only [facility] MEDICINE [address] [place] [address] Giana Isbell MD [address] [place] [address] Bronchopneumonia (Primary Dx) Social History Tobacco Use [...] as of this encounter Plan of Treatment Not on file documented as of this encounter Procedures Procedure Name Priority Date/Time Associated Diagnosis Comments XR CHEST 2 VIEWS Routine 04/19/2024 8:35 AM EDT Bronchopneumonia documented in this encounter Results * XR Chest 2 Views (04/19/2024 8:35 AM EDT) Anatomical Region Laterality Modality Chest Radiographic Laura ging 04/19/2024 8:35 AM EDT Narrative 04/19/2024 9:48 AM EDT ? [facility] ?[address] ?[place] [address] ?XRay Report ? Signed ? Patient: Tory Bush ?MR#: [id number] ?? [id number] ? : 1965 ?Acct:[id number] ? Age/Sex: 58 / F ?ADM Date: 04/19/24 ? Loc: HO.LAB ? Attending Dr: Giana Isbell MD ? Ordering Physician: Giana Isbell MD ?? Date of Service: 04/19/24 ?? Procedure(s): XR chest 2V ?? Accession Number(s): [id number] ? cc: Giana Isbell MD ? EXAMINATION: [...] DD/ 0835 ? TD/TT: 04/19/24 0845 ? Dewaterer Operator: ? Procedure Note Eliud Chambers - 04/19/[address] [address] XRay Report Signed Patient: Pat Bush#: [id number] : 1965Acct:[id number] Age/Sex: 58 / FADM Date: 04/19/24 Loc: HO.LAB Attending Dr: Giana Isbell MD Ordering Physician: Giana Isbell MD Date of Service: 04/19/24 Procedure(s): XR chest 2V Accession Number(s): [id number] cc: Giana Isbell MD EXAMINATION: XR CHEST [...] signed by Ant Cole MD in OV> 04/19/2445 DD/ 4 TD/TT: 04/19/24844 Dewaterer Operator: Giana Isbell MD IMG XR PROCEDURES Edited Re sult - Final documented in this encounter Visit Diagnoses Diagnosis Bronchopneumonia- Primary Bronchopneumonia, organism unspecified documented in this encounter Additional Health Concerns Assessment Noted Time PHQ-9 Depression Total Score: 24 03/28/ 025 9:26 AM EST documented as of this encounter Care Teams Tire Repairer Relationship Specialty Start Date End Date Giana Isbell MD [address] [place] [address] PCP - General Internal Medicine 09/07/18 documented as of this encounter
== END ==
LOC: HO.CARD 09:49
PROVIDERS: PCP Internal Medicine; Visit Provider Internal Medicine
DX: R07.2 Precordial pain (principal)
CPT/HCPCS: 78452; 93017; A9500; J0280; J2785

== ENCOUNTER → 2024-07-06 09:58 | Outpatient (BNV) | payer OTHER, SELFPAY | PROVIDERS: PCP Internal Medicine | DX: I25.10 Atherosclerotic heart disease of native coronary artery without angina pectoris (principal) | CPT/HCPCS: 78452; 93016; 93018 ==

== ENCOUNTER 2024-07-11 13:24 | Outpatient (AMB) | payer OTHER, SELFPAY ==
[2024-07-11 13:27] VITALS: BP 120/76; PULSE 84; BMI 26.3
--- NOTE | 2024-07-11 13:27 | A.OFFVIS_ITS ---
Vital Signs 07/11/24 13:27 Height 5 ft Weight 134 lb 7.712 oz BMI 26.3 BP 120/76 Blood Pressure Location Lt brachial Position Sitting Pulse 84 Intake Visit Reasons: f/up testing-echo/ mibi Intake Note: Follow-up after echo and mibi c/o fatigue News Wire Photo Operator Required: Yes News Wire Photo Operator Services: News Wire Photo Operator Present News Wire Photo Operator Name: amisha Cho Chef Under: Chef Under Present Accompanied by: Family/Other Allergies acetaminophen [Vicodin] Allergy (Unknown, Verified 07/06/24 13:08) unk Penicillins Adverse Reaction (Mild, Verified 07/06/24 13:08) HYPERTENSION hydrocodone [From VICODIN] Adverse Reaction (Unknown, Verified 07/06/24 13:08) HIGH BP HPI Comments Details: This is a 59-year-old female patient coming in for a follow-up visit. Patient with a history of breast cancer undergoing chemotherapy. Previously patient was seen in the office for an abnormal echocardiogram that showed possible basal anteroseptal hypokinesis. Patient had also reported some atypical chest discomfort as well as chronic fatigue from her chemotherapy. Patient subsequently underwent a stress test and a repeat echo. Patient is otherwise denying any cardiac symptoms including exertional chest pain, shortness of breath, palpitations, dizziness, orthopnea, PND, leg edema, presyncope, or syncope. [facility] Medical History Anemia GERD (gastroesophageal reflux disease) Fatty liver Invasive ductal carcinoma of right breast Type 2 diabetes mellitus Vitamin D deficiency Multinodular thyroid Hypothyroidism Surgical History History of lobectomy of thyroid Hx of colonoscopy History of esophagogastroduodenoscopy (EGD) History of carpal tunnel surgery of left wrist Tubal ligation status Hx of foot surgery Hx of epicondylectomy Hx of cholecystectomy Hx of thyroidectomy Hx of appendectomy Family History Father No problems noted. 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 Gender identity: Female Female Reproductive History Menstrual Age of Menarche: 15 Review of Systems Const Denies chills, Denies fatigue, Denies fever(s), Denies frequent falls, Denies weakness, Denies weight gain and Denies weight loss ENT Denies dizziness Card Denies chest pain, Denies leg edema, Denies lightheadedness, Denies palpitations, Denies dyspnea, Denies dyspnea on exertion, Denies orthopnea and Denies other (loss of consciousness) Resp Denies cough, Denies dyspnea and Denies dyspnea on exertion GI Denies hematochezia and Denies change in stool character Musc Denies abnormal gait, Denies muscle weakness, Denies numbness, Denies radiating pain into limb and Denies tingling Neuro Denies abnormal gait, Denies dizziness, Denies frequent falls, Denies numbness, Denies tingling and Denies weakness Endo Denies fatigue and Denies palpitations Physical Exam Vital Signs: Last Vital Signs Pulse 84 07/11/24 13:27 BP 120/76 07/11/24 13:27 BMI result Body Mass Index 26.3 Const General: cooperative, healthy appearing, comfortable and no acute distress Orientation/consciousness: patient oriented x3 HEENT Head: Yes normal to inspection Neck Neck: Yes normal visual inspection, Yes trachea midline and Yes supple Chest Chest palpation & inspection: normal inspection of the chest Resp Effort & Inspection: normal respiratory effort Auscultation: clear to auscultation bilaterally, no crackles, no rales, no rhonchi and no wheezes Cardio Jugular venous distension: no JVD Palpation: normal PMI Rate: regular rate Rhythm: regular rhythm Heart sounds: S1 normal heart sound present, S2 normal heart sound present, no click, no gallops, no murmurs and no rubs Peripheral pulses: Peripheral pulses 2+ throughout GI Inspection: Yes normal to inspection Palpation (GI): Soft to palpation Auscultation: normal bowel sounds Skin General skin exam: no rashes or lesions noted Neuro General: patient oriented x3 Extrem General: Yes normal to inspection, No no pedal edema and No calf tenderness Psych Appearance: grossly normal Mental Status: mental status grossly normal Speech and movement: Normal speech and movement present Assessment & Plan Assessment & Plan (1) Precordial chest pain: Code(s): R07.2 - Precordial pain Category: Medical (2) Regional wall motion abnormality of heart: Code(s): R93.1 - Abnormal findings on diagnostic imaging of heart and coronary circulation Category: Medical Plan 06/22/2024-patient underwent a repeat echocardiogram that showed a normal LV systolic function with an ejection fraction between 60-65% with impaired relaxation filling pattern. 07/06/2024-patient also underwent a myocardial perfusion study which was normal. Given above findings and resolution of chest pain, reassurance was provided, and no further testing is indicated at this time. Clinically stable and euvolemic. Blood pressure within normal limits. Advised heart healthy diet, regular exercise, and management of her vascular risk factors. We will follow up with the patient in a year, sooner if needed.. In the interim, patient will call the office with any concerns or change in symptoms. This note was generated using voice recognition software. While every effort has been made to ensure accuracy and proper radiologic electronic specialist, there may be occasional errors that could affect the content or meaning of the described symptoms. Coding Level of Care Code Est Pt Level 4 (63711) Complex EM visit Add On G2211 Diagnoses Precordial chest pain R07.2 Regional wall motion abnormality of heart R93.1 Time Spent (min) 31 Comment Time spent in reviewing the chart, test results, assessment, counseling and documentation.
--- OUTSIDE RECORDS SUMMARY | 2024-07-11 13:38 | XMS_ITS | Encounter Summary ---
Author Organization [employer] Address [address] [facility] 7t [place] [address] Care Team Providers Care Machining Engineer Name Role Phone Giana Isbell MD Primary Care Provider [phone] Encounter Details Date Type Department Care Team ([facility] st Contact Info) Description 04/12/[address] [facility] MEDICINE [address] [place] [address] Giana Isbell MD [address] [place] [address] Bronchopneumonia (Primary Dx) Social History Tobacco Use [...] EDT Narrative 04/19/2024 9:48 AM EDT ? [facility] ?[address] ?[place] [address] ?XRay Report ? Signed ? Patient: Tory Bush ?MR#: [id number] ?? [id number] ? : 1965 ?Acct:[id number] ? Age/Sex: 58 / F ?ADM Date: 04/19/24 ? Loc: HO.LAB ? Attending Dr: Giana Isbell MD ? Ordering Physician: Giana Isbell MD ?? Date of Service: 04/19/24 ?? Procedure(s): XR chest 2V ?? Accession Number(s): [id number] ? cc: Giana Isbell MD ? EXAMINATION: [...] DD/ 0835 ? TD/TT: 04/19/24 0845 ? Fine Chemicals Operator: ? Procedure Note Eliud Chambers - 04/19/[address] [address] XRay Report Signed Patient: Pat Bush#: [id number] : 1965Acct:[id number] Age/Sex: 58 / FADM Date: 04/19/24 Loc: HO.LAB Attending Dr: Giana Isbell MD Ordering Physician: Giana Isbell MD Date of Service: 04/19/24 Procedure(s): XR chest 2V Accession Number(s): [id number] cc: Giana Isbell MD EXAMINATION: XR CHEST [...] in OV> 04/19/2445 DD/ 4 TD/TT: 04/19/24844 Fine Chemicals Operator: Giana Isbell MD IMG XR PROCEDURES Edited Re sult - Final documented in this encounter Visit Diagnoses Diagnosis Bronchopneumonia- Primary Bronchopneumonia, organism unspecified documented in this encounter Additional Health Concerns Assessment Noted Time PHQ-9 Depression Total Score: 24 03/28/ 025 9:26 AM EST documented as of this encounter Care Teams Machining Engineer Relationship Specialty Start Date End Date Giana Isbell MD [address] [place] [address] PCP - General Internal Medicine 09/07/18 documented as of this encounter
== END 2024-07-11 13:46 | disposition home or self-care (01) ==
PROVIDERS: PCP Internal Medicine
DX: R07.2 Precordial pain (principal); R93.1 Abnormal findings on diagnostic imaging of heart and coronary circulation
CPT/HCPCS: 99214; G2211

== ENCOUNTER → 2024-07-11 13:24 | Outpatient (BNVA) | payer OTHER, SELFPAY | PROVIDERS: PCP Internal Medicine | DX: R07.2 Precordial pain (principal); R93.1 Abnormal findings on diagnostic imaging of heart and coronary circulation | CPT/HCPCS: 99212 ==

== ENCOUNTER 2024-07-17 14:56 | Outpatient (REF) | payer OTHER, SELFPAY ==
[2024-07-17 16:14] LABS: MANUAL DIFF FLAG NO
[2024-07-17 16:36] LABS: Basophils Percent Auto 0.6 % (0-2); Eosinophils Absolute Auto 0.1 X10*3/uL (0.0-0.4); Eosinophils Percent Auto 2.1 % (0-4); Hematocrit 37.2 % (37.0-47.0); Imm Gran Abs Auto 0.04 X10*3/uL (0.00-0.03); Imm Gran Pct Auto 0.8 % (0.0-0.4); Lymphocytes Absolute Auto 1.1 X10*3/uL (1.2-4.9); Lymphocytes Percent Auto 21.3 % (20-40); Mean Corpuscular HGB Conc 32.3 g/dl (31.0-35.0); Mean Corpuscular Hemoglobin 33.5 pg (27.0-33.0); Mean Corpuscular Volume 103.9 fL (80.0-98.0); Mean Platelet Volume 9.4 fL (9.4-12.3); Monocytes Absolute Auto 0.4 X10*3/uL (0.1-1.2); Monocytes Percent Auto 8.4 % (2-11); Neutrophils Absolute Auto 3.5 x10*3/uL (2.0-8.3); Neutrophils Percent Auto 66.8 % (45-73); Platelet Count 167 X10*3/uL (160-400); Red Blood Count 3.58 X10*6/uL (4.20-5.50); Red Cell Distribution Width 13.9 % (11.0-16.0); White Blood Count 5.2 X10*3/uL (4.8-10.8)
[2024-07-17 17:04] LABS: Alanine Aminotransferase 15 U/L (0-31); Albumin Level 3.7 g/dL (3.5-5.0); Alkaline Phosphatase 112 U/L (39-117); Anion Gap 9 (12-20); Aspartate Amino Transferase 19 U/L (5-31); Bilirubin Total 0.3 mg/dL (0.0-1.0); Blood Urea Nitrogen 12 mg/dL (9-16); Carbon Dioxide 28 mmol/L (22-29); Chloride 109 mmol/L (96-108); Estimated Glomerular Filt Rate > 60; Glucose Random 125 mg/dL (60-115); Magnesium 1.6 mg/dL (1.6-2.6); Potassium 3.8 mmol/L (3.3-5.1); Sodium 142 mmol/L (135-145); Total Protein 6.3 g/dL (6.5-8.0)
[2024-07-17 17:20] LABS: Free T4 (Free Thyroxine) 1.26 ng/dL (0.71-1.85)
[2024-07-17 17:21] LABS: TSH reflex Free T4 0.84 uIU/mL (0.32-4.0); Thyroid Stimulating Hormone 0.84 uIU/mL (0.32-4.0)
[2024-07-21 00:19] LABS: Thyroid Stimulating Immunoglob <89 % baseline (<140)
== END 2024-07-17 14:57 | disposition home or self-care (01) ==
LOC: HO.LAB 14:56
PROVIDERS: Nurse Practitioner Family; PCP Internal Medicine; Visit Provider Student in an Organized Health Care Education/Training Program
DX: C50.911 Malignant neoplasm of unspecified site of right female breast (principal); E89.0 Postprocedural hypothyroidism
CPT/HCPCS: 36415; 80053; 83735; 84439; 84443; 84445; 85025; 99212

== ENCOUNTER 2024-07-17 14:56 | Outpatient (AMB) | payer OTHER, SELFPAY ==
--- NOTE | 2024-07-17 15:23 | A.OFFVIS_ITS ---
Vital Signs 07/17/24 15:36 Height 5 ft Weight 133 lb 6 oz BMI 26.0 BP 117/69 Blood Pressure Location Lt brachial Position Sitting Pulse 97 Intake Visit Reasons: (L) Breast lesion Intake Note: Patient is seen in office for follow up visit, right breast. Pt c/o: currently on chemotherapy every 3 weeks, was currently stop until she discuss lumpectomy and will be having radiation after Beautician Apprentice Required: Yes Beautician Apprentice Language: Water Resources Engineer Services: Beautician Apprentice Present Beautician Apprentice Name: Dee PERRY Information Interpreted: non-clinical & clinical Telephoto Engineer: Telephoto Engineer Present Accompanied by: Family/Other Allergies acetaminophen [Vicodin] Allergy (Unknown, Verified 07/17/24 15:38) unk Penicillins Adverse Reaction (Mild, Verified 07/17/24 15:38) HYPERTENSION hydrocodone [From VICODIN] Adverse Reaction (Unknown, Verified 07/17/24 15:38) HIGH BP Medication List - Last Reconciled 07/17/24 by Pardeep Marcos MD albuterol sulfate 2.5 mg inhalation Q8H PRN albuterol-budesonide 90-80 mcg/actuation 2 inhalations inhalation TID PRN ammonium lactate 12% (AmLactin) 1 appl topical BID capsaicin 0.025% 1 appl topical BEDTIME cholecalciferol (vitamin D3) (Vitamin D3) 50 mcg PO DAILY dexamethasone 2 mg PO BID diclofenac sodium 1% 4 grams topical DAILY PRN docusate sodium 100 mg PO DAILY PRN erythromycin 0.5 inches ophthalmic (eye) TID famotidine 20 mg PO DAILY fluticasone propionate 50 mcg/actuation 50 sprays intranasal DAILY hydrocortisone 2.5% 1 appl topical BID levothyroxine 137 mcg PO DAILY Magic Mouthwash Diphen/Nystat/Antacid 1:1:1 10 mL PO BID PRN nortriptyline 100 mg PO BEDTIME ondansetron 8 mg PO Q8H PRN pantoprazole 20 mg PO QAM PRN quetiapine 100 mg PO BEDTIME PRN sertraline 100 mg PO DAILY sumatriptan succinate 50 mg PO DAILY venlafaxine 37.5 mg PO BID HPI Comments Details: 59-year-old female patient originally evaluated on 01/10/2024 for a right breast mass located in the 9 o'clock position noted on self-examination. Patient has a strong family history of breast cancer including her mother who developed breast cancer at the age of 52. She also has a sister with ovarian cancer. She is and breastfed both her children. Workup with mammogram and ultrasound revealed a suspicious density measuring 16 x 20 x 11 mm with calcifications felt to be suspicious for malignancy. An ultrasound-guided core biopsy performed on 01/18/2024 confirmed invasive ductal carcinoma, grade 3, ER/OH positive, HER2 Janki positive, Ki-67 high. She was evaluated by Dr. Badillo who recommended neoadjuvant chemotherapy. She underwent 6 cycles of Taxotere, carboplatin, and Herceptin. Follow-up imaging indicated a marked improvement in the tumor size. The plan is for pertuzumab and Herceptin. She returns today to discuss her surgical options. Genetic testing was performed which revealed no clinically significant mutations. A variant of uncertain significance was identified in the MSH2 gene. She is now approximately 5 weeks since her last dose of chemotherapy an in general feels well. [facility] Medical History Anemia GERD (gastroesophageal reflux disease) Fatty liver Invasive ductal carcinoma of right breast Type 2 diabetes mellitus Vitamin D deficiency Multinodular thyroid Hypothyroidism Surgical History History of lobectomy of thyroid Hx of colonoscopy History of esophagogastroduodenoscopy (EGD) History of carpal tunnel surgery of left wrist Tubal ligation status Hx of foot surgery Hx of epicondylectomy Hx of cholecystectomy Hx of thyroidectomy Hx of appendectomy Family History Father No problems noted. 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 Gender identity: Female Female Reproductive History Menstrual Age of Menarche: 15 Review of Systems Const All systems reviewed & are unremarkable except as noted in HPI and below Physical Exam Vital Signs: Last Vital Signs Pulse 97 07/17/24 15:36 BP 117/69 07/17/24 15:36 BMI result Body Mass Index 26.0 Const General: cooperative and no acute distress Nutritional Appearance: well nourished Orientation/consciousness: patient oriented x3 Limitations: no limitations HEENT Head: Yes normocephalic and Yes atraumatic Ears: hearing grossly normal bilaterally Chest Other: Right breast: No skin changes, nipple discharge, nipple retraction, or any further palpable masses appreciated. No enlarged lymph nodes are appreciated. Previously palpated tumor is no longer identified. Resp Effort & Inspection: normal respiratory effort, no audible wheezes, no cough and no respiratory distress Cardio Jugular venous distension: no JVD GI Inspection: Yes normal to inspection Skin Other: Warm, dry, no rash Neuro General: patient oriented x3 Extrem General: Yes no clubbing, cyanosis or edema Assessment & Plan Assessment & Plan (1) Invasive ductal carcinoma of right breast: Code(s): C50.911 - Malignant neoplasm of unspecified site of right female breast Category: Medical Plan 59-year-old female patient with a self palpated right breast cancer determined to have an invasive ductal carcinoma ER/OH/HER2 Janki positive, now having completed neoadjuvant chemotherapy, returns to discuss her surgical options. Examination reveals no residual palpable tumor in the right breast and no enlarged lymph nodes. No overlying skin changes are appreciated as well. Patient would be a good candidate for breast conservation. I reviewed the procedure, risks and alternatives for a right breast lumpectomy with localizer, right axillary sentinel node biopsy and she consents to the surgery. This will be scheduled as a short-stay surgery. Coding Level of Care Code Est Pt Level 4 (97709) Diagnoses Invasive ductal carcinoma of right breast C50.911
[2024-07-17 15:36] VITALS: BP 117/69; PULSE 97; BMI 26.0
--- OUTSIDE RECORDS SUMMARY | 2024-07-17 18:02 | XMS_ITS | Encounter Summary ---
Author Organization [employer] Address [address] [place] [address] Care Team Providers Care Commodity Analyst Name Role Phone Giana Isbell MD Primary Care Provider [phone] Encounter Details Date Type Department Care Team ([facility] st Contact Info) Description 04/12/2024 Orders Only [facility] [address] [place] [address] Giana Isbell MD [address] [place] [address] Bronchopneumonia (Primary Dx) Social History Tobacco Use [...] EDT Narrative 04/19/2024 9:48 AM EDT ? [facility] ?[address] ?[place] [address] ?XRay Report ? Signed ? Patient: Tory Bush ?MR#: [id number] ?? [id number] ? : 1965 ?Acct:[id number] ? Age/Sex: 58 / F ?ADM Date: 04/19/24 ? Loc: HO.LAB ? Attending Dr: Giana Isbell MD ? Ordering Physician: Giana Isbell MD ?? Date of Service: 04/19/24 ?? Procedure(s): XR chest 2V ?? Accession Number(s): [id number] ? cc: Giana Isbell MD ? EXAMINATION: [...] DD/ 0835 ? TD/TT: 04/19/24 0845 ? Shield Operator: ? Procedure Note Eliud Chambers - 04/19/[address] [address] XRay Report Signed Patient: Pat Bush#: [id number] : 1965Acct:[id number] Age/Sex: 58 / FADM Date: 04/19/24 Loc: HO.LAB Attending Dr: Giana Isbell MD Ordering Physician: Giana Isbell MD Date of Service: 04/19/24 Procedure(s): XR chest 2V Accession Number(s): [id number] cc: Giana Isbell MD EXAMINATION: XR CHEST [...] in OV> 04/19/2445 DD/ 4 TD/TT: 04/19/24844 Shield Operator: Giana Isbell MD IMG XR PROCEDURES Edited Re sult - Final documented in this encounter Visit Diagnoses Diagnosis Bronchopneumonia- Primary Bronchopneumonia, organism unspecified documented in this encounter Additional Health Concerns Assessment Noted Time PHQ-9 Depression Total Score: 24 03/28/ 025 9:26 AM EST documented as of this encounter Care Teams Commodity Analyst Relationship Specialty Start Date End Date Giana Isbell MD [address] [place] [id number] PCP - General Internal Medicine 09/07/18 documented as of this encounter
== END 2024-07-17 15:46 | disposition home or self-care (01) ==
LOC: HO.HGS 14:57
PROVIDERS: PCP Internal Medicine; Visit Provider Surgery
DX: C50.911 Malignant neoplasm of unspecified site of right female breast (principal)
CPT/HCPCS: 99214

== ENCOUNTER 2024-08-22 08:31 | Outpatient (REF) | payer OTHER, SELFPAY ==
--- NOTE | ~2024-08-22 | US_ITS ---
EXAMINATION: Ultrasound GUIDED RFID LOCALIZATION BREAST, RIGHT CLINICAL INFORMATION: History of right breast invasive ductal carcinoma treated with neoadjuvant chemotherapy. COMPARISON: Available priors on PACS. TECHNIQUE NEEDLE LOC: Proper informed consent is obtained from the patient after discussion of the procedure, potential risks and complications, and alternatives including declining the procedure today. Patient was given an opportunity for questions. The patient appeared to understand. The patient consented to the procedure and signed the consent form. GUIDANCE: Ultrasound. APPROACH: Lateral. TARGET: Butterfly marker clip central outer right breast.. ANESTHESIA: Lidocaine 10 mL. LOCALIZATION SYSTEM: [employer] LOCallizer Wire-Free Guidance System with 12g needle applicator. RADIOFREQUENCY TAG: ID # [id number] RF Tag ID confirmed with LOCalizer Guidance System prior to placement. The skin is prepped and local anesthesia administered. The needle is positioned and RFID tag deployed. Final images demonstrate the LOCalizer RF tag to reside adjacent to the butterfly clip. The patient tolerated the procedure well and had no immediate complications. Dressing placed and home instructions reviewed. US/US Breast RF Tag Device Right IMPRESSION: -Status post right breast RFID localization. Electronically signed by: Carissa Raza DO 08/22/2024 01:55 PM EDT
--- NOTE | ~2024-08-22 | MM_ITS ---
EXAMINATION: Ultrasound GUIDED RFID LOCALIZATION BREAST, RIGHT CLINICAL INFORMATION: History of right breast invasive ductal carcinoma treated with neoadjuvant chemotherapy. COMPARISON: Available priors on PACS. TECHNIQUE NEEDLE LOC: Proper informed consent is obtained from the patient after discussion of the procedure, potential risks and complications, and alternatives including declining the procedure today. Patient was given an opportunity for questions. The patient appeared to understand. The patient consented to the procedure and signed the consent form. GUIDANCE: Ultrasound. APPROACH: Lateral. TARGET: Butterfly marker clip central outer right breast.. ANESTHESIA: Lidocaine 10 mL. LOCALIZATION SYSTEM: [employer] LOCallizer Wire-Free Guidance System with 12g needle applicator. RADIOFREQUENCY TAG: ID # [id number] RF Tag ID confirmed with LOCalizer Guidance System prior to placement. The skin is prepped and local anesthesia administered. The needle is positioned and RFID tag deployed. Final images demonstrate the LOCalizer RF tag to reside adjacent to the butterfly clip. The patient tolerated the procedure well and had no immediate complications. Dressing placed and home instructions reviewed. MM/MM tomosynthesis diagnostic RT IMPRESSION: -Status post right breast RFID localization. Electronically signed by: Carissa Raza DO 08/22/2024 01:55 PM EDT
--- NOTE | ~2024-08-22 | MM_ITS ---
EXAMINATION: MM MAMMOGRAM GUIDED RFID LOCALIZATION BREAST, left breast CLINICAL INFORMATION: Left breast papilloma right breast invasive ductal carcinoma here for bilateral TAG localization COMPARISON: Available priors on PACS. TECHNIQUE NEEDLE LOC: Proper informed consent is obtained from the patient after discussion of the procedure, potential risks and complications, and alternatives including declining the procedure today. Patient was given an opportunity for questions. The patient appeared to understand. The patient consented to the procedure and signed the consent form. GUIDANCE: Digital mammography. APPROACH: Superior. TARGET: Bulbar Marker clip in the retroareolar region.. ANESTHESIA: carbonated lidocaine 1%: 10 mL. LOCALIZATION SYSTEM: -[employer] LOCallizer Wire-Free Guidance System with 12g needle applicator. -Length: 5 cm. -RADIOFREQUENCY TAG: ID # [id number] RF Tag ID confirmed with LOCalizer Guidance System prior to placement. The skin is prepped and local anesthesia administered. The needle is positioned and RFID tag deployed. Final images demonstrate the LOCalizer RF tag to reside adjacent to the marker clip. The patient tolerated the procedure well and had no immediate complications. Dressing placed and home instructions reviewed. MM/MM RF Tag device LT IMPRESSION: -Status post left breast RFID localization. Electronically signed by: Carissa Raza DO 08/22/2024 03:43 PM EDT
--- NOTE | ~2024-08-22 | US_ITS ---
EXAMINATION: US DIAGNOSTIC ULTRASOUND BREAST, left breast CLINICAL INFORMATION: Patient here for left breast tag localization of MRI enhancing mass with pathology of a papilloma ultrasound evaluation preprocedure to see if we can localizer clip.. COMPARISON: Comparison is made with relevant prior imaging. TECHNIQUE: Ultrasound of the breast is performed with real-time hugo scale imaging and color Doppler. FINDINGS: Targeted color Doppler ultrasound scanning in the retroareolar region of the left breast demonstrates normal fibroglandular breast tissue. The enhancing MRI mass with pathology of papilloma and post biopsy marker clip are not seen on ultrasound today therefore mammographic guided tag localization will be performed same day. Results are discussed with the patient at time of visit. US/US breast LT limited IMPRESSION: No post biopsy clip or mass is seen within the left breast on ultrasound for localization. ASSESSMENT: BI-RADS 1: Negative RECOMMENDATION: Mammographic tag localization today. This patient's information was entered into a reminder system with a target due date for their next mammogram. Electronically signed by: Carissa Raza DO 08/22/2024 01:48 PM EDT
--- OUTSIDE RECORDS SUMMARY | 2024-08-22 08:38 | XMS_ITS | Encounter Summary ---
Author Organization [employer] Address [address] [place] [address] Care Team Providers Care Practice Clinician Name Role Phone Giana Isbell MD Primary Care Provider [phone] Encounter Details Date Type Department Care Team ([facility] st Contact Info) Description 07/19/2024 Orders Only [facility] [address] [place] [address] Giana Isbell MD [address] [place] [address] Migraine with aura and without status migrainosus, not intractable (Primary Dx) Social History Tobacco Use Types [...] on file documented as of this encounter Visit Diagnoses Diagnosis Migraine with aura and without status migrainosus, not intractable- Primary documented in this encounter Additional Health Concerns Assessment Noted Time PHQ-9 Depression Total Score: 24 025 9:26 AM EST documented as of this encounter Care Teams Practice Clinician Relationship Specialty Start Date End Date Giana Isbell MD [address] [place] [id number] PCP - General Internal Medicine 09/07/18 documented as of this encounter
--- OUTSIDE RECORDS SUMMARY | 2024-08-22 08:38 | XMS_ITS | Data Portability ---
Author Organization [employer], [facility] Address [address] [place] [phone] Care Team Providers Care Commissary Clerk Name Role Phone [facility] Referring Provider [facility] Referring Provider Assessment Encounter Date Assessment Date Assessment LastModified by Organization Details LastModified Time 10/02/2021 10/02/2021 I have reviewed and agree with the Assessment and Plan as documented by the Improvement Nurse. I provided real -time medical direction via phone for this encounter, and was available for additional phone based assistance as needed. Patient given the opportunity to ask questions. [email or web address] Not available 10/02/2021 19:13:58 04/13/2023 04/13/2023 Ms. Tory Cantrell is a 57yoF who is seen today for further evaluation of right eye irritation. Ms. Cantrell reports three days of right eye itching and watering. She denies any fevers but reports that her left eye is starting to also itch and she has some minimal right ear discomfort. Otherwise has been feeling well. VSS. Improvement Nurse site uploads picture of minimally injected and tearing right eye. Exam is c/w viral conjunctivitis . Recommended ongoing OTC therapies and cool compress/hand hygeine. Red flags to be reviewed by manager department. Not available 04/13/2023 10:45:55 Plan of Treatment [...] Not available Not available Not available 10/02/2021 [id number] SNOMED Not Available [facility] - production 03:43:36 890 hydrocodo ne Not available Not available Not available Not available 10/02/2021 [id number] RxNorm Cynthia Maguire MD [address] [facility],[address], [place], [address] , [employer] 18:39:23 Medications Name Sig Start Date Stop [...] Respiratory rate Body weight Body temperature Systolic And Diastolic Provider Name and Address Organization Details Last Updated DateTime 4 98 % 98 % 88 /min 18 /min 66994.8 8 g 97.6 [degF] 124/76 mm[Hg] Not Available [employer] 4 10:39:50 Date Recorded Body weight Provider Name an d Address Organization Details Last Updated DateTime 10/02/2021 44600.01 g Shravan Mallory [address] [facility],[address] [facility], [place], [address], [place] - [employer] 10/02/2021 18:45:32 Date Recorded Body temperature Heart rate Oxygen saturation Oxygen saturation in Arterial blood by Pulse oximetry Respiratory rate Oxygen saturation Oxygen saturation in Arterial blood by Pulse oximetry Body temperature Heart rate Respiratory rate Systolic And Diastolic Systolic And Diastolic Provider Name and Address Organization Details Last Updated DateTime 2 98.5 [degF] 72 /min 98 % 98 % 12 /min 98 % 98 % 98.5 [degF] 72 /min 12 /min 120/70 mm[Hg] 120/70 mm[Hg] Not Available [facility] - production 17:37:54 Social History None recorded. Functional Status None recorded. Mental Status None recorded. Family History Nothing Reported. Medical History No medical history recorded. Gynecological HistoryNo gynecological history recorded. Obstetrics History GPAL:G 0 P 0 0 0 0 Past Encounters Encounter ID Performer Location Encounter Start Date Encounter Closed Date Diagnosis/Indication Diagnosis SNOMED-CT Code Diagnosis ICD10 Code Diagnosis Note [id number] Cynthia Maguire MD [facility] - [facility] [address] [place] [phone] 10/02/2021 16:58:56 10/21/2021 11:37:50 Pain in right heel 4147342436 [id number] M79.671 possible plantar fasciitis- vs talar tendonitis advised to elevate/ apply ice wrapped in a towel- apply for 15- 20 min q 3-4 H w/a. Avoid WB- needs to see ortho- may need injection- to keep appt w/ ortho next Mon. will cover w/ ketorolac for tonight/ Advised may have Tylenol 650 mg q 6 h prn pain as well- continue Naprosyn in am Delilah Hope MD Main - [facility] [address] [place] [phone] 04/13/2023 10:39:45 04/14/2023 09:54:22 Viral conjunctivitis 21748562 B30.9 Health Concerns Section Related Observation LastModified by Organization Detai ls LastModified Time None Recorded Concern Status LastModified by Organization Details LastModified Time None Recorded Advance Directives Directive None Recorded Payers Insurance Date Sequence Insurance Name Policy Number Policy Pastor Covered Member ID Pastor Member ID Guarantor Name 04/03/2023 1 [facility] [employer] - DOS PRIOR TO 2022 - DUAL ELIGIBLE (MEDICARE REPLACEMENT/ADV ANTAGE - HMO) Tory Cantrell [id number] Tory Cantrell 04/14/2023 1 [facility] [employer] - DOS ON OR AFTER 2022 - DUAL ELIGIBLE - CARE HOME OPTIONS AND ONE CARE (MEDICARE REPLACEMENT/ADV ANTAGE - HMO) Tory Cantrell [id number] Tory Cantrell Notes Date Note Type Note [...] .................. .................. .................. .................. .................. .................. ............... Improvement Nurse Note: Eval for right heel pain. pt stated she has had right heel pain for about 1 month, getting worse lately. Pt states she has appointment with ortho on Tuesday- pt has HX of tendon surgeries and chronic pain. pt states pain is bottom of heel, with discomfort generalized around ankle. no other new pain. pt denied fever/chills, denied sob/cp. [facility] recommended ice, elevate and we gave 15mg toradol for temp relief of pain. pt to follow up with pcp .................. .................. .................. .................. .................. .................. .................. ............... Disposition: FulfilledSEGMD: As above- hx chronic pain- On Naprosyn 500 mg q AM- denies hx CKD- not on anticoagulants- denies numbness/ tingling- worse w/ palpation/ ambulation/ WB Cynthia Maguire MD [address] [place] [address],[address], [place], [address], [employer] 10/03/2021 17:32:32 04/13/2023 text/html HPI: HX Depression,migrain es. Three day history of eye irritation redness with drainage. No fever.slight ear discomfort. .................. .................. .................. .................. .................. .................. .................. ............... CRC Nurse Triage Notes (Yvette Guerra): Comments: HPI reviewed. No further information reviewed to process visit. .................. .................. .................. .................. .................. .................. .................. ............... Improvement Nurse Note From Devan Brown: Pt co irrigation [...] Pt education on signs indicating the ER. Improvement Nurse Allergies: Acetaminophen, Penicillin .................. .................. .................. .................. .................. .................. .................. ............... Disposition: Fulfilled Delilah Hope MD [address] [facility],[address], [place], [address], [employer] 04/13/2023 16:03:59 OBGyn Episode No OBEpisode recorded.
== END 2024-08-22 08:32 | disposition home or self-care (01) ==
LOC: HO.MAMMO 08:31
PROVIDERS: PCP Internal Medicine; Visit Provider Surgery
DX: C50.911 Malignant neoplasm of unspecified site of right female breast (principal); N63.20 Unspecified lump in the left breast, unspecified quadrant; N64.89 Other specified disorders of breast
CPT/HCPCS: 19281; 19285; 76642; 77061; 77065; C1819

== ENCOUNTER → 2024-08-22 10:00 | Outpatient (BNV) | payer OTHER, SELFPAY | PROVIDERS: PCP Internal Medicine; Visit Provider Internal Medicine | DX: D05.11 Intraductal carcinoma in situ of right breast (principal); D24.2 Benign neoplasm of left breast; Z98.82 Breast implant status | CPT/HCPCS: 19281; 19285 ==

== ENCOUNTER → 2024-08-27 07:14 | Outpatient (BNV) | payer OTHER, SELFPAY | PROVIDERS: PCP Internal Medicine; Visit Provider Radiology Diagnostic Radiology | DX: C77.3 Secondary and unspecified malignant neoplasm of axilla and upper limb lymph nodes (principal) | CPT/HCPCS: 78195 ==

== ENCOUNTER 2024-08-27 07:30 | Day surgery (SDC) | payer OTHER, SELFPAY ==
[2024-08-14 12:34] VITALS: BP 126/70; PULSE 81; RESP 16; O2SAT 98; BMI 25.6
--- NOTE | 2024-08-14 12:50 | P.CONAN_ITS ---
Documented by User: Kaia Mcadams NP 08/23/24 14:40 HPI - Anesthesia Eval Consult details Narrative: 59yo F for Right and Left Breast Lumpectomy w/LOCalizer, Right [place] Node Biopsy Breast CA: Port in situ L chest - last round of chemo 06/2024 Cardiac w/u with [facility] Cardiology for atypical CP, abnormal echo (pre-chemo). Stress and repeat ECHO [place] [facility] Active Problems Active Problems: All Active Problems Chest pain (Acute) Precordial chest pain (Acute) Regional wall motion abnormality of heart (Acute) Chemotherapy follow-up examination (Acute) Bronchopneumonia (Acute) Sepsis (Acute) Pneumonia (Acute) Hypotension (Acute) Iliotibial band syndrome, left leg (Acute) Trochanteric bursitis, left hip (Acute) Abnormal ultrasound of breast (Acute) Breast mass, right (Acute) Family history of breast cancer in first degree relative (Acute) Sphincter of Oddi dysfunction (Acute) Constipation (Acute) Sphincter of Oddi spasm (Acute) Elevated liver transaminase level (Acute) Elevated alkaline phosphatase level (Acute) Hospital discharge follow-up (Acute) Transaminitis (Acute) Hepatitis (Acute) UTI (urinary tract infection) (Acute) Microscopic hematuria (Acute) Endocervical polyp (Acute) Postmenopausal bleeding (Acute) Female pelvic pain (Acute) Iron deficiency anemia (Acute) Painful arc syndrome of right shoulder (Acute) Invasive ductal carcinoma of right breast (Chronic) Type 2 diabetes mellitus (Acute) Hypothyroidism (Acute) Vitamin D deficiency (Acute) Multinodular thyroid (Acute) Past Medical History Medical History Arthritis Thrombocytopenia Anxiety Depression Numbness History of chemotherapy Asthma Anemia GERD (gastroesophageal reflux disease) Fatty liver Invasive ductal carcinoma of right breast Type 2 diabetes mellitus Vitamin D deficiency Multinodular thyroid Hypothyroidism Family History Family History Father No problems noted. Mother Colon cancer Breast cancer Hypertension Sister Colon cancer Other Stomach cancer Family history of problems with anesthesia: No Surgical History Surgical History History of lobectomy of thyroid Hx of colonoscopy History of esophagogastroduodenoscopy (EGD) History of carpal tunnel surgery of left wrist Tubal ligation status Hx of foot surgery Hx of epicondylectomy Hx of cholecystectomy Hx of thyroidectomy Hx of appendectomy History of Problems with Anesthesia: No Social History Social History Household Members: Family Household Members Other:: 2 grand kids Housing: Homeless Are you a primary memory care program resident to a significant other at home: No Do you presently have visiting nurse or other home services: No Alcohol intake: never Comment: helping patient to bathroom and ensuring her safety Patient Tobacco Use Status: Never used Tobacco Use of substances other than those prescribed or required for medical reasons: No Have you been hit, kicked, punched, or otherwise hurt by someone within the past year? 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 Gender identity: Female Meds Allergies Allergy/AdvReac Type Severity Reaction Status Date / Time acetaminophen (Vicodin) Allergy Unknown unk Verified 07/17/24 15:38 Penicillins AdvReac Mild HYPERTENSIO Verified 07/17/24 15:38 N hydrocodone (From VICODIN) AdvReac Unknown HIGH BP Verified 07/17/24 15:38 Home Medications ?Medication ?Instructions ?Recorded ?Confirmed ?Last Taken ?Type nortriptyline 50 mg capsule 100 mg PO BEDTIME 12/20/19 08/14/24 03/12/24 History quetiapine 100 mg tablet 100 mg PO BEDTIME PRN Sleep 12/20/19 08/14/24 03/12/24 History docusate sodium 100 mg capsule 100 mg PO DAILY PRN Con stipation 07/17/22 08/14/24 03/12/24 History capsaicin 0.025 % topical cream 1 appl topical BEDTIME 05/12/23 08/14/24 03/12/24 History cholecalciferol (vitamin D3) 50 50 mcg PO DAILY 08/14/24 03/12/24 History mcg (2,000 unit) capsule (Vitamin D3) Magic Mouthwash 10 ml PO BID PRN Mouth Pain 03/13/24 08/14/24 Unknown History Diphen/Nystat/Antacid 1:1:1 240 mL suspension diclofenac sodium 1 % topical gel 4 g topical DAILY TN N Pain 03/13/24 08/14/24 03/12/24 History albuterol sulfate 2.5 mg/3 mL 2.5 mg inhalation Q8H TN N 05/09/24 08/14/24 Unknown History (0.083 %) solution for nebulization Shortness Of Breat h Or Wheezing sertraline 100 mg tablet 100 mg PO DAILY 05/09/2410/01 Unknown History sumatriptan succinate 50 mg tablet 50 mg PO DAILY PRN Headache 05/09/24 08/14/24 Unknown History venlafaxine 37.5 mg tablet 37.5 mg PO BID 05/09/2410/01 Unknown History Exam Height,Weight and Vital Signs: Height 5 ft Weight 59.421 kg Last Vital Signs Pulse 81 08/14/24 12:34 Resp 16 08/14/24 12:34 BP 126/70 08/14/24 12:34 Pulse Ox 98 08/14/24 12:34 O2 Del Method Room Air 08/14/24 12:34 Pertinent Lab Results Pertinent Lab Results: Laboratory Tests 07/17/24 16:13 WBC 5.2 Hgb 12.0 D Hct 37.2 D Plt Count 167 Sodium 142 Potassium 3.8 Chloride 109 H Carbon Dioxide 28 BUN 12 Creatinine 0.90 Narrative Narrative: 06/22/2024-patient underwent a repeat echocardiogram that showed a normal LV systolic function with an ejection fraction between 60-65% with impaired relaxation filling pattern. 07/06/2024-patient also underwent a myocardial perfusion study which was normal. Assessment and Plan Assessment Anesthesia Assessment: Chart Reviewed Final Anesthetic Review Family History of Problems with Anesthesia: No History of Problems with Anesthesia: No Documented by User: Aislinn Ivey MD 08/27/24 10:07 [facility] Past Medical History Medical History Arthritis Thrombocytopenia Anxiety Depression Numbness History of chemotherapy Asthma Anemia GERD (gastroesophageal reflux disease) Fatty liver Invasive ductal carcinoma of right breast Type 2 diabetes mellitus Vitamin D deficiency Multinodular thyroid Hypothyroidism Family History Family History Father No problems noted. Mother Colon cancer Breast cancer Hypertension Sister Colon cancer Other Stomach cancer Surgical History Surgical History History of lobectomy of thyroid Hx of colonoscopy History of esophagogastroduodenoscopy (EGD) History of carpal tunnel surgery of left wrist Tubal ligation status Hx of foot surgery Hx of epicondylectomy Hx of cholecystectomy Hx of thyroidectomy Hx of appendectomy Social History Social History Household Members: Family Household Members Other:: 2 grand kids Housing: Homeless Are you a primary memory care program resident to a significant other at home: No Do you presently have visiting nurse or other home services: No Alcohol intake: never Comment: helping patient to bathroom and ensuring her safety Patient Tobacco Use Status: Never used Tobacco Use of substances other than those prescribed or required for medical reasons: No Have you been hit, kicked, punched, or otherwise hurt by someone within the past year? 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 Gender identity: Female Meds Allergies Allergy/AdvReac Type Severity Reaction Status Date / Time acetaminophen (Vicodin) Allergy Unknown unk Verified 07/17/24 15:38 Penicillins AdvReac Mild HYPERTENSIO Verified 07/17/24 15:38 N hydrocodone (From VICODIN) AdvReac Unknown HIGH BP Verified 07/17/24 15:38 Home Medications ?Medication ?Instructions ?Recorded ?Confirmed ?Last Taken ?Type nortriptyline 50 mg capsule 100 mg PO BEDTIME 12/20/19 08/14/24 03/12/24 History quetiapine 100 mg tablet 100 mg PO BEDTIME PRN Sleep 12/20/19 08/14/24 03/12/24 History docusate sodium 100 mg capsule 100 mg PO DAILY PRN Con stipation 07/17/22 08/14/24 03/12/24 History capsaicin 0.025 % topical cream 1 appl topical BEDTIME 05/12/23 08/14/24 03/12/24 History cholecalciferol (vitamin D3) 50 50 mcg PO DAILY 08/14/24 03/12/24 History mcg (2,000 unit) capsule (Vitamin D3) Magic Mouthwash 10 ml PO BID PRN Mouth Pain 03/13/24 08/14/24 Unknown History Diphen/Nystat/Antacid 1:1:1 240 mL suspension diclofenac sodium 1 % topical gel 4 g topical DAILY TN N Pain 03/13/24 08/14/24 03/12/24 History albuterol sulfate 2.5 mg/3 mL 2.5 mg inhalation Q8H TN N 05/09/24 08/14/24 Unknown History (0.083 %) solution for nebulization Shortness Of Breat h Or Wheezing sertraline 100 mg tablet 100 mg PO DAILY 05/09/2410/01 Unknown History sumatriptan succinate 50 mg tablet 50 mg PO DAILY PRN Headache 05/09/24 08/14/24 Unknown History venlafaxine 37.5 mg tablet 37.5 mg PO BID 05/09/2410/01 Unknown History Exam Airway Mallampati Class: II TM Dist: >3cm Neck ROM: Full Heart: rrr Lungs: cta Assessment and Plan Assessment Anesthesia Assessment: Anesthesia Plan Discussed Final Anesthetic Review NPO: Yes ASA Class: III Final Preanesthetic Review: No Changes in Pt Med Stat, Meds/Allgs Chart Reviewed, Consent Obtained/Reviewed and Anes Risks/Benef Reviewed Patient Risk: Intermediate Procedure Risk: Intermediate Anesthetic Plan Anesthetic Plan: GA Disposition: Standard PACU
[2024-08-27] VITALS (8 sets, daily range): BP systolic 94–131; BP diastolic 48–61; PULSE 75–79; RESP 15–20; TEMP 36.5–36.6; O2SAT 94–97
--- NOTE | ~2024-08-27 | NM_ITS ---
EXAMINATION: Nuclear medicine sentinel node with imaging. CLINICAL INDICATION: Malignant neoplasm right breast, invasive ductal carcinoma. COMPARISON: Diagnostic mammogram 08/22/2024. TECHNIQUE: 5% lidocaine jelly was applied around the right breast areola 30 minutes prior to the test. The area around the right breast areola was cleaned in aseptic manner. 0.5 mCi of technetium 99m Tilmanocept divided in 4 equal doses was injected subcutaneously in 4 quadrants around the right breast areola and imaging obtained 20 minutes later. Patient tolerated procedure extremely well. FINDINGS/ NM/NM sentinel node w imaging IMPRESSION: Moderate focal activity seen around the right breast areola from subcutaneous injection. Multiple sentinel nodes seen along the anterior axilla on anterior view. Electronically signed by: Percy Piedra MD 08/27/2024 09:35 AM EDT
--- NOTE | ~2024-08-27 | MM_ITS ---
Right single specimen radiograph demonstrates the butterfly clip and the tag within the specimen. Left single specimen radiograph demonstrates the bar clip and the tag within the specimen. Electronically signed by: Carissa Raza DO 08/27/2024 11:19 AM EDT
[2024-08-27] MEDS: Lidocaine HCl 4 % Topical 50 ML SOLUTION 1 APPL TOPICAL (07:45)
[2024-08-27] MEDS: Lactated Ringers 1,000 ML 100 ML IVCONT (09:12)
--- NOTE | 2024-08-27 09:53 | MHC.SHP ---
Pre-Procedural Eval Section A - 24 Hr Update-Section A only Date of Service: 08/27/24 The patient is an INPATIENT: No Changes since office visit: Yes Patient answered all questions; No Cold of Flu in the past 2 weeks, No New Medical Problems and No Changes in Medication The patient has been examined within 24 hours of the surgical procedure. The History & Physical has been completed within 30 days and I have reviewed it.: No Section B - Complete if H&P > 30 days Chief Complaint: Malignant neoplasm of unspecified site of right Details of Present Illness: Patient also has a papilloma of the left breast noted on recent biopsy which we will also need to be excised with localizer. Relevant Family History (Specify if Yes): No Relevant Social History: None Present Medications: see Short Stay Collaborative assessment Medical History: No relevant PMH History of Previous Operations: No relevant previous surgery Allergies: Allergies Allergy/AdvReac Type Severity Reaction Status Date / Time acetaminophen (Vicodin) Allergy Unknown unk Verified 07/17/24 15:38 Penicillins AdvReac Mild HYPERTENSIO Verified 07/17/24 15:38 N hydrocodone (From VICODIN) AdvReac Unknown HIGH BP Verified 07/17/24 15:38 Review of Systems Sugical H&P ROS: Negative: Constitution, Cardiovascular, Respiratory, Neurological, Psychiatric, Hem-Onc, Allergic/Immunologic, Gastrointestinal, Genitourinary, Musculoskeletal, Integumentary, Endocrine and Eyes/Ears/Nose/Throat Exam Surgical H&P Exam: Normal: HEENT, Normal: Heart, Normal: Lungs, Normal: Extremities, Normal: Abdomen, Normal: Skin and Normal: Neurological Plan Diagnosis/Plan: Change (The patient we will require lumpectomy of the left breast for a papilloma as well as the right breast for the invasive ductal carcinoma with right axillary sentinel node biopsy) I have reviewed the history and physical and performed a pertinent physical examination on my patient. No changes have occurred unless specified. I reviewed the procedure, alternatives, and risks in detail with the patient and she consents to a right breast lumpectomy with localizer, right axillary sentinel node biopsy, and left lumpectomy with localizer. Time Spent With Patient Time: Total time managing care of this patient today ____ minutes.
--- NOTE | 2024-08-27 11:57 | W.PM.OPN ---
Operative Note Operative Note Date of Service: 08/27/24 Narrative: Preoperative diagnosis: Right breast invasive ductal carcinoma, left breast papilloma Postoperative diagnosis: Same Procedure:Bilateral breast lumpectomy with localizer, right axillary sentinel node biopsy Surgeon: Pardeep Marcos MD [employer] Marketing Manager: Teresa Leiva PA-C; DILSHAD Reyes Anesthesia: General LMA Indications for procedure: 59-year-old female patient presenting with invasive ductal carcinoma of the right breast and subsequently underwent neoadjuvant chemotherapy now presenting for a right breast lumpectomy with localizer and right axillary sentinel node biopsy. She also incidentally had a left breast papilloma on biopsy presents today for left breast lumpectomy with localizer Operative findings: Both marking clips and LOCalizer clips were found in bilateral specimens. Approximately 5 sentinel nodes were identified. Specimen: 1. Right breast lumpectomy, 2. Left breast lumpectomy, 3. Right axillary sentinel node biopsy 1 through 5. Estimated blood loss: 20 mL Complications: None Procedure details: Patient was brought to the OR and placed in a supine position. After administering general anesthesia the patient's bilateral breasts were prepped with ChloraPrep and draped in a sterile fashion. A surgical time-out was called the consent confirmed. Patient received preoperative antibiotics and Venodyne boots were in place. Beginning in the right breast the localizer device was used to identify the area of clip placement. A transverse incision was then created directly over this spot after applying local anesthesia. The incision was carried out through subcutaneous tissue. Superior and inferior skin flaps were then created with electrocautery. A core tissue around the localizing clip was then created using electrocautery beginning at the medial margin followed by the superior margin, inferior margin, lateral margin, and posterior margin. The specimen was then marked with a long suture at the lateral margin, short suture at the superior margin, and looped suture at the posterior margin. This was sent to pathology for further examination. Attention was then directed to the left breast where again the localizing device was used to identify the area of the marking clip. This was located directly below the nipple-areolar complex in the 06:00 location. A curvilinear incision was made at the margin of the areola at 06:00 and carried out through subcutaneous tissue. Inferior and superior skin flaps were then created using electrocautery. Core of tissue around the localizing clip was then created beginning with the superior margin, medial margin, lateral margin, inferior margin, and then posterior margin. Once again the specimen was marked with a long suture at the lateral margin, short suture at the superior margin, and looped suture at the deep margin. This was sent to pathology as well for gross examination. Attention was then directed to the right axilla where the gamma probe was used to identify area of increased activity. A curvilinear incision was made in this location at approximately the hairline and carried out through subcutaneous tissue, past clavipectoral fascia into the axillary compartment. The gamma probe was used to direct dissection to an area in the lateral superficial axilla with the most radio activity. This was grasped with an Allis clamp and dissected free using electrocautery. A total of 5 sentinel nodes were identified and all sent individually to pathology for further examination. All incisions were then irrigated with saline solution. After confirmation of the bilateral breasts excisions from pathology, all incisions were then closed. Beginning in the right breast, deep breast tissue was reapproximated using interrupted 3-0 Polysorb sutures. Dermis was then reapproximated using interrupted 3-0 Polysorb sutures. Skin was then closed using a running subcuticular 4-0 Polysorb suture. Axilla was then closed using deep 3-0 Polysorb sutures in the clavipectoral fascia. Dermis was reapproximated using interrupted 3-0 Polysorb sutures. Skin was then closed using a running subcuticular 4-0 Polysorb suture. Attention was then directed to the left breast where again deep breast tissue was reapproximated using interrupted 3-0 Polysorb sutures. Dermis was reapproximated using interrupted 3-0 Polysorb sutures and skin closed using a running subcuticular 4-0 Polysorb suture. Sterile dressings consisting of Steri-Strips, 4 x 4 gauze and Tegaderm were then applied. The patient tolerated the procedure well. Sponge, instrument, and needle counts reported as correct. The patient was transferred to PACU in stable condition. Breast [place] Node Biopsy Substrate(s) used for sentinel node biopsy in the non-neoadjuvant setting: N/A Substrate(s) used for sentinel node biopsy in the neoadjuvant setting: Radiotracer All colored nodes or non-colored nodes present at the end of a dye filled lymphatic channel were removed, if dye was used as the substrate for localization: N/A All significantly radioactive nodes were removed, if radionuclide was used as the substrate for localization: Yes All palpably suspicious nodes were removed, if present: Yes If clips were placed in pathology-involved nodes, those nodes were identified and removed: N/A Procedure performed with curative intent?: Yes General Surg. - Synoptic Notes Breast [place] Node Biopsy Substrate(s) used for sentinel node biopsy in the non-neoadjuvant setting: N/A Substrate(s) used for sentinel node biopsy in the neoadjuvant setting: Radiotracer All colored nodes or non-colored nodes present at the end of a dye filled lymphatic channel were removed, if dye was used as the substrate for localization: N/A All significantly radioactive nodes were removed, if radionuclide was used as the substrate for localization: Yes All palpably suspicious nodes were removed, if present: Yes If clips were placed in pathology-involved nodes, those nodes were identified and removed: N/A Procedure performed with curative intent?: Yes
== END 2024-08-27 13:16 | disposition home or self-care (01) ==
PROVIDERS: PCP Internal Medicine; Visit Provider Surgery
PROC: (CPT 19301; principal; 2024-08-27 10:10)
PROC: (CPT 19301; 2024-08-27 10:10)
DX: C50.811 Malignant neoplasm of overlapping sites of right female breast (principal); Z17.0 Estrogen receptor positive status [ER+]; Z17.21 Progesterone receptor positive status; Z17.31 Human epidermal growth factor receptor 2 positive status; D24.2 Benign neoplasm of left breast; Z80.3 Family history of malignant neoplasm of breast; Z80.41 Family history of malignant neoplasm of ovary; D64.9 Anemia, unspecified; K76.0 Fatty (change of) liver, not elsewhere classified; E11.9 Type 2 diabetes mellitus without complications; E55.9 Vitamin D deficiency, unspecified; E89.0 Postprocedural hypothyroidism; Z79.899 Other long term (current) drug therapy; Z79.51 Long term (current) use of inhaled steroids; Z88.0 Allergy status to penicillin; Z88.5 Allergy status to narcotic agent; Z98.890 Other specified postprocedural states
CPT/HCPCS: 19301; 38525; 38900; 78195; 88307; 88342; A9520; J0131; J1885; J2003; J2405; J2704; J3010; J3374

== ENCOUNTER → 2024-08-27 07:30 | Outpatient (BNV) | payer OTHER, SELFPAY | PROVIDERS: PCP Internal Medicine; Visit Provider Surgery | DX: C50.911 Malignant neoplasm of unspecified site of right female breast (principal); D24.2 Benign neoplasm of left breast | CPT/HCPCS: 19125; 19301; 38525; 38900 ==

== ENCOUNTER 2024-08-30 15:12 | Outpatient (AMB) | payer OTHER, SELFPAY ==
--- OUTSIDE RECORDS SUMMARY | 2024-08-30 15:14 | XMS_ITS | Data Portability ---
Author Organization [employer], [facility] Address [address] [place] [phone] Care Team Providers Care Computer Field Technician Name Role Phone [facility] Referring Provider [facility] Referring Provider Assessment Encounter Date Assessment Date Assessment LastModified by Organization Details LastModified Time 10/02/2021 10/02/2021 I have reviewed and agree with the Assessment and Plan as documented by the Packaging Coordinator. I provided real -time medical direction via phone for this encounter, and was available for additional phone based assistance as needed. Patient given the opportunity to ask questions. [email or web address] Not available 10/02/2021 19:13:58 04/13/2023 04/13/2023 Ms. Tory Cantrell is a 57yoF who is seen today for further evaluation of right eye irritation. Ms. Cantrell reports three days of right eye itching and watering. She denies any fevers but reports that her left eye is starting to also itch and she has some minimal right ear discomfort. Otherwise has been feeling well. VSS. Packaging Coordinator site uploads picture of minimally injected and tearing right eye. Exam is c/w viral conjunctivitis . Recommended ongoing OTC therapies and cool compress/hand hygeine. Red flags to be reviewed by distribution sales manager. Not available 04/13/2023 10:45:55 Plan of Treatment [...] Not available Not available Not available 10/02/2021 [id number] SNOMED Not Available [employer] - production 03:43:36 890 hydrocodo ne Not available Not available Not available Not available 10/02/2021 5489 RxNorm Cynthia Maguire MD [address] [facility],[address], [place], [address] , [email or web address] 18:39:23 Medications Name Sig Start Date Stop [...] % 98 % 88 /min 18 /min 55114.8 8 g 97.6 [degF] 124/76 mm[Hg] Not Available Treato 4 10:39:50 Date Recorded Body weight Provider Name an d Address Organization Details Last Updated DateTime 10/02/2021 93258.01 g Shravan Mallory [address] [facility],[address] [facility], [place], [address], [place] - [employer] 10/02/2021 18:45:32 Date Recorded Body temperature Heart [...] 3564 Cynthia Maguire MD Main - [facility] [address] [place] [phone] 10/02/2021 16:58:56 10/21/2021 11:37:50 Pain in right heel [id number] M79.671 possible plantar fasciitis- vs talar tendonitis [...] am Delilah Hope MD Main - [facility] [address] [place] [phone] 04/13/2023 10:39:45 04/14/2023 09:54:22 Viral conjunctivitis [id number] B30.9 Health Concerns Section Related Observation LastModified by Organization Detai ls LastModified Time None Recorded Concern Status LastModified by Organization Details LastModified Time None Recorded Advance Directives Directive None Recorded Payers Insurance Date Sequence Insurance Name Policy Number Policy Pastor Covered Member ID Pastor Member ID Guarantor Name 04/03/2023 1 [employer] [employer] - DOS PRIOR TO 2022 - DUAL ELIGIBLE (MEDICARE REPLACEMENT/ADV ANTAGE - HMO) Tory Cantrell [id number] Tory Cantrell 04/14/2023 1 [employer] - DOS ON OR AFTER 2022 - DUAL ELIGIBLE - PENITENTIARY OPTIONS AND ONE CARE (MEDICARE REPLACEMENT/ADV ANTAGE - HMO) Tory Cantrell [id number] Tory Cantrell Notes Date Note Type Note Provider Name and Address Organization Details Recorded Time 10/02/2021 text/html ROS as noted in the HPI HPI: History of Migraines. Arthritis and heel spur on left side. Allergic to Hydrocodone Bitartrate .................. .................. .................. .................. .................. .................. .................. ............... CRC Nursing Assessment: Comments: CRC RN did not require any additional information to process this visit. .................. .................. .................. .................. .................. .................. .................. ............... Packaging Coordinator Note: Eval for right heel pain. pt stated she has had right heel pain for about 1 month, getting worse lately. Pt states she has appointment with ortho on Tuesday- pt has HX of tendon surgeries and chronic pain. pt states pain is bottom of heel, with discomfort generalized around ankle. no other new pain. pt denied fever/chills, denied sob/cp. [facility] recommended ice, elevate and we gave 15mg toradol for temp relief of pain. pt to follow up with pcp .................. .................. .................. .................. .................. .................. .................. ............... Disposition: FulfilledSEGMD: As above- hx chronic pain- On Naprosyn 500 mg q AM- denies hx CKD- not on anticoagulants- denies numbness/ tingling- worse w/ palpation/ ambulation/ WB Cynthia Maguire MD [address] [place] [address],[address], [place], [address], [email or web address] 10/03/2021 17:32:32 04/13/2023 text/html HPI: HX Depression,migrain es. Three day history of eye irritation redness with drainage. No fever.slight ear discomfort. .................. .................. .................. .................. .................. .................. .................. ............... CRC Nurse Triage Notes (Yvette Guerra): Comments: HPI reviewed. No further information reviewed to process visit. .................. .................. .................. .................. .................. .................. .................. ............... Packaging Coordinator Note From Devan Brown: Pt co irrigation [...] Pt education on signs indicating the ER. Packaging Coordinator Allergies: Acetaminophen, Penicillin .................. .................. .................. .................. .................. .................. .................. ............... Disposition: Fulfilled Delilah Hope MD [address] [facility],[address], [place], [phone], [employer] - [email or web address] 04/13/2023 16:03:59 OBGyn Episode No OBEpisode recorded.
--- OUTSIDE RECORDS SUMMARY | 2024-08-30 15:14 | XMS_ITS | Encounter Summary ---
Author Organization [employer] Address [address] [facility] [address] [place] [address] Care Team Providers Care Field Sales Engineer Name Role Phone Giana Isbell MD Primary Care Provider [phone] Encounter Details Date Type Department Care Team ([facility] st Contact Info) Description 07/19/2024 Orders Only [facility] MED & PEDS [address] [place] [address] Giana Isbell MD [address] [place] [address] Migraine with aura and without status migrainosus, [...] documented as of this encounter Care Teams Field Sales Engineer Relationship Specialty Start Date End Date Giana Isbell MD [address] [place] [phone] PCP - General Internal Medicine 09/07/18 documented as of this encounter
--- NOTE | 2024-08-30 15:42 | MHC.OFFVIS ---
Intake Visit Reasons: f/u Allergies acetaminophen (Vicodin) Allergy (Unknown, Verified 07/17/24 15:38) unk Penicillins Adverse Reaction (Mild, Verified 07/17/24 15:38) HYPERTENSION hydrocodone (From VICODIN) Adverse Reaction (Unknown, Verified 07/17/24 15:38) HIGH BP Medication List - Last Reconciled 08/30/24 by Win Cummings MD albuterol sulfate 2.5 mg inhalation Q8H PRN albuterol-budesonide 90-80 mcg/actuation 2 inhalations inhalation TID PRN ammonium lactate 12% (AmLactin) 1 appl topical BID capsaicin 0.025% 1 appl topical BEDTIME cholecalciferol (vitamin D3) (Vitamin D3) 50 mcg PO DAILY diclofenac sodium 1% 4 grams topical DAILY PRN docusate sodium 100 mg PO DAILY PRN famotidine 20 mg PO DAILY hydrocortisone 2.5% 1 appl topical BID levothyroxine 137 mcg PO DAILY Magic Mouthwash Diphen/Nystat/Antacid 1:1:1 10 mL PO BID PRN nortriptyline 100 mg PO BEDTIME ondansetron 8 mg PO Q8H PRN oxycodone 5 mg PO Q6H PRN pantoprazole 20 mg PO QAM PRN quetiapine 100 mg PO BEDTIME PRN sertraline 100 mg PO DAILY sumatriptan succinate 50 mg PO DAILY PRN venlafaxine 37.5 mg PO BID HPI Comments Details: 59 years old woman with depression and chronic migraine without aura type of headaches. In January 2024 she was diagnosed with breast cancer and was going through treatment including chemotherapy. She was not having too many headaches at this time. COUNT INCLUDES [facility] Medical History (Updated 08/30/24 @ 15:49 by Win Cummings MD) Insomnia Migraine Arthritis Thrombocytopenia Anxiety Depression Numbness History of chemotherapy Asthma Anemia GERD (gastroesophageal reflux disease) Fatty liver Invasive ductal carcinoma of right breast Type 2 diabetes mellitus Vitamin D deficiency Multinodular thyroid Hypothyroidism Surgical History History of lobectomy of thyroid Hx of colonoscopy History of esophagogastroduodenoscopy (EGD) History of carpal tunnel surgery of left wrist Tubal ligation status Hx of foot surgery Hx of epicondylectomy Hx of cholecystectomy Hx of thyroidectomy Hx of appendectomy Family History Father No problems noted. 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 HEENT:?No headache, vision changes, hearing loss, nasal congestion, sore throat. Neurological:?No dizziness, syncope, seizures, numbness, tingling, weakness, tremors, memory loss. Psychiatric:?No anxiety, depression, mood swings, sleep disturbance, or hallucinations. Endocrine:?No heat/cold intolerance, polydipsia, polyuria, or hair/skin changes. Hematologic/Lymphatic:?No easy bruising, bleeding, or lymphadenopathy. Integumentary (Skin):?No rash, lesions, itching, or color changes. ? Physical Exam Neuro Other: Mental Status: Alert and oriented to person, place, and time. Normal attention. Normal spontaneous speech, fluency, and comprehension. No obvious issues with mood and memory. Affect is appropriate. Cranial Nerves: CN II: Visual chris full to confrontation, visual acuity intact. CN III, IV, : Pupils equal, round, reactive to light and accommodation. Extraocular movements are normal. CN V: Facial sensation is normal. CN VII: Facial movements symmetrical. CN VIII: Hearing intact to bedside conversation is normal. CN IX, X: Palate elevates symmetrically. CN XI: Shoulder shrug and head turn symmetrical. CN XII: Tongue midline without atrophy or fasciculations. Extrapyramidal: Full facial expressions and blinking. No rigidity. Movements are appropriate with no tremor or abnormality. Speech: Normal; no dysarthria or tremor. Assessment & Plan Assessment & Plan (1) Migraine: Comment: Meds tried; Nortryptiline Brain CT w/o cont at [facility] In 2010: WNL MRA brain at [facility] In in 2010: WNL. Code(s): G43.909 - Migraine, unspecified, not intractable, without status migrainosus Category: Medical Qualifiers: Migraine type: migraine (< 15 days per month) without aura Status migrainosus presence: without status migrainosus Intractability: not intractable Qualified Code(s): G43.009 - Migraine without aura, not intractable, without status migrainosus Plan Impression: Migraine, stable with nortryptiline Rec: Nortryptiline 100mg at night, which she has been taking for long time and it has been working w/o problems. Medications: New nortriptyline 100 mg (2 x 50 mg) PO BEDTIME 180 caps 1RF Coding Level of Care Code Tele Est Pt Level 4 (69810) Diagnoses Migraine without aura and without status migrainosus, not intractable G43.009 Migraine type: migraine (< 15 days per month) without aura Status migrainosus presence: without status migrainosus Intractability: not intractable
== END 2024-08-30 15:52 | disposition home or self-care (01) ==
LOC: HO.HSM 15:12
PROVIDERS: PCP Internal Medicine; Referring Provider Internal Medicine; Visit Provider Psychiatry & Neurology Neurology
DX: G43.009 Migraine without aura, not intractable, without status migrainosus (principal)
CPT/HCPCS: 99214

== ENCOUNTER → 2024-08-30 15:12 | Outpatient (BNVA) | payer OTHER, SELFPAY | PROVIDERS: PCP Internal Medicine; Referring Provider Internal Medicine; Visit Provider Psychiatry & Neurology Neurology | DX: G43.709 Chronic migraine without aura, not intractable, without status migrainosus (principal) | CPT/HCPCS: 99212 ==

== ENCOUNTER 2024-09-05 09:04 | Outpatient (AMB) | payer OTHER, SELFPAY ==
--- NOTE | 2024-09-05 09:06 | A.OFFVIS_ITS ---
Vital Signs 09/05/24 09:12 Height 5 ft Weight 135 lb BMI 26.4 BP 123/58 L Blood Pressure Location Lt brachial Position Sitting Pulse 84 Intake Visit Reasons: S/P Rt. brst lumpectomy w/localizer & SN bx Intake Note: Patient here s/p Rt br lumpectomy w/localizer and SN bx on . Patient c/o: tenderness on both axillas from procedure. Asp Net Developer Required: No Accompanied by: IRRIGATION DISTRICT MANAGER Elliott Allergies acetaminophen (Vicodin) Allergy (Unknown, Verified 09/05/24 09:12) unk Penicillins Adverse Reaction (Mild, Verified 09/05/24 09:12) HYPERTENSION hydrocodone (From VICODIN) Adverse Reaction (Unknown, Verified 09/05/24 09:12) HIGH BP HPI HPI S/P Rt. brst lumpectomy w/localizer & SN bx: Details: In-house aerial photograph interpreter used for this evaluation. Patient overall doing well, only complaint is pain in the right axilla. Denies fever or chills. Denies discharge from incision site [facility] Medical History (Updated 09/03/24 @ 11:27 by Rhona Badillo MD) Insomnia Migraine Arthritis Thrombocytopenia Anxiety Depression Numbness History of chemotherapy Asthma Anemia GERD (gastroesophageal reflux disease) Fatty liver Invasive ductal carcinoma of right breast Type 2 diabetes mellitus Vitamin D deficiency Multinodular thyroid Hypothyroidism Surgical History (Updated 09/05/24 @ 09:48 by Isaac Herndon PA-C) History of lobectomy of thyroid Hx of colonoscopy History of esophagogastroduodenoscopy (EGD) History of carpal tunnel surgery of left wrist Tubal ligation status Hx of foot surgery Hx of epicondylectomy Hx of cholecystectomy Hx of thyroidectomy Hx of appendectomy Family History Father No problems noted. 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 Right axilla incision site is tender. Right and left breast incision sites are nontender Neuro General: patient oriented x3 Assessment & Plan Assessment & Plan (1) Papilloma of left breast: Code(s): D24.2 - Benign neoplasm of left breast Category: Medical (2) Breast mass, right: Code(s): N63.10 - Unspecified lump in the right breast, unspecified quadrant Category: Medical Qualifiers: Breast mass location: upper outer quadrant Qualified Code(s): N63.11 - Unspecified lump in the right breast, upper outer quadrant (3) Status post lumpectomy of both breasts: Code(s): Z98.890 - Other specified postprocedural states Category: Medical (4) Invasive ductal carcinoma of right breast: Code(s): C50.911 - Malignant neoplasm of unspecified site of right female breast Category: Medical Plan 59 year old female s/p left breast lumpectomy, right breast lumpectomy, right axillary lymph node excision on 08/27/2024 presenting for 2 week follow-up. Aida ent overall doing well experiencing tenderness in the right axilla. Otherwise has no complaints. Denies discharge redness at the incision sites. Denying fever or chills. Steri-Strips remain in place her removed in the office patient tolerated this well. On exam the incision sites appear to be healing well, there was no erythema or discharge as also unable to palpate any fluid collection. The right and left lumpectomy sites are nontender. We reviewed pathology, right breast, no residual invasive carcinoma. Left breast breast parenchyma with small focus of residual intraductal papilloma, focal atypical ductal hyperplasia, dilated ducts with duct ectasia, moderate usual ductal hyperplasia and previous biopsy site changes. Lymph nodes 1 through 5 all negative for tumor. Patient will follow up with Dr. Marcos in 2 weeks for 1 month postop, she can return sooner with any concerns Coding Level of Care Code Global (36070) Diagnoses Papilloma of left breast D24.2 Mass of upper outer quadrant of right breast N63.11 Breast mass location: upper outer quadrant Status post lumpectomy of both breasts Z98.890 Invasive ductal carcinoma of right breast C50.911
[2024-09-05 09:12] VITALS: BP 123/58; PULSE 84; BMI 26.4
--- OUTSIDE RECORDS SUMMARY | 2024-09-05 09:31 | XMS_ITS | Clinical Summary ---
Author Organization [facility] Address [address] [place] [address] Phone Care Team Providers Care Graduate Advisor Name Role Phone Unknown, Unknown Primary Care Provider Isauro gaines Social History Tobacco Use Types Packs/Day Years Used Date Smoking Tobacco: Never Assessed Education Answer Date Recorded Are you interested in more education? Not on emmanuel e 09/03/2024 Are you concerned about learning? Not on file 09/03/2024 No 09/03/2024 No 09/03/2024 Digital Access Answer Date Recorded No 09/03/2024 No 09/03/2024 Reliable internet access at home? Not on file 09/03/2024 Device with a working camera? Not on file Comments Unknown Sex and Gender Information Value Date Recorded Sex Assigned at Not on file Legal Sex Female 3:00 PM EST Gender Identity Not on file Sexual Orientation Not on file Plan of Treatment Upcoming Encounters Date Type Department Care Team (Late st Contact Info) Description 09/28/2024 1:00 PM EDT Office Visit [facility] Rad Onc [address] [place] [phone] Liz Mata MD [address] [place] [address] [email or web address] Health Maintenance Due Date Last Done Comments Adult Td,Tdap Booster 1965 LIPID PANEL 1965 DEPRESSION SCREENING 1977 SMOKING Hx and SMOKELESS TOB ACCO SCREENING 1978 HEPATITIS C SCREENING 06/02/1983 HIV ONE-TIME SCREENING (18-6 5 YEARS) 06/02/1983 PAP SMEAR 1986 MAMMOGRAM 2005 COLOGUARD 2010 COLONOSCOPY 2010 COLORECTAL CANCER SCREENING 2010 FIT TEST 2010 FOBT 2010 SIGMOIDOSCOPY 2010 VIRTUAL COLONOSCOPY 2010 PNEUMOCOCCAL VACCINES (50+ y ears) (1 of 1 - PCV) 06/02/2015 ZOSTER VACCINES (1 of 2) 06/02/2015 COVID-19 VACCINE (1 - 2023-2 5 season) 2023 HEPATITIS A VACCINES Aged Out No long er eligible based on patient's age to complete this topic HIB VACCINES Aged Out No longer eligi ble based on patient's age to complete this topic MENINGOCOCCAL VACCINES (ACWY) Aged Out No longer eligible based on patient's age to complete this topic MENINGOCOCCAL VACCINES (B) Aged Out N o longer eligible based on patient's age to complete this topic Medical Devices Not on file Insurance MEDICARE REPLACEMENT ERICA ALDANA [id number] MEDICARE REPLACEMENT ERICA ALDANA [id number] Care Teams Graduate Advisor Relationship Specialty Start Date End Date Unknown, Unknown, PCP - General 03/18/17 Additional Source Comments The information contained in this document represents components of the legal health record. It is not the complete legal health record.[facility]
--- OUTSIDE RECORDS SUMMARY | 2024-09-05 09:31 | XMS_ITS | Encounter Summary ---
Author Organization [employer] Address [address] [facility] [address] [place] [address] Care Team Providers Care Residential Treatment Specialist Name Role Phone Giana Isbell MD Primary Care Provider [phone] Encounter Details Date Type Department Care Team ([facility] st Contact Info) Description 07/19/2024 Orders Only [facility] CH[facility] MED & PEDS [address] [place] [address] Giana Isbell MD [address] [place] [address] Migraine with aura and without status migrainosus, [...] as of this encounter Care Teams Residential Treatment Specialist Relationship Specialty Start Date End Date Giana Isbell MD [address] [place] [phone] PCP - General Internal Medicine 09/07/18 documented as of this encounter
== END 2024-09-05 09:22 | disposition home or self-care (01) ==
LOC: HO.HGS 09:04
PROVIDERS: PCP Internal Medicine
DX: D24.2 Benign neoplasm of left breast (principal); N63.11 Unspecified lump in the right breast, upper outer quadrant; Z98.890 Other specified postprocedural states; C50.911 Malignant neoplasm of unspecified site of right female breast
CPT/HCPCS: 99024

== ENCOUNTER → 2024-09-05 09:04 | Outpatient (BNVA) | payer OTHER, SELFPAY | PROVIDERS: PCP Internal Medicine | DX: Z71.2 Person consulting for explanation of examination or test findings (principal); D24.2 Benign neoplasm of left breast; N63.11 Unspecified lump in the right breast, upper outer quadrant; Z98.890 Other specified postprocedural states | CPT/HCPCS: 99212 ==

== ENCOUNTER 2024-09-25 09:45 | Outpatient (AMB) | payer OTHER, SELFPAY ==
--- NOTE | 2024-09-25 10:11 | A.OFFVIS_ITS ---
Vital Signs 09/25/24 10:16 Height 5 ft Weight 131 lb BMI 25.6 BP 101/61 Blood Pressure Location Rt brachial Position Sitting Pulse 95 Intake Visit Reasons: S/P Rt. brst lumpectomy w/localizer & SN bx Intake Note: Patient here s/p Rt breast lumpectomy w/localizer and SN bx. Patient c/o: rt breast incision site tender to touch, feels numb. No longer taking rx pain meds. Supervisor Alteration Workroom Required: Yes Supervisor Alteration Workroom Name: Sahil # [id number] Information Interpreted: clinical only Accompanied by: Self / Same As Patient Allergies acetaminophen (Vicodin) Allergy (Unknown, Verified 09/25/24 10:15) unk Penicillins Adverse Reaction (Mild, Verified 09/25/24 10:15) HYPERTENSION hydrocodone (From VICODIN) Adverse Reaction (Unknown, Verified 09/25/24 10:15) HIGH BP HPI HPI S/P Rt. brst lumpectomy w/localizer & SN bx: Details: 59-year-old female patient originally evaluated on 01/10/2024 for a right breast mass located in the 9 o'clock position noted on self-examination. An ultrasound- guided core biopsy performed on 01/18/2024 confirmed invasive ductal carcinoma, grade 3, ER/OK positive, HER2 Janki positive, Ki-67 high. She was evaluated by Dr. Badillo who recommended neoadjuvant chemotherapy. She underwent 6 cycles of Taxotere, carboplatin, and Herceptin. Follow-up imaging indicated a marked improvement in the tumor size. She underwent bilateral breast lumpectomy with localizer, right axillary sentinel node biopsy on 08/27/24. Pathology of the right breast lumpectomy revealed no residual invasive carcinoma, tumor bed identified with fibrosis and macrophages, 5 lymph nodes negative for tumor. Left breast small focus of residual intraductal papilloma, focal atypical ductal hyperplasia. She presents today for a second follow up visit. She reports doing overall well. She has no pain at the incision sites but reports some numbness at the right breast incision site and mild persistent discomfort of the axilla. She is eating well. She denies fevers, chills, redness of incisions. She is followed by Dr. Badillo and sees her again next week and was referred to Angela Andrade for radiation recommendations. [facility] Medical History (Updated 09/03/24 @ 11:27 by Rhona Badillo MD) Insomnia Migraine Arthritis Thrombocytopenia Anxiety Depression Numbness History of chemotherapy Asthma Anemia GERD (gastroesophageal reflux disease) Fatty liver Invasive ductal carcinoma of right breast Type 2 diabetes mellitus Vitamin D deficiency Multinodular thyroid Hypothyroidism Surgical History (Updated 09/05/24 @ 09:48 by Isaac Herndon PA-C) History of lobectomy of thyroid Hx of colonoscopy History of esophagogastroduodenoscopy (EGD) History of carpal tunnel surgery of left wrist Tubal ligation status Hx of foot surgery Hx of epicondylectomy Hx of cholecystectomy Hx of thyroidectomy Hx of appendectomy Family History Father No problems noted. 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 Gender identity: Female Female Reproductive History Menstrual Age of Menarche: 15 Review of Systems Const All systems reviewed & are unremarkable except as noted in HPI and below Physical Exam Vital Signs: Last Vital Signs Pulse 95 09/25/24 10:16 BP 101/61 09/25/24 10:16 BMI result Body Mass Index 25.6 Const General: comfortable, no acute distress and alert Orientation/consciousness: patient oriented x3 Chest Other: left breast subareolar incision well healed, no erythema, edema or induration; no palpable masses right breast incision well healed, no erythema, edema or induration; no palpable masses right axilla incision well healed, no erythema, very mild induration, mildly tender to palpation, no palpable nodes Resp Effort & Inspection: normal respiratory effort Skin General skin exam: no rashes or lesions noted Neuro General: patient oriented x3 Assessment & Plan Assessment & Plan (1) Invasive ductal carcinoma of right breast: Code(s): C50.911 - Malignant neoplasm of unspecified site of right female breast Category: Medical Plan 59 year old female with invasive ductal carcinoma of the right breast who underwent neoadjuvant chemo and is s/p bilateral breast lumpectomy with localizer, right axillary sentinel node biopsy on 08/27/24. She is doing well post operatively. Her incision sites are well healed, no palpable breast masses on exam. She continues to follow with Dr. Badillo and was referred to Angela lopez for radiation recommendations. She can follow up with Dr. Marcos in 3 months or sooner if she develops concerns. Patient comfortable with plan, all questions answered. Coding Level of Care Code Global (81305) Diagnoses Invasive ductal carcinoma of right breast C50.911
[2024-09-25 10:16] VITALS: BP 101/61; PULSE 95; BMI 25.6
--- OUTSIDE RECORDS SUMMARY | 2024-09-25 10:51 | XMS_ITS | Clinical Summary ---
Author Organization [facility] Address [address] [place] [address] Drive [address] [place] [phone] Phone Care Team Providers Care Community Reinvestment Act Officer Name Role Phone Unknown, Unknown Primary Care Provider Isauro gaines Encounters Date Type Department Care Team Description 09/10/2024 Ancillary Orders [facility] [address] [place] [address] Unknown, Liz, 09/10/2024 Ancillary Orders [facility] [address] [place] [address] Unknown, Unknown, 09/10/2024 Ancillary Orders [facility] [address] [place] [address] Unknown, Liz, 09/10/2024 Ancillary Orders [facility]Outside Imaging [address] [place] [address] Unknown, Liz, 09/10/2024 Ancillary Orders [facility]Outside Imaging [address] [place] [address] Unknown, Liz, 09/10/2024 Ancillary Orders [facility]Outside Imaging [address] [place] [address] Unknown, Liz, 09/10/2024 Ancillary Orders [facility]Outside Imaging [address] [place] [address] Unknown, Liz, 09/10/2024 Ancillary Orders [facility] [address] [place] [address] Unknown, MD Liz 09/10/2024 Ancillary Orders [facility] [address] [place] [address] UnknownLiz MD 09/10/2024 Ancillary Orders [facility] [address] [place] [address] Liz Hill MD 09/10/2024 Ancillary Orders [facility] Imaging [address] [place] [address] Liz Hill MD 08/27/2024 12:15 AM EDT - 08/27/2024 11:59 PM EDT Hospital Encounter [facility] [address] [place] [address] Unknown, Unknown, Discharge Disposition: Home or Self Care 08/27/2024 12:10 AM EDT - 08/27/2024 12:14 AM EDT Hospital Encounter [facility] [address] [place] [address] Unknown, Unknown, Discharge Disposition: Home or Self Care 08/27/2024 12:05 AM EDT - 08/27/2024 12:09 AM EDT Hospital Encounter [facility] [address] [place] [address] Unknown, Unknown, Discharge Disposition: Home or Self Care 08/27/2024 - 08/27/2024 12:04 AM EDT Hospital Encounter [facility] [address] [place] [address] Unknown, Unknown, Discharge Disposition: Home or Self Care 08/22/2024 12:10 AM EDT - 08/22/2024 11:59 PM EDT Hospital Encounter [facility] [address] [place] [address] Unknown, Unknown, Discharge Disposition: Home or Self Care 08/22/2024 12:05 AM EDT - 08/22/2024 12:09 AM EDT Hospital Encounter [facility] [address] [place] [address] Unknown, Unknown, Discharge Disposition: Home or Self Care 08/22/2024 - 08/22/2024 12:04 AM EDT Hospital Encounter [facility]Outside [facility] [address] [place] [address] Unknown, Unknown, Discharge Disposition: Home or Self Care from Last 3 Months Social History Tobacco Use Types Packs/Day Years [...] Description 09/28/2024 1:00 PM EDT Office Visit [facility] [place] [facility] Rad Onc [address] [place] [address] Liz Mata MD [address] [place] [address] [email or web address] Shimon Acuña [address] [place] [phone] [email or web address] Health Maintenance Due Date Last Done Comments DEPRESSION SCREENING 1977 SMOKING Hx and SMOKELESS TOBACCO SCREENING 1978 HEPATITIS C SCREENING 06/02/1983 HIV ONE-TIME SCREENING (18-65 YEARS) 06/02/1983 PAP SMEAR 1986 COLOGUARD 2010 COLONOSCOPY 2010 COLORECTAL CANCER SCREENING 2010 FIT TEST 2010 FOBT 2010 SIGMOIDOSCOPY 2010 VIRTUAL COLONOSCOPY 2010 PNEUMOCOCCAL VACCINES (50+ years) (1 of 1 - PCV) 06/02/2015 ZOSTER VACCINES (1 of 2) 06/02/2015 COVID-19 VACCINE (1 - season) 2023 LIPID PANEL 08/04/2026 08/04/2021 MAMMOGRAM 08/22/2026 08/22/2024, 08/07, 02/22/2024, Additional history exists Adult Td,Tdap Booster 09/22/2031 09/21/2021 HEPATITIS A VACCINES Aged Out No long [...] this topic Medical Devices Not on file Procedures Procedure Name Priority Date/Time Associated Diagnosis Comments NM OTHER OUTSIDE (NO INTERPRETATION) Routine 08/27/2024 12:15 AM EDT BI MAMMOGRAM SPECIMENT OUTSIDE (NO INTERPRETATION) Routine 08/27/2024 12:10 AM EDT BI MAMMOGRAM SPECIMENT OUTSIDE (NO INTERPRETATION) Routine 08/27/2024 12:05 AM EDT BI MAMMOGRAM SPECIMENT OUTSIDE (NO INTERPRETATION) Routine 08/27/2024 12:00 AM EDT BI US BREAST OUTSIDE (NO INTERPRETATION) Routine 08/22/2024 12:10 AM EDT BI MAMMOGRAM OUTSIDE (NO INTERPRETATION) Routine 08/22/2024 12:05 AM EDT BI MAMMOGRAM OUTSIDE (NO INTERPRETATION) Routine 08/22/2024 12:00 AM EDT from Last 3 Months Results * NM Other Outside (No Interpretation) (08/27/2024 12:15 AM EDT) Narrative SYSTEMGENERATED, DOCUMENTATION - 09/10/2024 11:00 AM EDT This study is for PACS storage only and not for interpretation. us Unknown Unknown MD HERNANDEZ OUTSIDE IMAGING W/OUT INT ERPRETATION Final Result * Mammogram Specimen Outside (No Interpretation) (08/27/2024 12:10 AM EDT) Narrative SYSTEMGENERATED, DOCUMENTATION - 09/10/2024 10:59 AM EDT This study is for PACS storage only and not for interpretation. us Unknown Unknown MD IMG OUTSIDE IMAGING W/OUT INT ERPRETATION Final Result * Mammogram Specimen Outside (No Interpretation) (08/27/2024 12:05 AM EDT) Narrative SYSTEMGENERATED, DOCUMENTATION - 09/10/2024 10:59 AM EDT This study is for PACS storage only and not for interpretation. us Unknown Unknown MD IMG OUTSIDE IMAGING W/OUT INT ERPRETATION Final Result * Mammogram Specimen Outside (No Interpretation) (08/27/2024 12:00 AM EDT) Narrative SYSTEMGENERATED, DOCUMENTATION - 09/10/2024 10:59 AM EDT This study is for PACS storage only and not for interpretation. us Unknown Unknown MD IMG OUTSIDE IMAGING W/OUT INT ERPRETATION Final Result * US Breast Outside (No Interpretation) (08/22/2024 12:10 AM EDT) Narrative SYSTEMGENERATED, DOCUMENTATION - 09/10/2024 11:01 AM EDT This study is for PACS storage only and not for interpretation. us Unknown Unknown MD IMG OUTSIDE IMAGING W/OUT INT ERPRETATION Final Result * Mammogram Outside (No Interpretation) (08/22/2024 12:05 AM EDT) Narrative SYSTEMGENERATED, DOCUMENTATION - 09/10/2024 11:00 AM EDT This study is for PACS storage only and not for interpretation. us Unknown Unknown MD IMG OUTSIDE IMAGING W/OUT INT ERPRETATION Final Result * Mammogram Outside (No Interpretation) (08/22/2024 12:00 AM EDT) Narrative SYSTEMGENERATED, DOCUMENTATION - 09/10/2024 11:00 AM EDT This study is for PACS storage only and not for interpretation. us Unknown Unknown MD HERNANDEZ OUTSIDE IMAGING W/OUT INT ERPRETATION Final Result from Last [address] [place] [address] MEDICARE REPLACEMENT Care Teams Community Reinvestment Act Officer Relationship Specialty Start Date End Date Unknown, Unknown, PCP - General 03/18/17 Additional Source Comments The information contained in this document represents components of the legal health record. It is not the complete legal health record.[facility]
--- OUTSIDE RECORDS SUMMARY | 2024-09-25 10:51 | XMS_ITS | Encounter Summary ---
Author Organization [employer] Address [address] [facility] 7t [place] [address] Care Team Providers Care Pig Conveyor Operator Name Role Phone Giana Isbell MD Primary Care Provider [phone] Encounter Details Date Type Department Care Team ([facility] st Contact Info) Description 07/19/[address] [facility] CHC MED & PEDS [address] [place] [address] Giana Isbell MD [address] [place] [address] Migraine with aura and without status migrainosus, [...] documented as of this encounter Care Teams Pig Conveyor Operator Relationship Specialty Start Date End Date Giana Isbell MD [address] [place] [address] PCP - General Internal Medicine 09/07/18 documented as of this encounter
== END 2024-09-25 10:30 | disposition home or self-care (01) ==
LOC: HO.HGS 09:45
PROVIDERS: PCP Internal Medicine; Visit Provider Physician Assistant Surgical
DX: C50.911 Malignant neoplasm of unspecified site of right female breast (principal)
CPT/HCPCS: 99024

== ENCOUNTER → 2024-09-25 09:45 | Outpatient (BNVA) | payer OTHER, SELFPAY | PROVIDERS: PCP Internal Medicine; Visit Provider Physician Assistant Surgical | DX: Z98.890 Other specified postprocedural states (principal); C50.911 Malignant neoplasm of unspecified site of right female breast | CPT/HCPCS: 99212 ==

== ENCOUNTER 2024-10-24 13:07 | Outpatient (REF) | payer OTHER, SELFPAY ==
--- NOTE | ~2024-10-24 | XR_ITS ---
EXAMINATION: XR LUMBAR SPINE 2-3 VIEWS HISTORY: Low back pain x 2 weeks COMPARISON: Comparison is made with the prior examination dated 04/21/2022. FINDINGS: AP, lateral, and coned down views of the lumbar spine are submitted. Osseous mineralization is normal. Five nonrib-bearing lumbar vertebral bodies are identified, maintaining normal height without evidence of fracture or spondylolisthesis. There is slight leftward curvature. The intervertebral disc spaces are preserved. The posterior elements are intact. The visualized paraspinal soft tissues are unremarkable. XR/XR lumbar spine 2-3V IMPRESSION: Slight leftward curvature. Otherwise unremarkable examination of the lumbar spine. Electronically signed by: Leonardo Larose MD 10/24/2024 01:42 PM EDT
--- OUTSIDE RECORDS SUMMARY | 2024-10-24 16:44 | XMS_ITS | Encounter Summary ---
Author Organization [employer] Address [address] [facility] [address] [place] [address] Care Team Providers Care Box Car Checker Name Role Phone Giana Isbell MD Primary Care Provider [phone] Encounter Details Date Type Department Care Team ([facility] st Contact Info) Description 02/06/2024 Orders Only [facility] CHC MED & PEDS [address] [place] [address] Giana Isbell MD [address] [place] [address] Acquired hypothyroidism (Primary Dx) Social History Tobacco Use Types Packs/Day Years Used Date Smoking Tobacco: Never Passive Smoke Exposure: Never Smokeless Tobacco: Never Depression Answer Date Recorded Patient Health Questionnaire-9 Score 7 07/29/2022 Housing Stability Answer Date Recorded What is your housing situation today? I have rob alxeander 11/22/[address] you li [...] as of this encounter Plan of Treatment Scheduled Orders Name Type Priority Associated Diagnoses [...] AM EST Narrative 02/10/2024 3:39 PM EST [place] [address] Magnetic Resonance Report Signed with Fani Patient: Tory Bush MR#: [id number] : 1965 Acct:[id number] Age/Sex: 58 / F ADM Date: 02/06/24 Loc: HO.MRI Attending Dr: Pardeep Marcos MD Ordering Physician: Pardeep Marcos MD Date of Service: 02/06/24 Procedure(s): MR breast BI wo/w con Accession Number(s): [id number] cc: Giana Isbell MD; Pardeep Marcos MD [...] DO Addendum Signed By: <Electronically signed by Carissa Raza DO in OV> 02/13/24 1035 Addendum Cosigned By: [...] 02/10/24 1536 DD/ 0933 TD/TT: 02/06/24 1016 Vocational Education Teacher: Procedure Note Donotuseinterpreter, Image - 02/13/[address] [address] Magnetic Resonance Report Signed with Addenda Patient: Pat Bush#: [id number] : 1965Acct:[id number] Age/Sex: 58 / FADM Date: 02/06/24 Loc: HO.MRI Attending Dr: Pardeep Marcos MD Ordering Physician: Pardeep Marcos MD Date of Service: 02/06/24 Procedure(s): MR breast BI wo/w con Accession Number(s): [id number] cc: Giana Isbell MD; Pardeep Marcos MD [...] 02/10/24 1536 DD/ 0933 TD/TT: 02/06/24 1016 Vocational Education Teacher: [facility] External Provider IMG MRI PROCEDURES Edited Result - Final documented in this encounter Visit Diagnoses Diagnosis Acquired hypothyroidism- Primary Unspecified hypothyroidism documented in this encounter Additional Health Concerns Assessment Noted Time PHQ-9 Depression Total Score: 7 07/30/19 23 10:13 AM EDT documented as of this encounter Care Teams Box Car Checker Relationship Specialty Start Date End Date Giana Isbell MD [address] [place] [phone] PCP - General Internal Medicine 09/07/18 documented as of this encounter
--- OUTSIDE RECORDS SUMMARY | 2024-10-24 16:44 | XMS_ITS | Encounter Summary ---
Author Organization [employer] Address [address] [facility] 7[address] [place] [address] Care Team Providers Care Entry Level Staff Accountant Name Role Phone Giana Isbell MD Primary Care Provider [phone] Reason for Visit * Reason Comments Med Refill Encounter Details Date Type Department Care Team ([facility] st Contact Info) Description 07/20/2024 Refill [facility] CHC MED & PEDS [address] [place] [address] Giana Isbell MD [address] [place] [address] Social History Tobacco Use Types Packs/Day Years [...] documented as of this encounter Care Teams Entry Level Staff Accountant Relationship Specialty Start Date End Date Giana Isbell MD [address] [place] [address] PCP - General Internal Medicine 09/07/18 documented as of this encounter
--- OUTSIDE RECORDS SUMMARY | 2024-10-24 16:44 | XMS_ITS | Encounter Summary ---
Author Organization [employer] Address [address] [facility] 7[address] [place] [address] Care Team Providers Care Aircraft Tool Maker Name Role Phone Giana Isbell MD Primary Care Provider [phone] Encounter Details Date Type Department Care Team ([facility] st Contact Info) Description 07/19/2024 Orders Only [facility] CHC MED & PEDS [address] [place] [address] Giana Isbell MD [address] [place] [address] Migraine with aura and without status migrainosus, [...] documented as of this encounter Care Teams Aircraft Tool Maker Relationship Specialty Start Date End Date Giana Isbell MD [address] [place] [address] PCP - General Internal Medicine 09/07/18 documented as of this encounter
--- OUTSIDE RECORDS SUMMARY | 2024-10-24 16:44 | XMS_ITS | Encounter Summary ---
Author Organization [employer] Address [address] [facility] 7t [place] [address] Care Team Providers Care Music Adapter Name Role Phone Giana Isbell MD Primary Care Provider [phone] Encounter Details Date Type Department Care Team ([facility] Contact Info) Description 10/24/2024 Orders Only [facility] External Provider, [facility] Social History Tobacco Use Types Packs/Day [...] Name Priority Date/Time Associated Diagnosis Comments XR LUMBAR SPINE 2-3 VIEWS Routine 10/24/2024 1:31 PM EDT documented in this encounter Results * XR Lumbar Spine 2-3 Views (10/24/2024 1:31 PM EDT) Anatomical Region Laterality Modality Spine, L-spine Radiographic Laura ging 10/24/2024 1:31 PM EDT Narrative 10/24/2024 1:44 PM EDT [place] [address] XRay Report Signed Patient: Tory Bush MR#: [id number] : 1965 Acct:[id number] Age/Sex: 59 / F ADM Date: 10/24/24 Loc: HO.[facility] Attending Dr: Nicci Wilkins NP Ordering Physician: Nicci Wilkins NP Date of Service: 10/24/24 Procedure(s): XR lumbar spine 2-3V Accession Number(s): [id number] cc: Giana Isbell MD; Nicci Wilkins NP Reason for Exam: Low back pain x 2 weeks EXAMINATION: XR LUMBAR SPINE 2-3 VIEWS HISTORY: Low back pain x 2 weeks COMPARISON: Comparison is made with the prior examination dated 04/21/2022. FINDINGS: AP, lateral, and coned down views of the lumbar spine are submitted. Osseous mineralization is normal. Five nonrib-bearing lumbar vertebral bodies are identified, maintaining normal height without evidence of fracture or spondylolisthesis. There is slight leftward curvature. The intervertebral disc spaces are preserved. The posterior elements are intact. The visualized paraspinal soft tissues are unremarkable. XR/XR lumbar spine 2-3V IMPRESSION: Slight leftward curvature. Otherwise unremarkable examination of the lumbar spine. Electronically signed by: Leonardo Larose MD 10/24/2024 01:42 PM EDT RP Dictated By: Leonardo Larose MD Signed By: <Electronically signed by Leonardo Larose MD in OV> 10/24/24 1342 DD/ 1331 TD/TT: 10/24/24 1335 Airport Manager: Procedure Note Donotuseinterpreter, Image - 10/24/2024 [place] [address] XRay Report Signed Patient: Pat Bush#: [id number] : 1965Acct:[id number] Age/Sex: 59 / FADM Date: 10/24/24 Loc: [facility] Attending Dr: Nicci Wilkins NP Ordering Physician: Nicci Wilkins NP Date of Service: 10/24/24 Procedure(s): XR lumbar spine 2-3V Accession Number(s): [id number] cc: Giana Isbell MD; Nicci Wilkins NP Reason for Exam: Low back pain x 2 weeks EXAMINATION: XR LUMBAR SPINE 2-3 VIEWS HISTORY: Low back pain x 2 weeks COMPARISON: Comparison is made with the prior examination dated 04/21/2022. FINDINGS: AP, lateral, and coned down views of the lumbar spine are submitted. Osseous mineralization is normal. Five nonrib-bearing lumbar vertebral bodies are identified, maintaining normal height without evidence of fracture or spondylolisthesis. There is slight leftward curvature. The intervertebral disc spaces are preserved. The posterior elements are intact. The visualized paraspinal soft tissues are unremarkable. XR/XR lumbar spine 2-3V IMPRESSION: Slight leftward curvature. Otherwise unremarkable examination of the lumbar spine. Electronically signed by: Leonardo Larose MD 10/24/2024 01:42 PM EDT RP Dictated By: Leonardo Larose MD Signed By: <Electronically signed by Leonardo Larose MD in OV> 10/24/24 1342 DD/ 1331 TD/TT: 10/24/24 1335 Airport Manager: [facility] External Provider IMG XR PROCEDURES Edited Result - Final documented in this encounter Visit Diagnoses Not on filedocumented in this encounter Additional Health Concerns Assessment Noted Time PHQ-9 Depression Total Score: 24 025 9:26 AM EST documented as of this encounter Care Teams Music Adapter Relationship Specialty Start Date End Date Giana Isbell MD [address] [place] [address] PCP - General Internal Medicine 09/07/18 documented as of this encounter
--- OUTSIDE RECORDS SUMMARY | 2024-10-24 16:44 | XMS_ITS | Clinical Summary ---
Author Organization [facility] Address [address] [place] [address] Phone Care Team Providers Care Managing Jeweler Name Role Phone Unknown, Unknown Primary Care Provider Isauro gaines Allergies Active Allergy Reactions Criticality Noted Date Comments Hydrocodone-Acetaminophen 10/25/2023 Penicillins Hives,Rash,Unknown Low 02/19/2010 Medications ammonium lactate (LAC-HYDRIN) 12 % lotion 5 Active albuterol-budes onide (AIRSUPRA) 90-80 mcg/actuation inhaler Inhale 3 Inhalations into the lungs. Active calcium carbonate (OS-AURE) 1,250 mg (500 mg elemental) chewable tablet Take 1 tablet by mouth daily as needed. Active capsaicin (ZOSTRIX) 0.025 % cream APPLY 1 GRAM TOPICALLY TO AFFECTED AREA(S) TWICE DAILY DIRECTED 5 Active chlorhexidine (PERIDEX) 0.12 % solution Swish 15 mL morning and night for 1 minute. Spit, do not swallow. Do not eat or drink for 30 minutes following use. 4 Active cholecalciferol (VITAMIN D3) 2,000 unit capsule Take by mouth daily. 4 Active famotidine (PEPCID) 20 MG tablet Take 20 mg by mouth. 4 Active diclofenac sodium (VOLTAREN) 1 % Gel Apply 4 g topically 4 (four) times a day as needed. 4 Active ketotifen (ZADITOR) 0.025 % (0.035 %) ophthalmic solution Apply 1 drop to eye 2 (two) times a day as needed. 4 Active levothyroxine (SYNTHROID, LEVOTHROID) 137 MCG tablet Take 137 mcg by mouth daily. Active nortriptyline (PAMELOR) 50 MG capsule Take 2 capsules by mouth every morning. 5 Active nystatin-triamc inolone cream APPLY TO THE AFFECTED AREA(S) TOPICALLY THREE TIMES DAILY 5 Active oxyCODONE 5 MG immediate release tablet 5 Active QUEtiapine (SEROQUEL) 100 MG tablet Take 100 mg by mouth nightly at bedtime as needed. 5 Active sertraline (ZOLOFT) 100 MG tablet TAKE 1 AND 1/2 TABLETS BY MOUTH EVERY DAY IN THE MORNING 5 Active SUMAtriptan (IMITREX) 50 MG tablet TAKE 1 TABLET BY MOUTH DAILY NEEDED FOR MIGRAINE Active venlafaxine (EFFEXOR) 37.5 MG tablet Take 37.5 mg by mouth 2 (two) times a day. Active Encounters Date Type Department Care Team Description 09/28/2024 1:00 PM EDT Office Visit [facility] Rad Onc [address] [place] [address] Liz Mata MD Miranda-Leon, [place] Malignant neoplasm of upper-outer quadrant of right breast in female, estrogen receptor positive (Primary Dx) 09/10/2024 Ancillary Orders [facility] [address] [place] [address] Unknown, Liz, 09/10/2024 Ancillary Orders [facility] [address] [place] [address] Unknown, Unknown, 09/10/2024 Ancillary Orders [facility] [address] [place] [address] Unknown, Unknown, 09/10/2024 Ancillary Orders [facility] [address] [place] [address] Unknown, Liz, 09/10/2024 Ancillary Orders [facility] [address] [place] [address] Unknown, Unknown, 09/10/2024 Ancillary Orders [facility] [address] [place] [address] Unknown, Unknown, 09/10/2024 Ancillary Orders [facility] [address] [place] [address] Unknown, Liz, 09/10/2024 Ancillary Orders [facility] [address] [place] [address] Unknown, Unknown, 09/10/2024 Ancillary Orders [facility] [address] [place] [address] Unknown, Unknown, 09/10/2024 Ancillary Orders [facility] [address] [place] [address] Unknown, Liz, 09/10/2024 Ancillary Orders [facility] [address] [place] [address] Unknown, Liz, 08/27/2024 12:15 AM EDT - 08/27/2024 11:59 PM EDT Hospital Encounter [facility] [address] [place] [address] Unknown, Unknown, MD Discharge Disposition: Home or Self Care 08/27/2024 12:10 AM EDT - 08/27/2024 12:14 AM EDT Hospital Encounter [facility] [address] [place] [address] Unknown, Unknown, MD Discharge Disposition: Home or Self Care 08/27/2024 12:05 AM EDT - 08/27/2024 12:09 AM EDT Hospital Encounter [facility] [address] [place] [address] Unknown, Unknown, MD Discharge Disposition: Home or Self Care 08/27/2024 - 08/27/2024 12:04 AM EDT Hospital Encounter [facility] [address] [place] [address] Unknown, Unknown, MD Discharge Disposition: Home or Self Care 08/22/2024 12:10 AM EDT - 08/22/2024 11:59 PM EDT Hospital Encounter [facility] [address] [place] [address] Unknown, Unknown, MD Discharge Disposition: Home or Self Care 08/22/2024 12:05 AM EDT - 08/22/2024 12:09 AM EDT Hospital Encounter [facility] [address] [place] [address] Unknown, Unknown, MD Discharge Disposition: Home or Self Care 08/22/2024 - 08/22/2024 12:04 AM EDT Hospital Encounter [facility] [address] [place] [address] Unknown, Unknown, MD Discharge Disposition: Home or Self Care from Last 3 Months Family History Medical History Relation Comments Breast cancer Mother Ovarian cancer Sister 1 Ovarian cancer Sister 2 Relation Status Comments Mother Sister 1 Sister 2 Alive Social History Tobacco Use Types Packs/Day Years Used Date Smoking Tobacco: Never Smokeless Tobacco: Never Tobacco Cessation:Counseling Given: Not Answered Alcohol Use Standard Drinks/Week Comments Not Currently 0 (1 standard drink = 0.6 oz pur e alcohol) Education Answer Date Recorded Are you interested [...] on file Sexual Orientation Not on file Last Filed Vital Signs Vital Sign Reading Time Taken Comments Blood Pressure - - Pulse - - Temperature - - Respiratory Rate - - Oxygen Saturation - - Inhaled Oxygen Concentration - - Weight 59.5 kg (131 lb 1.6 oz) 09/28/2024 1:31 P M EDT Height 152.4 cm (5') 09/28/2024 1:31 PM EDT Body Mass Index 25.6 09/28/2024 1:31 PM EDT Plan of Treatment Upcoming Encounters Date Type Department Care Team (Late st Contact Info) Description 11/05/2024 12:00 PM EDT Office Visit [facility] Rad Onc [address] [place] [address] Liz Mata MD [address] [place] [address] [email or web address] 11/30/2024 3:30 PM EDT Office Visit [facility] Rad Onc [address] [place] [address] Liz Mata MD [address] [place] [address] 12/03/2024 3:20 PM EDT Treatment [facility] Rad Onc [address] [place] [address] 12/04/2024 2:20 PM EDT Treatment [facility] Rad Onc [address] [place] [address] 12/05/2024 2:20 PM EDT Treatment [facility] Rad Onc [address] [place] [address] 12/06/2024 2:20 PM EDT Treatment [facility] Rad Onc [address] [place] [address] 12/07/2024 2:20 PM EDT Treatment [facility] Rad Onc [address] [place] [address] 12/10/2024 2:20 PM EST Treatment [facility] Rad Onc [address] [place] [address] 12/11/2024 2:20 PM EST Treatment [facility] Rad Onc [address] [place] [address] 12/12/2024 2:20 PM EST Treatment [facility] Rad Onc [address] [place] [address] 12/13/2024 2:20 PM EST Treatment [facility] Rad Onc [address] [place] [address] 12/14/2024 2:20 PM EST Treatment [facility] Rad Onc [address] [place] [address] 12/17/2024 2:20 PM EST Treatment [facility] Rad Onc [address] [place] [address] 12/18/2024 2:20 PM EST Treatment [facility] Rad Onc [address] [place] [address] 12/19/2024 2:20 PM EST Treatment [facility] Rad Onc [address] [place] [address] 12/20/2024 2:20 PM EST Treatment [facility] Rad Onc [address] [place] [address] 12/21/2024 2:20 PM EST Treatment [facility] Rad Onc [address] [place] [address] 12/24/2024 2:20 PM EST Treatment [facility] Rad Onc [address] [place] [address] 12/25/2024 2:20 PM EST Treatment [facility] Rad Onc [address] [place] [address] 12/26/2024 2:20 PM EST Treatment [facility] Rad Onc [address] [place] [address] 12/27/2024 2:20 PM EST Treatment [facility] Rad Onc [address] [place] [address] 12/28/2024 2:20 PM EST Treatment [facility] Rad Onc [address] [place] [address] 12/31/2024 2:20 PM EST Treatment [facility] Rad Onc [address] [place] [address] 01/01/2025 2:20 PM EST Treatment [facility] Rad Onc [address] [place] [address] 01/02/2025 2:20 PM EST Treatment [facility] Rad Onc [address] [place] [address] 01/07/2025 2:20 PM EST Treatment [facility] Rad Onc [address] [place] [address] 01/08/2025 2:20 PM EST Treatment [facility] Rad Onc [address] [place] [address] Health Maintenance Due Date Last Done Comments TSH LEVEL 1965 DEPRESSION SCREENING 1977 HEPATITIS C SCREENING 06/02/1983 HIV ONE-TIME SCREENING (18-65 YEARS) 06/02/1983 PAP SMEAR 1986 SCREENING FOR DIABETES 2000 COLOGUARD 2010 COLONOSCOPY 2010 COLORECTAL CANCER SCREENING 2010 FIT TEST 2010 FOBT 2010 SIGMOIDOSCOPY 2010 VIRTUAL COLONOSCOPY 2010 PNEUMOCOCCAL VACCINES (50+ years) (1 of 1 - PCV) 06/02/2015 ZOSTER VACCINES (1 of 2) 06/02/2015 INFLUENZA VACCINE (#1) 2024 COVID-19 VACCINE ( - season) 2024 LIPID PANEL 08/04/2026 08/04/2021 MAMMOGRAM 08/22/2026 08/22/2024, 08/07, 02/22/2024, Additional history exists Adult Td,Tdap Booster 09/22/2031 09/21/2021 SMOKING STATUS SCREENING (Once After 26 Yrs) Completed 09/28/2024 HEPATITIS A VACCINES Aged Out No long [...] Final Result from Last [address] [facility] ONE CARE MEDICARE REPLACEMENT [facility] MEDIC[facility] REPLACEMENT Care Teams Managing Jeweler Relationship Specialty Start Date End Date Unknown, Unknown, PCP - General 03/18/17 Additional Source Comments The information contained in this document represents components of the legal health record. It is not the complete legal health record.[facility]
--- OUTSIDE RECORDS SUMMARY | 2024-10-24 16:44 | XMS_ITS | Encounter Summary ---
Author Organization [employer] Address [address] [facility] 7t [place] [address] Care Team Providers Care 4Th Grade Teacher Name Role Phone Giana Isbell MD Primary Care Provider [phone] Encounter Details Date Type Department Care Team ([facility] st Contact Info) Description 05/06/2023 Orders Only [facility] CHC MED & PEDS [address] [place] [address] Giana Isbell MD [address] [place] [address] Acquired hypothyroidism (Primary Dx) Social History Tobacco [...] Free T4 10.06(H) 0.32 - 4.0 uIU/mL [facility] Blood Venous blood specimen / Unknown 02/06/2024 10:45 AM EST 02/06/2024 10:45 AM EST Giana Isbell MD LAB BLOOD ORDERABLES Final Result [facility] [address] [place] [address] [phone] documented in this encounter Visit Diagnoses Diagnosis Acquired hypothyroidism- Primary Unspecified hypothyroidism documented in this encounter Additional Health Concerns Assessment Noted Time PHQ-9 Depression Total Score: 7 07/30/19 23 10:13 AM EDT documented as of this encounter Care Teams 4Th Grade Teacher Relationship Specialty Start Date End Date Giana Isbell MD [address] [place] [address] PCP - General Internal Medicine 09/07/18 documented as of this encounter
--- OUTSIDE RECORDS SUMMARY | 2024-10-24 16:44 | XMS_ITS | Encounter Summary ---
Author Organization [employer] Address [address] [facility] 7t [place] [address] Care Team Providers Care Middle School Volleyball Coach Name Role Phone Giana Isbell MD Primary Care Provider [phone] Reason for Visit * Reason Onset Date Comments Nurse Triage 08/02/2023 Encounter Details Date Type Department Care Team ([facility] Contact Info) Description 08/02/2023 Telephone [facility] CHC MED & PEDS [address] [place] [address] Giana Isbell MD [address] [place] [address] Nurse Triage Social History Tobacco Use Types [...] the past 12 months, has t he [employer], [employer], oil or water [facility] threatened to shut off services in your [...] 08/02/2023 10:38 AM EDT Triage call with [employer] [facility] [id number] Pt reports a small lump in the corner of lower left eye lid. Pt reports it is red, itchy, painful. This doesn't effect vision and Pt has never had this before. Pt has had this for more than a week and it is increasing in size. No available apts ion [facility] . Pt is advised to come to [facility] to be seen by provider and Pt [...] documented in this encounter Plan of Treatment Not on file documented as of this encounter Visit Diagnoses Not on filedocumented in this encounter Additional Health Concerns Assessment Noted Time PHQ-9 Depression Total Score: 7 07/30/19 23 10:13 AM EDT documented as of this encounter Care Teams Middle School Volleyball Coach Relationship Specialty Start Date End Date Giana Isbell MD [address] [place] [address] PCP - General Internal Medicine 09/07/18 documented as of this encounter
--- OUTSIDE RECORDS SUMMARY | 2024-10-24 16:45 | XMS_ITS | Encounter Summary ---
Author Organization [employer] Address [address] [facility] 7t [place] [address] Care Team Providers Care Outside Industrial Sales Representative Name Role Phone Giana Isbell MD Primary Care Provider [phone] Encounter Details Date Type Department Care Team ([facility] st Contact Info) Description 04/12/[address] [facility] MEDICINE [address] [place] [address] Giana Isbell MD [address] [place] [address] Bronchopneumonia (Primary Dx) Social History Tobacco Use [...] AM EDT Narrative 04/19/2024 9:48 AM EDT [place] [address] XRay Report Signed Patient: Tory Bush MR#: [id number] : 1965 Acct:[id number] Age/Sex: 58 / F ADM Date: 04/19/24 Loc: HO.LAB Attending Dr: Giana Isbell MD Ordering Physician: Giana Isbell MD Date of Service: 04/19/24 Procedure(s): XR chest 2V Accession Number(s): [id number] cc: Giana Isbell MD EXAMINATION: XR CHEST [...] OV> 04/19/24 0945 DD/ TD/TT: 04/19/24 0845 Service Parts Driver: Procedure Note Donotuseinterpreter, Image - 04/19/2024 [place] [address] XRay Report Signed Patient: Pat Bush#: [id number] : 1965Acct:[id number] Age/Sex: 58 / FADM Date: 04/19/24 Loc: HO.LAB Attending Dr: Giana Isbell MD Ordering Physician: Giana Isbell MD Date of Service: 04/19/24 Procedure(s): XR chest 2V Accession Number(s): [id number] cc: Giana Isbell MD EXAMINATION: XR CHEST [...] in OV> 04/19/2445 DD/ 4 TD/TT: 04/19/24844 Service Parts Driver: us Giana Isbell MD IMG XR PROCEDURES Edited Re sult - Final documented in this encounter Visit Diagnoses Diagnosis Bronchopneumonia- Primary Bronchopneumonia, organism unspecified documented in this encounter Additional Health Concerns Assessment Noted Time PHQ-9 Depression Total Score: 24 025 9:26 AM EST documented as of this encounter Care Teams Outside Industrial Sales Representative Relationship Specialty Start Date End Date Giana Isbell MD [address] [place] [address] PCP - General Internal Medicine 09/07/18 documented as of this encounter
--- OUTSIDE RECORDS SUMMARY | 2024-10-24 16:45 | XMS_ITS | Encounter Summary ---
Author Organization [employer] Address [address] [facility] 7t [place] [address] Care Team Providers Care Farm Boss Name Role Phone Giana Isbell MD Primary Care Provider [phone]- [phone] Encounter Details Date Type Department Care Team (Latest Contact Info) Description 02/16/2019 Abstract [facility] CONVERSIONS Dental, Provider, DDS Social History [...] on filedocumented in this encounter Care Teams Farm Boss Relationship Specialty Start Date End Date Giana Isbell MD [address] [place] [address] PCP - General Internal Medicine 09/07/18 documented as of this encounter
--- OUTSIDE RECORDS SUMMARY | 2024-10-24 16:45 | XMS_ITS | Encounter Summary ---
Author Organization [employer] Address [address] [facility] 7t [place] [address] Care Team Providers Care Application Technician Name Role Phone Giana Isbell MD Primary Care Provider [phone] Encounter Details Date Type Department Care Team (Latest Contact Info) Description 02/15/2018 Abstract [facility] CONVERSIONS Dental, Provider, DDS Social History [...] on filedocumented in this encounter Care Teams Application Technician Relationship Specialty Start Date End Date Giana Isbell MD [address] [place] [address] PCP - General Internal Medicine 09/07/18 documented as of this encounter
--- OUTSIDE RECORDS SUMMARY | 2024-10-24 16:45 | XMS_ITS | Encounter Summary ---
Author Organization [employer] Address [address] [place] [address] 7t [place] [address] Care Team Providers Care Chief Nurse Anesthetist Name Role Phone Giana Isbell MD Primary Care Provider [phone] Encounter Details Date Type Department Care Team (Latest Contact Info) Description 11/13/2020 Abstract [facility] CONVERSIONS Dental, Provider, DDS Social History [...] on filedocumented in this encounter Care Teams Chief Nurse Anesthetist Relationship Specialty Start Date End Date Giana Isbell MD [address] [place] [address] PCP - General Internal Medicine 09/07/18 documented as of this encounter
--- OUTSIDE RECORDS SUMMARY | 2024-10-24 16:45 | XMS_ITS | Encounter Summary ---
Author Organization [employer] Address [address] [facility] 7t [place] [address] Care Team Providers Care Dry Lumber Grader Name Role Phone Giana Isbell MD Primary Care Provider [phone]- [phone] Encounter Details Date Type Department Care Team ([facility] st Contact Info) Description 04/05/2023 Telephone [facility] MEDICINE [address] [place] [address] Giana Isbell MD [address] [place], [place] [phone] Social History Tobacco Use Types Packs/Day Years [...] documented as of this encounter Care Teams Dry Lumber Grader Relationship Specialty Start Date End Date Giana Isbell MD [address] [place] [address] PCP - General Internal Medicine 09/07/18 documented as of this encounter
--- OUTSIDE RECORDS SUMMARY | 2024-10-24 16:45 | XMS_ITS | Encounter Summary ---
Author Organization [employer] Address [address] [place] [address] 7 [place] [address] Care Team Providers Care Staying Machine Operator Name Role Phone Giana Isbell MD Primary Care Provider [phone] Reason for Referral * Imaging (Urgent) - Closed Specialty Diagnoses / Procedures Referred By Contharman chávez Referred To Contact Radiology Diagnoses Elevated alkaline phosphatase level Procedures US Abdomen Complete Giana Isbell MD [address] [place] [address] Phone: tel: fax: [address] Phone: tel: fax: Referral ID Status Reason Start Date Expiration Date Visits Re quested Visits Authorized [id number] Closed 02/17/2023 02/17/2024 1 1 Encounter Details Date Type Department Care Team (Late st Contact Info) Description 02/17/2023 Orders Only [facility] CHC MED & PEDS [address] [place], [place] [phone] Giana Isbell MD [address] [place], [place] [phone] Elevated alkaline phosphatase level (Primary Dx); Left [...] AM EST Narrative 03/22/2023 9:16 AM EST [place] [address] Ultrasound Report Signed Patient: Tory Bush MR#: [id number] : 1965 Acct:[id number] Age/Sex: 57 / F ADM Date: 03/21/23 Loc: HO.US Attending Dr: Giana Isbell MD Ordering Physician: Giana Isbell MD Date of Service: 03/21/23 Procedure(s): US abdomen complete Accession Number(s): [id number] cc: Giana Isbell MD EXAMINATION: US ABDOMEN [...] MD in OV> 03/22/23911 DD/ 8 TD/TT: Delivery Aide: Procedure Note Donotuseinterpreter, Image - 03/22/[address] [address] Ultrasound Report Signed Patient: Pat Bush#: [id number] : 1965Acct:[id number] Age/Sex: 57 / FADM Date: 03/21/23 Loc: HO.US Attending Dr: Giana Isbell MD Ordering Physician: Giana Isbell MD Date of Service: 03/21/23 Procedure(s): US abdomen complete Accession Number(s): [id number] cc: Giana Isbell MD EXAMINATION: US ABDOMEN [...] MD in OV> 03/22/23911 DD/ 8 TD/TT: Delivery Aide: us Giana Isbell MD IMG US PROCEDURES Final Res ult documented in this encounter Visit Diagnoses Diagnosis Elevated alkaline phosphatase level- Primary Left upper quadrant abdominal pain documented in this encounter Additional Health Concerns Assessment Noted Time PHQ-9 Depression Total Score: 7 07/30/19 23 10:13 AM EDT documented as of this encounter Care Teams Staying Machine Operator Relationship Specialty Start Date End Date Giana Isbell MD [address] [place] [address] PCP - General Internal Medicine 09/07/18 documented as of this encounter
--- OUTSIDE RECORDS SUMMARY | 2024-10-24 16:45 | XMS_ITS | Encounter Summary ---
Author Organization [employer] [facility] [employer] Address [address] [place] [address] 7t [place] [address] Care Team Providers Care International Accounting Manager Name Role Phone Giana Isbell MD Primary Care Provider [phone]- [phone] Encounter Details Date Type Department Care Team (Latest Contact Info) Description 12/04/2021 Abstract [facility] CONVERSIONS Dental, Provider, DDS Social History Tobacco [...] on filedocumented in this encounter Care Teams International Accounting Manager Relationship Specialty Start Date End Date Giana Isbell MD [address] [place] [address] PCP - General Internal Medicine 09/07/18 documented as of this encounter
--- OUTSIDE RECORDS SUMMARY | 2024-10-24 16:45 | XMS_ITS | Encounter Summary ---
Author Organization [employer] Address [address] [facility] 7t [place] [address] Care Team Providers Care It Network Engineer Name Role Phone Giana Isbell MD Primary Care Provider [phone] Encounter Details Date Type Department Care Team ([facility] Contact Info) Description 02/17/2024 Orders Only [facility] [address] [place] [address] ProviderKathi MD Social History Tobacco Use Types Packs/Day Years [...] documented as of this encounter Care Teams It Network Engineer Relationship Specialty Start Date End Date Giana Isbell MD [address] [place] [address] PCP - General Internal Medicine 09/07/18 documented as of this encounter
--- OUTSIDE RECORDS SUMMARY | 2024-10-24 16:45 | XMS_ITS | Encounter Summary ---
Author Organization [employer] Address [address] [facility] 7 [place] [address] Care Team Providers Care Numerical Control Machine Tool Operator Name Role Phone Giana Isbell MD Primary Care Provider [phone] Reason for Visit * Reason Onset Date Comments Hospital Follow-up 07/20/2022 Encounter Details Date Type Department Care Team ([facility] st Contact Info) Description 07/20/2022 Telephone [facility] MED [facility] PEDS [address] [place] [address] Giana Isbell MD [address] [place] [address] Hospital Follow-up Social History Tobacco Use Types [...] a HDF appt. [place] [facility] [place] and discharged on 07/20/22 due to abdominal pain. documented in this encounter Plan of Treatment Not on file documented as of this encounter Visit Diagnoses Not on filedocumented in this encounter Care Teams Numerical Control Machine Tool Operator Relationship Specialty Start Date End Date Beauzile, Thevenin, MD [address] [place] [id number] PCP - General Internal Medicine 09/07/18 documented as of this encounter
--- OUTSIDE RECORDS SUMMARY | 2024-10-24 16:45 | XMS_ITS | Encounter Summary ---
Author Organization [employer] Address [address] [facility] [address] [facility] [place] [address] Care Team Providers Care Managed Services Sales Consultant Name Role Phone Giana Isbell MD Primary Care Provider [phone] Reason for Referral * Consultation (Routine) - Closed Specialty Diagnoses / Procedures Referred By Contac t Referred To Contact Cardiology Diagnoses SOB (shortness of breath) Giana Isbell MD [address] [place] [address] Phone: tel: fax: Kavon Berumen MD [address] [facility] [address] [place] [address] Phone: tel: fax: Referral ID Status Reason Start Date Expiration Date V isits Requested Visits Authorized [id number] Closed Specialty Services Required 12/19/2023 12/18/2024 1 1 Encounter Details Date Type Department Care Team (Late st Contact Info) Description 12/19/2023 Orders Only [facility] MED & PEDS [address] [place] [address] Giana Isbell MD [address] [place], [place] [phone] SOB (shortness of breath) (Primary Dx) Social [...] of this encounter Plan of Treatment Scheduled Referrals Name Type Priority Associated Diagnoses [...] AM EST Narrative 01/18/2024 9:40 AM EST [facility] [address] [place] [address] Ultrasound Report Signed with Addenda Patient: Tory Bush MR#: [id number] : 1965 Acct:[id number] Age/Sex: 58 / F ADM Date: 01/18/24 Loc: HO.MAMMO Attending Dr: Pardeep Marcos MD Ordering Physician: Pardeep Marcos MD Date of Service: 01/18/24 Procedure(s): US breast ndl core biopsy RT Accession Number(s): [id number] cc: Giana Isbell MD; Pardeep Marcos MD [...] signed by Carissa Raza DO in OV> 01/25/24 0854 Addendum Cosigned By: [...] OV> 01/18/2437 DD/ 9 TD/TT: 01/18/24 0835 Mis Specialist: Procedure Note Donotuseinterpreter, Image - 01/25/2024 [facility] [address] [place], [place] [address] Ultrasound Report Signed with Fani Patient: Pat Bush#: [id number] : 1965Acct:[id number] Age/Sex: 58 / FADM Date: 01/18/24 Loc: JOEO Attending Dr: Pardeep Marcos MD Ordering Physician: Pardeep Marcos MD Date of Service: 01/18/24 Procedure(s): US breast ndl core biopsy RT Accession Number(s): [id number] cc: Giana Isbell MD; Pradeep Marcos MD ADDENDUM ADDENDUM #1 ADDENDUM: Right [...] in OV> 01/18/24936 DD/ 9 TD/TT: 01/18/24834 Mis Specialist: us [facility] External Provider IMG US PROCEDURES Edited Result - Final * BI Mammogram Diagnostic Tomosynthesis Right (01/18/2024 8:00 AM EST) Anatomical Region Laterality Modality Breast Right Mammography 01/18/2024 8:00 AM EST Narrative 01/18/2024 9:40 AM EST [address] [place] [address] Mammography Report Signed with Addenda Patient: Tory Bush MR#: [id number] : 1965 Acct:[id number] Age/Sex: 58 / F ADM Date: 01/18/24 Loc: ADELITA Attending Dr: Pardeep Marcos MD Ordering Physician: Pardeep Marcos MD Results: Date of Service: 01/18/24 Follow Up: Procedure(s): MM tomosynthesis diagnostic RT Accession Number(s): [id number] cc: Giana Isbell MD; Pardeep Marcos MD [...] signed by Carissa Raza DO in OV> 01/25/24853 Addendum Cosigned By: DD/ [...] by: Carissa Raza DO 01/18/2024 09:37 AM [facility] Dictated By: Carissa Raza DO Signed By: <Electronically signed by Carissa Raza DO in OV> 01/18/24 0937 DD/ 0800 TD/TT: 01/18/24 0835 Mis Specialist: Procedure Note Donotuseinterpreter, Image - 01/25/2024 [facility] [address] [place] [address] [place] [address] Mammography Report Signed with Fani Patient: Pat Bush#: [id number] : 1965Acct:[id number] Age/Sex: 58 / FADM Date: 01/18/24 Loc: HO.MAMMO Attending Dr: Pardeep Marcos MD Ordering Physician: Pardeep Marcos MDResults: Date of Service: 01/18/24Follow Up: Procedure(s): MM tomosynthesis diagnostic RT Accession Number(s): [id number] cc: Giana Isbell MD; Pardeep Marcos MD [...] OV> 01/18/2437 DD/ 0800 TD/TT: 01/18/24 0835 Mis Specialist: [facility] External Provider IMG BI PROCEDURES Edited Result - Final documented in this encounter Visit Diagnoses Diagnosis SOB (shortness of breath)- Primary Shortness of breath documented in this encounter Additional Health Concerns Assessment Noted Time PHQ-9 Depression Total Score: 7 07/30/19 23 10:13 AM EDT documented as of this encounter Care Teams Managed Services Sales Consultant Relationship Specialty Start Date End Date Giana Isbell MD [address] [place] [address] PCP - General Internal Medicine 09/07/18 documented as of this encounter
--- OUTSIDE RECORDS SUMMARY | 2024-10-24 16:45 | XMS_ITS | Encounter Summary ---
Author Organization [employer] Address [address] [place] [address] [address] [place] [address] Care Team Providers Care Textile Conversion Manager Name Role Phone Giana Isbell MD Primary Care Provider [phone] Reason for Visit * Reason Comments Med Refill Encounter Details Date Type Department Care Team (Late st Contact Info) Description 03/31/2022 Refill [facility] MED [facility] PEDS [address] [place] [address] Giana Isblel MD [address] [place], [place] [phone] Acquired hypothyroidism (Primary Dx); Other constipation; Depressive [...] intractable documented in this encounter Care Teams Textile Conversion Manager Relationship Specialty Start Date End Date Giana Isbell MD [address] [place], [place] [phone] PCP - General Internal Medicine 09/07/18 documented as of this encounter
--- OUTSIDE RECORDS SUMMARY | 2024-10-24 16:45 | XMS_ITS | Clinical Summary ---
Author Organization [employer] Address [address] [facility] [address] [place] [address] Care Team Providers Care Departmental Shipping Clerk Name Role Phone Giana Isbell MD Primary Care Provider [phone] Allergies Active Allergy Reactions Criticality Noted Date [...] that organization. docusate sodium (Colace) 100 MG capsuleIndication s:Other [...] NOSTRIL ONCE DAILY NEEDED 16 g 5 Active D3 Super Strength 50 MCG (2000 [...] g by mouth Once per day. Active Albuterol-Budeson trell (Airsupra) 90-80 MCG/ACT aerosol Inhale 3 Inhalations Once per day. Active calcium carbonate (Os-Norberto) 1250 (500 Ca) MG chewable tablet Chew 1 tablet if needed each day for heartburn. Active levothyroxine (Synthroid) 125 MCG tabletIndications :Acquired hypothyroidism Take 1 tablet (125 mcg) by mouth before breakfast. 30 tablet 11 025 2025 Active venlafaxine (Effexor) 37.5 MG tabletIndications :Depressive disorder TAKE 1 TABLET BY MOUTH TWICE DAILY 60 tablet 5 025 Active dextran 70-hypromellose (artificial tears) 0.1-0.3 % ophthalmic solutionIndicatio ns:Dry eyes, bilateral Administer 1 drop into both eyes if needed in the morning, at noon, and at bedtime for dry eyes. 30 mL 3 025 2025 Active SUMAtriptan (Imitrex) 50 MG tabletIndications :Migraine with aura and without status migrainosus, not intractable Take 1 tablet (50 mg) by mouth if needed each day for migraine. 9 tablet 11 025 Active hydrocortisone 0.5 % cream APPLY 1 GRAM TOPICALLY TO AFFECTED AREA(S) TWICE DAILY DIRECTED 56.8 g 1 025 Active capsaicin (Zostrix) 0.025 % creamIndications: Chronic pain of left knee APPLY 1 GRAM TOPICALLY TO AFFECTED AREA(S) TWICE DAILY DIRECTED 60 g 3 025 Active albuterol (2.5 MG/3ML) 0.083% nebulizer solutionIndicatio ns:SOB (shortness of breath),Bronchopn eumonia INHALE 1 AMPULE USING A NEBULIZER EVERY 6 HOURS NEEDED FOR WHEEZING 90 mL 11 025 Active albuterol (2.5 MG/3ML) 0.083% nebulizer solutionIndicatio ns:SOB (shortness of breath),Bronchopn eumonia Take 3 mL (2.5 mg) by nebulization every 6 (six) hours if needed for wheezing. 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 Closed fracture of tooth 12/16/2023 Pre-diabetes 12/06/2023 Fractured dental caodaism without loss of mat erial 12/06/2023 Transaminitis [...] diagnostic mammo and breast US, send to [facility] Cervical cancer screening 10/25/2023 Assessment & Plan [...] Encounters Date Type Department Care Team Description 10/24/2024 Orders Only [facility] External Provider, [facility] 09/29/2024 Refill [facility] [address] [place] [address] Giana Isbell MD SOB (shortness of breath); Bronchopneumonia 09/01/2024 Refill [facility] [address] [place] [address] Giana Isbell MD Chronic pain of left knee 08/30/2024 Refill [facility] [address] [place] [address] Giana Isbell MD 08/27/2024 Orders Only GENERIC EXTERNAL DATA DEPARTMENT Provider, Generic External Data 08/22/2024 Orders Only [facility] External Provider, [facility] from Last 3 Months Immunizations Immunization Administration [...] 88 03/28/2024 9:16 AM EST Temperature 36.7 C (98.1 F) 03/28/2024 9:16 AM EST Respiratory Rate 20 03/28/2024 9:16 AM EST Oxygen Saturation 99% 03/28/2024 9:16 AM EST Inhaled Oxygen Concentration - - Weight 63.9 kg (140 lb 12.8 oz) 03/28/2024 9:16 AM EST Height 152.4 cm (5') 03/28/2024 9:16 AM EST Body Mass Index 27.5 03/28/2024 9:16 AM EST Plan of Treatment Health Maintenance Due Date Last Done Comments CT Colonography 1965 FIT DNA/Cologuard 1965 FIT 1965 FOBT 1965 HIV Screening 1965 Sigmoidoscopy 1965 Disability Screening 1965 Hepatitis A Vaccines (1 of 2 - Risk 2-dose series) 1984 Pneumococcal Vaccine: 50+ Years (1 of 1 - PCV) 06/02/2015 Zoster Vaccines (1 of 2) 06/02/2015 Dental Oral Exam 06/05/2022 12/04/2021, 09/2020, 08/28/2013 Dental Prophylaxis 06/05/2022 12/04/2021, 1 , 02/16/2019, Additional history exists Dental X-Ray: Bitewings 12/05/2022 12/05/19 22, 01/05/2021, 11/13/2020, Additional history exists Depression Monitoring 09/25/2024 03/28/2024, 025 COVID-19 Vaccine ( season) 2024 11/30/2021, 08/24/2021, 02/03/2021, Additional history exists Influenza Vaccine (#1) 2024 Diabetes: Hemoglobin A1C 12/05/2024 024, 10/20/2023, 08/27/2021, Additional history exists SDOH Screening 03/20/2025 03/20/2024 Alcohol/Substance Use Screening 03/28/2025 03/28/2024 Tobacco Screening 04/17/2025 04/17/2024 Mammogram 08/22/2025 08/22/2024, 08/07, 04/09/2024, Additional history exists Colonoscopy 12/01/2025 12/02/2015 Colorectal Cancer Screening 12/01/2025 [...] 2-3 VIEWS Routine 10/24/2024 1:31 PM EDT BI MM SURGICAL SPECIMEN Routine 08/27/2024 11:00 AM EDT HEMATOXYLIN AND EOSIN STAIN Routine 08/27/2024 10:58 AM EDT NM SENTINEL NODE W IMAGING Routine 08/27/2024 7:14 AM EDT BI MAMMOGRAM DIAGNOSTIC TOMOSYNTHESIS RIGHT Routine 08/22/2024 10:22 AM EDT MM RF TAG DEVICE LT Routine 08/22/2024 1 0:00 AM EDT US BREAST NEEDLE LOC RT - RFID Routine 08/22/2024 9:58 AM EDT BI US BREAST LIMITED LEFT Routine 08/22/2024 9:08 AM EDT PANORAMIC RADIOGRAPHIC IMAGE Routine 12/06/2023 1:00 PM [...] Relevant to Health Maintenance Results * XR Lumbar Spine 2-3 Views (10/24/2024 1:31 PM EDT) Anatomical Region Laterality Modality Spine, L-spine Radiographic Laura ging 10/24/2024 1:31 PM EDT Narrative 10/24/2024 1:44 PM EDT [address] [address] XRay Report Signed Patient: Tory Bush MR#: [id number] : 1965 Acct:[id number] Age/Sex: 59 / F ADM Date: 10/24/24 Loc: [facility] Attending Dr: Nicci Wilkins NP Ordering Physician: Nicci Wilkins NP Date of Service: 10/24/24 Procedure(s): XR lumbar spine 2-3V Accession Number(s): [id number] cc: Giana Isbell MD; Nicci Wilkins NP [...] in OV> 10/24/24 1342 DD/ 1331 TD/TT: 10/24/241334 Stone Decorator: Procedure Note Donotshirleneinterpreter, Image - 10/24/2024 [place] [address] XRay Report Signed Patient: Pat Bush#: [id number] : 1965Acct:[id number] Age/Sex: 59 / FADM Date: 10/24/24 Loc: [facility] Attending Dr: Nicci Wilkins NP Ordering Physician: Nicci Wilkins NP Date of Service: 10/24/24 Procedure(s): XR lumbar spine 2-3V Accession Number(s): [id number] cc: Giana Isbell MD; Nicci Wilkins NP [...] in OV> 10/24/24 1342 DD/ 1331 TD/TT: 10/24/241334 Stone Decorator: us [facility] External Provider IMG XR PROCEDURES Edited Result - Final * BI MM SURGICAL SPECIMEN (08/27/2024 11:00 AM EDT) Anatomical Region Laterality Modality Breast Bilateral Mammography 08/27/2024 11:0 0 AM EDT Narrative 08/27/2024 11:22 AM EDT [address] [address] [id number] Mammography Report Signed Patient: Tory Bush MR#: [id number] : 1965 Acct:[id number] Age/Sex: 59 / F ADM Date: 08/27/24 Loc: LEO Attending Dr: Pardeep Marcos MD Ordering Physician: Pardeep Marcos MD Results: Date of Service: 08/27/24 Follow Up: Procedure(s): MM surgical specimen Accession Number(s): [id number] cc: Giana Isbell MD; Pardeep Marcos MD Right single specimen radiograph demonstrates the butterfly clip and the tag within the specimen. Left single specimen radiograph demonstrates the bar clip and the tag within the specimen. Electronically signed by: Carissa Raza DO 08/27/2024 11:19 AM EDT Dictated By: Carissa Raza DO Signed By: <Electronically signed by Carissa Raza DO in OV> 08/27/24 1119 DD/ 1100 TD/TT: 08/27/24 1110 Stone Decorator: Procedure Note Donotuseinterpreter, Image - 08/27/[address] [address] [id number] Mammography Report Signed Patient: Joshua BushR#: [id number] : 1965Acct:[id number] Age/Sex: 59 / FADM Date: 08/27/24 Loc: [facility] Attending Dr: Pardeep Marcos MD Ordering Physician: Pardeep Marcosesults: Date of Service: 08/27/24Follow Up: Procedure(s): MM surgical specimen Accession Number(s): [id number] cc: Giana Isbell MD; Pardeep Marcos MD Right single specimen radiograph demonstrates the butterfly clip and the tag within the specimen. Left single specimen radiograph demonstrates the bar clip and the tag within the specimen. Electronically signed by: Carissa Raza DO 08/27/2024 11:19 AM EDT Dictated By: Carissa Raza DO Signed By: <Electronically signed by Carissa Raza DO in OV> 08/27/24 1119 DD/ 1100 TD/TT: 08/27/24 1110 Stone Decorator: [facility] External Provider IMG BI PROCEDURES Final Result * Hematoxylin and Eosin Stain (08/27/2024 10:58 AM EDT) 08/27/2024 10:5 8 AM EDT 08/27/2024 11:01 AM EDT [facility] - 08/29/2024 10:10 PM EDT ----- ------- Name: Tory Bush Age/Sex: 59/F : 1965 Unit#: [id number] Attend Dr: Pardeep Marcos MD Re08/27/24 Status: [facility] Location: [facility] Disch: ----- ------- SPEC : [id number] RECD: 08/27/24 STATUS: [facility] [place] NUM: [id number] TEQUILA: 08/27/24 [facility] DR: Pardeep Marcos MD ENTERED: 08/27/24 SP TYPE: Surgical OTHR DR: Giana Isbell MD ORDERED: HE Stain/10, Gross Micro L5/7, Cytokeratin/10, IOC/2 COMMENTS: Part A: Cassettes A1-A11 are placed in formalin at 1126. Part B: Cassettes B1-B12 are placed in formalin at 1205. Diagnosis A. Breast, right, lumpectomy: - No residual invasive carcinoma (s/p neoadjuvant chemotherapy). - Tumor bed identified with fibrosis and macrophages. - Previous biopsy site changes noted. - AJCC 8th edition staging: ypT0N0(sn)(-i) B. Breast, left, lumpectomy: Breast parenchyma with small focus of residual intraductal papilloma, focal atypical ductal hyperplasia, dilated ducts with duct ectasia, moderate usual ductal hyperplasia and previous biopsy site changes. C. Lymph node, sentinel #1, excision: One lymph node, negative for tumor (0/1). D. Lymph node, sentinel #2, excision: One lymph node, negative for tumor (0/1). E. Lymph node, sentinel #3, excision: One lymph node, negative for tumor (0/1). F. Lymph node, sentinel #4, excision: One lymph node, negative for tumor (0/1). G. Lymph node, sentinel #5, excision: One lymph node, negative for tumor (0/1). Clinical History Malignant neoplasm of unspecified site of right breast Microscopic Description A-G. Microscopic sections reviewed. Immunostains for rivera-cytokeratin in parts C-G are negative for isolated tumor cells or malignancy. Material Received A. Right breast lumpectomy B. Left breast lumpectomy C. Pendleton node #1, count 3708 D. Pendleton node #2, count 2082 E. Pendleton node #3, count 153 F. Pendleton node #4, count 127 G. Pendleton node #5, count 284 CONTINUED ON NEXT PAGE ----- ------- Name: Tory Bush Age/Sex: 59/F : 1965 Unit#: [id number] Attend Dr: Pardeep Marcos MD Re08/27/24 Status: [facility] Location: [facility] Disch: ----- ------- SPEC : [id number] RECD: 08/27/24 STATUS: [facility] [place] NUM: [id number] TEQUILA: 08/27/24 [facility] DR: Pardeep Marcos MD ENTERED: 08/27/24 SP TYPE: Surgical OTHR DR: Giana Isbell MD ORDERED: HE Stain/10, Gross Micro L5/7, Cytokeratin/10, IOC/2 COMMENTS: Part A: Cassettes A1-A11 are placed in formalin at 1126. Part B: Cassettes B1-B12 are placed in formalin at 1205. Gross Description Received in seven parts. Part A: Received fresh, for intraoperative consultation, labeled right breast lumpectomy is a 6.0 (medial-lateral) x 5.0 (superior-inferior) x 2.0-2.4 (anterior- posterior) cm portion of washburn-white and peterson-yellow lobular fibrofatty breast tissue. As stated on the specimen container and specimen requisition slip a short stitch denotes the superior margin, a long stitch denotes the lateral margin and a loop stitch denotes the deep margin. The margins are inked as follows: anterior-black, posterior-red, superior-blue, inferior-green, medial-orange and lateral-yellow. The specimen is serially sectioned to reveal focally dense, rubbery, firm, washburn-white fibrous breast tissue with a lesser amount of peterson-yellow lobular fat. The breast tissue corresponding to the Hologic LOCalizer RFID tag and adjacent butterfly-shaped clip seen on the specimen radiograph is remarkable for an ill-defined, 0.7 x 0.6 x 0.6 cm slightly nodular focus of rubbery firm breast tissue with a central biopsy cavity containing a plug of mucogelatinous material, the RFID tag and 0.2 cm butterfly- shaped biopsy clip consistent with prior biopsy site. This nodular focus closely approaches the posterior margin of resection, however, there is no definitive evidence of residual tumor and the adjacent breast tissue is rubbery and firm, washburn-pink with focal hemorrhage. No other cysts, lesions or nodules are identified. Sections perpendicular to the margins of resection as previously inked are submitted in cassettes A1-A11 from medial to lateral as follows: A1 perpendicular to the medial margin, slice 1; A2 and A3 slice 2, entirely submitted; A4 octmbqba-hztkqgleq-mbxkejkm, slice 3; A5 anterior-posterior, slice 3; A6 ergtarpk-xchwvfafu-olbdafmj, slice 3; A7 posterior-inferior, slice 4; A8 posterior, slice 4; A9 posterior-inferior, slice 5; A10 superior-anterior, slice 5; A11 lateral margin, slice 7. The intraoperative diagnosis is reported to Dr. Marcos as marker and fibrosis present. No definitive tumor. Fibrosis extends to the posterior margin by Dr. Verma.(PK) Part B: Received fresh, for intraoperative consultation, labeled left breast lumpectomy is a 6.7 (medial-lateral) x 5.5 (superior-inferior) x 1.5-2.0 (anterior- posterior) cm portion of cauterized, washburn-white and peterson-yellow lobular fibrofatty breast tissue. As stated on the specimen container and specimen requisition slip a short stitch denotes the CONTINUED ON NEXT PAGE ----- ------- Name: Tory Bush Age/Sex: 59/F : 1965 [facility]#: [id number] Unit#: [id number] Attend Dr: Pardeep Marcos MD Re08/27/24 Status: [facility] Location: [facility] Disch: ----- ------- SPEC : [id number] RECD: 08/27/24 STATUS: [facility] [place] NUM: [id number] TEQUILA: 08/27/24-1057 [facility] DR: Pardeep Marcos MD ENTERED: 08/27/24 SP TYPE: Surgical OTHR DR: Giana Isbell MD ORDERED: HE Stain/10, Gross Micro L5/7, Cytokeratin/10, IOC/2 COMMENTS: Part A: Cassettes A1-A11 are placed in formalin at 1126. Part B: Cassettes B1-B12 are placed in formalin at 1205. Gross Description (Continued) superior margin, a long stitch denotes the lateral margin and a loop stitch denotes the deep margin. The margins are inked as follows: anterior-black, posterior-red, superior-blue, inferior-green, medial-orange and lateral-yellow. The central-medial anterior aspect is remarkable for the Hologic LOCalizer RFID tag resting along a 0.6 cm concave surface on the anterior margin. The specimen is serially sectioned to reveal predominantly homogeneous peterson-yellow lobular fat with a lesser amount of washburn-white fibrous breast tissue. The breast tissue corresponding to the area harboring the RFID tag and barrel-shaped clip is remarkable for washburn, white-pink fibrotic breast tissue. A definitive biopsy site is not identified and the biopsy clip is not identified, however, the area corresponding to the area on the specimen radiograph closely approaches the anterior surface, medially. No other cysts, lesions or nodules are identified. Sections perpendicular to the margins of resection as previously inked are submitted from lateral to medial in cassettes B1-B12 as follows: B1 lateral margin, slice 1; B2 anterior-posterior, slice 2; B3 anterior-posterior, slice 3; B4 inferior, slices three and four; B5 and B6 anterior-posterior, slice 4; B7 anterior-posterior, slice 5; B bmpsbxlm-ahzegetvb-lkyhahqn, slice 5; B9 anterior-posterior, slice 6; B10 mubimabu-kktmfkgoh-zddusqal, slice 6; B11 anterior-superior, slice 6; B12 medial. Cassettes B3-B10 encompass the question area of prior biopsy and clip. The intraoperative diagnosis is reported to Dr. Marcos as marker identified in fibrous tissue. No suspicious mass by Dr. Verma.() Part C: Received in formalin labeled sentinel node #1, count 3708 is a 2.6 x 1.0 x 0.5 cm washburn-pink lymph node with attached adipose tissue sectioned to reveal homogeneous washburn-pink cut surfaces, entirely submitted in a cassette labeled C1. Part D: Received in formalin labeled sentinel node #2, count 2082 is a partially previously incised, 1.2 cm washburn-pink lymph node with attached peterson-yellow lobular adipose tissue, sectioned to reveal homogeneous washburn-pink cut surfaces, entirely submitted in a cassette labeled D. Part E: Received in formalin labeled sentinel node #3, count 153 is a 0.9 x 0.6 x 0.25 cm CONTINUED ON NEXT PAGE ----- ------- Name: Tory Bush Age/Sex: 59/F : 1965 Unit#: [id number] Attend Dr: Pardeep Marcos MD Re08/27/24 Status: [facility] Location: [facility] Disch: ----- ------- SPEC : [id number] RECD: 08/27/24 STATUS: [facility] [place] NUM: [id number] TEQUILA: 08/27/[address]: Pardeep Marcos MD ENTERED: 08/27/24 SP TYPE: Surgical OTHR DR: Giana Isbell MD ORDERED: HE Stain/10, Gross Micro L5/7, Cytokeratin/10, IOC/2 COMMENTS: Part A: Cassettes A1-A11 are placed in formalin at 1126. Part B: Cassettes B1-B12 are placed in formalin at 1205. Gross Description (Continued) cauterized, congested and hemorrhagic red-maroon lymph node with attached adipose tissue, sectioned and entirely submitted in a cassette labeled E. Part F: Received in formalin labeled sentinel node #4, count 127 is a 0.45 cm washburn-pink lymph node with attached adipose tissue. The lymph node is submitted in toto in cassette F1. Part G: Received in formalin labeled sentinel node #5, count 284 is a 0.7 x 0.3 x 0.2 cm washburn-pink lymph node with attached fibroadipose tissue and fibrovascular tissue which is submitted in toto in cassette G1. CEDS Special stains ordered and performed: Immunostains for rivera-cytokeratin on C1, D1, E1, F1, G1. IHC S/NG Disclaimer NOTE: Unless otherwise stated, all tissue is formalin-fixed and paraffin-embedded. Some or all of the immunohistochemical tests reported herein may have been developed and their performance characteristics determined by [facility]. They have not been cleared or approved by the U.S. Food and Drug Administration (FDA). However, the FDA has determined that such clearance or approval is not necessary. This laboratory is certified under the Clinical Laboratory Improvement Amendments of 1988 (CLIA) as qualified to perform high complexity clinical laboratory testing. Copies To: Giana Isbell MD [address] [address] Pardeep Marcos MD [facility] General Surgeons [address] [place] [address] [phone] CONTINUED ON NEXT PAGE ----- ------- Name: Tamia SánchezTory Age/Sex: 59/F : 1965 Unit#: [id number] Attend Dr: Pardeep Marcos MD Re08/27/24 Status: [facility] Location: [facility] Disch: ----- ------- SPEC : [id number] RECD: 08/27/24 STATUS: [facility] [place] NUM: [id number] TEQUILA: 08/27/24 [facility] DR: Pardeep Marcos MD ENTERED: 08/27/24 SP TYPE: Surgical OTHR DR: Giana Isbell MD ORDERED: HE Stain/10, Gross Micro L5/7, Cytokeratin/10, IOC/2 COMMENTS: Part A: Cassettes A1-A11 are placed in formalin at 1126. Part B: Cassettes B1-B12 are placed in formalin at 1205. ----- ------- Signed (signature on file) Bhavya Mckeon MD 08/29/24 2210 ----- ------- END OF REPORT us Generic External Data Provider LAB BLOOD ORDERAB LES Final Result Performing Organization Address City/State/[facility] Co de Phone Number [facility] [address] [place] [address] [phone] * NM SENTINEL NODE W IMAGING (08/27/2024 7:14 AM EDT) Anatomical Region Laterality Modality Nuclear Medicine 08/27/2024 7:14 AM EDT Narrative 08/27/2024 9:38 AM EDT [place] [address] Nuclear Medicine Report Signed Patient: Tory Bush MR#: [id number] : 1965 Acct:[id number] Age/Sex: 59 / F ADM Date: 08/27/24 Loc: .SSS Attending Dr: Pardeep Marcos MD Ordering Physician: Pardeep Marcos MD Date of Service: 08/27/24 Procedure(s): NM sentinel node w imaging Accession Number(s): [id number] cc: Giana Isbell MD; Pardeep Marcos MD EXAMINATION: Nuclear medicine sentinel node with imaging. CLINICAL INDICATION: Malignant neoplasm right breast, invasive ductal carcinoma. COMPARISON: Diagnostic mammogram 08/22/2024. TECHNIQUE: 5% lidocaine jelly was applied around the right breast areola 30 minutes prior to the test. The area around the right breast areola was cleaned in aseptic manner. 0.5 mCi of technetium 99m Tilmanocept divided in 4 equal doses was injected subcutaneously in 4 quadrants around the right breast areola and imaging obtained 20 minutes later. Patient tolerated procedure extremely well. FINDINGS/ NM/NM sentinel node w imaging IMPRESSION: Moderate focal activity seen around the right breast areola from subcutaneous injection. Multiple sentinel nodes seen along the anterior axilla on anterior view. Electronically signed by: Percy Piedra MD 08/27/2024 09:35 AM EDT RP Dictated By: Percy Piedra MD Signed By: <Electronically signed by Percy Piedra MD in OV> 08/27/2435 DD/ 3 TD/TT: 08/27/24 09 Stone Decorator: [facility] Procedure Note Donotuseinterpreter, Image - 08/27/2024 [place] [address] Nuclear Medicine Report Signed Patient: Pat Bush#: [id number] : 1965Acct:[id number] Age/Sex: 59 / FADM Date: 08/27/24 Loc: [facility] Attending Dr: Pardeep Marcos MD Ordering Physician: Pardeep Marcos MD Date of Service: 08/27/24 Procedure(s): NM sentinel node w imaging Accession Number(s): [id number] cc: Giana Isbell MD; Pardeep Marcos MD EXAMINATION: Nuclear medicine sentinel node with imaging. CLINICAL INDICATION: Malignant neoplasm right breast, invasive ductal carcinoma. COMPARISON: Diagnostic mammogram 08/22/2024. TECHNIQUE: 5% lidocaine jelly was applied around the right breast areola 30 minutes prior to the test. The area around the right breast areola was cleaned in aseptic manner. 0.5 mCi of technetium 99m Tilmanocept divided in 4 equal doses was injected subcutaneously in 4 quadrants around the right breast areola and imaging obtained 20 minutes later. Patient tolerated procedure extremely well. FINDINGS/ NM/NM sentinel node w imaging IMPRESSION: Moderate focal activity seen around the right breast areola from subcutaneous injection. Multiple sentinel nodes seen along the anterior axilla on anterior view. Electronically signed by: Percy Piedra MD 08/27/2024 09:35 AM EDT Dictated By: Percy Piedra MD Signed By: <Electronically signed by Percy Piedra MD in OV> 08/27/2435 DD/ 0714 TD/TT: 08/27/24 0900 Stone Decorator: [facility] External Provider IMG NM PROCEDURES Final Result * BI Mammogram Diagnostic Tomosynthesis Right (08/22/2024 10:22 AM EDT) Anatomical Region Laterality Modality Breast Right Mammography 08/22/2024 10:2 2 AM EDT Narrative 08/22/2024 1:58 PM EDT [address] [place] [address] Mammography Report Signed Patient: Tory Bush MR#: [id number] : 1965 Acct:[id number] Age/Sex: 59 / F ADM Date: 08/22/24 Loc: HO.MAMMO Attending Dr: Pardeep Marcos MD Ordering Physician: Pardeep Marcos MD Results: 1Nega tive Date of Service: 08/22/24 Follow Up: 1 Year From [facility] Mammogram Procedure(s): MM tomosynthesis diagnostic RT Accession Number(s): [id number] cc: Giana Isbell MD; Pardeep Marcos MD EXAMINATION: Ultrasound GUIDED RFID LOCALIZATION BREAST, RIGHT CLINICAL INFORMATION: History of right breast invasive ductal carcinoma treated with neoadjuvant chemotherapy. COMPARISON: Available priors on PACS. TECHNIQUE NEEDLE LOC: Proper informed consent is obtained from the patient after discussion of the procedure, potential risks and complications, and alternatives including declining the procedure today. Patient was given an opportunity for questions. The patient appeared to understand. The patient consented to the procedure and signed the consent form. GUIDANCE: Ultrasound. APPROACH: Lateral. TARGET: Butterfly marker clip central outer right breast.. ANESTHESIA: Lidocaine 10 mL. LOCALIZATION SYSTEM: Enconcert LOCallizer Wire-Free Guidance System with 12g needle applicator. RADIOFREQUENCY TAG: ID # [id number] RF Tag ID confirmed with LOCalizer Guidance System prior to placement. The skin is prepped and local anesthesia administered. The needle is positioned and RFID tag deployed. Final images demonstrate the LOCalizer RF tag to reside adjacent to the butterfly clip. The patient tolerated the procedure well and had no immediate complications. Dressing placed and home instructions reviewed. MM/MM tomosynthesis diagnostic RT IMPRESSION: -Status post right breast RFID localization. Electronically signed by: Carissa Raza DO 08/22/2024 01:55 PM EDT Dictated By: Carissa Raza DO Signed By: <Electronically signed by Carissa Raza DO in OV> 08/22/24 1355 DD/ 1022 TD/TT: 08/22/24 1115 Stone Decorator: Procedure Note Donotuseinterpreter, Image - 08/22/2024 [facility] [address] [place] [address] Mammography Report Signed Patient: Pat Bush#: [id number] : 1965Acct:[id number] Age/Sex: 59 / FADM Date: 08/22/24 Loc: HO.MAMMO Attending Dr: Pardeep Marcos MD Ordering Physician: Pardeep Marcos MDResults: 1Nega tive Date of Service: 08/22/24Follow Up: 1 Year From Orig inal Mammogram Procedure(s): MM tomosynthesis diagnostic RT Accession Number(s): [id number] cc: Giana Isbell MD; Pardeep Marcos MD EXAMINATION: Ultrasound GUIDED RFID LOCALIZATION BREAST, RIGHT CLINICAL INFORMATION: History of right breast invasive ductal carcinoma treated with neoadjuvant chemotherapy. COMPARISON: Available priors on PACS. TECHNIQUE NEEDLE LOC: Proper informed consent is obtained from the patient after discussion of the procedure, potential risks and complications, and alternatives including declining the procedure today. Patient was given an opportunity for questions. The patient appeared to understand. The patient consented to the procedure and signed the consent form. GUIDANCE: Ultrasound. APPROACH: Lateral. TARGET: Butterfly marker clip central outer right breast.. ANESTHESIA: Lidocaine 10 mL. LOCALIZATION SYSTEM: Enconcert LOCallizer Wire-Free Guidance System with 12g needle applicator. RADIOFREQUENCY TAG: ID # [id number] RF Tag ID confirmed with LOCalizer Guidance System prior to placement. The skin is prepped and local anesthesia administered. The needle is positioned and RFID tag deployed. Final images demonstrate the LOCalizer RF tag to reside adjacent to the butterfly clip. The patient tolerated the procedure well and had no immediate complications. Dressing placed and home instructions reviewed. MM/MM tomosynthesis diagnostic RT IMPRESSION: -Status post right breast RFID localization. Electronically signed by: Carissa Raza DO 08/22/2024 01:55 PM EDT Dictated By: Carissa Raza DO Signed By: <Electronically signed by Carissa Raza DO in OV> 08/22/24 1355 DD/ 1022 TD/TT: 08/22/24 1115 Stone Decorator: [facility] External Provider IMG BI PROCEDURES Final Result * MM RF Tag Device Left (08/22/2024 10:00 AM EDT) Anatomical Region Laterality Modality Breast Left Mammography 08/22/2024 10:0 0 AM EDT Narrative 08/22/2024 3:46 PM EDT [facility] [address] [place] [address] Mammography Report Signed Patient: Tory Bush MR#: [id number] : 1965 Acct:[id number] Age/Sex: 59 / F ADM Date: 08/22/24 Loc: JOEO Attending Dr: Pardeep Marcos MD Ordering Physician: Pardeep Marcos MD Results: Date of Service: 08/22/24 Follow Up: Procedure(s): MM RF Tag device LT Accession Number(s): [id number] cc: Giana Isbell MD; Pardeep Marcos MD EXAMINATION: MM MAMMOGRAM GUIDED RFID LOCALIZATION BREAST, left breast CLINICAL INFORMATION: Left breast papilloma right breast invasive ductal carcinoma here for bilateral TAG localization COMPARISON: Available priors on PACS. TECHNIQUE NEEDLE LOC: Proper informed consent is obtained from the patient after discussion of the procedure, potential risks and complications, and alternatives including declining the procedure today. Patient was given an opportunity for questions. The patient appeared to understand. The patient consented to the procedure and signed the consent form. GUIDANCE: Digital mammography. APPROACH: Superior. TARGET: Bulbar Marker clip in the retroareolar region.. ANESTHESIA: carbonated lidocaine 1%: 10 mL. LOCALIZATION SYSTEM: -Enconcert LOCallizer Wire-Free Guidance System with 12g needle applicator. -Length: 5 cm. -RADIOFREQUENCY TAG: ID # [id number] RF Tag ID confirmed with LOCalizer Guidance System prior to placement. The skin is prepped and local anesthesia administered. The needle is positioned and RFID tag deployed. Final images demonstrate the LOCalizer RF tag to reside adjacent to the marker clip. The patient tolerated the procedure well and had no immediate complications. Dressing placed and home instructions reviewed. MM/MM RF Tag device LT IMPRESSION: -Status post left breast RFID localization. Electronically signed by: Carissa Raza DO 08/22/2024 03:43 PM EDT Dictated By: Carissa Raza DO Signed By: <Electronically signed by Carissa Raza DO in OV> 08/22/24 1543 DD/ 1000 TD/TT: 08/22/24 1150 Stone Decorator: Procedure Note Donotuseinterpreter, Image - 08/22/2024 [facility] [address] [place], [place] [address] Mammography Report Signed Patient: Pat Bush#: [id number] : 1965Acct:[id number] Age/Sex: 59 / FADM Date: 08/22/24 Loc: HO.MAMMO Attending Dr: Pardeep Marcos MD Ordering Physician: Pardeep Marcosesults: Date of Service: 08/22/24Follow Up: Procedure(s): MM RF Tag device LT Accession Number(s): [id number] cc: Giana Isbell MD; Pardeep Marcos MD EXAMINATION: MM MAMMOGRAM GUIDED RFID LOCALIZATION BREAST, left breast CLINICAL INFORMATION: Left breast papilloma right breast invasive ductal carcinoma here for bilateral TAG localization COMPARISON: Available priors on PACS. TECHNIQUE NEEDLE LOC: Proper informed consent is obtained from the patient after discussion of the procedure, potential risks and complications, and alternatives including declining the procedure today. Patient was given an opportunity for questions. The patient appeared to understand. The patient consented to the procedure and signed the consent form. GUIDANCE: Digital mammography. APPROACH: Superior. TARGET: Bulbar Marker clip in the retroareolar region.. ANESTHESIA: carbonated lidocaine 1%: 10 mL. LOCALIZATION SYSTEM: -Enconcert LOCallizer Wire-Free Guidance System with 12g needle applicator. -Length: 5 cm. -RADIOFREQUENCY TAG: ID # [id number] RF Tag ID confirmed with LOCalizer Guidance System prior to placement. The skin is prepped and local anesthesia administered. The needle is positioned and RFID tag deployed. Final images demonstrate the LOCalizer RF tag to reside adjacent to the marker clip. The patient tolerated the procedure well and had no immediate complications. Dressing placed and home instructions reviewed. MM/MM RF Tag device LT IMPRESSION: -Status post left breast RFID localization. Electronically signed by: Carissa Raza DO 08/22/2024 03:43 PM EDT Dictated By: Carissa Raza DO Signed By: <Electronically signed by Carissa Raza DO in OV> 08/22/24 1543 DD/ 1000 TD/TT: 08/22/24 1150 Stone Decorator: [facility] External Provider IMG BI PROCEDURES Final Result * US breast needle loc RT - RFID (08/22/2024 9:58 AM EDT) Anatomical Region Laterality Modality Abdomen Ultrasound 08/22/2024 9:58 AM EDT Narrative 08/22/2024 1:58 PM EDT [facility] [address] [place], [place] [address] Ultrasound Report Signed Patient: Tory Bush MR#: [id number] : 1965 Acct:[id number] Age/Sex: 59 / F ADM Date: 08/22/24 Loc: HO.MAMMO Attending Dr: Pardeep Marcos MD Ordering Physician: Pardeep Marcos MD Date of Service: 08/22/24 Procedure(s): US Breast RF Tag Device Right Accession Number(s): [id number] cc: Giana Isbell MD; Pardeep Marcos MD EXAMINATION: Ultrasound GUIDED RFID LOCALIZATION BREAST, RIGHT CLINICAL INFORMATION: History of right breast invasive ductal carcinoma treated with neoadjuvant chemotherapy. COMPARISON: Available priors on PACS. TECHNIQUE NEEDLE LOC: Proper informed consent is obtained from the patient after discussion of the procedure, potential risks and complications, and alternatives including declining the procedure today. Patient was given an opportunity for questions. The patient appeared to understand. The patient consented to the procedure and signed the consent form. GUIDANCE: Ultrasound. APPROACH: Lateral. TARGET: Butterfly marker clip central outer right breast.. ANESTHESIA: Lidocaine 10 mL. LOCALIZATION SYSTEM: Enconcert LOCallizer Wire-Free Guidance System with 12g needle applicator. RADIOFREQUENCY TAG: ID # [id number] RF Tag ID confirmed with LOCalizer Guidance System prior to placement. The skin is prepped and local anesthesia administered. The needle is positioned and RFID tag deployed. Final images demonstrate the LOCalizer RF tag to reside adjacent to the butterfly clip. The patient tolerated the procedure well and had no immediate complications. Dressing placed and home instructions reviewed. US/US Breast RF Tag Device Right IMPRESSION: -Status post right breast RFID localization. Electronically signed by: Carissa Raza DO 08/22/2024 01:55 PM EDT Dictated By: Carissa Raza DO Signed By: <Electronically signed by Carissa Raza DO in OV> 08/22/24 1355 DD/ 0958 TD/TT: 08/22/24 1030 Stone Decorator: Procedure Note Donotuseinterpreter, Image - 08/22/2024 [place] [facility] [address] [place], [place] [address] Ultrasound Report Signed Patient: Pat Bush#: [id number] : 1965Acct:[id number] Age/Sex: 59 / FADM Date: 08/22/24 Loc: HO.MAMMO Attending Dr: Pardeep Marcos MD Ordering Physician: Pardeep Marcos MD Date of Service: 08/22/24 Procedure(s): US Breast RF Tag Device Right Accession Number(s): [id number] cc: Giana Isbell MD; Pardeep Marcos MD EXAMINATION: Ultrasound GUIDED RFID LOCALIZATION BREAST, RIGHT CLINICAL INFORMATION: History of right breast invasive ductal carcinoma treated with neoadjuvant chemotherapy. COMPARISON: Available priors on PACS. TECHNIQUE NEEDLE LOC: Proper informed consent is obtained from the patient after discussion of the procedure, potential risks and complications, and alternatives including declining the procedure today. Patient was given an opportunity for questions. The patient appeared to understand. The patient consented to the procedure and signed the consent form. GUIDANCE: Ultrasound. APPROACH: Lateral. TARGET: Butterfly marker clip central outer right breast.. ANESTHESIA: Lidocaine 10 mL. LOCALIZATION SYSTEM: Enconcert LOCallizer Wire-Free Guidance System with 12g needle applicator. RADIOFREQUENCY TAG: ID # [id number] RF Tag ID confirmed with LOCalizer Guidance System prior to placement. The skin is prepped and local anesthesia administered. The needle is positioned and RFID tag deployed. Final images demonstrate the LOCalizer RF tag to reside adjacent to the butterfly clip. The patient tolerated the procedure well and had no immediate complications. Dressing placed and home instructions reviewed. US/US Breast RF Tag Device Right IMPRESSION: -Status post right breast RFID localization. Electronically signed by: Carissa Raza DO 08/22/2024 01:55 PM EDT Dictated By: Carissa Raza DO Signed By: <Electronically signed by Carissa Raza DO in OV> 08/22/24 1356 DD/ 0958 TD/TT: 08/22/24 1030 Stone Decorator: us [facility] External Provider IMG US PROCEDURES Final Result * BI US Breast Limited Left (08/22/2024 9:08 AM EDT) Anatomical Region Laterality Modality Breast Left Ultrasound 08/22/2024 9:08 AM EDT Narrative 08/22/2024 1:50 PM EDT [address] [place] [address] Ultrasound Report Signed Patient: Tory Bush MR#: [id number] : 1965 Acct:[id number] Age/Sex: 59 / F ADM Date: 08/22/24 Loc: ADELITA Attending Dr: Pardeep Marcos MD Ordering Physician: Pardeep Marcos MD Date of Service: 08/22/24 Procedure(s): US breast LT limited Accession Number(s): [id number] cc: Giana Isbell MD; Pardeep Marcos MD EXAMINATION: US DIAGNOSTIC ULTRASOUND BREAST, left breast CLINICAL INFORMATION: Patient here for left breast tag localization of MRI enhancing mass with pathology of a papilloma ultrasound evaluation preprocedure to see if we can localizer clip.. COMPARISON: Comparison is made with relevant prior imaging. TECHNIQUE: Ultrasound of the breast is performed with real-time hugo scale imaging and color Doppler. FINDINGS: Targeted color Doppler ultrasound scanning in the retroareolar region of the left breast demonstrates normal fibroglandular breast tissue. The enhancing MRI mass with pathology of papilloma and post biopsy marker clip are not seen on ultrasound today therefore mammographic guided tag localization will be performed same day. Results are discussed with the patient at time of visit. US/US breast LT limited IMPRESSION: No post biopsy clip or mass is seen within the left breast on ultrasound for localization. ASSESSMENT: BI-RADS 1: Negative RECOMMENDATION: Mammographic tag localization today. This patient's information was entered into a reminder system with a target due date for their next mammogram. Electronically signed by: Carissa Raza DO 08/22/2024 01:48 PM EDT Dictated By: Carissa Raza DO Signed By: <Electronically signed by Carissa Raza DO in OV> 08/22/24 1348 DD/ 0908 TD/TT: 08/22/24 1042 Stone Decorator: Procedure Note Donotuseinterpreter, Image - 08/22/2024 [facility] [address] [place] [address] Ultrasound Report Signed Patient: Pat Bush#: [id number] : 1965Acct:[id number] Age/Sex: 59 / FADM Date: 08/22/24 Loc: J CARLOS.MAMMO Attending Dr: Pardeep Marcos MD Ordering Physician: Pardeep Marcos MD Date of Service: 08/22/24 Procedure(s): US breast LT limited Accession Number(s): [id number] cc: Giana Isbell MD; Pardeep Marcos MD EXAMINATION: US DIAGNOSTIC ULTRASOUND BREAST, left breast CLINICAL INFORMATION: Patient here for left breast tag localization of MRI enhancing mass with pathology of a papilloma ultrasound evaluation preprocedure to see if we can localizer clip.. COMPARISON: Comparison is made with relevant prior imaging. TECHNIQUE: Ultrasound of the breast is performed with real-time hugo scale imaging and color Doppler. FINDINGS: Targeted color Doppler ultrasound scanning in the retroareolar region of the left breast demonstrates normal fibroglandular breast tissue. The enhancing MRI mass with pathology of papilloma and post biopsy marker clip are not seen on ultrasound today therefore mammographic guided tag localization will be performed same day. Results are discussed with the patient at time of visit. US/US breast LT limited IMPRESSION: No post biopsy clip or mass is seen within the left breast on ultrasound for localization. ASSESSMENT: BI-RADS 1: Negative RECOMMENDATION: Mammographic tag localization today. This patient's information was entered into a reminder system with a target due date for their next mammogram. Electronically signed by: Carissa Raza DO 08/22/2024 01:48 PM EDT Dictated By: Carissa Raza DO Signed By: <Electronically signed by Carissa Raza DO in OV> 08/22/24 1348 DD/ 0908 TD/TT: 08/22/24 1042 Stone Decorator: us [facility] External Provider IMG US PROCEDURES Final [...] HPV nRNA E6/E7 Not Detected Not Detected [facility] Comment:Methodology: Transcr iption-Mediated AmplificationThis assay detects E6/E7 viral messenger RNA (mRNA) from 14high-risk HPV types (16,18,31,33,35,39,45,51,52,56,58,59,66,68).Cervical sources are required for HPV testing.If a vaginal source from a patient who has had atotal hysterectomy with removal of cervix wassubmitted, please contact the testing laboratoryfor alternative testing options.For additional information, please refer tohttp://education.[employer]/faq/AKP735l5(This link if provided for information/educational purposes only.)THIS TEST WAS PERFORMED AT:[employer] [place] [phone] FISCHER MD SOURCE: SEE NOTE [facility] Comment:None given Report Status: TNP [facility] Clinical Information: SEE NOTE [facility] Comment:None given LMP: SEE NOTE [facility] Comment:NONE GIVEN Prev. PAP: SEE NOTE [facility] Comment:NONE GIVEN Prev. BX: SEE NOTE [facility] Comment:NONE GIVEN Statement Of Adequacy: SEE NOTE [facility] Comment:Satisfactory for tiffany luation.Endocervical/transformation zone componentpresent. General Categorization: [facility] Interpretation/Result: SEE NOTE [facility] Comment:Cytology Results: Ne gative for intraepitheliallesion or malignancy. Cytology Comment SEE NOTE [facility] Comment:This Pap test has be en evaluated with computerassisted technology. Incident Coordinator: SEE NOTE [facility] Comment:YP, CT(ASCP)CT scree gino location: [address] [address] Review Incident Coordinator: [facility] Pathologist [facility] PAP Infection [facility] See Note SEE NOTE [facility] Comment:EXPLANATORY NOTE:The Pap is a screening test for cervical cancer. It isnot a diagnostic test and is subject to false negativeand false positive results. It is most reliable when asatisfactory sample, regularly obtained, is submittedwith relevant clinical findings and history, and whenthe Pap result is evaluated along with historic andcurrent clinical information. 10/25/2023 10/25/2023 Narrative [facility] - 11/01/2023 12:30 PM EDT SEE SCANNED RESULTS IN EMR us Lou Gonzalez MD LAB PATHOLOGY ORDERABLES Ashlyn orlando Result [facility] [address] [place] [address] [phone] * Hepatitis Panel, General (01/13/2023 9:50 AM EST) Hepatitis A IgM Nonreactive Nonreactive [facility] Comment:IgM antibodies to RUELAS V not detected; does not exclude earlyacute or recovered HAV infection. ~Hepatitis B Surface Antibody NONREACTIVE Nonreactive [facility] Comment:Nonreactive: < 8.00 mIU/mL Hepatitis B Core Antibody Nonreactive Nonreactive [facility] Hepatitis C Antibody Nonreactive Nonreactive [facility] Comment:Antibodies to HCV no t detected; does not exclude early acuteHCV infection. Hepatitis B Surface Ag Negative Negative [facility] 01/13/2023 9:50 AM EST 01/13/2023 9:52 AM EST us Generic External Data Provider LAB BLOOD ORDERAB LES Final Result [facility] [address] [place] [address] [phone] * (ABNORMAL) LIPID PANEL, STANDARD (08/04/2021 9:06 AM EDT) Chol/HDLC Ratio 4.9 <5.0 (calc) [facility] Cholesterol, Total 236(H) <200 mg/dL [facility] HDL Cholesterol 48(L) > OR = 50 mg/dL [facility] LDL Cholesterol 155(H) mg/dL (calc) [facility] Comment: Reference range: <100 Desirable range <100 mg/dL for primary prevention; <70 mg/dL for patients with CHD or diabetic patients with > or = 2 CHD risk factors. LDL-C is now calculated using the Esteban-Randall calculation, which is a validated novel method providing better accuracy than the Friedewald equation in the estimation of LDL-C. Esteban SS et al. NIC. 2013;310(19): 8105-3921 (http://education.[employer].Aramsco/faq/QRS997) Non-HDL Cholesterol 188(H) <130 mg/dL (calc) [facility] Comment: For patients with diabetes plus 1 major ASCVD risk factor, treating to a non-HDL-C goal of <100 mg/dL (LDL-C of <70 mg/dL) is considered a therapeutic option. Triglycerides 189(H) <150 mg/dL [facility] 08/04/2021 9:06 AM EDT us Giana Isbell MD LAB BLOOD ORDERABLES Final Result [facility] [address] [place] [address], * Hm Colonoscopy (12/02/2015) Colonoscopy Normal Normal Narrative Lily Sanchez 12/02/2015 Recommended 10 year follow up us Historical Provider HEALTH MAINTENANCE Final Result from Last 3 Months or Most Recently Relevant to Health Maintenance Insurance [facility] [address] [facility] Care Teams Departmental Shipping Clerk Relationship Specialty Start Date End Date Giana Isbell MD [address] [place] [address] [place] [id number] PCP - General Internal Medicine 09/07/18
--- OUTSIDE RECORDS SUMMARY | 2024-10-24 16:45 | XMS_ITS | Encounter Summary ---
Author Organization [employer] Address [address] [facility] [address] [place] [address] Care Team Providers Care Inclinometer Tester Name Role Phone Giana Isbell MD Primary Care Provider [phone] Reason for Visit * Reason Onset Date Comments Nurse Triage 03/01/2023 Encounter Details Date Type Department Care Team ([facility] st Contact Info) Description 03/01/2023 Telephone [facility] MEDICINE [address] [place] [address] Giana Isbell MD [address] [place] [address] Nurse Triage Social History Tobacco Use Types [...] 03/01/2023 12:46 PM EST Triage call with [employer] Console Operator ID [id number] Pt reports having surgery and not having any pain medication. Pt had a partial left thyroidectomy 02/28/23 @ [facility] and oxycodone 5mg po was ordered . Prescription was sent to [facility] pharmacy. Pt was not aware of that [...] Time PHQ-9 Depression Total Score: 7 07/30/19 10:13 AM EDT documented as of this encounter Care Teams Inclinometer Tester Relationship Specialty Start Date End Date Giana Isbell MD [address] [place] [phone] PCP - General Internal Medicine 09/07/18 documented as of this encounter
== END 2024-10-24 13:08 | disposition home or self-care (01) ==
LOC: HO.XRAY 13:07
PROVIDERS: PCP Internal Medicine; Visit Provider Nurse Practitioner Family
DX: M54.50 Low back pain, unspecified (principal)
CPT/HCPCS: 72100

== ENCOUNTER → 2024-10-24 13:13 | Outpatient (BNV) | payer OTHER, SELFPAY | PROVIDERS: PCP Internal Medicine; Visit Provider Radiology Diagnostic Radiology | DX: M54.50 Low back pain, unspecified (principal) | CPT/HCPCS: 72100 ==

== ENCOUNTER → 2024-11-15 10:37 | Outpatient (REF) | payer OTHER, SELFPAY ==
--- NOTE | 2024-11-15 10:40 | CA_ITS ---
Transthoracic Echocardiogram Patient (Last, First, Middle): Tory Bush, Gender: Female Date of : 1965 Age: 59 Procedure Date: 11/15/2024 Procedure Type: Transthoracic Echocardiogram Location: OP Height: 152.4 cm Weight: 61.01 kg BSA: 1.58 m2 Heart Rate: bpm BP: 110 / 70 mmHg Industrial Hire Sales Assistant: TO Referring MD: Rhona Badillo MD Customer Service Associate: Kavon Berumen MD Symptoms: Chemotherapy adverse effects, evaluate EF Study Quality: Adequate ECG Rhythm: Sinus Conclusions: - Normal LV systolic function Findings Left Ventricle Normal left ventricular size, thickness, and systolic function. The visually estimated ejection fraction is between 55-60%. Spectral Doppler is indicative of an impaired relaxation filling pattern. E/E prime ratio is <8, consistent with normal filling pressures. Peak GLS is -18.2% within normal limits. Prior Study Comparison No significant change compared to prior study dated: 06/22/2024. Measurements 2D Linear Measurements IVSd: 0.77 0.6-0.9/0.6-1.0 cm LVIDd: 4.27 3.9-5.3/4.2-5.9 cm LVIDd Index: 2.70 2.4-3.2/2.2-3.1 cm/m2 LVIDs: 2.96 2.0-3.6 cm LVPWd: 0.71 0.7-1.1 cm LV Mass: 116.85 67-162/88-224 g LV Mass Index: 73.95 43-95/49-115 g/m2 LVOT Diam: 2.00 3.0+(-)1.3 cm 2D Systolic Function EF 4C: 57.90 >55% EF 2C: 55.40 >55% EF BiP: 55.30 >55% Mitral Valve MV Pk E: 0.72 MV PK A: 0.85 MV Decel Time: 191.00 E/A: 0.90 E'Lateral: 9.46 E'Medial: 6.20 E/E' Med: 11.70 E/E' Lat: 7.70 PHT: 56.00 MVA PHT: 3.93 Decel [place]: 3.79 LVOT LVOT Pk Josh: 1.19 LVOT Mn Josh: 0.76 LVOT VTI: 0.24 LVOT Pk Grad: 6.00 LVOT Mn Grad: 3.00 LVOT Diam: 2.00 LVOT Area: 3.14 Diastolic Function MV Pk E: 0.72 MV Pk A: 0.85 E/A: 0.90 E'Medial: 6.20 E/E' Med: 11.70 E' Laterial: 9.46 E/E' Lat: 7.70 Tricuspid Valve RA Press: 3.00 Updated in Other Vendor System with Status of Final Kavon Berumen MD electronically signed on 11/15/2024 5:09:57 PM with status of Final
== END ==
LOC: HO.CARD 10:37
PROVIDERS: PCP Internal Medicine; Visit Provider Internal Medicine
DX: C50.911 Malignant neoplasm of unspecified site of right female breast (principal); T45.1X5A Adverse effect of antineoplastic and immunosuppressive drugs, initial encounter
CPT/HCPCS: 93308

== ENCOUNTER → 2024-11-15 10:40 | Outpatient (BNV) | payer OTHER, SELFPAY | PROVIDERS: PCP Internal Medicine; Visit Provider Internal Medicine Cardiovascular Disease | DX: Z51.81 Encounter for therapeutic drug level monitoring (principal); T45.1X5A Adverse effect of antineoplastic and immunosuppressive drugs, initial encounter | CPT/HCPCS: 93308; 93321; 93356 ==

== ENCOUNTER 2024-11-23 16:06 | Outpatient (REF) | payer OTHER, SELFPAY ==
--- OUTSIDE RECORDS SUMMARY | 2024-11-23 15:45 | XMS_ITS | Encounter Summary ---
Author Organization [employer] Address [address] [place] [address] 7t [place] [address] Care Team Providers Care Orthodontic Assistant Name Role Phone Giana Isbell MD Primary Care Provider [phone] Reason for Referral * Medications - Closed Specialty Diagnoses / Procedures Referred By Ervin chávez Referred To Contact Diagnoses Acute midline low back pain without sciatica Giana Isbell MD [address] [place] [address] Phone: tel: fax: Referral ID Status Reason Start Date Expiration Date Visits Re quested Visits Authorized [id number] Closed 1 1 Encounter Details Date Type Department Care Team ([facility] st Contact Info) Description 11/23/2024 3:45 PM EDT Office Visit [facility] [address] [place] [address] Giana Isbell MD [address] [place] [address] Other constipation (Primary Dx); Acute midline low back pain without sciatica Social History Tobacco Use Types Packs/Day Years [...] Sign Reading Time Taken Comments Blood Pressure 120/80 11/23/2024 3:36 PM EDT Pulse 88 11/23/2024 3:36 PM EDT Temperature - - Respiratory Rate 20 11/23/2024 3:36 PM EDT Oxygen Saturation 98% 11/23/2024 3:36 PM EDT Inhaled Oxygen Concentration - - Weight 61.2 kg (135 lb) 11/23/2024 3:36 PM EDT Height 152.4 cm (5') 11/23/2024 3:36 PM EDT Body Mass Index 26.37 11/23/2024 3:36 PM EDT documented in this encounter Plan of Treatment Scheduled Orders Name Type Priority Associated Diagnoses Orde r Schedule XR KUB and Upright 2 Views Imaging Routine Other constipation Expected: 11/23/2024, Expires: 11/23/2025 XR Lumbar Spine Complete 4+ Views Imaging Routine Acute midline low back pain without sciatica Expected: 11/23/2024, Expires: 11/23/2025 Comprehensive Metabolic Panel Lab Routine Other constipation Acute midline low back pain without sciatica Expected: 11/23/2024 (Approximate), Expires: 11/23/2025 documented as of this encounter Visit Diagnoses Diagnosis Other constipation- Primary Acute midline low back pain without sciatica documented in this encounter Additional Health Concerns Assessment Noted Time PHQ-9 Depression Total Score: 24 025 9:26 AM EST documented as of this encounter Care Teams Orthodontic Assistant Relationship Specialty Start Date End Date Giana Isbell MD [address] [place] [address] PCP - General Internal Medicine 09/07/18 documented as of this encounter
--- OUTSIDE RECORDS SUMMARY | 2024-11-23 18:21 | XMS_ITS | Encounter Summary ---
Author Organization [employer] Address [address] [facility] 7t [place] [address] Care Team Providers Care Computer Builder Name Role Phone Giana Isbell MD Primary Care Provider [phone] Encounter Details Date Type Department Care Team ([facility] st Contact Info) Description 07/19/2024 Orders Only [facility] [address] [place] [address] Giana Isbell MD [address] [place] [address] Migraine with aura and without status migrainosus, [...] documented as of this encounter Care Teams Computer Builder Relationship Specialty Start Date End Date Giana Isbell MD [address] [place] [address] PCP - General Internal Medicine 09/07/18 documented as of this encounter
--- OUTSIDE RECORDS SUMMARY | 2024-11-23 18:21 | XMS_ITS | Encounter Summary ---
Author Organization [employer] Address [address] [facility] [address]t [place] [address] Care Team Providers Care Neon Molder Name Role Phone Giana Isbell MD Primary Care Provider [phone] Encounter Details Date Type Department Care Team ([facility] st Contact Info) Description 05/06/2023 Orders Only [facility] & PEDS [address] [place] [address] Giana Isbell MD [address] [place] [address] Acquired hypothyroidism (Primary Dx) Social History Tobacco [...] T4 10.06(H) 0.32 - 4.0 uIU/mL [facility] Blood Venous blood specimen / Unknown 02/06/2024 10:45 AM EST 02/06/2024 10:45 AM EST Giana Isbell MD LAB BLOOD ORDERABLES Final Result [facility] [address] [place] [address] [phone] documented in this encounter Visit Diagnoses Diagnosis Acquired hypothyroidism- Primary Unspecified hypothyroidism documented in this encounter Additional Health Concerns Assessment Noted Time PHQ-9 Depression Total Score: 7 07/30/19 23 10:13 AM EDT documented as of this encounter Care Teams Neon Molder Relationship Specialty Start Date End Date Giana Isbell MD [address] [place] [address] PCP - General Internal Medicine 09/07/18 documented as of this encounter
--- OUTSIDE RECORDS SUMMARY | 2024-11-23 18:21 | XMS_ITS | Data Portability ---
Author Organization [email or web address], [facility]iajie [facility] Address [address] [place] [address] Care Team Providers Care Blanket Weaver Name Role Phone Unavailable Referring Provider [phone] [facility] Referring Provider Assessment Encounter Date Assessment Date Assessment LastModified by Organization Details LastModified Time 10/02/2021 10/02/2021 I have reviewed and agree with the Assessment and Plan as documented by the Net Technical Architect. I provided real -time medical direction via phone for this encounter, and was available for additional phone based assistance as needed. Patient given the opportunity to ask questions. [email or web address] Not available 10/02/2021 19:13:58 04/13/2023 04/13/2023 Ms. Tory Cantrell is a 57yoF who is seen today for further evaluation of right eye irritation. Ms. Cantrell reports three days of right eye itching and watering. She denies any fevers but reports that her left eye is starting to also itch and she has some minimal right ear discomfort. Otherwise has been feeling well. VSS. Net Technical Architect site uploads picture of minimally injected and tearing right eye. Exam is c/w viral conjunctivitis . Recommended ongoing OTC therapies and cool compress/hand hygeine. Red flags to be reviewed by firefighter marine. Not available 04/13/2023 10:45:55 Plan of Treatment [...] 161 RxNorm Not Available [facility] - production 4 03:43:36 889 Product containin g penicilli n (product) medicatio n Not available Not available Not available 10/02/2021 74717 8001 SNOMED Not Available [facility] - production 03:43:36 890 hydrocodo ne Not available Not available Not available Not available 10/02/2021 5489 RxNorm Cynthia Maguire MD [address] [facility],[address], [place], [address] [place] [address] [employer] 18:39:23 Medications Name Sig Start Date Stop [...] % 98 % 88 /min 18 /min 06380.8 8 g 97.6 [degF] 124/76 mm[Hg] Not Available [facility] - Oxatis 4 10:39:50 Date Recorded Body weight Provider Name an d Address Organization Details Last Updated DateTime 10/02/2021 02877.01 g Shravan Mallory [address] [facility],[address] [place], [address], [place] - [employer] 10/02/2021 18:45:32 Date Recorded Body temperature Heart [...] /min 120/70 mm[Hg] 120/70 mm[Hg] Not Available [employer] With [employer] - production 17:37:54 Social History None recorded. Functional Status None recorded. Mental Status None recorded. Family History Nothing Reported. Medical History No medical history recorded. Gynecological HistoryNo gynecological history recorded. Obstetrics History GPAL:G 0 P 0 0 0 0 Past Encounters Encounter ID Performer Location Encounter Start Date Encounter Closed Date Diagnosis/Indication Diagnosis SNOMED-CT Code Diagnosis ICD10 Code Diagnosis IMO Codes Diagnosis Note [id number] Cynthia Maguire MD [facility] - [facility] [address] [place] [phone] 10/02/2021 16:58:56 10/21/2021 11:37:50 Pain of right heel 7061132885 810344 M79.671 possible plantar fasciitis- vs talar tendonitis [...] am Delilah Hope MD Main - [facility] [address] [place] [phone] 04/13/2023 10:39:45 04/14/2023 09:54:22 Viral conjunctivitis 17282243 B30.9 Health Concerns Section Related Observation LastModified by Organization Detai ls LastModified Time None Recorded Concern Status LastModified by Organization Details LastModified Time None Recorded Advance Directives Directive None Recorded Payers Insurance Date Sequence Insurance Name Policy Number Policy Pastor Covered Member ID Pastor Member ID Guarantor Name 04/03/2023 1 [facility] - DOS PRIOR TO 2022 - DUAL ELIGIBLE (MEDICARE REPLACEMENT/ADV ANTAGE - HMO) Tory Cantrell [id number] Tory Cantrell 04/14/2023 1 One Touch EMRAneumed - DOS ON OR AFTER 2022 - DUAL ELIGIBLE - CARE HOME OPTIONS AND ONE CARE (MEDICARE REPLACEMENT/ADV ANTAGE - HMO) Tory Cantrell [id number] Tory Cantrell Notes Date Note Type Note [...] .................. .................. .................. .................. .................. .................. ............... Net Technical Architect Note: Eval for right heel pain. pt stated she has had right heel pain for about 1 month, getting worse lately. Pt states she has appointment with ortho on Tuesday- pt has HX of tendon surgeries and chronic pain. pt states pain is bottom of heel, with discomfort generalized around ankle. no other new pain. pt denied fever/chills, denied sob/cp. [facility] recommended ice, elevate and we gave 15mg toradol for temp relief of pain. pt to follow up with pcp .................. .................. .................. .................. .................. .................. .................. ............... Disposition: FulfilledSEGMD: As above- hx chronic pain- On Naprosyn 500 mg q AM- denies hx CKD- not on anticoagulants- denies numbness/ tingling- worse w/ palpation/ ambulation/ WB Cynthia Maguire MD [address] [place] [address],[address], [place], [address], [facility] - [employer] 10/03/2021 17:32:32 04/13/2023 text/html HPI: HX Depression,migrain es. Three day history of eye irritation redness with drainage. No fever.slight ear discomfort. .................. .................. .................. .................. .................. .................. .................. ............... CRC Nurse Triage Notes (Yvette Guerra): Comments: HPI reviewed. No further information reviewed to process visit. .................. .................. .................. .................. .................. .................. .................. ............... Net Technical Architect Note From Devan Brown: Pt co irrigation [...] Pt education on signs indicating the ER. Net Technical Architect Allergies: Acetaminophen, Penicillin .................. .................. .................. .................. .................. .................. .................. ............... Disposition: Fulfilled Delilah Hope MD [address] [facility],[address], [place], [address], [employer] [facility] [employer] 04/13/2023 16:03:59 OBGyn Episode No OBEpisode recorded.
--- OUTSIDE RECORDS SUMMARY | 2024-11-23 18:21 | XMS_ITS | Encounter Summary ---
Author Organization [employer] Address [address] [facility] [address] [place] [address] Care Team Providers Care Church Musician Name Role Phone Giana Isbell MD Primary Care Provider [phone] Encounter Details Date Type Department Care Team ([facility] st Contact Info) Description 02/06/2024 Orders Only [facility] & PEDS [address] [place] [address] Giana Isbell MD [address] [place] [address] Acquired hypothyroidism (Primary Dx) Social History Tobacco [...] AM EST Narrative 02/10/2024 3:39 PM EST [place] [id number] Magnetic Resonance Report Signed with Fani Patient: Tory Bush MR#: [id number] : 1965 Acct:[id number] Age/Sex: 58 / F ADM Date: 02/06/24 Loc: HO.MRI Attending Dr: Pardeep Marcos MD Ordering Physician: Pardeep Macros MD Date of Service: 02/06/24 Procedure(s): MR breast BI wo/w con Accession Number(s): [id number] cc: Giana Isbell MD; Pardeep Marcos MD [...] 02/10/24 1536 DD/ 0933 TD/TT: 02/06/24 1016 Ring Maker: Procedure Note Donotuseinterpreter, Image - 02/13/[address] [address] Magnetic Resonance Report Signed with Addenda Patient: Pat Bush#: [id number] : 1965Acct:[id number] Age/Sex: 58 / FADM Date: 02/06/24 Loc: HO.MRI Attending Dr: Pardeep Marcos MD Ordering Physician: Pardeep Marcos MD Date of Service: 02/06/24 Procedure(s): MR breast BI wo/w con Accession Number(s): [id number] cc: Giana Isbell MD; Pardeep Marcos MD [...] 02/10/24 1536 DD/ 0933 TD/TT: 02/06/24 1016 Ring Maker: [facility] External Provider IMG MRI PROCEDURES Edited Result - Final documented in this encounter Visit Diagnoses Diagnosis Acquired hypothyroidism- Primary Unspecified hypothyroidism documented in this encounter Additional Health Concerns Assessment Noted Time PHQ-9 Depression Total Score: 7 07/30/19 23 10:13 AM EDT documented as of this encounter Care Teams Church Musician Relationship Specialty Start Date End Date Giana Isbell MD [address] [place] [address] PCP - General Internal Medicine 09/07/18 documented as of this encounter
--- OUTSIDE RECORDS SUMMARY | 2024-11-23 18:21 | XMS_ITS | Encounter Summary ---
Author Organization [employer] Address [address] [facility] 7[address] [place] [address] Care Team Providers Care Glassware Defect Repairer Name Role Phone Giana Isbell MD Primary Care Provider [phone] Reason for Visit * Reason Onset Date Comments Nurse Triage 08/02/2023 Encounter Details Date Type Department Care Team ([facility] Contact Info) Description 08/02/2023 Telephone [facility] MED & PEDS [address] [place] [address] Giana Isbell MD [address] [place] [address] Nurse Triage Social History Tobacco Use Types [...] the past 12 months, has t he [employer], [employer], oil or water [employer] threatened to shut off services in your [...] 08/02/2023 10:38 AM EDT Triage call with [employer] [address] [employer] [place] [id number] Pt reports a small lump in the corner of lower left eye lid. Pt reports it is red, itchy, painful. This doesn't effect vision and Pt has never had this before. Pt has had this for more than a week and it is increasing in size. No available apts ion [facility] . Pt is advised to come to [facility] to be seen by provider and [...] documented as of this encounter Care Teams Glassware Defect Repairer Relationship Specialty Start Date End Date Giana Isbell MD [address] [place] [address] PCP - General Internal Medicine 09/07/18 documented as of this encounter
--- OUTSIDE RECORDS SUMMARY | 2024-11-23 18:21 | XMS_ITS | Encounter Summary ---
Author Organization [employer] Address [address] [facility] [address] [place] [address] Care Team Providers Care Manager Of Marketing Name Role Phone Giana Isbell MD Primary Care Provider [phone] Reason for Visit * Reason Comments Med Refill Encounter Details Date Type Department Care Team ([facility] st Contact Info) Description 07/20/2024 Refill [facility] MED & PEDS [address] [place] [address] Giana Isbell MD [address] [place] [address] Social History Tobacco Use Types Packs/Day Years [...] as of this encounter Care Teams Manager Of Marketing Relationship Specialty Start Date End Date Giana Isbell MD [address] [place] [address] PCP - General Internal Medicine 09/07/18 documented as of this encounter
--- OUTSIDE RECORDS SUMMARY | 2024-11-23 18:21 | XMS_ITS | Clinical Summary ---
Author Organization [facility] Address [address] [place] [address] Phone Care Team Providers Care Audio Visual Facilities Engineer Name Role Phone Unknown, Unknown Primary Care [...] Encounters Date Type Department Care Team Description 11/05/2024 12:00 PM EDT Office Visit [facility] Rad Onc [address] [place] [address] 45[address] Liz Mata MD Malignant neoplasm of upper-outer quadrant of right breast in female, estrogen receptor positive (Primary Dx) 11/05/2024 Telephone [facility] Onc [address] [place] [address] Liz Mata MD PreAut 11/05/2024 Documentation [facility] Onc [address] [place] [address] Macrina Bishop, JESSICA 09/28/2024 1:00 PM EDT Office Visit [facility] Rad Onc [address] [place] [address] Liz Mata MD Miranda-Leon, Wisinley Malignant neoplasm of upper-outer quadrant of right breast in female, estrogen receptor positive (Primary Dx) 09/10/2024 Ancillary Orders [facility] [address] [place] [address] Unknown, Liz, 09/10/2024 Ancillary Orders [facility] [address] [place] [address] Unknown, Unknown, 09/10/2024 Ancillary Orders [facility] [address] [place] [address] Unknown, Unknown, 09/10/2024 Ancillary Orders [facility] [address] [place] [address] Unknown, Unknown, 09/10/2024 Ancillary Orders [facility] [address] [place] [address] Unknown, Unknown, 09/10/2024 Ancillary Orders [facility] [address] [place] [address] Unknown, Unknown, 09/10/2024 Ancillary Orders [facility] [address] [place] [address] Unknown, Unknown, 09/10/2024 Ancillary Orders [facility] [address] [place] [address] Unknown, Unknown, 09/10/2024 Ancillary Orders [facility] [address] [place] [address] Unknown, Liz, 09/10/2024 Ancillary Orders [facility] [address] [place] [address] Unknown, Liz, 09/10/2024 Ancillary Orders [facility] [address] [place] [address] Unknown, Liz, 08/27/2024 12:15 AM EDT - 08/27/2024 11:59 PM EDT Hospital Encounter [facility] [address] [place] [address] Unknown, MD Liz Discharge Disposition: Home or Self Care 08/27/2024 12:10 AM EDT - 08/27/2024 12:14 AM EDT Hospital Encounter [facility] [address] [place] [address] Unknown, MD Liz Discharge Disposition: Home or Self Care 08/27/2024 12:05 AM EDT - 08/27/2024 12:09 AM EDT Hospital Encounter [facility] [address] [place] [address] Unknown, Liz, Discharge Disposition: Home or Self Care 08/27/2024 - 08/27/2024 12:04 AM EDT Hospital Encounter [facility] [address] [place] [address] Unknown, Unknown, Discharge Disposition: Home or Self [...] Care Team (Late st Contact Info) Description 11/30/2024 3:40 PM EDT Office Visit [facility] Rad Onc [address] [place] [address] Liz Mata MD [address] [place] [address] 12/03/2024 3:20 PM EDT Treatment [facility] Onc [address] [place] [address] Edita Coelho [address] [place] [address] 12/04/2024 2:20 PM EDT Treatment [facility] Rad Onc [address] [place] [address] 12/05/2024 2:20 PM EDT Treatment [facility] Onc [address] [place] [address] 12/06/2024 2:20 PM EDT Treatment [facility] Rad Onc [address] [place] [address] 12/07/2024 2:20 PM EDT Treatment [facility] Onc [address] [place] [address] 12/10/2024 2:20 PM EST Treatment [facility] Onc [address] [place] [address] 12/11/2024 2:20 PM EST Treatment [facility] Onc [address] [place] [address] 101[address] 12/12/2024 2:20 PM EST Treatment [facility] Rad Onc [address] [place] [address] 12/13/2024 2:20 PM EST Treatment [facility] Onc [address] [place] [address] 12/14/2024 2:20 PM EST Treatment [facility] Onc [address] [place] [address] 12/17/2024 2:20 PM EST Treatment [facility] Onc [address] [place] [address] 12/18/2024 2:20 PM EST Treatment [facility] Rad Onc [address] [place] [address] 85[address] 12/19/2024 2:30 PM EST Treatment [facility] Rad Onc [address] [place] [address] Liz Mata MD [address] [place] [address] [email or web address] 12/20/2024 2:20 PM EST Treatment [facility] Rad Onc [address] [place] [address] 04[address] 12/21/2024 2:20 PM EST Treatment [facility] Rad Onc [address] [place] [address] 075[address] 12/24/2024 2:20 PM EST Treatment [facility] Rad Onc [address] [place] [address] 45[address] 12/25/2024 2:20 PM EST Treatment [facility] Rad Onc [address] [place] [address]36[address] 12/26/2024 2:20 PM EST Treatment [facility] Rad Onc [address] [place] [address] 12/27/2024 2:20 PM EST Treatment [facility] Rad Onc [address] [place] [address] 12/28/2024 2:20 PM EST Treatment [facility] Rad Onc [address] [place] [address] 12/31/2024 2:20 PM EST Treatment [facility] Rad Onc [address] [place] [address] 25[address] 01/01/2025 2:20 PM EST Treatment [facility] Rad Onc [address] [place] [address] 01/02/2025 2:20 PM EST Treatment [facility] Rad Onc [address] [place] [address] 01/07/2025 2:20 PM EST Treatment [facility] Rad Onc [address] [place] [address] 01/08/2025 2:20 PM EST Treatment [facility] Rad Onc [address] [place] [address] Health Maintenance Due Date Last Done Comments TSH LEVEL 1965 DEPRESSION SCREENING 1977 HEPATITIS C SCREENING 06/02/1983 HIV ONE-TIME SCREENING (18-65 YEARS) 06/02/1983 PNEUMOCOCCAL VACCINES (50+ years) (1 of 2 - PCV) 1984 ZOSTER VACCINES (1 of 2) 1984 PAP SMEAR 1986 SCREENING FOR DIABETES 2000 COLOGUARD 2010 COLONOSCOPY 2010 COLORECTAL CANCER SCREENING 2010 FIT TEST 2010 FOBT 2010 SIGMOIDOSCOPY 2010 VIRTUAL COLONOSCOPY 2010 INFLUENZA VACCINE (#1) 2024 COVID-19 VACCINE ( - 2024- season) 2024 LIPID PANEL 08/04/2026 08/04/2021 MAMMOGRAM 08/22/2026 08/22/2024, 08/07, 02/22/2024, Additional history exists Adult Td,Tdap Booster 09/22/2031 09/21/2021 RSV VACCINE (1 - 1-dose 75+ series) 2040 SMOKING STATUS SCREENING (Once After 26 Yrs) [...] INTERPRETATION) Routine 08/27/2024 12:00 AM EDT BI MAMMOGRAM OUTSIDE (NO INTERPRETATION) Routine 08/22/2024 12:00 AM EDT from Last 3 Months or Most Recently Relevant to Health Maintenance Results * NM Other Outside (No Interpretation) [...] ERPRETATION Final Result from Last 3 Months or Most Recently Relevant to Health Maintenance Insurance CARE MEDICARE REPLACEMENT MEDICARE REPLACEMENT Care Teams Audio Visual Facilities Engineer Relationship Specialty Start Date End Date Unknown, Unknown, PCP - General 03/18/17 Additional Source Comments The information contained in this document represents components of the legal health record. It is not the complete legal health record.[facility]
--- OUTSIDE RECORDS SUMMARY | 2024-11-23 18:21 | XMS_ITS | Encounter Summary ---
Author Organization [employer] Address [address] [facility] [address] [place] [address] Care Team Providers Care Swatch Paster Name Role Phone Giana Isbell MD Primary Care Provider [phone] Reason for Referral * Consultation (Routine) - Closed Specialty Diagnoses / Procedures Referred By Contac t Referred To Contact Cardiology Diagnoses SOB (shortness of breath) Giana Isbell MD [address] [place] [address] Phone: tel: fax: Kavon Berumen MD [address] [facility] Floor [address] [place] [address] Phone: tel: fax: Referral ID Status Reason Start Date Expiration Date V isits Requested Visits Authorized [id number] Closed Specialty Services Required 12/19/2023 12/18/2024 1 1 Encounter Details Date Type Department Care Team (Late st Contact Info) Description 12/19/2023 Orders Only [facility] [address] [place] [address] Giana Isbell MD [address] [place], [place] [phone] SOB (shortness of breath) (Primary Dx) Social [...] EST Narrative 01/18/2024 9:40 AM EST [place] [facility]'s [address] [place] [address] Ultrasound Report Signed with Addenda Patient: Tory Bush MR#: [id number] : 1965 Acct:[id number] Age/Sex: 58 / F ADM Date: 01/18/24 Loc: HO.MAMMO Attending Dr: Pardeep Marcos MD Ordering Physician: Pardeep Marcos MD Date of Service: 01/18/24 Procedure(s): US breast ndl core biopsy RT Accession Number(s): [id number] cc: Giana Isbell MD; Pardeep Marcos MD [...] OV> 01/18/2437 DD/ 9 TD/TT: 01/18/24 0835 Director Of Marketing: Procedure Note Donotuseinterpreter, Image - 01/25/2024 [facility]'s [address] [place], [place] [address] Ultrasound Report Signed with Fani Patient: Pat Bush#: [id number] : 1965Acct:[id number] Age/Sex: 58 / FADM Date: 01/18/24 Loc: JOEO Attending Dr: Pardeep Marcos MD Ordering Physician: Pardeep Marcos MD Date of Service: 01/18/24 Procedure(s): US breast ndl core biopsy RT Accession Number(s): [id number] cc: Giana Isbell MD; Pardeep Marcos MD [...] in OV> 01/18/24936 DD/ 9 TD/TT: 01/18/24834 Director Of Marketing: us [facility] External Provider IMG US PROCEDURES Edited Result - Final * BI Mammogram Diagnostic Tomosynthesis Right (01/18/2024 8:00 AM EST) Anatomical Region Laterality Modality Breast Right Mammography 01/18/2024 8:00 AM EST Narrative 01/18/2024 9:40 AM EST [address] [place] [address] Mammography Report Signed with Addenda Patient: Tory Bush MR#: [id number] : 1965 Acct:[id number] Age/Sex: 58 / F ADM Date: 01/18/24 Loc: ADELITA Attending Dr: Pardeep Marcos MD Ordering Physician: Pardeep Marcos MD Results: Date of Service: 01/18/24 Follow Up: Procedure(s): MM tomosynthesis diagnostic RT Accession Number(s): [id number] cc: Giana Isbell MD; Pardeep Marcos MD [...] by: Carissa Raza DO 01/18/2024 09:37 AM [facility] Dictated By: Carissa Raza DO Signed By: <Electronically signed by Carissa Raza DO in OV> 01/18/24 0937 DD/ 0800 TD/TT: 01/18/24 0835 Director Of Marketing: Procedure Note Donotuseinterpreter, Image - 01/25/2024 [facility] [address] [place] [address] [place] [address] Mammography Report Signed with Fani Patient: Pat Bush#: [id number] : 1965Acct:[id number] Age/Sex: 58 / FADM Date: 01/18/24 Loc: HO.MAMMO Attending Dr: Pardeep Marcos MD Ordering Physician: Pardeep Marcos MDResults: Date of Service: 01/18/24Follow Up: Procedure(s): MM tomosynthesis diagnostic RT Accession Number(s): [id number] cc: Giana Isbell MD; Pardeep Marcos MD ADDENDUM ADDENDUM #1 ADDENDUM: Right breast biopsy at 9:00 results invasive ductal carcinoma. Results are malignant and concordant. Recommend breast surgical consultation for excision and further management. The patient is under the care of a breast surgeon for further management. OVERALL ASSESSMENT: BI-RADS 6 - Known biopsy proven malignancy RECOMMENDATION: Surgical Consult Electronically signed by: Carissa aRza DO 01/25/2024 08:54 AM EST Addendum Dictated [...] OV> 01/18/2437 DD/ 0800 TD/TT: 01/18/24 0835 Director Of Marketing: [facility] External Provider IMG BI PROCEDURES Edited Result - Final documented in this encounter Visit Diagnoses Diagnosis SOB (shortness of breath)- Primary Shortness of breath documented in this encounter Additional Health Concerns Assessment Noted Time PHQ-9 Depression Total Score: 7 07/30/19 23 10:13 AM EDT documented as of this encounter Care Teams Swatch Paster Relationship Specialty Start Date End Date Giana Isbell MD [address] [place] [address] PCP - General Internal Medicine 09/07/18 documented as of this encounter
--- OUTSIDE RECORDS SUMMARY | 2024-11-23 18:22 | XMS_ITS | Encounter Summary ---
Author Organization [employer] Address [address] [facility] 7t [place] [address] Care Team Providers Care Tree Pruner Name Role Phone Giana Isbell MD Primary Care Provider [phone] Encounter Details Date Type Department Care Team (Latest Contact Info) Description 12/04/2021 Abstract [facility] CONVERSIONS Dental, Provider, DDS Social History [...] on filedocumented in this encounter Care Teams Tree Pruner Relationship Specialty Start Date End Date Giana Isbell MD [address] [place] [address] PCP - General Internal Medicine 09/07/18 documented as of this encounter
--- OUTSIDE RECORDS SUMMARY | 2024-11-23 18:22 | XMS_ITS | Encounter Summary ---
Author Organization [employer] Address [address] [facility] [facility] [address] 7t [place] [address] Care Team Providers Care Chef De Froid Name Role Phone Giana Isbell MD Primary Care Provider [phone] Encounter Details Date Type Department Care Team ([facility] st Contact Info) Description 04/05/2023 Telephone [facility] MEDICINE [address] [place] [address] Giana Isbell MD [address] [place], [place] [phone] Social History Tobacco Use Types Packs/Day Years [...] documented as of this encounter Care Teams Chef De Froid Relationship Specialty Start Date End Date Giana Isbell MD [address] [place] [address] PCP - General Internal Medicine 09/07/18 documented as of this encounter
--- OUTSIDE RECORDS SUMMARY | 2024-11-23 18:22 | XMS_ITS | Encounter Summary ---
Author Organization [employer] Address [address] [facility] 7t [place] [address] Care Team Providers Care Manager Spanish Name Role Phone Giana Isbell MD Primary Care Provider [phone] Encounter Details Date Type Department Care Team ([facility] st Contact Info) Description 04/12/2024 Orders Only [facility] MEDICINE [address] [place] [address] Giana Isbell MD [address] [place] [address] Bronchopneumonia (Primary Dx) Social History Tobacco Use [...] AM EDT Narrative 04/19/2024 9:48 AM EDT [place] [address] XRay Report Signed Patient: Tory Bush MR#: [id number] : 1965 Acct:[id number] Age/Sex: 58 / F ADM Date: 04/19/24 Loc: HO.LAB Attending Dr: Giana Isbell MD Ordering Physician: Giana Isbell MD Date of Service: 04/19/24 Procedure(s): XR chest 2V Accession Number(s): [id number] cc: Giana Isbell MD EXAMINATION: XR CHEST [...] OV> 04/19/24 0945 DD/ TD/TT: 04/19/24 0845 Wood Planer: Procedure Note Donotuseinterpreter, Image - 04/19/2024 [place] [address] XRay Report Signed Patient: Pat Bush#: [id number] : 1965Acct:[id number] Age/Sex: 58 / FADM Date: 04/19/24 Loc: HO.LAB Attending Dr: Giana Isbell MD Ordering Physician: Giana Isbell MD Date of Service: 04/19/24 Procedure(s): XR chest 2V Accession Number(s): [id number] cc: Giana Isbell MD EXAMINATION: XR CHEST [...] in OV> 04/19/2445 DD/ 4 TD/TT: 04/19/24844 Wood Planer: us Giana Isbell MD IMG XR PROCEDURES Edited Re sult - Final documented in this encounter Visit Diagnoses Diagnosis Bronchopneumonia- Primary Bronchopneumonia, organism unspecified documented in this encounter Additional Health Concerns Assessment Noted Time PHQ-9 Depression Total Score: 24 025 9:26 AM EST documented as of this encounter Care Teams Manager Spanish Relationship Specialty Start Date End Date Giana Isbell MD [address] [place] [address] PCP - General Internal Medicine 09/07/18 documented as of this encounter
--- OUTSIDE RECORDS SUMMARY | 2024-11-23 18:22 | XMS_ITS | Encounter Summary ---
Author Organization [employer] Address [address] [facility] 7t [place] [address] Care Team Providers Care Speed Reading Teacher Name Role Phone Giana Isbell MD Primary Care Provider [phone] Reason for Visit * Reason Onset Date Comments Nurse Triage 03/01/2023 Encounter Details Date Type Department Care Team ([facility] st Contact Info) Description 03/01/2023 Telephone [facility] MEDICINE [address] [place] [address] Giana Isbell MD [address] [place] [address] Nurse Triage Social History Tobacco Use Types [...] 03/01/2023 12:46 PM EST Triage call with TV[employer] Time [place] Hand ID [id number] Pt reports having surgery and not having any pain medication. Pt had a partial left thyroidectomy 02/28/23 @ [facility] and oxycodone 5mg po was ordered . Prescription was sent to [facility] pharmacy. Pt was not aware [...] documented as of this encounter Care Teams Speed Reading Teacher Relationship Specialty Start Date End Date Giana Isbell MD [address] [place] [address] PCP - General Internal Medicine 09/07/18 documented as of this encounter
--- OUTSIDE RECORDS SUMMARY | 2024-11-23 18:22 | XMS_ITS | Encounter Summary ---
Author Organization [employer] Address [address] [facility] 7t [place] [address] Care Team Providers Care Netbackup Admin Name Role Phone Giana Isbell MD Primary Care Provider [phone] Reason for Visit * Reason Onset Date Comments Hospital Follow-up 07/20/2022 Encounter Details Date Type Department Care Team ([facility] st Contact Info) Description 07/20/2022 Telephone [facility] MED & PEDS [address] [place] [address] Giana Isbell MD [address] [place] [address] Hospital Follow-up Social History Tobacco Use Types [...] on filedocumented in this encounter Care Teams Netbackup Admin Relationship Specialty Start Date End Date Beauzile, Thevenin, MD [address] [place] [address] PCP - General Internal Medicine 09/07/18 documented as of this encounter
--- OUTSIDE RECORDS SUMMARY | 2024-11-23 18:22 | XMS_ITS | Encounter Summary ---
Author Organization [employer] Address [address] [facility] 7t [place] [address] Care Team Providers Care Websphere Commerce Architect Name Role Phone Giana Isbell MD Primary Care Provider [phone] Encounter Details Date Type Department Care Team (Latest Contact Info) Description 11/13/2020 Abstract [facility] CONVERSIONS Dental, Provider, DDS Social History [...] on filedocumented in this encounter Care Teams Websphere Commerce Architect Relationship Specialty Start Date End Date Giana Isbell MD [address] [place] [address] PCP - General Internal Medicine 09/07/18 documented as of this encounter
--- OUTSIDE RECORDS SUMMARY | 2024-11-23 18:22 | XMS_ITS | Encounter Summary ---
Author Organization [employer] Address [address] [facility] 7t [place] [address] Care Team Providers Care Building Inspector Name Role Phone Giana Isbell MD Primary Care Provider [phone] Encounter Details Date Type Department Care Team ([facility] Contact Info) Description 02/17/2024 Orders Only [facility] [address] [place] [address] ProviderKathi MD Social History Tobacco Use Types [...] documented as of this encounter Care Teams Building Inspector Relationship Specialty Start Date End Date Giana Isbell MD [address] [place] [address] PCP - General Internal Medicine 09/07/18 documented as of this encounter
--- OUTSIDE RECORDS SUMMARY | 2024-11-23 18:22 | XMS_ITS | Clinical Summary ---
Author Organization [employer] Address [address] [place] [address] Care Team Providers Care Custodian Supervisor Name Role Phone Giana Isbell MD Primary Care Provider [phone] Allergies Active Allergy Reactions Criticality Noted Date [...] mouth Once per day. 03/08/19 25 Active Albuterol-Budesoni de (Airsupra) 90-80 MCG/ACT aerosol Inhale 3 Inhalations Once per day. Active calcium carbonate (Os-Norberto) 1250 (500 Ca) MG chewable tablet Chew 1 tablet if needed each day for heartburn. Active levothyroxine (Synthroid) 125 MCG tabletIndications: Acquired hypothyroidism Take 1 tablet (125 mcg) by mouth before breakfast. 30 tablet 11 03/28/19 25 026 Active venlafaxine (Effexor) 37.5 MG tabletIndications: Depressive disorder TAKE 1 TABLET BY MOUTH TWICE DAILY 60 tablet 5 04/18/19 25 Active dextran 70-hypromellose (artificial tears) 0.1-0.3 % ophthalmic solutionIndication s:Dry eyes, bilateral Administer 1 drop into both eyes if needed in the morning, at noon, and at bedtime for dry eyes. 30 mL 3 04/18/19 25 026 Active SUMAtriptan (Imitrex) 50 MG tabletIndications: Migraine with aura and without status migrainosus, not intractable Take 1 tablet (50 mg) by mouth if needed each day for migraine. 9 tablet 11 07/20/19 25 Active hydrocortisone 0.5 % cream APPLY 1 GRAM TOPICALLY TO AFFECTED AREA(S) TWICE DAILY DIRECTED 56.8 g 1 09/01/19 25 Active capsaicin (Zostrix) 0.025 % creamIndications:C hronic pain of left knee APPLY 1 GRAM TOPICALLY TO AFFECTED AREA(S) TWICE DAILY DIRECTED 60 g 3 09/04/19 25 Active albuterol (2.5 MG/3ML) 0.083% nebulizer solutionIndication s:SOB (shortness of breath),Bronchopne umonia INHALE 1 AMPULE USING A NEBULIZER EVERY 6 HOURS NEEDED FOR WHEEZING 90 mL 11 10/02/19 25 Active lidocaine (Lidoderm) 5 % patchIndications:A cute midline low back pain without sciatica Apply 1 patch topically Once per day. Remove & discard patch within 12 hours or as directed by MD. 30 patch 3 11/24/19 25 Active celecoxib (CeleBREX) 200 MG capsuleIndications :Acute midline low back pain without sciatica Take 1 capsule (200 mg) by mouth 2 times daily. 60 capsule 11/24/19 25 025 Active polyethylene glycol, PEG, 3350 (Miralax) 17 g packetIndications: Other constipation Take 17 g by mouth Once per day for 3 days. 3 packet 11/24/19 25 025 Active sodium phosphate (Fleet) 7-19 GM/118ML enemaIndications:O ther constipation Insert 1 enema into the rectum 1 (one) time for 1 dose. 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/2024 Closed fracture of tooth 12/16/2023 Pre-diabetes 12/06/2023 Fractured dental anabaptist without loss of mat erial 12/06/2023 Transaminitis [...] diagnostic mammo and breast US, send to [facility] Cervical cancer screening 10/25/2023 Assessment & Plan [...] Encounters Date Type Department Care Team Description 11/23/2024 3:45 PM EDT Office Visit [facility] [address] [place] [address] Giana Isbell MD Other constipation (Primary Dx); Acute midline low back pain without sciatica 11/23/2024 Travel 10/24/2024 Orders Only [facility] External Provider, [facility] 09/29/2024 Refill [facility] [address] [place] [address] Giana Isbell MD SOB (shortness of breath); Bronchopneumonia 09/01/2024 Refill [facility] [address] [place] [address] Giana Isbell MD Chronic pain of left knee 08/30/2024 Refill [facility] [address] [place] [address] Giana Isbell MD 08/27/2024 Orders Only GENERIC EXTERNAL DATA DEPARTMENT Provider, Generic External Data from Last 3 Months Immunizations Immunization Administration [...] Pulse 88 11/23/2024 3:36 PM EDT Temperature 36.7 C (98.1 F) 03/28/2024 9:16 AM EST Respiratory Rate 20 11/23/2024 3:36 PM EDT Oxygen Saturation 98% 11/23/2024 3:36 PM EDT Inhaled Oxygen Concentration - - Weight 61.2 kg (135 lb) 11/23/2024 3:36 PM EDT Height 152.4 cm (5') 11/23/2024 3:36 PM EDT Body Mass Index 26.37 11/23/2024 3:36 PM EDT Plan of Treatment Health Maintenance Due Date [...] IMAGING Routine 08/27/2024 7:14 AM EDT BI US BREAST LIMITED LEFT [...] PM EDT Narrative 10/24/2024 1:44 PM EDT [place] [address] XRay Report Signed Patient: Tory Bush MR#: [id number] : 1965 Acct:[id number] Age/Sex: 59 / F ADM Date: 10/24/24 Loc: HO.XRAY Attending Dr: Nicci Wilkins NP Ordering Physician: Nicci Wilkins NP Date of Service: 10/24/24 Procedure(s): XR lumbar spine 2-3V Accession Number(s): [id number] cc: Giana Isbell MD; Nicci Wilkins NP [...] 10/24/24 1342 DD/ 1331 TD/TT: 10/24/24 1335 Cafeteria Monitor: Procedure Note Donotuseinterpreter, Image - 10/24/2024 [place] [address] XRay Report Signed Patient: Pat Bush#: [id number] : 1965Acct:[id number] Age/Sex: 59 / FADM Date: 10/24/24 Loc: HO.XRAY Attending Dr: Nicci Wilkins NP Ordering Physician: Nicci Wilkins NP Date of Service: 10/24/24 Procedure(s): XR lumbar spine 2-3V Accession Number(s): [id number] cc: Giana Isbell MD; Nicci Wilkins NP [...] 10/24/24 1342 DD/ 1331 TD/TT: 10/24/24 1335 Cafeteria Monitor: [facility] External Provider IMG XR PROCEDURES Edited Result - Final * BI MM SURGICAL SPECIMEN (08/27/2024 11:00 AM EDT) Anatomical Region Laterality Modality Breast Bilateral Mammography 08/27/2024 11:0 0 AM EDT Narrative 08/27/2024 11:22 AM EDT [place] [address] [id number] Mammography Report Signed Patient: Tory Bush MR#: [id number] : 1965 Acct:[id number] Age/Sex: 59 / F ADM Date: 08/27/24 Loc: [facility] Attending Dr: Pardeep Marcos MD Ordering Physician: Pardeep Marcos MD Results: Date of Service: 08/27/24 Follow Up: Procedure(s): MM surgical specimen Accession Number(s): [id number] cc: Giana Isbell MD; Pardeep Marcos MD Right single specimen radiograph demonstrates the butterfly clip and the tag within the specimen. Left single specimen radiograph demonstrates the bar clip and the tag within the specimen. Electronically signed by: Carissa Raza DO 08/27/2024 11:19 AM EDT RP Dictated By: Carissa Raza DO Signed By: <Electronically signed by Carissa Raza DO in OV> 08/27/24 1119 DD/ 1100 TD/TT: 08/27/24 1110 Cafeteria Monitor: Procedure Note Donotuseinterpreter, Image - 08/27/[address] [address] [id number] Mammography Report Signed Patient: Pat Bush#: [id number] : 1965Acct:[id number] Age/Sex: 59 / FADM Date: 08/27/24 Loc: .SSS Attending Dr: Pardeep Marcos MD Ordering Physician: Pardeep Marcosesults: Date of Service: 08/27/24Follow Up: Procedure(s): MM surgical specimen Accession Number(s): [id number] cc: Giana Isbell MD; Pardeep Marcos MD [...] 08/27/24 1119 DD/ 1100 TD/TT: 08/27/24 1110 Cafeteria Monitor: [facility] External Provider IMG BI PROCEDURES Final Result * Hematoxylin and Eosin Stain (08/27/2024 10:58 AM EDT) 08/27/2024 10:5 8 AM EDT 08/27/2024 11:01 AM EDT [facility] - 08/29/2024 10:10 PM EDT ----- ------- Name: Tory Bush Age/Sex: 59/F : 1965 Unit#: [id number] Attend Dr: Pardeep Marcos MD Re08/27/24 Status: [facility] Location: [facility] Disch: ----- ------- SPEC : [id number] RECD: 08/27/24 STATUS: JAMIL [place] NUM: [id number] TEQUILA: 08/27/[address] [facility] [address]: Pardeep Marcos MD ENTERED: 08/27/24 SP [...] breast lumpectomy B. Left breast lumpectomy C. [place] node #1, count 3708 D. [place] node #2, count 2082 E. [place] node #3, count 153 F. [place] node #4, count 127 G. [place] node #5, count 284 CONTINUED ON NEXT PAGE ----- ------- Name: Tory Bush Age/Sex: 59/F : 1965 Unit#: [id number] Attend Dr: Pardeep Marcos MD Re08/27/24 Status: [facility] Location: [facility] Disch: ----- ------- SPEC : [id number] RECD: 08/27/24 STATUS: JAMIL [place] NUM: [id number] TEQUILA: 08/27/24-[address] [facility] [address]: Pardeep Marcos MD ENTERED: 08/27/24 SP [...] and A3 slice 2, entirely submitted; A4 wqalrsep-jxjyavlvw-ahyxhigl, slice 3; A5 anterior-posterior, slice 3; A6 linspykl-kaeyoszpj-imsybgmp, slice 3; A7 posterior-inferior, slice 4; A8 [...] Tory Bush Age/Sex: 59/F : 1965 Unit#: [id number] Attend Dr: Pardeep Marcos MD Re08/27/24 Status: [facility] Location: [facility] Disch: ----- ------- SPEC : [id number] RECD: 08/27/24 STATUS: JAMIL [place] NUM: [id number] TEQUILA: 08/27/[address] [facility] [address]: Pardeep Marcos MD ENTERED: 08/27/24 SP [...] slice 4; B7 anterior-posterior, slice 5; B onkvjuar-yruidpvsj-hxcttrat, slice 5; B9 anterior-posterior, slice 6; B10 ghncejdl-ndsoucobg-vqmzfufi, slice 6; B11 anterior-superior, slice 6; B12 medial. Cassettes B3-B10 encompass the question area of prior biopsy and clip. The intraoperative diagnosis is reported to Dr. Marcos as marker identified in fibrous tissue. No suspicious mass by Dr. Verma.(PK) Part C: Received in formalin labeled sentinel [...] Name: Tory Bush Age/Sex: 59/F : 1965 [id number]#: [id number] Attend Dr: Pardeep Marcos MD Re08/27/24 Status: [facility] Location: [facility] Disch: ----- ------- SPEC : [id number] RECD: 08/27/24 STATUS: JAMIL [place]APH[place] NUM: [id number] TEQUILA: 08/27/[address] [facility] [address]: Pardeep Marcos MD ENTERED: 08/27/24 SP [...] developed and their performance characteristics determined by [facility]. They have not been cleared or approved by the U.S. Food and Drug Administration (FDA). However, the FDA has determined that such clearance or approval is not necessary. This laboratory is certified under the Clinical Laboratory Improvement Amendments of 1988 (CLIA) as qualified to perform high complexity clinical laboratory testing. Copies To: Giana Isbell MD [address] [id number] Paredep Marcos MD [facility] General Surgeons [address] [place] [phone] CONTINUED ON NEXT PAGE ----- ------- Name: Tory Bush Age/Sex: 59/F : 1965 Unit#: [id number] Attend Dr: Pardeep Marcos MD Re08/27/24 Status: [facility] Location: [facility] Disch: ----- ------- SPEC : [id number] RECD: 08/27/24 STATUS: JAMIL [place] NUM: [id number] TEQUILA: 08/27/[address] [facility] [address]: Pardeep Marcos MD ENTERED: 08/27/24 SP TYPE: Surgical OTHR DR: Giana Isbell MD ORDERED: HE Stain/10, Gross Micro L5/7, Cytokeratin/10, IOC/2 COMMENTS: Part A: Cassettes A1-A11 are placed in formalin at 1126. Part B: Cassettes B1-B12 are placed in formalin at 1205. ----- ------- Signed (signature on file) Bhavya Mckeon MD 08/29/240 ----- ------- END OF REPORT us Generic External Data Provider LAB BLOOD ORDERAB LES Final Result [facility] [address] [place], [place] [phone] * NM SENTINEL NODE W IMAGING (08/27/2024 7:14 AM EDT) Anatomical Region Laterality Modality Nuclear Medicine 08/27/2024 7:14 AM EDT Narrative 08/27/2024 9:38 AM EDT [place] [address] Nuclear Medicine Report Signed Patient: Tory Bush MR#: [id number] : 1965 Acct:[id number] Age/Sex: 59 / F ADM Date: 08/27/24 Loc: .[facility] Attending Dr: Pardeep Marcos MD Ordering Physician: Pardeep Marcos MD Date of Service: 08/27/24 Procedure(s): NM sentinel node w imaging Accession Number(s): [id number] cc: Giana Isbell MD; Pardeep Marcos MD [...] signed by Percy Piedra MD in OV> 08/27/24 0935 DD/ 0714 TD/TT: 08/27/24 0900 Cafeteria Monitor: [facility] Procedure Note Donotuseinterpreter, Image - 08/27/2024 [place] [address] Nuclear Medicine Report Signed Patient: Pat Bush#: [id number] : 1965Acct:[id number] Age/Sex: 59 / FADM Date: 08/27/24 Loc: HO.SSS Attending Dr: Pardeep Marcos MD Ordering Physician: Pardeep Marcos MD Date of Service: 08/27/24 Procedure(s): NM sentinel node w imaging Accession Number(s): [id number] cc: Giana Isbell MD; Pardeep Marcos MD [...] OV> 08/27/2435 DD/ 0714 TD/TT: 08/27/24 0900 Cafeteria Monitor: ESTEBAN [facility] External Provider IMG NM PROCEDURES Final Result * BI US Breast Limited Left (08/22/2024 9:08 AM EDT) Anatomical Region Laterality Modality Breast Left Ultrasound 08/22/2024 9:08 AM EDT Narrative 08/22/2024 1:50 PM EDT [address] [place] [address] Ultrasound Report Signed Patient: Tory Bush MR#: [id number] : 1965 Acct:[id number] Age/Sex: 59 / F ADM Date: 08/22/24 Loc: HO.MAMMO Attending Dr: Pardeep Marcos MD Ordering Physician: Pardeep Marcos MD Date of Service: 08/22/24 Procedure(s): US breast LT limited Accession Number(s): [id number] cc: Giana Isbell MD; Pardeep Marcos MD [...] 08/22/24 1348 DD/ 0908 TD/TT: 08/22/24 1042 Cafeteria Monitor: Procedure Note Donotuseinterpreter, Image - 08/22/2024 [facility] [address] [place] [address] Ultrasound Report Signed Patient: Pat Bush#: [id number] : 1965Acct:[id number] Age/Sex: 59 / FADM Date: 08/22/24 Loc: HO.MAMMO Attending Dr: Pardeep Marcos MD Ordering Physician: Pardeep Marcos MD Date of Service: 08/22/24 Procedure(s): US breast LT limited Accession Number(s): [id number] cc: Giana Isbell MD; Pardeep Marcos MD [...] Carissa Raza DO 08/22/2024 01:48 PM EDT RP Dictated By: Carissa Raza DO Signed By: <Electronically signed by Carissa Raza DO in OV> 08/22/24 1348 DD/ 0908 TD/TT: 08/22/24 1042 Cafeteria Monitor: us [facility] External Provider IMG US PROCEDURES Final Result * (ABNORMAL) POCT HGB A1C (12/06/2023 11:41 AM EDT) [facility] Hemoglobin A1C 6.2(A) 4.0 - 6.0 % QC Media Lot # [id number] Lot# Expiration Date Blood 12/06/2023 11:4 1 AM EDT us Giana Isbell MD POINT OF CARE TEST ENTER/ED IT ORDERABLES Final Result * ThinPrep Imaging Pap and HPV mRNA E6/E7 (10/25/2023 12:00 AM EDT) Pathologist [facility] HPV nRNA E6/E7 Not Detected Not Detected [facility] Comment:Methodology: Transcr iption-Mediated AmplificationThis assay detects E6/E7 viral messenger RNA (mRNA) from 14high-risk HPV types (16,18,31,33,35,39,45,51,52,56,58,59,66,68).Cervical sources are required for HPV testing.If a vaginal source from a patient who has had atotal hysterectomy with removal of cervix wassubmitted, please contact the testing laboratoryfor alternative testing options.For additional information, please refer tohttp://education.Magiq/faq/QPD310o7(This link if provided for information/educational purposes only.)THIS TEST WAS PERFORMED AT:[employer] [address] [address]WRTZMLES FISCHER MD SOURCE: SEE NOTE [facility] Comment:None given Report Status: [facility] Clinical Information: SEE NOTE [facility] Comment:None given LMP: SEE NOTE [facility] Comment:NONE GIVEN Prev. PAP: SEE NOTE [facility] Comment:NONE GIVEN Prev. BX: SEE NOTE [facility] Comment:NONE GIVEN Statement Of Adequacy: SEE NOTE [facility] Comment:Satisfactory for tiffany luation.Endocervical/transformation zone componentpresent. General Categorization: [facility] Interpretation/Result: SEE NOTE [facility] Comment:Cytology Results: Ne gative for intraepitheliallesion or malignancy. Cytology Comment SEE NOTE [facility] Comment:This Pap test has be en evaluated with computerassisted technology. Master Fire Control Technician: SEE NOTE [facility] Comment:YP, CT(ASCP)CT scree gino location: [address] [address] Review Master Fire Control Technician: [facility] Pathologist [facility] PAP Infection [facility] See Note SEE [facility] Comment:EXPLANATORY NOTE:The Pap is a screening test for cervical cancer. It isnot a diagnostic test and is subject to false negativeand false positive results. It is most reliable when asatisfactory sample, regularly obtained, is submittedwith relevant clinical findings and history, and whenthe Pap result is evaluated along with historic andcurrent clinical information. 10/25/2023 10/25/2023 Narrative [facility] - 11/01/2023 12:30 PM EDT SEE SCANNED RESULTS IN EMR us Lou Gonzalez MD LAB PATHOLOGY ORDERABLES Ashlyn l Result Performing Organization Address City/[facility]/ZIP Co de Phone Number [facility] [address] [place] [address] [phone] * Hepatitis Panel, General (01/13/2023 9:50 AM EST) [facility] Hepatitis A IgM Nonreactive Nonreactive [facility] Comment:IgM antibodies to RUELAS V not detected; does not exclude earlyacute or recovered HAV infection. ~Hepatitis B Surface Antibody NONREACTIVE Nonreactive [facility] Comment:Nonreactive: < 8.00 mIU/mL Hepatitis B Core Antibody Nonreactive Nonreactive [facility] Hepatitis C Antibody Nonreactive Nonreactive [facility] Comment:Antibodies to HCV no t detected; does not exclude early acuteHCV infection. Hepatitis B Surface Ag Negative Negative [facility] 01/13/2023 9:50 AM EST 01/13/2023 9:52 AM EST us Generic External Data Provider LAB BLOOD ORDERAB LES Final Result Performing Organization Address [facility]/ZIP Co de Phone Number [facility] [address] [place] [phone] * (ABNORMAL) LIPID PANEL, STANDARD (08/04/2021 9:06 AM EDT) [facility] Chol/HDLC Ratio 4.9 <5.0 (calc) [facility] [...] LDL-C. Esteban SS et al. NIC. 2013;310(19): 8309-1921 (http://education.Ongo.com/faq/PQY732) Non-HDL Cholesterol 188(H) <130 mg/dL (calc) [facility] Comment: For patients with diabetes plus 1 major ASCVD risk factor, treating to a non-HDL-C goal of <100 mg/dL (LDL-C of <70 mg/dL) is considered a therapeutic option. Triglycerides 189(H) <150 mg/dL [facility] 08/04/2021 9:06 AM EDT Giana Isbell MD LAB BLOOD ORDERABLES Final Result [facility] [address] [place] [address], * Colonoscopy (12/02/2015) Colonoscopy Normal Normal Narrative Lily Sanchez - 12/02/2015 Recommended 10 year follow up Historical Provider HEALTH MAINTENANCE Final Result from Last 3 Months or Most Recently Relevant to Health Maintenance Insurance [facility] < 65 [place] [id number] [facility] Care Teams Custodian Supervisor Relationship Specialty Start Date End Date Giana Isbell MD [address] [place] [address] PCP - General Internal Medicine 09/07/18
--- OUTSIDE RECORDS SUMMARY | 2024-11-23 18:22 | XMS_ITS | Encounter Summary ---
Author Organization [employer] Address [address] [place] [address] 7t [place] [address] Care Team Providers Care Frame Fixer Name Role Phone Giana Isbell MD Primary Care Provider [phone] Reason for Referral * Imaging (Urgent) - Closed Specialty Diagnoses / Procedures Referred By Ervin chávez Referred To Contact Radiology Diagnoses Elevated alkaline phosphatase level Procedures US Abdomen Complete Giana Isbell MD [address] [place] [address] Phone: tel: fax: [address] Phone: tel: fax: Referral ID Status Reason Start Date Expiration Date Visits Re quested Visits Authorized [id number] Closed 02/17/2023 02/17/2024 1 1 Encounter Details Date Type Department Care Team (Late st Contact Info) Description 02/17/2023 Orders Only [facility] [address] [place], [place] [phone] Giana Isbell MD [address] [place], [place] [phone] Elevated alkaline phosphatase level (Primary Dx); Left [...] AM EST Narrative 03/22/2023 9:16 AM EST [place] [address] Ultrasound Report Signed Patient: Tory Bush MR#: [id number] : 1965 Acct:[id number] Age/Sex: 57 / F ADM Date: 03/21/23 Loc: HO.US Attending Dr: Giana Isbell MD Ordering Physician: Giana Isbell MD Date of Service: 03/21/23 Procedure(s): US abdomen complete Accession Number(s): [id number] cc: Giana Isbell MD EXAMINATION: US ABDOMEN [...] MD in OV> 03/22/23911 DD/ 8 TD/TT: Internal Investigator: Procedure Note Donotuseinterpreter, Image - 03/22/[address] [address] Ultrasound Report Signed Patient: Pat Bush#: [id number] : 1965Acct:[id number] Age/Sex: 57 / FADM Date: 03/21/23 Loc: HO.US Attending Dr: Giana Isbell MD Ordering Physician: Giana Isbell MD Date of Service: 03/21/23 Procedure(s): US abdomen complete Accession Number(s): [id number] cc: Giana Isbell MD EXAMINATION: US ABDOMEN [...] MD in OV> 03/22/23911 DD/ 8 TD/TT: Internal Investigator: us Giana Isbell MD IMG US PROCEDURES Final Res ult documented in this encounter Visit Diagnoses Diagnosis Elevated alkaline phosphatase level- Primary Left upper quadrant abdominal pain documented in this encounter Additional Health Concerns Assessment Noted Time PHQ-9 Depression Total Score: 7 07/30/19 23 10:13 AM EDT documented as of this encounter Care Teams Frame Fixer Relationship Specialty Start Date End Date Giana Isbell MD [address] [place] [phone] PCP - General Internal Medicine 09/07/18 documented as of this encounter
--- OUTSIDE RECORDS SUMMARY | 2024-11-23 18:22 | XMS_ITS | Encounter Summary ---
Author Organization [employer] Address [address] [facility] [address] [address] [place] [address] Care Team Providers Care Community Outreach Specialist Name Role Phone Giana Isbell MD Primary Care Provider [phone] Encounter Details Date Type Department Care Team (Latest Contact Info) Description 11/23/2024 Travel Social History Tobacco Use Types Packs/Day [...] documented as of this encounter Care Teams Community Outreach Specialist Relationship Specialty Start Date End Date Giana Isbell MD [address] [place] [phone] PCP - General Internal Medicine 09/07/18 documented as of this encounter
--- OUTSIDE RECORDS SUMMARY | 2024-11-23 18:22 | XMS_ITS | Encounter Summary ---
Author Organization [employer] Address [address] [facility] 7t [place] [address] Care Team Providers Care Component Assembler Name Role Phone Giana Isbell MD Primary Care Provider [phone] Encounter Details Date Type Department Care Team (Latest Contact Info) Description 02/15/2018 Abstract [facility] CONVERSIONS Dental, Provider, DDS Social [...] on filedocumented in this encounter Care Teams Component Assembler Relationship Specialty Start Date End Date Giana Isbell MD [address] [place] [address] PCP - General Internal Medicine 09/07/18 documented as of this encounter
--- OUTSIDE RECORDS SUMMARY | 2024-11-23 18:22 | XMS_ITS | Encounter Summary ---
Author Organization [employer] Address [address] [place] [address] 7 [place] [address] Care Team Providers Care Supervisor Pigment Making Name Role Phone Giana Isbell MD Primary Care Provider [phone] Reason for Visit * Reason Comments Med Refill Encounter Details Date Type Department Care Team ([facility] st Contact Info) Description 03/31/2022 Refill [facility] [address] [place] [address] Giana Isbell MD [address] [place], [place] [phone] Acquired hypothyroidism (Primary Dx); Other constipation; Depressive [...] intractable documented in this encounter Care Teams Supervisor Pigment Making Relationship Specialty Start Date End Date Giana Isbell MD [address] [place], [place] [phone] PCP - General Internal Medicine 09/07/18 documented as of this encounter
--- OUTSIDE RECORDS SUMMARY | 2024-11-23 18:22 | XMS_ITS | Encounter Summary ---
Author Organization [employer] Address [address] [facility] 7t [place] [address] Care Team Providers Care Account Management Specialist Name Role Phone Giana Isbell MD Primary Care Provider [phone] Encounter Details Date Type Department Care Team (Latest Contact Info) Description 02/16/2019 Abstract [facility] CONVERSIONS Dental, Provider, DDS Social History [...] on filedocumented in this encounter Care Teams Account Management Specialist Relationship Specialty Start Date End Date Giana Isbell MD [address] [place] [address] PCP - General Internal Medicine 09/07/18 documented as of this encounter
[2024-11-23 18:40] LABS: Alanine Aminotransferase 17 U/L (0-31); Albumin Level 4.1 g/dL (3.5-5.0); Alkaline Phosphatase 153 U/L (39-117); Anion Gap 13 (12-20); Aspartate Amino Transferase 18 U/L (5-31); Blood Urea Nitrogen 18 mg/dL (9-16); Calcium 9.0 mg/dL (8.4-10.2); Carbon Dioxide 27 mmol/L (22-29); Chloride 107 mmol/L (96-108); Estimated Glomerular Filt Rate > 60; Potassium 3.9 mmol/L (3.3-5.1); Sodium 143 mmol/L (135-145); Total Protein 6.8 g/dL (6.5-8.0)
== END 2024-11-23 16:07 | disposition home or self-care (01) ==
LOC: HO.CHCLDS 16:06
PROVIDERS: Visit Provider Internal Medicine
DX: K59.09 Other constipation (principal); M54.50 Low back pain, unspecified
CPT/HCPCS: 36415; 80053

== ENCOUNTER 2024-12-07 09:40 | Outpatient (REF) | payer OTHER, SELFPAY ==
--- NOTE | ~2024-12-07 | XR_ITS ---
EXAMINATION: XR LUMBOSACRAL SPINE CLINICAL INFORMATION: Acute Low back pain COMPARISON: October 24, 2024 TECHNIQUE: AP oblique and lateral views FINDINGS: Mild multilevel endplate sclerosis. Bilateral facet joint hypertrophy at L3-4, L4-5 and L5-S1. Mild S-shaped curvature of the thoracolumbar spine. No acute cortical disruption or malalignment. No lytic or blastic lesions. Vascular clips in the right upper abdomen likely laparoscopic cholecystectomy. Abundant stool. XR/XR lumbar spine 4V min IMPRESSION: Mild multilevel lower lumbar spondylosis. Electronically signed by: Khanh Garcia MD 12/07/2024 11:33 AM EDT
--- NOTE | ~2024-12-07 | XR_ITS ---
EXAMINATION: XR ABDOMEN 1 VIEW (KUB) HISTORY: Constipation COMPARISON: Comparison is made with the prior examination dated 02/23/2023. FINDINGS: Two supine views of the abdomen are submitted. The bowel gas pattern is unremarkable, without evidence of mechanical obstruction. There is a large amount of stool throughout the colon. There are surgical clips in the right upper quadrant. There are multiple phleboliths in the pelvis. There are no abnormal soft tissue masses. The bones are intact. XR/XR KUB IMPRESSION: Large amount stool throughout the colon. Electronically signed by: Leonardo Larose MD 12/07/2024 11:30 AM EDT
== END 2024-12-07 09:41 | disposition home or self-care (01) ==
LOC: HO.XRAY 09:40
PROVIDERS: Absent Provider Internal Medicine; PCP Internal Medicine; Visit Provider Student in an Organized Health Care Education/Training Program
DX: E89.0 Postprocedural hypothyroidism (principal); K59.09 Other constipation; M54.50 Low back pain, unspecified; Z79.890 Hormone replacement therapy
CPT/HCPCS: 72110; 74018; 99212

== ENCOUNTER 2024-12-07 09:40 | Outpatient (AMB) | payer OTHER, SELFPAY ==
--- OUTSIDE RECORDS SUMMARY | 2024-12-04 14:40 | XMS_ITS | Encounter Summary ---
Author Organization [facility] Address [address] [address] Phone Care Team Providers Care Steward/Stewardess Third Class Name Role Phone Unknown, Unknown Primary Care Provider Isauro gaines Reason for Visit * Reason Comments Weekly Visit Malignant neoplasm o f upper-outer quadrant of right breast in female, estrogen receptor positive Encounter Details Date Type Department Care Team (Latest Contact Info) Description 12/04/2024 2:40 PM EDT Procedure visit [facility] At [facility] Rad Onc [address] [place] [address] Liz Mata MD [address] [place] [address] [email or web address] Pardeep Borges MD [address] [place] [phone] [email or web address] Malignant neoplasm of upper-outer quadrant of right breast in female, estrogen receptor positive (Primary Dx) Social History Tobacco Use Types Packs/Day Years Used Date Smoking Tobacco: Never Smokeless Tobacco: Never Alcohol Use Standard Drinks/Week Comments Not Currently [...] on file Sexual Orientation Not on file documented as of this encounter Plan of Treatment Upcoming Encounters Date Type Department Care Team (Late st Contact Info) Description 12/07/2024 2:20 PM EDT Treatment [facility] At [address] [address] Liz Mata MD [address] [place] [address] 89[address] 12/10/2024 2:20 PM EST Treatment [facility] At [address] [address] Liz Mata MD [address] [place] [address] 85677 12/11/2024 2:20 PM EST Treatment [facility] At [address] [address] Liz Mata MD [address] [place] [address] 12/11/2024 2:40 PM EST Procedure visit [facility] At [address] [address] Liz Mata MD [address] [place] [address]2017 12/12/2024 2:20 PM EST Treatment [facility] At [address] [address] Liz Mata MD [address] [place] [address] 20373 12/13/2024 2:20 PM EST Treatment [facility] At [facility] Rad Onc [address] [place] [address] Liz Mata MD [address] [place] [address] 12/14/2024 2:20 PM EST Treatment [facility] At [facility] Rad Onc [address] [place] [address] Liz Mata MD [address] [place] [address] 12/17/2024 2:20 PM EST Treatment [facility] At [facility] Rad Onc [address] [place] [address] Liz Mata MD [address] [place] [address] 89900 12/18/2024 2:20 PM EST Treatment [facility] At [facility] Rad Onc [address] [place] [address] Liz Mata MD [address] [place] [address] 71263 12/18/2024 2:40 PM EST Procedure visit [facility] At [facility] Rad Onc [address] [place] [address] Liz Mata MD [address] [place] [address] 44398 12/19/2024 2:30 PM EST Treatment [facility] At [facility] Rad Onc [address] [place] [address] Liz Mata MD [address] [place] [address] 12/20/2024 2:20 PM EST Treatment [facility] At [facility] Rad Onc [address] [place] [address] Liz Mata MD [address] [place] [address] 21966 12/21/2024 2:20 PM EST Treatment [facility] At [facility] Rad Onc [address] [place] [address] Liz Mata MD [address] [place] [address] 92342 12/24/2024 2:20 PM EST Treatment [facility] At [facility] Rad Onc [address] [place] [address] Liz Mata MD [address] [place] [address] 02265 12/25/2024 2:20 PM EST Treatment [facility] At [facility] Rad Onc [address] [place] [address] Liz Mata MD [address] [place] [address] 98225 12/25/2024 2:40 PM EST Procedure visit [facility] At [facility] Rad Onc [address] [place] [address] 76[address] Liz Mata MD [address] [place] [address] 22535 12/26/2024 2:20 PM EST Treatment [facility] At [facility] Rad Onc [address] [place] [address] Liz Mata MD [address] [place] [address] 35909 12/27/2024 2:20 PM EST Treatment [facility] At [facility] Rad Onc [address] [place] [address] Liz Mata MD [address] [place] [address] 90314 12/28/2024 2:20 PM EST Treatment [facility] At [facility] Rad Onc [address] [place] [address] 9[address] Liz Mata MD [address] [place] [address] 77653 12/31/2024 2:20 PM EST Treatment [facility] At [facility] Rad Onc [address] [place] [address] Liz Mata MD [address] [place] [address] 83002 01/01/2025 2:20 PM EST Treatment [facility] At [facility] Rad Onc [address] [place] [address] 18272 Liz Mata MD [address] [place] [address] 12873 01/01/2025 2:40 PM EST Procedure visit [facility] At [facility] Rad Onc [address] [place] [address] 59[address] Liz Mata MD [address] [place] [address] 32238 01/02/2025 2:20 PM EST Treatment [facility] At [facility] Rad Onc [address] [place] [address] Liz Mata MD [address] [place] [address] 21189 01/07/2025 2:20 PM EST Treatment [facility] At [facility] Rad Onc [address] [place] [address] 13892 Liz Mata MD [address] [place] [address] 05244 01/08/2025 2:20 PM EST Treatment [facility] At [facility] Rad Onc [address] [place] [address] 16509 Liz Mata MD [address] [place] [address] 33715 01/08/2025 2:40 PM EST Procedure visit [facility] At [facility] Rad Onc [address] [place] [address] Liz Mata MD [address] [place] [address] documented as of this encounter Visit Diagnoses Diagnosis Malignant neoplasm of upper-outer quadrant of right breast in female, estrogen receptor positive- Primary documented in this encounter Care Teams Steward/Stewardess Third Class Relationship Specialty Start Date End Date Unknown, Unknown, PCP - General 03/18/17 documented as of this encounter Additional Source Comments The information contained in this document represents components of the legal health record. It is not the complete legal health record.[facility]
--- NOTE | 2024-12-07 09:43 | A.OFFVIS_ITS ---
Vital Signs 12/07/24 09:46 Height 5 ft Weight 136 lb 10.986 oz BMI 26.7 BP 118/70 Blood Pressure Location Rt brachial Position Sitting Pulse 88 Pulse Source Pulse Oximeter Pulse Oximetry (%) 97 Oxygen Delivery Method Room Air Intake Visit Reasons: f/u Hypothyroidism Intake Note: Patient presents today to re-establish treatment for Hyperthyroidism: Patient last seen by DR Cherelle Valentine MD. Patient reports she is currently undergoing chemotherapy. Physicist Acoustics Required: Yes Physicist Acoustics Language: Shed Hand Services: Physicist Acoustics Offered & Declined (DR Alford Speak Fluent Bruneian) Accompanied by: Self / Same As Patient Allergies acetaminophen (Vicodin) Allergy (Unknown, Verified 12/07/24 09:44) unk Penicillins Adverse Reaction (Mild, Verified 12/07/24 09:44) HYPERTENSION hydrocodone (From VICODIN) Adverse Reaction (Unknown, Verified 12/07/24 09:44) HIGH BP HPI Comments Details: 58-year-old female coming in today for follow up of post surgical hypothyroidism. Last seen by Dr. Valentine on 04/09/2024. This is the 1st time I see this patient. HPI from prior visit She has a history of right thyroid lobectomy many years ago due to multinodular thyroid, about 25 years ago per the chart, with benign pathology per patient. Subsequently in October 2017 she was found to have thyroglobulin and TPO antibodies. She was lost to follow up in the middle for some time. Subsequentl y she was found to have left sided nodules in her thyroid. She underwent FNA biopsy of the left lower pole (documented as 3.5 cm in the chart but 1.7 cm on US) left-sided nodule and the left upper pole 1.5 cm nodule in August 2021 with benign cytology. Most recent ultrasound from April 2022, showed stable size of the nodules. She was continuing to have progressively worsening dysphagia and hence was referred to Dr. Nilsa Perdue for completion thyroidectomy, status post completion thyroidectomy in February 2023. Pathology was benign, she reports swallowing improved after the surgery. Blood work from 10/06/2023 showed elevated TSH of 4.54, free T4 normal of 1.01. Last visit October 2023 dose of levothyroxine increased from 100-112 mcg daily. Patient denies any history of childhood neck radiation. Denies having ever used lithium, amiodarone or biotin supplements. Patient denies any family history of thyroid cancer or thyroid disease. Diagnosed with a right invasive ductal breast carcinoma January 2024. Currently on chemotherapy. Patient previously described a lot of stomach discomfort a few minutes after taking levothyroxine. She says this did not happen when she used to be on the brand name previously. She was not taking her medication consistently because of this. Labs 02/23/2024 showed TSH of 11.89, subsequently she had normal TSH on 03/08/2024 at 2.36. Most recent labs on 03/16/2024 showed TSH of 17.14 with free T4 of 0.88. Her primary care physician increased her dose of levothyroxine to 125 from 112 mcg daily. This was done in mid March. Interval history: She underwent lumpectomy of R breast Aug 2024 She is receiving chemotherapy and radiation therapy, she will finish radiation in Dec and chemotherapy in Feb Reports being tired Taking Levothyroxine 137 mcg daily, She does not always take while fasting. She does not forget to take the medication. She is tolerating the brand name well. No changes in thyroid medication since last visit. ROS Tired Constipation. Reports feeling hot at the time. No shaking of hands. No anxiety. No dysphagia, no odinophagia. She reports bolus sensation when she eats hard foods. Physical exam: General: Well appearing. NAD. Eyes: No conjunctival injection, not lid lag or proptosis CV: RRR, no murmur. No edema. Resp:Lungs clear to auscultation bilaterally Abdomen: Soft, nontender. nondistended Extremities/Neuro: No weakness or tremor of outstretched hands Laboratory Tests 07/17/24 16:13 TSH 0.84 Free T4 1.26 Thyroid Stim Immunoglob <89 PFSH Medical History Insomnia Migraine Arthritis Thrombocytopenia Anxiety Depression Numbness History of chemotherapy Asthma Anemia GERD (gastroesophageal reflux disease) Fatty liver Invasive ductal carcinoma of right breast Type 2 diabetes mellitus Vitamin D deficiency Multinodular thyroid Hypothyroidism Surgical History (Updated 12/07/24 @ 10:12 by ORLANDO Abdul) History of lobectomy of thyroid Hx of colonoscopy History of esophagogastroduodenoscopy (EGD) History of carpal tunnel surgery of left wrist Tubal ligation status Hx of foot surgery Hx of epicondylectomy Hx of cholecystectomy Hx of thyroidectomy Hx of appendectomy Family History Father No problems noted. 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 Gender identity: Female Female Reproductive History Menstrual Age of Menarche: 15 Physical Exam Vital Signs: Last Vital Signs Pulse 88 12/07/24 09:46 BP 118/70 12/07/24 09:46 Pulse Ox 97 12/07/24 09:46 Oxygen Delivery Method Room Air 12/07/24 09:46 BMI result Body Mass Index 26.7 Assessment & Plan Assessment & Plan (1) Hypothyroidism: Code(s): E03.9 - Hypothyroidism, unspecified Category: Medical Qualifiers: Hypothyroidism type: postoperative Qualified Code(s): E89.0 - Postprocedural hypothyroidism Plan: Patient with history of multinodular goiter status post right lobectomy about 25 years ago, with left-sided thyroid lobe nodules resulting in dysphagia, status post completion thyroidectomy in February [address] Nilsa Perdue for worsening compressive symptoms, with benign pathology, now on levothyroxine 100 mcg daily. She have some symptoms that could be related to hypothyroidism including fatigue. However she is also on chemotherapy for right invasive ductal breast cancer diagnosed in January 2024. Her most recent labs showed TSH 0.86, free T4 1.26. Plan: -continue Synthroid 125 mcg daily -she is taking levothyroxine properly -ordered TSH and free T4 to be done in six-month, prior to the next visit -follow up in six-month Plan 20 minutes spent reviewing previous records, labs, imaging, education and documenting in the chart Orders: Orders TSH reflex Free T4 2 Months E89.0 - Postprocedural hypothyroidism Free T4 (Free Thyroxine) 2 Months E89.0 - Postprocedural hypothyroidism Coding Level of Care Code Est Pt Level 3 (57141) Diagnoses Postoperative hypothyroidism E89.0 Hypothyroidism type: postoperative
[2024-12-07 09:46] VITALS: BP 118/70; PULSE 88; O2SAT 97; BMI 26.7
--- OUTSIDE RECORDS SUMMARY | 2024-12-07 10:48 | XMS_ITS | Encounter Summary ---
Author Organization [email or web address] Address [address] [facility] 7t [place] [address] Care Team Providers Care Publications Writer Name Role Phone Giana Isbell MD Primary Care Provider [phone] Reason for Referral * Consultation (Routine) - Closed Specialty Diagnoses / Procedures Referred By Contharman t Referred To Contact Cardiology Diagnoses SOB (shortness of breath) Giana Isbell MD [address] [place] [address] Phone: tel: fax: Kavon Berumen MD [address] [facility] Floor [address] [place] [address] Phone: tel: fax: Referral ID Status Reason Start Date Expiration Date V isits Requested Visits Authorized [id number] Closed Specialty Services Required 12/19/2023 12/18/2024 1 1 Encounter Details Date Type Department Care Team (Late st Contact Info) Description 12/19/2023 Orders Only [facility] MED [facility] PEDS [address] [place] [address] Giana Isbell MD [address] [place] [address] SOB (shortness of breath) (Primary Dx) Social [...] Upcoming Encounters Date Type Department Care Team ([facility] st Contact Info) Description 02/11/2025 3:15 PM EST Office Visit [facility] MED & PEDS [address] [place] [address] Giana Isbell MD [address] [place] [address] Scheduled Referrals Name Type Priority Associated Diagnoses [...] AM EST Narrative 01/18/2024 9:40 AM EST [facility] [address] [place] [address] Ultrasound Report Signed with Addenda Patient: Tory Bush MR#: [id number] : 1965 Acct:[id number] Age/Sex: 58 / F ADM Date: 01/18/24 Loc: HO.MAMMO Attending Dr: Pardeep Marcos MD Ordering Physician: Pardeep Marcos MD Date of Service: 01/18/24 Procedure(s): US breast ndl core biopsy RT Accession Number(s): [id number] cc: Giana Isbell MD; Pardeep Marcos MD [...] DO 01/18/2024 09:37 AM EST Dictated By: aCrissa Raza DO Signed By: <Electronically signed by Carissa Raza DO in OV> 01/18/24 0937 DD/ 0800 TD/TT: 01/18/24 0835 Sheet Metal Smith: Procedure Note Donotuseinterpreter, Image - 01/25/2024 [facility] [address] [place] [address] Ultrasound Report Signed with Addenda Patient: Pat Bush#: [id number] : 1965Acct:[id number] Age/Sex: 58 / FADM Date: 01/18/24 Loc: ADELITA Attending Dr: Pardeep Marcos MD Ordering Physician: Pardeep Marcos MD Date of Service: 01/18/24 Procedure(s): US breast ndl core biopsy RT Accession Number(s): [id number] cc: Giana Isbell MD; Pardeep Marcos MD [...] 01/18/24 0937 DD/ 0800 TD/TT: 01/18/24 0835 Sheet Metal Smith: [facility] External Provider IMG US PROCEDURES Edited Result - Final * BI Mammogram Diagnostic Tomosynthesis Right (01/18/2024 8:00 AM EST) Anatomical Region Laterality Modality Breast Right Mammography 01/18/2024 8:00 AM EST Narrative 01/18/2024 9:40 AM EST [address] [place] [address] Mammography Report Signed with Addenda Patient: Tory Bush MR#: [id number] : 1965 Acct:[id number] Age/Sex: 58 / F ADM Date: 01/18/24 Loc: HO.MAMMO Attending Dr: Pardeep Marcos MD Ordering Physician: Pardeep Marcos MD Results: Date of Service: 01/18/24 Follow Up: Procedure(s): MM tomosynthesis diagnostic RT Accession Number(s): [id number] cc: Giana Isbell MD; Pardeep Marcos MD [...] in OV> 01/18/24936 DD/ 9 TD/TT: 01/18/24834 Sheet Metal Smith: Procedure Note Trish, Image - 01/25/2024 [facility] [address] [place], [place] [address] Mammography Report Signed with Addenda Patient: Pat Bush#: [id number] : 1965Acct:[id number] Age/Sex: 58 / FADM Date: 01/18/24 Loc: HO.MAMMO Attending Dr: Pardeep Marcos MD Ordering Physician: Pardeep Marcos MDResults: Date of Service: 01/18/24Follow Up: Procedure(s): MM tomosynthesis diagnostic RT Accession Number(s): [id number] cc: Giana Isbell MD; Pardeep Marcos MD [...] by: Carissa Raza DO 01/25/2024 08:54 AM [facility] Addendum Dictated By: Carissa Raza DO Addendum [...] by: Carissa Raza DO 01/18/2024 09:37 AM [facility] Workstation: [employer] Dictated By: Carissa Raza DO Signed By: <Electronically signed by Carissa Raza DO in OV> 01/18/24 0937 DD/ 0800 TD/TT: 01/18/24 0835 Sheet Metal Smith: [facility] External Provider IMG BI PROCEDURES Edited Result - Final documented in this encounter Visit Diagnoses Diagnosis SOB (shortness of breath)- Primary Shortness of breath documented in this encounter Additional Health Concerns Assessment Noted Time PHQ-9 Depression Total Score: 7 07/30/19 23 10:13 AM EDT documented as of this encounter Care Teams Publications Writer Relationship Specialty Start Date End Date Giana Isbell MD [address] [place] [address] PCP - General Internal Medicine 09/07/18 documented as of this encounter
--- OUTSIDE RECORDS SUMMARY | 2024-12-07 10:48 | XMS_ITS | Encounter Summary ---
Author Organization [employer] Address 75 [facility] 7t [place] [address] Care Team Providers Care Automobile Parts Assembler Name Role Phone Giana Isbell MD Primary Care Provider [phone] Reason for Visit * Reason Comments Med Refill Encounter Details Date Type Department Care Team ([facility] Contact Info) Description 07/20/2024 Refill [facility]S [address] [place] [address] Giana Isbell MD [address] [place] [address] Social History Tobacco Use Types Packs/Day Years [...] Care Team (Late st Contact Info) Description 02/11/2025 3:15 PM EST Office Visit [facility]S [address] [place] [address] Giana Isbell MD [address] [place] [address] documented as of this encounter Visit Diagnoses Not on filedocumented in this encounter Additional Health Concerns Assessment Noted Time PHQ-9 Depression Total Score: 24 025 9:26 AM EST documented as of this encounter Care Teams Automobile Parts Assembler Relationship Specialty Start Date End Date Giana Isbell MD [address] [place] [address] PCP - General Internal Medicine 09/07/18 documented as of this encounter
--- OUTSIDE RECORDS SUMMARY | 2024-12-07 10:48 | XMS_ITS | Encounter Summary ---
Author Organization [employer] Address [address] [facility] [address] [place] [address] Care Team Providers Care Automotive Hardware Engineer Name Role Phone Giana Isbell MD Primary Care Provider [phone] Encounter Details Date Type Department Care Team (Late st Contact Info) Description 04/05/2023 Telephone [facility] MEDICINE [address] [place] [address] Giana Isbell MD [address] [place], [place] [phone] Social History Tobacco Use Types Packs/Day Years [...] Description 02/11/2025 3:15 PM EST Office Visit [facility] MED & PEDS [address] [place] [address] Giana Isbell MD [address] [place] [address] documented as of this encounter Visit Diagnoses Not on filedocumented in this encounter Additional Health Concerns Assessment Noted Time PHQ-9 Depression Total Score: 7 07/30/19 23 10:13 AM EDT documented as of this encounter Care Teams Automotive Hardware Engineer Relationship Specialty Start Date End Date Giana Isbell MD [address] [place] [address] PCP - General Internal Medicine 09/07/18 documented as of this encounter
--- OUTSIDE RECORDS SUMMARY | 2024-12-07 10:48 | XMS_ITS | Encounter Summary ---
Author Organization [employer] Address [address] [facility] [address] [place] [address] Care Team Providers Care Manager Chemical Name Role Phone Giana Isbell MD Primary Care Provider [phone] Encounter Details Date Type Department Care Team (Late st Contact Info) Description 07/19/[address] [facility] MED [facility] PEDS [address] [place], [place] [phone] Giana Isbell MD [address] [place] [address] Migraine with aura and without status migrainosus, [...] Description 02/11/2025 3:15 PM EST Office Visit [facility] MED & PEDS [address] [place] [address] Giana Isbell MD [address] [place] [address] documented as of this encounter Visit Diagnoses Diagnosis Migraine with aura and without status migrainosus, not intractable- Primary documented in this encounter Additional Health Concerns Assessment Noted Time PHQ-9 Depression Total Score: 24 025 9:26 AM EST documented as of this encounter Care Teams Manager Chemical Relationship Specialty Start Date End Date Giana Isbell MD [address] [place] [address] PCP - General Internal Medicine 09/07/18 documented as of this encounter
--- OUTSIDE RECORDS SUMMARY | 2024-12-07 10:48 | XMS_ITS | Encounter Summary ---
Author Organization [employer] [facility] Address [address] [facility] 7t [place] [address] Care Team Providers Care Account Solutions Analyst Name Role Phone Giana Isbell MD Primary Care Provider +1- [phone] Encounter Details Date Type Department Care Team (Latest Contact Info) Description 12/04/2021 Abstract [facility] CONVERSIONS Dental, Provider, DDS Social [...] Description 02/11/2025 3:15 PM EST Office Visit [facility] CHC MED & PEDS [address] [place] [address] Giana Isbell MD [address] [place] [address] documented as of this encounter Visit Diagnoses Not on filedocumented in this encounter Care Teams Account Solutions Analyst Relationship Specialty Start Date End Date Giana Isbell MD [address] [place] [address] PCP - General Internal Medicine 09/07/18 documented as of this encounter
--- OUTSIDE RECORDS SUMMARY | 2024-12-07 10:48 | XMS_ITS | Data Portability ---
Author Organization [facility] Address [address] [place] [address] Care Team Providers Care Gut Snatcher Name Role Phone Unavailable Referring Provider [phone] [facility] CCA Referring Provider [phone] Assessment Encounter Date Assessment Date Assessment LastModified by Organization Details LastModified Time 10/02/2021 10/02/2021 I have reviewed and agree with the Assessment and Plan as documented by the Pilot Supervisor. I provided real -time medical direction via phone for this encounter, and was available for additional phone based assistance as needed. Patient given the opportunity to ask questions. [email or web address] Not available 10/02/2021 19:13:58 04/13/2023 04/13/2023 Ms. Tory Cantrell is a 57yoF who is seen today for further evaluation of right eye irritation. Ms. Cantrell reports three days of right eye itching and watering. She denies any fevers but reports that her left eye is starting to also itch and she has some minimal right ear discomfort. Otherwise has been feeling well. VSS. Pilot Supervisor site uploads picture of minimally injected and tearing right eye. Exam is c/w viral conjunctivitis . Recommended ongoing OTC therapies and cool compress/hand hygeine. Red flags to be reviewed by preparation room worker. Not available 04/13/2023 10:45:55 Plan of Treatment [...] Not available Not available Not available 10/02/2021 99042 8001 SNOMED Not Available [facility] - production 03:43:36 890 hydrocodo ne Not available Not available Not available Not available 10/02/2021 5489 RxNorm Cynthia Maguire MD [address] [facility],[address], [place], [phone] [place] [address] [facility] 18:39:23 Medications Name Sig Start Date Stop [...] % 98 % 88 /min 18 /min 04496.8 8 g 97.6 [degF] 124/76 mm[Hg] Not Available [facility] - [facility] 4 10:39:50 Date Recorded Body weight Provider Name an d Address Organization Details Last Updated DateTime 10/02/2021 77569.01 g Shravan Mallory [address] [facility],[address] [place], [address], [place] - [employer] [facility] 10/02/2021 18:45:32 Date Recorded Body temperature Heart [...] /min 120/70 mm[Hg] 120/70 mm[Hg] Not Available [facility] [facility] - production 17:37:54 Social History None recorded. [...] 3564 Cynthia Maguire MD Main - [facility] [address] [place] [phone] 10/02/2021 16:58:56 10/21/2021 11:37:50 Pain of right heel [id number] 098970 M79.671 possible plantar fasciitis- vs talar tendonitis [...] am Delilah Hope MD Main - [facility] [address] [place] [phone] 04/13/2023 10:39:45 04/14/2023 09:54:22 Viral conjunctivitis 78420179 B30.9 Health Concerns Section Related Observation LastModified by Organization Detai ls LastModified Time None Recorded Concern Status LastModified by Organization Details LastModified Time None Recorded Advance Directives Directive None Recorded Payers Insurance Date Sequence Insurance Name Policy Number Policy Pastor Covered Member ID Pastor Member ID Guarantor Name 04/03/2023 1 [facility] [employer] - DOS PRIOR TO 2022 - DUAL ELIGIBLE (MEDICARE REPLACEMENT/ADV ANTAGE - HMO) Tory Cantrell [id number] Tory Cantrell 04/14/2023 1 [employer] - DOS ON OR AFTER 2022 - DUAL ELIGIBLE - PENITENTIARY OPTIONS AND ONE CARE (MEDICARE REPLACEMENT/ADV ANTAGE - HMO) Tory Cantrell [id number] Tory Cantrell Notes Date Note Type Note [...] .................. .................. .................. .................. .................. .................. ............... Pilot Supervisor Note: Eval for right heel pain. pt stated she has had right heel pain for about 1 month, getting worse lately. Pt states she has appointment with ortho on Tuesday- pt has HX of tendon surgeries and chronic pain. pt states pain is bottom of heel, with discomfort generalized around ankle. no other new pain. pt denied fever/chills, denied sob/cp. [facility] recommended ice, elevate and we gave 15mg toradol for temp relief of pain. pt to follow up with pcp .................. .................. .................. .................. .................. .................. .................. ............... Disposition: FulfilledSEGMD: As above- hx chronic pain- On Naprosyn 500 mg q AM- denies hx CKD- not on anticoagulants- denies numbness/ tingling- worse w/ palpation/ ambulation/ WB Cynthia Maguire MD [address] [place] [address],[address], [place], [address], [employer] - [employer] 10/03/2021 17:32:32 04/13/2023 text/html HPI: HX Depression,migrain es. Three day history of eye irritation redness with drainage. No fever.slight ear discomfort. .................. .................. .................. .................. .................. .................. .................. ............... CRC Nurse Triage Notes (Yvette Guerra): Comments: HPI reviewed. No further information reviewed to process visit. .................. .................. .................. .................. .................. .................. .................. ............... Pilot Supervisor Note From Devan Brown: Pt co irrigation [...] Pt education on signs indicating the ER. Pilot Supervisor Allergies: Acetaminophen, Penicillin .................. .................. .................. .................. .................. .................. .................. ............... Disposition: Fulfilled Delilah Hope MD [address] [facility],[address], [place], [address], [facility] - [employer] 04/13/2023 16:03:59 OBGyn Episode No OBEpisode recorded.
--- OUTSIDE RECORDS SUMMARY | 2024-12-07 10:48 | XMS_ITS | Encounter Summary ---
Author Organization [employer] [facility] Address [address] [facility] 7t [place] [address] Care Team Providers Care Tourist Agent Name Role Phone Giana Isbell MD Primary Care Provider +1- [phone] Encounter Details Date Type Department Care Team (Latest Contact Info) Description 11/13/2020 Abstract [facility] CONVERSIONS Dental, Provider, DDS Social History [...] Description 02/11/2025 3:15 PM EST Office Visit [facility] CHC MED & PEDS [address] [place] [address] Giana Isbell MD [address] [place] [address] documented as of this encounter Visit Diagnoses Not on filedocumented in this encounter Care Teams Tourist Agent Relationship Specialty Start Date End Date Giana Isbell MD [address] [place] [address] PCP - General Internal Medicine 09/07/18 documented as of this encounter
--- OUTSIDE RECORDS SUMMARY | 2024-12-07 10:48 | XMS_ITS | Encounter Summary ---
Author Organization [employer] Address [address] [facility] [address] 7[address] [place] [address] Care Team Providers Care Snuff Blender Name Role Phone Giaan Isbell MD Primary Care Provider [phone] [phone] Encounter Details Date Type Department Care Team (Late st Contact Info) Description 02/06/2024 Orders Only [facility] CHC MED & PEDS [address] [place] [address] Giana Isbell MD [address] [place] [address] Acquired hypothyroidism (Primary Dx) Social History Tobacco [...] 3:15 PM EST Office Visit [facility] MED & PEDS [address] [place] [address] Giana Isbell MD [address] [place], [place] [phone] Scheduled Orders Name Type Priority Associated Diagnoses [...] AM EST Narrative 02/10/2024 3:39 PM EST [address] [address] Magnetic Resonance Report Signed with Fani Patient: Tory Bush MR#: [id number] : 1965 Acct:[id number] Age/Sex: 58 / F ADM Date: 02/06/24 Loc: HO.MRI Attending Dr: Pardeep Marcos MD Ordering Physician: Pardeep Marcos MD Date of Service: 02/06/24 Procedure(s): MR breast BI wo/w con Accession Number(s): [id number] cc: Giana Isbell MD; Pardeep Marcos MD [...] 02/10/24 1536 DD/ 0933 TD/TT: 02/06/24 1016 Replanting Machine Crew: Procedure Note Donotuseinterpreter, Image - 02/13/[address] [address] Magnetic Resonance Report Signed with Fani Patient: Pat Bush#: [id number] : 1965Acct:[id number] Age/Sex: 58 / FADM Date: 02/06/24 Loc: HO.MRI Attending Dr: Pardeep Marcos MD Ordering Physician: Pardeep Marcos MD Date of Service: 02/06/24 Procedure(s): MR breast BI wo/w con Accession Number(s): [id number] cc: Giana Isbell MD; Pardeep Marcos MD [...] 02/10/24 1536 DD/ 0933 TD/TT: 02/06/24 1016 Replanting Machine Crew: [facility] External Provider IMG MRI PROCEDURES Edited Result - Final documented in this encounter Visit Diagnoses Diagnosis Acquired hypothyroidism- Primary Unspecified hypothyroidism documented in this encounter Additional Health Concerns Assessment Noted Time PHQ-9 Depression Total Score: 7 07/30/19 23 10:13 AM EDT documented as of this encounter Care Teams Snuff Blender Relationship Specialty Start Date End Date Giana Isbell MD [address] [place] [address] PCP - General Internal Medicine 09/07/18 documented as of this encounter
--- OUTSIDE RECORDS SUMMARY | 2024-12-07 10:48 | XMS_ITS | Encounter Summary ---
Author Organization [employer] Address [address] [facility] 7t [place] [address] Care Team Providers Care Women Nurse Name Role Phone Giana Isbell MD Primary Care Provider [phone]- [phone] Reason for Visit * Reason Onset Date Comments Hospital Follow-up 07/20/2022 Encounter Details Date Type Department Care Team (Late Contact Info) Description 07/20/2022 Telephone [facility] CHC MED & PEDS [address] [place] [address] Giana Isbell MD [address] [place] [address] Hospital Follow-up Social History Tobacco Use Types [...] a HDF appt. Pt was admitted at [facility] on 07/17/22 and discharged on 07/20/22 due to abdominal pain. documented in this encounter Plan of Treatment Upcoming Encounters Date Type Department Care Team (Late Contact Info) Description 02/11/2025 3:15 PM EST Office Visit [facility] CHC MED & PEDS [address] [place] [address] Giana Isbell MD [address] [place] [address] documented as of this encounter Visit Diagnoses Not on filedocumented in this encounter Care Teams Women Nurse Relationship Specialty Start Date End Date Giana Isbell MD [address] [place] [address] PCP - General Internal Medicine 09/07/18 documented as of this encounter
--- OUTSIDE RECORDS SUMMARY | 2024-12-07 10:48 | XMS_ITS | Encounter Summary ---
Author Organization [email or web address] Address [address] [facility] [address] [place] [address] Care Team Providers Care Executive Coordinator Name Role Phone Giana Isbell MD Primary Care Provider [phone] [phone] Encounter Details Date Type Department Care Team (Late st Contact Info) Description 04/12/2024 Orders Only [facility] [address] [place] [address] Giana Isbell MD [address] [place], [place] [phone] Bronchopneumonia (Primary Dx) Social History Tobacco Use [...] Upcoming Encounters Date Type Department Care Team ([facility] st Contact Info) Description 02/11/2025 3:15 PM EST Office Visit [facility] MED & PEDS [address] [place], [place] [phone] Giana Isbell MD [address] [place], [place] [phone] documented as of this encounter Procedures Procedure Name Priority Date/Time Associated Diagnosis Comments XR CHEST 2 VIEWS Routine 04/19/2024 8:35 AM EDT Bronchopneumonia documented in this encounter Results * XR Chest 2 Views (04/19/2024 8:35 AM EDT) Anatomical Region Laterality Modality Chest Radiographic Laura ging 04/19/2024 8:35 AM EDT Narrative 04/19/2024 9:48 AM EDT [address] [address] XRay Report Signed Patient: Tory Bush MR#: [id number] : 1965 Acct:[id number] Age/Sex: 58 / F ADM Date: 04/19/24 Loc: HO.LAB Attending Dr: Giana Isbell MD Ordering Physician: Giana Isbell MD Date of Service: 04/19/24 Procedure(s): XR chest 2V Accession Number(s): [id number] cc: Giana Isbell MD EXAMINATION: XR CHEST [...] Ant Cole MD in OV> 04/19/2445 DD/ TD/TT: 04/19/24844 Forest Fire Officer: Procedure Note Donotuseinterpreter, Image - 04/19/2024 [place] [address] XRay Report Signed Patient: Pat Bush#: [id number] : 1965Acct:[id number] Age/Sex: 58 / FADM Date: 04/19/24 Loc: HO.LAB Attending Dr: Giana Isbell MD Ordering Physician: Giana Isbell MD Date of Service: 04/19/24 Procedure(s): XR chest 2V Accession Number(s): [id number] cc: Giana Isbell MD EXAMINATION: XR CHEST [...] Cole MD 04/19/2024 09:45 AM EDT RP Workstation: [id number] Dictated By: Ant Cole MD Signed By: <Electronically signed by Ant Cole MD in OV> 04/19/2445 DD/ 4 TD/TT: 04/19/24844 Forest Fire Officer: Giana Isbell MD IMG XR PROCEDURES Edited Re sult - Final documented in this encounter Visit Diagnoses Diagnosis Bronchopneumonia- Primary Bronchopneumonia, organism unspecified documented in this encounter Additional Health Concerns Assessment Noted Time PHQ-9 Depression Total Score: 24 03/28/ 025 9:26 AM EST documented as of this encounter Care Teams Executive Coordinator Relationship Specialty Start Date End Date Giana Isbell MD [address] [place] [address] PCP - General Internal Medicine 09/07/18 documented as of this encounter
--- OUTSIDE RECORDS SUMMARY | 2024-12-07 10:48 | XMS_ITS | Encounter Summary ---
Author Organization [employer] Address [address] [facility] [address] [place] [address] Care Team Providers Care Instructor Warper Name Role Phone Giana Isbell MD Primary Care Provider [phone] [phone] Encounter Details Date Type Department Care Team (Late st Contact Info) Description 05/06/2023 Orders Only [facility] CHC MED & PEDS [address] [place], [place] [phone] Giana Isbell MD [address] [place] [address] Acquired hypothyroidism (Primary Dx) Social History Tobacco [...] Description 02/11/2025 3:15 PM EST Office Visit [facility] CHC MED & PEDS [address] [place], [place] [phone] Giana Isbell MD [address] [place], [place] [phone] documented as of this encounter Procedures Procedure Name Priority Date/Time Associated Diagnosis Comments TSH W/REFLEX TO FT4 Routine 02/06/2024 10:45 AM EST Acquired hypothyroidism documented in this encounter Results * (ABNORMAL) TSH W/Reflex to FT4 (02/06/2024 10:45 AM EST) TSH reflex Free T4 10.06(H) 0.32 - 4.0 uIU/mL [facility] Blood Venous blood specimen / Unknown 02/06/2024 10:45 AM EST 02/06/2024 10:45 AM EST Giana Isbell MD LAB BLOOD ORDERABLES Final Result [facility] [address] [place] [address] [phone] documented in this encounter Visit Diagnoses Diagnosis Acquired hypothyroidism- Primary Unspecified hypothyroidism documented in this encounter Additional Health Concerns Assessment Noted Time PHQ-9 Depression Total Score: 7 07/30/19 23 10:13 AM EDT documented as of this encounter Care Teams Instructor Warper Relationship Specialty Start Date End Date Giana Isbell MD [address] [place] [address] PCP - General Internal Medicine 09/07/18 documented as of this encounter
--- OUTSIDE RECORDS SUMMARY | 2024-12-07 10:48 | XMS_ITS | Clinical Summary ---
Author Organization [employer] Address [address] [facility] 7[address] [place] [address] Care Team Providers Care Self Sealing Fuel Tank Repairer Name Role Phone Giana Isbell MD Primary Care Provider [phone] Allergies Active Allergy Reactions Criticality Noted Date [...] minutes following use. 473 mL 024 Active dexAMETHasone (Decadron) 2 MG tablet [...] breakfast. 30 tablet 11 025 2025 Active dextran 70-hypromellose (artificial tears) 0.1-0.3 % [...] each day for migraine. 9 tablet 11 Active hydrocortisone 0.5 % cream APPLY 1 GRAM TOPICALLY TO AFFECTED AREA(S) TWICE DAILY DIRECTED 56.8 g 1 Active capsaicin (Zostrix) 0.025 % creamIndications: Chronic pain of left knee APPLY 1 GRAM TOPICALLY TO AFFECTED AREA(S) TWICE DAILY DIRECTED 60 g 3 Active albuterol (2.5 MG/3ML) 0.083% nebulizer solutionIndicatio ns:SOB (shortness of breath),Bronchopn eumonia INHALE 1 AMPULE USING A NEBULIZER EVERY 6 HOURS NEEDED FOR WHEEZING 90 mL 11 Active lidocaine (Lidoderm) 5 % patchIndications: Acute midline low back pain without sciatica Apply 1 patch topically Once per day. Remove & discard patch within 12 hours or as directed by MD. 30 patch 3 Active celecoxib (CeleBREX) 200 MG capsuleIndication s:Acute midline low back pain without sciatica Take 1 capsule (200 mg) by mouth 2 times daily. 60 capsule 2024 Active venlafaxine (Effexor) 37.5 MG tabletIndications :Depressive disorder TAKE 1 TABLET BY MOUTH TWICE DAILY 60 tablet 5 Active venlafaxine (Effexor) 37.5 MG tabletIndications :Depressive disorder TAKE 1 TABLET BY MOUTH TWICE DAILY 60 tablet 5 025 2024 Discontinued polyethylene glycol, PEG, 3350 (Miralax) 17 g packetIndications :Other constipation Take 17 g by mouth Once per day for 3 days. 3 packet 025 2024 sodium phosphate (Fleet) 7-19 GM/118ML enemaIndications: Other constipation Insert 1 enema into the rectum 1 (one) time for 1 dose. 135 mL 2024 Active Problems Problem Noted Date Diagnosed Date Ductal carcinoma of breast (CMS/HCC) 02/22/2024 Closed fracture of tooth 12/16/2023 Pre-diabetes 12/06/2023 Fractured dental episcopal without loss of mat erial 12/06/2023 Transaminitis [...] diagnostic mammo and breast US, send to [facility] Cervical cancer screening 10/25/2023 [...] Encounters Date Type Department Care Team Description 12/06/2024 Telephone [facility] MEDICINE [address] [place], [place] [phone] Giana Isbell MD Results 11/28/2024 Refill [facility] & PEDS [address] [place] [address] Giana Isbell MD Depressive disorder 11/23/2024 3:45 PM EDT Office Visit [facility]ED[facility] [address] [place] [address] Giana Isbell MD Other constipation (Primary Dx); Acute midline low back pain without sciatica 11/23/2024 Travel 10/24/2024 Orders Only [facility] External Provider, [facility] 09/29/2024 Refill [facility] [address] [place] [address] Giana Isbell MD SOB (shortness of breath); Bronchopneumonia from Last 3 Months Immunizations Immunization Administration [...] 11/23/2024 3:36 PM EDT Plan of Treatment Upcoming Encounters Date Type Department Care Team ([facility] st Contact Info) Description 02/11/2025 3:15 PM EST Office Visit [facility] MED & PEDS [address] [place] [address] Giana Isbell MD [address] [place] [address] Health Maintenance Due Date Last Done Comments [...] Additional history exists Influenza Vaccine (#1) 2024 SDOH Screening 03/20/2025 03/20/2024 Alcohol/Substance Use Screening 03/28/2025 03/28/2024 Mammogram 08/22/2025 08/22/2024, 08/07, 04/09/2024, Additional history exists Tobacco Screening 11/23/2025 11/23/2024 Colonoscopy 12/01/2025 12/02/2015 Colorectal Cancer Screening 12/01/2025 [...] Procedure Name Priority Date/Time Associated Diagnosis Comments COMPREHENSIVE METABOLIC PANEL Routine 11/23/2024 4:08 PM EDT Other constipation Acute midline low back pain without sciatica XR LUMBAR SPINE 2-3 VIEWS Routine 10/24/2024 1:31 PM EDT BI US BREAST LIMITED LEFT Routine 08/22/2024 9:08 AM EDT PANORAMIC RADIOGRAPHIC IMAGE Routine 12/06/2023 1:00 PM EDT THINPREP IMAGING PAP AND HPV MRNA E6/E7 [...] Recently Relevant to Health Maintenance Results * (ABNORMAL) Comprehensive Metabolic Panel (11/23/2024 4:08 PM EDT) Sodium 143 135 - 145 mmol/L [facility] Potassium 3.9 3.3 - 5.1 mmol/L [facility] Chloride 107 96 - 108 mmol/L [facility] Carbon Dioxide 27 22 - 29 mmol/L [facility] Anion Gap 13 12 - 20 [facility] Urea Nitrogen (BUN) 18(H) 9 - 16 mg/dL [facility] Creatinine, Serum 0.93 0.5 - 1.4 mg/dL [facility] Estimated Glomerular Filt Rate >60 [facility] Comment:Chronic Kidney Disea se: Estimated GFR < 60 mL/min/[id number] Kidney Disease: Estimated GFR < 15 mL/min/1.73m2 Glucose 100 60 - 115 mg/dL [facility] Calcium 9.0 8.4 - 10.2 mg/dL [facility] Bilirubin, Total 0.3 0.0 - 1.0 mg/dL [facility] Aspartate Amino Transferase 18 5 - 31 U/L [facility] Alanine Aminotransferase 17 0 - 31 U/L [facility] Total Protein 6.8 6.5 - 8.0 g/dL [facility] Albumin Level 4.1 3.5 - 5.0 g/dL [facility] Alkaline Phosphatase 153(H) 39 - 117 U/L [facility] Blood Venous blood specimen / Unknown 11/23/2024 4:08 PM EDT 11/23/2024 5:54 PM EDT us Giana Isbell MD LAB BLOOD ORDERABLES Final Result [facility] [address] [place] [phone] * XR Lumbar Spine 2-3 Views (10/24/2024 1:31 PM EDT) Anatomical Region Laterality Modality Spine, L-spine Radiographic Laura ging 10/24/2024 1:31 PM EDT Narrative 10/24/2024 1:44 PM EDT [address] [address] XRay Report Signed Patient: Tory Bush MR#: [id number] : 1965 Acct:[id number] Age/Sex: 59 / F ADM Date: 10/24/24 Loc: LOBITO Attending Dr: Nicci Wilkins NP Ordering Physician: Nicci Wilkins NP Date of Service: 10/24/24 Procedure(s): XR lumbar spine 2-3V Accession Number(s): [id number] cc: Giana Isbell MD; Nicci Wilkins NP [...] 10/24/24 1342 DD/ 1331 TD/TT: 10/24/24 1335 Writer: Procedure Note Donotuseinterpreter, Image - 10/24/[address] [address] XRay Report Signed Patient: Pat Bush#: [id number] : 1965Acct:[id number] Age/Sex: 59 / FADM Date: 10/24/24 Loc: [facility]IO[facility] Attending Dr: Nicci Wilkins NP Ordering Physician: Nicci Wilkins NP Date of Service: 10/24/24 Procedure(s): XR lumbar spine 2-3V Accession Number(s): [id number] cc: Giana Isbell MD; Nicci Wilkins NP [...] 10/24/24 1342 DD/ 1331 TD/TT: 10/24/24 1335 Writer: [facility] External Provider IMG XR PROCEDURES Edited Result - Final * BI US Breast Limited Left (08/22/2024 9:08 AM EDT) Anatomical Region Laterality Modality Breast Left Ultrasound 08/22/2024 9:08 AM EDT Narrative 08/22/2024 1:50 PM EDT [facility] [address] [place] [address] Ultrasound Report Signed Patient: Tory Bush MR#: [id number] : 1965 Acct:[id number] Age/Sex: 59 / F ADM Date: 08/22/24 Loc: A[facility] Attending Dr: Pardeep Marcos MD Ordering Physician: Pardeep Marcos MD Date of Service: 08/22/24 Procedure(s): US breast LT limited Accession Number(s): [id number] cc: Giana Isbell MD; Pardeep Marcos MD [...] 08/22/24 1348 DD/ 0908 TD/TT: 08/22/24 1042 Writer: Procedure Note Donotuseinterpreter, Image - 08/22/2024 [facility] [address] [place] [address] Ultrasound Report Signed Patient: Pat Bush#: [id number] : 1965Acct:[id number] Age/Sex: 59 / FADM Date: 08/22/24 Loc: A[facility] Attending Dr: Pardeep Marcos MD Ordering Physician: Pardeep Marcos MD Date of Service: 08/22/24 Procedure(s): US breast LT limited Accession Number(s): [id number] cc: Giana Isbell MD; Pardeep Marcos MD [...] 08/22/24 1348 DD/ 0908 TD/TT: 08/22/24 1042 Writer: [facility] External Provider IMG US PROCEDURES Final Result * ThinPrep Imaging Pap and HPV mRNA E6/E7 (10/25/2023 12:00 AM EDT) HPV nRNA E6/E7 Not Detected Not Detected [facility] Comment:Methodology: Transcr iption-Mediated AmplificationThis assay detects E6/E7 viral messenger RNA (mRNA) from 14high-risk HPV types (16,18,31,33,35,39,45,51,52,56,58,59,66,68).Cervical sources are required for HPV testing.If a vaginal source from a patient who has had atotal hysterectomy with removal of cervix wassubmitted, please contact the testing laboratoryfor alternative testing options.For additional information, please refer tohttp://education.MyLikes/faq/NWZ165h9(This link if provided for information/educational purposes only.)THIS TEST WAS PERFORMED AT:[employer] [place] [phone] FISCHER MD SOURCE: SEE NOTE [facility] Comment:None given Report Status: [facility] Clinical Information: SEE NOTE [facility] Comment:None given LMP: SEE NOTE [facility] Comment:NONE GIVEN Prev. PAP: SEE NOTE [facility] Comment:NONE GIVEN Prev. BX: SEE NOTE [facility] Comment:NONE GIVEN Statement Of Adequacy: SEE NOTE [facility] Comment:Satisfactory for tiffany luation.Endocervical/transformation zone componentpresent. General Categorization: [facility] Interpretation/Result: SEE NOTE [facility] Comment:Cytology Results: Ne gative for intraepitheliallesion or malignancy. Cytology Comment SEE NOTE [facility] Comment:This Pap test has be en evaluated with computerassisted technology. Documentation Clerk: SEE NOTE [facility] Comment:YP, CT(ASCP)CT aniya christian location: [place] [address] Review Documentation Clerk: [facility] Pathologist [facility] PAP Infection [facility] See Note SEE NOTE [facility] Comment:EXPLANATORY NOTE:The Pap is a screening test for cervical cancer. It isnot a diagnostic test and is subject to false negativeand false positive results. It is most reliable when asatisfactory sample, regularly obtained, is submittedwith relevant clinical findings and history, and whenthe Pap result is evaluated along with historic andcurrent clinical information. 10/25/2023 10/25/2023 Narrative [facility] - 11/01/2023 12:30 PM EDT SEE SCANNED RESULTS IN EMR us Lou Gonzalez MD LAB PATHOLOGY ORDERABLES Ashlyn l Result Performing Organization Address [facility] Co de Phone Number [facility] [address] [place] [phone] * Hepatitis Panel, General (01/13/2023 9:50 AM EST) Hepatitis A IgM Nonreactive Nonreactive [facility] Comment:IgM antibodies to RUELAS V not detected; does not exclude earlyacute or recovered HAV infection. ~Hepatitis B Surface Antibody NONREACTIVE Nonreactive [facility] Comment:Nonreactive: < 8.00 mIU/mL Hepatitis B Core Antibody Nonreactive Nonreactive [facility] Hepatitis C Antibody Nonreactive Nonreactive [facility] Comment:Antibodies to HCV no t detected; does not exclude early acuteHCV infection. Hepatitis B Surface Ag Negative Negative [facility] 01/13/2023 9:50 AM EST 01/13/2023 9:52 AM EST us Generic External Data Provider LAB BLOOD ORDERAB LES Final Result Performing Organization Address [facility]/ZIP Co de Phone Number [facility] [address] [place] [phone] * (ABNORMAL) LIPID PANEL, STANDARD (08/04/2021 [...] factors. LDL-C is now calculated using the Donna calculation, which is a validated novel method providing better accuracy than the Friedewald equation in the estimation of LDL-C. Esteban JACOBS et al. NIC. 2013;310(19): 1873-1662 (http://education.Codasip.Enablence Technologies/faq/CVZ566) Non-HDL Cholesterol 188(H) <130 mg/dL (calc) [facility] Comment: For patients with diabetes plus 1 major ASCVD risk factor, treating to a non-HDL-C goal of <100 mg/dL (LDL-C of <70 mg/dL) is considered a therapeutic option. Triglycerides 189(H) <150 mg/dL [facility] 08/04/2021 9:06 AM EDT Giana Isbell MD LAB BLOOD ORDERABLES Final Result Performing Organization Address City/State/[facility] Co de Phone Number [facility] [address] * Colonoscopy (12/02/2015) Colonoscopy Normal Normal Narrative Lily Sanchez - 12/02/2015 Recommended 10 year follow up Historical Provider HEALTH MAINTENANCE Final Result from Last 3 Months or Most Recently Relevant to Health Maintenance Insurance [facility] ONE CARE < 65 [facility] Care Teams Self Sealing Fuel Tank Repairer Relationship Specialty Start Date End Date Giana Isbell MD [address] [place] [address] PCP - General Internal Medicine 09/07/18
--- OUTSIDE RECORDS SUMMARY | 2024-12-07 10:48 | XMS_ITS | Clinical Summary ---
Author Organization [facility] Address [address] [place] [phone] Phone Care Team Providers Care Client Support Representative Name Role Phone Unknown, Unknown Primary Care [...] Encounters Date Type Department Care Team Description 12/04/2024 2:40 PM EDT Procedure visit [facility] Onc [address] [place] [address] Liz Mata MD Sheldon, John M, MD Malignant neoplasm of upper-outer quadrant of right breast in female, estrogen receptor positive (Primary Dx) 11/05/2024 12:00 PM EDT Office Visit [facility] At [address] [address] Liz Mata MD Malignant neoplasm of upper-outer quadrant of right breast in female, estrogen receptor positive (Primary Dx) 11/05/2024 Telephone [facility] At [address] [address] Liz Mata MD [facility] 11/05/2024 Documentation [facility] At [address] [address] Macrina Bishop, JESSICA 09/28/2024 1:00 PM EDT Office Visit [facility] At [address] [address] Liz Mata MD Miranda-Leon, Wisinley Malignant neoplasm of upper-outer quadrant of right breast in female, estrogen receptor positive (Primary Dx) 09/10/2024 Ancillary Orders [facility]Outside Imaging [address] [place] [address] Unknown, Unknown, 09/10/2024 Ancillary Orders [facility] [address] [place] [address] Unknown, Unknown, MD 09/10/2024 Ancillary Orders [facility] Imaging [address] [place] [address] Unknown, Unknown, 09/10/2024 Ancillary Orders [facility] [address] [place] [address] Unknown, Unknown, 09/10/2024 Ancillary Orders [facility] Imaging [address] [place] [address] Unknown, Unknown, 09/10/2024 Ancillary Orders [facility] Imaging [address] [place] [address] Unknown, Unknown, 09/10/2024 Ancillary Orders [facility] Imaging [address] [place] [address] Unknown, Unknown, 09/10/2024 Ancillary Orders [facility] Imaging [address] [place] [address] Unknown, Liz, 09/10/2024 Ancillary Orders [facility] [address] [place] [address] Unknown, Unknown, 09/10/2024 Ancillary Orders [facility] Imaging [address] [place] [address] Unknown, Liz, 09/10/2024 Ancillary Orders [facility] Imaging [address] [place] [address] Unknown, Unknown, from Last 3 Months Family History Medical [...] Info) Description 12/07/2024 2:20 PM EDT Treatment [facility] At [address] [address] Liz Mata MD [address] [place] [address] 12/10/2024 2:20 PM EST Treatment [facility] At [address] [address] Liz Mata MD [address] [place] [address] 12/11/2024 2:20 PM EST Treatment [facility] At [address] [address] Liz Mata MD [address] [place] [address] 12/11/2024 2:40 PM EST Procedure visit [facility] At [facility] Rad Onc [address] [place] [address] Liz Mata MD [address] [place] [address] 12/12/2024 2:20 PM EST Treatment [facility] At [facility] Rad Onc [address] [place] [address] Liz Mata MD [address] [place] [address] 12/13/2024 2:20 PM EST Treatment [facility] At [facility] Rad Onc [address] [place] [address] Liz Mata MD [address] [place] [address] 12/14/2024 2:20 PM EST Treatment [facility] [address] [place] [address] Liz Mata MD [address] [place] [address] 12/17/2024 2:20 PM EST Treatment [facility] At [facility] Rad Onc [address] [place] [address] Liz Mata MD [address] [place] [address] 12/18/2024 2:20 PM EST Treatment [facility] At [facility] Rad Onc [address] [place] [address] Liz Mata MD [address] [place] [address] 12/18/2024 2:40 PM EST Procedure visit [facility] At [facility] Rad Onc [address] [place] [address] Liz Mata MD [address] [place] [address] 12/19/2024 2:30 PM EST Treatment [facility] At [facility] Rad Onc [address] [place] [address] Liz Mata MD [address] [place] [address] 12/20/2024 2:20 PM EST Treatment [facility] At [facility] Rad Onc [address] [place] [address] Liz Mata MD [address] [place] [address] 12/21/2024 2:20 PM EST Treatment [facility] At [facility] Rad Onc [address] [place] [address] Liz Mata MD [address] [place] [address] 12/24/2024 2:20 PM EST Treatment [facility] At [facility] Rad Onc [address] [place] [address] Liz Mata MD [address] [place] [address] 12/25/2024 2:20 PM EST Treatment [facility] At [facility] Rad Onc [address] [place] [address] Liz Mata MD [address] [place] [address] 12/25/2024 2:40 PM EST Procedure visit [facility] At [facility] Rad Onc [address] [place] [address] Liz Mata MD [address] [place] [address] 12/26/2024 2:20 PM EST Treatment [facility] At [facility] Rad Onc [address] [place] [address] Liz Mata MD [address] [place] [address] 12/27/2024 2:20 PM EST Treatment [facility] At [facility] Rad Onc [address] [place] [address] Liz Mata MD [address] [place] [address] 12/28/2024 2:20 PM EST Treatment [facility] At [facility] Rad Onc [address] [place] [address] Liz Mata MD [address] [place] [address] 12/31/2024 2:20 PM EST Treatment [facility] At [facility] Rad Onc [address] [place] [address] Liz Mata MD [address] [place] [address] 01/01/2025 2:20 PM EST Treatment [facility] At [facility] Rad Onc [address] [place] [address] Liz Mata MD [address] [place] [address] 01/01/2025 2:40 PM EST Procedure visit [facility] At [facility] Rad Onc [address] [place] [address] Liz Mata MD [address] [place] [address] 01/02/2025 2:20 PM EST Treatment [facility] At [facility] Rad Onc [address] [place] [address] Liz Mata MD [address] [place] [address] 01/07/2025 2:20 PM EST Treatment [facility] At [facility] Rad Onc [address] [place] [address] Liz Mata MD [address] [place] [address] 01/08/2025 2:20 PM EST Treatment [facility] At [facility] Rad Onc [address] [place] [address] Liz Mata MD [address] [place] [address] 01/08/2025 2:40 PM EST Procedure visit [facility] At [facility] Rad Onc [address] [place] [address] Liz Mata MD [address] [place] [address] Health Maintenance Due Date Last Done Comments [...] Priority Date/Time Associated Diagnosis Comments BI MAMMOGRAM OUTSIDE (NO INTERPRETATION) Routine 08/22/2024 12:00 AM EDT from Last 3 Months or Most Recently Relevant to Health Maintenance Results * Mammogram Outside (No Interpretation) (08/22/2024 12:00 AM EDT) Narrative SYSTEMGENERATED, DOCUMENTATION - 09/10/2024 11:00 AM EDT This study is for PACS storage only and not for interpretation. us Unknown Unknown MD HENRANDEZ OUTSIDE IMAGING W/OUT INT ERPRETATION Final Result from Last 3 Months or Most Recently Relevant to Health Maintenance Insurance CARE MEDICARE REPLACEMENT MEDICARE REPLACEMENT Care Teams Client Support Representative Relationship Specialty Start Date End Date Unknown, Unknown, PCP - General 03/18/17 Additional Source Comments The information contained in this document represents components of the legal health record. It is not the complete legal health record.[facility]
--- OUTSIDE RECORDS SUMMARY | 2024-12-07 10:48 | XMS_ITS | Encounter Summary ---
Author Organization [employer] Address [address] [facility] [address] [place] [address] Care Team Providers Care Care Attendant Name Role Phone Giana Isbell MD Primary Care Provider [phone] Encounter Details Date Type Department Care Team (Latest Contact Info) Description 02/16/2019 Abstract [facility] CONVERSIONS Dental, Provider, DDS Social [...] Description 02/11/2025 3:15 PM EST Office Visit [facility] MED [facility] PEDS [address] [place] [address] Giana Isbell MD [address] [place] [address] documented as of this encounter Visit Diagnoses Not on filedocumented in this encounter Care Teams Care Attendant Relationship Specialty Start Date End Date Giana Isbell MD [address] [place] [address] PCP - General Internal Medicine 09/07/18 documented as of this encounter
--- OUTSIDE RECORDS SUMMARY | 2024-12-07 10:48 | XMS_ITS | Encounter Summary ---
Author Organization [employer] Address [address] [facility] 7t [place] [address] Care Team Providers Care Network Firewall Engineer Name Role Phone Giana Isbell MD Primary Care Provider [phone] [phone] Reason for Visit * Reason Onset Date Comments Nurse Triage 08/02/2023 Encounter Details Date Type Department Care Team ([facility] Contact Info) Description 08/02/2023 Telephone [facility] [address] [place] [address] Giana Isbell MD [address] [place] [address] Nurse Triage Social History Tobacco Use Types [...] 08/02/2023 10:38 AM EDT Triage call with [place] Typesetter Perforator Operator ID [id number] Pt reports a small lump in the corner of lower left eye lid. Pt reports it is red, itchy, painful. This doesn't effect vision and Pt has never had this before. Pt has had this for more than a week and it is increasing in size. No available apts ion [facility] . Pt is advised to come to [facility] to be seen by provider and [...] Description 02/11/2025 3:15 PM EST Office Visit [facility] MED & PEDS [address] [place] [address] Giana Isbell MD [address] [place] [address] documented as of this encounter Visit Diagnoses Not on filedocumented in this encounter Additional Health Concerns Assessment Noted Time PHQ-9 Depression Total Score: 7 07/30/19 23 10:13 AM EDT documented as of this encounter Care Teams Network Firewall Engineer Relationship Specialty Start Date End Date Giana Isbell MD [address] [place] [address] PCP - General Internal Medicine 09/07/18 documented as of this encounter
--- OUTSIDE RECORDS SUMMARY | 2024-12-07 10:49 | XMS_ITS | Encounter Summary ---
Author Organization [employer] Address [address] [facility] 7t [place] [address] Care Team Providers Care Cell Tester Name Role Phone Giana Isbell MD Primary Care Provider [phone]- [phone] Reason for Visit * Reason Onset Date Comments Results 12/06/2024 Encounter Details Date Type Department Care Team ([facility] Contact Info) Description 12/06/2024 Telephone [facility] MEDICINE [address] [place] [address] Giana Isbell MD [address] [place] [address] Results Social History Tobacco Use Types Packs/Day Years [...] encounter Miscellaneous Notes * Telephone Encounter - Alejandra Rudy - 12/06/2024 2:44 PM EDT Tc from pt requesting a call back with lab results. Pcp Dr. Deluca documented in this encounter Plan of Treatment Upcoming Encounters Date Type Department Care Team (Late st Contact Info) Description 02/11/2025 3:15 PM EST Office Visit [facility] MED & PEDS [address] [place] [address] Giana Isbell MD [address] [place] [address] documented as of this encounter Visit Diagnoses Not on filedocumented in this encounter Additional Health Concerns Assessment Noted Time PHQ-9 Depression Total Score: 24 025 9:26 AM EST documented as of this encounter Care Teams Cell Tester Relationship Specialty Start Date End Date Giana Isbell MD [address] [place] [address] PCP - General Internal Medicine 09/07/18 documented as of this encounter
--- OUTSIDE RECORDS SUMMARY | 2024-12-07 10:49 | XMS_ITS | Encounter Summary ---
Author Organization [employer] Address [address] [facility] 7[address] [place] [address] Care Team Providers Care Customer Success Advocate Name Role Phone Giana Isbell MD Primary Care Provider [phone] [phone] Encounter Details Date Type Department Care Team ([facility] Contact Info) Description 02/17/2024 Orders Only [facility] [address] [place] [address] Provider, MD Kathi Social History Tobacco Use [...] 3:15 PM EST Office Visit [facility] MED & PEDS [address] [place] [address] Giana Isbell MD [address] [place] [address] documented as of this encounter Procedures Procedure [...] documented as of this encounter Care Teams Customer Success Advocate Relationship Specialty Start Date End Date Giana Isbell MD [address] [place] [address] PCP - General Internal Medicine 09/07/18 documented as of this encounter
--- OUTSIDE RECORDS SUMMARY | 2024-12-07 10:49 | XMS_ITS | Encounter Summary ---
Author Organization [employer] Address [address] [facility] 7t [place] [address] Care Team Providers Care Design Transferrer Name Role Phone Giana Isbell MD Primary Care Provider [phone]- [phone] Encounter Details Date Type Department Care Team (Latest Contact Info) Description 02/15/2018 Abstract [facility] CONVERSIONS Dental, Provider, DDS Social History Tobacco [...] Description 02/11/2025 3:15 PM EST Office Visit [facility] MED & PEDS [address] [place] [address] Giana Isbell MD [address] [place] [address] documented as of this encounter Visit Diagnoses Not on filedocumented in this encounter Care Teams Design Transferrer Relationship Specialty Start Date End Date Giana Isbell MD [address] [place] [address] PCP - General Internal Medicine 09/07/18 documented as of this encounter
--- OUTSIDE RECORDS SUMMARY | 2024-12-07 10:49 | XMS_ITS | Encounter Summary ---
Author Organization [employer] Address [address] [facility] [address] [place] [address] Care Team Providers Care Warehouse Guard Name Role Phone Giana Isbell MD Primary Care Provider [phone]- [phone] Reason for Visit * Reason Comments Med Refill Encounter Details Date Type Department Care Team ([facility] Contact Info) Description 03/31/2022 Refill [facility] MED & PEDS [address] [place] [address] Giana Isbell MD [address] [place], [place] [phone] Acquired hypothyroidism (Primary Dx); Other constipation; Depressive [...] Upcoming Encounters Date Type Department Care Team ([facility] Contact Info) Description 02/11/2025 3:15 PM EST Office Visit [facility] MED & PEDS [address] [place] [address] Giana Isbell MD [address] [place], [place] [phone] documented as of this encounter Visit Diagnoses Diagnosis Acquired hypothyroidism- Primary Unspecified hypothyroidism Other constipation Depressive disorder Depressive disorder, not elsewhere classified Seasonal allergies Allergic rhinitis, cause unspecified Migraine without aura and without status migrainosus, not intractable documented in this encounter Care Teams Warehouse Guard Relationship Specialty Start Date End Date Giana Isbell MD [address] [place] [address] PCP - General Internal Medicine 09/07/18 documented as of this encounter
--- OUTSIDE RECORDS SUMMARY | 2024-12-07 10:49 | XMS_ITS | Encounter Summary ---
Author Organization [employer] Address [address] [facility] 7t [place] [address] Care Team Providers Care Health And Safety Coordinator Name Role Phone Giana Isbell MD Primary Care Provider [phone]- [phone] Reason for Visit * Reason Onset Date Comments Nurse Triage 03/01/2023 Encounter Details Date Type Department Care Team ([facility] st Contact Info) Description 03/01/2023 Telephone [facility] MEDICINE [address] [place] [address] Giana Isbell MD [address] [place], [place] [phone] Nurse Triage Social History Tobacco Use Types [...] 03/01/2023 12:46 PM EST Triage call with [employer] Maintenance Worker ID [id number] Pt reports having surgery and not having any pain medication. Pt had a partial left thyroidectomy 02/28/23 @ [facility] and oxycodone 5mg po was ordered . Prescription was sent to [facility] pharmacy. Pt was not aware of that [...] Description 02/11/2025 3:15 PM EST Office Visit [facility] MED & PEDS [address] [place] [address] Giana Isbell MD [address] [place] [address] documented as of this encounter Visit Diagnoses Not on filedocumented in this encounter Additional Health Concerns Assessment Noted Time PHQ-9 Depression Total Score: 7 07/30/19 23 10:13 AM EDT documented as of this encounter Care Teams Health And Safety Coordinator Relationship Specialty Start Date End Date Giana Isbell MD [address] [place] [address] PCP - General Internal Medicine 09/07/18 documented as of this encounter
--- OUTSIDE RECORDS SUMMARY | 2024-12-07 10:49 | XMS_ITS | Encounter Summary ---
Author Organization [employer] Address [address] [facility] [address] [place] [address] Care Team Providers Care Spray Applicator Name Role Phone Giana Isbell MD Primary Care Provider +1 [phone] Reason for Referral * Imaging (Urgent) - Closed Specialty Diagnoses / Procedures Referred By Ervin chávez Referred To Contact Radiology Diagnoses Elevated alkaline phosphatase level Procedures US Abdomen Complete Giana Isbell MD [address] [place] [address] Phone: tel: fax: [address] Phone: tel: fax: Referral ID Status Reason Start Date Expiration Date Visits Re quested Visits Authorized [id number] Closed 02/17/2023 02/17/2024 1 1 Encounter Details Date Type Department Care Team (Late st Contact Info) Description 02/17/2023 Orders Only [facility] MED & PEDS [address] [place], [place] [phone] Giana Isbell MD [address] [place], [place] [phone] Elevated alkaline phosphatase level (Primary Dx); Left [...] 3:15 PM EST Office Visit [facility] MED & PEDS [address] [place] [address] Giana Isbell MD [address] [place], [place] [phone] documented as of this encounter Procedures Procedure Name Priority Date/Time Associated Diagnosis Comments US ABDOMEN COMPLETE Urgent 03/21/2023 9 :29 AM EST Elevated alkaline phosphatase level documented in this encounter Results * US Abdomen Complete (03/21/2023 9:29 AM EST) Anatomical Region Laterality Modality Abdomen Ultrasound 03/21/2023 9:29 AM EST Narrative 03/22/2023 9:16 AM EST [address] [address] Ultrasound Report Signed Patient: Tory Bush MR#: [id number] : 1965 Acct:[id number] Age/Sex: 57 / F ADM Date: 03/21/23 Loc: HO.US Attending Dr: Giana Isbell MD Ordering Physician: Giana Isbell MD Date of Service: 03/21/23 Procedure(s): US abdomen complete Accession Number(s): [id number] cc: Giana Isbell MD EXAMINATION: US ABDOMEN [...] MD in OV> 03/22/23911 DD/ 8 TD/TT: Dental Technician Instructor: Procedure Note Donotuseinterpreter, Image - 03/22/2023 [place] [id number] Ultrasound Report Signed Patient: Pat Bush#: [id number] : 1965Acct:[id number] Age/Sex: 57 / FADM Date: 03/21/23 Loc: HO.US Attending Dr: Giana Isbell MD Ordering Physician: Giana Isbell MD Date of Service: 03/21/23 Procedure(s): US abdomen complete Accession Number(s): [id number] cc: Giana Isbell MD EXAMINATION: US ABDOMEN [...] MD in OV> 03/22/23911 DD/ 8 TD/TT: Dental Technician Instructor: us Giana Isbell MD IMG US PROCEDURES Final Res ult documented in this encounter Visit Diagnoses Diagnosis Elevated alkaline phosphatase level- Primary Left upper quadrant abdominal pain documented in this encounter Additional Health Concerns Assessment Noted Time PHQ-9 Depression Total Score: 7 07/30/19 23 10:13 AM EDT documented as of this encounter Care Teams Spray Applicator Relationship Specialty Start Date End Date Giana Isbell MD [address] [place] [address] PCP - General Internal Medicine 09/07/18 documented as of this encounter
== END 2024-12-07 10:44 | disposition home or self-care (01) ==
LOC: HO.ENCR 09:40
PROVIDERS: PCP Internal Medicine; Visit Provider Student in an Organized Health Care Education/Training Program
DX: E89.0 Postprocedural hypothyroidism (principal)
CPT/HCPCS: 99213

== ENCOUNTER → 2024-12-07 10:47 | Outpatient (BNV) | payer OTHER, SELFPAY | PROVIDERS: Absent Provider Internal Medicine; PCP Internal Medicine; Visit Provider Radiology Diagnostic Radiology | DX: M47.816 Spondylosis without myelopathy or radiculopathy, lumbar region (principal); K59.00 Constipation, unspecified | CPT/HCPCS: 72110; 74018 ==